=== PATIENT | female | born 1945 | race Caucasian/White ===

== ENCOUNTER 2017-05-28 12:03 | Inpatient (IN) | payer MEDICARE, BC ==
[2017-05-28] MEDS ORDERED: DILTIAZEM 5 MG/ML 5 ML VIAL IVP STA ×2 (12:31→13:32)
[2017-05-28] MEDS ORDERED: IPRATROPIUM-ALBUTEROL 3 ML NEB INHALATION STA (12:33)
--- NOTE | 2017-05-28 12:34 | ED ---
General Adult HPI - General Chief complaint: Shortness of Breath Stated complaint: ANGELICA, swollen feet Time Seen by Provider: 05/28/17 12:26 Source: patient, family, RN notes reviewed Mode of arrival: wheelchair Limitations: no limitations - History of Present Illness Initial comments: Patient is a pleasant 71-year-old female presenting to the emergency department with difficulty in breathing. Symptoms have progressed over weeks. Patient states she was in the hospital weeks ago and believe she may have had fluid on her lungs. Patient does complain of some swelling of her legs which is somewhat new. No chest pain. No palpitations. Patient has no known history of any arrhythmia or atrial fibrillation. Symptoms have progressively worsened since onset. - Related Data Home Medications Medication Instructions Recorded Confirmed Metoprolol Tartrate [Lopressor] 50 mg PO DAILY 12/06/14 05/28/17 amLODIPine [Norvasc] 10 mg PO DAILY 12/06/14 05/28/17 Albuterol Inhaler [Ventolin Hfa 1 - 2 puff INHALATION RT-Q6H PRN 04/30/17 Inhaler] Atorvastatin Calcium [Lipitor] 20 mg PO HS 04/30/17 05/28/17 Calcitriol 0.25 mcg PO SA 04/30/17 05/28/17 Sertraline HCl [Zoloft] 50 mg PO DAILY 04/30/17 05/28/17 Ergocalciferol [Vitamin D2] 50,000 unit PO Q14D 05/28/17 05/28/17 Previous Rx's Medication Instructions Recorded hydrALAZINE HCL [Apresoline] 75 mg PO TID #90 tab 05/02/17 Allergies Allergy/AdvReac Type Severity Reaction Status Date / Time No Known Allergies Allergy Verified 05/28/17 13:16 Review of Systems ROS Statement: Those systems with pertinent positive or pertinent negative responses have been documented in the HPI. ROS Other: All systems not noted in ROS Statement are negative. Constitutional: Denies: fever Eyes: Denies: eye pain ENT: Denies: ear pain Respiratory: Reports: dyspnea Cardiovascular: Denies: chest pain Endocrine: Reports: fatigue Gastrointestinal: Denies: abdominal pain Genitourinary: Denies: dysuria Musculoskeletal: Denies: back pain Skin: Denies: rash Neurological: Denies: weakness Past Medical History Past Medical History: Asthma, COPD, CVA/TIA, Hyperlipidemia, Hypertension, Osteoarthritis (OA), Rheumatoid Arthritis (RA) History of Any Multi-Drug Resistant Organisms: None Reported Past Surgical History: Tonsillectomy Additional Past Surgical History / Comment(s): broken ankle 40 years ago, IUD removal, lumbar steroid injections Past Anesthesia/Blood Transfusion Reactions: No Reported Reaction Past Psychological History: No Psychological Hx Reported Smoking Status: Former smoker Past Alcohol Use History: None Reported Past Drug Use History: None Reported - Past Family History Mother Additional Family Medical History / Comment(s): Mother in her 80s from abdominal aortic aneurysm. Father Family Medical History: Myocardial Infarction ([place]) Additional Family Medical History / Comment(s): Father at age 52 from acute ID. Patient has 1 brother that is healthy. Patient does not have any children. General Exam Limitations: no limitations General appearance: alert Head exam: Present: atraumatic Eye exam: Present: normal appearance, PERRL ENT exam: Present: normal oropharynx Neck exam: Present: normal inspection Respiratory exam: Present: wheezes Cardiovascular Exam: Present: tachycardia, irregular rhythm Expanded Peripheral pulses: 2+: Radial (R), Radial (L), Dorsalis Pedis (R), Dorsalis Pedis (L) GI/Abdominal exam: Present: soft. Absent: tenderness Extremities exam: Present: pedal edema (+3 bilateral). Absent: calf tenderness Neurological exam: Present: alert Psychiatric exam: Present: normal affect, normal mood Skin exam: Present: normal color Course Vital Signs 05/28/17 05/28/17 05/28/17 12:07 12:40 12:45 Temperature 97.5 F L Pulse Rate 148 H 123 H Respiratory 22 24 Rate Blood Pressure 119/78 O2 Sat by Pulse 92 L Oximetry 05/28/17 05/28/17 05/28/17 12:47 12:48 13:39 Temperature Pulse Rate 153 H 133 H 151 H Respiratory 22 20 Rate Blood Pressure 158/100 141/78 O2 Sat by Pulse 100 98 Oximetry 05/28/17 14:24 Temperature Pulse Rate 145 H Respiratory 18 Rate Blood Pressure 159/99 O2 Sat by Pulse 98 Oximetry EKG Findings - EKG Comments: EKG Findings:: A. fib with RVR, rate 178. QRS 92. QT 260. QTC 447. Normal axis. Septal Q waves. Inferior and lateral ST depression. Medical Decision Making - Medical Decision Making Patient reevaluated and resting in bed. Mild improvement. Heart rate between 120 and 150. Cardizem drip increased. Patient updated on results and plan. Case was discussed in detail with Dr. urrutia, who will admit for Dr. Desai. Consults will be placed with pulmonary and cardiology. - Lab Data Result diagrams: 05/28/17 12:30 05/28/17 12:30 Lab Results 05/28/17 05/28/17 05/28/17 Range/Units 12:30 12:30 12:30 WBC 11.2 H (3.8-10.6) k/uL RBC 3.77 L (3.80-5.40) m/uL Hgb 11.1 L (11.4-16.0) gm/dL Hct 36.3 (34.0-46.0) % MCV 96.3 (80.0-100.0) fL MCH 29.5 (25.0-35.0) pg MCHC 30.7 L (31.0-37.0) g/dL RDW 15.1 (11.5-15.5) % Plt Count 430 (150-450) k/uL Neutrophils % 78 % Lymphocytes % 12 % Monocytes % 7 % Eosinophils % 1 % Basophils % 0 % Neutrophils # 8.7 H (1.3-7.7) k/uL Lymphocytes # 1.4 (1.0-4.8) k/uL Monocytes # 0.8 (0-1.0) k/uL Eosinophils # 0.1 (0-0.7) k/uL Basophils # 0.0 (0-0.2) k/uL Hypochromasia Moderate PT (9.0-12.0) sec INR (<1.2) APTT (22.0-30.0) sec Sodium 138 (137-145) mmol/L Potassium 3.4 L (3.5-5.1) mmol/L Chloride 99 (98-107) mmol/L Carbon Dioxide 25 (22-30) mmol/L Anion Gap 14 mmol/L BUN 24 H (7-17) mg/dL Creatinine 1.20 H (0.52-1.04) mg/dL Est GFR (MDRD) Af Amer 54 (>60 ml/min/1.73 sqM) Est GFR (MDRD) Non-Af 44 (>60 ml/min/1.73 sqM) Glucose 159 H (74-99) mg/dL Calcium 9.4 (8.4-10.2) mg/dL Magnesium 1.9 (1.6-2.3) mg/dL Total Bilirubin 0.3 (0.2-1.3) mg/dL AST 34 (14-36) U/L ALT 97 H (9-52) U/L Alkaline Phosphatase 87 (38-126) U/L Total Creatine Kinase 57 (30-135) U/L CK-MB (CK-2) 1.5 (0.0-2.4) ng/mL CK-MB (CK-2) Rel Index 2.6 Troponin I 0.017 (0.000-0.034) ng/mL NT-Pro-B Natriuret Pep pg/mL Total Protein 6.3 (6.3-8.2) g/dL Albumin 3.8 (3.5-5.0) g/dL TSH 0.557 (0.465-4.680) mIU/L Free T4 1.56 (0.78-2.19) ng/dL Free T3 pg/mL 3.5 (2.8-5.3) pg/ml 05/28/17 05/28/17 Range/Units 12:30 12:30 WBC (3.8-10.6) k/uL RBC (3.80-5.40) m/uL Hgb (11.4-16.0) gm/dL Hct (34.0-46.0) % MCV (80.0-100.0) fL MCH (25.0-35.0) pg MCHC (31.0-37.0) g/dL RDW (11.5-15.5) % Plt Count (150-450) k/uL Neutrophils % % Lymphocytes % % Monocytes % % Eosinophils % % Basophils % % Neutrophils # (1.3-7.7) k/uL Lymphocytes # (1.0-4.8) k/uL Monocytes # (0-1.0) k/uL Eosinophils # (0-0.7) k/uL Basophils # (0-0.2) k/uL Hypochromasia PT 10.9 (9.0-12.0) sec INR 1.1 (<1.2) APTT 21.9 L (22.0-30.0) sec Sodium (137-145) mmol/L Potassium (3.5-5.1) mmol/L Chloride (98-107) mmol/L Carbon Dioxide (22-30) mmol/L Anion Gap mmol/L BUN (7-17) mg/dL Creatinine (0.52-1.04) mg/dL Est GFR (MDRD) Af Amer (>60 ml/min/1.73 sqM) Est GFR (MDRD) Non-Af (>60 ml/min/1.73 sqM) Glucose (74-99) mg/dL Calcium (8.4-10.2) mg/dL Magnesium (1.6-2.3) mg/dL Total Bilirubin (0.2-1.3) mg/dL AST (14-36) U/L ALT (9-52) U/L Alkaline Phosphatase (38-126) U/L Total Creatine Kinase (30-135) U/L CK-MB (CK-2) (0.0-2.4) ng/mL CK-MB (CK-2) Rel Index Troponin I (0.000-0.034) ng/mL NT-Pro-B Natriuret Pep 9130 pg/mL Total Protein (6.3-8.2) g/dL Albumin (3.5-5.0) g/dL TSH (0.465-4.680) mIU/L Free T4 (0.78-2.19) ng/dL Free T3 pg/mL (2.8-5.3) pg/ml - Radiology Data Radiology results: image reviewed (Chest x-ray shows cardiomegaly. Right effusion and atelectasis or infiltrate. 3.2 cm right mid lung mass.) Critical Care Time Critical Care Time: Yes Total Critical Care Time: 37 Disposition Clinical Impression: Atrial fibrillation with RVR, CHF (congestive heart failure) Disposition: ADMITTED IP TO THIS [facility] Condition: Serious Referrals: Soren Desai MD [Primary Care Provider] - 1-2 days Decision Time: 14:35
[2017-05-28] MEDS: DILTIAZEM 125 MG in SODIUM CHLORIDE 0.9% 100 ML IV ONE ×2 (12:44→23:14)
[2017-05-28 12:55] LABS: Basophils % (A) 0 %; Eosinophils # (A) 0.1 k/uL (0-0.7); Eosinophils % (A) 1 %; HCT 36.3 % (34.0-46.0); HGB 11.1 gm/dL (11.4-16.0); Hypochromasia Moderate; Lymphocytes # (A) 1.4 k/uL (1.0-4.8); Lymphocytes % (A) 12 %; MCH 29.5 pg (25.0-35.0); MCHC 30.7 g/dL (31.0-37.0); MCV 96.3 fL (80.0-100.0); Mean Platelet Volume 7.4; Monocytes # (A) 0.8 k/uL (0-1.0); Monocytes % (A) 7 %; Neutrophils # (A) 8.7 k/uL (1.3-7.7); Neutrophils % (A) 78 %; Platelet Count 430 k/uL (150-450); RBC 3.77 m/uL (3.80-5.40); RDW 15.1 % (11.5-15.5); WBC 11.2 k/uL (3.8-10.6)
[2017-05-28 13:06] LABS: Albumin 3.8 g/dL (3.5-5.0); Calcium 9.4 mg/dL (8.4-10.2); Magnesium 1.9 mg/dL (1.6-2.3); Potassium 3.4 mmol/L (3.5-5.1); Total Bilirubin 0.3 mg/dL (0.2-1.3); Total Protein 6.3 g/dL (6.3-8.2)
--- NOTE | 2017-05-28 13:08 | XR ---
EXAMINATION TYPE: XR chest 1V portable DATE OF EXAM: 05/28/2017 COMPARISON: Chest x-ray April 30, 2017. HISTORY: Shortness of breath TECHNIQUE: Single AP portable frontal upright view of the chest is obtained. FINDINGS: The osseous structures remain demineralized. There is stable mild cardiomegaly with athero sclerotic aorta. There is chronic emphysematous change with small right pleural effusion and associat ed right basilar atelectasis and/or infiltrate. There is more patchy left basilar atelectasis and/or infiltrate . There is stable 3.2 cm mass periphery right midlung. IMPRESSION: Cardiomegaly and chronic changes with small right pleural effusion and right greater harpreet n left bibasilar atelectasis and/or infiltrate. Stable 3.2 cm right lateral mid lung mass. Underlying neoplasm not excluded. Correlate clinically to determine need for follow-up CT. No significant encinas e from prior x-ray.
[2017-05-28 13:21] LABS: T4, Free (Free Thyroxine) 1.56 ng/dL (0.78-2.19)
[2017-05-28 13:23] LABS: INR 1.1 (<1.2); Partial Thromboplastin Time 21.9 sec (22.0-30.0); Prothrombin Time 10.9 sec (9.0-12.0)
[2017-05-28 13:24] LABS: Creatine Kinase MB 1.5 ng/mL (0.0-2.4); Troponin I 0.017 ng/mL (0.000-0.034)
[2017-05-28] MEDS ORDERED: ASPIRIN 325 MG TAB PO STA (14:39)
[2017-05-28] MEDS ORDERED: HEPARIN SODIUM,PORCINE 5,000 UNIT/ML 1 ML VIAL IV ONE (14:42)
[2017-05-28] MEDS ORDERED: HEPARIN SODIUM,PORCINE 5,000 UNIT/ML 1 ML VIAL IV PRN (14:42)
[2017-05-28] MEDS ORDERED: HEPARIN SOD,PORK IN 0.45% NACL 25,000 UNIT in 0.45% NACL 1 500ML.BAG IV SCH (14:45)
[2017-05-28] MEDS: FUROSEMIDE 10 MG/ML 4 ML VIAL IV SCH (15:10)
--- NOTE | 2017-05-28 15:10 | CT ---
EXAMINATION TYPE: CT chest wo con DATE OF EXAM: 05/28/2017 COMPARISON: NONE HISTORY: Patient complains of dyspnea. Lung mass seen on CXR today. CT DLP: 292.[address] of the chest was performed with lung and mediastinal window settings submitted. The la ck of contrast limits evaluation of the vascular, mediastinal and parenchymal structures including th e upper abdomen. LUNGS: Trapped fluid within the right major fissure compatible with pseudomass. Right-sided pleural e ffusion measuring 3.7 cm AP dimension with the small left-sided effusion measuring 1.6 cm in AP dimen hope. Mild associated compressive atelectasis. Upper lobe emphysematous changes [id number] in d egree. Linear atelectasis or parenchymal scar in the region of the left upper lobe. Groundglass right upper lobe nodular density measuring 4 mm. Several additional nonspecific tiny subpleural nodule see n. MEDIASTINUM/NEELIMA: Thoracic aorta is of normal caliber with limited evaluation given lack of contrast . The heart is enlarged. No evidence for mediastinal mass. No lymph nodes greater than 1cm. UPPER ABDOMEN: Atrophic changes left kidney. Renal vascular calcifications right kidney. OTHER: No significant other abnormality. IMPRESSION: 1. Transient fluid within the right major fissure resulting pseudomass. Bilateral pleural effusions. 2. Basilar compressive atelectasis. 3. Scattered nonspecific nodular densities. Consider follow-up study in 3-4 months.
[2017-05-28] MEDS ORDERED: NITROGLYCERIN OINT 1 INCH/GM PACKET TOPICAL SCH (18:00)
[2017-05-28] MEDS ORDERED: Potassium Replacement Protocol 1 EACH MISC MISCELLANE PRN (19:34)
[2017-05-28] MEDS ORDERED: POTASSIUM CHLORIDE ER 20 MEQ TAB.ER PO SCH (20:00)
--- NOTE | 2017-05-28 20:04 | HP ---
HISTORY AND PHYSICAL DATE OF ADMISSION: 05/28/2017 PRESENTING COMPLAINT: Short of breath. HISTORY OF PRESENTING COMPLAINT: This is a 71-year-old patient whose chronic stable medical conditions include rheumatoid arthritis, hyperlipidemia, hypertension, anxiety, depression. The patient was here in the middle of April with both CHF and COPD exacerbation. Two-D echocardiogram showed preserved LV function. Patient stopped smoking 3 years ago. The patient presents with 2 weeks of increasing shortness of breath, some wheezing, minimal cough. Appetite is good. Denies any fever, lower extremity edema. [place] her heart racing and decided to come in. Patient does use 2 pillows at night. The patient was found to be in congestive heart failure and atrial fibrillation with rapid ventricular rate. REVIEW OF SYSTEMS: CONSTITUTIONAL: Weak and tired. HEENT: None. RESPIRATORY: As above. CARDIOVASCULAR: As above. GASTROINTESTINAL: None. GENITOURINARY: None. MUSCULOSKELETAL: Pains in different joints. DERMATOLOGICAL: None. HEMATOLOGICAL: None. LYMPHATICS: None. PSYCHIATRY: None. NEUROLOGICAL: None. PAST MEDICAL HISTORY: 1. CHF, EF 55% to 60%. 2. COPD. 3. Rheumatoid arthritis. 4. Hyperlipidemia. 5. Hypertension. 6. Anxiety. 7. Depression. PAST SURGICAL HISTORY: 1. Tonsillectomy. 2. Ankle fracture with screws. 3. IUD removal. 4. Lumbar steroid injection. SOCIAL HISTORY: The patient smoked a pack and a half of cigarettes per day; started in 1973, stopped in 2014. Used to drink heavily in the past. . Lives with her . Has a walker and uses it occasionally. FAMILY HISTORY: Mother had myocardial infarction and from abdominal aortic aneurysm. HOME MEDICATIONS: 1. Vitamin D2 50,000 units every 14 days. 2. Calcitriol 0.25 mcg p.o. on Saturdays. 3. Lipitor 20 mg at bedtime. 4. Hydralazine 75 mg p.o. t.i.d. 5. Norvasc 10 mg a day. 6. Zoloft 50 mg a day. 7. Lopressor 50 mg p.o. daily. 8. Ventolin HFA 1 to 2 puffs q.6 p.r.n. ALLERGIES: NONE. PHYSICAL EXAMINATION: VITAL SIGNS ON PRESENTATION: Temperature 97.5 pulse 140, respiration 22, blood pressure 109/78, pulse ox 92% on room air. GENERAL APPEARANCE: Average build. Sitting up, short of breath. EYES: Pupils equal. Conjunctivae normal. HEENT: Oral cavity normal. NECK: JVD raised. raised. Mass not palpable. RESPIRATORY: Effort increased. LUNGS: Diminished breath sounds. CARDIOVASCULAR: Heart sounds irregular. Edema present. ABDOMEN: Soft, nontender. Liver and spleen not palpable. LYMPHATIC: No lymph node palpable in neck or axillae. PSYCHIATRY: Alert and oriented x3. Mood and affect slightly anxious-appearing. NEUROLOGICAL: Pupils equal. Cranial nerves grossly intact. Power and sensation grossly intact. INVESTIGATIONS: White count 11.2, hemoglobin 11.1, potassium 3.4, BUN 24, creatinine 1.20. ProBNP is 9130. CT scan of the chest shows bilateral pleural effusion, scattered nodular densities. Chest x-ray shows and venous prominence. It is an A/P portable film. The patient did have a 2D echo a month ago that showed EF of 55% to 60%. ASSESSMENT: 1. Acute on chronic congestive heart failure exacerbation from diastolic dysfunction; ejection fraction 55% to 60%; from hypertensive heart disease. 2. Hypertensive heart disease. 3. Acute chronic obstructive pulmonary disease exacerbation in an ex-smoker. 4. Atrial fibrillation, new onset, with rapid ventricular rate, present on admission. 5. Chronic nodular changes on the CT scan of the chest; could be granulomas. 6. Chronic rheumatoid arthritis. 7. Hyperlipidemia. 8. Essential hypertension. 9. Anxiety and depression not otherwise specified. PLAN: Patient is on IV heparin, IV Cardizem drip. Will start the patient on nebulized bronchodilators. Other home medications will be resumed. Will hold off beta jil. Can probably use oral Cardizem instead. Consultations made to Cardiology and Pulmonary. Care was discussed with the patient. MMODL / IJN: [id number] /
[2017-05-28] MEDS: methylPREDNISolone SOD SUCCI 40 MG/ML 1 ML VIAL IV SCH (20:25)
[2017-05-28] MEDS: ATORVASTATIN 20 MG TAB PO SCH (20:34)
[2017-05-28] MEDS: BUDESONIDE 1 MG/2 ML NEBU INHALATION SCH (20:58)
[2017-05-28] MEDS ORDERED: METOPROLOL TARTRATE 25 MG TAB PO SCH (21:00)
[2017-05-28] MEDS ORDERED: ALPRAZolam 0.25 MG TAB PO STA (22:02)
[2017-05-28] MEDS: MELATONIN 3 MG TABLET PO SCH (22:17)
[2017-05-29] MEDS: methylPREDNISolone SOD SUCCI 40 MG/ML 1 ML VIAL IV SCH ×2 (03:27→08:03)
[2017-05-29 04:04] LABS: Basophils % (A) 0 %; Eosinophils % (A) 0 %; HCT 33.3 % (34.0-46.0); HGB 9.9 gm/dL (11.4-16.0); Hypochromasia Moderate; Lymphocytes # (A) 0.4 k/uL (1.0-4.8); Lymphocytes % (A) 5 %; MCH 28.8 pg (25.0-35.0); MCHC 29.8 g/dL (31.0-37.0); MCV 96.5 fL (80.0-100.0); Monocytes # (A) 0.2 k/uL (0-1.0); Monocytes % (A) 3 %; Neutrophils # (A) 7.6 k/uL (1.3-7.7); Neutrophils % (A) 92 %; Platelet Count 392 k/uL (150-450); RBC 3.45 m/uL (3.80-5.40); RDW 15.3 % (11.5-15.5); WBC 8.3 k/uL (3.8-10.6)
[2017-05-29] MEDS: INSULIN ASPART 100 UNIT/ML 1 ML 10 ML VIAL SQ SCH ×4 (06:14→21:40)
[2017-05-29 06:15] LABS: Glucose,Whole Blood 130 mg/dL (75-99)
[2017-05-29] MEDS: DILTIAZEM 125 MG in SODIUM CHLORIDE 0.9% 100 ML IV SCH ×2 (06:24→15:02)
[2017-05-29] MEDS: FUROSEMIDE 10 MG/ML 4 ML VIAL IV SCH ×3 (08:03→21:41)
[2017-05-29 08:31] LABS: Calcium 8.7 mg/dL (8.4-10.2); Magnesium 1.8 mg/dL (1.6-2.3); Potassium 4.2 mmol/L (3.5-5.1)
[2017-05-29] MEDS: BUDESONIDE 1 MG/2 ML NEBU INHALATION SCH ×2 (08:31→20:26)
[2017-05-29] MEDS ORDERED: ASPIRIN 325 MG TAB PO SCH (09:00)
--- NOTE | 2017-05-29 09:18 | P.CRDCN ---
History of Present Illness Consult date: 05/29/17 Requesting physician: Steve Hudson Reason for Consult (text): AF w/RVR, CHF Chief complaint: shortness of breath, lower extremity edema History of present illness: This is a pleasant 71-year-old female patient who follows with Dr. Solis in the office. Has a history of asthma, hypertension and recent admission for acute on chronic diastolic congestive heart failure. Presented this admission with complaints of worsening shortness of breath over about a week with lower extremity edema. Upon presentation she was found to be in atrial fibrillation with rapid ventricular response and was placed on a Cardizem drip heparin drip. BNP was quite elevated at 9130. Labs show normal thyroid function and negative troponins at 0.016, 0.017 and less than 0.012 and a BUN of 22 and creatinine 1.18. In reviewing her previous chart, echocardiogram showed normal LV systolic function with an ejection fraction of 55-60%. Vital signs show pressure initially high however fairly well controlled over the last several hours. Heart rates are poorly controlled on Cardizem 15 mg an hour. Upon examination, patient remainsshort of breath and complains of lower extremity edema. She has no complaints of dizziness or lightheadedness. Past Medical History Past Medical History: Asthma, CVA/TIA, Hyperlipidemia, Hypertension, Osteoarthritis (OA) Additional Past Medical History / Comment(s): ddd, copd/chf was previously charted but pt stated never told she had either.cva 2008 no residual problems. History of Any Multi-Drug Resistant Organisms: None Reported Past Surgical History: Tonsillectomy Additional Past Surgical History / Comment(s): broken ankle 40 years ago has [address], IUD removal, lumbar steroid injections Past Anesthesia/Blood Transfusion Reactions: No Reported Reaction Additional Past Anesthesia/Blood Transfusion Reaction / Comment(s): past blood transfusions-no reaction Smoking Status: Former smoker - Past Family History Mother Additional Family Medical History / Comment(s): Mother in her 80s from abdominal aortic aneurysm. Father Family Medical History: Myocardial Infarction (NC) Additional Family Medical History / Comment(s): Father at age 52 from acute NC. Patient has 1 brother that is healthy. Patient does not have any children. Medications and Allergies Home Medications Medication Instructions Recorded Confirmed Type Metoprolol Tartrate [Lopressor] 50 mg PO DAILY 12/06/14 05/28/17 History amLODIPine [Norvasc] 10 mg PO DAILY 12/06/14 05/28/17 History Albuterol Inhaler [Ventolin Hfa 1 - 2 puff INHALATION RT-Q6H PRN 04/30/17 History Inhaler] Atorvastatin Calcium [Lipitor] 20 mg PO HS 04/30/17 05/28/17 History Calcitriol 0.25 mcg PO SA 04/30/17 05/28/17 History Sertraline HCl [Zoloft] 50 mg PO DAILY 04/30/17 05/28/17 History hydrALAZINE HCL [Apresoline] 75 mg PO TID #90 tab 05/02/17 05/28/17 Rx Ergocalciferol [Vitamin D2] 50,000 unit PO Q14D 05/28/17 05/28/17 History Allergies Allergy/AdvReac Type Severity Reaction Status Date / Time No Known Allergies Allergy Verified 05/28/17 13:16 Physical Exam Vitals: Vital Signs Temp Pulse Pulse Resp BP BP BP 05/29/17 08:43 100 05/29/17 08:34 100 05/29/17 07:59 97 F L 108 H 20 05/29/17 04:00 18 05/29/17 03:38 97.2 F L 152 H 18 129/78 05/28/17 23:56 97 F L 150 H 18 130/80 05/28/17 21:08 100 05/28/17 20:59 114 H 05/28/17 20:00 97.3 F L 145 H 18 152/87 05/28/17 16:00 94 20 05/28/17 15:45 97.2 F L 94 16 155/91 05/28/17 15:15 97.4 F L 144 H 18 165/88 05/28/17 14:24 145 H 18 159/99 05/28/17 13:39 151 H 20 141/78 05/28/17 12:48 133 H 05/28/17 12:47 153 H 22 158/100 05/28/17 12:45 24 05/28/17 12:40 123 H 05/28/17 12:07 97.5 F L 148 H 22 119/78 BP Pulse Ox 05/29/17 08:43 05/29/17 08:34 97 05/29/17 07:59 139/69 97 05/29/17 04:00 05/29/17 03:38 97 05/28/17 23:56 97 05/28/17 21:08 05/28/17 20:59 99 05/28/17 20:00 99 05/28/17 16:00 05/28/17 15:45 94 L 05/28/17 15:15 97 05/28/17 14:24 98 05/28/17 13:39 98 05/28/17 12:48 05/28/17 12:47 100 05/28/17 12:45 05/28/17 12:40 05/28/17 12:07 92 L Intake and Output 05/28/17 05/29/17 05/29/17 22:59 06:59 14:59 Intake Total 141.000 213 180 Output Total 1999 Balance 141.000 213 -1820 Intake: Intake, IV Titration 141.000 213 Amount Diltiazem 125 mg In 39.667 73 Sodium Chloride 0.9% 100 ml @ 10 MG/HR 10 mls/hr IV .[id number] ONE Rx#: [id number] Heparin Sod,Pork in 0.45% 101.333 140 NaCl 25,000 unit In 0.45 % NaCl 1 500ml.bag @ 12 UNITS/KG/HR 16 mls/hr IV .Q24H [facility] Rx#:[id number] Oral 180 Output: Urine 2000 Other: # Voids 1 Weight 72.7 kg PHYSICAL EXAMINATION: HEENT: Head is atraumatic, normocephalic. Pupils equal, round. Neck is supple. There is elevated jugular venous pressure. HEART EXAMINATION: Heart sounds irregularly irregular, tachycardic, S1 and S2 normal. No murmur or gallop heard. CHEST EXAMINATION: Lungs wheezing throughout. No chest wall tenderness is noted on palpation or with deep breathing. ABDOMEN: Soft, nontender. Bowel sounds are heard. No organomegaly noted. EXTREMITIES: 2+ peripheral pulses with evidence of +2 peripheral edema and no calf tenderness noted. NEUROLOGIC patient is awake, alert and oriented x3. . Results 05/29/17 03:47 05/29/17 03:47 Cardiac Enzymes 05/28/17 05/28/17 05/28/17 Range/Units 12:30 12:30 21:02 AST 34 (14-36) U/L CK-MB (CK-2) 1.5 (0.0-2.4) ng/mL Troponin I 0.017 0.016 (0.000-0.034) ng/mL 05/29/17 Range/Units 03:47 AST (14-36) U/L CK-MB (CK-2) (0.0-2.4) ng/mL Troponin I <0.012 (0.000-0.034) ng/mL Coagulation 05/28/17 05/28/17 05/29/17 Range/Units 12:30 21:02 03:47 PT 10.9 (9.0-12.0) sec APTT 21.9 L 37.4 H 51.5 H (22.0-30.0) sec CBC 05/28/17 05/29/17 Range/Units 12:30 03:47 WBC 11.2 H 8.3 (3.8-10.6) k/uL RBC 3.77 L 3.45 L (3.80-5.40) m/uL Hgb 11.1 L 9.9 L (11.4-16.0) gm/dL Hct 36.3 33.3 L (34.0-46.0) % Plt Count 430 392 (150-450) k/uL Comprehensive Metabolic Panel 05/28/17 05/29/17 Range/Units 12:30 03:47 Sodium 138 136 L (137-145) mmol/L Potassium 3.4 L 4.2 (3.5-5.1) mmol/L Chloride 99 101 (98-107) mmol/L Carbon Dioxide 25 27 (22-30) mmol/L BUN 24 H 22 H (7-17) mg/dL Creatinine 1.20 H 1.18 H (0.52-1.04) mg/dL Glucose 159 H 143 H (74-99) mg/dL Calcium 9.4 8.7 (8.4-10.2) mg/dL AST 34 (14-36) U/L ALT 97 H (9-52) U/L Alkaline Phosphatase 87 (38-126) U/L Total Protein 6.3 (6.3-8.2) g/dL Albumin 3.8 (3.5-5.0) g/dL Current Medications Generic Name Dose Route Start Last Admin Trade Name Kalpana PRN Reason Stop Dose Admin Aspirin 325 mg 05/29/17 09:00 05/29/17 08:05 Aspirin PO 325 mg DAILY SIMON Administration Atorvastatin Calcium 20 mg 05/28/17 21:00 05/28/17 20:34 Lipitor PO 20 mg HS SIMON Administration Budesonide 1 mg 05/28/17 20:00 05/29/17 08:31 Pulmicort INHALATION 1 mg RT-BID SIMON Administration Furosemide 40 mg 05/28/17 15:00 05/29/17 08:03 Lasix IV 40 mg Q8HR SIMON Administration Heparin Sodium (Porcine) 0 unit 05/28/17 14:42 Heparin IV PER PROTOCOL PRN Low PTT Protocol Heparin Sodium/Sodium Chloride 500 mls @ 16 mls/hr 05/28/17 14:45 05/29/17 04 :34 25,000 unit/ Sodium Chloride IV 15 units/kg/hr .Q24H SIMON 20 mls/hr Protocol Titration 12 UNITS/KG/HR Diltiazem HCl 125 mg/ Sodium 125 mls @ 10 mls/hr 05/29/17 05:15 05/29/17 06: 24 Chloride IV 10 mg/hr .[id number] SIMON 10 mls/hr 10 MG/HR Administration Insulin Aspart 0 unit 05/29/17 07:30 05/29/17 06:14 Novolog SQ Not Given ACHS [facility] Protocol Melatonin 3 mg 05/28/17 22:15 05/28/17 22:17 Melatonin PO 3 mg HS SIMON Administration Methylprednisolone Sodium Succinate 40 mg 05/28/17 20:00 05/29/17 08:03 Solu-Medrol IV 40 mg Q8HR SIMON Administration Miscellaneous Information 1 each 05/28/17 19:34 Potassium Per Protocol MISCELLANE DAILY PRN Per Protocol Protocol Sertraline HCl 50 mg 05/29/17 09:00 Zoloft PO DAILY SIMON Sodium Chloride 10 ml 05/28/17 21:00 05/29/17 08:04 Saline Flush IV 10 ml BID SIMON Administration Intake and Output 05/28/17 05/29/17 05/29/17 22:59 06:59 14:59 Intake Total 141.000 213 180 Output Total 1999 Balance 141.000 213 -1820 Intake: Intake, IV Titration 141.000 213 Amount Diltiazem 125 mg In 39.667 73 Sodium Chloride 0.9% 100 ml @ 10 MG/HR 10 mls/hr IV .[id number] [facility] Rx#: [id number] Heparin Sod,Pork in 0.45% 101.333 140 NaCl 25,000 unit In 0.45 % NaCl 1 500ml.bag @ 12 UNITS/KG/HR 16 mls/hr IV .Q24H [facility] Rx#:[id number] Oral 180 Output: Urine 2000 Other: # Voids 1 Weight 72.7 kg 05/29/17 03:47 05/29/17 03:47 EKG Interpretations (text) Atrial Fibrillation with rapid ventricular response Assessment and Plan Assessment: #1 new onset atrial fibrillation with rapid ventricular response, likely paroxysmal #2 acute on chronic diastolic congestive heart failure, recent echocardiogram shows normal LV systolic function #3 asthma #4 hypertension Plan: From cardiology's perspective, continue IV Lasix and IV Cardizem drip. We will add amiodarone drip. We will check coverage for Eliquis and initiate if she has adequate coverage. We will is resume metoprolol 25 mg by mouth twice a day. Further recommendations to follow. KNOT BORER note has been reviewed, I agree with a documented findings and plan of care. Patient was seen and examined.
[2017-05-29] MEDS ORDERED: DEXTROSE 5% IN WATER 100 ML with AMIODARONE 150 MG IV ONE (09:32)
--- NOTE | 2017-05-29 09:47 | P.PN ---
Progress Note - Text This is an addendum to the dictated cardiology consultation. The patient has a history of hypertension, bronchial asthma who presents with symptoms of severe progressive dyspnea for the last week or so with weight gain and peripheral edema. On presentation she was noted to be in atrial fibrillation with a rapid ventricle response. She is unaware of the arrhythmia and when she was in the hospital in April 2017 she was in sinus mechanism. Patient has a normal systolic function by echocardiography in April. She has no symptoms of chest discomfort or documented obstructive coronary artery disease. She has mild cough but no fever. She denies any dizziness or palpitations or syncope. Her physical examination shows decrease air exchange with scattered wheezes, irregularly irregular heart rate and rhythm and 2+ peripheral edema. The patient presents with new onset atrial fibrillation since April of last year with a rapid ventricle response and symptoms of CHF was preserved systolic function. I will initiate treatment with IV amiodarone with the hope to control her ventricle rate and maybe convert her to sinus. We will initiate oral anticoagulation and continue IV diuresis. Depending on her progress further recommendations will be made. Thank you for this consult we will follow with you.
[2017-05-29] MEDS: APIXABAN 5 MG TAB PO SCH ×2 (11:24→21:06)
[2017-05-29] MEDS: SERTRALINE 50 MG TAB PO SCH (11:24)
[2017-05-29] MEDS: AMIODARONE 450 MG in DEXTROSE 5% IN WATER 250 ML IV SCH ×4 (11:55→21:01)
--- NOTE | 2017-05-29 12:12 | P.CNPUL ---
History of Present Illness Consult date: 05/29/17 Requesting physician: Steve Hudson Reason for consult: COPD, pleural effusion Chief complaint: difficulty in breathing History of present illness: this is a 71-year-old female with history of COPD, remote heavy smoking history , however she quit smoking a few years back. Patient used to be at least a 60- pack-year smoker, maintained normally on Ventolin for her underlying presumptive COPD by her primary care physician.patient presented to the ER yesterday with 1 week history of increased shortness of breath, nonproductive cough, increased swelling, some wheezing, but no fever no chills no hemoptysis no chest pain.upon presentation, the patient was noted to be in atrial fibrillation with RVR, and her chest x-ray showed evidence of bilateral pleural effusions, and fluids as noted in the right major fissure, looks like a pseudotumor. There was also evidence of bibasilar compressive atelectasis. And some bilateral nonspecific nodular densities. Her pro BNP level was elevated.CBC was normal. Basic metabolic profile was normal. Creatinine 1.20. Patient was placed on Cardizem drip and on heparin, she was also diuresed, feeling much better by the time I evaluated the patient this morning. Presently no headache no blurred vision no dizziness, no chest pain, denies any palpitations, no nausea no vomiting no abdominal pain no melena no hematemesis is no dysuria and no frequency no urgency. Review of Systems 14 point review of systems were obtained. Refer to pertinent positives and negatives as noted in HPI. Past Medical History Past Medical History: Asthma, CVA/TIA, Hyperlipidemia, Hypertension, Osteoarthritis (OA) Additional Past Medical History / Comment(s): ddd, copd/chf was previously charted but pt stated never told she had either.cva 2007 no residual problems. History of Any Multi-Drug Resistant Organisms: None Reported Past Surgical History: Tonsillectomy Additional Past Surgical History / Comment(s): broken ankle 40 years ago has [address], IUD removal, lumbar steroid injections Past Anesthesia/Blood Transfusion Reactions: No Reported Reaction Additional Past Anesthesia/Blood Transfusion Reaction / Comment(s): past blood transfusions-no reaction Smoking Status: Former smoker - Past Family History Mother Additional Family Medical History / Comment(s): Mother in her 80s from abdominal aortic aneurysm. Father Family Medical History: Myocardial Infarction (IA) Additional Family Medical History / Comment(s): Father at age 52 from acute IA. Patient has 1 brother that is healthy. Patient does not have any children. Medications and Allergies Home Medications Medication Instructions Recorded Confirmed Type Metoprolol Tartrate [Lopressor] 50 mg PO DAILY 12/06/14 05/28/17 History amLODIPine [Norvasc] 10 mg PO DAILY 12/06/14 05/28/17 History Albuterol Inhaler [Ventolin Hfa 1 - 2 puff INHALATION RT-Q6H PRN 04/30/17 History Inhaler] Atorvastatin Calcium [Lipitor] 20 mg PO HS 04/30/17 05/28/17 History Calcitriol 0.25 mcg PO SA 04/30/17 05/28/17 History Sertraline HCl [Zoloft] 50 mg PO DAILY 04/30/17 05/28/17 History hydrALAZINE HCL [Apresoline] 75 mg PO TID #90 tab 05/02/17 05/28/17 Rx Ergocalciferol [Vitamin D2] 50,000 unit PO Q14D 05/28/17 05/28/17 History Allergies Allergy/AdvReac Type Severity Reaction Status Date / Time No Known Allergies Allergy Verified 05/28/17 13:16 Physical Exam Vitals: Vital Signs Temp Pulse Pulse Resp BP BP BP 05/29/17 11:57 113 H 05/29/17 11:53 123 H 05/29/17 11:47 124 H 05/29/17 11:46 129 H 05/29/17 11:38 98.1 F 128 H 20 05/29/17 08:43 100 05/29/17 08:34 100 05/29/17 08:00 108 H 20 05/29/17 07:59 97 F L 108 H 20 05/29/17 04:00 18 05/29/17 03:38 97.2 F L 152 H 18 129/78 05/28/17 23:56 97 F L 150 H 18 130/80 05/28/17 21:08 100 05/28/17 20:59 114 H 05/28/17 20:00 97.3 F L 145 H 18 152/87 05/28/17 16:00 94 20 05/28/17 15:45 97.2 F L 94 16 155/91 05/28/17 15:15 97.4 F L 144 H 18 165/88 05/28/17 14:24 145 H 18 159/99 05/28/17 13:39 151 H 20 141/78 05/28/17 12:48 133 H 05/28/17 12:47 153 H 22 158/100 05/28/17 12:45 24 05/28/17 12:40 123 H 05/28/17 12:07 97.5 F L 148 H 22 119/78 BP Pulse Ox 05/29/17 11:57 148/109 05/29/17 11:53 148/93 05/29/17 11:47 147/76 05/29/17 11:46 146/82 05/29/17 11:38 149/90 98 05/29/17 08:43 05/29/17 08:34 97 05/29/17 08:00 05/29/17 07:59 139/69 97 05/29/17 04:00 05/29/17 03:38 97 05/28/17 23:56 97 05/28/17 21:08 05/28/17 20:59 99 05/28/17 20:00 99 05/28/17 16:00 05/28/17 15:45 94 L 05/28/17 15:15 97 05/28/17 14:24 98 05/28/17 13:39 98 05/28/17 12:48 05/28/17 12:47 100 05/28/17 12:45 05/28/17 12:40 05/28/17 12:07 92 L Intake and Output 05/28/17 05/29/17 05/29/17 22:59 06:59 14:59 Intake Total 141.000 213 180 Output Total 1999 Balance 141.000 213 -1820 Intake: Intake, IV Titration 141.000 213 Amount Diltiazem 125 mg In 39.667 73 Sodium Chloride 0.9% 100 ml @ 10 MG/HR 10 mls/hr IV .[id number] [facility] Rx#: [id number] Heparin Sod,Pork in 0.45% 101.333 140 NaCl 25,000 unit In 0.45 % NaCl 1 500ml.bag @ 12 UNITS/KG/HR 16 mls/hr IV .Q24H [facility] Rx#:[id number] Oral 180 Output: Urine 2000 Other: Voiding Method Bedside Commode # Voids 1 # Bowel Movements 1 Weight 72.7 kg Physical Exam: Revealed a 71-year-old female in no distress. HEENT:[Neck is supple.] [No neck masses.] [No thyromegaly.] [No JVD.] Chest: crackles at the bases, some wheezing noted on forced expiratory maneuver only.] Cardiac Exam: irregular irregular rhythm[Normal S1 and S2, no S3 gallop, no murmur.] Abdomen: [Soft, nontender, no megaly, no rebound, no guarding, normal bowel sounds.] Extremities: [No clubbing, 2+ bipedal edema, no cyanosis.]good distal pulses bilaterally. Neurological Exam: [No focal neurologic deficit.] lymphatics: No lymphadenopathy. Psychiatric: Slightly anxious, normal mood and affect, normal mental status examination. Results - Laboratory Findings CBC and BMP: 05/29/17 03:47 05/29/17 03:47 PT/INR, D-dimer PT 10.9 sec (9.0-12.0) 05/28/17 12:30 INR 1.1 (<1.2) 05/28/17 12:30 Abnormal lab findings: Abnormal Labs 05/28/17 05/28/17 05/28/17 12:30 12:30 12:30 WBC 11.2 H RBC 3.77 L Hgb 11.1 L Hct MCHC 30.7 L Neutrophils # 8.7 H Lymphocytes # APTT 21.9 L Sodium Potassium 3.4 L BUN 24 H Creatinine 1.20 H Glucose 159 H POC Glucose (mg/dL) ALT 97 H 05/28/17 05/29/17 05/29/17 21:02 03:47 03:47 WBC RBC 3.45 L Hgb 9.9 L Hct 33.3 L MCHC 29.8 L Neutrophils # Lymphocytes # 0.4 L APTT 37.4 H 51.5 H Sodium Potassium BUN Creatinine Glucose POC Glucose (mg/dL) ALT 05/29/17 05/29/17 03:47 06:13 WBC RBC Hgb Hct MCHC Neutrophils # Lymphocytes # APTT Sodium 136 L Potassium BUN 22 H Creatinine 1.18 H Glucose 143 H POC Glucose (mg/dL) 130 H ALT - Diagnostic Findings Chest x-ray: image reviewed CT scan - chest: image reviewed (as noted in HPI. Agree with reading as per radiology.) Assessment and Plan Assessment: impression: 1 acute on chronic diastolic congestive heart failure, recent echocardiogram showed good LV function. 2 new onset atrial fibrillation with RVR, patient is now on Cardizem and heparin. Rate seems to be better controlled. 3 history of COPD, severity of which is not clear, patient has been a heavy smoker over the years, must have outpatient follow-up, in the meantime continue updrafts in the form of albuterol and Atrovent. 4 right major fissure pseudotumor, strongly doubt malignancy. 5 nonspecific nodular densities in both lungs, repeat CT of the chest in 4 months on outpatient basis. 6 history of benign essential hypertension. Recommendation: Agree with the present treatment plan,continue updrafts, continue diuretics, continue Cardizem,will cut down the dose of Solu-Medrol, and since the presentation is mostly cardiac in nature.we'll continue to follow , we'll arrange for outpatient follow-up regarding her underlying COPD. Time with Patient: Greater than 30
[2017-05-29 12:23] LABS: Glucose,Whole Blood 152 mg/dL (75-99)
[2017-05-29] MEDS: METOPROLOL TARTRATE 25 MG TAB PO SCH ×2 (12:34→21:08)
[2017-05-29 14:51] VITALS: BMI 26.6
[2017-05-29] MEDS: ALBUTEROL NEBULIZED 2.5 MG/3 ML INHALATION SCH ×2 (16:27→20:28)
[2017-05-29 16:39] LABS: Glucose,Whole Blood 157 mg/dL (75-99)
--- NOTE | 2017-05-29 17:10 | P.PN ---
Progress Note - Text Progress Note Date: 05/29/17 DATE OF SERVICE: 05/29/2017 PRESENTING COMPLAINT: Shortness of breath HISTORY OF PRESENT ILLNESS: 71-year-old female presented with 2 weeks of increasing shortness of breath some wheezing minimal cough, does not have any fever or lower extremity edema, felt her heart racing and decided to come in. Uses 2 pillows at night. Found to be in congestive heart failure with atrial fibrillation with rapid ventricular rate admitted for the same. Placed on a Cardizem drip and heparin drip. INTERVAL HISTORY: 05/29/2017: Lying in bed appears mildly anxious, IV Cardizem continues remains in atrial fibrillation rate in the 1 teens to 120s. Patient has not yet converted. Has a cough with shortness of breath with minimal exertion. Up with assistance, tolerating her diet eating between 50 and 75% of her meals, last BM prior to admission. REVIEW OF SYSTEMS: Done for constitutional ,cardiovascular, GI, pulmonary with relevant findings as above. CURRENT MEDICATIONS Albuterol sulfate nebulized, amiodarone IV, Apixaban, Lipitor, Pulmicort, diltiazem, Lasix, insulin per sliding scale, melatonin, Lopressor, potassium replacement protocol, Zoloft. PHYSICAL EXAM VITAL SIGNS: Temperature 98.1, pulse 128, respiratory rate 20, blood pressure 149/90, oxygen saturation 98% on 2 L GENERAL APPEARANCE: Lying in bed, mildly anxious appearing. HEENT: Normocephalic, Pupils equal. Conjunctiva normal. JVD raised. Mass not palpable.: RESPIRATORY: Respiratory effort crease. Lungs diminished to auscultation. CARDIOVASCULAR: First and second sounds normal. Mild edema. ABDOMEN: Soft. Liver and spleen not palpable. No tenderness. No mass palpable. PSYCHIATRY: Alert and oriented x3. Mood and affect mildly anxious. INVESTIGATIONS: Hemoglobin 9.9, sodium 136, BUN 22, creatinine 1.18, Accu-Cheks noted. ASSESSMENT: -Acute on chronic congestive heart failure exacerbation from diastolic dysfunction, ejection fraction 55-60%, from hypertensive heart disease. -Hypertensive heart disease. -Acute chronic obstructive pulmonary disease exacerbation and an ex-smoker. -Atrial fibrillation, new onset, with rapid ventricular rate, present on admission. -Chronic nodular changes on computed tomography scan of the chest could be granulomas -Chronic rheumatoid arthritis. -Hyperlipidemia. -Essential hypertension. -Anxiety and depression not otherwise specified. PLAN: Continue IV Cardizem, amiodarone, IV Lasix as well as nebulized bronchodilators and steroids which will be reduced due to presentation is mostly cardiac. Oral anticoagulation initiated today. Plan of care discussed at the bedside with patient, she is agreeable. We'll follow closely. 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 Hudson
[2017-05-29 20:59] LABS: Glucose,Whole Blood 164 mg/dL (75-99)
[2017-05-29] MEDS: ATORVASTATIN 20 MG TAB PO SCH (21:06)
[2017-05-29] MEDS: MELATONIN 3 MG TABLET PO SCH (21:09)
[2017-05-29] MEDS ORDERED: METOPROLOL TARTRATE 25 MG TAB PO STA (21:38)
--- NOTE | 2017-05-29 22:35 | PN ---
PROGRESS NOTE DATE OF SERVICE: 05/29/2017 ATTENDING NOTE: Patient seen and examined by me. I discussed with my nurse practitioner, Dondesmond. Like yesterday, patient is still a little bit short of breath. Remains on IV Cardizem. Heart rate is in the 120s this morning. EXAMINATION: Temperature 98.1, heart rate 120, blood pressure 149/90, pulse ox 98% on 2L. CARDIOVASCULAR: Heart sounds irregular. LUNGS: Decreased breath sounds. ASSESSMENT: 1. Atrial fibrillation, uncontrolled. 2. Acute congestive heart failure exacerbation. PLAN: Patient will be started on IV amiodarone. Remains on IV Cardizem and IV Lasix for the CHF and atrial fibrillation are uncontrolled. Care was discussed the patient and family at the bedside. MMODL / IJN: [id number] /
[2017-05-30] MEDS: DILTIAZEM 125 MG in SODIUM CHLORIDE 0.9% 100 ML IV SCH ×4 (01:17→17:27)
[2017-05-30] MEDS: AMIODARONE 450 MG in DEXTROSE 5% IN WATER 250 ML IV SCH ×4 (01:19→21:06)
[2017-05-30 06:07] LABS: Basophils % (A) 0 %; Eosinophils % (A) 0 %; HCT 33.1 % (34.0-46.0); Hypochromasia Marked; Lymphocytes # (A) 0.6 k/uL (1.0-4.8); Lymphocytes % (A) 4 %; MCH 28.9 pg (25.0-35.0); MCHC 30.1 g/dL (31.0-37.0); MCV 95.8 fL (80.0-100.0); Mean Platelet Volume 7.7; Monocytes # (A) 0.9 k/uL (0-1.0); Monocytes % (A) 7 %; Neutrophils % (A) 86 %; Platelet Count 414 k/uL (150-450); RBC 3.45 m/uL (3.80-5.40); RDW 15.2 % (11.5-15.5); WBC 12.8 k/uL (3.8-10.6)
[2017-05-30 06:26] LABS: Calcium 9.1 mg/dL (8.4-10.2); Potassium 4.2 mmol/L (3.5-5.1)
[2017-05-30 06:31] LABS: Glucose,Whole Blood 131 mg/dL (75-99)
[2017-05-30] MEDS: INSULIN ASPART 100 UNIT/ML 1 ML 10 ML VIAL SQ SCH ×4 (06:35→20:55)
[2017-05-30] MEDS: BUDESONIDE 1 MG/2 ML NEBU INHALATION SCH ×2 (08:31→20:54)
[2017-05-30] MEDS: ALBUTEROL NEBULIZED 2.5 MG/3 ML INHALATION SCH ×4 (08:31→20:54)
[2017-05-30] MEDS: APIXABAN 5 MG TAB PO SCH ×2 (09:26→21:05)
[2017-05-30] MEDS: FUROSEMIDE 10 MG/ML 4 ML VIAL IV SCH ×3 (09:26→21:07)
[2017-05-30] MEDS: SERTRALINE 50 MG TAB PO SCH (09:27)
[2017-05-30] MEDS: METOPROLOL TARTRATE 25 MG TAB PO SCH ×3 (09:27→21:04)
--- NOTE | 2017-05-30 10:00 | P.PN ---
Subjective Progress Note Date: 05/30/17 Principal diagnosis: Acute on chronic diastolic congestive heart failure this is a 71-year-old female with history of COPD, remote heavy smoking history , however she quit smoking a few years back. Patient used to be at least a 60- pack-year smoker, maintained normally on Ventolin for her underlying presumptive COPD by her primary care physician.patient presented to the ER yesterday with 1 week history of increased shortness of breath, nonproductive cough, increased swelling, some wheezing, but no fever no chills no hemoptysis no chest pain.upon presentation, the patient was noted to be in atrial fibrillation with RVR, and her chest x-ray showed evidence of bilateral pleural effusions, and fluids as noted in the right major fissure, looks like a pseudotumor. There was also evidence of bibasilar compressive atelectasis. And some bilateral nonspecific nodular densities. Her pro BNP level was elevated.CBC was normal. Basic metabolic profile was normal. Creatinine 1.20. Patient was placed on Cardizem drip and on heparin, she was also diuresed, feeling much better by the time I evaluated the patient this morning. Presently no headache no blurred vision no dizziness, no chest pain, denies any palpitations, no nausea no vomiting no abdominal pain no melena no hematemesis is no dysuria and no frequency no urgency. Reevaluated today on 05/30/2017, patient remains in A. fib, presently on amiodarone and Cardizem. Feeling better, less shortness of breath, no cough no wheezing, continues to have significant swelling in her lower extremities. WBC count is 12.8 hemoglobin is 10 electrolytes are normal BUN is 30 creatinine 1.30 , slightly worse since admission. No chest x-ray was done today. ET of the chest which was done on admission was reviewed again Objective - Vital Signs Vital signs: Vital Signs Temp 96.6 F L 05/30/17 00:00 Pulse 100 05/30/17 08:50 Resp 12 05/30/17 04:00 BP 134/77 05/30/17 00:00 Pulse Ox 97 05/30/17 00:00 Intake & Output 05/29/17 05/30/17 05/30/17 18:59 06:59 18:59 Intake Total 1284.296 320.755 30.5 Output Total 1999 1999 Balance -715.704 -1679.245 30.5 Weight 72.7 kg 71.5 kg Intake: IV 385 Amiodarone 450 mg In 165 Dextrose 5% in Water 250 ml @ 1 MG/MIN 34.53 mls/ hr IV .Q7H31M [facility] Rx#: [id number] Dextrose 5% in Water 100 100 ml @ 618 mls/hr IV .Q10M ONE with Amiodarone 150 mg Rx#:[id number] Diltiazem 125 mg In 120 Sodium Chloride 0.9% 100 ml @ 10 MG/HR 10 mls/hr IV .[id number] [facility] Rx#: [id number] Intake, IV Titration 303.296 320.755 30.5 Amount Amiodarone 450 mg In 216.963 116.255 Dextrose 5% in Water 250 ml @ 1 MG/MIN 34.53 mls/ hr IV .Q7H31M [facility] Rx#: [id number] Diltiazem 125 mg In 86.333 204.5 30.5 Sodium Chloride 0.9% 100 ml @ 10 MG/HR 10 mls/hr IV .[id number] [facility] Rx#: [id number] Oral 596 Output: Urine 1999 1999 Other: Voiding Method Bedside Commode Bedside Commode # Voids 1 3 # Bowel Movements 1 1 - Exam Physical Exam: Revealed a 71-year-old female in no distress. HEENT:[Neck is supple.] [No neck masses.] [No thyromegaly.] [No JVD.] Chest: crackles at the bases, some wheezing noted on forced expiratory maneuver only.] Cardiac Exam: irregular irregular rhythm[Normal S1 and S2, no S3 gallop, no murmur.] Abdomen: [Soft, nontender, no megaly, no rebound, no guarding, normal bowel sounds.] Extremities: [No clubbing, 2+ bipedal edema, no cyanosis.]good distal pulses bilaterally. Neurological Exam: [No focal neurologic deficit.] lymphatics: No lymphadenopathy. Psychiatric: Slightly anxious, normal mood and affect, normal mental status examination. - Labs CBC & Chem 7: 05/30/17 05:33 05/30/17 05:33 Labs: Abnormal Lab Results - Last 24 Hours (Table) 05/29/17 05/29/17 05/29/17 Range/Units 11:38 16:37 20:57 WBC (3.8-10.6) k/uL RBC (3.80-5.40) m/uL Hgb (11.4-16.0) gm/dL Hct (34.0-46.0) % MCHC (31.0-37.0) g/dL Neutrophils # (1.3-7.7) k/uL Lymphocytes # (1.0-4.8) k/uL Chloride (98-107) mmol/L Carbon Dioxide (22-30) mmol/L BUN (7-17) mg/dL Creatinine (0.52-1.04) mg/dL Glucose (74-99) mg/dL POC Glucose (mg/dL) 152 H 157 H 164 H (75-99) mg/dL 05/30/17 05/30/17 05/30/17 Range/Units 05:33 05:33 06:26 WBC 12.8 H (3.8-10.6) k/uL RBC 3.45 L (3.80-5.40) m/uL Hgb 10.0 L (11.4-16.0) gm/dL Hct 33.1 L (34.0-46.0) % MCHC 30.1 L (31.0-37.0) g/dL Neutrophils # 11.0 H (1.3-7.7) k/uL Lymphocytes # 0.6 L (1.0-4.8) k/uL Chloride 95 L (98-107) mmol/L Carbon Dioxide 32 H (22-30) mmol/L BUN 30 H (7-17) mg/dL Creatinine 1.30 H (0.52-1.04) mg/dL Glucose 137 H (74-99) mg/dL POC Glucose (mg/dL) 131 H (75-99) mg/dL Assessment and Plan Assessment: impression: 1 acute on chronic diastolic congestive heart failure, recent echocardiogram showed good LV function. 2 new onset atrial fibrillation with RVR, patient is now on Cardizem and heparin. Rate seems to be better controlled. 3 history of COPD, severity of which is not clear, patient has been a heavy smoker over the years, must have outpatient follow-up, in the meantime continue updrafts in the form of albuterol and Atrovent. 4 right major fissure pseudotumor, strongly doubt malignancy. 5 nonspecific nodular densities in both lungs, repeat CT of the chest in 4 months on outpatient basis. 6 history of benign essential hypertension. Recommendation: Continue updrafts, diuretics, continue Cardizem, follow-up chest x-ray in a.m. Patient is not quite ready for any discharge planning at this point. Time with Patient: Less than 30
[2017-05-30 12:16] LABS: Glucose,Whole Blood 243 mg/dL (75-99)
--- NOTE | 2017-05-30 15:29 | P.PN ---
Subjective Progress Note Date: 05/30/17 Principal diagnosis: atrial fibrillation with RVR This is a pleasant 71-year-old female patient who follows with Dr. Solis in the office. Has a history of asthma, hypertension and recent admission for acute on chronic diastolic congestive heart failure. Presented this admission with complaints of worsening shortness of breath over about a week with lower extremity edema. Upon presentation she was found to be in atrial fibrillation with rapid ventricular response and was placed on a Cardizem drip heparin drip. BNP was quite elevated at 9130. Labs show normal thyroid function and negative troponins at 0.016, 0.017 and less than 0.012 and a BUN of 22 and creatinine 1.18. In reviewing her previous chart, echocardiogram showed normal LV systolic function with an ejection fraction of 55-60%. Vital signs show pressure initially high however fairly well controlled over the last several hours. Heart rates poorly controlled on Cardizem 15 mg an hour. Toprol 25 mg by mouth twice a day and amiodarone drip were initiated yesterday. Heart rates remain poorly controlled. Upon examination, patient remains short of breath and complains of lower extremity edema. She has no complaints of dizziness or lightheadedness. Objective - Vital Signs Vital signs: Vital Signs Temp 97.4 F L 05/30/17 12:00 Pulse 102 H 05/30/17 12:12 Resp 16 05/30/17 12:00 BP 118/70 05/30/17 12:00 Pulse Ox 96 05/30/17 12:00 Intake & Output 05/29/17 05/30/17 05/30/17 18:59 06:59 18:59 Intake Total 1284.296 320.755 30.5 Output Total 1999 1999 Balance -715.704 -1679.245 30.5 Weight 72.7 kg 71.5 kg Intake: IV 385 Amiodarone 450 mg In 165 Dextrose 5% in Water 250 ml @ 1 MG/MIN 34.53 mls/ hr IV .Q7H31M [facility] Rx#: [id number] Dextrose 5% in Water 100 100 ml @ 618 mls/hr IV .Q10M ONE with Amiodarone 150 mg Rx#:[id number] Diltiazem 125 mg In 120 Sodium Chloride 0.9% 100 ml @ 10 MG/HR 10 mls/hr IV .[id number] [facility] Rx#: [id number] Intake, IV Titration 303.296 320.755 30.5 Amount Amiodarone 450 mg In 216.963 116.255 Dextrose 5% in Water 250 ml @ 1 MG/MIN 34.53 mls/ hr IV .Q7H31M [facility] Rx#: [id number] Diltiazem 125 mg In 86.333 204.5 30.5 Sodium Chloride 0.9% 100 ml @ 10 MG/HR 10 mls/hr IV .[id number] [facility] Rx#: [id number] Oral 596 Output: Urine 1999 1999 Other: Voiding Method Bedside Commode Bedside Commode # Voids 1 3 # Bowel Movements 1 1 - Exam PHYSICAL EXAMINATION: HEENT: Head is atraumatic, normocephalic. Pupils equal, round. Neck is supple. There is elevated jugular venous pressure. HEART EXAMINATION: Heart sounds irregularly irregular, tachycardic, S1 and S2 normal. No murmur or gallop heard. CHEST EXAMINATION: Lungs wheezing throughout. No chest wall tenderness is noted on palpation or with deep breathing. ABDOMEN: Soft, nontender. Bowel sounds are heard. No organomegaly noted. EXTREMITIES: 2+ peripheral pulses with evidence of +2 peripheral edema and no calf tenderness noted. NEUROLOGIC patient is awake, alert and oriented x3. - Labs CBC & Chem 7: 05/30/17 05:33 05/30/17 05:33 Labs: Abnormal Lab Results - Last 24 Hours (Table) 05/29/17 05/29/17 05/30/17 Range/Units 16:37 20:57 05:33 WBC 12.8 H (3.8-10.6) k/uL RBC 3.45 L (3.80-5.40) m/uL Hgb 10.0 L (11.4-16.0) gm/dL Hct 33.1 L (34.0-46.0) % MCHC 30.1 L (31.0-37.0) g/dL Neutrophils # 11.0 H (1.3-7.7) k/uL Lymphocytes # 0.6 L (1.0-4.8) k/uL Chloride (98-107) mmol/L Carbon Dioxide (22-30) mmol/L BUN (7-17) mg/dL Creatinine (0.52-1.04) mg/dL Glucose (74-99) mg/dL POC Glucose (mg/dL) 157 H 164 H (75-99) mg/dL 05/30/17 05/30/17 05/30/17 Range/Units 05:33 06:26 12:07 WBC (3.8-10.6) k/uL RBC (3.80-5.40) m/uL Hgb (11.4-16.0) gm/dL Hct (34.0-46.0) % MCHC (31.0-37.0) g/dL Neutrophils # (1.3-7.7) k/uL Lymphocytes # (1.0-4.8) k/uL Chloride 95 L (98-107) mmol/L Carbon Dioxide 32 H (22-30) mmol/L BUN 30 H (7-17) mg/dL Creatinine 1.30 H (0.52-1.04) mg/dL Glucose 137 H (74-99) mg/dL POC Glucose (mg/dL) 131 H 243 H (75-99) mg/dL Assessment and Plan Assessment: #1 new onset atrial fibrillation with rapid ventricular response, likely paroxysmal, duration unknown #2 acute on chronic diastolic congestive heart failure, recent echocardiogram shows normal LV systolic function #3 asthma #4 hypertension Plan: From cardiology's perspective, continue IV Lasix and IV Cardizem drip. We will add by mouth amiodarone. We will increase metoprolol to 25 mg by mouth 3 times a day. Further recommendations to follow. INSURANCE APPRAISER note has been reviewed, I agree with a documented findings and plan of care. Patient was seen and examined.
--- NOTE | 2017-05-30 17:32 | P.PN ---
Progress Note - Text Progress Note Date: 05/30/17 DATE OF SERVICE: 05/30/2017 PRESENTING COMPLAINT: Shortness of breath HISTORY OF PRESENT ILLNESS: 71-year-old female presented with 2 weeks of increasing shortness of breath some wheezing minimal cough, does not have any fever or lower extremity edema, felt her heart racing and decided to come in. Uses 2 pillows at night. Found to be in congestive heart failure with atrial fibrillation with rapid ventricular rate admitted for the same. Placed on a Cardizem drip and heparin drip. INTERVAL HISTORY: 05/30/2017: Patient sitting up in the bed, appears somewhat anxious. Remains in atrial fibrillation, heart rate runs in the 1 teens to 140s, remains on Cardizem and amiodarone, tolerating her diet, ambulatory to and from the bathroom with some assistance, last BM 05/30/2017. 05/29/2017: Lying in bed appears mildly anxious, IV Cardizem continues remains in atrial fibrillation rate in the 1 teens to 120s. Patient has not yet converted. Has a cough with shortness of breath with minimal exertion. Up with assistance, tolerating her diet eating between 50 and 75% of her meals, last BM prior to admission. REVIEW OF SYSTEMS: Done for constitutional ,cardiovascular, GI, pulmonary with relevant findings as above. CURRENT MEDICATIONS Albuterol sulfate nebulized, amiodarone IV, Apixaban, Lipitor, Pulmicort, diltiazem, Lasix, insulin per sliding scale, melatonin, Lopressor, potassium replacement protocol, Zoloft. PHYSICAL EXAM VITAL SIGNS: Temperature 97.4, heart rate 120, respirations 16, blood pressure 118/70, oxygen saturation 96% on 2 L GENERAL APPEARANCE: Lying in bed, mildly anxious appearing. HEENT: Normocephalic, Pupils equal. Conjunctiva normal. JVD raised. Mass not palpable.: RESPIRATORY: Respiratory effort crease. Lungs diminished to auscultation. CARDIOVASCULAR: Irregular rhythm Mild edema. ABDOMEN: Soft. Liver and spleen not palpable. No tenderness. No mass palpable. PSYCHIATRY: Alert and oriented x3. Mood and affect mildly anxious. INVESTIGATIONS: White blood cell count 12.8, hemoglobin 10.0, chloride 95, carbon dioxide 32, BUN 30, creatinine 1.30, Accu-Cheks noted. ASSESSMENT: -Acute on chronic congestive heart failure exacerbation from diastolic dysfunction, ejection fraction 55-60%, from hypertensive heart disease. -Hypertensive heart disease. -Acute chronic obstructive pulmonary disease exacerbation and an ex-smoker. -Persistent Atrial fibrillation, new onset, with rapid ventricular rate, present on admission, slow to respond -Chronic nodular changes on computed tomography scan of the chest could be granulomas -Chronic rheumatoid arthritis. -Hyperlipidemia. -Essential hypertension. -Anxiety and depression not otherwise specified. PLAN: Continue IV Cardizem, amiodarone by mouth, IV Lasix as well as nebulized bronchodilators. Oral anticoagulation continues in the form of Apixaban. Plan of care discussed at the bedside with patient, she is agreeable. We'll follow closely. [employer] CHARGER statement: Patient was seen and examined by nurse practitioner Georgia Perez and all elements of the case discussed with attending Dr. Hudson
[2017-05-30 18:01] LABS: Glucose,Whole Blood 95 mg/dL (75-99)
[2017-05-30 18:01] LABS: Glucose,Whole Blood 63 mg/dL (75-99)
--- NOTE | 2017-05-30 20:09 | PN ---
PROGRESS NOTE DATE OF SERVICE: May 30, 2017. ATTENDING NOTE: Patient seen and examined by me. I discussed with nurse practitioner, Ms. Perez. Patient admitted with atrial fibrillation, still remains uncontrolled. Patient remains on IV amiodarone, IV Cardizem drip. Some shortness of breath. Edema still remains present. PHYSICAL EXAMINATION: Temperature 97.2, pulse 120, respiration 18, blood pressure 136/94, pulse 94% on 2 L. LUNGS: Decreased breath sounds. Some mild wheezing. Edema is present. INVESTIGATIONS: White count 12.8, hemoglobin 10, potassium 4.2, BUN 30, creatinine 1.30. ASSESSMENT: 1. Acute on chronic congestive heart failure exacerbation, uncontrolled. 2. Persistent atrial fibrillation with rapid ventricular heart rate uncontrolled. PLAN: Continue with IV Cardizem, amiodarone, IV Lasix. Care was discussed with the patient and at the bedside. Follow. MMODL / IJN: [id number] /
[2017-05-30 20:44] LABS: Glucose,Whole Blood 133 mg/dL (75-99)
[2017-05-30] MEDS: ATORVASTATIN 20 MG TAB PO SCH (21:05)
[2017-05-30] MEDS: MELATONIN 3 MG TABLET PO SCH (21:05)
[2017-05-30] MEDS: AMIODARONE 200 MG TAB PO SCH (21:06)
[2017-05-30] MEDS ORDERED: METOPROLOL TARTRATE 25 MG TAB PO STA (22:03)
[2017-05-31 06:15] LABS: Glucose,Whole Blood 89 mg/dL (75-99)
[2017-05-31 06:15] LABS: Basophils % (A) 0 %; Eosinophils # (A) 0.1 k/uL (0-0.7); Eosinophils % (A) 0 %; HCT 34.8 % (34.0-46.0); HGB 10.4 gm/dL (11.4-16.0); Hypochromasia Marked; Lymphocytes # (A) 1.2 k/uL (1.0-4.8); Lymphocytes % (A) 9 %; MCH 28.7 pg (25.0-35.0); MCHC 29.7 g/dL (31.0-37.0); MCV 96.6 fL (80.0-100.0); Mean Platelet Volume 7.3; Monocytes % (A) 7 %; Neutrophils % (A) 81 %; Platelet Count 429 k/uL (150-450); RDW 14.9 % (11.5-15.5); WBC 13.6 k/uL (3.8-10.6)
[2017-05-31] MEDS: INSULIN ASPART 100 UNIT/ML 1 ML 10 ML VIAL SQ SCH ×4 (06:25→21:36)
[2017-05-31 06:32] LABS: Calcium 8.8 mg/dL (8.4-10.2); Potassium 3.5 mmol/L (3.5-5.1)
[2017-05-31] MEDS: FUROSEMIDE 10 MG/ML 4 ML VIAL IV SCH (08:04)
[2017-05-31] MEDS: AMIODARONE 200 MG TAB PO SCH ×2 (08:05→21:43)
[2017-05-31] MEDS: APIXABAN 5 MG TAB PO SCH ×2 (08:05→21:43)
[2017-05-31] MEDS: METOPROLOL TARTRATE 25 MG TAB PO SCH ×3 (08:05→21:44)
[2017-05-31] MEDS: SERTRALINE 50 MG TAB PO SCH (08:06)
[2017-05-31] MEDS: ALBUTEROL NEBULIZED 2.5 MG/3 ML INHALATION SCH ×4 (08:23→20:09)
[2017-05-31] MEDS: BUDESONIDE 1 MG/2 ML NEBU INHALATION SCH ×2 (08:23→20:09)
--- NOTE | 2017-05-31 10:19 | XR ---
EXAMINATION TYPE: XR chest 1V portable DATE OF EXAM: 05/31/2017 HISTORY: chf. REFERENCE: Previous study dated 05/28/2017. FINDINGS: There is a stable pulmonary nodule in the right measuring 2.9 cm. The heart is enlarged. There are small, bilateral effusions. IMPRESSION: 1. RIGHT-SIDED PULMONARY MASS, RECENTLY SHOWN TO REPRESENT A PSEUDOMASS. 2. CARDIOMEGALY. 3. SMALL, BILATERAL EFFUSIONS.
--- NOTE | 2017-05-31 10:59 | P.PN ---
Subjective Progress Note Date: 05/31/17 Principal diagnosis: Acute on chronic diastolic congestive heart failure this is a 71-year-old female with history of COPD, remote heavy smoking history , however she quit smoking a few years back. Patient used to be at least a 60- pack-year smoker, maintained normally on Ventolin for her underlying presumptive COPD by her primary care physician.patient presented to the ER yesterday with 1 week history of increased shortness of breath, nonproductive cough, increased swelling, some wheezing, but no fever no chills no hemoptysis no chest pain.upon presentation, the patient was noted to be in atrial fibrillation with RVR, and her chest x-ray showed evidence of bilateral pleural effusions, and fluids as noted in the right major fissure, looks like a pseudotumor. There was also evidence of bibasilar compressive atelectasis. And some bilateral nonspecific nodular densities. Her pro BNP level was elevated.CBC was normal. Basic metabolic profile was normal. Creatinine 1.20. Patient was placed on Cardizem drip and on heparin, she was also diuresed, feeling much better by the time I evaluated the patient this morning. Presently no headache no blurred vision no dizziness, no chest pain, denies any palpitations, no nausea no vomiting no abdominal pain no melena no hematemesis is no dysuria and no frequency no urgency. Reevaluated today on 05/30/2017, patient remains in A. fib, presently on amiodarone and Cardizem. Feeling better, less shortness of breath, no cough no wheezing, continues to have significant swelling in her lower extremities. WBC count is 12.8 hemoglobin is 10 electrolytes are normal BUN is 30 creatinine 1.30 , slightly worse since admission. No chest x-ray was done today. ET of the chest which was done on admission was reviewed again Patient was reevaluated today on 05/31/2017, remains on Cardizem drip, her rate seems to be better controlled, patient is also on oral amiodarone, however she is complaining of shortness of breath today.chest x-ray continues to show some evidence of congestive heart failure, the pseudotumor was again noted on the chest x-ray today, hence I recommended more diuretics for this patient. Objective - Vital Signs Vital signs: Vital Signs Temp 97.5 F L 05/31/17 08:00 Pulse 96 05/31/17 08:40 Resp 16 05/31/17 08:00 BP 123/75 05/31/17 08:00 Pulse Ox 99 05/31/17 08:26 Intake & Output 05/30/17 05/31/17 05/31/17 18:59 06:59 18:59 Intake Total 414.5 125 Output Total 600 Balance -185.5 125 Weight 71.6 kg Intake: Intake, IV Titration 414.5 125 Amount Amiodarone 450 mg In 259 Dextrose 5% in Water 250 ml @ 1 MG/MIN 34.53 mls/ hr IV .[id number] [facility] Rx#: [id number] Diltiazem 125 mg In 155.5 125 Sodium Chloride 0.9% 100 ml @ 10 MG/HR 10 mls/hr IV .[id number] [facility] Rx#: [id number] Output: Urine 600 Other: Voiding Method Bedside Commode # Voids 2 # Bowel Movements 1 - Exam Physical Exam: Revealed a 71-year-old female in no distress. HEENT:[Neck is supple.] [No neck masses.] [No thyromegaly.] [No JVD.] Chest: crackles at the bases, some wheezing noted on forced expiratory maneuver only.] Cardiac Exam: irregular irregular rhythm[Normal S1 and S2, no S3 gallop, no murmur.] Abdomen: [Soft, nontender, no megaly, no rebound, no guarding, normal bowel sounds.] Extremities: [No clubbing, 2+ bipedal edema, no cyanosis.]good distal pulses bilaterally. Neurological Exam: [No focal neurologic deficit.] lymphatics: No lymphadenopathy. Psychiatric: Slightly anxious, normal mood and affect, normal mental status examination. - Labs CBC & Chem 7: 05/31/17 05:21 05/31/17 05:21 Labs: Abnormal Lab Results - Last 24 Hours (Table) 05/30/17 05/30/17 05/30/17 Range/Units 12:07 17:11 20:39 WBC (3.8-10.6) k/uL RBC (3.80-5.40) m/uL Hgb (11.4-16.0) gm/dL MCHC (31.0-37.0) g/dL Neutrophils # (1.3-7.7) k/uL Chloride (98-107) mmol/L Carbon Dioxide (22-30) mmol/L BUN (7-17) mg/dL Creatinine (0.52-1.04) mg/dL POC Glucose (mg/dL) 243 H 63 L 133 H (75-99) mg/dL 05/31/17 05/31/17 Range/Units 05:21 05:21 WBC 13.6 H (3.8-10.6) k/uL RBC 3.60 L (3.80-5.40) m/uL Hgb 10.4 L (11.4-16.0) gm/dL MCHC 29.7 L (31.0-37.0) g/dL Neutrophils # 11.0 H (1.3-7.7) k/uL Chloride 96 L (98-107) mmol/L Carbon Dioxide 34 H (22-30) mmol/L BUN 36 H (7-17) mg/dL Creatinine 1.60 H (0.52-1.04) mg/dL POC Glucose (mg/dL) (75-99) mg/dL Assessment and Plan Assessment: impression: 1 acute on chronic diastolic congestive heart failure, recent echocardiogram showed good LV function. 2 new onset atrial fibrillation with RVR, patient is now on Cardizem and heparin. Rate seems to be better controlled. 3 history of COPD, severity of which is not clear, patient has been a heavy smoker over the years, must have outpatient follow-up, in the meantime continue updrafts in the form of albuterol and Atrovent. 4 right major fissure pseudotumor, strongly doubt malignancy. 5 nonspecific nodular densities in both lungs, repeat CT of the chest in 4 months on outpatient basis. 6 history of benign essential hypertension. Recommendation: Continue updrafts, diuretics, continue Cardizem, amiodarone, will increase diuretics, will continue to monitor electrolytes, follow-up chest x-ray in a.m. Time with Patient: Less than 30
[2017-05-31 12:14] LABS: Glucose,Whole Blood 104 mg/dL (75-99)
[2017-05-31] MEDS: DILTIAZEM 125 MG in SODIUM CHLORIDE 0.9% 100 ML IV SCH (14:58)
--- NOTE | 2017-05-31 15:28 | PN ---
PROGRESS NOTE Mrs Levin is a 71-year-old female with history of chronic obstructive lung disease, who presented with symptoms of progressive dyspnea, was noted to be in atrial fibrillation which is new for her. She denies any symptoms of chest pain, but she continues to be quite dyspneic. She denies any dizziness or palpitation. She has peripheral edema. She denies any nausea. She continues to be coughing. She continues to be at this time on amiodarone 400 mg twice a day, Eliquis 5 mg twice a day, Lipitor 20 mg daily, diltiazem IV, Lasix 40 mg IV q.8 hours, metoprolol tartrate 25 mg twice a day. PHYSICAL EXAMINATION: Blood pressure 120/70 with a heart rate in the 70s. LUNGS: With decreased air exchange and wheezes bilaterally with a few crackles. HEART: Irregularly irregular S1, S2. No S3. No rub. ABDOMEN: Soft, nontender. Extremities +1 edema bilaterally. LAB DATA: BUN and creatinine of 36 and 1.6, potassium 3.5, hemoglobin of 10.4. IMPRESSION: 1. Progressive dyspnea, multifactorial with an element of chronic obstructive pulmonary disease as well as congestive heart failure, probably on the basis of diastolic dysfunction and new onset atrial fibrillation. 2. Atrial fibrillation, anticoagulated. Continues with episode of rapid ventricular response. 3. Worsening renal function. RECOMMENDATION: I will switch her to oral Cardizem. I will decrease the dose of her diuretic. Continue with medical regimen. Follow her renal function and depending on her progress, further recommendations will be made. MMODL / IJN: [id number] /
--- NOTE | 2017-05-31 18:11 | P.PN ---
Progress Note - Text Progress Note Date: 05/31/17 DATE OF SERVICE: 05/31/2017 PRESENTING COMPLAINT: Shortness of breath HISTORY OF PRESENT ILLNESS: 71-year-old female presented with 2 weeks of increasing shortness of breath some wheezing minimal cough, does not have any fever or lower extremity edema, felt her heart racing and decided to come in. Uses 2 pillows at night. Found to be in congestive heart failure with atrial fibrillation with rapid ventricular rate admitted for the same. Placed on a Cardizem drip and heparin drip. INTERVAL HISTORY: 05/31/2017: Sitting up in bed continues to be anxious. Heart rate is in normal sinus rhythm. Cardizem drip converted to oral and by mouth amiodarone. Remains very short of breath, has moderate amount of lower extremity edema continues to receive IV Lasix. Tolerating her diet eating 100% of her meal requires assistance to ambulate to and from the bathroom. Last BM 05/30/2017 area 05/30/2017: Patient sitting up in the bed, appears somewhat anxious. Remains in atrial fibrillation, heart rate runs in the 1 teens to 140s, remains on Cardizem and amiodarone, tolerating her diet, ambulatory to and from the bathroom with some assistance, last BM 05/30/2017. 05/29/2017: Lying in bed appears mildly anxious, IV Cardizem continues remains in atrial fibrillation rate in the 1 teens to 120s. Patient has not yet converted. Has a cough with shortness of breath with minimal exertion. Up with assistance, tolerating her diet eating between 50 and 75% of her meals, last BM prior to admission. REVIEW OF SYSTEMS: Done for constitutional ,cardiovascular, GI, pulmonary with relevant findings as above. CURRENT MEDICATIONS Albuterol sulfate nebulized, amiodarone , Apixaban, Lipitor, Pulmicort, diltiazem, Lasix, insulin per sliding scale, melatonin, Lopressor, potassium replacement protocol, Zoloft. PHYSICAL EXAM VITAL SIGNS: Temperature 97.2, pulse 89, respiratory rate 18, blood pressure 145/78, oxygen saturation 94% on 2 L. GENERAL APPEARANCE: Lying in bed, mildly anxious appearing. HEENT: Normocephalic, Pupils equal. Conjunctiva normal. JVD raised. Mass not palpable.: RESPIRATORY: Respiratory effort crease. Lungs diminished to auscultation. CARDIOVASCULAR: First and second sounds normal moderate edema. ABDOMEN: Soft. Liver and spleen not palpable. No tenderness. No mass palpable. PSYCHIATRY: Alert and oriented x3. Mood and affect mildly anxious. INVESTIGATIONS: White blood cell count 13.6, hemoglobin 10.4, chloride 96, carbon dioxide 34, BUN 36, creatinine 1.60, Accu-Cheks noted. ASSESSMENT: -Acute on chronic congestive heart failure exacerbation from diastolic dysfunction, ejection fraction 55-60%, from hypertensive heart disease and atrial fibrillation slow to respond -Paroxysmal Atrial fibrillation, new onset, with rapid ventricular rate, present on admission, slow to respond -Acute kidney injury likely prerenal secondary to diuretic use, improving -Hypertensive heart disease. -Acute chronic obstructive pulmonary disease exacerbation and an ex-smoker. -Chronic nodular changes on computed tomography scan of the chest could be granulomas -Chronic rheumatoid arthritis. -Hyperlipidemia. -Essential hypertension. -Anxiety and depression not otherwise specified. PLAN: Continue Cardizem and amiodarone oral,, IV Lasix as well as nebulized bronchodilators. Chest x-ray in the morning. Oral anticoagulation continues in the form of Apixaban. Plan of care discussed at the bedside with patient, she is agreeable. We'll follow closely. RN SCHOOL statement: Patient was seen and examined by nurse practitioner Georgia Perez and all elements of the case discussed with attending Dr. Hudson
[2017-05-31] MEDS: DILTIAZEM ORAL 30 MG TAB PO SCH ×2 (18:38→21:45)
[2017-05-31 19:57] LABS: Glucose,Whole Blood 170 mg/dL (75-99)
--- NOTE | 2017-05-31 20:24 | PN ---
PROGRESS NOTE DATE OF SERVICE: 05/31/17 ATTENDING NOTE: Patient seen and examined by me. Discussed with my nurse practitioner Ms. Perez. Patient admitted with CHF exacerbation and atrial fibrillation, rapid ventricular rate. The patient has now come to sinus rhythm, though very short of breath. Significant edema is present. PHYSICAL EXAMINATION: Temperature 97.9, pulse 92, respiration 18, blood pressure 140/98, pulse ox 94% on room air. Neck JVD is raised. Gross edema is present. INVESTIGATIONS: White count 13.6, potassium 3.5, BUN 36, creatinine 1.60. ASSESSMENT: 1. Acute on chronic congestive heart failure exacerbation from diastolic dysfunction. Ejection fraction 55-60% from hypertensive heart disease and contribution from atrial fibrillation uncontrolled. 2. Paroxysmal atrial fibrillation. The patient has now reverted to sinus rhythm. 3. Acute kidney injury, likely prerenal secondary to diuretic use. PLAN: Given the rise in creatinine, probably the smaller dose of Lasix is not being as effective. We will give the patient 2 dose of IV Lasix 80 mg x2 and see how she does clinically. Care was discussed with the patient and at the bedside. MMODL / IJN: [id number] /
[2017-05-31] MEDS ORDERED: FUROSEMIDE 10 MG/ML 4 ML VIAL IV SCH (21:00)
[2017-05-31] MEDS: FUROSEMIDE 10 MG/ML 10 ML VIAL IV SCH (21:36)
[2017-05-31] MEDS: MELATONIN 3 MG TABLET PO SCH (21:44)
[2017-05-31] MEDS: ATORVASTATIN 20 MG TAB PO SCH (21:44)
[2017-06-01] MEDS ORDERED: DILTIAZEM ORAL 30 MG TAB PO STA (03:47)
[2017-06-01 06:00] LABS: Glucose,Whole Blood 91 mg/dL (75-99)
[2017-06-01] MEDS: INSULIN ASPART 100 UNIT/ML 1 ML 10 ML VIAL SQ SCH ×4 (06:10→21:12)
[2017-06-01 06:50] LABS: Basophils % (A) 0 %; Eosinophils # (A) 0.1 k/uL (0-0.7); Eosinophils % (A) 1 %; HCT 34.7 % (34.0-46.0); HGB 10.1 gm/dL (11.4-16.0); Hypochromasia Moderate; Lymphocytes # (A) 1.1 k/uL (1.0-4.8); Lymphocytes % (A) 8 %; MCH 28.4 pg (25.0-35.0); MCHC 29.2 g/dL (31.0-37.0); MCV 97.3 fL (80.0-100.0); Mean Platelet Volume 7.1; Monocytes # (A) 1.2 k/uL (0-1.0); Monocytes % (A) 8 %; Neutrophils # (A) 11.4 k/uL (1.3-7.7); Neutrophils % (A) 81 %; Platelet Count 379 k/uL (150-450); RBC 3.57 m/uL (3.80-5.40); RDW 15.4 % (11.5-15.5); WBC 14.1 k/uL (3.8-10.6)
[2017-06-01 07:16] LABS: Calcium 9.1 mg/dL (8.4-10.2)
[2017-06-01] MEDS: BUDESONIDE 1 MG/2 ML NEBU INHALATION SCH ×2 (07:45→20:01)
[2017-06-01] MEDS: ALBUTEROL NEBULIZED 2.5 MG/3 ML INHALATION SCH ×4 (07:45→20:00)
[2017-06-01] MEDS: AMIODARONE 200 MG TAB PO SCH ×2 (08:25→21:19)
[2017-06-01] MEDS: DILTIAZEM ORAL 60 MG TAB PO SCH ×3 (08:25→21:19)
[2017-06-01] MEDS: METOPROLOL TARTRATE 25 MG TAB PO SCH ×3 (08:25→21:19)
[2017-06-01] MEDS: APIXABAN 5 MG TAB PO SCH ×2 (08:26→21:19)
[2017-06-01] MEDS: FUROSEMIDE 10 MG/ML 10 ML VIAL IV SCH ×4 (08:27→21:19)
[2017-06-01] MEDS: SERTRALINE 50 MG TAB PO SCH (08:27)
[2017-06-01] MEDS: DILTIAZEM ORAL 30 MG TAB PO SCH (08:29)
[2017-06-01] MEDS ORDERED: POTASSIUM CHLORIDE ER 20 MEQ TAB.ER PO SCH (09:00)
[2017-06-01 11:38] LABS: Glucose,Whole Blood 99 mg/dL (75-99)
[2017-06-01] MEDS: POTASSIUM CHLORIDE ER 20 MEQ TAB.ER PO SCH (14:13)
--- NOTE | 2017-06-01 14:34 | P.PN ---
Subjective Progress Note Date: 06/01/17 Principal diagnosis: sob This is a pleasant 71-year-old female patient who follows with Dr. Solis in the office. Has a history of asthma, hypertension and recent admission for acute on chronic diastolic congestive heart failure. Presented this admission with complaints of worsening shortness of breath over about a week with lower extremity edema. Upon presentation she was found to be in atrial fibrillation with rapid ventricular response and was placed on a Cardizem drip heparin drip. BNP was quite elevated at 9130. Labs show normal thyroid function and negative troponins at 0.016, 0.017 and less than 0.012 and a BUN of 22 and creatinine 1.18. In reviewing her previous chart, echocardiogram showed normal LV systolic function with an ejection fraction of 55-60%. Vital signs show pressure initially high however fairly well controlled over the last several hours. Heart rates are poorly controlled on Cardizem 15 mg an hour. Upon examination, patient remainsshort of breath and complains of lower extremity edema. She has no complaints of dizziness or lightheadedness. 06/01/2017 Patient seen and examined this morning, continues to be in atrial fibrillation, heart rate heart rate in the low 1 teens to 120s. Dose of Cardizem was increased to 3 times a day last evening, today we will increase that to 90 mg 3 times a day for more optimal heart rate control. Continue current dose of beta jil along with amiodarone. Objective - Vital Signs Vital signs: Vital Signs Temp 98.5 F 06/01/17 08:00 Pulse 84 06/01/17 12:00 Resp 18 06/01/17 12:00 BP 157/94 06/01/17 12:00 Pulse Ox 95 06/01/17 12:00 Intake & Output 05/31/17 06/01/17 06/01/17 18:59 06:59 18:59 Intake Total 180 Output Total 450 1650 Balance -450 -1650 180 Weight 69 kg Intake: Oral 180 Output: Urine 450 1650 Other: Voiding Method Bedside Commode # Voids 3 1 1 # Bowel Movements 1 - Exam PHYSICAL EXAMINATION: HEENT: Head is atraumatic, normocephalic. Pupils equal, round. Neck is supple. There is no elevated jugular venous pressure. HEART EXAMINATION: Heart S1 and S2 irregularly irregular CHEST EXAMINATION: Which revealed decreased air exchange throughout. Fine crackles to the bases. ABDOMEN: Soft, nontender. Bowel sounds are heard. No organomegaly noted. EXTREMITIES:[ 2+ peripheral pulses with no evidence trace to 1+ peripheral edema . NEUROLOGIC patient is awake, alert and oriented -3. . - Labs CBC & Chem 7: 06/01/17 05:49 06/01/17 10:25 Labs: Abnormal Lab Results - Last 24 Hours (Table) 05/31/17 06/01/17 06/01/17 Range/Units 19:43 05:49 05:49 WBC 14.1 H (3.8-10.6) k/uL RBC 3.57 L (3.80-5.40) m/uL Hgb 10.1 L (11.4-16.0) gm/dL MCHC 29.2 L (31.0-37.0) g/dL Neutrophils # 11.4 H (1.3-7.7) k/uL Monocytes # 1.2 H (0-1.0) k/uL Potassium 3.0 L* (3.5-5.1) mmol/L Chloride 93 L (98-107) mmol/L Carbon Dioxide 35 H (22-30) mmol/L BUN 28 H (7-17) mg/dL Creatinine 1.22 H (0.52-1.04) mg/dL POC Glucose (mg/dL) 170 H (75-99) mg/dL Assessment and Plan Plan: Assessment: #1 new onset atrial fibrillation with rapid ventricular response, paroxysmal #2 acute on chronic diastolic congestive heart failure, recent echocardiogram shows normal LV systolic function #3 asthma #4 hypertension Plan From cardiology's perspective, we'll increase dose of Cardizem to 90 mg one tablet by mouth 3 times a day. We will also continue current dose of IV Lasix, check labs in the morning. Continue amiodarone 400 mg twice a day along with Eliquis. DNP note has been reviewed, I agree with a documented findings and plan of care. Patient was seen and examined.
[2017-06-01] MEDS ORDERED: FUROSEMIDE 10 MG/ML 10 ML VIAL IV SCH (16:15)
[2017-06-01 16:44] LABS: Glucose,Whole Blood 96 mg/dL (75-99)
--- NOTE | 2017-06-01 17:34 | P.PN ---
Subjective Progress Note Date: 06/01/17 Principal diagnosis: Acute on chronic diastolic congestive heart failure This is a 71-year-old female with history of COPD, remote heavy smoking history , however she quit smoking a few years back. Patient used to be at least a 60- pack-year smoker, maintained normally on Ventolin for her underlying presumptive COPD by her primary care physician.patient presented to the ER yesterday with 1 week history of increased shortness of breath, nonproductive cough, increased swelling, some wheezing, but no fever no chills no hemoptysis no chest pain.upon presentation, the patient was noted to be in atrial fibrillation with RVR, and her chest x-ray showed evidence of bilateral pleural effusions, and fluids as noted in the right major fissure, looks like a pseudotumor. There was also evidence of bibasilar compressive atelectasis. And some bilateral nonspecific nodular densities. Her pro BNP level was elevated.CBC was normal. Basic metabolic profile was normal. Creatinine 1.20. Patient was placed on Cardizem drip and on heparin, she was also diuresed, feeling much better by the time I evaluated the patient this morning. Presently no headache no blurred vision no dizziness, no chest pain, denies any palpitations, no nausea no vomiting no abdominal pain no melena no hematemesis is no dysuria and no frequency no urgency. Reevaluated today on 05/30/2017, patient remains in A. fib, presently on amiodarone and Cardizem. Feeling better, less shortness of breath, no cough no wheezing, continues to have significant swelling in her lower extremities. WBC count is 12.8 hemoglobin is 10 electrolytes are normal BUN is 30 creatinine 1.30 , slightly worse since admission. No chest x-ray was done today. ET of the chest which was done on admission was reviewed again Patient was reevaluated today on 05/31/2017, remains on Cardizem drip, her rate seems to be better controlled, patient is also on oral amiodarone, however she is complaining of shortness of breath today.chest x-ray continues to show some evidence of congestive heart failure, the pseudotumor was again noted on the chest x-ray today, hence I recommended more diuretics for this patient. On 06/01/2017 patient seen in follow-up on [facility] care floor. Currently on room air, with O2 sat between 92 and 95%. Remains in atrial fibrillation, with poorly controlled rates, currently at 126 BPM. She remains on amiodarone 400 by mouth twice a day, cardiology has increased her dose of oral Cardizem to 60 mg by mouth 3 times a day. Patient continues on IV Lasix at 60 mg every 12 hours. She is a -2100 mL fluid balance over the last 24 hours. No new chest x- ray today. Her chest x-ray from 05/31/2017 shows a pseudomass in the right lung , cardiomegaly, small bilateral effusions. Her lungs are positive for bibasilar rales, her bilateral lower extremities are positive for 1+ pitting edema. Objective - Vital Signs Vital signs: Vital Signs Temp 98.1 F 06/01/17 16:00 Pulse 122 H 06/01/17 16:20 Resp 18 06/01/17 16:00 BP 149/90 06/01/17 16:00 Pulse Ox 92 L 06/01/17 16:00 Intake & Output 05/31/17 06/01/17 06/01/17 18:59 06:59 18:59 Intake Total 360 Output Total 450 1650 Balance -450 -1650 360 Weight 69 kg Intake: Oral 360 Output: Urine 450 1650 Other: Voiding Method Bedside Commode # Voids 3 1 3 # Bowel Movements 1 - Exam Physical Exam: Revealed a 71-year-old female in no distress. HEENT:[Neck is supple.] [No neck masses.] [No thyromegaly.] [No JVD.] Chest: crackles at the bases, some wheezing noted on forced expiratory maneuver only.] Cardiac Exam: irregular irregular rhythm[Normal S1 and S2, no S3 gallop, no murmur.] Abdomen: [Soft, nontender, no megaly, no rebound, no guarding, normal bowel sounds.] Extremities: [No clubbing, 2+ bipedal edema, no cyanosis.]good distal pulses bilaterally. Neurological Exam: [No focal neurologic deficit.] lymphatics: No lymphadenopathy. Psychiatric: Slightly anxious, normal mood and affect, normal mental status examination. - Labs CBC & Chem 7: 06/01/17 05:49 06/01/17 10:25 Labs: Abnormal Lab Results - Last 24 Hours (Table) 05/31/17 06/01/17 06/01/17 Range/Units 19:43 05:49 05:49 WBC 14.1 H (3.8-10.6) k/uL RBC 3.57 L (3.80-5.40) m/uL Hgb 10.1 L (11.4-16.0) gm/dL MCHC 29.2 L (31.0-37.0) g/dL Neutrophils # 11.4 H (1.3-7.7) k/uL Monocytes # 1.2 H (0-1.0) k/uL Potassium 3.0 L* (3.5-5.1) mmol/L Chloride 93 L (98-107) mmol/L Carbon Dioxide 35 H (22-30) mmol/L BUN 28 H (7-17) mg/dL Creatinine 1.22 H (0.52-1.04) mg/dL POC Glucose (mg/dL) 170 H (75-99) mg/dL Assessment and Plan Plan: Assessment: 1 acute on chronic diastolic congestive heart failure, recent echocardiogram showed good LV function. 2 new onset atrial fibrillation with RVR, patient currently on oral amiodarone, oral Cardizem, and Eliquis. Rate is still poorly controlled. Cardiology has adjusted the dose of oral Cardizem. 3 history of COPD, severity of which is not clear, patient has been a heavy smoker over the years, must have outpatient follow-up, in the meantime continue updrafts in the form of albuterol and Atrovent. 4 right major fissure pseudotumor, strongly doubt malignancy. 5 nonspecific nodular densities in both lungs, repeat CT of the chest in 4 months on outpatient basis. 6 history of benign essential hypertension. Recommendation: Continue updrafts, diuretics, continue Cardizem, amiodarone, will increase diuretics, will continue to monitor electrolytes, follow-up chest x-ray in a.m. I performed a history & physical examination of the patient and discussed their management with my nurse practitioner, Sasha Knutson. I reviewed the nurse practitioner's note and agree with the documented findings and plan of care. Lung sounds are positive bibasilar rales. The findings and the impression was discussed with the patient. I attest to the documentation by the nurse practitioner. Time with Patient: Less than 30
--- NOTE | 2017-06-01 18:11 | PN ---
PROGRESS NOTE DATE OF SERVICE: 06/01/17 ATTENDING NOTE: The patient seen and examined by me. I discussed with nurse practitioner Dondesmond. I did increase patient's dose of IV Lasix yesterday. Patient breathing is actually much better. Edema still present but has gone down. Patient has gone back to atrial fibrillation. PHYSICAL EXAMINATION: Temperature 98.5, pulse 136, respiration 19, blood pressure 133/91, pulse ox 96% on room air. Lungs some basal crackles. Edema still present, though better. JVD improving. INVESTIGATIONS: White count 14.1, potassium 3, BUN 28, creatinine 1.22. ASSESSMENT: 1. Acute on chronic congestive heart failure exacerbation from diastolic dysfunction. Ejection fraction 55-60%, hypertensive heart disease, and contribution from atrial fibrillation, slow to respond. 2. Atrial fibrillation back into increased heart rate. 3. Acute kidney injury, prerenal from diuretic use, improving. PLAN: We will give the patient another 2 doses of IV Lasix 60 mg q.12 1 dose right now, 1 dose in the morning. Cardiology did increase the patient's dose of Cardizem to 60 mg 3 times a day. Care was discussed with the patient and at the bedside. Will see how she does. MMODL / IJN: [id number] /
[2017-06-01 20:51] LABS: Glucose,Whole Blood 126 mg/dL (75-99)
[2017-06-01] MEDS: ATORVASTATIN 20 MG TAB PO SCH (21:19)
[2017-06-01] MEDS: MELATONIN 3 MG TABLET PO SCH (21:20)
[2017-06-02 05:41] LABS: Glucose,Whole Blood 112 mg/dL (75-99)
[2017-06-02 05:58] LABS: Basophils % (A) 0 %; Eosinophils # (A) 0.1 k/uL (0-0.7); Eosinophils % (A) 1 %; HCT 34.8 % (34.0-46.0); HGB 10.3 gm/dL (11.4-16.0); Hypochromasia Moderate; Lymphocytes # (A) 0.7 k/uL (1.0-4.8); Lymphocytes % (A) 7 %; MCH 28.3 pg (25.0-35.0); MCHC 29.7 g/dL (31.0-37.0); MCV 95.6 fL (80.0-100.0); Mean Platelet Volume 7.3; Monocytes # (A) 0.7 k/uL (0-1.0); Monocytes % (A) 7 %; Neutrophils # (A) 8.9 k/uL (1.3-7.7); Neutrophils % (A) 83 %; Platelet Count 348 k/uL (150-450); RBC 3.64 m/uL (3.80-5.40); RDW 15.5 % (11.5-15.5); WBC 10.7 k/uL (3.8-10.6)
[2017-06-02 06:11] LABS: Potassium 3.4 mmol/L (3.5-5.1)
[2017-06-02] MEDS: INSULIN ASPART 100 UNIT/ML 1 ML 10 ML VIAL SQ SCH ×4 (06:25→21:58)
[2017-06-02] MEDS: ALBUTEROL NEBULIZED 2.5 MG/3 ML INHALATION SCH ×4 (07:21→21:00)
[2017-06-02] MEDS: BUDESONIDE 1 MG/2 ML NEBU INHALATION SCH ×2 (07:22→21:00)
[2017-06-02] MEDS: METOPROLOL TARTRATE 25 MG TAB PO SCH ×2 (08:53→12:38)
[2017-06-02] MEDS: AMIODARONE 200 MG TAB PO SCH ×2 (08:53→20:46)
[2017-06-02] MEDS: APIXABAN 5 MG TAB PO SCH ×2 (08:53→20:46)
[2017-06-02] MEDS: DILTIAZEM ORAL 60 MG TAB PO SCH ×3 (08:53→20:46)
[2017-06-02] MEDS: POTASSIUM CHLORIDE ER 20 MEQ TAB.ER PO SCH ×5 (08:54→17:46)
[2017-06-02] MEDS: FUROSEMIDE 10 MG/ML 10 ML VIAL IV SCH (08:54)
[2017-06-02] MEDS: SERTRALINE 50 MG TAB PO SCH (08:54)
[2017-06-02 11:43] LABS: Glucose,Whole Blood 101 mg/dL (75-99)
--- NOTE | 2017-06-02 13:14 | P.PN ---
Progress Note - Text Progress Note Date: 06/02/17 DATE OF SERVICE: 06/01/2017 PRESENTING COMPLAINT: Shortness of breath HISTORY OF PRESENT ILLNESS: 71-year-old female presented with 2 weeks of increasing shortness of breath some wheezing minimal cough, does not have any fever or lower extremity edema, felt her heart racing and decided to come in. Uses 2 pillows at night. Found to be in congestive heart failure with atrial fibrillation with rapid ventricular rate admitted for the same. Placed on a Cardizem drip and heparin drip. INTERVAL HISTORY: 06/01/2017: Sitting at the bedside, very anxious and wants to go home. Very early this morning patient went back to atrial fibrillation, Cardizem increased. Beta jil and amiodarone also continue. Tolerating her diet eating 100% of her meals, requires some assistance to ambulate to and from the bathroom. Last BM 05/31/2017. 05/31/2017: Sitting up in bed continues to be anxious. Heart rate is in normal sinus rhythm. Cardizem drip converted to oral and by mouth amiodarone. Remains very short of breath, has moderate amount of lower extremity edema continues to receive IV Lasix. Tolerating her diet eating 100% of her meal requires assistance to ambulate to and from the bathroom. Last BM 05/30/2017. 05/30/2017: Patient sitting up in the bed, appears somewhat anxious. Remains in atrial fibrillation, heart rate runs in the 1 teens to 140s, remains on Cardizem and amiodarone, tolerating her diet, ambulatory to and from the bathroom with some assistance, last BM 05/30/2017. 05/29/2017: Lying in bed appears mildly anxious, IV Cardizem continues remains in atrial fibrillation rate in the 1 teens to 120s. Patient has not yet converted. Has a cough with shortness of breath with minimal exertion. Up with assistance, tolerating her diet eating between 50 and 75% of her meals, last BM prior to admission. REVIEW OF SYSTEMS: Done for constitutional ,cardiovascular, GI, pulmonary with relevant findings as above. CURRENT MEDICATIONS Albuterol sulfate nebulized, amiodarone , Apixaban, Lipitor, Pulmicort, diltiazem, Lasix, insulin per sliding scale, melatonin, Lopressor, potassium replacement protocol, Zoloft. PHYSICAL EXAM VITAL SIGNS: Temperature 98.1, pulse 61, respiratory rate 18, blood pressure 149/90, oxygen saturation 92% on room air. GENERAL APPEARANCE: Lying in bed, mildly anxious appearing. HEENT: Normocephalic, Pupils equal. Conjunctiva normal. JVD raised. Mass not palpable.: RESPIRATORY: Respiratory effort crease. Lungs diminished to auscultation. CARDIOVASCULAR: Irregular rhythm moderate edema. ABDOMEN: Soft. Liver and spleen not palpable. No tenderness. No mass palpable. PSYCHIATRY: Alert and oriented x3. Mood and affect mildly anxious. INVESTIGATIONS: White blood cell count 13.6, hemoglobin 10.4, chloride 96, carbon dioxide 34, BUN 36, creatinine 1.60, Accu-Cheks noted. ASSESSMENT: -Acute on chronic congestive heart failure exacerbation from diastolic dysfunction, ejection fraction 55-60%, from hypertensive heart disease and atrial fibrillation slow to respond -Paroxysmal Atrial fibrillation, new onset, with rapid ventricular rate, present on admission, slow to respond -Acute kidney injury likely prerenal secondary to diuretic use, improving -Hypertensive heart disease. -Acute chronic obstructive pulmonary disease exacerbation and an ex-smoker. -Chronic nodular changes on computed tomography scan of the chest could be granulomas -Chronic rheumatoid arthritis. -Hyperlipidemia. -Essential hypertension. -Anxiety and depression not otherwise specified. PLAN: Continue Cardizem and amiodarone oral and beta blockers, IV Lasix as well as nebulized bronchodilators. Chest x-ray in the morning. Oral anticoagulation continues in the form of Apixaban. Plan of care discussed at the bedside with patient, she is agreeable. We'll follow closely. [employer] statement: Patient was seen and examined by nurse practitioner Georgia Perez and all elements of the case discussed with attending Dr. Hudson
--- NOTE | 2017-06-02 14:24 | P.PN ---
Subjective Progress Note Date: 06/02/17 Principal diagnosis: Acute on chronic diastolic congestive heart failure This is a 71-year-old female with history of COPD, remote heavy smoking history , however she quit smoking a few years back. Patient used to be at least a 60- pack-year smoker, maintained normally on Ventolin for her underlying presumptive COPD by her primary care physician.patient presented to the ER yesterday with 1 week history of increased shortness of breath, nonproductive cough, increased swelling, some wheezing, but no fever no chills no hemoptysis no chest pain.upon presentation, the patient was noted to be in atrial fibrillation with RVR, and her chest x-ray showed evidence of bilateral pleural effusions, and fluids as noted in the right major fissure, looks like a pseudotumor. There was also evidence of bibasilar compressive atelectasis. And some bilateral nonspecific nodular densities. Her pro BNP level was elevated.CBC was normal. Basic metabolic profile was normal. Creatinine 1.20. Patient was placed on Cardizem drip and on heparin, she was also diuresed, feeling much better by the time I evaluated the patient this morning. Presently no headache no blurred vision no dizziness, no chest pain, denies any palpitations, no nausea no vomiting no abdominal pain no melena no hematemesis is no dysuria and no frequency no urgency. Reevaluated today on 05/30/2017, patient remains in A. fib, presently on amiodarone and Cardizem. Feeling better, less shortness of breath, no cough no wheezing, continues to have significant swelling in her lower extremities. WBC count is 12.8 hemoglobin is 10 electrolytes are normal BUN is 30 creatinine 1.30 , slightly worse since admission. No chest x-ray was done today. ET of the chest which was done on admission was reviewed again Patient was reevaluated today on 05/31/2017, remains on Cardizem drip, her rate seems to be better controlled, patient is also on oral amiodarone, however she is complaining of shortness of breath today.chest x-ray continues to show some evidence of congestive heart failure, the pseudotumor was again noted on the chest x-ray today, hence I recommended more diuretics for this patient. On 06/01/2017 patient seen in follow-up on [facility] care floor. Currently on room air, with O2 sat between 92 and 95%. Remains in atrial fibrillation, with poorly controlled rates, currently at 126 BPM. She remains on amiodarone 400 by mouth twice a day, cardiology has increased her dose of oral Cardizem to 60 mg by mouth 3 times a day. Patient continues on IV Lasix at 60 mg every 12 hours. She is a -2100 mL fluid balance over the last 24 hours. No new chest x- ray today. Her chest x-ray from 05/31/2017 shows a pseudomass in the right lung , cardiomegaly, small bilateral effusions. Her lungs are positive for bibasilar rales, her bilateral lower extremities are positive for 1+ pitting edema. On 06/02/2017 patient seen again. Currently on room air, with O2 sat at 96%. Vital signs are stable, afebrile, heart rate remains in the 112-126 range. Cardiology is adjusting her cardiac meds. Patient is on Eliquis. Lung sounds are much improved, no wheezes, no rales noted. She denies any worsening shortness of breath. Bilateral lower extremity edema is improving. She is in - 760 mL fluid balance over the last 24 hours. Her weight is down 3 kg in the last 24 hours as well. From pulmonary standpoint the patient is stable for discharge today, but her heart rate is still poorly controlled, for that reason her discharge is being held today. Objective - Vital Signs Vital signs: Vital Signs Temp 97.1 F L 06/02/17 08:00 Pulse 126 H 06/02/17 12:00 Resp 18 06/02/17 04:00 BP 137/95 06/02/17 12:00 Pulse Ox 96 06/02/17 12:00 Intake & Output 06/01/17 06/02/17 06/02/17 18:59 06:59 18:59 Intake Total 540 480 Output Total 700 600 Balance -160 -600 480 Weight 66 kg Intake: Oral 540 480 Output: Urine 700 600 Other: # Voids 3 - Exam Physical Exam: Revealed a 71-year-old female in no distress. HEENT:[Neck is supple.] [No neck masses.] [No thyromegaly.] [No JVD.] Chest: crackles at the bases, some wheezing noted on forced expiratory maneuver only.] Cardiac Exam: irregular irregular rhythm[Normal S1 and S2, no S3 gallop, no murmur.] Abdomen: [Soft, nontender, no megaly, no rebound, no guarding, normal bowel sounds.] Extremities: [No clubbing, 2+ bipedal edema, no cyanosis.]good distal pulses bilaterally. Neurological Exam: [No focal neurologic deficit.] lymphatics: No lymphadenopathy. Psychiatric: Slightly anxious, normal mood and affect, normal mental status examination. - Labs CBC & Chem 7: 06/02/17 05:34 06/02/17 05:34 Labs: Abnormal Lab Results - Last 24 Hours (Table) 06/01/17 06/02/17 06/02/17 Range/Units 20:46 05:34 05:34 WBC 10.7 H (3.8-10.6) k/uL RBC 3.64 L (3.80-5.40) m/uL Hgb 10.3 L (11.4-16.0) gm/dL MCHC 29.7 L (31.0-37.0) g/dL Neutrophils # 8.9 H (1.3-7.7) k/uL Lymphocytes # 0.7 L (1.0-4.8) k/uL Potassium 3.4 L (3.5-5.1) mmol/L Chloride 91 L (98-107) mmol/L Carbon Dioxide 38 H (22-30) mmol/L BUN 32 H (7-17) mg/dL Creatinine 1.40 H (0.52-1.04) mg/dL Glucose 106 H (74-99) mg/dL POC Glucose (mg/dL) 126 H (75-99) mg/dL 06/02/17 06/02/17 Range/Units 05:38 11:40 WBC (3.8-10.6) k/uL RBC (3.80-5.40) m/uL Hgb (11.4-16.0) gm/dL MCHC (31.0-37.0) g/dL Neutrophils # (1.3-7.7) k/uL Lymphocytes # (1.0-4.8) k/uL Potassium (3.5-5.1) mmol/L Chloride (98-107) mmol/L Carbon Dioxide (22-30) mmol/L BUN (7-17) mg/dL Creatinine (0.52-1.04) mg/dL Glucose (74-99) mg/dL POC Glucose (mg/dL) 112 H 101 H (75-99) mg/dL Assessment and Plan Plan: Assessment: 1 acute on chronic diastolic congestive heart failure, recent echocardiogram showed good LV function. 2 new onset atrial fibrillation with RVR, patient currently on oral amiodarone, oral Cardizem, and Eliquis. Rate is still poorly controlled. Cardiology has adjusted the dose of oral Cardizem. 3 history of COPD, severity of which is not clear, patient has been a heavy smoker over the years, must have outpatient follow-up, in the meantime continue updrafts in the form of albuterol and Atrovent. 4 right major fissure pseudotumor, strongly doubt malignancy. 5 nonspecific nodular densities in both lungs, repeat CT of the chest in 4 months on outpatient basis. 6 history of benign essential hypertension. Recommendation: Continues to improve, weight is down 3 kg in the last 24 hours, she is in negative fluid balance. Cardiology is making further adjustments to her cardiac meds, heart rate is still poorly controlled, remains in A. fib. Follow- up chest x-ray in the a.m. I performed a history & physical examination of the patient and discussed their management with my nurse practitioner, Sasha Knutson. I reviewed the nurse practitioner's note and agree with the documented findings and plan of care. Lung sounds are negative for any rales, wheezes or rhonchi. The findings and the impression was discussed with the patient. I attest to the documentation by the nurse practitioner. Time with Patient: Less than 30
--- NOTE | 2017-06-02 15:41 | P.PN ---
Subjective Progress Note Date: 06/02/17 Principal diagnosis: sob This is a pleasant 71-year-old female patient who follows with Dr. Solis in the office. Has a history of asthma, hypertension and recent admission for acute on chronic diastolic congestive heart failure. Presented this admission with complaints of worsening shortness of breath over about a week with lower extremity edema. Upon presentation she was found to be in atrial fibrillation with rapid ventricular response and was placed on a Cardizem drip heparin drip. BNP was quite elevated at 9130. Labs show normal thyroid function and negative troponins at 0.016, 0.017 and less than 0.012 and a BUN of 22 and creatinine 1.18. In reviewing her previous chart, echocardiogram showed normal LV systolic function with an ejection fraction of 55-60%. Vital signs show pressure initially high however fairly well controlled over the last several hours. Heart rates are poorly controlled on Cardizem 15 mg an hour. Upon examination, patient remainsshort of breath and complains of lower extremity edema. She has no complaints of dizziness or lightheadedness. 06/01/2017 Patient seen and examined this morning, continues to be in atrial fibrillation, heart rate heart rate in the low 1 teens to 120s. Dose of Cardizem was increased to 3 times a day last evening, today we will increase that to 90 mg 3 times a day for more optimal heart rate control. Continue current dose of beta jil along with amiodarone. 06/02 2017 Patient seen and examined this morning, feeling very well today, she's been up ambulating without any difficulty. Denies any shortness of breath, no palpitations, continues to have peripheral edema however improved from admission. Heart rate today in the 130s to 140s. We will increase the dose of beta jil to a Metoprolol 50 mg one tablet by mouth 3 times a day for more optimal heart rate control. Plan for possible discharge home in the morning if stable. Objective - Vital Signs Vital signs: Vital Signs Temp 97.1 F L 06/02/17 08:00 Pulse 111 H 06/02/17 15:35 Resp 18 06/02/17 04:00 BP 137/95 06/02/17 12:00 Pulse Ox 96 06/02/17 12:00 Intake & Output 06/01/17 06/02/17 06/02/17 18:59 06:59 18:59 Intake Total 540 716 Output Total 700 600 Balance -160 -600 716 Weight 66 kg Intake: Oral 540 716 Output: Urine 700 600 Other: # Voids 3 - Exam PHYSICAL EXAMINATION: HEENT: Head is atraumatic, normocephalic. Pupils equal, round. Neck is supple. There is no elevated jugular venous pressure. HEART EXAMINATION: Heart S1 and S2 irregularly irregular CHEST EXAMINATION: Which revealed decreased air exchange throughout. Fine crackles to the bases. ABDOMEN: Soft, nontender. Bowel sounds are heard. No organomegaly noted. EXTREMITIES:[ 2+ peripheral pulses with no evidence trace to 1+ peripheral edema . NEUROLOGIC patient is awake, alert and oriented -3. . - Labs CBC & Chem 7: 06/02/17 05:34 06/02/17 05:34 Labs: Abnormal Lab Results - Last 24 Hours (Table) 06/01/17 06/02/17 06/02/17 Range/Units 20:46 05:34 05:34 WBC 10.7 H (3.8-10.6) k/uL RBC 3.64 L (3.80-5.40) m/uL Hgb 10.3 L (11.4-16.0) gm/dL MCHC 29.7 L (31.0-37.0) g/dL Neutrophils # 8.9 H (1.3-7.7) k/uL Lymphocytes # 0.7 L (1.0-4.8) k/uL Potassium 3.4 L (3.5-5.1) mmol/L Chloride 91 L (98-107) mmol/L Carbon Dioxide 38 H (22-30) mmol/L BUN 32 H (7-17) mg/dL Creatinine 1.40 H (0.52-1.04) mg/dL Glucose 106 H (74-99) mg/dL POC Glucose (mg/dL) 126 H (75-99) mg/dL 06/02/17 06/02/17 Range/Units 05:38 11:40 WBC (3.8-10.6) k/uL RBC (3.80-5.40) m/uL Hgb (11.4-16.0) gm/dL MCHC (31.0-37.0) g/dL Neutrophils # (1.3-7.7) k/uL Lymphocytes # (1.0-4.8) k/uL Potassium (3.5-5.1) mmol/L Chloride (98-107) mmol/L Carbon Dioxide (22-30) mmol/L BUN (7-17) mg/dL Creatinine (0.52-1.04) mg/dL Glucose (74-99) mg/dL POC Glucose (mg/dL) 112 H 101 H (75-99) mg/dL Assessment and Plan Plan: Assessment: #1 new onset atrial fibrillation with rapid ventricular response, paroxysmal #2 acute on chronic diastolic congestive heart failure, recent echocardiogram shows normal LV systolic function #3 asthma #4 hypertension Plan From cardiology's perspective, we'll increase the beta jil dose to 50 mg one tablet by mouth 3 times a day today. Continue to monitor for 24 hours, plan for possible discharge home in the morning if stable. DNP note has been reviewed, I agree with a documented findings and plan of care. Patient was seen and examined.
[2017-06-02 16:47] LABS: Glucose,Whole Blood 99 mg/dL (75-99)
[2017-06-02] MEDS: METOPROLOL TARTRATE 50 MG TAB PO SCH ×2 (17:47→20:46)
--- NOTE | 2017-06-02 17:47 | P.PN ---
Progress Note - Text Progress Note Date: 06/02/17 DATE OF SERVICE: 06/02/2017 PRESENTING COMPLAINT: Shortness of breath HISTORY OF PRESENT ILLNESS: 71-year-old female presented with 2 weeks of increasing shortness of breath some wheezing minimal cough, does not have any fever or lower extremity edema, felt her heart racing and decided to come in. Uses 2 pillows at night. Found to be in congestive heart failure with atrial fibrillation with rapid ventricular rate admitted for the same. Placed on a Cardizem drip and heparin drip. INTERVAL HISTORY: 06/02/2017: Sitting up on the edge of the bed, very anxious and upset because she's know she is not going to go home as her atrial fibrillation continues to be uncontrolled. Rate is in the 130s to 140s. No shortness of breath patient received 2 doses of IV Lasix 60 mg one yesterday and one today. Negative fluid balance of -1890 mL. Patient is quite upset when I was talking to her regarding discharge planning very insistent on wanting to go home. Explained the necessity of seeing cardiology prior to going home and waiting for them to make necessary adjustments to control the heart rate. Patient states her appetite is gotten lower only eating about 50% of her meals. Ambulatory in the room and hallway, moved her bowels 06/01/2017. 06/01/2017: Sitting at the bedside, very anxious and wants to go home. Very early this morning patient went back to atrial fibrillation, Cardizem increased. Beta jil and amiodarone also continue. Tolerating her diet eating 100% of her meals, requires some assistance to ambulate to and from the bathroom. Last BM 05/31/2017. 05/31/2017: Sitting up in bed continues to be anxious. Heart rate is in normal sinus rhythm. Cardizem drip converted to oral and by mouth amiodarone. Remains very short of breath, has moderate amount of lower extremity edema continues to receive IV Lasix. Tolerating her diet eating 100% of her meal requires assistance to ambulate to and from the bathroom. Last BM 05/30/2017. 05/30/2017: Patient sitting up in the bed, appears somewhat anxious. Remains in atrial fibrillation, heart rate runs in the 1 teens to 140s, remains on Cardizem and amiodarone, tolerating her diet, ambulatory to and from the bathroom with some assistance, last BM 05/30/2017. 05/29/2017: Lying in bed appears mildly anxious, IV Cardizem continues remains in atrial fibrillation rate in the 1 teens to 120s. Patient has not yet converted. Has a cough with shortness of breath with minimal exertion. Up with assistance, tolerating her diet eating between 50 and 75% of her meals, last BM prior to admission. REVIEW OF SYSTEMS: Done for constitutional ,cardiovascular, GI, pulmonary with relevant findings as above. CURRENT MEDICATIONS Albuterol sulfate nebulized, amiodarone , Apixaban, Lipitor, Pulmicort, diltiazem, Lasix, insulin per sliding scale, melatonin, Lopressor, potassium replacement protocol, Zoloft. PHYSICAL EXAM VITAL SIGNS: Temperature 98.1, pulse 61, respiratory rate 18, blood pressure 149/90, oxygen saturation 92% on room air. GENERAL APPEARANCE: Lying in bed, mildly anxious appearing. HENT: Normocephalic. JVD raised. Mass not palpable. EYES:Pupils equal. Conjunctiva normal RESPIRATORY: Respiratory effort crease. Lungs diminished to auscultation. CARDIOVASCULAR: Irregular rhythm moderate edema. ABDOMEN: Soft. Liver and spleen not palpable. No tenderness. No mass palpable. PSYCHIATRY: Alert and oriented x3. Mood and affect mildly anxious. INVESTIGATIONS: White blood cell count 10.7, hemoglobin 10.3, potassium 3.4, chloride 91, carbon dioxide 38, BUN 32, creatinine 1.40 Accu-Cheks noted. ASSESSMENT: -Acute on chronic congestive heart failure exacerbation from diastolic dysfunction, ejection fraction 55-60%, from hypertensive heart disease and atrial fibrillation slow to respond -Paroxysmal Atrial fibrillation, new onset, with rapid ventricular rate, present on admission, slow to respond -Acute kidney injury likely prerenal secondary to diuretic use, worsening -Hypertensive heart disease. -Acute chronic obstructive pulmonary disease exacerbation and an ex-smoker. -Chronic nodular changes on computed tomography scan of the chest could be granulomas -Chronic rheumatoid arthritis. -Hyperlipidemia. -Essential hypertension. -Anxiety and depression not otherwise specified. PLAN: Metoprolol increased to 1 tablet 3 times a day. Oral anticoagulation continues in the form of Apixaban. Continue on Lasix 40 mg by mouth daily We' ll reevaluate kidney function in the morning. Plan of care discussed at the bedside with patient, she is agreeable. We'll follow closely. WINDOW DRAPER statement: Patient was seen and examined by nurse practitioner Georgia Perez and all elements of the case discussed with attending Dr. Hudson
[2017-06-02] MEDS ORDERED: FUROSEMIDE 10 MG/ML 10 ML VIAL IV STA (20:32)
[2017-06-02] MEDS: ATORVASTATIN 20 MG TAB PO SCH (20:46)
[2017-06-02 21:21] LABS: Glucose,Whole Blood 115 mg/dL (75-99)
--- NOTE | 2017-06-02 21:56 | PN ---
PROGRESS NOTE DATE OF SERVICE: 06/02/17. ATTENDING NOTE: The patient seen and examined by me. Discussed with my nurse practitioner, Ms. Perez. The patient presents with CHF exacerbation and atrial fibrillation uncontrolled. Atrial fibrillation generally remains uncontrolled. PHYSICAL EXAMINATION: On examination, afebrile, pulse 124, blood pressure 120/103, pulse ox 94% on room air. LUNGS: Decreased breath sounds. Neck veins prominent. HEART: Sounds irregular. Edema present. BUN 32, creatinine 1.40. ASSESSMENT: 1. New onset atrial fibrillation, rate uncontrolled. 2. Acute congestive heart failure exacerbation. PLAN: Metoprolol increased to 50 mg 3 times a day. The patient is on Eliquis. The patient is still a bit short of breath. Will give 1 extra dose of Lasix now. MMODL / IJN: [id number] /
[2017-06-02] MEDS: MELATONIN 3 MG TABLET PO SCH (23:12)
[2017-06-03 06:06] LABS: Glucose,Whole Blood 104 mg/dL (75-99)
[2017-06-03 06:14] LABS: Basophils % (A) 0 %; Eosinophils # (A) 0.1 k/uL (0-0.7); Eosinophils % (A) 1 %; HCT 31.6 % (34.0-46.0); HGB 9.5 gm/dL (11.4-16.0); Hypochromasia Moderate; Lymphocytes # (A) 0.5 k/uL (1.0-4.8); Lymphocytes % (A) 5 %; MCH 28.9 pg (25.0-35.0); MCHC 30.1 g/dL (31.0-37.0); Mean Platelet Volume 7.4; Monocytes # (A) 0.6 k/uL (0-1.0); Monocytes % (A) 6 %; Neutrophils # (A) 9.1 k/uL (1.3-7.7); Neutrophils % (A) 86 %; Platelet Count 302 k/uL (150-450); RBC 3.29 m/uL (3.80-5.40); RDW 15.7 % (11.5-15.5); WBC 10.6 k/uL (3.8-10.6)
[2017-06-03] MEDS: INSULIN ASPART 100 UNIT/ML 1 ML 10 ML VIAL SQ SCH ×2 (06:17→12:07)
[2017-06-03 06:21] VITALS: RESP 18
[2017-06-03 06:31] LABS: Calcium 8.4 mg/dL (8.4-10.2); Potassium 3.4 mmol/L (3.5-5.1)
[2017-06-03] MEDS: ALBUTEROL NEBULIZED 2.5 MG/3 ML INHALATION SCH ×2 (08:35→11:38)
[2017-06-03] MEDS: BUDESONIDE 1 MG/2 ML NEBU INHALATION SCH (08:35)
--- NOTE | 2017-06-03 08:35 | XR ---
EXAMINATION TYPE: XR chest 2V DATE OF EXAM: 06/03/2017 COMPARISON: 05/31/2017 HISTORY: Congestive heart failure TECHNIQUE: Frontal and lateral views of the chest are obtained. FINDINGS: There is no focal air space opacity or pneumothorax seen. Trace left pleural effusion brian nts the costophrenic angle. Cardiomediastinal silhouette is enlarged. The osseous structures are inta ct. The previously seen 2.8 cm pseudomass is not well visualized on today's examination, readily seen on the prior 05/31/2017. Overall there is improved aeration of the lungs. Minimal cephalization remai ns. IMPRESSION: Improved aeration of the lungs with only minimal pulmonary vascular congestion and trace left pleural effusion remaining.
[2017-06-03] MEDS: METOPROLOL TARTRATE 50 MG TAB PO SCH (08:43)
[2017-06-03] MEDS: AMIODARONE 200 MG TAB PO SCH (08:44)
[2017-06-03] MEDS: APIXABAN 5 MG TAB PO SCH (08:44)
[2017-06-03] MEDS: DILTIAZEM ORAL 60 MG TAB PO SCH (08:44)
[2017-06-03] MEDS: SERTRALINE 50 MG TAB PO SCH (08:44)
[2017-06-03] MEDS: POTASSIUM CHLORIDE ER 20 MEQ TAB.ER PO SCH ×3 (08:45→12:06)
[2017-06-03 08:47] VITALS: TEMP 97.5
[2017-06-03] MEDS ORDERED: FUROSEMIDE 40 MG TAB PO SCH (09:00)
[2017-06-03] MEDS ORDERED: Magnesium Replacement Protocol 1 EACH MISC MISCELLANE PRN (10:28)
[2017-06-03 11:30] LABS: Glucose,Whole Blood 98 mg/dL (75-99)
--- NOTE | 2017-06-03 11:55 | P.PN ---
Subjective Progress Note Date: 06/03/17 Principal diagnosis: Acute on chronic diastolic congestive heart failure This is a 71-year-old female with history of COPD, remote heavy smoking history , however she quit smoking a few years back. Patient used to be at least a 60- pack-year smoker, maintained normally on Ventolin for her underlying presumptive COPD by her primary care physician.patient presented to the ER yesterday with 1 week history of increased shortness of breath, nonproductive cough, increased swelling, some wheezing, but no fever no chills no hemoptysis no chest pain.upon presentation, the patient was noted to be in atrial fibrillation with RVR, and her chest x-ray showed evidence of bilateral pleural effusions, and fluids as noted in the right major fissure, looks like a pseudotumor. There was also evidence of bibasilar compressive atelectasis. And some bilateral nonspecific nodular densities. Her pro BNP level was elevated.CBC was normal. Basic metabolic profile was normal. Creatinine 1.20. Patient was placed on Cardizem drip and on heparin, she was also diuresed, feeling much better by the time I evaluated the patient this morning. Presently no headache no blurred vision no dizziness, no chest pain, denies any palpitations, no nausea no vomiting no abdominal pain no melena no hematemesis is no dysuria and no frequency no urgency. Reevaluated today on 05/30/2017, patient remains in A. fib, presently on amiodarone and Cardizem. Feeling better, less shortness of breath, no cough no wheezing, continues to have significant swelling in her lower extremities. WBC count is 12.8 hemoglobin is 10 electrolytes are normal BUN is 30 creatinine 1.30 , slightly worse since admission. No chest x-ray was done today. ET of the chest which was done on admission was reviewed again Patient was reevaluated today on 05/31/2017, remains on Cardizem drip, her rate seems to be better controlled, patient is also on oral amiodarone, however she is complaining of shortness of breath today.chest x-ray continues to show some evidence of congestive heart failure, the pseudotumor was again noted on the chest x-ray today, hence I recommended more diuretics for this patient. On 06/01/2017 patient seen in follow-up on [facility] care floor. Currently on room air, with O2 sat between 92 and 95%. Remains in atrial fibrillation, with poorly controlled rates, currently at 126 BPM. She remains on amiodarone 400 by mouth twice a day, cardiology has increased her dose of oral Cardizem to 60 mg by mouth 3 times a day. Patient continues on IV Lasix at 60 mg every 12 hours. She is a -2100 mL fluid balance over the last 24 hours. No new chest x- ray today. Her chest x-ray from 05/31/2017 shows a pseudomass in the right lung , cardiomegaly, small bilateral effusions. Her lungs are positive for bibasilar rales, her bilateral lower extremities are positive for 1+ pitting edema. On 06/02/2017 patient seen again. Currently on room air, with O2 sat at 96%. Vital signs are stable, afebrile, heart rate remains in the 112-126 range. Cardiology is adjusting her cardiac meds. Patient is on Eliquis. Lung sounds are much improved, no wheezes, no rales noted. She denies any worsening shortness of breath. Bilateral lower extremity edema is improving. She is in - 760 mL fluid balance over the last 24 hours. Her weight is down 3 kg in the last 24 hours as well. From pulmonary standpoint the patient is stable for discharge today, but her heart rate is still poorly controlled, for that reason her discharge is being held today. The patient is seen again today 06/03/2017 in follow-up on the selective care unit. She is awake and alert in no acute distress. She denies any worsening shortness of breath, cough or congestion. She is maintaining good O2 saturations in the mid 90s on room air. Today's x-ray reveals improved aeration of the lungs with only minimal pulmonary vascular congestion and trace left pleural effusion remaining. She is afebrile. No fever, chills or night sweats. No leukocytosis. Creatinine 1.22. Objective - Vital Signs Vital signs: Vital Signs Temp 97.5 F L 06/03/17 08:00 Pulse 122 H 06/03/17 08:00 Resp 18 06/03/17 04:00 BP 143/92 06/03/17 08:00 Pulse Ox 94 L 06/03/17 08:00 Intake & Output 01/16/18 01/17/18 01/17/18 18:59 06:59 18:59 Intake Total 956 240 Output Total 1100 Balance 956 -1100 240 Weight 64.4 kg Intake: Oral 956 240 Output: Urine 1100 Other: # Voids 1 - Exam GENERAL EXAM: Alert, active, comfortable in no apparent distress. HEAD: Normocephalic. EYES: Normal reaction of pupils, equal size. NOSE: Clear with pink turbinates. THROAT: No erythema or exudates. NECK: No masses, no JVD. CHEST: No chest wall deformity. LUNGS: Equal air entry with echoes in the left lung base. CVS: S1 and S2 normal with no audible murmur, regular rhythm. ABDOMEN: No hepatosplenomegaly, normal bowel sounds, no guarding or rigidity. SPINE: No scoliosis or deformity SKIN: No rashes CENTRAL NERVOUS SYSTEM: No focal deficits, tone is normal in all 4 extremities. EXTREMITIES: There is trace peripheral edema. No clubbing, no cyanosis. Peripheral pulses are intact. - Labs CBC & Chem 7: 06/03/17 05:47 06/03/17 05:47 Labs: Abnormal Lab Results - Last 24 Hours (Table) 06/02/17 06/03/17 06/03/17 Range/Units 21:20 05:47 05:47 RBC 3.29 L (3.80-5.40) m/uL Hgb 9.5 L (11.4-16.0) gm/dL Hct 31.6 L (34.0-46.0) % MCHC 30.1 L (31.0-37.0) g/dL RDW 15.7 H (11.5-15.5) % Neutrophils # 9.1 H (1.3-7.7) k/uL Lymphocytes # 0.5 L (1.0-4.8) k/uL Sodium 135 L (137-145) mmol/L Potassium 3.4 L (3.5-5.1) mmol/L Chloride 92 L (98-107) mmol/L Carbon Dioxide 33 H (22-30) mmol/L BUN 31 H (7-17) mg/dL Creatinine 1.22 H (0.52-1.04) mg/dL POC Glucose (mg/dL) 115 H (75-99) mg/dL 06/03/17 Range/Units 06:04 RBC (3.80-5.40) m/uL Hgb (11.4-16.0) gm/dL Hct (34.0-46.0) % MCHC (31.0-37.0) g/dL RDW (11.5-15.5) % Neutrophils # (1.3-7.7) k/uL Lymphocytes # (1.0-4.8) k/uL Sodium (137-145) mmol/L Potassium (3.5-5.1) mmol/L Chloride (98-107) mmol/L Carbon Dioxide (22-30) mmol/L BUN (7-17) mg/dL Creatinine (0.52-1.04) mg/dL POC Glucose (mg/dL) 104 H (75-99) mg/dL Assessment and Plan Assessment: Assessment: 1 acute on chronic diastolic congestive heart failure, recent echocardiogram showed good LV function. 2 new onset atrial fibrillation with RVR, patient currently on oral amiodarone, oral Cardizem, and Eliquis. Cardiology has adjusted the dose of oral Cardizem. 3 history of COPD, severity of which is not clear, patient has been a heavy smoker over the years, must have outpatient follow-up, in the meantime continue updrafts in the form of albuterol and Atrovent. 4 right major fissure pseudotumor, strongly doubt malignancy. 5 nonspecific nodular densities in both lungs, repeat CT of the chest in 4 months on outpatient basis. 6 history of benign essential hypertension. Recommendation: The patient was seen and evaluated by Dr. Pineda. She is stable from the pulmonary standpoint he could be discharged home once cleared by cardiology. She could follow-up in our office in 1 week's time. She'll need full pulmonary function testing to evaluate the severity of her suspected COPD and make recommendations for maintenance medications. She is however encouraged to call sooner if any recurrence of symptoms or other questions or concerns. I, the cosigning physician, performed a history & physical examination of the patient. Lungs sounds have faint crackles in the left posterior base.. Maintaining good O2 saturations in the 90s on room air. I discussed the assessment and plan of care with my nurse practitioner, Shakila Munson. I attest to the above note as dictated by her.
[2017-06-03] MEDS: MAGNESIUM SULFATE-D5W PMX 1 GM in DEXTROSE/WATER 1 100ML.BAG IVPB SCH ×2 (12:06→13:10)
[2017-06-03] MEDS ORDERED: MAGNESIUM OXIDE 400 MG TAB PO STA (12:58)
--- NOTE | 2017-06-03 13:16 | DS ---
DISCHARGE SUMMARY DATE OF ADMISSION: 05/28/2017 DATE OF DISCHARGE: 06/03/2017 FINAL DIAGNOSES: 1. Acute on chronic congestive heart failure exacerbation from diastolic dysfunction. EF 55% to 60% from hypertensive heart disease and atrial fibrillation contributing to the same. 2. Persistent atrial fibrillation with rapid ventricular rate, present on admission. 3. Acute renal failure likely prerenal from diuresis. 4. Hypertensive heart disease. 5. Acute chronic obstructive pulmonary disease exacerbation in an ex-smoker. 6. Chronic nodular changes on the CT scan, likely granulomatous disease to be followed up with Pulmonary as an outpatient. 7. Chronic rheumatoid arthritis. 8. Hyperlipidemia. 9. Essential hypertension. 10.Anxiety, depression, not otherwise specified. HOSPITAL COURSE: This patient presented with with short of breath, wheezing, found to be in COPD exacerbation and CHF. Did respond well to IV Lasix. Also had atrial fibrillation . Medications were adjusted. Seen by Dr. Sampson who okayed the patient to be discharged today. Heart rate is running in one teens. Patient is up and about in the hallway. Overall doing much better. The patient's BUN and creatinine is 31 and 1.22. Care was discussed with the patient at length. ON EXAMINATION: LUNGS: Decreased breath sounds. Heart is irregular. Edema is greatly improved. DISCHARGE MEDICATIONS: 1. Ventolin HFA 1 to 2 puffs q.6 p.r.n. 2. Lipitor 20 mg q.h.s. 3. Calcitriol 0.25 mcg p.o. on Thursday. 4. Zoloft 50 mg p.o. daily. 5. Vitamin D2, 50,000 units p.o. every 14 days. 6. Cordarone 400 mg p.o. b.i.d. 7. Eliquis 5 mg p.o. b.i.d. 8. Cardizem 60 mg p.o. t.i.d. 9. Lasix 40 mg p.o. daily. 10.DuoNeb 3 times a day. 11.Melatonin 3 mg q.h.s. 12.Lopressor 50 mg p.o. t.i.d. 13.Potassium 20 mEq use p.o. daily. Follow up with Dr. Talbot in 1 week; Dr. Alicia Curry in 1 week; Dr. Desai in 3 days. CBC, BMP in 3 days. CONSULTATION: Dr. Sampson from Cardiology, Dr. Talbot from Pulmonary. Discussion and discharge planning more than 35 minutes. MMODL / IJN: [id number] /
--- NOTE | 2017-06-03 15:33 | P.PN ---
Subjective Progress Note Date: 06/03/17 Principal diagnosis: sob This is a pleasant 71-year-old female patient who follows with Dr. Solis in the office. Has a history of asthma, hypertension and recent admission for acute on chronic diastolic congestive heart failure. Presented this admission with complaints of worsening shortness of breath over about a week with lower extremity edema. Upon presentation she was found to be in atrial fibrillation with rapid ventricular response and was placed on a Cardizem drip heparin drip. BNP was quite elevated at 9130. Labs show normal thyroid function and negative troponins at 0.016, 0.017 and less than 0.012 and a BUN of 22 and creatinine 1.18. In reviewing her previous chart, echocardiogram showed normal LV systolic function with an ejection fraction of 55-60%. Vital signs show pressure initially high however fairly well controlled over the last several hours. Heart rates are poorly controlled on Cardizem 15 mg an hour. Upon examination, patient remainsshort of breath and complains of lower extremity edema. She has no complaints of dizziness or lightheadedness. 06/01/2017 Patient seen and examined this morning, continues to be in atrial fibrillation, heart rate heart rate in the low 1 teens to 120s. Dose of Cardizem was increased to 3 times a day last evening, today we will increase that to 90 mg 3 times a day for more optimal heart rate control. Continue current dose of beta jil along with amiodarone. 06/02 2017 Patient seen and examined this morning, feeling very well today, she's been up ambulating without any difficulty. Denies any shortness of breath, no palpitations, continues to have peripheral edema however improved from admission. Heart rate today in the 130s to 140s. We will increase the dose of beta jil to a Metoprolol 50 mg one tablet by mouth 3 times a day for more optimal heart rate control. Plan for possible discharge home in the morning if stable. 2017 A shunt seen and examined this morning, feeling well, up ambulating in the yee most of the morning. With ambulation a heart rate does at times go up into the 1 teens to 120 range, after sitting the patient's heart rate goes down to the 80s. She may be able to be discharged home today from cardiology's perspective , we will make her a follow-up appointment in the office to see Dr. Curry post discharge. Objective - Vital Signs Vital signs: Vital Signs Temp 97.5 F L 06/03/17 08:00 Pulse 122 H 06/03/17 08:00 Resp 18 06/03/17 04:00 BP 143/92 06/03/17 08:00 Pulse Ox 94 L 06/03/17 08:00 Intake & Output 06/02/17 06/03/17 06/03/17 18:59 06:59 18:59 Intake Total 956 480 Output Total 1100 Balance 956 -1100 480 Weight 64.4 kg Intake: Oral 956 480 Output: Urine 1100 Other: # Voids 1 - Exam PHYSICAL EXAMINATION: HEENT: Head is atraumatic, normocephalic. Pupils equal, round. Neck is supple. There is no elevated jugular venous pressure. HEART EXAMINATION: Heart S1 and S2 irregularly irregular CHEST EXAMINATION: Which revealed decreased air exchange throughout. Fine crackles to the bases. ABDOMEN: Soft, nontender. Bowel sounds are heard. No organomegaly noted. EXTREMITIES:[ 2+ peripheral pulses with no evidence trace to 1+ peripheral edema . NEUROLOGIC patient is awake, alert and oriented -3. . - Labs CBC & Chem 7: 06/03/17 05:47 06/03/17 05:47 Labs: Abnormal Lab Results - Last 24 Hours (Table) 06/02/17 06/03/17 06/03/17 Range/Units 21:20 05:47 05:47 RBC 3.29 L (3.80-5.40) m/uL Hgb 9.5 L (11.4-16.0) gm/dL Hct 31.6 L (34.0-46.0) % MCHC 30.1 L (31.0-37.0) g/dL RDW 15.7 H (11.5-15.5) % Neutrophils # 9.1 H (1.3-7.7) k/uL Lymphocytes # 0.5 L (1.0-4.8) k/uL Sodium 135 L (137-145) mmol/L Potassium 3.4 L (3.5-5.1) mmol/L Chloride 92 L (98-107) mmol/L Carbon Dioxide 33 H (22-30) mmol/L BUN 31 H (7-17) mg/dL Creatinine 1.22 H (0.52-1.04) mg/dL POC Glucose (mg/dL) 115 H (75-99) mg/dL 06/03/17 Range/Units 06:04 RBC (3.80-5.40) m/uL Hgb (11.4-16.0) gm/dL Hct (34.0-46.0) % MCHC (31.0-37.0) g/dL RDW (11.5-15.5) % Neutrophils # (1.3-7.7) k/uL Lymphocytes # (1.0-4.8) k/uL Sodium (137-145) mmol/L Potassium (3.5-5.1) mmol/L Chloride (98-107) mmol/L Carbon Dioxide (22-30) mmol/L BUN (7-17) mg/dL Creatinine (0.52-1.04) mg/dL POC Glucose (mg/dL) 104 H (75-99) mg/dL Assessment and Plan Plan: Assessment: #1 new onset atrial fibrillation with rapid ventricular response, paroxysmal #2 acute on chronic diastolic congestive heart failure, recent echocardiogram shows normal LV systolic function #3 asthma #4 hypertension Plan From cardiology's perspective, continue current medication. May be able to be discharged home from cardiology's perspective to follow-up with Dr. Solis in the office post discharge. DNP note has been reviewed, I agree with a documented findings and plan of care. Patient was seen and examined.
[2017-06-03 16:22] VITALS: BP 142/98; PULSE 111
== END 2017-06-03 15:32 | disposition home or self-care (01) | DRG 308 ==
LOC: EC 12:03 → 6SEL 14:39
PROVIDERS: ADMIT Hospitalist; ATTEND Hospitalist
DX: I48.0 Paroxysmal atrial fibrillation (principal); I50.33 Acute on chronic diastolic (congestive) heart failure; N17.9 Acute kidney failure, unspecified; J44.1 Chronic obstructive pulmonary disease with (acute) exacerbation; J98.11 Atelectasis; I11.0 Hypertensive heart disease with heart failure; E78.5 Hyperlipidemia, unspecified; I48.1 Persistent atrial fibrillation; M06.9 Rheumatoid arthritis, unspecified; F32.9 Major depressive disorder, single episode, unspecified; F41.9 Anxiety disorder, unspecified; T50.2X5A Adverse effect of carbonic-anhydrase inhibitors, benzothiadiazides and other diuretics, initial encounter; M19.90 Unspecified osteoarthritis, unspecified site; R93.8 Abnormal findings on diagnostic imaging of other specified body structures; R91.8 Other nonspecific abnormal finding of lung field; Z79.899 Other long term (current) drug therapy; Z87.891 Personal history of nicotine dependence; Z86.73 Personal history of transient ischemic attack (TIA), and cerebral infarction without residual deficits; Z82.49 Family history of ischemic heart disease and other diseases of the circulatory system
CPT/HCPCS: 36415; 71045; 71046; 71250; 80048; 80053; 82550; 82553; 83735; 83880; 84132; 84439; 84443; 84481; 84484; 85025; 85610; 85730; 93005; 94640; 94760; 96365; 96366; 96374; 96375; 96376; 99291

== ENCOUNTER 2017-07-16 06:03 | Day surgery (SDC) | payer MEDICARE, BC ==
[2017-07-14 15:54] VITALS: BMI 22.4
[2017-07-16] MEDS ORDERED: LACTATED RINGERS 1,000 ML IV SCH (06:15)
[2017-07-16] MEDS ORDERED: SODIUM CHLORIDE 0.9% 1,000 ML IV SCH ×2 (06:15→08:00)
[2017-07-16] MEDS ORDERED: ENALAPRILAT 1.25 MG/ML 1 ML VIAL IVP STA (07:18)
[2017-07-16] MEDS ORDERED: ENALAPRILAT 1.25 MG/ML 1 ML VIAL ONE (07:18)
[2017-07-16] MEDS: BENZOCAINE SPRAY 1 SPRAY CAN MUCOUS MEM ONE ×2 (07:25→07:32)
[2017-07-16 07:27] LABS: Calcium 9.8 mg/dL (8.4-10.2); Potassium 4.5 mmol/L (3.5-5.1)
[2017-07-16] MEDS ORDERED: PROPOFOL 10 MG/ML 20 ML VIAL IV ONE (07:30)
[2017-07-16] MEDS ORDERED: LIDOCAINE 1% INJ 10MG/ML (20 ML MDV) ONE (07:30)
[2017-07-16 07:58] VITALS: RESP 14
--- NOTE | 2017-07-16 08:10 | ECHOT ---
TRANSESOPHAGEAL ECHOCARDIOGRAM INDICATION: Chronic atrial fibrillation. PROCEDURE: Transesophageal echocardiogram. After obtaining informed consent, transesophageal echocardiogram was performed in left lateral position using an Omni plane probe. Local and IV sedation were obtained by the police communications dispatcher. The patient tolerated the procedure well without any obvious immediate complications. FINDINGS: 1. There is no intracardiac thrombus within the left atrial appendage, left atrium, right atrium, right ventricle or left ventricle. 2. There is spontaneous echo contrast noted. 3. The left atrium and right atrium are enlarged. 4. Left ventricle shows concentric left ventricular hypertrophy with normal LV function. 5. Mitral valve shows mild mitral regurgitation. 6. Tricuspid valve appears normal. 7. Interatrial septum: There is no evidence of [id number] shunt by color-flow Doppler or yijic-wa-[id number] shunt by agitated saline contrast study. 8. Aortic valve is a 3-leaflet valve shows aortic sclerosis without any stenosis. CONCLUSIONS: 1. No intracardiac thrombus. 2. Normal left ventricular function. PLAN: Patient will undergo cardioversion. MMODL / IJN: [id number] /
--- NOTE | 2017-07-16 08:16 | CE ---
CARDIAC ELECTROPHYSIOLOGY REPORT CARDIOVERSION NOTE After obtaining informed consent, the patient was anesthetized by the shoe clerk and patient underwent cardioversion with 250 joules of direct current. She converted to sinus rhythm following a single shock. The patient is adequately anticoagulated with Eliquis and was on amiodarone. YRN / GEE: [id number] /
[2017-07-16] MEDS ORDERED: SODIUM CHLORIDE 0.9% 500 ML IV ONE (08:21)
[2017-07-16 08:55] VITALS: TEMP 98.2
[2017-07-16] MEDS ORDERED: METOPROLOL TARTRATE 25 MG TAB PO SCH (09:00)
[2017-07-16] MEDS ORDERED: LISINOPRIL 10 MG TAB PO SCH (09:00)
[2017-07-16] MEDS ORDERED: amLODIPine 10 MG TAB PO SCH (09:00)
[2017-07-16 10:17] VITALS: BP 188/85; PULSE 64
== END 2017-07-16 09:50 | disposition home or self-care (01) ==
LOC: CATHCVL 06:03
PROVIDERS: ATTEND Internal Medicine Cardiovascular Disease
DX: I48.2 Chronic atrial fibrillation (principal); I08.0 Rheumatic disorders of both mitral and aortic valves; I09.81 Rheumatic heart failure; I11.0 Hypertensive heart disease with heart failure; I50.32 Chronic diastolic (congestive) heart failure; Z79.01 Long term (current) use of anticoagulants; Z79.899 Other long term (current) drug therapy
CPT/HCPCS: 93312; 93320; 93325; 92960; 80048; J2001; J2704; 93005

== ENCOUNTER 2017-07-26 10:27 | Inpatient (IN) | payer MEDICARE, BC ==
[2017-07-26] MEDS ORDERED: ALBUTEROL NEBULIZED 2.5 MG/3 ML INHALATION STA (10:56)
[2017-07-26] MEDS ORDERED: IPRATROPIUM 0.5 MG/2.5 ML NEBU INHALATION STA (10:56)
--- NOTE | 2017-07-26 11:01 | ED ---
General Adult HPI - General Chief complaint: Shortness of Breath Stated complaint: Difficulty Breathing Time Seen by Provider: 07/26/17 10:30 Source: patient, EMS, RN notes reviewed, old records reviewed Mode of arrival: EMS Limitations: no limitations - History of Present Illness Initial comments: 71-year-old female presenting with worsening dyspnea. Patient states she has had trouble with her breathing for the past several months. She has been admitted several times with pneumonia. She does have history of congestive heart failure, she was a long time smoker, although she has no diagnosis of COPD. She states that her breathing has been worse over the past several days. No history of fever. She states only minimal cough which is dry. She has had a runny nose over the past several days as well. Patient also notes orthopnea and bilateral lower extremity swelling. She is currently on 40 mg Lasix daily. Denies any central chest pain. - Related Data Home Medications Medication Instructions Recorded Confirmed Albuterol Inhaler [Ventolin Hfa 1 - 2 puff INHALATION RT-Q6H PRN 04/30/17 Inhaler] Sertraline HCl [Zoloft] 50 mg PO DAILY 04/30/17 07/26/17 Amiodarone [Cordarone] 200 mg PO BID 07/16/17 07/26/17 Previous Rx's Medication Instructions Recorded Apixaban [Eliquis] 5 mg PO BID #60 tab 06/03/17 Furosemide [Lasix] 40 mg PO DAILY #30 tab 06/03/17 Ipratropium-Albuterol Nebulize 3 ml INHALATION TID #90 neb 06/03/17 [Duoneb 0.5 mg-3 mg/3 ml Soln] Melatonin 3 mg PO HS tablet 06/03/17 Potassium Chloride ER [K-Dur 20] 20 meq PO DAILY #30 tab.er.prt 06/03/17 Lisinopril [Zestril] 10 mg PO DAILY tab 07/16/17 Metoprolol Tartrate [Lopressor] 25 mg PO BID tab 07/16/17 amLODIPine [Norvasc] 10 mg PO DAILY tab 07/16/17 Allergies Allergy/AdvReac Type Severity Reaction Status Date / Time No Known Allergies Allergy Verified 07/26/17 11:18 Review of Systems ROS Statement: Those systems with pertinent positive or pertinent negative responses have been documented in the HPI. ROS Other: All systems not noted in ROS Statement are negative. Past Medical History Past Medical History: Asthma, CVA/TIA, Hypertension, Osteoarthritis (OA), Pneumonia Additional Past Medical History / Comment(s): cva 2008 no residual problems, irreg heart rate,SOB History of Any Multi-Drug Resistant Organisms: None Reported Past Surgical History: Tonsillectomy Additional Past Surgical History / Comment(s): ORIF rt ankle-[address], IUD removal, lumbar steroid injections Past Anesthesia/Blood Transfusion Reactions: No Reported Reaction Additional Past Anesthesia/Blood Transfusion Reaction / Comment(s): past blood transfusions-no reaction Past Psychological History: No Psychological Hx Reported Smoking Status: Former smoker Past Alcohol Use History: None Reported Past Drug Use History: None Reported - Past Family History Mother Additional Family Medical History / Comment(s): Mother in her 80s from abdominal aortic aneurysm. Father Family Medical History: Myocardial Infarction ([place]) Additional Family Medical History / Comment(s): Father at age 52 from acute [place]. Patient has 1 brother that is healthy. Patient does not have any children. General Exam Limitations: no limitations General appearance: alert, in no apparent distress Head exam: Present: atraumatic, normocephalic Eye exam: Present: normal appearance, PERRL ENT exam: Present: normal exam Neck exam: Present: normal inspection. Absent: tenderness, meningismus Respiratory exam: Present: respiratory distress (Mild, tachypneic 30 breaths per minute), wheezes, decreased breath sounds Cardiovascular Exam: Present: regular rate, normal rhythm GI/Abdominal exam: Present: soft. Absent: distended, tenderness Extremities exam: Present: pedal edema (1-2+ pitting edema) Neurological exam: Present: alert, oriented X3, CN II-XII intact. Absent: motor sensory deficit Psychiatric exam: Present: normal affect, normal mood Skin exam: Present: warm, dry, intact. Absent: cyanosis, diaphoretic Course Vital Signs 07/26/17 07/26/17 07/26/17 10:28 10:36 10:41 Temperature 97.8 F Pulse Rate 78 70 Respiratory 30 H 30 H 30 H Rate Blood Pressure 213/99 193/91 O2 Sat by Pulse 94 L 99 Oximetry 07/26/17 07/26/17 11:05 11:18 Temperature Pulse Rate 72 74 Respiratory 18 18 Rate Blood Pressure O2 Sat by Pulse Oximetry EKG Findings - EKG Comments: EKG Findings:: EKG normal sinus rhythm incomplete left bundle branch block, rate of 72, MN interval 186, QRS duration 106, QTC 473, there is T-wave inversion and ST segment abnormality in the lateral precordial leads as well as aVL, this appears unchanged from previous EKG 07/16/2017 Medical Decision Making - Medical Decision Making 71-year-old female presenting with worsening dyspnea. She has had symptoms for several months, however they have worsened over the past several days. She is currently on Lasix, amiodarone, Eliquis, and albuterol. Chest x-ray is obtained , there is pulmonary vascular congestion, moderate right-sided pleural effusion , there is 2.6 and a rounded density which may represent loculated fluid. Echo reviewed from previous admission, this was a TINA, showed normal ventricular function. Laboratory studies: Blood cell count 7.6, hemoglobin 9.8 which is stable, sodium mildly low at 134, creatinine 1.5, this appears to be patient's baseline. Troponin negative. BNP elevated at 5000, this is consistent with patient's symptoms and chest x-ray. She is given Lasix in the emergency department. She is already anticoagulated. She will be admitted for treatment of congestive heart failure. - Lab Data Result diagrams: 07/26/17 10:45 07/26/17 10:45 Lab Results 07/26/17 07/26/17 07/26/17 Range/Units 10:45 10:45 10:45 WBC 7.6 (3.8-10.6) k/uL RBC 3.72 L (3.80-5.40) m/uL Hgb 9.8 L (11.4-16.0) gm/dL Hct 32.9 L (34.0-46.0) % MCV 88.4 D (80.0-100.0) fL MCH 26.3 (25.0-35.0) pg MCHC 29.8 L (31.0-37.0) g/dL RDW 16.7 H (11.5-15.5) % Plt Count 355 (150-450) k/uL Neutrophils % 86 % Lymphocytes % 5 % Monocytes % 6 % Eosinophils % 1 % Basophils % 1 % Neutrophils # 6.5 (1.3-7.7) k/uL Lymphocytes # 0.4 L (1.0-4.8) k/uL Monocytes # 0.4 (0-1.0) k/uL Eosinophils # 0.1 (0-0.7) k/uL Basophils # 0.0 (0-0.2) k/uL Hypochromasia Marked Anisocytosis Slight PT (9.0-12.0) sec INR (<1.2) APTT (22.0-30.0) sec Sodium 134 L (137-145) mmol/L Potassium 5.1 (3.5-5.1) mmol/L Chloride 97 L (98-107) mmol/L Carbon Dioxide 23 (22-30) mmol/L Anion Gap 14 mmol/L BUN 25 H (7-17) mg/dL Creatinine 1.50 H (0.52-1.04) mg/dL Est GFR (CKD-EPI)AfAm 40 (>60 ml/min/1.73 sqM) Est GFR (CKD-EPI)NonAf 35 (>60 ml/min/1.73 sqM) Glucose 105 H (74-99) mg/dL Plasma Lactic Acid Erich (0.7-2.0) mmol/L Calcium 10.0 (8.4-10.2) mg/dL Magnesium 2.0 (1.6-2.3) mg/dL Total Bilirubin 0.6 (0.2-1.3) mg/dL AST 20 (14-36) U/L ALT 21 (9-52) U/L Alkaline Phosphatase 93 (38-126) U/L Total Creatine Kinase 53 (30-135) U/L CK-MB (CK-2) 2.1 (0.0-2.4) ng/mL CK-MB (CK-2) Rel Index 4.0 Troponin I <0.012 (0.000-0.034) ng/mL NT-Pro-B Natriuret Pep pg/mL Total Protein 7.0 (6.3-8.2) g/dL Albumin 4.1 (3.5-5.0) g/dL Influenza Type A RNA (Not Detectd) Influenza Type B (PCR) (Not Detectd) 07/26/17 07/26/17 07/26/17 Range/Units 10:45 10:45 10:45 WBC (3.8-10.6) k/uL RBC (3.80-5.40) m/uL Hgb (11.4-16.0) gm/dL Hct (34.0-46.0) % MCV (80.0-100.0) fL MCH (25.0-35.0) pg MCHC (31.0-37.0) g/dL RDW (11.5-15.5) % Plt Count (150-450) k/uL Neutrophils % % Lymphocytes % % Monocytes % % Eosinophils % % Basophils % % Neutrophils # (1.3-7.7) k/uL Lymphocytes # (1.0-4.8) k/uL Monocytes # (0-1.0) k/uL Eosinophils # (0-0.7) k/uL Basophils # (0-0.2) k/uL Hypochromasia Anisocytosis PT 10.9 (9.0-12.0) sec INR 1.1 (<1.2) APTT 29.7 (22.0-30.0) sec Sodium (137-145) mmol/L Potassium (3.5-5.1) mmol/L Chloride (98-107) mmol/L Carbon Dioxide (22-30) mmol/L Anion Gap mmol/L BUN (7-17) mg/dL Creatinine (0.52-1.04) mg/dL Est GFR (CKD-EPI)AfAm (>60 ml/min/1.73 sqM) Est GFR (CKD-EPI)NonAf (>60 ml/min/1.73 sqM) Glucose (74-99) mg/dL Plasma Lactic Acid Erich 0.9 (0.7-2.0) mmol/L Calcium (8.4-10.2) mg/dL Magnesium (1.6-2.3) mg/dL Total Bilirubin (0.2-1.3) mg/dL AST (14-36) U/L ALT (9-52) U/L Alkaline Phosphatase (38-126) U/L Total Creatine Kinase (30-135) U/L CK-MB (CK-2) (0.0-2.4) ng/mL CK-MB (CK-2) Rel Index Troponin I (0.000-0.034) ng/mL NT-Pro-B Natriuret Pep 5080 pg/mL Total Protein (6.3-8.2) g/dL Albumin (3.5-5.0) g/dL Influenza Type A RNA (Not Detectd) Influenza Type B (PCR) (Not Detectd) 07/26/17 Range/Units 10:45 WBC (3.8-10.6) k/uL RBC (3.80-5.40) m/uL Hgb (11.4-16.0) gm/dL Hct (34.0-46.0) % MCV (80.0-100.0) fL MCH (25.0-35.0) pg MCHC (31.0-37.0) g/dL RDW (11.5-15.5) % Plt Count (150-450) k/uL Neutrophils % % Lymphocytes % % Monocytes % % Eosinophils % % Basophils % % Neutrophils # (1.3-7.7) k/uL Lymphocytes # (1.0-4.8) k/uL Monocytes # (0-1.0) k/uL Eosinophils # (0-0.7) k/uL Basophils # (0-0.2) k/uL Hypochromasia Anisocytosis PT (9.0-12.0) sec INR (<1.2) APTT (22.0-30.0) sec Sodium (137-145) mmol/L Potassium (3.5-5.1) mmol/L Chloride (98-107) mmol/L Carbon Dioxide (22-30) mmol/L Anion Gap mmol/L BUN (7-17) mg/dL Creatinine (0.52-1.04) mg/dL Est GFR (CKD-EPI)AfAm (>60 ml/min/1.73 sqM) Est GFR (CKD-EPI)NonAf (>60 ml/min/1.73 sqM) Glucose (74-99) mg/dL Plasma Lactic Acid Erich (0.7-2.0) mmol/L Calcium (8.4-10.2) mg/dL Magnesium (1.6-2.3) mg/dL Total Bilirubin (0.2-1.3) mg/dL AST (14-36) U/L ALT (9-52) U/L Alkaline Phosphatase (38-126) U/L Total Creatine Kinase (30-135) U/L CK-MB (CK-2) (0.0-2.4) ng/mL CK-MB (CK-2) Rel Index Troponin I (0.000-0.034) ng/mL NT-Pro-B Natriuret Pep pg/mL Total Protein (6.3-8.2) g/dL Albumin (3.5-5.0) g/dL Influenza Type A RNA Not Detected (Not Detectd) Influenza Type B (PCR) Not Detected (Not Detectd) Critical Care Time Critical Care Time: Yes Total Critical Care Time: 35 Disposition Clinical Impression: CHF (congestive heart failure), Acute pulmonary edema Disposition: ADMITTED IP TO THIS [facility] Condition: Stable Referrals: Soren Desai MD [Primary Care Provider] - 1-2 days Decision to Admit Reason: Admit from EC Decision Date: 07/26/17 Decision Time: 12:23
[2017-07-26 11:13] LABS: Anisocytosis Slight; Basophils % (A) 1 %; Eosinophils # (A) 0.1 k/uL (0-0.7); Eosinophils % (A) 1 %; HCT 32.9 % (34.0-46.0); HGB 9.8 gm/dL (11.4-16.0); Hypochromasia Marked; Lymphocytes # (A) 0.4 k/uL (1.0-4.8); Lymphocytes % (A) 5 %; MCH 26.3 pg (25.0-35.0); MCHC 29.8 g/dL (31.0-37.0); Mean Platelet Volume 6.6; Monocytes # (A) 0.4 k/uL (0-1.0); Monocytes % (A) 6 %; Neutrophils # (A) 6.5 k/uL (1.3-7.7); Neutrophils % (A) 86 %; Platelet Count 355 k/uL (150-450); RBC 3.72 m/uL (3.80-5.40); RDW 16.7 % (11.5-15.5); WBC 7.6 k/uL (3.8-10.6)
[2017-07-26 11:14] LABS: MCV 88.4 fL (80.0-100.0)
[2017-07-26 11:22] LABS: Albumin 4.1 g/dL (3.5-5.0); Potassium 5.1 mmol/L (3.5-5.1); Total Bilirubin 0.6 mg/dL (0.2-1.3)
[2017-07-26 11:32] LABS: Creatine Kinase 53 U/L (30-135)
[2017-07-26 11:37] LABS: INR 1.1 (<1.2); Partial Thromboplastin Time 29.7 sec (22.0-30.0); Prothrombin Time 10.9 sec (9.0-12.0)
[2017-07-26 11:46] LABS: Creatine Kinase MB 2.1 ng/mL (0.0-2.4); Troponin I <0.012 ng/mL (0.000-0.034)
--- NOTE | 2017-07-26 11:46 | XR ---
EXAMINATION TYPE: XR chest 2V DATE OF EXAM: 07/26/2017 COMPARISON: 06/03/2017 HISTORY: Shortness of breath TECHNIQUE: Frontal and lateral views of the chest are obtained. FINDINGS: New right-sided 2.6 cm pulmonary density within the midlung peripherally may represent a loculated pl eural effusion versus was not present on the recent exam of 06/03/2017. New small right and trace left pleural effusions are noted as well as pulmonary vascular congestion and mild interstitial edema in combination with cardiomegaly. Osseous structures are grossly intact. IMPRESSION: New mild interstitial edema, pulmonary vascular congestion, small right pleural effusion and trace left pleural effusion likely on the basis of decompensated congestive heart failure. New 2 .6 cm rounded density within the right midlung laterally may represent loculated pleural effusion as it was not present on the recent exam of 06/03/2017. Surveillance is recommended.
[2017-07-26] MEDS ORDERED: FUROSEMIDE 10 MG/ML 4 ML VIAL IV STA (12:14)
[2017-07-26] MEDS ORDERED: NITROGLYCERIN SL TABS 0.4 MG TAB SUBLINGUAL STA (12:14)
[2017-07-26] MEDS ORDERED: NALOXONE 0.4 MG/ML 1 ML VIAL IV PRN ×2 (12:23→17:00)
[2017-07-26] MEDS ORDERED: HYDROcodone/APAP 5-325MG 1 EACH TAB PO PRN (12:23)
[2017-07-26] MEDS: IPRATROPIUM-ALBUTEROL 3 ML NEB INHALATION SCH ×2 (15:44→19:58)
[2017-07-26] MEDS ORDERED: amLODIPine 10 MG TAB PO STA (16:25)
[2017-07-26] MEDS ORDERED: LACTULOSE 20 GM/30 ML CUP PO PRN (17:00)
[2017-07-26] MEDS ORDERED: CALCIUM CARBONATE 500 MG CHEWABLE PO PRN (17:00)
[2017-07-26] MEDS ORDERED: LORazepam 0.5 MG TAB PO PRN (17:00)
[2017-07-26] MEDS ORDERED: ACETAMINOPHEN TAB 325 MG TAB PO PRN (17:00)
[2017-07-26] MEDS ORDERED: MAGNESIUM HYDROXIDE 2,400 MG/10 ML CUP PO PRN (17:00)
[2017-07-26] MEDS ORDERED: ONDANSETRON 4 MG/2 ML VIAL IVP PRN (17:00)
[2017-07-26] MEDS ORDERED: MELATONIN 3 MG TABLET PO PRN (17:00)
--- NOTE | 2017-07-26 19:11 | HP ---
HISTORY AND PHYSICAL DATE OF ADMISSION: July 24, 2017. PRESENTING COMPLAINT: Short of breath. HISTORY OF PRESENTING COMPLAINT: This is a 71-year-old patient whose chronic stable medical conditions include rheumatoid arthritis, hyperlipidemia, hypertension, anxiety and depression. The patient also got known CHF and COPD. The patient is an ex-smoker. The patient has also had atrial fibrillation now in sinus rhythm. The patient for 2 days started getting increasingly short of breath, very slight cough, congestion in the chest, some orthopnea. No fever. Appetite is maintained. Some lower extremity edema starting to build up again. No fever. Found to be in congestive heart failure in the ER. REVIEW OF SYSTEMS: Constitutional: Weak tired. HEENT none. Respiratory as above. Cardiovascular as above. Gastrointestinal none. Genitourinary: None. Musculoskeletal pain in many joints. Dermatological and hematologic, lymphatic none. Psychiatry none. Neurological none. PAST MEDICAL HISTORY: Past medical history of CHF, EF 55-60%, atrial fibrillation, hypertensive heart disease, COPD, chronic nodular changes on CT chest, rheumatoid arthritis, hyperlipidemia, hypertension, anxiety, depression. PAST SURGICAL HISTORY: Tonsillectomy, ankle fracture with screws, lumbar steroid injections. SOCIAL HISTORY: The patient smoked a pack and a half started 1973, stopped in 2014. Did drink heavy alcohol in the past. Lives with her . Has a walker. FAMILY HISTORY: Mother had myocardial infarction, from abdominal aortic aneurysm. HOME MEDICATIONS: 1. Norvasc 10 mg a day. 2. Zoloft 50 mg a day. 3. Potassium 20 mEq p.o. daily. 4. Lopressor 25 p.o. b.i.d. 5. Melatonin 3 mg q.h.s. 6. Zestril 10 mg p.o. daily. 7. DuoNeb t.i.d. 8. Lasix 40 mg p.o. daily. 9. Eliquis 5 mg b.i.d. 10.Cordarone 200 mg b.i.d. 11.Ventolin HFA 1 or 2 puffs q.6h p.r.n. ALLERGIES: None. PHYSICAL EXAMINATION: Vital signs on presentation: Temperature 97.8, pulse 78, respirations 30, blood pressure 213/99, pulse ox 94% on 4 L: General appearance: Average built, sitting up, short of breath, leaning forward. Eyes pupils are equal. Conjunctivae normal. HEENT external appearance of nose and ears normal. Oral cavity normal. Neck JVD raised. Mass not palpable. Respiratory effort increased. Lungs decreased breath sounds. Basal crackles, expiratory wheezing. Cardiovascular: 1st and 2nd sounds normal. Mild edema present. ABDOMEN: Soft and nontender. Liver and spleen not palpable. Psychiatry alert orient x3. Mood and affect are normal. Slight anxiety. Neurological: Pupils equal. Cranial nerves grossly intact. Power and sensation grossly intact. Musculoskeletal evidence of osteoarthritis especially in the hands and knees. INVESTIGATIONS: White count 7.6, hemoglobin 9.8, platelets 355, potassium 5.1, BUN 25, creatinine 1.50. The patient's BUN creatinine was 1.22 back on June 03, 2017. ProBNP is 508 0. Chest x-ray reviewed by me shows pulmonary edema and fluid in the fissure. ASSESSMENT: 1. Acute on chronic congestive heart failure exacerbation from diastolic dysfunction. Ejection fraction 55-60% from hypertensive heart disease. 2. Paroxysmal atrial fibrillation currently in sinus rhythm. The patient is on Eliquis. 3. Probably chronic kidney disease from hypertensive nephrosclerosis stage III. 4. Hypertensive heart disease. 5. Acute chronic obstructive pulmonary disease exacerbation in an ex-smoker. 6. Chronic nodular changes on CT scan being followed by Pulmonary as an outpatient. 7. Chronic rheumatoid arthritis. 8. Hyperlipidemia. 9. Essential hypertension with urgency. 10.Anxiety, depression not otherwise specified. PLAN: Home medications are resumed. The patient will be put on Lasix drip. Strict and I's and O's will be done. Electrolytes will be followed closely. Patient is put back on Eliquis. Care was discussed with the patient. Overall prognosis is guarded. Consultation to Cardiology was made. Copy to Dr. Talbot and copy to Dr. Desai. MMODL / IJN: [id number] /
[2017-07-26] MEDS: MELATONIN 3 MG TABLET PO SCH (20:52)
[2017-07-26] MEDS: SERTRALINE 50 MG TAB PO SCH (20:52)
[2017-07-26] MEDS: APIXABAN 5 MG TAB PO SCH (20:53)
[2017-07-26] MEDS: METOPROLOL TARTRATE 25 MG TAB PO SCH (20:53)
[2017-07-26] MEDS ORDERED: AMIODARONE 200 MG TAB PO SCH (21:00)
[2017-07-26] MEDS ORDERED: FUROSEMIDE 10 MG/ML 4 ML VIAL IV SCH (21:00)
[2017-07-26] MEDS: FUROSEMIDE 250 MG in SODIUM CHLORIDE 0.9% 225 ML IVP SCH (21:16)
[2017-07-27 06:48] LABS: Calcium 9.7 mg/dL (8.4-10.2); Potassium 4.9 mmol/L (3.5-5.1)
[2017-07-27] MEDS: AMIODARONE 200 MG TAB PO SCH (08:14)
[2017-07-27] MEDS: SERTRALINE 50 MG TAB PO SCH (08:14)
[2017-07-27] MEDS: amLODIPine 10 MG TAB PO SCH (08:14)
[2017-07-27] MEDS: LISINOPRIL 10 MG TAB PO SCH (08:14)
[2017-07-27] MEDS: APIXABAN 5 MG TAB PO SCH ×2 (08:14→21:34)
[2017-07-27] MEDS: METOPROLOL TARTRATE 25 MG TAB PO SCH ×2 (08:14→21:34)
[2017-07-27] MEDS: IPRATROPIUM-ALBUTEROL 3 ML NEB INHALATION SCH ×3 (09:03→19:07)
--- NOTE | 2017-07-27 15:09 | P.CNPUL ---
History of Present Illness Consult date: 07/27/17 Requesting physician: Steve Hudson Reason for consult: pleural effusion Chief complaint: Shortness of breath History of present illness: This is a 71-year-old female with history of hypertension, several previous episodes of pneumonia, congestive heart failure, COPD, presented to the ER with a few days' history of increased shortness of breath, cough which is nonproductive, mostly dry cough, increased swelling in lower extremities, and 2 pillows orthopnea. Chest x-ray showed interstitial edema, small right pleural effusion, a trace of left pleural effusion, and a 2.6 rounded density in the right midlung. [place] to be either loculated pleural effusion or possibly a true mass in the right midlung. Considering the presentation and abnormal chest x- ray, this consult was initiated. Patient was diuresed upon admission, and over the last 12 hours since admission, her symptoms have dramatically improved. Less cough, less shortness of breath, and all the swelling in the lower extremities has completely resolved. Influenza screen was negative on admission , proBNP level was over 5000, renal profile showed a BUN of 25 creatinine of 1.5 on admission. No leukocytosis was noted on the CBC. Review of Systems 14 point review of systems were obtained, please refer to pertinent positives and negatives as per HPI, otherwise remaining systems are negative Past Medical History Past Medical History: Asthma, CVA/TIA, Hypertension, Osteoarthritis (OA), Pneumonia Additional Past Medical History / Comment(s): cva 2007 no residual problems, irreg heart rate,SOB History of Any Multi-Drug Resistant Organisms: None Reported Past Surgical History: Tonsillectomy Additional Past Surgical History / Comment(s): ORIF rt ankle-[address], IUD removal, lumbar steroid injections Past Anesthesia/Blood Transfusion Reactions: No Reported Reaction Additional Past Anesthesia/Blood Transfusion Reaction / Comment(s): past blood transfusions-no reaction Past Psychological History: No Psychological Hx Reported Smoking Status: Former smoker Past Alcohol Use History: None Reported Additional Past Alcohol Use History / Comment(s): Patient smoked one and half packs of cigarettes per day started in 1973 and quit 2014. Patient used to drink heavily-none now Past Drug Use History: None Reported - Past Family History Mother Additional Family Medical History / Comment(s): Mother in her 80s from abdominal aortic aneurysm. Father Family Medical History: Myocardial Infarction ([place]) Additional Family Medical History / Comment(s): Father at age 52 from acute [place]. Patient has 1 brother that is healthy. Patient does not have any children. Medications and Allergies Home Medications Medication Instructions Recorded Confirmed Type Albuterol Inhaler [Ventolin Hfa 1 - 2 puff INHALATION RT-Q6H PRN 04/30/17 History Inhaler] Sertraline HCl [Zoloft] 50 mg PO DAILY 04/30/17 07/26/17 History Apixaban [Eliquis] 5 mg PO BID #60 tab 06/03/17 07/26/17 Rx Furosemide [Lasix] 40 mg PO DAILY #30 tab 06/03/17 07/26/17 Rx Ipratropium-Albuterol Nebulize 3 ml INHALATION TID #90 neb 06/03/17 07/26/17 Rx [Duoneb 0.5 mg-3 mg/3 ml Soln] Melatonin 3 mg PO HS tablet 06/03/17 07/26/17 Rx Potassium Chloride ER [K-Dur 20] 20 meq PO DAILY #30 tab.er.prt 06/03/17 Rx Amiodarone [Cordarone] 200 mg PO BID 07/16/17 07/26/17 History Lisinopril [Zestril] 10 mg PO DAILY tab 07/16/17 07/26/17 Rx Metoprolol Tartrate [Lopressor] 25 mg PO BID tab 07/16/17 07/26/17 Rx amLODIPine [Norvasc] 10 mg PO DAILY tab 07/16/17 07/26/17 Rx Allergies Allergy/AdvReac Type Severity Reaction Status Date / Time No Known Allergies Allergy Verified 07/26/17 11:18 Physical Exam Vitals: Vital Signs Temp Pulse Pulse Resp BP BP Pulse Ox 07/27/17 09:18 76 07/27/17 09:03 74 07/27/17 08:00 97.4 F L 72 18 150/71 94 L 07/27/17 04:00 97.3 F L 75 18 125/66 97 07/27/17 00:00 87 22 137/68 95 07/26/17 20:14 76 07/26/17 20:00 97.4 F L 94 20 164/79 97 07/26/17 19:58 72 07/26/17 16:45 97 F L 73 18 192/84 97 07/26/17 16:24 78 18 181/67 07/26/17 15:56 70 07/26/17 15:44 70 Intake and Output 07/27/17 07/27/17 07/27/17 06:59 14:59 22:59 Intake Total 360 Output Total 800 Balance -800 360 Intake: Oral 360 Output: Urine 800 Other: # Voids 3 1 Weight 63.6 kg Limitations: no limitations General appearance: Physical exam revealed a 71-year-old female, very pleasant, in no distress. Head exam: Atraumatic, normocephalic. Eye exam: PERRLA, EOMI. No icterus. ENT exam: Moist mucous membranes, throat is clear, no JVD, no stridor. Neck exam: Neck supple, no neck masses, no neck rigidity. Respiratory exam: Diminished breath sounds at the bases with mostly crackles at the right base. Symmetrical chest expansion, no dullness, no tenderness. Cardiovascular Exam: Normal S1 and S2, no S3 gallop. No murmur. GI/Abdominal exam: Soft nontender no megaly no rebound no guarding positive bowel sounds. Extremities exam: Trace of bipedal edema good pulses bilaterally.) Neurological exam: Alert and oriented 3, no gross focal neurologic deficit Psychiatric exam: Normal mood affect and mental status examination. Skin exam: Warm, no cyanosis, and no rashes. Results - Laboratory Findings CBC and BMP: 07/26/17 10:45 07/27/17 05:25 PT/INR, D-dimer PT 10.9 sec (9.0-12.0) 07/26/17 10:45 INR 1.1 (<1.2) 07/26/17 10:45 Abnormal lab findings: Abnormal Labs 07/26/17 07/26/17 07/27/17 10:45 10:45 05:25 RBC 3.72 L Hgb 9.8 L Hct 32.9 L MCHC 29.8 L RDW 16.7 H Lymphocytes # 0.4 L Sodium 134 L 136 L Chloride 97 L 96 L BUN 25 H 29 H Creatinine 1.50 H 1.66 H Glucose 105 H - Diagnostic Findings Chest x-ray: image reviewed (Suggestive of congestive heart failure) Assessment and Plan Assessment: Impression: 1 acute on chronic congestive heart failure, most likely secondary to diastolic dysfunction since her ejection fraction was normal. 2 paroxysmal atrial fibrillation, patient is on anticoagulation therapy. 3 right midlung nodule, could be loculated fluid in the fissure could also be a true nodule, hence a follow-up chest x-ray will be done in a.m., and if remains present consider a CT of the chest without contrast. 4 history of COPD, however her presentation seems to be mostly a presentation of congestive heart failure with minimal exacerbation of COPD. 5 multiple comorbidities including benign essential hypertension, hyperlipidemia , history of rheumatoid arthritis, Recommendation: I fully agree with the present treatment plan, repeat chest x- ray in a.m., may consider a CT of the chest depending on the x-ray findings in a.m. Time with Patient: Greater than 30
--- NOTE | 2017-07-27 16:42 | CONS ---
CONSULTATION DATE OF SERVICE: Ms. Levin is a 71-year-old female who presented with increasing shortness of breath. She had no chest discomfort. She also complained of a little bit of a cough and congestion. REVIEW OF SYSTEMS: She felt tired and weak. She was coughing and she was very short of breath. She denied any chest discomfort. No palpitations. No fevers, chills or rigors. She had a mild cough with expectoration. No nausea, vomiting, diarrhea. No Hematuria or dysuria. No strokes or seizures. PAST MEDICAL HISTORY: Congestive heart failure with preserved LV systolic function, paroxysmal atrial fibrillation, hypertensive heart disease, rheumatoid arthritis and dyslipidemia. She was recently cardioverted by Dr. Curry. PAST SURGICAL HISTORY: Tonsillectomy. MEDICATION: Reviewed, includes: 1. Norvasc. 2. Zoloft. 3. Potassium. 4. Ventolin. 5. Cordarone. 6. Eliquis. 7. Lasix. 8. Zestril. 9. Lopressor. SOCIAL HISTORY: She is a smoker for many years and she stopped in 2014. Heavy alcohol use in the past. FAMILY HISTORY: Noncontributory. ALLERGIES: None. EXAMINATION: She is afebrile. Her respirations are between 26 and 28. Initially her blood pressure was quite elevated, today it is 150/71 mmHg. She is afebrile 97.4 degrees Fahrenheit, pulse rate in the 70s. Breath sounds are reduced bilaterally with bilateral rhonchi with crackles at the bases. Heart sounds S1, S2 are soft and regular. Abdomen is soft, nontender. Extremities are warm. No edema. IMPRESSION: 1. Shortness of breath secondary to chronic obstructive pulmonary disease exacerbation. 2. Essential hypertension. 3. Atrial fibrillation, persistent, status post electrical cardioversion recently. The patient is currently on amiodarone and she is anticoagulated. PLAN: Suggest COPD management and continue IV Lasix. Watch BUN and creatinine and switch to p.o. Lasix tomorrow. Continue antihypertensive therapy and maximize as needed. MMODL / IJN: [id number] /
[2017-07-27] MEDS: FUROSEMIDE 250 MG in SODIUM CHLORIDE 0.9% 225 ML IVP SCH (16:58)
--- NOTE | 2017-07-27 20:33 | PN ---
PROGRESS NOTE DATE OF SERVICE: 07/27/2017 PRESENTING COMPLAINT: Short of breath. INTERVAL HISTORY: Patient admitted with CHF exacerbation and COPD exacerbation. She has been on a Lasix drip. I spoke to the nurse. The I&O are not correct. The patient has been diuresing a lot and the numbers are not correctly charted. She confirmed. Breathing is a bit better. Slight cough. at the bedside. Did tolerate some diet. REVIEW OF SYSTEMS: Done for constitutional, cardiovascular, GI, pulmonary; relevant findings as above. CURRENT MEDICATIONS: Current medications are reviewed that include Lasix drip, DuoNeb, Lopressor. PHYSICAL EXAMINATION: Temperature 97.2, pulse 78, respiration 16, blood pressure 150/79, pulse ox 99% on 3 L. GENERAL APPEARANCE: Sitting up on bed. Less Short of breath. EYES: Pupils equal. Conjunctivae normal. HEENT: External appearance of nose and ears normal. Oral cavity normal. NECK: JVD not raised. Mass not palpable. RESPIRATORY: Effort increased. LUNGS: Decreased breath sounds. Decreased crackles. CARDIOVASCULAR: First and second sounds normal. Decreased edema. ABDOMEN: Soft, nontender. Liver and spleen not palpable. PSYCHIATRY: Alert and oriented x3. Mood and affect normal. INVESTIGATIONS: Potassium 4.9, BUN 29, creatinine 1.66. ASSESSMENT: 1. Acute on chronic congestive heart failure exacerbation from diastolic dysfunction, ejection fraction 55% to 60%, from hypertensive heart disease. 2. Paroxysmal atrial fibrillation, currently in sinus rhythm. Patient is on Eliquis. 3. Chronic kidney disease from hypertensive nephrosclerosis, stage III. 4. Hypertensive heart disease. 5. Acute chronic obstructive pulmonary disease exacerbation in an ex-smoker. 6. Chronic nodular changes on CT scan, being followed by Pulmonary as an outpatient. 7. Chronic rheumatoid arthritis. 8. Hyperlipidemia. 9. Essential hypertension with urgency on presentation. 10.Anxiety, depression not otherwise specified. PLAN: Continue the patient on Lasix drip. Hopefully she should be able to be switched over to p.o. Lasix in the morning. Electrolytes to be followed closely. Care was discussed with the patient and her at the bedside. Will follow. MMODL / IJN: [id number] /
[2017-07-27] MEDS: MELATONIN 3 MG TABLET PO SCH (21:34)
[2017-07-28 07:45] LABS: Calcium 9.7 mg/dL (8.4-10.2); Potassium 3.9 mmol/L (3.5-5.1)
[2017-07-28] MEDS: IPRATROPIUM-ALBUTEROL 3 ML NEB INHALATION SCH ×3 (07:45→20:08)
[2017-07-28] MEDS: METOPROLOL TARTRATE 25 MG TAB PO SCH (09:11)
[2017-07-28] MEDS: SERTRALINE 50 MG TAB PO SCH (09:12)
[2017-07-28] MEDS: APIXABAN 5 MG TAB PO SCH ×2 (09:12→21:26)
[2017-07-28] MEDS: amLODIPine 10 MG TAB PO SCH (09:12)
[2017-07-28] MEDS: LISINOPRIL 10 MG TAB PO SCH (09:12)
[2017-07-28] MEDS: AMIODARONE 200 MG TAB PO SCH (09:12)
--- NOTE | 2017-07-28 10:23 | XR ---
EXAMINATION TYPE: XR chest 2V DATE OF EXAM: 07/28/2017 COMPARISON: 07/26/2017 INDICATION: CHF, difficulty breathing TECHNIQUE: Frontal and lateral views of the chest are obtained. FINDINGS: The heart size is normal. The pulmonary vasculature is normal. Posterior pleural effusions are present on the right. There is a rounded opacity over the right perip heral midlung present previously. Left lower lobe infiltrate has resolved.. IMPRESSION: 1. Small right pleural effusion. 2. Nodular density peripheral right lung. Continued follow-up is recommended.
[2017-07-28 11:47] VITALS: BMI 22.5
--- NOTE | 2017-07-28 14:25 | P.PN ---
Subjective Progress Note Date: 07/28/17 Principal diagnosis: Acute congestive heart failure and pleural effusion This is a 71-year-old female with history of hypertension, several previous episodes of pneumonia, congestive heart failure, COPD, presented to the ER with a few days' history of increased shortness of breath, cough which is nonproductive, mostly dry cough, increased swelling in lower extremities, and 2 pillows orthopnea. Chest x-ray showed interstitial edema, small right pleural effusion, a trace of left pleural effusion, and a 2.6 rounded density in the right midlung. [place] to be either loculated pleural effusion or possibly a true mass in the right midlung. Considering the presentation and abnormal chest x- ray, this consult was initiated. Patient was diuresed upon admission, and over the last 12 hours since admission, her symptoms have dramatically improved. Less cough, less shortness of breath, and all the swelling in the lower extremities has completely resolved. Influenza screen was negative on admission , proBNP level was over 5000, renal profile showed a BUN of 25 creatinine of 1.5 on admission. No leukocytosis was noted on the CBC. Patient was reevaluated today on 07/28/2017, feeling much better, breathing a lot easier, relatively asymptomatic. No cough no wheezing no shortness of breath. Labs were reviewed, BUN is up to 36 and creatinine is up to 2.20. Patient has been demonstrating significant clinical improvement. Hardly any cough no wheezing no shortness of breath, and she is being considered for possible discharge planning today. Chest x-ray showed small right pleural effusion and a nodular density in the periphery of the right lung which has been present before on a previous CT of the chest, but needs to have a close observation, it is not clear to me whether this is truly a mass or an area of fluid collection/pseudotumor. Patient was made aware of the finding, and I suggested that she keeps close follow-up with us in the office. Objective - Vital Signs Vital signs: Vital Signs Temp 97.6 F 07/28/17 11:32 Pulse 76 07/28/17 14:00 Resp 18 07/28/17 11:33 BP 161/79 07/28/17 11:32 Pulse Ox 91 L 07/28/17 11:32 Intake & Output 07/27/17 07/28/17 07/28/17 18:59 06:59 18:59 Intake Total 1437 680 Output Total 1350 1325 600 Balance 87 -1325 80 Weight 61.5 kg 61.5 kg Intake: Intake, IV Titration 197 Amount Furosemide 250 mg In 197 Sodium Chloride 0.9% 225 ml @ 10 MG/HR 10 mls/hr IVP .Q24H SIMON Rx#: [id number] Oral 1240 680 Output: Urine 1350 1325 600 Other: # Voids 1 3 2 - Exam General appearance: Physical exam revealed a 71-year-old female, very pleasant, in no distress. Head exam: Atraumatic, normocephalic. Eye exam: PERRLA, EOMI. No icterus. ENT exam: Moist mucous membranes, throat is clear, no JVD, no stridor. Neck exam: Neck supple, no neck masses, no neck rigidity. Respiratory exam: Diminished breath sounds at the bases no crackles, no rhonchi , no wheezes, symmetrical chest expansion noted. No dullness. No tenderness. Cardiovascular Exam: Normal S1 and S2, no S3 gallop. No murmur. GI/Abdominal exam: Soft nontender no megaly no rebound no guarding positive bowel sounds. Extremities exam: Trace of bipedal edema good pulses bilaterally.) Neurological exam: Alert and oriented 3, no gross focal neurologic deficit Psychiatric exam: Normal mood affect and mental status examination. Skin exam: Warm, no cyanosis, and no rashes. - Labs CBC & Chem 7: 07/26/17 10:45 07/28/17 07:16 Labs: Abnormal Lab Results - Last 24 Hours (Table) 07/28/17 Range/Units 07:16 Sodium 136 L (137-145) mmol/L Chloride 92 L (98-107) mmol/L Carbon Dioxide 33 H (22-30) mmol/L BUN 36 H (7-17) mg/dL Creatinine 2.20 H (0.52-1.04) mg/dL Microbiology - Last 24 Hours (Table) 07/26/17 10:45 Blood Culture - Preliminary Blood No Growth after 48 hours Assessment and Plan Assessment: Impression: 1 acute on chronic congestive heart failure, most likely secondary to diastolic dysfunction since her ejection fraction was normal. 2 paroxysmal atrial fibrillation, patient is on anticoagulation therapy. 3 right midlung nodule, could be loculated fluid in the fissure could also be a true nodule, will need a close follow-up on outpatient basis. 4 history of COPD, however her presentation seems to be mostly a presentation of congestive heart failure with minimal exacerbation of COPD. 5 multiple comorbidities including benign essential hypertension, hyperlipidemia , history of rheumatoid arthritis, Recommendation: I fully agree with the present treatment plan, consider discharge planning today, follow up on outpatient basis. Time with Patient: Less than 30
[2017-07-28] MEDS: FUROSEMIDE 250 MG in SODIUM CHLORIDE 0.9% 225 ML IVP SCH (15:00)
[2017-07-28] MEDS ORDERED: METOPROLOL TARTRATE 25 MG TAB PO STA (15:54)
--- NOTE | 2017-07-28 16:43 | PN ---
PROGRESS NOTE DATE OF SERVICE: 07/28/17. PRESENTING COMPLAINT: Short of breath. INTERVAL HISTORY: The patient presented with CHF and COPD exacerbation. Has been on Lasix drip. The patient has diarrhea significant amount. Clinically feels better. Breathing is better. Minimal cough. Oral intake is improving. REVIEW OF SYSTEMS: Done for constitutional, cardiovascular, GI, pulmonary; relevant findings as above. CURRENT MEDICATIONS: Include Lasix drip. PHYSICAL EXAMINATION: Temperature 97.6, pulse 65, respiratory 18, blood pressure 161/79, pulse ox 91% on room air. GENERAL APPEARANCE: Sitting up comfortable. EYES: Pupils equal. Conjunctivae normal. NECK: JVD raised. Mass not palpable. RESPIRATORY: Effort increased. Lungs decreased breath sounds, decreased crackles. CARDIOVASCULAR: First and second sounds normal. Decreased edema. ABDOMEN: Soft, nontender. Liver and spleen not palpable. PSYCHIATRY: Alert and oriented x3. Mood and affect normal. INVESTIGATIONS: Potassium 3.9, BUN 36, creatinine 2.20. Chest x-ray, improved aeration, infiltrate better. ASSESSMENT: 1. Acute on chronic congestive heart failure from diastolic dysfunction. Ejection fraction 55-60% from hypertensive heart disease, clinically improved. 2. Acute renal failure from diuresis, prerenal. 3. Paroxysmal atrial fibrillation. Patient is in sinus rhythm on Eliquis. 4. Chronic kidney disease from hypertensive nephrosclerosis stage III. 5. Hypertensive heart disease. 6. Acute chronic obstructive pulmonary disease in an ex-smoker. 7. Chronic nodular changes in CT scan being followed by Pulmonary as an outpatient. 8. Chronic rheumatoid arthritis. 9. Hyperlipidemia. 10.Essential hypertension with urgency on presentation. 11.Anxiety and depression, not otherwise specified. PLAN: Will DC the Lasix now. Put the patient on p.o. Lasix in the morning. Keep a close eye on the electrolytes. Care was discussed with the patient. MMODL / IJN: [id number] /
[2017-07-28] MEDS: METOPROLOL TARTRATE 50 MG TAB PO SCH (21:26)
[2017-07-28] MEDS: MELATONIN 3 MG TABLET PO SCH (21:27)
[2017-07-29] MEDS: LISINOPRIL 10 MG TAB PO SCH (07:02)
[2017-07-29 07:18] LABS: Calcium 9.2 mg/dL (8.4-10.2); Potassium 4.1 mmol/L (3.5-5.1)
[2017-07-29] MEDS: APIXABAN 5 MG TAB PO SCH ×2 (07:51→19:50)
[2017-07-29] MEDS: METOPROLOL TARTRATE 50 MG TAB PO SCH ×2 (07:51→19:50)
[2017-07-29] MEDS: AMIODARONE 200 MG TAB PO SCH (07:51)
[2017-07-29] MEDS: amLODIPine 10 MG TAB PO SCH (07:51)
[2017-07-29] MEDS: SERTRALINE 50 MG TAB PO SCH (07:51)
[2017-07-29] MEDS ORDERED: FUROSEMIDE 80 MG TAB PO SCH (09:00)
[2017-07-29] MEDS: IPRATROPIUM-ALBUTEROL 3 ML NEB INHALATION SCH ×3 (09:42→21:17)
[2017-07-29] MEDS ORDERED: SODIUM CHLORIDE 0.9% 1,000 ML IV SCH (11:00)
--- NOTE | 2017-07-29 14:24 | P.PN ---
Subjective Progress Note Date: 07/29/17 Principal diagnosis: Acute congestive heart failure and pleural effusion This is a 71-year-old female with history of hypertension, several previous episodes of pneumonia, congestive heart failure, COPD, presented to the ER with a few days' history of increased shortness of breath, cough which is nonproductive, mostly dry cough, increased swelling in lower extremities, and 2 pillows orthopnea. Chest x-ray showed interstitial edema, small right pleural effusion, a trace of left pleural effusion, and a 2.6 rounded density in the right midlung. [place] to be either loculated pleural effusion or possibly a true mass in the right midlung. Considering the presentation and abnormal chest x- ray, this consult was initiated. Patient was diuresed upon admission, and over the last 12 hours since admission, her symptoms have dramatically improved. Less cough, less shortness of breath, and all the swelling in the lower extremities has completely resolved. Influenza screen was negative on admission , proBNP level was over 5000, renal profile showed a BUN of 25 creatinine of 1.5 on admission. No leukocytosis was noted on the CBC. Patient was reevaluated today on 07/28/2017, feeling much better, breathing a lot easier, relatively asymptomatic. No cough no wheezing no shortness of breath. Labs were reviewed, BUN is up to 36 and creatinine is up to 2.20. Patient has been demonstrating significant clinical improvement. Hardly any cough no wheezing no shortness of breath, and she is being considered for possible discharge planning today. Chest x-ray showed small right pleural effusion and a nodular density in the periphery of the right lung which has been present before on a previous CT of the chest, but needs to have a close observation, it is not clear to me whether this is truly a mass or an area of fluid collection/pseudotumor. Patient was made aware of the finding, and I suggested that she keeps close follow-up with us in the office. Reevaluated today on 07/29/2017, clinically the patient is feeling much better, breathing easier, no cough no wheezing no shortness of breath no chest pain, swelling in her lower extremities has resolved. However her renal functioning seems to be a bit worse, and the patient's discharge is being delayed. BUN today is up to 47 creatinine is up to 2.91. Objective - Vital Signs Vital signs: Vital Signs Temp 97.5 F L 07/29/17 11:55 Pulse 60 07/29/17 13:51 Resp 20 07/29/17 11:55 BP 173/84 07/29/17 11:55 Pulse Ox 91 L 07/29/17 11:55 Intake & Output 07/28/17 07/29/17 07/29/17 18:59 06:59 18:59 Intake Total 1260.333 240 Output Total 600 800 Balance 660.333 -800 240 Weight 61.5 kg 60.4 kg Intake: Intake, IV Titration 220.333 Amount Furosemide 250 mg In 220.333 Sodium Chloride 0.9% 225 ml @ 10 MG/HR 10 mls/hr IVP .Q24H SIMON Rx#: [id number] Oral 1040 240 Output: Urine 600 800 Other: # Voids 2 - Exam General appearance: Physical exam revealed a 71-year-old female in no distress Head exam: Atraumatic, normocephalic. Eye exam: PERRLA, EOMI. No icterus. ENT exam: Moist mucous membranes, throat is clear, no JVD, no stridor. Neck exam: Neck supple, no neck masses, no neck rigidity. Respiratory exam: Diminished breath sounds at the bases no crackles, no rhonchi , no wheezes, symmetrical chest expansion noted. No dullness. No tenderness. Cardiovascular Exam: Normal S1 and S2, no S3 gallop. No murmur. GI/Abdominal exam: Soft nontender no megaly no rebound no guarding positive bowel sounds. Extremities exam: Trace of bipedal edema good pulses bilaterally.) Neurological exam: Alert and oriented 3, no gross focal neurologic deficit Psychiatric exam: Normal mood affect and mental status examination. Skin exam: Warm, no cyanosis, and no rashes. - Labs CBC & Chem 7: 07/26/17 10:45 07/29/17 06:13 Labs: Abnormal Lab Results - Last 24 Hours (Table) 07/29/17 Range/Units 06:13 Chloride 94 L (98-107) mmol/L Carbon Dioxide 31 H (22-30) mmol/L BUN 47 H (7-17) mg/dL Creatinine 2.91 H (0.52-1.04) mg/dL Microbiology - Last 24 Hours (Table) 07/26/17 10:45 Blood Culture - Preliminary Blood No Growth after 72 hours Assessment and Plan Assessment: Impression: 1 acute on chronic congestive heart failure, most likely secondary to diastolic dysfunction since her ejection fraction was normal. 2 paroxysmal atrial fibrillation, patient is on anticoagulation therapy. 3 right midlung nodule, could be loculated fluid in the fissure could also be a true nodule, will need a close follow-up on outpatient basis. 4 history of COPD, however her presentation seems to be mostly a presentation of congestive heart failure with minimal exacerbation of COPD. 5 multiple comorbidities including benign essential hypertension, hyperlipidemia , history of rheumatoid arthritis, Recommendation: I fully agree with the present treatment plan, consider discharge planning in the next 24 hours. Time with Patient: Less than 30
--- NOTE | 2017-07-29 22:08 | PN ---
PROGRESS NOTE DATE OF SERVICE: 07/29/2017. PRESENTING COMPLAINT: Short of breath. INTERVAL HISTORY: This patient presented with CHF and COPD exacerbation, was taken off Lasix drip. Creatinine found to have gone up. Breathing is much better. Oral intake is fair. REVIEW OF SYSTEMS: Done for constitutional, cardiovascular, GI, pulmonary; relevant findings as above. CURRENT MEDICATIONS: Include p.o. Lasix. EXAMINATION: Temperature 97, pulse 56, respiratory rate 18, blood pressure 160/79, pulse ox 93% on room air. GENERAL: Sitting up, awake. EYES: Pupils equal. Conjunctivae normal. HEENT: External appearance of nose and ears normal. Oral cavity normal. NECK: JVD not raised. Mass not palpable. Respiratory effort increased. LUNGS: Decreased breath sounds and improved air entry. CARDIOVASCULAR: 1st and 2nd sounds normal. No edema. ABDOMEN: Soft, nontender. Liver and spleen not palpable. PSYCHIATRY: Alert and oriented x3. Mood and affect normal. INVESTIGATIONS: BUN 47, creatinine 2.91 up from 1.5. ASSESSMENT: 1. Acute on chronic congestive heart failure from diastolic dysfunction. Ejection fraction 50% to 55% from hypertensive heart disease, now stabilized. 2. Acute renal failure from diuresis/prerenal, worsening. 3. Paroxysmal atrial fibrillation, patient is in sinus rhythm, on Eliquis. 4. Chronic kidney disease from hypertensive nephrosclerosis, stage III. Baseline around 1.5. 5. Hypertensive heart disease. 6. Acute chronic obstructive pulmonary disease exacerbation in an ex-smoker. 7. Chronic nodular changes on CT scan, being followed by Pulmonary as an outpatient. 8. Chronic rheumatoid arthritis. 9. Hyperlipidemia. 10.Essential hypertension with urgency on presentation. 11.Anxiety, depression, not otherwise specified. PLAN: We will hold off patient's Lasix for tomorrow morning. I spoke to the patient's . In view of worsening renal function, will gently hydrate the patient. Recheck renal function tomorrow. Nephrology will be consulted. Repeat labs in the morning. MMODL / IJN: [id number] /
[2017-07-29] MEDS: MELATONIN 3 MG TABLET PO SCH (22:53)
[2017-07-29 23:43] VITALS: TEMP 97
[2017-07-30 06:28] LABS: Calcium 8.8 mg/dL (8.4-10.2)
[2017-07-30 06:43] LABS: Anisocytosis Slight; Basophils % (A) 1 %; Eosinophils # (A) 0.2 k/uL (0-0.7); Eosinophils % (A) 4 %; HCT 31.1 % (34.0-46.0); HGB 9.5 gm/dL (11.4-16.0); Hypochromasia Moderate; Lymphocytes # (A) 0.6 k/uL (1.0-4.8); Lymphocytes % (A) 10 %; MCH 26.5 pg (25.0-35.0); MCHC 30.6 g/dL (31.0-37.0); MCV 86.7 fL (80.0-100.0); Mean Platelet Volume 6.9; Monocytes # (A) 0.6 k/uL (0-1.0); Monocytes % (A) 9 %; Neutrophils # (A) 4.3 k/uL (1.3-7.7); Neutrophils % (A) 72 %; Platelet Count 343 k/uL (150-450); RBC 3.59 m/uL (3.80-5.40); RDW 16.9 % (11.5-15.5)
[2017-07-30] MEDS: IPRATROPIUM-ALBUTEROL 3 ML NEB INHALATION SCH ×2 (08:17→13:39)
[2017-07-30] MEDS: APIXABAN 5 MG TAB PO SCH (08:36)
[2017-07-30] MEDS: LISINOPRIL 10 MG TAB PO SCH (08:36)
[2017-07-30] MEDS: amLODIPine 10 MG TAB PO SCH (08:36)
[2017-07-30] MEDS: AMIODARONE 200 MG TAB PO SCH (08:36)
[2017-07-30] MEDS: METOPROLOL TARTRATE 50 MG TAB PO SCH (08:36)
[2017-07-30] MEDS: SERTRALINE 50 MG TAB PO SCH (08:37)
[2017-07-30 11:16] VITALS: RESP 16
--- NOTE | 2017-07-30 12:12 | P.PN ---
Subjective Progress Note Date: 07/30/17 Principal diagnosis: Acute congestive heart failure and pleural effusion This is a 71-year-old female with history of hypertension, several previous episodes of pneumonia, congestive heart failure, COPD, presented to the ER with a few days' history of increased shortness of breath, cough which is nonproductive, mostly dry cough, increased swelling in lower extremities, and 2 pillows orthopnea. Chest x-ray showed interstitial edema, small right pleural effusion, a trace of left pleural effusion, and a 2.6 rounded density in the right midlung. [place] to be either loculated pleural effusion or possibly a true mass in the right midlung. Considering the presentation and abnormal chest x- ray, this consult was initiated. Patient was diuresed upon admission, and over the last 12 hours since admission, her symptoms have dramatically improved. Less cough, less shortness of breath, and all the swelling in the lower extremities has completely resolved. Influenza screen was negative on admission , proBNP level was over 5000, renal profile showed a BUN of 25 creatinine of 1.5 on admission. No leukocytosis was noted on the CBC. Patient was reevaluated today on 07/28/2017, feeling much better, breathing a lot easier, relatively asymptomatic. No cough no wheezing no shortness of breath. Labs were reviewed, BUN is up to 36 and creatinine is up to 2.20. Patient has been demonstrating significant clinical improvement. Hardly any cough no wheezing no shortness of breath, and she is being considered for possible discharge planning today. Chest x-ray showed small right pleural effusion and a nodular density in the periphery of the right lung which has been present before on a previous CT of the chest, but needs to have a close observation, it is not clear to me whether this is truly a mass or an area of fluid collection/pseudotumor. Patient was made aware of the finding, and I suggested that she keeps close follow-up with us in the office. Reevaluated today on 07/29/2017, clinically the patient is feeling much better, breathing easier, no cough no wheezing no shortness of breath no chest pain, swelling in her lower extremities has resolved. However her renal functioning seems to be a bit worse, and the patient's discharge is being delayed. BUN today is up to 47 creatinine is up to 2.91. Patient was reevaluated today on 07/30/2017, continues to do well, she has no active pulmonary symptoms, no cough no wheezing no shortness of breath. Renal functioning seems to be improving. Hence the patient is likely to be discharged home today. Objective - Vital Signs Vital signs: Vital Signs Temp 97 F L 07/30/17 08:34 Pulse 86 07/30/17 11:10 Resp 16 07/30/17 11:10 BP 184/66 07/30/17 11:10 Pulse Ox 92 L 07/30/17 11:10 Intake & Output 07/29/17 07/30/17 07/30/17 18:59 06:59 18:59 Intake Total 840 950 Output Total 800 500 Balance 840 -800 450 Weight 61.8 kg Intake: Intake, IV Titration 750 Amount Sodium Chloride 0.9% 1, 750 000 ml @ 50 mls/hr IV . Q20H SIMON Rx#:[id number] Oral 840 200 Output: Urine 800 500 Other: Voiding Method Bedside Commode Bedside Commode # Voids 1 - Exam General appearance: Physical exam revealed a 71-year-old female in no distress Head exam: Atraumatic, normocephalic. Eye exam: PERRLA, EOMI. No icterus. ENT exam: Moist mucous membranes, throat is clear, no JVD, no stridor. Neck exam: Neck supple, no neck masses, no neck rigidity. Respiratory exam: Diminished breath sounds at the bases no crackles, no rhonchi , no wheezes, symmetrical chest expansion noted. No dullness. No tenderness. Cardiovascular Exam: Normal S1 and S2, no S3 gallop. No murmur. GI/Abdominal exam: Soft nontender no megaly no rebound no guarding positive bowel sounds. Extremities exam: No clubbing edema or cyanosis. Neurological exam: Alert and oriented 3, no gross focal neurologic deficit Psychiatric exam: Normal mood affect and mental status examination. Skin exam: Warm, no cyanosis, and no rashes. - Labs CBC & Chem 7: 07/30/17 05:29 07/30/17 05:29 Labs: Abnormal Lab Results - Last 24 Hours (Table) 07/30/17 07/30/17 Range/Units 05:29 05:29 RBC 3.59 L (3.80-5.40) m/uL Hgb 9.5 L (11.4-16.0) gm/dL Hct 31.1 L (34.0-46.0) % MCHC 30.6 L (31.0-37.0) g/dL RDW 16.9 H (11.5-15.5) % Lymphocytes # 0.6 L (1.0-4.8) k/uL Sodium 133 L (137-145) mmol/L Chloride 94 L (98-107) mmol/L BUN 44 H (7-17) mg/dL Creatinine 2.07 H (0.52-1.04) mg/dL Microbiology - Last 24 Hours (Table) 07/26/17 10:45 Blood Culture - Preliminary Blood No Growth after 72 hours Assessment and Plan Assessment: Impression: 1 acute on chronic congestive heart failure, most likely secondary to diastolic dysfunction since her ejection fraction was normal. 2 paroxysmal atrial fibrillation, patient is on anticoagulation therapy. 3 right midlung nodule, could be loculated fluid in the fissure could also be a true nodule, will need a close follow-up on outpatient basis. Patient was advised to make sure that she has an appointment in our office for follow-up on this abnormality. the patient is not the greatest candidate for surgery. 4 history of COPD, however her presentation seems to be mostly a presentation of congestive heart failure with minimal exacerbation of COPD. 5 multiple comorbidities including benign essential hypertension, hyperlipidemia , history of rheumatoid arthritis, Recommendation: I fully agree with the present treatment plan, discharge home today on follow-up on outpatient basis. Time with Patient: Less than 30
[2017-07-30 15:01] LABS: Appearance,Urine Clear (Clear); Bilirubin,Urine Negative (Negative); Blood,Urine Negative (Negative); Color,Urine Yellow; Glucose,Urine (UA) Negative (Negative); Ketones,Urine Negative (Negative); Leukocyte Esterase,Urine Trace (Negative); Nitrite,Urine Negative (Negative); PH, Urine 6.5 (5.0-8.0); Protein,Urine Negative (Negative); Specific Gravity,Urine 1.013 (1.001-1.035); Squamous Epithelial Cell,Urine 3 /hpf (0-4); Urobilinogen,Urine <2.0 mg/dL (<2.0); WBC,Urine 1 /hpf (0-5)
[2017-07-30 15:17] VITALS: BP 169/80; PULSE 54
--- NOTE | 2017-07-30 16:36 | CONS ---
CONSULTATION DATE OF CONSULTATION: 07/30/2017. REASON FOR CONSULT: Renal failure. HISTORY OF PRESENT ILLNESS: Patient is a 71-year-old female who was admitted to the hospital with increased lower extremity edema and shortness of breath. Chest x-ray showed evidence of CHF. The patient has been diuresed. She states she is feeling much better. Serum creatinine was 1.5 mg/dL on initial admission. It had gone up to 2.9 and today it is down to 2.0. Review of previous labs shows previous creatinine 1.2-1.4 mg/dL in May of 2017. Ejection fraction on a previous echocardiogram in April of 2017 was 55-60%. PAST MEDICAL HISTORY: Hypertension, chronic kidney disease, history of CVA/TIA, osteoarthritis, pneumonia, asthma. PAST SURGICAL HISTORY: Tonsillectomy, ORIF right ankle, IUD removal, spinal injections. SOCIAL HISTORY: Patient is a former smoker. No history of drug abuse or alcohol abuse. MEDICATIONS: Prior to admission included Zoloft, Cordarone, albuterol. REVIEW OF SYSTEMS: As per HPI. Other systems negative. PHYSICAL EXAMINATION: Patient is comfortable, awake, alert, oriented x3. She is not in any acute distress. Blood pressure is elevated 173/82 earlier this morning. Heart rate of 54 per minute. She is afebrile. Examination of the heart: S1, S2. Examination lungs: Bilateral breath sounds are heard. Abdomen is soft, nontender. Examination of lower extremities shows no significant edema. MICA PASTER exam is grossly intact. Patient is moving all 4 extremities. LAB: Show sodium 133, potassium 4.0, chloride 94, BUN 44, serum creatinine 2.07, hemoglobin 9.5 g/dL. UA is fairly benign with no evidence of blood or protein. ASSESSMENT: 1. Acute kidney injury, cardiorenal and secondary to diuretics, currently improving. The patient is maintained on ZO inhibitors, which we can continue since the blood pressure remains elevated and renal function is improving. She is not on any diuretics currently. Patient appears fairly euvolemic. We can continue to maintain off of Lasix and discharge her on low-dose loop diuretics with close followup as outpatient. 2. Hypertension, currently uncontrolled. Add calcium channel blockers if blood pressure remains elevated. 3. Chronic kidney disease secondary to nephrosclerosis with completely benign UA with previous baseline creatinine about 1.2 to 1.4 mg/dL. The patient is already on calcium channel blockers. We can increase Zestril further to 20 mg if her blood pressure remains elevated. She needs to follow up as outpatient for CKD management and followup for hypertension. Thank you for this consultation. We will continue to follow the patient with you during her hospitalization. YRN / GEE: [id number] /
--- NOTE | 2017-07-30 23:39 | DS ---
DISCHARGE SUMMARY DATE OF ADMISSION: 07/26/2017. DATE OF DISCHARGE: 07/30/2017. FINAL DIAGNOSES: 1. Acute on chronic congestive heart failure exacerbation from diastolic dysfunction. Ejection fraction 50% to 55% from hypertensive heart disease. 2. Acute renal failure, prerenal from diuresis. 3. Paroxysmal atrial fibrillation. Patient is in sinus rhythm on Eliquis. 4. Chronic kidney disease from hypertensive nephrosclerosis stage III, baseline around 1.5. 5. Hypertensive heart disease. 6. Acute chronic obstructive pulmonary disease exacerbation an ex-smoker. 7. Chronic nodular changes on CT scan from prior to admission, being followed by Pulmonary as an outpatient. 8. Chronic rheumatoid arthritis. 9. Hyperlipidemia. 10.Essential hypertension with urgency on presentation. 11.Anxiety, depression, not otherwise specified. CONSULTATION: Dr. Vargas from Nephrology, Dr. Talbot from Pulmonary, Dr. Foster from Cardiology. HOSPITAL COURSE: This patient presented with CHF and COPD exacerbation. This responded well to IV Lasix drip. The patient's creatinine did bump up from 1.5 up to 2.91 and then after stopping the Lasix and gentle hydration, the creatinine did come down to 2.07 by the time of discharge. Blood pressure medications were adjusted. EXAM: Lungs decreased breath sounds. Psych AO x3. The patient remains in sinus rhythm. Care was today discussed with the patient. Questions were answered. DISCHARGE MEDICATIONS: 1. Ventolin HFA 1 to 2 puffs every 6 p.r.n. 2. Zoloft 50 mg p.o. daily. 3. Eliquis 5 mg p.o. b.i.d. 4. Lasix 40 mg p.o. daily. 5. DuoNeb t.i.d. 6. Melatonin 3 mg at bedtime. 7. Potassium 20 mEq p.o. daily. 8. Zestril 10 mg p.o. daily. 9. Norvasc 10 mg p.o. daily. 10.Cordarone 200 mg p.o. daily. 11.Lopressor 50 mg p.o. b.i.d. FOLLOWUP: 1. Dr. Talbot on 08/05/2017. 2. Dr. Vargas on 08/18/2017. 3. Dr. Desai in [address] Alicia Curry on 08/05/2017. LABS: BMP in 3 days. MMODL / IJN: [id number] /
== END 2017-07-30 16:33 | disposition home or self-care (01) | DRG 291 ==
LOC: EC 10:27 → 6SEL 12:25
PROVIDERS: ADMIT Hospitalist; ATTEND Hospitalist
DX: I13.0 Hypertensive heart and chronic kidney disease with heart failure and stage 1 through stage 4 chronic kidney disease, or unspecified chronic kidney disease (principal); I50.33 Acute on chronic diastolic (congestive) heart failure; N17.9 Acute kidney failure, unspecified; I48.0 Paroxysmal atrial fibrillation; M06.9 Rheumatoid arthritis, unspecified; J44.1 Chronic obstructive pulmonary disease with (acute) exacerbation; N18.3 Chronic kidney disease, stage 3 (moderate); E78.5 Hyperlipidemia, unspecified; F41.9 Anxiety disorder, unspecified; F32.9 Major depressive disorder, single episode, unspecified; M19.91 Primary osteoarthritis, unspecified site; T50.2X5A Adverse effect of carbonic-anhydrase inhibitors, benzothiadiazides and other diuretics, initial encounter; R19.7 Diarrhea, unspecified; R91.8 Other nonspecific abnormal finding of lung field; Z79.01 Long term (current) use of anticoagulants; Z79.899 Other long term (current) drug therapy; Z87.891 Personal history of nicotine dependence; Z87.01 Personal history of pneumonia (recurrent); Z86.73 Personal history of transient ischemic attack (TIA), and cerebral infarction without residual deficits; Z82.49 Family history of ischemic heart disease and other diseases of the circulatory system
CPT/HCPCS: 36415; 71046; 80048; 80053; 81001; 82550; 82553; 83605; 83735; 83880; 84484; 85025; 85610; 85730; 87040; 87502; 93005; 94640; 94760; 96374; 99291

== ENCOUNTER → 2017-08-05 | Outpatient (CLI) | payer MEDICARE, BC ==
[2017-08-05 10:54] LABS: Potassium 4.9 mmol/L (3.5-5.1)
== END | disposition home or self-care (01) ==
LOC: LABWHC1 09:56
PROVIDERS: ATTEND Internal Medicine Critical Care Medicine
DX: N19 Unspecified kidney failure (principal)
CPT/HCPCS: 36415; 80048

== ENCOUNTER 2017-09-09 12:26 | Inpatient (IN) | payer MEDICARE, BC ==
[2017-09-09] MEDS ORDERED: methylPREDNISolone SOD SUCCI 125 MG/2 ML VIAL IV STA (12:54)
[2017-09-09] MEDS ORDERED: ALBUTEROL NEBULIZED 2.5 MG/3 ML INHALATION STA (12:54)
--- NOTE | 2017-09-09 12:57 | ED ---
General Adult HPI - General Chief complaint: Shortness of Breath Stated complaint: SOB Time Seen by Provider: 09/09/17 12:30 Source: patient, RN notes reviewed Mode of arrival: EMS Limitations: no limitations - History of Present Illness Initial comments: This is a 71-year-old female presents emergency Department stating that she has COPD and congestive heart fit. Patient states her breathing is been getting worse over the last couple of days. Patient denies any cough she denies any fevers denies any sputum production. Patient states she might have a touch more swelling to the legs but not a lot. Patient denies any calf pain. Patient denies abdominal pain patient denies any nausea vomiting diarrhea. Patient denies any back pain. Patient denies headache patient denies numbness weakness. Patient denies lightheadedness dizziness or near syncopal episode. - Related Data Home Medications Medication Instructions Recorded Confirmed Sertraline HCl [Zoloft] 50 mg PO DAILY 04/30/17 09/09/17 Allopurinol [Zyloprim] 100 mg PO DAILY 09/09/17 09/09/17 Atorvastatin Calcium [Lipitor] 20 mg PO DAILY 09/09/17 09/09/17 Calcitriol [Rocaltrol] 0.5 mcg PO DAILY 09/09/17 09/09/17 Ipratropium-Albuterol Nebulize 3 ml INHALATION RT-QID 09/09/17 09/09/17 [Duoneb 0.5 mg-3 mg/3 ml Soln] Metolazone [Zaroxolyn] 2.5 mg PO MOWEFR 09/09/17 09/09/17 hydrALAZINE HCL [Apresoline] 25 mg PO TID 09/09/17 09/09/17 Previous Rx's Medication Instructions Recorded Apixaban [Eliquis] 5 mg PO BID #60 tab 06/03/17 Potassium Chloride ER [K-Dur 20] 20 meq PO DAILY #30 tab.er.prt 06/03/17 Lisinopril [Zestril] 10 mg PO DAILY tab 07/16/17 amLODIPine [Norvasc] 10 mg PO DAILY tab 07/16/17 Amiodarone [Cordarone] 200 mg PO DAILY #0 07/30/17 Metoprolol Tartrate [Lopressor] 50 mg PO BID #60 tab 07/30/17 Allergies Allergy/AdvReac Type Severity Reaction Status Date / Time No Known Allergies Allergy Verified 09/09/17 12:39 Review of Systems ROS Statement: Those systems with pertinent positive or pertinent negative responses have been documented in the HPI. ROS Other: All systems not noted in ROS Statement are negative. Past Medical History Past Medical History: Asthma, CVA/TIA, Hypertension, Osteoarthritis (OA), Pneumonia Additional Past Medical History / Comment(s): cva 2007 no residual problems, irreg heart rate,SOB History of Any Multi-Drug Resistant Organisms: None Reported Past Surgical History: Tonsillectomy Additional Past Surgical History / Comment(s): ORIF rt ankle-[address], IUD removal, lumbar steroid injections Past Anesthesia/Blood Transfusion Reactions: No Reported Reaction Additional Past Anesthesia/Blood Transfusion Reaction / Comment(s): past blood transfusions-no reaction Past Psychological History: No Psychological Hx Reported Smoking Status: Former smoker Past Alcohol Use History: None Reported Past Drug Use History: None Reported - Past Family History Mother Additional Family Medical History / Comment(s): Mother in her 80s from abdominal aortic aneurysm. Father Family Medical History: Myocardial Infarction ([place]) Additional Family Medical History / Comment(s): Father at age 52 from acute [place]. Patient has 1 brother that is healthy. Patient does not have any children. General Exam - General Exam Comments Initial Comments: GENERAL: Patient is well-developed and well-nourished. Patient is nontoxic and well- hydrated and is in mild distress. ENT: Neck is soft and supple. No significant lymphadenopathy is noted. Oropharynx is clear. Moist mucous membranes. Neck has full range of motion without eliciting any pain. EYES: The sclera were anicteric and conjunctiva were pink and moist. Extraocular movements were intact and pupils were equal round and reactive to light. Eyelids were unremarkable. PULMONARY: Patient has expiratory wheezing diffusely. CARDIOVASCULAR: There is a regular rate and rhythm without any murmurs gallops or rubs. ABDOMEN: Soft and nontender with normal bowel sounds. No palpable organomegaly was noted. There is no palpable pulsatile mass. SKIN: Skin is clear with no lesions or rashes and otherwise unremarkable. NEUROLOGIC: Patient is alert and oriented x3. Cranial nerves II through XII are grossly intact. Motor and sensory are also intact. Normal speech, volume and content. Symmetrical smile. MUSCULOSKELETAL: Normal extremities with adequate strength and full range of motion. Scant edema bilaterally LYMPHATICS: No significant lymphadenopathy is noted PSYCHIATRIC: Normal psychiatric evaluation. Normal interpersonal interactions appears functionally intact in deals appropriately with others. No signs of depression. No signs of anxiety. Limitations: no limitations Course Vital Signs 09/09/17 09/09/17 09/09/17 12:30 12:35 13:51 Temperature 98.2 F Pulse Rate 63 62 Respiratory 20 Rate Blood Pressure 181/79 O2 Sat by Pulse 93 L 98 Oximetry 09/09/17 14:06 Temperature Pulse Rate 67 Respiratory Rate Blood Pressure O2 Sat by Pulse Oximetry Medical Decision Making - Medical Decision Making EKG shows sinus bradycardia 50 bpm ME interval 192 QRS is 104 Q-T intervals 458 QTC is 449. There is no ST segment elevation. EKG shows no acute abnormality when compared to an old Chest x-ray shows fluid in the fissure on the right as well as bilateral pleural effusions components of congestive heart failure and background COPD. I spoke with Dr. Hudson he agreed to admit the patient admitted the patient wrote admitting orders and consult to cardiology and pulmonology. I wrote admitting orders I continued breathing treatments steroids and Lasix on the floor. - Lab Data Result diagrams: 09/09/17 12:30 09/09/17 12:30 Lab Results 09/09/17 09/09/17 09/09/17 Range/Units 12:30 12:30 12:30 WBC 8.5 (3.8-10.6) k/uL RBC 3.61 L (3.80-5.40) m/uL Hgb 9.3 L (11.4-16.0) gm/dL Hct 31.0 L (34.0-46.0) % MCV 85.9 (80.0-100.0) fL MCH 25.8 (25.0-35.0) pg MCHC 30.0 L (31.0-37.0) g/dL RDW 17.6 H (11.5-15.5) % Plt Count 285 (150-450) k/uL Neutrophils % 79 % Lymphocytes % 7 % Monocytes % 10 % Eosinophils % 1 % Basophils % 0 % Neutrophils # 6.7 (1.3-7.7) k/uL Lymphocytes # 0.6 L (1.0-4.8) k/uL Monocytes # 0.8 (0-1.0) k/uL Eosinophils # 0.1 (0-0.7) k/uL Basophils # 0.0 (0-0.2) k/uL Hypochromasia Marked Anisocytosis Slight PT (9.0-12.0) sec INR (<1.2) APTT (22.0-30.0) sec Sodium 136 L (137-145) mmol/L Potassium 5.1 (3.5-5.1) mmol/L Chloride 98 (98-107) mmol/L Carbon Dioxide 24 (22-30) mmol/L Anion Gap 14 mmol/L BUN 41 H (7-17) mg/dL Creatinine 1.89 H (0.52-1.04) mg/dL Est GFR (CKD-EPI)AfAm 31 (>60 ml/min/1.73 sqM) Est GFR (CKD-EPI)NonAf 27 (>60 ml/min/1.73 sqM) Glucose 80 (74-99) mg/dL Calcium 9.3 (8.4-10.2) mg/dL Magnesium 2.0 (1.6-2.3) mg/dL Total Bilirubin 0.5 (0.2-1.3) mg/dL AST 19 (14-36) U/L ALT 21 (9-52) U/L Alkaline Phosphatase 75 (38-126) U/L Total Creatine Kinase 40 (30-135) U/L CK-MB (CK-2) 1.5 (0.0-2.4) ng/mL CK-MB (CK-2) Rel Index 3.8 Troponin I 0.013 (0.000-0.034) ng/mL NT-Pro-B Natriuret Pep pg/mL Total Protein 6.5 (6.3-8.2) g/dL Albumin 4.0 (3.5-5.0) g/dL 09/09/17 09/09/17 Range/Units 12:30 12:30 WBC (3.8-10.6) k/uL RBC (3.80-5.40) m/uL Hgb (11.4-16.0) gm/dL Hct (34.0-46.0) % MCV (80.0-100.0) fL MCH (25.0-35.0) pg MCHC (31.0-37.0) g/dL RDW (11.5-15.5) % Plt Count (150-450) k/uL Neutrophils % % Lymphocytes % % Monocytes % % Eosinophils % % Basophils % % Neutrophils # (1.3-7.7) k/uL Lymphocytes # (1.0-4.8) k/uL Monocytes # (0-1.0) k/uL Eosinophils # (0-0.7) k/uL Basophils # (0-0.2) k/uL Hypochromasia Anisocytosis PT 10.8 (9.0-12.0) sec INR 1.1 (<1.2) APTT 32.1 H (22.0-30.0) sec Sodium (137-145) mmol/L Potassium (3.5-5.1) mmol/L Chloride (98-107) mmol/L Carbon Dioxide (22-30) mmol/L Anion Gap mmol/L BUN (7-17) mg/dL Creatinine (0.52-1.04) mg/dL Est GFR (CKD-EPI)AfAm (>60 ml/min/1.73 sqM) Est GFR (CKD-EPI)NonAf (>60 ml/min/1.73 sqM) Glucose (74-99) mg/dL Calcium (8.4-10.2) mg/dL Magnesium (1.6-2.3) mg/dL Total Bilirubin (0.2-1.3) mg/dL AST (14-36) U/L ALT (9-52) U/L Alkaline Phosphatase (38-126) U/L Total Creatine Kinase (30-135) U/L CK-MB (CK-2) (0.0-2.4) ng/mL CK-MB (CK-2) Rel Index Troponin I (0.000-0.034) ng/mL NT-Pro-B Natriuret Pep 7530 pg/mL Total Protein (6.3-8.2) g/dL Albumin (3.5-5.0) g/dL Critical Care Time Critical Care Time: Yes Total Critical Care Time: 35 Disposition Clinical Impression: Acute pulmonary edema, Acute exacerbation of chronic obstructive airways disease Disposition: ADMITTED IP TO THIS HOSP Is patient prescribed a controlled substance at d/c from ED?: No Referrals: Giselle,Soren, MD [Primary Care Provider] - 1-2 days Time of Disposition: 14:30
[2017-09-09 13:14] LABS: Anisocytosis Slight; Basophils % (A) 0 %; Eosinophils # (A) 0.1 k/uL (0-0.7); Eosinophils % (A) 1 %; HGB 9.3 gm/dL (11.4-16.0); Hypochromasia Marked; Lymphocytes # (A) 0.6 k/uL (1.0-4.8); Lymphocytes % (A) 7 %; MCH 25.8 pg (25.0-35.0); MCV 85.9 fL (80.0-100.0); Mean Platelet Volume 7.2; Monocytes # (A) 0.8 k/uL (0-1.0); Monocytes % (A) 10 %; Neutrophils # (A) 6.7 k/uL (1.3-7.7); Neutrophils % (A) 79 %; Platelet Count 285 k/uL (150-450); RBC 3.61 m/uL (3.80-5.40); RDW 17.6 % (11.5-15.5); WBC 8.5 k/uL (3.8-10.6)
[2017-09-09 13:24] LABS: Calcium 9.3 mg/dL (8.4-10.2); Potassium 5.1 mmol/L (3.5-5.1); Total Bilirubin 0.5 mg/dL (0.2-1.3); Total Protein 6.5 g/dL (6.3-8.2)
[2017-09-09 13:41] LABS: INR 1.1 (<1.2); Partial Thromboplastin Time 32.1 sec (22.0-30.0); Prothrombin Time 10.8 sec (9.0-12.0)
[2017-09-09 13:50] LABS: Creatine Kinase MB 1.5 ng/mL (0.0-2.4); Troponin I 0.013 ng/mL (0.000-0.034)
--- NOTE | 2017-09-09 13:52 | XR ---
EXAMINATION TYPE: XR chest 2V DATE OF EXAM: 09/09/2017 COMPARISON: 08/05/2018 TECHNIQUE: PA and lateral views submitted. HISTORY: Difficulty breathing FINDINGS: Coarsened interstitium with bilateral consolidation small effusion. Cardiomegaly noted. Apical pleura l thickening. Large mass right upper lobe again noted. Atherosclerotic change aorta. Diffuse osteopen ia and vascular calcifications noted. IMPRESSION: 1. Bilateral infiltrate and pleural effusion on a background of COPD and chronic interstitial lung di sease. Superimposed venous congestion or pneumonitis in the differential diagnosis. 2. Large right upper lobe pulmonary mass correlate for history of neoplasm.
[2017-09-09] MEDS ORDERED: NITROGLYCERIN OINT 1 INCH/GM PACKET TOPICAL STA (14:28)
[2017-09-09] MEDS ORDERED: FUROSEMIDE 10 MG/ML 4 ML VIAL IV STA (14:28)
[2017-09-09] MEDS: FUROSEMIDE 10 MG/ML 4 ML VIAL IV SCH (16:11)
[2017-09-09 16:43] LABS: Glucose,Whole Blood 132 mg/dL (75-99)
[2017-09-09] MEDS ORDERED: methylPREDNISolone SOD SUCCI 125 MG/2 ML VIAL IV SCH (18:00)
[2017-09-09] MEDS: IPRATROPIUM-ALBUTEROL 3 ML NEB INHALATION PRN (20:14)
[2017-09-09 20:58] LABS: Glucose,Whole Blood 196 mg/dL (75-99)
[2017-09-09] MEDS: INSULIN ASPART 100 UNIT/ML 1 ML 10 ML VIAL SQ SCH (22:04)
[2017-09-09] MEDS: METOPROLOL TARTRATE 50 MG TAB PO SCH (22:04)
[2017-09-09] MEDS: APIXABAN 5 MG TAB PO SCH (22:04)
[2017-09-09] MEDS: hydrALAZINE HCL 25 MG TAB PO SCH (22:05)
[2017-09-09] MEDS: MELATONIN 3 MG TABLET PO SCH (22:05)
[2017-09-10] MEDS: methylPREDNISolone SOD SUCCI 40 MG/ML 1 ML VIAL IV SCH ×4 (00:29→23:21)
[2017-09-10] MEDS: FUROSEMIDE 10 MG/ML 4 ML VIAL IV SCH ×3 (00:29→21:11)
--- NOTE | 2017-09-10 05:09 | HP ---
HISTORY AND PHYSICAL DATE OF SERVICE: 09/09/2017 PRESENTING COMPLAINT: Short of breath. HISTORY OF PRESENTING COMPLAINT: This is a very pleasant 71-year-old patient. Chronic stable medical conditions include rheumatoid arthritis, hyperlipidemia, hypertension, anxiety, depression. Patient presents with worsening short of breath, wheezing. Denies any cough. No fever. Appetite is fair. Has noticed also has been having lower extremity edema. In the ER she was felt to have both COPD and CHF exacerbation. Started on bronchodilators and Lasix. When she got up to the telemetry floor, she was actually feeling a bit better. There is no sputum and no fevers. REVIEW OF SYSTEMS: CONSTITUTIONAL: Tired. HEENT: None. RESPIRATORY: As above. CARDIOVASCULAR: As above. No chest pain. GASTROINTESTINAL: None. GENITOURINARY: None. MUSCULOSKELETAL: Pain in the joints. DERMATOLOGICAL: None. HEMATOLOGIC: None. LYMPHATIC: None. PSYCHIATRY: None. NEUROLOGICAL: None. PAST MEDICAL HISTORY: Congestive heart failure, EF 55% to 60%, atrial fibrillation, hypertensive heart disease, COPD, chronic nodular changes on CT chest, rheumatoid arthritis, hyperlipidemia, hypertension, anxiety, depression. PAST SURGICAL HISTORY: Tonsillectomy, ankle fracture with screws, lumbar steroid injections. SOCIAL HISTORY: The patient smoked a pack and a half started in 1973 and stopped in 2014. Did drink heavy alcohol in the past. . Uses a walker to get about. FAMILY HISTORY: Mother had myocardial infarction, from abdominal aortic aneurysm. HOME MEDICATIONS: 1. Zoloft 50 mg a day. 2. Potassium 20 mEq a day. 3. Lopressor 50 mg b.i.d. 4. Zaroxolyn 2.5 mg Thursday, Thursday and Thursday. 5. Zestril 10 mg p.o. daily. 6. DuoNeb q.i.d. 7. Hydralazine 25 mg p.o. t.i.d. 8. Calcitriol 0.5 mcg p.o. daily. 9. Eliquis 5 mg b.i.d. 10.Norvasc 10 mg p.o. daily. 11.Lipitor 20 mg p.o. daily. 12.Cordarone 200 mg p.o. daily. 13.Allopurinol 100 mg p.o. daily. ALLERGIES: None. PHYSICAL EXAMINATION: On examination, vital signs on presentation: Temperature 98.2 pulse 63, respirations 20, blood pressure 181/79, pulse ox 93% on room air. GENERAL APPEARANCE: Average built, sitting up, short of breath. EYES: Pupils equal. Conjunctivae normal. HENT: External appearance of the nose and ears normal. Oral cavity normal. NECK: JVD not raised. Mass not palpable. RESPIRATORY: Effort increased. LUNGS: Poor air entry, prolonged expiration. CARDIOVASCULAR: First and second sounds normal. Minimal edema. ABDOMEN: Soft, nontender. Liver and spleen not palpable. LYMPHATIC: No lymph node palpable in the neck and axillae. PSYCHIATRY: Alert and oriented x3. Mood and affect is normal. NEUROLOGICAL: Pupils equal. Cranial nerves grossly intact. Power and sensation grossly intact. MUSCULOSKELETAL: Evidence of osteoarthritis especially in the hands and knees. INVESTIGATIONS: White count 8.5, hemoglobin 9.3, potassium 5.1, BUN 41, creatinine 8.9. ProBNP 7530. Chest x-ray shows possible infiltrate and prominent interstitium, large upper right pulmonary mass possible. EKG normal sinus rhythm. ASSESSMENT: 1. Acute chronic obstructive pulmonary disease exacerbation in an ex-smoker. 2. Possible acute on chronic congestive heart failure exacerbation from diastolic dysfunction. Ejection fraction 55% to 60% from hypertensive heart disease. 3. Paroxysmal atrial fibrillation currently in sinus rhythm. Patient is chronically on Eliquis. 4. Chronic kidney disease from hypertensive nephrosclerosis stage 3. 5. Hypertensive heart disease. 6. Chronic rheumatoid arthritis. 7. Chronic nodular changes on CT scan being followed by Pulmonary. 8. Hyperlipidemia. 9. Essential hypertension. 10.Anxiety, depression, not otherwise specified. PLAN: Patient is put on IV Lasix in the ER. Will continue patient on nebulized bronchodilators and IV steroids. Home medications are resumed. Care was discussed with the patient. Will have input from Cardiology and Pulmonary. MMODL / IJN: [id number] /
[2017-09-10 06:06] LABS: Glucose,Whole Blood 156 mg/dL (75-99)
[2017-09-10] MEDS: INSULIN ASPART 100 UNIT/ML 1 ML 10 ML VIAL SQ SCH ×4 (06:44→21:11)
[2017-09-10 06:55] LABS: Calcium 9.9 mg/dL (8.4-10.2)
[2017-09-10] MEDS: IPRATROPIUM-ALBUTEROL 3 ML NEB INHALATION PRN ×3 (08:11→19:45)
[2017-09-10] MEDS: CALCITRIOL 0.25 MCG CAP PO SCH (08:30)
[2017-09-10] MEDS: ALLOPURINOL 100 MG TAB PO SCH (08:31)
[2017-09-10] MEDS: ATORVASTATIN 20 MG TAB PO SCH (08:31)
[2017-09-10] MEDS: SERTRALINE 50 MG TAB PO SCH (08:31)
[2017-09-10] MEDS: hydrALAZINE HCL 25 MG TAB PO SCH ×3 (08:31→21:11)
[2017-09-10] MEDS: METOPROLOL TARTRATE 50 MG TAB PO SCH ×2 (08:31→21:11)
[2017-09-10] MEDS: amLODIPine 10 MG TAB PO SCH (08:31)
[2017-09-10] MEDS: POTASSIUM CHLORIDE ER 20 MEQ TAB.ER PO SCH (08:31)
[2017-09-10] MEDS: APIXABAN 5 MG TAB PO SCH (08:31)
[2017-09-10] MEDS: AMIODARONE 200 MG TAB PO SCH (08:32)
[2017-09-10] MEDS: LISINOPRIL 10 MG TAB PO SCH (08:32)
[2017-09-10] MEDS ORDERED: ENOXAPARIN 40 MG/0.4 ML SYRINGE SQ SCH (09:00)
--- NOTE | 2017-09-10 11:14 | P.CRDCN ---
History of Present Illness Consult date: 09/10/17 Requesting physician: Steve Hudson Consult reason: congestive heart failure Chief complaint: Shortness of breath History of present illness: This is a 71-year-old female with history of hypertension, paroxysmal atrial fibrillation, patient has undergone prior TINA and cardioversion in July of this year. She also has a history of asthma, diastolic congestive heart failure, prior TIA, and follows with Dr. Curry in the office.She presents to the hospital on this occasion with symptoms of a 2-3 day duration of worsening shortness of breath. Positive PND and orthopnea as well as mild peripheral edema. Chest x-ray reveals bilateral infiltrate and pleural effusion on the background of COPD and chronic interstitial lung disease. Superimposed venous congestion or pneumonitis in the differential. Large right upper lobe pulmonary mass correlate 4 history of neoplasm. EKG on admission here showed a sinus bradycardia with nonspecific ST-T wave changes. I pressure 158/70 with a heart rate in the 60s, 98% on 2 L of oxygen. White blood cell count 8.5, hemoglobin 9.3, platelet count 285. Sodium 134, potassium 4.0, BUN 47, creatinine 1.8. Magnesium level 2.0. Troponin .013. BNP level 7530. Time of my examination this morning, patient states her breathing is significantly improved, as the edema in her extremities. Diuresed well through the night on IV Lasix. Past Medical History Past Medical History: Asthma, CVA/TIA, Hypertension, Osteoarthritis (OA), Pneumonia Additional Past Medical History / Comment(s): cva 2005 no residual problems, irreg heart rate,SOB History of Any Multi-Drug Resistant Organisms: None Reported Past Surgical History: Tonsillectomy Additional Past Surgical History / Comment(s): ORIF rt ankle-[address], IUD removal, lumbar steroid injections, DENTAL IMPLANTS, TINA, CARDIOVERSION Past Anesthesia/Blood Transfusion Reactions: No Reported Reaction Additional Past Anesthesia/Blood Transfusion Reaction / Comment(s): past blood transfusions-no reaction Smoking Status: Former smoker - Past Family History Mother Additional Family Medical History / Comment(s): Mother in her 80s from abdominal aortic aneurysm. Father Family Medical History: Myocardial Infarction ([place]) Additional Family Medical History / Comment(s): Father at age 52 from acute [place]. Patient has 1 brother that is healthy. Patient does not have any children. Medications and Allergies Home Medications Medication Instructions Recorded Confirmed Type Sertraline HCl [Zoloft] 50 mg PO DAILY 04/30/17 09/09/17 History Apixaban [Eliquis] 5 mg PO BID #60 tab 06/03/17 09/09/17 Rx Potassium Chloride ER [K-Dur 20] 20 meq PO DAILY #30 tab.er.prt 06/03/17 Rx Lisinopril [Zestril] 10 mg PO DAILY tab 07/16/17 09/09/17 Rx amLODIPine [Norvasc] 10 mg PO DAILY tab 07/16/17 09/09/17 Rx Amiodarone [Cordarone] 200 mg PO DAILY #0 07/30/17 09/09/17 Rx Metoprolol Tartrate [Lopressor] 50 mg PO BID #60 tab 07/30/17 09/09/17 Rx Allopurinol [Zyloprim] 100 mg PO DAILY 09/09/17 09/09/17 History Atorvastatin Calcium [Lipitor] 20 mg PO DAILY 09/09/17 09/09/17 History Calcitriol [Rocaltrol] 0.5 mcg PO DAILY 09/09/17 09/09/17 History Ipratropium-Albuterol Nebulize 3 ml INHALATION RT-QID 09/09/17 09/09/17 History [Duoneb 0.5 mg-3 mg/3 ml Soln] Metolazone [Zaroxolyn] 2.5 mg PO MOWEFR 09/09/17 09/09/17 History hydrALAZINE HCL [Apresoline] 25 mg PO TID 09/09/17 09/09/17 History Allergies Allergy/AdvReac Type Severity Reaction Status Date / Time No Known Allergies Allergy Verified 09/09/17 12:39 Physical Exam Vitals: Vital Signs Temp Pulse Pulse Resp BP BP Pulse Ox 09/10/17 08:37 69 20 09/10/17 08:36 97.9 F 69 20 158/76 98 09/10/17 08:23 72 09/10/17 08:14 70 98 09/10/17 03:00 97.0 F L 74 18 171/72 97 09/10/17 00:10 96.9 F L 63 18 147/70 99 04/25/18 20:28 70 09/09/17 20:14 70 09/09/17 20:12 98 09/09/17 20:00 97.5 F L 72 20 160/75 97 09/09/17 16:40 18 09/09/17 16:30 98.1 F 80 18 182/82 94 L 09/09/17 15:28 72 22 182/79 95 09/09/17 14:06 67 09/09/17 13:51 62 09/09/17 12:35 98 09/09/17 12:30 98.2 F 63 20 181/79 93 L Intake and Output 09/09/17 09/10/17 09/10/17 22:59 06:59 14:59 Intake Total 240 298 Output Total 300 1450 Balance -60 -1450 298 Intake: Oral 240 298 Output: Urine 300 1450 Other: Voiding Method Toilet Toilet Toilet # Voids 0 # Bowel Movements 0 Weight 64.2 kg 64 kg PHYSICAL EXAMINATION: HEENT: Head is atraumatic, normocephalic. Pupils equal, round. Neck is supple. There is no elevated jugular venous pressure. HEART EXAMINATION: Heart S1, S2 normal. No murmur or gallop heard. CHEST EXAMINATION: Lungs are clear to auscultation and precussion. No chest wall tenderness is noted on palpation or with deep breathing. ABDOMEN: Soft, nontender. Bowel sounds are heard. No organomegaly noted. EXTREMITIES: 2+ peripheral pulses with no evidence of peripheral edema and no calf tenderness noted. NEUROLOGIC patient is awake, alert and oriented -3. . Results 09/09/17 12:30 09/10/17 06:23 Cardiac Enzymes 09/09/17 09/09/17 Range/Units 12:30 12:30 AST 19 (14-36) U/L CK-MB (CK-2) 1.5 (0.0-2.4) ng/mL Troponin I 0.013 (0.000-0.034) ng/mL Coagulation 09/09/17 Range/Units 12:30 PT 10.8 (9.0-12.0) sec APTT 32.1 H (22.0-30.0) sec CBC 09/09/17 Range/Units 12:30 WBC 8.5 (3.8-10.6) k/uL RBC 3.61 L (3.80-5.40) m/uL Hgb 9.3 L (11.4-16.0) gm/dL Hct 31.0 L (34.0-46.0) % Plt Count 285 (150-450) k/uL Comprehensive Metabolic Panel 09/09/17 09/10/17 Range/Units 12:30 06:23 Sodium 136 L 134 L (137-145) mmol/L Potassium 5.1 4.0 (3.5-5.1) mmol/L Chloride 98 93 L (98-107) mmol/L Carbon Dioxide 24 26 (22-30) mmol/L BUN 41 H 47 H (7-17) mg/dL Creatinine 1.89 H 1.85 H (0.52-1.04) mg/dL Glucose 80 142 H (74-99) mg/dL Calcium 9.3 9.9 (8.4-10.2) mg/dL AST 19 (14-36) U/L ALT 21 (9-52) U/L Alkaline Phosphatase 75 (38-126) U/L Total Protein 6.5 (6.3-8.2) g/dL Albumin 4.0 (3.5-5.0) g/dL Current Medications Generic Name Dose Route Start Last Admin Trade Name Freq PRN Reason Stop Dose Admin Albuterol/Ipratropium 3 ml 09/09/17 14:30 09/10/17 08:11 Duoneb 0.5 Mg-3 Mg/3 Ml Soln INHALATION 3 ml RT-Q4H PRN Administration Shortness Of Breath Or Wheezing Allopurinol 100 mg 09/10/17 09:00 09/10/17 08:31 Zyloprim PO 100 mg DAILY SIMON Administration Amiodarone HCl 200 mg 09/10/17 09:00 09/10/17 08:32 Cordarone PO 200 mg DAILY SIMON Administration Amlodipine Besylate 10 mg 09/10/17 09:00 09/10/17 08:31 Norvasc PO 10 mg DAILY SIMON Administration Apixaban 5 mg 09/09/17 21:30 09/10/17 08:31 Eliquis PO 5 mg BID SIMON Administration Atorvastatin Calcium 20 mg 09/10/17 09:00 09/10/17 08:31 Lipitor PO 20 mg DAILY SIMON Administration Calcitriol 0.5 mcg 09/10/17 09:00 09/10/17 08:30 Rocaltrol PO 0.5 mcg DAILY SIMON Administration Furosemide 40 mg 09/09/17 16:00 09/10/17 08:30 Lasix IV 40 mg Q8HR SIMON Administration Hydralazine HCl 25 mg 09/09/17 22:00 09/10/17 08:31 Apresoline PO 25 mg TID SIMON Administration Insulin Aspart 0 unit 09/09/17 21:00 09/10/17 06:44 Novolog SQ 3 unit ACHS SIMON Administration Protocol Lisinopril 10 mg 09/10/17 09:00 09/10/17 08:32 Zestril PO 10 mg DAILY SIMON Administration Melatonin 3 mg 09/09/17 21:30 09/09/17 22:05 Melatonin PO 3 mg HS SIMON Administration Methylprednisolone Sodium Succinate 40 mg 09/10/17 00:00 09/10/17 08:29 Solu-Medrol IV 40 mg Q8HR SIMON Administration Metolazone 2.5 mg 09/11/17 09:00 Zaroxolyn PO [id number] SIMON Metoprolol Tartrate 50 mg 09/09/17 21:30 09/10/17 08:31 Lopressor PO 50 mg BID SIMON Administration Potassium Chloride 20 meq 09/10/17 09:00 09/10/17 08:31 K-Dur 20 PO 20 meq DAILY SIMON Administration Sertraline HCl 50 mg 09/10/17 09:00 09/10/17 08:31 Zoloft PO 50 mg DAILY SIMON Administration Intake and Output 09/09/17 09/10/17 09/10/17 22:59 06:59 14:59 Intake Total 240 298 Output Total 300 1450 Balance -60 -1450 298 Intake: Oral 240 298 Output: Urine 300 1450 Other: Voiding Method Toilet Toilet Toilet # Voids 0 # Bowel Movements 0 Weight 64.2 kg 64 kg 09/09/17 12:30 09/10/17 06:23 EKG Interpretations (text) EKG shows a sinus bradycardia with nonspecific ST-T wave changes Assessment and Plan Plan: Assessment and plan #1 diastolic congestive heart failure acute on chronic #2 COPD exacerbation with possible pneumonia. #3 hypertension #4 chronic kidney disease #5 rheumatoid arthritis #6 paroxysmal atrial fibrillation on Eliquis patient did recently undergo a TINA and cardioversion in July of this year, remains in normal sinus rhythm #7 hyperlipidemia #8 anxiety and depression Plan Cardiology's perspective, we'll recommend to continue the patient on IV Lasix for 24 hours. Continue amiodarone 200 mg daily, Norvasc 10 mg daily, Lipitor 20 mg daily, hydralazine 25 3 times a day, lisinopril 10 mg daily, metoprolol 50 mg twice a day, Zaroxolyn 2-1/2 mg 3 times a week. We will repeat an echocardiogram with Doppler study. Further recommendations to follow. DNP note has been reviewed, I agree with a documented findings and plan of care. Patient was seen and examined.
[2017-09-10 11:31] LABS: Glucose,Whole Blood 127 mg/dL (75-99)
--- NOTE | 2017-09-10 12:04 | P.CNPUL ---
History of Present Illness Consult date: 09/10/17 Requesting physician: Steve Hudson Reason for consult: dyspnea, abnormal CXR/CT Chief complaint: Shortness of breath, swelling of the lower extremities History of present illness: This is a very pleasant 71-year-old female patient who follows with Dr. Desai as her primary care physician. She has a history of hypertension, CVA/TIA, diastolic congestive heart failure, rheumatoid arthritis, hyperlipidemia. She also has a history of paroxysmal atrial fibrillation and had undergone cardioversion last month. She has been anticoagulated with Eliquis. She does have a history of chronic obstructive pulmonary disease and follows with Dr. Talbot in our office for the same. 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 Computed tomography scan of the chest in May 2017 revealed transient fluid within the right major fissure resulting pseudomass. There was been bilateral pleural effusions and atelectasis with scattered nonspecific nodular densities. He has felt that she was not a good candidate for any further investigations in this regard. He has been observing it in the outpatient setting. She had presented here to the emergency room yesterday with a 2 to three-day complaint of increasing shortness of breath and lower extremity edema. Her chest x-ray did reveal evidence of bilateral infiltrate and pleural effusions with superimposed COPD. Again noted the large left right upper lobe pseudomass. She is seen today in consultation on the selective care unit. She is awake and alert in no acute distress. She denies any fever, chills or night sweats. No hemoptysis. No weight loss. She's had lower extremity edema. She's been afebrile. Hemodynamically stable. Maintaining good O2 saturations in the high 90s on 2 L/m per nasal cannula. She is maintaining sinus rhythm. She's been initiated on bronchodilators and IV Solu- Medrol. She is on Lasix 40 mg IV push every 8 hours. Zaroxolyn 2.5 Fridays. No leukocytosis. Hemoglobin 9.3. Creatinine 1.89. ProBNP 7530. Review of Systems Eyes: bilateral blurred vision, bilateral decreased vision Ears: deny: decreased hearing Ears, nose, mouth and throat: Denies headache, Denies sore throat Cardiovascular: Reports orthopnea, Reports paroxysmal nocturnal dyspnea, Reports shortness of breath Respiratory: Reports dyspnea Gastrointestinal: Denies abdominal pain, Denies diarrhea, Denies nausea, Denies vomiting Genitourinary: Denies dysuria, Denies hematuria Musculoskeletal: Denies myalgias Musculoskeletal: bilateral: ankle swelling, foot swelling Integumentary: Denies pruritus, Denies rash Neurological: Denies numbness, Denies weakness Psychiatric: Denies anxiety, Denies depression Endocrine: Denies fatigue, Denies weight change Hematologic/Lymphatic: Reports as per HPI Allergic/Immunologic: Reports as per HPI Past Medical History Past Medical History: Asthma, CVA/TIA, Hypertension, Osteoarthritis (OA), Pneumonia Additional Past Medical History / Comment(s): cva 2005 no residual problems, irreg heart rate,SOB History of Any Multi-Drug Resistant Organisms: None Reported Past Surgical History: Tonsillectomy Additional Past Surgical History / Comment(s): ORIF rt ankle-[address], IUD removal, lumbar steroid injections, DENTAL IMPLANTS, TINA, CARDIOVERSION Past Anesthesia/Blood Transfusion Reactions: No Reported Reaction Additional Past Anesthesia/Blood Transfusion Reaction / Comment(s): past blood transfusions-no reaction Smoking Status: Former smoker - Past Family History Mother Additional Family Medical History / Comment(s): Mother in her 80s from abdominal aortic aneurysm. Father Family Medical History: Myocardial Infarction ([place]) Additional Family Medical History / Comment(s): Father at age 52 from acute [place]. Patient has 1 brother that is healthy. Patient does not have any children. Medications and Allergies Home Medications Medication Instructions Recorded Confirmed Type Sertraline HCl [Zoloft] 50 mg PO DAILY 04/30/17 09/09/17 History Apixaban [Eliquis] 5 mg PO BID #60 tab 06/03/17 09/09/17 Rx Potassium Chloride ER [K-Dur 20] 20 meq PO DAILY #30 tab.er.prt 06/03/17 Rx Lisinopril [Zestril] 10 mg PO DAILY tab 07/16/17 09/09/17 Rx amLODIPine [Norvasc] 10 mg PO DAILY tab 07/16/17 09/09/17 Rx Amiodarone [Cordarone] 200 mg PO DAILY #0 07/30/17 09/09/17 Rx Metoprolol Tartrate [Lopressor] 50 mg PO BID #60 tab 07/30/17 09/09/17 Rx Allopurinol [Zyloprim] 100 mg PO DAILY 09/09/17 09/09/17 History Atorvastatin Calcium [Lipitor] 20 mg PO DAILY 09/09/17 09/09/17 History Calcitriol [Rocaltrol] 0.5 mcg PO DAILY 09/09/17 09/09/17 History Ipratropium-Albuterol Nebulize 3 ml INHALATION RT-QID 09/09/17 09/09/17 History [Duoneb 0.5 mg-3 mg/3 ml Soln] Metolazone [Zaroxolyn] 2.5 mg PO MOWEFR 09/09/17 09/09/17 History hydrALAZINE HCL [Apresoline] 25 mg PO TID 09/09/17 09/09/17 History Allergies Allergy/AdvReac Type Severity Reaction Status Date / Time No Known Allergies Allergy Verified 09/09/17 12:39 Physical Exam Vitals: Vital Signs Temp Pulse Pulse Resp BP BP Pulse Ox 09/10/17 08:37 69 20 09/10/17 08:36 97.9 F 69 20 158/76 98 09/10/17 08:23 72 09/10/17 08:14 70 98 09/10/17 03:00 97.0 F L 74 18 171/72 97 09/10/17 00:10 96.9 F L 63 18 147/70 99 09/09/17 20:28 70 09/09/17 20:14 70 09/09/17 20:12 98 09/09/17 20:00 97.5 F L 72 20 160/75 97 09/09/17 16:40 18 09/09/17 16:30 98.1 F 80 18 182/82 94 L 09/09/17 15:28 72 22 182/79 95 09/09/17 14:06 67 09/09/17 13:51 62 09/09/17 12:35 98 09/09/17 12:30 98.2 F 63 20 181/79 93 L Intake and Output 09/09/17 09/10/17 09/10/17 22:59 06:59 14:59 Intake Total 240 298 Output Total 300 1450 Balance -60 -1450 298 Intake: Oral 240 298 Output: Urine 300 1450 Other: Voiding Method Toilet Toilet Toilet # Voids 0 # Bowel Movements 0 Weight 64.2 kg 64 kg - Constitutional General appearance: average body habitus, no acute distress - EENT Eyes: PERRLA ENT: hearing grossly normal Ears: bilateral: normal - Neck Neck: normal ROM - Respiratory Respiratory: bilateral: diminished, rales - Cardiovascular Rhythm: regular Heart sounds: normal: S1, S2 - Gastrointestinal General gastrointestinal: normal bowel sounds - Integumentary Integumentary: normal turgor - Neurologic No noted focal deficits. - Musculoskeletal Musculoskeletal: generalized weakness - Psychiatric Psychiatric: A&O x's 3 Results - Laboratory Findings CBC and BMP: 09/09/17 12:30 09/10/17 06:23 PT/INR, D-dimer PT 10.8 sec (9.0-12.0) 09/09/17 12:30 INR 1.1 (<1.2) 09/09/17 12:30 Abnormal lab findings: Abnormal Labs 09/09/17 09/09/17 09/09/17 12:30 12:30 12:30 RBC 3.61 L Hgb 9.3 L Hct 31.0 L MCHC 30.0 L RDW 17.6 H Lymphocytes # 0.6 L APTT 32.1 H Sodium 136 L Chloride BUN 41 H Creatinine 1.89 H Glucose POC Glucose (mg/dL) 09/09/17 09/09/17 09/10/17 16:41 20:56 06:04 RBC Hgb Hct MCHC RDW Lymphocytes # APTT Sodium Chloride BUN Creatinine Glucose POC Glucose (mg/dL) 132 H 196 H 156 H 09/10/17 09/10/17 06:23 11:29 RBC Hgb Hct MCHC RDW Lymphocytes # APTT Sodium 134 L Chloride 93 L BUN 47 H Creatinine 1.85 H Glucose 142 H POC Glucose (mg/dL) 127 H - Diagnostic Findings Chest x-ray: image reviewed Assessment and Plan Assessment: Impression: #1 Acute hypoxic respiratory failure secondary to an acute exacerbation of diastolic congestive heart failure. #2 Acute hypoxic respiratory failure secondary to an acute exacerbation of chronic obstructive pulmonary disease. #3 Stable right upper lobe pulmonary mass secondary to pseudomonal tumor with fluid in the major fissure. #4 Hypertension. #5 Hyperlipidemia. #6 Paroxysmal atrial fibrillation with recent cardioversion, currently in sinus rhythm. Maintained on amiodarone, anticoagulated #7 History of CVA/TIA. #8 Rheumatoid arthritis. Plan: The patient was seen and evaluated by Dr. Talbot. The patient's chest x-ray previous chest x-rays and CT scans were all reviewed. The right upper lobe pseudotumor remains unchanged. We'll continue with diuretics. Continue bronchodilators and IV Solu-Medrol. Anticoagulated with Eliquis. We will increase her activity as tolerated. We will continue to follow and make further recommendations based on her clinical status. I, the cosigning physician, performed a history & physical examination of the patient. Lungs sounds with basilar crackles, end expiratory wheeze, diminished. Maintaining good O2 saturations in the 90s on 2 L/m per nasal cannula. I discussed the assessment and plan of care with my nurse practitioner, Shakila Munson. I attest to the above consultation as dictated by her. Time with Patient: Greater than 30
--- NOTE | 2017-09-10 12:30 | P.PN ---
Progress Note - Text This is an addendum to the dictated cardiology consultation. The patient has a known history of diastolic dysfunction heart failure as well as a history of COPD. She is status post cardioversion for atrial fibrillation with maintaining sinus mechanism. She presents with symptoms progressive dyspnea, mild edema and evidence of PND and orthopnea. She's feeling better after intravenous diuretics. She has no evidence of recurrent atrial fibrillation since her admission. Her lung exam showed decreased air exchange with no wheezes. She is in sinus mechanism is a systolic murmur and there is no peripheral edema. The patient presents with progressive dyspnea with a combination of exacerbation of heart failure with preserved systolic function and exacerbation of COPD. She has an abnormal chest x-ray that was noted in the past with pseudotumor. From the cardiac standpoint we will continue intravenous diuresis for 24 hours, continue anticoagulation, increase her physical activity and if stable I would expect she should be able to be discharged home soon. Thank you for this consult we will follow with you.
[2017-09-10 14:49] LABS: T4, Free (Free Thyroxine) 2.27 ng/dL (0.78-2.19)
[2017-09-10 17:10] LABS: Glucose,Whole Blood 145 mg/dL (75-99)
[2017-09-10] MEDS: APIXABAN 2.5 MG TABLET PO SCH (21:11)
--- NOTE | 2017-09-10 21:55 | PN ---
PROGRESS NOTE DATE OF SERVICE: 09/10/2017 PRESENTING COMPLAINT: Short of breath. INTERVAL HISTORY: This is a patient who presented with a combination of COPD and CHF exacerbation on bronchodilators, IV Lasix and doing better this afternoon when I saw her, actually sitting up in a chair. Edema has gone down. Did tolerate her meal. at the bedside. REVIEW OF SYSTEMS: Done for constitutional, cardiovascular, GI, pulmonary; relevant findings as above. CURRENT MEDICATIONS: Reviewed that include that include: 1. Bronchodilators. 2. IV steroids. 3. IV Lasix. EXAMINATION: Temperature 97.9, pulse 75, respirations 20, blood pressure 130/69, pulse ox 95% on room air. GENERAL APPEARANCE: Sitting up in a chair, looking more comfortable. EYES: Pupils equal. Conjunctivae normal. HEENT: External nose and ears normal. Oral cavity normal. NECK: JVD not raised. Mass not palpable. RESPIRATORY: Effort increased. LUNGS: Improved air entry. CARDIOVASCULAR: First and second sounds normal. Minimal edema. ABDOMEN: Soft, nontender. Liver and spleen not palpable. PSYCHIATRY: Alert and oriented x3. Mood and affect are normal. INVESTIGATIONS: Potassium 4, BUN 47, creatinine 1.85. TSH 0.153 and free T4 was 2.27. ASSESSMENT: 1. Acute chronic obstructive pulmonary disease exacerbation in an ex-smoker, improving. 2. Acute on chronic congestive heart failure exacerbation from diastolic dysfunction, ejection fraction 55%-60%, hypertensive heart disease. 3. Paroxysmal atrial fibrillation, currently in sinus rhythm, chronically on Eliquis. 4. Chronic kidney disease from hypertensive nephrosclerosis stage 3. 5. Hypertensive heart disease. 6. Chronic rheumatoid arthritis. 7. Chronic nodular changes on CT scan being followed by Pulmonary. 8. Hyperlipidemia. 9. Essential hypertension. 10.Anxiety, depression, not otherwise specified. PLAN: Pseudotumor per Pulmonary in the right upper lobe. Continue current medication and treatment plan. Care was discussed with length with the patient and her . Encouraged to ambulate. MMODL / IJN: [id number] /
[2017-09-10] MEDS: MELATONIN 3 MG TABLET PO SCH (22:39)
[2017-09-11] MEDS: IPRATROPIUM-ALBUTEROL 3 ML NEB INHALATION SCH ×4 (00:12→15:47)
[2017-09-11] MEDS: INSULIN ASPART 100 UNIT/ML 1 ML 10 ML VIAL SQ SCH ×3 (06:39→16:11)
[2017-09-11 07:06] LABS: Calcium 9.6 mg/dL (8.4-10.2)
[2017-09-11] MEDS: CALCITRIOL 0.25 MCG CAP PO SCH (08:23)
[2017-09-11] MEDS: SERTRALINE 50 MG TAB PO SCH (08:24)
[2017-09-11] MEDS: hydrALAZINE HCL 25 MG TAB PO SCH ×2 (08:24→14:53)
[2017-09-11] MEDS: APIXABAN 2.5 MG TABLET PO SCH (08:24)
[2017-09-11] MEDS: methylPREDNISolone SOD SUCCI 40 MG/ML 1 ML VIAL IV SCH (08:24)
[2017-09-11] MEDS: ATORVASTATIN 20 MG TAB PO SCH (08:25)
[2017-09-11] MEDS: LISINOPRIL 10 MG TAB PO SCH (08:25)
[2017-09-11] MEDS: AMIODARONE 200 MG TAB PO SCH (08:25)
[2017-09-11] MEDS: METOPROLOL TARTRATE 50 MG TAB PO SCH (08:25)
[2017-09-11] MEDS: ALLOPURINOL 100 MG TAB PO SCH (08:25)
[2017-09-11] MEDS: POTASSIUM CHLORIDE ER 20 MEQ TAB.ER PO SCH (08:25)
[2017-09-11] MEDS: amLODIPine 10 MG TAB PO SCH (08:26)
[2017-09-11] MEDS ORDERED: METOLAZONE 2.5 MG TAB PO SCH (09:00)
[2017-09-11] MEDS: FUROSEMIDE 10 MG/ML 4 ML VIAL IV SCH (10:07)
[2017-09-11 11:32] LABS: Glucose,Whole Blood 109 mg/dL (75-99)
[2017-09-11 11:47] VITALS: PULSE 65
--- NOTE | 2017-09-11 12:45 | P.PN ---
Subjective Progress Note Date: 09/11/17 Principal diagnosis: Acute hypoxic respiratory failure secondary to both acute exacerbation of diastolic congestive heart failure and acute exacerbation chronic obstructive pulmonary disease. This is a very pleasant 71-year-old female patient who follows with Dr. Desai as her primary care physician. She has a history of hypertension, CVA/TIA, diastolic congestive heart failure, rheumatoid arthritis, hyperlipidemia. She also has a history of paroxysmal atrial fibrillation and had undergone cardioversion last month. She has been anticoagulated with Eliquis. She does have a history of chronic obstructive pulmonary disease and follows with Dr. Talbot in our office for the same. 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 Computed tomography scan of the chest in May 2017 revealed transient fluid within the right major fissure resulting pseudomass. There was been bilateral pleural effusions and atelectasis with scattered nonspecific nodular densities. He has felt that she was not a good candidate for any further investigations in this regard. He has been observing it in the outpatient setting. She had presented here to the emergency room yesterday with a 2 to three-day complaint of increasing shortness of breath and lower extremity edema. Her chest x-ray did reveal evidence of bilateral infiltrate and pleural effusions with superimposed COPD. Again noted the large left right upper lobe pseudomass. She is seen today in consultation on the selective care unit. She is awake and alert in no acute distress. She denies any fever, chills or night sweats. No hemoptysis. No weight loss. She's had lower extremity edema. She's been afebrile. Hemodynamically stable. Maintaining good O2 saturations in the high 90s on 2 L/m per nasal cannula. She is maintaining sinus rhythm. She's been initiated on bronchodilators and IV Solu- Medrol. She is on Lasix 40 mg IV push every 8 hours. Zaroxolyn 2.5 Fridays. No leukocytosis. Hemoglobin 9.3. Creatinine 1.89. ProBNP 7530. The patient is seen again today September 11 2017 in follow-up in the selective care unit here at she is currently sitting up in bed. She is awake and alert in no acute distress. She states she is nearly back to her baseline. No worsening shortness of breath, cough or congestion. She is maintaining good O2 saturations in the mid 90s on room air. She's been afebrile. Hemodynamically stable. Her creatinine did go up to 2.97. Diuretics and Eliquis were adjusted. Objective - Vital Signs Vital signs: Vital Signs Temp 96.9 F L 09/11/17 11:47 Pulse 65 09/11/17 11:48 Resp 20 09/11/17 11:48 BP 126/67 09/11/17 11:47 Pulse Ox 95 09/11/17 11:47 Intake & Output 09/10/17 09/11/17 09/11/17 18:59 06:59 18:59 Intake Total 718 240 Output Total 200 800 Balance 518 -800 240 Weight 63.6 kg Intake: Oral 718 240 Output: Urine 200 800 Other: Voiding Method Toilet Toilet Toilet # Voids 1 2 - Exam GENERAL EXAM: Alert, active, comfortable in no apparent distress. HEAD: Normocephalic. EYES: Normal reaction of pupils, equal size. NOSE: Clear with pink turbinates. THROAT: No erythema or exudates. NECK: No masses, no JVD. CHEST: No chest wall deformity. LUNGS: Equal air entry with no crackles, wheeze, rhonchi or dullness. CVS: S1 and S2 normal with no audible murmur, regular rhythm. ABDOMEN: No hepatosplenomegaly, normal bowel sounds, no guarding or rigidity. SPINE: No scoliosis or deformity SKIN: No rashes CENTRAL NERVOUS SYSTEM: No focal deficits, tone is normal in all 4 extremities. EXTREMITIES: There is no peripheral edema. No clubbing, no cyanosis. Peripheral pulses are intact. - Labs CBC & Chem 7: 09/09/17 12:30 09/11/17 06:30 Labs: Abnormal Lab Results - Last 24 Hours (Table) 09/10/17 09/10/17 09/11/17 Range/Units 06:23 17:05 06:30 Sodium 134 L (137-145) mmol/L Chloride 92 L (98-107) mmol/L BUN 69 H (7-17) mg/dL Creatinine 2.97 H (0.52-1.04) mg/dL Glucose 132 H (74-99) mg/dL POC Glucose (mg/dL) 145 H (75-99) mg/dL TSH 0.153 L (0.465-4.680) mIU/L Free T4 2.27 H (0.78-2.19) ng/dL 09/11/17 Range/Units 11:30 Sodium (137-145) mmol/L Chloride (98-107) mmol/L BUN (7-17) mg/dL Creatinine (0.52-1.04) mg/dL Glucose (74-99) mg/dL POC Glucose (mg/dL) 109 H (75-99) mg/dL TSH (0.465-4.680) mIU/L Free T4 (0.78-2.19) ng/dL Assessment and Plan Assessment: Impression: #1 Acute hypoxic respiratory failure secondary to an acute exacerbation of diastolic congestive heart failure. #2 Acute hypoxic respiratory failure secondary to an acute exacerbation of chronic obstructive pulmonary disease. #3 Stable right upper lobe pulmonary mass secondary to pseudotumor with fluid in the major fissure. Similar to previous studies. #4 Hypertension. #5 Hyperlipidemia. #6 Paroxysmal atrial fibrillation with recent cardioversion, currently in sinus rhythm. Maintained on amiodarone, anticoagulated #7 History of CVA/TIA. #8 Rheumatoid arthritis. #9 Acute on chronic renal failure. Current creatinine 2.97. Plan: The patient was seen and evaluated by Dr. Talbot. The patient is stable from the pulmonary standpoint. We'll convert her IV site and Medrol to oral prednisone. Continue her usual pulmonary medications. She could be discharged home from our standpoint. Follow up in the office in 1-2 weeks' time. Anticoagulated with Eliquis, dose adjusted per creatinine. Diuretics per cardiology. I, the cosigning physician, performed a history & physical examination of the patient. Lungs sounds with faint, end expiratory wheeze, diminished. Maintaining good O2 saturations in the 90s on room air. I discussed the assessment and plan of care with my nurse practitioner, Shakila Munson. I attest to the above consultation as dictated by her.
--- NOTE | 2017-09-11 14:39 | P.PN ---
Subjective Progress Note Date: 09/11/17 Principal diagnosis: CHF This is a 71-year-old female with history of hypertension, paroxysmal atrial fibrillation, patient has undergone prior TINA and cardioversion in July of this year. She also has a history of asthma, diastolic congestive heart failure, prior TIA, and follows with Dr. Curry in the office.She presents to the hospital on this occasion with symptoms of a 2-3 day duration of worsening shortness of breath. Positive PND and orthopnea as well as mild peripheral edema. Chest x-ray reveals bilateral infiltrate and pleural effusion on the background of COPD and chronic interstitial lung disease. Superimposed venous congestion or pneumonitis in the differential. Large right upper lobe pulmonary mass correlate 4 history of neoplasm. EKG on admission here showed a sinus bradycardia with nonspecific ST-T wave changes. I pressure 158/70 with a heart rate in the 60s, 98% on 2 L of oxygen. White blood cell count 8.5, hemoglobin 9.3, platelet count 285. Sodium 134, potassium 4.0, BUN 47, creatinine 1.8. Magnesium level 2.0. Troponin .013. BNP level 7530. Time of my examination this morning, patient states her breathing is significantly improved, as the edema in her extremities. Diuresed well through the night on IV Lasix. 09/11/2017 Patient diuresed well through the night on IV Lasix, feels 100% better today. She's been up ambulating without any difficulty. BUN and creatinine elevated today at 69 and 2.9, from 47 and 1.8. TSH 0.15 and free T4 2.. IV Lasix has been discontinued, we will check lytes BUN and creatinine in the morning and if stable patient may be able to be discharged home. Objective - Vital Signs Vital signs: Vital Signs Temp 96.9 F L 09/11/17 11:47 Pulse 65 09/11/17 11:48 Resp 20 09/11/17 11:48 BP 126/67 09/11/17 11:47 Pulse Ox 95 09/11/17 11:47 Intake & Output 09/10/17 09/11/17 09/11/17 18:59 06:59 18:59 Intake Total 718 600 Output Total 200 800 300 Balance 518 -800 300 Weight 63.6 kg Intake: Oral 718 600 Output: Urine 200 800 300 Other: Voiding Method Toilet Toilet Toilet # Voids 1 2 1 - Exam PHYSICAL EXAMINATION: HEENT: Head is atraumatic, normocephalic. Pupils equal, round. Neck is supple. There is no elevated jugular venous pressure. HEART EXAMINATION: Heart S1, S2 normal. No murmur or gallop heard. CHEST EXAMINATION: Lungs are clear to auscultation and precussion. No chest wall tenderness is noted on palpation or with deep breathing. ABDOMEN: Soft, nontender. Bowel sounds are heard. No organomegaly noted. EXTREMITIES: 2+ peripheral pulses with no evidence of peripheral edema and no calf tenderness noted. NEUROLOGIC patient is awake, alert and oriented -3. - Labs CBC & Chem 7: 09/09/17 12:30 09/11/17 06:30 Labs: Abnormal Lab Results - Last 24 Hours (Table) 09/10/17 09/10/17 09/11/17 Range/Units 06:23 17:05 06:30 Sodium 134 L (137-145) mmol/L Chloride 92 L (98-107) mmol/L BUN 69 H (7-17) mg/dL Creatinine 2.97 H (0.52-1.04) mg/dL Glucose 132 H (74-99) mg/dL POC Glucose (mg/dL) 145 H (75-99) mg/dL Free T4 2.27 H (0.78-2.19) ng/dL 09/11/17 Range/Units 11:30 Sodium (137-145) mmol/L Chloride (98-107) mmol/L BUN (7-17) mg/dL Creatinine (0.52-1.04) mg/dL Glucose (74-99) mg/dL POC Glucose (mg/dL) 109 H (75-99) mg/dL Free T4 (0.78-2.19) ng/dL Assessment and Plan Plan: Assessment and plan #1 diastolic congestive heart failure acute on chronic #2 COPD exacerbation with possible pneumonia. #3 hypertension #4 chronic kidney disease #5 rheumatoid arthritis #6 paroxysmal atrial fibrillation on Eliquis patient did recently undergo a TINA and cardioversion in July of this year, remains in normal sinus rhythm #7 hyperlipidemia #8 anxiety and depression Plan From cardiology's perspective, we will discontinue the IV Lasix, check lytes BUN and creatinine in the morning tomorrow, if stable patient may be able to be discharged tomorrow to follow-up in the office. DNP note has been reviewed, I agree with a documented findings and plan of care. Patient was seen and examined.
[2017-09-11 15:04] VITALS: BP 127/78; RESP 18; TEMP 97
--- NOTE | 2017-09-12 07:57 | DS ---
DISCHARGE SUMMARY DATE OF ADMISSION: September 09, 2017. DATE OF DISCHARGE: September 11, 2017. FINAL DIAGNOSES: 1. Acute chronic obstructive pulmonary disease exacerbation in an ex-smoker. 2. Acute on chronic congestive heart failure exacerbation from diastolic dysfunction. Ejection fraction 55-60% from hypertensive heart disease. 3. Paroxysmal atrial fibrillation. The patient is chronically on Eliquis. 4. Chronic kidney disease from hypertensive nephrosclerosis stage III. 5. Hypertensive heart disease. 6. Chronic rheumatoid arthritis. 7. Chronic nodular changes on CT scan being followed by Pulmonary. 8. Hyperlipidemia. 9. Essential hypertension. 10.Anxiety, depression, not otherwise specified. HOSPITAL COURSE: This patient presented with COPD and CHF exacerbation. Did well with diuretics, nebulized bronchodilators. The patient's creatinine did bump up from 1.89 to 2.97. The patient has been asked to hold off ZO inhibitor for next 3 days and also skip next dose of Zaroxolyn, which is due on Thursday and have labs checked on Thursday. Care was discussed with the patient and . CONSULTATION: Dr. Talbot from Pulmonary, Dr. Sampson from Cardiology. DISCHARGE MEDICATIONS: 1. Zoloft 50 mg a day. 2. Eliquis 5 mg b.i.d. 3. Potassium 20 mEq a day. 4. Zestril 10 mg p.o. daily. To start next Thursday. 5. Norvasc 10 mg p.o. daily. 6. Cordarone 200 mg p.o. daily. 7. Lopressor 50 mg b.i.d. 8. Allopurinol 100 mg p.o. daily. 9. Lipitor 20 mg p.o. daily. 10.Calcitriol 0.5 mcg p.o. daily. 11.DuoNeb q.i.d. 12.Zaroxolyn 2.5 mg Thursday, Thursday and Thursday. The patient is to skip next dose on Thursday. 13.Hydralazine 25 mg p.o. t.i.d. 14.Ventolin 1-2 puffs q.6h p.r.n. 15.Prednisone 20 mg from 3 days and then stop. FOLLOWUP: Follow up with Dr. Talbot on September 24, 2017, Dr. Desai on September 26, 2017. Dr. Alicia Curry on 09/22/17. BMP on 09/15/17. Copy to Dr. Desai. YRN / IJN: [id number] /
[2017-09-12] MEDS ORDERED: predniSONE 20 MG TAB PO SCH (09:00)
== END 2017-09-11 16:12 | disposition home or self-care (01) | DRG 291 ==
LOC: EC 12:26 → 6SEL 14:30
PROVIDERS: ADMIT Hospitalist; ATTEND Hospitalist
DX: I13.0 Hypertensive heart and chronic kidney disease with heart failure and stage 1 through stage 4 chronic kidney disease, or unspecified chronic kidney disease (principal); I50.33 Acute on chronic diastolic (congestive) heart failure; J18.9 Pneumonia, unspecified organism; J96.01 Acute respiratory failure with hypoxia; J44.1 Chronic obstructive pulmonary disease with (acute) exacerbation; J44.0 Chronic obstructive pulmonary disease with (acute) lower respiratory infection; N17.9 Acute kidney failure, unspecified; J45.909 Unspecified asthma, uncomplicated; M06.9 Rheumatoid arthritis, unspecified; E78.5 Hyperlipidemia, unspecified; M19.042 Primary osteoarthritis, left hand; M19.041 Primary osteoarthritis, right hand; M17.0 Bilateral primary osteoarthritis of knee; F32.9 Major depressive disorder, single episode, unspecified; F41.9 Anxiety disorder, unspecified; N18.3 Chronic kidney disease, stage 3 (moderate); I48.0 Paroxysmal atrial fibrillation; Z87.01 Personal history of pneumonia (recurrent); Z86.73 Personal history of transient ischemic attack (TIA), and cerebral infarction without residual deficits; Z79.899 Other long term (current) drug therapy; Z98.890 Other specified postprocedural states; Z87.891 Personal history of nicotine dependence; Z82.49 Family history of ischemic heart disease and other diseases of the circulatory system; Z79.01 Long term (current) use of anticoagulants
CPT/HCPCS: 36415; 71046; 80048; 80053; 82550; 82553; 83735; 83880; 84439; 84443; 84484; 85025; 85610; 85730; 93005; 94640; 94760; 96374; 96375; 99291

== ENCOUNTER 2017-09-29 12:05 | Emergency (ER) | payer MEDICARE, BC ==
[2017-09-29 12:12] VITALS: RESP 18
--- NOTE | 2017-09-29 12:26 | ED ---
General Adult HPI - General Chief complaint: Recheck/Abnormal Lab/Rx Stated complaint: KIDNEY EVAL Time Seen by Provider: 09/29/17 12:16 Source: patient Mode of arrival: ambulatory Limitations: no limitations - History of Present Illness Initial comments: Patient is a 71-year-old female who presents with a chief complaint of abnormal renal functions test. The patient states she was called by her primary care doctor and told to come to the emergency department for evaluation. Patient states that she wasn't told to come to the ED, she would've as she states that she feels well. Patient states that she has a history of pneumonia for which she was hospitalized 4 times, the last of which being 2 weeks ago. At that time the patient states that she had pneumonia and congestive heart failure. She does not have a previous history of congestive heart failure. Patient has been on a diuretic since discharge. Patient has no complaints otherwise. - Related Data Home Medications Medication Instructions Recorded Confirmed Sertraline HCl [Zoloft] 50 mg PO DAILY 04/30/17 09/29/17 Allopurinol [Zyloprim] 100 mg PO DAILY 09/09/17 09/29/17 Atorvastatin Calcium [Lipitor] 20 mg PO DAILY 09/09/17 09/29/17 Calcitriol [Rocaltrol] 0.5 mcg PO DAILY 09/09/17 09/29/17 Ipratropium-Albuterol Nebulize 3 ml INHALATION RT-QID 09/09/17 09/29/17 [Duoneb 0.5 mg-3 mg/3 ml Soln] Metolazone [Zaroxolyn] 2.5 mg PO MOWEFR 09/09/17 09/29/17 hydrALAZINE HCL [Apresoline] 25 mg PO TID 09/09/17 09/29/17 Albuterol Inhaler [Ventolin Hfa 1 - 2 puff INHALATION RT-Q6H PRN 09/29/17 Inhaler] Amiodarone [Cordarone] 100 mg PO DAILY 09/29/17 09/29/17 Apixaban [Eliquis] 2.5 mg PO BID 09/29/17 09/29/17 Previous Rx's Medication Instructions Recorded Potassium Chloride ER [K-Dur 20] 20 meq PO DAILY #30 tab.er.prt 06/03/17 Lisinopril [Zestril] 10 mg PO DAILY tab 07/16/17 amLODIPine [Norvasc] 10 mg PO DAILY tab 07/16/17 Metoprolol Tartrate [Lopressor] 50 mg PO BID #60 tab 07/30/17 Allergies Allergy/AdvReac Type Severity Reaction Status Date / Time No Known Allergies Allergy Verified 09/29/17 12:28 Review of Systems ROS Statement: Those systems with pertinent positive or pertinent negative responses have been documented in the HPI. ROS Other: All systems not noted in ROS Statement are negative. Past Medical History Past Medical History: Asthma, CVA/TIA, Hypertension, Osteoarthritis (OA), Pneumonia Additional Past Medical History / Comment(s): cva 2006 no residual problems, irreg heart rate,SOB History of Any Multi-Drug Resistant Organisms: None Reported Past Surgical History: Tonsillectomy Additional Past Surgical History / Comment(s): ORIF rt ankle-[address], IUD removal, lumbar steroid injections, DENTAL IMPLANTS, TINA, CARDIOVERSION Past Anesthesia/Blood Transfusion Reactions: No Reported Reaction Additional Past Anesthesia/Blood Transfusion Reaction / Comment(s): past blood transfusions-no reaction Past Psychological History: No Psychological Hx Reported Smoking Status: Former smoker Past Alcohol Use History: None Reported Past Drug Use History: None Reported - Past Family History Mother Additional Family Medical History / Comment(s): Mother in her 80s from abdominal aortic aneurysm. Father Family Medical History: Myocardial Infarction ([place]) Additional Family Medical History / Comment(s): Father at age 52 from acute [place]. Patient has 1 brother that is healthy. Patient does not have any children. General Exam Limitations: no limitations General appearance: alert, in no apparent distress Head exam: Present: atraumatic, normocephalic Eye exam: Present: normal appearance ENT exam: Present: normal exam, mucous membranes moist Neck exam: Present: normal inspection Respiratory exam: Present: normal lung sounds bilaterally. Absent: respiratory distress, wheezes Cardiovascular Exam: Present: regular rate, normal rhythm GI/Abdominal exam: Present: soft. Absent: distended, tenderness Rectal exam: Present: deferred Extremities exam: Present: normal inspection Back exam: Present: normal inspection Neurological exam: Present: alert, oriented X3 Psychiatric exam: Present: normal affect, normal mood Skin exam: Present: warm, dry, intact Course Vital Signs 09/29/17 12:10 Temperature 97.9 F Pulse Rate 88 Respiratory 18 Rate Blood Pressure 134/64 O2 Sat by Pulse 98 Oximetry Medical Decision Making - Medical Decision Making Patient presents with a chief complaint of abnormal labs. On initial evaluation , vital signs are stable, patient is no acute distress. Patient states that she otherwise feels well and would not occur to the emergency department if not directed to. Patient will be evaluated with basic labs and urinalysis. Review of patient's medications shows that she is on several antihypertensives, and metolazone since last discharge. EKG performed at 1250 shows sinus bradycardia with a rate of 51 bpm. EKG is otherwise unremarkable. Compared to previous study performed on 09/09/2017, EKG waveforms are similar. 3:11 PM Lab evaluation of this patient is unremarkable. Creatinine today is 2.65 which when compared to several previous values is baseline for the patient. electrolytes are within normal limits. At this time, patient is stable for discharge home and follow up with primary care in 1-2 days. patient instructed to return to the ED if her she develops new or concerning symptoms. - Lab Data Result diagrams: 09/29/17 12:45 09/29/17 12:45 Lab Results 09/29/17 09/29/17 Range/Units 12:45 12:45 WBC 7.9 (3.8-10.6) k/uL RBC 3.61 L (3.80-5.40) m/uL Hgb 9.6 L (11.4-16.0) gm/dL Hct 30.3 L (34.0-46.0) % MCV 84.0 (80.0-100.0) fL MCH 26.6 (25.0-35.0) pg MCHC 31.7 (31.0-37.0) g/dL RDW 18.6 H (11.5-15.5) % Plt Count 301 (150-450) k/uL Neutrophils % 74 % Lymphocytes % 13 % Monocytes % 8 % Eosinophils % 3 % Basophils % 0 % Neutrophils # 5.9 (1.3-7.7) k/uL Lymphocytes # 1.0 (1.0-4.8) k/uL Monocytes # 0.6 (0-1.0) k/uL Eosinophils # 0.2 (0-0.7) k/uL Basophils # 0.0 (0-0.2) k/uL Hypochromasia Moderate Anisocytosis Slight Sodium 136 L (137-145) mmol/L Potassium 3.8 (3.5-5.1) mmol/L Chloride 93 L (98-107) mmol/L Carbon Dioxide 29 (22-30) mmol/L Anion Gap 14 mmol/L BUN 64 H (7-17) mg/dL Creatinine 2.65 H (0.52-1.04) mg/dL Est GFR (CKD-EPI)AfAm 20 (>60 ml/min/1.73 sqM) Est GFR (CKD-EPI)NonAf 18 (>60 ml/min/1.73 sqM) Glucose 151 H (74-99) mg/dL Calcium 9.3 (8.4-10.2) mg/dL Disposition Clinical Impression: Observation and evaluation for suspected conditions not found Disposition: HOME SELF-CARE Condition: Good Is patient prescribed a controlled substance at d/c from ED?: No Referrals: Soren Desai MD [Primary Care Provider] - 1-2 days
[2017-09-29 13:09] LABS: Anisocytosis Slight; Basophils % (A) 0 %; Eosinophils # (A) 0.2 k/uL (0-0.7); Eosinophils % (A) 3 %; HCT 30.3 % (34.0-46.0); HGB 9.6 gm/dL (11.4-16.0); Hypochromasia Moderate; Lymphocytes % (A) 13 %; MCH 26.6 pg (25.0-35.0); MCHC 31.7 g/dL (31.0-37.0); Mean Platelet Volume 7.1; Monocytes # (A) 0.6 k/uL (0-1.0); Monocytes % (A) 8 %; Neutrophils # (A) 5.9 k/uL (1.3-7.7); Neutrophils % (A) 74 %; Platelet Count 301 k/uL (150-450); RBC 3.61 m/uL (3.80-5.40); RDW 18.6 % (11.5-15.5); WBC 7.9 k/uL (3.8-10.6)
[2017-09-29 13:22] LABS: Calcium 9.3 mg/dL (8.4-10.2); Potassium 3.8 mmol/L (3.5-5.1)
[2017-09-29 15:23] VITALS: BP 141/71; PULSE 52; TEMP 97.6
== END 2017-09-29 15:23 | disposition home or self-care (01) ==
LOC: EC 12:05
DX: R94.4 Abnormal results of kidney function studies (principal); R00.1 Bradycardia, unspecified; J45.909 Unspecified asthma, uncomplicated; I10 Essential (primary) hypertension; M19.90 Unspecified osteoarthritis, unspecified site; Z86.73 Personal history of transient ischemic attack (TIA), and cerebral infarction without residual deficits; Z79.01 Long term (current) use of anticoagulants; Z79.899 Other long term (current) drug therapy; Z87.891 Personal history of nicotine dependence
CPT/HCPCS: 36415; 80048; 85025; 93005; 99283

== ENCOUNTER → 2017-11-21 | Outpatient (CLI) | payer MEDICARE, BC ==
--- NOTE | 2017-11-22 17:34 | CT ---
EXAMINATION TYPE: CT lumbar spine wo con DATE OF EXAM: 11/21/2017 10:56 AM COMPARISON: None HISTORY: Spondylosis with myelopathy CT DLP: 167 mGycm Automated exposure control for dose reduction was used. TECHNIQUE: Unenhanced CT of the lumbar spine was performed. Bone and soft tissue window settings are submitted as well as coronal and sagittal reconstructions. FINDINGS: The lumbar spine vertebral bodies maintain normal vertebral body heights and alignment. How ever there are severe multilevel degenerative changes displayed as intervertebral disc space narrowin g, endplate sclerosis, anterior osteophytes and facet arthropathy most pronounced from L3 through S1. There is extensive atherosclerosis of the abdominal aorta and its branches with multifocal ectasia wi th infrarenal abdominal aorta measuring up to 2.7 cm in anterior posterior dimension. There is partia l visualization of left renal atrophy and extensive right renal arterial calcifications. There is is an S-shaped scoliotic curvature of the lumbar spine. Additionally within the left psoas m uscle there is an elliptical approximately 3.5 x 3.0 x 5.3 cm soft tissue mass that is slightly hyper dense in comparison to the right psoas. This is measured on series 3 image 48 and series 6 image 18 a nd requires further evaluation as this could represent an intramuscular mass/neoplasm or intramuscula r hematoma. Left basilar opacity and trace left pleural effusion are partially seen within the left lung base. L1-L2: There is a broad-based disc bulge with facet arthropathy resulting in mild bilateral neural fo raminal narrowing and mild spinal canal stenosis. L2-L3: There is a left eccentric broad-based disc bulge resulting in moderate bilateral neural forami nal narrowing and moderate spinal canal stenosis in combination with ligamentum flavum buckling and f acet arthropathy. L3-L4: There is near complete loss of the intervertebral disc space with lateral and anterior bulging of the disc. Small posterior disc osteophyte complexes are also seen creating mild to moderate bilat eral neural foraminal narrowing. Facet arthropathy contributes to mild spinal canal stenosis. L4-L5: There is a broad-based disc bulge and central disc herniation with facet arthropathy, posterio r osteophytes, and ligamentum flavum buckling creating moderate bilateral neural foraminal narrowing and moderate spinal canal stenosis. There is caudal extension of the disc fragment at least 4 mm. L5-S1: There is near complete loss of the intervertebral disc space with a residual broad-based disc bulge and facet arthropathy in addition to posterior osteophytes contributing to mild spinal canal st enosis and moderate bilateral neural foraminal narrowing. Degree of neural foraminal narrowing and spinal canal stenosis would be better assessed with MRI. IMPRESSION: 1. Left psoas intramuscular hematoma versus intramuscular neoplasm. Further characterization with CT abdomen pelvis w con is recommended to evaluate for enhancement. 2. Severe degenerative disc disease of the lower lumbar spine resulting in mild spinal canal stenosis at L3-L4 and L5-S1 and moderate spinal canal stenosis at L2-L3 and L4-L5 along with variable degrees of neural foraminal narrowing as described above. 3. Left basilar airspace disease and trace pleural effusion that could represent atelectasis or pneum onia in the appropriate clinical setting. 4. Small central disc herniation/extrusion at L4-L5 contributing to the above mentioned spinal canal stenosis. 5. Extensive atherosclerosis of the abdominal aorta and its branches likely contributing to the left renal atrophy. Multifocal ectasia is seen without aneurysmal dilatation in the visualized portions.
== END | disposition home or self-care (01) ==
LOC: RADCTMAIN 10:29
PROVIDERS: ATTEND Physical Medicine & Rehabilitation
DX: M48.061 Spinal stenosis, lumbar region without neurogenic claudication (principal); M48.07 Spinal stenosis, lumbosacral region; M51.36 Other intervertebral disc degeneration, lumbar region; M99.73 Connective tissue and disc stenosis of intervertebral foramina of lumbar region; M51.26 Other intervertebral disc displacement, lumbar region
CPT/HCPCS: 72131

== ENCOUNTER → 2017-11-30 | Outpatient (CLI) | payer MEDICARE, BC ==
--- NOTE | 2017-11-30 12:48 | CT ---
EXAMINATION TYPE: CT abdomen pelvis wo con DATE OF EXAM: 11/30/2017 COMPARISON: Lumbar spine dated 11/21/2017 HISTORY: Patient had prior abnormal Lumbar spine CT. CT DLP: 242.5 mGycm Automated exposure control for dose reduction was used. TECHNIQUE: Helical acquisition of images was performed from the lung bases through the pelvis. FINDINGS: LEFT PSOAS: As seen on the prior CT lumbar spine dated 11/21/2017 there is redemonstration of a hyperde nse left psoas intramuscular elliptical at least 3.4 x 3.2 x 5.0 cm. There is no significant change i n comparison to the prior of 11/21/2017 and slight changes in measurement are likely due to differences in technique. Lesion measuring LUNG BASES: There is redemonstration of a basilar airspace disease with groundglass component and ret icular nodular component as partially visualized on the prior CT lumbar spine dated 11/21/2017. Again t his could represent pneumonia, atelectasis with the possibility of underlying pulmonary nodule not ye t excluded given the somewhat nodular posterior component. There is a small hiatal hernia present. LIVER/GB: Unremarkable unenhanced morphology. No cholelithiasis. PANCREAS: Unremarkable unenhanced morphology. The pancreatic duct is not clearly identified although does not appear distinctly enlarged. SPLEEN: Spleen is small and contains a solitary calcified benign granuloma. ADRENALS: No significant abnormality is seen. KIDNEYS: Left kidney is severely atrophic and extensive renal arterial calcifications are seen. FREE AIR: No free air is visualized REPRODUCTIVE ORGANS: No significant abnormality is seen URINARY BLADDER: Incompletely distended ADENOPATHY: Limited without the utilization of intravenous contrast, however no greater than 1 cm sh ort axis lymph nodes are identified within the abdomen or pelvis OSSEOUS STRUCTURES: Again there is a scoliosis of the lumbar spine, dextroconvex of the right. Multi level degenerative changes are better described in the CT lumbar spine dated 11/21/2017. BOWEL: Multiple colonic diverticula are seen without paracolonic fat stranding. No evidence of dilat ed large or small bowel. No evidence of bowel obstruction. Mild amount retained colonic stool is pres ent. OTHER: There is extensive atherosclerosis of the abdominal aorta and its branches. At the level the r enal arteries the abdominal aorta is upper limits normal in size in transverse dimension measuring 3. 0 cm. Left iliac focal aneurysm measures 1.9 cm within the left common iliac artery proximally. IMPRESSION: 1. NO SIGNIFICANT INTERVAL CHANGE OF THE PREVIOUSLY SEEN ELLIPTICAL LEFT PSOAS LESION ON THE PRIOR CT LUMBAR SPINE DATED 11/21/2017. FOR FURTHER CHARACTERIZATION CONTRAST WOULD NEED TO BE UTILIZED. ALTERN ATIVELY MRI MAY AID IN DIAGNOSTIC CHARACTERIZATION IF THERE IS CLINICAL CONCERN FOR ABSCESS (UNLIKELY GIVEN LACK OF INFLAMMATORY FAT STRANDING). THIS COULD ALTERNATIVELY REPRESENT NEOPLASM OR INTRAMUSCU LAR HEMATOMA. THIS WOULD LIKELY BE AMENABLE TO PERCUTANEOUS BIOPSY. 2. REDEMONSTRATION OF LEFT BASILAR AIRSPACE DISEASE THAT MAY REPRESENT PNEUMONIA OR INFLAMMATORY PROC ESS. FOLLOW-UP TO RESOLUTION IS RECOMMENDED GIVEN THE UNDERLYING NODULARITY TO EXCLUDE SMALL PULMONAR Y NODULE.
== END | disposition home or self-care (01) ==
LOC: RADCTMAIN 09:58
PROVIDERS: ATTEND Physical Medicine & Rehabilitation
DX: M62.89 Other specified disorders of muscle (principal)
CPT/HCPCS: 36415; 74176; 82565; 84520

== ENCOUNTER 2018-01-21 03:54 | Inpatient (IN) | payer MEDICARE, BC ==
[2018-01-21] MEDS ORDERED: predniSONE 20 MG TAB PO STA (04:25)
[2018-01-21] MEDS ORDERED: IPRATROPIUM-ALBUTEROL 3 ML NEB INHALATION STA (04:25)
--- NOTE | 2018-01-21 04:29 | ED ---
SOB HPI - General Chief Complaint: Shortness of Breath Stated Complaint: Difficulty Breathing Time Seen by Provider: 01/21/18 04:12 Source: patient Mode of arrival: EMS Limitations: no limitations - History of Present Illness Initial Comments: This patient is 72-year-old woman with history of COPD. She presents to be evaluate for shortness of breath that she feels is similar to previous exacerbation. She states the symptoms have been getting worse over the past couple of days or so. She describes having an increase in wheezing, shortness of breath and nonproductive cough. Patient denies fever or chills. No change in urination or bowel movements. No swelling or pain in the legs. MD Complaint: shortness of breath, cough Onset/Timin -: days(s) Severity: moderate Consistency: constant Improves With: oxygen Worsens With: nothing Known History Of: COPD Treatments Prior to Arrival: bronchodilator - Related Data Home Medications Medication Instructions Recorded Confirmed Sertraline HCl [Zoloft] 50 mg PO DAILY 04/30/17 09/29/17 Allopurinol [Zyloprim] 100 mg PO DAILY 09/09/17 09/29/17 Atorvastatin Calcium [Lipitor] 20 mg PO DAILY 09/09/17 09/29/17 Calcitriol [Rocaltrol] 0.5 mcg PO DAILY 09/09/17 09/29/17 Ipratropium-Albuterol Nebulize 3 ml INHALATION RT-QID 09/09/17 09/29/17 [Duoneb 0.5 mg-3 mg/3 ml Soln] Metolazone [Zaroxolyn] 2.5 mg PO MOWEFR 09/09/17 09/29/17 hydrALAZINE HCL [Apresoline] 25 mg PO TID 09/09/17 09/29/17 Albuterol Inhaler [Ventolin Hfa 1 - 2 puff INHALATION RT-Q6H PRN 09/29/17 Inhaler] Amiodarone [Cordarone] 100 mg PO DAILY 09/29/17 09/29/17 Apixaban [Eliquis] 2.5 mg PO BID 09/29/17 09/29/17 Previous Rx's Medication Instructions Recorded Potassium Chloride ER [K-Dur 20] 20 meq PO DAILY #30 tab.er.prt 01/17/18 Lisinopril [Zestril] 10 mg PO DAILY tab 07/16/17 amLODIPine [Norvasc] 10 mg PO DAILY tab 07/16/17 Metoprolol Tartrate [Lopressor] 50 mg PO BID #60 tab 07/30/17 Allergies Allergy/AdvReac Type Severity Reaction Status Date / Time No Known Allergies Allergy Verified 09/29/17 12:28 Review of Systems ROS Statement: Those systems with pertinent positive or pertinent negative responses have been documented in the HPI. ROS Other: All systems not noted in ROS Statement are negative. Constitutional: Denies: fever, chills Respiratory: Reports: cough, dyspnea, wheezes. Denies: hemoptysis Cardiovascular: Denies: chest pain, palpitations, edema, syncope Gastrointestinal: Denies: abdominal pain, nausea, vomiting Genitourinary: Denies: dysuria, hematuria Musculoskeletal: Denies: back pain Skin: Denies: rash Neurological: Denies: headache, weakness Past Medical History Past Medical History: Asthma, CVA/TIA, Hypertension, Osteoarthritis (OA), Pneumonia Additional Past Medical History / Comment(s): cva 2006 no residual problems, irreg heart rate,SOB History of Any Multi-Drug Resistant Organisms: None Reported Past Surgical History: Tonsillectomy Additional Past Surgical History / Comment(s): ORIF rt ankle-[address], IUD removal, lumbar steroid injections, DENTAL IMPLANTS, TINA, CARDIOVERSION Past Anesthesia/Blood Transfusion Reactions: No Reported Reaction Additional Past Anesthesia/Blood Transfusion Reaction / Comment(s): past blood transfusions-no reaction Past Psychological History: No Psychological Hx Reported Smoking Status: Former smoker Past Alcohol Use History: None Reported Past Drug Use History: None Reported - Past Family History Mother Additional Family Medical History / Comment(s): Mother in her 80s from abdominal aortic aneurysm. Father Family Medical History: Myocardial Infarction ([place]) Additional Family Medical History / Comment(s): Father at age 52 from acute [place]. Patient has 1 brother that is healthy. Patient does not have any children. General Exam Limitations: no limitations General appearance: alert, in distress (Mild respiratory distress) Head exam: Present: atraumatic, normocephalic Eye exam: Present: normal appearance. Absent: scleral icterus, conjunctival injection Respiratory exam: Present: respiratory distress (Mild respiratory distress), wheezes, prolonged expiratory. Absent: rales, rhonchi, stridor, chest wall tenderness, accessory muscle use, decreased breath sounds Cardiovascular Exam: Present: regular rate, normal rhythm, normal heart sounds. Absent: systolic murmur, diastolic murmur, rubs, gallop GI/Abdominal exam: Present: soft. Absent: distended, tenderness, guarding, rebound, mass Extremities exam: Present: normal inspection, normal capillary refill. Absent: pedal edema, calf tenderness Back exam: Present: normal inspection. Absent: CVA tenderness (R), CVA tenderness (L) Neurological exam: Present: alert Skin exam: Present: warm, dry, intact, normal color. Absent: rash Course Vital Signs 01/21/18 01/21/18 01/21/18 03:58 04:44 04:50 Temperature 98.5 F Pulse Rate 85 77 78 Respiratory 21 18 18 Rate Blood Pressure 175/78 O2 Sat by Pulse 94 L Oximetry 01/21/18 06:42 Temperature Pulse Rate 77 Respiratory 17 Rate Blood Pressure 183/82 O2 Sat by Pulse 95 Oximetry Medical Decision Making - Lab Data Result diagrams: 01/21/18 04:01 01/21/18 04:01 Lab Results 01/21/18 01/21/18 01/21/18 Range/Units 04:01 04:01 04:01 WBC 8.3 (3.8-10.6) k/uL RBC 2.82 L (3.80-5.40) m/uL Hgb 8.5 L (11.4-16.0) gm/dL Hct 27.7 L (34.0-46.0) % MCV 98.1 (80.0-100.0) fL MCH 30.1 (25.0-35.0) pg MCHC 30.7 L (31.0-37.0) g/dL RDW 15.5 (11.5-15.5) % Plt Count 406 (150-450) k/uL Neutrophils % 85 % Lymphocytes % 4 % Monocytes % 6 % Eosinophils % 1 % Basophils % 0 % Neutrophils # 7.0 (1.3-7.7) k/uL Lymphocytes # 0.3 L (1.0-4.8) k/uL Monocytes # 0.5 (0-1.0) k/uL Eosinophils # 0.1 (0-0.7) k/uL Basophils # 0.0 (0-0.2) k/uL Hypochromasia Slight PT (9.0-12.0) sec INR (<1.2) APTT (22.0-30.0) sec D-Dimer (<0.60) mg/L FEU Sodium 130 L (137-145) mmol/L Potassium 3.8 (3.5-5.1) mmol/L Chloride 94 L (98-107) mmol/L Carbon Dioxide 24 (22-30) mmol/L Anion Gap 12 mmol/L BUN 34 H (7-17) mg/dL Creatinine 1.50 H (0.52-1.04) mg/dL Est GFR (CKD-EPI)AfAm 40 (>60 ml/min/1.73 sqM) Est GFR (CKD-EPI)NonAf 35 (>60 ml/min/1.73 sqM) Glucose 102 H (74-99) mg/dL Calcium 9.1 (8.4-10.2) mg/dL Total Bilirubin 0.6 (0.2-1.3) mg/dL AST 24 (14-36) U/L ALT 33 (9-52) U/L Alkaline Phosphatase 60 (38-126) U/L Total Creatine Kinase 26 L (30-135) U/L CK-MB (CK-2) 0.7 (0.0-2.4) ng/mL CK-MB (CK-2) Rel Index 2.7 Troponin I 0.014 (0.000-0.034) ng/mL NT-Pro-B Natriuret Pep pg/mL Total Protein 6.6 (6.3-8.2) g/dL Albumin 3.7 (3.5-5.0) g/dL 01/21/18 01/21/18 Range/Units 04:01 04:01 WBC (3.8-10.6) k/uL RBC (3.80-5.40) m/uL Hgb (11.4-16.0) gm/dL Hct (34.0-46.0) % MCV (80.0-100.0) fL MCH (25.0-35.0) pg MCHC (31.0-37.0) g/dL RDW (11.5-15.5) % Plt Count (150-450) k/uL Neutrophils % % Lymphocytes % % Monocytes % % Eosinophils % % Basophils % % Neutrophils # (1.3-7.7) k/uL Lymphocytes # (1.0-4.8) k/uL Monocytes # (0-1.0) k/uL Eosinophils # (0-0.7) k/uL Basophils # (0-0.2) k/uL Hypochromasia PT 12.1 H (9.0-12.0) sec INR 1.3 H (<1.2) APTT 38.5 H (22.0-30.0) sec D-Dimer 0.49 (<0.60) mg/L FEU Sodium (137-145) mmol/L Potassium (3.5-5.1) mmol/L Chloride (98-107) mmol/L Carbon Dioxide (22-30) mmol/L Anion Gap mmol/L BUN (7-17) mg/dL Creatinine (0.52-1.04) mg/dL Est GFR (CKD-EPI)AfAm (>60 ml/min/1.73 sqM) Est GFR (CKD-EPI)NonAf (>60 ml/min/1.73 sqM) Glucose (74-99) mg/dL Calcium (8.4-10.2) mg/dL Total Bilirubin (0.2-1.3) mg/dL AST (14-36) U/L ALT (9-52) U/L Alkaline Phosphatase (38-126) U/L Total Creatine Kinase (30-135) U/L CK-MB (CK-2) (0.0-2.4) ng/mL CK-MB (CK-2) Rel Index Troponin I (0.000-0.034) ng/mL NT-Pro-B Natriuret Pep 02935 pg/mL Total Protein (6.3-8.2) g/dL Albumin (3.5-5.0) g/dL - EKG Data -: EKG Interpreted by Me EKG shows normal: sinus rhythm, intervals (Normal), QRS complexes (LVH), ST-T waves (Lateral T-wave inversions.) Rate: normal (Rate 76 bpm) Interpretation: LVH Disposition Clinical Impression: CHF (congestive heart failure), Pneumonia Disposition: ADMITTED IP TO THIS HOSP Condition: Fair Referrals: Giselle,Soren, MD [Primary Care Provider] - 1-2 days
[2018-01-21 04:50] LABS: Basophils % (A) 0 %; Eosinophils # (A) 0.1 k/uL (0-0.7); Eosinophils % (A) 1 %; HCT 27.7 % (34.0-46.0); HGB 8.5 gm/dL (11.4-16.0); Hypochromasia Slight; Lymphocytes # (A) 0.3 k/uL (1.0-4.8); Lymphocytes % (A) 4 %; MCH 30.1 pg (25.0-35.0); MCHC 30.7 g/dL (31.0-37.0); MCV 98.1 fL (80.0-100.0); Mean Platelet Volume 6.5; Monocytes # (A) 0.5 k/uL (0-1.0); Monocytes % (A) 6 %; Neutrophils % (A) 85 %; Platelet Count 406 k/uL (150-450); RBC 2.82 m/uL (3.80-5.40); RDW 15.5 % (11.5-15.5); WBC 8.3 k/uL (3.8-10.6)
[2018-01-21 05:01] LABS: Albumin 3.7 g/dL (3.5-5.0); Calcium 9.1 mg/dL (8.4-10.2); Potassium 3.8 mmol/L (3.5-5.1); Total Bilirubin 0.6 mg/dL (0.2-1.3); Total Protein 6.6 g/dL (6.3-8.2)
[2018-01-21 05:06] LABS: D-Dimer 0.49 mg/L FEU (<0.60); INR 1.3 (<1.2); Prothrombin Time 12.1 sec (9.0-12.0)
[2018-01-21 05:07] LABS: Partial Thromboplastin Time 38.5 sec (22.0-30.0)
[2018-01-21] MEDS ORDERED: cefTRIAXone IN SWFI 1,000 MG/10 ML SYRINGE IVP STA ×2 (05:23→06:31)
[2018-01-21 05:46] LABS: Creatine Kinase MB 0.7 ng/mL (0.0-2.4); Troponin I 0.014 ng/mL (0.000-0.034)
--- NOTE | 2018-01-21 06:07 | XR ---
EXAM: XR Chest, 2 Views. CLINICAL HISTORY: Reason: difficulty breathing TECHNIQUE: Frontal and lateral views of the chest. COMPARISON: 09/24/17 FINDINGS: Lungs: There is airspace consolidation within the right lower lobe, suggestive of pneumonia. Increased interstitial markings likely due to pulmonary vascular congestion and mild interstitial edema. Rounded well- circumscribed opacity within the right mid lung likely represents fluid tracking within the right major fissure. Pleural spaces: Small bilateral pleural effusions. No pneumothorax. Heart: Heart size top normal.. Mediastinum: No mediastinal widening or shift. Bones: No acute fracture. IMPRESSION: Right lower lobe pneumonia. Pulmonary vascular congestion and mild interstitial edema. Small bilateral pleural effusions. Please correlate for symptoms of volume overload or congestive heart failure. Well-circumscribed, ovoid right midlung opacity likely fluid within the right major fissure. Consider further evaluation with CT chest for better characterization.
[2018-01-21] MEDS ORDERED: PNEUMONIA PROTOCOL UTILIZED 1 EACH MISC PO PRN (06:31)
[2018-01-21] MEDS: IPRATROPIUM-ALBUTEROL 3 ML NEB INHALATION SCH ×4 (07:34→19:11)
[2018-01-21] MEDS ORDERED: ALBUTEROL NEBULIZED 2.5 MG/3 ML INHALATION SCH (08:00)
[2018-01-21] MEDS: LISINOPRIL 10 MG TAB PO SCH (08:05)
[2018-01-21] MEDS: POTASSIUM CHLORIDE ER 20 MEQ TAB.ER PO SCH (08:05)
[2018-01-21] MEDS: AMIODARONE 100 MG TAB PO SCH (08:05)
[2018-01-21] MEDS: METOPROLOL TARTRATE 50 MG TAB PO SCH ×2 (08:05→21:15)
[2018-01-21] MEDS: hydrALAZINE HCL 25 MG TAB PO SCH ×3 (08:05→21:41)
[2018-01-21] MEDS: APIXABAN 2.5 MG TABLET PO SCH ×2 (08:06→21:15)
[2018-01-21] MEDS: ATORVASTATIN 20 MG TAB PO SCH (08:06)
[2018-01-21] MEDS: SERTRALINE 50 MG TAB PO SCH (08:06)
[2018-01-21] MEDS: amLODIPine 10 MG TAB PO SCH (08:06)
[2018-01-21] MEDS ORDERED: FUROSEMIDE 10 MG/ML 4 ML VIAL IV STA (09:58)
[2018-01-21] MEDS: ALLOPURINOL 100 MG TAB PO SCH (13:23)
[2018-01-21] MEDS: CALCITRIOL 0.25 MCG CAP PO SCH (13:23)
--- NOTE | 2018-01-21 16:54 | P.CNPUL ---
History of Present Illness Consult date: 01/21/18 Requesting physician: Steve Hudson Reason for consult: dyspnea Chief complaint: Dyspnea, chest congestion History of present illness: This is a 72-year-old white female patient with past medical history of COPD, with FEV1 of 42%, chronic congestive heart failure with diastolic dysfunction, pseudotumor of the right lung, essential hypertension, rheumatoid arthritis, osteoarthritis, previous CVA/TIA, who presented to the emergency department today on 01/21/2018 at 4:00 in the morning with complaints of increasing shortness of breath. She states her shortness of breath has gradually become worse, over the past couple of days or so. She denies having any chest pain, no increase in wheezing, no phlegm production. Patient does have a congested cough. She denies any fever or chills, denies any swelling in bilateral extremities. Patient is on nebulizer treatments at home, in addition to her rescue inhaler. Patient has a history of atrial fibrillation, status post successful cardioversion in July 2017. She is on chronic anticoagulation with Eliquis. She remains in sinus rhythm on the monitor. EKG showed normal sinus rhythm with left ventricular hypertrophy with repolarization abnormality, and could not rule out septal infarct of undetermined age. Chest x-ray was completed, and showed airspace consolidation within the right lower lobe, small bilateral pleural effusions, increased interstitial markings and mild interstitial edema. There is a rounded well-circumscribed opacity within the right midlung likely representing fluid tracking within the right major fissure. After reviewing previous chest x-rays from 09/24/2017, and 09/09/2017 , the pseudotumor in the right midlung area seems to be more prominent during exacerbations of CHF. Labs did not show any leukocytosis, WBC is 8.3, hemoglobin is 8.5, INR is 1.3, d-dimer was negative for 0.49, sodium is 1:30, potassium is 3.8, chloride is 94, B1 is 34, creatinine is 1.5. Cardiac enzymes and troponins were negative 1, proBNP is significantly elevated at 12,200. Patient has positive distention of jugular veins bilaterally, no significant peripheral edema, congestive cough. In addition patient has been orthopneic. Patient was started on empiric antibiotics in the form of Zithromax and Rocephin , metolazone 2.5 mg on Thursday and Thursday. She received 1 dose of IV Lasix. We are asked to see the patient in consultation for shortness of breath. Review of Systems All systems: negative Constitutional: Denies chills, Denies fever Eyes: denies blurred vision, denies pain Ears, nose, mouth and throat: Denies headache, Denies sore throat Cardiovascular: Denies chest pain, Denies shortness of breath Respiratory: Reports congestion, Reports dyspnea, Denies cough Gastrointestinal: Denies abdominal pain, Denies diarrhea, Denies nausea, Denies vomiting Genitourinary: Denies dysuria, Denies hematuria Musculoskeletal: Denies myalgias Integumentary: Denies pruritus, Denies rash Neurological: Denies numbness, Denies weakness Psychiatric: Denies anxiety, Denies depression Endocrine: Denies fatigue, Denies weight change Past Medical History Past Medical History: Asthma, CVA/TIA, Hypertension, Osteoarthritis (OA), Pneumonia Additional Past Medical History / Comment(s): cva 2005 no residual problems, irreg heart rate,SOB, chf History of Any Multi-Drug Resistant Organisms: None Reported Past Surgical History: Tonsillectomy Additional Past Surgical History / Comment(s): ORIF rt ankle-[address], IUD removal, lumbar steroid injections, DENTAL IMPLANTS, CARDIOVERSION Past Anesthesia/Blood Transfusion Reactions: No Reported Reaction Additional Past Anesthesia/Blood Transfusion Reaction / Comment(s): past blood transfusions-no reaction Past Psychological History: No Psychological Hx Reported Smoking Status: Former smoker Past Alcohol Use History: None Reported Additional Past Alcohol Use History / Comment(s): Patient smoked one and half packs of cigarettes per day started in 1973 and quit 2014. Patient used to drink heavily-none now Past Drug Use History: None Reported - Past Family History Mother Additional Family Medical History / Comment(s): Mother in her 80s from abdominal aortic aneurysm. Father Family Medical History: Myocardial Infarction ([place]) Additional Family Medical History / Comment(s): Father at age 52 from acute [place]. Patient has 1 brother that is healthy. Medications and Allergies Home Medications Medication Instructions Recorded Confirmed Type Sertraline HCl [Zoloft] 50 mg PO DAILY 04/30/17 01/21/18 History Potassium Chloride ER [K-Dur 20] 20 meq PO DAILY #30 tab.er.prt 06/03/17 Rx amLODIPine [Norvasc] 10 mg PO DAILY tab 07/16/17 01/21/18 Rx Allopurinol [Zyloprim] 100 mg PO DAILY 09/09/17 01/21/18 History Atorvastatin Calcium [Lipitor] 20 mg PO DAILY 09/09/17 01/21/18 History Calcitriol [Rocaltrol] 0.5 mcg PO DAILY 09/09/17 01/21/18 History Ipratropium-Albuterol Nebulize 3 ml INHALATION RT-QID 09/09/17 01/21/18 History [Duoneb 0.5 mg-3 mg/3 ml Soln] Albuterol Inhaler [Ventolin Hfa 1 - 2 puff INHALATION RT-Q6H PRN 09/29/17 History Inhaler] Amiodarone [Cordarone] 100 mg PO DAILY 09/29/17 01/21/18 History Apixaban [Eliquis] 5 mg PO BID 09/29/17 01/21/18 History Metoprolol Tartrate 25 mg PO BID 01/21/18 01/21/18 History Zolpidem [Ambien] 5 mg PO HS PRN 01/21/18 01/21/18 History hydrALAZINE HCL 50 mg PO TID 01/21/18 01/21/18 History Allergies Allergy/AdvReac Type Severity Reaction Status Date / Time No Known Allergies Allergy Verified 01/21/18 08:20 Physical Exam Vitals: Vital Signs Temp Pulse Pulse Resp BP BP Pulse Ox 01/21/18 15:42 67 01/21/18 15:31 66 01/21/18 11:11 76 01/21/18 11:01 72 01/21/18 07:52 98.1 F 74 16 158/74 97 01/21/18 07:46 76 01/21/18 07:34 77 95 01/21/18 06:42 77 17 183/82 95 01/21/18 04:50 78 18 01/21/18 04:44 77 18 01/21/18 03:58 98.5 F 85 21 175/78 94 L Intake and Output 01/21/18 01/21/18 01/21/18 06:59 14:59 22:59 Intake Total 240 Balance 240 Intake: Oral 240 Other: Weight 61.235 kg 62.09 kg GENERAL EXAM: Alert, pleasant 72-year-old white female comfortable in no apparent distress. HEAD: Normocephalic/atraumatic. EYES: Normal reaction of pupils, equal size. Conjunctiva pink, sclera white. NOSE: Clear with pink turbinates. THROAT: No erythema or exudates. NECK: No masses, no thyroid enlargement, no adenopathy. Positive JVD bilaterally CHEST: No chest wall deformity. Symmetrical expansion. LUNGS: Diminished breath sounds, with bibasilar crackles CVS: Regular rate and rhythm, normal S1 and S2, no gallops, no murmurs, no rubs ABDOMEN: Soft, nontender. No hepatosplenomegaly, normal bowel sounds, no guarding or rigidity. EXTREMITIES: No clubbing, no edema, no cyanosis, 2+ pulses and upper and lower extremities. MUSCULOSKELETAL: Muscle strength and tone normal. SPINE: No scoliosis or deformity SKIN: No rashes CENTRAL NERVOUS SYSTEM: Alert and oriented -3. No focal deficits, tone is normal in all 4 extremities. PSYCHIATRIC: Alert and oriented -3. Appropriate affect. Intact judgment and insight. Results - Laboratory Findings CBC and BMP: 01/21/18 04:01 01/21/18 04:01 PT/INR, D-dimer PT 12.1 sec (9.0-12.0) H 01/21/18 04:01 INR 1.3 (<1.2) H 01/21/18 04:01 D-Dimer 0.49 mg/L FEU (<0.60) 01/21/18 04:01 Abnormal lab findings: Abnormal Labs 01/21/18 01/21/18 01/21/18 04:01 04:01 04:01 RBC 2.82 L Hgb 8.5 L Hct 27.7 L MCHC 30.7 L Lymphocytes # 0.3 L PT INR APTT Sodium 130 L Chloride 94 L BUN 34 H Creatinine 1.50 H Glucose 102 H Total Creatine Kinase 26 L 01/21/18 04:01 RBC Hgb Hct MCHC Lymphocytes # PT 12.1 H INR 1.3 H APTT 38.5 H Sodium Chloride BUN Creatinine Glucose Total Creatine Kinase - Diagnostic Findings Chest x-ray: report reviewed, image reviewed Additional studies: EKG reviewed Assessment and Plan Plan: Assessment: #1. Progressive dyspnea, orthopnea related to acute exacerbation of congestive heart failure, with diastolic dysfunction #2. Acute exacerbation of chronic obstructive pulmonary disease. #3. History of severe COPD, with underlying FEV1 of 43% of predicted. #4. Right midlung pseudotumor with fluid in the major fissure seen on the chest x-ray, compared to previous studies, and appears to be more prominent during times of CHF exacerbation #5. History of A. fib, status post successful cardioversion in July 2017 currently in sinus rhythm, on chronic anticoagulation with Eliquis #6. History of chronic kidney disease secondary to nephrosclerosis #7. Hypertension #8. Hyperlipidemia #9. Rheumatoid arthritis #10. History of nicotine dependence, currently in remission #11. Chronic anemia #12. Hyponatremia, serum sodium is 130 Plan: We'll start the patient on IV Lasix of 40 mg every 8 hours, continue metolazone. We'll repeat a chest x-ray in the morning, patient's presentation is related to acute exacerbation of congestive heart failure, and exacerbation of COPD. We'll continue empiric antibiotics, continue bronchodilators, will with the patient on IV methylprednisolone. We will repeat blood work in the morning, monitor daily weights, and acute I and O's. Monitor renal profile and electrolytes. We'll continue to follow I performed a history & physical examination of the patient and discussed their management with my nurse practitioner, Sasha Knutson. I reviewed the nurse practitioner's note and agree with the documented findings and plan of care. Lung sounds are positive diminished breath sounds, with bibasilar crackles, patient has a congested cough. The findings and the impression was discussed with the patient. I attest to the documentation by the nurse practitioner. Time with Patient: Greater than 30
[2018-01-21] MEDS: FUROSEMIDE 10 MG/ML 4 ML VIAL IV SCH ×2 (17:07→23:47)
[2018-01-21 17:27] LABS: Glucose,Whole Blood 167 mg/dL (75-99)
[2018-01-21] MEDS: INSULIN ASPART 100 UNIT/ML 1 ML 10 ML VIAL SQ SCH ×2 (17:47→21:41)
[2018-01-21] MEDS: methylPREDNISolone SOD SUCCI 125 MG/2 ML VIAL IV SCH ×2 (17:53→23:50)
[2018-01-21 21:21] LABS: Glucose,Whole Blood 210 mg/dL (75-99)
--- NOTE | 2018-01-21 23:00 | HP ---
HISTORY AND PHYSICAL DATE OF ADMISSION: 01/21/2018 PRESENTING COMPLAINT: Short of breath. HISTORY OF PRESENTING COMPLAINT: This is a 72-year-old patient of Dr. Desai whose chronic stable medical conditions include atrial fibrillation, chronic kidney disease, hypertensive heart disease, rheumatoid arthritis, hyperlipidemia, hypertension. The patient presents with a 1-day history of progressive shortness of breath, minimal cough. No fever. No chills. Some orthopnea. The patient presented to the ER. Some wheezing was also present. The patient empirically was put on antibiotics, nebulized bronchodilators and steroids. The patient feels a bit better. There was no edema. REVIEW OF SYSTEMS: CONSTITUTIONAL: Tired. HEENT: None. RESPIRATORY: As above. CARDIOVASCULAR: As above. GASTROINTESTINAL: None. GENITOURINARY: None. MUSCULOSKELETAL: Pain in the joints. DERMATOLOGICAL: None. HEMATOLOGIC: None. LYMPHATIC: None. PSYCHIATRY: None. NEUROLOGICAL: None. PAST MEDICAL HISTORY: Hypertension, osteoarthritis, stroke in 2005 with no residual, CHF, EF 55%-60%, rheumatoid arthritis, hypertension, hyperlipidemia, anxiety, depression. PAST SURGICAL HISTORY: Tonsillectomy, ORIF of the right ankle, [address], lumbar steroid injection, dental implants, cardioversion. SOCIAL HISTORY: The patient is , did in the past drink heavily, not anymore. The patient smoked for about 40 years, a pack and a half a day, stopped in 2013. FAMILY HISTORY: Mother of abdominal aortic aneurysm in her 80s and a history of myocardial infarction. HOME MEDICATIONS: 1. Hydralazine 50 mg t.i.d. 2. Norvasc 10 mg a day. 3. Ambien 5 mg q.h.s. p.r.n. 4. Zoloft 50 mg p.o. daily. 5. Potassium 20 mEq p.o. daily. 6. Metoprolol 25 mg b.i.d. 7. DuoNeb q.i.d. 8. Calcitriol 0.5 mcg p.o. daily. 9. Lipitor 20 mg p.o. daily. 10.Eliquis 5 mg p.o. b.i.d. 11.Cordarone 100 mg p.o. daily. 12.Allopurinol 100 mg p.o. daily. 13.Ventolin HFA 1 or 2 puffs every 6 hours p.r.n. ALLERGIES: None. EXAMINATION: VITAL SIGNS: On presentation, temperature 98.5 pulse 85, respirations of 21, blood pressure 135/78, pulse ox 94% on room air. GENERAL APPEARANCE: Average build, lying in bed, tired-appearing. EYES: Pupils equal. Conjunctivae normal. HEENT: External nose and ears normal. Oral cavity normal. NECK: JVD possibly raised. Mass not palpable. RESPIRATORY: Effort increased. LUNGS: Decreased breath sounds. Some wheezing, crackles. CARDIOVASCULAR: First and second sounds normal. Minimal edema. ABDOMEN: Soft, nontender. Liver and spleen not palpable. LYMPHATIC: No lymph node palpable in neck or axillae. PSYCHIATRY: Alert and oriented x3. Mood and affect were normal. NEUROLOGICAL: Pupils equal. Cranial nerves grossly intact. Power and sensation grossly intact. INVESTIGATIONS: White count 8.3, hemoglobin 8.5, platelets 406, INR 1.3. Potassium 3.8, BUN 34, creatinine 1.50. ProBNP 12,200. Chest x-ray film shows pulmonary vascular congestion and ovoid right midlung opacity likely felt to be pseudotumor from fluid in the fissure. EKG shows normal sinus rhythm, nonspecific. ASSESSMENT: 1. Acute chronic obstructive pulmonary disease exacerbation in an ex-smoker. 2. Does not appear to have any pneumonia. There is no infiltrate on the chest x-ray. Patient is afebrile, normal white count. No sputum production. Hence, will discontinue the antibiotics for now. 3. Acute on chronic congestive heart failure exacerbation from diastolic dysfunction, ejection fraction 50%-55% from hypertensive heart disease, present on admission. 4. Paroxysmal atrial fibrillation, currently in sinus rhythm, chronically on Eliquis. 5. Chronic kidney disease from hypertensive nephrosclerosis, stage 3. 6. Hypertensive heart disease. 7. Chronic rheumatoid arthritis. 8. Hyperlipidemia. 9. Essential hypertension. 10.Anxiety and depression, not otherwise specified. PLAN: The patient is on DuoNeb, IV steroids, IV Lasix. Electrolytes will be followed closely. Care was discussed with the patient. Pulmonary was consulted. Other home medications to continue. Antibiotics were discontinued. MMODL / IJN: [id number] /
[2018-01-21] MEDS: ZOLPIDEM 5 MG TAB PO PRN (23:49)
[2018-01-22 02:16] LABS: Hemoglobin A1C 5.5 % (4.0-6.0)
[2018-01-22] MEDS: methylPREDNISolone SOD SUCCI 125 MG/2 ML VIAL IV SCH ×3 (06:25→18:55)
[2018-01-22] MEDS ORDERED: AZITHROMYCIN 500 MG TAB PO SCH (07:00)
[2018-01-22 07:19] LABS: Glucose,Whole Blood 140 mg/dL (75-99)
[2018-01-22 08:22] LABS: Basophils % (A) 0 %; Eosinophils % (A) 0 %; HCT 26.8 % (34.0-46.0); HGB 8.4 gm/dL (11.4-16.0); Hypochromasia Slight; Lymphocytes # (A) 0.3 k/uL (1.0-4.8); Lymphocytes % (A) 3 %; MCH 30.8 pg (25.0-35.0); MCHC 31.5 g/dL (31.0-37.0); MCV 97.7 fL (80.0-100.0); Mean Platelet Volume 6.6; Monocytes # (A) 0.2 k/uL (0-1.0); Monocytes % (A) 3 %; Neutrophils # (A) 7.8 k/uL (1.3-7.7); Neutrophils % (A) 93 %; Platelet Count 451 k/uL (150-450); RBC 2.74 m/uL (3.80-5.40); RDW 15.6 % (11.5-15.5); WBC 8.4 k/uL (3.8-10.6)
[2018-01-22] MEDS: IPRATROPIUM-ALBUTEROL 3 ML NEB INHALATION SCH ×4 (08:28→19:24)
[2018-01-22] MEDS: SERTRALINE 50 MG TAB PO SCH (08:37)
[2018-01-22] MEDS: LISINOPRIL 10 MG TAB PO SCH (08:37)
[2018-01-22] MEDS: FUROSEMIDE 10 MG/ML 4 ML VIAL IV SCH (08:37)
[2018-01-22] MEDS: amLODIPine 10 MG TAB PO SCH (08:37)
[2018-01-22] MEDS: ATORVASTATIN 20 MG TAB PO SCH (08:37)
[2018-01-22] MEDS: AMIODARONE 100 MG TAB PO SCH (08:37)
[2018-01-22] MEDS: METOPROLOL TARTRATE 50 MG TAB PO SCH ×2 (08:37→21:29)
[2018-01-22] MEDS: APIXABAN 2.5 MG TABLET PO SCH ×2 (08:38→21:30)
[2018-01-22] MEDS: hydrALAZINE HCL 50 MG TAB PO SCH ×3 (08:38→21:30)
[2018-01-22] MEDS: ALLOPURINOL 100 MG TAB PO SCH (08:38)
[2018-01-22] MEDS: CALCITRIOL 0.25 MCG CAP PO SCH (08:38)
[2018-01-22] MEDS: POTASSIUM CHLORIDE ER 20 MEQ TAB.ER PO SCH (08:39)
[2018-01-22 08:40] LABS: Albumin 3.3 g/dL (3.5-5.0); Calcium 9.2 mg/dL (8.4-10.2); Potassium 4.6 mmol/L (3.5-5.1); Total Bilirubin 0.4 mg/dL (0.2-1.3); Total Protein 6.3 g/dL (6.3-8.2)
[2018-01-22] MEDS: INSULIN ASPART 100 UNIT/ML 1 ML 10 ML VIAL SQ SCH ×4 (08:52→21:40)
[2018-01-22] MEDS ORDERED: cefTRIAXone IN SWFI 1,000 MG/10 ML SYRINGE IVP SCH (09:00)
[2018-01-22] MEDS ORDERED: METOLAZONE 2.5 MG TAB PO SCH (09:00)
[2018-01-22 11:32] LABS: Glucose,Whole Blood 132 mg/dL (75-99)
--- NOTE | 2018-01-22 12:26 | XR ---
EXAMINATION TYPE: XR chest 2V DATE OF EXAM: 01/22/2018 COMPARISON: Chest x-ray from yesterday and older studies. HISTORY: Difficulty in breathing. TECHNIQUE: Frontal and lateral views of the chest are obtained. FINDINGS: There is chronic parenchymal change with persistent small left pleural effusion and associ ated left basilar atelectasis and/or infiltrate. There is interval resolution of round lateral right lung density felt to reflect loculated pleural fluid. Improved aeration right lung base is present. T here is background chronic parenchymal change. The cardiac silhouette size is stable and enlarged wit h apical fibrotic aorta. The osseous structures remain demineralized. Vascular calcification left a xillary region is redemonstrated IMPRESSION: Interval resolution of right lung ovoid lesion. Improved right basilar infiltrate and/or atelectasis. Improved but persistent small left pleural effusion and associated left basilar atelect asis and/or infiltrate.
--- NOTE | 2018-01-22 12:58 | P.PN ---
Subjective Progress Note Date: 01/22/18 Principal diagnosis: Acute exacerbation of congestive heart failure with diastolic dysfunction, COPD This is a 72-year-old white female patient with past medical history of COPD, with FEV1 of 42%, chronic congestive heart failure with diastolic dysfunction, pseudotumor of the right lung, essential hypertension, rheumatoid arthritis, osteoarthritis, previous CVA/TIA, who presented to the emergency department today on 01/21/2018 at 4:00 in the morning with complaints of increasing shortness of breath. She states her shortness of breath has gradually become worse, over the past couple of days or so. She denies having any chest pain, no increase in wheezing, no phlegm production. Patient does have a congested cough. She denies any fever or chills, denies any swelling in bilateral extremities. Patient is on nebulizer treatments at home, in addition to her rescue inhaler. Patient has a history of atrial fibrillation, status post successful cardioversion in July 2017. She is on chronic anticoagulation with Eliquis. She remains in sinus rhythm on the monitor. EKG showed normal sinus rhythm with left ventricular hypertrophy with repolarization abnormality, and could not rule out septal infarct of undetermined age. Chest x-ray was completed, and showed airspace consolidation within the right lower lobe, small bilateral pleural effusions, increased interstitial markings and mild interstitial edema. There is a rounded well-circumscribed opacity within the right midlung likely representing fluid tracking within the right major fissure. After reviewing previous chest x-rays from 09/24/2017, and 09/09/2017 , the pseudotumor in the right midlung area seems to be more prominent during exacerbations of CHF. Labs did not show any leukocytosis, WBC is 8.3, hemoglobin is 8.5, INR is 1.3, d-dimer was negative for 0.49, sodium is 1:30, potassium is 3.8, chloride is 94, B1 is 34, creatinine is 1.5. Cardiac enzymes and troponins were negative 1, proBNP is significantly elevated at 12,200. Patient has positive distention of jugular veins bilaterally, no significant peripheral edema, congestive cough. In addition patient has been orthopneic. Patient was started on empiric antibiotics in the form of Zithromax and Rocephin , metolazone 2.5 mg on Thursday and Thursday. She received 1 dose of IV Lasix. We are asked to see the patient in consultation for shortness of breath. On 01/22/2018 patient seen in follow-up on medical surgical floor. States her breathing is improving, although patient does become short of breath with ambulation. No acute distress, pulse ox on 3 L per nasal Was 97%, patient is afebrile, patient has no occasional congestive cough, not able to bring up any sputum, lung sounds are positive for coarse crackles over right posterior lower lobe, diminished breath sounds over left base. Blood cultures remain negative, patient has been diuresed with IV Lasix, and Zaroxolyn, and today's chest x-ray shows interval resolution of the right lung ovoid lesion, the pseudotumor. There is improved right basilar infiltrate and/or atelectasis, improved but persistent small left pleural effusion. Patient still has digital JVD. Overall feeling and breathing better, antibiotics were discontinued per attending physician. On today's lab work the PVC is within normal limits at 8.4 , hemoglobin is 8.4, sodium is 131, chloride is 95, B1 is 43, creatinine is 1.85 , there has been the worsening of the renal profile, we will cut down the IV Lasix to 40 mg once daily. Objective - Vital Signs Vital signs: Vital Signs Temp 97.7 F 01/22/18 05:30 Pulse 70 01/22/18 12:03 Resp 20 01/22/18 05:30 BP 147/67 01/22/18 05:30 Pulse Ox 97 01/22/18 05:30 Intake & Output 01/21/18 01/22/18 01/22/18 18:59 06:59 18:59 Intake Total 440 200 Balance 440 200 Weight 62.09 kg 62.5 kg 62.46 kg Intake: Oral 440 200 Other: # Voids 2 1 # Bowel Movements 0 - Exam GENERAL EXAM: Alert, pleasant 72-year-old white female comfortable in no apparent distress. HEAD: Normocephalic/atraumatic. EYES: Normal reaction of pupils, equal size. Conjunctiva pink, sclera white. NOSE: Clear with pink turbinates. THROAT: No erythema or exudates. NECK: No masses, no thyroid enlargement, no adenopathy. Positive JVD bilaterally CHEST: No chest wall deformity. Symmetrical expansion. LUNGS: Diminished breath sounds, coarse crackles over right posterior lower lobe , diminished breath sounds on the left side at the base CVS: Regular rate and rhythm, normal S1 and S2, no gallops, no murmurs, no rubs ABDOMEN: Soft, nontender. No hepatosplenomegaly, normal bowel sounds, no guarding or rigidity. EXTREMITIES: No clubbing, no edema, no cyanosis, 2+ pulses and upper and lower extremities. MUSCULOSKELETAL: Muscle strength and tone normal. SPINE: No scoliosis or deformity SKIN: No rashes CENTRAL NERVOUS SYSTEM: Alert and oriented -3. No focal deficits, tone is normal in all 4 extremities. PSYCHIATRIC: Alert and oriented -3. Appropriate affect. Intact judgment and insight. - Labs CBC & Chem 7: 01/22/18 07:38 01/22/18 07:38 Labs: Abnormal Lab Results - Last 24 Hours (Table) 01/21/18 01/21/18 01/22/18 Range/Units 17:15 21:15 07:16 RBC (3.80-5.40) m/uL Hgb (11.4-16.0) gm/dL Hct (34.0-46.0) % RDW (11.5-15.5) % Plt Count (150-450) k/uL Neutrophils # (1.3-7.7) k/uL Lymphocytes # (1.0-4.8) k/uL Sodium (137-145) mmol/L Chloride (98-107) mmol/L BUN (7-17) mg/dL Creatinine (0.52-1.04) mg/dL Glucose (74-99) mg/dL POC Glucose (mg/dL) 167 H 210 H 140 H (75-99) mg/dL Albumin (3.5-5.0) g/dL 01/22/18 01/22/18 01/22/18 Range/Units 07:38 07:38 11:26 RBC 2.74 L (3.80-5.40) m/uL Hgb 8.4 L (11.4-16.0) gm/dL Hct 26.8 L (34.0-46.0) % RDW 15.6 H (11.5-15.5) % Plt Count 451 H (150-450) k/uL Neutrophils # 7.8 H (1.3-7.7) k/uL Lymphocytes # 0.3 L (1.0-4.8) k/uL Sodium 131 L (137-145) mmol/L Chloride 95 L (98-107) mmol/L BUN 43 H (7-17) mg/dL Creatinine 1.85 H (0.52-1.04) mg/dL Glucose 126 H (74-99) mg/dL POC Glucose (mg/dL) 132 H (75-99) mg/dL Albumin 3.3 L (3.5-5.0) g/dL Microbiology - Last 24 Hours (Table) 01/21/18 07:59 Blood Culture - Preliminary Blood No Growth after 24 hours 01/21/18 07:53 Blood Culture - Preliminary Blood No Growth after 24 hours Assessment and Plan Plan: Assessment: #1. Progressive dyspnea, orthopnea related to acute exacerbation of congestive heart failure, with diastolic dysfunction #2. Acute exacerbation of chronic obstructive pulmonary disease. #3. History of severe COPD, with underlying FEV1 of 43% of predicted. #4. Right midlung pseudotumor with fluid in the major fissure seen on the chest x-ray, compared to previous studies, and appears to be more prominent during times of CHF exacerbation. Right basilar infiltrate, possibly related to atelectasis, cannot entirely rule out pneumonia #5. History of A. fib, status post successful cardioversion in July 2017 currently in sinus rhythm, on chronic anticoagulation with Eliquis #6. History of chronic kidney disease secondary to nephrosclerosis #7. Hypertension #8. Hyperlipidemia #9. Rheumatoid arthritis #10. History of nicotine dependence, currently in remission #11. Chronic anemia #12. Hyponatremia, serum sodium is 130 Plan: Today's chest x-ray has been reviewed, there has been a resolution of the right pseudotumor in the right midlung, improvement in the appearance of the right basilar infiltrate, cannot entirely rule out pneumonia, patient has occasional congested nonproductive cough, afebrile, still sound a bit congested. Renal profile has worsened, we will decrease the IV Lasix to once daily. Continue with Zaroxolyn, continue other medical treatments. We'll continue to follow. I performed a history & physical examination of the patient and discussed their management with my nurse practitioner, Sasha Knutson. I reviewed the nurse practitioner's note and agree with the documented findings and plan of care. Lung sounds are positive diminished breath sounds, with bibasilar crackles, patient has a congested cough. The findings and the impression was discussed with the patient. I attest to the documentation by the nurse practitioner. Time with Patient: Less than 30
[2018-01-22 17:05] LABS: Glucose,Whole Blood 130 mg/dL (75-99)
[2018-01-22 21:32] LABS: Glucose,Whole Blood 177 mg/dL (75-99)
[2018-01-22] MEDS: ZOLPIDEM 5 MG TAB PO PRN (21:48)
--- NOTE | 2018-01-22 22:13 | PN ---
PROGRESS NOTE DATE OF SERVICE: 01/22/2018. PRESENTING COMPLAINT: Short of breath. INTERVAL HISTORY: This pleasant lady presented with COPD exacerbation and CHF exacerbation. Breathing is slightly better. She has a cough. Did tolerate some diet. Patient is not felt to have pneumonia. REVIEW OF SYSTEMS: Done for constitutional, cardiovascular, GI, pulmonary; relevant findings as above. CURRENT MEDICATIONS: Reviewed. They include IV Solu-Medrol, Lasix. PHYSICAL EXAMINATION: Temperature 97.9, pulse 63, respiration 20, blood pressure 140/77, pulse ox 95% on room air. GENERAL APPEARANCE: Sitting up, tired. EYES: Pupils equal. Conjunctivae normal. HEENT: External appearance of nose and ears normal. Oral cavity normal. NECK: JVD unable to assess. Mass not palpable. RESPIRATORY: Effort increased. LUNGS: Decreased breath sounds. Basal crackles and wheezing. CARDIOVASCULAR: First and second sounds normal. No edema. ABDOMEN: Soft, nontender. Liver and spleen not palpable. PSYCHIATRY: Alert and oriented x3. Mood and affect normal. INVESTIGATIONS: White count 8.4, potassium 4.6, BUN 43, creatinine 1.85. ASSESSMENT: 1. Acute chronic obstructive pulmonary disease exacerbation in an ex-smoker. 2. Patient does not appear to have pneumonia. 3. Acute on chronic congestive heart failure exacerbation from diastolic dysfunction, ejection fraction 50% to 55%, from hypertensive heart disease, present on admission. 4. Paroxysmal atrial fibrillation, currently in sinus rhythm, chronically on Eliquis. 5. Chronic kidney disease from hypertensive nephrosclerosis, stage III. 6. Hypertensive heart disease. 7. Chronic rheumatoid arthritis. 8. Hyperlipidemia. 9. Essential hypertension. 10.Anxiety and depression not otherwise specified. PLAN: Will give the patient 2 doses of IV Lasix 80 mg q.12 starting in the morning. Will repeat a chest x-ray in the morning. Patient remains on IV Solu-Medrol. MMODL / IJN: [id number] /
[2018-01-23] MEDS: methylPREDNISolone SOD SUCCI 40 MG/ML 1 ML VIAL IV SCH ×3 (01:05→16:09)
[2018-01-23 07:30] LABS: Glucose,Whole Blood 139 mg/dL (75-99)
[2018-01-23] MEDS: IPRATROPIUM-ALBUTEROL 3 ML NEB INHALATION SCH ×4 (07:56→19:43)
[2018-01-23] MEDS ORDERED: FUROSEMIDE 10 MG/ML 4 ML VIAL IV SCH (09:00)
[2018-01-23] MEDS: POTASSIUM CHLORIDE ER 20 MEQ TAB.ER PO SCH (09:10)
[2018-01-23] MEDS: ALLOPURINOL 100 MG TAB PO SCH (09:10)
[2018-01-23] MEDS: METOPROLOL TARTRATE 50 MG TAB PO SCH ×2 (09:10→21:32)
[2018-01-23] MEDS: hydrALAZINE HCL 50 MG TAB PO SCH ×3 (09:10→21:32)
[2018-01-23] MEDS: ATORVASTATIN 20 MG TAB PO SCH (09:10)
[2018-01-23] MEDS: AMIODARONE 100 MG TAB PO SCH (09:10)
[2018-01-23] MEDS: SERTRALINE 50 MG TAB PO SCH (09:10)
[2018-01-23] MEDS: APIXABAN 2.5 MG TABLET PO SCH ×2 (09:10→21:32)
[2018-01-23] MEDS: amLODIPine 10 MG TAB PO SCH (09:10)
[2018-01-23] MEDS: CALCITRIOL 0.25 MCG CAP PO SCH (09:10)
[2018-01-23] MEDS: FUROSEMIDE 10 MG/ML 10 ML VIAL IV SCH ×2 (09:11→21:31)
[2018-01-23] MEDS: INSULIN ASPART 100 UNIT/ML 1 ML 10 ML VIAL SQ SCH ×4 (09:11→22:05)
--- NOTE | 2018-01-23 12:17 | XR ---
EXAMINATION TYPE: XR chest 2V DATE OF EXAM: 01/23/2018 HISTORY: poss chf. REFERENCE: Previous study dated 01/22/2018. FINDINGS: There continue to be right basilar consolidation, unchanged from previous. There is airspac e disease behind the left heart which is similar to previous but may have worsened slightly. There is a left pleural effusion. Heart size upper limits of normal. IMPRESSION: 1. CONTINUING BIBASILAR AIRSPACE DISEASE MAY HAVE WORSENED ON THE LEFT. 2. CONTINUING LEFT-SIDED EFFUSION. 3. BORDERLINE CARDIOMEGALY.
[2018-01-23 12:29] LABS: Glucose,Whole Blood 145 mg/dL (75-99)
--- NOTE | 2018-01-23 13:34 | P.PN ---
Subjective Progress Note Date: 01/23/18 Principal diagnosis: Acute exacerbation of chronic diastolic congestive heart failure as well as an acute exacerbation of chronic obstructive pulmonary disease This is a 72-year-old white female patient with past medical history of COPD, with FEV1 of 42%, chronic congestive heart failure with diastolic dysfunction, pseudotumor of the right lung, essential hypertension, rheumatoid arthritis, osteoarthritis, previous CVA/TIA, who presented to the emergency department today on 01/21/2018 at 4:00 in the morning with complaints of increasing shortness of breath. She states her shortness of breath has gradually become worse, over the past couple of days or so. She denies having any chest pain, no increase in wheezing, no phlegm production. Patient does have a congested cough. She denies any fever or chills, denies any swelling in bilateral extremities. Patient is on nebulizer treatments at home, in addition to her rescue inhaler. Patient has a history of atrial fibrillation, status post successful cardioversion in July 2017. She is on chronic anticoagulation with Eliquis. She remains in sinus rhythm on the monitor. EKG showed normal sinus rhythm with left ventricular hypertrophy with repolarization abnormality, and could not rule out septal infarct of undetermined age. Chest x-ray was completed, and showed airspace consolidation within the right lower lobe, small bilateral pleural effusions, increased interstitial markings and mild interstitial edema. There is a rounded well-circumscribed opacity within the right midlung likely representing fluid tracking within the right major fissure. After reviewing previous chest x-rays from 09/24/2017, and 09/09/2017 , the pseudotumor in the right midlung area seems to be more prominent during exacerbations of CHF. Labs did not show any leukocytosis, WBC is 8.3, hemoglobin is 8.5, INR is 1.3, d-dimer was negative for 0.49, sodium is 1:30, potassium is 3.8, chloride is 94, B1 is 34, creatinine is 1.5. Cardiac enzymes and troponins were negative 1, proBNP is significantly elevated at 12,200. Patient has positive distention of jugular veins bilaterally, no significant peripheral edema, congestive cough. In addition patient has been orthopneic. Patient was started on empiric antibiotics in the form of Zithromax and Rocephin , metolazone 2.5 mg on Thursday and Thursday. She received 1 dose of IV Lasix. We are asked to see the patient in consultation for shortness of breath. On 01/22/2018 patient seen in follow-up on medical surgical floor. States her breathing is improving, although patient does become short of breath with ambulation. No acute distress, pulse ox on 3 L per nasal Was 97%, patient is afebrile, patient has no occasional congestive cough, not able to bring up any sputum, lung sounds are positive for coarse crackles over right posterior lower lobe, diminished breath sounds over left base. Blood cultures remain negative, patient has been diuresed with IV Lasix, and Zaroxolyn, and today's chest x-ray shows interval resolution of the right lung ovoid lesion, the pseudotumor. There is improved right basilar infiltrate and/or atelectasis, improved but persistent small left pleural effusion. Patient still has digital JVD. Overall feeling and breathing better, antibiotics were discontinued per attending physician. On today's lab work the PVC is within normal limits at 8.4 , hemoglobin is 8.4, sodium is 131, chloride is 95, B1 is 43, creatinine is 1.85 , there has been the worsening of the renal profile, we will cut down the IV Lasix to 40 mg once daily. The patient was seen again today 01/23/2018 in follow-up on the regular medical floor. She is currently resting quite comfortably in bed. She is still short of breath. Still somewhat bronchospastic and wheezy. Still dyspneic on exertion. Slightly improved today as compared to yesterday. She is maintaining good O2 saturations in the upper 90s on room air. She's been afebrile. No tachypnea. Blood cultures reveal no growth. Today's chest x-ray shows continued basilar airspace disease slightly worse on the left with a left- sided effusion and borderline cardiomegaly. She remains on bronchodilators and IV Solu-Medrol. She remains on IV diuretics. Objective - Vital Signs Vital signs: Vital Signs Temp 97.1 F L 01/23/18 06:15 Pulse 76 01/23/18 11:31 Resp 20 01/23/18 06:15 BP 157/96 01/23/18 06:15 Pulse Ox 98 01/23/18 06:15 Intake & Output 01/22/18 01/23/1801/23/18 18:59 06:59 18:59 Intake Total 400 600 Balance 400 600 Weight 62.46 kg 63.049 kg Intake: Oral 400 600 Other: # Voids 3 1 # Bowel Movements 0 - Exam GENERAL EXAM: Alert, pleasant 72-year-old white female comfortable in no apparent distress. HEAD: Normocephalic/atraumatic. EYES: Normal reaction of pupils, equal size. Conjunctiva pink, sclera white. NOSE: Clear with pink turbinates. THROAT: No erythema or exudates. NECK: No masses, no thyroid enlargement, no adenopathy. Positive JVD bilaterally CHEST: No chest wall deformity. Symmetrical expansion. LUNGS: Diminished breath sounds, coarse crackles over right posterior lower lobe , diminished breath sounds on the left side at the base CVS: Regular rate and rhythm, normal S1 and S2, no gallops, no murmurs, no rubs ABDOMEN: Soft, nontender. No hepatosplenomegaly, normal bowel sounds, no guarding or rigidity. EXTREMITIES: No clubbing, no edema, no cyanosis, 2+ pulses and upper and lower extremities. MUSCULOSKELETAL: Muscle strength and tone normal. SPINE: No scoliosis or deformity SKIN: No rashes CENTRAL NERVOUS SYSTEM: Alert and oriented -3. No focal deficits, tone is normal in all 4 extremities. PSYCHIATRIC: Alert and oriented -3. Appropriate affect. Intact judgment and insight. - Labs CBC & Chem 7: 01/22/18 07:38 01/22/18 07:38 Labs: Abnormal Lab Results - Last 24 Hours (Table) 01/22/18 01/22/18 01/23/18 Range/Units 17:00 21:10 07:23 POC Glucose (mg/dL) 130 H 177 H 139 H (75-99) mg/dL 01/23/18 Range/Units 12:26 POC Glucose (mg/dL) 145 H (75-99) mg/dL Microbiology - Last 24 Hours (Table) 01/21/18 07:59 Blood Culture - Preliminary Blood No Growth after 48 hours 01/21/18 07:53 Blood Culture - Preliminary Blood No Growth after 48 hours Assessment and Plan Assessment: Assessment: #1. Progressive dyspnea, orthopnea related to acute exacerbation of congestive heart failure, with diastolic dysfunction #2. Acute exacerbation of chronic obstructive pulmonary disease. #3. History of severe COPD, with underlying FEV1 of 43% of predicted. #4. Right midlung pseudotumor with fluid in the major fissure seen on the chest x-ray, compared to previous studies, and appears to be more prominent during times of CHF exacerbation. Right basilar infiltrate, possibly related to atelectasis, cannot entirely rule out pneumonia #5. History of A. fib, status post successful cardioversion in July 2017 currently in sinus rhythm, on chronic anticoagulation with Eliquis #6. History of chronic kidney disease secondary to nephrosclerosis #7. Hypertension #8. Hyperlipidemia #9. Rheumatoid arthritis #10. History of nicotine dependence, currently in remission #11. Chronic anemia #12. Hyponatremia, serum sodium is 130 Plan: The patient was seen and evaluated by Dr. Parmar. Chest x-ray was reviewed. Continue IV diuretics. Continue bronchodilators and IV Solu-Medrol. We'll increase her activity as tolerated. We'll continue to follow and make further recommendations based on her clinical status. I, the cosigning physician, performed a history & physical examination of the patient. Lungs sounds with crackles in the bilateral bases more so on the left. Maintaining good O2 saturations in the 90s on room air. I discussed the assessment and plan of care with my nurse practitioner, Shakila Munson. I attest to the above note as dictated by her.
[2018-01-23 17:17] LABS: Glucose,Whole Blood 137 mg/dL (75-99)
[2018-01-23 20:35] LABS: Glucose,Whole Blood 179 mg/dL (75-99)
[2018-01-23] MEDS: ZOLPIDEM 5 MG TAB PO PRN (21:52)
[2018-01-24] MEDS: methylPREDNISolone SOD SUCCI 40 MG/ML 1 ML VIAL IV SCH ×4 (00:23→23:11)
--- NOTE | 2018-01-24 04:02 | PN ---
PROGRESS NOTE DATE OF SERVICE: 01/23/2018 PRESENTING COMPLAINT: Short of breath. INTERVAL HISTORY: Patient presented with COPD exacerbation and CHF exacerbation. Still has some wheezing. Feels a bit better. Appetite is getting better. Patient did sit at the edge of the bed. REVIEW OF SYSTEMS: Done for constitutional, cardiovascular, GI, pulmonary and relevant findings as above. CURRENT MEDICATIONS: Reviewed that include DuoNeb, IV Solu-Medrol. PHYSICAL EXAMINATION: Temperature 97.8 pulse 66, respirations 16, blood pressure 137/69, pulse ox 93 percent on room air. GENERAL APPEARANCE: Sitting up, less tired. EYES: Pupils equal. Conjunctivae normal. HEENT: External nose and ears normal. Oral cavity normal. NECK: JVD unable to assess. Mass not palpable. Respiratory effort increased. LUNGS: Decreased breath sounds. Wheezing present. Minimal crackles. CARDIOVASCULAR: First and second sounds, no edema. ABDOMEN: Soft, nontender. Liver and spleen not palpable. PSYCHIATRY: Alert and oriented x3. Mood and affect normal. INVESTIGATIONS: Accu-Cheks are noted. ASSESSMENT: 1. Acute COPD exacerbation in an ex-smoker. 2. Patient does not appear to have pneumonia. 3. Acute on chronic congestive heart failure exacerbation from diastolic dysfunction, ejection fraction 50-55 percent from hypertensive heart disease, present on admission. 4. Paroxysmal atrial fibrillation currently in sinus rhythm on Eliquis. 5. Chronic kidney disease from hypertensive nephrosclerosis stage III. 6. Hypertensive heart disease. 7. Chronic rheumatoid arthritis. 8. Hyperlipidemia. 9. Essential hypertension. 10.Anxiety and depression, unspecified. PLAN: Care was discussed with the patient and the at the bedside. I think patient will need 1 or 2 more days of treatment in the hospital. Will see how she does tomorrow. The patient did receive IV Lasix this morning. Chest x-ray from this morning unclear if small infiltrate versus effusion. MMODL / IJN: [id number] /
--- NOTE | 2018-01-24 06:57 | XR ---
EXAMINATION TYPE: XR chest 2V DATE OF EXAM: 01/24/2018 HISTORY: chf. REFERENCE: Previous study dated 01/23/2018. FINDINGS: The lungs are overinflated. The heart is minimally prominent. There is vascular congestion and subtle interstitial change. I cannot exclude a small left effusion. There continues to be mild, b ibasilar basilar airspace disease. IMPRESSION: 1. COPD. 2. MILD CARDIOMEGALY. 3. VASCULAR CONGESTION AND SUBTLE INTERSTITIAL CHANGE. PLEASE CORRELATE FOR CONGESTIVE HEART FAILURE. 4. CONTINUING BIBASILAR AIRSPACE DISEASE. 5. SMALL, LEFT EFFUSION.
[2018-01-24 07:21] LABS: Calcium 9.6 mg/dL (8.4-10.2); Potassium 4.7 mmol/L (3.5-5.1)
[2018-01-24] MEDS: INSULIN ASPART 100 UNIT/ML 1 ML 10 ML VIAL SQ SCH ×4 (07:43→20:44)
[2018-01-24 07:49] LABS: Glucose,Whole Blood 131 mg/dL (75-99)
[2018-01-24] MEDS: AMIODARONE 100 MG TAB PO SCH (08:18)
[2018-01-24] MEDS: METOPROLOL TARTRATE 50 MG TAB PO SCH ×2 (08:18→20:44)
[2018-01-24] MEDS: CALCITRIOL 0.25 MCG CAP PO SCH (08:18)
[2018-01-24] MEDS: ALLOPURINOL 100 MG TAB PO SCH (08:19)
[2018-01-24] MEDS: amLODIPine 10 MG TAB PO SCH (08:19)
[2018-01-24] MEDS: APIXABAN 2.5 MG TABLET PO SCH ×2 (08:19→20:44)
[2018-01-24] MEDS: hydrALAZINE HCL 50 MG TAB PO SCH ×3 (08:19→20:44)
[2018-01-24] MEDS: SERTRALINE 50 MG TAB PO SCH (08:19)
[2018-01-24] MEDS: POTASSIUM CHLORIDE ER 20 MEQ TAB.ER PO SCH (08:19)
[2018-01-24] MEDS: ATORVASTATIN 20 MG TAB PO SCH (08:19)
[2018-01-24] MEDS: IPRATROPIUM-ALBUTEROL 3 ML NEB INHALATION SCH ×4 (08:44→19:26)
--- NOTE | 2018-01-24 11:20 | P.PN ---
Subjective Progress Note Date: 01/24/18 Principal diagnosis: Acute exacerbation of congestive heart failure with diastolic dysfunction, COPD This is a 72-year-old white female patient with past medical history of COPD, with FEV1 of 42%, chronic congestive heart failure with diastolic dysfunction, pseudotumor of the right lung, essential hypertension, rheumatoid arthritis, osteoarthritis, previous CVA/TIA, who presented to the emergency department today on 01/21/2018 at 4:00 in the morning with complaints of increasing shortness of breath. She states her shortness of breath has gradually become worse, over the past couple of days or so. She denies having any chest pain, no increase in wheezing, no phlegm production. Patient does have a congested cough. She denies any fever or chills, denies any swelling in bilateral extremities. Patient is on nebulizer treatments at home, in addition to her rescue inhaler. Patient has a history of atrial fibrillation, status post successful cardioversion in July 2017. She is on chronic anticoagulation with Eliquis. She remains in sinus rhythm on the monitor. EKG showed normal sinus rhythm with left ventricular hypertrophy with repolarization abnormality, and could not rule out septal infarct of undetermined age. Chest x-ray was completed, and showed airspace consolidation within the right lower lobe, small bilateral pleural effusions, increased interstitial markings and mild interstitial edema. There is a rounded well-circumscribed opacity within the right midlung likely representing fluid tracking within the right major fissure. After reviewing previous chest x-rays from 09/24/2017, and 09/09/2017 , the pseudotumor in the right midlung area seems to be more prominent during exacerbations of CHF. Labs did not show any leukocytosis, WBC is 8.3, hemoglobin is 8.5, INR is 1.3, d-dimer was negative for 0.49, sodium is 1:30, potassium is 3.8, chloride is 94, B1 is 34, creatinine is 1.5. Cardiac enzymes and troponins were negative 1, proBNP is significantly elevated at 12,200. Patient has positive distention of jugular veins bilaterally, no significant peripheral edema, congestive cough. In addition patient has been orthopneic. Patient was started on empiric antibiotics in the form of Zithromax and Rocephin , metolazone 2.5 mg on Thursday and Thursday. She received 1 dose of IV Lasix. We are asked to see the patient in consultation for shortness of breath. On 01/22/2018 patient seen in follow-up on medical surgical floor. States her breathing is improving, although patient does become short of breath with ambulation. No acute distress, pulse ox on 3 L per nasal Was 97%, patient is afebrile, patient has no occasional congestive cough, not able to bring up any sputum, lung sounds are positive for coarse crackles over right posterior lower lobe, diminished breath sounds over left base. Blood cultures remain negative, patient has been diuresed with IV Lasix, and Zaroxolyn, and today's chest x-ray shows interval resolution of the right lung ovoid lesion, the pseudotumor. There is improved right basilar infiltrate and/or atelectasis, improved but persistent small left pleural effusion. Patient still has digital JVD. Overall feeling and breathing better, antibiotics were discontinued per attending physician. On today's lab work the PVC is within normal limits at 8.4 , hemoglobin is 8.4, sodium is 131, chloride is 95, B1 is 43, creatinine is 1.85 , there has been the worsening of the renal profile, we will cut down the IV Lasix to 40 mg once daily. On 01/24/2018 patient seen in follow-up on medical surgical floor. Patient still sounds bronchospastic today, clinically patient states her breathing has improved. Today's chest x-ray has been reviewed, shows COPD, mild cardiomegaly , vascular congestion and subtle interstitial change, community program assistant with congestive heart failure, continuing bibasilar airspace disease, small left pleural effusion. Today's labs show sodium of 129, potassium is 4.7, chloride is 90, BUN is 72, and creatinine is 3.63, there has been worsening of the patient's renal profile, yesterday patient was given additional dose of IV Lasix, patient has been voiding, her net fluid balance is hard to estimate, however her weight continues to trend up, today is 63.8 kg, and her admission weight was 61.2 kg. No bilateral lower extremity edema, patient still has positive JVD bilaterally. She continues on IV Solu-Medrol, currently at 40 mg every 8 hours. We will add Pulmicort and Perforomist in addition to patient's DuoNeb. Objective - Vital Signs Vital signs: Vital Signs Temp 97.2 F L 01/24/18 07:10 Pulse 72 01/24/18 08:58 Resp 22 01/24/18 07:10 BP 143/71 01/24/18 07:10 Pulse Ox 94 L 01/24/18 07:10 Intake & Output 01/23/18 01/24/18 01/24/18 18:59 06:59 18:59 Intake Total 700 Balance 700 Weight 63.866 kg Intake: Oral 700 Other: # Voids 2 1 # Bowel Movements 0 - Exam GENERAL EXAM: Alert, pleasant 72-year-old white female comfortable in no apparent distress. HEAD: Normocephalic/atraumatic. EYES: Normal reaction of pupils, equal size. Conjunctiva pink, sclera white. NOSE: Clear with pink turbinates. THROAT: No erythema or exudates. NECK: No masses, no thyroid enlargement, no adenopathy. Positive JVD bilaterally CHEST: No chest wall deformity. Symmetrical expansion. LUNGS: Diffuse wheezes bilaterally CVS: Regular rate and rhythm, normal S1 and S2, no gallops, no murmurs, no rubs ABDOMEN: Soft, nontender. No hepatosplenomegaly, normal bowel sounds, no guarding or rigidity. EXTREMITIES: No clubbing, no edema, no cyanosis, 2+ pulses and upper and lower extremities. MUSCULOSKELETAL: Muscle strength and tone normal. SPINE: No scoliosis or deformity SKIN: No rashes CENTRAL NERVOUS SYSTEM: Alert and oriented -3. No focal deficits, tone is normal in all 4 extremities. PSYCHIATRIC: Alert and oriented -3. Appropriate affect. Intact judgment and insight. - Labs CBC & Chem 7: 01/22/18 07:38 01/24/18 06:54 Labs: Abnormal Lab Results - Last 24 Hours (Table) 01/23/18 01/23/18 01/23/18 Range/Units 12:26 17:12 20:22 Sodium (137-145) mmol/L Chloride (98-107) mmol/L BUN (7-17) mg/dL Creatinine (0.52-1.04) mg/dL Glucose (74-99) mg/dL POC Glucose (mg/dL) 145 H 137 H 179 H (75-99) mg/dL 01/24/18 01/24/18 Range/Units 06:54 07:12 Sodium 129 L (137-145) mmol/L Chloride 90 L (98-107) mmol/L BUN 72 H (7-17) mg/dL Creatinine 3.63 H (0.52-1.04) mg/dL Glucose 126 H (74-99) mg/dL POC Glucose (mg/dL) 131 H (75-99) mg/dL Microbiology - Last 24 Hours (Table) 01/21/18 07:59 Blood Culture - Preliminary Blood No Growth after 72 hours 01/21/18 07:53 Blood Culture - Preliminary Blood No Growth after 72 hours Assessment and Plan Plan: Assessment: #1. Progressive dyspnea, orthopnea related to acute exacerbation of congestive heart failure, with diastolic dysfunction #2. Acute exacerbation of chronic obstructive pulmonary disease. #3. History of severe COPD, with underlying FEV1 of 43% of predicted. #4. Right midlung pseudotumor with fluid in the major fissure seen on the chest x-ray, compared to previous studies, and appears to be more prominent during times of CHF exacerbation. Right basilar infiltrate, possibly related to atelectasis, cannot entirely rule out pneumonia #5. History of A. fib, status post successful cardioversion in July 2017 currently in sinus rhythm, on chronic anticoagulation with Eliquis #6. History of chronic kidney disease secondary to nephrosclerosis #7. Hypertension #8. Hyperlipidemia #9. Rheumatoid arthritis #10. History of nicotine dependence, currently in remission #11. Chronic anemia #12. Hyponatremia, serum sodium is 130 Plan: There has been significant worsening of patient's renal profile, diuretics are on hold, will consult nephrology in regards to worsening renal profile. Continue with Solu-Medrol 40 mg every 8 hours, continue with DuoNeb, we will add Pulmicort and Perforomist. Today's chest x-ray shows vascular congestion and interstitial change, related to congestive heart failure, bibasilar airspace disease, cannot entirely rule out pneumonia. Repeat CBC. I performed a history & physical examination of the patient and discussed their management with my nurse practitioner, Sasha Knutson. I reviewed the nurse practitioner's note and agree with the documented findings and plan of care. Lung sounds are positive for diffuse wheezes bilaterally. The findings and the impression was discussed with the patient. I attest to the documentation by the nurse practitioner. Time with Patient: Less than 30
[2018-01-24 11:51] LABS: Basophils % (A) 0 %; Eosinophils % (A) 0 %; HCT 30.4 % (34.0-46.0); HGB 9.2 gm/dL (11.4-16.0); Hypochromasia Slight; Lymphocytes # (A) 0.3 k/uL (1.0-4.8); Lymphocytes % (A) 3 %; MCH 30.1 pg (25.0-35.0); MCHC 30.1 g/dL (31.0-37.0); MCV 99.8 fL (80.0-100.0); Macrocytosis Slight; Mean Platelet Volume 7.1; Monocytes # (A) 0.6 k/uL (0-1.0); Monocytes % (A) 6 %; Neutrophils # (A) 8.5 k/uL (1.3-7.7); Neutrophils % (A) 90 %; Platelet Count 555 k/uL (150-450); RBC 3.05 m/uL (3.80-5.40); RDW 15.8 % (11.5-15.5); WBC 9.5 k/uL (3.8-10.6)
[2018-01-24 11:57] LABS: Glucose,Whole Blood 135 mg/dL (75-99)
--- NOTE | 2018-01-24 17:01 | PN ---
PROGRESS NOTE DATE OF SERVICE: 01/24/18 PRESENT COMPLAINT: Short of breath. INTERVAL HISTORY: Patient presented with COPD exacerbation and CHF exacerbation. Wheezing is better though still present. The patient was given IV Lasix which resulted in renal function worsening. The patient has been out of bed. is present at the bedside. REVIEW OF SYSTEMS: Done for constitutional, cardiovascular, GI, pulmonary; relevant findings as above. CURRENT MEDICATIONS: Reviewed. IV Lasix, got a dose yesterday. IV Solu-Medrol 40 mg q.8. DuoNeb. PHYSICAL EXAMINATION: Temperature 98, pulse 60, respiratory 20, blood pressure 140/69, pulse ox 95 percent on room air. GENERAL APPEARANCE: Sitting up, awake. EYES: Pupils equal. Conjunctivae normal. HEENT: External appearance of nose and ears normal. NECK: JVD unable to assess. Mass not palpable. RESPIRATORY: Effort increased. Lungs, decreased breath sounds and some wheezing. CARDIOVASCULAR: First and second sounds, no edema. ABDOMEN: Soft, nontender. Liver and spleen not palpable. PSYCHIATRY: Alert and oriented x3. Mood and affect normal. INVESTIGATIONS: White count 9.5, hemoglobin 9.2, potassium 4.7, BUN 32, creatinine 3.63. ASSESSMENT: 1. Acute chronic obstructive pulmonary disease exacerbation in an ex-smoker. 2. Doubtful pneumonia. 3. Acute on chronic congestive heart failure exacerbation from diastolic dysfunction. Ejection fraction 50-55 percent from hypertensive heart disease, present on admission. 4. Acute renal failure, progressive, probably prerenal from IV diuresis. 5. Paroxysmal atrial fibrillation currently in sinus rhythm on Eliquis. 6. Chronic kidney disease, hypertensive nephrosclerosis stage III. 7. Hypertensive heart disease. 8. Chronic rheumatoid arthritis. 9. Hyperlipidemia. 10.Essential hypertension. 11.Anxiety, depression, not otherwise specified. PLAN: Care was discussed with the patient and at bedside. IV Lasix discontinued. Keep a close eye on renal function. Expect the renal function to go up a bit more by tomorrow and then hopefully plateau off. Diuretics have been held. Follow closely. Nephrology is consulted. MMODL / IJN: [id number] /
[2018-01-24 17:21] LABS: Glucose,Whole Blood 148 mg/dL (75-99)
[2018-01-24] MEDS: FORMOTEROL FUMARATE 20 MCG/2 ML NEBU INHALATION SCH (19:26)
[2018-01-24] MEDS: BUDESONIDE 1 MG/2 ML NEBU INHALATION SCH (19:26)
[2018-01-24 20:36] LABS: Glucose,Whole Blood 194 mg/dL (75-99)
[2018-01-24] MEDS: ZOLPIDEM 5 MG TAB PO PRN (23:28)
[2018-01-25] MEDS: FORMOTEROL FUMARATE 20 MCG/2 ML NEBU INHALATION SCH ×2 (07:20→21:21)
[2018-01-25] MEDS: BUDESONIDE 1 MG/2 ML NEBU INHALATION SCH ×2 (07:20→21:21)
[2018-01-25] MEDS: IPRATROPIUM-ALBUTEROL 3 ML NEB INHALATION SCH ×4 (07:20→21:21)
[2018-01-25 07:31] LABS: Glucose,Whole Blood 141 mg/dL (75-99)
[2018-01-25] MEDS: SERTRALINE 50 MG TAB PO SCH (08:17)
[2018-01-25] MEDS: methylPREDNISolone SOD SUCCI 40 MG/ML 1 ML VIAL IV SCH (08:17)
[2018-01-25] MEDS: APIXABAN 2.5 MG TABLET PO SCH ×2 (08:17→19:41)
[2018-01-25] MEDS: METOPROLOL TARTRATE 50 MG TAB PO SCH ×2 (08:17→19:41)
[2018-01-25] MEDS: ALLOPURINOL 100 MG TAB PO SCH (08:17)
[2018-01-25] MEDS: CALCITRIOL 0.25 MCG CAP PO SCH (08:17)
[2018-01-25] MEDS: POTASSIUM CHLORIDE ER 20 MEQ TAB.ER PO SCH (08:17)
[2018-01-25] MEDS: amLODIPine 10 MG TAB PO SCH (08:17)
[2018-01-25] MEDS: AMIODARONE 100 MG TAB PO SCH (08:17)
[2018-01-25] MEDS: INSULIN ASPART 100 UNIT/ML 1 ML 10 ML VIAL SQ SCH ×4 (08:17→21:29)
[2018-01-25] MEDS: ATORVASTATIN 20 MG TAB PO SCH (08:17)
[2018-01-25] MEDS: hydrALAZINE HCL 50 MG TAB PO SCH ×3 (08:17→19:41)
[2018-01-25 09:13] LABS: Calcium 9.1 mg/dL (8.4-10.2); Potassium 5.1 mmol/L (3.5-5.1)
[2018-01-25] MEDS: SODIUM CHLORIDE 0.9% 1,000 ML IV SCH (12:09)
[2018-01-25 12:55] LABS: Glucose,Whole Blood 120 mg/dL (75-99)
--- NOTE | 2018-01-25 13:19 | P.PN ---
Subjective Progress Note Date: 01/25/18 Principal diagnosis: Acute exacerbation of congestive heart failure with diastolic dysfunction, COPD This is a 72-year-old white female patient with past medical history of COPD, with FEV1 of 42%, chronic congestive heart failure with diastolic dysfunction, pseudotumor of the right lung, essential hypertension, rheumatoid arthritis, osteoarthritis, previous CVA/TIA, who presented to the emergency department today on 01/21/2018 at 4:00 in the morning with complaints of increasing shortness of breath. She states her shortness of breath has gradually become worse, over the past couple of days or so. She denies having any chest pain, no increase in wheezing, no phlegm production. Patient does have a congested cough. She denies any fever or chills, denies any swelling in bilateral extremities. Patient is on nebulizer treatments at home, in addition to her rescue inhaler. Patient has a history of atrial fibrillation, status post successful cardioversion in July 2017. She is on chronic anticoagulation with Eliquis. She remains in sinus rhythm on the monitor. EKG showed normal sinus rhythm with left ventricular hypertrophy with repolarization abnormality, and could not rule out septal infarct of undetermined age. Chest x-ray was completed, and showed airspace consolidation within the right lower lobe, small bilateral pleural effusions, increased interstitial markings and mild interstitial edema. There is a rounded well-circumscribed opacity within the right midlung likely representing fluid tracking within the right major fissure. After reviewing previous chest x-rays from 09/24/2017, and 09/09/2017 , the pseudotumor in the right midlung area seems to be more prominent during exacerbations of CHF. Labs did not show any leukocytosis, WBC is 8.3, hemoglobin is 8.5, INR is 1.3, d-dimer was negative for 0.49, sodium is 1:30, potassium is 3.8, chloride is 94, B1 is 34, creatinine is 1.5. Cardiac enzymes and troponins were negative 1, proBNP is significantly elevated at 12,200. Patient has positive distention of jugular veins bilaterally, no significant peripheral edema, congestive cough. In addition patient has been orthopneic. Patient was started on empiric antibiotics in the form of Zithromax and Rocephin , metolazone 2.5 mg on Thursday and Thursday. She received 1 dose of IV Lasix. We are asked to see the patient in consultation for shortness of breath. On 01/22/2018 patient seen in follow-up on medical surgical floor. States her breathing is improving, although patient does become short of breath with ambulation. No acute distress, pulse ox on 3 L per nasal Was 97%, patient is afebrile, patient has no occasional congestive cough, not able to bring up any sputum, lung sounds are positive for coarse crackles over right posterior lower lobe, diminished breath sounds over left base. Blood cultures remain negative, patient has been diuresed with IV Lasix, and Zaroxolyn, and today's chest x-ray shows interval resolution of the right lung ovoid lesion, the pseudotumor. There is improved right basilar infiltrate and/or atelectasis, improved but persistent small left pleural effusion. Patient still has digital JVD. Overall feeling and breathing better, antibiotics were discontinued per attending physician. On today's lab work the PVC is within normal limits at 8.4 , hemoglobin is 8.4, sodium is 131, chloride is 95, B1 is 43, creatinine is 1.85 , there has been the worsening of the renal profile, we will cut down the IV Lasix to 40 mg once daily. On 01/24/2018 patient seen in follow-up on medical surgical floor. Patient still sounds bronchospastic today, clinically patient states her breathing has improved. Today's chest x-ray has been reviewed, shows COPD, mild cardiomegaly , vascular congestion and subtle interstitial change, reading assistant with congestive heart failure, continuing bibasilar airspace disease, small left pleural effusion. Today's labs show sodium of 129, potassium is 4.7, chloride is 90, BUN is 72, and creatinine is 3.63, there has been worsening of the patient's renal profile, yesterday patient was given additional dose of IV Lasix, patient has been voiding, her net fluid balance is hard to estimate, however her weight continues to trend up, today is 63.8 kg, and her admission weight was 61.2 kg. No bilateral lower extremity edema, patient still has positive JVD bilaterally. She continues on IV Solu-Medrol, currently at 40 mg every 8 hours. We will add Pulmicort and Perforomist in addition to patient's DuoNeb. On the 2017 patient seen in follow-up on medical surgical floor. She denies any distress, denies any worsening shortness of breath, room air pulse ox is 96%, patient is afebrile, hemodynamically stable, respirations are even and nonlabored, lung sounds are clear, no rhonchi, no rales or wheezing noted. Lasix remains on hold, today's labs shows worsening of renal profile, BUN is 88 , creatinine is 4.28, nephrology has been consulted. No chest pain, no shortness of breath. She is tolerating oral intake. He is requesting to go home today. Objective - Vital Signs Vital signs: Vital Signs Temp 97.8 F 01/25/18 07:10 Pulse 69 01/25/18 11:29 Resp 18 01/25/18 07:10 BP 155/64 01/25/18 07:10 Pulse Ox 96 01/25/18 07:10 Intake & Output 01/24/18 01/25/18 01/25/18 18:59 06:59 18:59 Weight 65.3 kg Other: # Voids 1 1 0 - Exam GENERAL EXAM: Alert, pleasant 72-year-old white female comfortable in no apparent distress. HEAD: Normocephalic/atraumatic. EYES: Normal reaction of pupils, equal size. Conjunctiva pink, sclera white. NOSE: Clear with pink turbinates. THROAT: No erythema or exudates. NECK: No masses, no thyroid enlargement, no adenopathy. Positive JVD bilaterally CHEST: No chest wall deformity. Symmetrical expansion. LUNGS: lung sounds are clear CVS: Regular rate and rhythm, normal S1 and S2, no gallops, no murmurs, no rubs ABDOMEN: Soft, nontender. No hepatosplenomegaly, normal bowel sounds, no guarding or rigidity. EXTREMITIES: No clubbing, no edema, no cyanosis, 2+ pulses and upper and lower extremities. MUSCULOSKELETAL: Muscle strength and tone normal. SPINE: No scoliosis or deformity SKIN: No rashes CENTRAL NERVOUS SYSTEM: Alert and oriented -3. No focal deficits, tone is normal in all 4 extremities. PSYCHIATRIC: Alert and oriented -3. Appropriate affect. Intact judgment and insight. - Labs CBC & Chem 7: 01/24/18 06:54 01/25/18 08:16 Labs: Abnormal Lab Results - Last 24 Hours (Table) 01/24/18 01/24/1818 Range/Units 17:01 20:25 07:15 Sodium (137-145) mmol/L Chloride (98-107) mmol/L Carbon Dioxide (22-30) mmol/L BUN (7-17) mg/dL Creatinine (0.52-1.04) mg/dL Glucose (74-99) mg/dL POC Glucose (mg/dL) 148 H 194 H 141 H (75-99) mg/dL 01/25/18 01/25/18 Range/Units 08:16 12:23 Sodium 125 L (137-145) mmol/L Chloride 90 L (98-107) mmol/L Carbon Dioxide 18 L (22-30) mmol/L BUN 88 H (7-17) mg/dL Creatinine 4.28 H (0.52-1.04) mg/dL Glucose 179 H (74-99) mg/dL POC Glucose (mg/dL) 120 H (75-99) mg/dL Microbiology - Last 24 Hours (Table) 01/21/18 07:59 Blood Culture - Preliminary Blood No Growth after 96 hours 01/21/18 07:53 Blood Culture - Preliminary Blood No Growth after 96 hours Assessment and Plan Plan: Assessment: #1. Progressive dyspnea, orthopnea related to acute exacerbation of congestive heart failure, with diastolic dysfunction #2. Acute exacerbation of chronic obstructive pulmonary disease. #3. History of severe COPD, with underlying FEV1 of 43% of predicted. #4. Right midlung pseudotumor with fluid in the major fissure seen on the chest x-ray, compared to previous studies, and appears to be more prominent during times of CHF exacerbation. Right basilar infiltrate, possibly related to atelectasis, cannot entirely rule out pneumonia #5. History of A. fib, status post successful cardioversion in July 2017 currently in sinus rhythm, on chronic anticoagulation with Eliquis #6. History of chronic kidney disease secondary to nephrosclerosis #7. Hypertension #8. Hyperlipidemia #9. Rheumatoid arthritis #10. History of nicotine dependence, currently in remission #11. Chronic anemia #12. Hyponatremia, serum sodium is 130 Plan: Today's exam shows clear lung sounds, no wheezing, no rales. Renal profile has worsened, nephrology consult has been requested, otherwise patient remains stable, no shortness of breath or chest pain. IV Solu-Medrol has been switched to oral prednisone, continue with nebulized bronchodilators. I performed a history & physical examination of the patient and discussed their management with my nurse practitioner, Sasha Knutson. I reviewed the nurse practitioner's note and agree with the documented findings and plan of care. Lung sounds are clear. The findings and the impression was discussed with the patient. I attest to the documentation by the nurse practitioner. Time with Patient: Less than 30
[2018-01-25 14:05] LABS: Appearance,Urine Cloudy (Clear); Bilirubin,Urine Negative (Negative); Blood,Urine Negative (Negative); Color,Urine Yellow; Glucose,Urine (UA) Negative (Negative); Ketones,Urine Negative (Negative); Leukocyte Esterase,Urine Negative (Negative); Mucus,Urine Rare /hpf; Nitrite,Urine Negative (Negative); PH, Urine 5.5 (5.0-8.0); Protein,Urine Trace (Negative); Specific Gravity,Urine 1.011 (1.001-1.035); Squamous Epithelial Cell,Urine 7 /hpf (0-4); Urobilinogen,Urine <2.0 mg/dL (<2.0); WBC,Urine 1 /hpf (0-5)
[2018-01-25 17:43] LABS: Glucose,Whole Blood 132 mg/dL (75-99)
--- NOTE | 2018-01-25 20:08 | US ---
EXAMINATION TYPE: US kidneys/renal and bladder DATE OF EXAM: 01/25/2018 COMPARISON: NONE CLINICAL HISTORY: RF. Renal failure EXAM MEASUREMENTS: Right Kidney: 9.0 x 4.0 x 4.9 cm Left Kidney: 8.1 x 3.6 x 3.1 cm Right Kidney: No hydronephrosis or masses seen Left Kidney: Atrophic with cortical thinning. No hydronephrosis or masses seen. Bladder: wnl Bilateral Jets seen: Yes There is no evidence for hydronephrosis at this point in time. No nephrolithiasis is seen. No reji s are identified. The urinary bladder is anechoic. Bilateral ureteral jets are seen. IMPRESSION: There is left renal cortical atrophy. No hydronephrosis. No renal mass.
--- NOTE | 2018-01-25 20:20 | CONS ---
CONSULTATION REASON FOR CONSULT: Renal failure. HISTORY OF PRESENT ILLNESS: Patient is a 72-year-old female who was admitted to the hospital with complaints of shortness of breath. She was found to be in fluid overload and had CHF. The patient was diuresed. Her serum creatinine was 1.5 on initial admission. It went up to 3.63 yesterday and today it is at 4.28. Serum sodium also dropped to 125. Blood pressure has not been significantly low. The patient has not received any IV contrast. She has been voiding. We will need to check a postvoid residual. PAST MEDICAL HISTORY: Significant for hypertension, CVA, asthma, osteoarthritis, previous history of pneumonia, cardiac dysrhythmia. PAST SURGICAL HISTORY: Tonsillectomy, ORIF right ankle, IUD removal, dental implants, cardioversion. SOCIAL HISTORY: Patient is a former smoker. No history of drug abuse. The patient used to have heavy consumption of alcohol. MEDICATIONS: Prior to admission included: Zoloft, K-Dur, Norvasc, Zyloprim, Lipitor, Rocaltrol, Cordarone, Eliquis, metoprolol, Ambien, hydralazine. ALLERGIES: None. EXAMINATION: Patient is currently comfortable, awake. She is not in any acute distress. She is alert and oriented x3. Blood pressure is 145/68, heart rate 59 per minute. She is afebrile. Examination of the heart: S1, S2. Examination of the lungs: Bilateral breath sounds are heard. Abdomen is soft, nontender. Examination of lower extremities shows no significant edema. SOIL SAMPLER exam is grossly intact. LABS: Show sodium 125, potassium 5.1, CO2 is 18, BUN 88, serum creatinine 4.28. Chest x-ray from yesterday showed continuing bibasilar airspace disease, small left effusion and air changes suggestive of COPD. ASSESSMENT: 1. Acute kidney injury, most likely secondary to recent diuresis. Will check urinalysis. We also need to rule out urine retention. A postvoid residual will be checked and we will get an ultrasound of the kidneys. 2. Chronic kidney disease stage IV to IIIB with previous creatinine at about 1.8-2 mg/dL. Etiology is likely nephrosclerosis. UA has been quite benign. 3. Hyponatremia, most likely hypovolemic. Will start saline and repeat electrolytes this evening. 4. Congestive heart failure/volume overload on initial admission, currently improved. PLAN: Hold all diuretics. Start normal saline. Repeat electrolytes this evening. Obtain ultrasound of the kidneys. Of note is that patient had a CT scan done in November which showed severely atrophic left kidney. We will check a postvoid residual as well. Continue to avoid nephrotoxic agents. Repeat labs tonight and in a.m. MMVINCENT / TRINAN: [id number] /
[2018-01-25 20:49] LABS: Glucose,Whole Blood 194 mg/dL (75-99)
[2018-01-25 21:36] LABS: Potassium 5.5 mmol/L (3.5-5.1)
[2018-01-26] MEDS: ZOLPIDEM 5 MG TAB PO PRN (00:37)
[2018-01-26] MEDS: SODIUM CHLORIDE 0.9% 1,000 ML IV SCH ×2 (00:55→12:37)
--- NOTE | 2018-01-26 05:53 | PN ---
PROGRESS NOTE DATE OF SERVICE: 01/25/18. PRESENTING COMPLAINT: Short of breath. INTERVAL HISTORY: This patient with COPD exacerbation, CHF exacerbation. Dialysis was done. Breathing has been better, but the patient has got renal failure for which nephrology has been consulted. Otherwise, patient tolerating a diet. REVIEW OF SYSTEMS: Done for constitutional, cardiovascular, GI, pulmonary; relevant findings as above. CURRENT MEDICATIONS: Reviewed. Lasix has been discontinued. Started on fluids earlier today. PHYSICAL EXAMINATION: Temperature 97.9, pulse 59, respiratory 18, blood pressure 140/68, pulse 97 percent on room air. GENERAL APPEARANCE: Sitting up, comfortable. EYES: Pupils equal. Conjunctivae normal. HEENT: External appearance of nose and ears normal. Oral cavity normal. NECK: JVD not raised. Mass not palpable. RESPIRATORY: Effort normal. Lungs, decreased breath sounds. Minimal wheezing. CARDIOVASCULAR: First and second sounds, no edema. ABDOMEN: Soft, nontender. Liver and spleen not palpable. PSYCHIATRY: Alert and oriented x3. Mood and affect normal. INVESTIGATIONS: Sodium 123, potassium 5.5, BUN 99, creatinine 4.8. Renal ultrasound shows left renal cortical atrophy. ASSESSMENT: 1. Acute chronic obstructive pulmonary disease exacerbation in an ex-smoker, improved. 2. Doubtful pneumonia. 3. Acute on chronic congestive heart failure exacerbation from diastolic dysfunction. Ejection fraction 50-55 percent from hypertensive heart disease, present on admission, now euvolemic. 4. Acute renal failure, progressive from IV diuresis likely prerenal. 5. Paroxysmal atrial fibrillation currently in sinus rhythm on Eliquis. 6. Chronic kidney disease with hypertensive nephrosclerosis stage III. 7. Chronic left atrophic kidney. 8. Hypertensive heart disease. 9. Chronic rheumatoid arthritis. 10.Hyperlipidemia. 11.Essential hypertension. 12.Anxiety and depression, not otherwise specified. 13.Hyperkalemia from acute renal failure. 14.Hyponatremia likely hypovolemic. PLAN: Patient is started on normal saline. Diuretics course held. Keep a close eye on urine output. Nephrology, Dr. Vargas, saw the patient earlier today. Care was discussed the patient. Follow closely. MMODL / IJN: [id number] /
[2018-01-26 07:22] LABS: Glucose,Whole Blood 95 mg/dL (75-99)
[2018-01-26] MEDS: POTASSIUM CHLORIDE ER 20 MEQ TAB.ER PO SCH (07:28)
[2018-01-26] MEDS: INSULIN ASPART 100 UNIT/ML 1 ML 10 ML VIAL SQ SCH ×4 (07:33→21:16)
[2018-01-26] MEDS: ALLOPURINOL 100 MG TAB PO SCH (08:00)
[2018-01-26] MEDS: CALCITRIOL 0.25 MCG CAP PO SCH (08:00)
[2018-01-26] MEDS: SERTRALINE 50 MG TAB PO SCH (08:00)
[2018-01-26] MEDS: ATORVASTATIN 20 MG TAB PO SCH (08:00)
[2018-01-26] MEDS: APIXABAN 2.5 MG TABLET PO SCH ×2 (08:00→21:52)
[2018-01-26] MEDS: predniSONE 20 MG TAB PO SCH (08:00)
[2018-01-26] MEDS: METOPROLOL TARTRATE 50 MG TAB PO SCH ×2 (08:00→21:51)
[2018-01-26] MEDS: hydrALAZINE HCL 50 MG TAB PO SCH ×3 (08:00→21:51)
[2018-01-26] MEDS: AMIODARONE 100 MG TAB PO SCH (08:01)
[2018-01-26] MEDS: amLODIPine 10 MG TAB PO SCH (08:01)
[2018-01-26] MEDS: IPRATROPIUM-ALBUTEROL 3 ML NEB INHALATION SCH ×4 (08:13→19:23)
[2018-01-26] MEDS: BUDESONIDE 1 MG/2 ML NEBU INHALATION SCH ×2 (08:13→19:23)
[2018-01-26] MEDS: FORMOTEROL FUMARATE 20 MCG/2 ML NEBU INHALATION SCH ×2 (08:13→19:23)
[2018-01-26 09:56] LABS: Calcium 8.8 mg/dL (8.4-10.2); Potassium 5.4 mmol/L (3.5-5.1)
[2018-01-26 12:03] LABS: Glucose,Whole Blood 107 mg/dL (75-99)
--- NOTE | 2018-01-26 13:19 | P.PN ---
Subjective Progress Note Date: 01/26/18 Principal diagnosis: Acute exacerbation of chronic diastolic congestive heart failure as well as an acute exacerbation of chronic obstructive pulmonary disease This is a 72-year-old white female patient with past medical history of COPD, with FEV1 of 42%, chronic congestive heart failure with diastolic dysfunction, pseudotumor of the right lung, essential hypertension, rheumatoid arthritis, osteoarthritis, previous CVA/TIA, who presented to the emergency department today on 01/21/2018 at 4:00 in the morning with complaints of increasing shortness of breath. She states her shortness of breath has gradually become worse, over the past couple of days or so. She denies having any chest pain, no increase in wheezing, no phlegm production. Patient does have a congested cough. She denies any fever or chills, denies any swelling in bilateral extremities. Patient is on nebulizer treatments at home, in addition to her rescue inhaler. Patient has a history of atrial fibrillation, status post successful cardioversion in July 2017. She is on chronic anticoagulation with Eliquis. She remains in sinus rhythm on the monitor. EKG showed normal sinus rhythm with left ventricular hypertrophy with repolarization abnormality, and could not rule out septal infarct of undetermined age. Chest x-ray was completed, and showed airspace consolidation within the right lower lobe, small bilateral pleural effusions, increased interstitial markings and mild interstitial edema. There is a rounded well-circumscribed opacity within the right midlung likely representing fluid tracking within the right major fissure. After reviewing previous chest x-rays from 09/24/2017, and 09/09/2017 , the pseudotumor in the right midlung area seems to be more prominent during exacerbations of CHF. Labs did not show any leukocytosis, WBC is 8.3, hemoglobin is 8.5, INR is 1.3, d-dimer was negative for 0.49, sodium is 1:30, potassium is 3.8, chloride is 94, B1 is 34, creatinine is 1.5. Cardiac enzymes and troponins were negative 1, proBNP is significantly elevated at 12,200. Patient has positive distention of jugular veins bilaterally, no significant peripheral edema, congestive cough. In addition patient has been orthopneic. Patient was started on empiric antibiotics in the form of Zithromax and Rocephin , metolazone 2.5 mg on Thursday and Thursday. She received 1 dose of IV Lasix. We are asked to see the patient in consultation for shortness of breath. On 01/22/2018 patient seen in follow-up on medical surgical floor. States her breathing is improving, although patient does become short of breath with ambulation. No acute distress, pulse ox on 3 L per nasal Was 97%, patient is afebrile, patient has no occasional congestive cough, not able to bring up any sputum, lung sounds are positive for coarse crackles over right posterior lower lobe, diminished breath sounds over left base. Blood cultures remain negative, patient has been diuresed with IV Lasix, and Zaroxolyn, and today's chest x-ray shows interval resolution of the right lung ovoid lesion, the pseudotumor. There is improved right basilar infiltrate and/or atelectasis, improved but persistent small left pleural effusion. Patient still has digital JVD. Overall feeling and breathing better, antibiotics were discontinued per attending physician. On today's lab work the PVC is within normal limits at 8.4 , hemoglobin is 8.4, sodium is 131, chloride is 95, B1 is 43, creatinine is 1.85 , there has been the worsening of the renal profile, we will cut down the IV Lasix to 40 mg once daily. The patient was seen again today 01/23/2018 in follow-up on the regular medical floor. She is currently resting quite comfortably in bed. She is still short of breath. Still somewhat bronchospastic and wheezy. Still dyspneic on exertion. Slightly improved today as compared to yesterday. She is maintaining good O2 saturations in the upper 90s on room air. She's been afebrile. No tachypnea. Blood cultures reveal no growth. Today's chest x-ray shows continued basilar airspace disease slightly worse on the left with a left- sided effusion and borderline cardiomegaly. She remains on bronchodilators and IV Solu-Medrol. She remains on IV diuretics. On 01/24/2018 patient seen in follow-up on medical surgical floor. Patient still sounds bronchospastic today, clinically patient states her breathing has improved. 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 Today's labs show sodium of 129, potassium is 4.7, chloride is 90, BUN is 72, and creatinine is 3.63, there has been worsening of the patient's renal profile, yesterday patient was given additional dose of IV Lasix, patient has been voiding, her net fluid balance is hard to estimate, however her weight continues to trend up, today is 63.8 kg, and her admission weight was 61.2 kg. No bilateral lower extremity edema, patient still has positive JVD bilaterally. She continues on IV Solu-Medrol, currently at 40 mg every 8 hours. We will add Pulmicort and Perforomist in addition to patient's DuoNeb. On January 25 2018 patient seen in follow-up on medical surgical floor. She denies any distress, denies any worsening shortness of breath, room air pulse ox is 96%, patient is afebrile, hemodynamically stable, respirations are even and nonlabored, lung sounds are clear, no rhonchi, no rales or wheezing noted. Lasix remains on hold, today's labs shows worsening of renal profile, BUN is 88 , creatinine is 4.28, nephrology has been consulted. No chest pain, no shortness of breath. She is tolerating oral intake. He is requesting to go home today. The patient is seen again today 01/26/2018 on the regular medical floor. She is awake and alert in no acute distress. She is currently sitting up in chair at the bedside. She denies any cough or congestion. He continues to maintain good O2 saturations in the upper 90s on room air. She's been afebrile. Hemodynamically stable. Chest x-ray is pending and she is currently on DuoNeb inhalations, Pulmicort and Perforomist inhalations. Sodium 123, potassium 5.4, creatinine increased to 5.08. Currently off diuretics. Nephrology on the case. Objective - Vital Signs Vital signs: Vital Signs Temp 98.2 F 01/26/18 06:36 Pulse 88 01/26/18 11:59 Resp 16 01/26/18 11:59 BP 170/77 01/26/18 06:36 Pulse Ox 97 01/26/18 08:14 Intake & Output 01/25/18 01/26/18 01/26/18 18:59 06:59 18:59 Intake Total 200 Balance 200 Weight 65.2 kg Intake: Oral 200 Other: # Voids 2 2 - Exam GENERAL EXAM: Alert, pleasant 72-year-old white female comfortable in no apparent distress. HEAD: Normocephalic/atraumatic. EYES: Normal reaction of pupils, equal size. Conjunctiva pink, sclera white. NOSE: Clear with pink turbinates. THROAT: No erythema or exudates. NECK: No masses, no thyroid enlargement, no adenopathy. Positive JVD bilaterally CHEST: No chest wall deformity. Symmetrical expansion. LUNGS: Diminished breath sounds, coarse crackles over right posterior lower lobe , diminished breath sounds on the left side at the base CVS: Regular rate and rhythm, normal S1 and S2, no gallops, no murmurs, no rubs ABDOMEN: Soft, nontender. No hepatosplenomegaly, normal bowel sounds, no guarding or rigidity. EXTREMITIES: No clubbing, no edema, no cyanosis, 2+ pulses and upper and lower extremities. MUSCULOSKELETAL: Muscle strength and tone normal. SPINE: No scoliosis or deformity SKIN: No rashes CENTRAL NERVOUS SYSTEM: Alert and oriented -3. No focal deficits, tone is normal in all 4 extremities. PSYCHIATRIC: Alert and oriented -3. Appropriate affect. Intact judgment and insight. - Labs CBC & Chem 7: 01/24/18 06:54 01/26/18 09:22 Labs: Abnormal Lab Results - Last 24 Hours (Table) 01/25/18 01/25/18 01/25/18 Range/Units 13:40 17:07 20:48 Sodium (137-145) mmol/L Potassium (3.5-5.1) mmol/L Chloride (98-107) mmol/L Carbon Dioxide (22-30) mmol/L BUN (7-17) mg/dL Creatinine (0.52-1.04) mg/dL Glucose (74-99) mg/dL POC Glucose (mg/dL) 132 H 194 H (75-99) mg/dL Urine Appearance Cloudy H (Clear) Urine Protein Trace H (Negative) Ur Squamous Epith Cells 7 H (0-4) /hpf Urine Mucus Rare H (None) /hpf 01/25/18 01/26/18 01/26/18 Range/Units 21:03 09:22 12:01 Sodium 123 L 123 L (137-145) mmol/L Potassium 5.5 H 5.4 H (3.5-5.1) mmol/L Chloride 89 L 90 L (98-107) mmol/L Carbon Dioxide 20 L 18 L (22-30) mmol/L BUN 99 H 104 H* (7-17) mg/dL Creatinine 4.80 H 5.08 H (0.52-1.04) mg/dL Glucose 158 H (74-99) mg/dL POC Glucose (mg/dL) 107 H (75-99) mg/dL Urine Appearance (Clear) Urine Protein (Negative) Ur Squamous Epith Cells (0-4) /hpf Urine Mucus (None) /hpf Microbiology - Last 24 Hours (Table) 01/21/18 07:59 Blood Culture - Preliminary Blood No Growth after 120 hours 01/21/18 07:53 Blood Culture - Preliminary Blood No Growth after 120 hours Assessment and Plan Assessment: Assessment: #1. Progressive dyspnea, orthopnea related to acute exacerbation of congestive heart failure, with diastolic dysfunction #2. Acute exacerbation of chronic obstructive pulmonary disease. #3. History of severe COPD, with underlying FEV1 of 43% of predicted. #4. Right midlung pseudotumor with fluid in the major fissure seen on the chest x-ray, compared to previous studies, and appears to be more prominent during times of CHF exacerbation. Right basilar infiltrate, possibly related to atelectasis, cannot entirely rule out pneumonia #5. History of A. fib, status post successful cardioversion in July 2017 currently in sinus rhythm, on chronic anticoagulation with Eliquis #6. History of chronic kidney disease secondary to nephrosclerosis #7. Hypertension #8. Hyperlipidemia #9. Rheumatoid arthritis #10. History of nicotine dependence, currently in remission #11. Chronic anemia #12. Hyponatremia, serum sodium is 130 Plan: The patient was seen and evaluated by Dr. Parmar. Chest x-ray is pending. Labs reviewed.. Continue bronchodilators. We'll continue to follow and make further recommendations based on her clinical status. I, the cosigning physician, performed a history & physical examination of the patient. Lungs sounds with crackles in the bilateral bases more so on the left. Maintaining good O2 saturations in the 90s on 2 L/m per nasal. I discussed the assessment and plan of care with my nurse practitioner, Shakila Munson. I attest to the above note as dictated by her.
--- NOTE | 2018-01-26 13:25 | XR ---
EXAMINATION TYPE: XR chest 1V portable DATE OF EXAM: 01/26/2018 COMPARISON: 01/24/2018 HISTORY: Cough and shortness of breath TECHNIQUE: Single frontal view of the chest is obtained. FINDINGS: There is right upper lobe infiltrate. Nodular density overlying the right midlung likely r elated to nipple shadow. Left lower lobe subsegmental infiltrate and small effusion noted and there i s hyperinflation suggestive COPD. Atherosclerotic change aorta. No pneumothorax. Heart mildly enlarge d. Diffuse osteopenia. IMPRESSION: 1. New right upper lobe area of infiltrate correlate for pneumonia. Follow to resolution to exclude u nderlying neoplasm. 2. Left lower lobe infiltrate and small effusion. 3. COPD
[2018-01-26 17:36] LABS: Glucose,Whole Blood 129 mg/dL (75-99)
[2018-01-26 18:24] LABS: Calcium 9.1 mg/dL (8.4-10.2); Potassium 5.6 mmol/L (3.5-5.1)
[2018-01-26] MEDS ORDERED: SODIUM POLYSTYRENE SULFONATE 15 GM/60 ML BOTTLE PO STA ×2 (20:22→21:11)
[2018-01-26 21:00] LABS: Glucose,Whole Blood 123 mg/dL (75-99)
--- NOTE | 2018-01-26 21:53 | PN ---
PROGRESS NOTE Patient is seen for followup for acute kidney injury. Her renal function significantly deteriorated over the past 2-3 days with serum creatinine going up to 5.0 mg/dL this morning. Patient was maintained on IV fluids at 50 mL/hour for 12 hours. Her urine output has been on the lower side. Post-void residual did not reveal significant urine retention. The patient denies significant shortness of breath. She just does not feel well. Her blood pressure is not low. On examination this morning, the blood pressure was 170/77, heart rate of 58 per minute. She is afebrile. EXAMINATION OF THE HEART: S1, S2. EXAMINATION OF LUNGS: Bilateral breath sounds are heard. ABDOMEN: Soft, non-tender. Examination of lower extremities shows no significant edema. FORMWORK CARPENTER exam is grossly intact. Labs reveal sodium 123, potassium 5.4, chloride 90, CO2 18, BUN 104, serum creatinine 5.04. ASSESSMENT: 1. Acute kidney injury, most likely associated with recent diuresis. I will increase the IV fluids. I also ordered a chest x-ray, which did come back and does not show any significant CHF. I will repeat labs this evening. 2. Hyperkalemia associated with acute kidney injury. 3. Hyponatremia, most likely hypovolemic. Continue with normal saline and repeat labs this evening. Check urine sodium and urine osmolality. 4. Hypertension. Blood pressure is currently elevated. Patient has no evidence of hypotension. 5. Chronic kidney disease mineral bone disorder, maintained on calcitriol once a day and Norvasc. PLAN: Discontinue potassium. Maintain patient on normal saline. Increase fluids to 70 mL/hour. Repeat labs this a.m. Check random urine sodium. Will also give her a dose of Kayexalate if her potassium remains elevated. Currently patient does not appear to be volume-overloaded. MMODL / IJN: [id number] /
--- NOTE | 2018-01-26 22:20 | PN ---
PROGRESS NOTE DATE OF SERVICE: 01/26/2018 PRESENTING COMPLAINT: Tired. INTERVAL HISTORY: Patient presented with severe COPD exacerbation, CHF exacerbation. Diuresis was done. The patient has gone into renal failure, which has been progressively getting worse. The patient does feel weak, tired, run down. Renal function is worsening. REVIEW OF SYSTEMS: Done for constitutional, cardiovascular, GI, pulmonary; relevant findings as above. CURRENT MEDICATIONS: Reviewed that include normal saline at 70 mL an hour. EXAMINATION: Afebrile, pulse 58, respirations 16, blood pressure 182/70, pulse ox 96% on 2L. GENERAL APPEARANCE: Lying in bed, awake, tired. EYES: Pupils equal. Conjunctivae normal. HEENT: External nose and ears normal. Oral cavity normal. NECK: JVD not raised. Mass not palpable. RESPIRATORY: Effort normal. LUNGS: Decreased breath sounds. Minimal wheezing. CARDIOVASCULAR: First and second sounds normal. No edema. ABDOMEN: Soft, nontender. Liver and spleen not palpable. PSYCHIATRY: Alert and oriented x3. Mood and affect were normal. INVESTIGATIONS: Potassium 5.6, bicarb 17, BUN 107, creatinine 5.40. ASSESSMENT: 1. Acute chronic obstructive pulmonary disease exacerbation in an ex-smoker, improved. 2. Doubt pneumonia. 3. Acute on chronic congestive heart failure exacerbation from diastolic dysfunction, ejection fraction 50%-55% from hypertensive heart disease, now stable. 4. Acute renal failure, progressive. IV diuresis, likely prerenal. 5. Paroxysmal atrial fibrillation. Patient in sinus rhythm on Eliquis. 6. Chronic kidney disease from hypertensive nephrosclerosis stage 3 at baseline. 7. Chronic left atrophic kidney. 8. Hypertensive heart disease. 9. Chronic rheumatoid arthritis. 10.Hyperlipidemia. 11.Essential hypertension. 12.Anxiety, depression, not otherwise specified. 13.Hyperkalemia from acute renal failure, worsening. 14.Hyponatremia, likely hypovolemic. PLAN: Continue the patient on saline. Care was discussed with the patient. Will give a dose of Kayexalate, keep a close eye. MMODL / IJN: [id number] /
[2018-01-27] MEDS: SODIUM CHLORIDE 0.9% 1,000 ML IV SCH (03:10)
[2018-01-27] MEDS: IPRATROPIUM-ALBUTEROL 3 ML NEB INHALATION SCH ×5 (05:37→18:59)
--- NOTE | 2018-01-27 06:16 | XR ---
EXAMINATION TYPE: XR chest 1V portable DATE OF EXAM: 01/27/2018 COMPARISON: Yesterday HISTORY: Respiratory distress TECHNIQUE: Single frontal view of the chest is obtained. FINDINGS: There are patchy bilateral pulmonary interstitial and alveolar infiltrates. There is some coalescent density in the right lung periphery. The heart appears enlarged. There are Rozina B lines. There is pulmonary vascular congestion. The bony thorax is intact. There is slight blunting of costo phrenic angles. IMPRESSION: There is increasing pulmonary edema compared to yesterday and consistent with congestive heart failure or RDS.
[2018-01-27] MEDS ORDERED: FUROSEMIDE 10 MG/ML 10 ML VIAL IV STA ×2 (06:19→07:41)
[2018-01-27 06:41] LABS: Anisocytosis Slight; Basophils % (A) 0 %; Eosinophils % (A) 0 %; HCT 26.8 % (34.0-46.0); HGB 8.5 gm/dL (11.4-16.0); Lymphocytes # (A) 0.2 k/uL (1.0-4.8); Lymphocytes % (A) 1 %; MCH 30.5 pg (25.0-35.0); MCHC 31.8 g/dL (31.0-37.0); MCV 95.8 fL (80.0-100.0); Mean Platelet Volume 7.5; Monocytes # (A) 2.4 k/uL (0-1.0); Monocytes % (A) 8 %; Neutrophils # (A) 25.5 k/uL (1.3-7.7); Neutrophils % (A) 89 %; Platelet Count 368 k/uL (150-450); RDW 16.2 % (11.5-15.5); WBC 28.6 k/uL (3.8-10.6)
[2018-01-27 06:48] LABS: Glucose,Whole Blood 110 mg/dL (75-99)
[2018-01-27 06:50] LABS: Calcium 8.7 mg/dL (8.4-10.2); Magnesium 1.6 mg/dL (1.6-2.3); Phosphorus 6.2 mg/dL (2.5-4.5); Potassium 5.3 mmol/L (3.5-5.1)
[2018-01-27] MEDS: FORMOTEROL FUMARATE 20 MCG/2 ML NEBU INHALATION SCH ×2 (08:09→18:59)
[2018-01-27] MEDS: BUDESONIDE 1 MG/2 ML NEBU INHALATION SCH ×2 (08:09→18:59)
[2018-01-27 08:12] LABS: Appearance,Urine Clear (Clear); Bilirubin,Urine Negative (Negative); Blood,Urine Negative (Negative); Color,Urine Yellow; Glucose,Urine (UA) Negative (Negative); Ketones,Urine Negative (Negative); Leukocyte Esterase,Urine Negative (Negative); Nitrite,Urine Negative (Negative); Protein,Urine Trace (Negative); Specific Gravity,Urine 1.012 (1.001-1.035); Urobilinogen,Urine <2.0 mg/dL (<2.0)
[2018-01-27] MEDS ORDERED: MORPHINE SULFATE 2 MG/ML SYRINGE IVP STA (08:12)
[2018-01-27] MEDS: INSULIN ASPART 100 UNIT/ML 1 ML 10 ML VIAL SQ SCH ×4 (08:13→20:48)
[2018-01-27] MEDS: APIXABAN 2.5 MG TABLET PO SCH (08:29)
[2018-01-27] MEDS: METOPROLOL TARTRATE 50 MG TAB PO SCH ×2 (08:29→21:04)
[2018-01-27] MEDS: amLODIPine 10 MG TAB PO SCH (08:29)
[2018-01-27] MEDS: predniSONE 20 MG TAB PO SCH (08:29)
[2018-01-27] MEDS: ATORVASTATIN 20 MG TAB PO SCH (08:29)
[2018-01-27] MEDS: SERTRALINE 50 MG TAB PO SCH (08:29)
[2018-01-27] MEDS: hydrALAZINE HCL 50 MG TAB PO SCH ×3 (08:29→21:04)
[2018-01-27] MEDS: ALLOPURINOL 100 MG TAB PO SCH (08:29)
[2018-01-27] MEDS: AMIODARONE 100 MG TAB PO SCH (08:30)
[2018-01-27] MEDS: CALCITRIOL 0.25 MCG CAP PO SCH (08:30)
--- NOTE | 2018-01-27 08:33 | P.PN ---
<Sasha Knutson M - Last Filed: 01/27/18 08:21> Subjective Progress Note Date: 01/27/18 Principal diagnosis: Acute exacerbation of congestive heart failure with diastolic dysfunction, COPD This is a 72-year-old white female patient with past medical history of COPD, with FEV1 of 42%, chronic congestive heart failure with diastolic dysfunction, pseudotumor of the right lung, essential hypertension, rheumatoid arthritis, osteoarthritis, previous CVA/TIA, who presented to the emergency department today on 01/21/2018 at 4:00 in the morning with complaints of increasing shortness of breath. She states her shortness of breath has gradually become worse, over the past couple of days or so. She denies having any chest pain, no increase in wheezing, no phlegm production. Patient does have a congested cough. She denies any fever or chills, denies any swelling in bilateral extremities. Patient is on nebulizer treatments at home, in addition to her rescue inhaler. Patient has a history of atrial fibrillation, status post successful cardioversion in July 2017. She is on chronic anticoagulation with Eliquis. She remains in sinus rhythm on the monitor. EKG showed normal sinus rhythm with left ventricular hypertrophy with repolarization abnormality, and could not rule out septal infarct of undetermined age. Chest x-ray was completed, and showed airspace consolidation within the right lower lobe, small bilateral pleural effusions, increased interstitial markings and mild interstitial edema. There is a rounded well-circumscribed opacity within the right midlung likely representing fluid tracking within the right major fissure. After reviewing previous chest x-rays from 09/24/2017, and 09/09/2017 , the pseudotumor in the right midlung area seems to be more prominent during exacerbations of CHF. Labs did not show any leukocytosis, WBC is 8.3, hemoglobin is 8.5, INR is 1.3, d-dimer was negative for 0.49, sodium is 1:30, potassium is 3.8, chloride is 94, B1 is 34, creatinine is 1.5. Cardiac enzymes and troponins were negative 1, proBNP is significantly elevated at 12,200. Patient has positive distention of jugular veins bilaterally, no significant peripheral edema, congestive cough. In addition patient has been orthopneic. Patient was started on empiric antibiotics in the form of Zithromax and Rocephin , metolazone 2.5 mg on Thursday and Thursday. She received 1 dose of IV Lasix. We are asked to see the patient in consultation for shortness of breath. On 01/22/2018 patient seen in follow-up on medical surgical floor. States her breathing is improving, although patient does become short of breath with ambulation. No acute distress, pulse ox on 3 L per nasal Was 97%, patient is afebrile, patient has no occasional congestive cough, not able to bring up any sputum, lung sounds are positive for coarse crackles over right posterior lower lobe, diminished breath sounds over left base. Blood cultures remain negative, patient has been diuresed with IV Lasix, and Zaroxolyn, and today's chest x-ray shows interval resolution of the right lung ovoid lesion, the pseudotumor. There is improved right basilar infiltrate and/or atelectasis, improved but persistent small left pleural effusion. Patient still has digital JVD. Overall feeling and breathing better, antibiotics were discontinued per attending physician. On today's lab work the PVC is within normal limits at 8.4 , hemoglobin is 8.4, sodium is 131, chloride is 95, B1 is 43, creatinine is 1.85 , there has been the worsening of the renal profile, we will cut down the IV Lasix to 40 mg once daily. On 01/24/2018 patient seen in follow-up on medical surgical floor. Patient still sounds bronchospastic today, clinically patient states her breathing has improved. 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 Today's labs show sodium of 129, potassium is 4.7, chloride is 90, BUN is 72, and creatinine is 3.63, there has been worsening of the patient's renal profile, yesterday patient was given additional dose of IV Lasix, patient has been voiding, her net fluid balance is hard to estimate, however her weight continues to trend up, today is 63.8 kg, and her admission weight was 61.2 kg. No bilateral lower extremity edema, patient still has positive JVD bilaterally. She continues on IV Solu-Medrol, currently at 40 mg every 8 hours. We will add Pulmicort and Perforomist in addition to patient's DuoNeb. On the 2017 patient seen in follow-up on medical surgical floor. She denies any distress, denies any worsening shortness of breath, room air pulse ox is 96%, patient is afebrile, hemodynamically stable, respirations are even and nonlabored, lung sounds are clear, no rhonchi, no rales or wheezing noted. Lasix remains on hold, today's labs shows worsening of renal profile, BUN is 88 , creatinine is 4.28, nephrology has been consulted. No chest pain, no shortness of breath. She is tolerating oral intake. He is requesting to go home today. The patient is seen again today 01/26/2018 on the regular medical floor. She is awake and alert in no acute distress. She is currently sitting up in chair at the bedside. She denies any cough or congestion. He continues to maintain good O2 saturations in the upper 90s on room air. She's been afebrile. Hemodynamically stable. Chest x-ray is pending and she is currently on DuoNeb inhalations, Pulmicort and Perforomist inhalations. Sodium 123, potassium 5.4, creatinine increased to 5.08. Currently off diuretics. Nephrology on the case. On 01/27/2018 patient is been transferred to the intensive care early this morning, after rapid response team was called for concern of worsening shortness of breath. Stat chest x-ray was taken, and showed increasing pulmonary edema compared to yesterday's exam, consistent with congestive heart failure or ARDS. Patient is in moderately severe respiratory distress, tachypneic, anxious, and complaining of dyspnea, denies chest pain, lung sounds are positive for diffuse rhonchi throughout the lung caceres, patient was found to be hypoxic, with a pulse ox of 88%. Patient was placed on BiPAP support, currently at pressures of 12 6, and 50%. She was given a dose of IV Lasix 80 mg per nephrology, and has made very little urine, in order of 60 mL. Repeat dose of Lasix will be given, today's lab work reveals acute leukocytosis, WBC of 28.6, hemoglobin is 8.5, sodium is 125, potassium is 5.3, chloride is 91, CO2 is 19, B1 is 108, and creatinine is 6.49, there has been a steady decline of her renal function, and nephrology is planning on initiating hemodialysis. Plasma lactic acid was 0.5. He is currently in sinus rhythm, blood pressure is 184/77 with a mean of 112. Low-grade fevers this morning of 99.5F. Patient was transferred to the intensive care, where she is currently on BiPAP support. Vascular surgery has been consulted for emergent placement of temporary hemodialysis catheter. Objective - Vital Signs Vital signs: Vital Signs Temp 99.1 F 01/27/18 08:00 Pulse 73 01/27/18 08:10 Resp 26 H 01/27/18 08:00 BP 185/86 01/27/18 08:00 Pulse Ox 97 01/27/18 08:00 Intake & Output 01/26/18 01/27/18 01/27/18 18:59 06:59 18:59 Intake Total 400 Output Total 125 75 Balance 400 -125 -75 Intake: Oral 400 Output: Urine 125 75 Other: # Voids 2 1 # Bowel Movements 0 - Exam GENERAL EXAM: Alert, pleasant 72-year-old white female comfortable in moderate to severe amount of respiratory distress, currently on BiPAP support, with pressures of 12 6 and 50%, with a pulse ox of 94%. Seen in the intensive care, in the treatment room. HEAD: Normocephalic/atraumatic. EYES: Normal reaction of pupils, equal size. Conjunctiva pink, sclera white. NOSE: Clear with pink turbinates. THROAT: No erythema or exudates. NECK: No masses, no thyroid enlargement, no adenopathy. Positive JVD bilaterally CHEST: No chest wall deformity. Symmetrical expansion. LUNGS: Lung sounds are positive for diffuse rhonchi throughout the lung caceres CVS: Regular rate and rhythm, normal S1 and S2, no gallops, no murmurs, no rubs ABDOMEN: Soft, nontender. No hepatosplenomegaly, normal bowel sounds, no guarding or rigidity. EXTREMITIES: No clubbing, no edema, no cyanosis, 2+ pulses and upper and lower extremities. MUSCULOSKELETAL: Muscle strength and tone normal. SPINE: No scoliosis or deformity SKIN: No rashes CENTRAL NERVOUS SYSTEM: Alert and oriented -3. No focal deficits, tone is normal in all 4 extremities. PSYCHIATRIC: Alert and oriented -3. Appropriate affect. Intact judgment and insight. - Labs CBC & Chem 7: 01/27/18 06:25 09/12/18 06:25 Labs: Abnormal Lab Results - Last 24 Hours (Table) 01/26/18 01/26/18 01/26/18 Range/Units 09:22 12:01 17:18 WBC (3.8-10.6) k/uL RBC (3.80-5.40) m/uL Hgb (11.4-16.0) gm/dL Hct (34.0-46.0) % RDW (11.5-15.5) % Neutrophils # (1.3-7.7) k/uL Lymphocytes # (1.0-4.8) k/uL Monocytes # (0-1.0) k/uL Sodium 123 L (137-145) mmol/L Potassium 5.4 H (3.5-5.1) mmol/L Chloride 90 L (98-107) mmol/L Carbon Dioxide 18 L (22-30) mmol/L BUN 104 H* (7-17) mg/dL Creatinine 5.08 H (0.52-1.04) mg/dL Glucose (74-99) mg/dL POC Glucose (mg/dL) 107 H 129 H (75-99) mg/dL Plasma Lactic Acid Erich (0.7-2.0) mmol/L Phosphorus (2.5-4.5) mg/dL Urine Protein (Negative) 01/26/18 01/26/18 01/27/18 Range/Units 17:56 20:59 06:25 WBC 28.6 H (3.8-10.6) k/uL RBC 2.80 L (3.80-5.40) m/uL Hgb 8.5 L (11.4-16.0) gm/dL Hct 26.8 L (34.0-46.0) % RDW 16.2 H (11.5-15.5) % Neutrophils # 25.5 H (1.3-7.7) k/uL Lymphocytes # 0.2 L (1.0-4.8) k/uL Monocytes # 2.4 H (0-1.0) k/uL Sodium 123 L (137-145) mmol/L Potassium 5.6 H (3.5-5.1) mmol/L Chloride 89 L (98-107) mmol/L Carbon Dioxide 17 L (22-30) mmol/L BUN 107 H* (7-17) mg/dL Creatinine 5.40 H (0.52-1.04) mg/dL Glucose 111 H (74-99) mg/dL POC Glucose (mg/dL) 123 H (75-99) mg/dL Plasma Lactic Acid Erich (0.7-2.0) mmol/L Phosphorus (2.5-4.5) mg/dL Urine Protein (Negative) 01/27/18 01/27/18 01/27/18 Range/Units 06:25 06:32 06:46 WBC (3.8-10.6) k/uL RBC (3.80-5.40) m/uL Hgb (11.4-16.0) gm/dL Hct (34.0-46.0) % RDW (11.5-15.5) % Neutrophils # (1.3-7.7) k/uL Lymphocytes # (1.0-4.8) k/uL Monocytes # (0-1.0) k/uL Sodium 125 L (137-145) mmol/L Potassium 5.3 H (3.5-5.1) mmol/L Chloride 91 L (98-107) mmol/L Carbon Dioxide 19 L (22-30) mmol/L BUN 108 H* (7-17) mg/dL Creatinine 6.49 H (0.52-1.04) mg/dL Glucose 101 H (74-99) mg/dL POC Glucose (mg/dL) 110 H (75-99) mg/dL Plasma Lactic Acid Erich 0.5 L (0.7-2.0) mmol/L Phosphorus 6.2 H (2.5-4.5) mg/dL Urine Protein (Negative) 01/27/18 Range/Units 07:45 WBC (3.8-10.6) k/uL RBC (3.80-5.40) m/uL Hgb (11.4-16.0) gm/dL Hct (34.0-46.0) % RDW (11.5-15.5) % Neutrophils # (1.3-7.7) k/uL Lymphocytes # (1.0-4.8) k/uL Monocytes # (0-1.0) k/uL Sodium (137-145) mmol/L Potassium (3.5-5.1) mmol/L Chloride (98-107) mmol/L Carbon Dioxide (22-30) mmol/L BUN (7-17) mg/dL Creatinine (0.52-1.04) mg/dL Glucose (74-99) mg/dL POC Glucose (mg/dL) (75-99) mg/dL Plasma Lactic Acid Erich (0.7-2.0) mmol/L Phosphorus (2.5-4.5) mg/dL Urine Protein Trace H (Negative) Microbiology - Last 24 Hours (Table) 01/21/18 07:59 Blood Culture - Preliminary Blood No Growth after 120 hours 01/21/18 07:53 Blood Culture - Preliminary Blood No Growth after 120 hours Assessment and Plan Plan: Assessment: #1. Acute hypoxemic respiratory failure secondary to acute pulmonary edema, consistent with acute exacerbation of congestive heart failure with systolic dysfunction, fluid overload #2. Leukocytosis, possibly stress induced. Patient has a low-grade fever, and lactic acid is 0.5 #3. Acute kidney injury likely related to diuresis #4. Acute exacerbation of chronic obstructive pulmonary disease. #5. History of severe COPD, with underlying FEV1 of 43% of predicted. #6. Right midlung pseudotumor with fluid in the major fissure seen on the chest x-ray, compared to previous studies, and appears to be more prominent during times of CHF exacerbation. Right basilar infiltrate, possibly related to atelectasis, cannot entirely rule out pneumonia #7. History of A. fib, status post successful cardioversion in July 2017 currently in sinus rhythm, on chronic anticoagulation with Eliquis #8. History of chronic kidney disease secondary to nephrosclerosis #9. Hypertension #10. Hyperlipidemia #11. Rheumatoid arthritis #12. History of nicotine dependence, currently in remission #13. Chronic anemia #14. Hyponatremia, serum sodium is 125 Plan: Patient remains oliguric, despite 2 doses of Lasix 80 mg, vascular surgery has been consulted for emergent placement of temporary hemodialysis catheter, and hemodialysis treatments will be initiated. Continue BiPAP support. Patient's chest x-ray has been reviewed, and appears to be assisted with pulmonary edema due to acute exacerbation of congestive heart failure and fluid overload. We will obtain blood cultures, sputum cultures. Patient has acute leukocytosis on today's labs, we will empirically place the patient on Zosyn. GI and DVT prophylaxis, continue nebulized bronchodilators. Continue monitoring renal profile and electrolytes, heart rate and rhythm, hemodynamics. I performed a history & physical examination of the patient and discussed their management with my nurse practitioner, Sasha Knutson. I reviewed the nurse practitioner's note and agree with the documented findings and plan of care. Lung sounds positive for diffuse rhonchi. The findings and the impression was discussed with the patient. I attest to the documentation by the nurse practitioner. Time with Patient: Greater than 30 <Tessy Parmar - Last Filed: 01/27/18 08:46> Objective - Vital Signs Vital signs: Vital Signs Temp 99.1 F 01/27/18 08:00 Pulse 76 01/27/18 08:31 Resp 26 H 01/27/18 08:00 BP 185/86 01/27/18 08:00 Pulse Ox 97 01/27/18 08:00 Intake & Output 01/26/18 01/27/18 01/27/18 18:59 06:59 18:59 Intake Total 400 Output Total 125 75 Balance 400 -125 -75 Intake: Oral 400 Output: Urine 125 75 Other: # Voids 2 1 # Bowel Movements 0 - Labs CBC & Chem 7: 01/27/18 06:25 01/27/18 06:25 Labs: Abnormal Lab Results - Last 24 Hours (Table) 01/26/18 01/26/18 01/26/18 Range/Units 09:22 12:01 17:18 WBC (3.8-10.6) k/uL RBC (3.80-5.40) m/uL Hgb (11.4-16.0) gm/dL Hct (34.0-46.0) % RDW (11.5-15.5) % Neutrophils # (1.3-7.7) k/uL Lymphocytes # (1.0-4.8) k/uL Monocytes # (0-1.0) k/uL Sodium 123 L (137-145) mmol/L Potassium 5.4 H (3.5-5.1) mmol/L Chloride 90 L (98-107) mmol/L Carbon Dioxide 18 L (22-30) mmol/L BUN 104 H* (7-17) mg/dL Creatinine 5.08 H (0.52-1.04) mg/dL Glucose (74-99) mg/dL POC Glucose (mg/dL) 107 H 129 H (75-99) mg/dL Plasma Lactic Acid Erich (0.7-2.0) mmol/L Phosphorus (2.5-4.5) mg/dL Urine Protein (Negative) 01/26/18 01/26/18 01/27/18 Range/Units 17:56 20:59 06:25 WBC 28.6 H (3.8-10.6) k/uL RBC 2.80 L (3.80-5.40) m/uL Hgb 8.5 L (11.4-16.0) gm/dL Hct 26.8 L (34.0-46.0) % RDW 16.2 H (11.5-15.5) % Neutrophils # 25.5 H (1.3-7.7) k/uL Lymphocytes # 0.2 L (1.0-4.8) k/uL Monocytes # 2.4 H (0-1.0) k/uL Sodium 123 L (137-145) mmol/L Potassium 5.6 H (3.5-5.1) mmol/L Chloride 89 L (98-107) mmol/L Carbon Dioxide 17 L (22-30) mmol/L BUN 107 H* (7-17) mg/dL Creatinine 5.40 H (0.52-1.04) mg/dL Glucose 111 H (74-99) mg/dL POC Glucose (mg/dL) 123 H (75-99) mg/dL Plasma Lactic Acid Erich (0.7-2.0) mmol/L Phosphorus (2.5-4.5) mg/dL Urine Protein (Negative) 01/27/18 01/27/18 01/27/18 Range/Units 06:25 06:32 06:46 WBC (3.8-10.6) k/uL RBC (3.80-5.40) m/uL Hgb (11.4-16.0) gm/dL Hct (34.0-46.0) % RDW (11.5-15.5) % Neutrophils # (1.3-7.7) k/uL Lymphocytes # (1.0-4.8) k/uL Monocytes # (0-1.0) k/uL Sodium 125 L (137-145) mmol/L Potassium 5.3 H (3.5-5.1) mmol/L Chloride 91 L (98-107) mmol/L Carbon Dioxide 19 L (22-30) mmol/L BUN 108 H* (7-17) mg/dL Creatinine 6.49 H (0.52-1.04) mg/dL Glucose 101 H (74-99) mg/dL POC Glucose (mg/dL) 110 H (75-99) mg/dL Plasma Lactic Acid Erich 0.5 L (0.7-2.0) mmol/L Phosphorus 6.2 H (2.5-4.5) mg/dL Urine Protein (Negative) 01/27/18 Range/Units 07:45 WBC (3.8-10.6) k/uL RBC (3.80-5.40) m/uL Hgb (11.4-16.0) gm/dL Hct (34.0-46.0) % RDW (11.5-15.5) % Neutrophils # (1.3-7.7) k/uL Lymphocytes # (1.0-4.8) k/uL Monocytes # (0-1.0) k/uL Sodium (137-145) mmol/L Potassium (3.5-5.1) mmol/L Chloride (98-107) mmol/L Carbon Dioxide (22-30) mmol/L BUN (7-17) mg/dL Creatinine (0.52-1.04) mg/dL Glucose (74-99) mg/dL POC Glucose (mg/dL) (75-99) mg/dL Plasma Lactic Acid Erich (0.7-2.0) mmol/L Phosphorus (2.5-4.5) mg/dL Urine Protein Trace H (Negative) Microbiology - Last 24 Hours (Table) 01/21/18 07:59 Blood Culture - Preliminary Blood No Growth after 120 hours 01/21/18 07:53 Blood Culture - Preliminary Blood No Growth after 120 hours Assessment and Plan Plan: The patient was transferred to the intensive care unit this morning because of an acute hypoxic respiratory failure. The patient went into acute pulmonary edema as the patient was receiving IV fluids and the patient was not producing much urine output and the renal function was progressively getting worse with a creatinine being up to 6.4 on today's evaluation. The patient came in with acute respiratory distress. Currently she is on a BiPAP at a pressure of 12/6 cm of water and FiO2 of 50%. She has developed also leukocytosis with a white cell count 28. The patient will have emergency dialysis today. Vascular surgery was consulted. We'll proceed with dialysis once access is established. Meanwhile she may need intubation if her breathing gets worse pH is not producing much urine. She was given Lasix, 80 mg 2 without much improvement. Hold Eliquis for now.
[2018-01-27] MEDS: PIPERACILLIN-TAZOBACTAM 3.375 GM in DEXTROSE/WATER 1 50ML.BAG IVPB SCH ×2 (09:29→20:55)
[2018-01-27] MEDS: PANTOPRAZOLE 40 MG/10 ML VIAL IVP SCH (09:29)
[2018-01-27] MEDS: MORPHINE SULFATE 2 MG/ML SYRINGE IVP PRN ×3 (11:19→21:59)
--- NOTE | 2018-01-27 11:25 | CONS ---
CONSULTATION This is a 72-year-old female. The patient was seen in the intensive care unit. Patient very short of breath with acute chronic renal failure. I was called in by Nephrology for placement of urgent dialysis catheter. The patient has history of atrial fibrillation on Eliquis, history of kidney disease, history of hypertensive heart disease, history of hypertension. The patient was seen in the intensive care unit. She is very short of breath. SURGICAL HISTORY: Patient had a right ankle surgery done and also patient had a cardioversion in the past. No history of smoking. PHYSICAL EXAMINATION: On examination, patient was seen. Neck is supple. Patient has shortness of breath with bilateral rhonchi. Abdomen is soft. Femoral pulses are present. PLAN: Placement of urgent dialysis catheter. Risks and complications of bleeding, infection, thrombosis has been discussed. MMODL / IJN: [id number] /
--- NOTE | 2018-01-27 11:25 | PCN ---
PROCEDURE NOTE PREOPERATIVE DIAGNOSIS: Acute chronic renal failure. PROCEDURE: Triple-lumen dialysis catheter placed right femoral approach. PROCEDURE: Patient was seen in the intensive care unit. Right groin was prepped and draped in the usual sterile manner and 1% lidocaine was infiltrated. Micropuncture into the right femoral vein. Micropuncture guide was passed and 4-Frisian sheath was advanced on top of the guidewire then we passed a regular guidewire without any resistance. Then we placed the dilator and then we placed triple-lumen dialysis catheter on the top of the guidewire. A decent flow was noted. Flushed with heparin saline and hep-locked and secured with 3-0 nylon. Dressing applied. Patient tolerated the procedure well. MMODL / IJN: [id number] /
[2018-01-27 12:21] LABS: Glucose,Whole Blood 101 mg/dL (75-99)
[2018-01-27 17:05] LABS: Glucose,Whole Blood 83 mg/dL (75-99)
--- NOTE | 2018-01-27 17:34 | PN ---
PROGRESS NOTE Patient was seen this morning. Overnight she had deteriorated and early this morning patient was in respiratory distress. She was started on BiPAP and transferred to the ICU. She is in acute fluid overload. Patient was given Lasix 80 mg IV push. She did not make much urine and therefore we have decided to proceed with dialysis. Serum creatinine is worse this morning. In view of poor urine output, we will dialyze her. Vascular Surgery has been consulted and a femoral catheter will be placed. On examination, currently the patient is on BiPAP. When I saw her this morning blood pressure was 164/69, heart rate about 70 to 75 per minute. Patient is afebrile. EXAMINATION OF THE HEART: S1, S2. EXAMINATION OF LUNGS: Bilateral breath sounds are heard. ABDOMEN: Soft, non-tender. Examination of lower extremities shows trace edema bilaterally. VORTEX OPERATOR exam is grossly intact. Labs show sodium 125, potassium 5.3, chloride 91, BUN 108, serum creatinine 6.49, hemoglobin 8.5 g/dL. UA showed trace protein. ASSESSMENT: 1. Acute kidney injury, acute tubular necrosis, currently oliguric. I do not see any significant activity in the urine suggesting any underlying etiology for the acute kidney injury. She may have been aggressively diuresed. At this point, the fluids did not help and patient is currently in volume overload. We will proceed with dialysis. There was consideration of possible pulmonary renal syndrome; however, given the benign urinalysis, I doubt this process. Baseline serologies will still be ordered as part of the workup. 2. Hyponatremia secondary to renal failure. Expect improvement with dialysis. 3. Hyperkalemia associated with worsening renal failure. Also expect improvement with dialysis today. 4. Volume overload. Continue with Lasix. We will dialyze and remove about 2 L of fluid. Patient will need a second treatment again tomorrow. 5. Hyperphosphatemia associated with renal failure. 6. Pseudotumor in the lung secondary to fluid in the fissure, currently improved. 7. Hypertension, partly volume-sensitive. 8. Chronic kidney disease mineral bone disorder, maintained on calcitriol. 9. Chronic kidney disease, NKF stage IIIB, with baseline creatinine about 1.5 mg/dL. She has been at 1.8 as well in August and July 2018. Etiology is likely nephrosclerosis. No evidence of obstructive uropathy noted on ultrasound. Some left renal atrophy was seen. PLAN: Proceed with hemodialysis. Hep-lock IV fluids. Continue with IV Lasix as well. Continue current antihypertensive regimen. We will need to repeat dialysis again tomorrow. YRN / TRINAN: [id number] /
[2018-01-27 19:09] LABS: Hepatitis B Surface AB- Quant 3.5 mIU/mL
[2018-01-27 20:41] LABS: Glucose,Whole Blood 88 mg/dL (75-99)
--- NOTE | 2018-01-27 23:07 | PN ---
PROGRESS NOTE DATE OF SERVICE: 01/27/2018 PRESENTING COMPLAINT: Short of breath. INTERVAL HISTORY: The patient presents with severe chronic obstructive pulmonary disease exacerbation and CHF exacerbation. Was on IV Lasix and the patient went into renal failure. Early hours this morning patient became more and more short of breath. Renal function was worsening. Dr. Parmar put in a dialysis catheter. The patient was dialyzed, given IV Lasix, moved to the ICU. The patient has been on a BiPAP, being followed by Nephrology and pulmonary. REVIEW OF SYSTEMS: Done for constitutional, cardiovascular, GI, pulmonary; relevant findings as above. CURRENT MEDICATIONS: Reviewed that include DuoNeb, Cordarone, Lipitor, Pulmicort, hydralazine, Lopressor, IV Zosyn. EXAMINATION: Temperature 99.4, pulse 72, respiration 25, blood pressure 172/71, pulse ox 96% on BiPAP. GENERAL APPEARANCE: Lying in bed, short of breath. BiPAP in place. EYES: Pupils equal. Conjunctivae normal. HEENT: External nose and ears normal. Oral cavity normal. NECK: JVD unable to assess. Mass not palpable. RESPIRATORY: Effort increased. LUNGS: Decreased breath sounds, some crackles. CARDIOVASCULAR: First and second sounds normal. No edema. ABDOMEN: Soft, nontender. Liver and spleen not palpable. PSYCHIATRY: Alert and oriented x3. Mood and affect tired-appearing. INVESTIGATIONS: White count 28.6, hemoglobin 8.5, potassium 5.3, BUN 108, creatinine 6.49, sodium 125. Chest x-ray showing pulmonary edema. ASSESSMENT: 1. Acute relapse of [id number] congestive heart failure exacerbation from diastolic dysfunction. Ejection fraction 50-55% from hypertensive heart disease causing acute pulmonary edema. 2. Acute respiratory failure secondary to pulmonary edema. Patient requiring a BiPAP. 3. Acute chronic obstructive pulmonary disease exacerbation in an ex-smoker. 4. Paroxysmal atrial fibrillation. The patient had been in sinus rhythm. 5. Chronic kidney disease from hypertensive nephrosclerosis stage III at baseline. 6. Chronic left atrophic kidney. 7. Hypertensive heart disease. 8. Chronic rheumatoid arthritis. 9. Hyperlipidemia. 10.Essential hypertension. 11.Anxiety and depression, not otherwise specified. 12.Hyperkalemia from acute renal failure. 13.Hyponatremia, likely hypovolemic. 14.Acute renal failure, worsening, possibly a combination of acute tubular necrosis and prerenal, now requiring emergent dialysis. 15.Metabolic acidosis from renal failure. PLAN: Patient is in the ICU getting a BiPAP, status post dialysis. The patient is being followed by Nephrology and Critical Care. Overall prognosis is guarded. MMODL / IJN: [id number] /
[2018-01-27] MEDS: ZOLPIDEM 5 MG TAB PO PRN (23:44)
[2018-01-28 05:24] LABS: Albumin 2.8 g/dL (3.5-5.0); Calcium 8.4 mg/dL (8.4-10.2); Magnesium 1.8 mg/dL (1.6-2.3); Potassium 3.9 mmol/L (3.5-5.1); Total Bilirubin 0.5 mg/dL (0.2-1.3); Total Protein 5.2 g/dL (6.3-8.2)
[2018-01-28 05:25] LABS: Anisocytosis Slight; Basophils % (A) 0 %; Eosinophils % (A) 0 %; HCT 23.8 % (34.0-46.0); HGB 7.6 gm/dL (11.4-16.0); Lymphocytes # (A) 0.2 k/uL (1.0-4.8); Lymphocytes % (A) 1 %; MCH 30.5 pg (25.0-35.0); MCHC 32.1 g/dL (31.0-37.0); MCV 94.9 fL (80.0-100.0); Mean Platelet Volume 7.2; Monocytes # (A) 1.3 k/uL (0-1.0); Monocytes % (A) 5 %; Neutrophils # (A) 24.4 k/uL (1.3-7.7); Neutrophils % (A) 93 %; Platelet Count 294 k/uL (150-450); RBC 2.51 m/uL (3.80-5.40); RDW 16.4 % (11.5-15.5); WBC 26.3 k/uL (3.8-10.6)
[2018-01-28] MEDS: IPRATROPIUM-ALBUTEROL 3 ML NEB INHALATION SCH ×4 (07:34→19:58)
[2018-01-28] MEDS: BUDESONIDE 1 MG/2 ML NEBU INHALATION SCH ×2 (07:34→19:58)
[2018-01-28] MEDS: FORMOTEROL FUMARATE 20 MCG/2 ML NEBU INHALATION SCH ×2 (07:34→19:58)
[2018-01-28 07:36] LABS: Glucose,Whole Blood 96 mg/dL (75-99)
--- NOTE | 2018-01-28 08:06 | XR ---
EXAMINATION TYPE: XR chest 1V portable DATE OF EXAM: 01/28/2018 CLINICAL HISTORY: Difficulty breathing progress study. TECHNIQUE: Single AP portable upright view of the chest is obtained. COMPARISON: Chest x-ray from one day earlier and older studies. FINDINGS: There are patchy bilateral opacities with relative sparing of left upper lung redemonstrat ed. There are Rozina B lines in the right lung periphery redemonstrated. Cardiac silhouette size is s table and enlarged with atherosclerotic thoracic aorta. Osseous structures remain demineralized. Silh ouetting of left hemidiaphragm suggesting small effusion is redemonstrated. IMPRESSION: Cardiomegaly and chronic parenchymal changes with multifocal areas of acute infiltrate in the right lung redemonstrated which is stable from one day earlier but new from older studies severa l days earlier. Persistent small left pleural effusion with left basilar infiltrate and/or atelectasi s.
[2018-01-28] MEDS: ALLOPURINOL 100 MG TAB PO SCH (08:33)
[2018-01-28] MEDS: ATORVASTATIN 20 MG TAB PO SCH (08:33)
[2018-01-28] MEDS: amLODIPine 10 MG TAB PO SCH (08:33)
[2018-01-28] MEDS: PANTOPRAZOLE 40 MG/10 ML VIAL IVP SCH (08:34)
[2018-01-28] MEDS: hydrALAZINE HCL 50 MG TAB PO SCH ×3 (08:34→21:12)
[2018-01-28] MEDS: METOPROLOL TARTRATE 50 MG TAB PO SCH ×2 (08:34→21:13)
[2018-01-28] MEDS: predniSONE 20 MG TAB PO SCH (08:34)
[2018-01-28] MEDS: CALCITRIOL 0.25 MCG CAP PO SCH (08:40)
[2018-01-28] MEDS: SERTRALINE 50 MG TAB PO SCH (08:40)
[2018-01-28] MEDS: AMIODARONE 100 MG TAB PO SCH (08:40)
[2018-01-28] MEDS: INSULIN ASPART 100 UNIT/ML 1 ML 10 ML VIAL SQ SCH ×4 (08:42→21:32)
[2018-01-28] MEDS: PIPERACILLIN-TAZOBACTAM 3.375 GM in DEXTROSE/WATER 1 50ML.BAG IVPB SCH ×2 (08:43→21:12)
--- NOTE | 2018-01-28 10:50 | P.PN ---
Subjective Progress Note Date: 01/28/18 Principal diagnosis: Acute exacerbation of congestive heart failure with diastolic dysfunction, COPD This is a 72-year-old white female patient with past medical history of COPD, with FEV1 of 42%, chronic congestive heart failure with diastolic dysfunction, pseudotumor of the right lung, essential hypertension, rheumatoid arthritis, osteoarthritis, previous CVA/TIA, who presented to the emergency department today on 01/21/2018 at 4:00 in the morning with complaints of increasing shortness of breath. She states her shortness of breath has gradually become worse, over the past couple of days or so. She denies having any chest pain, no increase in wheezing, no phlegm production. Patient does have a congested cough. She denies any fever or chills, denies any swelling in bilateral extremities. Patient is on nebulizer treatments at home, in addition to her rescue inhaler. Patient has a history of atrial fibrillation, status post successful cardioversion in July 2017. She is on chronic anticoagulation with Eliquis. She remains in sinus rhythm on the monitor. EKG showed normal sinus rhythm with left ventricular hypertrophy with repolarization abnormality, and could not rule out septal infarct of undetermined age. Chest x-ray was completed, and showed airspace consolidation within the right lower lobe, small bilateral pleural effusions, increased interstitial markings and mild interstitial edema. There is a rounded well-circumscribed opacity within the right midlung likely representing fluid tracking within the right major fissure. After reviewing previous chest x-rays from 09/24/2017, and 09/09/2017 , the pseudotumor in the right midlung area seems to be more prominent during exacerbations of CHF. Labs did not show any leukocytosis, WBC is 8.3, hemoglobin is 8.5, INR is 1.3, d-dimer was negative for 0.49, sodium is 1:30, potassium is 3.8, chloride is 94, B1 is 34, creatinine is 1.5. Cardiac enzymes and troponins were negative 1, proBNP is significantly elevated at 12,200. Patient has positive distention of jugular veins bilaterally, no significant peripheral edema, congestive cough. In addition patient has been orthopneic. Patient was started on empiric antibiotics in the form of Zithromax and Rocephin , metolazone 2.5 mg on Thursday and Thursday. She received 1 dose of IV Lasix. We are asked to see the patient in consultation for shortness of breath. On 01/22/2018 patient seen in follow-up on medical surgical floor. States her breathing is improving, although patient does become short of breath with ambulation. No acute distress, pulse ox on 3 L per nasal Was 97%, patient is afebrile, patient has no occasional congestive cough, not able to bring up any sputum, lung sounds are positive for coarse crackles over right posterior lower lobe, diminished breath sounds over left base. Blood cultures remain negative, patient has been diuresed with IV Lasix, and Zaroxolyn, and today's chest x-ray shows interval resolution of the right lung ovoid lesion, the pseudotumor. There is improved right basilar infiltrate and/or atelectasis, improved but persistent small left pleural effusion. Patient still has digital JVD. Overall feeling and breathing better, antibiotics were discontinued per attending physician. On today's lab work the PVC is within normal limits at 8.4 , hemoglobin is 8.4, sodium is 131, chloride is 95, B1 is 43, creatinine is 1.85 , there has been the worsening of the renal profile, we will cut down the IV Lasix to 40 mg once daily. On 01/24/2018 patient seen in follow-up on medical surgical floor. Patient still sounds bronchospastic today, clinically patient states her breathing has improved. 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 Today's labs show sodium of 129, potassium is 4.7, chloride is 90, BUN is 72, and creatinine is 3.63, there has been worsening of the patient's renal profile, yesterday patient was given additional dose of IV Lasix, patient has been voiding, her net fluid balance is hard to estimate, however her weight continues to trend up, today is 63.8 kg, and her admission weight was 61.2 kg. No bilateral lower extremity edema, patient still has positive JVD bilaterally. She continues on IV Solu-Medrol, currently at 40 mg every 8 hours. We will add Pulmicort and Perforomist in addition to patient's DuoNeb. On the 2017 patient seen in follow-up on medical surgical floor. She denies any distress, denies any worsening shortness of breath, room air pulse ox is 96%, patient is afebrile, hemodynamically stable, respirations are even and nonlabored, lung sounds are clear, no rhonchi, no rales or wheezing noted. Lasix remains on hold, today's labs shows worsening of renal profile, BUN is 88 , creatinine is 4.28, nephrology has been consulted. No chest pain, no shortness of breath. She is tolerating oral intake. He is requesting to go home today. The patient is seen again today 01/26/2018 on the regular medical floor. She is awake and alert in no acute distress. She is currently sitting up in chair at the bedside. She denies any cough or congestion. He continues to maintain good O2 saturations in the upper 90s on room air. She's been afebrile. Hemodynamically stable. Chest x-ray is pending and she is currently on DuoNeb inhalations, Pulmicort and Perforomist inhalations. Sodium 123, potassium 5.4, creatinine increased to 5.08. Currently off diuretics. Nephrology on the case. On 01/27/2018 patient is been transferred to the intensive care early this morning, after rapid response team was called for concern of worsening shortness of breath. Stat chest x-ray was taken, and showed increasing pulmonary edema compared to yesterday's exam, consistent with congestive heart failure or ARDS. Patient is in moderately severe respiratory distress, tachypneic, anxious, and complaining of dyspnea, denies chest pain, lung sounds are positive for diffuse rhonchi throughout the lung caceres, patient was found to be hypoxic, with a pulse ox of 88%. Patient was placed on BiPAP support, currently at pressures of 12 6, and 50%. She was given a dose of IV Lasix 80 mg per nephrology, and has made very little urine, in order of 60 mL. Repeat dose of Lasix will be given, today's lab work reveals acute leukocytosis, WBC of 28.6, hemoglobin is 8.5, sodium is 125, potassium is 5.3, chloride is 91, CO2 is 19, B1 is 108, and creatinine is 6.49, there has been a steady decline of her renal function, and nephrology is planning on initiating hemodialysis. Plasma lactic acid was 0.5. He is currently in sinus rhythm, blood pressure is 184/77 with a mean of 112. Low-grade fevers this morning of 99.5F. Patient was transferred to the intensive care, where she is currently on BiPAP support. Vascular surgery has been consulted for emergent placement of temporary hemodialysis catheter. On 01/28/2018 patient seen in follow-up. Yesterday she had her initial hemodialysis treatment with removal of 2-1/2 L of fluid, today he is undergoing repeat hemodialysis treatment. She is breathing easier today, and did require BiPAP support last night, with pressures of 12/6, and 50%, currently on 4 L per nasal cannula with a pulse ox of 92%, patient is afebrile, respirations are even and nonlabored, lung sounds are positive for a few scattered wheezes, no significant rhonchi or rales. Today's chest x-ray shows cardiomegaly, multifocal areas of acute infiltrate in the right lung which has been stable over the last several days, and persistent small left pleural effusion with left basilar infiltrate and/or atelectasis. Patient's urine output has improved , and patient is producing 50-55 ML of urine hourly. Denies any shortness of breath or chest pain, denies any palpitations. She remains in sinus rhythm with a controlled rate. Today's lab work has been reviewed, shows WBC of 26.3, hemoglobin is 7.6, sodium is 131, potassium is 3.9, chloride is 94, BUN is 81, and creatinine is 4.74, there has been improvement in patient's renal profile. Blood and urine cultures remain negative thus far, patient was placed on empiric antibiotics in the form of Zosyn. Objective - Vital Signs Vital signs: Vital Signs Temp 98 F 01/28/18 08:00 Pulse 70 01/28/18 09:00 Resp 12 01/28/18 09:00 BP 173/94 01/28/18 09:00 Pulse Ox 92 L 01/28/18 09:00 Intake & Output 01/27/18 01/28/18 01/28/18 18:59 06:59 18:59 Intake Total 50 50 Output Total 575 454 150 Balance -575 -455 -100 Weight 66.7 kg Intake: IV 50 50 Piperacillin-Tazobactam 3 50 50 .375 gm In Dextrose/Water 1 50ml.bag @ 12.5 mls/hr IVPB Q12HR [facility] Rx#: [id number] Oral 0 0 Output: Urine 575 505 150 Other: Voiding Method Indwelling Catheter Indwelling Catheter Indwelling Catheter # Voids 1 # Bowel Movements 0 - Exam GENERAL EXAM: Alert, pleasant 72-year-old white female comfortable in moderate to severe amount of respiratory distress, currently off BiPAP support, currently on 4 L of oxygen with a pulse ox of 96% HEAD: Normocephalic/atraumatic. EYES: Normal reaction of pupils, equal size. Conjunctiva pink, sclera white. NOSE: Clear with pink turbinates. THROAT: No erythema or exudates. NECK: No masses, no thyroid enlargement, no adenopathy. Positive JVD bilaterally CHEST: No chest wall deformity. Symmetrical expansion. LUNGS: Lung sounds are positive for diffuse rhonchi throughout the lung caceres CVS: Regular rate and rhythm, normal S1 and S2, no gallops, no murmurs, no rubs ABDOMEN: Soft, nontender. No hepatosplenomegaly, normal bowel sounds, no guarding or rigidity. EXTREMITIES: No clubbing, no edema, no cyanosis, 2+ pulses and upper and lower extremities. MUSCULOSKELETAL: Muscle strength and tone normal. SPINE: No scoliosis or deformity SKIN: No rashes CENTRAL NERVOUS SYSTEM: Alert and oriented -3. No focal deficits, tone is normal in all 4 extremities. PSYCHIATRIC: Alert and oriented -3. Appropriate affect. Intact judgment and insight. - Labs CBC & Chem 7: 01/28/18 05:01 01/28/18 05:01 Labs: Abnormal Lab Results - Last 24 Hours (Table) 01/27/18 01/28/18 01/28/18 Range/Units 12:15 05:01 05:01 WBC 26.3 H (3.8-10.6) k/uL RBC 2.51 L (3.80-5.40) m/uL Hgb 7.6 L (11.4-16.0) gm/dL Hct 23.8 L (34.0-46.0) % RDW 16.4 H (11.5-15.5) % Neutrophils # 24.4 H (1.3-7.7) k/uL Lymphocytes # 0.2 L (1.0-4.8) k/uL Monocytes # 1.3 H (0-1.0) k/uL Sodium 131 L (137-145) mmol/L Chloride 94 L (98-107) mmol/L BUN 81 H (7-17) mg/dL Creatinine 4.74 H (0.52-1.04) mg/dL POC Glucose (mg/dL) 101 H (75-99) mg/dL Phosphorus 7.0 H (2.5-4.5) mg/dL Total Protein 5.2 L (6.3-8.2) g/dL Albumin 2.8 L (3.5-5.0) g/dL Microbiology - Last 24 Hours (Table) 01/27/18 07:45 Urine Culture - Preliminary Urine,Catheterized 01/21/18 07:59 Blood Culture - Final Blood No Growth after 144 hours 01/21/18 07:53 Blood Culture - Final Blood No Growth after 144 hours Assessment and Plan Plan: Assessment: #1. Acute hypoxemic respiratory failure secondary to acute pulmonary edema, consistent with acute exacerbation of congestive heart failure with systolic dysfunction, fluid overload #2. Leukocytosis, possibly stress induced. Patient has a low-grade fever, and lactic acid is 0.5 #3. Acute kidney injury likely related to diuresis, hemodialysis has been initiated, patient had 2 treatments so far, and renal profile is improving #4. Acute exacerbation of chronic obstructive pulmonary disease. #5. History of severe COPD, with underlying FEV1 of 43% of predicted. #6. Right midlung pseudotumor with fluid in the major fissure seen on the chest x-ray, compared to previous studies, and appears to be more prominent during times of CHF exacerbation. Right basilar infiltrate, possibly related to atelectasis, cannot entirely rule out pneumonia #7. History of A. fib, status post successful cardioversion in July 2017 currently in sinus rhythm, on chronic anticoagulation with Eliquis #8. History of chronic kidney disease secondary to nephrosclerosis #9. Hypertension #10. Hyperlipidemia #11. Rheumatoid arthritis #12. History of nicotine dependence, currently in remission #13. Chronic anemia #14. Hyponatremia, serum sodium is 125 Plan: Patient is undergoing another hemodialysis treatment this morning, case was discussed with nephrology, urine output has stopped, and renal profile has improved. Hemodynamically patient remains stable, denies any shortness of breath or chest pain. Remains in sinus mechanism with a controlled rate. Currently off BiPAP support. Tinea with current medical treatment, continue empiric antibiotics, patient remains afebrile. Cultures remain negative. Today 's chest x-ray has been reviewed shows persistent right lower lobe infiltrate, and small left plural effusion with basilar atelectasis. Continue weaning FiO2. Continue oral prednisone, and nebulized bronchodilators. Patient will remain in the intensive care today. I performed a history & physical examination of the patient and discussed their management with my nurse practitioner, Sasha Knutson. I reviewed the nurse practitioner's note and agree with the documented findings and plan of care. Lung sounds positive scattered wheezes. The findings and the impression was discussed with the patient. I attest to the documentation by the nurse practitioner. Time with Patient: Greater than 30
[2018-01-28 11:56] LABS: Glucose,Whole Blood 99 mg/dL (75-99)
[2018-01-28] MEDS: DARBEPOETIN ALFA 40 MCG/0.4 ML SYRINGE SQ SCH (15:43)
--- NOTE | 2018-01-28 16:17 | PN ---
PROGRESS NOTE Patient is seen for followup for acute kidney injury. Patient's respiratory status had decompensated yesterday and she was maintained on BiPAP. She was in CHF and fluid overload. The patient was dialyzed yesterday. She is breathing much better and is currently off of the BiPAP. Urine output however remains on the lower side with 24 hour urine output documented at about 600 mL. We had about 2.5 L of ultrafiltration yesterday with dialysis. PHYSICAL EXAMINATION: On examination today, blood pressure this morning was 143/68, heart rate 66 per minute. She is afebrile. Examination of the heart: S1, S2. Examination of the lungs: Decreased breath sounds at bases. Abdomen is soft, nontender. Examination lower extremities shows no significant edema. ADHESIVE SPRAYER exam is grossly intact. LABS: Show sodium 131, potassium 3.9, BUN 81, serum creatinine 4.74, hemoglobin of 7.6 g/dL. ASSESSMENT: 1. Acute kidney injury, acute tubular necrosis, currently nonoliguric with some improvement in urine output as compared to yesterday. The patient remains fluid overloaded. We will arrange for another treatment of hemodialysis today. I will also start her on IV Lasix and will continue to avoid any nephrotoxic agents. 2. Acute respiratory failure, hypoxic secondary to congestive heart failure, volume overload, currently improved post dialysis. 3. Acute exacerbation of chronic obstructive pulmonary disease. The patient has severe underlying chronic obstructive pulmonary disease. 4. Right midlung pseudotumor, which was mainly fluid on initial admission, currently improved with improvement in volume status. 5. History of atrial fibrillation, status post cardioversion. 6. History of rheumatoid arthritis. 7. Hyperkalemia with worsening renal failure currently improved post dialysis. 8. Hyperphosphatemia secondary to worsening renal failure. Will start patient on phosphate binders once she is eating. 9. CKD mineral bone disorder, maintained on Rocaltrol. 10.Chronic kidney disease with baseline creatinine about 1.5-2 mg/dL secondary to nephrosclerosis and NKF stage IIIB to IV. PLAN: Repeat hemodialysis today. Start Lasix. Continue to avoid nephrotoxic agents. Avoid hypotension. Repeat iron profile. Iron saturation was only 12% in November. I will also start Aranesp and will give IV iron if needed depending on the iron studies. Start phosphate binders as well. MMODL / IJN: [id number] /
[2018-01-28] MEDS: CALCIUM ACETATE 667 MG CAP PO SCH (17:04)
[2018-01-28 17:05] LABS: Glucose,Whole Blood 100 mg/dL (75-99)
--- NOTE | 2018-01-28 19:14 | PN ---
PROGRESS NOTE DATE OF SERVICE: January 28, 2018. PRESENTING COMPLAINT: Short of breath. INTERVAL HISTORY: This patient initially admitted with severe COPD exacerbation and CHF exacerbation. Was on IV Lasix and went into renal failure. The patient went into respiratory failure. Yesterday had to be diuresed. Started on dialysis, was dialyzed yesterday. The patient was dialyzed about 2 L today. Feeling better, back on nasal cannula about 3 L. sitting up on the bed in the ICU. REVIEW OF SYSTEMS: Done for constitutional, cardiovascular, GI, pulmonary and relevant findings as above. CURRENT MEDICATIONS: Reviewed that include DuoNeb, p.o. Cordarone, Norvasc, Eliquis was held for the dialysis catheter, IV Lasix 60 q.12 hours, IV Zosyn. EXAMINATION: VITAL SIGNS: Temperature 98.2, pulse 68, respirations 13, blood pressure 143/68, pulse ox 96 percent on 4 L. GENERAL APPEARANCE: Lying in bed, short of breath. BiPAP in place. EYES: Pupils equal. Conjunctivae normal. HEENT: External appearance of nose and ears normal. Oral cavity normal. NECK: JVD unable to assess. Mass not palpable. RESPIRATORY: Effort increased. LUNGS decreased breath sounds. CARDIOVASCULAR: 1st and 2nd sounds normal. No edema. ABDOMEN: Soft, nontender. Liver and spleen not palpable. PSYCHIATRY: Alert and oriented x3. Mood and affect tired. INVESTIGATIONS: White count 26.3, hemoglobin 7.6, potassium 3.9, BUN 18, creatinine 4.74. ASSESSMENT: 1. Relapse of acute on chronic congestive heart failure exacerbation from diastolic dysfunction. Ejection fraction 50-55 percent from hypertensive heart disease causing acute pulmonary edema. 2. Acute respiratory failure secondary to pulmonary edema. The patient did require a BiPAP, currently on nasal cannula. 3. Acute chronic obstructive pulmonary disease exacerbation in an ex-smoker. 4. Paroxysmal atrial fibrillation. Patient has been in sinus rhythm. 5. Chronic kidney disease from hypertensive nephrosclerosis stage III at baseline. 6. Chronic left atrophic kidney. 7. Hypertensive heart disease. 8. Chronic rheumatoid arthritis. 9. Hyperlipidemia. 10.Anxiety and depression, not otherwise specified. 11.Hyperkalemia from acute renal failure. 12.Hyponatremia, likely hypovolemic. 13.Acute renal failure worsened probably acute tubular necrosis requiring renal replacement therapy that is dialysis started on January 27, 2018. 14.Metabolic acidosis from renal failure. PLAN: Care was discussed with the patient and at the bedside. Prognosis is guarded. Continue with dialysis from Nephrology. Prognosis is guarded. Care was discussed with the patient. YRN / TRINAN: [id number] /
[2018-01-28 19:40] LABS: Iron Saturation 4.62 (12.00-45.00)
[2018-01-28 20:31] LABS: Glucose,Whole Blood 195 mg/dL (75-99)
[2018-01-28] MEDS: APIXABAN 5 MG TAB PO SCH (21:12)
[2018-01-28] MEDS: FUROSEMIDE 10 MG/ML 10 ML VIAL IV SCH (21:13)
[2018-01-29 04:51] LABS: Anisocytosis Slight; Basophils % (A) 0 %; Eosinophils % (A) 0 %; HCT 23.1 % (34.0-46.0); HGB 7.2 gm/dL (11.4-16.0); Lymphocytes # (A) 0.4 k/uL (1.0-4.8); Lymphocytes % (A) 2 %; MCH 29.9 pg (25.0-35.0); MCHC 31.2 g/dL (31.0-37.0); MCV 95.8 fL (80.0-100.0); Mean Platelet Volume 7.1; Monocytes % (A) 5 %; Neutrophils # (A) 17.6 k/uL (1.3-7.7); Neutrophils % (A) 91 %; Platelet Count 268 k/uL (150-450); RBC 2.41 m/uL (3.80-5.40); RDW 16.4 % (11.5-15.5); WBC 19.4 k/uL (3.8-10.6)
[2018-01-29 05:00] LABS: Albumin 2.7 g/dL (3.5-5.0); Calcium 8.5 mg/dL (8.4-10.2); Magnesium 1.9 mg/dL (1.6-2.3); Potassium 3.7 mmol/L (3.5-5.1); Total Bilirubin 0.5 mg/dL (0.2-1.3); Total Protein 5.3 g/dL (6.3-8.2)
[2018-01-29 07:24] LABS: Glucose,Whole Blood 105 mg/dL (75-99)
[2018-01-29] MEDS: BUDESONIDE 1 MG/2 ML NEBU INHALATION SCH ×2 (07:47→19:52)
[2018-01-29] MEDS: FORMOTEROL FUMARATE 20 MCG/2 ML NEBU INHALATION SCH ×2 (07:47→19:52)
[2018-01-29] MEDS: IPRATROPIUM-ALBUTEROL 3 ML NEB INHALATION SCH ×4 (07:47→19:52)
[2018-01-29] MEDS: INSULIN ASPART 100 UNIT/ML 1 ML 10 ML VIAL SQ SCH ×4 (08:33→20:46)
[2018-01-29] MEDS ORDERED: BISACODYL 10 MG SUPP RECTAL PRN (08:45)
--- NOTE | 2018-01-29 08:52 | XR ---
EXAMINATION TYPE: XR chest 1V portable DATE OF EXAM: 01/29/2018 COMPARISON: 01/28/2018, 01/21/2018 INDICATION: Short of breath TECHNIQUE: Single frontal view of the chest is obtained. FINDINGS: The heart size is upper limits of normal. The pulmonary vasculature is prominent. There is some increased lung markings E right upper lobe. A nodule is in the periphery of the right m idlung measuring 2.6 cm. Continued follow-up is recommended. IMPRESSION: 1. Increasing right upper lobe infiltrate. Correlate for atypical pulmonary edema. 2. Previous right lower lobe and left basilar infiltrates have significantly improved. 3. Continued visualization of a nodule within the periphery of the right midlung.
[2018-01-29] MEDS: ALLOPURINOL 100 MG TAB PO SCH (09:57)
[2018-01-29] MEDS: APIXABAN 5 MG TAB PO SCH ×2 (09:57→20:46)
[2018-01-29] MEDS: FUROSEMIDE 10 MG/ML 10 ML VIAL IV SCH ×2 (09:57→20:46)
[2018-01-29] MEDS: ATORVASTATIN 20 MG TAB PO SCH (09:57)
[2018-01-29] MEDS: CALCIUM ACETATE 667 MG CAP PO SCH ×3 (09:57→16:59)
[2018-01-29] MEDS: amLODIPine 10 MG TAB PO SCH (09:57)
[2018-01-29] MEDS: CALCITRIOL 0.25 MCG CAP PO SCH (10:01)
[2018-01-29] MEDS: PIPERACILLIN-TAZOBACTAM 3.375 GM in DEXTROSE/WATER 1 50ML.BAG IVPB SCH ×2 (10:01→20:47)
[2018-01-29] MEDS: SERTRALINE 50 MG TAB PO SCH (10:01)
[2018-01-29] MEDS: AMIODARONE 100 MG TAB PO SCH (10:01)
[2018-01-29] MEDS: METOPROLOL TARTRATE 50 MG TAB PO SCH ×2 (10:04→20:46)
[2018-01-29] MEDS: PANTOPRAZOLE 40 MG/10 ML VIAL IVP SCH (10:04)
[2018-01-29] MEDS: predniSONE 20 MG TAB PO SCH (10:04)
[2018-01-29] MEDS: hydrALAZINE HCL 50 MG TAB PO SCH ×3 (10:05→23:21)
[2018-01-29] MEDS ORDERED: DILTIAZEM DRIP BOLUS FROM BAG 1 MG SOLN IV ONE (11:31)
[2018-01-29] MEDS ORDERED: DILTIAZEM 50 MG in SODIUM CHLORIDE 0.9% 40 ML IV SCH (11:45)
[2018-01-29 12:29] LABS: Glucose,Whole Blood 125 mg/dL (75-99)
--- NOTE | 2018-01-29 13:23 | P.PN ---
Subjective Progress Note Date: 01/29/18 This is a 72-year-old white female patient with past medical history of COPD, with FEV1 of 42%, chronic congestive heart failure with diastolic dysfunction, pseudotumor of the right lung, essential hypertension, rheumatoid arthritis, osteoarthritis, previous CVA/TIA, who presented to the emergency department today on 01/21/2018 at 4:00 in the morning with complaints of increasing shortness of breath. She states her shortness of breath has gradually become worse, over the past couple of days or so. She denies having any chest pain, no increase in wheezing, no phlegm production. Patient does have a congested cough. She denies any fever or chills, denies any swelling in bilateral extremities. Patient is on nebulizer treatments at home, in addition to her rescue inhaler. Patient has a history of atrial fibrillation, status post successful cardioversion in July 2017. She is on chronic anticoagulation with Eliquis. She remains in sinus rhythm on the monitor. EKG showed normal sinus rhythm with left ventricular hypertrophy with repolarization abnormality, and could not rule out septal infarct of undetermined age. Chest x-ray was completed, and showed airspace consolidation within the right lower lobe, small bilateral pleural effusions, increased interstitial markings and mild interstitial edema. There is a rounded well-circumscribed opacity within the right midlung likely representing fluid tracking within the right major fissure. After reviewing previous chest x-rays from 09/24/2017, and 09/09/2017 , the pseudotumor in the right midlung area seems to be more prominent during exacerbations of CHF. Labs did not show any leukocytosis, WBC is 8.3, hemoglobin is 8.5, INR is 1.3, d-dimer was negative for 0.49, sodium is 1:30, potassium is 3.8, chloride is 94, B1 is 34, creatinine is 1.5. Cardiac enzymes and troponins were negative 1, proBNP is significantly elevated at 12,200. Patient has positive distention of jugular veins bilaterally, no significant peripheral edema, congestive cough. In addition patient has been orthopneic. Patient was started on empiric antibiotics in the form of Zithromax and Rocephin , metolazone 2.5 mg on Thursday and Thursday. She received 1 dose of IV Lasix. We are asked to see the patient in consultation for shortness of breath. On 01/22/2018 patient seen in follow-up on medical surgical floor. States her breathing is improving, although patient does become short of breath with ambulation. No acute distress, pulse ox on 3 L per nasal Was 97%, patient is afebrile, patient has no occasional congestive cough, not able to bring up any sputum, lung sounds are positive for coarse crackles over right posterior lower lobe, diminished breath sounds over left base. Blood cultures remain negative, patient has been diuresed with IV Lasix, and Zaroxolyn, and today's chest x-ray shows interval resolution of the right lung ovoid lesion, the pseudotumor. There is improved right basilar infiltrate and/or atelectasis, improved but persistent small left pleural effusion. Patient still has digital JVD. Overall feeling and breathing better, antibiotics were discontinued per attending physician. On today's lab work the PVC is within normal limits at 8.4 , hemoglobin is 8.4, sodium is 131, chloride is 95, B1 is 43, creatinine is 1.85 , there has been the worsening of the renal profile, we will cut down the IV Lasix to 40 mg once daily. On 01/24/2018 patient seen in follow-up on medical surgical floor. Patient still sounds bronchospastic today, clinically patient states her breathing has improved. 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 Today's labs show sodium of 129, potassium is 4.7, chloride is 90, BUN is 72, and creatinine is 3.63, there has been worsening of the patient's renal profile, yesterday patient was given additional dose of IV Lasix, patient has been voiding, her net fluid balance is hard to estimate, however her weight continues to trend up, today is 63.8 kg, and her admission weight was 61.2 kg. No bilateral lower extremity edema, patient still has positive JVD bilaterally. She continues on IV Solu-Medrol, currently at 40 mg every 8 hours. We will add Pulmicort and Perforomist in addition to patient's DuoNeb. On the 2017 patient seen in follow-up on medical surgical floor. She denies any distress, denies any worsening shortness of breath, room air pulse ox is 96%, patient is afebrile, hemodynamically stable, respirations are even and nonlabored, lung sounds are clear, no rhonchi, no rales or wheezing noted. Lasix remains on hold, today's labs shows worsening of renal profile, BUN is 88 , creatinine is 4.28, nephrology has been consulted. No chest pain, no shortness of breath. She is tolerating oral intake. He is requesting to go home today. The patient is seen again today 01/26/2018 on the regular medical floor. She is awake and alert in no acute distress. She is currently sitting up in chair at the bedside. She denies any cough or congestion. He continues to maintain good O2 saturations in the upper 90s on room air. She's been afebrile. Hemodynamically stable. Chest x-ray is pending and she is currently on DuoNeb inhalations, Pulmicort and Perforomist inhalations. Sodium 123, potassium 5.4, creatinine increased to 5.08. Currently off diuretics. Nephrology on the case. On 01/27/2018 patient is been transferred to the intensive care early this morning, after rapid response team was called for concern of worsening shortness of breath. Stat chest x-ray was taken, and showed increasing pulmonary edema compared to yesterday's exam, consistent with congestive heart failure or ARDS. Patient is in moderately severe respiratory distress, tachypneic, anxious, and complaining of dyspnea, denies chest pain, lung sounds are positive for diffuse rhonchi throughout the lung caceres, patient was found to be hypoxic, with a pulse ox of 88%. Patient was placed on BiPAP support, currently at pressures of 12 6, and 50%. She was given a dose of IV Lasix 80 mg per nephrology, and has made very little urine, in order of 60 mL. Repeat dose of Lasix will be given, today's lab work reveals acute leukocytosis, WBC of 28.6, hemoglobin is 8.5, sodium is 125, potassium is 5.3, chloride is 91, CO2 is 19, B1 is 108, and creatinine is 6.49, there has been a steady decline of her renal function, and nephrology is planning on initiating hemodialysis. Plasma lactic acid was 0.5. He is currently in sinus rhythm, blood pressure is 184/77 with a mean of 112. Low-grade fevers this morning of 99.5F. Patient was transferred to the intensive care, where she is currently on BiPAP support. Vascular surgery has been consulted for emergent placement of temporary hemodialysis catheter. On 01/28/2018 patient seen in follow-up. Yesterday she had her initial hemodialysis treatment with removal of 2-1/2 L of fluid, today he is undergoing repeat hemodialysis treatment. She is breathing easier today, and did require BiPAP support last night, with pressures of 12/6, and 50%, currently on 4 L per nasal cannula with a pulse ox of 92%, patient is afebrile, respirations are even and nonlabored, lung sounds are positive for a few scattered wheezes, no significant rhonchi or rales. Today's chest x-ray shows cardiomegaly, multifocal areas of acute infiltrate in the right lung which has been stable over the last several days, and persistent small left pleural effusion with left basilar infiltrate and/or atelectasis. Patient's urine output has improved , and patient is producing 50-55 ML of urine hourly. Denies any shortness of breath or chest pain, denies any palpitations. She remains in sinus rhythm with a controlled rate. Today's lab work has been reviewed, shows WBC of 26.3, hemoglobin is 7.6, sodium is 131, potassium is 3.9, chloride is 94, BUN is 81, and creatinine is 4.74, there has been improvement in patient's renal profile. Blood and urine cultures remain negative thus far, patient was placed on empiric antibiotics in the form of Zosyn. 01/29/2018, the patient is resting comfortably in bed. She is not having any significant respiratory distress. She had [id number] dialysis with ultrafiltration and currently she is producing urine output and I discussed the case with nephrology and will skip dialysis for today. No fever. No chills. No chest pain. She has a dialysis catheter in her right groin. BiPAP was discontinued. A follow-up chest x-ray from today shows some increasing right upper lobe pulmonary infiltrate and this is consistent with atypical pulmonary edema. The previously described right lower lobe and the left basilar lobe pulmonary infiltrates have improved. The patient has a net fluid balance of -1 L over the past 24 hours. The hemoglobin is stable at 7.2. White cell count is at 19.4 and it is down trending. On today's blood work, the patient doesn't have any significant metabolic acidosis. BNP is a 62 and the creatinine is at 3.8. The patient is currently on a prednisone burst taper. The patient is on DuoNeb nebulized treatments around the clock. She is also receiving 60 mg IV Lasix every 12 hours. Objective - Vital Signs Vital signs: Vital Signs Temp 98.0 F 01/29/18 12:00 Pulse 65 01/29/18 12:00 Resp 20 01/29/18 12:00 BP 151/71 01/29/18 12:00 Pulse Ox 92 L 01/29/18 12:00 Intake & Output 01/28/18 01/29/18 01/29/18 18:59 06:59 18:59 Intake Total 50 300 750 Output Total 265 245 195 Balance -215 55 555 Weight 65 kg 65 kg Intake: IV 50 50 50 Piperacillin-Tazobactam 3 50 50 50 .375 gm In Dextrose/Water 1 50ml.bag @ 12.5 mls/hr IVPB Q12HR FOR[facility]LY [facility] Rx#: [id number] Oral 0 250 700 Output: Urine 265 245 195 Other: Voiding Method Indwelling Catheter Indwelling Catheter Indwelling Catheter - Exam GENERAL EXAM: Alert, pleasant 72-year-old white female comfortable in bed and the patient is not in acute respiratory distress. HEAD: Normocephalic/atraumatic. EYES: Normal reaction of pupils, equal size. Conjunctiva pink, sclera white. NOSE: Clear with pink turbinates. THROAT: No erythema or exudates. NECK: No masses, no thyroid enlargement, no adenopathy. Positive JVD bilaterally CHEST: No chest wall deformity. Symmetrical expansion. LUNGS: Lung sounds are positive for diffuse rhonchi throughout the lung caceres CVS: Regular rate and rhythm, normal S1 and S2, no gallops, no murmurs, no rubs ABDOMEN: Soft, nontender. No hepatosplenomegaly, normal bowel sounds, no guarding or rigidity. EXTREMITIES: No clubbing, no edema, no cyanosis, 2+ pulses and upper and lower extremities. MUSCULOSKELETAL: Muscle strength and tone normal. SPINE: No scoliosis or deformity SKIN: No rashes CENTRAL NERVOUS SYSTEM: Alert and oriented -3. No focal deficits, tone is normal in all 4 extremities. PSYCHIATRIC: Alert and oriented -3. Appropriate affect. Intact judgment and insight. - Labs CBC & Chem 7: 01/29/18 04:27 01/29/18 04:27 Labs: Abnormal Lab Results - Last 24 Hours (Table) 01/28/18 01/28/18 01/28/18 Range/Units 05:01 05:01 17:03 WBC (3.8-10.6) k/uL RBC (3.80-5.40) m/uL Hgb (11.4-16.0) gm/dL Hct (34.0-46.0) % RDW (11.5-15.5) % Neutrophils # (1.3-7.7) k/uL Lymphocytes # (1.0-4.8) k/uL Sodium (137-145) mmol/L Chloride (98-107) mmol/L BUN (7-17) mg/dL Creatinine (0.52-1.04) mg/dL POC Glucose (mg/dL) 100 H (75-99) mg/dL Phosphorus (2.5-4.5) mg/dL Iron 9 L 7 L (50-170) ug/dL TIBC 195 L (228-460) ug/dL Iron Saturation 4.62 L (12.00-45.00) Total Protein (6.3-8.2) g/dL Albumin (3.5-5.0) g/dL 01/28/18 01/29/18 01/29/18 Range/Units 20:29 04:27 04:27 WBC 19.4 H (3.8-10.6) k/uL RBC 2.41 L (3.80-5.40) m/uL Hgb 7.2 L (11.4-16.0) gm/dL Hct 23.1 L (34.0-46.0) % RDW 16.4 H (11.5-15.5) % Neutrophils # 17.6 H (1.3-7.7) k/uL Lymphocytes # 0.4 L (1.0-4.8) k/uL Sodium 130 L (137-145) mmol/L Chloride 92 L (98-107) mmol/L BUN 62 H (7-17) mg/dL Creatinine 3.84 H (0.52-1.04) mg/dL POC Glucose (mg/dL) 195 H (75-99) mg/dL Phosphorus 6.0 H (2.5-4.5) mg/dL Iron (50-170) ug/dL TIBC (228-460) ug/dL Iron Saturation (12.00-45.00) Total Protein 5.3 L (6.3-8.2) g/dL Albumin 2.7 L (3.5-5.0) g/dL 01/29/18 01/29/18 Range/Units 07:22 12:24 WBC (3.8-10.6) k/uL RBC (3.80-5.40) m/uL Hgb (11.4-16.0) gm/dL Hct (34.0-46.0) % RDW (11.5-15.5) % Neutrophils # (1.3-7.7) k/uL Lymphocytes # (1.0-4.8) k/uL Sodium (137-145) mmol/L Chloride (98-107) mmol/L BUN (7-17) mg/dL Creatinine (0.52-1.04) mg/dL POC Glucose (mg/dL) 105 H 125 H (75-99) mg/dL Phosphorus (2.5-4.5) mg/dL Iron (50-170) ug/dL TIBC (228-460) ug/dL Iron Saturation (12.00-45.00) Total Protein (6.3-8.2) g/dL Albumin (3.5-5.0) g/dL Microbiology - Last 24 Hours (Table) 01/27/18 09:11 Blood Culture - Preliminary Blood No Growth after 48 hours 01/27/18 07:45 Urine Culture - Final Urine,Catheterized Assessment and Plan Plan: #1. Acute hypoxemic respiratory failure secondary to acute pulmonary edema, improved with hemodialysis and ultrafiltration and the patient is currently on 3 L about 2 by nasal cannula with pulse ox of 92%. Chest x-ray still showing some atypical pulmonary edema. We will impose pneumonia is doubtful at this stage. #2. Lactic acidosis, recovered #3. Acute kidney injury likely related to diuresis, hemodialysis has been initiated, patient had 2 treatments so far, and patient's renal profile is improving. The volume status improving. The patient is currently on Lasix 60 mg IV push every 12 hours and the patient is producing urine output for now. No other complaints for now. Nephrology is on the case. A temper diocese cath is present in right groin. #4. Acute exacerbation of chronic obstructive pulmonary disease, improving and the patient is currently on DuoNeb and prednisone burst taper. Currently on 20 mg of prednisone. #5. History of severe COPD, with underlying FEV1 of 43% of predicted. #6. Right midlung pseudotumor with fluid in the major fissure seen on the chest x-ray, compared to previous studies, and appears to be more prominent during times of CHF exacerbation. Right basilar infiltrate, possibly related to atelectasis, cannot entirely rule out pneumonia #7. History of A. fib, status post successful cardioversion in July 2017 currently in sinus rhythm, on chronic anticoagulation with Eliquis #8. History of chronic kidney disease secondary to nephrosclerosis #9. Hypertension #10. Hyperlipidemia #11. Rheumatoid arthritis #12. History of nicotine dependence, currently in remission #13. Chronic anemia #14. Hyponatremia, improvement in the sodium level is up to 130 Plan No dialysis for today. Continue Lasix. Continue urine output monitoring. Monitor the neck fluid balance. Repeat chest x-ray in the morning. Wean the FiO2 down to maintain a saturation above 90%. Continue DuoNeb nebulized treatments around the clock. Empiric antibiotic coverage with IV Zosyn. Prednisone burst taper. Nephrology is on the case. We'll continue to follow.
--- NOTE | 2018-01-29 14:03 | PN ---
PROGRESS NOTE The patient is seen for followup for acute kidney injury. The patient was admitted to the hospital with CHF fluid overload. She was aggressively diuresed following which she developed severe acute kidney injury and was started on IV fluids. The patient developed respiratory distress, fluid overload and respiratory failure. She was maintained on BiPAP. She was oliguric and had worsening renal function with creatinine up to 6 mg/dL. The patient was dialyzed. She has had 2 treatments of hemodialysis with her second treatment yesterday. She was able to stay off the vent. Respiratory status improved with improvement in volume status. Urine output has now picked up. I have her on IV Lasix which we will continue and I will hold off on hemodialysis today. There was no evidence of obstructive uropathy and UA was fairly benign with no evidence of hematuria or pyuria. There was trace protein noted. PHYSICAL EXAMINATION: On examination today, patient is comfortable. She feels much better. She is not in any acute distress. She is maintained on nasal cannula 3 L, saturating 92%. Blood pressure this morning 161/72, heart rate of 64 per minute. Patient is afebrile. EXAMINATION OF THE HEART: S1, S2. EXAMINATION OF THE LUNGS: Bilateral breath sounds are heard. Abdomen is soft, nontender. Examination of the lower extremities shows no evidence of edema. PLASTIC FIXTURE BUILDER exam is grossly intact. Patient moving all 4 extremities. LABS: Labs revealed sodium of 130, potassium 3.7, BUN 62, serum creatinine 3.84, hemoglobin 7.2 g/dL. ASSESSMENT: 1. Acute kidney injury, acute tubular necrosis, initially oliguric, currently nonoliguric. The patient was aggressively diuresed initially following which when she was maintained on IV fluids, she went into the acute respiratory distress and volume overload. The patient has had 5 L of ultrafiltration with hemodialysis 2 days in a row. Her urine output has now improved. I will hold off on hemodialysis. Repeat labs in a.m. and we will reassess tomorrow for need for renal replacement therapy. I feel patient should be able to diurese on her own. 2. Anemia with no active bleeding noted. Severe iron deficiency was noted with iron saturation at 4%. We will start the patient on IV iron. 3. Hyperphosphatemia associated with worsening renal failure, maintained on PhosLo. 4. Chronic kidney disease mineral bone disorder, also on Rocaltrol along with the PhosLo. 5. Hypertension. Continue with the Norvasc for now. 6. History of chronic obstructive pulmonary disease. 7. Lactic acidosis on this admission with hypotension, currently improved. 8. Right midlung pseudotumor, which was mainly fluid in the major fissure on initial admission and improved. 9. History of atrial fibrillation, currently in sinus rhythm, status post cardioversion in July of 2017. 10.Chronic kidney disease stage IIIB to IV with baseline creatinine about 1.5 to 2 mg/dL secondary to nephrosclerosis. PLAN: Continue current dose of Lasix. I will start IV iron. Continue with the Aranesp as well. Hold off on hemodialysis today. Will re-evaluate tomorrow for need for renal replacement therapy. MMODL / IJN: [id number] /
--- NOTE | 2018-01-29 14:54 | PN ---
PROGRESS NOTE DATE OF SERVICE: 01/29/2018 PRESENTING COMPLAINT: Short of breath. INTERVAL HISTORY: Patient initially presented with severe COPD exacerbation and CHF exacerbation. Was on IV Lasix and then went into renal failure. Patient had to be started on dialysis, which he has had for 2 days, that is day before yesterday. No dialysis today. Patient also went into respiratory failure, was there for transfer into ICU. Patient is on 3 L nasal cannula. Did tolerate some diet, making some urine, has got a Castillo catheter in place. Sitting up on a chair. REVIEW OF SYSTEMS: Done for constitutional, cardiovascular, GI, pulmonary; relevant findings as above. PHYSICAL EXAMINATION: Temperature 98, pulse 65, respiration 20, blood pressure 150/71, pulse ox 92% on 3 L. GENERAL APPEARANCE: Sitting up on a chair, awake, tired, but more awake. EYES: Pupils equal, conjunctivae are normal. HEENT: External appearance of nose and ear normal, oral cavity normal. NECK: JVD unable to assess. Mass not palpable. RESPIRATORY: Effort increased. LUNGS: Decreased breath sounds, mild wheezing. CARDIOVASCULAR: First and second sounds are normal, no edema. ABDOMEN: Soft, nontender. Liver and spleen not palpable. PSYCHIATRY: Alert and oriented x3. Mood and affect tired. INVESTIGATIONS: White count 19.4, hemoglobin 7.2, platelets 268. Potassium 3.7, BUN 62, creatinine 3.84. Chest x-ray showing some venous prominence. ASSESSMENT: 1. Relapse of acute on chronic congestive heart failure exacerbation from diastolic dysfunction. Ejection fraction 40%-45% from hypertensive heart disease causing acute pulmonary edema, slow improvement. 2. Acute respiratory failure secondary to pulmonary edema. Patient did require BiPAP, currently on nasal cannula about 3 L. 3. Acute chronic obstructive pulmonary disease exacerbation in an ex-smoker. 4. Paroxysmal atrial fibrillation, currently in sinus rhythm. 5. Chronic kidney disease from hypertensive nephrosclerosis, stage III, status patient's baseline. 6. Chronic left atrophic kidney. 7. Hypertensive heart disease. 8. Chronic rheumatoid arthritis. 9. Hyperlipidemia. 10.Anxiety and depression, not otherwise specified. 11.Hyperkalemia from acute renal failure. 12.Hyponatremia, likely hypovolemic. 13.Acute renal failure probably from ATN, requiring renal placement therapy and dialysis, done in 2 days, starting on 01/27/2018. 14.Metabolic acid renal failure. PLAN: Care was discussed with the patient. Continue current medication and treatment plan. Will move the patient out of the ICU. Patient remains on antibiotics, IV Zosyn. He is also with IV Lasix 60 mg q.12, follow electrolytes closely. Prognosis is guarded. YRN / TRINAN: [id number] /
[2018-01-29] MEDS: SODIUM FERRIC GLUCONAT-SUCROSE 125 MG in SODIUM CHLORIDE 0.9% 100 ML IVPB SCH (15:14)
[2018-01-29 17:16] LABS: Glucose,Whole Blood 178 mg/dL (75-99)
[2018-01-29] MEDS ORDERED: POTASSIUM CHLORIDE ER 20 MEQ TAB.ER PO STA (19:47)
[2018-01-29 20:27] LABS: Glucose,Whole Blood 143 mg/dL (75-99)
[2018-01-30] MEDS: ZOLPIDEM 5 MG TAB PO PRN (00:10)
[2018-01-30 06:29] LABS: Glucose,Whole Blood 116 mg/dL (75-99)
[2018-01-30] MEDS: INSULIN ASPART 100 UNIT/ML 1 ML 10 ML VIAL SQ SCH ×4 (06:33→20:35)
[2018-01-30] MEDS: CALCIUM ACETATE 667 MG CAP PO SCH ×3 (06:42→17:26)
[2018-01-30 07:25] LABS: Anisocytosis Slight; Basophils % (A) 0 %; Eosinophils % (A) 0 %; HCT 24.1 % (34.0-46.0); HGB 7.7 gm/dL (11.4-16.0); Lymphocytes # (A) 0.4 k/uL (1.0-4.8); Lymphocytes % (A) 3 %; MCH 30.3 pg (25.0-35.0); MCHC 31.9 g/dL (31.0-37.0); MCV 94.9 fL (80.0-100.0); Monocytes % (A) 6 %; Neutrophils # (A) 14.6 k/uL (1.3-7.7); Neutrophils % (A) 89 %; Platelet Count 272 k/uL (150-450); RBC 2.53 m/uL (3.80-5.40); RDW 16.3 % (11.5-15.5); WBC 16.5 k/uL (3.8-10.6)
[2018-01-30] MEDS: BUDESONIDE 1 MG/2 ML NEBU INHALATION SCH ×2 (07:38→19:59)
[2018-01-30] MEDS: IPRATROPIUM-ALBUTEROL 3 ML NEB INHALATION SCH ×4 (07:40→19:59)
[2018-01-30] MEDS: FORMOTEROL FUMARATE 20 MCG/2 ML NEBU INHALATION SCH ×2 (07:41→19:59)
[2018-01-30 07:47] LABS: Albumin 2.8 g/dL (3.5-5.0); Calcium 8.8 mg/dL (8.4-10.2); Magnesium 1.9 mg/dL (1.6-2.3); Phosphorus 5.1 mg/dL (2.5-4.5); Potassium 4.2 mmol/L (3.5-5.1); Total Bilirubin 0.6 mg/dL (0.2-1.3); Total Protein 5.5 g/dL (6.3-8.2)
--- NOTE | 2018-01-30 09:27 | P.PN ---
Subjective Progress Note Date: 01/30/18 Principal diagnosis: This 72-year-old patient with COPD and his heart failure was admitted with congestive heart failure, went into acute kidney injury was given IV fluids and then went into respiratory distress and was dialyzed. Last dialysis 2 days ago. Yesterday she did not have any dialysis. Overnight she made 950 mL of urine over the last approximately 12 hours. She had a Castillo catheter that was discontinued early this morning. She is feeling better less short of breath she remains on oxygen with a nasal cannula. Appetite is somewhat poor. She has a Macario catheter in her right groin. Denies any chest pain nausea vomiting. No diarrhea abdominal pain. Objective - Vital Signs Vital signs: Vital Signs Temp 98.1 F 01/30/18 03:51 Pulse 76 01/30/18 07:56 Resp 16 01/30/18 03:52 BP 165/78 01/30/18 03:51 Pulse Ox 94 L 01/30/18 03:51 Intake & Output 01/29/18 01/30/18 01/30/18 18:59 06:59 18:59 Intake Total 850 50 Output Total 380 950 Balance 470 -900 Weight 65 kg 65.5 kg Intake: IV 150 50 Piperacillin-Tazobactam 3 50 50 .375 gm In Dextrose/Water 1 50ml.bag @ 12.5 mls/hr IVPB Q12HR [facility] Rx#: [id number] Sodium Ferric Gluconat- 100 Sucrose 125 mg In Sodium Chloride 0.9% 100 ml @ 100 mls/hr IVPB DAILY [facility] Rx#:[id number] Oral 700 Output: Urine 380 950 Other: Voiding Method Indwelling Catheter Indwelling Catheter On examination she is awake alert oriented comfortable HEENT exam no JVP is noted neck is supple no facial asymmetry Lungs are clear to auscultation occasional mild his an occasional coarse crackle. Good air entry bilaterally Heart sounds are unremarkable for any murmur rub gallop Abdomen soft nontender no organomegaly status masses Extremity exam was trace edema Neurologically awake alert oriented. She has a Macario catheter in the right groin. There is Betadine ointment probably around the entry site therefore difficult to see if she has any cellulitis or exit site infection. - Labs CBC & Chem 7: 01/30/18 06:35 01/30/18 06:35 Labs: Abnormal Lab Results - Last 24 Hours (Table) 01/29/18 01/29/18 01/29/18 Range/Units 12:24 17:11 20:26 WBC (3.8-10.6) k/uL RBC (3.80-5.40) m/uL Hgb (11.4-16.0) gm/dL Hct (34.0-46.0) % RDW (11.5-15.5) % Neutrophils # (1.3-7.7) k/uL Lymphocytes # (1.0-4.8) k/uL Sodium (137-145) mmol/L Chloride (98-107) mmol/L BUN (7-17) mg/dL Creatinine (0.52-1.04) mg/dL POC Glucose (mg/dL) 125 H 178 H 143 H (75-99) mg/dL Phosphorus (2.5-4.5) mg/dL Total Protein (6.3-8.2) g/dL Albumin (3.5-5.0) g/dL 01/30/18 01/30/18 01/30/18 Range/Units 06:26 06:35 06:35 WBC 16.5 H (3.8-10.6) k/uL RBC 2.53 L (3.80-5.40) m/uL Hgb 7.7 L (11.4-16.0) gm/dL Hct 24.1 L (34.0-46.0) % RDW 16.3 H (11.5-15.5) % Neutrophils # 14.6 H (1.3-7.7) k/uL Lymphocytes # 0.4 L (1.0-4.8) k/uL Sodium 129 L (137-145) mmol/L Chloride 92 L (98-107) mmol/L BUN 71 H (7-17) mg/dL Creatinine 4.67 H (0.52-1.04) mg/dL POC Glucose (mg/dL) 116 H (75-99) mg/dL Phosphorus 5.1 H (2.5-4.5) mg/dL Total Protein 5.5 L (6.3-8.2) g/dL Albumin 2.8 L (3.5-5.0) g/dL Microbiology - Last 24 Hours (Table) 01/27/18 09:11 Blood Culture - Preliminary Blood No Growth after 48 hours Assessment and Plan Assessment: Impression 1. Acute kidney injury dialysis dependent. Last dialysis 2 days ago. Etiology is CHF. Had 950 mL of urine although her creatinine gone up from 3.8- 4.6 this morning. Subjectively she is feeling better. 2. Chronic kidney disease Baseline creatinine fluctuating or the last 1 year between 0.9 on 05/10/2017 to 2.97 on 09/11/2017. Therefore difficult to state her CKD stage. 3. Congestive heart failure, improved clinically as well as radiologically.. 4. History of COPD. Currently on nasal cannula oxygen. 5. Anemia hemoglobin 7.7 up from 7.2 6. Hyponatremia, sodium is slowly going on from 131-129, this is from loss of dilutional capacity of the kidney from acute and chronic kidney disease Recommendation. 1. Continue Lasix 60 mg IV every 12 2. Continue close intake and output. 3. Monitor labs daily basis. 4. May need transfusion if hemoglobin goes below 7 as she is fairly short of breath 5. Monitor sodium and restrict water intake
[2018-01-30] MEDS: FUROSEMIDE 10 MG/ML 10 ML VIAL IV SCH ×2 (10:29→20:28)
[2018-01-30] MEDS: CALCITRIOL 0.25 MCG CAP PO SCH (10:29)
[2018-01-30] MEDS: amLODIPine 10 MG TAB PO SCH (10:30)
[2018-01-30] MEDS: ALLOPURINOL 100 MG TAB PO SCH (10:30)
[2018-01-30] MEDS: hydrALAZINE HCL 50 MG TAB PO SCH ×3 (10:30→23:36)
[2018-01-30] MEDS: predniSONE 20 MG TAB PO SCH (10:30)
[2018-01-30] MEDS: METOPROLOL TARTRATE 50 MG TAB PO SCH ×2 (10:30→20:28)
[2018-01-30] MEDS: ATORVASTATIN 20 MG TAB PO SCH (10:30)
[2018-01-30] MEDS: APIXABAN 5 MG TAB PO SCH (10:30)
[2018-01-30] MEDS: SERTRALINE 50 MG TAB PO SCH (10:31)
[2018-01-30] MEDS: AMIODARONE 100 MG TAB PO SCH (10:31)
[2018-01-30] MEDS: SODIUM FERRIC GLUCONAT-SUCROSE 125 MG in SODIUM CHLORIDE 0.9% 100 ML IVPB SCH (10:31)
[2018-01-30] MEDS: PANTOPRAZOLE 40 MG/10 ML VIAL IVP SCH (10:32)
--- NOTE | 2018-01-30 11:43 | P.PN ---
Subjective Progress Note Date: 01/30/18 This is a 72-year-old white female patient with past medical history of COPD, with FEV1 of 42%, chronic congestive heart failure with diastolic dysfunction, pseudotumor of the right lung, essential hypertension, rheumatoid arthritis, osteoarthritis, previous CVA/TIA, who presented to the emergency department today on 01/21/2018 at 4:00 in the morning with complaints of increasing shortness of breath. She states her shortness of breath has gradually become worse, over the past couple of days or so. She denies having any chest pain, no increase in wheezing, no phlegm production. Patient does have a congested cough. She denies any fever or chills, denies any swelling in bilateral extremities. Patient is on nebulizer treatments at home, in addition to her rescue inhaler. Patient has a history of atrial fibrillation, status post successful cardioversion in July 2017. She is on chronic anticoagulation with Eliquis. She remains in sinus rhythm on the monitor. EKG showed normal sinus rhythm with left ventricular hypertrophy with repolarization abnormality, and could not rule out septal infarct of undetermined age. Chest x-ray was completed, and showed airspace consolidation within the right lower lobe, small bilateral pleural effusions, increased interstitial markings and mild interstitial edema. There is a rounded well-circumscribed opacity within the right midlung likely representing fluid tracking within the right major fissure. After reviewing previous chest x-rays from 09/24/2017, and 09/09/2017 , the pseudotumor in the right midlung area seems to be more prominent during exacerbations of CHF. Labs did not show any leukocytosis, WBC is 8.3, hemoglobin is 8.5, INR is 1.3, d-dimer was negative for 0.49, sodium is 1:30, potassium is 3.8, chloride is 94, B1 is 34, creatinine is 1.5. Cardiac enzymes and troponins were negative 1, proBNP is significantly elevated at 12,200. Patient has positive distention of jugular veins bilaterally, no significant peripheral edema, congestive cough. In addition patient has been orthopneic. Patient was started on empiric antibiotics in the form of Zithromax and Rocephin , metolazone 2.5 mg on Thursday and Thursday. She received 1 dose of IV Lasix. We are asked to see the patient in consultation for shortness of breath. On 01/22/2018 patient seen in follow-up on medical surgical floor. States her breathing is improving, although patient does become short of breath with ambulation. No acute distress, pulse ox on 3 L per nasal Was 97%, patient is afebrile, patient has no occasional congestive cough, not able to bring up any sputum, lung sounds are positive for coarse crackles over right posterior lower lobe, diminished breath sounds over left base. Blood cultures remain negative, patient has been diuresed with IV Lasix, and Zaroxolyn, and today's chest x-ray shows interval resolution of the right lung ovoid lesion, the pseudotumor. There is improved right basilar infiltrate and/or atelectasis, improved but persistent small left pleural effusion. Patient still has digital JVD. Overall feeling and breathing better, antibiotics were discontinued per attending physician. On today's lab work the PVC is within normal limits at 8.4 , hemoglobin is 8.4, sodium is 131, chloride is 95, B1 is 43, creatinine is 1.85 , there has been the worsening of the renal profile, we will cut down the IV Lasix to 40 mg once daily. On 01/24/2018 patient seen in follow-up on medical surgical floor. Patient still sounds bronchospastic today, clinically patient states her breathing has improved. 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 Today's labs show sodium of 129, potassium is 4.7, chloride is 90, BUN is 72, and creatinine is 3.63, there has been worsening of the patient's renal profile, yesterday patient was given additional dose of IV Lasix, patient has been voiding, her net fluid balance is hard to estimate, however her weight continues to trend up, today is 63.8 kg, and her admission weight was 61.2 kg. No bilateral lower extremity edema, patient still has positive JVD bilaterally. She continues on IV Solu-Medrol, currently at 40 mg every 8 hours. We will add Pulmicort and Perforomist in addition to patient's DuoNeb. On the 2017 patient seen in follow-up on medical surgical floor. She denies any distress, denies any worsening shortness of breath, room air pulse ox is 96%, patient is afebrile, hemodynamically stable, respirations are even and nonlabored, lung sounds are clear, no rhonchi, no rales or wheezing noted. Lasix remains on hold, today's labs shows worsening of renal profile, BUN is 88 , creatinine is 4.28, nephrology has been consulted. No chest pain, no shortness of breath. She is tolerating oral intake. He is requesting to go home today. The patient is seen again today 01/26/2018 on the regular medical floor. She is awake and alert in no acute distress. She is currently sitting up in chair at the bedside. She denies any cough or congestion. He continues to maintain good O2 saturations in the upper 90s on room air. She's been afebrile. Hemodynamically stable. Chest x-ray is pending and she is currently on DuoNeb inhalations, Pulmicort and Perforomist inhalations. Sodium 123, potassium 5.4, creatinine increased to 5.08. Currently off diuretics. Nephrology on the case. On 01/27/2018 patient is been transferred to the intensive care early this morning, after rapid response team was called for concern of worsening shortness of breath. Stat chest x-ray was taken, and showed increasing pulmonary edema compared to yesterday's exam, consistent with congestive heart failure or ARDS. Patient is in moderately severe respiratory distress, tachypneic, anxious, and complaining of dyspnea, denies chest pain, lung sounds are positive for diffuse rhonchi throughout the lung caceres, patient was found to be hypoxic, with a pulse ox of 88%. Patient was placed on BiPAP support, currently at pressures of 12 6, and 50%. She was given a dose of IV Lasix 80 mg per nephrology, and has made very little urine, in order of 60 mL. Repeat dose of Lasix will be given, today's lab work reveals acute leukocytosis, WBC of 28.6, hemoglobin is 8.5, sodium is 125, potassium is 5.3, chloride is 91, CO2 is 19, B1 is 108, and creatinine is 6.49, there has been a steady decline of her renal function, and nephrology is planning on initiating hemodialysis. Plasma lactic acid was 0.5. He is currently in sinus rhythm, blood pressure is 184/77 with a mean of 112. Low-grade fevers this morning of 99.5F. Patient was transferred to the intensive care, where she is currently on BiPAP support. Vascular surgery has been consulted for emergent placement of temporary hemodialysis catheter. On 01/28/2018 patient seen in follow-up. Yesterday she had her initial hemodialysis treatment with removal of 2-1/2 L of fluid, today he is undergoing repeat hemodialysis treatment. She is breathing easier today, and did require BiPAP support last night, with pressures of 12/6, and 50%, currently on 4 L per nasal cannula with a pulse ox of 92%, patient is afebrile, respirations are even and nonlabored, lung sounds are positive for a few scattered wheezes, no significant rhonchi or rales. Today's chest x-ray shows cardiomegaly, multifocal areas of acute infiltrate in the right lung which has been stable over the last several days, and persistent small left pleural effusion with left basilar infiltrate and/or atelectasis. Patient's urine output has improved , and patient is producing 50-55 ML of urine hourly. Denies any shortness of breath or chest pain, denies any palpitations. She remains in sinus rhythm with a controlled rate. Today's lab work has been reviewed, shows WBC of 26.3, hemoglobin is 7.6, sodium is 131, potassium is 3.9, chloride is 94, BUN is 81, and creatinine is 4.74, there has been improvement in patient's renal profile. Blood and urine cultures remain negative thus far, patient was placed on empiric antibiotics in the form of Zosyn. 01/29/2018, the patient is resting comfortably in bed. She is not having any significant respiratory distress. She had [id number] dialysis with ultrafiltration and currently she is producing urine output and I discussed the case with nephrology and will skip dialysis for today. No fever. No chills. No chest pain. She has a dialysis catheter in her right groin. BiPAP was discontinued. A follow-up chest x-ray from today shows some increasing right upper lobe pulmonary infiltrate and this is consistent with atypical pulmonary edema. The previously described right lower lobe and the left basilar lobe pulmonary infiltrates have improved. The patient has a net fluid balance of -1 L over the past 24 hours. The hemoglobin is stable at 7.2. White cell count is at 19.4 and it is down trending. On today's blood work, the patient doesn't have any significant metabolic acidosis. BNP is a 62 and the creatinine is at 3.8. The patient is currently on a prednisone burst taper. The patient is on DuoNeb nebulized treatments around the clock. She is also receiving 60 mg IV Lasix every 12 hours. 01/30/2018, the patient has moved out of the intensive care unit. The patient is stable for now. The patient will not have dialysis today. She is producing urine output. She is on Lasix 60 mg IV push every 12 hours. No nausea. No vomiting. No altered mentation. Pulse ox 96% of the Suboxone by nasal cannula. Hemodynamically stable. In volume is also stable at 7.7. The patient will be receiving IV iron. On today's blood work, the patient's BUN is at 71 with a creatinine of 4.6. Objective - Vital Signs Vital signs: Vital Signs Temp 98.0 F 01/30/18 08:00 Pulse 73 01/30/18 08:00 Resp 18 01/30/18 08:00 BP 161/74 01/30/18 08:00 Pulse Ox 96 01/30/18 08:00 Intake & Output 01/29/18 01/30/18 01/30/18 18:59 06:59 18:59 Intake Total 850 50 Output Total 380 950 Balance 470 -900 Weight 65 kg 65.5 kg Intake: IV 150 50 Piperacillin-Tazobactam 3 50 50 .375 gm In Dextrose/Water 1 50ml.bag @ 12.5 mls/hr IVPB Q12HR [facility] Rx#: [id number] Sodium Ferric Gluconat- 100 Sucrose 125 mg In Sodium Chloride 0.9% 100 ml @ 100 mls/hr IVPB DAILY [facility] Rx#:[id number] Oral 700 Output: Urine 380 950 Other: Voiding Method Indwelling Catheter Indwelling Catheter - Exam GENERAL EXAM: Alert, pleasant 72-year-old white female comfortable in bed and the patient is not in acute respiratory distress. HEAD: Normocephalic/atraumatic. EYES: Normal reaction of pupils, equal size. Conjunctiva pink, sclera white. NOSE: Clear with pink turbinates. THROAT: No erythema or exudates. NECK: No masses, no thyroid enlargement, no adenopathy. Positive JVD bilaterally CHEST: No chest wall deformity. Symmetrical expansion. LUNGS: Lung sounds are positive for diffuse rhonchi throughout the lung caceres CVS: Regular rate and rhythm, normal S1 and S2, no gallops, no murmurs, no rubs ABDOMEN: Soft, nontender. No hepatosplenomegaly, normal bowel sounds, no guarding or rigidity. EXTREMITIES: No clubbing, no edema, no cyanosis, 2+ pulses and upper and lower extremities. MUSCULOSKELETAL: Muscle strength and tone normal. SPINE: No scoliosis or deformity SKIN: No rashes CENTRAL NERVOUS SYSTEM: Alert and oriented -3. No focal deficits, tone is normal in all 4 extremities. PSYCHIATRIC: Alert and oriented -3. Appropriate affect. Intact judgment and insight. - Labs CBC & Chem 7: 01/30/18 06:35 01/30/18 06:35 Labs: Abnormal Lab Results - Last 24 Hours (Table) 01/29/18 01/29/18 01/29/18 Range/Units 12:24 17:11 20:26 WBC (3.8-10.6) k/uL RBC (3.80-5.40) m/uL Hgb (11.4-16.0) gm/dL Hct (34.0-46.0) % RDW (11.5-15.5) % Neutrophils # (1.3-7.7) k/uL Lymphocytes # (1.0-4.8) k/uL Sodium (137-145) mmol/L Chloride (98-107) mmol/L BUN (7-17) mg/dL Creatinine (0.52-1.04) mg/dL POC Glucose (mg/dL) 125 H 178 H 143 H (75-99) mg/dL Phosphorus (2.5-4.5) mg/dL Total Protein (6.3-8.2) g/dL Albumin (3.5-5.0) g/dL 01/30/18 01/30/18 01/30/18 Range/Units 06:26 06:35 06:35 WBC 16.5 H (3.8-10.6) k/uL RBC 2.53 L (3.80-5.40) m/uL Hgb 7.7 L (11.4-16.0) gm/dL Hct 24.1 L (34.0-46.0) % RDW 16.3 H (11.5-15.5) % Neutrophils # 14.6 H (1.3-7.7) k/uL Lymphocytes # 0.4 L (1.0-4.8) k/uL Sodium 129 L (137-145) mmol/L Chloride 92 L (98-107) mmol/L BUN 71 H (7-17) mg/dL Creatinine 4.67 H (0.52-1.04) mg/dL POC Glucose (mg/dL) 116 H (75-99) mg/dL Phosphorus 5.1 H (2.5-4.5) mg/dL Total Protein 5.5 L (6.3-8.2) g/dL Albumin 2.8 L (3.5-5.0) g/dL Microbiology - Last 24 Hours (Table) 01/27/18 09:11 Blood Culture - Preliminary Blood No Growth after 48 hours Assessment and Plan Plan: #1. Acute hypoxemic respiratory failure secondary to acute pulmonary edema, improved with hemodialysis and ultrafiltration , currently feeling better and the patient is not having any acute respiratory distress #2. Lactic acidosis, recovered #3. Acute kidney injury likely related to diuresis, hemodialysis has been initiated, patient had 2 treatments so far, and the patient is being monitored as the patient is producing urine output. Creatinine is on the rise today yet the patient shows no signs of any major fluid overload or electrolyte imbalance. The patient is on IV Lasix. #4. Acute exacerbation of chronic obstructive pulmonary disease, improving and the patient is currently on DuoNeb and prednisone burst taper. Currently on 20 mg of prednisone. #5. History of severe COPD, with underlying FEV1 of 43% of predicted. #6. Right midlung pseudotumor with fluid in the major fissure seen on the chest x-ray, compared to previous studies, and appears to be more prominent during times of CHF exacerbation. Right basilar infiltrate, possibly related to atelectasis, cannot entirely rule out pneumonia #7. History of A. fib, status post successful cardioversion in July 2017 currently in sinus rhythm, on chronic anticoagulation with Eliquis #8. History of chronic kidney disease secondary to nephrosclerosis #9. Hypertension #10. Hyperlipidemia #11. Rheumatoid arthritis #12. History of nicotine dependence, currently in remission #13. Chronic anemia, hemoglobin is at 7.7 and the patient is receiving IV iron #14. Hyponatremia, improvement in the sodium level is up to 129 Plan No dialysis for today. Continue Lasix. Continue urine output monitoring. Monitor the neck fluid balance. We'll continue to follow. The patient is out of the intensive care unit. The patient is stable for now. It will be very important to monitor the renal function and assess the volume status over the next 24-48 hours. Nephrology is on the case. We'll continue to follow.
[2018-01-30 12:16] LABS: Glucose,Whole Blood 112 mg/dL (75-99)
--- NOTE | 2018-01-30 13:33 | P.PN ---
Subjective 72-year-old female admitted for severe COPD exacerbation CHF exacerbation patient is on IV Lasix and the patient is urinating patient the was started on hemodialysis here patient is not undergoing hematemesis today patient is pale euvolemic at this Point of time. Is on anticoagulation with eliquis for atrial fibrillation. Patient is off oxygen at this point of time. Patient is fairly good air entry into bilateral lung caceres. Anti-coagulation dose is being increased because of renal dysfunction. Constitutional: Denied any fatigue denied any fever. Cardio vascular: denied any chest pain, palpitations Gastrointestinal denied any nausea vomiting Pulmonary: Denied any shortness of breath cough Neurologic denied any new focal deficits Objective - Vital Signs Vital signs: Vital Signs Temp 98.0 F 01/30/18 08:00 Pulse 80 01/30/18 12:02 Resp 18 01/30/18 08:00 BP 161/74 01/30/18 08:00 Pulse Ox 96 01/30/18 08:00 Intake & Output 01/29/18 01/30/18 01/30/18 18:59 06:59 18:59 Intake Total 850 50 Output Total 380 950 Balance 470 -900 Weight 65 kg 65.5 kg Intake: IV 150 50 Piperacillin-Tazobactam 3 50 50 .375 gm In Dextrose/Water 1 50ml.bag @ 12.5 mls/hr IVPB Q12HR [facility] Rx#: [id number] Sodium Ferric Gluconat- 100 Sucrose 125 mg In Sodium Chloride 0.9% 100 ml @ 100 mls/hr IVPB DAILY [facility] Rx#:[id number] Oral 700 Output: Urine 380 950 Other: Voiding Method Indwelling Catheter Indwelling Catheter - Exam PHYSICAL EXAMINATION: GENERAL: The patient is alert and oriented x3, not in any acute distress. Well developed, well nourished. HEENT: Pupils are round and equally reacting to light. EOMI. No scleral icterus. No conjunctival pallor. Normocephalic, atraumatic. No pharyngeal erythema. No thyromegaly. CARDIOVASCULAR: S1 and S2 present. No murmurs, rubs, or gallops. PULMONARY: Chest is clear to auscultation, no wheezing or crackles. ABDOMEN: Soft, nontender, nondistended, normoactive bowel sounds. No palpable organomegaly. MUSCULOSKELETAL: No joint swelling or deformity. EXTREMITIES: No cyanosis, clubbing, or pedal edema. NEUROLOGICAL: Gross neurological examination did not reveal any focal deficits. SKIN: No rashes. - Labs CBC & Chem 7: 01/30/18 06:35 01/30/18 06:35 Labs: Abnormal Lab Results - Last 24 Hours (Table) 01/29/18 01/29/18 01/30/18 Range/Units 17:11 20:26 06:26 WBC (3.8-10.6) k/uL RBC (3.80-5.40) m/uL Hgb (11.4-16.0) gm/dL Hct (34.0-46.0) % RDW (11.5-15.5) % Neutrophils # (1.3-7.7) k/uL Lymphocytes # (1.0-4.8) k/uL Sodium (137-145) mmol/L Chloride (98-107) mmol/L BUN (7-17) mg/dL Creatinine (0.52-1.04) mg/dL POC Glucose (mg/dL) 178 H 143 H 116 H (75-99) mg/dL Phosphorus (2.5-4.5) mg/dL Total Protein (6.3-8.2) g/dL Albumin (3.5-5.0) g/dL 01/30/18 01/30/18 01/30/18 Range/Units 06:35 06:35 12:04 WBC 16.5 H (3.8-10.6) k/uL RBC 2.53 L (3.80-5.40) m/uL Hgb 7.7 L (11.4-16.0) gm/dL Hct 24.1 L (34.0-46.0) % RDW 16.3 H (11.5-15.5) % Neutrophils # 14.6 H (1.3-7.7) k/uL Lymphocytes # 0.4 L (1.0-4.8) k/uL Sodium 129 L (137-145) mmol/L Chloride 92 L (98-107) mmol/L BUN 71 H (7-17) mg/dL Creatinine 4.67 H (0.52-1.04) mg/dL POC Glucose (mg/dL) 112 H (75-99) mg/dL Phosphorus 5.1 H (2.5-4.5) mg/dL Total Protein 5.5 L (6.3-8.2) g/dL Albumin 2.8 L (3.5-5.0) g/dL Microbiology - Last 24 Hours (Table) 01/27/18 09:11 Blood Culture - Preliminary Blood No Growth after 72 hours Assessment and Plan Plan: Acute hypoxic respiratory failure secondary to his heart failure exacerbation and the patient is presently on hemodialysis and also receiving Lasix and patient is making urine and which will be continued and repeat basic metabolic profile tomorrow. Patient will not undergo hemodialysis today. -Lactic acidosis resolved now probably secondary to poor organ perfusion -Possible aspiration pneumonia for which patient was on Zosyn which was switched to Augmentin -Acute exacerbation of COPD -Right midlung pseudotumor -Atrial fibrillation rate controlled at this time and anti-correlation dose was decreased -Hypertension next and-hyperlipidemia -End-stage renal disease presently hemodialysis dependent -Hyperlipidemia -Rheumatoid arthritis -Anemia of chronic kidney disease -Hyponatremia expected to improve with hemodialysis appears to have hypervolemic hyponatremia patient also is presently euvolemic
[2018-01-30] MEDS: PIPERACILLIN-TAZOBACTAM 3.375 GM in DEXTROSE/WATER 1 50ML.BAG IVPB SCH (14:54)
[2018-01-30 17:22] LABS: Glucose,Whole Blood 161 mg/dL (75-99)
[2018-01-30] MEDS: AMOXIC-POT CLAV 875-125MG 1 EACH TAB PO SCH (20:29)
[2018-01-30] MEDS: APIXABAN 2.5 MG TABLET PO SCH (20:29)
[2018-01-30 20:33] LABS: Glucose,Whole Blood 160 mg/dL (75-99)
[2018-01-31] MEDS ORDERED: ZOLPIDEM 5 MG TAB PO STA (01:07)
[2018-01-31 05:52] LABS: Glucose,Whole Blood 112 mg/dL (75-99)
[2018-01-31] MEDS: INSULIN ASPART 100 UNIT/ML 1 ML 10 ML VIAL SQ SCH ×4 (06:00→21:51)
[2018-01-31] MEDS: CALCIUM ACETATE 667 MG CAP PO SCH ×3 (06:07→17:44)
[2018-01-31 06:57] LABS: Anisocytosis Slight; Basophils % (A) 0 %; Eosinophils % (A) 0 %; HCT 23.9 % (34.0-46.0); HGB 7.5 gm/dL (11.4-16.0); Lymphocytes # (A) 0.6 k/uL (1.0-4.8); Lymphocytes % (A) 4 %; MCH 29.3 pg (25.0-35.0); MCHC 31.4 g/dL (31.0-37.0); MCV 93.2 fL (80.0-100.0); Mean Platelet Volume 7.5; Monocytes # (A) 0.8 k/uL (0-1.0); Monocytes % (A) 6 %; Neutrophils # (A) 12.5 k/uL (1.3-7.7); Neutrophils % (A) 87 %; Platelet Count 273 k/uL (150-450); RBC 2.57 m/uL (3.80-5.40); RDW 16.3 % (11.5-15.5); WBC 14.4 k/uL (3.8-10.6)
[2018-01-31 07:00] LABS: Albumin 2.8 g/dL (3.5-5.0); Magnesium 1.9 mg/dL (1.6-2.3); Phosphorus 4.8 mg/dL (2.5-4.5); Total Bilirubin 0.6 mg/dL (0.2-1.3); Total Protein 5.3 g/dL (6.3-8.2)
[2018-01-31] MEDS: FORMOTEROL FUMARATE 20 MCG/2 ML NEBU INHALATION SCH ×2 (07:58→20:54)
[2018-01-31] MEDS: IPRATROPIUM-ALBUTEROL 3 ML NEB INHALATION SCH ×4 (07:58→20:54)
[2018-01-31] MEDS: BUDESONIDE 1 MG/2 ML NEBU INHALATION SCH ×2 (07:58→20:54)
--- NOTE | 2018-01-31 10:01 | P.PN ---
Subjective Progress Note Date: 01/31/18 Principal diagnosis: This 72-year-old patient with COPD and his heart failure was admitted with congestive heart failure, went into acute kidney injury was given IV fluids and then went into respiratory distress and was dialyzed. Last dialysis 3 days ago. She continues to feel subjectively better. She is on nasal cannula oxygen and denies any shortness of breath. No nausea vomiting appetite is fair no dizziness when she stands up. Her urine output though is somewhat low at 685 mL. This is a non Castillo catheter urine output documentation and may not be accurate. Her creatinine though is slightly up from 3.84, to 4.67, to 4.92 this morning. She has a Macario catheter in her right groin. Denies any chest pain nausea vomiting. No diarrhea abdominal pain. Objective - Vital Signs Vital signs: Vital Signs Temp 97.4 F L 01/31/18 04:00 Pulse 86 01/31/18 08:17 Resp 20 01/31/18 08:00 BP 154/75 01/31/18 08:00 Pulse Ox 100 01/31/18 08:00 Intake & Output 01/30/18 01/31/18 01/31/18 18:59 06:59 18:59 Intake Total 100 Output Total 685 Balance -585 Weight 65.5 kg Intake: IV 100 Sodium Ferric Gluconat- 100 Sucrose 125 mg In Sodium Chloride 0.9% 100 ml @ 100 mls/hr IVPB DAILY [facility] Rx#:[id number] Output: Urine 685 Straight 280 Other: # Voids 2 On examination she is awake alert oriented comfortable. She is on nasal cannula oxygen. HEENT exam no JVP neck is supple no facial asymmetry Lungs are significant for mild wheezing bilaterally no crackles were heard good air entry bilaterally, her last chest x-ray on 01/29/2018 had shown improvement in pulmonary edema. Heart sounds are unremarkable for any murmur rub gallop Abdomen is soft nontender non-distended Extremity examination reveals no edema Neurologically awake alert oriented. - Labs CBC & Chem 7: 01/31/18 06:01 01/31/18 06:01 Labs: Abnormal Lab Results - Last 24 Hours (Table) 01/30/18 01/30/18 01/30/18 Range/Units 12:04 17:20 20:31 WBC (3.8-10.6) k/uL RBC (3.80-5.40) m/uL Hgb (11.4-16.0) gm/dL Hct (34.0-46.0) % RDW (11.5-15.5) % Neutrophils # (1.3-7.7) k/uL Lymphocytes # (1.0-4.8) k/uL Sodium (137-145) mmol/L Chloride (98-107) mmol/L BUN (7-17) mg/dL Creatinine (0.52-1.04) mg/dL POC Glucose (mg/dL) 112 H 161 H 160 H (75-99) mg/dL Phosphorus (2.5-4.5) mg/dL Total Protein (6.3-8.2) g/dL Albumin (3.5-5.0) g/dL 01/31/18 01/31/18 01/31/18 Range/Units 05:51 06:01 06:01 WBC 14.4 H (3.8-10.6) k/uL RBC 2.57 L (3.80-5.40) m/uL Hgb 7.5 L (11.4-16.0) gm/dL Hct 23.9 L (34.0-46.0) % RDW 16.3 H (11.5-15.5) % Neutrophils # 12.5 H (1.3-7.7) k/uL Lymphocytes # 0.6 L (1.0-4.8) k/uL Sodium 128 L (137-145) mmol/L Chloride 89 L (98-107) mmol/L BUN 78 H (7-17) mg/dL Creatinine 4.92 H (0.52-1.04) mg/dL POC Glucose (mg/dL) 112 H (75-99) mg/dL Phosphorus 4.8 H (2.5-4.5) mg/dL Total Protein 5.3 L (6.3-8.2) g/dL Albumin 2.8 L (3.5-5.0) g/dL Microbiology - Last 24 Hours (Table) 01/27/18 09:11 Blood Culture - Preliminary Blood No Growth after 72 hours Assessment and Plan Assessment: Impression 1. Acute kidney injury dialysis dependent. Last dialysis 3 days ago. Etiology is CHF, cardiorenal syndrome. Off dialysis urine output is somewhat low and creatinine is slowly inching up again from 3.84 to 4.67- to 4.92. . Subjectively she is feeling better. She has a Macario in her right groin 2. Chronic kidney disease Baseline creatinine fluctuating or the last 1 year between 0.9 on 05/10/2017 to 2.97 on 09/11/2017. Therefore difficult to state her CKD stage. 3. Congestive heart failure, improved clinically as well as radiologically.. 4. History of COPD. Currently on nasal cannula oxygen. Currently refusing 5. Anemia hemoglobin 7.7 up from 7.2 > 7.5 6. Hyponatremia, sodium is slowly going on from 131-129 > 128, this is from loss of dilutional capacity of the kidney from acute and chronic kidney disease Recommendation. 1. May need reinstitution of dialysis, no urgent need for dialysis today, we will watch and reassess tomorrow with labs and clinical response. 2. Continue Lasix 60 mg IV every 12 2. Continue close intake and output. 3. Monitor labs daily basis. 4. May need transfusion if hemoglobin goes below 7 as she is fairly short of breath 5. Monitor sodium and restrict water intake
[2018-01-31] MEDS: SODIUM FERRIC GLUCONAT-SUCROSE 125 MG in SODIUM CHLORIDE 0.9% 100 ML IVPB SCH (10:20)
[2018-01-31] MEDS: FUROSEMIDE 10 MG/ML 10 ML VIAL IV SCH ×2 (10:21→21:48)
[2018-01-31] MEDS: PANTOPRAZOLE 40 MG/10 ML VIAL IVP SCH (10:21)
[2018-01-31] MEDS: AMIODARONE 100 MG TAB PO SCH (10:22)
[2018-01-31] MEDS: APIXABAN 2.5 MG TABLET PO SCH ×2 (10:22→21:47)
[2018-01-31] MEDS: CALCITRIOL 0.25 MCG CAP PO SCH (10:22)
[2018-01-31] MEDS: AMOXIC-POT CLAV 875-125MG 1 EACH TAB PO SCH ×2 (10:22→21:48)
[2018-01-31] MEDS: METOPROLOL TARTRATE 50 MG TAB PO SCH ×2 (10:22→21:47)
[2018-01-31] MEDS: ALLOPURINOL 100 MG TAB PO SCH (10:22)
[2018-01-31] MEDS: hydrALAZINE HCL 50 MG TAB PO SCH ×3 (10:22→21:49)
[2018-01-31] MEDS: SERTRALINE 50 MG TAB PO SCH (10:23)
[2018-01-31] MEDS: amLODIPine 10 MG TAB PO SCH (10:23)
[2018-01-31] MEDS: ATORVASTATIN 20 MG TAB PO SCH (10:24)
--- NOTE | 2018-01-31 10:49 | XR ---
EXAMINATION TYPE: XR chest 1V DATE OF EXAM: 01/31/2018 HISTORY: chf. REFERENCE: Previous study dated 01/29/2018. FINDINGS: There is a worsening right upper lobe infiltrate. There is vascular congestion, borderline cardiomegaly and vascular congestion. There is interstitial change. IMPRESSION: WORSENING CHANGES OF CONGESTIVE HEART FAILURE. CONFLUENT OPACITY IN THE RIGHT UPPER LOBE MAY REPRESEN T CONFLUENT EDEMA OR PNEUMONIA.
[2018-01-31] MEDS: predniSONE 20 MG TAB PO SCH (10:51)
[2018-01-31 11:40] LABS: Glucose,Whole Blood 151 mg/dL (75-99)
--- NOTE | 2018-01-31 11:47 | P.PN ---
Subjective Progress Note Date: 01/31/18 Principal diagnosis: Acute exacerbation of congestive heart failure with diastolic dysfunction, COPD This is a 72-year-old white female patient with past medical history of COPD, with FEV1 of 42%, chronic congestive heart failure with diastolic dysfunction, pseudotumor of the right lung, essential hypertension, rheumatoid arthritis, osteoarthritis, previous CVA/TIA, who presented to the emergency department today on 01/21/2018 at 4:00 in the morning with complaints of increasing shortness of breath. She states her shortness of breath has gradually become worse, over the past couple of days or so. She denies having any chest pain, no increase in wheezing, no phlegm production. Patient does have a congested cough. She denies any fever or chills, denies any swelling in bilateral extremities. Patient is on nebulizer treatments at home, in addition to her rescue inhaler. Patient has a history of atrial fibrillation, status post successful cardioversion in July 2017. She is on chronic anticoagulation with Eliquis. She remains in sinus rhythm on the monitor. EKG showed normal sinus rhythm with left ventricular hypertrophy with repolarization abnormality, and could not rule out septal infarct of undetermined age. Chest x-ray was completed, and showed airspace consolidation within the right lower lobe, small bilateral pleural effusions, increased interstitial markings and mild interstitial edema. There is a rounded well-circumscribed opacity within the right midlung likely representing fluid tracking within the right major fissure. After reviewing previous chest x-rays from 09/24/2017, and 09/09/2017 , the pseudotumor in the right midlung area seems to be more prominent during exacerbations of CHF. Labs did not show any leukocytosis, WBC is 8.3, hemoglobin is 8.5, INR is 1.3, d-dimer was negative for 0.49, sodium is 1:30, potassium is 3.8, chloride is 94, B1 is 34, creatinine is 1.5. Cardiac enzymes and troponins were negative 1, proBNP is significantly elevated at 12,200. Patient has positive distention of jugular veins bilaterally, no significant peripheral edema, congestive cough. In addition patient has been orthopneic. Patient was started on empiric antibiotics in the form of Zithromax and Rocephin , metolazone 2.5 mg on Thursday and Thursday. She received 1 dose of IV Lasix. We are asked to see the patient in consultation for shortness of breath. On 01/22/2018 patient seen in follow-up on medical surgical floor. States her breathing is improving, although patient does become short of breath with ambulation. No acute distress, pulse ox on 3 L per nasal Was 97%, patient is afebrile, patient has no occasional congestive cough, not able to bring up any sputum, lung sounds are positive for coarse crackles over right posterior lower lobe, diminished breath sounds over left base. Blood cultures remain negative, patient has been diuresed with IV Lasix, and Zaroxolyn, and today's chest x-ray shows interval resolution of the right lung ovoid lesion, the pseudotumor. There is improved right basilar infiltrate and/or atelectasis, improved but persistent small left pleural effusion. Patient still has digital JVD. Overall feeling and breathing better, antibiotics were discontinued per attending physician. On today's lab work the PVC is within normal limits at 8.4 , hemoglobin is 8.4, sodium is 131, chloride is 95, B1 is 43, creatinine is 1.85 , there has been the worsening of the renal profile, we will cut down the IV Lasix to 40 mg once daily. On 01/24/2018 patient seen in follow-up on medical surgical floor. Patient still sounds bronchospastic today, clinically patient states her breathing has improved. 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 Today's labs show sodium of 129, potassium is 4.7, chloride is 90, BUN is 72, and creatinine is 3.63, there has been worsening of the patient's renal profile, yesterday patient was given additional dose of IV Lasix, patient has been voiding, her net fluid balance is hard to estimate, however her weight continues to trend up, today is 63.8 kg, and her admission weight was 61.2 kg. No bilateral lower extremity edema, patient still has positive JVD bilaterally. She continues on IV Solu-Medrol, currently at 40 mg every 8 hours. We will add Pulmicort and Perforomist in addition to patient's DuoNeb. On the 2017 patient seen in follow-up on medical surgical floor. She denies any distress, denies any worsening shortness of breath, room air pulse ox is 96%, patient is afebrile, hemodynamically stable, respirations are even and nonlabored, lung sounds are clear, no rhonchi, no rales or wheezing noted. Lasix remains on hold, today's labs shows worsening of renal profile, BUN is 88 , creatinine is 4.28, nephrology has been consulted. No chest pain, no shortness of breath. She is tolerating oral intake. He is requesting to go home today. The patient is seen again today 01/26/2018 on the regular medical floor. She is awake and alert in no acute distress. She is currently sitting up in chair at the bedside. She denies any cough or congestion. He continues to maintain good O2 saturations in the upper 90s on room air. She's been afebrile. Hemodynamically stable. Chest x-ray is pending and she is currently on DuoNeb inhalations, Pulmicort and Perforomist inhalations. Sodium 123, potassium 5.4, creatinine increased to 5.08. Currently off diuretics. Nephrology on the case. On 01/27/2018 patient is been transferred to the intensive care early this morning, after rapid response team was called for concern of worsening shortness of breath. Stat chest x-ray was taken, and showed increasing pulmonary edema compared to yesterday's exam, consistent with congestive heart failure or ARDS. Patient is in moderately severe respiratory distress, tachypneic, anxious, and complaining of dyspnea, denies chest pain, lung sounds are positive for diffuse rhonchi throughout the lung caceres, patient was found to be hypoxic, with a pulse ox of 88%. Patient was placed on BiPAP support, currently at pressures of 12 6, and 50%. She was given a dose of IV Lasix 80 mg per nephrology, and has made very little urine, in order of 60 mL. Repeat dose of Lasix will be given, today's lab work reveals acute leukocytosis, WBC of 28.6, hemoglobin is 8.5, sodium is 125, potassium is 5.3, chloride is 91, CO2 is 19, B1 is 108, and creatinine is 6.49, there has been a steady decline of her renal function, and nephrology is planning on initiating hemodialysis. Plasma lactic acid was 0.5. He is currently in sinus rhythm, blood pressure is 184/77 with a mean of 112. Low-grade fevers this morning of 99.5F. Patient was transferred to the intensive care, where she is currently on BiPAP support. Vascular surgery has been consulted for emergent placement of temporary hemodialysis catheter. On 01/28/2018 patient seen in follow-up. Yesterday she had her initial hemodialysis treatment with removal of 2-1/2 L of fluid, today he is undergoing repeat hemodialysis treatment. She is breathing easier today, and did require BiPAP support last night, with pressures of 12/6, and 50%, currently on 4 L per nasal cannula with a pulse ox of 92%, patient is afebrile, respirations are even and nonlabored, lung sounds are positive for a few scattered wheezes, no significant rhonchi or rales. Today's chest x-ray shows cardiomegaly, multifocal areas of acute infiltrate in the right lung which has been stable over the last several days, and persistent small left pleural effusion with left basilar infiltrate and/or atelectasis. Patient's urine output has improved , and patient is producing 50-55 ML of urine hourly. Denies any shortness of breath or chest pain, denies any palpitations. She remains in sinus rhythm with a controlled rate. Today's lab work has been reviewed, shows WBC of 26.3, hemoglobin is 7.6, sodium is 131, potassium is 3.9, chloride is 94, BUN is 81, and creatinine is 4.74, there has been improvement in patient's renal profile. Blood and urine cultures remain negative thus far, patient was placed on empiric antibiotics in the form of Zosyn. On 01/31/2018 patient seen in follow-up on selective care unit. She is resting comfortably in bed, in no acute distress, patient is scheduled for on the hemodialysis treatment today, no worsening shortness of breath, currently on 2 L per nasal cannula, her pulse ox is 94%, lung sounds are positive for some bibasilar crackles, good air entry noted bilaterally, no wheezing, no rhonchi. Patient was able to sit up in the chair yesterday, tolerated activity fairly well, no lower extremity edema. Today's chest x-ray shows worsening changes of congestive heart failure, vascular congestion, borderline cardiomegaly. Patient 's Castillo catheter has been discontinued, and patient has been voiding. Labs have been reviewed, and obesity is 14.4, 7.5, sodium is 128, chloride is 89, creatinine is 78, and creatinine is 4.92. Nephrology is following, and is planning on another hemodialysis treatment. Objective - Vital Signs Vital signs: Vital Signs Temp 97.4 F L 01/31/18 04:00 Pulse 68 01/31/18 11:28 Resp 20 01/31/18 11:28 BP 154/75 01/31/18 08:00 Pulse Ox 100 01/31/18 08:00 Intake & Output 01/30/18 01/31/18 01/31/18 18:59 06:59 18:59 Intake Total 100 Output Total 685 Balance -585 Weight 65.5 kg Intake: IV 100 Sodium Ferric Gluconat- 100 Sucrose 125 mg In Sodium Chloride 0.9% 100 ml @ 100 mls/hr IVPB DAILY [facility] Rx#:[id number] Output: Urine 685 Straight 280 Other: # Voids 2 - Exam GENERAL EXAM: Alert, pleasant 72-year-old white female comfortable in moderate to severe amount of respiratory distress, currently off BiPAP support, currently on 4 L of oxygen with a pulse ox of 96% HEAD: Normocephalic/atraumatic. EYES: Normal reaction of pupils, equal size. Conjunctiva pink, sclera white. NOSE: Clear with pink turbinates. THROAT: No erythema or exudates. NECK: No masses, no thyroid enlargement, no adenopathy. Positive JVD bilaterally CHEST: No chest wall deformity. Symmetrical expansion. LUNGS: Lung sounds are positive for a few bibasilar rales CVS: Regular rate and rhythm, normal S1 and S2, no gallops, no murmurs, no rubs ABDOMEN: Soft, nontender. No hepatosplenomegaly, normal bowel sounds, no guarding or rigidity. EXTREMITIES: No clubbing, no edema, no cyanosis, 2+ pulses and upper and lower extremities. MUSCULOSKELETAL: Muscle strength and tone normal. SPINE: No scoliosis or deformity SKIN: No rashes CENTRAL NERVOUS SYSTEM: Alert and oriented -3. No focal deficits, tone is normal in all 4 extremities. PSYCHIATRIC: Alert and oriented -3. Appropriate affect. Intact judgment and insight. - Labs CBC & Chem 7: 01/31/18 06:01 01/31/18 06:01 Labs: Abnormal Lab Results - Last 24 Hours (Table) 01/30/18 01/30/18 01/30/18 Range/Units 12:04 17:20 20:31 WBC (3.8-10.6) k/uL RBC (3.80-5.40) m/uL Hgb (11.4-16.0) gm/dL Hct (34.0-46.0) % RDW (11.5-15.5) % Neutrophils # (1.3-7.7) k/uL Lymphocytes # (1.0-4.8) k/uL Sodium (137-145) mmol/L Chloride (98-107) mmol/L BUN (7-17) mg/dL Creatinine (0.52-1.04) mg/dL POC Glucose (mg/dL) 112 H 161 H 160 H (75-99) mg/dL Phosphorus (2.5-4.5) mg/dL Total Protein (6.3-8.2) g/dL Albumin (3.5-5.0) g/dL 01/31/18 01/31/18 01/31/18 Range/Units 05:51 06:01 06:01 WBC 14.4 H (3.8-10.6) k/uL RBC 2.57 L (3.80-5.40) m/uL Hgb 7.5 L (11.4-16.0) gm/dL Hct 23.9 L (34.0-46.0) % RDW 16.3 H (11.5-15.5) % Neutrophils # 12.5 H (1.3-7.7) k/uL Lymphocytes # 0.6 L (1.0-4.8) k/uL Sodium 128 L (137-145) mmol/L Chloride 89 L (98-107) mmol/L BUN 78 H (7-17) mg/dL Creatinine 4.92 H (0.52-1.04) mg/dL POC Glucose (mg/dL) 112 H (75-99) mg/dL Phosphorus 4.8 H (2.5-4.5) mg/dL Total Protein 5.3 L (6.3-8.2) g/dL Albumin 2.8 L (3.5-5.0) g/dL Microbiology - Last 24 Hours (Table) 01/27/18 09:11 Blood Culture - Preliminary Blood No Growth after 72 hours Assessment and Plan Plan: Assessment: #1. Acute hypoxemic respiratory failure secondary to acute pulmonary edema, consistent with acute exacerbation of congestive heart failure with systolic dysfunction, fluid overload, improved, although patient was initiated on hemodialysis treatment, received 3 initial exchanges and is scheduled for another one today. #2. Leukocytosis, possibly stress induced. Patient has a low-grade fever, and lactic acid is 0.5 #3. Acute kidney injury likely related to diuresis, hemodialysis has been initiated, patient had 3 treatments so far, and renal profile is improving #4. Acute exacerbation of chronic obstructive pulmonary disease. #5. History of severe COPD, with underlying FEV1 of 43% of predicted. #6. Right midlung pseudotumor with fluid in the major fissure seen on the chest x-ray, compared to previous studies, and appears to be more prominent during times of CHF exacerbation. Right basilar infiltrate, possibly related to atelectasis, cannot entirely rule out pneumonia #7. History of A. fib, status post successful cardioversion in July 2017 currently in sinus rhythm, on chronic anticoagulation with Eliquis #8. History of chronic kidney disease secondary to nephrosclerosis #9. Hypertension #10. Hyperlipidemia #11. Rheumatoid arthritis #12. History of nicotine dependence, currently in remission #13. Chronic anemia #14. Hyponatremia, proving. Plan: Patient denies any worsening shortness of breath, her oxygenation is stable on 2 L per nasal cannula, increase activity as tolerated. She will have hemodialysis treatment today. No bilateral lower extremity edema. We will reduce the dose of prednisone to 10 mg daily, continue with nebulized bronchodilators. I performed a history & physical examination of the patient and discussed their management with my nurse practitioner, Sasha Knutson. I reviewed the nurse practitioner's note and agree with the documented findings and plan of care. Lung sounds positive bibasilar crackles. The findings and the impression was discussed with the patient. I attest to the documentation by the nurse practitioner. Time with Patient: Less than 30
--- NOTE | 2018-01-31 12:29 | P.PN ---
Subjective 72-year-old female admitted for severe COPD exacerbation CHF exacerbation patient is on IV Lasix and the patient is urinating patient the was started on hemodialysis here patient is not undergoing hematemesis today patient is pale euvolemic at this Point of time. Is on anticoagulation with eliquis for atrial fibrillation. Patient is off oxygen at this point of time. Patient is fairly good air entry into bilateral lung caceres. Anti-coagulation dose is being increased because of renal dysfunction. 01/31/2018 Patient overall has good clinical improvement saturating well, chest X. Showed pulmonary edema on the chest x-ray which is bit worse but clinically patient shortness of breath significantly improved Constitutional: Denied any fatigue denied any fever. Cardio vascular: denied any chest pain, palpitations Gastrointestinal denied any nausea vomiting Pulmonary: As mentioned in HPI Neurologic denied any new focal deficits Objective - Vital Signs Vital signs: Vital Signs Temp 97.4 F L 01/31/18 04:00 Pulse 86 01/31/18 12:14 Resp 20 01/31/18 11:28 BP 154/75 01/31/18 08:00 Pulse Ox 100 01/31/18 08:00 Intake & Output 01/30/18 01/31/18 01/31/18 18:59 06:59 18:59 Intake Total 100 Output Total 685 Balance -585 Weight 65.5 kg Intake: IV 100 Sodium Ferric Gluconat- 100 Sucrose 125 mg In Sodium Chloride 0.9% 100 ml @ 100 mls/hr IVPB DAILY [facility] Rx#:[id number] Output: Urine 685 Straight 280 Other: # Voids 2 - Exam PHYSICAL EXAMINATION: GENERAL: The patient is alert and oriented x3, not in any acute distress. Well developed, well nourished. HEENT: Pupils are round and equally reacting to light. EOMI. No scleral icterus. No conjunctival pallor. Normocephalic, atraumatic. No pharyngeal erythema. No thyromegaly. CARDIOVASCULAR: S1 and S2 present. No murmurs, rubs, or gallops. PULMONARY: Crackles in the right posterior and upper lung caceres ABDOMEN: Soft, nontender, nondistended, normoactive bowel sounds. No palpable organomegaly. MUSCULOSKELETAL: No joint swelling or deformity. EXTREMITIES: No cyanosis, clubbing, or pedal edema. NEUROLOGICAL: Gross neurological examination did not reveal any focal deficits. SKIN: No rashes. - Labs CBC & Chem 7: 01/31/18 06:01 01/31/18 06:01 Labs: Abnormal Lab Results - Last 24 Hours (Table) 01/30/18 01/30/18 01/31/18 Range/Units 17:20 20:31 05:51 WBC (3.8-10.6) k/uL RBC (3.80-5.40) m/uL Hgb (11.4-16.0) gm/dL Hct (34.0-46.0) % RDW (11.5-15.5) % Neutrophils # (1.3-7.7) k/uL Lymphocytes # (1.0-4.8) k/uL Sodium (137-145) mmol/L Chloride (98-107) mmol/L BUN (7-17) mg/dL Creatinine (0.52-1.04) mg/dL POC Glucose (mg/dL) 161 H 160 H 112 H (75-99) mg/dL Phosphorus (2.5-4.5) mg/dL Total Protein (6.3-8.2) g/dL Albumin (3.5-5.0) g/dL 01/31/18 01/31/18 01/31/18 Range/Units 06:01 06:01 11:37 WBC 14.4 H (3.8-10.6) k/uL RBC 2.57 L (3.80-5.40) m/uL Hgb 7.5 L (11.4-16.0) gm/dL Hct 23.9 L (34.0-46.0) % RDW 16.3 H (11.5-15.5) % Neutrophils # 12.5 H (1.3-7.7) k/uL Lymphocytes # 0.6 L (1.0-4.8) k/uL Sodium 128 L (137-145) mmol/L Chloride 89 L (98-107) mmol/L BUN 78 H (7-17) mg/dL Creatinine 4.92 H (0.52-1.04) mg/dL POC Glucose (mg/dL) 151 H (75-99) mg/dL Phosphorus 4.8 H (2.5-4.5) mg/dL Total Protein 5.3 L (6.3-8.2) g/dL Albumin 2.8 L (3.5-5.0) g/dL Microbiology - Last 24 Hours (Table) 01/27/18 09:11 Blood Culture - Preliminary Blood No Growth after 96 hours Assessment and Plan Plan: Acute hypoxic respiratory failure secondary to his heart failure exacerbation and the patient is presently on hemodialysis and also receiving Lasix and patient is making urine and which will be continued and repeat basic metabolic profile tomorrow. Patient will not undergo hemodialysis today. -Lactic acidosis resolved now probably secondary to poor organ perfusion -Possible aspiration pneumonia for which patient was on Zosyn which was switched to Augmentin -Acute exacerbation of COPD -Right midlung pseudotumor -Atrial fibrillation rate controlled at this time and anti-correlation dose was decreased -Hypertension next and-hyperlipidemia -End-stage renal disease presently hemodialysis dependent -Hyperlipidemia -Rheumatoid arthritis -Anemia of chronic kidney disease -Hyponatremia expected to improve with hemodialysis appears to have hypervolemic hyponatremia patient also is presently euvolemic
[2018-01-31 16:52] LABS: Glucose,Whole Blood 115 mg/dL (75-99)
[2018-01-31 20:38] LABS: Glucose,Whole Blood 129 mg/dL (75-99)
[2018-01-31] MEDS: ZOLPIDEM 5 MG TAB PO PRN (22:25)
[2018-02-01 05:55] LABS: Glucose,Whole Blood 103 mg/dL (75-99)
[2018-02-01] MEDS: CALCIUM ACETATE 667 MG CAP PO SCH ×3 (06:32→17:06)
[2018-02-01 07:05] LABS: Anisocytosis Slight; HCT 24.2 % (34.0-46.0); HGB 7.6 gm/dL (11.4-16.0); MCH 29.7 pg (25.0-35.0); MCHC 31.4 g/dL (31.0-37.0); MCV 94.8 fL (80.0-100.0); Mean Platelet Volume 7.7; Platelet Count 295 k/uL (150-450); RBC 2.56 m/uL (3.80-5.40); RDW 16.5 % (11.5-15.5); WBC 20.2 k/uL (3.8-10.6)
[2018-02-01] MEDS: IPRATROPIUM-ALBUTEROL 3 ML NEB INHALATION SCH ×4 (08:06→20:53)
[2018-02-01] MEDS: FORMOTEROL FUMARATE 20 MCG/2 ML NEBU INHALATION SCH ×2 (08:06→20:53)
[2018-02-01] MEDS: BUDESONIDE 1 MG/2 ML NEBU INHALATION SCH ×2 (08:06→20:53)
--- NOTE | 2018-02-01 08:55 | P.PN ---
Subjective Patient is seen in follow-up for acute kidney injury. Renal function has been worsening over the last few days with creatinine up to 4.92 yesterday. Last hemodialysis was on January 28. Currently resting in bed. Oral intake is poor. Denies chest pain or shortness of breath. Patient states she has little urine output. It is documented as 685 mL on January 31 and 1 L from today. Vital signs are stable. General: The patient appeared well nourished and normally developed. HEENT: Head exam is unremarkable. Neck is without jugular venous distension. LUNGS: Lungs are clear to auscultation and percussion. Breath sounds decreased. HEART: Rate and Rhythm are regular. First and second heart sounds normal. No murmurs, rubs or gallops. ABDOMEN: Abdominal exam reveals normal bowel sounds. Non-tender and non- distended. No evidence of peritonitis. EXTREMITITES: No clubbing, cyanosis, or edema. Objective - Vital Signs Vital signs: Vital Signs Temp 97.2 F L 02/01/18 04:00 Pulse 72 02/01/18 08:32 Resp 20 02/01/18 04:00 BP 178/78 02/01/18 04:00 Pulse Ox 93 L 02/01/18 04:00 Intake & Output 01/31/18 02/01/18 02/01/18 18:59 06:59 18:59 Output Total 700 300 Balance -700 -300 Weight 66 kg Output: Urine 700 300 Other: Voiding Method Indwelling Catheter # Voids 2 1 - Labs CBC & Chem 7: 02/01/18 06:26 01/31/18 06:01 Labs: Abnormal Lab Results - Last 24 Hours (Table) 01/31/18 01/31/18 01/31/18 Range/Units 11:37 16:38 20:36 WBC (3.8-10.6) k/uL RBC (3.80-5.40) m/uL Hgb (11.4-16.0) gm/dL Hct (34.0-46.0) % RDW (11.5-15.5) % POC Glucose (mg/dL) 151 H 115 H 129 H (75-99) mg/dL 02/01/18 02/01/18 Range/Units 05:53 06:26 WBC 20.2 H (3.8-10.6) k/uL RBC 2.56 L (3.80-5.40) m/uL Hgb 7.6 L (11.4-16.0) gm/dL Hct 24.2 L (34.0-46.0) % RDW 16.5 H (11.5-15.5) % POC Glucose (mg/dL) 103 H (75-99) mg/dL Microbiology - Last 24 Hours (Table) 01/27/18 09:11 Blood Culture - Preliminary Blood No Growth after 96 hours Assessment and Plan Plan: Assessment: 1. Acute kidney injury secondary to ATN secondary to cardiorenal syndrome. Patient has undergone 2 hemodialysis treatments this admission. Last hemodialysis was on January 28. 2. Chronic kidney disease stage III with baseline creatinine in the range of 1.5-2 secondary to nephrosclerosis and cardiorenal syndrome. 3. Diastolic CHF. 4. Anemia of chronic kidney disease. Iron deficiency noted. 5. Chronic kidney disease mineral bone disease maintained on PhosLo and calcitriol. 6. Atrial fibrillation maintained on Dilacor as and Lopressor. 7. Hypertension with chronic kidney disease. 8. Hyponatremia secondary to acute kidney injury. Plan: Continue Lasix 60 mg IV twice daily. Continue with IV iron. Maintain Aranesp. Strict I's and O's. Follow-up morning labs. If no improvement in renal function, will resume hemodialysis.
[2018-02-01] MEDS: INSULIN ASPART 100 UNIT/ML 1 ML 10 ML VIAL SQ SCH ×4 (09:18→22:00)
[2018-02-01] MEDS: PANTOPRAZOLE 40 MG/10 ML VIAL IVP SCH (09:34)
[2018-02-01] MEDS: amLODIPine 10 MG TAB PO SCH ×2 (09:34→22:54)
[2018-02-01] MEDS: APIXABAN 2.5 MG TABLET PO SCH ×2 (09:34→22:54)
[2018-02-01] MEDS: AMOXIC-POT CLAV 875-125MG 1 EACH TAB PO SCH (09:34)
[2018-02-01] MEDS: ALLOPURINOL 100 MG TAB PO SCH (09:34)
[2018-02-01] MEDS: FUROSEMIDE 10 MG/ML 10 ML VIAL IV SCH ×2 (09:34→22:54)
[2018-02-01] MEDS: ATORVASTATIN 20 MG TAB PO SCH (09:34)
[2018-02-01] MEDS: CALCITRIOL 0.25 MCG CAP PO SCH (09:34)
[2018-02-01] MEDS: SERTRALINE 50 MG TAB PO SCH (09:34)
[2018-02-01] MEDS: predniSONE 10 MG TAB PO SCH (09:35)
[2018-02-01 10:13] LABS: Calcium 9.6 mg/dL (8.4-10.2)
--- NOTE | 2018-02-01 11:04 | P.PN ---
Subjective Progress Note Date: 02/01/18 Principal diagnosis: Acute exacerbation of diastolic congestive heart failure and underlying COPD This is a 72-year-old white female patient with past medical history of COPD, with FEV1 of 42%, chronic congestive heart failure with diastolic dysfunction, pseudotumor of the right lung, essential hypertension, rheumatoid arthritis, osteoarthritis, previous CVA/TIA, who presented to the emergency department today on 01/21/2018 at 4:00 in the morning with complaints of increasing shortness of breath. She states her shortness of breath has gradually become worse, over the past couple of days or so. She denies having any chest pain, no increase in wheezing, no phlegm production. Patient does have a congested cough. She denies any fever or chills, denies any swelling in bilateral extremities. Patient is on nebulizer treatments at home, in addition to her rescue inhaler. Patient has a history of atrial fibrillation, status post successful cardioversion in July 2017. She is on chronic anticoagulation with Eliquis. She remains in sinus rhythm on the monitor. EKG showed normal sinus rhythm with left ventricular hypertrophy with repolarization abnormality, and could not rule out septal infarct of undetermined age. Chest x-ray was completed, and showed airspace consolidation within the right lower lobe, small bilateral pleural effusions, increased interstitial markings and mild interstitial edema. There is a rounded well-circumscribed opacity within the right midlung likely representing fluid tracking within the right major fissure. After reviewing previous chest x-rays from 09/24/2017, and 09/09/2017 , the pseudotumor in the right midlung area seems to be more prominent during exacerbations of CHF. Labs did not show any leukocytosis, WBC is 8.3, hemoglobin is 8.5, INR is 1.3, d-dimer was negative for 0.49, sodium is 1:30, potassium is 3.8, chloride is 94, B1 is 34, creatinine is 1.5. Cardiac enzymes and troponins were negative 1, proBNP is significantly elevated at 12,200. Patient has positive distention of jugular veins bilaterally, no significant peripheral edema, congestive cough. In addition patient has been orthopneic. Patient was started on empiric antibiotics in the form of Zithromax and Rocephin , metolazone 2.5 mg on Thursday and Thursday. She received 1 dose of IV Lasix. We are asked to see the patient in consultation for shortness of breath. On 01/22/2018 patient seen in follow-up on medical surgical floor. States her breathing is improving, although patient does become short of breath with ambulation. No acute distress, pulse ox on 3 L per nasal Was 97%, patient is afebrile, patient has no occasional congestive cough, not able to bring up any sputum, lung sounds are positive for coarse crackles over right posterior lower lobe, diminished breath sounds over left base. Blood cultures remain negative, patient has been diuresed with IV Lasix, and Zaroxolyn, and today's chest x-ray shows interval resolution of the right lung ovoid lesion, the pseudotumor. There is improved right basilar infiltrate and/or atelectasis, improved but persistent small left pleural effusion. Patient still has digital JVD. Overall feeling and breathing better, antibiotics were discontinued per attending physician. On today's lab work the PVC is within normal limits at 8.4 , hemoglobin is 8.4, sodium is 131, chloride is 95, B1 is 43, creatinine is 1.85 , there has been the worsening of the renal profile, we will cut down the IV Lasix to 40 mg once daily. On 01/24/2018 patient seen in follow-up on medical surgical floor. Patient still sounds bronchospastic today, clinically patient states her breathing has improved. 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 Today's labs show sodium of 129, potassium is 4.7, chloride is 90, BUN is 72, and creatinine is 3.63, there has been worsening of the patient's renal profile, yesterday patient was given additional dose of IV Lasix, patient has been voiding, her net fluid balance is hard to estimate, however her weight continues to trend up, today is 63.8 kg, and her admission weight was 61.2 kg. No bilateral lower extremity edema, patient still has positive JVD bilaterally. She continues on IV Solu-Medrol, currently at 40 mg every 8 hours. We will add Pulmicort and Perforomist in addition to patient's DuoNeb. On the 2017 patient seen in follow-up on medical surgical floor. She denies any distress, denies any worsening shortness of breath, room air pulse ox is 96%, patient is afebrile, hemodynamically stable, respirations are even and nonlabored, lung sounds are clear, no rhonchi, no rales or wheezing noted. Lasix remains on hold, today's labs shows worsening of renal profile, BUN is 88 , creatinine is 4.28, nephrology has been consulted. No chest pain, no shortness of breath. She is tolerating oral intake. He is requesting to go home today. The patient is seen again today 01/26/2018 on the regular medical floor. She is awake and alert in no acute distress. She is currently sitting up in chair at the bedside. She denies any cough or congestion. He continues to maintain good O2 saturations in the upper 90s on room air. She's been afebrile. Hemodynamically stable. Chest x-ray is pending and she is currently on DuoNeb inhalations, Pulmicort and Perforomist inhalations. Sodium 123, potassium 5.4, creatinine increased to 5.08. Currently off diuretics. Nephrology on the case. On 01/27/2018 patient is been transferred to the intensive care early this morning, after rapid response team was called for concern of worsening shortness of breath. Stat chest x-ray was taken, and showed increasing pulmonary edema compared to yesterday's exam, consistent with congestive heart failure or ARDS. Patient is in moderately severe respiratory distress, tachypneic, anxious, and complaining of dyspnea, denies chest pain, lung sounds are positive for diffuse rhonchi throughout the lung caceres, patient was found to be hypoxic, with a pulse ox of 88%. Patient was placed on BiPAP support, currently at pressures of 12 6, and 50%. She was given a dose of IV Lasix 80 mg per nephrology, and has made very little urine, in order of 60 mL. Repeat dose of Lasix will be given, today's lab work reveals acute leukocytosis, WBC of 28.6, hemoglobin is 8.5, sodium is 125, potassium is 5.3, chloride is 91, CO2 is 19, B1 is 108, and creatinine is 6.49, there has been a steady decline of her renal function, and nephrology is planning on initiating hemodialysis. Plasma lactic acid was 0.5. He is currently in sinus rhythm, blood pressure is 184/77 with a mean of 112. Low-grade fevers this morning of 99.5F. Patient was transferred to the intensive care, where she is currently on BiPAP support. Vascular surgery has been consulted for emergent placement of temporary hemodialysis catheter. On 01/28/2018 patient seen in follow-up. Yesterday she had her initial hemodialysis treatment with removal of 2-1/2 L of fluid, today he is undergoing repeat hemodialysis treatment. She is breathing easier today, and did require BiPAP support last night, with pressures of 12/6, and 50%, currently on 4 L per nasal cannula with a pulse ox of 92%, patient is afebrile, respirations are even and nonlabored, lung sounds are positive for a few scattered wheezes, no significant rhonchi or rales. Today's chest x-ray shows cardiomegaly, multifocal areas of acute infiltrate in the right lung which has been stable over the last several days, and persistent small left pleural effusion with left basilar infiltrate and/or atelectasis. Patient's urine output has improved , and patient is producing 50-55 ML of urine hourly. Denies any shortness of breath or chest pain, denies any palpitations. She remains in sinus rhythm with a controlled rate. Today's lab work has been reviewed, shows WBC of 26.3, hemoglobin is 7.6, sodium is 131, potassium is 3.9, chloride is 94, BUN is 81, and creatinine is 4.74, there has been improvement in patient's renal profile. Blood and urine cultures remain negative thus far, patient was placed on empiric antibiotics in the form of Zosyn. On 01/31/2018 patient seen in follow-up on selective care unit. She is resting comfortably in bed, in no acute distress, patient is scheduled for on the hemodialysis treatment today, no worsening shortness of breath, currently on 2 L per nasal cannula, her pulse ox is 94%, lung sounds are positive for some bibasilar crackles, good air entry noted bilaterally, no wheezing, no rhonchi. Patient was able to sit up in the chair yesterday, tolerated activity fairly well, no lower extremity edema. Today's chest x-ray shows worsening changes of congestive heart failure, vascular congestion, borderline cardiomegaly. Patient 's Castillo catheter has been discontinued, and patient has been voiding. Labs have been reviewed, and obesity is 14.4, 7.5, sodium is 128, chloride is 89, creatinine is 78, and creatinine is 4.92. Nephrology is following, and is planning on another hemodialysis treatment. Reevaluated today on 02/01/2018, patient feels generally weak, but not short of breath, no chest pain, no fever, no chills, no hemoptysis. Chest x-ray was reviewed and discussed with the patient, it showed mostly changes of congestive heart failure, improved compared to previous x-rays, but she continues to have a right upper lobe confluent edema, but pneumonia is not entirely ruled out, felt to be less likely. This is based on the progression of all the x-rays since admission. Labs were reviewed WBC count is 20.2 hemoglobin is 7.6 BUN is 85 creatinine is 5.96. Considering the rapid progression of her worsening renal failure, patient will require more hemodialysis. Patient was seen by nephrology today, felt to have acute kidney injury secondary to cardiorenal syndrome, acute tubular necrosis, last hemodialysis was on January 16, hence I recommended continuing Lasix 60 mg IV push every 12 hours, and Aranesp. Will likely resume hemodialysis. Objective - Vital Signs Vital signs: Vital Signs Temp 96.5 F L 02/01/18 08:00 Pulse 72 02/01/18 08:32 Resp 16 02/01/18 08:00 BP 150/67 02/01/18 08:00 Pulse Ox 82 L 02/01/18 08:00 Intake & Output 01/31/18 02/01/18 02/01/18 18:59 06:59 18:59 Output Total 700 300 Balance -700 -300 Weight 66 kg Output: Urine 700 300 Other: Voiding Method Indwelling Catheter # Voids 2 1 # Bowel Movements 1 - Exam GENERAL EXAM: Alert, pleasant 72-year-old white female comfortable on nasal cannula, in no distress. HEAD: Normocephalic/atraumatic. EYES: Normal reaction of pupils, equal size. Conjunctiva pink, sclera white. NOSE: Clear with pink turbinates. THROAT: No erythema or exudates. NECK: No masses, no thyroid enlargement, no adenopathy. Positive JVD bilaterally CHEST: No chest wall deformity. Symmetrical expansion. LUNGS: Lung sounds are positive for a few bibasilar rales CVS: Regular rate and rhythm, normal S1 and S2, no gallops, no murmurs, no rubs ABDOMEN: Soft, nontender. No hepatosplenomegaly, normal bowel sounds, no guarding or rigidity. EXTREMITIES: No clubbing, no edema, no cyanosis, 2+ pulses and upper and lower extremities. MUSCULOSKELETAL: Muscle strength and tone normal. SPINE: No scoliosis or deformity SKIN: No rashes CENTRAL NERVOUS SYSTEM: Alert and oriented -3. No focal deficits, tone is normal in all 4 extremities. PSYCHIATRIC: Alert and oriented -3. Appropriate affect. Intact judgment and insight. - Labs CBC & Chem 7: 02/01/18 06:26 02/01/18 06:26 Labs: Abnormal Lab Results - Last 24 Hours (Table) 01/31/18 01/31/18 01/31/18 Range/Units 11:37 16:38 20:36 WBC (3.8-10.6) k/uL RBC (3.80-5.40) m/uL Hgb (11.4-16.0) gm/dL Hct (34.0-46.0) % RDW (11.5-15.5) % Sodium (137-145) mmol/L Chloride (98-107) mmol/L BUN (7-17) mg/dL Creatinine (0.52-1.04) mg/dL POC Glucose (mg/dL) 151 H 115 H 129 H (75-99) mg/dL 02/01/18 02/01/18 02/01/18 Range/Units 05:53 06:26 06:26 WBC 20.2 H (3.8-10.6) k/uL RBC 2.56 L (3.80-5.40) m/uL Hgb 7.6 L (11.4-16.0) gm/dL Hct 24.2 L (34.0-46.0) % RDW 16.5 H (11.5-15.5) % Sodium 129 L (137-145) mmol/L Chloride 91 L (98-107) mmol/L BUN 85 H (7-17) mg/dL Creatinine 5.96 H (0.52-1.04) mg/dL POC Glucose (mg/dL) 103 H (75-99) mg/dL Microbiology - Last 24 Hours (Table) 01/27/18 09:11 Blood Culture - Preliminary Blood No Growth after 96 hours Assessment and Plan Assessment: #1. Acute hypoxemic respiratory failure secondary to acute pulmonary edema, consistent with acute exacerbation of congestive heart failure with systolic dysfunction, fluid overload, improved, although patient was initiated on hemodialysis treatment, received 3 initial exchanges may have another one today or tomorrow. #2. Leukocytosis, possibly stress induced. Patient has a low-grade fever, and lactic acid is 0.5 #3. Acute kidney injury likely related to diuresis, hemodialysis has been initiated, patient had 3 treatments so far, and renal profile is improving #4. Acute exacerbation of chronic obstructive pulmonary disease. #5. History of severe COPD, with underlying FEV1 of 43% of predicted. #6. Right midlung pseudotumor with fluid in the major fissure seen on the chest x-ray, compared to previous studies, and appears to be more prominent during times of CHF exacerbation. Right basilar infiltrate, possibly related to atelectasis, cannot entirely rule out pneumonia #7. History of A. fib, status post successful cardioversion in July 2017 currently in sinus rhythm, on chronic anticoagulation with Eliquis #8. History of chronic kidney disease secondary to nephrosclerosis #9. Hypertension #10. Hyperlipidemia #11. Rheumatoid arthritis #12. History of nicotine dependence, currently in remission #13. Chronic anemia #14. Hyponatremia, proving. Recommendation: Continue present supportive care measures, patient may require more hemodialysis, continue diuretics, continue bronchodilators, not quite ready for any discharge planning. Remains quite ill, and not ready for discharge. We'll continue to follow. Time with Patient: Less than 30
--- NOTE | 2018-02-01 11:22 | P.PN ---
Subjective 72-year-old female admitted for severe COPD exacerbation CHF exacerbation patient is on IV Lasix and the patient is urinating patient the was started on hemodialysis here patient is not undergoing hematemesis today patient is pale euvolemic at this Point of time. Is on anticoagulation with eliquis for atrial fibrillation. Patient is off oxygen at this point of time. Patient is fairly good air entry into bilateral lung caceres. Anti-coagulation dose is being increased because of renal dysfunction. 01/31/2018 Patient overall has good clinical improvement saturating well, chest X. Showed pulmonary edema on the chest x-ray which is bit worse but clinically patient shortness of breath significantly improved 02/01/2018 Patient states she is bit tired kidney function is bit worse and will undergo hemodialysis today most probably. Patient the clinically looks okay but chest x -ray imaging yesterday did show worsening pulmonary edema. Constitutional: denied any fever. Cardio vascular: denied any chest pain, palpitations Gastrointestinal denied any nausea vomiting Pulmonary: As mentioned in HPI Neurologic denied any new focal deficits Objective - Vital Signs Vital signs: Vital Signs Temp 96.5 F L 02/01/18 08:00 Pulse 72 02/01/18 08:32 Resp 16 02/01/18 08:00 BP 150/67 02/01/18 08:00 Pulse Ox 82 L 02/01/18 08:00 Intake & Output 01/31/18 02/01/18 02/01/18 18:59 06:59 18:59 Output Total 700 300 Balance -700 -300 Weight 66 kg Output: Urine 700 300 Other: Voiding Method Indwelling Catheter Indwelling Catheter # Voids 2 1 # Bowel Movements 1 - Exam PHYSICAL EXAMINATION: GENERAL: The patient is alert and oriented x3, not in any acute distress. Well developed, well nourished. HEENT: Pupils are round and equally reacting to light. EOMI. No scleral icterus. No conjunctival pallor. Normocephalic, atraumatic. No pharyngeal erythema. No thyromegaly. CARDIOVASCULAR: S1 and S2 present. No murmurs, rubs, or gallops. PULMONARY: Crackles in the right posterior and upper lung caceres ABDOMEN: Soft, nontender, nondistended, normoactive bowel sounds. No palpable organomegaly. MUSCULOSKELETAL: No joint swelling or deformity. EXTREMITIES: No cyanosis, clubbing, or pedal edema. NEUROLOGICAL: Gross neurological examination did not reveal any focal deficits. SKIN: No rashes. - Labs CBC & Chem 7: 02/01/18 06:26 02/01/18 06:26 Labs: Abnormal Lab Results - Last 24 Hours (Table) 01/31/18 01/31/18 01/31/18 Range/Units 11:37 16:38 20:36 WBC (3.8-10.6) k/uL RBC (3.80-5.40) m/uL Hgb (11.4-16.0) gm/dL Hct (34.0-46.0) % RDW (11.5-15.5) % Sodium (137-145) mmol/L Chloride (98-107) mmol/L BUN (7-17) mg/dL Creatinine (0.52-1.04) mg/dL POC Glucose (mg/dL) 151 H 115 H 129 H (75-99) mg/dL 02/01/18 02/01/18 02/01/18 Range/Units 05:53 06:26 06:26 WBC 20.2 H (3.8-10.6) k/uL RBC 2.56 L (3.80-5.40) m/uL Hgb 7.6 L (11.4-16.0) gm/dL Hct 24.2 L (34.0-46.0) % RDW 16.5 H (11.5-15.5) % Sodium 129 L (137-145) mmol/L Chloride 91 L (98-107) mmol/L BUN 85 H (7-17) mg/dL Creatinine 5.96 H (0.52-1.04) mg/dL POC Glucose (mg/dL) 103 H (75-99) mg/dL Microbiology - Last 24 Hours (Table) 01/27/18 09:11 Blood Culture - Preliminary Blood No Growth after 96 hours Assessment and Plan Plan: Acute hypoxic respiratory failure secondary to his heart failure exacerbation and the patient is presently on hemodialysis and also receiving Lasix and patient is making urine and which will be continued and repeat basic metabolic profile tomorrow. Patient will not undergo hemodialysis today. -Lactic acidosis resolved now probably secondary to poor organ perfusion -Possible aspiration pneumonia for which patient was on Zosyn which was switched to Augmentin -Acute exacerbation of COPD -Right midlung pseudotumor -Atrial fibrillation rate controlled at this time and anti-correlation dose was decreased -Hypertension next and-hyperlipidemia -End-stage renal disease presently hemodialysis dependent, hemodialysis today most probably -Hyperlipidemia -Rheumatoid arthritis -Anemia of chronic kidney disease -Hyponatremia expected to improve with hemodialysis appears to have hypervolemic hyponatremia patient also is presently euvolemic
[2018-02-01 11:56] LABS: Glucose,Whole Blood 182 mg/dL (75-99)
[2018-02-01] MEDS: SODIUM FERRIC GLUCONAT-SUCROSE 125 MG in SODIUM CHLORIDE 0.9% 100 ML IVPB SCH (12:11)
[2018-02-01] MEDS: hydrALAZINE HCL 50 MG TAB PO SCH ×3 (16:14→22:55)
[2018-02-01] MEDS: METOPROLOL TARTRATE 50 MG TAB PO SCH ×2 (16:15→22:55)
[2018-02-01 16:33] LABS: Glucose,Whole Blood 206 mg/dL (75-99)
[2018-02-01 21:00] LABS: Glucose,Whole Blood 138 mg/dL (75-99)
[2018-02-01] MEDS: AMIODARONE 100 MG TAB PO SCH (22:53)
[2018-02-01] MEDS: ZOLPIDEM 5 MG TAB PO PRN (22:57)
[2018-02-02 06:16] LABS: Glucose,Whole Blood 102 mg/dL (75-99)
[2018-02-02] MEDS: CALCIUM ACETATE 667 MG CAP PO SCH ×3 (06:41→17:36)
[2018-02-02 06:57] LABS: Calcium 9.1 mg/dL (8.4-10.2); Potassium 3.7 mmol/L (3.5-5.1)
[2018-02-02] MEDS: FORMOTEROL FUMARATE 20 MCG/2 ML NEBU INHALATION SCH ×2 (07:53→19:30)
[2018-02-02] MEDS: BUDESONIDE 1 MG/2 ML NEBU INHALATION SCH ×2 (07:53→19:29)
[2018-02-02] MEDS: IPRATROPIUM-ALBUTEROL 3 ML NEB INHALATION SCH ×4 (07:53→19:31)
[2018-02-02] MEDS ORDERED: SODIUM CHLORIDE 0.9% 250 ML IV ONE (09:12)
[2018-02-02] MEDS ORDERED: fentaNYL (PF) 50 MCG/ML 2 ML AMP IV ONE (09:20)
[2018-02-02] MEDS ORDERED: LIDOCAINE 1% INJ 10MG/ML (20 ML MDV) SQ ONE ×2 (09:25→09:40)
[2018-02-02] MEDS: HEPARIN SODIUM 1,000 UN/ML (10ML VL) MISCELLANE ONE ×2 (10:00→10:01)
--- NOTE | 2018-02-02 10:22 | PCN ---
PROCEDURE NOTE PREOPERATIVE DIAGNOSIS: Acute chronic renal failure. PROCEDURE: 1. Ultrasound-guided 23 cm dialysis catheter right internal jugular approach. 2. Removal of the dialysis catheter right femoral approach and dissection time is 15 minutes. This patient brought to the lab asst. Right arm, right chest and neck was prepped and draped in a sterile manner. Right groin was prepped and draped in the usual manner with local and IV sedation. Ultrasound-guided micropuncture into the right jugular vein, micropuncture guide was passed and then 4-Martiniquais dilator on the top of the guidewire. Then we created a tunnel, through the tunnel we brought 23 cm dialysis catheter neck area. After that, a regular guidewire passed under fluoroscopy control, which was parked in the inferior superior going through the superior vena cava and parked at the inferior vena cava. After the dilator was advanced, the sheath was advanced on the top of the guidewire through the sheath we introduced the dialysis catheter. Tip of the catheter in superior vena cava and atrium. Sheath was removed. The catheter was flushed and secured with 3-0 Vicryl nylon and dressing applied. Patient tolerated the procedure well. Then right femoral catheter stitches were removed and the groin was prepped and catheter was removed. Pressure was held. The patient tolerated the procedure well. MMODL / IJN: [id number] /
--- NOTE | 2018-02-02 10:29 | IR ---
EXAMINATION TYPE: IR cvc insert central tunneled DATE OF EXAM: 02/02/2018 COMPARISON: NONE HISTORY: Line placement. Fluoroscopy was provided to the referring clinician. 0.3 minutes of fluoroscopy.
--- NOTE | 2018-02-02 10:47 | P.PN ---
Subjective 72-year-old female admitted for severe COPD exacerbation CHF exacerbation patient is on IV Lasix and the patient is urinating patient the was started on hemodialysis here patient is not undergoing hematemesis today patient is pale euvolemic at this Point of time. Is on anticoagulation with eliquis for atrial fibrillation. Patient is off oxygen at this point of time. Patient is fairly good air entry into bilateral lung caceres. Anti-coagulation dose is being increased because of renal dysfunction. 01/31/2018 Patient overall has good clinical improvement saturating well, chest X. Showed pulmonary edema on the chest x-ray which is bit worse but clinically patient shortness of breath significantly improved 02/01/2018 Patient states she is bit tired kidney function is bit worse and will undergo hemodialysis today most probably. Patient the clinically looks okay but chest x -ray imaging yesterday did show worsening pulmonary edema. 02/02/2018 Patient underwent hemodialysis yesterday patient will undergo permacath [place] probably can be discharged tomorrow no overnight events. Constitutional : denied any fever. Cardio vascular: denied any chest pain, palpitations Gastrointestinal denied any nausea vomiting Pulmonary: As mentioned in HPI Neurologic denied any new focal deficits Objective - Vital Signs Vital signs: Vital Signs Temp 98.1 F 02/02/18 04:00 Pulse 75 02/02/18 08:13 Resp 18 02/02/18 04:00 BP 166/91 02/02/18 04:00 Pulse Ox 97 02/02/18 07:53 Intake & Output 02/01/18 02/02/18 02/02/18 18:59 06:59 18:59 Intake Total 236 100 Output Total 300 Balance 236 -300 100 Weight 65.2 kg Intake: IV 100 Oral 236 Output: Urine 300 Other: Voiding Method Indwelling Catheter Indwelling Catheter # Voids 2 2 # Bowel Movements 1 - Exam PHYSICAL EXAMINATION: GENERAL: The patient is alert and oriented x3, not in any acute distress. Well developed, well nourished. HEENT: Pupils are round and equally reacting to light. EOMI. No scleral icterus. No conjunctival pallor. Normocephalic, atraumatic. No pharyngeal erythema. No thyromegaly. CARDIOVASCULAR: S1 and S2 present. No murmurs, rubs, or gallops. PULMONARY: Crackles in the right posterior and upper lung caceres ABDOMEN: Soft, nontender, nondistended, normoactive bowel sounds. No palpable organomegaly. MUSCULOSKELETAL: No joint swelling or deformity. EXTREMITIES: No cyanosis, clubbing, or pedal edema. NEUROLOGICAL: Gross neurological examination did not reveal any focal deficits. SKIN: No rashes. - Labs CBC & Chem 7: 02/01/18 06:26 02/02/18 05:52 Labs: Abnormal Lab Results - Last 24 Hours (Table) 02/01/18 02/01/18 02/01/18 Range/Units 11:30 16:31 20:56 Sodium (137-145) mmol/L Chloride (98-107) mmol/L BUN (7-17) mg/dL Creatinine (0.52-1.04) mg/dL POC Glucose (mg/dL) 182 H 206 H 138 H (75-99) mg/dL 02/02/18 02/02/18 Range/Units 05:52 06:09 Sodium 131 L (137-145) mmol/L Chloride 93 L (98-107) mmol/L BUN 45 H (7-17) mg/dL Creatinine 3.70 H (0.52-1.04) mg/dL POC Glucose (mg/dL) 102 H (75-99) mg/dL Microbiology - Last 24 Hours (Table) 01/27/18 09:11 Blood Culture - Preliminary Blood No Growth after 120 hours Assessment and Plan Plan: Acute hypoxic respiratory failure secondary to his heart failure exacerbation and the patient is presently on hemodialysis and also receiving Lasix and patient is making urine and which will be continued and repeat basic metabolic profile tomorrow. Patient had hemodialysis yesterday feeling much better today discharged tomorrow -Lactic acidosis resolved now probably secondary to poor organ perfusion, improved now -Possible aspiration pneumonia for which patient was on Zosyn which was switched to Augmentin -Acute exacerbation of COPD -Right midlung pseudotumor -Atrial fibrillation rate controlled at this time and anti-correlation dose was decreased -Hypertension next and-hyperlipidemia -End-stage renal disease presently hemodialysis dependent. -Hyperlipidemia -Rheumatoid arthritis -Anemia of chronic kidney disease -Hyponatremia expected to improve with hemodialysis appears to have hypervolemic hyponatremia patient also is presently euvolemic
--- NOTE | 2018-02-02 11:29 | XR ---
EXAMINATION TYPE: XR chest 1V DATE OF EXAM: 02/02/2018 COMPARISON: 01/31/2018 HISTORY: 72-year-old female shortness of breath, permacath placement TECHNIQUE: Single frontal view of the chest is obtained. FINDINGS: Right-sided double-lumen hemodialysis catheter has been placed with tips in the upper right atrium. H eart borderline to mildly enlarged. Patchy and confluent interstitial and airspace opacities show sli ght increase particularly in the left midlung. No significant pleural effusion on the frontal view. N o pneumothorax seen. IMPRESSION: 1. Right-sided double-lumen hemodialysis catheter with tips in the upper right atrium. 2. Continued right greater than left interstitial and confluent airspace disease, possible pulmonary edema. Slightly increased in the left upper lobe.
--- NOTE | 2018-02-02 11:33 | P.PN ---
Subjective Patient is seen in follow-up for acute kidney injury. Patient remains hemodialysis dependent. Last hemodialysis was on February 01. Currently resting in bed. Oral intake is fair. Denies chest pain or shortness of breath. Patient does admit to making urine. Documented as 1 L in the last 24 hours. Vital signs are stable. General: The patient appeared well nourished and normally developed. HEENT: Head exam is unremarkable. Neck is without jugular venous distension. LUNGS: Lungs are clear to auscultation and percussion. Breath sounds decreased. HEART: Rate and Rhythm are regular. First and second heart sounds normal. No murmurs, rubs or gallops. ABDOMEN: Abdominal exam reveals normal bowel sounds. Non-tender and non- distended. No evidence of peritonitis. EXTREMITITES: No clubbing, cyanosis, or edema. Objective - Vital Signs Vital signs: Vital Signs Temp 96.6 F L 02/02/18 11:15 Pulse 76 02/02/18 11:14 Resp 18 02/02/18 11:15 BP 164/72 02/02/18 11:15 Pulse Ox 94 L 02/02/18 11:15 Intake & Output 02/01/18 02/02/18 02/02/18 18:59 06:59 18:59 Intake Total 236 100 Output Total 300 Balance 236 -300 100 Weight 65.2 kg Intake: IV 100 Oral 236 Output: Urine 300 Other: Voiding Method Indwelling Catheter Indwelling Catheter Indwelling Catheter # Voids 2 2 1 # Bowel Movements 1 - Labs CBC & Chem 7: 02/01/18 06:26 02/02/18 05:52 Labs: Abnormal Lab Results - Last 24 Hours (Table) 02/01/18 02/01/18 02/01/18 Range/Units 11:30 16:31 20:56 Sodium (137-145) mmol/L Chloride (98-107) mmol/L BUN (7-17) mg/dL Creatinine (0.52-1.04) mg/dL POC Glucose (mg/dL) 182 H 206 H 138 H (75-99) mg/dL 02/02/18 02/02/18 Range/Units 05:52 06:09 Sodium 131 L (137-145) mmol/L Chloride 93 L (98-107) mmol/L BUN 45 H (7-17) mg/dL Creatinine 3.70 H (0.52-1.04) mg/dL POC Glucose (mg/dL) 102 H (75-99) mg/dL Microbiology - Last 24 Hours (Table) 01/27/18 09:11 Blood Culture - Preliminary Blood No Growth after 120 hours Assessment and Plan Plan: Assessment: 1. Acute kidney injury secondary to ATN secondary to cardiorenal syndrome. Currently hemodialysis dependent. Last hemodialysis yesterday. 2. Chronic kidney disease stage III with baseline creatinine in the range of 1.5-2 secondary to nephrosclerosis and cardiorenal syndrome. 3. Diastolic CHF. 4. Anemia of chronic kidney disease. Iron deficiency noted. 5. Chronic kidney disease mineral bone disease maintained on PhosLo and calcitriol. 6. Atrial fibrillation maintained on Eliquis as and Lopressor. 7. Hypertension with chronic kidney disease. Blood pressures on the higher side. 8. Hyponatremia secondary to acute kidney injury. Improved postdialysis. Plan: Hemodialysis tomorrow. I will change Lasix to 80 mg orally twice daily. Continue with IV iron. Maintain Aranesp. Strict I's and O's. Repeat phosphorus level in the morning. technical publications manager on board to help facilitate outpatient hemodialysis set up.
[2018-02-02 11:39] LABS: Glucose,Whole Blood 137 mg/dL (75-99)
--- NOTE | 2018-02-02 11:40 | P.PN ---
Subjective Progress Note Date: 02/02/18 Principal diagnosis: Acute exacerbation of chronic diastolic congestive heart failure as well as an acute exacerbation of chronic obstructive pulmonary disease This is a 72-year-old white female patient with past medical history of COPD, with FEV1 of 42%, chronic congestive heart failure with diastolic dysfunction, pseudotumor of the right lung, essential hypertension, rheumatoid arthritis, osteoarthritis, previous CVA/TIA, who presented to the emergency department today on 01/21/2018 at 4:00 in the morning with complaints of increasing shortness of breath. She states her shortness of breath has gradually become worse, over the past couple of days or so. She denies having any chest pain, no increase in wheezing, no phlegm production. Patient does have a congested cough. She denies any fever or chills, denies any swelling in bilateral extremities. Patient is on nebulizer treatments at home, in addition to her rescue inhaler. Patient has a history of atrial fibrillation, status post successful cardioversion in July 2017. She is on chronic anticoagulation with Eliquis. She remains in sinus rhythm on the monitor. EKG showed normal sinus rhythm with left ventricular hypertrophy with repolarization abnormality, and could not rule out septal infarct of undetermined age. Chest x-ray was completed, and showed airspace consolidation within the right lower lobe, small bilateral pleural effusions, increased interstitial markings and mild interstitial edema. There is a rounded well-circumscribed opacity within the right midlung likely representing fluid tracking within the right major fissure. After reviewing previous chest x-rays from 09/24/2017, and 09/09/2017 , the pseudotumor in the right midlung area seems to be more prominent during exacerbations of CHF. Labs did not show any leukocytosis, WBC is 8.3, hemoglobin is 8.5, INR is 1.3, d-dimer was negative for 0.49, sodium is 1:30, potassium is 3.8, chloride is 94, B1 is 34, creatinine is 1.5. Cardiac enzymes and troponins were negative 1, proBNP is significantly elevated at 12,200. Patient has positive distention of jugular veins bilaterally, no significant peripheral edema, congestive cough. In addition patient has been orthopneic. Patient was started on empiric antibiotics in the form of Zithromax and Rocephin , metolazone 2.5 mg on Thursday and Thursday. She received 1 dose of IV Lasix. We are asked to see the patient in consultation for shortness of breath. The patient is seen again today 02/02/2018 in follow-up on the selective care unit. She is currently awake and alert in no acute distress. He is maintaining O2 saturations in the 90s on 3.5 L/m per nasal cannula. She's currently afebrile. He is currently in a negative balance. She is down another kilogram today. Creatinine 3.70. Today's chest x-ray continues to show evidence of fluid volume overload with a right upper lung confluent opacity. A right internal jugular dialysis catheter was placed and her right femoral catheter was removed today. Blood cultures reveal no growth. She remains on Augmentin, bronchodilators. Anticoagulated with Eliquis. Objective - Vital Signs Vital signs: Vital Signs Temp 96.6 F L 02/02/18 11:15 Pulse 76 02/02/18 11:14 Resp 18 02/02/18 11:15 BP 164/72 02/02/18 11:15 Pulse Ox 94 L 02/02/18 11:15 Intake & Output 02/01/18 02/02/18 02/02/18 18:59 06:59 18:59 Intake Total 236 100 Output Total 300 Balance 236 -300 100 Weight 65.2 kg Intake: IV 100 Oral 236 Output: Urine 300 Other: Voiding Method Indwelling Catheter Indwelling Catheter Indwelling Catheter # Voids 2 2 1 # Bowel Movements 1 - Exam GENERAL EXAM: Alert, pleasant 72-year-old white female comfortable in no apparent distress. HEAD: Normocephalic/atraumatic. EYES: Normal reaction of pupils, equal size. Conjunctiva pink, sclera white. NOSE: Clear with pink turbinates. THROAT: No erythema or exudates. NECK: Right internal jugular catheter placed. No masses, no thyroid enlargement, no adenopathy. Positive JVD bilaterally CHEST: No chest wall deformity. Symmetrical expansion. LUNGS: Diminished breath sounds, coarse crackles over right posterior lower lobe , diminished breath sounds on the left side at the base CVS: Regular rate and rhythm, normal S1 and S2, no gallops, no murmurs, no rubs ABDOMEN: Soft, nontender. No hepatosplenomegaly, normal bowel sounds, no guarding or rigidity. EXTREMITIES: No clubbing, no edema, no cyanosis, 2+ pulses and upper and lower extremities. Right femoral catheter removed. MUSCULOSKELETAL: Muscle strength and tone normal. SPINE: No scoliosis or deformity SKIN: No rashes CENTRAL NERVOUS SYSTEM: Alert and oriented -3. No focal deficits, tone is normal in all 4 extremities. PSYCHIATRIC: Alert and oriented -3. Appropriate affect. Intact judgment and insight. - Labs CBC & Chem 7: 02/01/18 06:26 02/02/18 05:52 Labs: Abnormal Lab Results - Last 24 Hours (Table) 02/01/18 02/01/18 02/01/18 Range/Units 11:30 16:31 20:56 Sodium (137-145) mmol/L Chloride (98-107) mmol/L BUN (7-17) mg/dL Creatinine (0.52-1.04) mg/dL POC Glucose (mg/dL) 182 H 206 H 138 H (75-99) mg/dL 02/02/18 02/02/18 Range/Units 05:52 06:09 Sodium 131 L (137-145) mmol/L Chloride 93 L (98-107) mmol/L BUN 45 H (7-17) mg/dL Creatinine 3.70 H (0.52-1.04) mg/dL POC Glucose (mg/dL) 102 H (75-99) mg/dL Microbiology - Last 24 Hours (Table) 01/27/18 09:11 Blood Culture - Preliminary Blood No Growth after 120 hours Assessment and Plan Assessment: Assessment: #1. Progressive dyspnea, orthopnea related to acute exacerbation of congestive heart failure, with diastolic dysfunction #2. Acute exacerbation of chronic obstructive pulmonary disease. #3. History of severe COPD, with underlying FEV1 of 43% of predicted. #4. Right midlung pseudotumor with fluid in the major fissure seen on the chest x-ray, compared to previous studies, and appears to be more prominent during times of CHF exacerbation. Right basilar infiltrate, possibly related to atelectasis, cannot entirely rule out pneumonia #5. History of A. fib, status post successful cardioversion in July 2017 currently in sinus rhythm, on chronic anticoagulation with Eliquis #6. History of chronic kidney disease secondary to nephrosclerosis #7. Hypertension #8. Hyperlipidemia #9. Rheumatoid arthritis #10. History of nicotine dependence, currently in remission #11. Chronic anemia #12. Hyponatremia, serum sodium is 131 Plan: The patient was seen and evaluated by Dr. Parmar. Chest x-ray is pending. Labs reviewed.. Continue bronchodilators. We'll continue to follow and make further recommendations based on her clinical status. I, the cosigning physician, performed a history & physical examination of the patient. Lungs sounds with crackles in the bilateral bases more so on the left. Maintaining good O2 saturations in the 90s on 2 L/m per nasal. I discussed the assessment and plan of care with my nurse practitioner, Shakila Munson. I attest to the above note as dictated by her.
[2018-02-02] MEDS: amLODIPine 10 MG TAB PO SCH (12:32)
[2018-02-02] MEDS: AMOXIC-POT CLAV 500-125 MG 1 EACH TAB PO SCH (12:33)
[2018-02-02] MEDS: ALLOPURINOL 100 MG TAB PO SCH (12:34)
[2018-02-02] MEDS: hydrALAZINE HCL 50 MG TAB PO SCH ×3 (12:35→21:03)
[2018-02-02] MEDS: AMIODARONE 100 MG TAB PO SCH (12:35)
[2018-02-02] MEDS: APIXABAN 2.5 MG TABLET PO SCH ×2 (12:36→21:02)
[2018-02-02] MEDS: ATORVASTATIN 20 MG TAB PO SCH (12:36)
[2018-02-02] MEDS: INSULIN ASPART 100 UNIT/ML 1 ML 10 ML VIAL SQ SCH ×4 (12:37→21:06)
[2018-02-02] MEDS: CALCITRIOL 0.25 MCG CAP PO SCH (12:37)
[2018-02-02] MEDS: ACETAMINOPHEN TAB 500 MG TAB PO PRN ×2 (13:00→21:41)
[2018-02-02] MEDS: SERTRALINE 50 MG TAB PO SCH (15:54)
[2018-02-02] MEDS: PANTOPRAZOLE 40 MG/10 ML VIAL IVP SCH (15:54)
[2018-02-02] MEDS: predniSONE 10 MG TAB PO SCH (15:55)
[2018-02-02] MEDS: METOPROLOL TARTRATE 50 MG TAB PO SCH ×2 (15:55→21:02)
[2018-02-02] MEDS: SODIUM FERRIC GLUCONAT-SUCROSE 125 MG in SODIUM CHLORIDE 0.9% 100 ML IVPB SCH (15:55)
[2018-02-02 16:39] LABS: Glucose,Whole Blood 121 mg/dL (75-99)
[2018-02-02] MEDS: FUROSEMIDE 80 MG TAB PO SCH (17:37)
[2018-02-02] MEDS: FUROSEMIDE 10 MG/ML 10 ML VIAL IV SCH (19:28)
[2018-02-02 20:30] LABS: Glucose,Whole Blood 134 mg/dL (75-99)
[2018-02-02] MEDS: ZOLPIDEM 5 MG TAB PO PRN (23:01)
[2018-02-03 05:56] LABS: Glucose,Whole Blood 114 mg/dL (75-99)
[2018-02-03] MEDS: INSULIN ASPART 100 UNIT/ML 1 ML 10 ML VIAL SQ SCH ×4 (05:57→21:28)
[2018-02-03] MEDS: CALCIUM ACETATE 667 MG CAP PO SCH ×3 (06:29→17:37)
[2018-02-03] MEDS: BUDESONIDE 1 MG/2 ML NEBU INHALATION SCH ×2 (07:50→19:16)
[2018-02-03] MEDS: FORMOTEROL FUMARATE 20 MCG/2 ML NEBU INHALATION SCH ×2 (07:50→19:16)
[2018-02-03] MEDS: IPRATROPIUM-ALBUTEROL 3 ML NEB INHALATION SCH ×4 (07:50→19:16)
[2018-02-03 08:08] LABS: Calcium 9.4 mg/dL (8.4-10.2); Phosphorus 3.9 mg/dL (2.5-4.5); Potassium 3.7 mmol/L (3.5-5.1)
[2018-02-03] MEDS: APIXABAN 2.5 MG TABLET PO SCH ×2 (08:35→21:52)
[2018-02-03] MEDS: AMOXIC-POT CLAV 500-125 MG 1 EACH TAB PO SCH (08:35)
[2018-02-03] MEDS: ATORVASTATIN 20 MG TAB PO SCH (08:35)
[2018-02-03] MEDS: CALCITRIOL 0.25 MCG CAP PO SCH (08:35)
[2018-02-03] MEDS: AMIODARONE 100 MG TAB PO SCH (08:35)
[2018-02-03] MEDS: FUROSEMIDE 80 MG TAB PO SCH ×2 (08:35→18:32)
[2018-02-03] MEDS: ALLOPURINOL 100 MG TAB PO SCH (08:36)
[2018-02-03] MEDS: hydrALAZINE HCL 50 MG TAB PO SCH ×3 (08:36→21:52)
[2018-02-03] MEDS: predniSONE 10 MG TAB PO SCH (08:36)
[2018-02-03] MEDS: amLODIPine 10 MG TAB PO SCH (08:36)
[2018-02-03] MEDS: PANTOPRAZOLE 40 MG/10 ML VIAL IVP SCH (08:36)
[2018-02-03] MEDS: METOPROLOL TARTRATE 50 MG TAB PO SCH ×2 (08:36→21:51)
[2018-02-03] MEDS: SERTRALINE 50 MG TAB PO SCH (08:36)
--- NOTE | 2018-02-03 09:36 | P.PN ---
Subjective Patient is seen in follow-up for acute kidney injury. Patient remains hemodialysis dependent. Last hemodialysis was on February 01. Currently resting in bed. Oral intake is fair. Denies chest pain or shortness of breath. Patient is nonoliguric. Vital signs are stable. General: The patient appeared well nourished and normally developed. HEENT: Head exam is unremarkable. Neck is without jugular venous distension. LUNGS: Lungs are clear to auscultation and percussion. Breath sounds decreased. HEART: Rate and Rhythm are regular. First and second heart sounds normal. No murmurs, rubs or gallops. ABDOMEN: Abdominal exam reveals normal bowel sounds. Non-tender and non- distended. No evidence of peritonitis. EXTREMITITES: No clubbing, cyanosis, or edema. Objective - Vital Signs Vital signs: Vital Signs Temp 96.2 F L 02/03/18 08:00 Pulse 72 02/03/18 08:11 Resp 16 02/03/18 08:00 BP 171/62 02/03/18 08:00 Pulse Ox 96 02/03/18 08:00 Intake & Output 02/02/18 02/03/18 02/03/18 18:59 06:59 18:59 Intake Total 100 Balance 100 Weight 65.8 kg Intake: IV 100 Other: Voiding Method Indwelling Catheter # Voids 1 2 - Labs CBC & Chem 7: 02/01/18 06:26 02/03/18 07:29 Labs: Abnormal Lab Results - Last 24 Hours (Table) 02/02/18 02/02/18 02/02/18 Range/Units 11:14 16:25 20:29 Sodium (137-145) mmol/L Chloride (98-107) mmol/L BUN (7-17) mg/dL Creatinine (0.52-1.04) mg/dL POC Glucose (mg/dL) 137 H 121 H 134 H (75-99) mg/dL 02/03/18 02/03/18 Range/Units 05:55 07:29 Sodium 132 L (137-145) mmol/L Chloride 94 L (98-107) mmol/L BUN 50 H (7-17) mg/dL Creatinine 4.31 H (0.52-1.04) mg/dL POC Glucose (mg/dL) 114 H (75-99) mg/dL Microbiology - Last 24 Hours (Table) 01/27/18 09:11 Blood Culture - Final Blood No Growth after 144 hours Assessment and Plan Plan: Assessment: 1. Acute kidney injury secondary to ATN secondary to cardiorenal syndrome. Currently hemodialysis dependent, Thursday schedule. 2. Chronic kidney disease stage III with baseline creatinine in the range of 1.5-2 secondary to nephrosclerosis and cardiorenal syndrome. 3. Diastolic CHF. 4. Anemia of chronic kidney disease. Iron deficiency noted. Status post 3 doses of IV iron. 5. Chronic kidney disease mineral bone disease maintained on PhosLo and calcitriol. 6. Atrial fibrillation maintained on Eliquis as and Lopressor. 7. Hypertension with chronic kidney disease. Blood pressures on the higher side. 8. Hyponatremia secondary to acute kidney injury. Improved postdialysis. Plan: Hemodialysis today. Maintain Lasix 80 mg orally twice daily. Maintain Aranesp. Strict I's and O's. Phosphorus level at goal. design project manager on board to help facilitate outpatient hemodialysis set up.
[2018-02-03 10:15] LABS: Anisocytosis Slight; HCT 21.2 % (34.0-46.0); Hypochromasia Slight; MCH 29.9 pg (25.0-35.0); MCHC 31.4 g/dL (31.0-37.0); Mean Platelet Volume 7.5; Platelet Count 315 k/uL (150-450); RBC 2.23 m/uL (3.80-5.40); RDW 16.6 % (11.5-15.5); WBC 20.2 k/uL (3.8-10.6)
[2018-02-03 10:20] LABS: HGB 6.7 gm/dL (11.4-16.0)
--- NOTE | 2018-02-03 10:51 | P.PN ---
Subjective Progress Note Date: 02/03/18 Principal diagnosis: Acute exacerbation of chronic diastolic congestive heart failure as well as an acute exacerbation of chronic obstructive pulmonary disease This is a 72-year-old white female patient with past medical history of COPD, with FEV1 of 42%, chronic congestive heart failure with diastolic dysfunction, pseudotumor of the right lung, essential hypertension, rheumatoid arthritis, osteoarthritis, previous CVA/TIA, who presented to the emergency department today on 01/21/2018 at 4:00 in the morning with complaints of increasing shortness of breath. She states her shortness of breath has gradually become worse, over the past couple of days or so. She denies having any chest pain, no increase in wheezing, no phlegm production. Patient does have a congested cough. She denies any fever or chills, denies any swelling in bilateral extremities. Patient is on nebulizer treatments at home, in addition to her rescue inhaler. Patient has a history of atrial fibrillation, status post successful cardioversion in July 2017. She is on chronic anticoagulation with Eliquis. She remains in sinus rhythm on the monitor. EKG showed normal sinus rhythm with left ventricular hypertrophy with repolarization abnormality, and could not rule out septal infarct of undetermined age. Chest x-ray was completed, and showed airspace consolidation within the right lower lobe, small bilateral pleural effusions, increased interstitial markings and mild interstitial edema. There is a rounded well-circumscribed opacity within the right midlung likely representing fluid tracking within the right major fissure. After reviewing previous chest x-rays from 09/24/2017, and 09/09/2017 , the pseudotumor in the right midlung area seems to be more prominent during exacerbations of CHF. Labs did not show any leukocytosis, WBC is 8.3, hemoglobin is 8.5, INR is 1.3, d-dimer was negative for 0.49, sodium is 1:30, potassium is 3.8, chloride is 94, B1 is 34, creatinine is 1.5. Cardiac enzymes and troponins were negative 1, proBNP is significantly elevated at 12,200. Patient has positive distention of jugular veins bilaterally, no significant peripheral edema, congestive cough. In addition patient has been orthopneic. Patient was started on empiric antibiotics in the form of Zithromax and Rocephin , metolazone 2.5 mg on Thursday and Thursday. She received 1 dose of IV Lasix. We are asked to see the patient in consultation for shortness of breath. The patient is seen again today 02/02/2018 in follow-up on the selective care unit. She is currently awake and alert in no acute distress. He is maintaining O2 saturations in the 90s on 3.5 L/m per nasal cannula. She's currently afebrile. He is currently in a negative balance. She is down another kilogram today. Creatinine 3.70. Today's chest x-ray continues to show evidence of fluid volume overload with a right upper lung confluent opacity. A right internal jugular dialysis catheter was placed and her right femoral catheter was removed today. Blood cultures reveal no growth. She remains on Augmentin, bronchodilators. Anticoagulated with Eliquis. The patient is seen again today 02/03/2018 in follow-up on the selective care unit. She is awake and alert in no acute distress. She is breathing easier today as compared to yesterday. No pulmonary complaints. Maintaining O2 saturations in the 90s on room air. She's been afebrile. White count 20.2. Hemoglobin 6.7. Creatinine 4.31. The plan is to receive 1 unit of blood during dialysis today. She is receiving iron and Aranesp as well. Objective - Vital Signs Vital signs: Vital Signs Temp 96.2 F L 02/03/18 08:00 Pulse 72 02/03/18 08:11 Resp 16 02/03/18 08:00 BP 171/62 02/03/18 08:00 Pulse Ox 96 02/03/18 08:00 Intake & Output 02/02/18 02/03/18 02/03/18 18:59 06:59 18:59 Intake Total 100 Balance 100 Weight 65.8 kg Intake: IV 100 Other: Voiding Method Indwelling Catheter # Voids 1 2 - Exam GENERAL EXAM: Alert, pleasant 72-year-old white female comfortable in no apparent distress. Pale today. HEAD: Normocephalic/atraumatic. EYES: Normal reaction of pupils, equal size. Conjunctiva pink, sclera white. NOSE: Clear with pink turbinates. THROAT: No erythema or exudates. NECK: Right internal jugular catheter placed. No masses, no thyroid enlargement, no adenopathy. Positive JVD bilaterally CHEST: No chest wall deformity. Symmetrical expansion. LUNGS: Diminished breath sounds, coarse crackles over right posterior lower lobe , diminished breath sounds on the left side at the base CVS: Regular rate and rhythm, normal S1 and S2, no gallops, no murmurs, no rubs ABDOMEN: Soft, nontender. No hepatosplenomegaly, normal bowel sounds, no guarding or rigidity. EXTREMITIES: No clubbing, no edema, no cyanosis, 2+ pulses and upper and lower extremities. Right femoral catheter removed. MUSCULOSKELETAL: Muscle strength and tone normal. SPINE: No scoliosis or deformity SKIN: No rashes CENTRAL NERVOUS SYSTEM: Alert and oriented -3. No focal deficits, tone is normal in all 4 extremities. PSYCHIATRIC: Alert and oriented -3. Appropriate affect. Intact judgment and insight. - Labs CBC & Chem 7: 02/03/18 07:29 02/03/18 07:29 Labs: Abnormal Lab Results - Last 24 Hours (Table) 02/02/18 02/02/18 02/02/18 Range/Units 11:14 16:25 20:29 WBC (3.8-10.6) k/uL RBC (3.80-5.40) m/uL Hgb (11.4-16.0) gm/dL Hct (34.0-46.0) % RDW (11.5-15.5) % Sodium (137-145) mmol/L Chloride (98-107) mmol/L BUN (7-17) mg/dL Creatinine (0.52-1.04) mg/dL POC Glucose (mg/dL) 137 H 121 H 134 H (75-99) mg/dL 02/03/18 02/03/18 02/03/18 Range/Units 05:55 07:29 07:29 WBC 20.2 H (3.8-10.6) k/uL RBC 2.23 L (3.80-5.40) m/uL Hgb 6.7 L* (11.4-16.0) gm/dL Hct 21.2 L (34.0-46.0) % RDW 16.6 H (11.5-15.5) % Sodium 132 L (137-145) mmol/L Chloride 94 L (98-107) mmol/L BUN 50 H (7-17) mg/dL Creatinine 4.31 H (0.52-1.04) mg/dL POC Glucose (mg/dL) 114 H (75-99) mg/dL Microbiology - Last 24 Hours (Table) 01/27/18 09:11 Blood Culture - Final Blood No Growth after 144 hours Assessment and Plan Assessment: Assessment: #1. Progressive dyspnea, orthopnea related to acute exacerbation of congestive heart failure, with diastolic dysfunction #2. Acute exacerbation of chronic obstructive pulmonary disease. #3. History of severe COPD, with underlying FEV1 of 43% of predicted. #4. Right midlung pseudotumor with fluid in the major fissure seen on the chest x-ray, compared to previous studies, and appears to be more prominent during times of CHF exacerbation. Right basilar infiltrate, possibly related to atelectasis, cannot entirely rule out pneumonia #5. History of A. fib, status post successful cardioversion in July 2017 currently in sinus rhythm, on chronic anticoagulation with Eliquis #6. History of chronic kidney disease secondary to nephrosclerosis now hemodialysis dependent. Creatinine 4.31. #7. Hypertension #8. Hyperlipidemia #9. Rheumatoid arthritis #10. History of nicotine dependence, currently in remission #11. Chronic anemia with current hemoglobin 6.7. #12. Hyponatremia, serum sodium is 132 Plan: The patient was seen and evaluated by Dr. Talbot. She remains stable from the pulmonary standpoint. Nephrology is on the case and is planning for hemodialysis again today. A unit of blood will be given as well. We will continue to follow. I, the cosigning physician, performed a history & physical examination of the patient. Lungs sounds with crackles in the bilateral bases more so on the left. Maintaining good O2 saturations in the 90s on room air. I discussed the assessment and plan of care with my nurse practitioner, Shakila Munson. I attest to the above note as dictated by her.
[2018-02-03 11:36] LABS: Glucose,Whole Blood 104 mg/dL (75-99)
[2018-02-03 16:24] LABS: Glucose,Whole Blood 181 mg/dL (75-99)
--- NOTE | 2018-02-03 17:26 | P.PN ---
Subjective Progress Note Date: 02/03/18 Progress note being dictated for Dr. Ramirez. Interval history:72-year-old female admitted for severe COPD exacerbation CHF exacerbation patient is on IV Lasix and the patient is urinating patient the was started on hemodialysis here patient is not undergoing hematemesis today patient is pale euvolemic at this Point of time. Is on anticoagulation with eliquis for atrial fibrillation. Patient is off oxygen at this point of time. Patient is fairly good air entry into bilateral lung caceres. Anti-coagulation dose is being increased because of renal dysfunction. 01/31/2018 Patient overall has good clinical improvement saturating well, chest X. Showed pulmonary edema on the chest x-ray which is bit worse but clinically patient shortness of breath significantly improved 02/01/2018 Patient states she is bit tired kidney function is bit worse and will undergo hemodialysis today most probably. Patient the clinically looks okay but chest x -ray imaging yesterday did show worsening pulmonary edema. 02/02/2018 Patient underwent hemodialysis yesterday patient will undergo permacath [place] probably can be discharged tomorrow no overnight events. Constitutional : denied any fever. Cardio vascular: denied any chest pain, palpitations Gastrointestinal denied any nausea vomiting Pulmonary: As mentioned in HPI Neurologic denied any new focal deficits 02/03/2018 received hemodialysis yesterday, creatinine 4.31- HD scheduled again today. Remains oxygen dependent on 3 L nasal cannula in a patient who does not wear oxygen at home. Hemoglobin 6.7, no s/sx of bleeding, scheduled to receive 1 unit of packed RBCs with hemodialysis today. Hypertensive, hydralazine increased. Denies chest pain, palpitations. Objective - Vital Signs Vital signs: Vital Signs Temp 97.9 F 02/03/18 16:00 Pulse 75 02/03/18 16:00 Resp 16 02/03/18 16:00 BP 161/73 02/03/18 16:00 Pulse Ox 91 L 02/03/18 16:00 Intake & Output 02/02/18 02/03/18 02/03/18 18:59 06:59 18:59 Intake Total 100 310 Output Total 800 Balance 100 -490 Weight 65.8 kg Intake: IV 100 Blood Product 310 Rc As-1 Unit 310 [id number] Output: Urine 800 Other: Voiding Method Indwelling Catheter Indwelling Catheter # Voids 1 2 - Exam GENERAL: The patient is alert and oriented x3, no acute distress. HEENT: Pupils are round and equally reacting to light. EOMI. No scleral icterus. No conjunctival pallor. Normocephalic, atraumatic. No pharyngeal erythema. No thyromegaly. CARDIOVASCULAR: S1 and S2 present. No murmurs, rubs, or gallops. PULMONARY: Crackles in the right posterior and upper lung caceres ABDOMEN: Soft, nontender, nondistended, normoactive bowel sounds. No palpable organomegaly. MUSCULOSKELETAL: No joint swelling or deformity. EXTREMITIES: No cyanosis, clubbing, or pedal edema. NEUROLOGICAL: Gross neurological examination did not reveal any focal deficits. SKIN: No rashes. - Labs CBC & Chem 7: 02/03/18 07:29 02/03/18 07:29 Labs: Abnormal Lab Results - Last 24 Hours (Table) 02/02/18 02/03/18 02/03/18 Range/Units 20:29 05:55 07:29 WBC (3.8-10.6) k/uL RBC (3.80-5.40) m/uL Hgb (11.4-16.0) gm/dL Hct (34.0-46.0) % RDW (11.5-15.5) % Sodium 132 L (137-145) mmol/L Chloride 94 L (98-107) mmol/L BUN 50 H (7-17) mg/dL Creatinine 4.31 H (0.52-1.04) mg/dL POC Glucose (mg/dL) 134 H 114 H (75-99) mg/dL Crossmatch 02/03/18 02/03/18 02/03/18 Range/Units 07:29 11:00 11:17 WBC 20.2 H (3.8-10.6) k/uL RBC 2.23 L (3.80-5.40) m/uL Hgb 6.7 L* (11.4-16.0) gm/dL Hct 21.2 L (34.0-46.0) % RDW 16.6 H (11.5-15.5) % Sodium (137-145) mmol/L Chloride (98-107) mmol/L BUN (7-17) mg/dL Creatinine (0.52-1.04) mg/dL POC Glucose (mg/dL) 104 H (75-99) mg/dL Crossmatch See Detail 02/03/18 Range/Units 16:21 WBC (3.8-10.6) k/uL RBC (3.80-5.40) m/uL Hgb (11.4-16.0) gm/dL Hct (34.0-46.0) % RDW (11.5-15.5) % Sodium (137-145) mmol/L Chloride (98-107) mmol/L BUN (7-17) mg/dL Creatinine (0.52-1.04) mg/dL POC Glucose (mg/dL) 181 H (75-99) mg/dL Crossmatch Assessment and Plan Assessment: Acute hypoxic respiratory failure secondary to acute CHF exacerbation, diastolic dysfunction, acute COPD exacerbation -Lactic acidosis resolved now probably secondary to poor organ perfusion, improved now -Possible aspiration pneumonia for which patient was on Zosyn which was switched to Augmentin -Right midlung pseudotumor -History of Atrial fibrillation, currently sinus rhythm -Hypertension next and-hyperlipidemia -Acute on Chronic kidney disease, stage III , acute secondary to to ATN related to Cardiorenal syndrome, now on hemodialysis. -Hyperlipidemia -Rheumatoid arthritis -Anemia of chronic kidney disease -Hyponatremia expected to improve with hemodialysis appears to have hypervolemic hyponatremia Plan: Continue on current medication regime , Lasix, monitoring and symptomatic treatment. Hemodialysis scheduled for today. One unit of packed RBCs with hemodialysis. Close monitoring of renal function, hemoglobin and electrolytes with repeat labs ordered for a.m. Possible repeat hemodialysis tomorrow as per nephrology. Discharge planning in progress. The impression and plan of care has been dictated as directed. : I performed a history and examination of this patient, discussed the same with the dictator. I agree with the dictator's note ,documented as a scribe. Any additional findings or plans will be noted.
[2018-02-03] MEDS: ACETAMINOPHEN TAB 500 MG TAB PO PRN (18:38)
[2018-02-03 21:05] LABS: Glucose,Whole Blood 102 mg/dL (75-99)
[2018-02-03] MEDS: ZOLPIDEM 5 MG TAB PO PRN (23:35)
[2018-02-04] MEDS: INSULIN ASPART 100 UNIT/ML 1 ML 10 ML VIAL SQ SCH ×4 (06:04→21:14)
[2018-02-04 06:05] LABS: Glucose,Whole Blood 93 mg/dL (75-99)
[2018-02-04] MEDS ORDERED: FUROSEMIDE 10 MG/ML 10 ML VIAL IV STA (06:07)
[2018-02-04] MEDS: CALCIUM ACETATE 667 MG CAP PO SCH ×3 (06:43→19:09)
[2018-02-04] MEDS: BUDESONIDE 1 MG/2 ML NEBU INHALATION SCH ×2 (06:52→19:34)
[2018-02-04] MEDS: FORMOTEROL FUMARATE 20 MCG/2 ML NEBU INHALATION SCH ×2 (06:52→19:34)
[2018-02-04] MEDS: IPRATROPIUM-ALBUTEROL 3 ML NEB INHALATION SCH ×4 (06:52→19:34)
--- NOTE | 2018-02-04 06:55 | XR ---
EXAMINATION TYPE: XR chest 1V portable DATE OF EXAM: 02/04/2018 CLINICAL HISTORY: Difficulty breathing progress study. TECHNIQUE: Single AP portable upright view of the chest is obtained. COMPARISON: Chest x-ray from 2 days earlier and older studies FINDINGS: There is stable right internal jugular large bore catheter. Persistent cardiomegaly with n ew small to moderate-sized left pleural effusion. Reticular increased opacities bilaterally with more focal bilateral suprahilar opacities and/or consolidation remains present. Increased opacity right l terry base is noted no pneumothorax is seen bilaterally. Osseous structures remain demineralized. IMPRESSION: There is new small to moderate-sized left pleural effusion from most recent chest x-ray. There is persistent interstitial edema and/or infiltrates bilaterally with focal suprahilar consolida tion and/or edema, right greater than left redemonstrated with mild cardiomegaly all redemonstrated. Developing right basilar alveolar edema and/or infiltrates is felt present from most recent chest x-r ay.
[2018-02-04 07:43] LABS: Anisocytosis Slight; Basophils % (A) 0 %; Eosinophils # (A) 0.2 k/uL (0-0.7); Eosinophils % (A) 1 %; HCT 22.7 % (34.0-46.0); HGB 7.2 gm/dL (11.4-16.0); Hypochromasia Slight; Lymphocytes # (A) 0.7 k/uL (1.0-4.8); Lymphocytes % (A) 4 %; MCH 29.3 pg (25.0-35.0); MCHC 31.9 g/dL (31.0-37.0); MCV 91.9 fL (80.0-100.0); Mean Platelet Volume 8.4; Monocytes # (A) 0.8 k/uL (0-1.0); Monocytes % (A) 5 %; Neutrophils # (A) 15.1 k/uL (1.3-7.7); Neutrophils % (A) 89 %; Platelet Count 285 k/uL (150-450); Poikilocytosis Slight; RBC 2.47 m/uL (3.80-5.40); RDW 17.3 % (11.5-15.5); WBC 17.1 k/uL (3.8-10.6)
[2018-02-04] MEDS: AMOXIC-POT CLAV 500-125 MG 1 EACH TAB PO SCH (08:36)
[2018-02-04] MEDS: ATORVASTATIN 20 MG TAB PO SCH (08:36)
[2018-02-04] MEDS: SERTRALINE 50 MG TAB PO SCH (08:36)
[2018-02-04] MEDS: AMIODARONE 100 MG TAB PO SCH (08:36)
[2018-02-04] MEDS: ALLOPURINOL 100 MG TAB PO SCH (08:36)
[2018-02-04] MEDS: APIXABAN 2.5 MG TABLET PO SCH ×2 (08:36→20:18)
[2018-02-04] MEDS: PANTOPRAZOLE 40 MG/10 ML VIAL IVP SCH (08:36)
[2018-02-04] MEDS: CALCITRIOL 0.25 MCG CAP PO SCH (08:36)
[2018-02-04] MEDS: predniSONE 10 MG TAB PO SCH (08:36)
[2018-02-04] MEDS: hydrALAZINE HCL 50 MG TAB PO SCH ×3 (08:36→20:18)
[2018-02-04] MEDS: amLODIPine 10 MG TAB PO SCH (08:36)
[2018-02-04] MEDS: METOPROLOL TARTRATE 50 MG TAB PO SCH ×2 (08:36→20:18)
[2018-02-04] MEDS: FUROSEMIDE 80 MG TAB PO SCH ×2 (08:37→19:10)
--- NOTE | 2018-02-04 09:42 | P.PN ---
Subjective Patient is seen in follow-up for acute kidney injury. Patient remains hemodialysis dependent. Last hemodialysis was on February 03. Currently resting in bed. Oral intake is fair. This morning patient became quite dyspneic and is requiring more oxygen supplementation. Chest x-ray suggestive of fluid overload. Vital signs are stable. General: The patient appeared well nourished and normally developed. HEENT: Head exam is unremarkable. Neck is without jugular venous distension. LUNGS: Breath sounds decreased. HEART: Rate and Rhythm are regular. First and second heart sounds normal. No murmurs, rubs or gallops. ABDOMEN: Abdominal exam reveals normal bowel sounds. Non-tender and non- distended. No evidence of peritonitis. EXTREMITITES: No clubbing, cyanosis, or edema. Objective - Vital Signs Vital signs: Vital Signs Temp 97.6 F 02/03/18 23:37 Pulse 88 02/04/18 07:13 Resp 18 02/04/18 03:48 BP 170/81 02/04/18 06:40 Pulse Ox 90 L 02/04/18 03:48 Intake & Output 02/03/18 02/04/18 02/04/18 18:59 06:59 18:59 Intake Total 310 0 Output Total 800 Balance -490 0 Weight 64.5 kg Intake: Oral 0 Blood Product 310 Rc As-1 Unit 310 [id number] Output: Urine 800 Other: Voiding Method Indwelling Catheter Indwelling Catheter # Voids 1 1 # Bowel Movements 1 - Labs CBC & Chem 7: 02/04/18 07:28 02/03/18 07:29 Labs: Abnormal Lab Results - Last 24 Hours (Table) 02/03/18 02/03/18 02/03/18 Range/Units 07:29 11:00 11:17 WBC 20.2 H (3.8-10.6) k/uL RBC 2.23 L (3.80-5.40) m/uL Hgb 6.7 L* (11.4-16.0) gm/dL Hct 21.2 L (34.0-46.0) % RDW 16.6 H (11.5-15.5) % Neutrophils # (1.3-7.7) k/uL Lymphocytes # (1.0-4.8) k/uL POC Glucose (mg/dL) 104 H (75-99) mg/dL Crossmatch See Detail 02/03/18 02/03/18 02/04/18 Range/Units 16:21 21:03 07:28 WBC 17.1 H (3.8-10.6) k/uL RBC 2.47 L (3.80-5.40) m/uL Hgb 7.2 L (11.4-16.0) gm/dL Hct 22.7 L (34.0-46.0) % RDW 17.3 H (11.5-15.5) % Neutrophils # 15.1 H (1.3-7.7) k/uL Lymphocytes # 0.7 L (1.0-4.8) k/uL POC Glucose (mg/dL) 181 H 102 H (75-99) mg/dL Crossmatch Assessment and Plan Plan: Assessment: 1. Acute kidney injury secondary to ATN secondary to cardiorenal syndrome. Currently hemodialysis dependent, Thursday schedule. 2. Chronic kidney disease stage III with baseline creatinine in the range of 1.5-2 secondary to nephrosclerosis and cardiorenal syndrome. 3. Diastolic CHF. 4. Anemia of chronic kidney disease. Iron deficiency noted. Status post 3 doses of IV iron. Maintained on Aranesp. Status post blood transfusion on February 03. 5. Chronic kidney disease mineral bone disease maintained on PhosLo and calcitriol. 6. Atrial fibrillation maintained on Eliquis as and Lopressor. 7. Hypertension with chronic kidney disease. Blood pressures on the higher side. 8. Hyponatremia secondary to acute kidney injury. Improved postdialysis. Plan: Hemodialysis treatment today with goal 3 L ultrafiltration. Another treatment tomorrow. Maintain Lasix 80 mg orally twice daily. Phosphorus level at goal. ct manager on board to help facilitate outpatient hemodialysis set up.
[2018-02-04 12:00] LABS: Glucose,Whole Blood 112 mg/dL (75-99)
--- NOTE | 2018-02-04 12:30 | P.PN ---
Subjective Progress Note Date: 02/04/18 Principal diagnosis: Acute exacerbation of chronic diastolic congestive heart failure as well as an acute exacerbation of chronic obstructive pulmonary disease This is a 72-year-old white female patient with past medical history of COPD, with FEV1 of 42%, chronic congestive heart failure with diastolic dysfunction, pseudotumor of the right lung, essential hypertension, rheumatoid arthritis, osteoarthritis, previous CVA/TIA, who presented to the emergency department today on 01/21/2018 at 4:00 in the morning with complaints of increasing shortness of breath. She states her shortness of breath has gradually become worse, over the past couple of days or so. She denies having any chest pain, no increase in wheezing, no phlegm production. Patient does have a congested cough. She denies any fever or chills, denies any swelling in bilateral extremities. Patient is on nebulizer treatments at home, in addition to her rescue inhaler. Patient has a history of atrial fibrillation, status post successful cardioversion in July 2017. She is on chronic anticoagulation with Eliquis. She remains in sinus rhythm on the monitor. EKG showed normal sinus rhythm with left ventricular hypertrophy with repolarization abnormality, and could not rule out septal infarct of undetermined age. Chest x-ray was completed, and showed airspace consolidation within the right lower lobe, small bilateral pleural effusions, increased interstitial markings and mild interstitial edema. There is a rounded well-circumscribed opacity within the right midlung likely representing fluid tracking within the right major fissure. After reviewing previous chest x-rays from 09/24/2017, and 09/09/2017 , the pseudotumor in the right midlung area seems to be more prominent during exacerbations of CHF. Labs did not show any leukocytosis, WBC is 8.3, hemoglobin is 8.5, INR is 1.3, d-dimer was negative for 0.49, sodium is 1:30, potassium is 3.8, chloride is 94, B1 is 34, creatinine is 1.5. Cardiac enzymes and troponins were negative 1, proBNP is significantly elevated at 12,200. Patient has positive distention of jugular veins bilaterally, no significant peripheral edema, congestive cough. In addition patient has been orthopneic. Patient was started on empiric antibiotics in the form of Zithromax and Rocephin , metolazone 2.5 mg on Thursday and Thursday. She received 1 dose of IV Lasix. We are asked to see the patient in consultation for shortness of breath. The patient is seen again today 02/02/2018 in follow-up on the selective care unit. She is currently awake and alert in no acute distress. He is maintaining O2 saturations in the 90s on 3.5 L/m per nasal cannula. She's currently afebrile. He is currently in a negative balance. She is down another kilogram today. Creatinine 3.70. Today's chest x-ray continues to show evidence of fluid volume overload with a right upper lung confluent opacity. A right internal jugular dialysis catheter was placed and her right femoral catheter was removed today. Blood cultures reveal no growth. She remains on Augmentin, bronchodilators. Anticoagulated with Eliquis. The patient is seen again today 02/03/2018 in follow-up on the selective care unit. She is awake and alert in no acute distress. She is breathing easier today as compared to yesterday. No pulmonary complaints. Maintaining O2 saturations in the 90s on room air. She's been afebrile. White count 20.2. Hemoglobin 6.7. Creatinine 4.31. The plan is to receive 1 unit of blood during dialysis today. She is receiving iron and Aranesp as well. Patient is seen again today 02/04/2018 in follow-up on the selective care unit. She is currently awake and alert in no acute distress. She is somewhat more dyspneic today as compared to yesterday. She is now requiring 4 L/m per nasal cannula to maintain O2 saturations in the 90s. Her chest x-ray does show a new small to moderate size left pleural effusion with persistent interstitial edema and or infiltrates bilaterally with focal suprahilar consolidation and/or edema right greater than left demonstrated. There is mild cardiomegaly. The plan is for ultrafiltration again today with a goal of 3 L. Most likely receive hemodialysis again tomorrow. Continued on oral Lasix. White count 17.1. Hemoglobin 7.2. The cultures reveal no growth. Objective - Vital Signs Vital signs: Vital Signs Temp 97.6 F 02/03/18 23:37 Pulse 78 02/04/18 11:08 Resp 18 02/04/18 03:48 BP 170/81 02/04/18 06:40 Pulse Ox 90 L 02/04/18 03:48 Intake & Output 02/03/18 02/04/18 02/04/18 18:59 06:59 18:59 Intake Total 310 0 Output Total 800 Balance -490 0 Weight 64.5 kg Intake: Oral 0 Blood Product 310 Rc As-1 Unit 310 [id number] Output: Urine 800 Other: Voiding Method Indwelling Catheter Indwelling Catheter # Voids 1 1 # Bowel Movements 1 - Exam GENERAL EXAM: Alert, pleasant 72-year-old white female comfortable in no apparent distress. Slightly more short of breath today. HEAD: Normocephalic/atraumatic. EYES: Normal reaction of pupils, equal size. Conjunctiva pink, sclera white. NOSE: Clear with pink turbinates. THROAT: No erythema or exudates. NECK: Right internal jugular catheter placed. No masses, no thyroid enlargement, no adenopathy. Positive JVD bilaterally CHEST: No chest wall deformity. Symmetrical expansion. LUNGS: Diminished breath sounds, coarse crackles over right posterior lower lobe , diminished breath sounds on the left side at the base CVS: Regular rate and rhythm, normal S1 and S2, no gallops, no murmurs, no rubs ABDOMEN: Soft, nontender. No hepatosplenomegaly, normal bowel sounds, no guarding or rigidity. EXTREMITIES: No clubbing, no edema, no cyanosis, 2+ pulses and upper and lower extremities. Right femoral catheter removed. MUSCULOSKELETAL: Muscle strength and tone normal. SPINE: No scoliosis or deformity SKIN: No rashes CENTRAL NERVOUS SYSTEM: Alert and oriented -3. No focal deficits, tone is normal in all 4 extremities. PSYCHIATRIC: Alert and oriented -3. Appropriate affect. Intact judgment and insight. - Labs CBC & Chem 7: 02/04/18 07:28 02/03/18 07:29 Labs: Abnormal Lab Results - Last 24 Hours (Table) 02/03/18 02/03/18 02/03/18 Range/Units 11:00 16:21 21:03 WBC (3.8-10.6) k/uL RBC (3.80-5.40) m/uL Hgb (11.4-16.0) gm/dL Hct (34.0-46.0) % RDW (11.5-15.5) % Neutrophils # (1.3-7.7) k/uL Lymphocytes # (1.0-4.8) k/uL POC Glucose (mg/dL) 181 H 102 H (75-99) mg/dL Crossmatch See Detail 02/04/18 02/04/18 Range/Units 07:28 11:58 WBC 17.1 H (3.8-10.6) k/uL RBC 2.47 L (3.80-5.40) m/uL Hgb 7.2 L (11.4-16.0) gm/dL Hct 22.7 L (34.0-46.0) % RDW 17.3 H (11.5-15.5) % Neutrophils # 15.1 H (1.3-7.7) k/uL Lymphocytes # 0.7 L (1.0-4.8) k/uL POC Glucose (mg/dL) 112 H (75-99) mg/dL Crossmatch Assessment and Plan Assessment: Assessment: #1. Progressive dyspnea, orthopnea related to acute exacerbation of congestive heart failure, with diastolic dysfunction and bilateral pleural effusions #2. Acute exacerbation of chronic obstructive pulmonary disease. #3. History of severe COPD, with underlying FEV1 of 43% of predicted. #4. Right midlung pseudotumor with fluid in the major fissure seen on the chest x-ray, compared to previous studies, and appears to be more prominent during times of CHF exacerbation. #5. History of A. fib, status post successful cardioversion in July 2017 currently in sinus rhythm, on chronic anticoagulation with Eliquis #6. History of chronic kidney disease secondary to nephrosclerosis now hemodialysis dependent. Creatinine 4.31. #7. Hypertension #8. Hyperlipidemia #9. Rheumatoid arthritis #10. History of nicotine dependence, currently in remission #11. Chronic anemia with current hemoglobin 7.2 status post 1 unit of transfused packed red blood cells. #12. Hyponatremia, serum sodium is 132 Plan: The patient was seen and evaluated by Dr. Talbot. She is slightly more dyspneic today as compared to yesterday. Chest x-ray does show increased pleural effusion on the left. The plan is for repeat hemodialysis today and again tomorrow with a goal of 3 L of ultrafiltration. We'll repeat a chest x- ray done. We will continue to follow. I, the cosigning physician, performed a history & physical examination of the patient. Lungs sounds with crackles in the bilateral bases more so on the left. Maintaining good O2 saturations in the 90s on 4 L/m per nasal cannula. I discussed the assessment and plan of care with my nurse practitioner, Shakila Munson. I attest to the above note as dictated by her.
[2018-02-04 14:39] VITALS: BMI 23.6
[2018-02-04 16:38] LABS: Glucose,Whole Blood 132 mg/dL (75-99)
--- NOTE | 2018-02-04 17:33 | P.PN ---
Subjective Progress Note Date: 02/04/18 Progress note being dictated for Dr. Ramirez. Interval history:72-year-old female admitted for severe COPD exacerbation CHF exacerbation patient is on IV Lasix and the patient is urinating patient the was started on hemodialysis here patient is not undergoing hematemesis today patient is pale euvolemic at this Point of time. Is on anticoagulation with eliquis for atrial fibrillation. Patient is off oxygen at this point of time. Patient is fairly good air entry into bilateral lung caceres. Anti-coagulation dose is being increased because of renal dysfunction. 01/31/2018 Patient overall has good clinical improvement saturating well, chest X. Showed pulmonary edema on the chest x-ray which is bit worse but clinically patient shortness of breath significantly improved 02/01/2018 Patient states she is bit tired kidney function is bit worse and will undergo hemodialysis today most probably. Patient the clinically looks okay but chest x -ray imaging yesterday did show worsening pulmonary edema. 02/02/2018 Patient underwent hemodialysis yesterday patient will undergo permacath [facility] probably can be discharged tomorrow no overnight events. Constitutional : denied any fever. Cardio vascular: denied any chest pain, palpitations Gastrointestinal denied any nausea vomiting Pulmonary: As mentioned in HPI Neurologic denied any new focal deficits 02/03/2018 received hemodialysis yesterday, creatinine 4.31- HD scheduled again today. Remains oxygen dependent on 3 L nasal cannula in a patient who does not wear oxygen at home. Hemoglobin 6.7, no s/sx of bleeding, scheduled to receive 1 unit of packed RBCs with hemodialysis today. Hypertensive, hydralazine increased. Denies chest pain, palpitations. 02/04/2018 respiratory status worsened, increased shortness of breath, increased oxygen requirements- now requiring 4 L nasal cannula O2. Scheduled for hemodialysis again today. Hemoglobin currently 7.2. Chest x-ray reporting moderate left pleural effusion, persistent interstitial edema, developing right basilar alveolar edema/infiltrates. Afebrile. WBC 17.1. Cultures reporting no growth. Objective - Vital Signs Vital signs: Vital Signs Temp 97.6 F 02/03/18 23:37 Pulse 84 02/04/18 15:46 Resp 20 02/04/18 08:00 BP 164/80 02/04/18 08:00 Pulse Ox 93 L 02/04/18 08:00 Intake & Output 02/03/18 02/04/1802/04/18 18:59 06:59 18:59 Intake Total 310 240 Output Total 800 Balance -490 240 Weight 64.5 kg 64.5 kg Intake: Oral 240 Blood Product 310 Rc As-1 Unit 310 [id number] Output: Urine 800 Other: Voiding Method Indwelling Catheter Indwelling Catheter # Voids 1 1 # Bowel Movements 1 - Exam GENERAL: The patient is alert and oriented x3, respiratory effort increased HEENT: Pupils are round and equally reacting to light. EOMI. No scleral icterus. No conjunctival pallor. Normocephalic, atraumatic. CARDIOVASCULAR: S1 and S2 present. No murmurs, rubs, or gallops. PULMONARY: Bilateral bases diminished-greater on the left, Crackles in the right posterior and upper lung caceres ABDOMEN: Soft, nontender, nondistended, normoactive bowel sounds. No palpable organomegaly. MUSCULOSKELETAL: No joint swelling or deformity. EXTREMITIES: No cyanosis, clubbing, or pedal edema. NEUROLOGICAL: Gross neurological examination did not reveal any focal deficits. SKIN: No rashes. - Labs CBC & Chem 7: 02/04/18 07:28 02/03/18 07:29 Labs: Abnormal Lab Results - Last 24 Hours (Table) 02/03/18 02/04/18 02/04/18 Range/Units 21:03 07:28 11:58 WBC 17.1 H (3.8-10.6) k/uL RBC 2.47 L (3.80-5.40) m/uL Hgb 7.2 L (11.4-16.0) gm/dL Hct 22.7 L (34.0-46.0) % RDW 17.3 H (11.5-15.5) % Neutrophils # 15.1 H (1.3-7.7) k/uL Lymphocytes # 0.7 L (1.0-4.8) k/uL POC Glucose (mg/dL) 102 H 112 H (75-99) mg/dL 02/04/18 Range/Units 16:36 WBC (3.8-10.6) k/uL RBC (3.80-5.40) m/uL Hgb (11.4-16.0) gm/dL Hct (34.0-46.0) % RDW (11.5-15.5) % Neutrophils # (1.3-7.7) k/uL Lymphocytes # (1.0-4.8) k/uL POC Glucose (mg/dL) 132 H (75-99) mg/dL Assessment and Plan Assessment: Acute hypoxic respiratory failure secondary to acute CHF exacerbation, diastolic dysfunction, acute COPD exacerbation -Lactic acidosis resolved now probably secondary to poor organ perfusion, improved now -Possible aspiration pneumonia for which patient was on Zosyn which was switched to Augmentin -Right midlung pseudotumor -History of Atrial fibrillation, currently sinus rhythm -Hypertension next and-hyperlipidemia -Acute on Chronic kidney disease, stage III , acute secondary to to ATN related to Cardiorenal syndrome, now on hemodialysis. -Hyperlipidemia -Rheumatoid arthritis -Anemia of chronic kidney disease -Hyponatremia expected to improve with hemodialysis appears to have hypervolemic hyponatremia -Moderate left pleural effusion Plan: Continue on current medication regime , Lasix, monitoring and symptomatic treatment. Hemodialysis scheduled for today and tomorrow. Repeat chest x-ray in a.m. regarding left pleural effusion. Close monitoring of renal function, hemoglobin and electrolytes with repeat labs ordered for a.m. The impression and plan of care has been dictated as directed. : I performed a history and examination of this patient, discussed the same with the dictator. I agree with the dictator's note ,documented as a scribe. Any additional findings or plans will be noted.
[2018-02-04] MEDS: DARBEPOETIN ALFA 40 MCG/0.4 ML SYRINGE SQ SCH (20:18)
[2018-02-04 20:59] LABS: Glucose,Whole Blood 130 mg/dL (75-99)
[2018-02-04] MEDS: ZOLPIDEM 5 MG TAB PO PRN (22:31)
[2018-02-05] MEDS: ACETAMINOPHEN TAB 500 MG TAB PO PRN ×2 (01:24→17:07)
[2018-02-05 06:04] LABS: Glucose,Whole Blood 118 mg/dL (75-99)
[2018-02-05] MEDS: INSULIN ASPART 100 UNIT/ML 1 ML 10 ML VIAL SQ SCH ×4 (06:08→21:09)
[2018-02-05] MEDS: CALCIUM ACETATE 667 MG CAP PO SCH ×3 (06:09→17:10)
[2018-02-05] MEDS: IPRATROPIUM-ALBUTEROL 3 ML NEB INHALATION SCH ×4 (09:00→19:31)
[2018-02-05] MEDS: BUDESONIDE 1 MG/2 ML NEBU INHALATION SCH ×2 (09:00→19:31)
[2018-02-05] MEDS: FORMOTEROL FUMARATE 20 MCG/2 ML NEBU INHALATION SCH ×2 (09:00→19:31)
--- NOTE | 2018-02-05 11:05 | P.PN ---
Subjective Progress Note Date: 02/05/18 Progress note being dictated for Dr. Ramirez. Interval history:72-year-old female admitted for severe COPD exacerbation CHF exacerbation patient is on IV Lasix and the patient is urinating patient the was started on hemodialysis here patient is not undergoing hematemesis today patient is pale euvolemic at this Point of time. Is on anticoagulation with eliquis for atrial fibrillation. Patient is off oxygen at this point of time. Patient is fairly good air entry into bilateral lung caceres. Anti-coagulation dose is being increased because of renal dysfunction. 01/31/2018 Patient overall has good clinical improvement saturating well, chest X. Showed pulmonary edema on the chest x-ray which is bit worse but clinically patient shortness of breath significantly improved 02/01/2018 Patient states she is bit tired kidney function is bit worse and will undergo hemodialysis today most probably. Patient the clinically looks okay but chest x -ray imaging yesterday did show worsening pulmonary edema. 02/02/2018 Patient underwent hemodialysis yesterday patient will undergo permacath [place] probably can be discharged tomorrow no overnight events. Constitutional : denied any fever. Cardio vascular: denied any chest pain, palpitations Gastrointestinal denied any nausea vomiting Pulmonary: As mentioned in HPI Neurologic denied any new focal deficits 02/03/2018 received hemodialysis yesterday, creatinine 4.31- HD scheduled again today. Remains oxygen dependent on 3 L nasal cannula in a patient who does not wear oxygen at home. Hemoglobin 6.7, no s/sx of bleeding, scheduled to receive 1 unit of packed RBCs with hemodialysis today. Hypertensive, hydralazine increased. Denies chest pain, palpitations. 02/04/2018 respiratory status worsened, increased shortness of breath, increased oxygen requirements- now requiring 4 L nasal cannula O2. Scheduled for hemodialysis again today. Hemoglobin currently 7.2. Chest x-ray reporting moderate left pleural effusion, persistent interstitial edema, developing right basilar alveolar edema/infiltrates. Afebrile. WBC 17.1. Cultures reporting no growth. 02/04/2018 scheduled for hemodialysis again today. Breathing improving, Oxygen is weaned down to 2 L nasal cannula, maintaining O2 sats in the mid 90s. Labs pending. Afebrile. Denies chest pain, palpitations. Objective - Vital Signs Vital signs: Vital Signs Temp 98.2 F 02/05/18 08:00 Pulse 69 02/05/18 09:19 Resp 16 02/05/18 08:00 BP 137/62 02/05/18 08:00 Pulse Ox 95 02/05/18 09:00 Intake & Output 02/04/18 02/05/18 02/05/18 18:59 06:59 18:59 Intake Total 480 240 Balance 480 240 Weight 64.5 kg 61.7 kg Intake: Oral 480 240 Other: Voiding Method Indwelling Catheter Toilet # Voids 1 3 1 # Bowel Movements 0 1 - Exam GENERAL: The patient is alert and oriented x3, no acute distress HEENT: Pupils are round and equally reacting to light. EOMI. No scleral icterus. No conjunctival pallor. Normocephalic, atraumatic. CARDIOVASCULAR: S1 and S2 present. No murmurs, rubs, or gallops. PULMONARY: Bilateral bases diminished-greater on the left, Crackles in the right posterior and upper lung caceres ABDOMEN: Soft, nontender, nondistended, normoactive bowel sounds. No palpable organomegaly. MUSCULOSKELETAL: No joint swelling or deformity. EXTREMITIES: No cyanosis, clubbing, or pedal edema. NEUROLOGICAL: Gross neurological examination did not reveal any focal deficits. SKIN: No rashes. - Labs CBC & Chem 7: 02/04/18 07:28 02/03/18 07:29 Labs: Abnormal Lab Results - Last 24 Hours (Table) 02/04/18 02/04/18 02/04/18 Range/Units 11:58 16:36 20:58 POC Glucose (mg/dL) 112 H 132 H 130 H (75-99) mg/dL 02/05/18 Range/Units 06:03 POC Glucose (mg/dL) 118 H (75-99) mg/dL Assessment and Plan Assessment: Acute hypoxic respiratory failure secondary to acute CHF exacerbation, diastolic dysfunction, acute COPD exacerbation -Lactic acidosis resolved now probably secondary to poor organ perfusion, improved now -Possible aspiration pneumonia for which patient was on Zosyn which was switched to Augmentin -Right midlung pseudotumor -History of Atrial fibrillation, currently sinus rhythm -Hypertension next and-hyperlipidemia -Acute on Chronic kidney disease, stage III , acute secondary to to ATN related to Cardiorenal syndrome, now on hemodialysis. -Hyperlipidemia -Rheumatoid arthritis -Anemia of chronic kidney disease -Hyponatremia expected to improve with hemodialysis appears to have hypervolemic hyponatremia -Moderate left pleural effusion, further pulmonary recommendations pending. Plan: Continue on current medication regime , Lasix, monitoring and symptomatic treatment. Hemodialysis scheduled for today. Close monitoring of renal function , hemoglobin and electrolytes with repeat labs ordered for a.m. discharge planning in progress. The impression and plan of care has been dictated as directed. : I performed a history and examination of this patient, discussed the same with the dictator. I agree with the dictator's note ,documented as a scribe. Any additional findings or plans will be noted.
--- NOTE | 2018-02-05 11:22 | P.PN ---
Subjective Progress Note Date: 02/05/18 Principal diagnosis: Acute exacerbation of chronic diastolic congestive heart failure as well as an acute exacerbation of chronic obstructive pulmonary disease This is a 72-year-old white female patient with past medical history of COPD, with FEV1 of 42%, chronic congestive heart failure with diastolic dysfunction, pseudotumor of the right lung, essential hypertension, rheumatoid arthritis, osteoarthritis, previous CVA/TIA, who presented to the emergency department today on 01/21/2018 at 4:00 in the morning with complaints of increasing shortness of breath. She states her shortness of breath has gradually become worse, over the past couple of days or so. She denies having any chest pain, no increase in wheezing, no phlegm production. Patient does have a congested cough. She denies any fever or chills, denies any swelling in bilateral extremities. Patient is on nebulizer treatments at home, in addition to her rescue inhaler. Patient has a history of atrial fibrillation, status post successful cardioversion in July 2017. She is on chronic anticoagulation with Eliquis. She remains in sinus rhythm on the monitor. EKG showed normal sinus rhythm with left ventricular hypertrophy with repolarization abnormality, and could not rule out septal infarct of undetermined age. Chest x-ray was completed, and showed airspace consolidation within the right lower lobe, small bilateral pleural effusions, increased interstitial markings and mild interstitial edema. There is a rounded well-circumscribed opacity within the right midlung likely representing fluid tracking within the right major fissure. After reviewing previous chest x-rays from 09/24/2017, and 09/09/2017 , the pseudotumor in the right midlung area seems to be more prominent during exacerbations of CHF. Labs did not show any leukocytosis, WBC is 8.3, hemoglobin is 8.5, INR is 1.3, d-dimer was negative for 0.49, sodium is 1:30, potassium is 3.8, chloride is 94, B1 is 34, creatinine is 1.5. Cardiac enzymes and troponins were negative 1, proBNP is significantly elevated at 12,200. Patient has positive distention of jugular veins bilaterally, no significant peripheral edema, congestive cough. In addition patient has been orthopneic. Patient was started on empiric antibiotics in the form of Zithromax and Rocephin , metolazone 2.5 mg on Thursday and Thursday. She received 1 dose of IV Lasix. We are asked to see the patient in consultation for shortness of breath. The patient is seen again today 02/02/2018 in follow-up on the selective care unit. She is currently awake and alert in no acute distress. He is maintaining O2 saturations in the 90s on 3.5 L/m per nasal cannula. She's currently afebrile. He is currently in a negative balance. She is down another kilogram today. Creatinine 3.70. Today's chest x-ray continues to show evidence of fluid volume overload with a right upper lung confluent opacity. A right internal jugular dialysis catheter was placed and her right femoral catheter was removed today. Blood cultures reveal no growth. She remains on Augmentin, bronchodilators. Anticoagulated with Eliquis. The patient is seen again today 02/03/2018 in follow-up on the selective care unit. She is awake and alert in no acute distress. She is breathing easier today as compared to yesterday. No pulmonary complaints. Maintaining O2 saturations in the 90s on room air. She's been afebrile. White count 20.2. Hemoglobin 6.7. Creatinine 4.31. The plan is to receive 1 unit of blood during dialysis today. She is receiving iron and Aranesp as well. Patient is seen again today 02/04/2018 in follow-up on the selective care unit. She is currently awake and alert in no acute distress. She is somewhat more dyspneic today as compared to yesterday. She is now requiring 4 L/m per nasal cannula to maintain O2 saturations in the 90s. Her chest x-ray does show a new small to moderate size left pleural effusion with persistent interstitial edema and or infiltrates bilaterally with focal suprahilar consolidation and/or edema right greater than left demonstrated. There is mild cardiomegaly. The plan is for ultrafiltration again today with a goal of 3 L. Most likely receive hemodialysis again tomorrow. Continued on oral Lasix. White count 17.1. Hemoglobin 7.2. The cultures reveal no growth. The patient is seen again today 2017 in follow-up on the selective care unit. She is currently resting quite comfortably in bed. She denies any worsening shortness of breath cough or congestion. We are able to decrease her O2 back down to 2 L/m per nasal cannula maintaining good O2 saturations in the 90s. She is due for another hemodialysis treatment today. We'll repeat a chest x-ray after that. If no real improvement may consider CAT scan of the chest. She remains on Lasix 80 mg orally twice a day. Objective - Vital Signs Vital signs: Vital Signs Temp 98.2 F 02/05/18 08:00 Pulse 69 02/05/18 09:19 Resp 16 02/05/18 08:00 BP 137/62 02/05/18 08:00 Pulse Ox 95 02/05/18 09:00 Intake & Output 02/04/18 02/05/18 02/05/18 18:59 06:59 18:59 Intake Total 480 240 Balance 480 240 Weight 64.5 kg 61.7 kg Intake: Oral 480 240 Other: Voiding Method Indwelling Catheter Toilet # Voids 1 3 1 # Bowel Movements 0 1 - Exam GENERAL EXAM: Alert, pleasant 72-year-old white female comfortable in no apparent distress. HEAD: Normocephalic/atraumatic. EYES: Normal reaction of pupils, equal size. Conjunctiva pink, sclera white. NOSE: Clear with pink turbinates. THROAT: No erythema or exudates. NECK: Right internal jugular catheter placed. No masses, no thyroid enlargement, no adenopathy. CHEST: No chest wall deformity. Symmetrical expansion. LUNGS: Diminished breath sounds, coarse crackles bilaterally more so on the bases CVS: Regular rate and rhythm, normal S1 and S2, no gallops, no murmurs, no rubs ABDOMEN: Soft, nontender. No hepatosplenomegaly, normal bowel sounds, no guarding or rigidity. EXTREMITIES: No clubbing, no edema, no cyanosis, 2+ pulses and upper and lower extremities. Right femoral catheter removed. MUSCULOSKELETAL: Muscle strength and tone normal. SPINE: No scoliosis or deformity SKIN: No rashes CENTRAL NERVOUS SYSTEM: Alert and oriented -3. No focal deficits, tone is normal in all 4 extremities. PSYCHIATRIC: Alert and oriented -3. Appropriate affect. Intact judgment and insight. - Labs CBC & Chem 7: 02/04/18 07:28 02/03/18 07:29 Labs: Abnormal Lab Results - Last 24 Hours (Table) 02/04/18 02/04/18 02/04/18 Range/Units 11:58 16:36 20:58 POC Glucose (mg/dL) 112 H 132 H 130 H (75-99) mg/dL 02/05/18 Range/Units 06:03 POC Glucose (mg/dL) 118 H (75-99) mg/dL Assessment and Plan Assessment: Assessment: #1. Progressive dyspnea, orthopnea related to acute exacerbation of congestive heart failure, with diastolic dysfunction and bilateral pleural effusions. To receive another day of hemodialysis. We'll repeat a chest x-ray following the treatment. #2. Acute exacerbation of chronic obstructive pulmonary disease. #3. History of severe COPD, with underlying FEV1 of 43% of predicted. #4. Right midlung pseudotumor with fluid in the major fissure seen on the chest x-ray, compared to previous studies, and appears to be more prominent during times of CHF exacerbation. #5. History of A. fib, status post successful cardioversion in July 2017 currently in sinus rhythm, on chronic anticoagulation with Eliquis #6. History of chronic kidney disease secondary to nephrosclerosis now hemodialysis dependent. #7. Hypertension #8. Hyperlipidemia #9. Rheumatoid arthritis #10. History of nicotine dependence, currently in remission #11. Chronic anemia with current hemoglobin 7.2 status post 1 unit of transfused packed red blood cells. #12. Hyponatremia, serum sodium is 132 Plan: The patient was seen and evaluated by Dr. Talbot. The patient's oxygen requirements have improved today compared to yesterday down to 2 L/m per nasal cannula. The plan is for repeat hemodialysis today with a goal of 3 L of ultrafiltration. We'll repeat a chest x-ray following that. If no real improvement may consider computed tomography scan of the chest or even possibly bronchoscopy. We will continue to follow. I, the cosigning physician, performed a history & physical examination of the patient. Lungs sounds with crackles in the bilateral bases more so on the left. Maintaining good O2 saturations in the 90s on 2 L/m per nasal cannula. I discussed the assessment and plan of care with my nurse practitioner, Shakila Munson. I attest to the above note as dictated by her.
[2018-02-05 11:35] LABS: Glucose,Whole Blood 99 mg/dL (75-99)
[2018-02-05 11:42] LABS: Calcium 8.9 mg/dL (8.4-10.2); Potassium 3.1 mmol/L (3.5-5.1)
[2018-02-05 11:49] LABS: Anisocytosis Slight; Basophils % (A) 0 %; Eosinophils # (A) 0.1 k/uL (0-0.7); Eosinophils % (A) 1 %; HCT 23.2 % (34.0-46.0); HGB 7.3 gm/dL (11.4-16.0); Hypochromasia Slight; Lymphocytes # (A) 0.5 k/uL (1.0-4.8); Lymphocytes % (A) 4 %; MCH 29.7 pg (25.0-35.0); MCHC 31.6 g/dL (31.0-37.0); MCV 94.2 fL (80.0-100.0); Mean Platelet Volume 7.3; Monocytes # (A) 0.6 k/uL (0-1.0); Monocytes % (A) 5 %; Neutrophils # (A) 10.1 k/uL (1.3-7.7); Neutrophils % (A) 87 %; Platelet Count 293 k/uL (150-450); Poikilocytosis Slight; RBC 2.46 m/uL (3.80-5.40); RDW 17.4 % (11.5-15.5); WBC 11.6 k/uL (3.8-10.6)
[2018-02-05] MEDS ORDERED: POTASSIUM CHLORIDE ER 20 MEQ TAB.ER PO STA (12:38)
--- NOTE | 2018-02-05 12:40 | P.PN ---
Subjective Patient is seen in follow-up for acute kidney injury. Patient remains hemodialysis dependent. Currently resting in bed. Oral intake is fair. Dyspnea is improved. Denies active chest pain or shortness of breath. Vital signs are stable. General: The patient appeared well nourished and normally developed. HEENT: Head exam is unremarkable. Neck is without jugular venous distension. LUNGS: Breath sounds decreased. HEART: Rate and Rhythm are regular. First and second heart sounds normal. No murmurs, rubs or gallops. ABDOMEN: Abdominal exam reveals normal bowel sounds. Non-tender and non- distended. No evidence of peritonitis. EXTREMITITES: No clubbing, cyanosis, or edema. Objective - Vital Signs Vital signs: Vital Signs Temp 97 F L 02/05/18 12:00 Pulse 87 02/05/18 12:00 Resp 16 02/05/18 12:00 BP 108/76 02/05/18 12:00 Pulse Ox 94 L 02/05/18 12:00 Intake & Output 02/04/18 02/05/18 02/05/18 18:59 06:59 18:59 Intake Total 480 240 Balance 480 240 Weight 64.5 kg 61.7 kg Intake: Oral 480 240 Other: Voiding Method Indwelling Catheter Toilet # Voids 1 3 1 # Bowel Movements 0 1 - Labs CBC & Chem 7: 02/05/18 11:17 02/05/18 11:17 Labs: Abnormal Lab Results - Last 24 Hours (Table) 02/04/18 02/04/18 02/05/18 Range/Units 16:36 20:58 06:03 WBC (3.8-10.6) k/uL RBC (3.80-5.40) m/uL Hgb (11.4-16.0) gm/dL Hct (34.0-46.0) % RDW (11.5-15.5) % Neutrophils # (1.3-7.7) k/uL Lymphocytes # (1.0-4.8) k/uL Sodium (137-145) mmol/L Potassium (3.5-5.1) mmol/L Chloride (98-107) mmol/L BUN (7-17) mg/dL Creatinine (0.52-1.04) mg/dL POC Glucose (mg/dL) 132 H 130 H 118 H (75-99) mg/dL 02/05/18 02/05/18 Range/Units 11:17 11:17 WBC 11.6 H (3.8-10.6) k/uL RBC 2.46 L (3.80-5.40) m/uL Hgb 7.3 L (11.4-16.0) gm/dL Hct 23.2 L (34.0-46.0) % RDW 17.4 H (11.5-15.5) % Neutrophils # 10.1 H (1.3-7.7) k/uL Lymphocytes # 0.5 L (1.0-4.8) k/uL Sodium 132 L (137-145) mmol/L Potassium 3.1 L (3.5-5.1) mmol/L Chloride 93 L (98-107) mmol/L BUN 21 H (7-17) mg/dL Creatinine 2.29 H (0.52-1.04) mg/dL POC Glucose (mg/dL) (75-99) mg/dL Assessment and Plan Plan: Assessment: 1. Acute kidney injury secondary to ATN secondary to cardiorenal syndrome. Currently hemodialysis dependent, Thursday schedule. 2. Chronic kidney disease stage III with baseline creatinine in the range of 1.5-2 secondary to nephrosclerosis and cardiorenal syndrome. 3. Diastolic CHF. 4. Anemia of chronic kidney disease. Iron deficiency noted. Status post 3 doses of IV iron. Maintained on Aranesp. Status post blood transfusion on February 03. 5. Chronic kidney disease mineral bone disease maintained on PhosLo and calcitriol. 6. Atrial fibrillation maintained on Eliquis as and Lopressor. 7. Hypertension with chronic kidney disease. Blood pressures on the higher side. 8. Hyponatremia secondary to acute kidney injury. Improved postdialysis. Plan: Hemodialysis treatment today with goal 3 L ultrafiltration. Maintain Lasix 80 mg orally twice daily. Phosphorus level at goal. information technology program manager on board to help facilitate outpatient hemodialysis set up. Replace potassium. 80 mEq today. Check magnesium level as well.
[2018-02-05] MEDS: hydrALAZINE HCL 50 MG TAB PO SCH ×3 (15:06→20:40)
[2018-02-05] MEDS: FUROSEMIDE 80 MG TAB PO SCH ×2 (15:06→17:11)
[2018-02-05 16:24] LABS: Glucose,Whole Blood 88 mg/dL (75-99)
[2018-02-05] MEDS: AMIODARONE 100 MG TAB PO SCH (17:09)
[2018-02-05] MEDS: predniSONE 10 MG TAB PO SCH (17:09)
[2018-02-05] MEDS: APIXABAN 2.5 MG TABLET PO SCH ×2 (17:10)
[2018-02-05] MEDS: CALCITRIOL 0.25 MCG CAP PO SCH (17:10)
[2018-02-05] MEDS: ATORVASTATIN 20 MG TAB PO SCH (17:10)
[2018-02-05] MEDS: PANTOPRAZOLE 40 MG/10 ML VIAL IVP SCH (17:11)
[2018-02-05] MEDS: METOPROLOL TARTRATE 50 MG TAB PO SCH ×2 (17:12→20:39)
[2018-02-05] MEDS: amLODIPine 10 MG TAB PO SCH (17:12)
[2018-02-05] MEDS: ALLOPURINOL 100 MG TAB PO SCH (17:12)
[2018-02-05] MEDS: SERTRALINE 50 MG TAB PO SCH (17:12)
[2018-02-05] MEDS: AMOXIC-POT CLAV 500-125 MG 1 EACH TAB PO SCH (17:12)
[2018-02-05 20:58] LABS: Glucose,Whole Blood 142 mg/dL (75-99)
[2018-02-05] MEDS: ZOLPIDEM 5 MG TAB PO PRN (23:24)
[2018-02-06 01:20] VITALS: TEMP 98.2
[2018-02-06 06:45] LABS: Glucose,Whole Blood 108 mg/dL (75-99)
[2018-02-06] MEDS: INSULIN ASPART 100 UNIT/ML 1 ML 10 ML VIAL SQ SCH (07:49)
[2018-02-06 07:52] VITALS: BP 163/73; RESP 18
[2018-02-06] MEDS: ALLOPURINOL 100 MG TAB PO SCH (07:56)
[2018-02-06] MEDS: SERTRALINE 50 MG TAB PO SCH (07:56)
[2018-02-06] MEDS: PANTOPRAZOLE 40 MG/10 ML VIAL IVP SCH (07:56)
[2018-02-06] MEDS: METOPROLOL TARTRATE 50 MG TAB PO SCH (07:57)
[2018-02-06] MEDS: APIXABAN 2.5 MG TABLET PO SCH (07:57)
[2018-02-06] MEDS: ATORVASTATIN 20 MG TAB PO SCH (07:57)
[2018-02-06] MEDS: hydrALAZINE HCL 50 MG TAB PO SCH (07:57)
[2018-02-06] MEDS: amLODIPine 10 MG TAB PO SCH (07:57)
[2018-02-06] MEDS: AMIODARONE 100 MG TAB PO SCH (07:58)
[2018-02-06] MEDS: CALCITRIOL 0.25 MCG CAP PO SCH (07:58)
[2018-02-06] MEDS: predniSONE 10 MG TAB PO SCH (07:58)
[2018-02-06] MEDS: AMOXIC-POT CLAV 500-125 MG 1 EACH TAB PO SCH (07:58)
[2018-02-06] MEDS: FUROSEMIDE 80 MG TAB PO SCH (07:58)
[2018-02-06] MEDS: CALCIUM ACETATE 667 MG CAP PO SCH (08:00)
[2018-02-06 08:05] LABS: Calcium 8.7 mg/dL (8.4-10.2); Magnesium 1.8 mg/dL (1.6-2.3); Potassium 4.6 mmol/L (3.5-5.1)
--- NOTE | 2018-02-06 08:08 | XR ---
EXAMINATION TYPE: XR chest 1V portable DATE OF EXAM: 02/06/2018 HISTORY: chf/pneumonia. REFERENCE: Previous study dated 02/04/2018. FINDINGS: There is a large-bore, double-lumen catheter in place via a right internal jugular approach . Its tip is in the right atrium. There is continuing bilateral airspace disease. This has partially improved on the right. Heart size upper limits of normal. There is a small left pleural effusion. This has improved. IMPRESSION: SLIGHT IMPROVEMENT IN AERATION OF THE RIGHT LUNG AND IMPROVING LEFT EFFUSION. PLEASE CORRELATE FOR CO NGESTIVE HEART FAILURE.
[2018-02-06] MEDS: IPRATROPIUM-ALBUTEROL 3 ML NEB INHALATION SCH ×2 (08:33→12:35)
[2018-02-06] MEDS: FORMOTEROL FUMARATE 20 MCG/2 ML NEBU INHALATION SCH (08:33)
[2018-02-06] MEDS: BUDESONIDE 1 MG/2 ML NEBU INHALATION SCH (08:33)
[2018-02-06 08:37] VITALS: PULSE 60
--- NOTE | 2018-02-06 08:58 | P.PN ---
Subjective Patient is seen in follow-up for acute kidney injury. Patient remains hemodialysis dependent. Currently resting in bed. Oral intake is fair. Dyspnea is improved. Denies active chest pain or shortness of breath. Tolerated hemodialysis well yesterday. Vital signs are stable. General: The patient appeared well nourished and normally developed. HEENT: Head exam is unremarkable. Neck is without jugular venous distension. LUNGS: Breath sounds decreased. HEART: Rate and Rhythm are regular. First and second heart sounds normal. No murmurs, rubs or gallops. ABDOMEN: Abdominal exam reveals normal bowel sounds. Non-tender and non- distended. No evidence of peritonitis. EXTREMITITES: No clubbing, cyanosis, or edema. Objective - Vital Signs Vital signs: Vital Signs Temp 98.2 F 02/06/18 07:52 Pulse 60 02/06/18 08:44 Resp 18 02/06/18 08:37 BP 163/73 02/06/18 07:52 Pulse Ox 94 L 02/06/18 07:52 Intake & Output 02/05/18 02/06/18 02/06/18 18:59 06:59 18:59 Intake Total 598 300 Balance 598 300 Intake: Oral 598 300 Other: Voiding Method Toilet Toilet Toilet # Voids 1 # Bowel Movements 1 - Labs CBC & Chem 7: 02/05/18 11:17 02/06/18 06:30 Labs: Abnormal Lab Results - Last 24 Hours (Table) 02/05/18 02/05/18 02/05/18 Range/Units 11:17 11:17 20:56 WBC 11.6 H (3.8-10.6) k/uL RBC 2.46 L (3.80-5.40) m/uL Hgb 7.3 L (11.4-16.0) gm/dL Hct 23.2 L (34.0-46.0) % RDW 17.4 H (11.5-15.5) % Neutrophils # 10.1 H (1.3-7.7) k/uL Lymphocytes # 0.5 L (1.0-4.8) k/uL Sodium 132 L (137-145) mmol/L Potassium 3.1 L (3.5-5.1) mmol/L Chloride 93 L (98-107) mmol/L BUN 21 H (7-17) mg/dL Creatinine 2.29 H (0.52-1.04) mg/dL POC Glucose (mg/dL) 142 H (75-99) mg/dL 02/06/18 02/06/18 Range/Units 06:30 06:44 WBC (3.8-10.6) k/uL RBC (3.80-5.40) m/uL Hgb (11.4-16.0) gm/dL Hct (34.0-46.0) % RDW (11.5-15.5) % Neutrophils # (1.3-7.7) k/uL Lymphocytes # (1.0-4.8) k/uL Sodium 135 L (137-145) mmol/L Potassium (3.5-5.1) mmol/L Chloride 97 L (98-107) mmol/L BUN (7-17) mg/dL Creatinine 1.78 H (0.52-1.04) mg/dL POC Glucose (mg/dL) 108 H (75-99) mg/dL Assessment and Plan Plan: Assessment: 1. Acute kidney injury secondary to ATN secondary to cardiorenal syndrome. Currently hemodialysis dependent, Thursday schedule. 2. Chronic kidney disease stage III with baseline creatinine in the range of 1.5-2 secondary to nephrosclerosis and cardiorenal syndrome. 3. Diastolic CHF. 4. Anemia of chronic kidney disease. Iron deficiency noted. Status post 3 doses of IV iron. Maintained on Aranesp. Status post blood transfusion on February 03. 5. Chronic kidney disease mineral bone disease maintained on PhosLo and calcitriol. 6. Atrial fibrillation maintained on Eliquis as and Lopressor. 7. Hypertension with chronic kidney disease. Blood pressures on the higher side. 8. Hyponatremia secondary to acute kidney injury. Improved postdialysis. Plan: She will now be maintained on hemodialysis on a Thursday schedule. Outpatient hemodialysis has been set up. Maintain Lasix 80 mg orally twice daily. Phosphorus level at goal. Scheduled for discharge today.
[2018-02-06 11:33] LABS: Glucose,Whole Blood 103 mg/dL (75-99)
--- NOTE | 2018-02-06 12:14 | P.DS ---
Providers Date of admission: 01/21/18 06:37 Attending physician: Steve Hudson Consults: 01/21/18 09:56 Consult Physician Routine Consulting Provider: Caroline Talbot Consult Reason/Comments: PNEUMONIA Do you want consulting provider notified?: Yes 01/24/18 09:25 Consult Physician Routine Consulting Provider: Kaela Vargas Consult Reason/Comments: Acute on chronic renal failure Do you want consulting provider notified?: Yes 01/27/18 07:41 Consult Physician Urgent Consulting Provider: Shahab Dickens Consult Reason/Comments: hemocath placement Do you want consulting provider notified?: Yes 02/01/18 11:26 Consult Physician Stat Consulting Provider: Shahab Dickens Consult Reason/Comments: removal of fem dialysis cath and insertion of permacath. Do you want consulting provider notified?: Yes Primary care physician: Soren Desai Hospital Course: 72-year-old female admitted for severe COPD exacerbation CHF exacerbation patient is on IV Lasix and the patient is urinating patient the was started on hemodialysis here patient is not undergoing hematemesis today patient is pale euvolemic at this Point of time. Is on anticoagulation with eliquis for atrial fibrillation. Patient is off oxygen at this point of time. Patient is fairly good air entry into bilateral lung caceres. Anti-coagulation dose is being increased because of renal dysfunction. 01/31/2018 Patient overall has good clinical improvement saturating well, chest X. Showed pulmonary edema on the chest x-ray which is bit worse but clinically patient shortness of breath significantly improved 02/01/2018 Patient states she is bit tired kidney function is bit worse and will undergo hemodialysis today most probably. Patient the clinically looks okay but chest x -ray imaging yesterday did show worsening pulmonary edema. 02/02/2018 Patient underwent hemodialysis yesterday patient will undergo permacath [place] probably can be discharged tomorrow no overnight events. Constitutional : denied any fever. Cardio vascular: denied any chest pain, palpitations Gastrointestinal denied any nausea vomiting Pulmonary: As mentioned in HPI Neurologic denied any new focal deficits 02/03/2018 received hemodialysis yesterday, creatinine 4.31- HD scheduled again today. Remains oxygen dependent on 3 L nasal cannula in a patient who does not wear oxygen at home. Hemoglobin 6.7, no s/sx of bleeding, scheduled to receive 1 unit of packed RBCs with hemodialysis today. Hypertensive, hydralazine increased. Denies chest pain, palpitations. 02/04/2018 respiratory status worsened, increased shortness of breath, increased oxygen requirements- now requiring 4 L nasal cannula O2. Scheduled for hemodialysis again today. Hemoglobin currently 7.2. Chest x-ray reporting moderate left pleural effusion, persistent interstitial edema, developing right basilar alveolar edema/infiltrates. Afebrile. WBC 17.1. Cultures reporting no growth. 02/04/2018 scheduled for hemodialysis again today. Breathing improving, Oxygen is weaned down to 2 L nasal cannula, maintaining O2 sats in the mid 90s. Labs pending. Afebrile. Denies chest pain, palpitations. 02/06/2018 patient is clinically doing well no overnight events is not requiring artisan will ablate the patient if his she is saturating well patient will be discharged today and the outpatient hemodialysis was already set up patient was cleared by nephrology. Still has some pulmonary edema but significantly improved. GENERAL: The patient is alert and oriented x3, no acute distress HEENT: Pupils are round and equally reacting to light. EOMI. No scleral icterus. No conjunctival pallor. Normocephalic, atraumatic. CARDIOVASCULAR: S1 and S2 present. No murmurs, rubs, or gallops. PULMONARY: Bilateral bases diminished-greater on the left, Crackles in the right posterior and upper lung caceres ABDOMEN: Soft, nontender, nondistended, normoactive bowel sounds. No palpable organomegaly. MUSCULOSKELETAL: No joint swelling or deformity. EXTREMITIES: No cyanosis, clubbing, or pedal edema. NEUROLOGICAL: Gross neurological examination did not reveal any focal deficits. SKIN: No rashes. Assessment and Plan Assessment: Acute hypoxic respiratory failure secondary to acute CHF exacerbation, diastolic dysfunction, acute COPD exacerbation -Lactic acidosis resolved now probably secondary to poor organ perfusion, improved now -Possible aspiration pneumonia complete course with Augmentin -Right midlung pseudotumor -History of Atrial fibrillation, currently sinus rhythm -Hypertension next and-hyperlipidemia -Acute on Chronic kidney disease, stage III , acute secondary to to ATN related to Cardiorenal syndrome, now on hemodialysis. -Hyperlipidemia -Rheumatoid arthritis -Anemia of chronic kidney disease -Hyponatremia improved improved Patient Condition at Discharge: Fair Plan - Discharge Summary Discharge Rx Participant: No New Discharge Prescriptions: New Amiodarone [Cordarone] 100 mg PO DAILY tab Amoxic-Pot Clav 500-125 mg [Augmentin 500-125 mg] 1 each PO DAILY #6 tab Apixaban [Eliquis] 2.5 mg PO BID #60 tablet Budesonide-Formot 160-4.5 Mcg [Symbicort 160-4.5 Mcg Inhaler] 2 puff INHALATION BID #1 inhaler Calcium Acetate [PhosLo] 667 mg PO TID-W/MEALS #90 cap Furosemide [Lasix] 80 mg PO BID@0900,1600 #60 tab Metoprolol Tartrate [Lopressor] 50 mg PO BID #60 tab predniSONE 10 mg PO DAILY #30 tab Continue Sertraline HCl [Zoloft] 50 mg PO DAILY amLODIPine [Norvasc] 10 mg PO DAILY tab Ipratropium-Albuterol Nebulize [Duoneb 0.5 mg-3 mg/3 ml Soln] 3 ml INHALATION RT-QID Calcitriol [Rocaltrol] 0.5 mcg PO DAILY Atorvastatin Calcium [Lipitor] 20 mg PO DAILY Allopurinol [Zyloprim] 100 mg PO DAILY Albuterol Inhaler [Ventolin Hfa Inhaler] 1 - 2 puff INHALATION RT-Q6H PRN PRN Reason: Wheezing Zolpidem [Ambien] 5 mg PO HS PRN PRN Reason: Insomnia hydrALAZINE HCL 50 mg PO TID Discontinued Potassium Chloride ER [K-Dur 20] 20 meq PO DAILY #30 tab.er.prt Apixaban [Eliquis] 5 mg PO BID Amiodarone [Cordarone] 100 mg PO DAILY Metoprolol Tartrate 25 mg PO BID Discharge Medication List Sertraline HCl [Zoloft] 50 mg PO DAILY 04/30/17 [History] amLODIPine [Norvasc] 10 mg PO DAILY tab 07/16/17 [Rx] Allopurinol [Zyloprim] 100 mg PO DAILY 09/09/17 [History] Atorvastatin Calcium [Lipitor] 20 mg PO DAILY 09/09/17 [History] Calcitriol [Rocaltrol] 0.5 mcg PO DAILY 09/09/17 [History] Ipratropium-Albuterol Nebulize [Duoneb 0.5 mg-3 mg/3 ml Soln] 3 ml INHALATION RT -QID 09/09/17 [History] Albuterol Inhaler [Ventolin Hfa Inhaler] 1 - 2 puff INHALATION RT-Q6H PRN [History] Zolpidem [Ambien] 5 mg PO HS PRN 01/21/18 [History] hydrALAZINE HCL 50 mg PO TID 01/21/18 [History] Amiodarone [Cordarone] 100 mg PO DAILY tab 02/06/18 [Rx] Amoxic-Pot Clav 500-125 mg [Augmentin 500-125 mg] 1 each PO DAILY #6 tab [Rx] Apixaban [Eliquis] 2.5 mg PO BID #60 tablet 02/06/18 [Rx] Budesonide-Formot 160-4.5 Mcg [Symbicort 160-4.5 Mcg Inhaler] 2 puff INHALATION BID #1 inhaler 02/06/18 [Rx] Calcium Acetate [PhosLo] 667 mg PO TID-W/MEALS #90 cap 02/06/18 [Rx] Furosemide [Lasix] 80 mg PO BID@0900,1600 #60 tab 02/06/18 [Rx] Metoprolol Tartrate [Lopressor] 50 mg PO BID #60 tab 02/06/18 [Rx] predniSONE 10 mg PO DAILY #30 tab 02/06/18 [Rx] Follow up Appointment(s)/Referral(s): Caroline Talbot MD [STAFF PHYSICIAN] - 02/16/18 11:00 am (Pulmonary-) Kaela Vargas MD [STAFF PHYSICIAN] - 1 Week (Kidneys- Dr. Vargas will follow up with you at dialysis.) Soren Desai MD [Primary Care Provider] - 02/18/18 8:20 am [facility], [NON-STAFF] - Shahab Dickens MD [STAFF PHYSICIAN] - As Needed (Vascular Surgeon- Hemodialysis port insertion.) Patient Instructions/Handouts: Heart Failure (DC), Dialysis Diet (DC), Heart Healthy Diet (DC), Pneumonia (DC), Hemodialysis (DC) Activity/Diet/Wound Care/Special Instructions: Hemodialysis plan for M,W,F - first treatment scheduled for Feb 08 @ 10:[address] [place] [address], [address], [place], [place] [phone]
--- NOTE | 2018-02-06 14:14 | P.PN ---
Subjective Progress Note Date: 02/06/18 Principal diagnosis: Acute exacerbation of chronic diastolic congestive heart failure as well as an acute exacerbation of chronic obstructive pulmonary disease This is a 72-year-old white female patient with past medical history of COPD, with FEV1 of 42%, chronic congestive heart failure with diastolic dysfunction, pseudotumor of the right lung, essential hypertension, rheumatoid arthritis, osteoarthritis, previous CVA/TIA, who presented to the emergency department today on 01/21/2018 at 4:00 in the morning with complaints of increasing shortness of breath. She states her shortness of breath has gradually become worse, over the past couple of days or so. She denies having any chest pain, no increase in wheezing, no phlegm production. Patient does have a congested cough. She denies any fever or chills, denies any swelling in bilateral extremities. Patient is on nebulizer treatments at home, in addition to her rescue inhaler. Patient has a history of atrial fibrillation, status post successful cardioversion in July 2017. She is on chronic anticoagulation with Eliquis. She remains in sinus rhythm on the monitor. EKG showed normal sinus rhythm with left ventricular hypertrophy with repolarization abnormality, and could not rule out septal infarct of undetermined age. Chest x-ray was completed, and showed airspace consolidation within the right lower lobe, small bilateral pleural effusions, increased interstitial markings and mild interstitial edema. There is a rounded well-circumscribed opacity within the right midlung likely representing fluid tracking within the right major fissure. After reviewing previous chest x-rays from 09/24/2017, and 09/09/2017 , the pseudotumor in the right midlung area seems to be more prominent during exacerbations of CHF. Labs did not show any leukocytosis, WBC is 8.3, hemoglobin is 8.5, INR is 1.3, d-dimer was negative for 0.49, sodium is 1:30, potassium is 3.8, chloride is 94, B1 is 34, creatinine is 1.5. Cardiac enzymes and troponins were negative 1, proBNP is significantly elevated at 12,200. Patient has positive distention of jugular veins bilaterally, no significant peripheral edema, congestive cough. In addition patient has been orthopneic. Patient was started on empiric antibiotics in the form of Zithromax and Rocephin , metolazone 2.5 mg on Thursday and Thursday. She received 1 dose of IV Lasix. We are asked to see the patient in consultation for shortness of breath. The patient is seen again today 02/02/2018 in follow-up on the selective care unit. She is currently awake and alert in no acute distress. He is maintaining O2 saturations in the 90s on 3.5 L/m per nasal cannula. She's currently afebrile. He is currently in a negative balance. She is down another kilogram today. Creatinine 3.70. Today's chest x-ray continues to show evidence of fluid volume overload with a right upper lung confluent opacity. A right internal jugular dialysis catheter was placed and her right femoral catheter was removed today. Blood cultures reveal no growth. She remains on Augmentin, bronchodilators. Anticoagulated with Eliquis. The patient is seen again today 02/03/2018 in follow-up on the selective care unit. She is awake and alert in no acute distress. She is breathing easier today as compared to yesterday. No pulmonary complaints. Maintaining O2 saturations in the 90s on room air. She's been afebrile. White count 20.2. Hemoglobin 6.7. Creatinine 4.31. The plan is to receive 1 unit of blood during dialysis today. She is receiving iron and Aranesp as well. Patient is seen again today 02/04/2018 in follow-up on the selective care unit. She is currently awake and alert in no acute distress. She is somewhat more dyspneic today as compared to yesterday. She is now requiring 4 L/m per nasal cannula to maintain O2 saturations in the 90s. Her chest x-ray does show a new small to moderate size left pleural effusion with persistent interstitial edema and or infiltrates bilaterally with focal suprahilar consolidation and/or edema right greater than left demonstrated. There is mild cardiomegaly. The plan is for ultrafiltration again today with a goal of 3 L. Most likely receive hemodialysis again tomorrow. Continued on oral Lasix. White count 17.1. Hemoglobin 7.2. The cultures reveal no growth. The patient is seen again today 2017 in follow-up on the selective care unit. She is currently resting quite comfortably in bed. She denies any worsening shortness of breath cough or congestion. We are able to decrease her O2 back down to 2 L/m per nasal cannula maintaining good O2 saturations in the 90s. She is due for another hemodialysis treatment today. We'll repeat a chest x-ray after that. If no real improvement may consider CAT scan of the chest. She remains on Lasix 80 mg orally twice a day. The patient is seen again today 02/06/2018 in follow-up on the regular surgical floor. She is currently sitting up in bed. She is awake and alert in no acute distress. She denies any worsening shortness of breath, cough or congestion. She is maintaining good O2 saturations in the 90s on room air now. Creatinine 1.78. She is anxious to go home. Objective - Vital Signs Vital signs: Vital Signs Temp 98.2 F 02/06/18 07:52 Pulse 60 02/06/18 08:56 Resp 18 02/06/18 08:37 BP 163/73 02/06/18 07:52 Pulse Ox 93 L 02/06/18 12:03 Intake & Output 02/05/18 02/06/18 02/06/18 18:59 06:59 18:59 Intake Total 598 300 257 Balance 598 300 257 Intake: Oral 598 300 257 Other: Voiding Method Toilet Toilet Toilet # Voids 1 # Bowel Movements 1 - Exam GENERAL EXAM: Alert, pleasant 72-year-old white female comfortable in no apparent distress. HEAD: Normocephalic/atraumatic. EYES: Normal reaction of pupils, equal size. Conjunctiva pink, sclera white. NOSE: Clear with pink turbinates. THROAT: No erythema or exudates. NECK: Right internal jugular catheter placed. No masses, no thyroid enlargement, no adenopathy. CHEST: No chest wall deformity. Symmetrical expansion. LUNGS: Diminished breath sounds, coarse crackles bilaterally more so on the bases CVS: Regular rate and rhythm, normal S1 and S2, no gallops, no murmurs, no rubs ABDOMEN: Soft, nontender. No hepatosplenomegaly, normal bowel sounds, no guarding or rigidity. EXTREMITIES: No clubbing, no edema, no cyanosis, 2+ pulses and upper and lower extremities. Right femoral catheter removed. MUSCULOSKELETAL: Muscle strength and tone normal. SPINE: No scoliosis or deformity SKIN: No rashes CENTRAL NERVOUS SYSTEM: Alert and oriented -3. No focal deficits, tone is normal in all 4 extremities. PSYCHIATRIC: Alert and oriented -3. Appropriate affect. Intact judgment and insight. - Labs CBC & Chem 7: 02/05/18 11:17 02/06/18 06:30 Labs: Abnormal Lab Results - Last 24 Hours (Table) 02/05/18 02/06/18 02/06/18 Range/Units 20:56 06:30 06:44 Sodium 135 L (137-145) mmol/L Chloride 97 L (98-107) mmol/L Creatinine 1.78 H (0.52-1.04) mg/dL POC Glucose (mg/dL) 142 H 108 H (75-99) mg/dL 02/06/18 Range/Units 11:32 Sodium (137-145) mmol/L Chloride (98-107) mmol/L Creatinine (0.52-1.04) mg/dL POC Glucose (mg/dL) 103 H (75-99) mg/dL Assessment and Plan Assessment: Assessment: #1. Progressive dyspnea, orthopnea related to acute exacerbation of congestive heart failure, with diastolic dysfunction and bilateral pleural effusions. Recovered. #2. Acute exacerbation of chronic obstructive pulmonary disease. #3. History of severe COPD, with underlying FEV1 of 43% of predicted. #4. Right midlung pseudotumor with fluid in the major fissure seen on the chest x-ray, compared to previous studies, and appears to be more prominent during times of CHF exacerbation. #5. History of A. fib, status post successful cardioversion in July 2017 currently in sinus rhythm, on chronic anticoagulation with Eliquis #6. History of chronic kidney disease secondary to nephrosclerosis now hemodialysis dependent. #7. Hypertension #8. Hyperlipidemia #9. Rheumatoid arthritis #10. History of nicotine dependence, currently in remission #11. Chronic anemia with current hemoglobin 7.2 status post 1 unit of transfused packed red blood cells. #12. Hyponatremia, serum sodium is 135 Plan: The patient was seen and evaluated by Dr. Talbot. The patient is stable from the pulmonary standpoint. Upon discharge she'll follow up with Dr. Talbot in our office in 1-2 weeks' time. We'll repeat a chest x-ray then. She and her however encouraged to call sooner with any recurrence of symptoms or other questions or concerns. I, the cosigning physician, performed a history & physical examination of the patient. Lungs sounds with crackles in the bilateral bases more so on the left. Maintaining good O2 saturations in the 90s on room air.. I discussed the assessment and plan of care with my nurse practitioner, Shakila Munson. I attest to the above note as dictated by her.
== END 2018-02-06 14:00 | disposition home health service (06) | DRG 291 ==
LOC: EC 03:54 → 4MS4W 06:37 → 6ICU 01-27 06:10 → 6SEL 01-30 00:30 → 3SUR 02-05 21:59
PROVIDERS: ADMIT Hospitalist; ATTEND Hospitalist
PROC: 06HY33Z Insertion of Infusion Device into Lower Vein, Percutaneous Approach (ICD-10-PCS; 2018-01-27)
PROC: 5A1D70Z Performance of Urinary Filtration, Intermittent, Less than 6 Hours Per Day (ICD-10-PCS; 2018-01-27)
PROC: 5A09457 Assistance with Respiratory Ventilation, 24-96 Consecutive Hours, Continuous Positive Airway Pressure (ICD-10-PCS; 2018-01-27)
PROC: 06PYX3Z Removal of Infusion Device from Lower Vein, External Approach (ICD-10-PCS; 2018-02-02)
PROC: 0JH63XZ Insertion of Tunneled Vascular Access Device into Chest Subcutaneous Tissue and Fascia, Percutaneous Approach (ICD-10-PCS; principal; 2018-02-02 09:12)
PROC: 02HV33Z Insertion of Infusion Device into Superior Vena Cava, Percutaneous Approach (ICD-10-PCS; 2018-02-02 09:12)
PROC: 30243N1 Transfusion of Nonautologous Red Blood Cells into Central Vein, Percutaneous Approach (ICD-10-PCS; 2018-02-03)
DX: I13.0 Hypertensive heart and chronic kidney disease with heart failure and stage 1 through stage 4 chronic kidney disease, or unspecified chronic kidney disease (principal); I50.33 Acute on chronic diastolic (congestive) heart failure; J96.01 Acute respiratory failure with hypoxia; N17.0 Acute kidney failure with tubular necrosis; N18.6 End stage renal disease; J69.0 Pneumonitis due to inhalation of food and vomit; E87.1 Hypo-osmolality and hyponatremia; E87.2 Acidosis; J44.1 Chronic obstructive pulmonary disease with (acute) exacerbation; E86.1 Hypovolemia; I95.9 Hypotension, unspecified; E87.5 Hyperkalemia; J98.4 Other disorders of lung; E83.39 Other disorders of phosphorus metabolism; I48.0 Paroxysmal atrial fibrillation; M06.9 Rheumatoid arthritis, unspecified; D63.1 Anemia in chronic kidney disease; E61.1 Iron deficiency; T50.2X5A Adverse effect of carbonic-anhydrase inhibitors, benzothiadiazides and other diuretics, initial encounter; E78.5 Hyperlipidemia, unspecified; F32.9 Major depressive disorder, single episode, unspecified; F41.9 Anxiety disorder, unspecified; E83.89 Other disorders of mineral metabolism; M19.90 Unspecified osteoarthritis, unspecified site; Z79.01 Long term (current) use of anticoagulants; Z79.899 Other long term (current) drug therapy; Z87.01 Personal history of pneumonia (recurrent); Z86.73 Personal history of transient ischemic attack (TIA), and cerebral infarction without residual deficits; Z87.891 Personal history of nicotine dependence; Y92.239 Unspecified place in hospital as the place of occurrence of the external cause
CPT/HCPCS: 36415; 36558; 71045; 71046; 76770; 76937; 77001; 80048; 80053; 81001; 81003; 82550; 82553; 83036; 83540; 83550; 83605; 83735; 83880; 84100; 84300; 84484; 85025; 85027; 85379; 85610; 85730; 86706; 86850; 86900; 86901; 86920; 87040; 87086; 87340; 90935; 93005; 94640; 94660; 94760; 96374; 99285

== ENCOUNTER 2018-02-25 10:03 | Inpatient (IN) | payer MEDICARE, BC ==
[2018-02-25] MEDS ORDERED: methylPREDNISolone SOD SUCCI 125 MG/2 ML VIAL IV STA (10:26)
[2018-02-25] MEDS ORDERED: ALBUTEROL NEBULIZED 2.5 MG/3 ML INHALATION STA (10:26)
--- NOTE | 2018-02-25 10:28 | ED ---
General Adult HPI - General Stated complaint: diff breathing Time Seen by Provider: 02/25/18 10:08 Source: patient, EMS, RN notes reviewed, old records reviewed - History of Present Illness Initial comments: 72-year-old female with history of COPD, and recent diagnosis of end-stage renal disease requiring hemodialysis presents with chief complaint of dyspnea. Patient was discharged from the hospital approximately one week ago. During that admission she was placed on dialysis, she was treated for pneumonia as well as for COPD. She presents with worsening dyspnea over the past several days. Denies significant cough. Denies chest pain. Denies fever or chills. Denies abdominal pain or nausea vomiting. Denies lower extremity pain or swelling. Patient received hemodialysis yesterday and currently the patient she did receive a full session. - Related Data Home Medications Medication Instructions Recorded Confirmed Sertraline HCl [Zoloft] 50 mg PO HS 04/30/17 02/25/18 Allopurinol [Zyloprim] 100 mg PO DAILY 09/09/17 02/25/18 Albuterol Inhaler [Ventolin Hfa 1 - 2 puff INHALATION RT-Q6H PRN 09/29/17 Inhaler] hydrALAZINE HCL 50 mg PO TID 01/21/18 02/25/18 Budesonide-Formot 160-4.5 Mcg 2 puff INHALATION RT-BID 02/25/18 02/25/18 [Symbicort 160-4.5 Mcg Inhaler] Previous Rx's Medication Instructions Recorded amLODIPine [Norvasc] 10 mg PO DAILY tab 07/16/17 Amiodarone [Cordarone] 100 mg PO DAILY tab 02/06/18 Apixaban [Eliquis] 2.5 mg PO BID #60 tablet 02/06/18 Calcium Acetate [PhosLo] 667 mg PO TID-W/MEALS #90 cap 02/06/18 Furosemide [Lasix] 80 mg PO BID@0900,1600 #60 tab 02/06/18 Metoprolol Tartrate [Lopressor] 50 mg PO BID #60 tab 02/06/18 Allergies Allergy/AdvReac Type Severity Reaction Status Date / Time No Known Allergies Allergy Verified 02/25/18 10:45 Review of Systems ROS Statement: Those systems with pertinent positive or pertinent negative responses have been documented in the HPI. ROS Other: All systems not noted in ROS Statement are negative. Past Medical History Past Medical History: Asthma, CVA/TIA, Hypertension, Osteoarthritis (OA), Pneumonia Additional Past Medical History / Comment(s): cva 2006 no residual problems, irreg heart rate,SOB, chf History of Any Multi-Drug Resistant Organisms: None Reported Past Surgical History: Tonsillectomy Additional Past Surgical History / Comment(s): ORIF rt ankle-[address], IUD removal, lumbar steroid injections, DENTAL IMPLANTS, CARDIOVERSION Past Anesthesia/Blood Transfusion Reactions: No Reported Reaction Additional Past Anesthesia/Blood Transfusion Reaction / Comment(s): past blood transfusions-no reaction Past Psychological History: No Psychological Hx Reported Smoking Status: Former smoker Past Alcohol Use History: None Reported Additional Past Alcohol Use History / Comment(s): Patient smoked one and half packs of cigarettes per day started in 1973 and quit 2014. Patient used to drink heavily-none now Past Drug Use History: None Reported - Past Family History Mother Additional Family Medical History / Comment(s): Mother in her 80s from abdominal aortic aneurysm. Father Family Medical History: Myocardial Infarction (MD) Additional Family Medical History / Comment(s): Father at age 52 from acute MD. Patient has 1 brother that is healthy. General Exam General appearance: alert, in no apparent distress Head exam: Present: atraumatic, normocephalic Eye exam: Present: normal appearance ENT exam: Present: normal exam Neck exam: Present: normal inspection. Absent: tenderness, meningismus Respiratory exam: Present: respiratory distress, wheezes. Absent: rhonchi Cardiovascular Exam: Present: regular rate, normal rhythm GI/Abdominal exam: Present: soft. Absent: distended, tenderness Extremities exam: Present: pedal edema Neurological exam: Present: alert, oriented X3, CN II-XII intact. Absent: motor sensory deficit Psychiatric exam: Present: normal affect, normal mood Skin exam: Present: warm, dry, intact. Absent: cyanosis, diaphoretic Course Vital Signs 02/25/18 02/25/18 02/25/18 10:23 11:11 11:30 Temperature 98.7 F Pulse Rate 98 93 95 Respiratory 18 Rate Blood Pressure 181/84 O2 Sat by Pulse 96 Oximetry EKG Findings - EKG Comments: EKG Findings:: EKG: Normal sinus rhythm, left ventricular hypertrophy, ventricular rate of 98, NJ interval 196, QRS duration 104, QTC 459, no ST segment elevation, there is some ST segment depression in the 4,5 and 6. Medical Decision Making - Medical Decision Making 72-year-old female presenting with dyspnea. Patient does not have any associated symptoms, no fever, no chest pain, no cough. Chest x-ray obtained, consistent with fluid overload and congestive heart failure with central venous congestion, there is opacity in the right upper lung field which may represent pneumonia. Laboratory studies reveal white blood cell count 20.7, hemoglobin is 7.3 which is stable for this patient. Creatinine is 1.27 which is significantly improved. BNP is elevated at 22,000. Electrolytes within normal limits. Given the elevated white blood cell count and concern for pneumonia on x-ray she is given a dose antibiotics in the emergency department. I feel her symptoms are more related to fluid overload than pneumonia. I discussed the case with patient's combatant swimmer who recommends reinitiating Lasix at this time. She is given 60 mg IV in the emergency department and will be given 60 mg every 12 hours. If she does not respond to Lasix, Dr. Vargas, who will arrange for hemodialysis. - Lab Data Result diagrams: 02/25/18 10:22 02/25/18 10:22 Lab Results 02/25/18 02/25/18 02/25/18 Range/Units 10:22 10:22 10:22 WBC 20.7 H (3.8-10.6) k/uL RBC 2.39 L (3.80-5.40) m/uL Hgb 7.3 L (11.4-16.0) gm/dL Hct 23.0 L (34.0-46.0) % MCV 96.5 (80.0-100.0) fL MCH 30.4 (25.0-35.0) pg MCHC 31.5 (31.0-37.0) g/dL RDW 17.7 H (11.5-15.5) % Plt Count 262 (150-450) k/uL Neutrophils % 91 % Lymphocytes % 2 % Monocytes % 5 % Eosinophils % 0 % Basophils % 0 % Neutrophils # 18.9 H (1.3-7.7) k/uL Lymphocytes # 0.5 L (1.0-4.8) k/uL Monocytes # 1.0 (0-1.0) k/uL Eosinophils # 0.1 (0-0.7) k/uL Basophils # 0.0 (0-0.2) k/uL Anisocytosis Slight Macrocytosis Slight PT (9.0-12.0) sec INR (<1.2) APTT (22.0-30.0) sec Sodium 132 L (137-145) mmol/L Potassium 3.3 L (3.5-5.1) mmol/L Chloride 92 L (98-107) mmol/L Carbon Dioxide 30 (22-30) mmol/L Anion Gap 10 mmol/L BUN 14 (7-17) mg/dL Creatinine 1.27 H (0.52-1.04) mg/dL Est GFR (CKD-EPI)AfAm 49 (>60 ml/min/1.73 sqM) Est GFR (CKD-EPI)NonAf 43 (>60 ml/min/1.73 sqM) Glucose 77 (74-99) mg/dL Calcium 8.6 (8.4-10.2) mg/dL Magnesium 1.7 (1.6-2.3) mg/dL Total Bilirubin 0.8 (0.2-1.3) mg/dL AST 18 (14-36) U/L ALT 27 (9-52) U/L Alkaline Phosphatase 83 (38-126) U/L Total Creatine Kinase 22 L (30-135) U/L CK-MB (CK-2) 0.5 (0.0-2.4) ng/mL CK-MB (CK-2) Rel Index 2.3 Troponin I 0.034 (0.000-0.034) ng/mL NT-Pro-B Natriuret Pep pg/mL Total Protein 5.6 L (6.3-8.2) g/dL Albumin 3.0 L (3.5-5.0) g/dL 02/25/18 02/25/18 Range/Units 10:22 10:22 WBC (3.8-10.6) k/uL RBC (3.80-5.40) m/uL Hgb (11.4-16.0) gm/dL Hct (34.0-46.0) % MCV (80.0-100.0) fL MCH (25.0-35.0) pg MCHC (31.0-37.0) g/dL RDW (11.5-15.5) % Plt Count (150-450) k/uL Neutrophils % % Lymphocytes % % Monocytes % % Eosinophils % % Basophils % % Neutrophils # (1.3-7.7) k/uL Lymphocytes # (1.0-4.8) k/uL Monocytes # (0-1.0) k/uL Eosinophils # (0-0.7) k/uL Basophils # (0-0.2) k/uL Anisocytosis Macrocytosis PT 10.7 (9.0-12.0) sec INR 1.1 (<1.2) APTT 31.4 H (22.0-30.0) sec Sodium (137-145) mmol/L Potassium (3.5-5.1) mmol/L Chloride (98-107) mmol/L Carbon Dioxide (22-30) mmol/L Anion Gap mmol/L BUN (7-17) mg/dL Creatinine (0.52-1.04) mg/dL Est GFR (CKD-EPI)AfAm (>60 ml/min/1.73 sqM) Est GFR (CKD-EPI)NonAf (>60 ml/min/1.73 sqM) Glucose (74-99) mg/dL Calcium (8.4-10.2) mg/dL Magnesium (1.6-2.3) mg/dL Total Bilirubin (0.2-1.3) mg/dL AST (14-36) U/L ALT (9-52) U/L Alkaline Phosphatase (38-126) U/L Total Creatine Kinase (30-135) U/L CK-MB (CK-2) (0.0-2.4) ng/mL CK-MB (CK-2) Rel Index Troponin I (0.000-0.034) ng/mL NT-Pro-B Natriuret Pep 96834 pg/mL Total Protein (6.3-8.2) g/dL Albumin (3.5-5.0) g/dL Disposition Clinical Impression: CHF (congestive heart failure), Pneumonia, Fluid overload Disposition: ADMITTED IP TO THIS HOSP Condition: Stable Is patient prescribed a controlled substance at d/c from ED?: No Referrals: Soren Desai MD [Primary Care Provider] - 1-2 days Decision to Admit Reason: Admit from EC Decision Date: 02/25/18 Decision Time: 13:31
[2018-02-25 10:59] LABS: Anisocytosis Slight; Basophils % (A) 0 %; Eosinophils # (A) 0.1 k/uL (0-0.7); Eosinophils % (A) 0 %; HGB 7.3 gm/dL (11.4-16.0); Lymphocytes # (A) 0.5 k/uL (1.0-4.8); Lymphocytes % (A) 2 %; MCH 30.4 pg (25.0-35.0); MCHC 31.5 g/dL (31.0-37.0); MCV 96.5 fL (80.0-100.0); Macrocytosis Slight; Mean Platelet Volume 6.6; Monocytes % (A) 5 %; Neutrophils # (A) 18.9 k/uL (1.3-7.7); Neutrophils % (A) 91 %; Platelet Count 262 k/uL (150-450); RBC 2.39 m/uL (3.80-5.40); RDW 17.7 % (11.5-15.5); WBC 20.7 k/uL (3.8-10.6)
[2018-02-25 11:05] LABS: Calcium 8.6 mg/dL (8.4-10.2); INR 1.1 (<1.2); Magnesium 1.7 mg/dL (1.6-2.3); Partial Thromboplastin Time 31.4 sec (22.0-30.0); Potassium 3.3 mmol/L (3.5-5.1); Prothrombin Time 10.7 sec (9.0-12.0); Total Bilirubin 0.8 mg/dL (0.2-1.3); Total Protein 5.6 g/dL (6.3-8.2)
--- NOTE | 2018-02-25 11:17 | XR ---
EXAMINATION TYPE: XR chest 2V DATE OF EXAM: 02/25/2018 COMPARISON: Prior chest x-ray February 16, [address] chest May 28, 2017 HISTORY: Difficulty in breathing. TECHNIQUE: Frontal and lateral views of the chest are obtained. FINDINGS: There is stable appearing right internal jugular dialysis catheter. Cardiac silhouette size is stable and enlarged. There is background chronic emphysematous change with new central vascular c ongestion. There is more prominent right upper lobe masslike consolidation. There is recurrent small right greater than left pleural effusions. The osseous structures remain demineralized. IMPRESSION: Correlate for CHF exacerbation as there is cardiomegaly with small right greater than le ft pleural effusions and new central vascular congestion. In addition there is more prominent masslik e consolidation or acute infiltrate right upper lobe.
[2018-02-25 11:32] LABS: Creatine Kinase MB 0.5 ng/mL (0.0-2.4); Troponin I 0.034 ng/mL (0.000-0.034)
[2018-02-25] MEDS ORDERED: LEVOFLOXACIN 500MG-D5W PMX 500 MG in DEXTROSE/WATER 1 100ML.BAG IVPB STA (12:33)
[2018-02-25] MEDS ORDERED: POTASSIUM CHLORIDE ER 20 MEQ TAB.ER PO STA (13:02)
[2018-02-25] MEDS ORDERED: NALOXONE 0.4 MG/ML 1 ML VIAL IV PRN (13:27)
[2018-02-25] MEDS: FUROSEMIDE 10 MG/ML 10 ML VIAL IV STA (13:56)
--- NOTE | 2018-02-25 15:06 | P.HPIM ---
History of Present Illness 80-year-old female doesn't make much urine in with comments of shortness of breath found to have pulmonary edema on the chest x-ray. Patient was recently treated for COPD right upper lobe pneumonia is the end was initiated on hemodialysis. Patient the hemodialysis sessions or Thursday and Thursday. Patient doesn't make much urine. Patient was given Lasix nephrology was consulted patient may need additional hemodialysis sessions patient denied any orthopnea paroxysmal nocturnal dyspnea patient denied any fever chills, does have cough unable to bring up much. Patient chest x-ray did show pulmonary edema along with the an infiltrate in the right upper lobe which is a modestly consolidation which was present during her previous hospital physician actually better now. Patient denied any abdominal pain nausea vomiting. Review of Systems REVIEW OF SYSTEMS: CONSTITUTIONAL: No fever, no malaise, no fatigue. HEENT: No recent visual problems or hearing problems. Denied any sore throat. CARDIOVASCULAR: No chest pain, orthopnea, PND, no palpitations, no syncope. PULMONARY:no hemoptysis. GASTROINTESTINAL: No diarrhea, no nausea, no vomiting, no abdominal pain. Normoactive bowel sounds. NEUROLOGICAL: No headaches, no weakness, no numbness. HEMATOLOGICAL: Denies any bleeding or petechiae. GENITOURINARY: Denies any burning micturition, frequency, or urgency. MUSCULOSKELETAL/RHEUMATOLOGICAL: Denies any joint pain, swelling, or any muscle pain. ENDOCRINE: Denies any polyuria or polydipsia. The rest of the 14-point review of systems is negative. Past Medical History Past Medical History: Asthma, CVA/TIA, Hypertension, Osteoarthritis (OA), Pneumonia Additional Past Medical History / Comment(s): cva 2006 no residual problems, irreg heart rate,SOB, chf History of Any Multi-Drug Resistant Organisms: None Reported Past Surgical History: Tonsillectomy Additional Past Surgical History / Comment(s): ORIF rt ankle-[address], IUD removal, lumbar steroid injections, DENTAL IMPLANTS, CARDIOVERSION Past Anesthesia/Blood Transfusion Reactions: No Reported Reaction Additional Past Anesthesia/Blood Transfusion Reaction / Comment(s): past blood transfusions-no reaction Past Psychological History: No Psychological Hx Reported Smoking Status: Former smoker Past Alcohol Use History: None Reported Additional Past Alcohol Use History / Comment(s): Patient smoked one and half packs of cigarettes per day started in 1973 and quit 2014. Patient used to drink heavily-none now Past Drug Use History: None Reported - Past Family History Mother Additional Family Medical History / Comment(s): Mother in her 80s from abdominal aortic aneurysm. Father Family Medical History: Myocardial Infarction (PA) Additional Family Medical History / Comment(s): Father at age 52 from acute PA. Patient has 1 brother that is healthy. Medications and Allergies Home Medications Medication Instructions Recorded Confirmed Type Sertraline HCl [Zoloft] 50 mg PO HS 04/30/17 02/25/18 History amLODIPine [Norvasc] 10 mg PO DAILY tab 07/16/17 02/25/18 Rx Allopurinol [Zyloprim] 100 mg PO DAILY 09/09/17 02/25/18 History Albuterol Inhaler [Ventolin Hfa 1 - 2 puff INHALATION RT-Q6H PRN 09/29/17 History Inhaler] hydrALAZINE HCL 50 mg PO TID 01/21/18 02/25/18 History Amiodarone [Cordarone] 100 mg PO DAILY tab 02/06/18 02/25/18 Rx Apixaban [Eliquis] 2.5 mg PO BID #60 tablet 02/06/18 02/25/18 Rx Calcium Acetate [PhosLo] 667 mg PO TID-W/MEALS #90 cap 02/06/18 02/25/18 Rx Furosemide [Lasix] 80 mg PO BID@0900,1600 #60 tab 02/06/18 02/25/18 Rx Metoprolol Tartrate [Lopressor] 50 mg PO BID #60 tab 02/06/18 02/25/18 Rx Budesonide-Formot 160-4.5 Mcg 2 puff INHALATION RT-BID 02/25/18 02/25/18 History [Symbicort 160-4.5 Mcg Inhaler] Allergies Allergy/AdvReac Type Severity Reaction Status Date / Time No Known Allergies Allergy Verified 02/25/18 10:45 Physical Exam Vitals: Vital Signs Temp Pulse Resp BP Pulse Ox 02/25/18 14:00 98.0 F 97 18 152/80 97 02/25/18 11:30 95 02/25/18 11:11 93 02/25/18 10:23 98.7 F 98 18 181/84 96 Intake and Output 02/25/18 02/25/18 02/25/18 06:59 14:59 22:59 Other: Weight 57.606 kg PHYSICAL EXAMINATION: GENERAL: The patient is alert and oriented x3, not in any acute distress. Well developed, well nourished. HEENT: Pupils are round and equally reacting to light. EOMI. No scleral icterus. No conjunctival pallor. Normocephalic, atraumatic. No pharyngeal erythema. No thyromegaly. CARDIOVASCULAR: S1 and S2 present. No murmurs, rubs, or gallops. PULMONARY: Chest is clear to auscultation, no wheezing or crackles. ABDOMEN: Soft, nontender, nondistended, normoactive bowel sounds. No palpable organomegaly. MUSCULOSKELETAL: No joint swelling or deformity. EXTREMITIES: No cyanosis, clubbing, or pedal edema. NEUROLOGICAL: Gross neurological examination did not reveal any focal deficits. SKIN: No rashes. Results CBC & Chem 7: 02/25/18 10:22 02/25/18 10:22 Labs: Abnormal Lab Results - Last 24 Hours (Table) 02/25/18 02/25/18 02/25/18 Range/Units 10:22 10:22 10:22 WBC 20.7 H (3.8-10.6) k/uL RBC 2.39 L (3.80-5.40) m/uL Hgb 7.3 L (11.4-16.0) gm/dL Hct 23.0 L (34.0-46.0) % RDW 17.7 H (11.5-15.5) % Neutrophils # 18.9 H (1.3-7.7) k/uL Lymphocytes # 0.5 L (1.0-4.8) k/uL APTT (22.0-30.0) sec Sodium 132 L (137-145) mmol/L Potassium 3.3 L (3.5-5.1) mmol/L Chloride 92 L (98-107) mmol/L Creatinine 1.27 H (0.52-1.04) mg/dL Total Creatine Kinase 22 L (30-135) U/L Total Protein 5.6 L (6.3-8.2) g/dL Albumin 3.0 L (3.5-5.0) g/dL 02/25/18 Range/Units 10:22 WBC (3.8-10.6) k/uL RBC (3.80-5.40) m/uL Hgb (11.4-16.0) gm/dL Hct (34.0-46.0) % RDW (11.5-15.5) % Neutrophils # (1.3-7.7) k/uL Lymphocytes # (1.0-4.8) k/uL APTT 31.4 H (22.0-30.0) sec Sodium (137-145) mmol/L Potassium (3.5-5.1) mmol/L Chloride (98-107) mmol/L Creatinine (0.52-1.04) mg/dL Total Creatine Kinase (30-135) U/L Total Protein (6.3-8.2) g/dL Albumin (3.5-5.0) g/dL Assessment and Plan Plan: Acute hypoxic respiratory failure secondary to acute CHF exacerbation, diastolic dysfunction, patient does have pulmonary edema, will need hemodialysis to remove additional fluid. Leukocytosis reactive etiology is not clear we'll repeat the white blood cell count tomorrow. Patient right midlung and right upper lung tumor-like consolidation was present during her last hospitalization as well which is actually better now -Right midlung pseudotumor -History of Atrial fibrillation, currently sinus rhythm -Hypertension -hyperlipidemia -Acute on Chronic kidney disease, stage III , acute secondary to to ATN related to Cardiorenal syndrome, now on hemodialysis. -Hyperlipidemia -Rheumatoid arthritis -Anemia of chronic kidney disease -Hyponatremia improved improved
[2018-02-25] MEDS: CALCIUM ACETATE 667 MG CAP PO SCH (17:52)
[2018-02-25] MEDS: hydrALAZINE HCL 50 MG TAB PO SCH ×2 (17:52→20:15)
[2018-02-25] MEDS: ALBUTEROL NEBULIZED 2.5 MG/3 ML INHALATION PRN (19:58)
[2018-02-25] MEDS: SYMBICORT 160-4.5 MCG INHALER INHALATION SCH (19:58)
[2018-02-25] MEDS: FUROSEMIDE 10 MG/ML 10 ML VIAL IV SCH (20:14)
[2018-02-25] MEDS: APIXABAN 2.5 MG TABLET PO SCH (20:14)
[2018-02-25] MEDS: METOPROLOL TARTRATE 50 MG TAB PO SCH (20:15)
[2018-02-25] MEDS: MELATONIN 5 MG TABLET PO SCH (20:15)
[2018-02-25] MEDS: SERTRALINE 50 MG TAB PO SCH (20:15)
[2018-02-26 07:09] LABS: Anisocytosis Slight; Basophils % (A) 0 %; Eosinophils % (A) 0 %; HGB 7.2 gm/dL (11.4-16.0); Hypochromasia Slight; Lymphocytes # (A) 0.3 k/uL (1.0-4.8); Lymphocytes % (A) 2 %; MCH 30.5 pg (25.0-35.0); MCHC 31.2 g/dL (31.0-37.0); MCV 97.6 fL (80.0-100.0); Macrocytosis Slight; Mean Platelet Volume 6.7; Monocytes # (A) 0.5 k/uL (0-1.0); Monocytes % (A) 3 %; Neutrophils % (A) 94 %; Platelet Count 250 k/uL (150-450); RBC 2.35 m/uL (3.80-5.40); RDW 17.6 % (11.5-15.5)
[2018-02-26 07:25] LABS: Albumin 2.9 g/dL (3.5-5.0); Calcium 8.3 mg/dL (8.4-10.2); Magnesium 1.7 mg/dL (1.6-2.3); Phosphorus 2.6 mg/dL (2.5-4.5); Potassium 4.2 mmol/L (3.5-5.1); Total Bilirubin 0.6 mg/dL (0.2-1.3); Total Protein 5.5 g/dL (6.3-8.2)
[2018-02-26] MEDS: FUROSEMIDE 10 MG/ML 10 ML VIAL IV SCH (09:10)
[2018-02-26] MEDS: AMIODARONE 100 MG TAB PO SCH (09:10)
[2018-02-26] MEDS: CALCIUM ACETATE 667 MG CAP PO SCH (09:10)
[2018-02-26] MEDS: amLODIPine 10 MG TAB PO SCH (09:10)
[2018-02-26] MEDS: APIXABAN 2.5 MG TABLET PO SCH ×2 (09:10→19:36)
[2018-02-26] MEDS: ALLOPURINOL 100 MG TAB PO SCH (09:10)
[2018-02-26] MEDS: METOPROLOL TARTRATE 50 MG TAB PO SCH ×2 (09:11→19:36)
[2018-02-26] MEDS: hydrALAZINE HCL 50 MG TAB PO SCH ×3 (09:11→21:28)
[2018-02-26] MEDS: SYMBICORT 160-4.5 MCG INHALER INHALATION SCH ×2 (09:47→18:48)
--- NOTE | 2018-02-26 14:50 | P.PN ---
Subjective 80-year-old female came in with pulmonary edema which improved significantly with Lasix patient is a 8 urinating now with the Lasix. Patient is dialysis dependent nephrology valid the patient patient undergoing dialysis today patient is feeling much better today much less short of breath off oxygen. Constitutional: Denied any fatigue denied any fever. Cardio vascular: denied any chest pain, palpitations Gastrointestinal denied any nausea vomiting Pulmonary: Denied any shortness of breath cough Neurologic denied any new focal deficits Objective - Vital Signs Vital signs: Vital Signs Temp 97.8 F 02/26/18 08:00 Pulse 72 02/26/18 12:00 Resp 20 02/26/18 04:00 BP 158/75 02/26/18 12:00 Pulse Ox 92 L 02/26/18 12:00 Intake & Output 02/25/18 02/26/18 02/26/18 18:59 06:59 18:59 Intake Total 240 180 Output Total 1 100 Balance 240 -1 80 Weight 57.606 kg 57.3 kg Intake: Oral 240 180 Output: Urine 100 Urine/Stool Mix 1 Other: Voiding Method Toilet Toilet # Voids 1 2 - Exam PHYSICAL EXAMINATION: GENERAL: The patient is alert and oriented x3, not in any acute distress. Well developed, well nourished. HEENT: Pupils are round and equally reacting to light. EOMI. No scleral icterus. No conjunctival pallor. Normocephalic, atraumatic. No pharyngeal erythema. No thyromegaly. CARDIOVASCULAR: S1 and S2 present. No murmurs, rubs, or gallops. PULMONARY: Chest is clear to auscultation, no wheezing or crackles. ABDOMEN: Soft, nontender, nondistended, normoactive bowel sounds. No palpable organomegaly. MUSCULOSKELETAL: No joint swelling or deformity. EXTREMITIES: No cyanosis, clubbing, or pedal edema. NEUROLOGICAL: Gross neurological examination did not reveal any focal deficits. SKIN: No rashes. - Labs CBC & Chem 7: 02/26/18 06:46 02/26/18 06:46 Labs: Abnormal Lab Results - Last 24 Hours (Table) 02/26/18 02/26/18 Range/Units 06:46 06:46 WBC 17.0 H (3.8-10.6) k/uL RBC 2.35 L (3.80-5.40) m/uL Hgb 7.2 L (11.4-16.0) gm/dL Hct 23.0 L (34.0-46.0) % RDW 17.6 H (11.5-15.5) % Neutrophils # 16.0 H (1.3-7.7) k/uL Lymphocytes # 0.3 L (1.0-4.8) k/uL Sodium 132 L (137-145) mmol/L Chloride 93 L (98-107) mmol/L BUN 32 H (7-17) mg/dL Creatinine 2.00 H (0.52-1.04) mg/dL Glucose 106 H (74-99) mg/dL Calcium 8.3 L (8.4-10.2) mg/dL Total Protein 5.5 L (6.3-8.2) g/dL Albumin 2.9 L (3.5-5.0) g/dL Microbiology - Last 24 Hours (Table) 02/25/18 10:22 Blood Culture - Preliminary Blood No Growth after 24 hours Assessment and Plan Plan: Acute hypoxic respiratory failure secondary to acute CHF exacerbation, diastolic dysfunction, patient does have pulmonary edema, will will undergo dialysis today can you with Lasix Leukocytosis reactive etiology is not clear repeat white blood cell count showed decrease in the white blood cell count although still 17,000 no signs or symptoms of infection at this time. Patient has neutropenic leukocytosis -Right midlung pseudotumor -History of Atrial fibrillation, currently sinus rhythm -Hypertension -hyperlipidemia -Acute on Chronic kidney disease, stage III , acute secondary to to ATN related to Cardiorenal syndrome, now on hemodialysis. -Hyperlipidemia -Rheumatoid arthritis -Anemia of chronic kidney disease -Hyponatremia improved improved
--- NOTE | 2018-02-26 15:02 | XR ---
EXAMINATION TYPE: XR chest 1V DATE OF EXAM: 02/26/2018 COMPARISON: 02/25/2018 INDICATION: CHF TECHNIQUE: Single frontal view of the chest is obtained. FINDINGS: The heart size is normal. The pulmonary vasculature is normal. There is an infiltrate in the right upper lung field. This is improving from comparison. There is a right-sided port with the tips in the superior vena cava region. IMPRESSION: 1. Improving right upper lobe infiltrate.
--- NOTE | 2018-02-26 16:03 | CONS ---
CONSULTATION REASON FOR CONSULT: Renal failure. HISTORY OF PRESENT ILLNESS: Patient is a 72-year-old female who was recently started on dialysis on her last admission for acute kidney injury and diastolic heart failure. As outpatient, patient has been tolerating her dialysis treatments well. Her serum creatinine has come down around 2.5, and we tried to take her off of dialysis; however, she had a weight gain and her serum creatinine went up to above 3. Therefore this week patient was dialyzed again on Thursday. She was admitted last night with complaints of shortness of breath. Patient denied any chest pain. Her chest x-ray showed evidence of pulmonary vascular congestion. The patient states she is making a lot of urine; however, her urine output is not charted. She was started on IV Lasix last night. Patient states she feels about the same, maybe slightly better. She does have a right IJ PermCath. PAST MEDICAL HISTORY: 1. Acute kidney injury, recent admission, started on hemodialysis about 3 weeks ago. 2. The patient also has diastolic heart failure. 3. History of CVA/TIA. 4. Osteoarthritis. 5. History of pneumonia. PAST SURGICAL HISTORY: 1. ORIF right ankle. 2. IUD removal. 3. Dental implants. 4. Cardioversion. 5. Tonsillectomy. SOCIAL HISTORY: Patient is a former smoker. No history of drug abuse or alcohol abuse. MEDICATIONS: Medications at home included: 1. Zoloft. 2. Norvasc. 3. Zyloprim. 4. Cordarone. 5. Eliquis. 6. PhosLo. 7. Lopressor. 8. Lasix. 9. Symbicort. ALLERGIES: NONE. REVIEW OF SYSTEMS: As per HPI. Other systems negative. PHYSICAL EXAMINATION: Patient is comfortable, awake, alert, oriented x3. She is not in any acute distress. Blood pressure this morning 140/77, heart rate 80 per minute. She is afebrile. EXAMINATION OF THE HEART: S1, S2. EXAMINATION OF LUNGS: Bilateral breath sounds are heard. Crackles are heard at the bases. ABDOMEN: Soft, non-tender. Examination of lower extremities shows no significant edema. LABS: Sodium 132, potassium 4.2, chloride 93, BUN 32, serum creatinine 2.0 today, hemoglobin 7.4 g/dL. ASSESSMENT: 1. Acute kidney injury, currently hemodialysis-dependent, from last admission about 4 weeks ago. Patient has been on dialysis as outpatient. Her serum creatinine has improved. However, she remains dialysis-dependent. As outpatient she had dropped down to around 2.5, but serum creatinine increased when the dialysis was held, and therefore she was restarted on renal replacement therapy this week. At this time I will hold off on dialysis and continue with IV push Lasix. We will reassess this afternoon. If volume status is not improved, we will dialyze the patient. She states she is making more urine and she is eager to come off of dialysis. 2. Diastolic heart failure. Ejection fraction on echocardiogram done in July showed preserved LV function. 3. History of pseudotumor which was mainly fluid. This was noted on chest x-ray on her last admission. 4. Chronic kidney disease with baseline creatinine about 1.2 mg/dL most of 2018. We do have a creatinine of 0.9 in April of 2017. The etiology is nephrosclerosis. 5. Hypokalemia, status post replacement. 6. Anemia. Rule out GI bleed. Check iron studies. Check stool for occult blood. PLAN: Continue IV push Lasix. Will reassess volume status later on today and decide regarding dialysis. I will try to hold off on dialysis and allow patient to diurese on her own, given her improved serum creatinine. We will check stool for occult blood. Check iron studies. I will start her on Aranesp as well. She may be able to come off of the PhosLo. I will hold it for now, as serum phosphorus was 2.6. Thank you for this consultation. We will continue to follow the patient with you during her hospitalization. MMODL / IJN: [id number] /
[2018-02-26] MEDS ORDERED: FUROSEMIDE 10 MG/ML 10 ML VIAL IV STA (17:32)
[2018-02-26] MEDS: FUROSEMIDE 10 MG/ML 10 ML VIAL IV STA (17:34)
[2018-02-26] MEDS: ALBUTEROL NEBULIZED 2.5 MG/3 ML INHALATION PRN (18:48)
[2018-02-26] MEDS: SERTRALINE 50 MG TAB PO SCH (19:37)
[2018-02-26] MEDS: MELATONIN 5 MG TABLET PO SCH (21:28)
[2018-02-26] MEDS: ALPRAZolam 0.25 MG TAB PO PRN (21:28)
[2018-02-26] MEDS: FUROSEMIDE 10 MG/ML 4 ML VIAL IV SCH (22:56)
[2018-02-27 06:14] LABS: Anisocytosis Slight; HCT 22.5 % (34.0-46.0); HGB 7.1 gm/dL (11.4-16.0); MCH 30.4 pg (25.0-35.0); MCHC 31.6 g/dL (31.0-37.0); MCV 96.3 fL (80.0-100.0); Macrocytosis Slight; Mean Platelet Volume 7.4; Platelet Count 249 k/uL (150-450); RBC 2.34 m/uL (3.80-5.40); RDW 17.9 % (11.5-15.5); WBC 23.4 k/uL (3.8-10.6)
[2018-02-27 06:30] LABS: Calcium 8.5 mg/dL (8.4-10.2); Potassium 3.6 mmol/L (3.5-5.1)
[2018-02-27] MEDS: SYMBICORT 160-4.5 MCG INHALER INHALATION SCH ×2 (08:44→19:29)
[2018-02-27] MEDS: ALBUTEROL NEBULIZED 2.5 MG/3 ML INHALATION PRN ×2 (08:45→19:29)
[2018-02-27] MEDS: METOPROLOL TARTRATE 50 MG TAB PO SCH ×2 (09:44→20:37)
[2018-02-27] MEDS: APIXABAN 2.5 MG TABLET PO SCH ×2 (09:44→20:37)
[2018-02-27] MEDS: amLODIPine 10 MG TAB PO SCH (09:44)
[2018-02-27] MEDS: AMIODARONE 100 MG TAB PO SCH (09:44)
[2018-02-27] MEDS: ALLOPURINOL 100 MG TAB PO SCH (09:44)
[2018-02-27] MEDS: hydrALAZINE HCL 50 MG TAB PO SCH ×3 (09:44→22:05)
[2018-02-27] MEDS: FUROSEMIDE 10 MG/ML 4 ML VIAL IV SCH ×3 (09:44→23:51)
--- NOTE | 2018-02-27 11:57 | XR ---
EXAMINATION TYPE: XR chest 1V portable DATE OF EXAM: 02/27/2018 HISTORY: CHF/elevated WBC. REFERENCE: Previous study dated 02/26/2018. FINDINGS: There is a large-bore, double-lumen catheter in place. Its tip is at the cavoatrial junctio n. The lungs are overinflated. The heart is mildly enlarged. There is airspace opacity in the right uppe r lobe which has worsened from previous. There are increased interstitial markings and mild vascular congestion. IMPRESSION: 1. COPD. 2. WORSENING CHANGES OF CONGESTIVE HEART FAILURE.
--- NOTE | 2018-02-27 12:42 | P.PN ---
Subjective Progress Note Date: 02/27/18 Principal diagnosis: This is a 72-year-old female seen in consultation because of hemodialysis dependent acute kidney injury. She was started on dialysis about a week ago when she had acute kidney injury there was an attempt to taper off but she failed attempt and came in because of shortness of breath. She might have had at most 3 dialysis as an outpatient. This morning she complains of shortness of breath she is on O2 by cannula. She is also complaining of difficulty walking because of generalized weakness. She has a good appetite no nausea vomiting abdominal pain no diarrhea. Her urine output is minimal she says. She is known with previous CVA in 2005 without any rest or problem. Otherwise no significant risk factor for ESRD Objective - Vital Signs Vital signs: Vital Signs Temp 96.6 F L 02/27/18 09:40 Pulse 64 02/27/18 12:10 Resp 16 02/27/18 12:10 BP 146/71 02/27/18 12:10 Pulse Ox 95 02/27/18 12:10 Intake & Output 02/26/18 02/27/18 02/27/18 18:59 06:59 18:59 Intake Total 660 Output Total 100 175 Balance 560 -175 Weight 58 kg Intake: Oral 660 Output: Urine 100 175 Other: Voiding Method Toilet Toilet # Voids 1 On examination she is somewhat anxious otherwise comfortable. She is on nasal cannula oxygen. HEENT exam no JVP neck is supple no facial asymmetry Lungs are significant for an occasional coarse crackle good air entry bilaterally Heart sounds are unremarkable for any murmur rub gallop Abdomen soft nontender no masses felt Extremity exam was trace edema Neurologically awake alert oriented. - Labs CBC & Chem 7: 02/27/18 05:55 02/27/18 05:55 Labs: Abnormal Lab Results - Last 24 Hours (Table) 02/27/18 02/27/18 Range/Units 05:55 05:55 WBC 23.4 H (3.8-10.6) k/uL RBC 2.34 L (3.80-5.40) m/uL Hgb 7.1 L (11.4-16.0) gm/dL Hct 22.5 L (34.0-46.0) % RDW 17.9 H (11.5-15.5) % Sodium 130 L (137-145) mmol/L Chloride 91 L (98-107) mmol/L BUN 51 H (7-17) mg/dL Creatinine 3.00 H (0.52-1.04) mg/dL Microbiology - Last 24 Hours (Table) 02/25/18 10:22 Blood Culture - Preliminary Blood No Growth after 24 hours Assessment and Plan Assessment: Impression 1. ATN with oliguria requiring resumption of dialysis. She was started on dialysis supposedly a week ago approximately, when she was admitted with pneumonia and an attempted discontinuation resulted in shortness of breath. She is oliguric. She was in CHF. 2. Chronic kidney disease with creatinine over the last 1 year 1.2 on 2017 to the highest of being 5.4 on 01/26/2018. 3. Anemia with hemoglobin 7.1. 4. Leukocytosis white count went up to 23,400 from 17,000. 5. Mild hyponatremia secondary to chronic kidney disease acute kidney injury. Recommendation 1. Proceed with dialysis today. We will do a 3.5 hour treatment, ultrafiltrate 2.5 L, as she has likely is congestive heart failure 2. Check iron saturation. 3. Maintain her on E Perry 4000 units. 4. Hyponatremia is expected to improve with dialysis.
[2018-02-27 13:00] VITALS: BMI 21.2
--- NOTE | 2018-02-27 15:07 | P.PN ---
Subjective 80-year-old female came in with pulmonary edema which improved significantly with Lasix patient is a 8 urinating now with the Lasix. Patient is dialysis dependent nephrology valid the patient patient undergoing dialysis today patient is feeling much better today much less short of breath off oxygen. 02/27/2018 As patient is urinating well the plan from nephrology is to hold off on dialysis leave her on Lasix but the her creatinine started worsening her urine output has dropped down because of which patient will be knee she did on hemodialysis again. Patient does have significant leukocytosis which is neutropenic leukocytosis a can't really explain her leukocytosis because of which will get opinion of infectious disease. Blood cultures were obtained from ER which was so far negative Constitutional: Denied any fatigue denied any fever. Cardio vascular: denied any chest pain, palpitations Gastrointestinal denied any nausea vomiting Pulmonary: Denied any shortness of breath cough Neurologic denied any new focal deficits Objective - Vital Signs Vital signs: Vital Signs Temp 96.6 F L 02/27/18 09:40 Pulse 70 02/27/18 12:50 Resp 16 02/27/18 12:50 BP 132/61 02/27/18 12:50 Pulse Ox 94 L 02/27/18 12:50 Intake & Output 02/26/18 02/27/18 02/27/18 18:59 06:59 18:59 Intake Total 660 Output Total 100 175 Balance 560 -175 Weight 58 kg 58 kg Intake: Oral 660 Output: Urine 100 175 Other: Voiding Method Toilet Toilet Toilet # Voids 1 - Exam PHYSICAL EXAMINATION: GENERAL: The patient is alert and oriented x3, not in any acute distress. Well developed, well nourished. HEENT: Pupils are round and equally reacting to light. EOMI. No scleral icterus. No conjunctival pallor. Normocephalic, atraumatic. No pharyngeal erythema. No thyromegaly. CARDIOVASCULAR: S1 and S2 present. No murmurs, rubs, or gallops. PULMONARY: Chest is clear to auscultation, no wheezing or crackles. ABDOMEN: Soft, nontender, nondistended, normoactive bowel sounds. No palpable organomegaly. MUSCULOSKELETAL: No joint swelling or deformity. EXTREMITIES: No cyanosis, clubbing, or pedal edema. NEUROLOGICAL: Gross neurological examination did not reveal any focal deficits. SKIN: No rashes. - Labs CBC & Chem 7: 10/13/18 05:55 02/27/18 05:55 Labs: Abnormal Lab Results - Last 24 Hours (Table) 02/27/18 02/27/18 Range/Units 05:55 05:55 WBC 23.4 H (3.8-10.6) k/uL RBC 2.34 L (3.80-5.40) m/uL Hgb 7.1 L (11.4-16.0) gm/dL Hct 22.5 L (34.0-46.0) % RDW 17.9 H (11.5-15.5) % Sodium 130 L (137-145) mmol/L Chloride 91 L (98-107) mmol/L BUN 51 H (7-17) mg/dL Creatinine 3.00 H (0.52-1.04) mg/dL Microbiology - Last 24 Hours (Table) 02/25/18 10:22 Blood Culture - Preliminary Blood No Growth after 48 hours Assessment and Plan Plan: Acute hypoxic respiratory failure secondary to acute CHF exacerbation, diastolic dysfunction, patient does have pulmonary edema, will undergo dialysis today can you with Lasix Leukocytosis reactive etiology is not clear , counseling infectious disease -Right midlung pseudotumor -History of Atrial fibrillation, currently sinus rhythm -Hypertension -hyperlipidemia -Acute on Chronic kidney disease, stage III , acute secondary to to ATN related to Cardiorenal syndrome, now on hemodialysis. -Hyperlipidemia -Rheumatoid arthritis -Anemia of chronic kidney disease -Hyponatremia improved improved
[2018-02-27 17:19] LABS: Iron Saturation 23.91 (12.00-45.00)
[2018-02-27] MEDS: ACETAMINOPHEN TAB 325 MG TAB PO PRN (18:06)
[2018-02-27] MEDS: ALPRAZolam 0.25 MG TAB PO PRN (18:06)
--- NOTE | 2018-02-27 19:30 | XR ---
EXAMINATION TYPE: XR Hip Complete LT DATE OF EXAM: 02/27/2018 CLINICAL HISTORY: Fall injury with pain. TECHNIQUE: AP and frogleg views of the left hip are obtained. COMPARISON: None. FINDINGS: Demineralization is present. There is no acute fracture/dislocation evident in the left hi p. The joint space in the left hip appears within normal limits. Overlying vascular calcification is seen. IMPRESSION: There is no acute fracture or dislocation in the left hip.
--- NOTE | 2018-02-27 19:32 | XR ---
EXAMINATION TYPE: XR knee complete LT DATE OF EXAM: 02/27/2018 CLINICAL HISTORY: Fall injury with pain. TECHNIQUE: Three views of the left knee are obtained. COMPARISON: None. FINDINGS: Demineralization is present. There is no acute fracture/dislocation evident in left knee. The tri-compartment joint spaces appear within normal limits. Posterior vascular calcification is se en. Increased density suprapatellar bursa is suspicious for moderate-sized joint effusion, nonspecifi c finding. IMPRESSION: There is no acute fracture or dislocation in the left knee.
[2018-02-27] MEDS: SERTRALINE 50 MG TAB PO SCH (20:37)
[2018-02-27] MEDS: MELATONIN 5 MG TABLET PO SCH (22:05)
[2018-02-27 23:32] LABS: Hepatitis B Surface AB- Quant 3.5 mIU/mL
[2018-02-28 01:38] LABS: Appearance,Urine Cloudy (Clear); Bilirubin,Urine Negative (Negative); Blood,Urine Negative (Negative); Color,Urine Yellow; Glucose,Urine (UA) Negative (Negative); Hyaline Casts,Urine 1 /lpf (0-2); Ketones,Urine Negative (Negative); Leukocyte Esterase,Urine Large (Negative); Nitrite,Urine Negative (Negative); Protein,Urine Negative (Negative); RBC,Urine 3 /hpf (0-5); Specific Gravity,Urine 1.008 (1.001-1.035); Squamous Epithelial Cell,Urine 9 /hpf (0-4); Urobilinogen,Urine <2.0 mg/dL (<2.0)
[2018-02-28 05:52] LABS: Calcium 7.9 mg/dL (8.4-10.2); Potassium 3.1 mmol/L (3.5-5.1)
[2018-02-28] MEDS: SYMBICORT 160-4.5 MCG INHALER INHALATION SCH ×2 (07:21→20:04)
[2018-02-28] MEDS: ALBUTEROL NEBULIZED 2.5 MG/3 ML INHALATION PRN ×4 (07:21→20:04)
--- NOTE | 2018-02-28 08:56 | CONS ---
CONSULTATION DATE OF SERVICE: 02/27/2018. REASON FOR CONSULTATION: Leukocytosis. HISTORY OF PRESENT ILLNESS: The patient is a 72-year-old female who recently has been diagnosed with renal failure requiring hemodialysis for which the patient did have a right IJ Perma catheter placement on her last admission. The patient has been brought to the ER at [facility] on 02/25/2018 for the chief complaint of increasing shortness of breath, that seems to have been getting worse for the last few days. The patient has very minimal cough, but not bringing up any sputum. The patient denies having any URI symptoms. The patient denies any difficulty swallowing. No chest pain. No abdominal pain. No nausea, no vomiting and no diarrhea. With these symptoms, the patient has been evaluated by the ER physician. On arrival to the ER, the patient has been afebrile. The highest temperature has been 98.7. No significant tachycardia. She did have slight tachycardia on admission though. No hypertension was noticed and [place] [address]. Repeat yesterday was 17 today up to 23,000 that prompted this infectious disease consultation. Patient did have a further workup including a chest x-ray which shows correlate for CHF exacerbation and cardiomegaly, small right greater than left pleural effusion. X-rays of the hip and knee did show mostly osteoarthritic changes. The patient did mention still making urine. Denies significant burning or frequency of urine. The patient denies having any joint swelling or any redness and no abdominal pain and no diarrhea. REVIEW OF SYSTEMS: CONSTITUTIONAL: Positive for weakness. No high-grade fever. Eyes: No complaint. ENT no complaint. Respiratory as per HPI. Cardiovascular as per HPI. Genitourinary as per HPI. Gastrointestinal: No complaint. Musculoskeletal: No complaint. Integumentary: No complaint. Psychological no complaint. Endocrine no complaint. Neurologic no complaint. PAST MEDICAL HISTORY: Asthma, CVA, TIA, hypertension, osteoarthritis, pneumonia, renal failure. PAST MEDICAL HISTORY: Tonsillectomy, ORIF of right ankle fracture. removal, cardioversion, dental implants, lumbar steroid injection. SOCIAL HISTORY: Remote history of smoking. No drinking or any drug use. FAMILY HISTORY: Mother in her 80s from pulmonary aortic aneurysm. Father history of NM. ALLERGIES: No known drug allergies. MEDICATION: Currently include the patient is on Tylenol, Ventolin, Zyloprim, amiodarone, Norvasc, Eliquis, Symbicort, Lasix, hydralazine, Melatonin, Lopressor, Narcan and Zoloft. EXAMINATION: Blood pressure 153/59 with a pulse of 73, temperature 97.4, she is 98% on 2 L nasal cannula. General description is an elderly female lying in bed in no distress. No tachypnea or accessory muscles of respiration use. HEENT: Shows slight pallor. No scleral icterus. Oral mucosal membranes are dry. No pharyngeal erythema or thrush. Neck trachea central. No thyromegaly. LUNGS: Unlabored breathing. Decreased breath sounds at the bases. No wheeze. Heart S1, S2. Regular rate and rhythm. ABDOMEN: Soft, no tenderness. No guarding or rigidity. Extremities: No edema of the feet. Skin examination: No rash or mass palpable. Neurological: Patient is awake, alert, oriented times three. Mood and affect normal. LABS: Hemoglobin 7.1 with white count 23.4, BUN of 51, creatinine 3.0. Electrolytes have been normal. Hepatitis B serology has been negative. Chest x-ray report as mentioned above. DIAGNOSTIC IMPRESSION AND PLAN: The patient admitted to the hospital with increasing shortness of breath in a patient who was noticed to have some evidence of fluid overload on the chest x-ray, specifically has pneumonia and the patient clinically not significant cough or sputum production in a patient who did have recent diagnosis of renal failure and is currently getting dialyzed. The patient still makes some urine so for. The workup does not quite point toward any specific infection etiology as the patient x-ray report negative for any pneumonia. Abdomen was soft, clinical examination no evidence of any cellulitis or joint swelling. PLAN: 1. We will obtain UA and culture. 2. Empirically start the patient on Rocephin 1 g daily. 3. Depending on the clinical response as well as cultures will adjust her medications further if needed. Thank you for this consultation. We will follow this patient along with you. MMODL / IJN: [id number] /
[2018-02-28] MEDS: AMIODARONE 100 MG TAB PO SCH (09:19)
[2018-02-28] MEDS: ACETAMINOPHEN TAB 325 MG TAB PO PRN ×3 (09:19→23:49)
[2018-02-28] MEDS: FUROSEMIDE 10 MG/ML 4 ML VIAL IV SCH ×3 (09:19→23:35)
[2018-02-28] MEDS: ALLOPURINOL 100 MG TAB PO SCH (09:20)
[2018-02-28] MEDS: amLODIPine 10 MG TAB PO SCH (09:20)
[2018-02-28] MEDS: hydrALAZINE HCL 50 MG TAB PO SCH ×3 (09:20→21:21)
[2018-02-28] MEDS: APIXABAN 2.5 MG TABLET PO SCH ×2 (09:20→21:21)
[2018-02-28] MEDS: METOPROLOL TARTRATE 50 MG TAB PO SCH ×2 (09:20→21:21)
--- NOTE | 2018-02-28 09:20 | P.PN ---
Subjective Progress Note Date: 02/28/18 Principal diagnosis: This is a 72-year-old female seen in consultation because of hemodialysis dependent acute kidney injury. She was started on dialysis about a week ago when she had acute kidney injury there was an attempt to discontinue her dialysis but she failed attempt and came in because of shortness of breath. She might have had at most 3 dialysis as an outpatient. Yesterday morning she complains of shortness of breath she is on O2 by cannula. She was dialyzed yesterday and feels much better today. Supposedly she fell yesterday not sure as to the details. Post fall she has pain in her left hip. X-rays of the hip and knees are unremarkable. She has pain only when she moves. Even before the fall She was complaining of difficulty walking because of generalized weakness. She has a good appetite no nausea vomiting abdominal pain no diarrhea. Her urine output is minimal she says. She is known with previous CVA in 2005 without any residual . Otherwise no significant risk factor for ESRD Objective - Vital Signs Vital signs: Vital Signs Temp 98.0 F 02/28/18 03:36 Pulse 60 02/28/18 08:15 Resp 16 02/28/18 08:15 BP 127/61 02/28/18 08:15 Pulse Ox 92 L 02/28/18 08:15 Intake & Output 02/27/18 02/28/18 02/28/18 18:59 06:59 18:59 Output Total 500 400 Balance -500 -400 Weight 58 kg 56.6 kg Output: Urine 500 400 Other: Voiding Method Toilet Toilet # Voids 4 On examination she is awake alert oriented seems to be comfortable. She is on nasal cannula oxygen HEENT exam no JVP neck is supple no facial asymmetry Lungs are clear to auscultation percussion good air entry bilaterally Heart sounds are unremarkable for any murmur rub gallop Abdomen soft nontender nondistended Extremity examination reveals no edema Neurologically awake alert oriented. Generalized weakness. Moves all her extremities. - Labs CBC & Chem 7: 02/27/18 05:55 02/28/18 05:14 Labs: Abnormal Lab Results - Last 24 Hours (Table) 02/27/18 02/28/18 02/28/18 Range/Units 05:55 01:20 05:14 Sodium 134 L (137-145) mmol/L Potassium 3.1 L (3.5-5.1) mmol/L BUN 23 H (7-17) mg/dL Creatinine 2.04 H (0.52-1.04) mg/dL Calcium 7.9 L (8.4-10.2) mg/dL Iron 44 L (50-170) ug/dL TIBC 184 L (228-460) ug/dL Urine Appearance Cloudy H (Clear) Ur Leukocyte Esterase Large H (Negative) Urine WBC 66 H (0-5) /hpf Ur Squamous Epith Cells 9 H (0-4) /hpf Microbiology - Last 24 Hours (Table) 02/25/18 10:22 Blood Culture - Preliminary Blood No Growth after 48 hours Assessment and Plan Assessment: Impression 1. ATN with oliguria requiring resumption of dialysis. She was started on dialysis supposedly a week ago approximately, when she was admitted with pneumonia and an attempted discontinuation resulted in shortness of breath. She is oliguric. She was in CHF. 2. Chronic kidney disease with creatinine over the last 1 year 1.2 on 2017 to the highest of being 5.4 on 01/26/2018. 3. Anemia with hemoglobin 7.1. Iron saturation is 23% dated 02/27/2018 4. Leukocytosis white count went up to 23,400 from 17,000. 5. Mild hyponatremia secondary to chronic kidney disease acute kidney injury. 6. Mild hypokalemia secondary to dialysis, potassium is down from 3.6 predialysis yesterday -3.1 postdialysis today morning Recommendation 1. Continue on dialysis schedule Thursday. Next dialysis will be tomorrow. We will ultrafiltrate 1.5 L O2 and a half hours. 2. Maintain her on Epogen 4000 units.. 3. Replace potassium 20 mEq today 4. Hyponatremia better postdialysis. 5. Consider physiotherapy and discharge planning 6. Watch hemoglobin.
[2018-02-28] MEDS ORDERED: POTASSIUM CHLORIDE ER 20 MEQ TAB.ER PO STA (09:24)
[2018-02-28] MEDS: SERTRALINE 50 MG TAB PO SCH (21:21)
[2018-02-28] MEDS: MELATONIN 5 MG TABLET PO SCH (21:21)
--- NOTE | 2018-03-01 01:14 | PN ---
PROGRESS NOTE DATE OF SERVICE: 02/28/2018. REASON FOR FOLLOWUP: Leukocytosis, possible UTI. INTERVAL HISTORY: The patient is currently afebrile. Her breathing has slightly improved. Denies significant chest pain. Occasional cough. No abdominal pain or any diarrhea. Complaining of feeling weak. EXAMINATION: Blood pressure 135/61 with a pulse of 73, temperature 96.8. She is 97% on 2 L nasal cannula. General description is an elderly female up in the chair in no distress. Respiratory system unlabored breathing with decreased breath sounds at the bases. No wheeze. Heart S1, S2. Regular rate and rhythm. Abdomen soft. No tenderness. LABS: BUN of 23, creatinine 2.04. Urine was slightly positive. Blood culture so far negative. DIAGNOSTIC IMPRESSION AND PLAN: Patient with leukocytosis in this patient admitted to the hospital with increasing shortness of breath. Possible sushil with a question of possible 1 UTI. The patient is currently covered with Rocephin that will be continued. Repeat CBC tomorrow. Waiting for the culture to finalize. Continue supportive care. MMODL / IJN: [id number] /
[2018-03-01 08:47] LABS: Potassium 3.3 mmol/L (3.5-5.1)
[2018-03-01 09:06] LABS: Anisocytosis Slight; HCT 24.7 % (34.0-46.0); MCH 31.3 pg (25.0-35.0); MCHC 32.6 g/dL (31.0-37.0); MCV 96.3 fL (80.0-100.0); Macrocytosis Slight; Mean Platelet Volume 7.3; Platelet Count 262 k/uL (150-450); RBC 2.57 m/uL (3.80-5.40); RDW 17.8 % (11.5-15.5); WBC 16.2 k/uL (3.8-10.6)
[2018-03-01] MEDS: FUROSEMIDE 10 MG/ML 4 ML VIAL IV SCH ×2 (10:24→16:05)
[2018-03-01] MEDS: hydrALAZINE HCL 50 MG TAB PO SCH ×3 (10:26→22:45)
[2018-03-01] MEDS: APIXABAN 2.5 MG TABLET PO SCH ×2 (10:26→20:54)
[2018-03-01] MEDS: METOPROLOL TARTRATE 50 MG TAB PO SCH ×2 (10:26→20:54)
[2018-03-01] MEDS: amLODIPine 10 MG TAB PO SCH (10:26)
[2018-03-01] MEDS: ALLOPURINOL 100 MG TAB PO SCH (10:26)
[2018-03-01] MEDS ORDERED: Potassium Replacement Protocol 1 EACH MISC MISCELLANE PRN (10:29)
[2018-03-01] MEDS: AMIODARONE 100 MG TAB PO SCH (11:01)
[2018-03-01] MEDS: POTASSIUM CHLORIDE ER 20 MEQ TAB.ER PO SCH ×2 (11:01→12:05)
[2018-03-01] MEDS: SYMBICORT 160-4.5 MCG INHALER INHALATION SCH ×2 (11:28→21:15)
[2018-03-01] MEDS: ALBUTEROL NEBULIZED 2.5 MG/3 ML INHALATION PRN ×2 (11:28→21:15)
--- NOTE | 2018-03-01 15:14 | P.PN ---
Subjective Progress Note Date: 02/28/18 80-year-old female came in with pulmonary edema which improved significantly with Lasix patient is a 8 urinating now with the Lasix. Patient is dialysis dependent nephrology valid the patient patient undergoing dialysis today patient is feeling much better today much less short of breath off oxygen. 02/27/2018 As patient is urinating well the plan from nephrology is to hold off on dialysis leave her on Lasix but the her creatinine started worsening her urine output has dropped down because of which patient will be knee she did on hemodialysis again. Patient does have significant leukocytosis which is neutropenic leukocytosis a can't really explain her leukocytosis because of which will get opinion of infectious disease. Blood cultures were obtained from ER which was so far negative 02/28/2018 Patient did undergo hemodialysis today feeling much better. Constitutional: Denied any fatigue denied any fever. Cardio vascular: denied any chest pain, palpitations Gastrointestinal denied any nausea vomiting Pulmonary: Denied any shortness of breath cough Neurologic denied any new focal deficits Objective - Vital Signs Vital signs: Vital Signs Temp 97.8 F 03/01/18 12:00 Pulse 68 03/01/18 12:00 Resp 16 03/01/18 12:00 BP 176/90 03/01/18 12:00 Pulse Ox 99 03/01/18 12:00 Intake & Output 02/28/18 03/01/18 03/01/18 18:59 06:59 18:59 Intake Total 118 360 600 Output Total 100 100 Balance 18 260 600 Weight 57.9 kg Intake: Oral 118 360 600 Output: Urine 100 100 Other: Voiding Method Toilet Toilet Toilet # Voids 0 # Bowel Movements 1 - Exam PHYSICAL EXAMINATION: GENERAL: The patient is alert and oriented x3, not in any acute distress. Well developed, well nourished. HEENT: Pupils are round and equally reacting to light. EOMI. No scleral icterus. No conjunctival pallor. Normocephalic, atraumatic. No pharyngeal erythema. No thyromegaly. CARDIOVASCULAR: S1 and S2 present. No murmurs, rubs, or gallops. PULMONARY: Chest is clear to auscultation, no wheezing or crackles. ABDOMEN: Soft, nontender, nondistended, normoactive bowel sounds. No palpable organomegaly. MUSCULOSKELETAL: No joint swelling or deformity. EXTREMITIES: No cyanosis, clubbing, or pedal edema. NEUROLOGICAL: Gross neurological examination did not reveal any focal deficits. SKIN: No rashes. - Labs CBC & Chem 7: 03/01/18 07:42 03/01/18 07:42 Labs: Abnormal Lab Results - Last 24 Hours (Table) 03/01/18 03/01/18 Range/Units 07:42 07:42 WBC 16.2 H (3.8-10.6) k/uL RBC 2.57 L (3.80-5.40) m/uL Hgb 8.0 L (11.4-16.0) gm/dL Hct 24.7 L (34.0-46.0) % RDW 17.8 H (11.5-15.5) % Sodium 133 L (137-145) mmol/L Potassium 3.3 L (3.5-5.1) mmol/L Chloride 97 L (98-107) mmol/L BUN 32 H (7-17) mg/dL Creatinine 2.69 H (0.52-1.04) mg/dL Calcium 8.0 L (8.4-10.2) mg/dL Microbiology - Last 24 Hours (Table) 02/25/18 10:22 Blood Culture - Preliminary Blood No Growth after 96 hours 02/28/18 01:20 Urine Culture - Final Urine,Voided Assessment and Plan Plan: Acute hypoxic respiratory failure secondary to acute CHF exacerbation, diastolic dysfunction, patient does have pulmonary edema, underwent dialysis with the significant improvement in her respiratory status Leukocytosis reactive etiology is not clear , consulted infectious disease -Right midlung pseudotumor -History of Atrial fibrillation, currently sinus rhythm -Hypertension -hyperlipidemia -Acute on Chronic kidney disease, stage III , acute secondary to to ATN related to Cardiorenal syndrome, now on hemodialysis. -Hyperlipidemia -Rheumatoid arthritis -Anemia of chronic kidney disease -Hyponatremia improved improved
--- NOTE | 2018-03-01 16:03 | PN ---
PROGRESS NOTE DATE OF SERVICE: 03/01/2018 REASON FOR FOLLOWUP: Possible urinary tract infection. INTERVAL HISTORY: The patient is currently afebrile. She is breathing comfortably. Denies having any chest pain. Some shortness of breath. No cough. No abdominal pain or any diarrhea. PHYSICAL EXAMINATION: Blood pressure is 165/79 with a pulse of 86, temperature 97.7. She is 100% on 2 L nasal cannula. General description is an elderly female up in the chair in no distress. RESPIRATORY SYSTEM: Unlabored breathing with decreased breath sounds at the bases. No wheeze. HEART: S1, S2. Regular rate and rhythm. ABDOMEN: Soft. No tenderness. LABS: Hemoglobin 8, white count down to 16.2 with a BUN of 32, creatinine 0.69. Blood culture so far negative. DIAGNOSTIC IMPRESSION AND PLAN: Patient with elevated white count, multifactorial, with concern for possible urinary tract infection; did have a positive UA. White count seems to have responded to the IV Rocephin. Plan to finish therapy on a short course of oral Ceftin. Plan of care was discussed with the nurse practitioner for the admitting team. Continue with supportive care. MMODL / IJN: [id number] /
--- NOTE | 2018-03-01 16:24 | CDI ---
Last Revision, April 2017 Documentation Clarification Form Date: 03/01/18 From: Kathya Davis RN Admit Date: 02/25/2018 1:27:00 PM Patient Name: Brittany Levin Visit Number: [id number] ATTENTION: The Clinical Documentation Specialists (CDI) and [facility] Coding Staff appreciate your assistance in clarifying documentation. Please respond to the clarification below the line at the bottom and electronically sign. The CDI & [facility] Coding staff will review the response and follow-up if needed. Please note: Queries are made part of the Legal Health Record. If you have any questions, please contact the author of this message via ITS. Betsy Gill MD, Can you please render your opinion on the following documentation? admitted with CHF, pneumonia, fluid overload History/Risk Factors: asthma, CVA/TIA, HTN, OA, pneumonia, x smoker, CKD 3, hyperlipidemia, RA, anemia of chronic kidney disease Clinical Indicators: No lactic acid done WBC on admission 20.7, 03/01: 16.2 Blood cultures: no growth after 96 hours Vitals signs on admission: T 98.7, P 98, R 18, 181/84, 96% 2L- temp running between 96.6 - 97.7 Possible UTI and possible pneumonia noted Pt diagnosis with acute hypoxic respiratory failure 02/28: urine output minimal. 03/01: urine output has dropped Treatment: ID Consult: Dr. Mello Antibiotics: Ceftriaxone IVPB, Levofloxacin IVPB In your professional opinion, please clarify if these findings signify one of the following conditions, whether the condition is POA, and cause, if known: Condition Sepsis ruled out Sepsis ruled in Other, please specify Unable to determine Present on Admission: Yes No [facility]
--- NOTE | 2018-03-01 17:18 | PN ---
PROGRESS NOTE Patient is seen for followup for acute kidney injury, currently hemodialysis-dependent. Patient was dialyzed over the weekend. She was dialyzed today as well. We had tried to take her off of dialysis, but patient developed worsening CHF and volume overload. Her urine output did not draft roller picker significantly with IV Lasix, and therefore she was restarted on hemodialysis. Currently patient still has chair time at the [facility] on a Thursday, Thursday, Thursday schedule. She can be discharged and follow up as outpatient. On examination today, blood pressure was 176/90, heart rate of 68 per minute. Patient is afebrile. EXAMINATION OF THE HEART: S1, S2. EXAMINATION OF LUNGS: Bilateral breath sounds are heard. ABDOMEN: Soft, non-tender. Examination of lower extremities shows no significant edema. Labs reveal sodium of 133, potassium 3.3, BUN 32, serum creatinine 2.69, hemoglobin 8.0. ASSESSMENT: 1. Acute kidney injury, currently hemodialysis-dependent, restarted on dialysis. Patient will continue with a Thursday, Thursday, Thursday schedule as outpatient. 2. Hypokalemia. Will replace before discharge. 3. Congestive heart failure, volume overload, diastolic heart failure, acute on top of chronic. 4. Hypertension. Blood pressure is currently elevated; however, it was much better yesterday. I will continue with the same medications. 5. Chronic kidney disease with baseline creatinine 0.9 to 1.2 mg/dL most of 2017 secondary to nephrosclerosis. PLAN: Patient can be discharged from nephrology standpoint with followup as outpatient on a Thursday, Thursday, Thursday schedule for dialysis. MMODL / IJN: [id number] /
[2018-03-01] MEDS: ACETAMINOPHEN TAB 325 MG TAB PO PRN (20:53)
[2018-03-01] MEDS: SERTRALINE 50 MG TAB PO SCH (20:54)
[2018-03-01] MEDS: MELATONIN 5 MG TABLET PO SCH (22:45)
[2018-03-02] MEDS: FUROSEMIDE 10 MG/ML 4 ML VIAL IV SCH ×2 (00:44→09:03)
[2018-03-02] MEDS: SYMBICORT 160-4.5 MCG INHALER INHALATION SCH ×2 (08:18→20:19)
[2018-03-02] MEDS: ALBUTEROL NEBULIZED 2.5 MG/3 ML INHALATION PRN (08:18)
[2018-03-02 08:40] LABS: Albumin 2.5 g/dL (3.5-5.0); Calcium 7.9 mg/dL (8.4-10.2); Potassium 3.4 mmol/L (3.5-5.1); Total Bilirubin 0.4 mg/dL (0.2-1.3)
[2018-03-02] MEDS: ALLOPURINOL 100 MG TAB PO SCH (09:04)
[2018-03-02] MEDS: APIXABAN 2.5 MG TABLET PO SCH ×2 (09:04→20:14)
[2018-03-02] MEDS: hydrALAZINE HCL 50 MG TAB PO SCH (09:04)
[2018-03-02] MEDS: METOPROLOL TARTRATE 50 MG TAB PO SCH ×2 (09:04→20:14)
[2018-03-02] MEDS: amLODIPine 10 MG TAB PO SCH (09:04)
--- NOTE | 2018-03-02 09:11 | P.PN ---
Subjective Progress Note Date: 03/01/18 Progress note being dictated for Dr. Ramirez. Interval history:80-year-old female came in with pulmonary edema which improved significantly with Lasix patient is a 8 urinating now with the Lasix. Patient is dialysis dependent nephrology valid the patient patient undergoing dialysis today patient is feeling much better today much less short of breath off oxygen. 02/27/2018 As patient is urinating well the plan from nephrology is to hold off on dialysis leave her on Lasix but the her creatinine started worsening her urine output has dropped down because of which patient will be knee she did on hemodialysis again. Patient does have significant leukocytosis which is neutropenic leukocytosis a can't really explain her leukocytosis because of which will get opinion of infectious disease. Blood cultures were obtained from ER which was so far negative 02/28/2018 Patient did undergo hemodialysis today feeling much better. Constitutional: Denied any fatigue denied any fever. Cardio vascular: denied any chest pain, palpitations Gastrointestinal denied any nausea vomiting Pulmonary: Denied any shortness of breath cough Neurologic denied any new focal deficits 03/01/18 mild shortness of breath, receiving hemodialysis today. Afebrile, elevated , improving WBC, 16.2. UA with large leukocytes, urine culture negative. Maintained on IV antibiotics as per infectious disease. Potassium 3.3 , Receiving potassium supplements. Denies chest pain, palpitations. Objective - Vital Signs Vital signs: Vital Signs Temp 97.4 F L 03/01/18 15:57 Pulse 67 03/01/18 15:57 Resp 18 03/01/18 15:57 BP 160/62 03/01/18 15:57 Pulse Ox 97 03/01/18 15:57 Intake & Output 02/28/18 03/01/18 03/01/18 18:59 06:59 18:59 Intake Total 118 360 600 Output Total 100 100 150 Balance 18 260 450 Weight 57.9 kg Intake: Oral 118 360 600 Output: Urine 100 100 150 Other: Voiding Method Toilet Toilet Toilet # Voids 0 3 # Bowel Movements 1 2 - Exam GENERAL: The patient is sitting up in chair, alert and oriented x3, not in any acute distress. Well developed, well nourished. HEENT: Pupils are round and equally reacting to light. EOMI. No scleral icterus. No conjunctival pallor. Normocephalic, atraumatic. No pharyngeal erythema. No thyromegaly. CARDIOVASCULAR: S1 and S2 present. No murmurs, rubs, or gallops. PULMONARY: Chest is clear to auscultation, no wheezing or crackles. ABDOMEN: Soft, nontender, nondistended, normoactive bowel sounds. No palpable organomegaly. MUSCULOSKELETAL: No joint swelling or deformity. EXTREMITIES: No cyanosis, clubbing, or pedal edema. NEUROLOGICAL: Gross neurological examination did not reveal any focal deficits. SKIN: No rashes. - Labs CBC & Chem 7: 03/01/18 07:42 03/02/18 07:33 Labs: Abnormal Lab Results - Last 24 Hours (Table) 03/01/18 03/01/18 Range/Units 07:42 07:42 WBC 16.2 H (3.8-10.6) k/uL RBC 2.57 L (3.80-5.40) m/uL Hgb 8.0 L (11.4-16.0) gm/dL Hct 24.7 L (34.0-46.0) % RDW 17.8 H (11.5-15.5) % Sodium 133 L (137-145) mmol/L Potassium 3.3 L (3.5-5.1) mmol/L Chloride 97 L (98-107) mmol/L BUN 32 H (7-17) mg/dL Creatinine 2.69 H (0.52-1.04) mg/dL Calcium 8.0 L (8.4-10.2) mg/dL Microbiology - Last 24 Hours (Table) 02/25/18 10:22 Blood Culture - Preliminary Blood No Growth after 96 hours 02/28/18 01:20 Urine Culture - Final Urine,Voided Assessment and Plan Assessment: Acute hypoxic respiratory failure secondary to acute CHF exacerbation, diastolic dysfunction,pulmonary edema, underwent dialysis with the significant improvement in her respiratory status Leukocytosis reactive etiology is not clear , possible acute UTI with the positive UA, negative culture, responding to IV antibiotics. -Right midlung pseudotumor -History of Atrial fibrillation, currently sinus rhythm -Hypertension -hyperlipidemia -Acute on Chronic kidney disease, stage III , acute secondary to to ATN related to Cardiorenal syndrome, now on hemodialysis. -Hyperlipidemia -Rheumatoid arthritis -Anemia of chronic kidney disease -Hyponatremia improved Plan: Continue current medication regime ,monitoring and symptomatic treatment. Hemodialysis today as per nephrology. Close monitoring of renal function, electrolytes with repeat labs ordered for am. PT/OT. Potential subacute rehab at discharge. Discharge planning in progress for tomorrow. The impression and plan of care has been dictated as directed. : I performed a history and examination of this patient, discussed the same with the dictator. I agree with the dictator's note ,documented as a scribe. Any additional findings or plans will be noted.
[2018-03-02] MEDS ORDERED: POTASSIUM CHLORIDE ER 20 MEQ TAB.ER PO STA (10:32)
--- NOTE | 2018-03-02 11:25 | P.PN ---
Subjective Patient is seen in follow-up for acute kidney injury currently hemodialysis dependent. She is maintained on hemodialysis on a Thursday schedule. She tolerated hemodialysis well yesterday. Denies chest pain or shortness of breath at this time. Hemodynamically stable. Attempt was made to discontinue dialysis but patient went into fluid overload and dialysis had to be resumed. She has history of diastolic CHF. Vital signs are stable. General: The patient appeared well nourished and normally developed. HEENT: Head exam is unremarkable. Neck is without jugular venous distension. LUNGS: Lungs are clear to auscultation and percussion. Breath sounds decreased. HEART: Rate and Rhythm are regular. First and second heart sounds normal. No murmurs, rubs or gallops. ABDOMEN: Abdominal exam reveals normal bowel sounds. Non-tender and non- distended. No evidence of peritonitis. EXTREMITITES: No clubbing, cyanosis, or edema. Objective - Vital Signs Vital signs: Vital Signs Temp 97.9 F 03/02/18 08:00 Pulse 72 03/02/18 08:30 Resp 18 03/02/18 08:21 BP 170/76 03/02/18 08:00 Pulse Ox 97 03/02/18 08:21 Intake & Output 03/01/18 03/02/18 03/02/18 18:59 06:59 18:59 Intake Total 780 50 Output Total 150 Balance 630 50 Weight 58.3 kg Intake: Intake, IV Titration 50 Amount cefTRIAXone 1,000 mg In 50 Sodium Chloride 0.9% 50 ml @ 100 mls/hr IVPB Q24HR [facility] Rx#:[id number] Oral 780 Output: Urine 150 Other: Voiding Method Toilet Toilet # Voids 3 2 # Bowel Movements 2 3 1 - Labs CBC & Chem 7: 03/01/18 07:42 03/02/18 07:33 Labs: Abnormal Lab Results - Last 24 Hours (Table) 03/02/18 Range/Units 07:33 Sodium 133 L (137-145) mmol/L Potassium 3.4 L (3.5-5.1) mmol/L Chloride 97 L (98-107) mmol/L BUN 20 H (7-17) mg/dL Creatinine 2.32 H (0.52-1.04) mg/dL Calcium 7.9 L (8.4-10.2) mg/dL Total Protein 5.0 L (6.3-8.2) g/dL Albumin 2.5 L (3.5-5.0) g/dL Microbiology - Last 24 Hours (Table) 02/25/18 10:22 Blood Culture - Preliminary Blood No Growth after 96 hours 02/28/18 01:20 Urine Culture - Final Urine,Voided Assessment and Plan Plan: Assessment: 1. Acute kidney injury currently hemodialysis dependent secondary to cardiorenal syndrome. She is maintained on hemodialysis on a Thursday schedule. 2. Volume overload. Improved with ultrafiltration. 3. Diastolic CHF. 4. Hypokalemia secondary to diuresis. 5. Chronic kidney disease stage III with creatinine in the range of 0.9-1.2 earlier this year. 6. Hypertension with chronic kidney disease. 7. Anemia of chronic kidney disease. Mild iron deficiency noted. Plan: I will change Lasix to 80 mg orally twice daily. Increase hydralazine to 75 mg 3 times daily. Hemodialysis tomorrow. Replace potassium. 40 mEq today. Ferrlecit 125 mg IV once today. Add Aranesp.
[2018-03-02] MEDS ORDERED: DARBEPOETIN ALFA 40 MCG/0.4 ML SYRINGE SQ SCH (12:00)
[2018-03-02] MEDS ORDERED: SODIUM FERRIC GLUCONAT-SUCROSE 125 MG in SODIUM CHLORIDE 0.9% 100 ML IVPB ONE (12:00)
[2018-03-02] MEDS: AMIODARONE 100 MG TAB PO SCH (12:29)
[2018-03-02] MEDS: hydrALAZINE HCL 25 MG TAB PO SCH ×2 (17:00→23:26)
[2018-03-02] MEDS: FUROSEMIDE 80 MG TAB PO SCH (17:02)
--- NOTE | 2018-03-02 17:52 | PN ---
PROGRESS NOTE DATE OF SERVICE: 03/02/2018 REASON FOR FOLLOWUP: Possible UTI in a patient with elevated white count. INTERVAL HISTORY: The patient is currently afebrile. She is not feeling very well, complaining of pain, mostly in the leg area. Denies having any chest pain. Occasional cough. No abdominal pain and no diarrhea. PHYSICAL EXAMINATION: Blood pressure 160/72 with a pulse of 67, temperature 98. She is 95% on 2 L nasal cannula. General description is an elderly female up in the chair in no distress. RESPIRATORY SYSTEM: Unlabored breathing with decreased breath sounds in the bases. No wheeze. HEART: S1, S2. Regular rate and rhythm. ABDOMEN: Soft. No tenderness. LABS: BUN of 20, creatinine 2.32. No CBC was done today. Her white count was down to 16.2 yesterday. Blood cultures have been negative so far. DIAGNOSTIC IMPRESSION AND PLAN: Patient with an elevated white count, concern for possible urinary tract infection. Her white count has responded to the ceftriaxone. That can be transitioned to a short course of oral Ceftin to finish a course of therapy. Questions and concerns were answered. MMODL / IJN: [id number] /
[2018-03-02] MEDS: SERTRALINE 50 MG TAB PO SCH (20:14)
[2018-03-02] MEDS: MELATONIN 5 MG TABLET PO SCH (23:26)
[2018-03-03] MEDS: SYMBICORT 160-4.5 MCG INHALER INHALATION SCH ×2 (07:30→21:16)
[2018-03-03] MEDS: hydrALAZINE HCL 25 MG TAB PO SCH ×3 (10:48→23:06)
[2018-03-03] MEDS: METOPROLOL TARTRATE 50 MG TAB PO SCH ×2 (10:49→21:22)
[2018-03-03] MEDS: APIXABAN 2.5 MG TABLET PO SCH ×2 (10:49→21:22)
[2018-03-03] MEDS: FUROSEMIDE 80 MG TAB PO SCH ×2 (10:49→17:38)
[2018-03-03] MEDS: ALLOPURINOL 100 MG TAB PO SCH (10:49)
[2018-03-03] MEDS: amLODIPine 10 MG TAB PO SCH (10:49)
[2018-03-03] MEDS ORDERED: POTASSIUM CHLORIDE ER 20 MEQ TAB.ER PO STA (11:41)
--- NOTE | 2018-03-03 11:57 | P.PN ---
Subjective Patient is seen in follow-up for acute kidney injury currently hemodialysis dependent. She is maintained on hemodialysis on a Thursday schedule. Denies chest pain or shortness of breath at this time. Hemodynamically stable. Attempt was made to discontinue dialysis but patient went into fluid overload and dialysis had to be resumed. She has history of diastolic CHF. Patient sustained a fall earlier this admission. Plan is for go to rehab. No active complaints at this time. Vital signs are stable. General: The patient appeared well nourished and normally developed. HEENT: Head exam is unremarkable. Neck is without jugular venous distension. LUNGS: Lungs are clear to auscultation and percussion. Breath sounds decreased. HEART: Rate and Rhythm are regular. First and second heart sounds normal. No murmurs, rubs or gallops. ABDOMEN: Abdominal exam reveals normal bowel sounds. Non-tender and non- distended. No evidence of peritonitis. EXTREMITITES: No clubbing, cyanosis, or edema. Objective - Vital Signs Vital signs: Vital Signs Temp 97.8 F 03/03/18 08:00 Pulse 71 03/03/18 08:00 Resp 22 03/03/18 04:00 BP 139/64 03/03/18 08:00 Pulse Ox 98 03/03/18 08:00 Intake & Output 03/02/18 03/03/18 03/03/18 18:59 06:59 18:59 Intake Total 410 290 Output Total 200 Balance 210 290 Weight 58 kg 58 kg Intake: Intake, IV Titration 50 50 Amount cefTRIAXone 1,000 mg In 50 50 Sodium Chloride 0.9% 50 ml @ 100 mls/hr IVPB Q24HR [facility] Rx#:[id number] Oral 360 240 Output: Urine 200 Other: Voiding Method Bedside Commode # Voids 3 # Bowel Movements 1 3 - Labs CBC & Chem 7: 03/01/18 07:42 03/02/18 07:33 Labs: Microbiology - Last 24 Hours (Table) 02/25/18 10:22 Blood Culture - Preliminary Blood No Growth after 120 hours Assessment and Plan Plan: Assessment: 1. Acute kidney injury currently hemodialysis dependent secondary to cardiorenal syndrome. She is maintained on hemodialysis on a Thursday schedule. 2. Volume overload. Improved with ultrafiltration. 3. Diastolic CHF. 4. Hypokalemia secondary to diuresis. 5. Chronic kidney disease stage III with creatinine in the range of 0.9-1.2 earlier this year. 6. Hypertension with chronic kidney disease. Controlled. 7. Anemia of chronic kidney disease. Mild iron deficiency noted. Status post IV iron on March 02. Also maintained on Aranesp. 8. Hyponatremia secondary to chronic kidney disease. Expect improvement with dialysis. Plan: Hemodialysis today. Replace potassium. 40 mEq today. Maintain current antihypertensives.
[2018-03-03] MEDS: AMIODARONE 100 MG TAB PO SCH (12:43)
--- NOTE | 2018-03-03 14:23 | PN ---
PROGRESS NOTE DATE OF SERVICE: 03/03/2018 REASON FOR FOLLOWUP: Leukocytosis, possible UTI. INTERVAL HISTORY: The patient is currently afebrile. She complains of generalized body aches and pains and weakness. No chest pain. No abdominal pain or any diarrhea. PHYSICAL EXAMINATION: Her blood pressure is 139/64 with a pulse of 71, temperature 97.8, she is 98% on 2 L nasal cannula. General description is an elderly female, up in the chair in no distress. RESPIRATORY SYSTEM: Unlabored breathing with decreased breath sounds at the bases, no wheeze. HEART: S1, S2. Regular rate and rhythm. ABDOMEN: Soft, no tenderness. LABS: No new lab has been done today. Her culture has been negative so far. DIAGNOSTIC IMPRESSION AND PLAN: Patient with leukocytosis and concern for possible urinary tract infection. Patient's white count showing downward trend with the Rocephin has to finish therapy with oral Ceftin for another 5-7 days with close outpatient followup. MMODL / IJN: [id number] /
[2018-03-03] MEDS: SERTRALINE 50 MG TAB PO SCH (21:22)
[2018-03-03] MEDS: MELATONIN 5 MG TABLET PO SCH (23:06)
[2018-03-04] MEDS: SYMBICORT 160-4.5 MCG INHALER INHALATION SCH (08:00)
[2018-03-04] MEDS: APIXABAN 2.5 MG TABLET PO SCH (08:48)
[2018-03-04] MEDS: AMIODARONE 100 MG TAB PO SCH (08:48)
[2018-03-04] MEDS: METOPROLOL TARTRATE 50 MG TAB PO SCH (08:48)
[2018-03-04] MEDS: amLODIPine 10 MG TAB PO SCH (08:48)
[2018-03-04] MEDS: hydrALAZINE HCL 25 MG TAB PO SCH ×2 (08:48→15:31)
[2018-03-04 08:53] VITALS: RESP 12
[2018-03-04] MEDS: ALLOPURINOL 100 MG TAB PO SCH (08:57)
[2018-03-04] MEDS ORDERED: POTASSIUM CHLORIDE ER 20 MEQ TAB.ER PO STA (09:30)
[2018-03-04] MEDS: FUROSEMIDE 80 MG TAB PO SCH ×2 (09:54→15:29)
--- NOTE | 2018-03-04 10:29 | P.PN ---
Subjective Patient is seen in follow-up for acute kidney injury currently hemodialysis dependent. She is maintained on hemodialysis on a Thursday schedule. Denies chest pain or shortness of breath at this time. Hemodynamically stable. Attempt was made to discontinue dialysis but patient went into fluid overload and dialysis had to be resumed. She has history of diastolic CHF. Patient sustained a fall earlier this admission. Plan is for go to rehab. No active complaints at this time. Vital signs are stable. General: The patient appeared well nourished and normally developed. HEENT: Head exam is unremarkable. Neck is without jugular venous distension. LUNGS: Lungs are clear to auscultation and percussion. Breath sounds decreased. HEART: Rate and Rhythm are regular. First and second heart sounds normal. No murmurs, rubs or gallops. ABDOMEN: Abdominal exam reveals normal bowel sounds. Non-tender and non- distended. No evidence of peritonitis. EXTREMITITES: No clubbing, cyanosis, or edema. Objective - Vital Signs Vital signs: Vital Signs Temp 97.9 F 03/04/18 08:00 Pulse 62 03/04/18 08:00 Resp 12 03/04/18 08:00 BP 137/67 03/04/18 08:00 Pulse Ox 94 L 03/04/18 08:00 Intake & Output 03/03/18 03/04/18 03/04/18 18:59 06:59 18:59 Intake Total 512 Output Total 300 Balance 212 Weight 58 kg 45.813 kg Intake: Intake, IV Titration 50 Amount cefTRIAXone 1,000 mg In 50 Sodium Chloride 0.9% 50 ml @ 100 mls/hr IVPB Q24HR [facility] Rx#:[id number] Oral 462 Output: Urine 300 Other: Voiding Method Bedside Commode # Voids 3 # Bowel Movements 1 - Labs CBC & Chem 7: 03/01/18 07:42 03/04/18 08:04 Labs: Microbiology - Last 24 Hours (Table) 02/25/18 10:22 Blood Culture - Final Blood No Growth after 144 hours Assessment and Plan Plan: Assessment: 1. Acute kidney injury currently hemodialysis dependent secondary to cardiorenal syndrome. She is maintained on hemodialysis on a Thursday schedule. 2. Volume overload. Improved with ultrafiltration. 3. Diastolic CHF. 4. Hypokalemia secondary to diuresis. Improved post replacement. 5. Chronic kidney disease stage III with creatinine in the range of 0.9-1.2 earlier this year. 6. Hypertension with chronic kidney disease. Controlled. 7. Anemia of chronic kidney disease. Mild iron deficiency noted. Status post IV iron on March 02. Also maintained on Aranesp. 8. Hyponatremia secondary to chronic kidney disease. Expect improvement with dialysis. Plan: Hemodialysis tomorrow. Maintain current antihypertensives. Stable to be discharged from nephrology standpoint.
--- NOTE | 2018-03-04 14:51 | P.DS ---
Providers Date of admission: 02/25/18 13:27 Expected date of discharge: 03/04/18 Attending physician: Betsy Ramirez Final Diagnoses Acute hypoxic respiratory failure secondary to acute CHF exacerbation, diastolic dysfunction,pulmonary edema, cardiorenal syndrome. Leukocytosis reactive etiology is not clear , possible acute UTI with the positive UA, negative culture, responding to IV antibiotics. -Right midlung pseudotumor -History of Atrial fibrillation, currently sinus rhythm -Hypertension -hyperlipidemia -Acute on Chronic kidney disease, stage III , acute secondary to to ATN related to Cardiorenal syndrome, now on hemodialysis. -Hyperlipidemia -Rheumatoid arthritis -Anemia of chronic kidney disease -Hyponatremia secondary to chronic kidney disease Hospital course:80-year-old female came in with pulmonary edema, chronic Kidney failure -hemodialysis dependent, neutropenic leukocytosis, possible acute UTI and multiple other medical issues. Evaluated by nephrology and infectious disease. Maintained on IV antibiotics , hemodialysis . Significant clinical improvement. Patient has been cleared for discharge by both infectious disease and nephrology. Patient is being discharged to [facility] in a stable condition with guarded prognosis. Microbiology 02/25/18 10:22 Blood Blood Culture - Final No Growth after 144 hours 02/28/18 01:20 Urine,Voided Urine Culture - Final Exam GENERAL: alert and oriented x3, not in any acute distress. CARDIOVASCULAR: S1 and S2 present. No murmurs, rubs, or gallops. PULMONARY: Chest is clear to auscultation, no wheezing or crackles. ABDOMEN: Soft, nontender, nondistended, normoactive bowel sounds. No palpable organomegaly. NEUROLOGICAL: Gross neurological examination did not reveal any focal deficits. The impression and plan of care has been dictated as directed. : I performed a history and examination of this patient, discussed the same with the dictator. I agree with the dictator's note ,documented as a scribe. Any additional findings or plans will be noted. Time taken: 35 minutes Consults: 02/25/18 13:27 Consult Physician Urgent Consulting Provider: Kaela Vargas Consult Reason/Comments: End-stage renal disease, fluid overload Do you want consulting provider notified?: Already Contacted 02/27/18 10:57 Consult Physician Routine Consulting Provider: Adis Mello Consult Reason/Comments: Elevated WBC Do you want consulting provider notified?: Yes Primary care physician: Soren Desai Patient Condition at Discharge: Stable Plan - Discharge Summary Discharge Rx Participant: Yes New Discharge Prescriptions: New Cefuroxime [Ceftin] 250 mg PO DAILY #5 tab Albuterol Nebulized [Ventolin Nebulized] 2.5 mg INHALATION RT-Q6H PRN nebu PRN Reason: Wheezing hydrALAZINE HCL [Apresoline] 75 mg PO TID tab Continue Sertraline HCl [Zoloft] 50 mg PO HS amLODIPine [Norvasc] 10 mg PO DAILY tab Allopurinol [Zyloprim] 100 mg PO DAILY Amiodarone [Cordarone] 100 mg PO DAILY tab Apixaban [Eliquis] 2.5 mg PO BID #60 tablet Calcium Acetate [PhosLo] 667 mg PO TID-W/MEALS #90 cap Furosemide [Lasix] 80 mg PO BID@0900,1600 #60 tab Metoprolol Tartrate [Lopressor] 50 mg PO BID #60 tab Budesonide-Formot 160-4.5 Mcg [Symbicort 160-4.5 Mcg Inhaler] 2 puff INHALATION RT-BID Discontinued Albuterol Inhaler [Ventolin Hfa Inhaler] 1 - 2 puff INHALATION RT-Q6H PRN PRN Reason: Wheezing hydrALAZINE HCL 50 mg PO TID Discharge Medication List Sertraline HCl [Zoloft] 50 mg PO HS 04/30/17 [History] amLODIPine [Norvasc] 10 mg PO DAILY tab 07/16/17 [Rx] Allopurinol [Zyloprim] 100 mg PO DAILY 09/09/17 [History] Amiodarone [Cordarone] 100 mg PO DAILY tab 02/06/18 [Rx] Apixaban [Eliquis] 2.5 mg PO BID #60 tablet 02/06/18 [Rx] Calcium Acetate [PhosLo] 667 mg PO TID-W/MEALS #90 cap 02/06/18 [Rx] Furosemide [Lasix] 80 mg PO BID@0900,1600 #60 tab 02/06/18 [Rx] Metoprolol Tartrate [Lopressor] 50 mg PO BID #60 tab 02/06/18 [Rx] Budesonide-Formot 160-4.5 Mcg [Symbicort 160-4.5 Mcg Inhaler] 2 puff INHALATION RT-BID 02/25/18 [History] Cefuroxime [Ceftin] 250 mg PO DAILY #5 tab 03/02/18 [Rx] Albuterol Nebulized [Ventolin Nebulized] 2.5 mg INHALATION RT-Q6H PRN nebu [Rx] hydrALAZINE HCL [Apresoline] 75 mg PO TID tab 03/04/18 [Rx] Follow up Appointment(s)/Referral(s): [facility], [NON-STAFF] - Bean Frank MD [REFERRING] - 1 Week Activity/Diet/Wound Care/Special Instructions: [facility] DIET: REGULAR CHANGE DRESSING DAILY AND NEEDED ACTIVITY NON WEIGHT BEARING LEFT ANKLE Hemodialysis as per nephrology
[2018-03-04] MEDS: ACETAMINOPHEN TAB 325 MG TAB PO PRN (15:29)
[2018-03-04 16:04] VITALS: BP 155/62; PULSE 60; TEMP 97.7
--- NOTE | 2018-03-04 21:54 | PN ---
PROGRESS NOTE DATE OF SERVICE: 03/04/2018. REASON FOR FOLLOWUP: Leukocytosis, possible UTI. INTERVAL HISTORY: The patient was seen on rounds earlier this afternoon. The patient has been afebrile. She is breathing comfortably. Denies significant chest pain. Occasional cough. No abdominal pain. No diarrhea. EXAMINATION: Blood pressure 155/62 with a pulse of 60. Temperature 97.7, she is 98% on room air. General description is an elderly female up in the bed in no distress. Respiratory system: Unlabored breathing. Decreased breath sounds in the base. No wheeze. Heart S1, S2. Regular rate and rhythm. Abdomen soft. No tenderness. LABS: Potassium 3.7, hemoglobin culture has been negative. DIAGNOSTIC IMPRESSION AND PLAN: Patient with leukocytosis which is likely multifactorial, possible a component of urinary tract infection. The patient to finish up with a short course of oral Ceftin with close outpatient followup. Continue supportive care. MMODL / TRINAN: [id number] /
== END 2018-03-04 18:18 | DRG 871 ==
LOC: EC 10:03 → 6SEL 13:27 → 3SCARD 02-28 10:56 → 6SEL 02-28 10:56 → 3SCARD 03-01 15:40 → 4SSUR 03-03 21:08
PROVIDERS: ADMIT Internal Medicine; ATTEND Internal Medicine
DX: A41.9 Sepsis, unspecified organism (principal); I50.33 Acute on chronic diastolic (congestive) heart failure; J96.01 Acute respiratory failure with hypoxia; N17.0 Acute kidney failure with tubular necrosis; E87.1 Hypo-osmolality and hyponatremia; I13.2 Hypertensive heart and chronic kidney disease with heart failure and with stage 5 chronic kidney disease, or end stage renal disease; N39.0 Urinary tract infection, site not specified; D49.1 Neoplasm of unspecified behavior of respiratory system; D63.1 Anemia in chronic kidney disease; E78.5 Hyperlipidemia, unspecified; E87.6 Hypokalemia; I48.91 Unspecified atrial fibrillation; M06.9 Rheumatoid arthritis, unspecified; T50.2X5A Adverse effect of carbonic-anhydrase inhibitors, benzothiadiazides and other diuretics, initial encounter; M25.552 Pain in left hip; N18.3 Chronic kidney disease, stage 3 (moderate); J44.9 Chronic obstructive pulmonary disease, unspecified; M16.0 Bilateral primary osteoarthritis of hip; M17.0 Bilateral primary osteoarthritis of knee; Z79.01 Long term (current) use of anticoagulants; Z79.51 Long term (current) use of inhaled steroids; Z79.899 Other long term (current) drug therapy; Z86.73 Personal history of transient ischemic attack (TIA), and cerebral infarction without residual deficits; Z87.01 Personal history of pneumonia (recurrent); Z99.2 Dependence on renal dialysis; Z87.891 Personal history of nicotine dependence; Z82.49 Family history of ischemic heart disease and other diseases of the circulatory system; W19.XXXA Unspecified fall, initial encounter; Y92.239 Unspecified place in hospital as the place of occurrence of the external cause
CPT/HCPCS: 36415; 71045; 71046; 73502; 80048; 80053; 81001; 82550; 82553; 83540; 83550; 83735; 83880; 84100; 84132; 84484; 85025; 85027; 85610; 85730; 86704; 86706; 87040; 87086; 87340; 90935; 93005; 94640; 94760; 96365; 96374; 96375; 99285

== ENCOUNTER 2018-03-05 16:31 | Inpatient (IN) | payer MEDICARE, BC ==
--- NOTE | 2018-03-05 16:57 | ED ---
SOB HPI - General Stated Complaint: Diff Breathing Time Seen by Provider: 03/05/18 16:46 Source: RN notes reviewed, old records reviewed - History of Present Illness Initial Comments: This is a 72-year-old female the ER for evaluation. Patient does say for evaluation of shortness of breath weakness. Patient was at dialysis today went home and became significantly weak lethargic and inability to amylase secondary weakness. Patient has renal failure COPD CHF heart disease. Patient denies recent fever, denies recent episodes of chest pain abdominal pain. She is having diarrhea and is currently on antibiotics for possible underlying pneumonia MD Complaint: shortness of breath, cough -: days(s) Severity scale (1-10): 3 Quality: dull Consistency: other Worsens With: exertion Known History Of: COPD, congestive heart failure Associated Symptoms: nausea/vomiting, other (diarrhea) Treatments Prior to Arrival: none - Related Data Home Medications Medication Instructions Recorded Confirmed Sertraline HCl [Zoloft] 50 mg PO HS 04/30/17 03/05/18 Allopurinol [Zyloprim] 100 mg PO DAILY 09/09/17 03/05/18 Budesonide-Formot 160-4.5 Mcg 2 puff INHALATION RT-BID 02/25/18 03/05/18 [Symbicort 160-4.5 Mcg Inhaler] Albuterol Nebulized [Ventolin 2.5 mg INHALATION RT-QID PRN 03/05/18 03/05/18 Nebulized] Previous Rx's Medication Instructions Recorded amLODIPine [Norvasc] 10 mg PO DAILY tab 07/16/17 Amiodarone [Cordarone] 100 mg PO DAILY tab 02/06/18 Apixaban [Eliquis] 2.5 mg PO BID #60 tablet 02/06/18 Calcium Acetate [PhosLo] 667 mg PO TID-W/MEALS #90 cap 02/06/18 Furosemide [Lasix] 80 mg PO BID@0900,1600 #60 tab 02/06/18 Metoprolol Tartrate [Lopressor] 50 mg PO BID #60 tab 02/06/18 Cefuroxime [Ceftin] 250 mg PO DAILY #5 tab 03/02/18 hydrALAZINE HCL [Apresoline] 75 mg PO TID tab 03/04/18 Allergies Allergy/AdvReac Type Severity Reaction Status Date / Time No Known Allergies Allergy Verified 03/05/18 17:05 Review of Systems ROS Statement: Those systems with pertinent positive or pertinent negative responses have been documented in the HPI. ROS Other: All systems not noted in ROS Statement are negative. Past Medical History Past Medical History: Asthma, Heart Failure, CVA/TIA, Hypertension, Osteoarthritis (OA), Pneumonia Additional Past Medical History / Comment(s): 02-25-18 pt would like a pne vaccine if ok with dr before going home. cva 2005 no residual problems,irreg heart rate,SOB, chf, recent arf had dialysis cath inserted 02-02-18 gets dialysis [id number]. History of Any Multi-Drug Resistant Organisms: None Reported Past Surgical History: Tonsillectomy Additional Past Surgical History / Comment(s): ORIF rt ankle-[address], IUD removal, lumbar steroid injections, DENTAL IMPLANTS, CARDIOVERSION, dialyiss cath inserted Past Anesthesia/Blood Transfusion Reactions: No Reported Reaction Additional Past Anesthesia/Blood Transfusion Reaction / Comment(s): past blood transfusions-no reaction Smoking Status: Former smoker - Past Family History Mother Additional Family Medical History / Comment(s): Mother in her 80s from abdominal aortic aneurysm. Father Family Medical History: Myocardial Infarction ([place]) Additional Family Medical History / Comment(s): Father at age 52 from acute [place]. Patient has 1 brother that is healthy. General Exam General appearance: alert, in no apparent distress Head exam: Present: atraumatic, normocephalic, normal inspection Eye exam: Present: normal appearance, PERRL, EOMI. Absent: scleral icterus, conjunctival injection, periorbital swelling ENT exam: Present: normal exam, mucous membranes moist Neck exam: Present: normal inspection. Absent: tenderness, meningismus, lymphadenopathy Respiratory exam: Present: wheezes, accessory muscle use, decreased breath sounds, prolonged expiratory. Absent: respiratory distress, rales, rhonchi, stridor Cardiovascular Exam: Present: regular rate, normal rhythm, normal heart sounds. Absent: systolic murmur, diastolic murmur, rubs, gallop, clicks GI/Abdominal exam: Present: soft, normal bowel sounds. Absent: distended, tenderness, guarding, rebound, rigid Extremities exam: Present: normal inspection, full ROM, normal capillary refill. Absent: tenderness, pedal edema, joint swelling, calf tenderness Back exam: Present: normal inspection Neurological exam: Present: alert, oriented X3, CN II-XII intact Psychiatric exam: Present: normal affect, normal mood Skin exam: Present: warm, dry, intact, normal color. Absent: rash Course Vital Signs 03/05/18 03/05/18 03/05/18 16:55 17:58 18:26 Temperature 98.8 F Pulse Rate 73 Respiratory 22 22 20 Rate Blood Pressure 143/72 O2 Sat by Pulse 98 100 Oximetry - Reevaluation(s) Reevaluation #1: 03/05/18 18:35 Medical records thoroughly reviewed multiple hospital admissions for same Reevaluation #2: 03/05/18 18:35 Patient states she is severely weak unable to ambulate Medical Decision Making - Medical Decision Making 72 female the ER for evaluation of weakness, anemia, acute on chronic renal failure dehydration overload. CHF on x-ray with hypoxia and shortness of breath - Lab Data Result diagrams: 03/05/18 17:15 03/05/18 17:15 Lab Results 03/05/18 03/05/18 03/05/18 Range/Units 17:15 17:15 17:15 WBC 23.9 H (3.8-10.6) k/uL RBC 2.38 L (3.80-5.40) m/uL Hgb 7.2 L (11.4-16.0) gm/dL Hct 23.2 L (34.0-46.0) % MCV 97.7 (80.0-100.0) fL MCH 30.1 (25.0-35.0) pg MCHC 30.9 L (31.0-37.0) g/dL RDW 17.9 H (11.5-15.5) % Plt Count 306 (150-450) k/uL Neutrophils % 94 % Lymphocytes % 1 % Monocytes % 3 % Eosinophils % 0 % Basophils % 0 % Neutrophils # 22.4 H (1.3-7.7) k/uL Lymphocytes # 0.2 L (1.0-4.8) k/uL Monocytes # 0.8 (0-1.0) k/uL Eosinophils # 0.1 (0-0.7) k/uL Basophils # 0.1 (0-0.2) k/uL Hypochromasia Slight Anisocytosis Slight Macrocytosis Slight PT (9.0-12.0) sec INR (<1.2) APTT (22.0-30.0) sec Sodium 134 L (137-145) mmol/L Potassium 3.4 L (3.5-5.1) mmol/L Chloride 96 L (98-107) mmol/L Carbon Dioxide 31 H (22-30) mmol/L Anion Gap 7 mmol/L BUN 12 (7-17) mg/dL Creatinine 1.59 H (0.52-1.04) mg/dL Est GFR (CKD-EPI)AfAm 37 (>60 ml/min/1.73 sqM) Est GFR (CKD-EPI)NonAf 32 (>60 ml/min/1.73 sqM) Glucose 89 (74-99) mg/dL Calcium 8.3 L (8.4-10.2) mg/dL Magnesium 1.8 (1.6-2.3) mg/dL Total Bilirubin 0.7 (0.2-1.3) mg/dL AST 29 (14-36) U/L ALT 25 (9-52) U/L Alkaline Phosphatase 71 (38-126) U/L Total Creatine Kinase <20 L (30-135) U/L CK-MB (CK-2) 0.5 (0.0-2.4) ng/mL CK-MB (CK-2) Rel Index Troponin I 0.012 (0.000-0.034) ng/mL NT-Pro-B Natriuret Pep pg/mL Total Protein 5.5 L (6.3-8.2) g/dL Albumin 2.7 L (3.5-5.0) g/dL 03/05/18 03/05/18 Range/Units 17:15 17:15 WBC (3.8-10.6) k/uL RBC (3.80-5.40) m/uL Hgb (11.4-16.0) gm/dL Hct (34.0-46.0) % MCV (80.0-100.0) fL MCH (25.0-35.0) pg MCHC (31.0-37.0) g/dL RDW (11.5-15.5) % Plt Count (150-450) k/uL Neutrophils % % Lymphocytes % % Monocytes % % Eosinophils % % Basophils % % Neutrophils # (1.3-7.7) k/uL Lymphocytes # (1.0-4.8) k/uL Monocytes # (0-1.0) k/uL Eosinophils # (0-0.7) k/uL Basophils # (0-0.2) k/uL Hypochromasia Anisocytosis Macrocytosis PT 10.5 (9.0-12.0) sec INR 1.1 (<1.2) APTT 32.0 H (22.0-30.0) sec Sodium (137-145) mmol/L Potassium (3.5-5.1) mmol/L Chloride (98-107) mmol/L Carbon Dioxide (22-30) mmol/L Anion Gap mmol/L BUN (7-17) mg/dL Creatinine (0.52-1.04) mg/dL Est GFR (CKD-EPI)AfAm (>60 ml/min/1.73 sqM) Est GFR (CKD-EPI)NonAf (>60 ml/min/1.73 sqM) Glucose (74-99) mg/dL Calcium (8.4-10.2) mg/dL Magnesium (1.6-2.3) mg/dL Total Bilirubin (0.2-1.3) mg/dL AST (14-36) U/L ALT (9-52) U/L Alkaline Phosphatase (38-126) U/L Total Creatine Kinase (30-135) U/L CK-MB (CK-2) (0.0-2.4) ng/mL CK-MB (CK-2) Rel Index Troponin I (0.000-0.034) ng/mL NT-Pro-B Natriuret Pep 31619 pg/mL Total Protein (6.3-8.2) g/dL Albumin (3.5-5.0) g/dL - EKG Data -: EKG Interpreted by Me (EKG shows sinus rhythm rate of 90, IA 174, QRS 80, QTC 423) - Radiology Data Radiology results: report reviewed (Chest x-ray positive for CHF), image reviewed Disposition Clinical Impression: CHF (congestive heart failure), Status asthmaticus, Fluid overload, Pneumonia, Acute exacerbation of chronic obstructive airways disease Disposition: ADMITTED IP TO THIS HOSP Condition: Fair Is patient prescribed a controlled substance at d/c from ED?: No Referrals: Soren Desai MD [Primary Care Provider] - 1-2 days
[2018-03-05] MEDS ORDERED: SODIUM CHLORIDE 0.9% 1,000 ML IV STA (17:43)
[2018-03-05] MEDS ORDERED: IPRATROPIUM-ALBUTEROL 3 ML NEB INHALATION STA (17:43)
[2018-03-05] MEDS ORDERED: methylPREDNISolone SOD SUCCI 125 MG/2 ML VIAL IV STA (17:43)
[2018-03-05 17:59] LABS: Anisocytosis Slight; Basophils # (A) 0.1 k/uL (0-0.2); Basophils % (A) 0 %; Eosinophils # (A) 0.1 k/uL (0-0.7); Eosinophils % (A) 0 %; HCT 23.2 % (34.0-46.0); HGB 7.2 gm/dL (11.4-16.0); Hypochromasia Slight; Lymphocytes # (A) 0.2 k/uL (1.0-4.8); Lymphocytes % (A) 1 %; MCH 30.1 pg (25.0-35.0); MCHC 30.9 g/dL (31.0-37.0); MCV 97.7 fL (80.0-100.0); Macrocytosis Slight; Mean Platelet Volume 7.1; Monocytes # (A) 0.8 k/uL (0-1.0); Monocytes % (A) 3 %; Neutrophils # (A) 22.4 k/uL (1.3-7.7); Neutrophils % (A) 94 %; Platelet Count 306 k/uL (150-450); RBC 2.38 m/uL (3.80-5.40); RDW 17.9 % (11.5-15.5); WBC 23.9 k/uL (3.8-10.6)
[2018-03-05 18:07] LABS: INR 1.1 (<1.2); Prothrombin Time 10.5 sec (9.0-12.0)
[2018-03-05 18:10] LABS: Albumin 2.7 g/dL (3.5-5.0); Calcium 8.3 mg/dL (8.4-10.2); Magnesium 1.8 mg/dL (1.6-2.3); Potassium 3.4 mmol/L (3.5-5.1); Total Bilirubin 0.7 mg/dL (0.2-1.3); Total Protein 5.5 g/dL (6.3-8.2)
[2018-03-05 18:18] LABS: Creatine Kinase <20 U/L (30-135)
[2018-03-05 18:31] LABS: Creatine Kinase MB 0.5 ng/mL (0.0-2.4); Troponin I 0.012 ng/mL (0.000-0.034)
--- NOTE | 2018-03-05 18:59 | XR ---
EXAMINATION TYPE: XR chest 2V DATE OF EXAM: 03/05/2018 COMPARISON: 02/27/2018 HISTORY: Short of breath TECHNIQUE: Frontal and lateral views of the chest are obtained. FINDINGS: There is some patchy right upper lobe infiltrate. There is no heart failure. Heart is slig htly enlarged. There is right central venous catheter with tip in the right atrium. There is no pneum othorax. There are chest leads. There is coarsening of pulmonary interstitial markings. IMPRESSION: Pulmonary fibrosis. Right upper lobe pneumonia unchanged. No heart failure.
[2018-03-05] MEDS: IPRATROPIUM-ALBUTEROL 3 ML NEB INHALATION SCH (21:24)
[2018-03-05] MEDS: APIXABAN 2.5 MG TABLET PO SCH (21:31)
[2018-03-05] MEDS: METOPROLOL TARTRATE 50 MG TAB PO SCH (21:31)
[2018-03-05] MEDS: hydrALAZINE HCL 25 MG TAB PO SCH (21:31)
[2018-03-05] MEDS: SERTRALINE 50 MG TAB PO SCH (21:32)
[2018-03-05] MEDS: INSULIN ASPART 100 UNIT/ML 1 ML 10 ML VIAL SQ SCH (21:44)
[2018-03-06] MEDS: methylPREDNISolone SOD SUCCI 125 MG/2 ML VIAL IV SCH ×5 (00:36→23:25)
--- NOTE | 2018-03-06 00:37 | HP ---
HISTORY AND PHYSICAL DATE OF SERVICE: 03/05/2018 CHIEF COMPLAINT: Shortness of breath. HISTORY OF PRESENT ILLNESS: This 72-year-old woman with a past medical history of asthma, CHF, history of DJD, history of pneumonia, being for Dr. Desai in the outpatient setting, not feeling well over the past several days. Patient had increased shortness of breath and weak, unable to walk. The patient was getting some help from her , but because of increasing difficulty, the patient came to [facility] and was admitted for evaluation and treatment. There is no history of fever, rigors. No history of headache, loss of conscious, or seizures. PAST HEALTH: Asthma, CHF, CVA, TIA, hypertension, DJD. MEDICATIONS: 1. Hydralazine 75 mg t.i.d. 2. Norvasc 10 mg daily. 3. Zoloft 250 mg at bedtime. 4. Lopressor 850 mg b.i.d. 5. Lasix 80 mg b.i.d. 6. Ceftin 250 mg. 7. PhosLo 667 t.i.d. 8. Symbicort 4.5 two puffs b.i.d. 9. Eliquis 2.5 mg b.i.d. 10.Cordarone 100 mg p.o. daily. 11. 100 mg. 12.Ventolin 2.5 q.i.d. p.r.n. ALLERGIES: None. FAMILY HISTORY: History of myocardial infarction in the family and aneurysm in the family. SOCIAL HISTORY: Remote history of smoking. No history of current smoking or alcohol intake. REVIEW OF SYSTEMS: ENT: Diminished hearing or vision. CARDIOVASCULAR: None. RESPIRATORY: As mentioned earlier. GI: No nausea or vomiting. : No dysuria. NERVOUS SYSTEM: No numbness or weakness. ALLERGY: None. MUSCULOSKELETAL: As mentioned. HEMATOLOGY: No history of anemia. ENDOCRINE: No history of diabetes or hypothyroidism. CONSTITUTIONAL: As mentioned. DERMATOLOGY: Negative. RHEUMATOID: Negative. PSYCHIATRY: As mentioned. PHYSICAL EXAMINATION: Alert, oriented x3. Pulse 71, blood pressure 151/70, respirations 16, temperature 97.7, pulse ox 94% on 2 L. HEENT: Conjunctivae normal. Oral mucosa moist. NECK: No jugular venous distention. No lymph node enlargement. CARDIOVASCULAR: S1 and S2 muffled. LUNGS: Breath sounds diminished at the bases. Few scattered rhonchi. Expiratory wheezing also present. ABDOMEN: Soft, nontender. No mass palpable. LEGS: No edema, no swelling. NERVOUS SYSTEM: Higher functions as mentioned. Moves all extremities equally. No lymphadenopathy. SKIN: No rash. LAB STUDIES: WBC 23, hemoglobin 7.2, sodium 132, potassium 3.4. ASSESSMENT: 1. Shortness of breath, multifactorial. 2. Chronic obstructive pulmonary disease, acute exacerbation, as well as acute bronchial asthma acute exacerbation. 3. Right mid lung tumor. 4. Atrial fibrillation. 5. Hypertension. 6. Hyperlipidemia. 7. Increased WBC. 8. Acute on chronic kidney disease. 9. Hyperlipidemia. 10.Rheumatoid arthritis. 11.Hyponatremia. 12.History of congestive heart failure. 13.Anemia. 14.Hypokalemia. PLAN AND DISCUSSION: This 72-year-old woman presented with multiple complex medical issues, we will monitor the patient closely. Continue the current medications and symptomatic treatment. Will initiate home medications. Otherwise, we will also get a PT and OT evaluation and evaluate for ECF rehab also. The prognosis is guarded because of multiple complex medical issues. Further recommendations to follow. Please note, the patient has been recently admitted to the hospital. Further recommendations to follow. See orders for further details. We will consult Cardiology and Pulmonology also. MMODL / IJN: [id number] / [place]
[2018-03-06] MEDS: ZOLPIDEM 5 MG TAB PO SCH ×2 (00:47→23:26)
[2018-03-06] MEDS: IPRATROPIUM-ALBUTEROL 3 ML NEB INHALATION SCH ×4 (07:21→19:17)
[2018-03-06] MEDS: SYMBICORT 160-4.5 MCG INHALER INHALATION SCH ×2 (07:21→19:17)
[2018-03-06] MEDS ORDERED: PNEUMOCOCCAL VACC-PNEUMOVAX 23 25 MCG/0.5 ML VIAL IM ONE (07:30)
[2018-03-06 07:36] LABS: Glucose,Whole Blood 135 mg/dL (75-99)
[2018-03-06] MEDS: INSULIN ASPART 100 UNIT/ML 1 ML 10 ML VIAL SQ SCH ×4 (08:27→20:40)
[2018-03-06] MEDS: amLODIPine 10 MG TAB PO SCH (08:28)
[2018-03-06] MEDS: hydrALAZINE HCL 25 MG TAB PO SCH ×3 (08:28→20:39)
[2018-03-06] MEDS: APIXABAN 2.5 MG TABLET PO SCH ×2 (08:28→20:40)
[2018-03-06] MEDS: CALCIUM ACETATE 667 MG CAP PO SCH ×3 (08:28→16:29)
[2018-03-06] MEDS: METOPROLOL TARTRATE 50 MG TAB PO SCH ×2 (08:28→20:40)
[2018-03-06] MEDS: AMIODARONE 100 MG TAB PO SCH (08:28)
[2018-03-06] MEDS: ALLOPURINOL 100 MG TAB PO SCH (08:28)
[2018-03-06] MEDS ORDERED: ENOXAPARIN 40 MG/0.4 ML SYRINGE SQ SCH (09:00)
[2018-03-06 09:07] LABS: Anisocytosis Slight; Basophils % (A) 0 %; Eosinophils % (A) 0 %; HCT 25.8 % (34.0-46.0); HGB 8.2 gm/dL (11.4-16.0); Hypochromasia Moderate; Lymphocytes # (A) 0.5 k/uL (1.0-4.8); Lymphocytes % (A) 2 %; MCHC 31.9 g/dL (31.0-37.0); MCV 100.5 fL (80.0-100.0); Macrocytosis Slight; Mean Platelet Volume 7.1; Monocytes # (A) 0.5 k/uL (0-1.0); Monocytes % (A) 2 %; Neutrophils # (A) 20.4 k/uL (1.3-7.7); Neutrophils % (A) 95 %; Platelet Count 344 k/uL (150-450); RBC 2.57 m/uL (3.80-5.40); RDW 18.1 % (11.5-15.5); WBC 21.4 k/uL (3.8-10.6)
[2018-03-06 09:09] LABS: Calcium 8.5 mg/dL (8.4-10.2); Potassium 3.6 mmol/L (3.5-5.1)
--- NOTE | 2018-03-06 10:15 | P.NPCON ---
History of Present Illness - Reason for Consult end stage renal disease - History of Present Illness Reason for consultation: End-stage renal disease History of present illness: Patient is a 72-year-old female seen in renal consultation for end-stage renal disease. Etiology is cardiorenal syndrome. Patient was attempted to be taken off dialysis but went into volume overload and dialysis had to be resumed. She is now maintained on hemodialysis on a Thursday schedule. She did complete hemodialysis yesterday. Patient was just discharged to rehab facility 2 days ago but didn't like the facility and decided to leave. Patient states she's been feeling weak and also admits to some dyspnea. She was recently treated with antibiotics for pneumonia. No fever or chills. Hemodynamically stable. Does admit to a cough. Vital signs are stable. General: The patient appeared well nourished and normally developed. HEENT: Head exam is unremarkable. Neck is without jugular venous distension. LUNGS: Breath sounds decreased. HEART: Rate and Rhythm are regular. First and second heart sounds normal. No murmurs, rubs or gallops. ABDOMEN: Abdominal exam reveals normal bowel sounds. Non-tender and non- distended. No evidence of peritonitis. EXTREMITITES: No clubbing, cyanosis, or edema. Past Medical History Past Medical History: Asthma, Heart Failure, CVA/TIA, Hypertension, Osteoarthritis (OA), Pneumonia Additional Past Medical History / Comment(s): 03-05-18 pt would like a pne vaccine if ok with dr before going home. cva 2005 no residual problems,irreg heart rate,SOB, chf, recent arf had dialysis cath inserted 02-02-18 gets dialysis thu-thu-thu. History of Any Multi-Drug Resistant Organisms: None Reported Past Surgical History: Tonsillectomy Additional Past Surgical History / Comment(s): ORIF rt ankle-[address], IUD removal, lumbar steroid injections, DENTAL IMPLANTS, CARDIOVERSION, dialysis cath inserted Past Anesthesia/Blood Transfusion Reactions: No Reported Reaction Additional Past Anesthesia/Blood Transfusion Reaction / Comment(s): past blood transfusions-no reaction Past Psychological History: No Psychological Hx Reported Smoking Status: Former smoker Past Alcohol Use History: None Reported Additional Past Alcohol Use History / Comment(s): Patient smoked one and half packs of cigarettes per day started in 1973 and quit 2007. Patient used to drink heavily-none now Past Drug Use History: None Reported - Past Family History Mother Additional Family Medical History / Comment(s): Mother in her 80s from abdominal aortic aneurysm. Father Family Medical History: Myocardial Infarction (SD) Additional Family Medical History / Comment(s): Father at age 52 from acute SD. Patient has 1 brother that is healthy. Medications and Allergies Home Medications Medication Instructions Recorded Confirmed Type Sertraline HCl [Zoloft] 50 mg PO HS 04/30/17 03/05/18 History amLODIPine [Norvasc] 10 mg PO DAILY tab 07/16/17 03/05/18 Rx Allopurinol [Zyloprim] 100 mg PO DAILY 09/09/17 03/05/18 History Amiodarone [Cordarone] 100 mg PO DAILY tab 02/06/18 03/05/18 Rx Apixaban [Eliquis] 2.5 mg PO BID #60 tablet 02/06/18 03/05/18 Rx Calcium Acetate [PhosLo] 667 mg PO TID-W/MEALS #90 cap 02/06/18 03/05/18 Rx Furosemide [Lasix] 80 mg PO BID@0900,1600 #60 tab 02/06/18 03/05/18 Rx Metoprolol Tartrate [Lopressor] 50 mg PO BID #60 tab 02/06/18 03/05/18 Rx Budesonide-Formot 160-4.5 Mcg 2 puff INHALATION RT-BID 02/25/18 03/05/18 History [Symbicort 160-4.5 Mcg Inhaler] Cefuroxime [Ceftin] 250 mg PO DAILY #5 tab 03/02/18 03/05/18 Rx hydrALAZINE HCL [Apresoline] 75 mg PO TID tab 03/04/18 03/05/18 Rx Albuterol Nebulized [Ventolin 2.5 mg INHALATION RT-QID PRN 03/05/18 03/05/18 History Nebulized] Allergies Allergy/AdvReac Type Severity Reaction Status Date / Time No Known Allergies Allergy Verified 03/05/18 17:05 Physical Exam Vitals: Vital Signs Temp Pulse Pulse Resp BP BP Pulse Ox 03/06/18 07:36 72 03/06/18 07:24 68 98 03/06/18 07:11 98.4 F 72 16 140/72 98 03/05/18 21:41 97.7 F 16 151/70 95 03/05/18 18:58 71 03/05/18 18:42 71 03/05/18 18:26 20 100 03/05/18 17:58 22 03/05/18 16:55 98.8 F 73 22 143/72 98 Intake and Output 03/05/18 03/06/18 03/06/18 22:59 06:59 14:59 Intake Total 500 100 Balance 500 100 Intake: Oral 500 100 Other: Voiding Method Bedside Commode Bedpan # Voids 1 0 # Bowel Movements 1 0 Weight 59 kg Results - Lab Results Most recent lab results Calcium 8.5 mg/dL (8.4-10.2) 03/06/18 08:06 Magnesium 1.8 mg/dL (1.6-2.3) 03/05/18 17:15 03/06/18 08:06 03/06/18 08:06 Assessment and Plan Plan: Assessment: 1. End-stage renal disease maintained on hemodialysis on a Thursday schedule. 2. Diastolic CHF. 3. Chronic kidney disease mineral bone disease maintained on PhosLo. 4. Hypertension with chronic kidney disease. Controlled. 5. Pneumonia maintained on antibiotics. 6. Anemia of chronic kidney disease. Plan: 2 hour hemodialysis treatment today. Will try for 2 L UF. Add Aranesp. Check phosphorus level. Thank you for the consultation. I will continue to follow the patient with you during her hospital stay.
[2018-03-06] MEDS ORDERED: DARBEPOETIN ALFA 40 MCG/0.4 ML SYRINGE SQ SCH (11:00)
[2018-03-06 12:32] LABS: Glucose,Whole Blood 264 mg/dL (75-99)
--- NOTE | 2018-03-06 13:07 | P.CRDCN ---
History of Present Illness Consult date: 03/06/18 Chief complaint: Shortness of breath History of present illness: This is a pleasant 72-year-old female patient who sees Dr. Curry in the office as an outpatient with a past medical history significant for paroxysmal atrial fibrillation currently on oral anticoagulation, chronic diastolic congestive heart failure, end-stage renal disease on hemodialysis, hypertension, dyslipidemia, and history of TIA, presented to the hospital complaining of shortness of breath. The patient does have chronic exertional dyspnea related to COPD and chronic diastolic congestive heart failure, but for the last several days, she has been more short of breath with exertion. No orthopnea. No PND. No bilateral lower extremities edema. No symptoms of chest pain or discomfort. No dizziness or lightheadedness. No fever or chills and no cough. The patient underwent a workup including EKG showing sinus rhythm was nonspecific changes. The chest x-ray did not show any acute abnormalities. The BNP came in to be severe lead elevated around 2600. The patient is end-stage renal disease currently on hemodialysis 3 times a week. One extra hemodialysis was scheduled for the patient to go today. She does not make urine. Past Medical History Past Medical History: Asthma, Heart Failure, CVA/TIA, Hypertension, Osteoarthritis (OA), Pneumonia Additional Past Medical History / Comment(s): 03-05-18 pt would like a pne vaccine if ok with dr before going home. cva 2005 no residual problems,irreg heart rate,SOB, chf, recent arf had dialysis cath inserted 02-02-18 gets dialysis thu-thu-thu. History of Any Multi-Drug Resistant Organisms: None Reported Past Surgical History: Tonsillectomy Additional Past Surgical History / Comment(s): ORIF rt ankle-[address], IUD removal, lumbar steroid injections, DENTAL IMPLANTS, CARDIOVERSION, dialysis cath inserted Past Anesthesia/Blood Transfusion Reactions: No Reported Reaction Additional Past Anesthesia/Blood Transfusion Reaction / Comment(s): past blood transfusions-no reaction Past Psychological History: No Psychological Hx Reported Smoking Status: Former smoker Past Alcohol Use History: None Reported Additional Past Alcohol Use History / Comment(s): Patient smoked one and half packs of cigarettes per day started in 1973 and quit 2007. Patient used to drink heavily-none now Past Drug Use History: None Reported - Past Family History Mother Additional Family Medical History / Comment(s): Mother in her 80s from abdominal aortic aneurysm. Father Family Medical History: Myocardial Infarction (MS) Additional Family Medical History / Comment(s): Father at age 52 from acute MS. Patient has 1 brother that is healthy. Medications and Allergies Home Medications Medication Instructions Recorded Confirmed Type Sertraline HCl [Zoloft] 50 mg PO HS 04/30/17 03/05/18 History amLODIPine [Norvasc] 10 mg PO DAILY tab 07/16/17 03/05/18 Rx Allopurinol [Zyloprim] 100 mg PO DAILY 09/09/17 03/05/18 History Amiodarone [Cordarone] 100 mg PO DAILY tab 02/06/18 03/05/18 Rx Apixaban [Eliquis] 2.5 mg PO BID #60 tablet 02/06/18 03/05/18 Rx Calcium Acetate [PhosLo] 667 mg PO TID-W/MEALS #90 cap 02/06/18 03/05/18 Rx Furosemide [Lasix] 80 mg PO BID@0900,1600 #60 tab 02/06/18 03/05/18 Rx Metoprolol Tartrate [Lopressor] 50 mg PO BID #60 tab 02/06/18 03/05/18 Rx Budesonide-Formot 160-4.5 Mcg 2 puff INHALATION RT-BID 02/25/18 03/05/18 History [Symbicort 160-4.5 Mcg Inhaler] Cefuroxime [Ceftin] 250 mg PO DAILY #5 tab 03/02/18 03/05/18 Rx hydrALAZINE HCL [Apresoline] 75 mg PO TID tab 03/04/18 03/05/18 Rx Albuterol Nebulized [Ventolin 2.5 mg INHALATION RT-QID PRN 03/05/18 03/05/18 History Nebulized] Allergies Allergy/AdvReac Type Severity Reaction Status Date / Time No Known Allergies Allergy Verified 03/05/18 17:05 Physical Exam Vitals: Vital Signs Temp Pulse Pulse Resp BP BP Pulse Ox 03/06/18 11:26 74 03/06/18 11:16 70 03/06/18 07:36 72 03/06/18 07:24 68 98 03/06/18 07:11 98.4 F 72 16 140/72 98 03/05/18 21:41 97.7 F 16 151/70 95 03/05/18 18:58 71 03/05/18 18:42 71 03/05/18 18:26 20 100 03/05/18 17:58 22 03/05/18 16:55 98.8 F 73 22 143/72 98 Intake and Output 03/05/18 03/06/18 03/06/18 22:59 06:59 14:59 Intake Total 500 100 Balance 500 100 Intake: Oral 500 100 Other: Voiding Method Bedside Commode Bedpan # Voids 1 0 1 # Bowel Movements 1 0 2 Weight 59 kg - Constitutional General appearance: no acute distress - Respiratory Respiratory: bilateral: CTA - Cardiovascular Rhythm: regular Heart sounds: normal: S1, S2 Abnormal Heart Sounds: systolic murmur Results 03/06/18 08:06 03/06/18 08:06 Cardiac Enzymes 03/05/18 03/05/18 Range/Units 17:15 17:15 AST 29 (14-36) U/L CK-MB (CK-2) 0.5 (0.0-2.4) ng/mL Troponin I 0.012 (0.000-0.034) ng/mL Coagulation 03/05/18 Range/Units 17:15 PT 10.5 (9.0-12.0) sec APTT 32.0 H (22.0-30.0) sec CBC 03/05/18 03/06/18 Range/Units 17:15 08:06 WBC 23.9 H 21.4 H (3.8-10.6) k/uL RBC 2.38 L 2.57 L (3.80-5.40) m/uL Hgb 7.2 L 8.2 L (11.4-16.0) gm/dL Hct 23.2 L 25.8 L (34.0-46.0) % Plt Count 306 344 (150-450) k/uL Comprehensive Metabolic Panel 03/05/18 03/06/18 Range/Units 17:15 08:06 Sodium 134 L 134 L (137-145) mmol/L Potassium 3.4 L 3.6 (3.5-5.1) mmol/L Chloride 96 L 94 L (98-107) mmol/L Carbon Dioxide 31 H 31 H (22-30) mmol/L BUN 12 17 (7-17) mg/dL Creatinine 1.59 H 2.34 H (0.52-1.04) mg/dL Glucose 89 130 H (74-99) mg/dL Calcium 8.3 L 8.5 (8.4-10.2) mg/dL AST 29 (14-36) U/L ALT 25 (9-52) U/L Alkaline Phosphatase 71 (38-126) U/L Total Protein 5.5 L (6.3-8.2) g/dL Albumin 2.7 L (3.5-5.0) g/dL Current Medications Generic Name Dose Route Start Last Admin Trade Name Freq PRN Reason Stop Dose Admin Albuterol/Ipratropium 3 ml 03/05/18 20:00 03/06/18 11:14 Duoneb 0.5 Mg-3 Mg/3 Ml Soln INHALATION 3 ml RT-QID SIMON Administration Allopurinol 100 mg 03/06/18 09:00 03/06/18 08:28 Zyloprim PO 100 mg DAILY SIMON Administration Amiodarone HCl 100 mg 03/06/18 09:00 03/06/18 08:28 Cordarone PO 100 mg DAILY SIMON Administration Amlodipine Besylate 10 mg 03/06/18 09:00 03/06/18 08:28 Norvasc PO 10 mg DAILY SIMON Administration Apixaban 2.5 mg 03/05/18 21:00 03/06/18 08:28 Eliquis PO 2.5 mg BID SIMON Administration Budesonide/Formoterol Fumarate 2 puff 03/06/18 08:00 03/06/18 07:21 Symbicort 160-4.5 Mcg Inhaler INHALATION 2 puff RT-BID [facility] Administration Calcium Acetate 667 mg 03/06/18 07:30 03/06/18 08:28 Phoslo PO 667 mg TID-W/MEALS [facility] Administration Darbepoetin Zhou 40 mcg 03/06/18 11:00 Aranesp SQ Q7D [facility] Hydralazine HCl 75 mg 03/05/18 22:00 03/06/18 08:28 Apresoline PO 75 mg TID SIMON Administration Ceftriaxone Sodium 1,000 mg/ 50 mls @ 100 mls/hr 03/05/18 20:15 03/06/18 08: 27 Sodium Chloride IVPB 100 mls/hr Q24HR SIMON Administration Insulin Aspart 0 unit 03/05/18 21:00 03/06/18 08:27 Novolog SQ 1 unit ACHS SIMON Administration Protocol Methylprednisolone Sodium Succinate 60 mg 03/06/18 00:00 03/06/18 05:51 Solu-Medrol IV 60 mg Q6HR SIMON Administration Metoprolol Tartrate 50 mg 03/05/18 21:00 03/06/18 08:28 Lopressor PO 50 mg BID SIMON Administration Sertraline HCl 50 mg 03/05/18 21:00 03/05/18 21:32 Zoloft PO 50 mg HS SIMON Administration Zolpidem Tartrate 5 mg 03/05/18 21:30 03/06/18 00:47 Ambien PO 5 mg HS SIMON Administration Intake and Output 03/05/18 03/06/18 03/06/18 22:59 06:59 14:59 Intake Total 500 100 Balance 500 100 Intake: Oral 500 100 Other: Voiding Method Bedside Commode Bedpan # Voids 1 0 1 # Bowel Movements 1 0 2 Weight 59 kg 03/06/18 08:06 03/06/18 08:06 Assessment and Plan Assessment: Assessment #1 shortness of breath, likely to be multifactorial and related to congestive heart failure exacerbation as well as COPD exacerbation #2 congestive heart failure exacerbation secondary to diastole dysfunction #3 COPD exacerbation #4 end-stage renal disease on dialysis #5 paroxysmal atrial fibrillation #6 hypertension #7 multiple comorbid conditions Plan #1 the patient is going to have an extra hemodialysis later on today #2 hemodynamically she continues to be stable #3 I would continue the current medical regimen #4 follow-up with the patient. Thank you for allowing us participate in her care and we'll continue following up with the patient
[2018-03-06 17:09] LABS: Iron Saturation 19.61 (12.00-45.00)
[2018-03-06 17:26] LABS: Glucose,Whole Blood 144 mg/dL (75-99)
[2018-03-06 19:43] LABS: Hemoglobin A1C 4.2 % (4.0-6.0)
[2018-03-06] MEDS: SERTRALINE 50 MG TAB PO SCH (20:40)
[2018-03-06 20:52] LABS: Glucose,Whole Blood 230 mg/dL (75-99)
--- NOTE | 2018-03-06 21:08 | PN ---
PROGRESS NOTE DATE OF SERVICE: 03/06/2018 This 72-year-old woman who presented with multiple complex medical issues returned from [facility]. At this time apparently patient did not like the ECF and the patient is extremely weak at this time. The patient also had shortness with multifactorial with COPD and bronchial asthma as well. Patient is being closely monitored. PAST MEDICAL HISTORY: Reviewed. REVIEW OF SYSTEM: CARDIOVASCULAR: No angina. RESPIRATORY: As mentioned earlier. GI: As mentioned earlier. : No dysuria. NERVOUS SYSTEM: No numbness or weakness. The creatinine is worsening at 2.3. CURRENT MEDICATIONS: 1. DuoNeb q.i.d. and p.r.n. 2. Zyloprim 100 mg p.o. daily. 3. Cordarone 100 mg b.i.d. 4. Norvasc 10 mg b.i.d. 5. Eliquis 2.5 mg b.i.d. 6. Symbicort 160/4.5 two puffs b.i.d. 7. PhosLo 667 t.i.d. 8. Rocephin 1 g daily. 9. 40 mg subcu daily. 10.Apresoline 75 mg p.o. t.i.d. 11.NovoLog scale. 12.Solu-Medrol 60 IV q.6h. 13.Lopressor. 14.Zoloft. 15.Ambien. PHYSICAL EXAM: Patient is alert, oriented x3. The pulse is 72, blood pressure 140/72, respiration 16, temperature 98.4, pulse ox 98% on 2 L. HEENT: Oral mucosa moist. Neck is no jugular venous distention. No carotid bruit. No lymph node enlargement. CARDIOVASCULAR: S1, S2. RESPIRATORY: Breath sounds diminished in the bases. Bilateral scattered rhonchi. Breathing efforts are markedly increased. ABDOMEN: Soft, nontender. LEGS: No edema. NERVOUS SYSTEM: Diffusely weak. LABS: WBC 21.4, hemoglobin is 8.2. Sodium 134, potassium 3.6, glucose 264. ASSESSMENT: 1. Shortness of breath multifactorial, possible chronic obstructive pulmonary disease acute exacerbation as well as acute bronchial asthma acute exacerbation with acute purulent tracheobronchitis with congestive heart failure acute exacerbation as well. 2. Right mid lung tumor. 3. Atrial fibrillation. 4. Hypertension. 5. Hyperlipidemia. 6. Increased WBC. 7. Severe gait dysfunction with acute on chronic kidney disease. 8. Hyperlipidemia. 9. History of rheumatoid arthritis. 10.Hyponatremia. 11.History of congestive heart failure. 12.Anemia. 13.Hypokalemia. RECOMMENDATION: In this 72-year-old woman who presented with multiple complex medical issues, we will monitor the patient closely. Continue the current management and symptomatic treatment. Nephrology and Cardiology evaluation. PT, OT evaluation, possible ECF rehab. Continue the hemodialysis. We will continue to monitor and repeat labs will be ordered. Monitor blood sugars closely. PT, OT and ECF also considered. Business Solutions Director is also consulted at this time. Guarded prognosis. Further recommendations to follow. MMODL / IJN: [id number] / [place]
[2018-03-07] MEDS: methylPREDNISolone SOD SUCCI 125 MG/2 ML VIAL IV SCH ×4 (05:39→23:43)
[2018-03-07] MEDS: IPRATROPIUM-ALBUTEROL 3 ML NEB INHALATION SCH ×4 (07:34→19:23)
[2018-03-07] MEDS: SYMBICORT 160-4.5 MCG INHALER INHALATION SCH ×2 (07:34→19:23)
[2018-03-07 08:02] LABS: Glucose,Whole Blood 149 mg/dL (75-99)
[2018-03-07] MEDS: INSULIN ASPART 100 UNIT/ML 1 ML 10 ML VIAL SQ SCH ×4 (08:07→22:18)
[2018-03-07] MEDS: CALCIUM ACETATE 667 MG CAP PO SCH ×3 (08:07→18:03)
[2018-03-07] MEDS: ALLOPURINOL 100 MG TAB PO SCH (08:08)
[2018-03-07] MEDS: hydrALAZINE HCL 25 MG TAB PO SCH ×3 (08:09→22:18)
[2018-03-07] MEDS: APIXABAN 2.5 MG TABLET PO SCH ×2 (08:09→22:18)
[2018-03-07] MEDS: AMIODARONE 100 MG TAB PO SCH (08:09)
[2018-03-07] MEDS: amLODIPine 10 MG TAB PO SCH (08:09)
[2018-03-07] MEDS: METOPROLOL TARTRATE 50 MG TAB PO SCH ×2 (08:10→22:17)
--- NOTE | 2018-03-07 09:45 | P.PN ---
Subjective Patient is seen in follow-up for end-stage renal disease. She is maintained on hemodialysis on a Thursday schedule. Currently resting in bed. Has loose bowel movements intermittently. No chest pain or shortness of breath. Hemodynamically stable. Vital signs are stable. General: The patient appeared well nourished and normally developed. HEENT: Head exam is unremarkable. Neck is without jugular venous distension. LUNGS: Lungs are clear to auscultation and percussion. Breath sounds decreased. HEART: Rate and Rhythm are regular. First and second heart sounds normal. No murmurs, rubs or gallops. ABDOMEN: Abdominal exam reveals normal bowel sounds. Non-tender and non- distended. No evidence of peritonitis. EXTREMITITES: No clubbing, cyanosis, or edema. Objective - Vital Signs Vital signs: Vital Signs Temp 97.5 F L 03/07/18 06:25 Pulse 75 03/07/18 07:48 Resp 20 03/07/18 06:25 BP 153/71 03/07/18 06:25 Pulse Ox 94 L 03/07/18 06:25 Intake & Output 03/06/18 03/07/18 03/07/18 18:59 06:59 18:59 Intake Total 100 Balance 100 Weight 55.5 kg Intake: Oral 100 Other: Voiding Method Toilet Toilet # Voids 1 0 # Bowel Movements 2 0 1 - Labs CBC & Chem 7: 03/06/18 08:06 03/06/18 08:06 Labs: Abnormal Lab Results - Last 24 Hours (Table) 03/06/18 03/06/18 03/06/18 Range/Units 08:06 12:29 17:07 POC Glucose (mg/dL) 264 H 144 H (75-99) mg/dL Iron 40 L (50-170) ug/dL TIBC 204 L (228-460) ug/dL Ferritin 1012.6 H (10.0-291.0) ng/mL 03/06/18 03/07/18 Range/Units 20:35 08:00 POC Glucose (mg/dL) 230 H 149 H (75-99) mg/dL Iron (50-170) ug/dL TIBC (228-460) ug/dL Ferritin (10.0-291.0) ng/mL Microbiology - Last 24 Hours (Table) 03/05/18 17:15 Blood Culture - Preliminary Blood No Growth after 24 hours Assessment and Plan Plan: Assessment: 1. End-stage renal disease maintained on hemodialysis on a Thursday schedule. 2. Diastolic CHF. 3. Chronic kidney disease mineral bone disease maintained on PhosLo. 4. Hypertension with chronic kidney disease. Controlled. 5. Pneumonia maintained on antibiotics. 6. Anemia of chronic kidney disease maintained on Aranesp. 7. Dyspnea secondary to CHF and COPD exacerbation. She is also recovering from pneumonia. Plan: Hemodialysis tomorrow.
[2018-03-07] MEDS: SODIUM FERRIC GLUCONAT-SUCROSE 125 MG in SODIUM CHLORIDE 0.9% 100 ML IVPB SCH (11:21)
[2018-03-07 11:56] LABS: Anisocytosis Slight; Basophils % (A) 0 %; Eosinophils % (A) 0 %; HCT 23.7 % (34.0-46.0); HGB 7.4 gm/dL (11.4-16.0); Hypochromasia Slight; Lymphocytes # (A) 0.7 k/uL (1.0-4.8); Lymphocytes % (A) 2 %; MCH 30.9 pg (25.0-35.0); MCHC 31.2 g/dL (31.0-37.0); MCV 99.3 fL (80.0-100.0); Macrocytosis Slight; Mean Platelet Volume 7.2; Monocytes % (A) 3 %; Neutrophils % (A) 94 %; Platelet Count 367 k/uL (150-450); RBC 2.39 m/uL (3.80-5.40); RDW 18.5 % (11.5-15.5); WBC 32.1 k/uL (3.8-10.6)
[2018-03-07 11:58] LABS: Glucose,Whole Blood 193 mg/dL (75-99)
[2018-03-07 12:00] LABS: Calcium 8.7 mg/dL (8.4-10.2); Potassium 3.5 mmol/L (3.5-5.1)
[2018-03-07 12:49] LABS: Poikilocytosis (M) Present; Toxic Granulation Present
--- NOTE | 2018-03-07 14:18 | P.PN ---
Subjective Progress Note Date: 03/07/18 Principal diagnosis: Shortness of breath This is a pleasant 72-year-old female patient who sees Dr. Curry in the office as an outpatient with a past medical history significant for paroxysmal atrial fibrillation currently on oral anticoagulation, chronic diastolic congestive heart failure, end-stage renal disease on hemodialysis, hypertension, dyslipidemia, and history of TIA, presented to the hospital complaining of shortness of breath. The patient does have chronic exertional dyspnea related to COPD and chronic diastolic congestive heart failure, but for the last several days, she has been more short of breath with exertion. No orthopnea. No PND. No bilateral lower extremities edema. No symptoms of chest pain or discomfort. No dizziness or lightheadedness. No fever or chills and no cough. The patient underwent a workup including EKG showing sinus rhythm was nonspecific changes. The chest x-ray did not show any acute abnormalities. The BNP came in to be severe lead elevated around 2600. The patient is end- stage renal disease currently on hemodialysis 3 times a week. I'll follow-up with the patient today, she is feeling overall slightly better in term of shortness of breath. No chest pain or chest discomfort. She underwent hemodialysis yesterday which was an excellent for her. And she is going to have one tomorrow. She remains hemodynamically stable except for the blood pressure being slightly on the higher side. I recommended continue the current medical regimen Objective - Vital Signs Vital signs: Vital Signs Temp 97.5 F L 03/07/18 06:25 Pulse 75 03/07/18 07:48 Resp 20 03/07/18 06:25 BP 153/71 03/07/18 06:25 Pulse Ox 94 L 03/07/18 06:25 Intake & Output 03/06/18 03/07/18 03/07/18 18:59 06:59 18:59 Intake Total 100 Balance 100 Weight 55.5 kg Intake: Oral 100 Other: Voiding Method Toilet Toilet # Voids 1 0 # Bowel Movements 2 0 1 - Constitutional General appearance: Present: no acute distress - Respiratory Respiratory: bilateral: CTA - Cardiovascular Rhythm: regular Heart sounds: normal: S1 Abnormal Heart Sounds: Present: systolic murmur - Labs CBC & Chem 7: 03/07/18 10:50 03/07/18 10:50 Labs: Abnormal Lab Results - Last 24 Hours (Table) 03/06/18 03/06/18 03/06/18 Range/Units 08:06 17:07 20:35 WBC (3.8-10.6) k/uL RBC (3.80-5.40) m/uL Hgb (11.4-16.0) gm/dL Hct (34.0-46.0) % RDW (11.5-15.5) % Neutrophils # (1.3-7.7) k/uL Lymphocytes # (1.0-4.8) k/uL Sodium (137-145) mmol/L Chloride (98-107) mmol/L BUN (7-17) mg/dL Creatinine (0.52-1.04) mg/dL Glucose (74-99) mg/dL POC Glucose (mg/dL) 144 H 230 H (75-99) mg/dL Iron 40 L (50-170) ug/dL TIBC 204 L (228-460) ug/dL Ferritin 1012.6 H (10.0-291.0) ng/mL 03/07/18 03/07/18 03/07/18 Range/Units 08:00 10:50 10:50 WBC 32.1 H (3.8-10.6) k/uL RBC 2.39 L (3.80-5.40) m/uL Hgb 7.4 L (11.4-16.0) gm/dL Hct 23.7 L (34.0-46.0) % RDW 18.5 H (11.5-15.5) % Neutrophils # 30.0 H (1.3-7.7) k/uL Lymphocytes # 0.7 L (1.0-4.8) k/uL Sodium 131 L (137-145) mmol/L Chloride 93 L (98-107) mmol/L BUN 22 H (7-17) mg/dL Creatinine 2.62 H (0.52-1.04) mg/dL Glucose 169 H (74-99) mg/dL POC Glucose (mg/dL) 149 H (75-99) mg/dL Iron (50-170) ug/dL TIBC (228-460) ug/dL Ferritin (10.0-291.0) ng/mL 03/07/18 Range/Units 11:56 WBC (3.8-10.6) k/uL RBC (3.80-5.40) m/uL Hgb (11.4-16.0) gm/dL Hct (34.0-46.0) % RDW (11.5-15.5) % Neutrophils # (1.3-7.7) k/uL Lymphocytes # (1.0-4.8) k/uL Sodium (137-145) mmol/L Chloride (98-107) mmol/L BUN (7-17) mg/dL Creatinine (0.52-1.04) mg/dL Glucose (74-99) mg/dL POC Glucose (mg/dL) 193 H (75-99) mg/dL Iron (50-170) ug/dL TIBC (228-460) ug/dL Ferritin (10.0-291.0) ng/mL Microbiology - Last 24 Hours (Table) 03/05/18 17:15 Blood Culture - Preliminary Blood No Growth after 24 hours Assessment and Plan Assessment: Assessment #1 shortness of breath, likely to be multifactorial and related to congestive heart failure exacerbation as well as COPD exacerbation #2 congestive heart failure exacerbation secondary to diastole dysfunction #3 COPD exacerbation #4 end-stage renal disease on dialysis #5 paroxysmal atrial fibrillation #6 hypertension #7 multiple comorbid conditions Plan #1 continue the current medical regimen #2 hemodynamically she continues to be stable #4 follow-up with the patient on when necessary case.
[2018-03-07 17:20] LABS: Glucose,Whole Blood 120 mg/dL (75-99)
[2018-03-07 20:42] LABS: Glucose,Whole Blood 275 mg/dL (75-99)
--- NOTE | 2018-03-07 20:48 | PN ---
PROGRESS NOTE DATE OF SERVICE: 03/07/2018 This 72-year-old woman was admitted with multiple complex medical issues, including shortness of breath, which is a combination of COPD, CHF acute exacerbation. The patient complaining of tiredness and weakness. Patient also receiving hemodialysis also. No chest pain. No palpitations. No fever. EXAM: Alert and oriented x3. Pulse 75, blood pressure 153/70, respiratory 20, temperature is 97.4, pulse ox 94% on room air. HEENT: Conjunctivae normal. Cardiovascular: S1. S2. RESPIRATORY: Breath sounds diminished in the bases. Bilateral scattered rhonchi and crackles. Abdomen is soft, nontender. Legs are no edema, no swelling. Central nervous system: No focal deficits. LABS: WBC 13.3, hemoglobin 7.4, and creatinine is 2.62. ASSESSMENT: 1. Shortness of breath, multifactorial possible chronic obstructive pulmonary disease acute exacerbation as well as bronchial asthma, acute exacerbation, acute purulent tracheobronchitis with congestive heart failure, acute exacerbation. 2. Right mid lung tumor. 3. Atrial fibrillation. 4. Hypertension. 5. Hyperlipidemia. 6. Increased WBC. 7. Severe gait dysfunction with acute on chronic kidney disease. 8. Hyperlipidemia. 9. History of rheumatoid arthritis. 10.Hyponatremia. 11.History of congestive heart failure. 12.Anemia. 13.Hypokalemia. RECOMMENDATIONS AND DISCUSSION: Recommend to continue current medications, management and symptomatic treatment. Monitor creatinine closely. The creatinine is worsening at this time. Nephrology has been consulted. Otherwise, continue to monitor. Arrange outpatient hemodialysis with the patient's not qualifying for rehab. Otherwise prognosis. Further recommendations to follow. MMODL / IJN: [id number] /
[2018-03-07] MEDS: SERTRALINE 50 MG TAB PO SCH (22:18)
[2018-03-07] MEDS: ZOLPIDEM 5 MG TAB PO SCH (23:40)
[2018-03-08] MEDS: methylPREDNISolone SOD SUCCI 125 MG/2 ML VIAL IV SCH ×3 (05:51→17:08)
[2018-03-08 06:56] LABS: Glucose,Whole Blood 147 mg/dL (75-99)
[2018-03-08] MEDS: IPRATROPIUM-ALBUTEROL 3 ML NEB INHALATION SCH ×4 (07:07→19:22)
[2018-03-08] MEDS: SYMBICORT 160-4.5 MCG INHALER INHALATION SCH ×2 (07:07→19:22)
[2018-03-08] MEDS: ALLOPURINOL 100 MG TAB PO SCH (08:04)
[2018-03-08] MEDS: INSULIN ASPART 100 UNIT/ML 1 ML 10 ML VIAL SQ SCH ×4 (08:04→21:27)
[2018-03-08] MEDS: CALCIUM ACETATE 667 MG CAP PO SCH ×3 (08:04→17:08)
[2018-03-08] MEDS: APIXABAN 2.5 MG TABLET PO SCH ×2 (08:04→21:27)
--- NOTE | 2018-03-08 09:12 | P.PN ---
Subjective Patient is seen in follow-up for CKD, now end-stage renal disease. She is maintained on hemodialysis on a Thursday schedule. Currently resting in bed. Has loose bowel movements intermittently, better today. No chest pain or shortness of breath. Hemodynamically stable. Vital signs are stable. General: The patient appeared well nourished and normally developed. HEENT: Head exam is unremarkable. Neck is without jugular venous distension. LUNGS: Lungs are clear to auscultation and percussion. Breath sounds decreased. HEART: Rate and Rhythm are regular. First and second heart sounds normal. No murmurs, rubs or gallops. ABDOMEN: Abdominal exam reveals normal bowel sounds. Non-tender and non- distended. No evidence of peritonitis. EXTREMITITES: No clubbing, cyanosis, or edema. Objective - Vital Signs Vital signs: Vital Signs Temp 97.6 F 03/08/18 06:03 Pulse 76 03/08/18 07:20 Resp 20 03/08/18 06:03 BP 162/75 03/08/18 06:03 Pulse Ox 99 03/08/18 07:07 Intake & Output 03/07/18 03/08/18 03/08/18 18:59 06:59 18:59 Intake Total 750 Balance 750 Weight 58.2 kg Intake: Oral 750 Other: Voiding Method Toilet # Voids 1 1 # Bowel Movements 4 1 - Labs CBC & Chem 7: 03/07/18 10:50 03/07/18 10:50 Labs: Abnormal Lab Results - Last 24 Hours (Table) 03/07/18 03/07/18 03/07/18 Range/Units 10:50 10:50 11:56 WBC 32.1 H (3.8-10.6) k/uL RBC 2.39 L (3.80-5.40) m/uL Hgb 7.4 L (11.4-16.0) gm/dL Hct 23.7 L (34.0-46.0) % RDW 18.5 H (11.5-15.5) % Neutrophils # 30.0 H (1.3-7.7) k/uL Lymphocytes # 0.7 L (1.0-4.8) k/uL Sodium 131 L (137-145) mmol/L Chloride 93 L (98-107) mmol/L BUN 22 H (7-17) mg/dL Creatinine 2.62 H (0.52-1.04) mg/dL Glucose 169 H (74-99) mg/dL POC Glucose (mg/dL) 193 H (75-99) mg/dL 03/07/18 03/07/18 03/08/18 Range/Units 17:15 20:41 06:53 WBC (3.8-10.6) k/uL RBC (3.80-5.40) m/uL Hgb (11.4-16.0) gm/dL Hct (34.0-46.0) % RDW (11.5-15.5) % Neutrophils # (1.3-7.7) k/uL Lymphocytes # (1.0-4.8) k/uL Sodium (137-145) mmol/L Chloride (98-107) mmol/L BUN (7-17) mg/dL Creatinine (0.52-1.04) mg/dL Glucose (74-99) mg/dL POC Glucose (mg/dL) 120 H 275 H 147 H (75-99) mg/dL Microbiology - Last 24 Hours (Table) 03/05/18 17:15 Blood Culture - Preliminary Blood No Growth after 48 hours Assessment and Plan Plan: Assessment: 1. End-stage renal disease maintained on hemodialysis on a Thursday schedule. 2. Diastolic CHF. 3. Chronic kidney disease mineral bone disease maintained on PhosLo. 4. Hypertension with chronic kidney disease. Controlled. 5. Pneumonia maintained on antibiotics. 6. Anemia of chronic kidney disease maintained on Aranesp. Mild iron deficiency noted. 7. Dyspnea secondary to CHF and COPD exacerbation. She is also recovering from pneumonia. Plan: Hemodialysis today. Continue IV iron.
[2018-03-08 09:55] LABS: Anisocytosis Slight; HCT 24.5 % (34.0-46.0); HGB 7.6 gm/dL (11.4-16.0); Hypochromasia Moderate; MCH 31.6 pg (25.0-35.0); MCV 101.7 fL (80.0-100.0); Macrocytosis Moderate; Mean Platelet Volume 7.1; Platelet Count 405 k/uL (150-450); RBC 2.41 m/uL (3.80-5.40); RDW 19.1 % (11.5-15.5); WBC 35.5 k/uL (3.8-10.6)
[2018-03-08 10:17] LABS: Calcium 8.7 mg/dL (8.4-10.2); Potassium 3.7 mmol/L (3.5-5.1)
[2018-03-08 11:03] LABS: Lymphocytes # (M) 0.71 k/uL (1.0-4.8); Metamyelocytes # (M) 0.36 k/uL (0); Metamyelocytes % 1 %; Myelocytes # (M) 0.36 k/uL (0); Myelocytes % 1 %; Nucleated Red Blood Cells 0 /100 WBC (0-0)
[2018-03-08 11:04] LABS: Band Neutrophils % 2 %; Monocytes # (M) 1.07 k/uL (0-1.0); Neutrophils % (M) 93 %; Polychromasia Present; Total Cells Counted 200; Toxic Granulation Present
[2018-03-08 12:04] LABS: Glucose,Whole Blood 148 mg/dL (75-99)
[2018-03-08] MEDS: hydrALAZINE HCL 25 MG TAB PO SCH ×3 (13:32→21:27)
[2018-03-08] MEDS: METOPROLOL TARTRATE 50 MG TAB PO SCH ×2 (13:32→21:27)
[2018-03-08] MEDS: AMIODARONE 100 MG TAB PO SCH (13:33)
[2018-03-08] MEDS: SODIUM FERRIC GLUCONAT-SUCROSE 125 MG in SODIUM CHLORIDE 0.9% 100 ML IVPB SCH (13:33)
[2018-03-08] MEDS: amLODIPine 10 MG TAB PO SCH (13:33)
[2018-03-08 16:56] LABS: Glucose,Whole Blood 220 mg/dL (75-99)
[2018-03-08 20:57] LABS: Glucose,Whole Blood 165 mg/dL (75-99)
[2018-03-08] MEDS: SERTRALINE 50 MG TAB PO SCH (21:27)
[2018-03-08] MEDS: ZOLPIDEM 5 MG TAB PO SCH (21:27)
--- NOTE | 2018-03-09 06:01 | PN ---
PROGRESS NOTE DATE OF SERVICE: 03/08/2018 PRESENTING COMPLAINT: Tired. INTERVAL HISTORY: This patient admitted with shortness of breath, felt to be a combination of COPD and CHF exacerbation. The patient is eating a bit better, a bit tired. The patient is up with a walker. REVIEW OF SYSTEMS: Done for constitutional, cardiovascular, GI, pulmonary; relevant findings as above. CURRENT MEDICATIONS: Current medications are reviewed. PHYSICAL EXAMINATION: On examination, temperature 98.4, pulse 80, respirations 18, blood pressure 127/64, pulse ox 95% on room air. GENERAL APPEARANCE: Sitting on bed, awake. EYES: Pupils equal. Conjunctivae normal. HENT: External appearance of nose and ears normal. Oral cavity normal. NECK: JVD unable to assess. Mass not palpable. RESPIRATORY: Effort increased. LUNGS: Decreased breath sounds. CARDIOVASCULAR: First and second sounds normal. No edema. ABDOMEN: Soft, nontender. Liver and spleen not palpable. PSYCHIATRY: Alert and oriented x3. Mood and affect normal, but tired. INVESTIGATIONS: White count 35.5, hemoglobin 7.6. Potassium 3.7. BUN 34, creatinine 3.34. Accu-Cheks are noted. ASSESSMENT: 1. Acute on chronic congestive heart failure exacerbation from diastolic and systolic dysfunction, ejection fraction 40% to 45% from hypertensive heart disease. 2. Acute chronic obstructive pulmonary disease exacerbation in an ex-smoker. 3. Paroxysmal atrial fibrillation in sinus rhythm. 4. End-stage kidney disease on hemodialysis. 5. Chronic left atrophic kidney. 6. Hypertensive heart disease. 7. Chronic rheumatoid arthritis. 8. Hyperlipidemia. 9. Anxiety and depression, not otherwise specified. 10.Hyponatremia possibly hypoosmolar. 11.Hypertension. 12.Chronic kidney disease. 13.Chronic kidney disease mineral bone disease on PhosLo and . 14.Anemia of chronic kidney disease, iron deficiency. 15.Acute kidney injury secondary to acute tubular necrosis secondary to cardiorenal syndrome. PLAN: Care was discussed with the patient and at the bedside. Switch the patient to oral prednisone. Looking at patient hopefully to be discharged tomorrow, outpatient dialysis. MMODL / IJN: [id number] /
[2018-03-09] MEDS: IPRATROPIUM-ALBUTEROL 3 ML NEB INHALATION SCH ×2 (07:06→12:07)
[2018-03-09] MEDS: SYMBICORT 160-4.5 MCG INHALER INHALATION SCH (07:06)
[2018-03-09 07:31] LABS: Glucose,Whole Blood 115 mg/dL (75-99)
[2018-03-09 07:34] VITALS: BP 161/74; RESP 18; TEMP 96.5
[2018-03-09] MEDS: METOPROLOL TARTRATE 50 MG TAB PO SCH (08:07)
[2018-03-09] MEDS: AMIODARONE 100 MG TAB PO SCH (08:08)
[2018-03-09] MEDS: CALCIUM ACETATE 667 MG CAP PO SCH ×2 (08:08→12:16)
[2018-03-09] MEDS: APIXABAN 2.5 MG TABLET PO SCH (08:08)
[2018-03-09] MEDS: ALLOPURINOL 100 MG TAB PO SCH (08:08)
[2018-03-09] MEDS: hydrALAZINE HCL 25 MG TAB PO SCH (08:08)
[2018-03-09] MEDS: amLODIPine 10 MG TAB PO SCH (08:08)
[2018-03-09] MEDS ORDERED: PNEUMOCOCCAL VACC-PNEUMOVAX 23 25 MCG/0.5 ML VIAL IM ONE (08:13)
[2018-03-09] MEDS: INSULIN ASPART 100 UNIT/ML 1 ML 10 ML VIAL SQ SCH ×2 (08:14→12:18)
[2018-03-09] MEDS: SODIUM FERRIC GLUCONAT-SUCROSE 125 MG in SODIUM CHLORIDE 0.9% 100 ML IVPB SCH (08:41)
[2018-03-09] MEDS ORDERED: predniSONE 20 MG TAB PO SCH (09:00)
[2018-03-09 09:11] LABS: Anisocytosis Slight; HCT 27.4 % (34.0-46.0); HGB 8.3 gm/dL (11.4-16.0); Hypochromasia Marked; MCH 31.1 pg (25.0-35.0); MCHC 30.2 g/dL (31.0-37.0); MCV 103.1 fL (80.0-100.0); Macrocytosis Moderate; Mean Platelet Volume 6.9; Platelet Count 419 k/uL (150-450); RBC 2.66 m/uL (3.80-5.40); RDW 19.6 % (11.5-15.5)
[2018-03-09 09:16] LABS: Calcium 8.8 mg/dL (8.4-10.2); Potassium 3.9 mmol/L (3.5-5.1)
--- NOTE | 2018-03-09 09:59 | P.PN ---
Subjective Patient is seen in follow-up for CKD, now end-stage renal disease. She is maintained on hemodialysis on a Thursday schedule. Currently resting in bed. No chest pain or shortness of breath. Hemodynamically stable. Vital signs are stable. General: The patient appeared well nourished and normally developed. HEENT: Head exam is unremarkable. Neck is without jugular venous distension. LUNGS: Lungs are clear to auscultation and percussion. Breath sounds decreased. HEART: Rate and Rhythm are regular. First and second heart sounds normal. No murmurs, rubs or gallops. ABDOMEN: Abdominal exam reveals normal bowel sounds. Non-tender and non- distended. No evidence of peritonitis. EXTREMITITES: No clubbing, cyanosis, or edema. Objective - Vital Signs Vital signs: Vital Signs Temp 96.5 F L 03/09/18 07:30 Pulse 95 03/09/18 07:30 Resp 18 03/09/18 08:40 BP 161/74 03/09/18 07:30 Pulse Ox 97 03/09/18 07:06 Intake & Output 03/08/18 03/09/18 03/09/18 18:59 06:59 18:59 Intake Total 750 Balance 750 Weight 54.5 kg Intake: Intake, IV Titration 150 Amount Sodium Ferric Gluconat- 100 Sucrose 125 mg In Sodium Chloride 0.9% 100 ml @ 100 mls/hr IVPB DAILY SIMON Rx#:[id number] cefTRIAXone 1,000 mg In 50 Sodium Chloride 0.9% 50 ml @ 100 mls/hr IVPB Q24HR SIMON Rx#:[id number] Oral 600 Other: Voiding Method Toilet # Voids 2 1 1 # Bowel Movements 2 1 1 - Labs CBC & Chem 7: 03/09/18 08:38 03/09/18 08:38 Labs: Abnormal Lab Results - Last 24 Hours (Table) 03/08/18 03/08/18 03/08/18 Range/Units 08:31 08:31 12:00 WBC 35.5 H (3.8-10.6) k/uL RBC 2.41 L (3.80-5.40) m/uL Hgb 7.6 L (11.4-16.0) gm/dL Hct 24.5 L (34.0-46.0) % MCV 101.7 H (80.0-100.0) fL MCHC (31.0-37.0) g/dL RDW 19.1 H (11.5-15.5) % Neutrophils # (Manual) 33.70 H (1.3-7.7) k/uL Lymphocytes # (Manual) 0.71 L (1.0-4.8) k/uL Monocytes # (Manual) 1.07 H (0-1.0) k/uL Metamyelocytes # (Man) 0.36 H (0) k/uL Myelocytes # (Manual) 0.36 H (0) k/uL Sodium 130 L (137-145) mmol/L Chloride 92 L (98-107) mmol/L BUN 34 H (7-17) mg/dL Creatinine 3.34 H (0.52-1.04) mg/dL Glucose 163 H (74-99) mg/dL POC Glucose (mg/dL) 148 H (75-99) mg/dL 03/08/18 03/08/18 03/09/18 Range/Units 16:48 20:56 07:27 WBC (3.8-10.6) k/uL RBC (3.80-5.40) m/uL Hgb (11.4-16.0) gm/dL Hct (34.0-46.0) % MCV (80.0-100.0) fL MCHC (31.0-37.0) g/dL RDW (11.5-15.5) % Neutrophils # (Manual) (1.3-7.7) k/uL Lymphocytes # (Manual) (1.0-4.8) k/uL Monocytes # (Manual) (0-1.0) k/uL Metamyelocytes # (Man) (0) k/uL Myelocytes # (Manual) (0) k/uL Sodium (137-145) mmol/L Chloride (98-107) mmol/L BUN (7-17) mg/dL Creatinine (0.52-1.04) mg/dL Glucose (74-99) mg/dL POC Glucose (mg/dL) 220 H 165 H 115 H (75-99) mg/dL 03/09/18 03/09/18 Range/Units 08:38 08:38 WBC 37.7 H (3.8-10.6) k/uL RBC 2.66 L (3.80-5.40) m/uL Hgb 8.3 L (11.4-16.0) gm/dL Hct 27.4 L (34.0-46.0) % MCV 103.1 H (80.0-100.0) fL MCHC 30.2 L (31.0-37.0) g/dL RDW 19.6 H (11.5-15.5) % Neutrophils # (Manual) (1.3-7.7) k/uL Lymphocytes # (Manual) (1.0-4.8) k/uL Monocytes # (Manual) (0-1.0) k/uL Metamyelocytes # (Man) (0) k/uL Myelocytes # (Manual) (0) k/uL Sodium 130 L (137-145) mmol/L Chloride 96 L (98-107) mmol/L BUN 29 H (7-17) mg/dL Creatinine 2.75 H (0.52-1.04) mg/dL Glucose 179 H (74-99) mg/dL POC Glucose (mg/dL) (75-99) mg/dL Microbiology - Last 24 Hours (Table) 03/05/18 17:15 Blood Culture - Preliminary Blood No Growth after 72 hours Assessment and Plan Plan: Assessment: 1. End-stage renal disease maintained on hemodialysis on a Thursday schedule. 2. Diastolic CHF. 3. Chronic kidney disease mineral bone disease maintained on PhosLo. 4. Hypertension with chronic kidney disease. Partially related to steroids. 5. Pneumonia maintained on antibiotics. 6. Anemia of chronic kidney disease maintained on Aranesp. Mild iron deficiency noted. 7. Dyspnea secondary to CHF and COPD exacerbation. She is also recovering from pneumonia. 8. Hyponatremia secondary to C daily. Plan: Hemodialysis tomorrow. Continue IV iron. Stable to be discharged from nephrology standpoint.
[2018-03-09 10:50] LABS: Band Neutrophils % 4 %; Metamyelocytes # (M) 0.75 k/uL (0); Metamyelocytes % 2 %; Myelocytes % 1 %; Neutrophils % (M) 87 %; Nucleated Red Blood Cells 1 /100 WBC (0-0); Total Cells Counted 200
[2018-03-09 10:51] LABS: Lymphocytes # (M) 1.49 k/uL (1.0-4.8); Monocytes # (M) 1.12 k/uL (0-1.0); Myelocytes # (M) 0.37 k/uL (0); Polychromasia Present; WBC 37.3 k/uL (3.8-10.6)
[2018-03-09 10:55] LABS: Toxic Granulation Present
[2018-03-09 11:34] LABS: Glucose,Whole Blood 148 mg/dL (75-99)
[2018-03-09 12:16] VITALS: PULSE 76
--- NOTE | 2018-03-09 13:55 | CDI ---
Last Revision, April 2017 Documentation Clarification Form Date: 03/09/18 From: Kathya Davis RN Admit Date: 03/05/2018 6:32:00 PM Patient Name: Brittany Levin Visit Number: [id number] ATTENTION: The Clinical Documentation Specialists (CDI) and [facility] Coding Staff appreciate your assistance in clarifying documentation. Please respond to the clarification below the line at the bottom and electronically sign. The CDI & [facility] Coding staff will review the response and follow-up if needed. Please note: Queries are made part of the Legal Health Record. If you have any questions, please contact the author of this message via ITS. Steve Patino MD, Conflicting documentation has been found in the medical record. ED note states "patient is currently on antibiotics for possible underlying pneumonia". H &P states "history of pneumonia". Consults 03/06 she was recently treated with antibiotics for pneumonia". PN 03/07 - 03/09 pneumonia maintained on antibiotics , she is recovering from pneumonia". History/Risk Factors: asthma, CHF, CVA, TIA, HTN, DJD, a-fib, acute on chronic kidney disease, RA, anemia Clinical Indicators: WBC on admission 23.9, 03/09 37.3 CXR: right upper lobe pneumonia unchanged Home medication include Cefuroxime 250 mg tab ED notes states patient is weak, lethargic. Lungs have wheezes use of accessory muscle use, cough Treatment: Antibiotics: Ceftriaxone IVPB, Pneumococcal vaccine. In your opinion what is the most clinically appropriate diagnosis for this patient? Pneumonia ruled out Pneumonia ruled in Type of pneumonia Other explanation of clinical findings Unable to determine (no explanation for clinical findings) MTDD
--- NOTE | 2018-03-10 00:52 | DS ---
DISCHARGE SUMMARY DATE OF ADMISSION: 03/05/2018. DATE OF DISCHARGE: 03/09/2018. FINAL DIAGNOSES: 1. Acute on chronic congestive heart failure exacerbation from diastolic and systolic dysfunction, ejection fraction 40% to 45% from hypertensive heart disease. 2. Acute chronic obstructive pulmonary disease exacerbation in an ex-smoker. 3. Paroxysmal atrial fibrillation, in sinus rhythm. 4. End-stage kidney disease, on hemodialysis. 5. Chronic left atrophic kidney. 6. Hypertensive heart disease. 7. Chronic rheumatoid arthritis. 8. Hyperlipidemia. 9. Anxiety and depression, not otherwise specified. 10.Hyponatremia, possibly hypoosmolar. 11.Essential hypertension. 12.Chronic kidney disease, mineral bone disease on PhosLo. 13.Anemia of chronic kidney disease and iron deficiency. 14.Acute kidney injury secondary to acute tubular necrosis secondary to cardiorenal syndrome. HOSPITAL COURSE: This patient presented with both CHF and COPD exacerbation. Treated with bronchodilators. Aggressive hemodialysis. She was doing much better at the time of discharge. EXAMINATION: Temperature 96.5, pulse 57, respiratory rate 18, blood pressure 160/74, pulse ox 95% on room air. Lungs, decreased breath sounds. Cardiovascular, 1st and 2nd sounds normal. INVESTIGATIONS: White count 37.3 from steroids, hemoglobin 8.3, potassium 3.9. CONSULTATIONS: Dr. Wilde from Nephrology, Dr. Urbina from Cardiology. DISCHARGE MEDICATIONS: 1. Zoloft 50 mg at bedtime. 2. Norvasc 10 mg p.o. daily. 3. Allopurinol 100 mg p.o. daily. 4. Cordarone 100 mg p.o. daily. 5. Eliquis 2.5 mg p.o. b.i.d. 6. PhosLo 667 mg p.o. t.i.d. with meals. 7. Lopressor 50 mg b.i.d. 8. Symbicort 160/4.5, 2 puffs b.i.d. 9. Hydralazine 75 mg p.o. t.i.d. 10.DuoNeb t.i.d. 11.Prednisone taper. LABS: CBC, BMP in 3 to 5 days. FOLLOWUP: 1. Follow up with Sam in [address] Desai on 03/17/2018. 3. Hemodialysis schedule to be maintained. MMODL / IJN: [id number] /
== END 2018-03-09 14:13 | disposition home health service (06) | DRG 291 ==
LOC: EC 16:31 → 4MS4W 18:32
PROVIDERS: ADMIT Hospitalist; ATTEND Hospitalist
DX: I13.2 Hypertensive heart and chronic kidney disease with heart failure and with stage 5 chronic kidney disease, or end stage renal disease (principal); I50.43 Acute on chronic combined systolic (congestive) and diastolic (congestive) heart failure; N17.0 Acute kidney failure with tubular necrosis; N18.6 End stage renal disease; J18.9 Pneumonia, unspecified organism; J44.1 Chronic obstructive pulmonary disease with (acute) exacerbation; E87.1 Hypo-osmolality and hyponatremia; J45.902 Unspecified asthma with status asthmaticus; J44.0 Chronic obstructive pulmonary disease with (acute) lower respiratory infection; D63.1 Anemia in chronic kidney disease; F32.9 Major depressive disorder, single episode, unspecified; F41.9 Anxiety disorder, unspecified; E78.5 Hyperlipidemia, unspecified; M06.9 Rheumatoid arthritis, unspecified; Z99.2 Dependence on renal dialysis; M19.90 Unspecified osteoarthritis, unspecified site; Z86.73 Personal history of transient ischemic attack (TIA), and cerebral infarction without residual deficits; Z79.01 Long term (current) use of anticoagulants; Z79.51 Long term (current) use of inhaled steroids; Z79.899 Other long term (current) drug therapy; Z82.49 Family history of ischemic heart disease and other diseases of the circulatory system; Z87.891 Personal history of nicotine dependence; E87.6 Hypokalemia; I48.0 Paroxysmal atrial fibrillation; E86.0 Dehydration; D49.1 Neoplasm of unspecified behavior of respiratory system; T38.0X5A Adverse effect of glucocorticoids and synthetic analogues, initial encounter; M89.8X9 Other specified disorders of bone, unspecified site; R09.02 Hypoxemia
CPT/HCPCS: 36415; 71046; 80048; 80053; 82550; 82553; 82728; 83036; 83540; 83550; 83735; 83880; 84100; 84484; 85025; 85610; 85730; 87040; 90732; 90935; 93005; 94640; 94760; 96374; 99285

== ENCOUNTER 2018-03-14 08:41 | Inpatient (IN) | payer MEDICARE, BC ==
[2018-03-14] MEDS ORDERED: SODIUM CHLORIDE 0.9% 500 ML 500 ML IV STA (09:00)
[2018-03-14] MEDS ORDERED: SODIUM CHLORIDE 0.9% 1,000 ML IV STA (09:00)
--- NOTE | 2018-03-14 09:03 | ED ---
Weakness HPI - General Chief complaint: Weakness Stated complaint: Diarrhea/wekness Time Seen by Provider: 03/14/18 08:46 Source: EMS, RN notes reviewed, old records reviewed Mode of arrival: EMS Limitations: no limitations - History of Present Illness Initial comments: Patient is a 72-year-old female with a history of CHF, COPD and dialysis Patient , presents emergency Department after recent admission. Patient was treated for pneumonia at that time and was placed on antibiotics. She reports that over the past 5 days she's had severe diarrhea. She reports she's had increasing weakness. She receives dialysis Thursday. Patient states that she has had uncontrollable bowel habits. Patient states that she's had no chest pain complains of no shortness of breath. She states that she has no abdominal pain. He denies any headache. - Related Data Home Medications Medication Instructions Recorded Confirmed Sertraline HCl [Zoloft] 50 mg PO HS 04/30/17 03/14/18 Allopurinol [Zyloprim] 100 mg PO DAILY 09/09/17 03/14/18 Budesonide-Formot 160-4.5 Mcg 2 puff INHALATION RT-BID 02/25/18 03/14/18 [Symbicort 160-4.5 Mcg Inhaler] Ipratropium-Albuterol Nebulize 3 ml INHALATION RT-TID 03/14/18 03/14/18 [Duoneb 0.5 mg-3 mg/3 ml Soln] predniSONE See Taper PO DAILY 03/14/18 03/14/18 Previous Rx's Medication Instructions Recorded amLODIPine [Norvasc] 10 mg PO DAILY tab 07/16/17 Amiodarone [Cordarone] 100 mg PO DAILY tab 02/06/18 Apixaban [Eliquis] 2.5 mg PO BID #60 tablet 02/06/18 Calcium Acetate [PhosLo] 667 mg PO TID-W/MEALS #90 cap 02/06/18 Metoprolol Tartrate [Lopressor] 50 mg PO BID #60 tab 02/06/18 hydrALAZINE HCL [Apresoline] 75 mg PO TID tab 03/04/18 Allergies Allergy/AdvReac Type Severity Reaction Status Date / Time No Known Allergies Allergy Verified 03/14/18 12:18 Review of Systems ROS Statement: Those systems with pertinent positive or pertinent negative responses have been documented in the HPI. ROS Other: All systems not noted in ROS Statement are negative. Past Medical History Past Medical History: Atrial Fibrillation, Asthma, Heart Failure, CVA/TIA, Hypertension, Osteoarthritis (OA), Pneumonia Additional Past Medical History / Comment(s): Wants pna vax on d/c, CVA 2005 - no deficits, SOB, recent ARF had dialysis cath inserted 02-02-18 gets dialysis Thu-Thu-Thu. History of Any Multi-Drug Resistant Organisms: None Reported Past Surgical History: Tonsillectomy Additional Past Surgical History / Comment(s): ORIF rt ankle-[address], IUD removal, lumbar steroid injections, dental implants, cardioversion, dialysis cath. Past Anesthesia/Blood Transfusion Reactions: No Reported Reaction Additional Past Anesthesia/Blood Transfusion Reaction / Comment(s): Past blood transfusions - no reaction Past Psychological History: No Psychological Hx Reported Smoking Status: Former smoker Past Alcohol Use History: None Reported Past Drug Use History: None Reported - Past Family History Mother Additional Family Medical History / Comment(s): Mother in her 80s from abdominal aortic aneurysm. Father Family Medical History: Myocardial Infarction ([place]) Additional Family Medical History / Comment(s): Father at age 52 from acute [place]. Patient has 1 brother that is healthy. General Exam - General Exam Comments Initial Comments: 72-year-old female. Alert and oriented 3. Patient appears weak. Patient is frail. Patient arrived via EMS. She is sitting in her stool. Limitations: no limitations General appearance: alert, in no apparent distress Head exam: Present: atraumatic, normocephalic, normal inspection Eye exam: Present: normal appearance, PERRL, EOMI. Absent: scleral icterus, conjunctival injection, periorbital swelling ENT exam: Present: normal exam, mucous membranes moist Neck exam: Present: normal inspection. Absent: tenderness, meningismus, lymphadenopathy Respiratory exam: Present: normal lung sounds bilaterally. Absent: respiratory distress, wheezes, rales, rhonchi, stridor Cardiovascular Exam: Present: regular rate, normal rhythm, normal heart sounds. Absent: systolic murmur, diastolic murmur, rubs, gallop, clicks GI/Abdominal exam: Present: soft, normal bowel sounds. Absent: distended, tenderness, guarding, rebound, rigid Extremities exam: Present: normal inspection, full ROM, normal capillary refill , pedal edema (2+ pedal edema). Absent: tenderness, joint swelling, calf tenderness Back exam: Present: normal inspection Neurological exam: Present: alert, oriented X3, CN II-XII intact Psychiatric exam: Present: normal affect, normal mood Skin exam: Present: warm, dry, intact, normal color. Absent: rash Course Vital Signs 03/14/18 03/14/18 03/14/18 08:45 08:48 09:00 Temperature 97.5 F L Pulse Rate 79 79 75 Respiratory 18 15 14 Rate Blood Pressure 158/84 158/84 158/84 O2 Sat by Pulse 97 94 L 97 Oximetry 03/14/18 03/14/18 10:00 12:30 Temperature Pulse Rate 74 80 Respiratory 15 20 Rate Blood Pressure 173/82 O2 Sat by Pulse 97 95 Oximetry EKG Findings - EKG Comments: EKG Findings:: EKG performed at 852 shows normal sinus rhythm incomplete left bundle-branch block. Left ventricular hypertrophy with repolarization abnormality. Prolonged QT. Abnormal EKG noted. Ventricular rate of 77 bpm. NH interval is 176. QRS ration 112 QTQTC's 46/504 ms. Medical Decision Making - Medical Decision Making 72-year-old female presents respiratory today with increasing weakness fatigue diarrhea. Patient is discharged personally 5 days ago for HF exacerbation, pneumonia. She was started on antibiotics. She was unable to produce a stool sample and as of this time. Patient did arrive with evidence of diarrhea on her skin. Sitting in her stool. Patient was started on 500 ml bolus, and slight maintenance fluids. She was found to have low potassium level II.9. Patient is a dialysis Patient. Give the Patient to much potassium and I'll just give her the oral dose of this time. Patient is found to have significant elevation of BNP at 22,900. She does not hear to be in any acute or failure. No significant swelling in the legs or decreased lung sounds. She denies chest pain or shortness breath at this time. At this time and would like to admit the Patient for hypokalemia dehydration and diarrhea. Patient will be admitted to Dr. Salcido. Dr. Noonan discussed the case with him. - Lab Data Result diagrams: 03/14/18 09:53 03/14/18 09:52 Lab Results 03/14/18 03/14/18 03/14/18 Range/Units 09:52 09:52 09:53 WBC 19.1 H (3.8-10.6) k/uL RBC 2.75 L (3.80-5.40) m/uL Hgb 8.8 L (11.4-16.0) gm/dL Hct 27.5 L (34.0-46.0) % MCV 99.8 (80.0-100.0) fL MCH 31.8 (25.0-35.0) pg MCHC 31.9 (31.0-37.0) g/dL RDW 19.0 H (11.5-15.5) % Plt Count 236 (150-450) k/uL Neutrophils % 90 % Lymphocytes % 3 % Monocytes % 5 % Eosinophils % 0 % Basophils % 0 % Neutrophils # 17.2 H (1.3-7.7) k/uL Lymphocytes # 0.5 L (1.0-4.8) k/uL Monocytes # 1.0 (0-1.0) k/uL Eosinophils # 0.0 (0-0.7) k/uL Basophils # 0.0 (0-0.2) k/uL Hypochromasia Slight Anisocytosis Slight Macrocytosis Moderate PT (9.0-12.0) sec INR (<1.2) APTT (22.0-30.0) sec Sodium 130 L (137-145) mmol/L Potassium 2.9 L (3.5-5.1) mmol/L Chloride 92 L (98-107) mmol/L Carbon Dioxide 30 (22-30) mmol/L Anion Gap 8 mmol/L BUN 28 H (7-17) mg/dL Creatinine 2.40 H (0.52-1.04) mg/dL Est GFR (CKD-EPI)AfAm 23 (>60 ml/min/1.73 sqM) Est GFR (CKD-EPI)NonAf 20 (>60 ml/min/1.73 sqM) Glucose 77 (74-99) mg/dL Plasma Lactic Acid Erich 0.5 L (0.7-2.0) mmol/L Calcium 8.0 L (8.4-10.2) mg/dL Phosphorus 2.5 (2.5-4.5) mg/dL Magnesium 1.8 (1.6-2.3) mg/dL Total Bilirubin 0.6 (0.2-1.3) mg/dL AST 21 (14-36) U/L ALT 34 (9-52) U/L Alkaline Phosphatase 123 (38-126) U/L Total Creatine Kinase (30-135) U/L CK-MB (CK-2) (0.0-2.4) ng/mL CK-MB (CK-2) Rel Index Troponin I (0.000-0.034) ng/mL NT-Pro-B Natriuret Pep pg/mL Total Protein 5.1 L (6.3-8.2) g/dL Albumin 2.6 L (3.5-5.0) g/dL 03/14/18 03/14/18 03/14/18 Range/Units 09:53 09:53 09:53 WBC (3.8-10.6) k/uL RBC (3.80-5.40) m/uL Hgb (11.4-16.0) gm/dL Hct (34.0-46.0) % MCV (80.0-100.0) fL MCH (25.0-35.0) pg MCHC (31.0-37.0) g/dL RDW (11.5-15.5) % Plt Count (150-450) k/uL Neutrophils % % Lymphocytes % % Monocytes % % Eosinophils % % Basophils % % Neutrophils # (1.3-7.7) k/uL Lymphocytes # (1.0-4.8) k/uL Monocytes # (0-1.0) k/uL Eosinophils # (0-0.7) k/uL Basophils # (0-0.2) k/uL Hypochromasia Anisocytosis Macrocytosis PT 10.2 (9.0-12.0) sec INR 1.0 (<1.2) APTT 27.2 (22.0-30.0) sec Sodium (137-145) mmol/L Potassium (3.5-5.1) mmol/L Chloride (98-107) mmol/L Carbon Dioxide (22-30) mmol/L Anion Gap mmol/L BUN (7-17) mg/dL Creatinine (0.52-1.04) mg/dL Est GFR (CKD-EPI)AfAm (>60 ml/min/1.73 sqM) Est GFR (CKD-EPI)NonAf (>60 ml/min/1.73 sqM) Glucose (74-99) mg/dL Plasma Lactic Acid Erich (0.7-2.0) mmol/L Calcium (8.4-10.2) mg/dL Phosphorus (2.5-4.5) mg/dL Magnesium (1.6-2.3) mg/dL Total Bilirubin (0.2-1.3) mg/dL AST (14-36) U/L ALT (9-52) U/L Alkaline Phosphatase (38-126) U/L Total Creatine Kinase <20 L (30-135) U/L CK-MB (CK-2) 0.5 (0.0-2.4) ng/mL CK-MB (CK-2) Rel Index Troponin I 0.021 (0.000-0.034) ng/mL NT-Pro-B Natriuret Pep 72184 pg/mL Total Protein (6.3-8.2) g/dL Albumin (3.5-5.0) g/dL - Radiology Data Radiology results: report reviewed Cardiomegaly, improved aeration of the right upper lobe noted on chest x-ray. Disposition Clinical Impression: Diarrhea, Weakness, Hypokalemia, CHF (congestive heart failure) Disposition: ADMITTED IP TO THIS HOSP Condition: Stable Is patient prescribed a controlled substance at d/c from ED?: No Referrals: Soren Desai MD [Primary Care Provider] - 1-2 days Time of Disposition: 13:33
--- NOTE | 2018-03-14 10:23 | XR ---
EXAMINATION TYPE: XR chest 2V DATE OF EXAM: 03/14/2018 HISTORY: Weakness. REFERENCE: Previous study dated 03/05/2018. FINDINGS: There is a large-bore, double-lumen catheter in place via a right internal jugular approach . Its tip is at the cavoatrial junction. The heart is upper limits of normal in size. There is improved aeration in the right upper lobe. The left lung is clear. There is a layering effusion likely on the right. IMPRESSION: 1. CARDIOMEGALY. 2. IMPROVED AERATION, RIGHT UPPER LOBE.
[2018-03-14 10:26] LABS: Anisocytosis Slight; Basophils % (A) 0 %; Eosinophils % (A) 0 %; HCT 27.5 % (34.0-46.0); HGB 8.8 gm/dL (11.4-16.0); Hypochromasia Slight; Lymphocytes # (A) 0.5 k/uL (1.0-4.8); Lymphocytes % (A) 3 %; MCH 31.8 pg (25.0-35.0); MCHC 31.9 g/dL (31.0-37.0); MCV 99.8 fL (80.0-100.0); Macrocytosis Moderate; Mean Platelet Volume 6.8; Monocytes % (A) 5 %; Neutrophils # (A) 17.2 k/uL (1.3-7.7); Neutrophils % (A) 90 %; Platelet Count 236 k/uL (150-450); RBC 2.75 m/uL (3.80-5.40); WBC 19.1 k/uL (3.8-10.6)
[2018-03-14 10:37] LABS: Albumin 2.6 g/dL (3.5-5.0); Magnesium 1.8 mg/dL (1.6-2.3); Phosphorus 2.5 mg/dL (2.5-4.5); Potassium 2.9 mmol/L (3.5-5.1); Total Bilirubin 0.6 mg/dL (0.2-1.3); Total Protein 5.1 g/dL (6.3-8.2)
[2018-03-14 10:38] LABS: Partial Thromboplastin Time 27.2 sec (22.0-30.0); Prothrombin Time 10.2 sec (9.0-12.0)
[2018-03-14 10:46] LABS: Creatine Kinase <20 U/L (30-135)
[2018-03-14 11:00] LABS: Creatine Kinase MB 0.5 ng/mL (0.0-2.4); Troponin I 0.021 ng/mL (0.000-0.034)
[2018-03-14] MEDS ORDERED: POTASSIUM CHLORIDE ER 20 MEQ TAB.ER PO STA (11:08)
[2018-03-14] MEDS ORDERED: NALOXONE 0.4 MG/ML 1 ML VIAL IV PRN (13:34)
[2018-03-14] MEDS ORDERED: ONDANSETRON 4 MG/2 ML VIAL IVP PRN (13:34)
[2018-03-14 14:38] LABS: Appearance,Urine Cloudy (Clear); Bilirubin,Urine Negative (Negative); Blood,Urine Negative (Negative); Color,Urine Dark Yellow; Glucose,Urine (UA) Negative (Negative); Ketones,Urine Negative (Negative); Leukocyte Esterase,Urine Small (Negative); Nitrite,Urine Negative (Negative); Protein,Urine 1+ (Negative); RBC,Urine 5 /hpf (0-5); Specific Gravity,Urine 1.014 (1.001-1.035); Squamous Epithelial Cell,Urine 15 /hpf (0-4); Urobilinogen,Urine <2.0 mg/dL (<2.0); WBC,Urine 3 /hpf (0-5)
[2018-03-14] MEDS: hydrALAZINE HCL 25 MG TAB PO SCH ×2 (17:40→20:49)
[2018-03-14] MEDS: SODIUM CHLORIDE 0.9% 1,000 ML IV SCH (17:41)
[2018-03-14] MEDS: CALCIUM ACETATE 667 MG CAP PO SCH (19:50)
[2018-03-14] MEDS: IPRATROPIUM-ALBUTEROL 3 ML NEB INHALATION SCH (20:27)
[2018-03-14] MEDS: SYMBICORT 160-4.5 MCG INHALER INHALATION SCH (20:28)
[2018-03-14] MEDS: MELATONIN 3 MG TABLET PO SCH (20:48)
[2018-03-14] MEDS: METOPROLOL TARTRATE 50 MG TAB PO SCH (20:48)
[2018-03-14] MEDS: APIXABAN 2.5 MG TABLET PO SCH (20:48)
[2018-03-14] MEDS: SERTRALINE 50 MG TAB PO SCH (20:49)
--- NOTE | 2018-03-14 23:11 | HP ---
HISTORY AND PHYSICAL DATE OF ADMISSION: 03/14/2018 PRESENTING COMPLAINT: Weak, tired. HISTORY OF PRESENTING COMPLAINT: This is a pleasant 72-year-old patient who was discharged from the hospital 5 days ago. The patient's chronic stable medical conditions include COPD, end-stage kidney disease on hemodialysis, hypertensive heart disease, rheumatoid arthritis, hyperlipidemia, anxiety, depression, chronic anemia. The patient has been on hemodialysis. The patient was discharged home on March 09, 2018. Since the patient got home, patient has been feeling very weak and tired, not able to even get up to use a walker, though she can walk when she can get to the walker. Getting more and more tired. Appetite is fair. No fever. No chills. Baseline short of breath. No cough. The patient is having about 3 mushy bowel movements a day. No abdominal pain. Just weak, tired and run down. Cannot manage at home anymore. REVIEW OF SYSTEMS: CONSTITUTIONAL: Weak and tired. HEENT: Decreased hearing. RESPIRATORY: Some shortness of breath. CARDIOVASCULAR as above. GASTROINTESTINAL as above. No abdominal pain. GENITOURINARY none. MUSCULOSKELETAL none. DERMATOLOGICAL, HEMATOLOGIC, LYMPHATIC: None. PSYCHIATRY: A bit anxious. NEUROLOGICAL: None. PAST MEDICAL HISTORY: Anemia of chronic kidney disease, chronic mineral bone disease from chronic kidney disease, hypertension, anxiety, depression, hyperlipidemia, rheumatoid arthritis, hypertensive heart disease, end-stage kidney disease on hemodialysis, paroxysmal atrial fibrillation, congestive heart failure, EF 40-45 percent. Patient's dialysis was started on February 02, 2018. PAST SURGICAL HISTORY: Tonsillectomy, ORIF of the right ankle, IUD removal, lumbar steroid injections, dental implants. SOCIAL HISTORY: The patient the patient smoked a pack and half a day. Smoked for 34 years. Stopped in 2007. The patient used to drink heavily in the past. Not anymore. Lives with her . FAMILY HISTORY: Mother of abdominal aortic aneurysm in her 80s. HOME MEDICATIONS: 1. Prednisone taper. 2. Hydralazine 75 mg t.i.d. 3. Norvasc 10 mg a day. 4. Zoloft 50 mg q.h.s. 5. Lopressor 50 mg p.o. b.i.d. 6. DuoNeb t.i.d. 7. PhosLo 1 capsule p.o. t.i.d. 8. Symbicort 160/4.5, 2 puffs b.i.d. 9. Eliquis 2.5 p.o. b.i.d. 10.Cordarone 100 mg p.o. daily. 11.Allopurinol 100 mg p.o. daily. ALLERGIES: None. PHYSICAL EXAMINATION: VITAL SIGNS: Vital signs on presentation, temperature 97.5, pulse 79, respiratory 18, blood pressure 150/84, pulse ox 97% on room air. GENERAL APPEARANCE: Average build, lying in bed, tired-appearing. EYES: Pupils equal. Conjunctivae pale. HEENT: External appearance of nose and ears. Oral cavity normal. NECK: JVD unable to assess. Mass not palpable. RESPIRATORY: Effort increased. LUNGS: Decreased breath sounds. CARDIOVASCULAR: 1st and 2nd sounds normal. No edema. ABDOMEN: Soft, nontender. Liver and spleen not palpable. LYMPHATICS: No lymph nodes palpable in the neck and axilla. PSYCHIATRY: Alert and oriented x3. Mood and affect slightly low appearing. NEUROLOGICAL: Pupils equal. Cranial nerves grossly intact. Power and sensation, generalized weakness. INVESTIGATIONS: White count 19.1, hemoglobin 8.8, potassium 2.9, BUN 28, creatinine 2.40. ASSESSMENT: 1. Severe medical debility. Patient is not even able to do minimal. The patient has a pretty foul smelling stool. Given that she was recently hospitalized, patient may have developed C diff. 2. Rule out acute C. dif colitis. 3. Hyponatremia. 4. Chronic congestive heart failure from diastolic and systolic dysfunction EF 40-45 percent from hypertensive heart disease. 5. Chronic obstructive pulmonary disease. 6. Paroxysmal atrial fibrillation currently in sinus rhythm. 7. End-stage kidney disease on hemodialysis. 8. Hypertensive heart disease. 9. Chronic rheumatoid arthritis. 10.Hyperlipidemia. 11.Anxiety and depression, not otherwise specified. 12.Hyponatremia, possibly hypoosmolar. 13.Essential hypertension. 14.Mineral bone disease from chronic kidney disease. 15.Anemia of chronic kidney disease. PLAN: We will consult Nephrology to continue with hemodialysis. We will send off stool for C diff. PT/OT will be consulted. Home medications will be resumed. Care was discussed with the patient. Questions were answered. Copy to Dr. Desai. MMRODGERL / TRINAN: [id number] /
[2018-03-15] MEDS: hydrALAZINE HCL 25 MG TAB PO SCH ×3 (08:09→21:42)
[2018-03-15] MEDS: PANTOPRAZOLE 40 MG/10 ML VIAL IV SCH (08:09)
[2018-03-15] MEDS: CALCIUM ACETATE 667 MG CAP PO SCH ×3 (08:09→17:45)
[2018-03-15] MEDS: ALLOPURINOL 100 MG TAB PO SCH (08:09)
[2018-03-15] MEDS: AMIODARONE 100 MG TAB PO SCH (08:09)
[2018-03-15] MEDS: amLODIPine 10 MG TAB PO SCH (08:10)
[2018-03-15] MEDS: APIXABAN 2.5 MG TABLET PO SCH ×2 (08:10→20:48)
[2018-03-15] MEDS: METOPROLOL TARTRATE 50 MG TAB PO SCH ×2 (08:10→20:48)
--- NOTE | 2018-03-15 08:45 | P.NPCON ---
History of Present Illness - Reason for Consult end stage renal disease - History of Present Illness Reason for consultation: End-stage renal disease History of present illness: Patient is a 72-year-old female seen in renal consultation for end-stage renal disease. Patient was initially acute kidney injury and will try to take her off dialysis. However patient went into flash pulmonary edema and dialysis was resumed. She is maintained on a Thursday schedule via right chest permacath. Patient was recently treated for pneumonia. This time she presents with diarrhea. Patient states she had uncontrollable diarrhea 2 days ago. Last night she had one episode. Denies any melena or hematochezia. No vomiting. Oral intake is fair. Denies chest pain or shortness of breath. Last hemodialysis was on Thursday and she is scheduled for treatment today. C. diff is pending. Hemodynamically stable. Potassium level was low and was replaced. Vital signs are stable. General: The patient appeared well nourished and normally developed. HEENT: Head exam is unremarkable. Neck is without jugular venous distension. LUNGS: Lungs are clear to auscultation and percussion. Breath sounds decreased. HEART: Rate and Rhythm are regular. First and second heart sounds normal. No murmurs, rubs or gallops. ABDOMEN: Abdominal exam reveals normal bowel sounds. Non-tender and non- distended. No evidence of peritonitis. EXTREMITITES: No clubbing, cyanosis, or edema. Past Medical History Past Medical History: Atrial Fibrillation, Asthma, Heart Failure, CVA/TIA, Hypertension, Osteoarthritis (OA), Pneumonia Additional Past Medical History / Comment(s): CVA 2006 recent ARF had dialysis cath inserted 02-02-18 gets dialysis Thu-Thu-Thu. History of Any Multi-Drug Resistant Organisms: None Reported Past Surgical History: Tonsillectomy Additional Past Surgical History / Comment(s): ORIF rt ankle-[address], IUD removal, lumbar steroid injections, dental implants, cardioversion, dialysis cath. Past Anesthesia/Blood Transfusion Reactions: No Reported Reaction Additional Past Anesthesia/Blood Transfusion Reaction / Comment(s): Past blood transfusions - no reaction Past Psychological History: No Psychological Hx Reported Smoking Status: Never smoker Past Alcohol Use History: None Reported Past Drug Use History: None Reported - Past Family History Mother Additional Family Medical History / Comment(s): Mother in her 80s from abdominal aortic aneurysm. Father Family Medical History: Myocardial Infarction ([place]) Additional Family Medical History / Comment(s): Father at age 52 from acute [place]. Medications and Allergies Home Medications Medication Instructions Recorded Confirmed Type Sertraline HCl [Zoloft] 50 mg PO HS 04/30/17 03/14/18 History amLODIPine [Norvasc] 10 mg PO DAILY tab 07/16/17 03/14/18 Rx Allopurinol [Zyloprim] 100 mg PO DAILY 09/09/17 03/14/18 History Amiodarone [Cordarone] 100 mg PO DAILY tab 02/06/18 03/14/18 Rx Apixaban [Eliquis] 2.5 mg PO BID #60 tablet 02/06/18 03/14/18 Rx Calcium Acetate [PhosLo] 667 mg PO TID-W/MEALS #90 cap 02/06/18 03/14/18 Rx Metoprolol Tartrate [Lopressor] 50 mg PO BID #60 tab 02/06/18 03/14/18 Rx Budesonide-Formot 160-4.5 Mcg 2 puff INHALATION RT-BID 02/25/18 03/14/18 History [Symbicort 160-4.5 Mcg Inhaler] hydrALAZINE HCL [Apresoline] 75 mg PO TID tab 03/04/18 03/14/18 Rx Ipratropium-Albuterol Nebulize 3 ml INHALATION RT-TID 03/14/18 03/14/18 History [Duoneb 0.5 mg-3 mg/3 ml Soln] predniSONE See Taper PO DAILY 03/14/18 03/14/18 History Allergies Allergy/AdvReac Type Severity Reaction Status Date / Time No Known Allergies Allergy Verified 03/14/18 12:18 Physical Exam Vitals: Vital Signs Temp Pulse Pulse Pulse Pulse Resp BP 03/15/18 07:30 98.3 F 68 03/15/18 00:04 18 03/14/18 23:50 98.4 F 63 18 03/14/18 20:59 98.3 F 85 19 03/14/18 20:43 86 03/14/18 20:33 03/14/18 20:28 90 03/14/18 15:36 97.9 F 81 16 03/14/18 13:46 83 93 79 03/14/18 12:30 80 20 03/14/18 10:00 74 15 173/82 03/14/18 09:00 75 14 158/84 03/14/18 08:48 79 15 158/84 03/14/18 08:45 97.5 F L 79 18 158/84 BP BP BP BP Pulse Ox 03/15/18 07:30 166/79 93 L 03/15/18 00:04 03/14/18 23:50 151/76 92 L 03/14/18 20:59 173/75 96 03/14/18 20:43 03/14/18 20:33 95 03/14/18 20:28 03/14/18 15:36 181/84 95 03/14/18 13:46 163/88 121/74 177/82 03/14/18 12:30 95 03/14/18 10:00 97 03/14/18 09:00 97 03/14/18 08:48 94 L 03/14/18 08:45 97 Intake and Output 03/14/18 03/15/18 03/15/18 22:59 06:59 14:59 Intake Total 700 Balance 700 Intake: Intake, IV Titration 40 Amount Sodium Chloride 0.9% 1, 40 000 ml @ 20 mls/hr IV . Q24H [facility] Rx#:[id number] Oral 660 Other: Voiding Method Bedpan Bedpan # Voids 1 2 # Bowel Movements 1 1 Weight 59.421 kg Results - Lab Results Most recent lab results Calcium 8.0 mg/dL (8.4-10.2) L 03/14/18 09:52 Phosphorus 2.5 mg/dL (2.5-4.5) 03/14/18 09:52 Magnesium 1.8 mg/dL (1.6-2.3) 03/14/18 09:52 03/14/18 09:53 03/14/18 09:52 Assessment and Plan Plan: Assessment: 1. End-stage renal disease maintained on hemodialysis on a Thursday schedule via right chest permacath. 2. Diastolic CHF. Currently compensated. 3. Hyponatremia secondary to chronic kidney disease. 4. Hypertension with chronic kidney disease. 5. Hypokalemia from renal losses as well as GI losses. 6. Diarrhea. Rule out C. diff. 7. Chronic kidney disease mineral bone disease maintained on PhosLo. 8. Anemia of chronic kidney disease. Rule out iron deficiency. Plan: Hemodialysis today. Check stool for C. diff. Check potassium level today. Check iron studies. Add Aranesp. I will use high potassium bath with dialysis. Thank you for the consultation. I will continue to follow the patient with you during her hospital stay.
[2018-03-15] MEDS ORDERED: DARBEPOETIN ALFA 40 MCG/0.4 ML SYRINGE SQ SCH (09:00)
[2018-03-15] MEDS: SYMBICORT 160-4.5 MCG INHALER INHALATION SCH ×2 (09:04→21:47)
[2018-03-15] MEDS: IPRATROPIUM-ALBUTEROL 3 ML NEB INHALATION SCH ×3 (09:05→21:49)
[2018-03-15 10:16] LABS: Albumin 2.2 g/dL (3.5-5.0); Calcium 7.7 mg/dL (8.4-10.2); Potassium 3.4 mmol/L (3.5-5.1); Total Bilirubin 0.7 mg/dL (0.2-1.3); Total Protein 4.5 g/dL (6.3-8.2)
[2018-03-15 10:35] LABS: Anisocytosis Slight; Basophils % (A) 0 %; Eosinophils % (A) 0 %; HCT 25.3 % (34.0-46.0); HGB 8.1 gm/dL (11.4-16.0); Hypochromasia Slight; Lymphocytes # (A) 0.3 k/uL (1.0-4.8); Lymphocytes % (A) 2 %; MCH 31.9 pg (25.0-35.0); MCHC 31.9 g/dL (31.0-37.0); MCV 99.8 fL (80.0-100.0); Macrocytosis Moderate; Mean Platelet Volume 7.2; Monocytes % (A) 5 %; Neutrophils # (A) 19.3 k/uL (1.3-7.7); Neutrophils % (A) 92 %; Platelet Count 222 k/uL (150-450); RBC 2.54 m/uL (3.80-5.40); RDW 18.9 % (11.5-15.5); WBC 20.9 k/uL (3.8-10.6)
[2018-03-15] MEDS ORDERED: POTASSIUM CHLORIDE ER 20 MEQ TAB.ER PO STA (10:53)
[2018-03-15] MEDS: SODIUM CHLORIDE 0.9% 1,000 ML IV SCH (11:20)
[2018-03-15] MEDS: CHERRY FLAVOR 60 ML BOTTLE PO SCH ×3 (12:14→23:18)
[2018-03-15] MEDS: VANCOMYCIN ORAL SOLUTION 250 MG/5 ML BOTTLE PO SCH ×3 (12:14→23:19)
[2018-03-15 17:46] LABS: Iron Saturation 12.28 (12.00-45.00)
--- NOTE | 2018-03-15 19:48 | PN ---
PROGRESS NOTE DATE OF SERVICE: 03/15/2018 PRESENTING COMPLAINT: Diarrhea. INTERVAL HISTORY: This patient presented weak, tired; now confirmed to have acute C difficile colitis, started on vancomycin this morning. Feeling weak and tired. at the bedside. Does feel rundown. REVIEW OF SYSTEMS: Done for constitutional, cardiovascular, GI, pulmonary; relevant findings as above. CURRENT MEDICATIONS: Reviewed. They include p.o. vancomycin. PHYSICAL EXAMINATION: Temperature 98.4, pulse 69, respiration 16, blood pressure 147/59, pulse ox 95% on room air. GENERAL APPEARANCE: Lying in bed. Tired-appearing. EYES: Pupils equal. Conjunctivae normal. HEENT: External appearance of nose and ears normal. Oral cavity dry. NECK: JVD unable to assess. Mass not palpable. RESPIRATORY: Effort normal. LUNGS: Decreased breath sounds. CARDIOVASCULAR: First and second sounds normal. No edema. ABDOMEN: Soft, nontender. Liver and spleen not palpable. PSYCHIATRY: Alert and oriented x3. Mood and affect a bit tired-appearing. INVESTIGATIONS: White count 20.9, hemoglobin 8.1, potassium 3.4, BUN 33, creatinine 2.74, sodium 127. ASSESSMENT: 1. Acute Clostridium difficile colitis. 2. Hyponatremia, likely hypo-osmolar. 3. Chronic congestive heart failure from diastolic and systolic dysfunction, ejection fraction 40% to 45%, from hypertensive heart disease. 4. Chronic obstructive pulmonary disease. 5. Paroxysmal atrial fibrillation, currently in sinus rhythm. 6. End-stage kidney disease, on hemodialysis. 7. Hypertensive heart disease. 8. Chronic rheumatoid arthritis. 9. Hyperlipidemia. 10.Anxiety and depression not otherwise specified. 11.Essential hypertension. 12.Mineral bone disease from chronic kidney disease. 13.Anemia of chronic kidney disease. PLAN: Continue with vancomycin. Patient is advanced to full liquid. I had a lengthy talk with the patient and her . They were concerned about recurrent infection. I did explain to them that the patient's overall prognosis is guarded, given her weak immune system and given that the patient was hospitalized. 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 We also talked about the patient's disposition. The patient will probably go to rehab from here. The patient and expressed understanding. Total time spent today was about 40 minutes with over 25 minutes of discussion. MMODL / IJN: [id number] /
[2018-03-15] MEDS: MELATONIN 3 MG TABLET PO SCH (20:48)
[2018-03-15] MEDS: SERTRALINE 50 MG TAB PO SCH (20:48)
[2018-03-16] MEDS: CHERRY FLAVOR 60 ML BOTTLE PO SCH ×4 (05:54→23:07)
[2018-03-16] MEDS: VANCOMYCIN ORAL SOLUTION 250 MG/5 ML BOTTLE PO SCH ×4 (05:54→23:07)
[2018-03-16] MEDS: PANTOPRAZOLE 40 MG/10 ML VIAL IV SCH (08:28)
[2018-03-16] MEDS: amLODIPine 10 MG TAB PO SCH (08:29)
[2018-03-16] MEDS: hydrALAZINE HCL 25 MG TAB PO SCH ×3 (08:29→23:05)
[2018-03-16] MEDS: ALLOPURINOL 100 MG TAB PO SCH (08:29)
[2018-03-16] MEDS: APIXABAN 2.5 MG TABLET PO SCH ×2 (08:29→23:04)
[2018-03-16] MEDS: AMIODARONE 100 MG TAB PO SCH (08:29)
[2018-03-16] MEDS: CALCIUM ACETATE 667 MG CAP PO SCH ×3 (08:29→17:29)
[2018-03-16] MEDS: METOPROLOL TARTRATE 50 MG TAB PO SCH ×2 (08:29→23:04)
[2018-03-16] MEDS: SYMBICORT 160-4.5 MCG INHALER INHALATION SCH ×2 (08:40→20:27)
[2018-03-16] MEDS: IPRATROPIUM-ALBUTEROL 3 ML NEB INHALATION SCH ×4 (09:10→20:31)
--- NOTE | 2018-03-16 09:50 | P.PN ---
Subjective Patient is seen in follow-up for end-stage renal disease. She is maintained on hemodialysis on a Thursday schedule. Patient presented with diarrhea. She is noted to be C. diff positive. Continues to have loose bowel movements. Oral intake is fair. Hemodynamically stable. Tolerated dialysis well yesterday. Vital signs are stable. General: The patient appeared well nourished and normally developed. HEENT: Head exam is unremarkable. Neck is without jugular venous distension. LUNGS: Lungs are clear to auscultation and percussion. Breath sounds decreased. HEART: Rate and Rhythm are regular. First and second heart sounds normal. No murmurs, rubs or gallops. ABDOMEN: Abdominal exam reveals normal bowel sounds. Non-tender and non- distended. No evidence of peritonitis. EXTREMITITES: No clubbing, cyanosis, or edema. Objective - Vital Signs Vital signs: Vital Signs Temp 97.9 F 03/16/18 07:00 Pulse 63 03/16/18 07:00 Resp 16 03/16/18 07:00 BP 165/73 03/16/18 07:00 Pulse Ox 98 03/16/18 07:00 Intake & Output 03/15/18 03/16/18 03/16/18 18:59 06:59 18:59 Intake Total 1800 60 Balance 1800 60 Weight 59.421 kg Intake: Intake, IV Titration 60 Amount Sodium Chloride 0.9% 1, 60 000 ml @ 20 mls/hr IV . Q24H [facility] Rx#:[id number] Oral 1800 Other: Voiding Method Bedpan Bedpan # Voids 2 # Bowel Movements 2 - Labs CBC & Chem 7: 03/15/18 08:50 03/15/18 08:50 Labs: Abnormal Lab Results - Last 24 Hours (Table) 03/15/18 03/15/18 03/15/18 Range/Units 08:40 08:50 08:50 WBC 20.9 H (3.8-10.6) k/uL RBC 2.54 L (3.80-5.40) m/uL Hgb 8.1 L (11.4-16.0) gm/dL Hct 25.3 L (34.0-46.0) % RDW 18.9 H (11.5-15.5) % Neutrophils # 19.3 H (1.3-7.7) k/uL Lymphocytes # 0.3 L (1.0-4.8) k/uL Sodium 127 L (137-145) mmol/L Potassium 3.4 L (3.5-5.1) mmol/L Chloride 93 L (98-107) mmol/L BUN 33 H (7-17) mg/dL Creatinine 2.74 H (0.52-1.04) mg/dL Glucose 124 H (74-99) mg/dL Calcium 7.7 L (8.4-10.2) mg/dL Iron (50-170) ug/dL TIBC (228-460) ug/dL Ferritin (10.0-291.0) ng/mL Total Protein 4.5 L (6.3-8.2) g/dL Albumin 2.2 L (3.5-5.0) g/dL C. difficile (EIA) Intrp Positive A (Negative) 03/15/18 Range/Units 08:50 WBC (3.8-10.6) k/uL RBC (3.80-5.40) m/uL Hgb (11.4-16.0) gm/dL Hct (34.0-46.0) % RDW (11.5-15.5) % Neutrophils # (1.3-7.7) k/uL Lymphocytes # (1.0-4.8) k/uL Sodium (137-145) mmol/L Potassium (3.5-5.1) mmol/L Chloride (98-107) mmol/L BUN (7-17) mg/dL Creatinine (0.52-1.04) mg/dL Glucose (74-99) mg/dL Calcium (8.4-10.2) mg/dL Iron 21 L (50-170) ug/dL TIBC 171 L (228-460) ug/dL Ferritin 1026.2 H (10.0-291.0) ng/mL Total Protein (6.3-8.2) g/dL Albumin (3.5-5.0) g/dL C. difficile (EIA) Intrp (Negative) Microbiology - Last 24 Hours (Table) 03/14/18 14:22 Urine Culture - Final Urine,Ureter 03/14/18 09:52 Blood Culture - Preliminary Blood No Growth after 24 hours Assessment and Plan Plan: Assessment: 1. End-stage renal disease maintained on hemodialysis on a Thursday schedule via right chest permacath. 2. Diastolic CHF. Currently compensated. 3. Hyponatremia secondary to chronic kidney disease. 4. Hypertension with chronic kidney disease. 5. Hypokalemia from renal losses as well as GI losses. 6. Diarrhea secondary to C. diff colitis. Maintained on oral vancomycin. 7. Chronic kidney disease mineral bone disease maintained on PhosLo. 8. Anemia of chronic kidney disease. Iron deficiency noted. Plan: Hemodialysis tomorrow. Maintain Aranesp. Follow-up morning labs. Hold off on IV iron at this time due to colitis.
[2018-03-16] MEDS: SODIUM CHLORIDE 0.9% 1,000 ML IV SCH (11:27)
[2018-03-16 12:40] LABS: Calcium 8.1 mg/dL (8.4-10.2); Potassium 4.2 mmol/L (3.5-5.1)
[2018-03-16] MEDS: metroNIDAZOLE 500 MG TAB PO SCH ×2 (16:25→23:05)
--- NOTE | 2018-03-16 20:16 | PN ---
PROGRESS NOTE DATE OF SERVICE: 02/27/18. PRESENTING COMPLAINT: Diarrhea. INTERVAL HISTORY: The patient presented with acute C difficile colitis, started on vancomycin. It is still having quite a bit of diarrhea. The patient's appetite is getting better. No nausea, vomiting. Patient was hemodialyzed yesterday. REVIEW OF SYSTEMS: Done for constitutional, cardiovascular, GI, pulmonary; relevant findings as above. CURRENT MEDICATIONS: Reviewed that include p.o. vancomycin. PHYSICAL EXAMINATION: Temperature 98.9, pulse 77, respirations 16, blood pressure 159/88, pulse ox 91 percent on room air. GENERAL APPEARANCE: Lying in bed, tired appearing. EYES: Pupils equal. Conjunctivae normal. HEENT: External appearance of nose and ears normal. Oral cavity normal. NECK: JVD unable to assess. Mass not palpable. RESPIRATORY: Effort normal. Lungs, decreased breath sounds. CARDIOVASCULAR: 1st and 2nd sounds, no edema. ABDOMEN: Soft, nontender. Liver and spleen not palpable. PSYCHIATRY: Alert and oriented x3. Mood and affect normal. INVESTIGATIONS: Potassium 4.2, BUN 16, creatinine 2.10. ASSESSMENT: 1. Acute C diff colitis, slow to respond. 2. Hyponatremia, likely hypo osmolar. 3. Chronic congestive heart failure from diastolic and systolic dysfunction, EF 40-45 percent from hypertensive heart disease. 4. Chronic obstructive pulmonary disease. 5. Paroxysmal atrial fibrillation currently in sinus rhythm. 6. End-stage kidney disease on hemodialysis. 7. Hypertensive heart disease. 8. Chronic rheumatoid arthritis. 9. Hyperlipidemia. 10.Anxiety, depression, not otherwise specified. 11.Essential hypertension. 12.Mineral bone disease from chronic kidney disease. 13.Anemia of chronic kidney disease. PLAN: At this point we will increase patient's vancomycin dose to 250 mg q.6. We will also add Flagyl 500 mg q.8. The patient will be kept on full liquid. She will be allowed crackers, etc. Care was discussed with the patient. Questions were answered. MMODL / IJN: [id number] /
[2018-03-16] MEDS: MELATONIN 3 MG TABLET PO SCH (23:04)
[2018-03-16] MEDS: SERTRALINE 50 MG TAB PO SCH ×2 (23:05→23:46)
[2018-03-17] MEDS: VANCOMYCIN ORAL SOLUTION 250 MG/5 ML BOTTLE PO SCH ×4 (05:12→23:18)
[2018-03-17] MEDS: CHERRY FLAVOR 60 ML BOTTLE PO SCH ×4 (05:12→23:18)
[2018-03-17] MEDS: IPRATROPIUM-ALBUTEROL 3 ML NEB INHALATION SCH ×3 (06:40→20:32)
[2018-03-17] MEDS: SYMBICORT 160-4.5 MCG INHALER INHALATION SCH ×2 (06:42→20:32)
[2018-03-17] MEDS: hydrALAZINE HCL 25 MG TAB PO SCH ×3 (07:31→21:05)
[2018-03-17] MEDS: metroNIDAZOLE 500 MG TAB PO SCH ×3 (07:31→21:05)
[2018-03-17] MEDS: amLODIPine 10 MG TAB PO SCH (07:31)
[2018-03-17] MEDS: METOPROLOL TARTRATE 50 MG TAB PO SCH ×2 (07:31→21:04)
[2018-03-17] MEDS: ALLOPURINOL 100 MG TAB PO SCH (07:31)
[2018-03-17] MEDS: CALCIUM ACETATE 667 MG CAP PO SCH ×3 (07:32→16:56)
[2018-03-17] MEDS: PANTOPRAZOLE 40 MG/10 ML VIAL IV SCH (07:32)
[2018-03-17] MEDS: AMIODARONE 100 MG TAB PO SCH (07:32)
[2018-03-17] MEDS: APIXABAN 2.5 MG TABLET PO SCH ×2 (07:32→21:05)
[2018-03-17 09:38] LABS: Anisocytosis Slight; Basophils % (A) 0 %; Eosinophils # (A) 0.1 k/uL (0-0.7); Eosinophils % (A) 1 %; HCT 25.6 % (34.0-46.0); HGB 7.8 gm/dL (11.4-16.0); Hypochromasia Marked; Lymphocytes # (A) 0.4 k/uL (1.0-4.8); Lymphocytes % (A) 3 %; MCH 31.6 pg (25.0-35.0); MCHC 30.5 g/dL (31.0-37.0); MCV 103.6 fL (80.0-100.0); Macrocytosis Moderate; Mean Platelet Volume 7.3; Monocytes # (A) 0.7 k/uL (0-1.0); Monocytes % (A) 6 %; Neutrophils # (A) 11.7 k/uL (1.3-7.7); Neutrophils % (A) 89 %; Platelet Count 231 k/uL (150-450); RBC 2.47 m/uL (3.80-5.40); RDW 18.8 % (11.5-15.5); WBC 13.1 k/uL (3.8-10.6)
--- NOTE | 2018-03-17 09:55 | P.PN ---
Subjective Patient is seen in follow-up for end-stage renal disease. She is maintained on hemodialysis on a Thursday schedule. Patient presented with diarrhea. She is noted to be C. diff positive. Continues to have loose bowel movements. Oral intake is fair. Hemodynamically stable. Vital signs are stable. General: The patient appeared well nourished and normally developed. HEENT: Head exam is unremarkable. Neck is without jugular venous distension. LUNGS: Lungs are clear to auscultation and percussion. Breath sounds decreased. HEART: Rate and Rhythm are regular. First and second heart sounds normal. No murmurs, rubs or gallops. ABDOMEN: Abdominal exam reveals normal bowel sounds. Non-tender and non- distended. No evidence of peritonitis. EXTREMITITES: No clubbing, cyanosis, or edema. Objective - Vital Signs Vital signs: Vital Signs Temp 97.8 F 03/17/18 07:00 Pulse 85 03/17/18 07:01 Resp 17 03/17/18 07:30 BP 156/67 03/17/18 07:00 Pulse Ox 94 L 03/17/18 07:00 Intake & Output 03/16/18 03/17/18 03/17/18 18:59 06:59 18:59 Intake Total 220 Balance 220 Intake: Intake, IV Titration 220 Amount Sodium Chloride 0.9% 1, 220 000 ml @ 20 mls/hr IV . Q24H [facility] Rx#:[id number] Other: Voiding Method Bedpan Bedpan # Bowel Movements 1 - Labs CBC & Chem 7: 03/17/18 08:40 03/16/18 12:04 Labs: Abnormal Lab Results - Last 24 Hours (Table) 03/16/18 03/17/18 Range/Units 12:04 08:40 WBC 13.1 H (3.8-10.6) k/uL RBC 2.47 L (3.80-5.40) m/uL Hgb 7.8 L (11.4-16.0) gm/dL Hct 25.6 L (34.0-46.0) % MCV 103.6 H (80.0-100.0) fL MCHC 30.5 L (31.0-37.0) g/dL RDW 18.8 H (11.5-15.5) % Neutrophils # 11.7 H (1.3-7.7) k/uL Lymphocytes # 0.4 L (1.0-4.8) k/uL Sodium 131 L (137-145) mmol/L Creatinine 2.10 H (0.52-1.04) mg/dL Glucose 115 H (74-99) mg/dL Calcium 8.1 L (8.4-10.2) mg/dL Microbiology - Last 24 Hours (Table) 03/14/18 17:30 Stool Culture - Preliminary Stool 03/14/18 09:52 Blood Culture - Preliminary Blood No Growth after 48 hours Assessment and Plan Plan: Assessment: 1. End-stage renal disease maintained on hemodialysis on a Thursday schedule via right chest permacath. 2. Diastolic CHF. Currently compensated. 3. Hyponatremia secondary to chronic kidney disease. 4. Hypertension with chronic kidney disease. 5. Hypokalemia from renal losses as well as GI losses. 6. Diarrhea secondary to C. diff colitis. Maintained on oral vancomycin and flagyl. 7. Chronic kidney disease mineral bone disease maintained on PhosLo. 8. Anemia of chronic kidney disease. Iron deficiency noted. Plan: Hemodialysis today. Maintain Aranesp. Hold off on IV iron at this time due to colitis.
[2018-03-17 10:17] LABS: Magnesium 1.8 mg/dL (1.6-2.3); Potassium 4.1 mmol/L (3.5-5.1)
[2018-03-17] MEDS: SODIUM CHLORIDE 0.9% 1,000 ML IV SCH (16:59)
[2018-03-17] MEDS: SERTRALINE 50 MG TAB PO SCH (21:04)
[2018-03-17] MEDS: MELATONIN 3 MG TABLET PO SCH (21:04)
--- NOTE | 2018-03-17 23:41 | PN ---
PROGRESS NOTE ADDENDUM TO PROGRESS NOTE: DATE OF SERVICE: 03/16/2018 Date of service should read 03/16/2018 (not 02/27/2018). MMODL / IJN: [id number] /
--- NOTE | 2018-03-17 23:44 | PN ---
PROGRESS NOTE DATE OF SERVICE: 03/17/2018 PRESENTING COMPLAINT: Diarrhea. INTERVAL HISTORY: Patient presented with acute C difficile colitis, was on vancomycin. Yesterday the dose of vancomycin was increased and Flagyl was added. Diarrhea started to slow down. Patient is on a full liquid diet. Getting hemodialyzed today. Still tired, though looking a bit better. REVIEW OF SYSTEMS: Done for constitutional, cardiovascular, GI, pulmonary; relevant findings as above. CURRENT MEDICATIONS: Reviewed. They include vancomycin 250 mg 4 times a day and p.o. Flagyl. PHYSICAL EXAMINATION: Temperature 97.9, pulse 75, respiration 16, blood pressure 155/81, pulse ox 92% on room air. GENERAL APPEARANCE: Lying in bed, tired, awake. EYES: Pupils equal. Conjunctivae pale. HEENT: External appearance of nose and ears normal. Oral cavity normal. NECK: JVD unable to assess. Mass not palpable. RESPIRATORY: Effort normal. LUNGS: Decreased breath sounds. CARDIOVASCULAR: First and second sounds normal. No edema. ABDOMEN: Soft, non-tender. Liver and spleen not palpable. PSYCHIATRY: Alert and oriented x3. Mood and affect normal. INVESTIGATIONS: White count 13.1, hemoglobin 7.8, potassium 4.1. ASSESSMENT: 1. Acute Clostridium difficile colitis, slow to respond, though a shade better. 2. Hyponatremia, likely hypo-osmolar. 3. Chronic congestive heart failure from diastolic and systolic dysfunction, ejection fraction 40% to 45%, from hypertensive heart disease. 4. Chronic obstructive pulmonary disease. 5. Paroxysmal atrial fibrillation, currently in sinus rhythm. 6. End-stage kidney disease, on hemodialysis. 7. Hypertensive heart disease. 8. Chronic rheumatoid arthritis. 9. Hyperlipidemia. 10.Anxiety, depression not otherwise specified. 11.Essential hypertension. 12.Mineral bone disease from chronic kidney disease. 13.Anemia of chronic kidney disease. PLAN: Care was discussed with the patient. We will keep the patient on current treatment plan, advance patient to soft bland diet in the morning. Will follow. MMODL / IJN: [id number] /
[2018-03-18 07:55] LABS: Anisocytosis Slight; Basophils % (A) 0 %; Eosinophils # (A) 0.1 k/uL (0-0.7); Eosinophils % (A) 1 %; HCT 28.6 % (34.0-46.0); HGB 8.7 gm/dL (11.4-16.0); Hypochromasia Marked; Lymphocytes # (A) 0.5 k/uL (1.0-4.8); Lymphocytes % (A) 5 %; MCH 31.6 pg (25.0-35.0); MCHC 30.4 g/dL (31.0-37.0); MCV 103.9 fL (80.0-100.0); Macrocytosis Moderate; Monocytes # (A) 0.6 k/uL (0-1.0); Monocytes % (A) 6 %; Neutrophils # (A) 8.2 k/uL (1.3-7.7); Neutrophils % (A) 86 %; Platelet Count 269 k/uL (150-450); RBC 2.75 m/uL (3.80-5.40); RDW 18.3 % (11.5-15.5); WBC 9.6 k/uL (3.8-10.6)
[2018-03-18 08:13] LABS: Calcium 8.3 mg/dL (8.4-10.2); Magnesium 1.8 mg/dL (1.6-2.3); Potassium 4.3 mmol/L (3.5-5.1)
[2018-03-18] MEDS: metroNIDAZOLE 500 MG TAB PO SCH ×3 (08:13→22:39)
[2018-03-18] MEDS: AMIODARONE 100 MG TAB PO SCH (08:14)
[2018-03-18] MEDS: ALLOPURINOL 100 MG TAB PO SCH (08:14)
[2018-03-18] MEDS: METOPROLOL TARTRATE 50 MG TAB PO SCH ×2 (08:14→22:38)
[2018-03-18] MEDS: hydrALAZINE HCL 25 MG TAB PO SCH ×3 (08:14→22:39)
[2018-03-18] MEDS: APIXABAN 2.5 MG TABLET PO SCH ×2 (08:14→22:37)
[2018-03-18] MEDS: amLODIPine 10 MG TAB PO SCH (08:14)
[2018-03-18] MEDS: CALCIUM ACETATE 667 MG CAP PO SCH ×3 (08:15→17:26)
[2018-03-18] MEDS: PANTOPRAZOLE 40 MG/10 ML VIAL IV SCH (08:15)
[2018-03-18] MEDS: CHERRY FLAVOR 60 ML BOTTLE PO SCH ×3 (08:18→17:26)
[2018-03-18] MEDS: VANCOMYCIN ORAL SOLUTION 250 MG/5 ML BOTTLE PO SCH ×3 (08:19→17:26)
[2018-03-18] MEDS: SYMBICORT 160-4.5 MCG INHALER INHALATION SCH ×2 (08:48→21:51)
[2018-03-18] MEDS: IPRATROPIUM-ALBUTEROL 3 ML NEB INHALATION SCH ×3 (08:48→21:51)
--- NOTE | 2018-03-18 10:13 | CDI ---
Last Revision, April 2017 Documentation Clarification Form Date: 03/18/18 From: Kathya Davis RN Admit Date: 03/14/2018 1:21:00 PM Patient Name: Brittany Levin Visit Number: [id number] ATTENTION: The Clinical Documentation Specialists (CDI) and [facility] Coding Staff appreciate your assistance in clarifying documentation. Please respond to the clarification below the line at the bottom and electronically sign. The CDI & [facility] Coding staff will review the response and follow-up if needed. Please note: Queries are made part of the Legal Health Record. If you have any questions, please contact the author of this message via ITS. Steve Patino MD, Can you please render your opinion on the following documentation? Pt. admitted with weakness/diarrhea, hypokalemia, found to have C-diff. History/Risk Factors: COPD, end stage CKD, HTN, RA, hyperlipidemia, chronic anemia of chronic kidney disease, paroxysmal A FIB, CHF Clinical Indicators: Labs on admission: Albumin 2.6, Total Protein 5.1: 03/15: Albumin 2.2, Total Protein 4.5 Current BMI: 21.8 Insufficient energy intake: Per RD no Per RD notes pt. is underweight, has stage 2 pressure ulcer on buttocks, Pt. needs to increase nutrient needs including protein Decreased hand client support representative strength: weakness noted throughout documentation Per ED note: slight orbital swelling Treatment: Dietary Consult: Yes Supplements/TPN: Nepro. Ordered TID, commercial beverage, Phoslo. Vancomycin and Flagyl Lab monitoring: Total Protein and Albumin In your professional opinion, can you please clarify if these findings signify one of the following conditions? Mild Protein-Calorie Malnutrition Moderate Protein-Calorie Malnutrition Malnutrition, Unspecified Other condition, please specify Unable to determine ___ mild protein calorie malnutrition from decrease calorie intake EMELYD
--- NOTE | 2018-03-18 12:07 | P.PN ---
Subjective Patient is seen in follow-up for end-stage renal disease. She is maintained on hemodialysis on a Thursday schedule. Patient presented with diarrhea. She is noted to be C. diff positive. Continues to have loose bowel movements. Oral intake is fair. Hemodynamically stable. Patient states she developed significant lower extremity edema overnight. Vital signs are stable. General: The patient appeared well nourished and normally developed. HEENT: Head exam is unremarkable. Neck is without jugular venous distension. LUNGS: Lungs are clear to auscultation and percussion. Breath sounds decreased. HEART: Rate and Rhythm are regular. First and second heart sounds normal. No murmurs, rubs or gallops. ABDOMEN: Abdominal exam reveals normal bowel sounds. Non-tender and non- distended. No evidence of peritonitis. EXTREMITITES: 2+ edema. Objective - Vital Signs Vital signs: Vital Signs Temp 98.0 F 03/18/18 07:00 Pulse 87 03/18/18 09:00 Resp 17 03/18/18 08:15 BP 156/71 03/18/18 07:00 Pulse Ox 96 03/18/18 07:00 Intake & Output 03/17/18 03/18/18 03/18/18 18:59 06:59 18:59 Intake Total 300 Balance 300 Weight 59.421 kg Intake: Oral 300 Other: Voiding Method Bedpan Bedside Commode # Voids 2 - Labs CBC & Chem 7: 03/18/18 07:02 03/18/18 07:02 Labs: Abnormal Lab Results - Last 24 Hours (Table) 03/18/18 03/18/18 Range/Units 07:02 07:02 RBC 2.75 L (3.80-5.40) m/uL Hgb 8.7 L (11.4-16.0) gm/dL Hct 28.6 L (34.0-46.0) % MCV 103.9 H (80.0-100.0) fL MCHC 30.4 L (31.0-37.0) g/dL RDW 18.3 H (11.5-15.5) % Neutrophils # 8.2 H (1.3-7.7) k/uL Lymphocytes # 0.5 L (1.0-4.8) k/uL Sodium 132 L (137-145) mmol/L Creatinine 2.09 H (0.52-1.04) mg/dL Calcium 8.3 L (8.4-10.2) mg/dL Microbiology - Last 24 Hours (Table) 03/14/18 17:30 Stool Culture - Final Stool 03/14/18 09:52 Blood Culture - Preliminary Blood No Growth after 72 hours Assessment and Plan Plan: Assessment: 1. End-stage renal disease maintained on hemodialysis on a Thursday schedule via right chest permacath. 2. Diastolic CHF. 3. Hyponatremia secondary to chronic kidney disease. Currently hypervolemic. 4. Hypertension with chronic kidney disease. 5. Hypokalemia from renal losses as well as GI losses. 6. Diarrhea secondary to C. diff colitis. Maintained on oral vancomycin and flagyl. 7. Chronic kidney disease mineral bone disease maintained on PhosLo. 8. Anemia of chronic kidney disease. Iron deficiency noted. 9. Lower extremity edema. Rule out DVT. Plan: Hemodialysis tomorrow. Maintain Aranesp. Hold off on IV iron at this time due to colitis. Add Lasix 80 mg IV twice daily. Check lower extremity ultrasound.
[2018-03-18] MEDS: FUROSEMIDE 10 MG/ML 10 ML VIAL IV SCH ×2 (12:52→22:37)
[2018-03-18] MEDS: SODIUM CHLORIDE 0.9% 1,000 ML IV SCH (15:52)
--- NOTE | 2018-03-18 15:54 | US ---
EXAMINATION TYPE: US venous doppler duplex LE DATE OF EXAM: 03/18/2018 3:00 PM COMPARISON: NONE CLINICAL HISTORY: edema. Bilateral leg pain and swelling x 1 day, patient on blood thinners, exam don e portable. SIDE PERFORMED: Bilateral TECHNIQUE: The lower extremity deep venous system is examined utilizing real time linear array sonog norah with graded compression, doppler sonography and color-flow sonography. VESSELS IMAGED: External Iliac Vein (EIV) Common Femoral Vein Deep Femoral Vein Greater Saphenous Vein * Femoral Vein Popliteal Vein Small Saphenous Vein * Proximal Calf Veins (* superficial vessels) There is normal flow, compressibility, vascular waveforms. Right Leg: Appears negative for DVT Left Leg: Appears negative for DVT Edema channels are noted in the legs. IMPRESSION: No evident deep venous thrombosis at or above the knees. Subcutaneous edema noted inciden tally.
--- NOTE | 2018-03-18 18:45 | PN ---
PROGRESS NOTE DATE OF SERVICE: 03/18/2018 PRESENTING COMPLAINT: Tired. INTERVAL HISTORY: This patient presented with acute C difficile colitis, currently on vancomycin and Flagyl. Diarrhea has started to back off. Patient did sit up yesterday, has developed some edema. Did get hemodialyzed today and about 1.5 L was removed. Patient is on a full liquid diet. REVIEW OF SYSTEMS: Done for constitutional, cardiovascular, GI, pulmonary; relevant findings as above. CURRENT MEDICATIONS: Reviewed. They include p.o. vancomycin and Flagyl. PHYSICAL EXAMINATION: Temperature 98.2, pulse 60, respiration 16, blood pressure 157/70, pulse ox 96% on room air. GENERAL APPEARANCE: Patient is looking peppier, sitting up. EYES: Pupils equal. Conjunctivae pale. HEENT: External appearance of nose and ears normal. Oral cavity normal. NECK: JVD unable to assess. Mass not palpable. RESPIRATORY: Respiratory effort normal. LUNGS: Decreased breath sounds. CARDIOVASCULAR: First and second sounds normal. Edema present. ABDOMEN: Soft, nontender. Liver and spleen not palpable. PSYCHIATRY: Alert and oriented x3. Mood and affect normal. INVESTIGATIONS: White count 9.6, hemoglobin 8.7, potassium 4.3, BUN 9, creatinine 2.09. ASSESSMENT: 1. Acute Clostridium difficile colitis. Patient has started to respond better. 2. Hyponatremia, likely hypo-osmolar. 3. Chronic congestive heart failure from diastolic systolic dysfunction ejection fraction 40% to 45%, from hypertensive heart disease. 4. Chronic obstructive pulmonary disease. 5. Paroxysmal atrial fibrillation, currently in sinus rhythm. 6. End-stage kidney disease, on hemodialysis. 7. Hypertensive heart disease. 8. Chronic rheumatoid arthritis. 9. Hyperlipidemia. 10.Anxiety and depression not otherwise specified. 11.Essential hypertension. 12.Mineral bone disease from chronic kidney disease. 13.Anemia of chronic kidney disease. PLAN: Will order Kb wraps. I spoke to Dr. Wilde. The patient may get more fluid removed tomorrow. If patient continues to improve, she may even be transferred to ECF tomorrow, depending on how she is doing. Diet will be advanced tonight to soft bland. MMODL / IJN: [id number] /
[2018-03-18] MEDS: SERTRALINE 50 MG TAB PO SCH (22:39)
[2018-03-19] MEDS: VANCOMYCIN ORAL SOLUTION 250 MG/5 ML BOTTLE PO SCH ×4 (00:51→17:12)
[2018-03-19] MEDS: CHERRY FLAVOR 60 ML BOTTLE PO SCH ×4 (00:52→17:12)
[2018-03-19] MEDS: MELATONIN 3 MG TABLET PO SCH (02:54)
[2018-03-19] MEDS ORDERED: PANTOPRAZOLE 40 MG TABLET PO SCH (07:30)
[2018-03-19] MEDS: CALCIUM ACETATE 667 MG CAP PO SCH ×3 (07:39→17:12)
[2018-03-19] MEDS: SYMBICORT 160-4.5 MCG INHALER INHALATION SCH (08:24)
[2018-03-19] MEDS: IPRATROPIUM-ALBUTEROL 3 ML NEB INHALATION SCH ×2 (08:24→13:23)
[2018-03-19] MEDS: ALLOPURINOL 100 MG TAB PO SCH (09:12)
[2018-03-19] MEDS: metroNIDAZOLE 500 MG TAB PO SCH ×2 (09:12→16:07)
[2018-03-19] MEDS: APIXABAN 2.5 MG TABLET PO SCH (09:12)
[2018-03-19] MEDS: METOPROLOL TARTRATE 50 MG TAB PO SCH (09:12)
[2018-03-19] MEDS: hydrALAZINE HCL 25 MG TAB PO SCH ×2 (09:12→16:07)
[2018-03-19 10:29] VITALS: BMI 21.1
[2018-03-19] MEDS: amLODIPine 10 MG TAB PO SCH (12:13)
[2018-03-19] MEDS: FUROSEMIDE 10 MG/ML 10 ML VIAL IV SCH (12:14)
[2018-03-19] MEDS: AMIODARONE 100 MG TAB PO SCH (12:18)
--- NOTE | 2018-03-19 14:25 | DS ---
DISCHARGE SUMMARY DATE OF ADMISSION: 03/04/2018 DATE OF DISCHARGE: 03/19/2018 FINAL DIAGNOSES: 1. Acute Clostridium difficile colitis. 2. Hyponatremia, likely hypoosmolar, POA. 3. Chronic congestive heart failure from diastolic and systolic dysfunction, ejection fraction 40%-45% from hypertensive heart disease. 4. Chronic obstructive pulmonary disease. 5. Paroxysmal atrial fibrillation currently in sinus rhythm. 6. End-stage kidney disease, on hemodialysis. 7. Hypertensive heart disease. 8. Chronic rheumatoid arthritis. 9. Hyperlipidemia. 10.Anxiety, depression, not otherwise specified. 11.Essential hypertension. 12.Mineral bone disease from chronic kidney disease. 13.Anemia of chronic kidney disease. 14.Mild protein-calorie malnutrition from decreased oral intake. 15.Stage II sacral decubitus ulcer, present on admission. CONSULTATION: Dr. Wilde from Nephrology. HOSPITAL COURSE: This patient was recently in the hospital with multiple medical problems, presented with acute C diff colitis with multiple stools. Patient really exhausted, treated with vancomycin and Flagyl. Doing better, stools are down to 3-4times a day, tolerating a soft, bland diet. PHYSICAL EXAMINATION: Temperature 98, pulse 64, respirations 18, blood pressure 115/80, pulse ox 94% on room air. ABDOMEN: Soft, nontender. PSYCH: AO x3. LABS: Hemoglobin 8.7, potassium 4.3, BUN 9, creatinine 2.09. DISCHARGE MEDICATIONS: 1. Zoloft 50 mg q.h.s. 2. Norvasc 10 mg p.o. daily. 3. Allopurinol 100 mg p.o. daily. 4. Cordarone 100 mg p.o. daily. 5. Eliquis 2.5 mg p.o. b.i.d. 6. PhosLo 667 mg p.o. t.i.d. with meals. 7. Lopressor 50 mg p.o. b.i.d. 8. Symbicort 160/4.5 two puffs b.i.d. 9. Hydralazine 75 mg p.o. t.i.d. 10.DuoNeb 3 mL t.i.d. 11.Aranesp 40 mcg subcu q.7 days. 12.Melatonin 3 mg p.o. q.h.s. 13.Vancomycin 250 mg solution q.6 for 10 days. 14.Flagyl 500 mg p.o. t.i.d. for 10 days. DISPOSITION: [facility] ECF. CODE STATUS: FULL Hemodialysis schedule to be maintained. Fall precautions. MMODL / IJN: [id number] /
[2018-03-19 15:11] VITALS: BP 152/75; PULSE 62; RESP 14; TEMP 97.6
[2018-03-19] MEDS: SODIUM CHLORIDE 0.9% 1,000 ML IV SCH (15:57)
--- NOTE | 2018-03-19 16:46 | PN ---
PROGRESS NOTE Patient is seen on hemodialysis. She is tolerating her treatment well. She states she still has some diarrhea, although it is improved. PHYSICAL EXAMINATION: This morning blood pressure was 165/67, heart rate of 62 per minute. Patient is afebrile. EXAMINATION OF THE HEART: S1, S2. EXAMINATION OF LUNGS: Bilateral breath sounds are heard. ABDOMEN: Soft, non-tender. Examination of lower extremities shows bilateral extremities to be wrapped. LABS: Sodium 132, potassium 4.3, serum creatinine 2.09, hemoglobin 8.7 g/dL. ASSESSMENT: 1. End-stage renal disease, currently hemodialysis-dependent. Patient did have acute kidney injury. However, she is not able to come off of dialysis, mainly secondary to fluid overload. We will continue to maintain her on a Thursday, Thursday, Thursday schedule for dialysis. 2. Clostridium difficile colitis, symptomatically improved. 3. Diastolic heart failure. 4. Hyponatremia, which was hypervolemic, improved post dialysis. 5. Hypertension with chronic kidney disease. 6. Anemia of chronic disease, maintained on Aranesp. 7. Paroxysmal atrial fibrillation, maintained on anticoagulation. PLAN: 1. Maintain hemodialysis on a Thursday, Thursday, Thursday schedule. 2. Dialysis will be on Thursday. 3. Consider kidney biopsy which can be done as outpatient. MMODL / IJN: [id number] /
--- NOTE | 2018-03-19 23:29 | DS ---
DISCHARGE SUMMARY ADDENDUM: Discussion and discharge planning more than 35 minutes. MMODL / IJN: [id number] /
== END 2018-03-19 17:22 | DRG 371 ==
LOC: EC 08:41 → 4SSUR 13:21
PROVIDERS: ADMIT Hospitalist; ATTEND Hospitalist
PROC: 5A1D70Z Performance of Urinary Filtration, Intermittent, Less than 6 Hours Per Day (ICD-10-PCS; principal; 2018-03-15)
DX: A04.72 Enterocolitis due to Clostridium difficile, not specified as recurrent (principal); N18.6 End stage renal disease; E44.1 Mild protein-calorie malnutrition; E87.1 Hypo-osmolality and hyponatremia; I13.2 Hypertensive heart and chronic kidney disease with heart failure and with stage 5 chronic kidney disease, or end stage renal disease; I50.42 Chronic combined systolic (congestive) and diastolic (congestive) heart failure; N17.9 Acute kidney failure, unspecified; D63.1 Anemia in chronic kidney disease; E78.5 Hyperlipidemia, unspecified; E86.0 Dehydration; E87.6 Hypokalemia; F32.9 Major depressive disorder, single episode, unspecified; F41.9 Anxiety disorder, unspecified; I48.0 Paroxysmal atrial fibrillation; J44.9 Chronic obstructive pulmonary disease, unspecified; L89.152 Pressure ulcer of sacral region, stage 2; M06.9 Rheumatoid arthritis, unspecified; M89.9 Disorder of bone, unspecified; Z79.01 Long term (current) use of anticoagulants; Z79.51 Long term (current) use of inhaled steroids; Z79.899 Other long term (current) drug therapy; Z82.49 Family history of ischemic heart disease and other diseases of the circulatory system; Z86.73 Personal history of transient ischemic attack (TIA), and cerebral infarction without residual deficits; Z87.891 Personal history of nicotine dependence; Z99.2 Dependence on renal dialysis
CPT/HCPCS: 36415; 71046; 80048; 80053; 81001; 82272; 82550; 82553; 82728; 83540; 83550; 83605; 83735; 83880; 84100; 84484; 85025; 85610; 85730; 87040; 87045; 87046; 87086; 87324; 90935; 93005; 93970; 94640; 96360; 96361; 99285

== ENCOUNTER 2018-04-03 23:20 | Inpatient (IN) | payer MEDICARE, BC ==
[2018-04-04 00:15] LABS: Anisocytosis Slight; Basophils % (A) 0 %; Eosinophils % (A) 0 %; HCT 25.4 % (34.0-46.0); HGB 7.9 gm/dL (11.4-16.0); Hypochromasia Slight; Lymphocytes # (A) 0.2 k/uL (1.0-4.8); Lymphocytes % (A) 1 %; MCH 31.6 pg (25.0-35.0); MCHC 30.9 g/dL (31.0-37.0); MCV 102.2 fL (80.0-100.0); Macrocytosis Moderate; Mean Platelet Volume 6.6; Monocytes # (A) 0.3 k/uL (0-1.0); Monocytes % (A) 2 %; Neutrophils # (A) 14.7 k/uL (1.3-7.7); Neutrophils % (A) 96 %; Platelet Count 288 k/uL (150-450); RBC 2.49 m/uL (3.80-5.40); RDW 17.2 % (11.5-15.5); WBC 15.3 k/uL (3.8-10.6)
[2018-04-04 00:25] LABS: Calcium 8.8 mg/dL (8.4-10.2); Potassium 3.8 mmol/L (3.5-5.1); Total Bilirubin 0.5 mg/dL (0.2-1.3); Total Protein 5.6 g/dL (6.3-8.2)
[2018-04-04 00:29] LABS: Partial Thromboplastin Time 24.8 sec (22.0-30.0); Prothrombin Time 9.9 sec (9.0-12.0)
[2018-04-04 00:35] LABS: Creatine Kinase <20 U/L (30-135)
--- NOTE | 2018-04-04 00:42 | XR ---
EXAMINATION TYPE: XR chest 2V DATE OF EXAM: 04/04/2018 COMPARISON: 03/14/2018 HISTORY: Weakness. Difficulty breathing TECHNIQUE: Frontal and lateral views of the chest are obtained. FINDINGS: There is pulmonary vascular congestion. There is a dual-lumen right central venous cathete r with the tip in the top of the right atrium. There is bilateral blunting of the costophrenic angles . There are chest leads. IMPRESSION: There is increasing pulmonary vascular congestion and pleural fluid compared to last exa m and consistent with worsening congestive heart failure.
[2018-04-04 00:48] LABS: Creatine Kinase MB 1.1 ng/mL (0.0-2.4); Troponin I 0.022 ng/mL (0.000-0.034)
[2018-04-04] MEDS ORDERED: FUROSEMIDE 10 MG/ML 4 ML VIAL IV STA (01:28)
[2018-04-04] MEDS ORDERED: NALOXONE 0.4 MG/ML 1 ML VIAL IV PRN (01:29)
--- NOTE | 2018-04-04 01:44 | ED ---
SOB HPI - General Chief Complaint: Shortness of Breath Stated Complaint: Kidney Failure, SOB Time Seen by Provider: 04/03/18 23:36 Source: EMS Mode of arrival: EMS Limitations: no limitations - History of Present Illness Initial Comments: Patient is a 72-year-old female presenting for shortness of breath. The patient states that she gets dialysis Thursday and has been compliant with that. However, she admits to drinking a significant amount of fluids yesterday and thinks that this may have caused her to be, more short of breath. She was seen at outside facility and transferred here. She admits to shortness breath is well cough but no fevers or chills. She denies any nausea/ vomiting/diarrhea. - Related Data Home Medications Medication Instructions Recorded Confirmed Sertraline HCl [Zoloft] 50 mg PO HS 04/30/17 03/14/18 Allopurinol [Zyloprim] 100 mg PO DAILY 09/09/17 03/14/18 Budesonide-Formot 160-4.5 Mcg 2 puff INHALATION RT-BID 02/25/18 03/14/18 [Symbicort 160-4.5 Mcg Inhaler] Ipratropium-Albuterol Nebulize 3 ml INHALATION RT-TID 03/14/18 03/14/18 [Duoneb 0.5 mg-3 mg/3 ml Soln] Previous Rx's Medication Instructions Recorded amLODIPine [Norvasc] 10 mg PO DAILY tab 07/16/17 Amiodarone [Cordarone] 100 mg PO DAILY tab 02/06/18 Apixaban [Eliquis] 2.5 mg PO BID #60 tablet 02/06/18 Calcium Acetate [PhosLo] 667 mg PO TID-W/MEALS #90 cap 02/06/18 Metoprolol Tartrate [Lopressor] 50 mg PO BID #60 tab 02/06/18 hydrALAZINE HCL [Apresoline] 75 mg PO TID tab 03/04/18 Darbepoetin Zhou [Aranesp] 40 mcg SQ Q7D syringe 03/19/18 Melatonin 3 mg PO HS tablet 03/19/18 Vancomycin Oral Solution 250 mg PO Q6HR 10 Days #200 ml 03/19/18 metroNIDAZOLE [Flagyl] 500 mg PO TID #30 tab 11/02/18 Allergies Allergy/AdvReac Type Severity Reaction Status Date / Time No Known Allergies Allergy Verified 03/14/18 12:18 Review of Systems ROS Statement: Those systems with pertinent positive or pertinent negative responses have been documented in the HPI. Constitutional: Negative for chills, fatigue and fever. HENT: Negative for congestion. Respiratory: Negative for chest tightness, wheezing. Negative for cough. Positive for shortness of breath Cardiovascular: Negative for chest pain and palpitations. Positive for bilateral lower leg swelling Gastrointestinal: Negative for abdominal pain. Negative for abdominal distention , diarrhea, nausea and vomiting. Genitourinary: Negative for dysuria. Musculoskeletal: Negative for back pain, neck pain and neck stiffness. Skin: Negative for color change. Neurological: Negative for dizziness, speech difficulty, weakness and light- headedness. Psychiatric/Behavioral: Negative for agitation and confusion. Negative for anxiety ROS Other: All systems not noted in ROS Statement are negative. Past Medical History Past Medical History: Atrial Fibrillation, Asthma, Heart Failure, CVA/TIA, Hypertension, Osteoarthritis (OA), Pneumonia Additional Past Medical History / Comment(s): CVA 2006 recent ARF had dialysis cath inserted 02-02-18 gets dialysis Thu-Thu-Thu. History of Any Multi-Drug Resistant Organisms: None Reported Past Surgical History: Tonsillectomy Additional Past Surgical History / Comment(s): ORIF rt ankle-[address], IUD removal, lumbar steroid injections, dental implants, cardioversion, dialysis cath. Past Anesthesia/Blood Transfusion Reactions: No Reported Reaction Additional Past Anesthesia/Blood Transfusion Reaction / Comment(s): Past blood transfusions - no reaction Past Psychological History: No Psychological Hx Reported Smoking Status: Never smoker Past Alcohol Use History: None Reported Past Drug Use History: None Reported - Past Family History Mother Additional Family Medical History / Comment(s): Mother in her 80s from abdominal aortic aneurysm. Father Family Medical History: Myocardial Infarction ([place]) Additional Family Medical History / Comment(s): Father at age 52 from acute [place]. General Exam - General Exam Comments Initial Comments: Constitutional: Pt is oriented to person, place, and time. Pt appears well- developed and well-nourished. No distress. HENT: Head: Normocephalic and atraumatic. Eyes: EOM are normal. Neck: Normal range of motion. Neck supple. Cardiovascular: Normal rate, regular rhythm, S1 normal, S2 normal and normal heart sounds. Exam reveals no gallop and no friction rub. No murmur heard. 3+ pitting edema bilateral lower extremities Pulmonary/Chest: Effort normal and breath sounds normal. No tachypnea and no bradypnea. No respiratory distress. No wheezes or rales noted. Abdominal: Soft. Bowel sounds are normal. Pt exhibits no shifting dullness, no distension, no pulsatile liver, no fluid wave, no abdominal bruit and no ascites. There is no tenderness. There is no rigidity, no rebound, no guarding, no tenderness at McBurney's point and negative Sky's sign. Musculoskeletal: Normal range of motion. Neurological: Pt is alert and oriented to person, place, and time. No cranial nerve deficit. Skin: Skin is warm and dry. No rash noted. Pt is not diaphoretic. No erythema. No pallor. Psychiatric: Pt has a normal mood and affect. Pt behavior is normal. Thought content normal. Limitations: no limitations Course Vital Signs 04/03/18 23:32 Temperature 98.3 F Pulse Rate 75 Respiratory 18 Rate Blood Pressure 146/73 O2 Sat by Pulse 97 Oximetry Medical Decision Making - Medical Decision Making Lavatory studies showed that there was mild leukocytosis of 15.3 but was actually improved from prior studies. There is no evidence of overt infection has a chest x-ray showed pulmonary congestion but no focal pneumonias. BNP was also elevated at 42,000 and troponin was noted to be within normal limits. Because of these findings, patient was given another 40 mg Lasix. Patient remained hemodynamically stable here in the emergency department and therefore nephrology was not emergently contacted for dialysis at night. It is soft and patient can wait till the morning for dialysis because of his hemodynamic stability.Explained all labs and diagnostic test results and that we will admit patient to hospital. Pt is agreeable to plan and will be admitted to Dr. Hudson. - Lab Data Result diagrams: 04/04/18 00:01 04/04/18 00:01 Lab Results 04/04/18 04/04/18 04/04/18 Range/Units 00:01 00:01 00:01 WBC 15.3 H (3.8-10.6) k/uL RBC 2.49 L (3.80-5.40) m/uL Hgb 7.9 L (11.4-16.0) gm/dL Hct 25.4 L (34.0-46.0) % MCV 102.2 H (80.0-100.0) fL MCH 31.6 (25.0-35.0) pg MCHC 30.9 L (31.0-37.0) g/dL RDW 17.2 H (11.5-15.5) % Plt Count 288 (150-450) k/uL Neutrophils % 96 % Lymphocytes % 1 % Monocytes % 2 % Eosinophils % 0 % Basophils % 0 % Neutrophils # 14.7 H (1.3-7.7) k/uL Lymphocytes # 0.2 L (1.0-4.8) k/uL Monocytes # 0.3 (0-1.0) k/uL Eosinophils # 0.0 (0-0.7) k/uL Basophils # 0.0 (0-0.2) k/uL Hypochromasia Slight Anisocytosis Slight Macrocytosis Moderate PT (9.0-12.0) sec INR (<1.2) APTT (22.0-30.0) sec Sodium 134 L (137-145) mmol/L Potassium 3.8 (3.5-5.1) mmol/L Chloride 98 (98-107) mmol/L Carbon Dioxide 29 (22-30) mmol/L Anion Gap 7 mmol/L BUN 27 H (7-17) mg/dL Creatinine 3.17 H (0.52-1.04) mg/dL Est GFR (CKD-EPI)AfAm 16 (>60 ml/min/1.73 sqM) Est GFR (CKD-EPI)NonAf 14 (>60 ml/min/1.73 sqM) Glucose 161 H (74-99) mg/dL Calcium 8.8 (8.4-10.2) mg/dL Total Bilirubin 0.5 (0.2-1.3) mg/dL AST 20 (14-36) U/L ALT 25 (9-52) U/L Alkaline Phosphatase 108 (38-126) U/L Total Creatine Kinase <20 L (30-135) U/L CK-MB (CK-2) 1.1 (0.0-2.4) ng/mL CK-MB (CK-2) Rel Index Troponin I 0.022 (0.000-0.034) ng/mL NT-Pro-B Natriuret Pep pg/mL Total Protein 5.6 L (6.3-8.2) g/dL Albumin 3.0 L (3.5-5.0) g/dL 04/04/18 04/04/18 Range/Units 00:01 00:01 WBC (3.8-10.6) k/uL RBC (3.80-5.40) m/uL Hgb (11.4-16.0) gm/dL Hct (34.0-46.0) % MCV (80.0-100.0) fL MCH (25.0-35.0) pg MCHC (31.0-37.0) g/dL RDW (11.5-15.5) % Plt Count (150-450) k/uL Neutrophils % % Lymphocytes % % Monocytes % % Eosinophils % % Basophils % % Neutrophils # (1.3-7.7) k/uL Lymphocytes # (1.0-4.8) k/uL Monocytes # (0-1.0) k/uL Eosinophils # (0-0.7) k/uL Basophils # (0-0.2) k/uL Hypochromasia Anisocytosis Macrocytosis PT 9.9 (9.0-12.0) sec INR 1.0 (<1.2) APTT 24.8 (22.0-30.0) sec Sodium (137-145) mmol/L Potassium (3.5-5.1) mmol/L Chloride (98-107) mmol/L Carbon Dioxide (22-30) mmol/L Anion Gap mmol/L BUN (7-17) mg/dL Creatinine (0.52-1.04) mg/dL Est GFR (CKD-EPI)AfAm (>60 ml/min/1.73 sqM) Est GFR (CKD-EPI)NonAf (>60 ml/min/1.73 sqM) Glucose (74-99) mg/dL Calcium (8.4-10.2) mg/dL Total Bilirubin (0.2-1.3) mg/dL AST (14-36) U/L ALT (9-52) U/L Alkaline Phosphatase (38-126) U/L Total Creatine Kinase (30-135) U/L CK-MB (CK-2) (0.0-2.4) ng/mL CK-MB (CK-2) Rel Index Troponin I (0.000-0.034) ng/mL NT-Pro-B Natriuret Pep 40341 pg/mL Total Protein (6.3-8.2) g/dL Albumin (3.5-5.0) g/dL - EKG Data EKG Comments: EKG shows normal sinus rhythm with a rate of 75 bpm, IA interval 170, QRS duration 102, QTC 475. There are mild ST elevations less than 1 mm in V1 and no significant ST depressions throughout. Disposition Clinical Impression: Systolic congestive heart failure, ESRD (end stage renal disease) Disposition: ADMITTED IP TO THIS HOSP Condition: Fair Referrals: Soren Desai MD [Primary Care Provider] - 1-2 days Decision to Admit Reason: Admit from EC Decision Date: 04/04/18 Decision Time: 01:44
--- NOTE | 2018-04-04 09:54 | P.NPCON ---
History of Present Illness - Reason for Consult end stage renal disease - History of Present Illness Reason for consultation: End-stage renal disease History of present illness: Patient is a 72-year-old female seen in renal consultation for end-stage renal disease. She is maintained on hemodialysis on a Thursday schedule. Right chest permacath. Patient resides at an extended care facility in [facility]. Patient states she completed dialysis on Thursday and was feeling well. She believes she drank too much fluids over the weekend and became acutely short of breath. Chest x-ray suggestive of vascular congestion. Patient's breathing is still quite labored. She denies chest pain. She was admitted about 2 weeks ago and at that time was noted to have C. diff colitis. Patient is unsure if she is on any antibiotics at this time or not. Patient states her stool is more formed now. Hemodynamically stable. She's afebrile. Electrolytes are in normal range. Vital signs are stable. General: The patient appeared well nourished and normally developed. HEENT: Head exam is unremarkable. Neck is without jugular venous distension. LUNGS: Breath sounds decreased. Scattered rhonchi. HEART: Rate and Rhythm are regular. First and second heart sounds normal. No murmurs, rubs or gallops. ABDOMEN: Abdominal exam reveals normal bowel sounds. Non-tender and non- distended. No evidence of peritonitis. EXTREMITITES: No clubbing, cyanosis, or edema. Past Medical History Past Medical History: Atrial Fibrillation, Asthma, Heart Failure, CVA/TIA, Hypertension, Osteoarthritis (OA), Pneumonia Additional Past Medical History / Comment(s): CVA 2006 recent ARF had dialysis cath inserted 02-02-18 gets dialysis Thu-Thu-Thu. History of Any Multi-Drug Resistant Organisms: None Reported Past Surgical History: Tonsillectomy Additional Past Surgical History / Comment(s): ORIF rt ankle-[address], IUD removal, lumbar steroid injections, dental implants, cardioversion, dialysis cath. Past Anesthesia/Blood Transfusion Reactions: No Reported Reaction Additional Past Anesthesia/Blood Transfusion Reaction / Comment(s): Past blood transfusions - no reaction Past Psychological History: No Psychological Hx Reported Smoking Status: Never smoker Past Alcohol Use History: None Reported Additional Past Alcohol Use History / Comment(s): Patient smoked one and half packs of cigarettes per day started in 1973 and quit 2007. Patient used to drink heavily-none now Past Drug Use History: None Reported - Past Family History Mother Additional Family Medical History / Comment(s): Mother in her 80s from abdominal aortic aneurysm. Father Family Medical History: Myocardial Infarction ([place]) Additional Family Medical History / Comment(s): Father at age 52 from acute [place]. Medications and Allergies Home Medications Medication Instructions Recorded Confirmed Type Sertraline HCl [Zoloft] 50 mg PO HS 04/30/17 04/04/18 History amLODIPine [Norvasc] 10 mg PO DAILY tab 07/16/17 04/04/18 Rx Allopurinol [Zyloprim] 100 mg PO DAILY 09/09/17 04/04/18 History Amiodarone [Cordarone] 100 mg PO DAILY tab 02/06/18 04/04/18 Rx Apixaban [Eliquis] 2.5 mg PO BID #60 tablet 02/06/18 04/04/18 Rx Metoprolol Tartrate [Lopressor] 50 mg PO BID #60 tab 02/06/18 04/04/18 Rx hydrALAZINE HCL [Apresoline] 75 mg PO TID tab 03/04/18 04/04/18 Rx Ipratropium-Albuterol Nebulize 3 ml INHALATION RT-TID 03/14/18 04/04/18 History [Duoneb 0.5 mg-3 mg/3 ml Soln] Acetaminophen Tab [Tylenol Tab] 650 mg PO Q4H PRN 04/04/18 04/04/18 History Fluticasone/Vilanterol [Breo 1 puff INHALATION RT-DAILY 04/04/18 04/04/18 History Ellipta 100-25 Mcg Inhaler] Furosemide [Lasix] 20 mg PO BID@1000,1600 04/04/18 04/04/18 History Melatonin 10 mg PO HS 04/04/18 04/04/18 History Spironolactone [Aldactone] 25 mg PO DAILY 04/04/18 04/04/18 History Allergies Allergy/AdvReac Type Severity Reaction Status Date / Time No Known Allergies Allergy Verified 04/04/18 08:55 Physical Exam Vitals: Vital Signs Temp Pulse Pulse Resp BP BP Pulse Ox 04/04/18 03:12 70 24 04/04/18 02:30 70 10 L 155/82 98 04/04/18 02:27 97.8 F 73 24 145/87 96 04/04/18 02:20 68 8 L 155/82 99 04/04/18 02:10 70 12 155/82 100 04/04/18 02:00 71 14 156/82 99 04/04/18 01:50 71 6 L 156/82 99 04/04/18 01:40 72 3 L 156/82 97 04/04/18 01:30 77 32 H 156/82 97 04/04/18 01:20 73 13 156/82 99 04/04/18 01:10 71 13 156/82 99 04/04/18 01:00 70 12 151/80 100 04/04/18 00:50 70 14 151/80 99 04/04/18 00:40 73 10 L 151/80 97 04/04/18 00:30 75 11 L 151/80 95 04/04/18 00:20 75 13 151/80 96 04/04/18 00:10 75 12 151/80 97 04/04/18 00:00 74 21 146/73 97 04/03/18 23:50 75 20 146/73 97 04/03/18 23:40 75 20 146/73 97 04/03/18 23:32 98.3 F 75 18 146/73 97 04/03/18 23:30 76 26 H 95 04/03/18 23:27 97 Intake and Output 04/03/18 04/04/18 04/04/18 22:59 06:59 14:59 Intake Total 480 120 Balance 480 120 Intake: Oral 480 120 Other: Voiding Method Indwelling Catheter Weight 62.2 kg Results - Lab Results Most recent lab results Calcium 8.8 mg/dL (8.4-10.2) 04/04/18 00:01 04/04/18 00:01 04/04/18 00:01 Assessment and Plan Plan: Assessment: 1. End-stage renal disease maintained on hemodialysis on a Thursday schedule. Right chest permacath. 2. Hypertension with chronic kidney disease. Partially volume sensitive. 3. Dyspnea secondary to volume overload. 4. Hyponatremia secondary to chronic kidney disease. Patient is currently hypervolemic. 5. Diastolic CHF. 6. Recent C. diff colitis. 7. Anemia of chronic kidney disease. Rule out iron deficiency. 8. Chronic kidney disease mineral bone disease. Plan: Short hemodialysis treatment today with goal 2-3 L ultrafiltration. Another treatment tomorrow per her outpatient schedule. Start Lasix 80 mg orally twice daily. Check iron studies. Add Aranesp. Check phosphorus level. Thank you for the consultation. I will continue to follow the patient with you during her hospital stay.
[2018-04-04] MEDS ORDERED: DARBEPOETIN ALFA 40 MCG/0.4 ML SYRINGE SQ SCH (12:00)
[2018-04-04] MEDS: IPRATROPIUM-ALBUTEROL 3 ML NEB INHALATION SCH ×2 (12:35→20:10)
[2018-04-04] MEDS: LORazepam 0.5 MG TAB PO PRN (14:00)
[2018-04-04] MEDS: SPIRONOLACTONE 25 MG TAB PO SCH (16:46)
[2018-04-04] MEDS: FUROSEMIDE 80 MG TAB PO SCH (16:46)
[2018-04-04] MEDS: hydrALAZINE HCL 25 MG TAB PO SCH ×2 (16:46→22:03)
[2018-04-04] MEDS: ALLOPURINOL 100 MG TAB PO SCH (16:46)
[2018-04-04] MEDS: amLODIPine 10 MG TAB PO SCH (16:46)
[2018-04-04] MEDS: METOPROLOL TARTRATE 50 MG TAB PO SCH ×2 (16:46→22:02)
[2018-04-04] MEDS: AMIODARONE 100 MG TAB PO SCH (16:47)
--- NOTE | 2018-04-04 20:59 | HP ---
HISTORY AND PHYSICAL DATE OF ADMISSION: 04/04/2018 DATE OF SERVICE: 04/04/2018 PRESENTING COMPLAINT: Short of breath, edema. HISTORY OF PRESENTING COMPLAINT: This is a pleasant 72-year-old patient with extensive medical history. Chronic stable medical conditions include COPD, end-stage kidney disease on hemodialysis, hypertensive heart disease, rheumatoid arthritis, hyperlipidemia, anxiety, depression, chronic anemia. The patient has been getting a scheduled hemodialysis but progressively patient is becoming more and more short of breath, increasing swelling of the lower extremity and brought in with fluid overload. No fever. No chills. Appetite is fair. Bowel movements on recent admission that was 2 weeks ago. The patient has C diff colitis. The patient is getting hemodialyzed today and plan is to remove 3 L of fluid. REVIEW OF SYSTEMS: CONSTITUTIONAL: Weak and tired. HEENT decreased hearing. RESPIRATORY: As above. CARDIOVASCULAR: As above. GASTROINTESTINAL: None. GENITOURINARY: None. MUSCULOSKELETAL: Some pain in joints. DERMATOLOGICAL, HEMATOLOGIC, LYMPHATICS: None. PSYCHIATRY: Anxiety. NEUROLOGICAL: None. PAST MEDICAL HISTORY: Anemia, chronic kidney disease, chronic mineral bone disease from chronic kidney disease, hypertension, anxiety, depression, hyperlipidemia, rheumatoid arthritis, end- stage kidney disease on hemodialysis, paroxysmal atrial fibrillation, congestive heart failure, EF 40-45 percent. The patient dialysis started recently that is about 2 months ago. PAST SURGICAL HISTORY: Tonsillectomy, ORIF of the right ankle, [address] Lumbar steroid injection, dental implants, cardioversion, dialysis catheter. SOCIAL HISTORY: The patient smoked a pack and a half of cigarettes, stopped 10 years ago. Smoked for 34 years. Did drink heavily in the past. Lives with her . FAMILY HISTORY: Mother had abdominal aortic aneurysm. HOME MEDICATIONS: 1. Hydralazine 75 mg p.o. t.i.d. 2. Norvasc 10 mg a day. 3. Aldactone 25 mg a day. 4. Zoloft 50 mg at bedtime. 5. Lopressor 50 mg b.i.d. 6. Melatonin 10 mg q.h.s. 7. DuoNeb t.i.d. 8. Lasix 20 mg b.i.d. 9. Breo Ellipta 100/25 1 puff daily. 10.Eliquis 2.5 p.o. b.i.d. 11.Cordarone 100 mg p.o. daily. 12.Allopurinol 100 mg p.o. daily. 13.Tylenol 650 mg q.4 p.r.n. ALLERGIES: None. PHYSICAL EXAMINATION: VITAL SIGNS ON PRESENTATION: Temperature 98.3, pulse 75, respiratory 18, blood pressure 146/73, pulse ox 97% on 5 L. GENERAL APPEARANCE: Average build, lying in bed, short of breath, awake. EYES: Pupils equal. Conjunctivae pale. HEENT: External appearance of nose and ears normal. Oral cavity normal. NECK: JVD possibly raised. Mass not palpable. RESPIRATORY: Effort increased. LUNGS basal crackles. CARDIOVASCULAR: 1st and 2nd sounds normal. Edema present. ABDOMEN: Soft, nontender. Liver and spleen not palpable. LYMPHATICS: No lymph nodes palpable in the neck and axilla. PSYCHIATRY: Alert and oriented x3. Mood and affect normal. NEUROLOGICAL: Pupils equal. Cranial nerves grossly intact. Power and sensation grossly intact. INVESTIGATIONS: White count 15.3, hemoglobin 7.9, potassium 3.8, BUN 27, creatinine 3.17. Chest x-ray showing pulmonary edema, right-sided pleural effusion. Chest film was personally reviewed by me. There is also fluid in the horizontal fissure. ASSESSMENT: 1. Acute fluid overload probably from incomplete hemodialysis causing acute pulmonary edema and acute right-sided pleural effusion. Patient will need more aggressive fluid removal during hemodialysis. 2. Acute on chronic congestive heart failure exacerbation from diastolic systolic dysfunction EF 40-45 percent from hypertensive heart disease. 3. Chronic obstructive pulmonary disease. 4. Paroxysmal atrial fibrillation currently in sinus rhythm. 5. End-stage kidney disease on hemodialysis. 6. Hypertensive heart disease. 7. Chronic rheumatoid arthritis. 8. Hyperlipidemia. 9. Anxiety, depression not otherwise specified. 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 11.Anemia of chronic kidney disease. PLAN: Home medications are resumed. Nephrology was consulted. The patient getting hemodialyzed today. Will take out 3 L of fluid, probably will get hemodialyzed also tomorrow. The patient will be put on fluid restriction of 1500 mL a day. Care was discussed with the patient and at the bedside. Prognosis is guarded. Copy to Dr. Desai. MMRODGERL / TRINAN: [id number] /
[2018-04-04] MEDS: MELATONIN 5 MG TABLET PO SCH (22:02)
[2018-04-04] MEDS: APIXABAN 2.5 MG TABLET PO SCH (22:02)
[2018-04-04] MEDS: SERTRALINE 50 MG TAB PO SCH (22:02)
[2018-04-05] MEDS: IPRATROPIUM-ALBUTEROL 3 ML NEB INHALATION SCH ×3 (08:23→21:06)
[2018-04-05] MEDS: SYMBICORT 80-4.5 MCG INHALER INHALATION SCH ×2 (08:23→21:06)
[2018-04-05] MEDS: APIXABAN 2.5 MG TABLET PO SCH ×2 (09:01→19:56)
[2018-04-05] MEDS: LORazepam 0.5 MG TAB PO PRN (09:01)
[2018-04-05 09:34] LABS: Anisocytosis Slight; Basophils % (A) 0 %; Eosinophils % (A) 0 %; HCT 28.8 % (34.0-46.0); HGB 8.8 gm/dL (11.4-16.0); Hypochromasia Moderate; Lymphocytes # (A) 0.4 k/uL (1.0-4.8); Lymphocytes % (A) 4 %; MCHC 30.7 g/dL (31.0-37.0); MCV 104.1 fL (80.0-100.0); Macrocytosis Moderate; Mean Platelet Volume 6.9; Monocytes # (A) 0.6 k/uL (0-1.0); Monocytes % (A) 5 %; Neutrophils # (A) 9.3 k/uL (1.3-7.7); Neutrophils % (A) 89 %; Platelet Count 378 k/uL (150-450); RBC 2.77 m/uL (3.80-5.40); RDW 17.3 % (11.5-15.5); WBC 10.5 k/uL (3.8-10.6)
[2018-04-05 09:39] LABS: Calcium 9.2 mg/dL (8.4-10.2); Potassium 4.3 mmol/L (3.5-5.1)
--- NOTE | 2018-04-05 09:57 | P.PN ---
Subjective Patient is seen in follow-up for end-stage renal disease. She is maintained on hemodialysis on a Thursday schedule via permacath. Patient presented with dyspnea and volume overload. She underwent hemodialysis yesterday with nearly 3 L ultrafiltration and is feeling much better today. Oral intake is fair. No vomiting or diarrhea. Vital signs are stable. General: The patient appeared well nourished and normally developed. HEENT: Head exam is unremarkable. Neck is without jugular venous distension. LUNGS: Breath sounds decreased. HEART: Rate and Rhythm are regular. First and second heart sounds normal. No murmurs, rubs or gallops. ABDOMEN: Abdominal exam reveals normal bowel sounds. Non-tender and non- distended. No evidence of peritonitis. EXTREMITITES: No clubbing, cyanosis, or edema. Objective - Vital Signs Vital signs: Vital Signs Temp 97.8 F 04/05/18 03:58 Pulse 76 04/05/18 08:24 Resp 18 04/05/18 03:58 BP 132/75 04/05/18 03:58 Pulse Ox 98 04/05/18 08:24 Intake & Output 04/04/18 04/05/18 04/05/18 18:59 06:59 18:59 Intake Total 1182 240 240 Output Total 3100 325 Balance -8 -85 240 Weight 63.5 kg Intake: Oral 1182 240 240 Output: Urine 100 325 Other 3000 Other: Voiding Method Indwelling Catheter Indwelling Catheter - Labs CBC & Chem 7: 04/05/18 07:59 04/05/18 07:59 Labs: Abnormal Lab Results - Last 24 Hours (Table) 04/05/18 04/05/18 Range/Units 07:59 07:59 RBC 2.77 L (3.80-5.40) m/uL Hgb 8.8 L (11.4-16.0) gm/dL Hct 28.8 L (34.0-46.0) % MCV 104.1 H (80.0-100.0) fL MCHC 30.7 L (31.0-37.0) g/dL RDW 17.3 H (11.5-15.5) % Neutrophils # 9.3 H (1.3-7.7) k/uL Lymphocytes # 0.4 L (1.0-4.8) k/uL BUN 25 H (7-17) mg/dL Creatinine 2.74 H (0.52-1.04) mg/dL Glucose 118 H (74-99) mg/dL Assessment and Plan Plan: Assessment: 1. End-stage renal disease maintained on hemodialysis on a Thursday schedule via right chest permacath. 2. Hypertension with chronic kidney disease. Partially volume sensitive. Better. 3. Dyspnea secondary to volume overload. Improved. 4. Hyponatremia secondary to chronic kidney disease. Patient is currently hypervolemic. Better postdialysis. 5. Diastolic CHF. 6. Recent C. diff colitis. Status post antibiotics. 7. Anemia of chronic kidney disease. Rule out iron deficiency. 8. Chronic kidney disease mineral bone disease. Plan: Hemodialysis today. Maintain Lasix 80 mg orally twice daily. Follow-upon iron studies. Maintain Aranesp. Phosphorus level at goal.
[2018-04-05 10:22] LABS: Iron Saturation 9.29 (12.00-45.00)
[2018-04-05] MEDS: amLODIPine 10 MG TAB PO SCH (13:46)
[2018-04-05] MEDS: SPIRONOLACTONE 25 MG TAB PO SCH (13:46)
[2018-04-05] MEDS: AMIODARONE 100 MG TAB PO SCH (13:46)
[2018-04-05] MEDS: hydrALAZINE HCL 25 MG TAB PO SCH ×3 (13:46→19:56)
[2018-04-05] MEDS: FUROSEMIDE 80 MG TAB PO SCH ×2 (13:47→19:55)
[2018-04-05] MEDS: METOPROLOL TARTRATE 50 MG TAB PO SCH ×2 (13:47→19:55)
[2018-04-05] MEDS: ALLOPURINOL 100 MG TAB PO SCH (13:47)
[2018-04-05] MEDS: SERTRALINE 50 MG TAB PO SCH (19:56)
--- NOTE | 2018-04-05 20:33 | PN ---
PROGRESS NOTE DATE OF SERVICE: 04/05/2018 PRESENTING COMPLAINT: Short of breath, edema. INTERVAL HISTORY: This is a patient with multiple problems, including end-stage kidney disease. She presented with severe fluid overload. She had 3 L removed yesterday and 3 L removed today. Still some shortness of breath and edema are present. Did tolerate some diet. Lying in bed. REVIEW OF SYSTEMS: Done for constitutional, cardiovascular, GI, pulmonary; relevant findings as above. CURRENT MEDICATIONS: Reviewed. They include Eliquis. PHYSICAL EXAMINATION: Temperature 98.4, pulse 76, respiration 22, blood pressure 144/66, pulse ox 95% on 2 L. GENERAL APPEARANCE: Propped up in bed, slightly short of breath. EYES: Pupils equal. Conjunctivae normal. HEENT: External appearance of nose and ears normal. Oral cavity normal. NECK: JVD raised. Mass not palpable. RESPIRATORY: Effort increased. LUNGS: Some basal crackles. CARDIOVASCULAR: First and second sounds normal. Edema present. ABDOMEN: Soft, nontender. Liver and spleen not palpable. PSYCHIATRY: Alert and oriented x3. Mood and affect normal. INVESTIGATIONS: White count 10.5, hemoglobin 8.8, potassium 4.3. ASSESSMENT: 1. Acute fluid overload, probably from incomplete hemodialysis, causing acute pulmonary edema and acute right-sided pleural effusion, slow to respond. 2. Acute on chronic congestive heart failure exacerbation from diastolic and systolic dysfunction, ejection fraction 40% to 45%, from hypertensive heart disease, slow to respond. 3. Chronic obstructive pulmonary disease. 4. Paroxysmal atrial fibrillation, currently in sinus rhythm. 5. End-stage kidney disease, on hemodialysis. 6. Hypertensive heart disease. 7. Chronic rheumatoid arthritis. 8. Hyperlipidemia. 9. Anxiety and depression not otherwise specified. 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 11.Anemia of chronic kidney disease. PLAN: Patient is doing somewhat better since presentation. The patient probably will benefit from another hemodialysis tomorrow. I did speak to Dr. Wilde, who will arrange for the same. The patient and her are looking into some help for when they go home. breakdown worker is involved. MMODL / IJN: [id number] /
[2018-04-05] MEDS: MELATONIN 5 MG TABLET PO SCH (21:28)
[2018-04-06] MEDS: LORazepam 0.5 MG TAB PO PRN (01:15)
[2018-04-06] MEDS: IPRATROPIUM-ALBUTEROL 3 ML NEB INHALATION SCH ×3 (08:05→20:20)
[2018-04-06] MEDS: SYMBICORT 80-4.5 MCG INHALER INHALATION SCH ×2 (08:05→20:20)
[2018-04-06] MEDS: ALLOPURINOL 100 MG TAB PO SCH (09:01)
[2018-04-06] MEDS: AMIODARONE 100 MG TAB PO SCH (09:01)
[2018-04-06] MEDS: SPIRONOLACTONE 25 MG TAB PO SCH (09:02)
[2018-04-06] MEDS: hydrALAZINE HCL 25 MG TAB PO SCH ×3 (09:02→20:24)
[2018-04-06] MEDS: amLODIPine 10 MG TAB PO SCH (09:02)
[2018-04-06] MEDS: FUROSEMIDE 80 MG TAB PO SCH ×2 (09:02→16:25)
[2018-04-06] MEDS: APIXABAN 2.5 MG TABLET PO SCH ×2 (09:02→20:24)
[2018-04-06] MEDS: METOPROLOL TARTRATE 50 MG TAB PO SCH ×2 (09:02→20:24)
[2018-04-06 15:44] LABS: Hepatitis B Surface AB- Quant 3.5 mIU/mL
[2018-04-06] MEDS: MELATONIN 5 MG TABLET PO SCH (20:24)
[2018-04-06] MEDS: SERTRALINE 50 MG TAB PO SCH (20:24)
--- NOTE | 2018-04-06 22:04 | PN ---
PROGRESS NOTE Patient is seen for followup for end-stage renal disease. Currently, she does not have significant urine output and remains on hemodialysis. Patient is currently volume overloaded. She is scheduled for hemodialysis today. She was seen this morning. Blood pressure was 144/72, heart rate of 60 per minute. Patient is afebrile. Examination of the heart: S1, S2. Examination of the lungs: Bilateral breath sounds are heard. Decreased breath sounds at bases. Abdomen is soft, nontender. Examination of the lower extremities shows no significant edema. [employer] exam is grossly intact. LAB: Show sodium 137, potassium 4.3, BUN 25, serum creatinine 2.74, hemoglobin 8.8 g/dL. ASSESSMENT: 1. End-stage renal disease, currently maintained on hemodialysis. The patient is normally on a Thursday, Thursday, Thursday schedule, which was changed for the holidays. The patient will be dialyzed today and depending on her volume status, she may need another treatment tomorrow. 2. Congestive heart failure, acute on chronic, mainly diastolic dysfunction. 3. Recent C difficile colitis. 4. CKD mineral bone disorder. 5. Anemia of chronic disease. PLAN: Hemodialysis today. Possible dialysis again tomorrow depending on volume status. Encourage increased oral intake. Continue with oral Lasix. MMODL / IJN: [id number] /
--- NOTE | 2018-04-06 23:43 | PN ---
PROGRESS NOTE DATE OF SERVICE: April 06, 2018. PRESENTING COMPLAINT: Short of breath, edema. INTERVAL HISTORY: This patient presented with fluid overload, CHF exacerbation. The patient had 2 consecutive days of 3 L removed. Again getting hemodialysis today. Breathing, short of breath is getting better. Did tolerate some diet. Edema is coming down. In bed. is present. REVIEW OF SYSTEMS: Done for constitutional, cardiovascular, GI, pulmonary; relevant findings as above. CURRENT MEDICATIONS: Reviewed. PHYSICAL EXAMINATION: VITAL SIGNS: Temperature 98.6, pulse 61, respiratory 18, blood pressure 116/72, pulse ox 99% on 3 L. GENERAL APPEARANCE: Lying in bed, more perked up. EYES: Pupils are equal. Conjunctivae normal. HEENT: External appearance of nose and ears normal. Oral cavity normal. NECK: JVD raised. Mass not palpable. RESPIRATORY: Effort increased. LUNGS: Diminished crackles. CARDIOVASCULAR: First and second sounds normal. Decreased edema. ABDOMEN: Soft, nontender. Liver and spleen not palpable. PSYCHIATRY: Alert and oriented x3. Mood and affect normal. INVESTIGATIONS: White count 10.5, hemoglobin 8.8, potassium 4.3. ASSESSMENT: 1. Acute on chronic congestive heart failure exacerbation from diastolic and systolic dysfunction, ejection fraction 40-45 percent from hypertensive heart disease. 2. Acute fluid overload from probably also incomplete hemodialysis with causing acute right-sided pleural effusion, pulmonary edema, improving. 3. Chronic obstructive pulmonary disease. 4. Paroxysmal atrial fibrillation currently in sinus rhythm. 5. End-stage kidney disease on hemodialysis. 6. Hypertensive heart disease. 7. Chronic rheumatoid arthritis. 8. Hyperlipidemia. 9. Anxiety and depression, not otherwise specified. 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 11.Anemia of chronic kidney disease. PLAN: Patient getting dialyzed today. Continues to get better. The patient is due for another dialysis tomorrow. Hopefully can discharge to the ECF. Care was discussed at length with the patient's . bin worker is also involved in discharge planning. MMODL / IJN: [id number] /
[2018-04-07] MEDS: amLODIPine 10 MG TAB PO SCH (07:50)
[2018-04-07] MEDS: AMIODARONE 100 MG TAB PO SCH (07:50)
[2018-04-07] MEDS: hydrALAZINE HCL 25 MG TAB PO SCH ×3 (07:50→20:19)
[2018-04-07] MEDS: SPIRONOLACTONE 25 MG TAB PO SCH (07:50)
[2018-04-07] MEDS: FUROSEMIDE 80 MG TAB PO SCH ×2 (07:50→16:24)
[2018-04-07] MEDS: ALLOPURINOL 100 MG TAB PO SCH (07:51)
[2018-04-07] MEDS: APIXABAN 2.5 MG TABLET PO SCH ×2 (07:51→20:19)
[2018-04-07] MEDS: METOPROLOL TARTRATE 50 MG TAB PO SCH ×2 (07:51→20:19)
[2018-04-07] MEDS: IPRATROPIUM-ALBUTEROL 3 ML NEB INHALATION SCH ×3 (08:18→21:04)
[2018-04-07] MEDS: SYMBICORT 80-4.5 MCG INHALER INHALATION SCH ×2 (08:18→21:04)
[2018-04-07] MEDS: ACETAMINOPHEN TAB 325 MG TAB PO PRN ×2 (16:27→21:53)
--- NOTE | 2018-04-07 17:14 | PN ---
PROGRESS NOTE Patient is seen for followup for end-stage renal disease. She was dialyzed yesterday and had 3 L off. Patient states she is feeling better, although she still remains mildly short of breath. We will dialyze her again today for about 2-1/2 hours. On examination this morning, when patient was seen she was comfortable, not in any acute distress. Blood pressure 129/68, heart rate of 60 per minute. Patient is afebrile. EXAMINATION OF THE HEART: S1, S2. EXAMINATION OF LUNGS: Decreased breath sounds at the bases. Minimal basal crackles are heard. ABDOMEN: Soft, non-tender. Examination of lower extremities shows no significant edema. Labs show sodium 137, potassium 4.3 from 04/05. ASSESSMENT: 1. End-stage renal disease, on hemodialysis normally on a Thursday, Thursday, Thursday schedule. Patient will be dialyzed again today as an extra treatment. She will be dialyzed again on Thursday. 2. Fluid overload, slowly improving. 3. Anemia of chronic disease, maintained on Aranesp. 4. Hypertension, partly volume-sensitive, currently controlled. PLAN: Repeat hemodialysis today with goal UF of about 2 to 3 L. Next dialysis will be on Thursday. Continue current antihypertensive medications. Patient is stable for discharge to ECF/rehab from nephrology standpoint. MMODL / IJN: [id number] /
--- NOTE | 2018-04-07 19:32 | PN ---
PROGRESS NOTE DATE OF SERVICE: 04/07/2018. PRESENTING COMPLAINT: Short of breath. INTERVAL HISTORY: Patient presents with fluid overload, CHF exacerbation. The patient has had over 10 L of fluid removed in the last 3 days with hemodialysis. Breathing is much improved. Tolerating some diet. present. Edema is coming down nicely. The patient had 4 consecutive days of hemodialysis. REVIEW OF SYSTEMS: Done for constitutional, cardiovascular, GI, pulmonary; relevant findings as above. CURRENT MEDICATIONS: Reviewed. PHYSICAL EXAMINATION: VITAL SIGNS: Temperature 98.1, pulse 66, respiratory 18, blood pressure 140/52, pulse ox 97% on 3 L. GENERAL APPEARANCE: Lying in bed, more comfortable today. EYES: Pupils are equal. Conjunctivae normal. HEENT: External appearance of nose and ears normal. Oral cavity normal. NECK: JVD unable to assess. Mass not palpable. RESPIRATORY: Effort improved. LUNGS: Much improved air entry. CARDIOVASCULAR: 1st and 2nd sounds normal. Some edema in the left leg. ABDOMEN: Soft, nontender. Liver and spleen not palpable. PSYCHIATRY: Alert and oriented x3. Mood and affect normal. INVESTIGATIONS: No blood work from today. ASSESSMENT: 1. Acute on chronic congestive heart failure exacerbation from diastolic and systolic dysfunction, EF 40-45 percent from hypertensive heart disease, much improved. 2. Acute fluid overload from incomplete hemodialysis causing acute right-sided pleural effusion, much improved with hemodialysis. 3. Chronic obstructive pulmonary disease. 4. Paroxysmal atrial fibrillation currently in sinus rhythm. 5. End-stage kidney disease on hemodialysis. 6. Hypertensive heart disease. 7. Chronic rheumatoid arthritis. 8. Hyperlipidemia. 9. Anxiety and depression, not otherwise specified. 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 11.Anemia of chronic kidney disease. PLAN: Patient has had 4 consecutive days of dialysis, doing much better. I would like to send the patient to the ECF. This patient feels she needs to stay more. We will increase the bronchodilators. We will get a pulmonary opinion. Other medications and treatment plan to continue. MMODL / IJN: [id number] /
[2018-04-07] MEDS: SERTRALINE 50 MG TAB PO SCH (20:19)
[2018-04-07] MEDS: MELATONIN 5 MG TABLET PO SCH (20:19)
[2018-04-08] MEDS: IPRATROPIUM-ALBUTEROL 3 ML NEB INHALATION SCH ×4 (08:47→21:45)
[2018-04-08] MEDS: SYMBICORT 80-4.5 MCG INHALER INHALATION SCH ×2 (08:47→21:45)
--- NOTE | 2018-04-08 10:06 | PN ---
PROGRESS NOTE Patient is seen for followup for end-stage renal disease. She was admitted with fluid overload. The patient has been dialyzed on a daily basis with UF of about 3 L. She will be dialyzed again today. The patient is scheduled for routine outpatient hemodialysis tomorrow at the [facility]. PHYSICAL EXAMINATION: This morning, patient is comfortable. She is awake. She is not in any acute distress. Blood pressure was 158/74 from last night. Heart rate 76 per minute. She is afebrile. Examination of the heart: S1, S2. Examination of the lungs: Decreased breath sounds at bases. Abdomen is soft, nontender. Examination lower extremities shows no significant edema. LABS: Not available from today. ASSESSMENT: 1. End-stage renal disease, on hemodialysis on a Thursday, Thursday, Thursday schedule as outpatient. 2. Fluid overload with diastolic dysfunction and cardiomyopathy, currently maintained on daily dialysis. 3. Anemia of chronic disease. Maintained on Aranesp. No active bleeding noted. 4. Hypertension, partly volume sensitive. 5. CKD mineral bone disorder. 6. Atrial fibrillation maintained on anticoagulation. Rate is controlled. PLAN: Repeat hemodialysis today with goal UF of about 3 L. Possible discharge today or later on tomorrow. MMODL / IJN: [id number] /
[2018-04-08] MEDS: AMIODARONE 100 MG TAB PO SCH (11:37)
[2018-04-08] MEDS: SPIRONOLACTONE 25 MG TAB PO SCH (11:37)
[2018-04-08] MEDS: ALLOPURINOL 100 MG TAB PO SCH (11:37)
[2018-04-08] MEDS: APIXABAN 2.5 MG TABLET PO SCH ×2 (11:37→21:14)
[2018-04-08] MEDS: hydrALAZINE HCL 25 MG TAB PO SCH ×3 (11:37→21:14)
[2018-04-08] MEDS: amLODIPine 10 MG TAB PO SCH (11:37)
[2018-04-08] MEDS: METOPROLOL TARTRATE 50 MG TAB PO SCH ×2 (11:38→21:14)
--- NOTE | 2018-04-08 11:44 | P.CNPUL ---
History of Present Illness Consult date: 04/08/18 Requesting physician: Steve Hudson Reason for consult: dyspnea, abnormal CXR/CT (Pulmonary vascular congestion) Chief complaint: Shortness of breath, weakness History of present illness: This is a very pleasant 72-year-old female patient who follows with Dr. Desai as her primary care physician. She is currently residing in an extended care facility in [place]. She has a history of chronic diastolic congestive heart failure, atrial fibrillation anticoagulated with Eliquis, pseudotumor the right lung, hypertension, rheumatoid arthritis, osteoarthritis, previous CVA/TIA or chest has a history of COPD with FEV1 value of 42% of predicted and follows in our office for the same. She is maintained on Breo and DuoNeb's. She does have end stage renal disease secondary to nephrosclerosis and has been initiated on hemodialysis via right chest permacath. She is on a Thursday schedule. She has been compliant. She presented here back on 04/03/2018 with complaints of increasing shortness of breath which she felt was secondary to her drinking increased amounts of fluids the day before. White count 15.3. Hemoglobin 7.9. Creatinine 3.17. ProBNP 41,600. Her chest x-ray did show evidence of fluid volume overload. She has since received extra hemodialysis and fluid removal. She is seen today in consultation on the regular medical floor. She is awake and alert in no acute distress. She is just completing another round of hemodialysis. She states her breathing is much improved. She is maintaining good O2 saturations in the upper 90s on 2 L/ m per nasal cannula. She's been afebrile. Hemodynamically stable. She has been on her COPD medications including DuoNeb inhalations and Symbicort. No pulmonary complaints today. Review of Systems 14 point review of system was conducted. All negative other than as mentioned in the HPI. Past Medical History Past Medical History: Atrial Fibrillation, Asthma, Heart Failure, CVA/TIA, Hypertension, Osteoarthritis (OA), Pneumonia Additional Past Medical History / Comment(s): CVA 2005 recent ARF had dialysis cath inserted 02-02-18 gets dialysis Thu-Thu-Thu. History of Any Multi-Drug Resistant Organisms: None Reported Past Surgical History: Tonsillectomy Additional Past Surgical History / Comment(s): ORIF rt ankle-[address], IUD removal, lumbar steroid injections, dental implants, cardioversion, dialysis cath. Past Anesthesia/Blood Transfusion Reactions: No Reported Reaction Additional Past Anesthesia/Blood Transfusion Reaction / Comment(s): Past blood transfusions - no reaction Past Psychological History: No Psychological Hx Reported Smoking Status: Never smoker Past Alcohol Use History: None Reported Additional Past Alcohol Use History / Comment(s): Patient smoked one and half packs of cigarettes per day started in 1973 and quit 2007. Patient used to drink heavily-none now Past Drug Use History: None Reported - Past Family History Mother Additional Family Medical History / Comment(s): Mother in her 80s from abdominal aortic aneurysm. Father Family Medical History: Myocardial Infarction ([place]) Additional Family Medical History / Comment(s): Father at age 52 from acute [place]. Medications and Allergies Home Medications Medication Instructions Recorded Confirmed Type Sertraline HCl [Zoloft] 50 mg PO HS 04/30/17 04/04/18 History amLODIPine [Norvasc] 10 mg PO DAILY tab 07/16/17 04/04/18 Rx Allopurinol [Zyloprim] 100 mg PO DAILY 09/09/17 04/04/18 History Amiodarone [Cordarone] 100 mg PO DAILY tab 02/06/18 04/04/18 Rx Apixaban [Eliquis] 2.5 mg PO BID #60 tablet 02/06/18 04/04/18 Rx Metoprolol Tartrate [Lopressor] 50 mg PO BID #60 tab 02/06/18 04/04/18 Rx hydrALAZINE HCL [Apresoline] 75 mg PO TID tab 03/04/18 04/04/18 Rx Ipratropium-Albuterol Nebulize 3 ml INHALATION RT-TID 03/14/18 04/04/18 History [Duoneb 0.5 mg-3 mg/3 ml Soln] Acetaminophen Tab [Tylenol Tab] 650 mg PO Q4H PRN 04/04/18 04/04/18 History Fluticasone/Vilanterol [Breo 1 puff INHALATION RT-DAILY 04/04/18 04/04/18 History Ellipta 100-25 Mcg Inhaler] Furosemide [Lasix] 20 mg PO BID@1000,1600 04/04/18 04/04/18 History Melatonin 10 mg PO HS 04/04/18 04/04/18 History Spironolactone [Aldactone] 25 mg PO DAILY 04/04/18 04/04/18 History Allergies Allergy/AdvReac Type Severity Reaction Status Date / Time No Known Allergies Allergy Verified 04/04/18 08:55 Physical Exam Vitals: Vital Signs Temp Pulse Pulse Resp BP Pulse Ox 04/08/18 09:04 76 04/08/18 08:47 76 04/07/18 21:45 97.0 F L 61 16 158/74 97 04/07/18 20:00 97.5 F L 63 18 170/76 97 04/07/18 16:00 60 18 04/07/18 15:00 98.1 F 66 18 141/52 97 04/07/18 13:51 80 04/07/18 13:40 76 04/07/18 12:00 97.9 F 60 18 144/70 96 Intake and Output 04/07/18 04/08/18 04/08/18 22:59 06:59 14:59 Intake Total 240 Output Total 300 175 Balance -60 -175 Intake: Oral 240 Output: Urine 300 175 Other: Voiding Method Indwelling Catheter GENERAL EXAM: Alert, active, comfortable in no apparent distress. HEAD: Normocephalic. EYES: Normal reaction of pupils, equal size. NOSE: Clear with pink turbinates. THROAT: No erythema or exudates. NECK: No masses, no JVD. CHEST: Right chest permacath in place. No chest wall deformity. LUNGS: Equal air entry with faint crackles in the posterior bases. CVS: S1 and S2 normal with no audible murmur, regular rhythm. ABDOMEN: No hepatosplenomegaly, normal bowel sounds, no guarding or rigidity. SPINE: No scoliosis or deformity SKIN: No rashes CENTRAL NERVOUS SYSTEM: No focal deficits, tone is normal in all 4 extremities. EXTREMITIES: There is no peripheral edema. No clubbing, no cyanosis. Peripheral pulses are intact. Results - Laboratory Findings CBC and BMP: 04/05/18 07:59 04/05/18 07:59 PT/INR, D-dimer PT 9.9 sec (9.0-12.0) 04/04/18 00:01 INR 1.0 (<1.2) 04/04/18 00:01 Abnormal lab findings: Abnormal Labs 04/04/18 04/04/18 04/04/18 00:01 00:01 00:01 WBC 15.3 H RBC 2.49 L Hgb 7.9 L Hct 25.4 L MCV 102.2 H MCHC 30.9 L RDW 17.2 H Neutrophils # 14.7 H Lymphocytes # 0.2 L Sodium 134 L BUN 27 H Creatinine 3.17 H Glucose 161 H Iron TIBC Iron Saturation Ferritin Total Creatine Kinase <20 L Total Protein 5.6 L Albumin 3.0 L 04/04/18 04/05/18 04/05/18 00:01 07:59 07:59 WBC RBC 2.77 L Hgb 8.8 L Hct 28.8 L MCV 104.1 H MCHC 30.7 L RDW 17.3 H Neutrophils # 9.3 H Lymphocytes # 0.4 L Sodium BUN 25 H Creatinine 2.74 H Glucose 118 H Iron 17 L TIBC 183 L Iron Saturation 9.29 L Ferritin 539.2 H Total Creatine Kinase Total Protein Albumin - Diagnostic Findings Chest x-ray: image reviewed Assessment and Plan Assessment: Impression: #1 Acute on chronic hypoxic respiratory failure secondary to an acute exacerbation of diastolic congestive heart failure. #2 End-stage renal disease secondary to nephrosclerosis currently receiving hemodialysis. #3 History of pseudotumor in the right lung. #4 Hypertension. #5 Rheumatoid arthritis. #6 Previous CVA/TIA. #7 Paroxysmal atrial fibrillation, previous cardioversion, anticoagulated with Eliquis. #8 Chronic obstructive pulmonary disease with FEV1 value 42% of predicted. Maintained on Breo and DuoNeb's in the outpatient setting. #9 Hyperlipidemia. #10 Chronic anemia. Plan: The patient was seen and evaluated by Dr. Talbot. She is back to her baseline as far as her pulmonary status is concerned and could be discharged home once cleared medically and per nephrology. She'll follow-up in our office in 1-2 weeks' time. She is to call sooner with any recurrence of symptoms or other questions or concerns. I, the cosigning physician, performed a history & physical examination of the patient. Lungs sounds with faint crackles in the posterior bases. Maintaining good O2 saturations in the 90s on 2 L/m per nasal cannula. I discussed the assessment and plan of care with my nurse practitioner, Shakila Munson. I attest to the above note as dictated by her. Time with Patient: Greater than 30
[2018-04-08 13:07] LABS: Calcium 8.8 mg/dL (8.4-10.2); Potassium 3.3 mmol/L (3.5-5.1)
[2018-04-08] MEDS: FUROSEMIDE 80 MG TAB PO SCH ×2 (14:58→21:16)
--- NOTE | 2018-04-08 16:01 | P.PN ---
Subjective on-call hospitalist covering for Dr. Hudson over the weekend and holidays this is a pleasant 72 years old female with past medical history of atrial fibrillation, asthma, heart failure, hypertension, CVA,hyperlipidemia. found to have acute on chronic respiratory failure secondary to acute on chronic diastolic CHF. Patient also end-stage renal disease on hemodialysis. Today patient feels better. she still limited dyspneic. However there is no chest pain or abdominal pain. No nausea vomiting or dyspnea. She still have Castillo catheter.Vitas looks stable. Sodium 135 and potassium 3.3 Objective - Vital Signs Vital signs: Vital Signs Temp 98.0 F 04/08/18 08:50 Pulse 80 04/08/18 12:05 Resp 16 04/08/18 08:50 BP 175/84 04/08/18 08:50 Pulse Ox 96 04/08/18 08:50 Intake & Output 04/07/18 04/08/18 04/08/18 18:59 06:59 18:59 Intake Total 480 Output Total 475 Balance 480 -475 Intake: Oral 480 Output: Urine 475 Other: Voiding Method Indwelling Catheter Indwelling Catheter Indwelling Catheter - Exam GENERAL: The patient is alert and oriented x3, not in any acute distress. Well developed, well nourished. HEENT: Pupils are round and equally reacting to light. EOMI. No scleral icterus. No conjunctival pallor. Normocephalic, atraumatic. No pharyngeal erythema. No thyromegaly. CARDIOVASCULAR: S1 and S2 present. No murmurs, rubs, or gallops. PULMONARY: Chest is clear to auscultation, no crackles. bilateral scattered wheezing-- ABDOMEN: Soft, nontender, nondistended, normoactive bowel sounds. No palpable organomegaly. MUSCULOSKELETAL: No joint swelling or deformity. EXTREMITIES: No cyanosis, clubbing, or pedal edema. NEUROLOGICAL: Gross neurological examination did not reveal any focal deficits. SKIN: No rashes. - Labs CBC & Chem 7: 04/05/18 07:59 04/08/18 12:18 Labs: Abnormal Lab Results - Last 24 Hours (Table) 04/08/18 Range/Units 12:18 Sodium 135 L (137-145) mmol/L Potassium 3.3 L (3.5-5.1) mmol/L Creatinine 1.43 H (0.52-1.04) mg/dL Assessment and Plan Assessment: acute hypoxic respiratory failure Acute on chronic diastolic CHF Atrial fibrillation on Eliquis, heart rate is controlled end-stage renal disease on hemodialysis Hyperlipidemia Plan: this is a pleasant 72 years old female who presents because of acute CHF with acute respiratory failure. She's been following up by pulmonary and nephrology team. continue with Lasix.Continue with dialysis.Labs and medication were reviewed.. Continue same treatment. Continue with symptomatic treatment. Resume home medication. Monitor lytes and vitals. DVT and GI prophylaxis. Further recommendations of the clinical course of the patient DVT prophylaxis: Eliquis Prognosis is guarded
[2018-04-08] MEDS: MELATONIN 5 MG TABLET PO SCH (21:14)
[2018-04-08] MEDS: SERTRALINE 50 MG TAB PO SCH (21:14)
[2018-04-08] MEDS ORDERED: Potassium Replacement Protocol 1 EACH MISC MISCELLANE PRN (21:49)
[2018-04-08] MEDS: POTASSIUM CHLORIDE ER 20 MEQ TAB.ER PO SCH ×2 (22:48→22:50)
[2018-04-09 08:36] LABS: Potassium 4.1 mmol/L (3.5-5.1)
[2018-04-09] MEDS: SYMBICORT 80-4.5 MCG INHALER INHALATION SCH ×2 (09:22→20:15)
[2018-04-09] MEDS: IPRATROPIUM-ALBUTEROL 3 ML NEB INHALATION SCH ×4 (09:22→20:15)
[2018-04-09 10:18] VITALS: BMI 20.3
[2018-04-09] MEDS: hydrALAZINE HCL 25 MG TAB PO SCH ×3 (10:57→22:13)
[2018-04-09] MEDS: amLODIPine 10 MG TAB PO SCH (10:57)
[2018-04-09] MEDS: FUROSEMIDE 80 MG TAB PO SCH ×2 (10:57→18:52)
[2018-04-09] MEDS: ALLOPURINOL 100 MG TAB PO SCH (10:57)
[2018-04-09] MEDS: METOPROLOL TARTRATE 50 MG TAB PO SCH ×2 (10:57→20:35)
[2018-04-09] MEDS: APIXABAN 2.5 MG TABLET PO SCH ×2 (10:57→20:35)
[2018-04-09] MEDS: SPIRONOLACTONE 25 MG TAB PO SCH (10:57)
[2018-04-09] MEDS: AMIODARONE 100 MG TAB PO SCH (10:58)
[2018-04-09 12:18] VITALS: RESP 16
--- NOTE | 2018-04-09 14:25 | P.PN ---
Subjective Progress Note Date: 04/09/18 Principal diagnosis: Dyspnea, pulmonary vessel congestion, fluid overload This is a very pleasant 72-year-old female patient who follows with Dr. Desai as her primary care physician. She is currently residing in an extended care facility in [place]. She has a history of chronic diastolic congestive heart failure, atrial fibrillation anticoagulated with Eliquis, pseudotumor the right lung, hypertension, rheumatoid arthritis, osteoarthritis, previous CVA/TIA or chest has a history of COPD with FEV1 value of 42% of predicted and follows in our office for the same. She is maintained on Breo and DuoNeb's. She does have end stage renal disease secondary to nephrosclerosis and has been initiated on hemodialysis via right chest permacath. She is on a Thursday schedule. She has been compliant. She presented here back on 04/03/2018 with complaints of increasing shortness of breath which she felt was secondary to her drinking increased amounts of fluids the day before. White count 15.3. Hemoglobin 7.9. Creatinine 3.17. ProBNP 41,600. Her chest x-ray did show evidence of fluid volume overload. She has since received extra hemodialysis and fluid removal. She is seen today in consultation on the regular medical floor. She is awake and alert in no acute distress. She is just completing another round of hemodialysis. She states her breathing is much improved. She is maintaining good O2 saturations in the upper 90s on 2 L/ m per nasal cannula. She's been afebrile. Hemodynamically stable. She has been on her COPD medications including DuoNeb inhalations and Symbicort. No pulmonary complaints today. On 04/09/2018 patient seen in follow-up on medical surgical floor. She is awake and alert, denies any distress, currently on room air, with axis 92%, she is afebrile, hemodynamically stable, today she had her hemodialysis treatment and 3 L of fluid was removed, patient is scheduled for another hemodialysis treatment today, clinically she stable, no shortness of breath or chest pain. He has been cleared from us for discharge back to the rehab facility in [place] after hemodialysis treatment today or possibly in the morning. Objective - Vital Signs Vital signs: Vital Signs Temp 97.9 F 04/09/18 07:00 Pulse 71 04/09/18 12:25 Resp 16 04/09/18 12:25 BP 166/75 04/09/18 07:00 Pulse Ox 92 L 04/09/18 07:00 Intake & Output 04/08/18 04/09/18 04/09/18 18:59 06:59 18:59 Intake Total 550 300 Output Total 200 Balance 350 300 Weight 55.5 kg Intake: Oral 550 300 Output: Urine 200 Uretheral (Castillo) 200 Other: Voiding Method Indwelling Catheter Toilet # Voids 1 # Bowel Movements 1 - Exam GENERAL EXAM: Alert, active, comfortable in no apparent distress. HEAD: Normocephalic. EYES: Normal reaction of pupils, equal size. NOSE: Clear with pink turbinates. THROAT: No erythema or exudates. NECK: No masses, no JVD. CHEST: Right chest permacath in place. No chest wall deformity. LUNGS: Equal air entry with faint crackles in the posterior bases. CVS: S1 and S2 normal with no audible murmur, regular rhythm. ABDOMEN: No hepatosplenomegaly, normal bowel sounds, no guarding or rigidity. SPINE: No scoliosis or deformity SKIN: No rashes CENTRAL NERVOUS SYSTEM: No focal deficits, tone is normal in all 4 extremities. EXTREMITIES: There is no peripheral edema. No clubbing, no cyanosis. Peripheral pulses are intact. - Labs CBC & Chem 7: 04/05/18 07:59 04/09/18 07:28 Labs: Abnormal Lab Results - Last 24 Hours (Table) 04/09/18 Range/Units 07:28 Sodium 134 L (137-145) mmol/L BUN 21 H (7-17) mg/dL Creatinine 2.92 H (0.52-1.04) mg/dL Assessment and Plan Plan: #1 Acute on chronic hypoxic respiratory failure secondary to an acute exacerbation of diastolic congestive heart failure. #2 End-stage renal disease secondary to nephrosclerosis currently receiving hemodialysis. #3 History of pseudotumor in the right lung. #4 Hypertension. #5 Rheumatoid arthritis. #6 Previous CVA/TIA. #7 Paroxysmal atrial fibrillation, previous cardioversion, anticoagulated with Eliquis. #8 Chronic obstructive pulmonary disease with FEV1 value 42% of predicted. Maintained on Breo and DuoNeb's in the outpatient setting. #9 Hyperlipidemia. #10 Chronic anemia. Plan: Patient is awaiting to have her hemodialysis treatment this afternoon, and stable from pulmonary perspective, no dyspnea, no chest pain, she is on room air. Vital signs have remained stable, no acute issues overnight, patient is eager to return to the rehab in [place] today, and she is hoping that the discharge after the hemodialysis treatments will be at a reasonable time. Stable for discharge from pulmonary perspective. I performed a history & physical examination of the patient and discussed their management with my nurse practitioner, Sasha Knutson. I reviewed the nurse practitioner's note and agree with the documented findings and plan of care. Lung sounds are positive for diminished breath sounds, with some limited crackles at the left base. The findings and the impression was discussed with the patient. I attest to the documentation by the nurse practitioner. Time with Patient: Less than 30
[2018-04-09] MEDS: SERTRALINE 50 MG TAB PO SCH (20:35)
--- NOTE | 2018-04-09 21:59 | P.PN ---
Subjective on-call hospitalist covering for Dr. Hudson over the weekend and holidays this is a pleasant 72 years old female with past medical history of atrial fibrillation, asthma, heart failure, hypertension, CVA,hyperlipidemia. found to have acute on chronic respiratory failure secondary to acute on chronic diastolic CHF. Patient also end-stage renal disease on hemodialysis. Today patient feels better. she still limited dyspneic. However there is no chest pain or abdominal pain. No nausea vomiting or dyspnea. She still have Castillo catheter.Vitas looks stable. Sodium 135 and potassium 3.3 04/09/2018 pt is doing better , pt with no chest pain , no dyspnea no abd pain ,no n/v, she is getting HD today . pt is cleared medically for discharged today but because it is holiday pt could not be transferred to her rahab today / Objective - Vital Signs Vital signs: Vital Signs Temp 98.3 F 04/09/18 19:30 Pulse 68 04/09/18 20:31 Resp 16 04/09/18 20:31 BP 150/73 04/09/18 19:30 Pulse Ox 96 04/09/18 19:30 Intake & Output 04/09/18 04/09/18 04/10/18 06:59 18:59 06:59 Intake Total 300 Balance 300 Weight 55.5 kg Intake: Oral 300 Other: Voiding Method Toilet Toilet # Voids 1 0 # Bowel Movements 1 - Exam GENERAL: The patient is alert and oriented x3, not in any acute distress. Well developed, well nourished. HEENT: Pupils are round and equally reacting to light. EOMI. No scleral icterus. No conjunctival pallor. Normocephalic, atraumatic. No pharyngeal erythema. No thyromegaly. CARDIOVASCULAR: S1 and S2 present. No murmurs, rubs, or gallops. PULMONARY: Chest is clear to auscultation, no crackles. bilateral scattered wheezing-- ABDOMEN: Soft, nontender, nondistended, normoactive bowel sounds. No palpable organomegaly. MUSCULOSKELETAL: No joint swelling or deformity. EXTREMITIES: No cyanosis, clubbing, or pedal edema. NEUROLOGICAL: Gross neurological examination did not reveal any focal deficits. SKIN: No rashes. - Labs CBC & Chem 7: 04/05/18 07:59 04/09/18 07:28 Labs: Abnormal Lab Results - Last 24 Hours (Table) 04/09/18 Range/Units 07:28 Sodium 134 L (137-145) mmol/L BUN 21 H (7-17) mg/dL Creatinine 2.92 H (0.52-1.04) mg/dL Assessment and Plan Assessment: acute hypoxic respiratory failure Acute on chronic diastolic CHF Atrial fibrillation on Eliquis, heart rate is controlled end-stage renal disease on hemodialysis Hyperlipidemia Plan: this is a pleasant 72 years old female who presents because of acute CHF with acute respiratory failure. She's been following up by pulmonary and nephrology team. continue with Lasix.Continue with dialysis.Labs and medication were reviewed.. Continue same treatment. Continue with symptomatic treatment. Resume home medication. Monitor lytes and vitals. DVT and GI prophylaxis. Further recommendations of the clinical course of the patient DVT prophylaxis: Eliquis Prognosis is guarded
--- NOTE | 2018-04-09 22:25 | PN ---
PROGRESS NOTE Patient was seen this morning. She has been dialyzed daily for the last 5 to 6 days with UF of 3 L with every treatment. Plan is for hemodialysis today, following which patient will be discharged home. On examination this morning, blood pressure was 166/75, heart rate about 80 per minute. Patient is afebrile. EXAMINATION OF THE HEART: S1, S2. EXAMINATION OF LUNGS: Bilateral breath sounds are heard. ABDOMEN: Soft, non-tender. Examination of lower extremities shows no evidence of edema. TESTER WAFER SUBSTRATE exam is grossly intact. Labs show sodium 134, potassium 4.1, hemoglobin of 8.8 g/dL. ASSESSMENT: 1. End-stage renal disease, on hemodialysis on a Thursday, Thursday, Thursday schedule as outpatient. 2. Severe fluid overload. Patient has been dialyzed on a daily basis with UF of about 3 L for the past 6 days. 3. Diastolic heart failure. 4. Chronic kidney disease mineral bone disorder. 5. Anemia, maintained on Aranesp. 6. Atrial fibrillation, currently with controlled ventricular response, maintained on Eliquis and amiodarone. PLAN: Hemodialysis today, following which patient can be discharged home. If she does not go tonight, I will give her a dose of IV iron tomorrow. MMODL / IJN: [id number] /
[2018-04-09] MEDS: MELATONIN 5 MG TABLET PO SCH (23:30)
[2018-04-10] VITALS: TEMP 98.4
[2018-04-10] MEDS: IPRATROPIUM-ALBUTEROL 3 ML NEB INHALATION SCH ×2 (09:00→12:23)
[2018-04-10] MEDS ORDERED: SODIUM FERRIC GLUCONAT-SUCROSE 125 MG in SODIUM CHLORIDE 0.9% 100 ML IVPB ONE (09:00)
[2018-04-10] MEDS: SYMBICORT 80-4.5 MCG INHALER INHALATION SCH (09:00)
[2018-04-10 13:53] VITALS: BP 151/75; PULSE 79
[2018-04-10] MEDS: SPIRONOLACTONE 25 MG TAB PO SCH (13:59)
[2018-04-10] MEDS: amLODIPine 10 MG TAB PO SCH (13:59)
[2018-04-10] MEDS: ALLOPURINOL 100 MG TAB PO SCH (13:59)
[2018-04-10] MEDS: METOPROLOL TARTRATE 50 MG TAB PO SCH (14:03)
[2018-04-10] MEDS: APIXABAN 2.5 MG TABLET PO SCH (14:03)
[2018-04-10] MEDS: hydrALAZINE HCL 25 MG TAB PO SCH (14:03)
[2018-04-10] MEDS: FUROSEMIDE 80 MG TAB PO SCH (14:03)
[2018-04-10] MEDS: AMIODARONE 100 MG TAB PO SCH (14:04)
== END 2018-04-10 15:50 | DRG 291 ==
LOC: EC 23:20 → 3SCARD 04-04 01:29 → 4SSUR 04-07 21:15
PROVIDERS: ADMIT Hospitalist; ATTEND Hospitalist
PROC: 5A1D70Z Performance of Urinary Filtration, Intermittent, Less than 6 Hours Per Day (ICD-10-PCS; principal; 2018-04-04)
DX: I13.2 Hypertensive heart and chronic kidney disease with heart failure and with stage 5 chronic kidney disease, or end stage renal disease (principal); I50.43 Acute on chronic combined systolic (congestive) and diastolic (congestive) heart failure; J96.21 Acute and chronic respiratory failure with hypoxia; N18.6 End stage renal disease; E87.1 Hypo-osmolality and hyponatremia; J44.9 Chronic obstructive pulmonary disease, unspecified; D63.1 Anemia in chronic kidney disease; I42.9 Cardiomyopathy, unspecified; I48.0 Paroxysmal atrial fibrillation; E78.5 Hyperlipidemia, unspecified; F32.9 Major depressive disorder, single episode, unspecified; F41.9 Anxiety disorder, unspecified; M06.9 Rheumatoid arthritis, unspecified; E83.89 Other disorders of mineral metabolism; M19.90 Unspecified osteoarthritis, unspecified site; Z79.01 Long term (current) use of anticoagulants; Z79.51 Long term (current) use of inhaled steroids; Z79.899 Other long term (current) drug therapy; Z99.2 Dependence on renal dialysis; Z87.891 Personal history of nicotine dependence; Z86.73 Personal history of transient ischemic attack (TIA), and cerebral infarction without residual deficits; Z87.01 Personal history of pneumonia (recurrent); Z82.49 Family history of ischemic heart disease and other diseases of the circulatory system
CPT/HCPCS: 36415; 71046; 80048; 80053; 82550; 82553; 82728; 83540; 83550; 83880; 84100; 84484; 85025; 85610; 85730; 86706; 87340; 90935; 93005; 94640; 94664; 94760; 96374; 99285

== ENCOUNTER 2018-05-31 13:28 | Inpatient (IN) | payer MEDICARE, BC ==
[2018-05-31] MEDS ORDERED: NALOXONE 0.4 MG/ML 1 ML VIAL IV PRN (14:31)
--- NOTE | 2018-05-31 14:31 | ED ---
General Adult HPI - General Chief complaint: Syncope Stated complaint: syncope Time Seen by Provider: 05/31/18 13:31 Source: patient, RN notes reviewed, old records reviewed (Chart review from [facility]) Mode of arrival: ambulatory Limitations: no limitations - History of Present Illness Initial comments: Patient is a pleasant 72-year-old female presenting to the emergency Department as a transfer from [facility]. Patient was at dialysis today when she had a syncopal episode. Patient states she felt fine during dialysis. Patient states she felt fine there and still does at this point. Patient denies ever having any chest discomfort or dyspnea. No history of previous syncope. Physician at [facility] was concern for mild EKG changes and mild elevation of troponin. Patient states her dialysis was completed. Patient also states she has a small fracture in her left wrist from a fall 1 week ago. Patient is on Eliquis. Computed tomography scan of the head shows no acute intercranial hemorrhage. Chest x-ray reported as no acute abnormality. EKG was reviewed that does show some inferior and lateral ST depression - Related Data Home Medications Medication Instructions Recorded Confirmed Sertraline HCl [Zoloft] 50 mg PO HS 04/30/17 04/04/18 Allopurinol [Zyloprim] 100 mg PO DAILY 09/09/17 04/04/18 Ipratropium-Albuterol Nebulize 3 ml INHALATION RT-TID 03/14/18 04/04/18 [Duoneb 0.5 mg-3 mg/3 ml Soln] Acetaminophen Tab [Tylenol] 650 mg PO Q4H PRN 04/04/18 04/04/18 Fluticasone/Vilanterol [Breo 1 puff INHALATION RT-DAILY 04/04/18 04/04/18 Ellipta 100-25 Mcg Inhaler] Melatonin 10 mg PO HS 04/04/18 04/04/18 Spironolactone [Aldactone] 25 mg PO DAILY 04/04/18 04/04/18 Previous Rx's Medication Instructions Recorded amLODIPine [Norvasc] 10 mg PO DAILY tab 07/16/17 Amiodarone [Cordarone] 100 mg PO DAILY tab 02/06/18 Apixaban [Eliquis] 2.5 mg PO BID #60 tablet 02/06/18 Metoprolol Tartrate [Lopressor] 50 mg PO BID #60 tab 02/06/18 hydrALAZINE HCL [Apresoline] 75 mg PO TID tab 03/04/18 Darbepoetin Zhou [Aranesp] 40 mcg SQ Q7D syringe 04/10/18 Furosemide [Lasix] 80 mg PO BID@0900,1600 tab 04/10/18 Allergies Allergy/AdvReac Type Severity Reaction Status Date / Time No Known Allergies Allergy Verified 04/04/18 08:55 Review of Systems ROS Statement: Those systems with pertinent positive or pertinent negative responses have been documented in the HPI. ROS Other: All systems not noted in ROS Statement are negative. Constitutional: Denies: fever Eyes: Denies: eye pain ENT: Denies: ear pain Respiratory: Denies: cough, dyspnea Cardiovascular: Denies: chest pain Endocrine: Denies: fatigue Gastrointestinal: Denies: abdominal pain Genitourinary: Denies: dysuria Musculoskeletal: Denies: back pain Skin: Denies: rash Neurological: Denies: weakness Past Medical History Past Medical History: Atrial Fibrillation, Asthma, Heart Failure, CVA/TIA, Hypertension, Osteoarthritis (OA), Pneumonia, Renal Disease Additional Past Medical History / Comment(s): CVA 2006 recent ARF had dialysis cath inserted 02-02-18 gets dialysis Thu-Thu-Thu. History of Any Multi-Drug Resistant Organisms: None Reported Past Surgical History: Tonsillectomy Additional Past Surgical History / Comment(s): ORIF rt ankle-[address], IUD removal, lumbar steroid injections, dental implants, cardioversion, dialysis cath. has ocl on l wrist, states fell 1 month ago and has a hairline fracture of wrist Past Anesthesia/Blood Transfusion Reactions: No Reported Reaction Additional Past Anesthesia/Blood Transfusion Reaction / Comment(s): Past blood transfusions - no reaction Past Psychological History: No Psychological Hx Reported Smoking Status: Never smoker Past Alcohol Use History: None Reported Past Drug Use History: None Reported - Past Family History Mother Additional Family Medical History / Comment(s): Mother in her 80s from abdominal aortic aneurysm. Father Family Medical History: Myocardial Infarction (RI) Additional Family Medical History / Comment(s): Father at age 52 from acute RI. General Exam Limitations: no limitations General appearance: alert, in no apparent distress Head exam: Present: atraumatic Eye exam: Present: normal appearance, PERRL, EOMI. Absent: nystagmus ENT exam: Present: normal oropharynx Neck exam: Present: normal inspection Respiratory exam: Present: normal lung sounds bilaterally Cardiovascular Exam: Present: regular rate, normal rhythm GI/Abdominal exam: Present: soft. Absent: tenderness Extremities exam: Present: normal inspection, other (Splint is present on left) Neurological exam: Present: alert, oriented X3, CN II-XII intact. Absent: motor sensory deficit Expanded Motor strength exam: RUE: 5, LUE: 5, RLE: 5, LLE: 5 Eye Response: (4) open spontaneously Motor Response: (6) obeys commands Verbal Response: (5) oriented Psychiatric exam: Present: normal affect, normal mood Skin exam: Present: normal color Course Vital Signs 05/31/18 13:40 Temperature 98.2 F Pulse Rate 58 L Respiratory 18 Rate Blood Pressure 162/81 O2 Sat by Pulse 97 Oximetry Medical Decision Making - Medical Decision Making Patient was updated on plan. Case was discussed in detail with Dr. Hudson, who will admit covering for Dr. Desai. Cardiology will be placed on consult. Disposition Clinical Impression: Syncope Disposition: ADMITTED IP TO THIS HOSP Is patient prescribed a controlled substance at d/c from ED?: No Referrals: Soren Desai MD [Primary Care Provider] - 1-2 days Decision Time: 14:30
[2018-05-31] MEDS ORDERED: amLODIPine 10 MG TAB PO STA (17:09)
--- NOTE | 2018-05-31 17:10 | US ---
EXAMINATION TYPE: US venous doppler duplex LE DATE OF EXAM: 05/31/2018 4:45 PM COMPARISON: NONE CLINICAL HISTORY: eval for thrombus. no pain, no swelling, no h/o dvt SIDE PERFORMED: Bilateral TECHNIQUE: The lower extremity deep venous system is examined utilizing real time linear array sonog norah with graded compression, doppler sonography and color-flow sonography. VESSELS IMAGED: External Iliac Vein (EIV) Common Femoral Vein Deep Femoral Vein Greater Saphenous Vein * Femoral Vein Popliteal Vein Small Saphenous Vein * Proximal Calf Veins (* superficial vessels) Right Leg: Appears negative for DVT Left Leg: Appears negative for DVT IMPRESSION: Normal exam. No evidence of deep venous thrombosis in both legs.
--- NOTE | 2018-05-31 18:29 | CONS ---
CONSULTATION CHIEF COMPLAINT: Syncope. HISTORY OF PRESENT ILLNESS: Brittany is a 72-year-old lady with history of hypertension, dyslipidemia, atrial fibrillation, end-stage renal disease on hemodialysis, who presented to the hospital having had an episode of syncope just after the dialysis. At the time of my evaluation in the emergency room, she appears comfortable at rest, free of symptoms. Did not have any further syncopal events. She denies leg edema and difficulty in breathing. The chest pain. The patient states that she was on a telemetry at the time of this event and did not have any tachy or bradyarrhythmias. There is no history of seizure disorder. The exact etiology for syncope is not clear. I will obtain a 2D echo, carotid duplex study, troponins and watch her on telemetry for tachy or bradyarrhythmia. PAST MEDICAL HISTORY: Significant for paroxysmal atrial fibrillation, diastolic heart failure, hypertension, CVA. MEDICATIONS: At home include Ambien, Zoloft, Lopressor, K-Deedee con, HydroDIURIL, Apresoline, Lasix, Eliquis, Norvasc, PhosLo, Lipitor, Pacerone, and Zyloprim. ALLERGIES: No known drug allergies. FAMILY HISTORY: Negative for premature coronary artery disease. SOCIAL HISTORY: Negative for current smoking, EtOH abuse, or drug abuse. REVIEW OF SYSTEMS: HEENT is unremarkable. CARDIAC as described above. RESPIRATORY negative. GI negative. GENITOURINARY significant for end stage renal disease on hemodialysis. PSYCHOSOCIAL: Negative. ENDOCRINE: Negative. HEMATOLOGICAL: Negative. DERM: Negative. CONSTITUTIONAL: Negative. ONCOLOGICAL negative. EXAM: Patient appears comfortable at rest. Blood pressure is elevated at 193/91, respiratory rate is 18. Chest exam reveals good air entry bilaterally. Heart exam reveals first and second heart sounds. No gallop. An S4 is heard. Abdomen is soft. Exam of extremities did not reveal any edema. Peripheral pulses are felt. EKG shows sinus bradycardia, left ventricular hypertrophy with ST-T wave changes. The ST-T wave changes are more pronounced now than they were before. The patient had a venous duplex study on this admission that is negative for DVT. She had a CT brain in [place] that did not reveal any intracranial bleed. Monitor so far shows sinus rhythm. ASSESSMENT: 1. Syncope, rule out cardiac causes. 2. Paroxysmal atrial fibrillation. 3. End-stage renal disease on hemodialysis. 4. Chronic diastolic heart failure. 5. History of chronic diastolic heart failure. PLAN: I will watch her on telemetry. Obtain an echocardiogram. Check carotid duplex study and decide on further course of action. YRN / IJN: [id number] /
[2018-05-31 18:41] LABS: Creatine Kinase MB 0.6 ng/mL (0.0-2.4)
[2018-05-31 19:22] LABS: Troponin I 0.091 ng/mL (0.000-0.034)
--- NOTE | 2018-05-31 19:58 | ECHOF ---
Referral Reason:syncope MEASUREMENTS -------- HEIGHT: 165.1 cm WEIGHT: 53.1 kg BP: 162/81 RVIDd: 2.9 cm (< 3.3) IVSd: 1.6 cm (0.6 - 1.1) LVIDd: 3.6 cm (3.9 - 5.3) LVPWd: 1.6 cm (0.6 - 1.1) IVSs: 1.9 cm LVIDs: 2.6 cm LVPWs: 2.0 cm LAESV Index (A-L): 26.32 ml/m Ao Diam: 2.7 cm (2.0 - 3.7) AV Cusp: 1.1 cm (1.5 - 2.6) LA Diam: 3.1 cm (2.7 - 3.8) EPSS: 0.7 cm MV E Yaw: 0.85 m/s MV DecT: 247 ms MV A Yaw: 0.87 m/s MV E/A Ratio: 0.97 RAP: 5.00 mmHg RVSP: 8.17 mmHg MV EF SLOPE: 36.79 mm/s (70 - 150) MV EXCURSION: 1.30 cm (> 18.000) FINDINGS -------- Sinus rhythm. This was a technically good study. The left ventricular size is normal. There is moderate concentric left ventricular hypertrophy. O verall left ventricular systolic function is normal with, an EF between 55 - 60 %. The right ventricle is normal in size and function. Normal LA size by volume 22+/-6 ml/m2. The right atrium is normal in size. Aortic valve is trileaflet and is mildly thickened. There is no evidence of aortic regurgitation. There is no evidence of aortic stenosis. The mitral valve leaflets are mildly thickened. Mild mitral annular calcification present. There is trace to mild mitral regurgitation. Trace tricuspid regurgitation present. Right ventricular systolic pressure is normal at < 35 mmHg. There is no evidence of pulmonary hypertension. Trace/mild (physiologic) pulmonic regurgitation. The aortic root size is normal. Normal inferior vena cava with normal inspiratory collapse consistent with estimated right atrial pre ssure of 5 mmHg. There is no pericardial effusion. CONCLUSIONS -------- 1. Sinus rhythm. 2. This was a technically good study. 3. The left ventricular size is normal. 4. There is moderate concentric left ventricular hypertrophy. 5. Overall left ventricular systolic function is normal with, an EF between 55 - 60 %. 6. Normal LA size by volume 22+/-6 ml/m2. 7. The right atrium is normal in size. 8. Aortic valve is trileaflet and is mildly thickened. 9. The mitral valve leaflets are mildly thickened. 10. Mild mitral annular calcification present. 11. There is trace to mild mitral regurgitation. 12. Trace tricuspid regurgitation present. 13. Right ventricular systolic pressure is normal at < 35 mmHg. 14. There is no evidence of pulmonary hypertension. 15. Trace/mild (physiologic) pulmonic regurgitation. 16. The aortic root size is normal. 17. There is no pericardial effusion. SUPERVISORY AIDE: Rick Mendoza RDCS
[2018-05-31] MEDS ORDERED: ALBUTEROL NEBULIZED 2.5 MG/3 ML INHALATION PRN (20:07)
[2018-05-31] MEDS: SODIUM CHLORIDE 0.9% 1,000 ML IV SCH (20:35)
[2018-05-31] MEDS: APIXABAN 2.5 MG TABLET PO SCH (20:37)
[2018-05-31] MEDS: METOPROLOL TARTRATE 50 MG TAB PO SCH (20:37)
[2018-05-31] MEDS ORDERED: ALPRAZolam 0.25 MG TAB PO PRN (21:18)
[2018-05-31] MEDS ORDERED: MAGNESIUM HYDROXIDE 2,400 MG/10 ML CUP PO PRN (21:18)
[2018-05-31] MEDS ORDERED: LACTULOSE 20 GM/30 ML CUP PO PRN (21:18)
[2018-05-31] MEDS ORDERED: CALCIUM CARBONATE 500 MG CHEWABLE PO PRN (21:18)
[2018-05-31] MEDS ORDERED: MELATONIN 3 MG TABLET PO PRN (21:18)
[2018-05-31] MEDS ORDERED: ONDANSETRON 4 MG/2 ML VIAL IVP PRN (21:18)
[2018-05-31] MEDS ORDERED: hydrALAZINE HCL 50 MG TAB PO SCH (22:00)
--- NOTE | 2018-05-31 22:04 | HP ---
HISTORY AND PHYSICAL DATE OF ADMISSION: May 31, 2018. PRESENTING COMPLAINT: Passed out. HISTORY OF PRESENTING COMPLAINT: This is a pleasant 72-year-old patient with extensive medical history. Chronic stable medical conditions include COPD, end-stage kidney disease on hemodialysis, hypertensive heart disease, rheumatoid arthritis, hyperlipidemia, anxiety, depression, chronic anemia. The patient this morning went for a scheduled hemodialysis that normally starts at 6 in the morning and gets done by 10:30. Following that patient was sitting on a chair and then patient passed out, not sure for how long. Denies any dizziness or lightheadedness that she really occasionally gets. No chest pain or palpitation. CT scan of the brain was reported negative and patient was transferred from [place] here. The patient otherwise has been eating well. Feels back to her baseline. There was no chest pain or palpitation. REVIEW OF SYSTEMS: CONSTITUTIONAL: Very tired. HEENT: Decreased hearing. RESPIRATORY: None. CARDIOVASCULAR: None. GASTROINTESTINAL: None. GENITOURINARY: None. MUSCULOSKELETAL: Some pain in the joints. Patient recently had a fracture of the left wrist with a cast in place. DERMATOLOGICAL: None. HEMATOLOGICAL: None. LYMPHATICS: None. PSYCHIATRIC: Anxiety. NEUROLOGICAL: None. 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 PAST SURGICAL HISTORY: Tonsillectomy, ORIF of the right ankle, [address], lumbar steroid injections, dental implants, cardioversion, dialysis catheter. SOCIAL HISTORY: Patient smoked a pack and half cigarettes, stopped 10 years ago. Smoked for about 34 years, was a heavy drinker in the past. . FAMILY HISTORY: Mother had abdominal aortic aneurysm. HOME MEDICATIONS: Include: 1. Incruse Ellipta 1 puff daily. 2. Ambien 5 mg q.h.s. 3. Symbicort 160/4.5, 2 puffs b.i.d. 4. Ventolin HFA 2 puffs q.4 p.r.n. 5. Zoloft 50 mg q.h.s. 6. Klor-Con 20 mEq a day. 7. Lopressor 50 mg b.i.d. 8. DuoNeb q.i.d. 9. Hydralazine 50 mg t.i.d. 10.Hydrochlorothiazide 25 mg a day. 11.Lasix 80 mg b.i.d. 12.Eliquis 2.5 p.o. b.i.d. 13.Norvasc 10 mg a day. 14.PhosLo 1 capsule a.c. t.i.d. 15.Lipitor 20 mg p.o. daily. 16.Amiodarone 1200 mg p.o. daily. 17.Allopurinol 100 mg daily. ALLERGIES: None. PHYSICAL EXAMINATION: VITAL SIGNS ON PRESENTATION: Temperature 98.2, pulse 50, respiratory 18, blood pressure 162/81, pulse ox 97% on room air. GENERAL APPEARANCE: Thin built, BMI 19.5, lying in bed, awake, comfortable. EYES: Pupils equal. Conjunctivae normal. HEENT: External appearance of nose and ears normal. Oral cavity normal. NECK: JVD not raised. Mass not palpable. RESPIRATORY: Effort normal. LUNGS: Decreased breath sounds. CARDIOVASCULAR: Heart sounds irregular. No edema. ABDOMEN: Soft, nontender. Liver and spleen not palpable. LYMPHATICS: No lymph nodes palpable in the neck and axilla. PSYCHIATRIC: Alert and oriented times three. Mood and affect normal. NEUROLOGICAL: Pupils equal. Cranial nerves grossly intact. Power and sensation grossly intact. INVESTIGATIONS: Troponin 0.091. EKG tracing personally reviewed by me shows flipped T-waves in V2 to V6 and 1 in aVL. 2D echocardiogram shows EF of 55-60 percent and concentric LVH. ASSESSMENT: 1. Acute episode of syncope could be vasovagal, just post hemodialysis, patient had not had her breakfast. Also given that the patient had a history of atrial fibrillation, patient could have had a short lived arrhythmia. 2. Positive troponin in setting of renal failure is questionable, especially the fact the patient had no chest pain, though patient does have EKG changes. 3. Hypertensive heart disease. 4. Chronic obstructive pulmonary disease. 5. Paroxysmal atrial fibrillation currently in sinus rhythm. 6. End-stage kidney disease on hemodialysis. 7. Chronic rheumatoid arthritis. 8. Hyperlipidemia. 9. Anxiety and depression, not otherwise specified. 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 11.Anemia of chronic kidney disease. PLAN: At this point, continue with home medications. Cardiology is consulted for any further input. Nephrology is consulted for scheduled hemodialysis. Care was discussed with the patient. Copy to Dr. Desai. YRN / GEE: [id number] /
[2018-05-31] MEDS: SERTRALINE 50 MG TAB PO SCH (22:31)
[2018-05-31] MEDS: ZOLPIDEM 5 MG TAB PO SCH (22:31)
[2018-06-01 00:29] LABS: Creatine Kinase MB 0.7 ng/mL (0.0-2.4)
[2018-06-01 00:57] LABS: Troponin I 0.083 ng/mL (0.000-0.034)
[2018-06-01] MEDS: CALCIUM ACETATE 667 MG CAP PO SCH ×3 (06:51→17:29)
[2018-06-01 06:55] LABS: Creatine Kinase MB 0.7 ng/mL (0.0-2.4)
[2018-06-01 07:00] LABS: Troponin I 0.074 ng/mL (0.000-0.034)
[2018-06-01] MEDS: SYMBICORT 160-4.5 MCG INHALER INHALATION SCH ×2 (07:53→19:44)
[2018-06-01] MEDS: IPRATROPIUM-ALBUTEROL 3 ML NEB INHALATION SCH ×4 (07:53→19:43)
[2018-06-01 07:58] LABS: Calcium 9.7 mg/dL (8.4-10.2); Potassium 3.4 mmol/L (3.5-5.1)
[2018-06-01] MEDS ORDERED: NON-FORMULARY DRUG (Umeclidinium Bromide [Incruse Ellipta] 1 PUFF) INHALATION SCH (08:00)
[2018-06-01 08:05] LABS: Anisocytosis Slight; Basophils # (A) 0.1 k/uL (0-0.2); Basophils % (A) 1 %; Eosinophils # (A) 0.2 k/uL (0-0.7); Eosinophils % (A) 3 %; HCT 34.5 % (34.0-46.0); HGB 10.7 gm/dL (11.4-16.0); Hypochromasia Slight; Lymphocytes # (A) 0.7 k/uL (1.0-4.8); Lymphocytes % (A) 11 %; MCH 28.9 pg (25.0-35.0); Macrocytosis Slight; Mean Platelet Volume 6.5; Monocytes # (A) 0.6 k/uL (0-1.0); Monocytes % (A) 9 %; Neutrophils # (A) 4.8 k/uL (1.3-7.7); Neutrophils % (A) 74 %; Platelet Count 386 k/uL (150-450); RDW 19.5 % (11.5-15.5); WBC 6.6 k/uL (3.8-10.6)
[2018-06-01 08:10] LABS: MCV 93.2 fL (80.0-100.0)
[2018-06-01] MEDS ORDERED: HYDROCHLOROTHIAZIDE 25 MG TAB PO SCH (09:00)
[2018-06-01] MEDS: MIDODRINE 5 MG TAB PO SCH (09:20)
--- NOTE | 2018-06-01 09:42 | PN ---
PROGRESS NOTE Brittany is a 72-year-old lady with end-stage renal disease on hemodialysis, hypertension, dyslipidemia, atrial fibrillation, who was admitted to the hospital having had an episode of syncope. The patient passed out after dialysis and has not had any further syncopal events since. Her troponins are mildly elevated at 0.09, 0.08 and 0.07. She denies any chest pain or difficulty in breathing. PHYSICAL EXAMINATION: On exam, she is comfortable at rest. Vital signs are stable. She has significant orthostatic changes. Chest exam reveals diminished air entry at the bases. Heart exam reveals first and second heart sounds. No gallop. No rub. We hear a continuous murmur from the shunt. Abdomen is soft. Examination of the extremities did not reveal any edema. Peripheral pulses are palpable. LABS: BUN and creatinine are elevated. Troponins are mildly elevated. EKG shows sinus rhythm with extensive ST-T wave changes. Echocardiogram shows that she has normal LV systolic function. ASSESSMENT: 1. Syncope probably secondary to orthostatic hypotension. 2. Elevated troponins could be related to renal failure. PLAN: I am going to start her on midodrine, decrease the dose of hydralazine, ambulate her. Check and see if she had a recent stress test. If not, I will get a stress test done in the outpatient setting. YRN / GEE: [id number] /
--- NOTE | 2018-06-01 10:59 | US ---
EXAMINATION TYPE: US carotid duplex BILAT DATE OF EXAM: 06/01/2018 COMPARISON: NONE CLINICAL HISTORY: Syncope. h/o stroke 10 years ago EXAM MEASUREMENTS: RIGHT: Peak Systolic Velocity (PSV) cm/sec ----- Right CCA: 57.2 ----- Right ICA: 166.7 ----- Right ECA: 154.9 ICA/CCA ratio: 2.9 RIGHT: End Diastole cm/sec ----- Right CCA: 11.0 ----- Right ICA: 40.6 ----- Right ECA: 15.0 LEFT: Peak Systolic Velocity (PSV) cm/sec ----- Left CCA: 87.2 ----- Left ICA: 80.6 ----- Left ECA: 100.4 ICA/CCA ratio: 0.9 LEFT: End Diastole cm/sec ----- Left CCA: 14.6 ----- Left ICA: 12.4 ----- Left ECA: 0.0 VERTEBRALS (direction of flow): Right Vertebral: Antegrade Left Vertebral: Antegrade Rhythm: Normal Grayscale images show extensive plaque throughout the common carotid arteries including at level of c arotid bulb. Increased peak systolic and end-diastolic velocity is noted in right internal carotid ar sidney with abnormal ratio. Velocity measurements remain normal on the left though there is more promin ent plaque identified. IMPRESSION: Severe atherosclerotic change bilaterally, suspect bilateral hemodynamically clinically significant stenosis . Advise CTA or MRA of the neck to further evaluate and characterize. Criteria for Assigning % of Stenosis / Diameter reduction (Estimation based on the indirect measurements of the internal carotid artery velocities (ICA PSV). 1. Normal (no stenosis)=ICA PSV < 125 cm/s: ratio < 2.0: ICA EDV<40 cm/s. 2. Less than 50% stenosis=ICA PSV < 125 cm/s: ratio < 2.0: ICA EDV<40 cm/s. 3. 50 to 69% stenosis=ICA PSV of 125 to 230 cm/s: ration 2.0 ? 4.0: ICA EDV 40-100 cm/s. 4. Greater than 70% stenosis to near occlusion= ICA PSV > 230 cm/s: ratio > 4.0: ICA EDV > 100 cm/s. 5. Near occlusion= ICA PSV velocities may be low or undetectable: variable ratio and ICA EDV. 6. Total occlusion=unable to detect flow.
[2018-06-01 11:00] VITALS: BMI 18.1
[2018-06-01] MEDS: ACETAMINOPHEN TAB 325 MG TAB PO PRN ×2 (11:00→17:29)
[2018-06-01] MEDS: hydrALAZINE HCL 25 MG TAB PO SCH ×3 (11:01→20:34)
[2018-06-01] MEDS: ALLOPURINOL 100 MG TAB PO SCH (11:01)
[2018-06-01] MEDS: amLODIPine 10 MG TAB PO SCH (11:01)
[2018-06-01] MEDS: FUROSEMIDE 80 MG TAB PO SCH ×2 (11:01→17:29)
[2018-06-01] MEDS: METOPROLOL TARTRATE 50 MG TAB PO SCH ×2 (11:01→20:34)
[2018-06-01] MEDS: APIXABAN 2.5 MG TABLET PO SCH ×2 (11:01→20:34)
[2018-06-01] MEDS: POTASSIUM CHLORIDE ER 20 MEQ TAB.ER PO SCH (11:02)
[2018-06-01] MEDS: AMIODARONE 200 MG TAB PO SCH (11:02)
[2018-06-01] MEDS: ATORVASTATIN 20 MG TAB PO SCH (11:02)
--- NOTE | 2018-06-01 12:31 | P.NPCON ---
History of Present Illness - Reason for Consult end stage renal disease - History of Present Illness Reason for consultation: End-stage renal disease History of present illness: Patient is a 72-year-old female seen in renal consultation for end-stage renal disease. She is maintained on hemodialysis on a Thursday schedule via permacath. Patient presented to the hospital after she had a syncopal episode after completing hemodialysis yesterday. She denies any chest pain or shortness of breath. Patient states she did lose consciousness for a short duration of time. Her orthostatics were noted to be positive this morning. Carotid ultrasound revealed significant stenosis bilaterally. She also has history of diastolic CHF. Currently having lunch. No vomiting or diarrhea. No fever or chills. Potassium is slightly low which is being replaced. She was started on midodrine by cardiology today. Vital signs are stable. General: The patient appeared well nourished and normally developed. HEENT: Head exam is unremarkable. Neck is without jugular venous distension. LUNGS: Lungs are clear to auscultation and percussion. Breath sounds decreased. HEART: Rate and Rhythm are regular. First and second heart sounds normal. No murmurs, rubs or gallops. ABDOMEN: Abdominal exam reveals normal bowel sounds. Non-tender and non- distended. No evidence of peritonitis. EXTREMITITES: No clubbing, cyanosis, or edema. Past Medical History Past Medical History: Atrial Fibrillation, Asthma, Heart Failure, COPD, CVA/TIA , Hypertension, Osteoarthritis (OA), Pneumonia, Renal Disease, Syncope Additional Past Medical History / Comment(s): CVA 2006 recent ARF had dialysis cath inserted 02-02-18 gets dialysis Thu-Thu-Thu. History of Any Multi-Drug Resistant Organisms: None Reported Past Surgical History: Tonsillectomy Additional Past Surgical History / Comment(s): ORIF rt ankle-[address], IUD removal, lumbar steroid injections, dental implants, cardioversion, dialysis cath. has ocl on l wrist, states fell 1 month ago and has a hairline fracture of wrist Past Anesthesia/Blood Transfusion Reactions: No Reported Reaction Additional Past Anesthesia/Blood Transfusion Reaction / Comment(s): Past blood transfusions - no reaction Smoking Status: Former smoker - Past Family History Mother Additional Family Medical History / Comment(s): Mother in her 80s from abdominal aortic aneurysm. Father Family Medical History: Myocardial Infarction (MA) Additional Family Medical History / Comment(s): Father at age 52 from acute MA. Medications and Allergies Home Medications Medication Instructions Recorded Confirmed Type Sertraline HCl [Zoloft] 50 mg PO HS 04/30/17 05/31/18 History amLODIPine [Norvasc] 10 mg PO DAILY tab 07/16/17 05/31/18 Rx Allopurinol [Zyloprim] 100 mg PO DAILY 09/09/17 05/31/18 History Apixaban [Eliquis] 2.5 mg PO BID #60 tablet 02/06/18 05/31/18 Rx Metoprolol Tartrate [Lopressor] 50 mg PO BID #60 tab 02/06/18 05/31/18 Rx Ipratropium-Albuterol Nebulize 3 ml INHALATION RT-QID 03/14/18 05/31/18 History [Duoneb 0.5 mg-3 mg/3 ml Soln] Furosemide [Lasix] 80 mg PO BID@0900,1600 tab 04/10/18 05/31/18 Rx Albuterol Inhaler [Ventolin Hfa 2 puff INHALATION RT-Q4H PRN 05/31/18 05/31/18 History Inhaler] Amiodarone HCl [Pacerone] 200 mg PO DAILY 05/31/18 05/31/18 History Atorvastatin [Lipitor] 20 mg PO DAILY 05/31/18 05/31/18 History Budesonide-Formot 160-4.5 Mcg 2 puff INHALATION RT-BID 05/31/18 05/31/18 History [Symbicort 160-4.5 Mcg Inhaler] Calcium Acetate [PhosLo] 667 mg PO AC-TID 05/31/18 05/31/18 History Hydrochlorothiazide [Hydrodiuril] 25 mg PO DAILY 05/31/18 05/31/18 History Potassium Chloride [Klor-Con 20] 20 meq PO DAILY 05/31/18 05/31/18 History Umeclidinium [place] [Incruse 1 puff INHALATION RT-DAILY 05/31/18 05/31/18 History Ellipta] Zolpidem [Ambien] 5 mg PO HS 05/31/18 05/31/18 History hydrALAZINE HCL [Apresoline] 50 mg PO TID 05/31/18 05/31/18 History Allergies Allergy/AdvReac Type Severity Reaction Status Date / Time No Known Allergies Allergy Verified 05/31/18 14:34 Physical Exam Vitals: Vital Signs Temp Pulse Pulse Pulse Pulse Pulse Resp 06/01/18 11:36 54 L 06/01/18 11:27 60 20 06/01/18 11:05 58 L 16 06/01/18 08:25 97.7 F 60 63 57 L 16 06/01/18 08:01 52 L 12 06/01/18 07:56 52 L 12 06/01/18 04:00 56 L 18 06/01/18 03:59 97.4 F L 56 L 18 06/01/18 00:00 97.6 F 62 18 05/31/18 20:00 97.8 F 69 18 05/31/18 18:00 98 F 64 16 05/31/18 17:44 61 05/31/18 16:37 65 18 05/31/18 13:40 98.2 F 58 L 18 BP BP BP BP BP Pulse Ox 06/01/18 11:36 06/01/18 11:27 06/01/18 11:05 198/97 96 06/01/18 08:25 153/74 111/67 169/72 96 06/01/18 08:01 06/01/18 07:56 06/01/18 04:00 06/01/18 03:59 129/70 94 L 06/01/18 00:00 139/72 96 05/31/18 20:00 164/70 95 05/31/18 18:00 183/92 97 05/31/18 17:44 166/92 05/31/18 16:37 193/91 98 05/31/18 13:40 162/81 97 Intake and Output 05/31/18 06/01/18 06/01/18 22:59 06:59 14:59 Intake Total 240 240 Balance 240 240 Intake: Oral 240 240 Other: Voiding Method Toilet Toilet Toilet # Voids 1 1 Weight 49.3 kg 49.3 kg Results - Lab Results Most recent lab results Calcium 9.7 mg/dL (8.4-10.2) 06/01/18 05:45 06/01/18 05:45 06/01/18 05:45 Assessment and Plan Plan: Assessment: 1. End-stage renal disease maintained on hemodialysis on a Thursday schedule via permacath. 2. Hypokalemia from low potassium dialysate and diuretics. 3. Syncopal episode. Can be from orthostatic hypotension. Additionally she is noted to have bilateral carotid stenosis which can be contributing factor. 4. Diastolic CHF. Compensated. 5. Orthostatic hypotension. Started on midodrine. 6. Chronic kidney disease mineral bone disease maintained on PhosLo. Plan: Maintain potassium supplementation. Hemodialysis tomorrow. Thank you for the consultation. I will continue to follow the patient with you during her hospital stay.
--- NOTE | 2018-06-01 16:09 | PN ---
PROGRESS NOTE ADDENDUM NOTE: This 72-year-old lady was admitted to hospital with syncope, has orthostatic changes, but a carotid duplex study shows severe bilateral carotid stenosis. I am going to have a vascular surgeon evaluate her. YRN / TRINAN: [id number] /
--- NOTE | 2018-06-01 16:24 | CONS ---
DATE OF CONSULTATION: 06/01/2018 Brittany is known to me from the past. Patient had a right IJ catheter placed by me about 2 months ago. She is having dialysis. According to the patient, after the dialysis she had a syncopal episode and she was transferred to the emergency room and had a complete cardiac and stroke workup. The patient had ultrasound of the carotids. The patient was found to have high-grade stenosis bilaterally. No history of TIA no history of any motor deficit. Patient also has fibrillation and chronic diastolic heart failure. PERSONAL HISTORY: NO KNOWN ALLERGIES. SURGICAL HISTORY: Patient had a dialysis catheter placed 2 months ago in the right IJ. PHYSICAL EXAMINATION: Patient was seen in her room. She has left arm. Her vital signs are stable. Well oriented to time and place. Her neck is supple. No bruit appreciated. CHEST: Clear on auscultation. ABDOMEN: Soft. Femoral pulses are present. CENTRAL NERVOUS SYSTEM: Oriented to time and place. Normal motor function, upper and lower extremities. IMPRESSION: Patient has bilateral high-grade stenosis. At this point, her syncopal attack is not due to carotid stenosis. Patient has some orthostatic hypotension also. I have discussed with the patient. We will follow her in my office very closely. Down the road she will need some kind of CTA or arch study to evaluate further. Patient is scheduled to have dialysis tomorrow at 7 in the morning, and then we will follow up with you. If she goes home, I will follow up with her in my office. We will do an outpatient workup for her carotid stenosis. MMODL / IJN: [id number] / [place]
[2018-06-01] MEDS: SODIUM CHLORIDE 0.9% 1,000 ML IV SCH (17:30)
[2018-06-01] MEDS: SERTRALINE 50 MG TAB PO SCH (22:22)
[2018-06-01] MEDS: ZOLPIDEM 5 MG TAB PO SCH (22:22)
--- NOTE | 2018-06-01 23:42 | PN ---
PROGRESS NOTE DATE OF SERVICE: 06/01/2018 PRESENTING COMPLAINT: Syncope. INTERVAL HISTORY: This patient presented with syncope, possibly vasovagal. No hemodialysis today. Carotid Dopplers did show bilateral significant stenosis, for which Vascular Surgery was consulted. Some medications were adjusted by Cardiology. Otherwise, patient is feeling well, tolerating a diet, up to the bathroom. REVIEW OF SYSTEMS: Done for constitutional, cardiovascular, GI, pulmonary; relevant findings as above. CURRENT MEDICATIONS: Reviewed. PHYSICAL EXAMINATION: Temperature 97.7, pulse 55, respiration 16, blood pressure 147/72, pulse ox 97% on room air. GENERAL APPEARANCE: Lying in bed, comfortable. EYES: Pupils equal. Conjunctivae normal. NECK: JVD not raised. Mass not palpable. RESPIRATORY: Effort normal. LUNGS: Decreased breath sounds. CARDIOVASCULAR: Heart sounds irregular. No edema. ABDOMEN: Soft, nontender. Liver and spleen not palpable. PSYCHIATRY: Alert and oriented x3. Mood and affect normal. INVESTIGATIONS: Carotid Doppler shows bilateral stenosis. BUN 23, creatinine 2.64, potassium 3.4. ASSESSMENT: 1. Syncope, likely vasovagal, following hemodialysis. 2. Troponin leak in the setting of renal failure with no cardiac symptoms. 3. Hypertensive heart disease. 4. Chronic obstructive pulmonary disease. 5. Paroxysmal atrial fibrillation, currently in sinus rhythm. 6. End-stage kidney disease, on hemodialysis, with hyp tension. 7. Chronic rheumatoid arthritis. 8. Hyperlipidemia. 9. Anxiety and depression not otherwise specified. 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 11.Anemia of chronic kidney disease. 12.Bilateral carotid artery stenosis. PLAN: Dr. Dickens from Vascular was consulted, who did see the patient later this afternoon. To follow up in the office. Medications were adjusted by Dr. Curry earlier today. Will keep an eye on the blood pressure, encourage the patient to ambulate. Hopefully home tomorrow after hemodialysis. MMODL / IJN: [id number] /
[2018-06-02] MEDS: CALCIUM ACETATE 667 MG CAP PO SCH ×2 (06:50→11:22)
[2018-06-02] MEDS: IPRATROPIUM-ALBUTEROL 3 ML NEB INHALATION SCH ×2 (07:32→11:40)
[2018-06-02] MEDS: SYMBICORT 160-4.5 MCG INHALER INHALATION SCH (07:32)
--- NOTE | 2018-06-02 11:05 | P.PN ---
Subjective Progress Note Date: 06/02/18 This is a 72-year-old female patient with history of hypertension, hyperlipidemia, atrial fibrillation, end-stage renal disease on hemodialysis who presented to the hospital following a syncopal episode which occurred just after dialysis. She came back to be positive for orthostatics, and was initiated on midodrine yesterday. Patient also had a carotid Doppler study done yesterday which revealed severe atherosclerotic changes bilaterally, bilateral hemodynamically clinical significant stenosis. Dr. Dickens was consulted to see the patient. He did come in to see her last evening, and recommended that he would follow her up as an outpatient. The patient had an echocardiogram with Doppler study performed here which revealed an ejection fraction of 55-60%. She was seen and examined this morning, currently was undergoing dialysis, she denied any dizziness or lightheadedness. Her blood pressure this morning 152/80 with a heart rate in the 50s to 60s, 98% on room air. White blood cell count 6.6, hemoglobin 10.7, platelet count 386. Sodium 135, potassium 3.4, BUN 23 and creatinine 2.6. Objective - Vital Signs Vital signs: Vital Signs Temp 98.1 F 06/02/18 08:00 Pulse 53 L 06/02/18 08:00 Resp 17 06/02/18 08:00 BP 153/81 06/02/18 08:00 Pulse Ox 98 06/02/18 08:00 Intake & Output 06/01/18 06/02/18 06/02/18 18:59 06:59 18:59 Intake Total 462 760 Output Total 900 Balance -438 760 Weight 49.3 kg 50.2 kg Intake: Oral 462 760 Output: Urine 900 Other: Voiding Method Toilet Toilet Toilet # Voids 1 1 - Exam PHYSICAL EXAMINATION: GENERAL: 72-year-old female in no acute distress at the time of my examination HEENT: Head is atraumatic, normocephalic. Pupils equal, round. Sclera anicteric. Conjunctiva are clear. Mucous membranes of the mouth are moist. Neck is supple. There is no elevated jugular venous pressure. No carotid bruit is heard. HEART EXAMINATION: Heart S1, S2 normal. No murmur or gallop heard. CHEST EXAMINATION: Lungs are clear to auscultation and precussion. No chest wall tenderness is noted on palpation or with deep breathing. ABDOMEN: Soft, nontender. Bowel sounds are heard. No organomegaly noted. EXTREMITIES: 2+ peripheral pulses with no evidence of peripheral edema and no calf tenderness noted. NEUROLOGIC patient is awake, alert and oriented 3. . - Labs CBC & Chem 7: 06/01/18 05:45 06/01/18 05:45 Assessment and Plan Plan: Assessment and plan #1 syncope, likely secondary to orthostatic hypotension, patient is also found to have bilateral severe critical carotid stenosis. #2 paroxysmal atrial fibrillation #3 end-stage renal disease on hemodialysis #4 chronic congestive heart failure diastolic Plan Patient has been seen in consultation by Dr. Dickens who recommended a follow- up as an outpatient. From our standpoint she may be able to be discharged home today to follow-up with Dr. Curry in the office post discharge. We will continue current medications along with the midodrine which was initiated. DNP note has been reviewed, I agree with a documented findings and plan of care. Patient was seen and examined.
[2018-06-02 11:16] VITALS: RESP 16; TEMP 97.5
[2018-06-02] MEDS: METOPROLOL TARTRATE 50 MG TAB PO SCH (11:21)
[2018-06-02] MEDS: ATORVASTATIN 20 MG TAB PO SCH (11:21)
[2018-06-02] MEDS: FUROSEMIDE 80 MG TAB PO SCH (11:21)
[2018-06-02] MEDS: POTASSIUM CHLORIDE ER 20 MEQ TAB.ER PO SCH (11:21)
[2018-06-02] MEDS: hydrALAZINE HCL 25 MG TAB PO SCH (11:21)
[2018-06-02] MEDS: amLODIPine 10 MG TAB PO SCH (11:22)
[2018-06-02] MEDS: ALLOPURINOL 100 MG TAB PO SCH (11:22)
[2018-06-02] MEDS: AMIODARONE 200 MG TAB PO SCH (11:22)
[2018-06-02] MEDS: MIDODRINE 5 MG TAB PO SCH (11:22)
[2018-06-02] MEDS: APIXABAN 2.5 MG TABLET PO SCH (11:22)
--- NOTE | 2018-06-02 11:50 | P.PN ---
Subjective Patient is seen in follow-up for end-stage renal disease. She is maintained on hemodialysis on a Thursday schedule via permacath. She underwent hemodialysis this morning. Hemodynamically stable. No vomiting or diarrhea. No active complaints at this time. Vital signs are stable. General: The patient appeared well nourished and normally developed. HEENT: Head exam is unremarkable. Neck is without jugular venous distension. LUNGS: Lungs are clear to auscultation and percussion. Breath sounds decreased. HEART: Rate and Rhythm are regular. First and second heart sounds normal. No murmurs, rubs or gallops. ABDOMEN: Abdominal exam reveals normal bowel sounds. Non-tender and non- distended. No evidence of peritonitis. EXTREMITITES: No clubbing, cyanosis, or edema. Objective - Vital Signs Vital signs: Vital Signs Temp 97.5 F L 06/02/18 11:15 Pulse 52 L 06/02/18 11:25 Resp 16 06/02/18 11:25 BP 185/85 06/02/18 11:15 Pulse Ox 98 06/02/18 11:15 Intake & Output 06/01/18 06/02/18 06/02/18 18:59 06:59 18:59 Intake Total 462 760 Output Total 900 2150 Balance -438 -1390 Weight 49.3 kg 50.2 kg Intake: Oral 462 760 Output: Urine 900 150 Other 2000 Other: Voiding Method Toilet Toilet Toilet # Voids 1 1 - Labs CBC & Chem 7: 06/01/18 05:45 06/01/18 05:45 Assessment and Plan Plan: Assessment: 1. End-stage renal disease maintained on hemodialysis on a Thursday schedule via permacat. 2. Hypokalemia from low potassium dialysate and diuretics. 3. Syncopal episode. Can be from orthostatic hypotension. Additionally she is noted to have bilateral carotid stenosis which can be contributing factor. She has been evaluated by vascular surgery. 4. Diastolic CHF. Compensated. 5. Orthostatic hypotension. Started on midodrine. 6. Chronic kidney disease mineral bone disease maintained on PhosLo. Plan: Maintain potassium supplementation. Next hemodialysis on Thursday. Stable to be discharged home from nephrology standpoint.
[2018-06-02 14:29] VITALS: BP 144/78; PULSE 51
--- NOTE | 2018-06-03 08:08 | DS ---
DISCHARGE SUMMARY DATE OF ADMISSION: 05/31/2018 DATE OF DISCHARGE: 06/02/2018 FINAL DIAGNOSES: 1. Syncope, likely vasovagal following hemodialysis. 2. Troponin leak in the setting of renal failure, no evidence of cardiac symptoms. 3. Hypertensive heart disease. 4. Chronic obstructive pulmonary disease. 5. Paroxysmal atrial fibrillation, currently in sinus rhythm. 6. End-stage kidney disease on hemodialysis. 7. Chronic rheumatoid arthritis. 8. Hyperlipidemia. 9. Anxiety, depression not otherwise specified. 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 11.Anemia of chronic kidney disease. 12.Bilateral carotid artery stenosis. CONSULTATIONS: 1. Dr. Alicia Curry from Cardiology. 2. Dr. Wilde from Nephrology. 3. Dr. Dickens from Vascular Surgery. HOSPITAL COURSE: This patient who gets 4 hours of dialysis passed out, felt to be vasovagal. There is a troponin leak that is not felt to be really acute cardiac event. Patient did have a 2-D echocardiogram. There is an EF of 55% to 60%. Patient did have a carotid Doppler that did show significant stenosis of both sides. Seen by Dr. Dickens who felt this was not contributing to her presentation. Will see the patient as an outpatient. Some medications were adjusted by Dr. Curry. PHYSICAL EXAMINATION: Temperature 97.5, pulse 52, respiration 16, blood pressure 144/78, pulse ox 98% on room air. LUNGS: Decreased breath sounds. CARDIOVASCULAR: First and second sounds are normal. ABDOMEN: Soft. PSYCH: Alert and oriented x3. INVESTIGATIONS: A 2D echo as above. Carotid Doppler showing bilateral hemodynamically clinically significant stenosis. Care was discussed with the patient and . Questions were answered. Also discussed with Dr. Wilde. Discussion and discharge planning more than 35 minutes. DISCHARGE MEDICATIONS: 1. Zoloft 50 mg q.h.s. 2. Norvasc 10 mg p.o. daily. 3. Allopurinol 100 mg p.o. daily. 4. Eliquis 2.5 mg p.o. b.i.d. 5. Lopressor 50 mg b.i.d. 6. DuoNeb q.i.d. 7. Lasix 80 mg p.o. b.i.d. 8. Ventolin HFA 2 puffs q.4 p.r.n. 9. Amiodarone 200 mg daily. 10.Lipitor 20 mg p.o. daily. 11.Symbicort 160/4.5 two puffs b.i.d. 12.PhosLo 667 mg p.o. a.c. t.i.d. 13.Potassium 20 mEq p.o. daily. 14.Increase Ellipta 1 puff daily. 15.Ambien 5 mg q.h.s. 16.Hydralazine 50 mg p.o. t.i.d. 17.Midodrine 2.5 mg p.o. daily. FOLLOWUP: Follow up with Dr. Desai in 2 days. Follow up with Dr. Perez in 1 week. Follow up with Dr. Dickens on 06/10/2018; Dr. Tamar Curry on 05/30/2018. Discussion and discharge planning more than 35 minutes. MMRODGERL / IJN: [id number] /
== END 2018-06-02 16:02 | disposition home or self-care (01) | DRG 312 ==
LOC: EC 13:28 → 3SCARD 14:31
PROVIDERS: ADMIT Hospitalist; ATTEND Hospitalist
DX: I95.1 Orthostatic hypotension (principal); N18.6 End stage renal disease; I13.2 Hypertensive heart and chronic kidney disease with heart failure and with stage 5 chronic kidney disease, or end stage renal disease; I50.32 Chronic diastolic (congestive) heart failure; J44.9 Chronic obstructive pulmonary disease, unspecified; I65.23 Occlusion and stenosis of bilateral carotid arteries; D63.1 Anemia in chronic kidney disease; I48.0 Paroxysmal atrial fibrillation; M06.9 Rheumatoid arthritis, unspecified; E78.5 Hyperlipidemia, unspecified; E87.6 Hypokalemia; F32.9 Major depressive disorder, single episode, unspecified; F41.9 Anxiety disorder, unspecified; M19.90 Unspecified osteoarthritis, unspecified site; R77.9 Abnormality of plasma protein, unspecified; E83.89 Other disorders of mineral metabolism; T50.2X5A Adverse effect of carbonic-anhydrase inhibitors, benzothiadiazides and other diuretics, initial encounter; T50.3X5A Adverse effect of electrolytic, caloric and water-balance agents, initial encounter; Z79.01 Long term (current) use of anticoagulants; Z79.51 Long term (current) use of inhaled steroids; Z79.899 Other long term (current) drug therapy; Z99.2 Dependence on renal dialysis; Z87.891 Personal history of nicotine dependence; Z86.73 Personal history of transient ischemic attack (TIA), and cerebral infarction without residual deficits; Z87.01 Personal history of pneumonia (recurrent); Z82.49 Family history of ischemic heart disease and other diseases of the circulatory system
CPT/HCPCS: 80048; 82550; 82553; 84484; 85025; 93005; 93306; 93880; 93970; 94640; 99285

== ENCOUNTER 2018-06-24 14:35 | Emergency (ER) | payer MEDICARE, BC ==
[2018-06-24] MEDS ORDERED: SODIUM CHLORIDE 0.9% 1,000 ML IV STA (15:00)
[2018-06-24] MEDS ORDERED: SODIUM CHLORIDE 0.9% 500 ML 500 ML IV STA ×2 (15:00→16:32)
--- NOTE | 2018-06-24 15:03 | ED ---
Recheck HPI - General Chief Complaint: Recheck/Abnormal Lab/Rx Stated Complaint: hypertension Time Seen by Provider: 06/24/18 14:35 Source: patient, RN notes reviewed Mode of arrival: EMS Limitations: no limitations - History of Present Illness Initial Comments: This is a 72-year-old female history of hypertension who was brought in by EMS because of the pressure was discovered on routine visit to her doctor's office she has a headache dizziness blurry vision nausea vomiting sweats chest pain shortness of breath palpitations or other symptoms she is on blood pressure medication. MD Complaint: other - Related Data Home Medications Medication Instructions Recorded Confirmed Sertraline HCl [Zoloft] 50 mg PO HS 04/30/17 06/24/18 Allopurinol [Zyloprim] 100 mg PO DAILY 09/09/17 06/24/18 Ipratropium-Albuterol Nebulize 3 ml INHALATION RT-QID 03/14/18 06/24/18 [Duoneb 0.5 mg-3 mg/3 ml Soln] Albuterol Inhaler [Ventolin Hfa 2 puff INHALATION RT-Q4H PRN 05/31/18 06/24/18 Inhaler] Amiodarone HCl [Pacerone] 200 mg PO DAILY 05/31/18 06/24/18 Atorvastatin [Lipitor] 20 mg PO DAILY 05/31/18 06/24/18 Budesonide-Formot 160-4.5 Mcg 2 puff INHALATION RT-BID 05/31/18 06/24/18 [Symbicort 160-4.5 Mcg Inhaler] Calcium Acetate [PhosLo] 667 mg PO AC-TID 05/31/18 06/24/18 Potassium Chloride [Klor-Con 20] 20 meq PO DAILY 05/31/18 06/24/18 Umeclidinium [place] [Incruse 1 puff INHALATION RT-DAILY 05/31/18 06/24/18 Ellipta] Zolpidem [Ambien] 5 mg PO HS 05/31/18 06/24/18 hydrALAZINE HCL [Apresoline] 50 mg PO TID 05/31/18 06/24/18 Furosemide [Lasix] 80 mg PO BID 06/24/18 06/24/18 Hydrochlorothiazide 12.5 mg PO DAILY 06/24/18 06/24/18 Previous Rx's Medication Instructions Recorded amLODIPine [Norvasc] 10 mg PO DAILY tab 07/16/17 Apixaban [Eliquis] 2.5 mg PO BID #60 tablet 02/06/18 Metoprolol Tartrate [Lopressor] 50 mg PO BID #60 tab 02/06/18 Midodrine [ProAmatine] 2.5 mg PO DAILY #30 tab 06/02/18 Allergies Allergy/AdvReac Type Severity Reaction Status Date / Time No Known Allergies Allergy Verified 06/24/18 17:08 Review of Systems ROS Statement: Those systems with pertinent positive or pertinent negative responses have been documented in the HPI. ROS Other: All systems not noted in ROS Statement are negative. Past Medical History Past Medical History: Atrial Fibrillation, Asthma, Heart Failure, COPD, CVA/TIA , Hypertension, Osteoarthritis (OA), Pneumonia, Renal Disease, Syncope Additional Past Medical History / Comment(s): CVA 2005 recent ARF had dialysis cath inserted 02-02-18 gets dialysis Thu-Thu-Thu. History of Any Multi-Drug Resistant Organisms: None Reported Past Surgical History: Tonsillectomy Additional Past Surgical History / Comment(s): ORIF rt ankle-[address], IUD removal, lumbar steroid injections, dental implants, cardioversion, dialysis cath. has ocl on l wrist, states fell 1 month ago and has a hairline fracture of wrist Past Anesthesia/Blood Transfusion Reactions: No Reported Reaction Additional Past Anesthesia/Blood Transfusion Reaction / Comment(s): Past blood transfusions - no reaction Past Psychological History: No Psychological Hx Reported Smoking Status: Former smoker - Past Family History Mother Additional Family Medical History / Comment(s): Mother in her 80s from abdominal aortic aneurysm. Father Family Medical History: Myocardial Infarction ([place]) Additional Family Medical History / Comment(s): Father at age 52 from acute [place]. General Exam - General Exam Comments Initial Comments: This is a well-developed sec appearing female who is awake alert oriented 3 Limitations: no limitations General appearance: alert, in no apparent distress Head exam: Present: atraumatic, normocephalic, normal inspection Eye exam: Present: normal appearance, PERRL, EOMI. Absent: scleral icterus, conjunctival injection, periorbital swelling ENT exam: Present: mucous membranes dry Neck exam: Present: normal inspection. Absent: tenderness, meningismus, lymphadenopathy Respiratory exam: Present: normal lung sounds bilaterally. Absent: respiratory distress, wheezes, rales, rhonchi, stridor Cardiovascular Exam: Present: regular rate, normal rhythm, normal heart sounds. Absent: systolic murmur, diastolic murmur, rubs, gallop, clicks GI/Abdominal exam: Present: soft, normal bowel sounds. Absent: distended, tenderness, guarding, rebound, rigid Extremities exam: Present: normal inspection, full ROM, normal capillary refill. Absent: tenderness, pedal edema, joint swelling, calf tenderness Back exam: Present: normal inspection Neurological exam: Present: alert, oriented X3, CN II-XII intact Psychiatric exam: Present: normal affect, normal mood Skin exam: Present: warm, dry, intact, normal color. Absent: rash Course Vital Signs 06/24/18 06/24/18 06/24/18 14:38 15:51 16:29 Temperature 98.2 F Pulse Rate 72 72 75 Respiratory 18 16 18 Rate Blood Pressure 231/124 220/99 225/116 O2 Sat by Pulse 95 95 96 Oximetry 06/24/18 06/24/18 17:03 17:44 Temperature Pulse Rate 81 Respiratory 18 Rate Blood Pressure 211/108 209/112 O2 Sat by Pulse 94 L Oximetry Medical Decision Making - Medical Decision Making Patient did finally some improvement in her blood pressure after medications I did a long discussion with Dr. Vargas regarding the medications. Patient's hydralazine she will be increased 100 mg 3 times a day additionally the 10th, thiazide will be increased to 25 mg remainder the occasional status and patient will get dialysis tomorrow as planned and be reevaluated then. - Lab Data Result diagrams: 06/24/18 15:19 06/24/18 15:19 Lab Results 06/24/18 06/24/18 06/24/18 Range/Units 15:19 15:19 15:19 WBC 5.4 (3.8-10.6) k/uL RBC 4.02 (3.80-5.40) m/uL Hgb 12.2 (11.4-16.0) gm/dL Hct 38.2 (34.0-46.0) % MCV 95.0 (80.0-100.0) fL MCH 30.3 (25.0-35.0) pg MCHC 31.9 (31.0-37.0) g/dL RDW 18.8 H (11.5-15.5) % Plt Count 211 (150-450) k/uL Neutrophils % (Manual) 64 % Band Neutrophils % 3 % Lymphocytes % (Manual) 17 % Monocytes % (Manual) 7 % Eosinophils % (Manual) 8 % Basophils % (Manual) 1 % Neutrophils # (Manual) 3.60 (1.3-7.7) k/uL Lymphocytes # (Manual) 0.92 L (1.0-4.8) k/uL Monocytes # (Manual) 0.38 (0-1.0) k/uL Eosinophils # (Manual) 0.43 (0-0.7) k/uL Basophils # (Manual) 0.05 (0-0.2) k/uL Nucleated RBCs 0 (0-0) /100 WBC Manual Slide Review Performed Polychromasia Present Hypochromasia Slight Poikilocytosis (manual Present Anisocytosis Slight Macrocytosis Slight D-Dimer (<0.60) mg/L FEU Sodium 133 L (137-145) mmol/L Potassium 3.8 (3.5-5.1) mmol/L Chloride 93 L (98-107) mmol/L Carbon Dioxide 30 (22-30) mmol/L Anion Gap 10 mmol/L BUN 29 H (7-17) mg/dL Creatinine 2.10 H (0.52-1.04) mg/dL Est GFR (CKD-EPI)AfAm 27 (>60 ml/min/1.73 sqM) Est GFR (CKD-EPI)NonAf 23 (>60 ml/min/1.73 sqM) Glucose 80 (74-99) mg/dL Calcium 9.8 (8.4-10.2) mg/dL Magnesium 2.1 (1.6-2.3) mg/dL Total Bilirubin 0.6 (0.2-1.3) mg/dL AST 25 (14-36) U/L ALT 19 (9-52) U/L Alkaline Phosphatase 108 (38-126) U/L Total Creatine Kinase 29 L (30-135) U/L CK-MB (CK-2) 0.9 (0.0-2.4) ng/mL CK-MB (CK-2) Rel Index 3.1 C-Reactive Protein 6.0 (<10.0) mg/L Total Protein 7.2 (6.3-8.2) g/dL Albumin 4.1 (3.5-5.0) g/dL 06/24/18 Range/Units 15:19 WBC (3.8-10.6) k/uL RBC (3.80-5.40) m/uL Hgb (11.4-16.0) gm/dL Hct (34.0-46.0) % MCV (80.0-100.0) fL MCH (25.0-35.0) pg MCHC (31.0-37.0) g/dL RDW (11.5-15.5) % Plt Count (150-450) k/uL Neutrophils % (Manual) % Band Neutrophils % % Lymphocytes % (Manual) % Monocytes % (Manual) % Eosinophils % (Manual) % Basophils % (Manual) % Neutrophils # (Manual) (1.3-7.7) k/uL Lymphocytes # (Manual) (1.0-4.8) k/uL Monocytes # (Manual) (0-1.0) k/uL Eosinophils # (Manual) (0-0.7) k/uL Basophils # (Manual) (0-0.2) k/uL Nucleated RBCs (0-0) /100 WBC Manual Slide Review Polychromasia Hypochromasia Poikilocytosis (manual Anisocytosis Macrocytosis D-Dimer 0.80 H (<0.60) mg/L FEU Sodium (137-145) mmol/L Potassium (3.5-5.1) mmol/L Chloride (98-107) mmol/L Carbon Dioxide (22-30) mmol/L Anion Gap mmol/L BUN (7-17) mg/dL Creatinine (0.52-1.04) mg/dL Est GFR (CKD-EPI)AfAm (>60 ml/min/1.73 sqM) Est GFR (CKD-EPI)NonAf (>60 ml/min/1.73 sqM) Glucose (74-99) mg/dL Calcium (8.4-10.2) mg/dL Magnesium (1.6-2.3) mg/dL Total Bilirubin (0.2-1.3) mg/dL AST (14-36) U/L ALT (9-52) U/L Alkaline Phosphatase (38-126) U/L Total Creatine Kinase (30-135) U/L CK-MB (CK-2) (0.0-2.4) ng/mL CK-MB (CK-2) Rel Index C-Reactive Protein (<10.0) mg/L Total Protein (6.3-8.2) g/dL Albumin (3.5-5.0) g/dL - EKG Data -: EKG Interpreted by Me (Sinus rhythm a 65 appear interval 174 QRS duration 14 QT since QTC 404/461 ) - Radiology Data Radiology results: report reviewed (Imaging was reviewed no acute findings.), image reviewed Disposition Clinical Impression: Asymptomatic hypertensive urgency, Chronic renal failure Disposition: HOME SELF-CARE Condition: Stable Additional Instructions: Keep her follow-up with dialysis tomorrow increase your hydralazine to 100 mg 3 times a day additionally increased a hydrochlorothiazide from 12.5 mg per day to 25 mg per day return if any problems. Is patient prescribed a controlled substance at d/c from ED?: No Referrals: Soren Desai MD [Primary Care Provider] - 1-2 days
[2018-06-24 15:34] LABS: Anisocytosis Slight; HCT 38.2 % (34.0-46.0); HGB 12.2 gm/dL (11.4-16.0); Hypochromasia Slight; MCH 30.3 pg (25.0-35.0); MCHC 31.9 g/dL (31.0-37.0); Macrocytosis Slight; Mean Platelet Volume 6.7; Platelet Count 211 k/uL (150-450); RBC 4.02 m/uL (3.80-5.40); RDW 18.8 % (11.5-15.5); WBC 5.4 k/uL (3.8-10.6)
--- NOTE | 2018-06-24 15:43 | XR ---
EXAMINATION TYPE: XR chest 2V DATE OF EXAM: 06/24/2018 COMPARISON: 04/04/2018 HISTORY: Shortness of breath TECHNIQUE: Frontal and lateral views of the chest are obtained. FINDINGS: Scattered senescent parenchymal changes noted. Hyperinflation compatible with COPD. No evidence for infiltrate. No evidence for atelectasis. Heart size is stable. Mediastinal structures are stable and grossly unremarkable. No evidence for hilar prominence. Degenerative changes dorsal spine. IMPRESSION: 1. No evidence for acute pulmonary disease.
[2018-06-24 15:44] LABS: Albumin 4.1 g/dL (3.5-5.0); Calcium 9.8 mg/dL (8.4-10.2); Magnesium 2.1 mg/dL (1.6-2.3); Potassium 3.8 mmol/L (3.5-5.1); Total Bilirubin 0.6 mg/dL (0.2-1.3); Total Protein 7.2 g/dL (6.3-8.2)
[2018-06-24] MEDS ORDERED: hydrALAZINE HCL 20 MG/ML 1 ML VIAL IVP STA ×3 (15:53→17:48)
[2018-06-24 15:56] LABS: Creatine Kinase MB 0.9 ng/mL (0.0-2.4)
[2018-06-24 16:05] LABS: Band Neutrophils % 3 %; Basophils # (M) 0.05 k/uL (0-0.2); Eosinophils # (M) 0.43 k/uL (0-0.7); Lymphocytes # (M) 0.92 k/uL (1.0-4.8); Monocytes # (M) 0.38 k/uL (0-1.0); Neutrophils % (M) 64 %; Nucleated Red Blood Cells 0 /100 WBC (0-0); Total Cells Counted 100
[2018-06-24 16:07] LABS: Poikilocytosis (M) Present; Polychromasia Present
[2018-06-24 16:30] VITALS: RESP 18
[2018-06-24] MEDS ORDERED: LORazepam 2 MG/ML INJ IV STA (17:48)
[2018-06-24 18:57] VITALS: BP 204/110; PULSE 102; TEMP 98.5
== END 2018-06-24 18:55 | disposition home or self-care (01) ==
LOC: EC 14:35
DX: I16.0 Hypertensive urgency (principal); I13.2 Hypertensive heart and chronic kidney disease with heart failure and with stage 5 chronic kidney disease, or end stage renal disease; N18.6 End stage renal disease; I50.9 Heart failure, unspecified; I48.91 Unspecified atrial fibrillation; J44.9 Chronic obstructive pulmonary disease, unspecified; Z86.73 Personal history of transient ischemic attack (TIA), and cerebral infarction without residual deficits; Z98.890 Other specified postprocedural states; Z99.2 Dependence on renal dialysis; Z87.891 Personal history of nicotine dependence; Z82.49 Family history of ischemic heart disease and other diseases of the circulatory system; Z79.51 Long term (current) use of inhaled steroids; Z79.899 Other long term (current) drug therapy
CPT/HCPCS: 99284; 96374; 96375; 96376 ×2; 96361 ×4; 36415; 93005; 85379; 80053; 82550; 82553; 83735; 85025; 86140; 71046; J2060; J0360

== ENCOUNTER 2018-07-05 03:48 | Emergency (ER) | payer MEDICARE, BC ==
[2018-07-05 04:09] VITALS: TEMP 97.9
[2018-07-05] MEDS ORDERED: IPRATROPIUM-ALBUTEROL 3 ML NEB INHALATION STA (04:19)
--- NOTE | 2018-07-05 04:19 | ED ---
SOB HPI - General Chief Complaint: Shortness of Breath Stated Complaint: SOB Time Seen by Provider: 07/05/18 04:08 Source: patient, EMS Mode of arrival: EMS - History of Present Illness Initial Comments: Darshan is a pleasant 72-year-old female with a history of COPD as well as end- stage renal disease for which she is on dialysis Thursday. Patient presents the emergency department today with a complaint of shortness of breath. Patient reports that she woke early this morning to get ready for her dialysis and felt that she couldn't catch her breath she felt that she was wheezing. She contacted EMS and was given a breathing treatment in route to the hospital. Patient reports that her shortness of breath is improved significantly with this breathing treatment she is feeling much better at the time of evaluation. Patient denies any chest pain, palpitations, diaphoresis or lightheadedness. She expresses significant anxiety that she may be late or missed her dialysis today. - Related Data Home Medications Medication Instructions Recorded Confirmed Sertraline HCl [Zoloft] 50 mg PO HS 04/30/17 06/24/18 Allopurinol [Zyloprim] 100 mg PO DAILY 09/09/17 06/24/18 Ipratropium-Albuterol Nebulize 3 ml INHALATION RT-QID 03/14/18 06/24/18 [Duoneb 0.5 mg-3 mg/3 ml Soln] Albuterol Inhaler [Ventolin Hfa 2 puff INHALATION RT-Q4H PRN 05/31/18 06/24/18 Inhaler] Amiodarone HCl [Pacerone] 200 mg PO DAILY 05/31/18 06/24/18 Atorvastatin [Lipitor] 20 mg PO DAILY 05/31/18 06/24/18 Budesonide-Formot 160-4.5 Mcg 2 puff INHALATION RT-BID 05/31/18 06/24/18 [Symbicort 160-4.5 Mcg Inhaler] Calcium Acetate [PhosLo] 667 mg PO AC-TID 05/31/18 06/24/18 Potassium Chloride [Klor-Con 20] 20 meq PO DAILY 05/31/18 06/24/18 Umeclidinium [place] [Incruse 1 puff INHALATION RT-DAILY 05/31/18 06/24/18 Ellipta] Zolpidem [Ambien] 5 mg PO HS 05/31/18 06/24/18 hydrALAZINE HCL [Apresoline] 50 mg PO TID 05/31/18 06/24/18 Furosemide [Lasix] 80 mg PO BID 06/24/18 06/24/18 Hydrochlorothiazide 12.5 mg PO DAILY 06/24/18 06/24/18 Previous Rx's Medication Instructions Recorded amLODIPine [Norvasc] 10 mg PO DAILY tab 07/16/17 Apixaban [Eliquis] 2.5 mg PO BID #60 tablet 02/06/18 Metoprolol Tartrate [Lopressor] 50 mg PO BID #60 tab 02/06/18 Midodrine [ProAmatine] 2.5 mg PO DAILY #30 tab 06/02/18 Allergies Allergy/AdvReac Type Severity Reaction Status Date / Time No Known Allergies Allergy Verified 06/24/18 17:08 Review of Systems ROS Statement: Those systems with pertinent positive or pertinent negative responses have been documented in the HPI. ROS Other: All systems not noted in ROS Statement are negative. Past Medical History Past Medical History: Atrial Fibrillation, Asthma, Heart Failure, COPD, CVA/TIA , Hypertension, Osteoarthritis (OA), Pneumonia, Renal Disease, Syncope Additional Past Medical History / Comment(s): CVA 2006 recent ARF had dialysis cath inserted 02-02-18 gets dialysis Thu-Thu-Thu. History of Any Multi-Drug Resistant Organisms: None Reported Past Surgical History: Tonsillectomy Additional Past Surgical History / Comment(s): ORIF rt ankle-[address], IUD removal, lumbar steroid injections, dental implants, cardioversion, dialysis cath. has ocl on l wrist, states fell 1 month ago and has a hairline fracture of wrist Past Anesthesia/Blood Transfusion Reactions: No Reported Reaction Additional Past Anesthesia/Blood Transfusion Reaction / Comment(s): Past blood transfusions - no reaction Past Psychological History: No Psychological Hx Reported Smoking Status: Former smoker - Past Family History Mother Additional Family Medical History / Comment(s): Mother in her 80s from abdominal aortic aneurysm. Father Family Medical History: Myocardial Infarction ([place]) Additional Family Medical History / Comment(s): Father at age 52 from acute [place]. General Exam - General Exam Comments Initial Comments: Physical Exam GENERAL: Chronically ill-appearing HENT: Normocephalic, Atraumatic. EYES: PERRL, EOMI PULMONARY: Expiratory wheeze more pronounced on the left than the right CARDIOVASCULAR: There is a regular rate and rhythm without any murmurs gallops or rubs. ABDOMEN: Soft and nontender with normal bowel sounds. SKIN: Skin is clear with no lesions or rashes and otherwise unremarkable. Dialysis catheter in place and right chest : Deferred NEUROLOGIC: Patient is alert and oriented x3. Moving all extremities spontaneously MUSCULOSKELETAL: Normal extremities with adequate strength and full range of motion. No lower extremity swelling or edema. No calf tenderness. PSYCHIATRIC: Normal psychiatric evaluation. Limitations: no limitations Course Vital Signs 07/05/18 07/05/18 07/05/18 03:52 04:05 04:49 Temperature 97.9 F Pulse Rate 68 68 Respiratory 16 Rate Blood Pressure 162/88 O2 Sat by Pulse 97 Oximetry 07/05/18 07/05/18 04:58 05:26 Temperature Pulse Rate 68 76 Respiratory 18 Rate Blood Pressure 173/87 O2 Sat by Pulse 98 Oximetry Medical Decision Making - Medical Decision Making Patient was seen and evaluated history is obtained from patient Patient reports she was wheezing and short of breath however improved after breathing treatment from EMS still has mild extremity wheezing Repeat breathing treatment and chest x-ray were ordered CXR with evidence of pleural effusion Patient feeling better after duoneb would like to attend dialysis patient contacted for ride to regularly scheduled dialysis Patient discharged home in stable condition. Will leave ER and go to dialysis. Disposition Clinical Impression: COPD (chronic obstructive pulmonary disease), Pleural effusion Disposition: HOME SELF-CARE Condition: Stable Instructions (If sedation given, give patient instructions): COPD (Chronic Obstructive Pulmonary Disease) (ED) Is patient prescribed a controlled substance at d/c from ED?: No Referrals: Soren Desai MD [Primary Care Provider] - 1-2 days
[2018-07-05] MEDS ORDERED: predniSONE 20 MG TAB PO STA (04:20)
--- NOTE | 2018-07-05 04:43 | XR ---
EXAM: XR Chest, 2 Views CLINICAL HISTORY: ITS.REASON XR Reason: SOB TECHNIQUE: Frontal and lateral views of the chest. COMPARISON: No relevant prior studies available. FINDINGS: Lungs: Unremarkable. No consolidation. Pleural space: Right pleural effusion. No pneumothorax. Heart: Unremarkable. No cardiomegaly. Mediastinum: Unremarkable. Bones/joints: No acute fracture. Tubes, lines and devices: Double-lumen catheter in the right atrium. IMPRESSION: Right pleural effusion.
[2018-07-05 05:39] VITALS: BP 173/87; PULSE 76; RESP 18
== END 2018-07-05 05:26 | disposition home or self-care (01) ==
LOC: EC 03:48
DX: J44.9 Chronic obstructive pulmonary disease, unspecified (principal); J90 Pleural effusion, not elsewhere classified; F41.9 Anxiety disorder, unspecified; I48.91 Unspecified atrial fibrillation; I13.2 Hypertensive heart and chronic kidney disease with heart failure and with stage 5 chronic kidney disease, or end stage renal disease; N18.6 End stage renal disease; I50.9 Heart failure, unspecified; Z99.2 Dependence on renal dialysis; M19.90 Unspecified osteoarthritis, unspecified site; Z86.73 Personal history of transient ischemic attack (TIA), and cerebral infarction without residual deficits; Z87.891 Personal history of nicotine dependence; Z79.51 Long term (current) use of inhaled steroids; Z79.899 Other long term (current) drug therapy
CPT/HCPCS: 94640; 71046; 99285; J7512

== ENCOUNTER 2018-07-08 01:14 | Inpatient (IN) | payer MEDICARE, BC ==
[2018-07-08] MEDS ORDERED: NITROGLYCERIN OINT 1 INCH/GM PACKET TOPICAL STA (01:43)
[2018-07-08] MEDS ORDERED: ALBUTEROL NEBULIZED 2.5 MG/3 ML INHALATION STA (01:44)
--- NOTE | 2018-07-08 01:46 | ED ---
SOB HPI - General Chief Complaint: Shortness of Breath Stated Complaint: Shortness of Breath Time Seen by Provider: 07/08/18 01:29 Source: patient, EMS Mode of arrival: EMS Limitations: no limitations - History of Present Illness Initial Comments: This patient is a 72-year-old woman who presents to be evaluated with complaint of shortness of breath. She states that it has been getting worse tonight since approximately 8 PM. She feels that her chest is tight. She denies fever or chills. She does have occasional cough but it is only productive of some clear white sputum. Patient relates that she has recently had diagnosed kidney failure and has been receiving dialysis. She did have a dialysis treatment yesterday. No fever or chills. No purulent sputum. No change in urination or bowel movements. No leg pain or swelling. MD Complaint: shortness of breath, cough Onset/Timin -: hour(s) Consistency: constant Improves With: nothing Worsens With: lying flat Known History Of: COPD, other (Kidney failure) Associated Symptoms: denies other symptoms - Related Data Home Medications Medication Instructions Recorded Confirmed Sertraline HCl [Zoloft] 50 mg PO HS 04/30/17 07/08/18 Ipratropium-Albuterol Nebulize 3 ml INHALATION DAILY 03/14/18 07/08/18 [Duoneb 0.5 mg-3 mg/3 ml Soln] Albuterol Inhaler [Ventolin Hfa 2 puff INHALATION Q6H PRN 05/31/18 07/08/18 Inhaler] Amiodarone HCl [Pacerone] 100 mg PO DAILY 05/31/18 07/08/18 Atorvastatin [Lipitor] 20 mg PO DAILY 05/31/18 07/08/18 Budesonide-Formot 160-4.5 Mcg 2 puff INHALATION RT-BID PRN 05/31/18 07/08/18 [Symbicort 160-4.5 Mcg Inhaler] Calcium Acetate [PhosLo] 667 mg PO AC-TID 05/31/18 07/08/18 Potassium Chloride [Klor-Con 20] 20 meq PO DAILY 05/31/18 07/08/18 Zolpidem [Ambien] 5 mg PO HS 05/31/18 07/08/18 hydrALAZINE HCL [Apresoline] 50 mg PO TID 05/31/18 07/08/18 Furosemide [Lasix] 80 mg PO DAILY 06/24/18 07/08/18 Metoprolol Tartrate [Lopressor] 50 mg PO BID 07/08/18 07/08/18 Previous Rx's Medication Instructions Recorded amLODIPine [Norvasc] 10 mg PO DAILY tab 07/16/17 Apixaban [Eliquis] 2.5 mg PO BID #60 tablet 02/06/18 Metoprolol Tartrate [Lopressor] 50 mg PO BID #60 tab 02/06/18 Allergies Allergy/AdvReac Type Severity Reaction Status Date / Time No Known Allergies Allergy Verified 07/08/18 01:22 Review of Systems ROS Statement: Those systems with pertinent positive or pertinent negative responses have been documented in the HPI. ROS Other: All systems not noted in ROS Statement are negative. Constitutional: Denies: fever, chills, weakness Respiratory: Reports: cough, dyspnea. Denies: wheezes, hemoptysis, stridor Cardiovascular: Reports: orthopnea. Denies: chest pain, palpitations, dyspnea on exertion, edema, syncope Gastrointestinal: Denies: abdominal pain, vomiting, diarrhea Genitourinary: Denies: dysuria, hematuria Musculoskeletal: Denies: back pain Skin: Denies: rash Neurological: Denies: headache, weakness, numbness Past Medical History Past Medical History: Atrial Fibrillation, Asthma, Heart Failure, COPD, CVA/TIA , Hypertension, Osteoarthritis (OA), Pneumonia, Renal Disease, Syncope Additional Past Medical History / Comment(s): CVA 2005 recent ARF had dialysis cath inserted 02-02-18 gets dialysis Thu-Thu-Thu. History of Any Multi-Drug Resistant Organisms: None Reported Past Surgical History: Tonsillectomy Additional Past Surgical History / Comment(s): ORIF rt ankle-[address], IUD removal, lumbar steroid injections, dental implants, cardioversion, dialysis cath. has ocl on l wrist, states fell 1 month ago and has a hairline fracture of wrist Past Anesthesia/Blood Transfusion Reactions: No Reported Reaction Additional Past Anesthesia/Blood Transfusion Reaction / Comment(s): Past blood transfusions - no reaction Past Psychological History: No Psychological Hx Reported Smoking Status: Former smoker Past Alcohol Use History: Heavy Past Drug Use History: None Reported - Past Family History Mother Family Medical History: No Reported History Additional Family Medical History / Comment(s): Mother in her 80s from abdominal aortic aneurysm. Father Family Medical History: Myocardial Infarction ([place]) Additional Family Medical History / Comment(s): Father at age 52 from acute [place]. General Exam Limitations: no limitations General appearance: alert, in distress (Mild respiratory distress) Head exam: Present: atraumatic, normocephalic Eye exam: Present: normal appearance. Absent: scleral icterus, conjunctival injection ENT exam: Present: normal oropharynx Neck exam: Present: normal inspection Respiratory exam: Present: respiratory distress, rales. Absent: wheezes, rhonchi, stridor, chest wall tenderness, accessory muscle use Cardiovascular Exam: Present: regular rate, normal rhythm, normal heart sounds. Absent: systolic murmur, diastolic murmur, rubs, gallop GI/Abdominal exam: Present: soft. Absent: distended, tenderness, guarding, rebound, mass Extremities exam: Present: normal inspection, normal capillary refill. Absent: pedal edema, calf tenderness Back exam: Present: normal inspection Neurological exam: Present: alert Skin exam: Present: warm, dry, intact, normal color. Absent: rash Course Vital Signs 07/08/18 07/08/18 07/08/18 01:16 01:19 01:40 Temperature 97.9 F Pulse Rate 78 79 Respiratory 22 25 H Rate Blood Pressure 170/77 170/76 O2 Sat by Pulse 92 L 93 L 95 Oximetry 07/08/18 07/08/18 07/08/18 02:04 02:12 03:20 Temperature Pulse Rate 76 76 79 Respiratory 18 20 13 Rate Blood Pressure 187/94 O2 Sat by Pulse 97 Oximetry 07/08/18 07/08/18 07/08/18 03:30 03:50 04:38 Temperature 98.0 F Pulse Rate 78 76 Respiratory 24 31 H Rate Blood Pressure 174/85 171/83 O2 Sat by Pulse Oximetry Medical Decision Making - Medical Decision Making This patient is 72-year-old woman with chronic renal failure. Patient has dyspnea due to fluid overload/CHF. Treatment is started with nitrates and diuretics. Patient be admitted with nephrology consultation. Patient also found to have minimally elevated troponin suspected due to renal disease. - Lab Data Result diagrams: 07/08/18 01:32 07/08/18 01:32 Lab Results 02/07/08/18 07/08/18 Range/Units 01:32 01:32 01:32 WBC 10.6 (3.8-10.6) k/uL RBC 3.47 L (3.80-5.40) m/uL Hgb 11.0 L (11.4-16.0) gm/dL Hct 35.0 (34.0-46.0) % MCV 100.8 H D (80.0-100.0) fL MCH 31.8 (25.0-35.0) pg MCHC 31.5 (31.0-37.0) g/dL RDW 18.6 H (11.5-15.5) % Plt Count 230 (150-450) k/uL Neutrophils % 89 % Lymphocytes % 3 % Monocytes % 5 % Eosinophils % 1 % Basophils % 0 % Neutrophils # 9.4 H (1.3-7.7) k/uL Lymphocytes # 0.3 L (1.0-4.8) k/uL Monocytes # 0.5 (0-1.0) k/uL Eosinophils # 0.1 (0-0.7) k/uL Basophils # 0.1 (0-0.2) k/uL Hypochromasia Slight Anisocytosis Slight Macrocytosis Moderate PT (9.0-12.0) sec INR (<1.2) APTT (22.0-30.0) sec Sodium 133 L (137-145) mmol/L Potassium 3.8 (3.5-5.1) mmol/L Chloride 93 L (98-107) mmol/L Carbon Dioxide 27 (22-30) mmol/L Anion Gap 13 mmol/L BUN 26 H (7-17) mg/dL Creatinine 2.25 H (0.52-1.04) mg/dL Est GFR (CKD-EPI)AfAm 25 (>60 ml/min/1.73 sqM) Est GFR (CKD-EPI)NonAf 21 (>60 ml/min/1.73 sqM) Glucose 115 H (74-99) mg/dL Calcium 9.3 (8.4-10.2) mg/dL Total Bilirubin 0.8 (0.2-1.3) mg/dL AST 26 (14-36) U/L ALT 27 (9-52) U/L Alkaline Phosphatase 121 (38-126) U/L Total Creatine Kinase 33 (30-135) U/L CK-MB (CK-2) 1.1 (0.0-2.4) ng/mL CK-MB (CK-2) Rel Index 3.3 Troponin I 0.043 H* (0.000-0.034) ng/mL NT-Pro-B Natriuret Pep pg/mL Total Protein 7.1 (6.3-8.2) g/dL Albumin 4.1 (3.5-5.0) g/dL 07/08/18 07/08/18 Range/Units 01:32 01:32 WBC (3.8-10.6) k/uL RBC (3.80-5.40) m/uL Hgb (11.4-16.0) gm/dL Hct (34.0-46.0) % MCV (80.0-100.0) fL MCH (25.0-35.0) pg MCHC (31.0-37.0) g/dL RDW (11.5-15.5) % Plt Count (150-450) k/uL Neutrophils % % Lymphocytes % % Monocytes % % Eosinophils % % Basophils % % Neutrophils # (1.3-7.7) k/uL Lymphocytes # (1.0-4.8) k/uL Monocytes # (0-1.0) k/uL Eosinophils # (0-0.7) k/uL Basophils # (0-0.2) k/uL Hypochromasia Anisocytosis Macrocytosis PT 10.1 (9.0-12.0) sec INR 0.9 (<1.2) APTT 23.5 (22.0-30.0) sec Sodium (137-145) mmol/L Potassium (3.5-5.1) mmol/L Chloride (98-107) mmol/L Carbon Dioxide (22-30) mmol/L Anion Gap mmol/L BUN (7-17) mg/dL Creatinine (0.52-1.04) mg/dL Est GFR (CKD-EPI)AfAm (>60 ml/min/1.73 sqM) Est GFR (CKD-EPI)NonAf (>60 ml/min/1.73 sqM) Glucose (74-99) mg/dL Calcium (8.4-10.2) mg/dL Total Bilirubin (0.2-1.3) mg/dL AST (14-36) U/L ALT (9-52) U/L Alkaline Phosphatase (38-126) U/L Total Creatine Kinase (30-135) U/L CK-MB (CK-2) (0.0-2.4) ng/mL CK-MB (CK-2) Rel Index Troponin I (0.000-0.034) ng/mL NT-Pro-B Natriuret Pep 20128 pg/mL Total Protein (6.3-8.2) g/dL Albumin (3.5-5.0) g/dL - EKG Data -: EKG Interpreted by Me EKG shows normal: sinus rhythm, axis (Normal), intervals (Normal) Rate: normal (Rate 77 bpm) Interpretation: [facility] Critical Care Time Critical Care Time: Yes (35 minutes) Disposition Clinical Impression: Chronic renal failure, CHF (congestive heart failure) Disposition: ADMITTED IP TO THIS HOSP Condition: Fair
[2018-07-08 01:53] LABS: Anisocytosis Slight; Basophils # (A) 0.1 k/uL (0-0.2); Basophils % (A) 0 %; Eosinophils # (A) 0.1 k/uL (0-0.7); Eosinophils % (A) 1 %; Hypochromasia Slight; Lymphocytes # (A) 0.3 k/uL (1.0-4.8); Lymphocytes % (A) 3 %; MCH 31.8 pg (25.0-35.0); MCHC 31.5 g/dL (31.0-37.0); Macrocytosis Moderate; Monocytes # (A) 0.5 k/uL (0-1.0); Monocytes % (A) 5 %; Neutrophils # (A) 9.4 k/uL (1.3-7.7); Neutrophils % (A) 89 %; Platelet Count 230 k/uL (150-450); RBC 3.47 m/uL (3.80-5.40); RDW 18.6 % (11.5-15.5); WBC 10.6 k/uL (3.8-10.6)
[2018-07-08 01:56] LABS: MCV 100.8 fL (80.0-100.0)
[2018-07-08 02:02] LABS: Albumin 4.1 g/dL (3.5-5.0); Calcium 9.3 mg/dL (8.4-10.2); Potassium 3.8 mmol/L (3.5-5.1); Total Bilirubin 0.8 mg/dL (0.2-1.3); Total Protein 7.1 g/dL (6.3-8.2)
[2018-07-08 02:04] LABS: INR 0.9 (<1.2); Partial Thromboplastin Time 23.5 sec (22.0-30.0); Prothrombin Time 10.1 sec (9.0-12.0)
[2018-07-08 02:18] LABS: Creatine Kinase MB 1.1 ng/mL (0.0-2.4)
--- NOTE | 2018-07-08 02:20 | XR ---
EXAM: XR Chest, 2 Views CLINICAL HISTORY: ITS.REASON XR Reason: difficulty breathing TECHNIQUE: Frontal and lateral views of the chest. COMPARISON: 07/05/18 chest x-ray IMPRESSION: Persistent right lower lobe opacity and vascular congestion. Unchanged heart size. Trace bilateral pleural effusions.
[2018-07-08 02:24] LABS: Troponin I 0.043 ng/mL (0.000-0.034)
[2018-07-08] MEDS ORDERED: FUROSEMIDE 10 MG/ML 4 ML VIAL IV STA ×2 (03:09)
[2018-07-08] MEDS: SYMBICORT 160-4.5 MCG INHALER INHALATION PRN ×2 (07:15→19:25)
[2018-07-08] MEDS: FUROSEMIDE 40 MG TAB PO SCH (09:07)
[2018-07-08] MEDS: POTASSIUM CHLORIDE ER 20 MEQ TAB.ER PO SCH (09:07)
[2018-07-08] MEDS: AMIODARONE 100 MG TAB PO SCH (09:07)
[2018-07-08] MEDS: ATORVASTATIN 20 MG TAB PO SCH (09:07)
[2018-07-08] MEDS: APIXABAN 2.5 MG TABLET PO SCH ×2 (09:08→21:06)
[2018-07-08] MEDS: METOPROLOL TARTRATE 50 MG TAB PO SCH ×2 (09:08→21:05)
[2018-07-08] MEDS: CALCIUM ACETATE 667 MG CAP PO SCH ×3 (09:08→16:54)
[2018-07-08] MEDS: hydrALAZINE HCL 50 MG TAB PO SCH ×3 (09:08→22:44)
[2018-07-08] MEDS: amLODIPine 10 MG TAB PO SCH (09:08)
[2018-07-08] MEDS: IPRATROPIUM-ALBUTEROL 3 ML NEB INHALATION SCH (10:51)
[2018-07-08] MEDS: ALBUTEROL NEBULIZED 2.5 MG/3 ML INHALATION PRN ×2 (14:46→19:25)
[2018-07-08] MEDS: ZOLPIDEM 5 MG TAB PO SCH (21:05)
[2018-07-08] MEDS: SERTRALINE 50 MG TAB PO SCH (21:05)
--- NOTE | 2018-07-08 22:12 | P.HPIM ---
History of Present Illness H&P Date: 07/08/18 Chief Complaint: Shortness of breath Patient is a 72-year-old female with a known history of ESRD on hemodialysis for the past 2 months Atrial fibrillation, asthma/COPD, congestive heart failure History of CVA/TIA, hypertension and osteoarthritis and other multiple medical problems came to the hospital with complaints of shortness of breath. Patient did have last hemodialysis yesterday and patient became short of breath last night approximately around 8 PM. She pressure-like chest tightness. Patient also has cough whitish sputum production. No fever no chills. No nausea vomiting or abdominal pain. Patient did have complete hemodialysis yesterday. Blood pressure was 170/103 on admission. Chest x-ray showed persistent right lower lobe opacity and vascular congestion. On change heart size. Trace bilateral pleural effusions. EKG showed normal sinus rhythm BNP 56 700 Troponin 0.043 and 0.046 and 0.046 Review of Systems Constitutional: Patient denies any fever or chills . No generalized weakness or weight loss. Abdomen: Patient denied nausea vomiting and diarrhea and abdominal pain. Cardiovascular: Patient does have shortness of breath and chest tightness. No leg swelling. No palpitations.. Respiratory: patient denied any cough is from production. No shortness of breath Neurologic: Patient denied any numbness or tingling headache. Musculoskeletal: Patient denies any complaints of joint swelling or deformity. Skin: Negative Psychiatric: Negative Endocrine: No heat or cold intolerance. No recent weight gain. Genitourinary: No dysuria or hematuria. All other 14 point ROS negative except the above Past Medical History Past Medical History: Atrial Fibrillation, Asthma, Heart Failure, COPD, CVA/TIA , Hypertension, Osteoarthritis (OA), Pneumonia, Renal Disease, Syncope Additional Past Medical History / Comment(s): CVA 2006 recent ARF had dialysis cath inserted 02-02-18 gets dialysis Thu-Thu-Thu. History of Any Multi-Drug Resistant Organisms: None Reported Past Surgical History: Tonsillectomy Additional Past Surgical History / Comment(s): ORIF rt ankle-[address], IUD removal, lumbar steroid injections, dental implants, cardioversion, dialysis cath. has ocl on l wrist, states fell 1 month ago and has a hairline fracture of wrist Past Anesthesia/Blood Transfusion Reactions: No Reported Reaction Additional Past Anesthesia/Blood Transfusion Reaction / Comment(s): Past blood transfusions - no reaction Past Psychological History: No Psychological Hx Reported Smoking Status: Former smoker Past Alcohol Use History: Heavy Past Drug Use History: None Reported - Past Family History Mother Family Medical History: No Reported History Additional Family Medical History / Comment(s): Mother in her 80s from abdominal aortic aneurysm. Father Family Medical History: Myocardial Infarction ([place]) Additional Family Medical History / Comment(s): Father at age 52 from acute [place]. Medications and Allergies Home Medications Medication Instructions Recorded Confirmed Type Sertraline HCl [Zoloft] 50 mg PO HS 04/30/17 07/08/18 History amLODIPine [Norvasc] 10 mg PO DAILY tab 07/16/17 07/08/18 Rx Apixaban [Eliquis] 2.5 mg PO BID #60 tablet 02/06/18 07/08/18 Rx Ipratropium-Albuterol Nebulize 3 ml INHALATION RT-DAILY 03/14/18 07/08/18 History [Duoneb 0.5 mg-3 mg/3 ml Soln] Albuterol Inhaler [Ventolin Hfa 2 puff INHALATION RT-Q4H PRN 05/31/18 07/08/18 History Inhaler] Amiodarone HCl [Pacerone] 200 mg PO DAILY 05/31/18 07/08/18 History Budesonide-Formot 160-4.5 Mcg 2 puff INHALATION RT-BID PRN 05/31/18 07/08/18 History [Symbicort 160-4.5 Mcg Inhaler] Calcium Acetate [PhosLo] 667 mg PO AC-TID 05/31/18 07/08/18 History Zolpidem [Ambien] 5 mg PO HS 05/31/18 07/08/18 History hydrALAZINE HCL [Apresoline] 50 mg PO BID 05/31/18 07/08/18 History Furosemide [Lasix] 80 mg PO BID 06/24/18 07/08/18 History Metoprolol Tartrate [Lopressor] 25 mg PO BID 07/08/18 07/08/18 History Allergies Allergy/AdvReac Type Severity Reaction Status Date / Time No Known Allergies Allergy Verified 07/08/18 01:22 Physical Exam Vitals: Vital Signs Temp Pulse Pulse Resp BP BP Pulse Ox 07/08/18 14:48 76 07/08/18 11:08 80 07/08/18 10:53 80 07/08/18 07:44 98.2 F 78 16 177/94 97 07/08/18 05:44 98.3 F 77 20 176/86 94 L 07/08/18 05:32 22 07/08/18 04:38 98.0 F 07/08/18 03:50 76 31 H 171/83 07/08/18 03:30 78 24 174/85 07/08/18 03:20 79 13 187/94 97 07/08/18 02:12 76 20 07/08/18 02:04 76 18 07/08/18 01:40 79 25 H 170/76 95 07/08/18 01:19 97.9 F 78 22 170/77 93 L 07/08/18 01:16 92 L Intake and Output 07/08/18 07/08/18 07/08/18 06:59 14:59 22:59 Other: Voiding Method Toilet Toilet # Voids 1 3 Weight 54.431 kg 54.431 kg PHYSICAL EXAMINATION: Patient is lying in the bed comfortably, no acute distress, awake alert and oriented.. HEENT: Normocephalic. Neck is supple. Pupils reactive. Nostrils clear. Oral cavity is moist. Ears reveal no drainage. Neck reveals no JVD, carotid bruits, or thyromegaly. CHEST EXAMINATION: Trachea is central. Symmetrical expansion. Bibasilar crackles positive Lung caceres clear to auscultation and percussion. CARDIAC: Normal S1, S2 with no gallops. No murmurs ABDOMEN: Soft. Bowel sounds normal. No organomegaly. No abdominal bruits. Extremities: Trace edema. No clubbing or cyanosis Neurologically awake, alert, oriented x3 with well-coordinated movements. No focal deficits noted Skin: No rash or skin lesions. Psychiatric: Coperative. Nonsuicidal Musculoskeletal: No joint swelling or deformity. Normal range of motion. Results CBC & Chem 7: 07/08/18 01:32 07/08/18 01:32 Labs: Abnormal Lab Results - Last 24 Hours (Table) 07/08/18 07/08/18 07/08/18 Range/Units 01:32 01:32 01:32 RBC 3.47 L (3.80-5.40) m/uL Hgb 11.0 L (11.4-16.0) gm/dL MCV 100.8 H D (80.0-100.0) fL RDW 18.6 H (11.5-15.5) % Neutrophils # 9.4 H (1.3-7.7) k/uL Lymphocytes # 0.3 L (1.0-4.8) k/uL Sodium 133 L (137-145) mmol/L Chloride 93 L (98-107) mmol/L BUN 26 H (7-17) mg/dL Creatinine 2.25 H (0.52-1.04) mg/dL Glucose 115 H (74-99) mg/dL Troponin I 0.043 H* (0.000-0.034) ng/mL 07/08/18 Range/Units 09:52 RBC (3.80-5.40) m/uL Hgb (11.4-16.0) gm/dL MCV (80.0-100.0) fL RDW (11.5-15.5) % Neutrophils # (1.3-7.7) k/uL Lymphocytes # (1.0-4.8) k/uL Sodium (137-145) mmol/L Chloride (98-107) mmol/L BUN (7-17) mg/dL Creatinine (0.52-1.04) mg/dL Glucose (74-99) mg/dL Troponin I 0.046 H* (0.000-0.034) ng/mL Thrombosis Risk Factor Assmnt - DVT/VTE Prophylaxis DVT/VTE Prophylaxis: Pharmacologic Prophylaxis ordered - Choose All That Apply Any of the Below Risk Factors Present?: Yes Each Factor Represents 1 point: Abnormal pulmonary function (COPD) Other Risk Factors: Yes Each Risk Factor Represents 2 Points: Age 61-74 years Each Risk Factor Represents 5 Points: Stroke (< 1 month) Thrombosis Risk Factor Assessment Total Risk Factor Score: 8 Thrombosis Risk Factor Assessment Level: High Risk Assessment and Plan Assessment: Acute on chronic CHF likely diastolic dysfunction. Likely due to fluid overload Uncontrolled hypertension Shortness of breath secondary to above ESRD on hemodialysis via permacath Thursday Paroxysmal Atrial fibrillation. With history of cardioversion. On anticoagulation with Eliquis Asthma/COPD History of CVA/TIA Osteoarthritis Previous history of smoking History of heavy alcohol use Plan: Patient will be continued on Lasix, hydralazine and metoprolol. Continue with amiodarone and also anticoagulation. Patient is getting hemodialysis today. Nephrology be consulted. Continue the home medications and follow closely. Further recommendations based on the clinical course. prognosis is guarded. Time with Patient: Greater than 30
--- NOTE | 2018-07-08 22:33 | P.GSCN ---
History of Present Illness Consult date: 07/08/18 Reason for Consult: Renal failure History of present illness: Patient was scheduled for elective peritoneal dialysis catheter insertion today. Unfortunately yesterday the patient began experiencing increased shortness of breath. No pain. Came to the hospital for those reasons. Surgery was canceled for now. Review of Systems The patient denies any acute changes in his vision or hearing, no dysphagia or odynophagia, no chest pain, no dysuria or hematuria, no headache, no runny nose , no rectal bleeding or melena, no unexplained weight loss Past Medical History Past Medical History: Atrial Fibrillation, Asthma, Heart Failure, COPD, CVA/TIA , Hypertension, Osteoarthritis (OA), Pneumonia, Renal Disease, Syncope Additional Past Medical History / Comment(s): CVA 2005 recent ARF had dialysis cath inserted 02-02-18 gets dialysis Thu-Thu-Thu. History of Any Multi-Drug Resistant Organisms: None Reported Past Surgical History: Tonsillectomy Additional Past Surgical History / Comment(s): ORIF rt ankle-[address], IUD removal, lumbar steroid injections, dental implants, cardioversion, dialysis cath. has ocl on l wrist, states fell 1 month ago and has a hairline fracture of wrist Past Anesthesia/Blood Transfusion Reactions: No Reported Reaction Additional Past Anesthesia/Blood Transfusion Reaction / Comm: Past blood transfusions - no reaction Past Psychological History: No Psychological Hx Reported Smoking Status: Former smoker Past Alcohol Use History: Heavy Past Drug Use History: None Reported - Past Family History Mother Family Medical History: No Reported History Additional Family Medical History / Comment(s): Mother in her 80s from abdominal aortic aneurysm. Father Family Medical History: Myocardial Infarction ([place]) Additional Family Medical History / Comment(s): Father at age 52 from acute [place]. Medications and Allergies Home Medications Medication Instructions Recorded Confirmed Type Sertraline HCl [Zoloft] 50 mg PO HS 04/30/17 07/08/18 History amLODIPine [Norvasc] 10 mg PO DAILY tab 07/16/17 07/08/18 Rx Apixaban [Eliquis] 2.5 mg PO BID #60 tablet 02/06/18 07/08/18 Rx Ipratropium-Albuterol Nebulize 3 ml INHALATION RT-DAILY 03/14/18 07/08/18 History [Duoneb 0.5 mg-3 mg/3 ml Soln] Albuterol Inhaler [Ventolin Hfa 2 puff INHALATION RT-Q4H PRN 05/31/18 07/08/18 History Inhaler] Amiodarone HCl [Pacerone] 200 mg PO DAILY 05/31/18 07/08/18 History Budesonide-Formot 160-4.5 Mcg 2 puff INHALATION RT-BID PRN 05/31/18 07/08/18 History [Symbicort 160-4.5 Mcg Inhaler] Calcium Acetate [PhosLo] 667 mg PO AC-TID 05/31/18 07/08/18 History Zolpidem [Ambien] 5 mg PO HS 05/31/18 07/08/18 History hydrALAZINE HCL [Apresoline] 50 mg PO BID 05/31/18 07/08/18 History Furosemide [Lasix] 80 mg PO BID 06/24/18 07/08/18 History Metoprolol Tartrate [Lopressor] 25 mg PO BID 07/08/18 07/08/18 History Allergies Allergy/AdvReac Type Severity Reaction Status Date / Time No Known Allergies Allergy Verified 07/08/18 01:22 Surgical - Exam Vital Signs Pulse Ox 92 L 07/08/18 01:16 Physical exam: General: Well-developed, well-nourished HEENT: Normocephalic, sclerae nonicteric Abdomen: Nontender, nondistended Extremities: No edema Neuro: Alert and oriented Results - Labs 07/08/18 01:32 07/08/18 01:32 Abnormal Lab Results - Last 24 Hours (Table) 07/08/18 07/08/18 07/08/18 Range/Units 01:32 01:32 01:32 RBC 3.47 L (3.80-5.40) m/uL Hgb 11.0 L (11.4-16.0) gm/dL MCV 100.8 H D (80.0-100.0) fL RDW 18.6 H (11.5-15.5) % Neutrophils # 9.4 H (1.3-7.7) k/uL Lymphocytes # 0.3 L (1.0-4.8) k/uL Sodium 133 L (137-145) mmol/L Chloride 93 L (98-107) mmol/L BUN 26 H (7-17) mg/dL Creatinine 2.25 H (0.52-1.04) mg/dL Glucose 115 H (74-99) mg/dL Troponin I 0.043 H* (0.000-0.034) ng/mL 07/08/18 07/08/18 Range/Units 09:52 13:55 RBC (3.80-5.40) m/uL Hgb (11.4-16.0) gm/dL MCV (80.0-100.0) fL RDW (11.5-15.5) % Neutrophils # (1.3-7.7) k/uL Lymphocytes # (1.0-4.8) k/uL Sodium (137-145) mmol/L Chloride (98-107) mmol/L BUN (7-17) mg/dL Creatinine (0.52-1.04) mg/dL Glucose (74-99) mg/dL Troponin I 0.046 H* 0.046 H* (0.000-0.034) ng/mL Diabetes panel 07/08/18 Range/Units 01:32 Sodium 133 L (137-145) mmol/L Potassium 3.8 (3.5-5.1) mmol/L Chloride 93 L (98-107) mmol/L Carbon Dioxide 27 (22-30) mmol/L BUN 26 H (7-17) mg/dL Creatinine 2.25 H (0.52-1.04) mg/dL Glucose 115 H (74-99) mg/dL Calcium 9.3 (8.4-10.2) mg/dL AST 26 (14-36) U/L ALT 27 (9-52) U/L Alkaline Phosphatase 121 (38-126) U/L Total Protein 7.1 (6.3-8.2) g/dL Albumin 4.1 (3.5-5.0) g/dL Calcium panel 07/08/18 Range/Units 01:32 Calcium 9.3 (8.4-10.2) mg/dL Albumin 4.1 (3.5-5.0) g/dL Pituitary panel 07/08/18 Range/Units 01:32 Sodium 133 L (137-145) mmol/L Potassium 3.8 (3.5-5.1) mmol/L Chloride 93 L (98-107) mmol/L Carbon Dioxide 27 (22-30) mmol/L BUN 26 H (7-17) mg/dL Creatinine 2.25 H (0.52-1.04) mg/dL Glucose 115 H (74-99) mg/dL Calcium 9.3 (8.4-10.2) mg/dL Adrenal panel 07/08/18 Range/Units 01:32 Sodium 133 L (137-145) mmol/L Potassium 3.8 (3.5-5.1) mmol/L Chloride 93 L (98-107) mmol/L Carbon Dioxide 27 (22-30) mmol/L BUN 26 H (7-17) mg/dL Creatinine 2.25 H (0.52-1.04) mg/dL Glucose 115 H (74-99) mg/dL Calcium 9.3 (8.4-10.2) mg/dL Total Bilirubin 0.8 (0.2-1.3) mg/dL AST 26 (14-36) U/L ALT 27 (9-52) U/L Alkaline Phosphatase 121 (38-126) U/L Total Protein 7.1 (6.3-8.2) g/dL Albumin 4.1 (3.5-5.0) g/dL Assessment and Plan (1) CHF (congestive heart failure) Narrative/Plan: Continue diuresis and dialysis. We'll reschedule PD catheter insertion. Patient will contact my office post discharge. Current Visit: Yes Status: Acute Code(s): I50.9 - HEART FAILURE, UNSPECIFIED SNOMED Code(s): 85499155
--- NOTE | 2018-07-08 23:21 | CONS ---
CONSULTATION REASON FOR CONSULT: End-stage renal disease. HISTORY OF PRESENT ILLNESS: Patient is a 72-year-old female who was admitted to the hospital with complaints of shortness of breath which started mainly yesterday. The patient denies any fevers or chills. She did not miss her dialysis. She is normally maintained on a Thursday, Thursday, Thursday schedule out of [facility]. PAST MEDICAL HISTORY: Significant for atrial fibrillation, asthma, history of COPD, CVA, TIA, hypertension, osteoarthritis, syncope. PAST SURGICAL HISTORY: Tonsillectomy, ORIF in the ankle, PermCath placement. SOCIAL HISTORY: The patient is a former smoker. No history of drug abuse or alcohol abuse. MEDICATIONS: Medications at home prior to admission included hydralazine, Norvasc, Ambien, Zoloft, Lopressor, Lasix, PhosLo, Eliquis, Pacerone. PHYSICAL EXAMINATION: Patient is currently comfortable, mildly short of breath, not in any acute distress. Blood pressure was 177/94, heart rate 78 per minute. She is afebrile. Examination of the heart S1, S2. Examination lungs bilateral breath sounds are heard. Abdomen is soft, nontender. Examination of lower extremities shows no significant edema. [employer] exam is grossly intact. LAB: Show sodium 133, potassium 3.8, hemoglobin 11.0 g/dL. ASSESSMENT: 1. End-stage renal disease on hemodialysis on a Thursday, Thursday, Thursday schedule. 2. Fluid overload. Expect improvement with dialysis today. Patient will be dialyzed today as well as in a.m. 3. Hypertension, partly volume sensitive. 4. Chronic kidney disease mineral bone disorder, maintained on PhosLo. PLAN: Continue with the Lasix. I will dialyze the patient today as well as in a.m. Continue with the potassium supplementation as well. MMODL / IJN: [id number] /
[2018-07-09] MEDS: IPRATROPIUM-ALBUTEROL 3 ML NEB INHALATION SCH (08:01)
[2018-07-09] MEDS: SYMBICORT 160-4.5 MCG INHALER INHALATION PRN ×2 (08:01→20:08)
[2018-07-09] MEDS: METOPROLOL TARTRATE 50 MG TAB PO SCH ×2 (08:34→22:49)
[2018-07-09] MEDS: hydrALAZINE HCL 50 MG TAB PO SCH ×3 (08:34→22:49)
[2018-07-09] MEDS: POTASSIUM CHLORIDE ER 20 MEQ TAB.ER PO SCH (08:34)
[2018-07-09] MEDS: FUROSEMIDE 40 MG TAB PO SCH (08:34)
[2018-07-09] MEDS: CALCIUM ACETATE 667 MG CAP PO SCH ×3 (08:35→16:58)
[2018-07-09] MEDS: AMIODARONE 100 MG TAB PO SCH (08:35)
[2018-07-09] MEDS: ATORVASTATIN 20 MG TAB PO SCH (08:35)
[2018-07-09] MEDS: APIXABAN 2.5 MG TABLET PO SCH ×2 (08:35→22:49)
[2018-07-09] MEDS: amLODIPine 10 MG TAB PO SCH (08:35)
[2018-07-09 09:18] LABS: Anisocytosis Slight; Basophils % (A) 1 %; Eosinophils # (A) 0.1 k/uL (0-0.7); Eosinophils % (A) 1 %; HCT 34.8 % (34.0-46.0); HGB 10.8 gm/dL (11.4-16.0); Hypochromasia Moderate; Lymphocytes # (A) 0.3 k/uL (1.0-4.8); Lymphocytes % (A) 3 %; MCH 31.2 pg (25.0-35.0); MCV 100.7 fL (80.0-100.0); Macrocytosis Slight; Mean Platelet Volume 6.5; Monocytes # (A) 0.5 k/uL (0-1.0); Monocytes % (A) 6 %; Neutrophils # (A) 6.9 k/uL (1.3-7.7); Neutrophils % (A) 87 %; Platelet Count 229 k/uL (150-450); RBC 3.45 m/uL (3.80-5.40); RDW 17.8 % (11.5-15.5); WBC 7.9 k/uL (3.8-10.6)
[2018-07-09 09:32] LABS: Calcium 9.6 mg/dL (8.4-10.2)
[2018-07-09] MEDS: ALBUTEROL NEBULIZED 2.5 MG/3 ML INHALATION PRN ×2 (13:06→20:08)
--- NOTE | 2018-07-09 19:04 | PN ---
PROGRESS NOTE Patient is seen for followup for end-stage renal disease. She was admitted with volume overload. Patient is normally maintained on a Thursday, Thursday, Thursday schedule at [facility]. She will be dialyzed today and she will have another extra treatment tomorrow. Volume status has improved. The patient's breathing is also better. The patient's respiratory status is also better. PHYSICAL EXAMINATION: Blood pressure this morning was 165/85, heart rate 79 per minute. She is afebrile. Examination of the heart S1, S2. Examination of the lungs, decreased breath sounds at bases. There are basal crackles heard. Examination of the abdomen reveals it to be soft, nontender. Examination of lower extremities shows no evidence of edema. LAB: Show sodium of 133, potassium 4.0, hemoglobin 10.8. ASSESSMENT: 1. End-stage renal disease, on hemodialysis on a Thursday, Thursday, Thursday schedule. The patient will have an extra treatment tomorrow. She was also dialyzed yesterday. Hopefully she can be discharged tomorrow after dialysis. 2. Volume overload, currently improved. 3. Acute hypoxic respiratory failure secondary to congestive heart failure and volume overload, now improving. 4. Chronic kidney disease mineral bone disorder. 5. History of atrial fibrillation with controlled ventricular response. PLAN: Repeat dialysis tomorrow, mainly ultrafiltration. Possible discharge tomorrow after dialysis. MMODL / IJN: [id number] /
[2018-07-09] MEDS ORDERED: ALBUTEROL NEBULIZED 2.5 MG/3 ML INHALATION PRN ×2 (21:29→21:50)
[2018-07-09] MEDS: BUDESONIDE 0.5 MG/2 ML NEBU INHALATION SCH (22:10)
[2018-07-09] MEDS ORDERED: ALBUTEROL INHALER 60 PUFF/8 GM INHALER INHALATION PRN (22:21)
[2018-07-09] MEDS: SERTRALINE 50 MG TAB PO SCH (22:49)
[2018-07-09] MEDS: ZOLPIDEM 5 MG TAB PO SCH (22:49)
--- NOTE | 2018-07-09 23:19 | P.PN ---
Subjective Progress Note Date: 07/09/18 Principal diagnosis: Volume overload Acute CHF ESRD on hemodialysis Patient is a 72-year-old female with a known history of ESRD on hemodialysis for the past 2 months Atrial fibrillation, asthma/COPD, congestive heart failure History of CVA/TIA, hypertension and osteoarthritis and other multiple medical problems came to the hospital with complaints of shortness of breath. Patient did have last hemodialysis yesterday and patient became short of breath last night approximately around 8 PM. She pressure-like chest tightness. Patient also has cough whitish sputum production. No fever no chills. No nausea vomiting or abdominal pain. Patient did have complete hemodialysis yesterday. Blood pressure was 170/103 on admission. Chest x-ray showed persistent right lower lobe opacity and vascular congestion. On change heart size. Trace bilateral pleural effusions. EKG showed normal sinus rhythm BNP 56 700 Troponin 0.043 and 0.046 and 0.046 07/09/2018: Patient says that her breathing is much better today. Patient did have hemodialysis yesterday and today. Nephrology is planning for hemodialysis tomorrow. Patient is improving symptomatically otherwise. No fever no chills. No nausea vomiting or abdominal pain. No other acute overnight issues. Current medications reviewed. Objective - Vital Signs Vital signs: Vital Signs Temp 98.3 F 07/09/18 19:24 Pulse 112 H 07/09/18 20:44 Resp 18 07/09/18 19:24 BP 130/84 07/09/18 19:24 Pulse Ox 98 07/09/18 19:24 Intake & Output 07/09/18 07/09/18 07/10/18 06:59 18:59 06:59 Intake Total 880 Balance 880 Weight 51.2 kg Intake: Oral 880 Other: Voiding Method Toilet # Voids 4 2 - Exam PHYSICAL EXAMINATION: Patient is lying in the bed comfortably, no acute distress, awake alert and oriented.. HEENT: Normocephalic. Neck is supple. Pupils reactive. Nostrils clear. Oral cavity is moist. Ears reveal no drainage. Neck reveals no JVD, carotid bruits, or thyromegaly. CHEST EXAMINATION: Trachea is central. Symmetrical expansion. Bibasilar crackles otherwise Lung caceres clear to auscultation and percussion. CARDIAC: Normal S1, S2 with no gallops. No murmurs ABDOMEN: Soft. Bowel sounds normal. No organomegaly. No abdominal bruits. Extremities: reveal no edema. No clubbing or cyanosis Neurologically awake, alert, oriented x3 with well-coordinated movements. No focal deficits noted Skin: No rash or skin lesions. Psychiatric: Coperative. Nonsuicidal Musculoskeletal: No joint swelling or deformity. Normal range of motion. - Labs CBC & Chem 7: 07/09/18 08:32 07/09/18 08:32 Labs: Abnormal Lab Results - Last 24 Hours (Table) 07/09/18 07/09/18 Range/Units 08:32 08:32 RBC 3.45 L (3.80-5.40) m/uL Hgb 10.8 L (11.4-16.0) gm/dL MCV 100.7 H (80.0-100.0) fL RDW 17.8 H (11.5-15.5) % Lymphocytes # 0.3 L (1.0-4.8) k/uL Sodium 133 L (137-145) mmol/L Chloride 96 L (98-107) mmol/L BUN 28 H (7-17) mg/dL Creatinine 2.78 H (0.52-1.04) mg/dL Glucose 168 H (74-99) mg/dL Assessment and Plan Assessment: Acute on chronic CHF likely diastolic dysfunction. Likely due to fluid overload Uncontrolled hypertension Shortness of breath secondary to above ESRD on hemodialysis via permacath Thursday Paroxysmal Atrial fibrillation. Rate controlled. With history of cardioversion. On anticoagulation with Eliquis Asthma/COPD History of CVA/TIA Osteoarthritis Previous history of smoking History of heavy alcohol use Plan: Patient will be continued on Lasix, hydralazine and metoprolol. Continue with amiodarone and also anticoagulation. Patient is getting hemodialysis .. Nephrology is following. Continue the home medications and follow closely. Further recommendations based on the clinical course. prognosis is guarded. Time with Patient: Greater than 30
[2018-07-10] MEDS: METOPROLOL TARTRATE 50 MG TAB PO SCH ×2 (07:59→21:48)
[2018-07-10] MEDS: FUROSEMIDE 40 MG TAB PO SCH (07:59)
[2018-07-10] MEDS: CALCIUM ACETATE 667 MG CAP PO SCH ×3 (07:59→17:21)
[2018-07-10] MEDS: AMIODARONE 100 MG TAB PO SCH (08:00)
[2018-07-10] MEDS: amLODIPine 10 MG TAB PO SCH (08:00)
[2018-07-10] MEDS: APIXABAN 2.5 MG TABLET PO SCH ×2 (08:00→21:48)
[2018-07-10] MEDS: hydrALAZINE HCL 50 MG TAB PO SCH ×3 (08:00→21:48)
[2018-07-10] MEDS: ATORVASTATIN 20 MG TAB PO SCH (08:00)
[2018-07-10] MEDS: POTASSIUM CHLORIDE ER 20 MEQ TAB.ER PO SCH (08:00)
[2018-07-10 08:01] LABS: Anisocytosis Slight; Basophils % (A) 1 %; Eosinophils # (A) 0.2 k/uL (0-0.7); Eosinophils % (A) 3 %; HCT 33.7 % (34.0-46.0); HGB 10.3 gm/dL (11.4-16.0); Hypochromasia Moderate; Lymphocytes # (A) 0.4 k/uL (1.0-4.8); Lymphocytes % (A) 8 %; MCH 30.8 pg (25.0-35.0); MCHC 30.7 g/dL (31.0-37.0); MCV 100.3 fL (80.0-100.0); Macrocytosis Slight; Mean Platelet Volume 6.9; Monocytes # (A) 0.4 k/uL (0-1.0); Monocytes % (A) 8 %; Neutrophils # (A) 3.7 k/uL (1.3-7.7); Neutrophils % (A) 78 %; Platelet Count 235 k/uL (150-450); RBC 3.36 m/uL (3.80-5.40); RDW 17.4 % (11.5-15.5); WBC 4.8 k/uL (3.8-10.6)
[2018-07-10 08:15] LABS: Calcium 9.2 mg/dL (8.4-10.2); Phosphorus 3.8 mg/dL (2.5-4.5); Potassium 3.9 mmol/L (3.5-5.1)
[2018-07-10] MEDS: BUDESONIDE 0.5 MG/2 ML NEBU INHALATION SCH ×2 (08:24→21:12)
[2018-07-10] MEDS: IPRATROPIUM-ALBUTEROL 3 ML NEB INHALATION SCH (08:24)
--- NOTE | 2018-07-10 12:45 | P.PN ---
Subjective Progress Note Date: 07/10/18 Principal diagnosis: This is a 72-year-old female with ESRD on dialysis Thursday who is being dialyzed aggressively was the last 3 days because of congestive heart failure and has responded well with reduction in her shortness of breath and feeling better. She still is very concerned about going home as cc she is not clear as to why she was in congestive heart failure. She states she is not drinking excessive amounts of fluid. She is known with atrial fibrillation. Today's a third dialysis and so far she has tolerated very well. A year ago her echocardiogram and the heart was unremarkable with normal ventricular function although the ejection fraction was not documented. A more recent echocardiogram dated 05/31/2018 shows ejection fraction 55-60% with no significant valvular dysfunction. Objective - Vital Signs Vital signs: Vital Signs Temp 98.1 F 07/10/18 06:52 Pulse 66 07/10/18 08:38 Resp 18 07/10/18 06:53 BP 163/70 07/10/18 06:52 Pulse Ox 100 07/10/18 06:52 Intake & Output 07/09/18 07/10/18 07/10/18 18:59 06:59 18:59 Intake Total 880 296 Balance 880 296 Weight 50.1 kg Intake: Oral 880 296 Other: Voiding Method Toilet Toilet # Voids 2 3 1 On exam concurrently on dialysis is stable A chin exam no JVP neck is supple no facial asymmetry Lungs are clear to auscultation good air entry bilaterally Heart sounds are unremarkable for any murmur rub gallop Abdomen is soft nontender no masses felt Extremity exam was no edema Neurologically awake alert oriented comfortable - Labs CBC & Chem 7: 07/10/18 07:43 07/10/18 07:43 Labs: Abnormal Lab Results - Last 24 Hours (Table) 07/10/18 07/10/18 Range/Units 07:43 07:43 RBC 3.36 L (3.80-5.40) m/uL Hgb 10.3 L (11.4-16.0) gm/dL Hct 33.7 L (34.0-46.0) % MCV 100.3 H (80.0-100.0) fL MCHC 30.7 L (31.0-37.0) g/dL RDW 17.4 H (11.5-15.5) % Lymphocytes # 0.4 L (1.0-4.8) k/uL Sodium 132 L (137-145) mmol/L Chloride 95 L (98-107) mmol/L BUN 29 H (7-17) mg/dL Creatinine 2.54 H (0.52-1.04) mg/dL Glucose 186 H (74-99) mg/dL Assessment and Plan Assessment: Impression 1. ESRD on dialysis Thursday, with volume overload responding to aggressive ultrafiltration of the last 3 days of successive dialysis. Patient can be discharged home
[2018-07-10] MEDS: SERTRALINE 50 MG TAB PO SCH (21:48)
[2018-07-10] MEDS: ZOLPIDEM 5 MG TAB PO SCH (21:48)
--- NOTE | 2018-07-10 23:53 | P.PN ---
Subjective Progress Note Date: 07/10/18 Principal diagnosis: Volume overload Acute CHF ESRD on hemodialysis Patient is a 72-year-old female with a known history of ESRD on hemodialysis for the past 2 months Atrial fibrillation, asthma/COPD, congestive heart failure History of CVA/TIA, hypertension and osteoarthritis and other multiple medical problems came to the hospital with complaints of shortness of breath. Patient did have last hemodialysis yesterday and patient became short of breath last night approximately around 8 PM. She pressure-like chest tightness. Patient also has cough whitish sputum production. No fever no chills. No nausea vomiting or abdominal pain. Patient did have complete hemodialysis yesterday. Blood pressure was 170/103 on admission. Chest x-ray showed persistent right lower lobe opacity and vascular congestion. On change heart size. Trace bilateral pleural effusions. EKG showed normal sinus rhythm BNP 56 700 Troponin 0.043 and 0.046 and 0.046 07/09/2018: Patient says that her breathing is much better today. Patient did have hemodialysis yesterday and today. Nephrology is planning for hemodialysis tomorrow. Patient is improving symptomatically otherwise. No fever no chills. No nausea vomiting or abdominal pain. No other acute overnight issues. 07/10/2018 Patient did have hemodialysis today, third consecutive day. Shortness of breath is much improved. Otherwise patient still complaining of shortness of breath. No chest pain. No nausea vomiting or abdominal pain or diarrhea. No other acute overnight issues. Anticipate discharge tomorrow with marked improvement. Current medications reviewed. Objective - Vital Signs Vital signs: Vital Signs Temp 98.0 F 07/10/18 19:06 Pulse 69 07/10/18 21:25 Resp 16 07/10/18 19:06 BP 122/63 07/10/18 19:06 Pulse Ox 97 07/10/18 19:06 Intake & Output 07/10/18 07/10/18 07/11/18 06:59 18:59 06:59 Intake Total 296 Balance 296 Weight 50.1 kg Intake: Oral 296 Other: Voiding Method Toilet Toilet # Voids 3 1 - Exam PHYSICAL EXAMINATION: Patient is lying in the bed comfortably, no acute distress, awake alert and oriented.. HEENT: Normocephalic. Neck is supple. Pupils reactive. Nostrils clear. Oral cavity is moist. Ears reveal no drainage. Neck reveals no JVD, carotid bruits, or thyromegaly. CHEST EXAMINATION: Trachea is central. Symmetrical expansion. Bibasilar crackles otherwise Lung caceres clear to auscultation and percussion. CARDIAC: Normal S1, S2 with no gallops. No murmurs ABDOMEN: Soft. Bowel sounds normal. No organomegaly. No abdominal bruits. Extremities: reveal no edema. No clubbing or cyanosis Neurologically awake, alert, oriented x3 with well-coordinated movements. No focal deficits noted Skin: No rash or skin lesions. Psychiatric: Coperative. Nonsuicidal Musculoskeletal: No joint swelling or deformity. Normal range of motion. - Labs CBC & Chem 7: 07/10/18 07:43 07/10/18 07:43 Labs: Abnormal Lab Results - Last 24 Hours (Table) 07/10/18 07/10/18 Range/Units 07:43 07:43 RBC 3.36 L (3.80-5.40) m/uL Hgb 10.3 L (11.4-16.0) gm/dL Hct 33.7 L (34.0-46.0) % MCV 100.3 H (80.0-100.0) fL MCHC 30.7 L (31.0-37.0) g/dL RDW 17.4 H (11.5-15.5) % Lymphocytes # 0.4 L (1.0-4.8) k/uL Sodium 132 L (137-145) mmol/L Chloride 95 L (98-107) mmol/L BUN 29 H (7-17) mg/dL Creatinine 2.54 H (0.52-1.04) mg/dL Glucose 186 H (74-99) mg/dL Assessment and Plan Assessment: Acute on chronic CHF likely diastolic dysfunction. Likely due to fluid overload Uncontrolled hypertension Shortness of breath secondary to above ESRD on hemodialysis via permacath Thursday Paroxysmal Atrial fibrillation. Rate controlled. With history of cardioversion. On anticoagulation with Eliquis Asthma/COPD History of CVA/TIA Osteoarthritis Previous history of smoking History of heavy alcohol use Plan: Patient will be continued on Lasix, hydralazine and metoprolol. Continue with amiodarone and also anticoagulation. Patient is getting hemodialysis day 3 .. Nephrology is following. Continue the home medications and follow closely. Further recommendations based on the clinical course. prognosis is guarded. Time with Patient: Greater than 30
--- NOTE | 2018-07-11 08:04 | P.PN ---
Subjective Progress Note Date: 07/11/18 Principal diagnosis: This is a 72-year-old female with ESRD on dialysis Thursday, admitted with congestive heart failure with atrial fibrillation and had 3 days of successive dialysis, last day being yesterday. She tolerated very well and now she is well compensated without any symptoms suggestive of congestive heart failure. Denies any shortness of breath chest pain dizziness nausea vomiting. Good appetite. The explanation for her congestive heart failure is probably atrial fibrillation , although the EKG on admission showed normal sinus rhythm at she does have history of atrial fibrillation. Her troponins were 0.043 Currently she is seemingly normal sinus rhythm by clinical exam She is willing to go for peritoneal dialysis catheter and had actually been scheduled to have one but because of his congestive heart failure had been postponed. She is cleared to undergo the procedure from nephrological perspective. A year ago her echocardiogram and the heart was unremarkable with normal ventricular function although the ejection fraction was not documented. A more recent echocardiogram dated 05/31/2018 shows ejection fraction 55-60% with no significant valvular dysfunction. Objective - Vital Signs Vital signs: Vital Signs Temp 97.9 F 07/10/18 23:45 Pulse 54 L 07/10/18 23:45 Resp 18 07/10/18 23:45 BP 164/75 07/10/18 23:45 Pulse Ox 98 07/10/18 23:45 Intake & Output 07/10/18 07/11/18 07/11/18 18:59 06:59 18:59 Intake Total 296 480 Balance 296 480 Weight 49.1 kg Intake: Oral 296 480 Other: Voiding Method Toilet # Voids 1 2 On examination she is awake alert oriented comfortable. HEENT exam no JVP neck is supple no facial asymmetry Lungs are clear to auscultation good air entry bilaterally. Crackles are heard no wheezing. Heart sounds are unremarkable seen to be normal sinus rhythm this morning usually she is in atrial fibrillation Abdomen is soft nontender Extremity exam was no edema Neurologically awake alert oriented - Labs CBC & Chem 7: 07/10/18 07:43 07/10/18 07:43 Labs: Abnormal Lab Results - Last 24 Hours (Table) 07/10/18 07/10/18 Range/Units 07:43 07:43 RBC 3.36 L (3.80-5.40) m/uL Hgb 10.3 L (11.4-16.0) gm/dL Hct 33.7 L (34.0-46.0) % MCV 100.3 H (80.0-100.0) fL MCHC 30.7 L (31.0-37.0) g/dL RDW 17.4 H (11.5-15.5) % Lymphocytes # 0.4 L (1.0-4.8) k/uL Sodium 132 L (137-145) mmol/L Chloride 95 L (98-107) mmol/L BUN 29 H (7-17) mg/dL Creatinine 2.54 H (0.52-1.04) mg/dL Glucose 186 H (74-99) mg/dL Assessment and Plan Assessment: Impression 1. ESRD on dialysis Thursday, with volume overload responding to aggressive ultrafiltration of the last 3 days of successive dialysis. 2. history of atrial fibrillation but currently in normal sinus rhythm during this hospitalization by admission EKG as well as clinical exam. 3. No evidence of acute MD. Echocardiogram shows good ejection fraction. 4. Anemia off ESRD, hemoglobin is 10.3 slightly lower since admission when it was 11 5. Calcium and phosphorus at target Recommendation 1. Patient is a CAPD candidate and had scheduled surgery which has been postponed. 2. Will recommend that the PD catheter be inserted before she is discharged if possible. I'll defer to the surgical services manager regarding this 3. Maintain other medication. 4. Will be dialyzed tomorrow. 3-1/2 Hours and will ultrafiltrate 2-1/2 L
[2018-07-11] MEDS: IPRATROPIUM-ALBUTEROL 3 ML NEB INHALATION SCH (08:22)
[2018-07-11] MEDS: BUDESONIDE 0.5 MG/2 ML NEBU INHALATION SCH ×2 (08:23→21:57)
[2018-07-11] MEDS: FUROSEMIDE 40 MG TAB PO SCH ×2 (09:29→16:13)
[2018-07-11] MEDS: CALCIUM ACETATE 667 MG CAP PO SCH ×3 (09:29→16:59)
[2018-07-11] MEDS: METOPROLOL TARTRATE 25 MG TAB PO SCH ×2 (09:29→21:28)
[2018-07-11] MEDS: amLODIPine 10 MG TAB PO SCH (09:29)
[2018-07-11] MEDS: AMIODARONE 100 MG TAB PO SCH (09:29)
[2018-07-11] MEDS: hydrALAZINE HCL 50 MG TAB PO SCH ×3 (09:30→21:28)
[2018-07-11] MEDS: POTASSIUM CHLORIDE ER 20 MEQ TAB.ER PO SCH (09:30)
[2018-07-11] MEDS: ATORVASTATIN 20 MG TAB PO SCH (09:30)
[2018-07-11] MEDS: APIXABAN 2.5 MG TABLET PO SCH ×2 (09:30→21:28)
[2018-07-11] MEDS: ZOLPIDEM 5 MG TAB PO SCH (21:28)
[2018-07-11] MEDS: SERTRALINE 50 MG TAB PO SCH (21:28)
[2018-07-11] MEDS: SYMBICORT 160-4.5 MCG INHALER INHALATION PRN (21:54)
--- NOTE | 2018-07-12 00:14 | P.PN ---
Subjective Progress Note Date: 07/11/18 Principal diagnosis: Volume overload Acute CHF ESRD on hemodialysis Patient is a 72-year-old female with a known history of ESRD on hemodialysis for the past 2 months Atrial fibrillation, asthma/COPD, congestive heart failure History of CVA/TIA, hypertension and osteoarthritis and other multiple medical problems came to the hospital with complaints of shortness of breath. Patient did have last hemodialysis yesterday and patient became short of breath last night approximately around 8 PM. She pressure-like chest tightness. Patient also has cough whitish sputum production. No fever no chills. No nausea vomiting or abdominal pain. Patient did have complete hemodialysis yesterday. Blood pressure was 170/103 on admission. Chest x-ray showed persistent right lower lobe opacity and vascular congestion. On change heart size. Trace bilateral pleural effusions. EKG showed normal sinus rhythm BNP 56 700 Troponin 0.043 and 0.046 and 0.046 07/09/2018: Patient says that her breathing is much better today. Patient did have hemodialysis yesterday and today. Nephrology is planning for hemodialysis tomorrow. Patient is improving symptomatically otherwise. No fever no chills. No nausea vomiting or abdominal pain. No other acute overnight issues. 07/10/2018 Patient did have hemodialysis today, third consecutive day. Shortness of breath is much improved. Otherwise patient still complaining of shortness of breath. No chest pain. No nausea vomiting or abdominal pain or diarrhea. No other acute overnight issues. Anticipate discharge tomorrow with marked improvement. 07/11/2018 Patient is still complaining of shortness of breath. Patient had hemodialysis for 3 consecutive days. Patient is being continued on IV Lasix 80 mg twice a day. Patient is scheduled for hemodialysis tomorrow. will check with Dr. Wadsworth if peritoneal dialysis catheter Placed while in the hospital. Otherwise patient denied any chest pain. No fever no chills. No nausea vomiting or abdominal pain or diarrhea. Current medications reviewed. Objective - Vital Signs Vital signs: Vital Signs Temp 98.0 F 07/11/18 19:12 Pulse 67 07/11/18 19:12 Resp 18 07/11/18 19:12 BP 157/69 07/11/18 19:12 Pulse Ox 99 07/11/18 19:12 Intake & Output 07/11/18 07/11/18 07/12/18 06:59 18:59 06:59 Intake Total 480 980 222 Balance 480 980 222 Weight 49.1 kg Intake: Oral 480 980 222 Other: Voiding Method Toilet # Voids 2 - Exam PHYSICAL EXAMINATION: Patient is lying in the bed comfortably, no acute distress, awake alert and oriented.. HEENT: Normocephalic. Neck is supple. Pupils reactive. Nostrils clear. Oral cavity is moist. Ears reveal no drainage. Neck reveals no JVD, carotid bruits, or thyromegaly. CHEST EXAMINATION: Trachea is central. Symmetrical expansion. Bibasilar crackles otherwise Lung caceres clear to auscultation and percussion. CARDIAC: Normal S1, S2 with no gallops. No murmurs ABDOMEN: Soft. Bowel sounds normal. No organomegaly. No abdominal bruits. Extremities: reveal no edema. No clubbing or cyanosis Neurologically awake, alert, oriented x3 with well-coordinated movements. No focal deficits noted Skin: No rash or skin lesions. Psychiatric: Coperative. Nonsuicidal Musculoskeletal: No joint swelling or deformity. Normal range of motion. - Labs CBC & Chem 7: 07/10/18 07:43 07/10/18 07:43 Assessment and Plan Assessment: Acute on chronic CHF likely diastolic dysfunction. Likely due to fluid overload. Status post dialysis 3 consecutive days. Improving. Uncontrolled hypertension Shortness of breath secondary to above ESRD on hemodialysis via permacath Thursday Paroxysmal Atrial fibrillation. Rate controlled. With history of cardioversion. On anticoagulation with Eliquis Asthma/COPD History of CVA/TIA Osteoarthritis Previous history of smoking History of heavy alcohol use Plan: Patient will be continued on Lasix, hydralazine and metoprolol. Continue with amiodarone and also anticoagulation. Patient had 3 consecutive days dialysis .. Nephrology is following. Continue the home medications and follow closely. Further recommendations based on the clinical course. prognosis is guarded. Time with Patient: Greater than 30
[2018-07-12] MEDS: BUDESONIDE 0.5 MG/2 ML NEBU INHALATION SCH ×2 (08:47→18:48)
[2018-07-12] MEDS: IPRATROPIUM-ALBUTEROL 3 ML NEB INHALATION SCH (08:47)
--- NOTE | 2018-07-12 09:07 | P.PN ---
Subjective Patient is seen in follow-up for end-stage renal disease. She is maintained on hemodialysis on a Thursday schedule. Dyspnea has improved since admission. No vomiting or diarrhea. Hemodynamically stable. Vital signs are stable. General: The patient appeared well nourished and normally developed. HEENT: Head exam is unremarkable. Neck is without jugular venous distension. LUNGS: Breath sounds decreased. HEART: Rate and Rhythm are regular. First and second heart sounds normal. No murmurs, rubs or gallops. ABDOMEN: Abdominal exam reveals normal bowel sounds. Non-tender and non- distended. No evidence of peritonitis. EXTREMITITES: No clubbing, cyanosis, or edema. Objective - Vital Signs Vital signs: Vital Signs Temp 98.0 F 07/12/18 07:00 Pulse 66 07/12/18 08:48 Resp 20 07/12/18 07:00 BP 178/84 07/12/18 07:00 Pulse Ox 98 07/12/18 07:00 Intake & Output 07/11/18 07/12/18 07/12/18 18:59 06:59 18:59 Intake Total 980 222 Balance 980 222 Weight 49 kg Intake: Oral 980 222 Other: Voiding Method Toilet - Labs CBC & Chem 7: 07/10/18 07:43 07/10/18 07:43 Assessment and Plan Plan: Assessment: 1. End-stage renal disease maintained on hemodialysis on a Thursday schedule. 2. Dyspnea secondary to volume overload improved with ultrafiltration. 3. Hyponatremia secondary to chronic kidney disease. 4. Anemia of chronic kidney disease. Hemoglobin at goal. 5. Chronic kidney disease mineral bone disease maintained on PhosLo. 6. Hypertension with chronic kidney disease. Partially volume sensitive. Expect improvement postdialysis. Plan: Hemodialysis today.
[2018-07-12] MEDS: CALCIUM ACETATE 667 MG CAP PO SCH ×3 (11:11→17:49)
[2018-07-12] MEDS: POTASSIUM CHLORIDE ER 20 MEQ TAB.ER PO SCH (11:16)
[2018-07-12] MEDS: APIXABAN 2.5 MG TABLET PO SCH ×2 (11:16→22:24)
[2018-07-12] MEDS: ATORVASTATIN 20 MG TAB PO SCH (11:19)
[2018-07-12] MEDS: amLODIPine 10 MG TAB PO SCH (13:53)
[2018-07-12] MEDS: FUROSEMIDE 40 MG TAB PO SCH ×2 (13:53→17:49)
[2018-07-12] MEDS: METOPROLOL TARTRATE 25 MG TAB PO SCH ×2 (13:54→22:23)
[2018-07-12] MEDS: hydrALAZINE HCL 50 MG TAB PO SCH ×3 (13:54→22:23)
[2018-07-12] MEDS: AMIODARONE 100 MG TAB PO SCH (13:59)
--- NOTE | 2018-07-12 17:04 | PN ---
PROGRESS NOTE DATE OF SERVICE: July 12, 2018. PRESENTING COMPLAINT: Tired. Short of breath. INTERVAL HISTORY: This is a 72-year-old patient with multiple medical problems presented with shortness of breath felt to be from fluid overload. The patient did get three consecutive ultrafiltration including 3 L removed today. Today, patient had hemodialysis 3 L removed. Still feels a bit tired. Tolerating a diet. Has been up to the bathroom. Decreased edema. Does still feels a bit tired. REVIEW OF SYSTEMS: Done for constitutional, cardiovascular, GI, pulmonary and relevant findings as above. CURRENT MEDICATIONS: Reviewed. PHYSICAL EXAMINATION: VITAL SIGNS: Temperature 98, pulse 60, respiration 20, blood pressure 178/84, pulse ox 98% on 5 L. GENERAL APPEARANCE: Sitting, out of bed, awake, comfortable. EYES: Pupils equal. Conjunctivae pale. NECK: JVD unable to assess. Mass not palpable. RESPIRATORY: Effort increased. LUNGS: Diminished breath sounds. CARDIOVASCULAR: 1st and 2nd sounds normal. Minimal edema. ABDOMEN: Soft, nontender. Liver and spleen not palpable. PSYCHIATRY: Alert and oriented x3. Mood and affect normal. INVESTIGATIONS: White count 4.8, hemoglobin 10.3, potassium 3.9. BUN 29, creatinine 2.54. ASSESSMENT: 1. Acute fluid overload due to incomplete hemodialysis requiring sequential ultrafiltration, now doing better. 2. Hypertensive heart disease. 3. Chronic obstructive pulmonary disease. 4. Paroxysmal atrial fibrillation currently in sinus rhythm. 5. End-stage kidney disease on hemodialysis. 6. Chronic rheumatoid arthritis. 7. Hyperlipidemia. 8. Anxiety and depression, not otherwise specified. 9. 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 10.Anemia of chronic kidney disease. 11.Bilateral carotid stenosis. PLAN: The patient has got hemodialyzed today 3 L were removed. The patient does feel a bit tired. Did discuss with Dr. Wilde from Nephrology. The patient may need to get dialyzed again tomorrow, though she has done better since presentation. We will repeat a chest x-ray for tomorrow morning. Total time spent today was about 40 minutes with over 25 minutes of discussion. MMODL / IJN: [id number] /
[2018-07-12] MEDS: ZOLPIDEM 5 MG TAB PO SCH (22:24)
[2018-07-12] MEDS: SERTRALINE 50 MG TAB PO SCH (22:24)
[2018-07-13] MEDS: BUDESONIDE 0.5 MG/2 ML NEBU INHALATION SCH ×2 (07:46→21:00)
[2018-07-13] MEDS: IPRATROPIUM-ALBUTEROL 3 ML NEB INHALATION SCH (07:46)
[2018-07-13] MEDS: ATORVASTATIN 20 MG TAB PO SCH (08:35)
[2018-07-13] MEDS: APIXABAN 2.5 MG TABLET PO SCH (08:35)
[2018-07-13] MEDS: METOPROLOL TARTRATE 25 MG TAB PO SCH (08:35)
[2018-07-13] MEDS: amLODIPine 10 MG TAB PO SCH (08:35)
[2018-07-13] MEDS: FUROSEMIDE 40 MG TAB PO SCH ×2 (08:35→17:56)
[2018-07-13] MEDS: AMIODARONE 100 MG TAB PO SCH (08:35)
[2018-07-13] MEDS: hydrALAZINE HCL 50 MG TAB PO SCH (08:35)
[2018-07-13] MEDS: POTASSIUM CHLORIDE ER 20 MEQ TAB.ER PO SCH (08:35)
[2018-07-13] MEDS: CALCIUM ACETATE 667 MG CAP PO SCH ×3 (08:35→18:09)
--- NOTE | 2018-07-13 11:29 | P.PN ---
Subjective Patient is seen in follow-up for end-stage renal disease. She is maintained on hemodialysis on a Thursday schedule. Dyspnea has improved since admission. No vomiting or diarrhea. Hemodynamically stable although blood pressures are on the higher side. Vital signs are stable. General: The patient appeared well nourished and normally developed. HEENT: Head exam is unremarkable. Neck is without jugular venous distension. LUNGS: Breath sounds decreased. HEART: Rate and Rhythm are regular. First and second heart sounds normal. No murmurs, rubs or gallops. ABDOMEN: Abdominal exam reveals normal bowel sounds. Non-tender and non- distended. No evidence of peritonitis. EXTREMITITES: No clubbing, cyanosis, or edema. Objective - Vital Signs Vital signs: Vital Signs Temp 98.1 F 07/13/18 07:00 Pulse 68 07/13/18 07:59 Resp 16 07/13/18 07:00 BP 174/75 07/13/18 07:00 Pulse Ox 95 07/13/18 08:34 Intake & Output 07/12/18 07/13/18 07/13/18 18:59 06:59 18:59 Intake Total 480 256 Balance 480 256 Weight 49.5 kg Intake: Oral 480 256 Other: Voiding Method Toilet # Voids 2 - Labs CBC & Chem 7: 07/10/18 07:43 07/10/18 07:43 Assessment and Plan Plan: Assessment: 1. End-stage renal disease maintained on hemodialysis on a Thursday schedule. 2. Dyspnea secondary to volume overload improved with ultrafiltration. 3. Hyponatremia secondary to chronic kidney disease. 4. Anemia of chronic kidney disease. Hemoglobin at goal. 5. Chronic kidney disease mineral bone disease maintained on PhosLo. 6. Hypertension with chronic kidney disease. Plan: Hemodialysis tomorrow. Increase dose of hydralazine. Stable for discharge from nephrology standpoint.
[2018-07-13] MEDS ORDERED: hydrALAZINE HCL 25 MG TAB PO SCH (16:00)
[2018-07-13 16:08] VITALS: BP 133/78; PULSE 63; RESP 15; TEMP 98.8
--- NOTE | 2018-07-14 08:35 | DS ---
DISCHARGE SUMMARY DATE OF ADMISSION: 07/08/2018 DATE OF DISCHARGE: . FINAL DIAGNOSES: 1. Acute fluid overload due to incomplete hemodialysis. 2. Hypertensive heart disease. 3. Chronic obstructive pulmonary disease. 4. Paroxysmal atrial fibrillation, currently in sinus rhythm. 5. End-stage kidney disease on hemodialysis. 6. Chronic rheumatoid arthritis. 7. Hyperlipidemia. 8. Anxiety, depression, not otherwise specified. 9. 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 10.Anemia of chronic kidney disease. 11.Bilateral carotid stenosis. HOSPITAL COURSE: This patient presents fluid overload, required ultrafiltration sequentially. Doing much better by the time of discharge, tolerating a diet, up to the bathroom. Care was discussed with the patient and the . Questions were answered. CONSULTATION: Dr. Wilde from Nephrology. PHYSICAL EXAMINATION: Temperature 98.4, pulse 63, blood pressure 133/78, pulse ox 94% on room air. LUNGS: Decreased breath sounds. CARDIOVASCULAR: First and second sounds are normal, INVESTIGATIONS: Hemoglobin 10.3, potassium 3.9, BUN 29, creatinine 2.54. DISCHARGE MEDICATIONS: 1. Zoloft 50 mg q.h.s. 2. Norvasc 10 mg daily. 3. Eliquis 2.5 mg b.i.d. 4. DuoNeb daily. 5. Symbicort 160/4.5 two puffs b.i.d. 6. PhosLo 667 mg p.o. t.i.d.'. 7. Ambien 5 mg q.h.s. 8. Lasix 80 mg b.i.d. 9. Lopressor 25 mg b.i.d. 10.Cordarone 100 mg p.o. daily. 11.Hydralazine 75 mg p.o. t.i.d. FOLLOWUP: Follow up with Dr. Desai in 1 week. Hemodialysis schedule to be maintained. MMODL / IJN: [id number] /
== END 2018-07-13 20:30 | disposition home or self-care (01) | DRG 291 ==
LOC: EC 01:14 → 4SSUR 03:49
PROVIDERS: ADMIT Hospitalist; ATTEND Hospitalist
PROC: 5A1D70Z Performance of Urinary Filtration, Intermittent, Less than 6 Hours Per Day (ICD-10-PCS; principal; 2018-07-08)
DX: I13.2 Hypertensive heart and chronic kidney disease with heart failure and with stage 5 chronic kidney disease, or end stage renal disease (principal); I50.33 Acute on chronic diastolic (congestive) heart failure; J96.01 Acute respiratory failure with hypoxia; N18.6 End stage renal disease; E87.1 Hypo-osmolality and hyponatremia; J44.9 Chronic obstructive pulmonary disease, unspecified; I65.23 Occlusion and stenosis of bilateral carotid arteries; D63.1 Anemia in chronic kidney disease; M06.9 Rheumatoid arthritis, unspecified; I48.0 Paroxysmal atrial fibrillation; M19.90 Unspecified osteoarthritis, unspecified site; R74.8 Abnormal levels of other serum enzymes; E78.5 Hyperlipidemia, unspecified; F32.9 Major depressive disorder, single episode, unspecified; F41.9 Anxiety disorder, unspecified; M89.9 Disorder of bone, unspecified; Z91.15 Patient's noncompliance with renal dialysis; Z71.3 Dietary counseling and surveillance; Z79.899 Other long term (current) drug therapy; Z99.2 Dependence on renal dialysis; Z79.51 Long term (current) use of inhaled steroids; Z79.01 Long term (current) use of anticoagulants; Z86.73 Personal history of transient ischemic attack (TIA), and cerebral infarction without residual deficits; Z87.891 Personal history of nicotine dependence; Z87.01 Personal history of pneumonia (recurrent); Z53.9 Procedure and treatment not carried out, unspecified reason; Z82.49 Family history of ischemic heart disease and other diseases of the circulatory system
CPT/HCPCS: 36415; 71046; 80048; 80053; 82550; 82553; 83880; 84100; 84484; 85025; 85610; 85730; 90935; 93005; 94640; 94760; 96374; 99285; 99291

== ENCOUNTER 2018-07-18 07:50 | Observation (INO) | payer MEDICARE, BC ==
[2018-07-18] MEDS ORDERED: FUROSEMIDE 10 MG/ML 4 ML VIAL IV STA (08:19)
[2018-07-18] MEDS ORDERED: SODIUM CHLORIDE 0.9% 1,000 ML IV STA (08:19)
--- NOTE | 2018-07-18 08:22 | ED ---
SOB HPI - General Chief Complaint: Shortness of Breath Stated Complaint: SOB Time Seen by Provider: 07/18/18 07:53 Source: patient, RN notes reviewed, old records reviewed Mode of arrival: EMS Limitations: no limitations - History of Present Illness Initial Comments: Patient is a 72-year-old female with end-stage renal disease on hemodialysis with history of atrial fibrillation, COPD, and CHF. Patient presents to ED today with complaints of shortness of breath. She denies any associated chest pain. She also reports that she's had a increase of cough. She denies fevers or chills nausea or vomiting.Patient last received dialysis 2 days ago on Thursday. She scheduled for Thursday,Thursday and Thursday.patient's button maker and installer is Dr. Vasquez. She sees Dr. Solis for cardiology. - Related Data Home Medications Medication Instructions Recorded Confirmed Sertraline HCl [Zoloft] 50 mg PO HS 04/30/17 07/18/18 Ipratropium-Albuterol Nebulize 3 ml INHALATION RT-DAILY 03/14/18 07/18/18 [Duoneb 0.5 mg-3 mg/3 ml Soln] Albuterol Inhaler [Ventolin Hfa 2 puff INHALATION RT-Q4H PRN 05/31/18 07/18/18 Inhaler] Calcium Acetate [PhosLo] 667 mg PO AC-TID 05/31/18 07/18/18 Zolpidem [Ambien] 5 mg PO HS 05/31/18 07/18/18 Furosemide [Lasix] 80 mg PO BID 06/24/18 07/18/18 Metoprolol Tartrate [Lopressor] 25 mg PO BID 07/08/18 07/18/18 hydrALAZINE HCL [Apresoline] 100 mg PO TID 07/18/18 07/18/18 Previous Rx's Medication Instructions Recorded amLODIPine [Norvasc] 10 mg PO DAILY tab 07/16/17 Apixaban [Eliquis] 2.5 mg PO BID #60 tablet 02/06/18 Amiodarone [Cordarone] 100 mg PO DAILY #30 tab 07/13/18 Allergies Allergy/AdvReac Type Severity Reaction Status Date / Time No Known Allergies Allergy Verified 07/18/18 10:04 Review of Systems ROS Statement: Those systems with pertinent positive or pertinent negative responses have been documented in the HPI. ROS Other: All systems not noted in ROS Statement are negative. Past Medical History Past Medical History: Atrial Fibrillation, Asthma, Heart Failure, COPD, CVA/TIA , Hypertension, Osteoarthritis (OA), Pneumonia, Renal Disease, Syncope Additional Past Medical History / Comment(s): CVA 2006 recent ARF had dialysis cath inserted 02-02-18 gets dialysis Thu-Thu-Thu. History of Any Multi-Drug Resistant Organisms: None Reported Past Surgical History: Tonsillectomy Additional Past Surgical History / Comment(s): ORIF rt ankle-[address], IUD removal, lumbar steroid injections, dental implants, cardioversion, dialysis cath. has ocl on l wrist, states fell 1 month ago and has a hairline fracture of wrist Past Anesthesia/Blood Transfusion Reactions: No Reported Reaction Additional Past Anesthesia/Blood Transfusion Reaction / Comment(s): Past blood transfusions - no reaction Past Psychological History: No Psychological Hx Reported Smoking Status: Former smoker Past Alcohol Use History: Heavy Past Drug Use History: None Reported - Past Family History Mother Family Medical History: No Reported History Additional Family Medical History / Comment(s): Mother in her 80s from abdominal aortic aneurysm. Father Family Medical History: Myocardial Infarction ([place]) Additional Family Medical History / Comment(s): Father at age 52 from acute [place]. General Exam - General Exam Comments Initial Comments: this patient's a 72-year-old female. Weak and frail.alert and oriented 3. Limitations: no limitations General appearance: alert, in no apparent distress Head exam: Present: atraumatic, normocephalic, normal inspection Eye exam: Present: normal appearance, PERRL, EOMI. Absent: scleral icterus, conjunctival injection, periorbital swelling ENT exam: Present: normal exam, mucous membranes moist Neck exam: Present: normal inspection. Absent: tenderness, meningismus, lymphadenopathy Respiratory exam: Present: wheezes, rales. Absent: normal lung sounds bilaterally, respiratory distress, rhonchi, stridor Cardiovascular Exam: Present: regular rate, normal rhythm, normal heart sounds. Absent: systolic murmur, diastolic murmur, rubs, gallop, clicks GI/Abdominal exam: Present: soft, normal bowel sounds. Absent: distended, tenderness, guarding, rebound, rigid Extremities exam: Present: normal inspection, full ROM, normal capillary refill. Absent: tenderness, pedal edema, joint swelling, calf tenderness Back exam: Present: normal inspection Neurological exam: Present: alert, oriented X3, CN II-XII intact Course Vital Signs 07/18/18 07/18/18 07/18/18 07:56 08:30 09:00 Temperature 97.8 F Pulse Rate 72 67 68 Respiratory 16 14 15 Rate Blood Pressure 175/88 170/80 155/88 O2 Sat by Pulse 93 L 94 L 98 Oximetry 07/18/18 07/18/18 09:01 09:09 Temperature Pulse Rate 70 66 Respiratory Rate Blood Pressure O2 Sat by Pulse Oximetry Medical Decision Making - Medical Decision Making Patient 32-year-old female today with history of end-stage renal disease and CHF. She presents return to the acute difficulty breathing. Concerned for fluid overload. Chest x-ray shows evidence of acute pulmonary edema. Evidence of trace pleural effusions. Is given a dose of IV Lasix. Lung sounds are bronchitis and reveals appreciated. Patient has been placed on oxygen. Patient was informed of possibility of BiPAP and she is refusing BiPAP. She is otherwise stable SUPPLEMENT OXYGEN. Patient has elevated troponin most likely reflective of end-stage renal disease. Patient denies any chest pain at this time. EKG shows no significant changes. PATIENT AT THIS TIME WILL BE ADMITTED FOR ACUTE CHF EXACERBATION WITH CONSULT TO NEPHROLOGY. SHE IS SCHEDULED FOR DIALYSIS ON Wednesdays AND FRIDAYS. - Lab Data Result diagrams: 07/18/18 08:06 07/18/18 08:06 Lab Results 07/18/18 07/18/18 07/18/18 Range/Units 08:06 08:06 08:06 WBC 6.8 (3.8-10.6) k/uL RBC 3.48 L (3.80-5.40) m/uL Hgb 11.0 L (11.4-16.0) gm/dL Hct 33.4 L (34.0-46.0) % MCV 96.2 (80.0-100.0) fL MCH 31.6 (25.0-35.0) pg MCHC 32.8 (31.0-37.0) g/dL RDW 16.8 H (11.5-15.5) % Plt Count 279 (150-450) k/uL Neutrophils % 81 % Lymphocytes % 8 % Monocytes % 6 % Eosinophils % 2 % Basophils % 0 % Neutrophils # 5.5 (1.3-7.7) k/uL Lymphocytes # 0.5 L (1.0-4.8) k/uL Monocytes # 0.4 (0-1.0) k/uL Eosinophils # 0.2 (0-0.7) k/uL Basophils # 0.0 (0-0.2) k/uL Hypochromasia Slight Anisocytosis Slight PT 9.9 (9.0-12.0) sec INR 0.9 (<1.2) APTT 25.7 (22.0-30.0) sec Sodium 132 L (137-145) mmol/L Potassium 5.1 (3.5-5.1) mmol/L Chloride 94 L (98-107) mmol/L Carbon Dioxide 26 (22-30) mmol/L Anion Gap 12 mmol/L BUN 54 H (7-17) mg/dL Creatinine 3.36 H (0.52-1.04) mg/dL Est GFR (CKD-EPI)AfAm 15 (>60 ml/min/1.73 sqM) Est GFR (CKD-EPI)NonAf 13 (>60 ml/min/1.73 sqM) Glucose 97 (74-99) mg/dL Calcium 9.8 (8.4-10.2) mg/dL Magnesium 2.0 (1.6-2.3) mg/dL Total Bilirubin 0.7 (0.2-1.3) mg/dL AST 30 (14-36) U/L ALT 24 (9-52) U/L Alkaline Phosphatase 111 (38-126) U/L Troponin I (0.000-0.034) ng/mL NT-Pro-B Natriuret Pep pg/mL Total Protein 7.3 (6.3-8.2) g/dL Albumin 4.1 (3.5-5.0) g/dL 07/18/18 07/18/18 Range/Units 08:06 08:06 WBC (3.8-10.6) k/uL RBC (3.80-5.40) m/uL Hgb (11.4-16.0) gm/dL Hct (34.0-46.0) % MCV (80.0-100.0) fL MCH (25.0-35.0) pg MCHC (31.0-37.0) g/dL RDW (11.5-15.5) % Plt Count (150-450) k/uL Neutrophils % % Lymphocytes % % Monocytes % % Eosinophils % % Basophils % % Neutrophils # (1.3-7.7) k/uL Lymphocytes # (1.0-4.8) k/uL Monocytes # (0-1.0) k/uL Eosinophils # (0-0.7) k/uL Basophils # (0-0.2) k/uL Hypochromasia Anisocytosis PT (9.0-12.0) sec INR (<1.2) APTT (22.0-30.0) sec Sodium (137-145) mmol/L Potassium (3.5-5.1) mmol/L Chloride (98-107) mmol/L Carbon Dioxide (22-30) mmol/L Anion Gap mmol/L BUN (7-17) mg/dL Creatinine (0.52-1.04) mg/dL Est GFR (CKD-EPI)AfAm (>60 ml/min/1.73 sqM) Est GFR (CKD-EPI)NonAf (>60 ml/min/1.73 sqM) Glucose (74-99) mg/dL Calcium (8.4-10.2) mg/dL Magnesium (1.6-2.3) mg/dL Total Bilirubin (0.2-1.3) mg/dL AST (14-36) U/L ALT (9-52) U/L Alkaline Phosphatase (38-126) U/L Troponin I 0.038 H* (0.000-0.034) ng/mL NT-Pro-B Natriuret Pep 72491 pg/mL Total Protein (6.3-8.2) g/dL Albumin (3.5-5.0) g/dL 07/18/18 08:29 EKG performed at 816 shows normal sinus rhythm possible left atrial enlargement. Incomplete left bundle-branch block. Left ventricular hypertrophy with repolarization abnormality. Abnormal EKG noted. Ventricular 60 extremities pertinent. Was 172 ms. QS duration 106. QT QTC 440/471. - Radiology Data Radiology results: report reviewed Chest x-ray shows correlating her fluid overload state with mild interstitial pulmonary edema. More patchy atelectasis or consolidation of the right basal small right and trace left pleural effusions. Disposition Clinical Impression: Acute pulmonary edema, Systolic congestive heart failure, Chronic renal failure , COPD (chronic obstructive pulmonary disease) Disposition: ADMITTED IP TO THIS HOSP Condition: Stable Is patient prescribed a controlled substance at d/c from ED?: No Referrals: Soren Desai MD [Primary Care Provider] - 1-2 days Time of Disposition: 10:22
[2018-07-18] MEDS ORDERED: IPRATROPIUM-ALBUTEROL 3 ML NEB INHALATION STA (08:25)
[2018-07-18 08:38] LABS: Anisocytosis Slight; Basophils % (A) 0 %; Eosinophils # (A) 0.2 k/uL (0-0.7); Eosinophils % (A) 2 %; HCT 33.4 % (34.0-46.0); Hypochromasia Slight; Lymphocytes # (A) 0.5 k/uL (1.0-4.8); Lymphocytes % (A) 8 %; MCH 31.6 pg (25.0-35.0); MCHC 32.8 g/dL (31.0-37.0); MCV 96.2 fL (80.0-100.0); Monocytes # (A) 0.4 k/uL (0-1.0); Monocytes % (A) 6 %; Neutrophils # (A) 5.5 k/uL (1.3-7.7); Neutrophils % (A) 81 %; Platelet Count 279 k/uL (150-450); RBC 3.48 m/uL (3.80-5.40); RDW 16.8 % (11.5-15.5); WBC 6.8 k/uL (3.8-10.6)
[2018-07-18 09:02] LABS: Albumin 4.1 g/dL (3.5-5.0); Calcium 9.8 mg/dL (8.4-10.2); Potassium 5.1 mmol/L (3.5-5.1); Total Bilirubin 0.7 mg/dL (0.2-1.3); Total Protein 7.3 g/dL (6.3-8.2)
[2018-07-18 09:10] LABS: INR 0.9 (<1.2); Partial Thromboplastin Time 25.7 sec (22.0-30.0); Prothrombin Time 9.9 sec (9.0-12.0)
--- NOTE | 2018-07-18 09:10 | XR ---
EXAMINATION TYPE: XR chest 2V DATE OF EXAM: 07/18/2018 COMPARISON: 07/08/2018 HISTORY: 72-year-old female shortness of breath, difficulty breathing TECHNIQUE: AP and lateral views FINDINGS: Right-sided double-lumen hemodialysis catheter with tips in the right atrium. Heart mildly enlarged. Diffuse interstitial and vascular prominence with patchy right basilar opacity with small right and t race left pleural effusions. IMPRESSION: Correlate for fluid overload state with mild interstitial pulmonary edema. More patchy atelectasis or consolidation at the right base with small right and trace left pleural effusions.
[2018-07-18] MEDS ORDERED: NALOXONE 0.4 MG/ML 1 ML VIAL IV PRN (10:23)
[2018-07-18] MEDS ORDERED: MORPHINE SULFATE 4 MG/ML SYRINGE IV PRN (10:23)
[2018-07-18] MEDS ORDERED: ACETAMINOPHEN TAB 325 MG TAB PO PRN (10:23)
[2018-07-18] MEDS ORDERED: LORazepam 2 MG/ML INJ IV PRN (10:23)
[2018-07-18] MEDS ORDERED: KETOROLAC 30 MG/ML 1 ML VIAL IVP PRN (10:23)
[2018-07-18] MEDS ORDERED: IBUPROFEN 400 MG TAB PO PRN (10:23)
[2018-07-18] MEDS ORDERED: ONDANSETRON 4 MG/2 ML VIAL IVP PRN (10:23)
--- NOTE | 2018-07-18 14:12 | P.NPCON ---
History of Present Illness - Reason for Consult end stage renal disease - Chief Complaint Shortness of breath - History of Present Illness Admitted to the hospital with shortness of breath. She follows with Dr. Wilde as outpatient. She has a right jugular permacath. Denies missing any dialysis treatment she is MWF schedule. She comes in with worsening shortness of breath given Lasix. She admits making urine. Still not back to baseline. No nausea vomiting diarrhea. Review of Systems Constitutional: Reports as per HPI Past Medical History Past Medical History: Atrial Fibrillation, Asthma, Heart Failure, COPD, CVA/TIA , Hypertension, Osteoarthritis (OA), Pneumonia, Renal Disease, Syncope Additional Past Medical History / Comment(s): CVA 2005 recent ARF had dialysis cath inserted 02-02-18 gets dialysis Thu-Thu-Thu. History of Any Multi-Drug Resistant Organisms: None Reported Past Surgical History: Tonsillectomy Additional Past Surgical History / Comment(s): ORIF rt ankle-[address], IUD removal, lumbar steroid injections, dental implants, cardioversion, dialysis cath. has ocl on l wrist, states fell 1 1/2 month ago and has a hairline fracture of wrist Past Anesthesia/Blood Transfusion Reactions: No Reported Reaction Additional Past Anesthesia/Blood Transfusion Reaction / Comment(s): Past blood transfusions - no reaction Past Psychological History: No Psychological Hx Reported Smoking Status: Former smoker Past Alcohol Use History: Heavy Additional Past Alcohol Use History / Comment(s): Patient smoked one and half packs of cigarettes per day started in 1973 and quit 2007. Patient used to drink heavily-none now Past Drug Use History: None Reported - Past Family History Mother Family Medical History: No Reported History Additional Family Medical History / Comment(s): Mother in her 80s from abdominal aortic aneurysm. Father Family Medical History: Myocardial Infarction ([place]) Additional Family Medical History / Comment(s): Father at age 52 from acute [place]. Medications and Allergies Home Medications Medication Instructions Recorded Confirmed Type Sertraline HCl [Zoloft] 50 mg PO HS 04/30/17 07/18/18 History amLODIPine [Norvasc] 10 mg PO DAILY tab 07/16/17 07/18/18 Rx Apixaban [Eliquis] 2.5 mg PO BID #60 tablet 02/06/18 07/18/18 Rx Ipratropium-Albuterol Nebulize 3 ml INHALATION RT-DAILY 03/14/18 07/18/18 History [Duoneb 0.5 mg-3 mg/3 ml Soln] Albuterol Inhaler [Ventolin Hfa 2 puff INHALATION RT-Q4H PRN 05/31/18 07/18/18 History Inhaler] Calcium Acetate [PhosLo] 667 mg PO AC-TID 05/31/18 07/18/18 History Zolpidem [Ambien] 5 mg PO HS 05/31/18 07/18/18 History Furosemide [Lasix] 80 mg PO BID 06/24/18 07/18/18 History Metoprolol Tartrate [Lopressor] 25 mg PO BID 07/08/18 07/18/18 History Amiodarone [Cordarone] 100 mg PO DAILY #30 tab 07/13/18 07/18/18 Rx hydrALAZINE HCL [Apresoline] 100 mg PO TID 07/18/18 07/18/18 History Allergies Allergy/AdvReac Type Severity Reaction Status Date / Time No Known Allergies Allergy Verified 07/18/18 10:04 Physical Exam Vitals: Vital Signs Temp Pulse Resp BP Pulse Ox 07/18/18 10:55 97.9 F 77 16 158/70 98 07/18/18 10:49 97.9 F 07/18/18 10:00 68 14 160/77 97 07/18/18 09:09 66 07/18/18 09:01 70 07/18/18 09:00 68 15 155/88 98 07/18/18 08:30 67 14 170/80 94 L 07/18/18 07:56 97.8 F 72 16 175/88 93 L Intake and Output 07/17/18 07/18/18 07/18/18 22:59 06:59 14:59 Other: Weight 53.07 kg No acute distress S1-S2 heard Basal crackles Right jugular permacath Edema Results - Lab Results Most recent lab results Calcium 9.8 mg/dL (8.4-10.2) 07/18/18 08:06 Magnesium 2.0 mg/dL (1.6-2.3) 07/18/18 08:06 07/18/18 08:06 07/18/18 08:06 Assessment and Plan Assessment: #1 shortness of breath secondary to pulmonary edema #2 ESRD on hemodialysis MWF via right jugular permacath #3 anemia with ESRD #4 metabolic bone disease with ESRD #5 hypertension with ESRD Plan: #1 plan hemodialysis today for 2 and half hours. #2 continue with Lasix #3 ESRD medications #4 plan dialysis tomorrow as per outpatient schedule.
[2018-07-18] MEDS: FUROSEMIDE 10 MG/ML 4 ML VIAL IV SCH (15:55)
[2018-07-18] MEDS ORDERED: ALBUTEROL NEBULIZED 2.5 MG/3 ML INHALATION PRN (18:08)
--- NOTE | 2018-07-18 19:04 | HP ---
HISTORY AND PHYSICAL DATE OF ADMISSION: July 18, 2018. PRESENTING COMPLAINT: Short of breath. HISTORY OF PRESENTING COMPLAINT: This is a pleasant 72-year-old patient of Dr. Desai with a rather extensive medical history. The patient was discharged from the hospital about 5 to 6 days ago days ago. Chronic stable medical conditions include hypertensive heart disease, COPD, paroxysmal atrial fibrillation, end-stage kidney disease on hemodialysis, chronic rheumatoid arthritis, hyperlipidemia, anxiety, depression, mineral bone disease, bilateral carotid disease. Last admission patient had fluid overload, required ultrafiltration. The patient again presents with increasing shortness of breath. No cough. No fever. No chills. Showing to have pulmonary edema, being admitted for the same. REVIEW OF SYSTEMS: CONSTITUTIONAL: Tired. HEENT decreased hearing. RESPIRATORY as above. CARDIOVASCULAR as above. GASTROINTESTINAL: None. GENITOURINARY none. MUSCULOSKELETAL: Some pain in the joints. DERMATOLOGICAL: None. HEMATOLOGICAL: None. PSYCHIATRY: Anxious. NEUROLOGICAL none. PAST MEDICAL HISTORY: Paroxysmal atrial fibrillation, congestive heart failure, COPD, stroke, hypertension, osteoarthritis, end-stage kidney disease. PAST SURGICAL HISTORY: Tonsillectomy, ORIF of right ankle with full screws, lumbar steroid injections, dental implants, cardioversion. SOCIAL HISTORY: Patient smoked a pack and a half of cigarettes from 1973 to 2007. Did drink heavy alcohol in the past. . FAMILY HISTORY: Mother from abdominal aortic aneurysm. HOME MEDICATIONS: 1. Hydralazine 100 mg t.i.d. 2. Norvasc 10 mg a day. 3. Ambien 5 mg at bedtime. 4. Zoloft 50 mg q.h.s. 5. Lopressor 25 mg b.i.d. 6. DuoNeb daily. 7. Lasix 80 mg b.i.d. 8. PhosLo 667 mg p.o. t.i.d. 9. Eliquis 2.5 b.i.d. 10.Amiodarone 100 mg p.o. daily. 11.Ventolin HFA 2 puffs q.4 p.r.n. ALLERGIES: None. PHYSICAL EXAMINATION: VITAL SIGNS: Vital signs on presentation, temperature 97.8, pulse 72, respirations 16, blood pressure 135/88, pulse ox 93 percent on room air. GENERAL APPEARANCE: Lying in bed, tired appearing. EYES: Pupils equal. Conjunctivae normal. HEENT: External appearance of nose and ears normal. Oral cavity normal. NECK: JVD unable to assess. Mass not palpable. RESPIRATORY: Effort increased. LUNGS: Diminished breath sounds. CARDIOVASCULAR: First and second sounds normal. No edema. ABDOMEN: Soft, nontender. Liver and spleen not palpable. LYMPHATICS: No lymph nodes palpable in the neck and axilla. PSYCHIATRY: Alert and oriented x3. Mood and affect slightly anxious-appearing. NEUROLOGICAL: Pupils equal. Cranial nerves grossly intact. Power and sensation grossly intact. INVESTIGATIONS: White count 6.8, hemoglobin 11, potassium 5.1, BUN 54, creatinine 3.36. EKG tracing personally reviewed by me shows LVH changes, some repolarization changes with some ST- segment changes. Chest x-ray film personally reviewed by me shows pulmonary edema with fluid in the horizontal entrance with fissure, some pulmonary edema, right sided pleural effusion. ASSESSMENT: 1. Acute fluid overload from pulmonary edema, probably from incomplete hemodialysis. 2. Hypertensive heart disease. 3. Chronic obstructive pulmonary disease in an ex-smoker. 4. Paroxysmal atrial fibrillation currently sinus rhythm. 5. End-stage kidney disease on hemodialysis. 6. Chronic rheumatoid arthritis. 7. Hyperlipidemia. 8. Anxiety and depression, not otherwise specified. 9. 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 10.Anemia of chronic kidney disease. 11.Bilateral carotid stenosis. PLAN: Home medications are resumed. I spoke to Dr. Poppy Chowdhury, from Nephrology. The patient to get dialyzed today. The patient has scheduled dialysis also tomorrow. Hopefully patient can be discharged. Care was discussed with the patient and the . Home medications are reviewed. Copy to Dr. Interiano. MMRODGERL / GEE: [id number] /
[2018-07-18] MEDS ORDERED: SERTRALINE 50 MG TAB PO SCH (21:00)
[2018-07-18] MEDS ORDERED: ZOLPIDEM 5 MG TAB PO SCH (21:00)
[2018-07-18] MEDS: APIXABAN 2.5 MG TABLET PO SCH (21:18)
[2018-07-18] MEDS: hydrALAZINE HCL 50 MG TAB PO SCH ×2 (21:18→21:20)
[2018-07-18] MEDS: AMIODARONE 100 MG TAB PO SCH (21:18)
[2018-07-18] MEDS: METOPROLOL TARTRATE 25 MG TAB PO SCH (21:18)
[2018-07-19] MEDS: FUROSEMIDE 10 MG/ML 4 ML VIAL IV SCH ×3 (00:24→15:34)
[2018-07-19 00:25] VITALS: RESP 16
[2018-07-19] MEDS ORDERED: IPRATROPIUM-ALBUTEROL 3 ML NEB INHALATION SCH (08:00)
[2018-07-19] MEDS ORDERED: amLODIPine 10 MG TAB PO SCH (09:00)
[2018-07-19] MEDS ORDERED: PANTOPRAZOLE 40 MG/10 ML VIAL IV SCH (09:00)
[2018-07-19] MEDS: CALCIUM ACETATE 667 MG CAP PO SCH ×2 (09:50→15:27)
[2018-07-19] MEDS: AMIODARONE 100 MG TAB PO SCH (09:50)
[2018-07-19] MEDS: APIXABAN 2.5 MG TABLET PO SCH (09:51)
[2018-07-19] MEDS: METOPROLOL TARTRATE 25 MG TAB PO SCH (09:51)
[2018-07-19] MEDS: hydrALAZINE HCL 50 MG TAB PO SCH ×2 (09:51→15:26)
[2018-07-19 11:39] VITALS: BMI 19.4
[2018-07-19] MEDS ORDERED: FOLIC ACID-VIT B COMPLEX-VIT C 1 CAP PO SCH (12:00)
[2018-07-19 12:53] VITALS: BP 185/62; PULSE 65; TEMP 97.9
--- NOTE | 2018-07-19 18:05 | PN ---
PROGRESS NOTE Patient is seen for followup for end-stage renal disease. She is currently seen on hemodialysis. She is tolerating her treatment well. We had about 3.5 liters of ultrafiltration yesterday. We are going for about the same again today. On examination, blood pressure was elevated at 185/62, heart rate 65 per minute. Patient is afebrile. EXAMINATION OF THE HEART: S1 and S2. EXAMINATION OF LUNGS: Bilateral breath sounds are heard. ABDOMEN: Soft, non-tender. Examination of lower extremities shows no evidence of edema. TELEVISION ANALYZER exam is grossly intact. Labs show hemoglobin 11.0 from yesterday. Potassium was 5.1. ASSESSMENT: 1. End-stage renal disease, on hemodialysis on a Thursday, Thursday, Thursday schedule. 2. Fluid overload, currently improved. 3. Hypertension, partly volume-sensitive. 4. Chronic kidney disease mineral bone disorder. PLAN: Patient can be discharged today post dialysis. We will try to increase her UF as outpatient to prevent further hospitalizations. Patient is scheduled for PD catheter placement next week by Dr. Wadsworth. MMRODGERL / TRINAN: [id number] /
[2018-07-19 18:44] LABS: Hepatitis B Surface AB- Quant 4.1 mIU/mL
--- NOTE | 2018-07-20 06:04 | DS ---
DISCHARGE SUMMARY DATE OF ADMISSION: 07/18/2018 DATE OF DISCHARGE: 07/19/2018 FINAL DIAGNOSES: 1. Acute fluid overload with pulmonary edema from incomplete hemodialysis. 2. Hypertensive heart disease. 3. Chronic obstructive pulmonary disease in an ex-smoker. 4. Paroxysmal atrial fibrillation currently in sinus rhythm. 5. End-stage kidney disease on hemodialysis. 6. Chronic rheumatoid arthritis. 7. Hyperlipidemia. 8. Anxiety and depression, not otherwise specified. 9. 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 10.Anemia of chronic kidney disease. 11.Bilateral carotid stenosis. HOSPITAL COURSE: This patient was just discharged from the hospital presented yet again with shortness of breath, found to be in pulmonary edema. Yesterday 3.5 L were removed with hemodialysis. Yet again the same amount was removed. The patient is doing much better. Care was discussed with the patient. at the bedside. CONSULTATION: Dr. Vargas from Nephrology. On examination, temperature 97.9, pulse 65, respirations 16, blood pressure 185/62, pulse ox 96% on room air. Repeat blood pressure was done. LUNGS: Diminished breath sounds. PSYCH: AO x3. INVESTIGATIONS: Hemoglobin 11. DISCHARGE MEDICATIONS: 1. Zoloft 50 mg q.h.s. 2. Norvasc 10 mg p.o. daily. 3. Eliquis 2.5 p.o. b.i.d. 4. DuoNeb daily. 5. Ventolin HFA 2 puffs q.4 p.r.n. 6. PhosLo 667 mg p.o. t.i.d. 7. Ambien 5 mg q.h.s. 8. Lasix 80 mg p.o. b.i.d. 9. Lopressor 25 mg b.i.d. 10.Cordarone 100 mg p.o. daily. 11.Hydralazine 100 mg p.o. t.i.d. Follow up with Dr. Desai's on 07/22/2018. The patient to maintain hemodialysis schedule. MMODL / IJN: [id number] /
[2018-07-20] MEDS ORDERED: PANTOPRAZOLE 40 MG TABLET PO SCH (07:30)
== END 2018-07-19 16:10 | disposition home or self-care (01) ==
LOC: EC 07:50 → 3NMEDONC 10:29
PROVIDERS: ADMIT Hospitalist; ATTEND Hospitalist
DX: I13.2 Hypertensive heart and chronic kidney disease with heart failure and with stage 5 chronic kidney disease, or end stage renal disease (principal); I50.22 Chronic systolic (congestive) heart failure; N18.6 End stage renal disease; I48.0 Paroxysmal atrial fibrillation; D63.1 Anemia in chronic kidney disease; E88.89 Other specified metabolic disorders; F41.9 Anxiety disorder, unspecified; F32.9 Major depressive disorder, single episode, unspecified; I65.23 Occlusion and stenosis of bilateral carotid arteries; E78.5 Hyperlipidemia, unspecified; J44.9 Chronic obstructive pulmonary disease, unspecified; M06.9 Rheumatoid arthritis, unspecified; M19.90 Unspecified osteoarthritis, unspecified site; Z86.73 Personal history of transient ischemic attack (TIA), and cerebral infarction without residual deficits; Z96.5 Presence of tooth-root and mandibular implants; Z79.01 Long term (current) use of anticoagulants; Z87.891 Personal history of nicotine dependence; Z79.899 Other long term (current) drug therapy; Z99.2 Dependence on renal dialysis; Z82.49 Family history of ischemic heart disease and other diseases of the circulatory system
CPT/HCPCS: 96376; 96361; 96374; 96375; 99285; 36415; 94640 ×3; 94760; 93005; 83880; 80053; 83735; 84484; 85025; 85610; 85730; 86706; 87340; 86704; 71046; G0378 ×2; J1940 ×2; C9113; G0257; 90935

== ENCOUNTER 2018-07-22 11:28 | Day surgery (SDC) | payer MEDICARE, BC ==
[2018-07-20 11:22] VITALS: BMI 19.4
[~2018-07-22 11:28] MED LIST: DEXAMETHASONE SOD PHOSPHATE 10 MG/ML 1 ML VIAL IV ONE; HEPARIN SODIUM,PORCINE 5,000 UNIT/ML 1 ML VIAL SQ ONE; LACTATED RINGERS 1,000 ML IV SCH; LIDOCAINE 1% 20 ML VIAL (10MG/ML) FOR IV START INTRADERMA PRN; MIDAZOLAM (PF) 2 MG/2 ML VIAL IV PRN; ceFAZolin IN SWFI 2 GM/20 ML SYRINGE IVP ONE; fentaNYL (PF) 50 MCG/ML 2 ML AMP IV PRN
[2018-07-22 12:44] VITALS: RESP 16
[2018-07-22 13:07] LABS: Anisocytosis Slight; Basophils # (A) 0.1 k/uL (0-0.2); Basophils % (A) 1 %; Eosinophils # (A) 0.1 k/uL (0-0.7); Eosinophils % (A) 2 %; HCT 32.5 % (34.0-46.0); HGB 10.3 gm/dL (11.4-16.0); Lymphocytes # (A) 0.8 k/uL (1.0-4.8); Lymphocytes % (A) 13 %; MCH 30.3 pg (25.0-35.0); MCHC 31.7 g/dL (31.0-37.0); MCV 95.6 fL (80.0-100.0); Mean Platelet Volume 6.9; Monocytes # (A) 0.6 k/uL (0-1.0); Monocytes % (A) 9 %; Neutrophils # (A) 4.5 k/uL (1.3-7.7); Neutrophils % (A) 71 %; Platelet Count 292 k/uL (150-450); RDW 16.6 % (11.5-15.5); WBC 6.3 k/uL (3.8-10.6)
[2018-07-22 13:16] LABS: Albumin 4.1 g/dL (3.5-5.0); Calcium 9.9 mg/dL (8.4-10.2); Potassium 3.8 mmol/L (3.5-5.1); Total Bilirubin 0.4 mg/dL (0.2-1.3); Total Protein 7.1 g/dL (6.3-8.2)
[2018-07-22] MEDS ORDERED: MINERAL OIL 1 APPLIC/ML OIL TOPICAL ONE (14:52)
[2018-07-22] MEDS ORDERED: BUPIVACAIN-EPI 0.5%-1:200,000 30 ML VIAL SQ ONE ×2 (14:53)
[2018-07-22] MEDS ORDERED: PROPOFOL 10 MG/ML 20 ML VIAL IV ONE (14:58)
[2018-07-22] MEDS ORDERED: MIDAZOLAM 2 MG/2 ML VIAL ONE (14:58)
[2018-07-22] MEDS ORDERED: diphenhydrAMINE 50 MG/ML 1 ML VIAL ONE (14:58)
[2018-07-22 15:59] VITALS: TEMP 96.9
[2018-07-22] MEDS ORDERED: NALOXONE 0.4 MG/ML 1 ML VIAL IV PRN (16:03)
[2018-07-22] MEDS ORDERED: HYDROcodone/APAP 5-325MG 1 EACH TAB PO PRN (16:03)
--- NOTE | 2018-07-22 16:05 | P.OP ---
Date of Procedure: 07/22/18 Procedure(s) Performed: PREOPERATIVE DIAGNOSIS: Renal failure POSTOPERATIVE DIAGNOSIS: Same PROCEDURE: Peritoneal dialysis catheter insertion SURGEON: Ermelinda EBL: Minimal ANESTHESIA: Sedation plus local COMPLICATIONS: None OPERATIVE PROCEDURE: The patient was placed in the operative table in the supine position. Her abdomen was prepped and draped in usual sterile fashion. A small vertical incision was made in the right periumbilical location. Dissection down through the subcutaneous tissues took place using electrocautery. The anterior rectus was divided vertically using the scalpel. The rectus was bluntly. The posterior rectus was visualized. An 0 Vicryl pursestring was placed. A small opening in the posterior rectus fascia and peritoneum took place using a Metzenbaum scissors. There were no adhesions to the suture that was placed. The pigtail catheter was advanced into the pelvis over a stylette. No resistance was met. The inner cuff was secured to the fascia using the 0 Vicryl pursestring that was placed. The catheter was tunneled to an exit site in the right lateral lower quadrant. The catheter was connected to the 1 L bag of saline and approximated 800 mL of saline was easily introduced into the peritoneal cavity. The fluid was then allowed to evacuate. The majority of the fluid was returned. The anterior rectus fascia was then reapproximated using a running 0 Vicryl stitch. The subcutaneous tissues reprepped using 3-0 Vicryl sutures and the skin using 4-0 Monocryl sutures. The outpatient dialysis adapter was applied to the end of the catheter. A sterile dressings then applied after Steri-Strips were placed over the incision. DISPOSITION: Stable to recovery room
[2018-07-22] MEDS ORDERED: HYDROcodone/APAP 5-325MG 1 EACH TAB PO ONE (16:44)
[2018-07-22 17:29] VITALS: BP 147/80; PULSE 107
== END 2018-07-22 17:48 | disposition home or self-care (01) ==
LOC: OR 11:28
PROVIDERS: ATTEND Surgery
DX: I13.2 Hypertensive heart and chronic kidney disease with heart failure and with stage 5 chronic kidney disease, or end stage renal disease (principal); N18.6 End stage renal disease; I50.9 Heart failure, unspecified; Z99.2 Dependence on renal dialysis; I48.91 Unspecified atrial fibrillation; J45.909 Unspecified asthma, uncomplicated; Z86.73 Personal history of transient ischemic attack (TIA), and cerebral infarction without residual deficits; M19.90 Unspecified osteoarthritis, unspecified site; Z79.899 Other long term (current) drug therapy; Z82.49 Family history of ischemic heart disease and other diseases of the circulatory system; F32.9 Major depressive disorder, single episode, unspecified
CPT/HCPCS: 80053; 85025; 49421; C1752; J2250; J1200; J1644; J1100; J2704; J0690

== ENCOUNTER 2018-07-22 21:56 | Inpatient (IN) | payer MEDICARE, BC ==
--- NOTE | 2018-07-22 22:13 | ED ---
General Adult HPI - General Chief complaint: Recheck/Abnormal Lab/Rx Stated complaint: Dialysis Catheter Issue Time Seen by Provider: 07/22/18 22:07 Source: patient Mode of arrival: EMS Limitations: no limitations - History of Present Illness Initial comments: Dictation was produced using [employer] dictation software. please excuse any gr ammatical, word or spelling errors. Chief Complaint: Patient is 72-year-old female she has a past medical history of atrial fibrillation on anticoagulation presents with bleeding from surgical site. History of Present Illness: Patient 72-year-old female. She is on eliquis. Patient on anticoagulation for atrial fibrillation. Patient had PD catheter performed for peritoneal dialysis. Patient does have a percutaneous cath in the left neck. Patient states that her surgery was uneventful. She was discharged home when she noted that her dressing became very saturated. She called EMS and patient was transferred to the emergency department. Patient otherwise is asymptomatic. Denies any lightheadedness. She denies any changes in her skin tone. The ROS documented in this emergency department record has been reviewed and confirmed by me. Those systems with pertinent positive or negative responses have been documented in the HPI. All other systems are other negative and/or noncontributory. PHYSICAL EXAM: General Impression: Alert and oriented x3, not in acute distress, mentating appropriately HEENT: Normocephalic atraumatic, extra-ocular movements intact, pupils equal and reactive to light bilaterally, mucous membranes moist. Cardiovascular: Irregularly irregular Chest: Lungs clear to auscultation bilaterally, no rhonchi, no wheeze, no rales Abdomen: PD catheter intact. Midline surgical site is clean dry and intact. There is some oozing of blood coming from the external abdominal site. Musculoskeletal: Pulses present and equal in all extremities, no peripheral edema Motor: Power 5/5 bilaterally, no focal deficits noted Neurological: CN II-XII grossly intact, no focal motor or sensory deficits noted Skin: Intact with no visualized rashes Psych: Normal affect and mood ED course: 72-year-old female presents with bleeding from surgical site. Vital signs upon arrival shows heart rate 129, worse vital signs within acceptable limits. Patient appears to be in A. fib with rapid ventricular rate. This may be a sign of hemorrhage however patient is asymptomatic mentating properly. There is concern that patient is in mild shock. Wound site was evaluated. Pressure dressing was applied with abdominal binder. At this point there does not seem to be any evidence of life-threatening bleeding at this time indicating mass transfusion protocol or rapid anticoagulation reversal.Patient observed in emergency department found to be hemodynamically stable. Patient's dressing was reevaluated and no significant bleeding occurring after application of pressure dressing. Laboratory evaluation obtained. CBC, coag panel, metabolic panel is all within acceptable limits. Patient case discussed with Dr. Choe who is amenable for patient to be observed to Gen. surgery for medical monitoring. This point there is no need for any significant intervention. Patient's antihypertensives and beta blockers to be held at this time. eliquis was also to be held at this time. EKG interpretation: Ventricular rate 117, A. fib with RVR, QS 104, QTC 426. No MS prolongation, no QTC prolongation, no ST or T-wave changes noted. Overall, this EKG is unremarkable - Related Data Home Medications Medication Instructions Recorded Confirmed Sertraline HCl [Zoloft] 50 mg PO HS 04/30/17 07/22/18 Albuterol Inhaler [Ventolin Hfa 2 puff INHALATION RT-Q4H PRN 05/31/18 07/22/18 Inhaler] Calcium Acetate [PhosLo] 667 mg PO AC-TID 05/31/18 07/22/18 Zolpidem [Ambien] 5 mg PO HS 05/31/18 07/22/18 Furosemide [Lasix] 80 mg PO BID 06/24/18 07/22/18 Metoprolol Tartrate [Lopressor] 25 mg PO BID 07/08/18 07/22/18 hydrALAZINE HCL [Apresoline] 100 mg PO TID 07/18/18 07/22/18 Amiodarone [Cordarone] 100 mg PO 1200 07/20/18 07/22/18 amLODIPine [Norvasc] 10 mg PO 1200 07/20/18 07/22/18 Previous Rx's Medication Instructions Recorded Apixaban [Eliquis] 2.5 mg PO BID #60 tablet 02/06/18 Hydrocodone/Acetaminophen [Ong 1 tab PO Q6HR PRN 3 Days #5 tab 07/22/18 5-325] Allergies Allergy/AdvReac Type Severity Reaction Status Date / Time No Known Allergies Allergy Verified 07/22/18 22:28 Review of Systems ROS Statement: Those systems with pertinent positive or pertinent negative responses have been documented in the HPI. ROS Other: All systems not noted in ROS Statement are negative. Past Medical History Past Medical History: Atrial Fibrillation, Asthma, Heart Failure, COPD, CVA/TIA, Hypertension, Osteoarthritis (OA), Pneumonia, Renal Disease, Syncope Additional Past Medical History / Comment(s): CVA 2006 recent ARF had dialysis cath inserted 02-02-18 gets dialysis Thu-. History of Any Multi-Drug Resistant Organisms: None Reported Past Surgical History: Tonsillectomy Additional Past Surgical History / Comment(s): ORIF rt ankle-[address], IUD removal, lumbar steroid injections, dental implants, cardioversion, dialysis cath. has ocl on l wrist, states fell 1 1/2 month ago and has a hairline fracture of wrist Past Anesthesia/Blood Transfusion Reactions: No Reported Reaction Additional Past Anesthesia/Blood Transfusion Reaction / Comment(s): Past blood transfusions - no reaction Past Psychological History: No Psychological Hx Reported Smoking Status: Former smoker Past Alcohol Use History: Heavy Past Drug Use History: None Reported - Past Family History Mother Family Medical History: No Reported History Additional Family Medical History / Comment(s): Mother in her 80s from abdominal aortic aneurysm. Father Family Medical History: Myocardial Infarction ([place]) Additional Family Medical History / Comment(s): Father at age 52 from acute [place]. General Exam Limitations: no limitations Course Vital Signs 07/22/18 07/22/18 21:58 22:03 Temperature 98.1 F Pulse Rate 129 H Respiratory 14 Rate Blood Pressure 179/121 O2 Sat by Pulse 100 Oximetry Medical Decision Making - Lab Data Result diagrams: 07/22/18 22:22 07/22/18 22:22 Lab Results 07/22/18 07/22/18 07/22/18 Range/Units 22:22 22:22 22:22 WBC 6.0 (3.8-10.6) k/uL RBC 3.77 L (3.80-5.40) m/uL Hgb 11.6 (11.4-16.0) gm/dL Hct 36.7 (34.0-46.0) % MCV 97.2 (80.0-100.0) fL MCH 30.8 (25.0-35.0) pg MCHC 31.7 (31.0-37.0) g/dL RDW 16.5 H (11.5-15.5) % Plt Count 300 (150-450) k/uL Neutrophils % 92 % Lymphocytes % 4 % Monocytes % 2 % Eosinophils % 1 % Basophils % 0 % Neutrophils # 5.5 (1.3-7.7) k/uL Lymphocytes # 0.3 L (1.0-4.8) k/uL Monocytes # 0.1 (0-1.0) k/uL Eosinophils # 0.0 (0-0.7) k/uL Basophils # 0.0 (0-0.2) k/uL Hypochromasia Slight Anisocytosis Slight PT 9.7 (9.0-12.0) sec INR 0.9 (<1.2) Sodium 134 L (137-145) mmol/L Potassium 4.5 (3.5-5.1) mmol/L Chloride 95 L (98-107) mmol/L Carbon Dioxide 26 (22-30) mmol/L Anion Gap 13 mmol/L BUN 33 H (7-17) mg/dL Creatinine 2.60 H (0.52-1.04) mg/dL Est GFR (CKD-EPI)AfAm 21 (>60 ml/min/1.73 sqM) Est GFR (CKD-EPI)NonAf 18 (>60 ml/min/1.73 sqM) Glucose 180 H (74-99) mg/dL Calcium 9.2 (8.4-10.2) mg/dL Magnesium 2.0 (1.6-2.3) mg/dL Total Bilirubin 0.5 (0.2-1.3) mg/dL AST 25 (14-36) U/L ALT 23 (9-52) U/L Alkaline Phosphatase 95 (38-126) U/L Total Protein 7.3 (6.3-8.2) g/dL Albumin 4.1 (3.5-5.0) g/dL Disposition Clinical Impression: Post-operative hemorrhage Disposition: ADMITTED IP TO THIS HOSP Condition: Good Referrals: Soren Desai MD [Primary Care Provider] - 1-2 days Decision Time: 23:18
[2018-07-22 22:36] LABS: Anisocytosis Slight; Basophils % (A) 0 %; Eosinophils % (A) 1 %; HCT 36.7 % (34.0-46.0); HGB 11.6 gm/dL (11.4-16.0); Hypochromasia Slight; Lymphocytes # (A) 0.3 k/uL (1.0-4.8); Lymphocytes % (A) 4 %; MCH 30.8 pg (25.0-35.0); MCHC 31.7 g/dL (31.0-37.0); MCV 97.2 fL (80.0-100.0); Mean Platelet Volume 7.2; Monocytes # (A) 0.1 k/uL (0-1.0); Monocytes % (A) 2 %; Neutrophils # (A) 5.5 k/uL (1.3-7.7); Neutrophils % (A) 92 %; Platelet Count 300 k/uL (150-450); RBC 3.77 m/uL (3.80-5.40); RDW 16.5 % (11.5-15.5)
[2018-07-22 22:47] LABS: Albumin 4.1 g/dL (3.5-5.0); Calcium 9.2 mg/dL (8.4-10.2); Total Bilirubin 0.5 mg/dL (0.2-1.3); Total Protein 7.3 g/dL (6.3-8.2)
[2018-07-22 22:54] LABS: INR 0.9 (<1.2); Prothrombin Time 9.7 sec (9.0-12.0)
[2018-07-22 23:02] LABS: Potassium 4.5 mmol/L (3.5-5.1)
[2018-07-22] MEDS ORDERED: NALOXONE 0.4 MG/ML 1 ML VIAL IV PRN (23:14)
[2018-07-23] MEDS ORDERED: hydrALAZINE HCL 50 MG TAB PO STA ×2 (00:21→00:34)
[2018-07-23] MEDS: ALBUTEROL NEBULIZED 2.5 MG/3 ML INHALATION PRN ×3 (03:16→22:01)
[2018-07-23] MEDS ORDERED: DILTIAZEM DRIP BOLUS FROM BAG 1 MG SOLN IV ONE (04:50)
[2018-07-23] MEDS ORDERED: DILTIAZEM 125 MG in SODIUM CHLORIDE 0.9% 100 ML IV SCH (05:00)
[2018-07-23 06:30] LABS: Anisocytosis Slight; Basophils % (A) 0 %; Eosinophils % (A) 0 %; HCT 29.6 % (34.0-46.0); Hypochromasia Slight; Lymphocytes # (A) 0.5 k/uL (1.0-4.8); Lymphocytes % (A) 7 %; MCH 30.7 pg (25.0-35.0); MCHC 31.5 g/dL (31.0-37.0); MCV 97.4 fL (80.0-100.0); Mean Platelet Volume 6.5; Monocytes # (A) 0.4 k/uL (0-1.0); Monocytes % (A) 5 %; Neutrophils # (A) 5.7 k/uL (1.3-7.7); Neutrophils % (A) 85 %; Platelet Count 305 k/uL (150-450); RBC 3.04 m/uL (3.80-5.40); RDW 16.4 % (11.5-15.5); WBC 6.8 k/uL (3.8-10.6)
[2018-07-23 06:35] LABS: HGB 9.3 gm/dL (11.4-16.0)
[2018-07-23] MEDS ORDERED: DESMOPRESSIN ACETATE 1 MCG in SODIUM CHLORIDE 0.9% 50 ML IVPB ONE (07:34)
[2018-07-23] MEDS ORDERED: DESMOPRESSIN ACETATE 14 MCG in SODIUM CHLORIDE 0.9% 50 ML IVPB ONE (07:34)
[2018-07-23] MEDS: hydrALAZINE HCL 50 MG TAB PO SCH ×3 (09:31→22:46)
--- NOTE | 2018-07-23 11:28 | P.GSHP ---
History of Present Illness H&P Date: 07/23/18 Chief Complaint: Postoperative bleeding Patient came to the hospital last night after elective peritoneal dialysis catheter insertion yesterday afternoon. Apparently 2-3 hours after she got home she had evidence of bleeding at the dressing site. She came to the hospital and was found to have oozing around the catheter exit site. The patient was admitted to the hospital at that time. Pressure was held at various times with no complete resolution of the bleeding apparently. This morning when I examined that area pressure was again held specifically at the exit site with only slight improvement. Otherwise feels well. She did develop tachycardia with atrial fibrillation. Today's hemoglobin 9.3. Coags normal. - Review of Systems Comment: The patient denies any acute changes in vision or hearing, no dysphagia or odynophagia, no chest pain or shortness of breath, no dysuria or hematuria, no headache, no runny nose, no rectal bleeding or melena, no unexplained weight loss Past Medical History Past Medical History: Atrial Fibrillation, Asthma, Heart Failure, COPD, CVA/TIA, Hypertension, Osteoarthritis (OA), Pneumonia, Renal Disease, Syncope Additional Past Medical History / Comment(s): CVA 2005 recent ARF had dialysis cath inserted 02-02-18 gets dialysis Thu-Thu-Thu. History of Any Multi-Drug Resistant Organisms: None Reported Past Surgical History: Tonsillectomy Additional Past Surgical History / Comment(s): ORIF rt ankle-[address], IUD removal, lumbar steroid injections, dental implants, cardioversion, dialysis cath. has ocl on l wrist, states fell 1 1/2 month ago and has a hairline fracture of wrist Past Anesthesia/Blood Transfusion Reactions: No Reported Reaction Additional Past Anesthesia/Blood Transfusion Reaction / Comment(s): Past blood transfusions - no reaction Past Psychological History: No Psychological Hx Reported Smoking Status: Former smoker Past Alcohol Use History: Heavy Additional Past Alcohol Use History / Comment(s): Patient smoked one and half packs of cigarettes per day started in 1973 and quit 2007. Patient used to drink heavily-none now Past Drug Use History: None Reported - Past Family History Mother Family Medical History: No Reported History Additional Family Medical History / Comment(s): Mother in her 80s from abdominal aortic aneurysm. Father Family Medical History: Myocardial Infarction ([place]) Additional Family Medical History / Comment(s): Father at age 52 from acute [place]. Medications and Allergies Home Medications Medication Instructions Recorded Confirmed Type Sertraline HCl [Zoloft] 50 mg PO HS 04/30/17 07/22/18 History Apixaban [Eliquis] 2.5 mg PO BID #60 tablet 02/06/18 07/22/18 Rx Albuterol Inhaler [Ventolin Hfa 2 puff INHALATION RT-Q4H PRN 05/31/18 07/22/18 History Inhaler] Calcium Acetate [PhosLo] 667 mg PO AC-TID 05/31/18 07/22/18 History Zolpidem [Ambien] 5 mg PO HS 05/31/18 07/22/18 History Furosemide [Lasix] 80 mg PO BID 06/24/18 07/22/18 History Metoprolol Tartrate [Lopressor] 25 mg PO BID 07/08/18 07/22/18 History hydrALAZINE HCL [Apresoline] 100 mg PO TID 07/18/18 07/22/18 History Amiodarone [Cordarone] 100 mg PO 1200 07/20/18 07/22/18 History amLODIPine [Norvasc] 10 mg PO 1200 07/20/18 07/22/18 History Hydrocodone/Acetaminophen [Flom 1 tab PO Q6HR PRN 3 Days #5 tab 07/22/18 07/22/18 Rx 5-325] Allergies Allergy/AdvReac Type Severity Reaction Status Date / Time No Known Allergies Allergy Verified 07/22/18 22:28 Surgical - Exam Vital Signs Temp Pulse Resp Pulse Ox 98.1 F 129 H 14 100 07/22/18 21:58 07/22/18 21:58 07/22/18 21:58 07/22/18 21:58 Physical exam: General: Well-developed, well-nourished HEENT: Normocephalic, sclerae nonicteric Abdomen: Nontender, nondistended, incision right midabdomen clean and dry, exit site with slow but persistent oozing Extremities: No edema Neuro: Alert and oriented Results - Labs 07/23/18 06:02 07/22/18 22:22 Abnormal Lab Results - Last 24 Hours (Table) 07/22/18 07/22/18 07/23/18 Range/Units 22:22 22:22 06:02 RBC 3.77 L 3.04 L (3.80-5.40) m/uL Hgb 9.3 L D (11.4-16.0) gm/dL Hct 29.6 L (34.0-46.0) % RDW 16.5 H 16.4 H (11.5-15.5) % Lymphocytes # 0.3 L 0.5 L (1.0-4.8) k/uL Sodium 134 L (137-145) mmol/L Chloride 95 L (98-107) mmol/L BUN 33 H (7-17) mg/dL Creatinine 2.60 H (0.52-1.04) mg/dL Glucose 180 H (74-99) mg/dL Diabetes panel 07/22/18 Range/Units 22:22 Sodium 134 L (137-145) mmol/L Potassium 4.5 (3.5-5.1) mmol/L Chloride 95 L (98-107) mmol/L Carbon Dioxide 26 (22-30) mmol/L BUN 33 H (7-17) mg/dL Creatinine 2.60 H (0.52-1.04) mg/dL Glucose 180 H (74-99) mg/dL Calcium 9.2 (8.4-10.2) mg/dL AST 25 (14-36) U/L ALT 23 (9-52) U/L Alkaline Phosphatase 95 (38-126) U/L Total Protein 7.3 (6.3-8.2) g/dL Albumin 4.1 (3.5-5.0) g/dL Calcium panel 07/22/18 Range/Units 22:22 Calcium 9.2 (8.4-10.2) mg/dL Albumin 4.1 (3.5-5.0) g/dL Pituitary panel 07/22/18 Range/Units 22:22 Sodium 134 L (137-145) mmol/L Potassium 4.5 (3.5-5.1) mmol/L Chloride 95 L (98-107) mmol/L Carbon Dioxide 26 (22-30) mmol/L BUN 33 H (7-17) mg/dL Creatinine 2.60 H (0.52-1.04) mg/dL Glucose 180 H (74-99) mg/dL Calcium 9.2 (8.4-10.2) mg/dL Adrenal panel 07/22/18 Range/Units 22:22 Sodium 134 L (137-145) mmol/L Potassium 4.5 (3.5-5.1) mmol/L Chloride 95 L (98-107) mmol/L Carbon Dioxide 26 (22-30) mmol/L BUN 33 H (7-17) mg/dL Creatinine 2.60 H (0.52-1.04) mg/dL Glucose 180 H (74-99) mg/dL Calcium 9.2 (8.4-10.2) mg/dL Total Bilirubin 0.5 (0.2-1.3) mg/dL AST 25 (14-36) U/L ALT 23 (9-52) U/L Alkaline Phosphatase 95 (38-126) U/L Total Protein 7.3 (6.3-8.2) g/dL Albumin 4.1 (3.5-5.0) g/dL Assessment and Plan (1) Post-operative hemorrhage Narrative/Plan: Patient with bleeding around the catheter exit site. We will control this bleeding with suture ligature at this time. The area was prepped sterilely. Using 3-0 Vicryl sutures a [id number] stitch was placed at the skin exit site. After the placement of 2 sutures no further bleeding was seen. This was checked several hours later and still no bleeding or hematoma formation. Sterile dressings were applied. Will resume diet. Patient will likely be discharged if cleared by nephrology and cardiology. Current Visit: Yes Status: Acute Code(s): [id number] - SNOMED Code(s): 499355321
[2018-07-23 11:51] VITALS: BMI 17.4
[2018-07-23] MEDS ORDERED: AMIODARONE 100 MG TAB PO SCH (12:00)
[2018-07-23] MEDS ORDERED: DEXTROSE 5% IN WATER 100 ML with AMIODARONE 150 MG IV ONE (12:15)
[2018-07-23] MEDS ORDERED: AMIODARONE 360 MG in DEXTROSE 5% IN WATER 200 ML IV ONE ×2 (12:40)
[2018-07-23] MEDS: HYDROcodone/APAP 5-325MG 1 EACH TAB PO PRN ×2 (13:03→19:55)
[2018-07-23] MEDS: amLODIPine 10 MG TAB PO SCH (13:06)
[2018-07-23] MEDS: FUROSEMIDE 40 MG TAB PO SCH ×2 (13:06→20:31)
[2018-07-23] MEDS: METOPROLOL TARTRATE 25 MG TAB PO SCH ×2 (13:07→20:31)
--- NOTE | 2018-07-23 15:34 | P.CRDCN ---
History of Present Illness Consult date: 07/23/18 History of present illness: This is a 72-year-old female being followed by Dr. Curry for paroxysmal atrial fibrillation on oral anticoagulation therapy. Patient also has chronic diastolic CHF, end-stage renal disease, hypertension, dyslipidemia, history of TIA. Patient underwent placement of peritoneal dialysis catheter. Patient was readmitted with oozing from the site of procedure. Patient was seen by Dr. Cobb surgical intervention to stop the bleeding. At this point patient doesn't have any bleeding. Does complain of abdominal pain and some shortness of breath. Patient went into atrial fibrillation with rapid ventricular response. Patient was treated with IV Cardizem. Rate is in the range of 120s. Patient was on by mouth amiodarone at home. I'm going to start her on IV amiodarone and beta jil. I'm going to stop with the Cardizem. We'll get an echo report. Further recommendation will depend upon clinical course. Patient denies any chest pain Review of Systems As per the chart Past Medical History Past Medical History: Atrial Fibrillation, Asthma, Heart Failure, COPD, CVA/TIA, Hypertension, Osteoarthritis (OA), Pneumonia, Renal Disease, Syncope Additional Past Medical History / Comment(s): CVA 2006 recent ARF had dialysis cath inserted 02-02-18 gets dialysis Thu-Thu-Thu. History of Any Multi-Drug Resistant Organisms: None Reported Past Surgical History: Tonsillectomy Additional Past Surgical History / Comment(s): ORIF rt ankle-[address], IUD removal, lumbar steroid injections, dental implants, cardioversion, dialysis cath. has ocl on l wrist, states fell 1 1/2 month ago and has a hairline fracture of wrist Past Anesthesia/Blood Transfusion Reactions: No Reported Reaction Additional Past Anesthesia/Blood Transfusion Reaction / Comment(s): Past blood transfusions - no reaction Past Psychological History: No Psychological Hx Reported Smoking Status: Former smoker Past Alcohol Use History: Heavy Additional Past Alcohol Use History / Comment(s): Patient smoked one and half packs of cigarettes per day started in 1973 and quit 2007. Patient used to drink heavily-none now Past Drug Use History: None Reported - Past Family History Mother Family Medical History: No Reported History Additional Family Medical History / Comment(s): Mother in her 80s from abdominal aortic aneurysm. Father Family Medical History: Myocardial Infarction (PA) Additional Family Medical History / Comment(s): Father at age 52 from acute PA. Medications and Allergies Home Medications Medication Instructions Recorded Confirmed Type Sertraline HCl [Zoloft] 50 mg PO HS 04/30/17 07/22/18 History Apixaban [Eliquis] 2.5 mg PO BID #60 tablet 02/06/18 07/22/18 Rx Albuterol Inhaler [Ventolin Hfa 2 puff INHALATION RT-Q4H PRN 05/31/18 07/22/18 History Inhaler] Calcium Acetate [PhosLo] 667 mg PO AC-TID 05/31/18 07/22/18 History Zolpidem [Ambien] 5 mg PO HS 05/31/18 07/22/18 History Furosemide [Lasix] 80 mg PO BID 06/24/18 07/22/18 History Metoprolol Tartrate [Lopressor] 25 mg PO BID 07/08/18 07/22/18 History hydrALAZINE HCL [Apresoline] 100 mg PO TID 07/18/18 07/22/18 History Amiodarone [Cordarone] 100 mg PO 1200 07/20/18 07/22/18 History amLODIPine [Norvasc] 10 mg PO 1200 07/20/18 07/22/18 History Hydrocodone/Acetaminophen [[place] 1 tab PO Q6HR PRN 3 Days #5 tab 07/22/18 07/22/18 Rx 5-325] Allergies Allergy/AdvReac Type Severity Reaction Status Date / Time No Known Allergies Allergy Verified 07/22/18 22:28 Physical Exam Vitals: Vital Signs Temp Pulse Pulse Resp BP BP Pulse Ox 07/23/18 13:27 127 H 100 07/23/18 13:17 114 H 07/23/18 12:00 18 07/23/18 11:30 97.5 F L 120 H 18 152/77 97 07/23/18 08:00 97.2 F L 115 H 18 147/92 100 07/23/18 04:45 98.2 F 128 H 18 172/92 98 07/23/18 03:24 110 H 07/23/18 03:17 110 H 07/23/18 02:27 97.8 F 116 H 18 165/93 100 07/23/18 01:24 111 H 16 172/99 100 07/23/18 00:40 124 H 162/124 98 07/22/18 23:40 123 H 187/106 100 07/22/18 23:20 111 H 177/121 100 07/22/18 23:03 97.9 F 07/22/18 23:00 110 H 172/121 100 07/22/18 22:50 105 H 94 L 07/22/18 22:48 120 H 98 07/22/18 22:03 179/121 07/22/18 21:58 98.1 F 129 H 14 100 Intake and Output 07/23/18 07/23/18 07/23/18 06:59 14:59 22:59 Intake Total 50 360 Balance 50 360 Intake: Intake, IV Titration 50 Amount Diltiazem 125 mg In 50 Sodium Chloride 0.9% 100 ml @ 10 MG/HR 10 mls/hr IV .[id number] [facility] Rx#: [id number] Oral 360 Other: Voiding Method Indwelling Catheter Indwelling Catheter Weight 47.5 kg 47.5 kg GENERAL EXAM: Patient is alert and oriented and doesn't appear to be in any [place] distress, complains of pain HEENT: Normocephalic. Normal reaction of pupils, equal size, normal range of extraocular motion. No erythema or exudates in the throat. NECK: No masses, no nuchal rigidity. CHEST: No chest wall deformity. LUNGS: Equal air entry with no crackles or wheeze. HEART: Tachycardic ABDOMEN: Status post placement of the dialysis catheter with a dressing. No active bleeding noted SKIN: No rashes CENTRAL NERVOUS SYSTEM: No focal deficits. EXTREMITIES: No cyanosis, clubbing or edema. Results 07/23/18 06:02 07/22/18 22:22 Cardiac Enzymes 07/22/18 Range/Units 22:22 AST 25 (14-36) U/L Coagulation 07/22/18 Range/Units 22:22 PT 9.7 (9.0-12.0) sec CBC 07/22/18 07/23/18 Range/Units 22:22 06:02 WBC 6.0 6.8 (3.8-10.6) k/uL RBC 3.77 L 3.04 L (3.80-5.40) m/uL Hgb 11.6 9.3 L D (11.4-16.0) gm/dL Hct 36.7 29.6 L (34.0-46.0) % Plt Count 300 305 (150-450) k/uL Comprehensive Metabolic Panel 07/22/18 Range/Units 22:22 Sodium 134 L (137-145) mmol/L Potassium 4.5 (3.5-5.1) mmol/L Chloride 95 L (98-107) mmol/L Carbon Dioxide 26 (22-30) mmol/L BUN 33 H (7-17) mg/dL Creatinine 2.60 H (0.52-1.04) mg/dL Glucose 180 H (74-99) mg/dL Calcium 9.2 (8.4-10.2) mg/dL AST 25 (14-36) U/L ALT 23 (9-52) U/L Alkaline Phosphatase 95 (38-126) U/L Total Protein 7.3 (6.3-8.2) g/dL Albumin 4.1 (3.5-5.0) g/dL Current Medications Generic Name Dose Route Start Last Admin Trade Name Freq PRN Reason Stop Dose Admin Hydrocodone Bitart/Acetaminophen 1 each 07/23/18 11:28 07/23/18 13:03 [place] 5-325 PO 1 each Q4HR PRN Administration Pain Albuterol Sulfate 2.5 mg 07/22/18 23:15 07/23/18 13:17 Ventolin Nebulized INHALATION 2.5 mg RT-Q4H PRN Administration Shortness Of Breath Amiodarone HCl 100 mg 07/25/18 09:00 Cordarone PO DAILY [facility] Amlodipine Besylate 10 mg 07/23/18 12:00 07/23/18 13:06 Norvasc PO 10 mg 1200 SIMON Administration Apixaban 2.5 mg 07/24/18 09:00 Eliquis PO BID SIMON Furosemide 80 mg 07/23/18 09:00 07/23/18 13:06 Lasix PO 80 mg BID SIMON Administration Hydralazine HCl 100 mg 07/23/18 09:00 07/23/18 09:31 Apresoline PO 100 mg TID SIMON Administration Amiodarone HCl 360 mg/ 200 mls @ 33.333 mls/hr 07/23/18 12:40 Dextrose/Water IV 07/23/18 18:39 .Q6H ONE Protocol 1 MG/MIN Amiodarone HCl 300 mg/ 250 mls @ 25 mls/hr 07/23/18 18:30 Dextrose/Water IV 07/24/18 12:29 .Q10H [facility]ON Protocol 0.5 MG/MIN Metoprolol Tartrate 25 mg 07/23/18 12:15 07/23/18 13:07 Lopressor PO 25 mg BID SIMON Administration Naloxone HCl 0.2 mg 07/22/18 23:14 Narcan IV Q2M PRN Opioid Reversal Intake and Output 07/23/18 07/23/18 07/23/18 06:59 14:59 22:59 Intake Total 50 360 Balance 50 360 Intake: Intake, IV Titration 50 Amount Diltiazem 125 mg In 50 Sodium Chloride 0.9% 100 ml @ 10 MG/HR 10 mls/hr IV .[id number] [facility] Rx#: [id number] Oral 360 Other: Voiding Method Indwelling Catheter Indwelling Catheter Weight 47.5 kg 47.5 kg Patient Weight 07/24/18 06:59 Weight 47.5 kg 07/23/18 06:02 07/22/18 22:22 EKG Interpretations (text) Atrial fibrillation with rapid ventricular response Assessment and Plan (1) Paroxysmal atrial fibrillation with RVR Current Visit: Yes Status: Acute Code(s): I48.0 - PAROXYSMAL ATRIAL FIBRILLATION SNOMED Code(s): 821069372 (2) CHF (congestive heart failure) Current Visit: No Status: Acute Code(s): I50.9 - HEART FAILURE, UNSPECIFIED SNOMED Code(s): 01264304 (3) COPD (chronic obstructive pulmonary disease) Current Visit: No Status: Acute Code(s): J44.9 - CHRONIC OBSTRUCTIVE PULMONARY DISEASE, UNSPECIFIED SNOMED Code(s): 96282647 Plan: Start on IV amiodarone. Discontinue IV Cardizem. Start by mouth beta jil. Resume anti-coagulation therapy when cleared by the surgeon.
[2018-07-23] MEDS ORDERED: MELATONIN 3 MG TABLET PO PRN (19:17)
[2018-07-23] MEDS ORDERED: LACTULOSE 20 GM/30 ML CUP PO PRN (19:17)
[2018-07-23] MEDS ORDERED: MAGNESIUM HYDROXIDE 2,400 MG/10 ML CUP PO PRN (19:17)
[2018-07-23] MEDS ORDERED: ACETAMINOPHEN TAB 325 MG TAB PO PRN (19:17)
[2018-07-23] MEDS ORDERED: ONDANSETRON 4 MG/2 ML VIAL IVP PRN (19:17)
[2018-07-23] MEDS ORDERED: CALCIUM CARBONATE 500 MG CHEWABLE PO PRN (19:17)
[2018-07-23] MEDS: AMIODARONE 300 MG in DEXTROSE 5% IN WATER 250 ML IV SCH ×2 (19:56)
[2018-07-23] MEDS: SERTRALINE 50 MG TAB PO SCH (20:31)
--- NOTE | 2018-07-23 23:28 | CONS ---
CONSULTATION REASON FOR CONSULT: End-stage renal disease. HISTORY OF PRESENT ILLNESS: Patient is a 72-year-old female with end-stage renal disease, on hemodialysis on a Thursday, Thursday, Thursday schedule at [facility]. She was admitted with bleeding noted after the PD catheter placement yesterday. The patient was sent to the hospital from the [facility] as her dressing was saturated with blood. The patient denies any other symptoms of chest pains or shortness of breath. There is no nausea or vomiting. PAST MEDICAL HISTORY: End-stage renal disease, coronary artery disease, history of CHF, history of fluid overload at the time. A previous history of atrial fibrillation, CVA/TIA. PAST SURGICAL HISTORY: Tonsillectomy, ORIF right ankle, IUD placement and removal, dental implants, cardioversion, dialysis catheter placement, and recent PD catheter placement 2 days ago. SOCIAL HISTORY: Patient is a former smoker. No history of drug abuse. She did have a history of heavy alcohol consumption as well. MEDICATIONS: Prior to admission include Zoloft, Eliquis, PhosLo, Ambien, Lasix, Lopressor, hydralazine, Cordarone Norvasc, [place]. ALLERGIES: None. PHYSICAL EXAMINATION: Patient is comfortable, awake, alert, oriented x3. She is not in any acute distress. Blood pressure was 147/92, heart rate of 110 per minute. Patient is afebrile. Examination of the heart S1, S2. Examination lungs bilateral breath sounds are heard. Abdomen is soft, nontender. Examination lower extremities shows no evidence of edema. There is bleeding noted and the site of the PD catheter bleeding. LAB: Show hemoglobin 9.3, sodium 134, potassium 4.5, BUN 33, serum creatinine 2.6. ASSESSMENT: 1. End-stage renal disease, on hemodialysis on a Thursday, Thursday, Thursday schedule. 2. Bleeding from site of the PD catheter. This will likely require suture. I will give a dose of DDAVP as well. 3. History of congestive heart failure and fluid overload. 4. Hypertension, partly volume sensitive. 5. Chronic kidney disease mineral bone disorder. PLAN: Continue PhosLo. Continue current medication. The patient will be evaluated by Dr. Wadsworth for possible placement of a suture around the catheter. We will also arrange for hemodialysis today and UF only tomorrow. Thank you for this consultation. We will continue to follow the patient with you during her hospitalization. MMVINCENT / IJN: [id number] /
--- NOTE | 2018-07-23 23:58 | CONS ---
CONSULTATION DATE OF CONSULTATION: 07/23/2018. REASON FOR CONSULTATION: Medical management, requested by Dr. Wadsworth. HISTORY OF PRESENTING COMPLAINT: This is a pleasant 72-year-old patient with rather extensive medical history whose chronic stable medical conditions include hypertensive heart disease, COPD, end-stage kidney disease on hemodialysis, chronic rheumatoid arthritis, hyperlipidemia, anxiety, depression, mineral bone disease, bilateral carotid disease. The patient was just discharged from the hospital of fluid overload did get ultrafiltration. The patient yesterday had a peritoneal catheter placed by Dr. Khang Wadsworth and went home well. At home patient's dressing started getting soaked with blood and patient decided to come back to the ER. Pressure dressing did not help and patient got admitted. Also patient's atrial fibrillation became uncontrolled and patient had to be started on IV Cardizem drip. The patient did feel weak, tired, run down. No chest pain, no palpitation. Admitted for the same. Earlier today patient was dialyzed. It is noted that the patient has been on Eliquis. REVIEW OF SYSTEMS: CONSTITUTIONAL: Tired. HEENT: Decreased hearing. RESPIRATORY: None. CARDIOVASCULAR: As above. GASTROINTESTINAL: None. GENITOURINARY: None. MUSCULOSKELETAL: Pain in the joints, DERMATOLOGIC: As above. HEMATOLOGIC: As above. PSYCHIATRY: Anxious. NEUROLOGICAL: None. PAST MEDICAL HISTORY: Atrial fibrillation, congestive heart failure, COPD, stroke, hypertension, osteoarthritis, end-stage kidney disease. PAST SURGICAL HISTORY: Tonsillectomy, ORIF of the right ankle with screws, lumbar steroid injections, dental implants, cardioversion. SOCIAL HISTORY: Patient smoked a pack and a half from 1974 until 2007. Did drink heavily alcohol in the past. . FAMILY HISTORY: Mother from abdominal aortic aneurysm. HOME MEDICATIONS: 1. Hydralazine 100 mg t.i.d. 2. Norvasc 10 mg at noon. 3. Ambien 5 mg at bedtime. 4. Zoloft 50 mg at bedtime. 5. Lopressor 25 mg b.i.d. 6. [place] 5 one tablet every 6 hours p.r.n. 7. Lasix 80 mg b.i.d. 8. PhosLo 1 tablet with meals t.i.d. 9. Eliquis 2.5 p.o. b.i.d. 10.Amiodarone 100 mg at noon. 11.Ventolin HFA 2 puffs every 4 hours p.r.n. ALLERGIES: None. PHYSICAL EXAMINATION: VITAL SIGNS: Vital signs on presentation, temperature 98.1, pulse 129, respiratory rate 14, blood pressure up to 179/121, pulse 100 percent. GENERAL APPEARANCE: Thin built, lying in bed, awake. EYES: Pupils equal. Conjunctivae pale. HEENT: External appearance of nose and ears normal. Oral cavity normal. NECK: JVD not raised. Mass not palpable. Respiratory effort normal. LUNGS: Diminished breath sounds. CARDIOVASCULAR: 1st and 2nd sounds normal. No edema. ABDOMEN: Soft, nontender. Liver and spleen not palpable. LYMPHATIC: No lymph nodes palpable in the neck or axillae. PSYCHIATRY: Alert and oriented x3. Mood and affect normal. NEUROLOGICAL: Pupils equal. Cranial nerves grossly intact. Power and sensation grossly intact. ABDOMEN: The patient has got a binder in place. INVESTIGATIONS: White count 6.8, hemoglobin 9.3, hemoglobin was 11.6 two days ago. The patient by chemistry from 07/22/2018 showed potassium 4.5, BUN 33, creatinine 2.60. ASSESSMENT: 1. Acute bleeding from the peritoneal dialysis catheter placement at the abdominal site. The patient who has been on Eliquis. 2. Acute blood loss anemia from the hemodialysis catheter site. Hemoglobin has gone from 11.6 to 9.3. 3. Persistent atrial fibrillation with rapid ventricular rate uncontrolled. 4. Hypertensive heart disease. 5. Chronic obstructive pulmonary disease in an ex-smoker. 6. End-stage kidney disease on hemodialysis Thursday, Thursday, Thursday. 7. Chronic rheumatoid arthritis. 8. Hyperlipidemia. 9. Anxiety and depression, not otherwise specified. 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 11.Anemia of chronic kidney disease. 12.Bilateral carotid stenosis. PLAN: Home medications are resume. Patient's Eliquis could be held if felt okay with Cardiology. The patient is put on a Cardizem drip. The patient has already been on amiodarone at home. Care was discussed with the patient and . We will repeat a CBC in the morning. Thank you Dr. Wadsworth. MMODL / IJN: [id number] /
[2018-07-24] MEDS: HYDROcodone/APAP 5-325MG 1 EACH TAB PO PRN ×6 (00:02→20:56)
[2018-07-24] MEDS: ZOLPIDEM 5 MG TAB PO SCH ×2 (00:09→22:37)
[2018-07-24] MEDS: AMIODARONE 300 MG in DEXTROSE 5% IN WATER 250 ML IV SCH ×2 (04:18)
[2018-07-24] MEDS: CALCIUM ACETATE 667 MG CAP PO SCH ×3 (06:34→17:22)
[2018-07-24 07:08] LABS: Anisocytosis Slight; Basophils % (A) 1 %; Eosinophils # (A) 0.1 k/uL (0-0.7); Eosinophils % (A) 1 %; HCT 25.9 % (34.0-46.0); Hypochromasia Slight; Lymphocytes % (A) 13 %; MCH 30.4 pg (25.0-35.0); MCHC 30.9 g/dL (31.0-37.0); MCV 98.4 fL (80.0-100.0); Macrocytosis Slight; Mean Platelet Volume 7.2; Monocytes # (A) 0.5 k/uL (0-1.0); Monocytes % (A) 7 %; Neutrophils % (A) 76 %; Platelet Count 260 k/uL (150-450); RBC 2.63 m/uL (3.80-5.40); RDW 16.9 % (11.5-15.5); WBC 7.9 k/uL (3.8-10.6)
[2018-07-24] MEDS: ALBUTEROL NEBULIZED 2.5 MG/3 ML INHALATION PRN ×4 (07:11→19:46)
[2018-07-24] MEDS: APIXABAN 2.5 MG TABLET PO SCH ×2 (08:18→20:56)
[2018-07-24] MEDS: FUROSEMIDE 40 MG TAB PO SCH ×2 (08:19→20:56)
[2018-07-24] MEDS: METOPROLOL TARTRATE 25 MG TAB PO SCH ×2 (08:19→20:56)
[2018-07-24] MEDS: hydrALAZINE HCL 50 MG TAB PO SCH ×3 (08:19→22:37)
--- NOTE | 2018-07-24 09:10 | P.PN ---
Progress Note - Text Progress Note Date: 07/24/18 The patient's pain is improved. There is been no evidence of repeat bleeding. On exam her vital signs are stable. CAPD catheter site is clean. Patiently discharged home. She'll follow-up Dr. Wadsworth next week.
--- NOTE | 2018-07-24 09:24 | P.PN ---
Subjective Patient is seen in follow-up for end-stage renal disease. She is maintained on hemodialysis on a Thursday schedule for a permacath. She had a peritoneal dialysis catheter placed recently and was noted to have oozing from the catheter site and came to the hospital. The bleeding seems to have resolved. She did not receive hemodialysis yesterday. Denies any active chest pain or shortness of breath. Vital signs are stable. General: The patient appeared well nourished and normally developed. HEENT: Head exam is unremarkable. Neck is without jugular venous distension. LUNGS: Breath sounds decreased. HEART: Rate and Rhythm are regular. First and second heart sounds normal. No murmurs, rubs or gallops. ABDOMEN: Abdominal exam reveals normal bowel sounds. Non-tender and non- distended. No evidence of peritonitis. EXTREMITITES: No clubbing, cyanosis, or edema. Objective - Vital Signs Vital signs: Vital Signs Temp 98.2 F 07/24/18 04:00 Pulse 102 H 07/24/18 07:24 Resp 17 07/24/18 04:00 BP 108/73 07/24/18 04:00 Pulse Ox 100 07/24/18 04:00 Intake & Output 07/23/18 07/24/18 07/24/18 18:59 06:59 18:59 Intake Total 720 449.166 Output Total 200 Balance 720 249.166 Weight 47.5 kg 58 kg Intake: Intake, IV Titration 209.166 Amount Amiodarone 300 mg In 209.166 Dextrose 5% in Water 250 ml @ 0.5 MG/MIN 25 mls/hr IV .Q10H [facility] Rx#: [id number] Oral 720 240 Output: Urine 200 Other: Voiding Method Indwelling Catheter Indwelling Catheter # Voids 2 - Labs CBC & Chem 7: 07/24/18 06:02 07/22/18 22:22 Labs: Abnormal Lab Results - Last 24 Hours (Table) 07/24/18 Range/Units 06:02 RBC 2.63 L (3.80-5.40) m/uL Hgb 8.0 L (11.4-16.0) gm/dL Hct 25.9 L (34.0-46.0) % MCHC 30.9 L (31.0-37.0) g/dL RDW 16.9 H (11.5-15.5) % Assessment and Plan Plan: Assessment: 1. End-stage renal disease maintained on hemodialysis on a Thursday schedule. 2. Status post peritoneal dialysis catheter placement. Bleeding seems to have resolved. Surgery following. Patient did receive a dose of DDAVP yesterday. 3. Diastolic CHF. 4. Anemia of chronic kidney disease. 5. Chronic kidney disease mineral bone disease maintained on PhosLo. 6. Irritable fibrillation with RVR maintained on amiodarone drip. 7. Hypertension with chronic kidney disease. Controlled. Plan: Hemodialysis today. Add Aranesp.
[2018-07-24] MEDS ORDERED: DARBEPOETIN ALFA 40 MCG/0.4 ML SYRINGE SQ SCH (12:00)
[2018-07-24] MEDS: amLODIPine 10 MG TAB PO SCH (15:32)
[2018-07-24] MEDS: AMIODARONE 200 MG TAB PO SCH ×2 (17:22→20:56)
--- NOTE | 2018-07-24 17:22 | PN ---
PROGRESS NOTE DATE OF SERVICE: 07/24/2018 PRESENTING COMPLAINT: Increased heart rate. INTERVAL HISTORY: This patient presented with bleeding from the peritoneal dialysis catheter site that has now been controlled. Also heart rate has been uncontrolled. Remains in atrial fibrillation at rest and anywhere from one teens to 130, being followed by Cardiology. The patient is tolerating a diet. Does feel tired. REVIEW OF SYSTEMS: Done for constitutional, cardiovascular, GI, pulmonary; relevant findings as above. CURRENT MEDICATIONS: Current medications are reviewed that include p.o. Cordarone, p.o. Lasix, Lopressor 25 mg twice a day. PHYSICAL EXAMINATION: On examination, temperature 97.2, pulse 110 to 130, respiration 16, blood pressure 141/84. GENERAL APPEARANCE: Lying in bed, a bit tired appearing. EYES: Pupils equal. Conjunctivae normal. NECK: JVD not raised. Mass not palpable. RESPIRATORY: Effort normal. LUNGS: Diminished breath sounds. CARDIOVASCULAR: Heart sounds irregular with no edema. ABDOMEN: Soft, nontender. Hemodialysis catheter in place. Liver and spleen not palpable. PSYCHIATRY: Alert and oriented x3. Mood and affect normal. INVESTIGATIONS: White count 7.9, hemoglobin 8. ASSESSMENT: 1. Acute bleeding from peritoneal dialysis catheter site at the abdominal site. The patient has been on Eliquis. 2. Acute blood loss anemia from above. Hemoglobin did drop from 11.6 down to 8. 3. Persistent atrial fibrillation with rapid ventricular rate, still somewhat uncontrolled at rest. 4. Hypertensive heart disease. 5. Chronic obstructive pulmonary disease in an ex-smoker. 6. End-stage kidney disease on hemodialysis Thursday, Thursday and Thursday. 7. Chronic rheumatoid arthritis. 8. Hyperlipidemia. 9. Anxiety and depression, not otherwise specified. 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 11.Anemia of chronic kidney disease. 12.Bilateral carotid stenosis. PLAN: Continue current medication and treatment plan. Follow with Cardiology. If the patient drops her blood pressure or hemoglobin drops significantly more, patient may require some blood transfusion. MMODL / IJN: [id number] /
--- NOTE | 2018-07-24 18:49 | P.PN ---
Subjective Progress Note Date: 07/24/18 This 72-year-old female is admitted with of oozing around the site of the peritoneal dialysis catheter. We will oozing is stopped now. Patient is getting dialysis. An abdominal pain has improved. Patient went into persistent atrial fibrillation with rapid ventricular response. Patient is on IV amioda seamus. We will switch to by mouth amiodarone and also add beta jil. Continue rest of the medication Objective - Vital Signs Vital signs: Vital Signs Temp 97.2 F L 07/24/18 12:00 Pulse 83 07/24/18 15:42 Resp 16 07/24/18 15:42 BP 141/84 07/24/18 12:00 Pulse Ox 99 07/24/18 08:00 Intake & Output 07/23/18 07/24/18 07/24/18 18:59 06:59 18:59 Intake Total 720 449.166 380 Output Total 200 450 Balance 720 249.166 -70 Weight 47.5 kg 58 kg Intake: Intake, IV Titration 209.166 Amount Amiodarone 300 mg In 209.166 Dextrose 5% in Water 250 ml @ 0.5 MG/MIN 25 mls/hr IV .Q10H [facility] Rx#: [id number] Oral 720 240 380 Output: Urine 200 450 Other: Voiding Method Indwelling Catheter Indwelling Catheter Indwelling Catheter # Voids 2 - Exam GENERAL EXAM: Patient is alert and oriented and doesn't appear to be in any acute distress HEENT: Normocephalic. Normal reaction of pupils, equal size, normal range of extraocular motion. No erythema or exudates in the throat. NECK: No masses, no nuchal rigidity. CHEST: No chest wall deformity. LUNGS: Equal air entry with no crackles or wheeze. HEART: S1 and S2 normal with irregular heart rhythm ABDOMEN: No hepatosplenomegaly, normal bowel sounds, no guarding or rigidity. SKIN: No rashes CENTRAL NERVOUS SYSTEM: No focal deficits. EXTREMITIES: No cyanosis, clubbing or edema. - Labs CBC & Chem 7: 07/24/18 06:02 07/22/18 22:22 Labs: Abnormal Lab Results - Last 24 Hours (Table) 07/24/18 Range/Units 06:02 RBC 2.63 L (3.80-5.40) m/uL Hgb 8.0 L (11.4-16.0) gm/dL Hct 25.9 L (34.0-46.0) % MCHC 30.9 L (31.0-37.0) g/dL RDW 16.9 H (11.5-15.5) % Assessment and Plan (1) Paroxysmal atrial fibrillation with RVR Current Visit: Yes Status: Acute Code(s): I48.0 - PAROXYSMAL ATRIAL FIBRILLATION SNOMED Code(s): 195482356 (2) CHF (congestive heart failure) Current Visit: No Status: Acute Code(s): I50.9 - HEART FAILURE, UNSPECIFIED SNOMED Code(s): 68044711 (3) COPD (chronic obstructive pulmonary disease) Current Visit: No Status: Acute Code(s): J44.9 - CHRONIC OBSTRUCTIVE PULMONARY DISEASE, UNSPECIFIED SNOMED Code(s): 16871328 Plan: Continue with by mouth amiodarone. Add beta jil. He'll continue to monitor.
[2018-07-24] MEDS: SERTRALINE 50 MG TAB PO SCH (20:56)
[2018-07-25] MEDS: HYDROcodone/APAP 5-325MG 1 EACH TAB PO PRN ×4 (04:24→20:56)
[2018-07-25] MEDS: CALCIUM ACETATE 667 MG CAP PO SCH ×3 (07:01→16:28)
[2018-07-25 07:24] LABS: Anisocytosis Slight; Basophils # (A) 0.1 k/uL (0-0.2); Basophils % (A) 1 %; Eosinophils # (A) 0.2 k/uL (0-0.7); Eosinophils % (A) 3 %; HCT 27.4 % (34.0-46.0); HGB 8.5 gm/dL (11.4-16.0); Hypochromasia Moderate; Lymphocytes # (A) 0.8 k/uL (1.0-4.8); Lymphocytes % (A) 10 %; MCH 30.4 pg (25.0-35.0); MCHC 31.1 g/dL (31.0-37.0); MCV 97.9 fL (80.0-100.0); Macrocytosis Slight; Mean Platelet Volume 7.1; Monocytes # (A) 0.6 k/uL (0-1.0); Monocytes % (A) 8 %; Neutrophils # (A) 6.1 k/uL (1.3-7.7); Neutrophils % (A) 77 %; Platelet Count 281 k/uL (150-450); RDW 17.1 % (11.5-15.5)
[2018-07-25] MEDS: APIXABAN 2.5 MG TABLET PO SCH ×2 (08:13→19:57)
[2018-07-25] MEDS: FUROSEMIDE 40 MG TAB PO SCH ×2 (08:13→19:56)
[2018-07-25] MEDS: METOPROLOL TARTRATE 25 MG TAB PO SCH (08:13)
[2018-07-25] MEDS: AMIODARONE 200 MG TAB PO SCH ×3 (08:13→20:59)
[2018-07-25] MEDS: hydrALAZINE HCL 50 MG TAB PO SCH ×3 (08:13→20:59)
[2018-07-25] MEDS: ALBUTEROL NEBULIZED 2.5 MG/3 ML INHALATION PRN ×4 (08:30→20:19)
[2018-07-25] MEDS ORDERED: AMIODARONE 100 MG TAB PO SCH (09:00)
--- NOTE | 2018-07-25 10:14 | P.PN ---
Subjective Patient is seen in follow-up for end-stage renal disease. She is maintained on hemodialysis on a Thursday schedule for a permacath. She had a peritoneal dialysis catheter placed recently and was noted to have oozing from the catheter site and came to the hospital. The bleeding seems to have resolved. She received hemodialysis on Thursday and Thursday. No active complaints at this time. Vital signs are stable. General: The patient appeared well nourished and normally developed. HEENT: Head exam is unremarkable. Neck is without jugular venous distension. LUNGS: Breath sounds decreased. HEART: Rate and Rhythm are regular. First and second heart sounds normal. No murmurs, rubs or gallops. ABDOMEN: Abdominal exam reveals normal bowel sounds. Non-tender and non- distended. No evidence of peritonitis. EXTREMITITES: No clubbing, cyanosis, or edema. Objective - Vital Signs Vital signs: Vital Signs Temp 98.4 F 07/25/18 08:00 Pulse 110 H 07/25/18 08:43 Resp 16 07/25/18 08:00 BP 145/77 07/25/18 08:00 Pulse Ox 96 07/25/18 08:31 Intake & Output 07/24/18 07/25/18 07/25/18 17:59 06:59 18:59 Intake Total 180 Output Total Balance 180 Weight Intake: IV 0.9 Oral 180 Output: Urine Other: Voiding Method Indwelling Catheter - Labs CBC & Chem 7: 07/25/18 06:26 07/22/18 22:22 Labs: Abnormal Lab Results - Last 24 Hours (Table) 07/25/18 Range/Units 06:26 RBC 2.80 L (3.80-5.40) m/uL Hgb 8.5 L (11.4-16.0) gm/dL Hct 27.4 L (34.0-46.0) % RDW 17.1 H (11.5-15.5) % Lymphocytes # 0.8 L (1.0-4.8) k/uL Assessment and Plan Plan: Assessment: 1. End-stage renal disease maintained on hemodialysis on a Thursday schedule. 2. Status post peritoneal dialysis catheter placement. Bleeding seems to have resolved. Surgery following. Patient did receive a dose of DDAVP yesterday. 3. Diastolic CHF. 4. Anemia of chronic kidney disease. 5. Chronic kidney disease mineral bone disease maintained on PhosLo. 6. Atrial fibrillation with RVR maintained on amiodarone. 7. Hypertension with chronic kidney disease. Controlled. Plan: Hemodialysis tomorrow.
[2018-07-25] MEDS ORDERED: METOPROLOL TARTRATE 25 MG TAB PO STA (11:00)
[2018-07-25] MEDS: amLODIPine 10 MG TAB PO SCH (11:32)
--- NOTE | 2018-07-25 11:42 | P.PN ---
Progress Note - Text Progress Note Date: 07/25/18 The patient is resting comfortably in her bed. Her abdominal pain is much improved. Fairly she is being dialyzed tomorrow prior to discharge. On exam her vital signs are stable. Her abdomen soft. There is no further bleeding at the CAPD catheter site. Patient will be discharged home tomorrow after dialysis.
--- NOTE | 2018-07-25 14:30 | P.PN ---
Subjective This is a pleasant 72-year-old female presented to the hospital secondary to oozing around the site of her peritoneal dialysis catheter. She also went into atrial fibrillation with rapid ventricular response and was initiated on amiodarone and beta jil therapy. She is seen and examined resting comfortably in bed. She continues to remain in atrial fibrillation with mildly uncontrolled ventricular rate. Blood pressure 117/79 heart rate 110. Laboratory data reviewed, hemoglobin 8.5, platelets 281. She denies symptoms of chest pain, shortness of breath, dizziness or palpitations. Nephrology plan is to keep her in the hospital tomorrow so she can undergo dialysis. GENERAL: Well-appearing, well-nourished and in no acute distress. NECK: Supple without JVD or thyromegaly. LUNGS: Breath sounds clear to auscultation bilaterally. Respiration equal and unlabored. No wheezes, rales or rhonchi. HEART: Irregular rate and rhythm without murmurs, rubs or gallops. S1 and S2 heard. EXTREMITIES: Normal range of motion, no edema. No clubbing or cyanosis. Peripheral pulses intact. ASSESSMENT Paroxysmal atrial fibrillation with rapid ventricular response Acute on chronic diastolic heart failure, improved. EF 55-60%. COPD End-stage renal disease maintained on hemodialysis Hypertension PLAN Increase Lopressor to 50 mg twice a day given additional dose of 25 mg now. The possibility of outpatient cardioversion has been discussed with the patient. We will continue to monitor and make recommendations accordingly. Nurse Practitioner note has been reviewed, I agree with a documented findings and plan of care. Patient was seen and examined. Objective - Vital Signs Vital signs: Vital Signs Temp 98.2 F 07/25/18 12:00 Pulse 98 07/25/18 12:51 Resp 16 07/25/18 12:00 BP 117/79 07/25/18 12:00 Pulse Ox 98 07/25/18 12:00 Intake & Output 07/24/18 07/25/18 07/25/18 17:59 06:59 18:59 Intake Total 420 Output Total 500 Balance -80 Weight Intake: IV 0.9 Oral 420 Output: Urine 500 Other: Voiding Method Indwelling Catheter - Labs CBC & Chem 7: 07/25/18 06:26 07/22/18 22:22 Labs: Abnormal Lab Results - Last 24 Hours (Table) 07/25/18 Range/Units 06:26 RBC 2.80 L (3.80-5.40) m/uL Hgb 8.5 L (11.4-16.0) gm/dL Hct 27.4 L (34.0-46.0) % RDW 17.1 H (11.5-15.5) % Lymphocytes # 0.8 L (1.0-4.8) k/uL
--- NOTE | 2018-07-25 17:50 | PN ---
PROGRESS NOTE DATE OF SERVICE: July 25, 2018. PRESENTING COMPLAINT: Increased heart rate. INTERVAL HISTORY: The patient presented with bleeding from the peritoneal dialysis catheter placement site that is not controlled. Did have some blood loss anemia. Heart rate has been running above the 100's. Cardiology did bump up the Lopressor today. The patient is due for dialysis tomorrow. Feels a bit tired. Lying in bed. Did tolerate a diet. REVIEW OF SYSTEMS: Done for constitutional, cardiovascular, GI, pulmonary; relevant findings as above. CURRENT MEDICATIONS: Reviewed that include Lopressor 50 mg b.i.d. and p.o. Cordarone. PHYSICAL EXAMINATION: VITAL SIGNS: Temperature 98.2, pulse 110, respiration 16, blood pressure 117/79, pulse ox 98% on room air. GENERAL APPEARANCE: Lying in bed, awake. EYES: Pupils equal. Conjunctivae pale. NECK: JVD not raised. Mass not palpable. RESPIRATORY: Effort increased. LUNGS: Diminished breath sounds. CARDIOVASCULAR: Heart sounds irregular. No edema. ABDOMEN: Soft and nontender. Hemodialysis catheter in place. PSYCHIATRY: Alert and oriented x3. Mood and affect normal. INVESTIGATIONS: White count 18, hemoglobin 8.5. ASSESSMENT: 1. Acute bleeding from peritoneal dialysis catheter site now that has corrected. 2. Acute blood loss anemia from above. Hemoglobin did drop from 11.6 down to 8. 3. Persistent atrial flutter fibrillation with rate uncontrolled. Dose of beta jil increased today. 4. Hypertensive heart disease. 5. Chronic obstructive pulmonary disease in an ex-smoker. 6. End-stage kidney disease on hemodialysis Thursday, Thursday and Thursday. 7. Chronic rheumatoid arthritis. 8. Hyperlipidemia. 9. Anxiety and depression, not otherwise specified. 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 11.Anemia of chronic kidney disease. 12.Bilateral carotid stenosis. PLAN: Dose of Lopressor was increased. We will see how the patient's heart rate does. Hemoglobin has been stable. Patient due for dialysis tomorrow. Hopefully can be discharged after that. MMODL / IJN: [id number] /
[2018-07-25] MEDS: SERTRALINE 50 MG TAB PO SCH (19:56)
[2018-07-25] MEDS ORDERED: METOPROLOL TARTRATE 50 MG TAB PO SCH (21:00)
[2018-07-25] MEDS: ZOLPIDEM 5 MG TAB PO SCH (23:22)
[2018-07-26] MEDS: HYDROcodone/APAP 5-325MG 1 EACH TAB PO PRN ×2 (02:48→06:46)
[2018-07-26 05:58] VITALS: TEMP 98.8
[2018-07-26] MEDS: CALCIUM ACETATE 667 MG CAP PO SCH ×2 (06:47→14:46)
[2018-07-26] MEDS: ALBUTEROL NEBULIZED 2.5 MG/3 ML INHALATION PRN (07:48)
[2018-07-26 10:24] VITALS: RESP 16
--- NOTE | 2018-07-26 13:38 | CDI ---
Documentation Clarification Form Date: 07/26/2018 1:02:41 PM From: Sharita Dinh RN CCDS Admit Date: 07/23/2018 9:33:00 AM Patient Name: Brittany Levin Visit Number: [id number] Discharge Date: ATTENTION: The Clinical Documentation Specialists (CDI) and [facility] Coding Staff appreciate your assistance in clarifying documentation. Please respond to the clarification below the line at the bottom and electronically sign. The CDI & [facility] Coding staff will review the response and follow-up if needed. Please note: Queries are made part of the Legal Health Record. If you have any questions, please contact the author of this message via ITS. Dr. Khang Wadsworth Conflicting documentation has been found in the medical record: Cardiology Consult Paroxysmal Atrial Fibrillation with RVR Internal Medicine Consult Persistent Atrial Fibrillation with RVR History/Risk Factors: 72 year old female presents to the ED with bleeding from Peritoneal Catheter site. Medical history Atrial Fibrillation, Diastolic Heart Failure, Clinical Indicators: 07/22/2018 EKG Atrial Fibrillation with rapid ventricular response. Treatment: Amiodarone Drip, Diltiazem Drip, In your opinion, what is the most clinically appropriate diagnosis for this patient? * Paroxysmal Atrial Fibrillation with RVR * Persistent Atrial Fibrillation with RVR * Other explanation of clinical findings * Unable to determine (no explanation for clinical findings) (Last Revision: August 2017) This question should be directed to cardiology. MTDD
[2018-07-26] MEDS: APIXABAN 2.5 MG TABLET PO SCH (14:45)
[2018-07-26] MEDS: FUROSEMIDE 40 MG TAB PO SCH (14:45)
[2018-07-26] MEDS: AMIODARONE 200 MG TAB PO SCH (14:45)
[2018-07-26] MEDS: hydrALAZINE HCL 50 MG TAB PO SCH ×2 (14:46→15:01)
[2018-07-26] MEDS: amLODIPine 10 MG TAB PO SCH (15:02)
--- NOTE | 2018-07-26 15:04 | P.PN ---
Subjective Progress Note Date: 07/26/18 This is a pleasant 72-year-old female presented to the hospital secondary to oozing around the site of her peritoneal dialysis catheter. She also went into atrial fibrillation with rapid ventricular response and was initiated on amiodarone and beta jil therapy. She is seen and examined res ting comfortably in bed. She continues to remain in atrial fibrillation with mildly uncontrolled ventricular rate. Blood pressure 117/79 heart rate 110. Laboratory data reviewed, hemoglobin 8.5, platelets 281. She denies symptoms of chest pain, shortness of breath, dizziness or palpitations. Nephrology plan is to keep her in the hospital tomorrow so she can undergo dialysis. 07/26/2018 Patient was seen and examined this morning, just getting ready today to initiate dialysis. Heart rate in the low 100s, we will increase the dose of beta jil to 3 times a day today. Objective - Vital Signs Vital signs: Vital Signs Temp 98.8 F 07/26/18 04:00 Pulse 101 H 07/26/18 08:00 Resp 16 07/26/18 11:18 BP 118/60 07/26/18 08:00 Pulse Ox 97 07/26/18 08:00 Intake & Output 07/25/18 07/26/18 07/26/18 18:59 06:59 18:59 Intake Total 660 720 480 Output Total 500 200 Balance 160 720 280 Weight 51 kg Intake: Oral 660 720 480 Output: Urine 500 200 Other: Voiding Method Indwelling Catheter Toilet Toilet # Voids 3 - Exam GENERAL: Well-appearing, well-nourished and in no acute distress. NECK: Supple without JVD or thyromegaly. LUNGS: Breath sounds clear to auscultation bilaterally. Respiration equal and unlabored. No wheezes, rales or rhonchi. HEART: Irregular rate and rhythm without murmurs, rubs or gallops. S1 and S2 heard. EXTREMITIES: Normal range of motion, no edema. No clubbing or cyanosis. Peripheral pulses intact. - Labs CBC & Chem 7: 07/25/18 06:26 07/22/18 22:22 Assessment and Plan Plan: ASSESSMENT #1Paroxysmal atrial fibrillation with rapid ventricular response #2Acute on chronic diastolic heart failure, improved. EF 55-60%. #3COPD #4End-stage renal disease maintained on hemodialysis #5Hypertension Plan We will increase the dose of beta jil to a 3 times a day dose today. The patient is stable For discharge once cleared by primary. DNP note has been reviewed, I agree with a documented findings and plan of care. Patient was seen and examined.
--- NOTE | 2018-07-26 15:51 | PN ---
PROGRESS NOTE Patient is seen on hemodialysis. She is tolerating her treatment well. Patient denies any significant complaints. She will be discharged after hemodialysis. On examination today, blood pressure was 118/60, heart rate 100 per minute. She is afebrile. EXAMINATION OF THE HEART: S1 and S2. EXAMINATION OF LUNGS: Bilateral breath sounds are heard. ABDOMEN: Soft, non-tender. Examination of lower extremities shows no evidence of edema. [employer] exam is grossly intact. Labs show sodium of 134 on 07/22/2018. Potassium was 4.5. Hemoglobin 8.5 g/dL yesterday. ASSESSMENT: 1. End-stage renal disease, on hemodialysis on a Thursday, Thursday, Thursday schedule. 2. Fluid overload, currently improved. 3. Bleeding from peritoneal dialysis catheter site, currently resolved. 4. Hypertension, partly volume-sensitive, now significantly improved. PLAN: Patient is stable for discharge from nephrology standpoint post dialysis. She will follow up as outpatient for hemodialysis on Thursday. MMODL / IJN: [id number] /
[2018-07-26] MEDS ORDERED: METOPROLOL TARTRATE 50 MG TAB PO SCH (16:00)
[2018-07-26 16:34] VITALS: BP 135/87; PULSE 74
--- NOTE | 2018-07-26 17:15 | P.DS ---
Providers Date of admission: 07/23/18 09:33 Expected date of discharge: 07/26/18 Attending physician: Khang Wadsworth Consults: 07/22/18 23:43 Consult Physician Stat Consulting Provider: Alfredo Wilde Consult Reason/Comments: HD Do you want consulting provider notified?: Yes 07/23/18 03:22 Consult Physician Stat Consulting Provider: Steve Hudson Consult Reason/Comments: medical management Do you want consulting provider notified?: Yes 07/23/18 03:24 Consult Physician Stat Consulting Provider: Juan José Urbina Consult Reason/Comments: afib/rvr Do you want consulting provider notified?: Yes Primary care physician: Soren Desai - Discharge Diagnosis(es) (1) Post-operative hemorrhage Patient was readmitted to the hospital after noticing bleeding coming from the newly placed dialysis catheter insertion site. Patient was admitted to the hospital. Pressure was held. Despite that the patient's area was still oozing somewhat. At the bedside 2 sutures were used at the skin level to eliminate any further bleeding. Patient was seen during this hospital stay by cardiology because of atrial fibrillation with rapid ventricular response. Both medicine and cardiology also followed this patient. Today she had her hemodialysis as an inpatient. Being discharged today. Outpatient follow-up 1-2 weeks plan. Current Visit: Yes Status: Acute Patient Condition at Discharge: Good Plan - Discharge Summary Discharge Rx Participant: Yes New Discharge Prescriptions: New Metoprolol Tartrate [Lopressor] 50 mg PO TID #90 tab Continue Sertraline HCl [Zoloft] 50 mg PO HS Apixaban [Eliquis] 2.5 mg PO BID #60 tablet Zolpidem [Ambien] 5 mg PO HS Albuterol Inhaler [Ventolin Hfa Inhaler] 2 puff INHALATION RT-Q4H PRN PRN Reason: Shortness Of Breath Calcium Acetate [PhosLo] 667 mg PO AC-TID Furosemide [Lasix] 80 mg PO BID hydrALAZINE HCL [Apresoline] 100 mg PO TID amLODIPine [Norvasc] 10 mg PO 1200 Hydrocodone/Acetaminophen [[place] 5-325] 1 tab PO Q6HR PRN 3 Days #5 tab PRN Reason: Pain Changed Amiodarone [Cordarone] 100 mg PO BID #60 tab Discontinued Metoprolol Tartrate [Lopressor] 25 mg PO BID Discharge Medication List Sertraline HCl [Zoloft] 50 mg PO HS 04/30/17 [History] Apixaban [Eliquis] 2.5 mg PO BID #60 tablet 02/06/18 [Rx] Albuterol Inhaler [Ventolin Hfa Inhaler] 2 puff INHALATION RT-Q4H PRN 05/31/18 [History] Calcium Acetate [PhosLo] 667 mg PO AC-TID 05/31/18 [History] Zolpidem [Ambien] 5 mg PO HS 05/31/18 [History] Furosemide [Lasix] 80 mg PO BID 06/24/18 [History] hydrALAZINE HCL [Apresoline] 100 mg PO TID 07/18/18 [History] amLODIPine [Norvasc] 10 mg PO 1200 07/20/18 [History] Hydrocodone/Acetaminophen [[place] 5-325] 1 tab PO Q6HR PRN 3 Days #5 tab 07/22/18 [Rx] Amiodarone [Cordarone] 100 mg PO BID #60 tab 07/26/18 [Rx] Metoprolol Tartrate [Lopressor] 50 mg PO TID #90 tab 07/26/18 [Rx] Follow up Appointment(s)/Referral(s): Kaela Vargas MD [STAFF PHYSICIAN] - 1 Week (Please follow up with Dr. Vargas/Dr. Wilde at normal dialysis treatments. ) Soren Desai MD [Primary Care Provider] - 1-2 days (Office will call with a follow up appointment. ) Henry Curry MD [STAFF PHYSICIAN] - 08/10/18 1:00 pm (Thursday) Patient Instructions/Handouts: Postoperative Bleeding (DC), Safe Use of Anticoagulants (DC)
== END 2018-07-26 18:10 | disposition home or self-care (01) | DRG 314 ==
LOC: EC 21:56 → 4SSUR 23:14 → 3SCARD 07-23 04:20 → OBSVTOIN 07-23 09:33
PROVIDERS: ADMIT Surgery; ATTEND Surgery
PROC: 5A1D70Z Performance of Urinary Filtration, Intermittent, Less than 6 Hours Per Day (ICD-10-PCS; principal; 2018-07-23)
DX: T82.838A Hemorrhage due to vascular prosthetic devices, implants and grafts, initial encounter (principal); I50.33 Acute on chronic diastolic (congestive) heart failure; N18.6 End stage renal disease; D62 Acute posthemorrhagic anemia; I13.2 Hypertensive heart and chronic kidney disease with heart failure and with stage 5 chronic kidney disease, or end stage renal disease; I48.1 Persistent atrial fibrillation; I48.92 Unspecified atrial flutter; D63.1 Anemia in chronic kidney disease; E78.5 Hyperlipidemia, unspecified; F32.9 Major depressive disorder, single episode, unspecified; F41.9 Anxiety disorder, unspecified; I25.10 Atherosclerotic heart disease of native coronary artery without angina pectoris; I48.0 Paroxysmal atrial fibrillation; I65.23 Occlusion and stenosis of bilateral carotid arteries; J44.9 Chronic obstructive pulmonary disease, unspecified; M06.9 Rheumatoid arthritis, unspecified; M89.8X9 Other specified disorders of bone, unspecified site; Z79.01 Long term (current) use of anticoagulants; Z79.899 Other long term (current) drug therapy; Z82.49 Family history of ischemic heart disease and other diseases of the circulatory system; Z86.73 Personal history of transient ischemic attack (TIA), and cerebral infarction without residual deficits; Z87.891 Personal history of nicotine dependence; Z99.2 Dependence on renal dialysis; Z87.01 Personal history of pneumonia (recurrent); S62.109D Fracture of unspecified carpal bone, unspecified wrist, subsequent encounter for fracture with routine healing; W19.XXXD Unspecified fall, subsequent encounter
CPT/HCPCS: 36415; 80053; 83735; 85025; 85610; 90935; 94640; 94760; 99285

== ENCOUNTER 2018-07-29 22:05 | Inpatient (IN) | payer MEDICARE, BC ==
--- NOTE | 2018-07-29 22:30 | ED ---
SOB HPI - General Chief Complaint: Shortness of Breath Stated Complaint: Difficulty Breathing Time Seen by Provider: 07/29/18 22:15 Source: patient, EMS Mode of arrival: EMS Limitations: no limitations - History of Present Illness Initial Comments: Patient is a 72-year-old female with extensive past medical history of severe COPD, end-stage renal disease on dialysis Thursday. Patient presents the emergency department today for evaluation of progressively worsening shortness of breath for 24 hours duration. Patient reports that for the past 24 hours she's been feeling aggressively more short of breath, she is used to breathing treatments at home with no relief whatsoever. Patient reports that her chest feels like her lungs are very tight and she can't catch her breath. She denies any recent fevers, chills, nausea or vomiting. states that she is compliant with her dialysis her last dialysis was yesterday. - Related Data Home Medications Medication Instructions Recorded Confirmed Sertraline HCl [Zoloft] 50 mg PO HS 04/30/17 07/29/18 Albuterol Inhaler [Ventolin Hfa 2 puff INHALATION RT-Q4H PRN 05/31/18 07/29/18 Inhaler] Calcium Acetate [PhosLo] 667 mg PO AC-TID 05/31/18 07/29/18 Zolpidem [Ambien] 5 mg PO HS 05/31/18 07/29/18 Furosemide [Lasix] 80 mg PO BID 06/24/18 07/29/18 hydrALAZINE HCL [Apresoline] 100 mg PO TID 07/18/18 07/29/18 amLODIPine [Norvasc] 10 mg PO DAILY 07/20/18 07/29/18 Previous Rx's Medication Instructions Recorded Apixaban [Eliquis] 2.5 mg PO BID #60 tablet 02/06/18 Hydrocodone/Acetaminophen [[place] 1 tab PO Q6HR PRN 3 Days #5 tab 07/22/18 5-325] Amiodarone [Cordarone] 100 mg PO BID #60 tab 07/26/18 Metoprolol Tartrate [Lopressor] 50 mg PO TID #90 tab 07/26/18 Allergies Allergy/AdvReac Type Severity Reaction Status Date / Time No Known Allergies Allergy Verified 07/29/18 22:20 Review of Systems ROS Statement: Those systems with pertinent positive or pertinent negative responses have been documented in the HPI. ROS Other: All systems not noted in ROS Statement are negative. Past Medical History Past Medical History: Atrial Fibrillation, Asthma, Heart Failure, COPD, CVA/TIA, Hypertension, Osteoarthritis (OA), Pneumonia, Renal Disease, Syncope Additional Past Medical History / Comment(s): CVA 2006 recent ARF had dialysis cath inserted 02-02-18 gets dialysis Thu-Thu-Thu. History of Any Multi-Drug Resistant Organisms: None Reported Past Surgical History: Tonsillectomy Additional Past Surgical History / Comment(s): ORIF rt ankle-[address], IUD removal, lumbar steroid injections, dental implants, cardioversion, dialysis cath. has ocl on l wrist, states fell 1 1/2 month ago and has a hairline fracture of wrist Past Anesthesia/Blood Transfusion Reactions: No Reported Reaction Additional Past Anesthesia/Blood Transfusion Reaction / Comment(s): Past blood transfusions - no reaction Past Psychological History: No Psychological Hx Reported Smoking Status: Former smoker Past Alcohol Use History: Heavy Past Drug Use History: None Reported - Past Family History Mother Family Medical History: No Reported History Additional Family Medical History / Comment(s): Mother in her 80s from abdominal aortic aneurysm. Father Family Medical History: Myocardial Infarction ([place]) Additional Family Medical History / Comment(s): Father at age 52 from acute [place]. General Exam - General Exam Comments Initial Comments: Physical Exam GENERAL: Chronically ill-appearing elderly female in moderate respiratory distress on supplemental oxygen HENT: Normocephalic, Atraumatic. EYES: PERRL, EOMI PULMONARY: Expiratory wheezing in all lung caceres CARDIOVASCULAR: There is a regular rate and rhythm without any murmurs gallops or rubs. ABDOMEN: Soft and nontender with normal bowel sounds. SKIN: Dialysis port in place and right upper chest : Deferred NEUROLOGIC: Patient is alert and oriented x3. Moving all extremities spontaneously MUSCULOSKELETAL: Normal extremities with adequate strength and full range of motion. No lower extremity swelling or edema. No calf tenderness. PSYCHIATRIC: Normal psychiatric evaluation. Limitations: no limitations Limitations: no limitations Course Vital Signs 07/29/18 07/29/18 07/29/18 22:07 22:39 22:40 Temperature 97.5 F L Pulse Rate 71 71 Respiratory 16 20 19 Rate Blood Pressure 180/90 172/82 O2 Sat by Pulse 98 97 Oximetry Medical Decision Making - Medical Decision Making Patient is seen and evaluated, history is obtained from the patient and review of medical record This is a chronically ill 72-year-old female presenting for difficulty in breathing. Upon evaluation she has had one breathing treatment at home, one in route to the hospital, her oxygen saturation is 98% on room air though she is tachypneic with some wheezing. She does report feeling better with supplemental auction. 2 L of oxygen was provided nasal cannula. Patient declined further breathing treatments she says they don't work in a mechanical heart race Labs and imaging were ordered Labs consistent with patient's chronic kidney disease and sign no leukocytosis, chronic anemia Chest x-ray with mild vascular congestion no obvious pneumonia At this time I feel patient suffering from a COPD exacerbation. I will plan to admit the patient for steroids and breathing treatments. Patient is agreeable to breathing treatments every 4 hours she simply didn't want a third one upon he r immediate arrival. Patient care was discussed with Dr. Loomis who accepts the admission for COPD ex acerbation, requests a consult to nephrology for management the patient's dialysis. - Lab Data Result diagrams: 07/29/18 22:38 07/29/18 22:38 Lab Results 07/29/18 07/29/18 07/29/18 Range/Units 22:38 22:38 22:38 WBC 6.2 (3.8-10.6) k/uL RBC 2.90 L (3.80-5.40) m/uL Hgb 9.1 L (11.4-16.0) gm/dL Hct 28.0 L (34.0-46.0) % MCV 96.6 (80.0-100.0) fL MCH 31.3 (25.0-35.0) pg MCHC 32.4 (31.0-37.0) g/dL RDW 18.3 H (11.5-15.5) % Plt Count 262 (150-450) k/uL Neutrophils % 81 % Lymphocytes % 6 % Monocytes % 8 % Eosinophils % 1 % Basophils % 0 % Neutrophils # 5.0 (1.3-7.7) k/uL Lymphocytes # 0.4 L (1.0-4.8) k/uL Monocytes # 0.5 (0-1.0) k/uL Eosinophils # 0.1 (0-0.7) k/uL Basophils # 0.0 (0-0.2) k/uL Hypochromasia Slight Anisocytosis Slight Macrocytosis Slight PT 10.4 (9.0-12.0) sec INR 1.0 (<1.2) APTT 26.7 (22.0-30.0) sec Sodium 130 L (137-145) mmol/L Potassium 3.4 L (3.5-5.1) mmol/L Chloride 90 L (98-107) mmol/L Carbon Dioxide 27 (22-30) mmol/L Anion Gap 13 mmol/L BUN 28 H (7-17) mg/dL Creatinine 3.37 H (0.52-1.04) mg/dL Est GFR (CKD-EPI)AfAm 15 (>60 ml/min/1.73 sqM) Est GFR (CKD-EPI)NonAf 13 (>60 ml/min/1.73 sqM) Glucose 98 (74-99) mg/dL Calcium 9.3 (8.4-10.2) mg/dL Magnesium 2.3 (1.6-2.3) mg/dL Total Bilirubin 0.5 (0.2-1.3) mg/dL AST 18 (14-36) U/L ALT 8 L (9-52) U/L Alkaline Phosphatase 133 H (38-126) U/L Troponin I (0.000-0.034) ng/mL NT-Pro-B Natriuret Pep pg/mL Total Protein 6.8 (6.3-8.2) g/dL Albumin 3.9 (3.5-5.0) g/dL 07/29/18 07/29/18 Range/Units 22:38 22:38 WBC (3.8-10.6) k/uL RBC (3.80-5.40) m/uL Hgb (11.4-16.0) gm/dL Hct (34.0-46.0) % MCV (80.0-100.0) fL MCH (25.0-35.0) pg MCHC (31.0-37.0) g/dL RDW (11.5-15.5) % Plt Count (150-450) k/uL Neutrophils % % Lymphocytes % % Monocytes % % Eosinophils % % Basophils % % Neutrophils # (1.3-7.7) k/uL Lymphocytes # (1.0-4.8) k/uL Monocytes # (0-1.0) k/uL Eosinophils # (0-0.7) k/uL Basophils # (0-0.2) k/uL Hypochromasia Anisocytosis Macrocytosis PT (9.0-12.0) sec INR (<1.2) APTT (22.0-30.0) sec Sodium (137-145) mmol/L Potassium (3.5-5.1) mmol/L Chloride (98-107) mmol/L Carbon Dioxide (22-30) mmol/L Anion Gap mmol/L BUN (7-17) mg/dL Creatinine (0.52-1.04) mg/dL Est GFR (CKD-EPI)AfAm (>60 ml/min/1.73 sqM) Est GFR (CKD-EPI)NonAf (>60 ml/min/1.73 sqM) Glucose (74-99) mg/dL Calcium (8.4-10.2) mg/dL Magnesium (1.6-2.3) mg/dL Total Bilirubin (0.2-1.3) mg/dL AST (14-36) U/L ALT (9-52) U/L Alkaline Phosphatase (38-126) U/L Troponin I 0.033 (0.000-0.034) ng/mL NT-Pro-B Natriuret Pep 79809 pg/mL Total Protein (6.3-8.2) g/dL Albumin (3.5-5.0) g/dL Critical Care Time Critical Care Time: Yes Total Critical Care Time: 20 Critical Care Time: Critical Care Critical care time was exclusive of separately billable procedures and treating other patients Critical care was necessary to treat or prevent imminent or life-threatening deterioration. Critical care was time spent personally by me on the following activities: development of treatment plan with patient or surrogate, discussions with consultants, discussions with primary provider, evaluation of patient's response to treatment, examination of patient, obtaining history from patient or surrogate, ordering and performing treatments and interventions, ordering and review of laboratory studies, ordering and review of radiographic studies, pulse oximetry, re-evaluation of patient's condition and review of old charts. Disposition Clinical Impression: Fluid overload, ESRD (end stage renal disease), COPD (chronic obstructive pulmonary disease) Disposition: ADMITTED IP TO THIS HOSP Condition: Stable Referrals: Soren Desai MD [Primary Care Provider] - 1-2 days
[2018-07-29] MEDS ORDERED: methylPREDNISolone SOD SUCCI 125 MG/2 ML VIAL IV STA (22:39)
[2018-07-29] MEDS ORDERED: IPRATROPIUM-ALBUTEROL 3 ML NEB INHALATION STA (22:39)
[2018-07-29 23:01] LABS: Anisocytosis Slight; Basophils % (A) 0 %; Eosinophils # (A) 0.1 k/uL (0-0.7); Eosinophils % (A) 1 %; HGB 9.1 gm/dL (11.4-16.0); Hypochromasia Slight; Lymphocytes # (A) 0.4 k/uL (1.0-4.8); Lymphocytes % (A) 6 %; MCH 31.3 pg (25.0-35.0); MCHC 32.4 g/dL (31.0-37.0); MCV 96.6 fL (80.0-100.0); Macrocytosis Slight; Mean Platelet Volume 6.3; Monocytes # (A) 0.5 k/uL (0-1.0); Monocytes % (A) 8 %; Neutrophils % (A) 81 %; Platelet Count 262 k/uL (150-450); RDW 18.3 % (11.5-15.5); WBC 6.2 k/uL (3.8-10.6)
[2018-07-29 23:09] LABS: Partial Thromboplastin Time 26.7 sec (22.0-30.0); Prothrombin Time 10.4 sec (9.0-12.0)
[2018-07-29 23:14] LABS: Albumin 3.9 g/dL (3.5-5.0); Calcium 9.3 mg/dL (8.4-10.2); Magnesium 2.3 mg/dL (1.6-2.3); Potassium 3.4 mmol/L (3.5-5.1); Total Bilirubin 0.5 mg/dL (0.2-1.3); Total Protein 6.8 g/dL (6.3-8.2)
--- NOTE | 2018-07-29 23:21 | XR ---
EXAM: XR Chest, 2 Views CLINICAL HISTORY: ITS.REASON XR Reason: difficulty breathing TECHNIQUE: Frontal and lateral views of the chest. COMPARISON: 07/18/18 FINDINGS: Lungs: Pulmonary venous distention which could represent mild congestion. Interstitial thickening which is lower lobe predominant and concerning for edema. Likely mild airspace disease within the medial right lower lobe. Pleural space: No pneumothorax. No significant pleural effusion. Heart: Cardiomegaly. Upper mediastinal size is stable. Bones/joints: Nonacute. Tubes, lines and devices: Stable hemodialysis catheter overlying the right chest. IMPRESSION: 1. Cardiomegaly with mild pulmonary venous congestion and interstitial thickening possibly related to edema. Equivocal mild airspace infiltrate/edema in the right lower lobe. No significant effusion currently.
[2018-07-30] MEDS: IPRATROPIUM-ALBUTEROL 3 ML NEB INHALATION PRN ×4 (07:31→19:54)
[2018-07-30 08:52] LABS: Glucose,Whole Blood 235 mg/dL (75-99)
[2018-07-30] MEDS: predniSONE 20 MG TAB PO SCH (09:36)
[2018-07-30] MEDS: AMIODARONE 100 MG TAB PO SCH ×2 (12:14→23:16)
[2018-07-30] MEDS: CALCIUM ACETATE 667 MG CAP PO SCH ×2 (12:14→17:52)
[2018-07-30] MEDS: METOPROLOL TARTRATE 50 MG TAB PO SCH ×3 (12:14→22:13)
[2018-07-30] MEDS: amLODIPine 10 MG TAB PO SCH (12:18)
[2018-07-30] MEDS: APIXABAN 2.5 MG TABLET PO SCH ×2 (14:19→22:02)
[2018-07-30 20:58] LABS: Glucose,Whole Blood 145 mg/dL (75-99)
[2018-07-30] MEDS: SERTRALINE 50 MG TAB PO SCH (22:02)
[2018-07-30] MEDS: INSULIN ASPART (NovoLOG) 100 UNIT/ML VIAL SQ SCH (22:02)
[2018-07-30] MEDS: ZOLPIDEM 5 MG TAB PO SCH (22:02)
--- NOTE | 2018-07-30 23:02 | P.HPIM ---
History of Present Illness H&P Date: 07/30/18 Chief Complaint: Shortness of breath Patient is 72-year-old female with a known history of hypertension, paroxysmal atrial fibrillation on anticoagulation and amiodarone, severe COPD, ESRD on hemodialysis Thursday and Thursday for the past 2 months came to ER with complaints of worsening shortness of breath for the past 1 day. Patient did have hemodialysis on Thursday. Patient has been having worsening shortness of breath since going home. Patient tried breathing treatments at home without much relief. [place] chest tightness and shortness of breath. No complaints of chest pain. Patient presented ER for evaluation. No complaints of fever or chills. No cough is from production. No nausea vomiting or abdominal pain or diarrhea. Patient did have a normal dialysis on Thursday. Patient did have peritoneal masses catheter placed but not ready for use yet. EKG showed normal sinus rhythm chest x-ray showed BNP 39 200, hemoglobin 9.1 Sodium 134 and potassium 3.4 Chest x-ray showed cardiomegaly with mild pulmonary venous congestion and interstitial thickening possible related to edema. Equivocal mildly infiltrates/edema in the right lower lobe. Review of Systems Constitutional: Patient denies any fever or chills . No generalized weakness or weight loss. Abdomen: Patient denied nausea vomiting and diarrhea and abdominal pain. Cardiovascular: Patient denies any chest pain or short of breath no palpitat ions. Respiratory: Patient denied any cough or sputum production. Patient does have short of breath. Neurologic: Patient denied any numbness or tingling headache. Musculoskeletal: Patient denies any complaints of joint swelling or deformity. Skin: Negative Psychiatric: Negative Endocrine: No heat or cold intolerance. No recent weight gain. Genitourinary: No dysuria or hematuria. All other 14 point ROS negative except the above Past Medical History Past Medical History: Atrial Fibrillation, Asthma, Heart Failure, COPD, CVA/TIA, Hypertension, Osteoarthritis (OA), Pneumonia, Renal Disease, Syncope Additional Past Medical History / Comment(s): CVA 2006 recent ARF had dialysis cath inserted 02-02-18 gets dialysis Thu-Thu-Thu. History of Any Multi-Drug Resistant Organisms: None Reported Past Surgical History: Tonsillectomy Additional Past Surgical History / Comment(s): ORIF rt ankle-[address], IUD removal, lumbar steroid injections, dental implants, cardioversion, dialysis cath. has ocl on l wrist, states fell 1 1/2 month ago and has a hairline fracture of wrist Past Anesthesia/Blood Transfusion Reactions: No Reported Reaction Additional Past Anesthesia/Blood Transfusion Reaction / Comment(s): Past blood transfusions - no reaction Past Psychological History: Anxiety Smoking Status: Former smoker Past Alcohol Use History: Heavy Additional Past Alcohol Use History / Comment(s): Patient smoked one and half packs of cigarettes per day started in 1973 and quit 2007. Patient used to drink heavily-none now Past Drug Use History: None Reported - Past Family History Mother Family Medical History: No Reported History Additional Family Medical History / Comment(s): Mother in her 80s from abdominal aortic aneurysm. Father Family Medical History: Myocardial Infarction ([place]) Additional Family Medical History / Comment(s): Father at age 52 from acute [place]. Medications and Allergies Home Medications Medication Instructions Recorded Confirmed Type Sertraline HCl [Zoloft] 50 mg PO HS 04/30/17 07/29/18 History Apixaban [Eliquis] 2.5 mg PO BID #60 tablet 02/06/18 07/29/18 Rx Albuterol Inhaler [Ventolin Hfa 2 puff INHALATION RT-Q4H PRN 05/31/18 07/29/18 History Inhaler] Calcium Acetate [PhosLo] 667 mg PO AC-TID 05/31/18 07/29/18 History Zolpidem [Ambien] 5 mg PO HS 05/31/18 07/29/18 History Furosemide [Lasix] 80 mg PO BID 06/24/18 07/29/18 History hydrALAZINE HCL [Apresoline] 100 mg PO TID 07/18/18 07/29/18 History amLODIPine [Norvasc] 10 mg PO DAILY 07/20/18 07/29/18 History Hydrocodone/Acetaminophen [[place] 1 tab PO Q6HR PRN 3 Days #5 tab 07/22/18 07/29/18 Rx 5-325] Amiodarone [Cordarone] 100 mg PO BID #60 tab 07/26/18 07/29/18 Rx Metoprolol Tartrate [Lopressor] 50 mg PO TID #90 tab 07/26/18 07/29/18 Rx Allergies Allergy/AdvReac Type Severity Reaction Status Date / Time No Known Allergies Allergy Verified 07/29/18 22:20 Physical Exam Vitals: Vital Signs Temp Pulse Pulse Resp BP BP Pulse Ox 07/30/18 07:56 99.2 F 68 18 145/65 95 07/30/18 07:40 68 16 07/30/18 07:31 67 16 07/30/18 04:08 98.1 F 63 18 151/72 95 07/30/18 04:00 67 20 07/30/18 01:30 20 07/30/18 01:14 97.8 F 67 20 160/76 91 L 07/30/18 00:20 70 16 173/86 97 07/29/18 22:40 71 19 172/82 97 07/29/18 22:39 20 07/29/18 22:07 97.5 F L 71 16 180/90 98 Intake and Output 07/29/18 07/30/18 07/30/18 22:59 06:59 14:59 Intake Total 140 Output Total 1 Balance 139 Intake: Oral 140 Output: Urine/Stool Mix 1 Other: Voiding Method Bedpan Weight 53.07 kg PHYSICAL EXAMINATION: Patient is lying in the bed comfortably, no acute distress, awake alert and oriented.. HEENT: Normocephalic. Neck is supple. Pupils reactive. Nostrils clear. Oral cavity is moist. Ears reveal no drainage. Neck reveals no JVD, carotid bruits, or thyromegaly. CHEST EXAMINATION: Trachea is central. Symmetrical expansion. Bilateral diminished air entry and mild expiratory wheeze. Nonlabored breathing.. CARDIAC: Normal S1, S2 with no gallops. No murmurs ABDOMEN: Soft. Bowel sounds normal. No organomegaly. No abdominal bruits. Extremities: reveal no edema. No clubbing or cyanosis Neurologically awake, alert, oriented x3 with well-coordinated movements. No focal deficits noted Skin: No rash or skin lesions. Psychiatric: Coperative. Nonsuicidal Musculoskeletal: No joint swelling or deformity. Normal range of motion. Results CBC & Chem 7: 07/29/18 22:38 07/29/18 22:38 Labs: Abnormal Lab Results - Last 24 Hours (Table) 07/29/18 07/29/18 07/30/18 Range/Units 22:38 22:38 08:50 RBC 2.90 L (3.80-5.40) m/uL Hgb 9.1 L (11.4-16.0) gm/dL Hct 28.0 L (34.0-46.0) % RDW 18.3 H (11.5-15.5) % Lymphocytes # 0.4 L (1.0-4.8) k/uL Sodium 130 L (137-145) mmol/L Potassium 3.4 L (3.5-5.1) mmol/L Chloride 90 L (98-107) mmol/L BUN 28 H (7-17) mg/dL Creatinine 3.37 H (0.52-1.04) mg/dL POC Glucose (mg/dL) 235 H (75-99) mg/dL ALT 8 L (9-52) U/L Alkaline Phosphatase 133 H (38-126) U/L Thrombosis Risk Factor Assmnt - DVT/VTE Prophylaxis DVT/VTE Prophylaxis: Pharmacologic Prophylaxis ordered - Choose All That Apply Any of the Below Risk Factors Present?: No Other Risk Factors: Yes Each Risk Factor Represents 2 Points: Age 61-74 years, Central venous access Each Risk Factor Represents 3 Points: History of DVT/PE Thrombosis Risk Factor Assessment Total Risk Factor Score: 7 Thrombosis Risk Factor Assessment Level: High Risk Assessment and Plan Assessment: Worsening shortness of breath secondary to fluid load due to ESRD Possible acute CHF with diastolic dysfunction. Paroxysmal atrial fibrillation on anticoagulation. With history of cardioversion. On amiodarone and metoprolol. Asthma/COPD History of CVA/TIA Hypertension Osteoarthritis Anxiety Past history heavy alcohol use History of nicotine addiction Plan: Patient will be continued on home blood pressure medications including Lasix since patient does make urine. Continue with metoprolol and continue with amiodarone and anticoagulation with Eliquis. Continue the home medications. Patient is getting hemodialysis today. Continued the breathing treatments and oral prednisone at 40 mg daily. Nephrology was consulted. Further recommendations based on the clinical course. Time with Patient: Greater than 30
[2018-07-30] MEDS: FUROSEMIDE 80 MG TAB PO SCH (23:16)
--- NOTE | 2018-07-30 23:46 | CONS ---
CONSULTATION REASON FOR CONSULT: End-stage renal disease. HISTORY OF PRESENT ILLNESS: Patient is a 72-year-old female with end-stage renal disease, on hemodialysis on a Thursday, Thursday, Thursday schedule at the [facility]. She presented to the hospital with complaints of shortness of breath. The patient states she had her regular treatment on Thursday. She does have history of fluid abuse as outpatient. The patient is currently seen on dialysis this morning. She is tolerating her treatment well. PAST MEDICAL HISTORY: 1. End-stage renal disease, on hemodialysis. 2. Coronary artery disease. 3. Diastolic heart failure. 4. CKD mineral bone disorder. 5. Anemia of chronic disease. 6. Asthma. 7. Atrial fibrillation. 8. COPD. 9. History of CVA. PAST SURGICAL HISTORY: PermCath placement, ORIF right ankle, IUD insertion and removal, dental implants. SOCIAL HISTORY: The patient is a former smoker. No history of drug abuse or alcohol abuse. MEDICATIONS: Prior to admission included Eliquis, [place], Cordarone, Lopressor, Norvasc, hydralazine, Zoloft, PhosLo, Ambien, Lasix. PHYSICAL EXAMINATION: Patient is comfortable, awake, alert, oriented x3. She is not in any acute distress. Blood pressure this morning was 145/65, heart rate 60 per minute. She is afebrile. Examination of the heart S1, S2. Examination of lungs, bilateral breath sounds are heard. Abdomen is soft, nontender. Examination of lower extremities shows no significant edema. SHINGLE CATCHER exam is grossly intact. LABS: Hemoglobin 9.1, sodium 130, potassium 3.4, BUN 28, serum creatinine 3.37. ASSESSMENT: 1. End-stage renal disease, on hemodialysis on a Thursday, Thursday, Thursday schedule. 2. Fluid overload. 3. Hypertension, partly volume sensitive. 4. CKD mineral bone disorder. PLAN: Hemodialysis today with ultrafiltration of about 3 to 4 L. We will plan to dialyze her again tomorrow. Continue with the oral Lasix and the phosphate binders. I will maintain the patient on Aranesp as well. Thank you for this consultation. We will continue to follow the patient with you during her hospitalization. MMODL / IJN: [id number] /
[2018-07-31] MEDS: INSULIN ASPART (NovoLOG) 100 UNIT/ML VIAL SQ SCH ×4 (07:14→22:16)
[2018-07-31 07:15] LABS: Glucose,Whole Blood 90 mg/dL (75-99)
[2018-07-31] MEDS: AMIODARONE 100 MG TAB PO SCH ×2 (07:23→22:16)
[2018-07-31] MEDS: HYDROcodone/APAP 5-325MG 1 EACH TAB PO PRN ×2 (07:23→22:19)
[2018-07-31] MEDS: predniSONE 20 MG TAB PO SCH (07:23)
[2018-07-31] MEDS: CALCIUM ACETATE 667 MG CAP PO SCH ×3 (07:23→17:40)
[2018-07-31] MEDS: amLODIPine 10 MG TAB PO SCH (07:23)
[2018-07-31] MEDS: METOPROLOL TARTRATE 50 MG TAB PO SCH ×3 (07:23→22:16)
[2018-07-31] MEDS: APIXABAN 2.5 MG TABLET PO SCH ×2 (07:23→22:16)
[2018-07-31] MEDS: FUROSEMIDE 80 MG TAB PO SCH ×2 (07:23→22:16)
[2018-07-31] MEDS ORDERED: DARBEPOETIN ALFA 40 MCG/0.4 ML SYRINGE SQ SCH (08:30)
[2018-07-31 12:02] LABS: Glucose,Whole Blood 186 mg/dL (75-99)
[2018-07-31] MEDS: IPRATROPIUM-ALBUTEROL 3 ML NEB INHALATION PRN ×2 (13:45→20:03)
--- NOTE | 2018-07-31 15:38 | PN ---
PROGRESS NOTE Patient is seen for followup for end-stage renal disease. She was dialyzed yesterday. This morning patient is feeling much better. Shortness of breath has improved significantly. She will be dialyzed again today and patient could be discharged from nephrology standpoint. PHYSICAL EXAMINATION: The last blood pressure documented 164/74 from last night. Heart rate about 76 per minute. Patient is afebrile. Examination of the heart, S1, S2. Examination of the lungs, bilateral breath sounds are heard. Abdomen is soft, nontender. Examination of the lower extremities shows no evidence of edema. LABS: Show hemoglobin 9.1, sodium 130, potassium 3.4, BUN 28, serum creatinine 3.37. ASSESSMENT: 1. End-stage renal disease, on hemodialysis on a Thursday, Thursday, Thursday schedule. 2. Congestive heart failure, fluid overload, acute on top of chronic, mainly diastolic. 3. History of fluid abuse as outpatient with increased weight gains between treatments as outpatient. PLAN: Repeat dialysis today. Patient can be discharged post dialysis. She will follow up as outpatient for hemodialysis on Thursday. MMODL / IJN: [id number] /
[2018-07-31 16:45] LABS: Anisocytosis Slight; Basophils % (A) 0 %; Eosinophils % (A) 0 %; HCT 34.4 % (34.0-46.0); HGB 10.2 gm/dL (11.4-16.0); Hypochromasia Marked; Lymphocytes # (A) 0.2 k/uL (1.0-4.8); Lymphocytes % (A) 2 %; MCHC 29.7 g/dL (31.0-37.0); Macrocytosis Moderate; Mean Platelet Volume 7.2; Monocytes # (A) 0.4 k/uL (0-1.0); Monocytes % (A) 3 %; Neutrophils # (A) 9.8 k/uL (1.3-7.7); Neutrophils % (A) 94 %; Platelet Count 266 k/uL (150-450); RBC 3.41 m/uL (3.80-5.40); RDW 17.7 % (11.5-15.5); WBC 10.4 k/uL (3.8-10.6)
[2018-07-31 16:56] LABS: Calcium 9.5 mg/dL (8.4-10.2); Potassium 4.6 mmol/L (3.5-5.1)
[2018-07-31 17:24] LABS: Glucose,Whole Blood 148 mg/dL (75-99)
[2018-07-31 21:03] LABS: Glucose,Whole Blood 203 mg/dL (75-99)
[2018-07-31] MEDS: SERTRALINE 50 MG TAB PO SCH (22:16)
[2018-07-31] MEDS: ZOLPIDEM 5 MG TAB PO SCH (22:16)
[2018-08-01 00:38] VITALS: RESP 16
--- NOTE | 2018-08-01 00:55 | P.PN ---
Subjective Progress Note Date: 07/31/18 Principal diagnosis: Acute fluid overload ESRD on hemodialysis Patient is 72-year-old female with a known history of hypertension, paroxysmal atrial fibrillation on anticoagulation and amiodarone, severe COPD, ESRD on hemodialysis Thursday and Thursday for the past 2 months came to ER with complaints of worsening shortness of breath for the past 1 day. Patient did have hemodialysis on Thursday. Patient has been having worsening shortness of breath since going home. Patient tried breathing treatments at home without much relief. [place] chest tightness and shortness of breath. No complaints of chest pain. Patient presented ER for evaluation. No complaints of fever or chills. No cough is from production. No nausea vomiting or abdominal pain or diarrhea. Patient did have a normal dialysis on Thursday. Patient did have peritoneal masses catheter placed but not ready for use yet. EKG showed normal sinus rhythm chest x-ray showed BNP 39 200, hemoglobin 9.1 Sodium 134 and potassium 3.4 Chest x-ray showed cardiomegaly with mild pulmonary venous congestion and interstitial thickening possible related to edema. Equivocal mildly infiltrates/edema in the right lower lobe. 07/31/2018 Patient says that her breathing is better today. Patient did have another s ession hemodialysis today. No fever no chills. No nausea vomiting or abdominal pain. No complaints of chest pain. Nephrology is on board. Current medications reviewed. Objective - Vital Signs Vital signs: Vital Signs Temp 98.3 F 07/31/18 19:32 Pulse 54 L 07/31/18 20:13 Resp 18 07/31/18 20:13 BP 147/70 07/31/18 19:32 Pulse Ox 95 07/31/18 20:05 Intake & Output 07/31/18 07/31/18 08/01/18 06:59 18:59 06:59 Weight 51.1 kg Other: Voiding Method Bedpan # Voids 1 1 1 # Bowel Movements 0 - Exam PHYSICAL EXAMINATION: Patient is lying in the bed comfortably, no acute distress, awake alert and oriented.. HEENT: Normocephalic. Neck is supple. Pupils reactive. Nostrils clear. Oral cavity is moist. Ears reveal no drainage. Neck reveals no JVD, carotid bruits, or thyromegaly. CHEST EXAMINATION: Trachea is central. Symmetrical expansion. Bilateral improved air entry. No wheezing. CARDIAC: Normal S1, S2 with no gallops. No murmurs ABDOMEN: Soft. Bowel sounds normal. No organomegaly. No abdominal bruits. Extremities: reveal no edema. No clubbing or cyanosis Neurologically awake, alert, oriented x3 with well-coordinated movements. No focal deficits noted Skin: No rash or skin lesions. Psychiatric: Coperative. Nonsuicidal Musculoskeletal: No joint swelling or deformity. Normal range of motion. - Labs CBC & Chem 7: 07/31/18 15:30 07/31/18 15:30 Labs: Abnormal Lab Results - Last 24 Hours (Table) 07/31/18 07/31/18 07/31/18 Range/Units 12:00 15:30 15:30 RBC 3.41 L (3.80-5.40) m/uL Hgb 10.2 L (11.4-16.0) gm/dL MCV 101.0 H (80.0-100.0) fL MCHC 29.7 L (31.0-37.0) g/dL RDW 17.7 H (11.5-15.5) % Neutrophils # 9.8 H (1.3-7.7) k/uL Lymphocytes # 0.2 L (1.0-4.8) k/uL Sodium 129 L (137-145) mmol/L Chloride 90 L (98-107) mmol/L BUN 40 H (7-17) mg/dL Creatinine 3.66 H (0.52-1.04) mg/dL Glucose 162 H (74-99) mg/dL POC Glucose (mg/dL) 186 H (75-99) mg/dL 07/31/18 07/31/18 Range/Units 17:09 21:01 RBC (3.80-5.40) m/uL Hgb (11.4-16.0) gm/dL MCV (80.0-100.0) fL MCHC (31.0-37.0) g/dL RDW (11.5-15.5) % Neutrophils # (1.3-7.7) k/uL Lymphocytes # (1.0-4.8) k/uL Sodium (137-145) mmol/L Chloride (98-107) mmol/L BUN (7-17) mg/dL Creatinine (0.52-1.04) mg/dL Glucose (74-99) mg/dL POC Glucose (mg/dL) 148 H 203 H (75-99) mg/dL Assessment and Plan Assessment: Worsening shortness of breath secondary to fluid load due to ESRD Possible acute CHF with diastolic dysfunction. Paroxysmal atrial fibrillation on anticoagulation. With history of cardioversion. On amiodarone and metoprolol. Asthma/COPD with mild exacerbation. History of CVA/TIA Hypertension Osteoarthritis Anxiety Past history heavy alcohol use History of nicotine addiction Plan: Patient will be continued on home blood pressure medications including Lasix since patient does make urine. Continue with metoprolol and continue with amiodarone and anticoagulation with Eliquis. Continue the home medications. Patient is getting hemodialysis today. Continued the breathing treatments and oral prednisone at 40 mg daily. Nephrology was consulted. Further recommendat ions based on the clinical course. Time with Patient: Greater than 30
[2018-08-01 07:32] LABS: Glucose,Whole Blood 98 mg/dL (75-99)
[2018-08-01] MEDS: IPRATROPIUM-ALBUTEROL 3 ML NEB INHALATION PRN ×3 (07:57→19:55)
[2018-08-01] MEDS: INSULIN ASPART (NovoLOG) 100 UNIT/ML VIAL SQ SCH ×4 (07:59→21:32)
[2018-08-01] MEDS: FUROSEMIDE 80 MG TAB PO SCH ×2 (08:05→21:33)
[2018-08-01] MEDS: APIXABAN 2.5 MG TABLET PO SCH ×2 (08:05→21:32)
[2018-08-01] MEDS: METOPROLOL TARTRATE 50 MG TAB PO SCH ×3 (08:05→21:32)
[2018-08-01] MEDS: CALCIUM ACETATE 667 MG CAP PO SCH ×3 (08:05→17:11)
[2018-08-01] MEDS: HYDROcodone/APAP 5-325MG 1 EACH TAB PO PRN ×2 (08:05→21:37)
[2018-08-01] MEDS: AMIODARONE 100 MG TAB PO SCH ×2 (08:05→21:32)
[2018-08-01] MEDS: amLODIPine 10 MG TAB PO SCH (08:05)
[2018-08-01] MEDS: predniSONE 20 MG TAB PO SCH (08:06)
[2018-08-01 11:52] LABS: Glucose,Whole Blood 108 mg/dL (75-99)
[2018-08-01 14:00] VITALS: BMI 18.1
--- NOTE | 2018-08-01 14:51 | PN ---
PROGRESS NOTE The patient is seen for followup for end-stage renal disease. She was scheduled for hemodialysis tomorrow, however patient will would like to get dialyzed tomorrow and then get discharged tomorrow. Her breathing status has improved. We had about 3.5 L of fluid removed yesterday. PHYSICAL EXAMINATION: Blood pressure is 173/74, heart rate 52 per minute. She is afebrile. Examination of the heart: S1, S2. Examination of the lungs: Bilateral breath sounds are heard. Decreased breath sounds at bases. Abdomen is soft, nontender. Examination lower extremities shows no evidence of edema. LABS: Show hemoglobin of 10.2 on July 31. Potassium was 4.6 yesterday. ASSESSMENT: 1. End-stage renal disease, on hemodialysis on a Thursday, Thursday, Thursday schedule. Patient will be dialyzed tomorrow following which she could be discharged. 2. Fluid overload currently improved. 3. Status post PD catheter insertion recently, currently doing well. 4. CKD mineral bone disorder. 5. Hypertension volume sensitive. Expect further improvement with hemodialysis tomorrow. PLAN: Hemodialysis tomorrow. UF of about 3-4 L. Continue with Norvasc and Lopressor. Add ZO inhibitors as blood pressure remains uncontrolled. Patient is supposed to be on hydralazine as well at home. I will resume the hydralazine. MMODL / IJN: [id number] /
[2018-08-01 17:07] LABS: Glucose,Whole Blood 168 mg/dL (75-99)
[2018-08-01 20:40] LABS: Glucose,Whole Blood 221 mg/dL (75-99)
[2018-08-01] MEDS: hydrALAZINE HCL 50 MG TAB PO SCH (21:32)
[2018-08-01] MEDS: ZOLPIDEM 5 MG TAB PO SCH (21:32)
[2018-08-01] MEDS: SERTRALINE 50 MG TAB PO SCH (21:32)
[2018-08-02] MEDS: IPRATROPIUM-ALBUTEROL 3 ML NEB INHALATION PRN ×2 (07:00→10:46)
[2018-08-02 07:06] LABS: Glucose,Whole Blood 90 mg/dL (75-99)
[2018-08-02] MEDS: INSULIN ASPART (NovoLOG) 100 UNIT/ML VIAL SQ SCH ×2 (07:42→12:03)
[2018-08-02 07:58] VITALS: BP 183/83; TEMP 98.2
[2018-08-02 08:11] LABS: Anisocytosis Slight; Basophils % (A) 0 %; Eosinophils % (A) 0 %; HCT 31.4 % (34.0-46.0); HGB 9.8 gm/dL (11.4-16.0); Hypochromasia Moderate; Lymphocytes # (A) 1.1 k/uL (1.0-4.8); Lymphocytes % (A) 13 %; MCH 31.3 pg (25.0-35.0); MCHC 31.4 g/dL (31.0-37.0); MCV 99.7 fL (80.0-100.0); Macrocytosis Slight; Mean Platelet Volume 6.8; Monocytes # (A) 0.7 k/uL (0-1.0); Monocytes % (A) 9 %; Neutrophils # (A) 6.2 k/uL (1.3-7.7); Neutrophils % (A) 75 %; Platelet Count 239 k/uL (150-450); RBC 3.15 m/uL (3.80-5.40); RDW 17.6 % (11.5-15.5); WBC 8.3 k/uL (3.8-10.6)
[2018-08-02 08:51] LABS: Calcium 9.2 mg/dL (8.4-10.2); Potassium 4.4 mmol/L (3.5-5.1)
[2018-08-02] MEDS: METOPROLOL TARTRATE 50 MG TAB PO SCH (09:04)
[2018-08-02] MEDS: amLODIPine 10 MG TAB PO SCH (09:04)
[2018-08-02] MEDS: CALCIUM ACETATE 667 MG CAP PO SCH ×2 (09:04→12:19)
[2018-08-02] MEDS: predniSONE 20 MG TAB PO SCH (09:04)
[2018-08-02] MEDS: APIXABAN 2.5 MG TABLET PO SCH (09:05)
[2018-08-02] MEDS: FUROSEMIDE 80 MG TAB PO SCH (09:05)
[2018-08-02] MEDS: AMIODARONE 100 MG TAB PO SCH (09:05)
--- NOTE | 2018-08-02 09:57 | P.PN ---
Subjective Patient is seen in follow-up for end-stage renal disease. She is maintained on hemodialysis on a Thursday schedule. Dyspnea is improved. She scheduled to undergo dialysis today. No active complaints at this time. She had a PD catheter placed recently and will be transitioning over to PD soon. Vital signs are stable. General: The patient appeared well nourished and normally developed. HEENT: Head exam is unremarkable. Neck is without jugular venous distension. LUNGS: Lungs are clear to auscultation and percussion. Breath sounds decreased. HEART: Rate and Rhythm are regular. First and second heart sounds normal. No murmurs, rubs or gallops. ABDOMEN: Abdominal exam reveals normal bowel sounds. Non-tender and non-disten ded. No evidence of peritonitis. EXTREMITITES: No clubbing, cyanosis, or edema. Objective - Vital Signs Vital signs: Vital Signs Temp 98.2 F 08/02/18 07:00 Pulse 60 08/02/18 07:13 Resp 16 08/02/18 07:00 BP 183/83 08/02/18 07:00 Pulse Ox 100 08/02/18 07:00 Intake & Output 08/01/18 08/02/18 08/02/18 18:59 06:59 18:59 Intake Total 400 940 Balance 400 940 Weight 49.6 kg 65.5 kg Intake: Oral 400 940 Other: Voiding Method Toilet # Voids 2 - Labs CBC & Chem 7: 08/02/18 07:12 08/02/18 07:12 Labs: Abnormal Lab Results - Last 24 Hours (Table) 08/01/18 08/01/18 08/01/18 Range/Units 11:40 16:55 20:29 RBC (3.80-5.40) m/uL Hgb (11.4-16.0) gm/dL Hct (34.0-46.0) % RDW (11.5-15.5) % Sodium (137-145) mmol/L Chloride (98-107) mmol/L BUN (7-17) mg/dL Creatinine (0.52-1.04) mg/dL Glucose (74-99) mg/dL POC Glucose (mg/dL) 108 H 168 H 221 H (75-99) mg/dL 03/18/19 03/18/19 Range/Units 07:12 07:12 RBC 3.15 L (3.80-5.40) m/uL Hgb 9.8 L (11.4-16.0) gm/dL Hct 31.4 L (34.0-46.0) % RDW 17.6 H (11.5-15.5) % Sodium 128 L (137-145) mmol/L Chloride 91 L (98-107) mmol/L BUN 75 H (7-17) mg/dL Creatinine 5.45 H (0.52-1.04) mg/dL Glucose 69 L (74-99) mg/dL POC Glucose (mg/dL) (75-99) mg/dL Assessment and Plan Plan: Assessment: 1. End-stage renal disease maintained on hemodialysis on a Thursday schedule. 2. Hyponatremia secondary to chronic kidney disease. 3. Anemia of chronic kidney disease maintained on Aranesp. 4. Volume overload. Better. 5. Chronic kidney disease mineral bone disease maintained on PhosLo. 6. Hypertension with chronic kidney disease. 7. Diastolic CHF. Plan: Hemodialysis today with goal 4 L ultrafiltration. Potential discharge after dialysis today.
--- NOTE | 2018-08-02 10:45 | P.PN ---
Subjective Progress Note Date: 08/01/18 Principal diagnosis: Acute fluid overload ESRD on hemodialysis Patient is 72-year-old female with a known history of hypertension, paroxysmal atrial fibrillation on anticoagulation and amiodarone, severe COPD, ESRD on hemodialysis Thursday and Thursday for the past 2 months came to ER with complaints of worsening shortness of breath for the past 1 day. Patient did have hemodialysis on Thursday. Patient has been having worsening shortness of breath since going home. Patient tried breathing treatments at home without much relief. [place] chest tightness and shortness of breath. No complaints of chest pain. Patient presented ER for evaluation. No complaints of fever or chills. No cough is from production. No nausea vomiting or abdominal pain or diarrhea. Patient did have a normal dialysis on Thursday. Patient did have peritoneal masses catheter placed but not ready for use yet. EKG showed normal sinus rhythm chest x-ray showed BNP 39 200, hemoglobin 9.1 Sodium 134 and potassium 3.4 Chest x-ray showed cardiomegaly with mild pulmonary venous congestion and interstitial thickening possible related to edema. Equivocal mildly infiltrates/edema in the right lower lobe. 07/31/2018 Patient says that her breathing is better today. Patient did have another s ession hemodialysis today. No fever no chills. No nausea vomiting or abdominal pain. No complaints of chest pain. Nephrology is on board. 08/01/2018 Patient's breathing status is much improved after dialysis. No complains of chest pain or shortness of breath. Still having some short of breath with ambulation. Anticipate discharge after dialysis tomorrow. No fever no chills. No nausea vomiting or abdominal pain. No diarrhea. Current medications reviewed. Objective - Vital Signs Vital signs: Vital Signs Temp 97.9 F 08/01/18 14:27 Pulse 60 08/01/18 15:45 Resp 16 08/01/18 14:27 BP 163/84 08/01/18 14:27 Pulse Ox 97 08/01/18 14:27 Intake & Output 07/31/18 08/01/18 08/01/18 18:59 06:59 18:59 Intake Total 400 Balance 400 Weight 45.6 kg 49.6 kg Intake: Oral 400 Other: Voiding Method Bedpan # Voids 1 1 # Bowel Movements 0 - Exam PHYSICAL EXAMINATION: Patient is lying in the bed comfortably, no acute distress, awake alert and oriented.. HEENT: Normocephalic. Neck is supple. Pupils reactive. Nostrils clear. Oral cavity is moist. Ears reveal no drainage. Neck reveals no JVD, carotid bruits, or thyromegaly. CHEST EXAMINATION: Trachea is central. Symmetrical expansion. Bilateral improved air entry. No wheezing. CARDIAC: Normal S1, S2 with no gallops. No murmurs ABDOMEN: Soft. Bowel sounds normal. No organomegaly. No abdominal bruits. Extremities: reveal no edema. No clubbing or cyanosis Neurologically awake, alert, oriented x3 with well-coordinated movements. No focal deficits noted Skin: No rash or skin lesions. Psychiatric: Coperative. Nonsuicidal Musculoskeletal: No joint swelling or deformity. Normal range of motion. - Labs CBC & Chem 7: 08/02/18 07:12 08/02/18 07:12 Labs: Abnormal Lab Results - Last 24 Hours (Table) 07/31/18 08/01/18 08/01/18 Range/Units 21:01 11:40 16:55 POC Glucose (mg/dL) 203 H 108 H 168 H (75-99) mg/dL Assessment and Plan Assessment: Worsening shortness of breath secondary to fluid load due to ESRD Possible acute CHF with diastolic dysfunction. Improved. Paroxysmal atrial fibrillation on anticoagulation. With history of cardioversion. On amiodarone and metoprolol. Asthma/COPD with mild exacerbation. History of CVA/TIA Hypertension Osteoarthritis Anxiety Past history heavy alcohol use History of nicotine addiction Plan: Patient will be continued on home blood pressure medications including Lasix since patient does make urine. Continue with metoprolol and continue with amiodarone and anticoagulation with Eliquis. Continue the home medications. Patient is getting hemodialysis on Thursday again.. Continued the breathing treatments and oral prednisone at 40 mg daily for 5 days. Nephrology is following.. Further recommendations based on the clinical course. Time with Patient: Greater than 30
[2018-08-02 10:49] VITALS: PULSE 64
[2018-08-02 11:34] LABS: Glucose,Whole Blood 98 mg/dL (75-99)
[2018-08-02] MEDS: hydrALAZINE HCL 50 MG TAB PO SCH (12:03)
[2018-08-02] MEDS ORDERED: hydrALAZINE HCL 50 MG TAB PO SCH (16:00)
--- NOTE | 2018-08-03 11:50 | DS ---
DISCHARGE SUMMARY DATE OF ADMISSION: 07/30/2018 DATE OF DISCHARGE: 08/12/2018 FINAL DIAGNOSES: 1. Acute pulmonary edema from fluid overload. 2. Persistent atrial flutter fibrillation, rate controlled. 3. Hypertensive heart disease. 4. Chronic obstructive pulmonary disease in an ex-smoker. 5. End-stage kidney disease on hemodialysis Thursday, Thursday and Thursday. 6. Chronic rheumatoid arthritis. 7. Hyperlipidemia. 8. Anxiety and depression, not otherwise specified. 9. 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 10.Anemia of chronic kidney disease. 11.Bilateral carotid stenosis. 12.The patient has a new peritoneal dialysis catheter being much showed the patient presented yet again with pulmonary edema did get sequential hemodialysis. Doing much better today tolerating a diet. CONSULTATION: Dr. Wilde and colleagues from Nephrology. PHYSICAL EXAMINATION: Temperature 98.2 pulse 60 minutes 16, blood pressure this afternoon was 130/80. LUNGS: Decreased breath sounds. CARDIOVASCULAR: Heart sounds irregular. PSYCH: AO x3 INVESTIGATIONS: White count 8.3, hemoglobin 9.8, potassium 4.4. DISCHARGE MEDICATIONS: 1. Zoloft 50 mg at bedtime. 2. Eliquis 2.5 mg p.o. b.i.d. 3. Ventolin HFA 2 puffs q.4 p.r.n. 4. PhosLo 660 mg p.o. a.c. t.i.d.. 5. Ambien 5 mg q.h.s. 6. Lasix 80 mg p.o. b.i.d. 7. Hydralazine 100 mg p.o. t.i.d. 8. Norvasc 10 mg p.o. daily. 9. [place] 5 one tablet q.6 p.r.n. 10.Amiodarone 100 mg p.o. b.i.d. 11.Lopressor 50 mg p.o. t.i.d. FOLLOWUP: Follow up with Dr. Desai on 08/05/2018. Keep hemodialysis schedule. . MMODL / IJN: [id number] /
--- NOTE | 2018-08-03 15:02 | CDI ---
Documentation Clarification Form Date: 08/03/18 From: Aracelis Usman Martha Baca, Global Transportation Manager Hours-8:30 am & 5 pm Daniel Admit Date: 07/30/2018 1:45:00 PM Patient Name: Brittany Levin Visit Number: [id number] Discharge Date: 08/02/2018 4:37:00 PM ATTENTION: The Clinical Documentation Specialists (CDI) and [facility] Coding Staff appreciate your assistance in clarifying documentation. Please respond to the clarification below the line at the bottom and electronically sign. The CDI & [facility] Coding staff will review the response and follow-up if needed. Please note: Queries are made part of the Legal Health Record. If you have any questions, please contact the author of this message via ITS. Dr. Steve Hudson Atrial Flutter is documented in the DS. History/Risk factors: HTN, diastolic CHF, ESRD, COPD, anemia of CKD Clinical Indicators: Patient w paroxysmal atrial fibrillation. EKG/telemetry: normal sinus rhythm Treatment: Cordarone 100 mg PO BID, Eliquis 2.5 mg BID, In your professional opinion, in order to capture the severity of condition; can you please clarify the type of Atrial Flutter if known? Typical/Type I Atypical/Type II Other, please specify Unable to determine unable to determine MTDD
== END 2018-08-02 16:37 | disposition home or self-care (01) | DRG 291 ==
LOC: EC 22:05 → 1SOBS 23:40 → OBSVTOIN 07-30 13:45 → 4SSUR 07-30 18:27
PROVIDERS: ADMIT Hospitalist; ATTEND Hospitalist
PROC: 5A1D70Z Performance of Urinary Filtration, Intermittent, Less than 6 Hours Per Day (ICD-10-PCS; principal; 2018-07-30)
PROC: 5A1D70Z Performance of Urinary Filtration, Intermittent, Less than 6 Hours Per Day (ICD-10-PCS; 2018-07-31)
PROC: 5A1D70Z Performance of Urinary Filtration, Intermittent, Less than 6 Hours Per Day (ICD-10-PCS; 2018-08-02)
DX: I13.2 Hypertensive heart and chronic kidney disease with heart failure and with stage 5 chronic kidney disease, or end stage renal disease (principal); I50.33 Acute on chronic diastolic (congestive) heart failure; N18.6 End stage renal disease; J44.1 Chronic obstructive pulmonary disease with (acute) exacerbation; E87.1 Hypo-osmolality and hyponatremia; I48.92 Unspecified atrial flutter; E83.9 Disorder of mineral metabolism, unspecified; I48.0 Paroxysmal atrial fibrillation; I65.23 Occlusion and stenosis of bilateral carotid arteries; M06.9 Rheumatoid arthritis, unspecified; D63.1 Anemia in chronic kidney disease; F32.9 Major depressive disorder, single episode, unspecified; E78.5 Hyperlipidemia, unspecified; I25.10 Atherosclerotic heart disease of native coronary artery without angina pectoris; F41.9 Anxiety disorder, unspecified; M19.90 Unspecified osteoarthritis, unspecified site; Z99.2 Dependence on renal dialysis; Z79.01 Long term (current) use of anticoagulants; Z79.899 Other long term (current) drug therapy; Z87.891 Personal history of nicotine dependence; Z87.01 Personal history of pneumonia (recurrent); Z86.73 Personal history of transient ischemic attack (TIA), and cerebral infarction without residual deficits; Z87.81 Personal history of (healed) traumatic fracture; Z82.49 Family history of ischemic heart disease and other diseases of the circulatory system
CPT/HCPCS: 36415; 71046; 80048; 80053; 82747; 83735; 83880; 84484; 85025; 85610; 85730; 93005; 94640; 99285

== ENCOUNTER 2018-08-08 14:18 | Inpatient (IN) | payer MEDICARE, BC ==
[2018-08-08] MEDS ORDERED: methylPREDNISolone SOD SUCCI 125 MG/2 ML VIAL IV STA (15:13)
[2018-08-08] MEDS ORDERED: IPRATROPIUM 0.5 MG/2.5 ML NEBU INHALATION STA (15:13)
[2018-08-08] MEDS ORDERED: ALBUTEROL NEBULIZED 2.5 MG/3 ML INHALATION STA (15:13)
--- NOTE | 2018-08-08 15:16 | ED ---
General Adult HPI - General Chief complaint: Shortness of Breath Stated complaint: DIFF BREATHING Time Seen by Provider: 08/08/18 14:55 Source: patient, EMS, RN notes reviewed, old records reviewed Mode of arrival: EMS Limitations: no limitations - History of Present Illness Initial comments: 72-year-old female end-stage renal disease on hemodialysis, history of COPD presenting with worsening dyspnea. Patient's was transported by EMS, found to have a noxious saturation of 90%. She is not on home oxygen currently. Last session of hemodialysis was Thursday, today is Thursday. Patient denies significant lower extremity swelling. Denies cough. Denies fever. Denies chest pain. Patient is not currently smoking. - Related Data Home Medications Medication Instructions Recorded Confirmed Sertraline HCl [Zoloft] 50 mg PO HS 04/30/17 07/29/18 Albuterol Inhaler [Ventolin Hfa 2 puff INHALATION RT-Q4H PRN 05/31/18 07/29/18 Inhaler] Calcium Acetate [PhosLo] 667 mg PO AC-TID 05/31/18 07/29/18 Zolpidem [Ambien] 5 mg PO HS 05/31/18 07/29/18 Furosemide [Lasix] 80 mg PO BID 06/24/18 07/29/18 hydrALAZINE HCL [Apresoline] 100 mg PO TID 07/18/18 07/29/18 amLODIPine [Norvasc] 10 mg PO DAILY 07/20/18 07/29/18 Previous Rx's Medication Instructions Recorded Apixaban [Eliquis] 2.5 mg PO BID #60 tablet 02/06/18 Hydrocodone/Acetaminophen [[place] 1 tab PO Q6HR PRN 3 Days #5 tab 07/22/18 5-325] Amiodarone [Cordarone] 100 mg PO BID #60 tab 07/26/18 Metoprolol Tartrate [Lopressor] 50 mg PO TID #90 tab 07/26/18 Allergies Allergy/AdvReac Type Severity Reaction Status Date / Time No Known Allergies Allergy Verified 07/29/18 22:20 Review of Systems ROS Statement: Those systems with pertinent positive or pertinent negative responses have been documented in the HPI. ROS Other: All systems not noted in ROS Statement are negative. Past Medical History Past Medical History: Atrial Fibrillation, Asthma, Heart Failure, COPD, CVA/TIA, Hypertension, Osteoarthritis (OA), Pneumonia, Renal Disease, Syncope Additional Past Medical History / Comment(s): CVA 2006 recent ARF had dialysis cath inserted 02-02-18 gets dialysis Thu-Thu-Thu. History of Any Multi-Drug Resistant Organisms: None Reported Past Surgical History: Tonsillectomy Additional Past Surgical History / Comment(s): ORIF rt ankle-[address], IUD removal, lumbar steroid injections, dental implants, cardioversion, dialysis cath. has ocl on l wrist, states fell 1 1/2 month ago and has a hairline fracture of wrist Past Anesthesia/Blood Transfusion Reactions: No Reported Reaction Additional Past Anesthesia/Blood Transfusion Reaction / Comment(s): Past blood transfusions - no reaction Past Psychological History: Anxiety Smoking Status: Former smoker Past Alcohol Use History: None Reported Past Drug Use History: None Reported - Past Family History Mother Family Medical History: No Reported History Additional Family Medical History / Comment(s): Mother in her 80s from abdominal aortic aneurysm. Father Family Medical History: Myocardial Infarction ([place]) Additional Family Medical History / Comment(s): Father at age 52 from acute [place]. General Exam Limitations: no limitations General appearance: alert, in no apparent distress Head exam: Present: atraumatic, normocephalic Eye exam: Present: normal appearance, PERRL ENT exam: Present: normal exam Neck exam: Present: normal inspection. Absent: tenderness, meningismus Respiratory exam: Present: wheezes, rales. Absent: respiratory distress Cardiovascular Exam: Present: regular rate, normal rhythm GI/Abdominal exam: Present: soft. Absent: distended, tenderness, guarding, rebound Neurological exam: Present: alert, oriented X3, CN II-XII intact. Absent: motor sensory deficit Psychiatric exam: Present: normal affect, normal mood Skin exam: Present: warm, dry, intact. Absent: cyanosis, diaphoretic Course Vital Signs 08/08/18 08/08/18 08/08/18 14:24 16:18 16:33 Temperature 97.6 F Pulse Rate 56 L 58 L 60 Respiratory 18 16 Rate Blood Pressure 173/89 O2 Sat by Pulse 99 Oximetry EKG Findings - EKG Comments: EKG Findings:: EKG: Sinus bradycardia, left atrial enlargement incomplete left bundle no ST segment elevation, ST segment depression in the lateral precordium similar compared to previous EKGs. Ventricular rate of 56, HI interval 182, QRS duration 108, QTC 474. Medical Decision Making - Medical Decision Making 72-year-old history COPD, end-stage renal disease on hemodialysis presenting with dyspnea. On exam patient has bilateral Rales, bilateral wheezing. Chest x-ray obtained, consistent with fluid overload, CHF, with small bilateral effusions. Patient has mild hyponatremia which is at baseline 129. Normal potassium. Mild leukocytosis 12.1, hemoglobin improved at 11 from previous of 9.8. Patient has significantly elevated BNP. She will require hemodialysis, case is discussed with nephrology on-call. Case discussed with admitting physician Dr. Hudson - Lab Data Result diagrams: 08/08/18 15:31 08/08/18 15:31 Lab Results 08/08/18 08/08/18 08/08/18 Range/Units 15:31 15:31 15:31 WBC 12.1 H (3.8-10.6) k/uL RBC 3.53 L (3.80-5.40) m/uL Hgb 11.0 L (11.4-16.0) gm/dL Hct 35.0 (34.0-46.0) % MCV 99.3 (80.0-100.0) fL MCH 31.1 (25.0-35.0) pg MCHC 31.3 (31.0-37.0) g/dL RDW 18.1 H (11.5-15.5) % Plt Count 292 (150-450) k/uL Neutrophils % 87 % Lymphocytes % 4 % Monocytes % 6 % Eosinophils % 1 % Basophils % 0 % Neutrophils # 10.6 H (1.3-7.7) k/uL Lymphocytes # 0.4 L (1.0-4.8) k/uL Monocytes # 0.7 (0-1.0) k/uL Eosinophils # 0.1 (0-0.7) k/uL Basophils # 0.0 (0-0.2) k/uL Hypochromasia Moderate Anisocytosis Slight Macrocytosis Slight PT 10.6 (9.0-12.0) sec INR 1.0 (<1.2) APTT 30.0 (22.0-30.0) sec Sodium 129 L (137-145) mmol/L Potassium 4.8 (3.5-5.1) mmol/L Chloride 91 L (98-107) mmol/L Carbon Dioxide 25 (22-30) mmol/L Anion Gap 13 mmol/L BUN 71 H (7-17) mg/dL Creatinine 4.65 H (0.52-1.04) mg/dL Est GFR (CKD-EPI)AfAm 10 (>60 ml/min/1.73 sqM) Est GFR (CKD-EPI)NonAf 9 (>60 ml/min/1.73 sqM) Glucose 78 (74-99) mg/dL Calcium 9.3 (8.4-10.2) mg/dL Total Bilirubin 0.9 (0.2-1.3) mg/dL AST 46 H (14-36) U/L ALT 34 (9-52) U/L Alkaline Phosphatase 84 (38-126) U/L NT-Pro-B Natriuret Pep pg/mL Total Protein 6.6 (6.3-8.2) g/dL Albumin 3.9 (3.5-5.0) g/dL 08/08/18 Range/Units 15:31 WBC (3.8-10.6) k/uL RBC (3.80-5.40) m/uL Hgb (11.4-16.0) gm/dL Hct (34.0-46.0) % MCV (80.0-100.0) fL MCH (25.0-35.0) pg MCHC (31.0-37.0) g/dL RDW (11.5-15.5) % Plt Count (150-450) k/uL Neutrophils % % Lymphocytes % % Monocytes % % Eosinophils % % Basophils % % Neutrophils # (1.3-7.7) k/uL Lymphocytes # (1.0-4.8) k/uL Monocytes # (0-1.0) k/uL Eosinophils # (0-0.7) k/uL Basophils # (0-0.2) k/uL Hypochromasia Anisocytosis Macrocytosis PT (9.0-12.0) sec INR (<1.2) APTT (22.0-30.0) sec Sodium (137-145) mmol/L Potassium (3.5-5.1) mmol/L Chloride (98-107) mmol/L Carbon Dioxide (22-30) mmol/L Anion Gap mmol/L BUN (7-17) mg/dL Creatinine (0.52-1.04) mg/dL Est GFR (CKD-EPI)AfAm (>60 ml/min/1.73 sqM) Est GFR (CKD-EPI)NonAf (>60 ml/min/1.73 sqM) Glucose (74-99) mg/dL Calcium (8.4-10.2) mg/dL Total Bilirubin (0.2-1.3) mg/dL AST (14-36) U/L ALT (9-52) U/L Alkaline Phosphatase (38-126) U/L NT-Pro-B Natriuret Pep 60864 pg/mL Total Protein (6.3-8.2) g/dL Albumin (3.5-5.0) g/dL Critical Care Time Critical Care Time: Yes Total Critical Care Time: 35 Disposition Clinical Impression: COPD (chronic obstructive pulmonary disease), Acute exacerbation of chronic obstructive airways disease, ESRD (end stage renal disease), CHF (congestive heart failure) Disposition: ADMITTED IP TO THIS [facility] Condition: Stable Is patient prescribed a controlled substance at d/c from ED?: No Referrals: Soren Desai MD [Primary Care Provider] - 1-2 days Decision to Admit Reason: Admit from EC Decision Date: 08/08/18 Decision Time: 19:07
[2018-08-08 16:11] LABS: Anisocytosis Slight; Basophils % (A) 0 %; Eosinophils # (A) 0.1 k/uL (0-0.7); Eosinophils % (A) 1 %; Hypochromasia Moderate; Lymphocytes # (A) 0.4 k/uL (1.0-4.8); Lymphocytes % (A) 4 %; MCH 31.1 pg (25.0-35.0); MCHC 31.3 g/dL (31.0-37.0); MCV 99.3 fL (80.0-100.0); Macrocytosis Slight; Mean Platelet Volume 7.2; Monocytes # (A) 0.7 k/uL (0-1.0); Monocytes % (A) 6 %; Neutrophils # (A) 10.6 k/uL (1.3-7.7); Neutrophils % (A) 87 %; Platelet Count 292 k/uL (150-450); RBC 3.53 m/uL (3.80-5.40); RDW 18.1 % (11.5-15.5); WBC 12.1 k/uL (3.8-10.6)
[2018-08-08 16:20] LABS: Albumin 3.9 g/dL (3.5-5.0); Calcium 9.3 mg/dL (8.4-10.2); Total Bilirubin 0.9 mg/dL (0.2-1.3); Total Protein 6.6 g/dL (6.3-8.2)
[2018-08-08 16:22] LABS: Potassium 4.8 mmol/L (3.5-5.1)
[2018-08-08 16:41] LABS: Prothrombin Time 10.6 sec (9.0-12.0)
--- NOTE | 2018-08-08 17:07 | XR ---
EXAMINATION TYPE: XR chest 2V DATE OF EXAM: 08/08/2018 COMPARISON: 07/29/2018 HISTORY: 72-year-old female shortness of breath, difficulty breathing TECHNIQUE: PA and lateral views FINDINGS: Heart borderline enlarged. Right-sided double-lumen hemodialysis catheter with tips in the upper righ t atrium. Diffuse interstitial prominence. Small right and trace left pleural effusions. Some [place] B lines are demonstrated. Hyperinflation. IMPRESSION: 1. COPD with superimposed mild CHF. Some early interstitial edema is seen at the lung bases. 2. Small right and trace left pleural effusions with adjacent atelectasis and/or consolidation.
[2018-08-08] MEDS ORDERED: IPRATROPIUM-ALBUTEROL 3 ML NEB INHALATION PRN (19:01)
[2018-08-08] MEDS ORDERED: HYDROcodone/APAP 5-325MG 1 EACH TAB PO PRN (19:03)
[2018-08-08] MEDS: IPRATROPIUM-ALBUTEROL 3 ML NEB INHALATION SCH (20:50)
[2018-08-08] MEDS ORDERED: NALOXONE 0.4 MG/ML 1 ML VIAL IV PRN (21:16)
[2018-08-08] MEDS ORDERED: ONDANSETRON 4 MG/2 ML VIAL IVP PRN (21:16)
[2018-08-08] MEDS ORDERED: ACETAMINOPHEN TAB 325 MG TAB PO PRN (21:16)
[2018-08-08] MEDS: hydrALAZINE HCL 50 MG TAB PO SCH (23:02)
[2018-08-08] MEDS: METOPROLOL TARTRATE 50 MG TAB PO SCH (23:03)
[2018-08-08] MEDS: SERTRALINE 50 MG TAB PO SCH (23:03)
[2018-08-08] MEDS: ZOLPIDEM 5 MG TAB PO SCH (23:04)
[2018-08-08] MEDS: methylPREDNISolone SOD SUCCI 125 MG/2 ML VIAL IV SCH (23:04)
[2018-08-08] MEDS: APIXABAN 2.5 MG TABLET PO SCH (23:04)
[2018-08-09] MEDS: AMIODARONE 100 MG TAB PO SCH ×3 (06:53→22:42)
[2018-08-09] MEDS: CALCIUM ACETATE 667 MG CAP PO SCH ×3 (06:56→17:18)
[2018-08-09] MEDS: methylPREDNISolone SOD SUCCI 125 MG/2 ML VIAL IV SCH ×3 (06:56→17:17)
[2018-08-09] MEDS: IPRATROPIUM-ALBUTEROL 3 ML NEB INHALATION SCH ×4 (08:09→21:03)
[2018-08-09] MEDS: INSULIN ASPART (NovoLOG) 100 UNIT/ML VIAL SQ SCH ×4 (08:13→22:43)
[2018-08-09 09:13] LABS: Anisocytosis Slight; HCT 32.8 % (34.0-46.0); HGB 10.2 gm/dL (11.4-16.0); Hypochromasia Moderate; MCH 31.4 pg (25.0-35.0); MCHC 31.2 g/dL (31.0-37.0); MCV 100.7 fL (80.0-100.0); Macrocytosis Moderate; Mean Platelet Volume 7.1; Platelet Count 299 k/uL (150-450); RBC 3.26 m/uL (3.80-5.40); RDW 18.3 % (11.5-15.5); WBC 6.2 k/uL (3.8-10.6)
[2018-08-09 09:29] LABS: Calcium 8.4 mg/dL (8.4-10.2); Magnesium 2.2 mg/dL (1.6-2.3); Potassium 4.1 mmol/L (3.5-5.1)
[2018-08-09] MEDS: hydrALAZINE HCL 50 MG TAB PO SCH ×3 (10:14→22:30)
[2018-08-09] MEDS: FUROSEMIDE 80 MG TAB PO SCH ×2 (10:14→16:02)
[2018-08-09 11:36] VITALS: RESP 18
[2018-08-09] MEDS: amLODIPine 10 MG TAB PO SCH (11:44)
[2018-08-09] MEDS: APIXABAN 2.5 MG TABLET PO SCH ×2 (11:44→22:42)
--- NOTE | 2018-08-09 11:59 | P.NPCON ---
History of Present Illness - Reason for Consult end stage renal disease - History of Present Illness Reason for consultation: End-stage renal disease History of present illness: Patient is a 72-year-old female seen in renal consultation for end-stage renal disease. She is maintained on hemodialysis on a Thursday schedule. She is a permacath. Patient also had a PD catheter placed recently and is scheduled to start training in the near future. Patient has history of diastolic CHF with frequent admissions to the hospital for fluid overload. Patient presented to the hospital with dyspnea. Patient states her last hemodialysis was on Thursday. No vomiting or diarrhea. Appetite is fair. Currently seen while undergoing hemodialysis. No active complaints at this time. Vital signs are stable. General: The patient appeared well nourished and normally developed. HEENT: Head exam is unremarkable. Neck is without jugular venous distension. LUNGS: Breath sounds decreased. HEART: Rate and Rhythm are regular. First and second heart sounds normal. No murmurs, rubs or gallops. ABDOMEN: Abdominal exam reveals normal bowel sounds. Non-tender and non- distended. No evidence of peritonitis. EXTREMITITES: No clubbing, cyanosis, or edema. Past Medical History Past Medical History: Atrial Fibrillation, Asthma, Heart Failure, COPD, CVA/TIA, Hypertension, Osteoarthritis (OA), Pneumonia, Renal Disease, Syncope Additional Past Medical History / Comment(s): CVA 2006 recent ARF had dialysis cath inserted 02-02-18 gets dialysis Thu-Thu-Thu. History of Any Multi-Drug Resistant Organisms: None Reported Past Surgical History: Tonsillectomy Additional Past Surgical History / Comment(s): ORIF rt ankle-[address], IUD removal, lumbar steroid injections, dental implants, cardioversion, dialysis cath. has ocl on l wrist, states fell 1 1/2 month ago and has a hairline fracture of wrist Past Anesthesia/Blood Transfusion Reactions: No Reported Reaction Additional Past Anesthesia/Blood Transfusion Reaction / Comment(s): Past blood transfusions - no reaction Past Psychological History: Anxiety Smoking Status: Former smoker Past Alcohol Use History: None Reported Additional Past Alcohol Use History / Comment(s): Patient smoked one and half packs of cigarettes per day started in 1973 and quit 2007. Patient used to drink heavily-none now Past Drug Use History: None Reported - Past Family History Mother Family Medical History: No Reported History Additional Family Medical History / Comment(s): Mother in her 80s from abdominal aortic aneurysm. Father Family Medical History: Myocardial Infarction ([place]) Additional Family Medical History / Comment(s): Father at age 52 from acute [place]. Medications and Allergies Home Medications Medication Instructions Recorded Confirmed Type Sertraline HCl [Zoloft] 50 mg PO HS 04/30/17 08/08/18 History Apixaban [Eliquis] 2.5 mg PO BID #60 tablet 02/06/18 08/08/18 Rx Albuterol Inhaler [Ventolin Hfa 2 puff INHALATION RT-Q4H PRN 05/31/18 08/08/18 History Inhaler] Calcium Acetate [PhosLo] 667 mg PO AC-TID 05/31/18 08/08/18 History Zolpidem [Ambien] 5 mg PO HS 05/31/18 08/08/18 History Furosemide [Lasix] 80 mg PO BID 06/24/18 08/08/18 History hydrALAZINE HCL [Apresoline] 100 mg PO TID 07/18/18 08/08/18 History amLODIPine [Norvasc] 10 mg PO DAILY 07/20/18 08/08/18 History Amiodarone [Cordarone] 100 mg PO BID #60 tab 07/26/18 08/08/18 Rx Metoprolol Tartrate [Lopressor] 50 mg PO TID #90 tab 07/26/18 08/08/18 Rx Allergies Allergy/AdvReac Type Severity Reaction Status Date / Time No Known Allergies Allergy Verified 08/08/18 19:43 Physical Exam Vitals: Vital Signs Temp Pulse Pulse Resp BP BP Pulse Ox 08/09/18 11:35 97.0 F L 66 18 178/92 99 08/09/18 11:04 66 22 08/09/18 08:21 64 08/09/18 08:11 60 98 08/09/18 08:10 66 22 08/09/18 08:09 98.0 F 66 22 156/66 97 08/09/18 04:00 97.4 F L 60 18 160/78 99 08/09/18 00:00 98.0 F 61 18 161/79 98 08/08/18 21:31 98.4 F 62 16 159/76 97 08/08/18 21:20 98.4 F 62 16 159/76 97 08/08/18 19:54 60 16 179/80 98 08/08/18 16:33 60 08/08/18 16:18 58 L 16 08/08/18 14:24 97.6 F 56 L 18 173/89 99 Intake and Output 08/08/18 08/09/18 08/09/18 22:59 06:59 14:59 Intake Total 120 Output Total 300 Balance -300 120 Intake: Oral 120 Output: Urine 300 Other: Voiding Method Toilet Toilet Toilet # Voids 1 Weight 52.7 kg Results - Lab Results Most recent lab results Calcium 8.4 mg/dL (8.4-10.2) 08/09/18 08:49 Magnesium 2.2 mg/dL (1.6-2.3) 08/09/18 08:49 08/09/18 08:49 08/09/18 08:49 Assessment and Plan Plan: Assessment: 1. End-stage renal disease maintained on hemodialysis on a Thursday scheduled for permacat. Patient has a PD catheter and will be transitioning over to PD in the near future. 2. Dyspnea secondary to volume overload. 3. Hyponatremia secondary to chronic kidney disease. Currently hypervolemic. 4. Chronic kidney disease mineral bone disease maintained on PhosLo. 5. Diastolic CHF. 6. Hypertension with chronic kidney disease. Home meds have been resumed. Expect further improvement postdialysis. 7. Anemia of chronic kidney disease. Hemoglobin at goal. Plan: Currently seen while undergoing hemodialysis. I will do an extra treatment tomorrow if she is still in the hospital tomorrow. Stressed compliance with hemodialysis treatments. She will be transitioning to peritoneal dialysis in the near future and hopefully this will lead to better volume control and prevent the frequent hospitalizations. Thank you for the consultation. I will continue to follow the patient with you during her hospital stay.
[2018-08-09 12:01] LABS: Glucose,Whole Blood 97 mg/dL (75-99)
--- NOTE | 2018-08-09 15:20 | DS ---
DISCHARGE SUMMARY DATE OF ADMISSION: 08/08/2018 DATE OF DISCHARGE: 08/09/2018 PRESENTING COMPLAINT: Short of breath. HISTORY OF PRESENTING COMPLAINT: This is a pleasant 72-year-old patient with extensive medical history. Chronic stable medical conditions include COPD, end-stage kidney disease on hemodialysis, hypertensive heart disease, rheumatoid arthritis, hyperlipidemia, anxiety, depression, chronic anemia. Patient has had multiple admissions for pulmonary edema. Patient's last hemodialysis was on Thursday, yesterday became rather short of breath. No fever, chills. No cough and patient admitted with pulmonary edema. Earlier this morning, patient did undergo hemodialysis and 4.5 L was removed. Post hemodialysis, patient is really feeling well, sitting up beside the bed, breathing comfortably. Patient does drink quite a bit of water and she said she has maintained her hemodialysis schedule. There is no fever, no chills, no edema. REVIEW OF SYSTEMS: CONSTITUTIONAL: Tired. HEENT: Decreased hearing. RESPIRATORY: As above. CARDIOVASCULAR: No chest pain. GENITOURINARY None. GASTROINTESTINAL: None. MUSCULOSKELETAL: Pain in the joints. Recent fracture of the left wrist. DERMATOLOGICAL: None. HEMATOLOGICAL: None. LYMPHATIC: None. PSYCHIATRY: Anxiety. NEUROLOGICAL: None. PAST MEDICAL HISTORY: Anemia of chronic kidney disease, chronic mineral bone disease, hypertension, anxiety, depression, hyperlipidemia, rheumatoid arthritis, end-stage kidney disease on hemodialysis, paroxysmal atrial fibrillation, congestive heart failure, EF 45%-50%. PAST SURGICAL HISTORY: Tonsillectomy, ORIF of the right ankle, [address], lumbar steroid injections, dental implants, cardioversion, hemodialysis catheter. Patient recently had peritoneal dialysis catheter placed. SOCIAL HISTORY: Patient smoked a pack and half cigarettes, stopped 8 years ago. Smoked for close to 35 years, was a heavy drinker in the past. . FAMILY HISTORY: Mother had abdominal aortic aneurysm. HOME MEDICATIONS: 1. Hydralazine 100 mg t.i.d. 2. Norvasc 10 mg a day. 3. Ambien 5 mg q.h.s. 4. Zoloft 50 mg q.h.s. 5. Lopressor 50 mg t.i.d. 6. Lasix 80 mg b.i.d. 7. PhosLo 667 mg p.o. t.i.d. 8. Eliquis 2.5 mg p.o. b.i.d. 9. Cordarone 100 mg p.o. b.i.d. 10.Ventolin HFA 2 puffs q.4 p.r.n. ALLERGIES: None. PHYSICAL EXAMINATION: Vital signs on presentation, temperature 97.6, pulse 66, respiratory 18, blood pressure 130/89, pulse ox 99% on 2 L. GENERAL APPEARANCE: Sitting up, comfortable. EYES: Pupils equal, conjunctivae normal. HEENT: External appearance of nose and ears normal. Oral cavity, normal, decreased hearing. NECK: JVD not raised. Mass not palpable. RESPIRATORY: Effort increased. LUNGS: Diminished breath sounds. CARDIOVASCULAR: First and second sounds normal, no edema. ABDOMEN: Soft, nontender. Liver and spleen not palpable. LYMPHATIC: No lymph node palpable. PSYCHIATRY: Alert and oriented x3. Mood and affect normal. NEUROLOGICAL: Pupils equal. Cranial nerves grossly intact. ABDOMEN: PD catheter in place. INVESTIGATIONS: White count count 12.1, hemoglobin 11.0, platelets 292. Potassium 4.8, BUN 31, creatinine 4.65. EKG tracing personally reviewed by me shows sinus rhythm, some ST- segment depression. Chest x-ray film personally reviewed by me shows some venous prominence. ASSESSMENT: 1. Acute on chronic congestive heart failure exacerbation from fluid overload from systolic and diastolic dysfunction, ejection fraction 45%-50%. 2. End-stage kidney disease on hemodialysis Thursday, Thursday and Thursday. 3. Hypertensive heart disease. 4. Chronic obstructive pulmonary disease in an ex-smoker. 5. Paroxysmal atrial fibrillation currently in sinus rhythm. 6. Chronic rheumatoid arthritis. 7. Hyperlipidemia. 8. Anxiety and depression, not otherwise specified. 9. 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 10.Anemia of chronic kidney disease. PLAN: Patient had 4.5 L of fluid removed. Clinically is euvolemic, doing well. Patient has no other respiratory symptoms. Did speak to Dr. Wilde, did speak to the patient and at length. Told to restrict the fluid intake as patient likes to drink water quite a bit. I did speak to Dr. Wilde again. He will be arranging from home peritoneal dialysis teaching that was actually is continue scheduled for today, that is being arranged. Patient will be discharged home. Otherwise medically stable. Home medications to continue. FOLLOWUP: With hemodialysis schedule at home. Home hemodialysis training. THIS IS BOTH A HISTORY AND PHYSICAL AND DISCHARGE SUMMARY ON [facility]. MMODL / IJN: [id number] /
[2018-08-09] MEDS: METOPROLOL TARTRATE 50 MG TAB PO SCH ×2 (16:02→22:30)
[2018-08-09 16:27] LABS: Glucose,Whole Blood 315 mg/dL (75-99)
[2018-08-09 20:54] LABS: Glucose,Whole Blood 135 mg/dL (75-99)
[2018-08-09] MEDS: ZOLPIDEM 5 MG TAB PO SCH (22:42)
[2018-08-09] MEDS: SERTRALINE 50 MG TAB PO SCH (22:43)
[2018-08-10] MEDS: methylPREDNISolone SOD SUCCI 125 MG/2 ML VIAL IV SCH ×3 (00:30→17:07)
[2018-08-10 05:43] LABS: Glucose,Whole Blood 112 mg/dL (75-99)
[2018-08-10] MEDS: CALCIUM ACETATE 667 MG CAP PO SCH ×3 (06:42→17:17)
[2018-08-10] MEDS: INSULIN ASPART (NovoLOG) 100 UNIT/ML VIAL SQ SCH ×3 (06:44→17:07)
[2018-08-10] MEDS: IPRATROPIUM-ALBUTEROL 3 ML NEB INHALATION SCH ×3 (08:16→16:44)
--- NOTE | 2018-08-10 10:48 | P.PN ---
Subjective Patient is seen in follow-up for end-stage renal disease. She is maintained on hemodialysis on a Thursday schedule. Permacath. She tolerated hemodialysis well yesterday with nearly 4 L ultrafiltration. However the patient wanted to stay and get an extra treatment of hemodialysis today. She denies any chest pain. Dyspnea is improved. No vomiting or diarrhea. Vital signs are stable. General: The patient appeared well nourished and normally developed. HEENT: Head exam is unremarkable. Neck is without jugular venous distension. LUNGS: Breath sounds decreased. HEART: Rate and Rhythm are regular. First and second heart sounds normal. No murmurs, rubs or gallops. ABDOMEN: Abdominal exam reveals normal bowel sounds. Non-tender and non- distended. No evidence of peritonitis. EXTREMITITES: No clubbing, cyanosis, or edema. Objective - Vital Signs Vital signs: Vital Signs Temp 98.1 F 08/10/18 04:00 Pulse 68 08/10/18 08:24 Resp 18 08/10/18 04:00 BP 155/81 08/10/18 04:00 Pulse Ox 95 08/10/18 04:00 Intake & Output 08/09/18 08/10/18 08/10/18 18:59 06:59 18:59 Intake Total 360 240 Output Total 175 150 Balance 185 -150 240 Weight 49.6 kg Intake: Oral 360 240 Output: Urine 175 150 Other: Voiding Method Toilet Toilet # Voids 1 1 - Labs CBC & Chem 7: 08/09/18 08:49 08/09/18 08:49 Labs: Abnormal Lab Results - Last 24 Hours (Table) 08/09/18 08/09/18 08/10/18 Range/Units 16:22 20:52 05:41 POC Glucose (mg/dL) 315 H 135 H 112 H (75-99) mg/dL Assessment and Plan Plan: Assessment: 1. End-stage renal disease maintained on hemodialysis on a Thursday scheduled for permacath. Patient has a PD catheter and will be transitioning over to PD in the near future. 2. Dyspnea secondary to volume overload. Improved with ultrafiltration. 3. Hyponatremia secondary to chronic kidney disease. Currently hypervolemic. 4. Chronic kidney disease mineral bone disease maintained on PhosLo. 5. Diastolic CHF. 6. Hypertension with chronic kidney disease. Home meds have been resumed. Stable. 7. Anemia of chronic kidney disease. Hemoglobin at goal. Plan: Extra hemodialysis treatment today mostly for ultrafiltration. She will be transitioning to peritoneal dialysis in the near future and hopefully this will lead to better volume control and prevent the frequent hospitalizations. Stable to be discharged home after dialysis today. She will go to her outpatient dialysis unit for dialysis tomorrow.
[2018-08-10 11:28] LABS: Glucose,Whole Blood 115 mg/dL (75-99)
[2018-08-10 11:38] VITALS: BMI 18.1
[2018-08-10 13:03] VITALS: TEMP 98
[2018-08-10 16:22] LABS: Glucose,Whole Blood 123 mg/dL (75-99)
[2018-08-10] MEDS: APIXABAN 2.5 MG TABLET PO SCH (17:17)
[2018-08-10] MEDS: FUROSEMIDE 80 MG TAB PO SCH (17:17)
[2018-08-10] MEDS: METOPROLOL TARTRATE 50 MG TAB PO SCH (17:17)
[2018-08-10] MEDS: hydrALAZINE HCL 50 MG TAB PO SCH (17:17)
[2018-08-10] MEDS: AMIODARONE 100 MG TAB PO SCH (17:18)
[2018-08-10] MEDS: amLODIPine 10 MG TAB PO SCH (17:18)
[2018-08-10 17:23] VITALS: BP 170/94; PULSE 80
--- NOTE | 2018-08-10 21:59 | HP ---
HISTORY AND PHYSICAL ADDENDUM: DATE OF ADMISSION: August 08, 2018. DATE OF SERVICE: August 09, 2018 My document dictated on August 09, 2018 at 1436, date transcribed on August 09, 2018 at 3:15 pm, this is a history and physical on this patient. MMODL / IJN: [id number] /
--- NOTE | 2018-08-11 07:18 | DS ---
DISCHARGE SUMMARY DATE OF ADMISSION: 08/08/2018 DATE OF DISCHARGE: 08/10/2018 FINAL DIAGNOSES: 1. Acute on chronic congestive heart failure exacerbation from fluid overload from systolic and diastolic dysfunction, ejection fraction 45%-50%. 2. End-stage kidney disease on hemodialysis Thursday, Thursday and Thursday. 3. Hypertensive heart disease. 4. Chronic obstructive pulmonary disease in an ex-smoker. 5. Paroxysmal atrial fibrillation currently in sinus rhythm. 6. Chronic rheumatoid arthritis. 7. Hyperlipidemia. 8. Anxiety and depression, not otherwise specified. 9. 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 10.Anemia of chronic kidney disease. HOSPITAL COURSE: The patient admitted with pulmonary edema, CHF. Yet again, was on hemodialysis the first day. Patient was supposed to go home yesterday felt a bit tired, short of breath. Nurse called Dr. Wilde who said okay the patient to hold back, patient today underwent dialysis again. Doing much better. Patient will be having peritoneal dialysis teaching this coming Thursday. I did discuss the care with Dr. Wilde and the patient is told to keep her appointment tomorrow for the hemodialysis, which is a scheduled date. PHYSICAL EXAMINATION: Temperature 98, pulse 80, respiration 18, blood pressure 170/94, pulse ox 95% on room air. LUNGS: Decreased breath sounds. PSYCH: AO x3. INVESTIGATION: Accu-Cheks are noted. DISCHARGE MEDICATIONS: 1. Zoloft 50 mg q.h.s. 2. Eliquis 2.5 p.o. b.i.d. 3. Ventolin HFA 2 puffs q.4 p.r.n. 4. PhosLo 667 mg p.o. t.i.d. 5. Ambien 5 mg q.h.s. 6. Lasix 80 mg p.o. b.i.d. 7. Hydralazine 100 mg t.i.d. 8. Norvasc 10 mg p.o. daily. 9. Cordarone 100 mg p.o. b.i.d. 10.Lopressor 50 mg p.o. t.i.d. DISPOSITION: Home. Follow up with Dr. Desai in 3 days. Follow up with Dr. Wilde in 1 week. Hemodialysis schedule to be maintained. Peritoneal dialysis to start next Thursday. MMODL / IJN: [id number] /
== END 2018-08-10 17:35 | disposition home or self-care (01) | DRG 291 ==
LOC: EC 14:18 → 3SCARD 19:03
PROVIDERS: ADMIT Hospitalist; ATTEND Hospitalist
PROC: 5A1D70Z Performance of Urinary Filtration, Intermittent, Less than 6 Hours Per Day (ICD-10-PCS; principal; 2018-08-09)
DX: I13.2 Hypertensive heart and chronic kidney disease with heart failure and with stage 5 chronic kidney disease, or end stage renal disease (principal); I50.43 Acute on chronic combined systolic (congestive) and diastolic (congestive) heart failure; N18.6 End stage renal disease; E87.1 Hypo-osmolality and hyponatremia; D63.1 Anemia in chronic kidney disease; D72.829 Elevated white blood cell count, unspecified; E78.5 Hyperlipidemia, unspecified; F32.9 Major depressive disorder, single episode, unspecified; F41.9 Anxiety disorder, unspecified; I48.0 Paroxysmal atrial fibrillation; J44.9 Chronic obstructive pulmonary disease, unspecified; Z87.891 Personal history of nicotine dependence; M06.9 Rheumatoid arthritis, unspecified; M89.8X9 Other specified disorders of bone, unspecified site; Z79.01 Long term (current) use of anticoagulants; Z79.899 Other long term (current) drug therapy; Z82.49 Family history of ischemic heart disease and other diseases of the circulatory system; Z86.73 Personal history of transient ischemic attack (TIA), and cerebral infarction without residual deficits; Z99.2 Dependence on renal dialysis; Z87.01 Personal history of pneumonia (recurrent); S62.102D Fracture of unspecified carpal bone, left wrist, subsequent encounter for fracture with routine healing
CPT/HCPCS: 36415; 71046; 80048; 80053; 83735; 83880; 85025; 85027; 85610; 85730; 90935; 93005; 94640; 94760; 96374; 99285

== ENCOUNTER 2018-08-15 23:29 | Inpatient (IN) | payer MEDICARE, BC ==
--- NOTE | 2018-08-16 00:31 | ED ---
SOB HPI - General Chief Complaint: Shortness of Breath Stated Complaint: SOB Time Seen by Provider: 08/15/18 23:44 Source: patient, EMS Mode of arrival: EMS Limitations: no limitations - History of Present Illness Initial Comments: This patient is a 72-year-old woman presenting with complaint that she is short of breath. The patient is a poor historian. She does not characterize her symptoms well. When asked about duration she is not able to answer. Her states that this happens on every day that she does not receive dialysis treatment. Patient is denying fevers. She denies chest pain. She does complain of cough occasionally with some white sputum. Patient denies leg pain or edema. MD Complaint: shortness of breath Onset/Timin -: days(s) Consistency: constant Improves With: nothing Worsens With: lying flat Known History Of: other (Kidney failure) Associated Symptoms: denies other symptoms Treatments Prior to Arrival: none - Related Data Home Medications Medication Instructions Recorded Confirmed Sertraline HCl [Zoloft] 50 mg PO HS 04/30/17 08/15/18 Albuterol Inhaler [Ventolin Hfa 2 puff INHALATION RT-Q4H PRN 05/31/18 08/15/18 Inhaler] Calcium Acetate [PhosLo] 667 mg PO AC-TID 05/31/18 08/15/18 Zolpidem [Ambien] 5 mg PO HS 05/31/18 08/15/18 Furosemide [Lasix] 80 mg PO BID 06/24/18 08/15/18 hydrALAZINE HCL [Apresoline] 100 mg PO TID 07/18/18 08/15/18 amLODIPine [Norvasc] 10 mg PO DAILY 07/20/18 08/15/18 Previous Rx's Medication Instructions Recorded Apixaban [Eliquis] 2.5 mg PO BID #60 tablet 02/06/18 Amiodarone [Cordarone] 100 mg PO BID #60 tab 07/26/18 Metoprolol Tartrate [Lopressor] 50 mg PO TID #90 tab 07/26/18 Allergies Allergy/AdvReac Type Severity Reaction Status Date / Time No Known Allergies Allergy Verified 08/15/18 23:40 Review of Systems ROS Statement: Those systems with pertinent positive or pertinent negative responses have been documented in the HPI. ROS Other: All systems not noted in ROS Statement are negative. Constitutional: Denies: fever, chills Respiratory: Reports: dyspnea. Denies: cough, hemoptysis Cardiovascular: Denies: chest pain, palpitations, edema, syncope Gastrointestinal: Denies: abdominal pain, vomiting, diarrhea Musculoskeletal: Denies: back pain Skin: Denies: rash Neurological: Denies: headache Past Medical History Past Medical History: Atrial Fibrillation, Asthma, Heart Failure, COPD, CVA/TIA, Hypertension, Osteoarthritis (OA), Pneumonia, Renal Disease, Syncope Additional Past Medical History / Comment(s): CVA 2006 recent ARF had dialysis cath inserted 02-02-18 gets dialysis Thu-Thu-Thu. History of Any Multi-Drug Resistant Organisms: None Reported Past Surgical History: Tonsillectomy Additional Past Surgical History / Comment(s): ORIF rt ankle-[address], IUD removal, lumbar steroid injections, dental implants, cardioversion, dialysis cath. has ocl on l wrist, states fell 1 1/2 month ago and has a hairline fracture of wrist Past Anesthesia/Blood Transfusion Reactions: No Reported Reaction Additional Past Anesthesia/Blood Transfusion Reaction / Comment(s): Past blood transfusions - no reaction Past Psychological History: Anxiety Smoking Status: Former smoker Past Alcohol Use History: None Reported Past Drug Use History: None Reported - Past Family History Mother Family Medical History: No Reported History Additional Family Medical History / Comment(s): Mother in her 80s from abdominal aortic aneurysm. Father Family Medical History: Myocardial Infarction ([place]) Additional Family Medical History / Comment(s): Father at age 52 from acute [place]. General Exam Limitations: no limitations General appearance: alert, in no apparent distress Head exam: Present: atraumatic, normocephalic Eye exam: Present: normal appearance Respiratory exam: Present: rhonchi. Absent: respiratory distress, wheezes, rales, stridor Cardiovascular Exam: Present: normal rhythm, bradycardia, normal heart sounds. Absent: systolic murmur, diastolic murmur, rubs, gallop GI/Abdominal exam: Present: soft. Absent: distended, tenderness, guarding, rebound, rigid, mass Extremities exam: Present: normal inspection, normal capillary refill. Absent: pedal edema, calf tenderness Neurological exam: Present: alert Skin exam: Present: warm, dry, intact, normal color. Absent: rash Course Vital Signs 08/15/18 08/16/18 08/16/18 23:30 02:32 05:10 Temperature 97.3 F L 97.7 F Pulse Rate 48 L 49 L 49 L Respiratory 18 22 18 Rate Blood Pressure 164/62 159/74 157/70 O2 Sat by Pulse 97 94 L 95 Oximetry 08/16/18 06:19 Temperature Pulse Rate 49 L Respiratory 15 Rate Blood Pressure 159/78 O2 Sat by Pulse 96 Oximetry Medical Decision Making - Medical Decision Making Patient is 72-year-old woman with end-stage renal disease who presents with volume overload. The patient's sats and respiratory status improved with the nasal cannula oxygen. Case discussed with the vocational rehabilitation administrator who will have her dialyzed first thing in t morning. His treatment recommendations are incorporated. - Lab Data Result diagrams: 08/16/18 00:00 08/16/18 00:00 Lab Results 08/16/18 08/16/18 08/16/18 Range/Units 00:00 00:00 00:00 WBC 11.1 H (3.8-10.6) k/uL RBC 4.23 (3.80-5.40) m/uL Hgb 12.6 (11.4-16.0) gm/dL Hct 41.1 (34.0-46.0) % MCV 97.1 (80.0-100.0) fL MCH 29.9 (25.0-35.0) pg MCHC 30.7 L (31.0-37.0) g/dL RDW 16.8 H (11.5-15.5) % Plt Count 247 (150-450) k/uL Neutrophils % 89 % Lymphocytes % 3 % Monocytes % 5 % Eosinophils % 2 % Basophils % 0 % Neutrophils # 9.8 H (1.3-7.7) k/uL Lymphocytes # 0.3 L (1.0-4.8) k/uL Monocytes # 0.6 (0-1.0) k/uL Eosinophils # 0.2 (0-0.7) k/uL Basophils # 0.0 (0-0.2) k/uL Hypochromasia Slight Anisocytosis Slight Macrocytosis Slight PT (9.0-12.0) sec INR (<1.2) APTT (22.0-30.0) sec Sodium 132 L (137-145) mmol/L Potassium 5.1 (3.5-5.1) mmol/L Chloride 92 L (98-107) mmol/L Carbon Dioxide 20 L (22-30) mmol/L Anion Gap 20 mmol/L BUN 82 H (7-17) mg/dL Creatinine 6.71 H (0.52-1.04) mg/dL Est GFR (CKD-EPI)AfAm 7 (>60 ml/min/1.73 sqM) Est GFR (CKD-EPI)NonAf 6 (>60 ml/min/1.73 sqM) Glucose 104 H (74-99) mg/dL Calcium 9.2 (8.4-10.2) mg/dL Total Bilirubin 0.6 (0.2-1.3) mg/dL AST 23 (14-36) U/L ALT 23 (9-52) U/L Alkaline Phosphatase 116 (38-126) U/L Troponin I (0.000-0.034) ng/mL NT-Pro-B Natriuret Pep 23743 pg/mL Total Protein 7.1 (6.3-8.2) g/dL Albumin 4.1 (3.5-5.0) g/dL 08/16/18 08/16/18 Range/Units 00:00 00:00 WBC (3.8-10.6) k/uL RBC (3.80-5.40) m/uL Hgb (11.4-16.0) gm/dL Hct (34.0-46.0) % MCV (80.0-100.0) fL MCH (25.0-35.0) pg MCHC (31.0-37.0) g/dL RDW (11.5-15.5) % Plt Count (150-450) k/uL Neutrophils % % Lymphocytes % % Monocytes % % Eosinophils % % Basophils % % Neutrophils # (1.3-7.7) k/uL Lymphocytes # (1.0-4.8) k/uL Monocytes # (0-1.0) k/uL Eosinophils # (0-0.7) k/uL Basophils # (0-0.2) k/uL Hypochromasia Anisocytosis Macrocytosis PT 10.7 (9.0-12.0) sec INR 1.0 (<1.2) APTT 30.9 H (22.0-30.0) sec Sodium (137-145) mmol/L Potassium (3.5-5.1) mmol/L Chloride (98-107) mmol/L Carbon Dioxide (22-30) mmol/L Anion Gap mmol/L BUN (7-17) mg/dL Creatinine (0.52-1.04) mg/dL Est GFR (CKD-EPI)AfAm (>60 ml/min/1.73 sqM) Est GFR (CKD-EPI)NonAf (>60 ml/min/1.73 sqM) Glucose (74-99) mg/dL Calcium (8.4-10.2) mg/dL Total Bilirubin (0.2-1.3) mg/dL AST (14-36) U/L ALT (9-52) U/L Alkaline Phosphatase (38-126) U/L Troponin I 0.028 (0.000-0.034) ng/mL NT-Pro-B Natriuret Pep pg/mL Total Protein (6.3-8.2) g/dL Albumin (3.5-5.0) g/dL - EKG Data -: EKG Interpreted by Ca EKG shows normal: sinus rhythm, axis (Normal), intervals (Normal) Rate: bradycardia (Rate approximate 48 bpm) Interpretation: LVH (With repolarization), other (ECG is similar to the previous comparison) Disposition Clinical Impression: ESRD (end stage renal disease), Fluid overload Disposition: ADMITTED IP TO [facility] Condition: Poor
[2018-08-16 00:39] LABS: Anisocytosis Slight; Basophils % (A) 0 %; Eosinophils # (A) 0.2 k/uL (0-0.7); Eosinophils % (A) 2 %; HCT 41.1 % (34.0-46.0); HGB 12.6 gm/dL (11.4-16.0); Hypochromasia Slight; Lymphocytes # (A) 0.3 k/uL (1.0-4.8); Lymphocytes % (A) 3 %; MCH 29.9 pg (25.0-35.0); MCHC 30.7 g/dL (31.0-37.0); MCV 97.1 fL (80.0-100.0); Macrocytosis Slight; Mean Platelet Volume 6.9; Monocytes # (A) 0.6 k/uL (0-1.0); Monocytes % (A) 5 %; Neutrophils # (A) 9.8 k/uL (1.3-7.7); Neutrophils % (A) 89 %; Platelet Count 247 k/uL (150-450); RBC 4.23 m/uL (3.80-5.40); RDW 16.8 % (11.5-15.5); WBC 11.1 k/uL (3.8-10.6)
--- NOTE | 2018-08-16 00:43 | XR ---
EXAM: XR Chest, 1 View CLINICAL HISTORY: dyspnea TECHNIQUE: Frontal view of the chest. COMPARISON: 08/08/18 FINDINGS: Lungs: Mild diffuse interstitial and airspace opacities in both lungs, slightly more on the right. Pleural space: Minimal right pleural effusion is decreased. No pneumothorax. Heart: Unremarkable. No cardiomegaly. Mediastinum: Unremarkable. Bones/joints: Osteopenia. Tubes, lines and devices: Right permacath is again noted. IMPRESSION: Minimal right pleural effusion is decreased. Otherwise, no substantial change
[2018-08-16 00:48] LABS: Partial Thromboplastin Time 30.9 sec (22.0-30.0); Prothrombin Time 10.7 sec (9.0-12.0)
[2018-08-16 00:53] LABS: Albumin 4.1 g/dL (3.5-5.0); Calcium 9.2 mg/dL (8.4-10.2); Potassium 5.1 mmol/L (3.5-5.1); Total Bilirubin 0.6 mg/dL (0.2-1.3); Total Protein 7.1 g/dL (6.3-8.2)
[2018-08-16] MEDS ORDERED: LORazepam 2 MG/ML INJ IV STA (04:31)
[2018-08-16] MEDS ORDERED: MORPHINE SULFATE 4 MG/ML SYRINGE IV STA (04:31)
[2018-08-16] MEDS ORDERED: NITROGLYCERIN OINT 1 INCH/GM PACKET TOPICAL STA (04:32)
[2018-08-16] MEDS: NITROGLYCERIN OINT 1 INCH/GM PACKET TOPICAL SCH ×4 (08:13→20:56)
[2018-08-16] MEDS: CALCIUM ACETATE 667 MG CAP PO SCH ×2 (13:37→17:11)
[2018-08-16] MEDS: FUROSEMIDE 80 MG TAB PO SCH (17:11)
[2018-08-16] MEDS: METOPROLOL TARTRATE 50 MG TAB PO SCH ×2 (17:11→21:08)
[2018-08-16] MEDS: hydrALAZINE HCL 50 MG TAB PO SCH ×2 (17:11→21:08)
[2018-08-16 20:43] LABS: Hepatitis B Surface AB- Quant 3.5 mIU/mL
[2018-08-16] MEDS: SERTRALINE 50 MG TAB PO SCH (21:08)
[2018-08-16] MEDS: APIXABAN 2.5 MG TABLET PO SCH (21:08)
[2018-08-16] MEDS: AMIODARONE 100 MG TAB PO SCH (21:08)
--- NOTE | 2018-08-16 21:57 | P.HPIM ---
History of Present Illness H&P Date: 08/16/18 Chief Complaint: Shortness of breath Patient is a 72-year-old female with a known history of paroxysmal atrial fibrillation on anticoagulation, chronic CHF with diastolic dysfunction, ESRD currently on hemodialysis Thursday and Thursday, COPD, hypertension and history of CVA in 2005 came to ER with complaints of shortness of breath. Patient did have hemodialysis on Thursday. Patient has been having worsening shortness of breath for the past 2 days. Patient is currently on hemodialysis. Patient is otherwise a poor historian denied any fever or chills. No complaints of chest pain. Breath cough with whitish sputum production. No leg swelling. Denied any abdominal pain, nausea or vomiting or diarrhea. Chest x-ray showedminimal right pleural effusion is decreased. Otherwise no substantial change. EKG showed sinus bradycardia. Troponin 1 negative BNP 73 600 Review of Systems Constitutional: Patient denies any fever or chills . No generalized weakness or weight loss. Abdomen: Patient denied nausea vomiting and diarrhea and abdominal pain. Cardiovascular: Patient denies any chest pain or short of breath no palpitations. Respiratory: patient denied any cough is from production. No shortness of breath Neurologic: Patient denied any numbness or tingling headache. Complete review of systems could not be obtained from the patient. Past Medical History Past Medical History: Atrial Fibrillation, Asthma, Heart Failure, COPD, CVA/TIA, Hypertension, Osteoarthritis (OA), Pneumonia, Renal Disease, Syncope Additional Past Medical History / Comment(s): CVA 2006 recent ARF had dialysis cath inserted 02-02-18 gets dialysis Thu-Thu-Thu. History of Any Multi-Drug Resistant Organisms: None Reported Past Surgical History: Tonsillectomy Additional Past Surgical History / Comment(s): ORIF rt ankle-[address], IUD removal, lumbar steroid injections, dental implants, cardioversion, dialysis cath. has ocl on l wrist, states fell 1 1/2 month ago and has a hairline fracture of wrist Past Anesthesia/Blood Transfusion Reactions: No Reported Reaction Additional Past Anesthesia/Blood Transfusion Reaction / Comment(s): Past blood transfusions - no reaction Past Psychological History: Anxiety Smoking Status: Former smoker Past Alcohol Use History: None Reported Past Drug Use History: None Reported - Past Family History Mother Family Medical History: No Reported History Additional Family Medical History / Comment(s): Mother in her 80s from abdominal aortic aneurysm. Father Family Medical History: Myocardial Infarction ([place]) Additional Family Medical History / Comment(s): Father at age 52 from acute [place]. Medications and Allergies Home Medications Medication Instructions Recorded Confirmed Type Sertraline HCl [Zoloft] 50 mg PO HS 04/30/17 08/16/18 History Apixaban [Eliquis] 2.5 mg PO BID #60 tablet 02/06/18 08/16/18 Rx Albuterol Inhaler [Ventolin Hfa 2 puff INHALATION RT-Q4H PRN 05/31/18 08/16/18 History Inhaler] Calcium Acetate [PhosLo] 667 mg PO AC-TID 05/31/18 08/16/18 History Zolpidem [Ambien] 5 mg PO HS 05/31/18 08/16/18 History Furosemide [Lasix] 80 mg PO BID 06/24/18 08/16/18 History hydrALAZINE HCL [Apresoline] 100 mg PO TID 07/18/18 08/16/18 History amLODIPine [Norvasc] 10 mg PO DAILY 07/20/18 08/16/18 History Amiodarone [Cordarone] 100 mg PO BID #60 tab 07/26/18 08/16/18 Rx Metoprolol Tartrate [Lopressor] 50 mg PO TID #90 tab 07/26/18 08/16/18 Rx Allergies Allergy/AdvReac Type Severity Reaction Status Date / Time No Known Allergies Allergy Verified 08/16/18 07:14 Physical Exam Vitals: Vital Signs Temp Pulse Pulse Resp BP BP Pulse Ox 08/16/18 11:44 97.8 F 59 L 18 136/81 96 08/16/18 08:00 65 18 171/85 97 08/16/18 06:58 98.2 F 50 L 18 166/95 93 L 08/16/18 06:19 49 L 15 159/78 96 08/16/18 05:10 49 L 18 157/70 95 08/16/18 02:32 97.7 F 49 L 22 159/74 94 L 08/15/18 23:30 97.3 F L 48 L 18 164/62 97 Intake and Output 08/15/18 08/16/18 08/16/18 22:59 06:59 14:59 Other: Voiding Method Toilet Weight 54.431 kg 54.431 kg PHYSICAL EXAMINATION: Patient is lying in the bed comfortably, no acute distress, awake alert and oriented.. HEENT: Normocephalic. Neck is supple. Pupils reactive. Nostrils clear. Oral cavity is moist. Ears reveal no drainage. Neck reveals no JVD, carotid bruits, or thyromegaly. CHEST EXAMINATION: Trachea is central. Symmetrical expansion. Bibasilar diminished air entry. Lung caceres clear to auscultation and percussion. CARDIAC: Normal S1, S2 with no gallops. No murmurs ABDOMEN: Soft. Bowel sounds normal. No organomegaly. No abdominal bruits. Extremities: reveal no edema. No clubbing or cyanosis Neurologically awake, alert, oriented x2-3 with well-coordinated movements. Cognitive impairment. No focal deficits noted Skin: No rash or skin lesions. Psychiatric: Coperative. Nonsuicidal Musculoskeletal: No joint swelling or deformity. Normal range of motion. Results CBC & Chem 7: 08/16/18 00:00 08/16/18 00:00 Labs: Abnormal Lab Results - Last 24 Hours (Table) 08/16/18 08/16/18 08/16/18 Range/Units 00:00 00:00 00:00 WBC 11.1 H (3.8-10.6) k/uL MCHC 30.7 L (31.0-37.0) g/dL RDW 16.8 H (11.5-15.5) % Neutrophils # 9.8 H (1.3-7.7) k/uL Lymphocytes # 0.3 L (1.0-4.8) k/uL APTT 30.9 H (22.0-30.0) sec Sodium 132 L (137-145) mmol/L Chloride 92 L (98-107) mmol/L Carbon Dioxide 20 L (22-30) mmol/L BUN 82 H (7-17) mg/dL Creatinine 6.71 H (0.52-1.04) mg/dL Glucose 104 H (74-99) mg/dL Thrombosis Risk Factor Assmnt - DVT/VTE Prophylaxis DVT/VTE Prophylaxis: Pharmacologic Prophylaxis ordered Assessment and Plan Assessment: Shortness of breath secondary to fluid overload ESRD on hemodialysis. On Thursday and Thursday. Macario catheter. Acute on chronic CHF with diastolic dysfunction Paroxysmal atrial fibrillation on anticoagulation with Eliquis COPD History of CVA/TIA with dysarthria and cognitive impairment Hypertension Osteoarthritis Anxiety Plan: Patient will be continued on home medications including Lasix 80 mg twice a day. Patient did have hemodialysis today. Nephrology is following. Continue the current management and further recommendations based on the clinical course. Prognosis is guarded with multiple medical problems and comorbid conditions. Time with Patient: Greater than 30
--- NOTE | 2018-08-16 22:14 | CONS ---
CONSULTATION REASON FOR CONSULT: End-stage renal disease. HISTORY OF PRESENT ILLNESS: Patient is a 72-year-old female with end-stage renal disease, on hemodialysis on a Thursday, Thursday, Thursday schedule. She was supposed to go for PD training today, but was admitted with complaints of shortness of breath. The patient was scheduled for higher ultrafiltration as outpatient to prevent rehospitalization and at this time, patient states that only about 3 L was taken off at the dialysis unit. I will discuss with the staff at the dialysis unit regarding her goal ultrafiltration. Given her size, her maximum UF allowed is about 3. However, we have been going much above her maximum UF rate at about 4 L while she is inpatient and the plan was to increase the UF as outpatient as well to prevent rehospitalization until she switches to PD. Again, the patient denies any history of fever, chills, nausea, vomiting or abdominal pain. PAST MEDICAL HISTORY: End-stage renal disease, coronary artery disease, CKD mineral bone disorder, hypertension, mainly volume sensitive, COPD, atrial fibrillation, history of CVA/TIA and history of pneumonia, osteoarthritis. PAST SURGICAL HISTORY: Tonsillectomy, ORIF in the ankle, IUD removal, dental implants, cardioversion, dialysis catheter placement, fracture in the wrist. SOCIAL HISTORY: Patient is a former smoker. No history of drug abuse or alcohol abuse. PHYSICAL EXAMINATION: Blood pressure this morning was 171/85, heart rate 65 per minute. She is afebrile. Examination of the heart S1, S2. Examination of lungs bilateral breath sounds are heard. Abdomen is soft, nontender. Exam of lower extremities shows no evidence of edema. BONDERIZER exam is grossly intact. LABS: Show hemoglobin 12.6, potassium 5.1, sodium 132. ProBNP 73,600. ASSESSMENT: 1. End-stage renal disease, on hemodialysis on a Thursday, Thursday, Thursday schedule. 2. Volume overload with repeated admissions for the same with plan for increased ultrafiltration as outpatient much above her allowed goal rate. 3. Chronic kidney disease mineral bone disorder. 4. Status post PD catheter placement with plans to switch to PD and start PD training which was scheduled for today. PLAN: Hemodialysis today and repeat dialysis in a.m. mainly for ultrafiltration. Hopefully, patient can be discharged tomorrow and follow up as outpatient on Thursday for her regular dialysis treatment. I will also discuss with the outpatient dialysis staff. MMODL / IJN: [id number] /
[2018-08-16] MEDS: ZOLPIDEM 5 MG TAB PO SCH (23:56)
[2018-08-17] MEDS: CALCIUM ACETATE 667 MG CAP PO SCH ×3 (06:53→16:39)
[2018-08-17 07:08] LABS: Anisocytosis Slight; Basophils % (A) 1 %; Eosinophils # (A) 0.1 k/uL (0-0.7); Eosinophils % (A) 2 %; HCT 37.8 % (34.0-46.0); HGB 11.9 gm/dL (11.4-16.0); Hypochromasia Slight; Lymphocytes # (A) 0.3 k/uL (1.0-4.8); Lymphocytes % (A) 5 %; MCH 30.4 pg (25.0-35.0); MCHC 31.5 g/dL (31.0-37.0); MCV 96.4 fL (80.0-100.0); Mean Platelet Volume 7.6; Monocytes # (A) 0.6 k/uL (0-1.0); Monocytes % (A) 8 %; Neutrophils # (A) 5.3 k/uL (1.3-7.7); Neutrophils % (A) 81 %; Platelet Count 213 k/uL (150-450); RBC 3.92 m/uL (3.80-5.40); RDW 16.3 % (11.5-15.5); WBC 6.6 k/uL (3.8-10.6)
[2018-08-17 07:17] LABS: Potassium 4.9 mmol/L (3.5-5.1)
[2018-08-17] MEDS: NITROGLYCERIN OINT 1 INCH/GM PACKET TOPICAL SCH ×4 (08:52→23:22)
[2018-08-17] MEDS: hydrALAZINE HCL 50 MG TAB PO SCH ×3 (08:53→23:21)
[2018-08-17] MEDS: METOPROLOL TARTRATE 50 MG TAB PO SCH ×3 (08:53→23:21)
[2018-08-17] MEDS: APIXABAN 2.5 MG TABLET PO SCH ×2 (08:53→20:14)
[2018-08-17] MEDS: amLODIPine 10 MG TAB PO SCH (08:53)
[2018-08-17] MEDS: FUROSEMIDE 80 MG TAB PO SCH ×2 (08:53→16:39)
[2018-08-17] MEDS: AMIODARONE 100 MG TAB PO SCH ×2 (08:55→20:14)
[2018-08-17] MEDS: SERTRALINE 50 MG TAB PO SCH (20:14)
--- NOTE | 2018-08-17 21:40 | PN ---
PROGRESS NOTE Patient is seen for followup for end-stage renal disease. This was another admission for this patient with fluid overload. I did discuss with the dialysis staff and it appears that we did increase the ultrafiltration on Thursday and Thursday. Previously, patient has refused extra treatments. However, at this time I have convinced her that unless we do extra treatments at least 4 times a week. She will continue to be readmitted for fluid overload. The patient has been working at her end as well, trying to decrease the weight gains between treatments. She states she is measuring her fluid intake and it looks like her gains were also much lower last week. The patient was supposed to be trained to start peritoneal dialysis. However, she is currently hospitalized. Therefore, this was not done. I discussed with her regarding admission to rehab where the peritoneal dialysis can be performed for her. However, at this time she is completely against the idea of going to rehab as she had a bad experience previously. The patient is scheduled for hemodialysis today. She did have about 4 L ultrafiltration yesterday. PHYSICAL EXAMINATION: On examination today, blood pressure this morning was 173/80, heart rate of 54 per minute. Patient is afebrile. Examination of the heart S1, S2. Examination of lungs bilateral breath sounds are heard. Abdomen is soft, nontender. Examination of lower extremities shows no evidence of edema. LAB: Show hemoglobin 11.9, sodium 132, potassium 4.9, BUN 52, serum creatinine 4.82, calcium 9.0. ASSESSMENT: 1. End-stage renal disease, on hemodialysis on a Thursday, Thursday, Thursday schedule. However, patient will need to be dialyzed at least 4-5 times a week. I have discussed with her regarding need for extra treatments and she is agreeable at this point. 2. Fluid overload, improved. However, patient will be dialyzed today and then again tomorrow, which is her regular day. 3. Hypertension, volume sensitive. Blood pressure improved post dialysis. 4. CKD mineral bone disorder, maintained on PhosLo. PLAN: Hemodialysis today and repeat dialysis in a.m. The patient is agreeable to extra treatments as outpatient. I will also obtain a renal angiogram to rule out underlying renal artery stenosis as a cause for possible flash pulmonary edema. Hopefully we can get that done this admission. I will consult vascular surgery. MMODL / IJN: [id number] /
[2018-08-17] MEDS: ZOLPIDEM 5 MG TAB PO SCH (23:21)
[2018-08-18] MEDS: hydrALAZINE HCL 50 MG TAB PO SCH ×3 (06:30→21:38)
[2018-08-18] MEDS: CALCIUM ACETATE 667 MG CAP PO SCH ×3 (06:30→17:39)
[2018-08-18] MEDS: FUROSEMIDE 80 MG TAB PO SCH ×2 (07:57→18:09)
[2018-08-18] MEDS: METOPROLOL TARTRATE 50 MG TAB PO SCH ×3 (07:57→21:39)
[2018-08-18] MEDS: AMIODARONE 100 MG TAB PO SCH ×2 (07:57→21:38)
[2018-08-18] MEDS: APIXABAN 2.5 MG TABLET PO SCH ×2 (07:57→21:39)
[2018-08-18] MEDS: amLODIPine 10 MG TAB PO SCH (07:57)
[2018-08-18] MEDS: NITROGLYCERIN OINT 1 INCH/GM PACKET TOPICAL SCH ×4 (07:58→22:53)
[2018-08-18] MEDS ORDERED: HYDROcodone/APAP 5-325MG 1 EACH TAB PO STA (18:38)
--- NOTE | 2018-08-18 19:38 | PN ---
PROGRESS NOTE Patient is seen for followup for end-stage renal disease. Today is her regular day. She will be dialyzed and hopefully she can be discharged post dialysis. On examination this morning, blood pressure was 170/77, heart rate 52 per minute. Patient is afebrile. Examination shows no evidence of edema, bilateral lower extremities. Abdomen is soft, non-tender. Examination of the lungs shows decreased breath sounds at the bases. Labs show potassium of 4.9 yesterday. ASSESSMENT: 1. End-stage renal disease, on hemodialysis on a Thursday, Thursday, Thursday schedule. 2. Fluid overload. 3. Hypertension, uncontrolled. 4. Chronic kidney disease mineral bone disorder. PLAN: Hemodialysis today. I would like to proceed with vascular surgery consult for renal angiogram to rule out underlying severe or significant renal artery stenosis as a cause for the recurrent flash pulmonary edema. Obtain CT angiogram to rule out renal artery stenosis. Hemodialysis today. Add lisinopril. MMODL / IJN: [id number] /
[2018-08-18] MEDS: ZOLPIDEM 5 MG TAB PO SCH (21:39)
[2018-08-18] MEDS: SERTRALINE 50 MG TAB PO SCH (21:39)
--- NOTE | 2018-08-18 23:39 | P.PN ---
Subjective Progress Note Date: 08/17/18 Principal diagnosis: ESRD on hemodialysis Volume overload Patient is a 72-year-old female with a known history of paroxysmal atrial fibrillation on anticoagulation, chronic CHF with diastolic dysfunction, ESRD currently on hemodialysis Thursday and Thursday, COPD, hypertension and history of CVA in 2005 came to ER with complaints of shortness of breath. Patient did have hemodialysis on Thursday. Patient has been having worsening shortness of breath for the past 2 days. Patient is currently on hemodialysis. Patient is otherwise a poor historian denied any fever or chills. No complaints of chest pain. Breath cough with whitish sputum production. No leg swelling. Denied any abdominal pain, nausea or vomiting or diarrhea. Chest x-ray showedminimal right pleural effusion is decreased. Otherwise no substantial change. EKG showed sinus bradycardia. Troponin 1 negative BNP 73 600 08/17/2018 Patient is still complaining of shortness of breath. Patient did have hemodialysis again today. Nephrology is on board. Vascular surgery will be consulted for renal arteriogram to look for any stenosis for the etiology of flash pulmonary edema. Otherwise no complaints of fever or chills. No nausea vomiting. No chest pain. No headache or dizziness or lightheadedness. Patient is still dyspneic otherwise. Current medications reviewed. Objective - Vital Signs Vital signs: Vital Signs Temp 98.7 F 08/17/18 20:18 Pulse 52 L 08/17/18 20:18 Resp 16 08/17/18 20:18 BP 156/72 08/17/18 20:18 Pulse Ox 98 08/17/18 20:18 Intake & Output 08/17/18 08/17/18 08/18/18 06:59 18:59 06:59 Intake Total 516 220 Output Total 700 200 300 Balance -700 316 -80 Weight 48.7 kg 48.7 kg Intake: Oral 516 220 Output: Urine 700 200 300 Other: Voiding Method Toilet Toilet Toilet # Voids 1 1 1 - Exam PHYSICAL EXAMINATION: Patient is lying in the bed comfortably, no acute distress, awake alert and oriented.. HEENT: Normocephalic. Neck is supple. Pupils reactive. Nostrils clear. Oral cavity is moist. Ears reveal no drainage. Neck reveals no JVD, carotid bruits, or thyromegaly. CHEST EXAMINATION: Trachea is central. Symmetrical expansion. Bibasilar diminished air entry. Basilar crackles. Lung caceres clear to auscultation and percussion. CARDIAC: Normal S1, S2 with no gallops. No murmurs ABDOMEN: Soft. Bowel sounds normal. No organomegaly. No abdominal bruits. Extremities: reveal no edema. No clubbing or cyanosis Neurologically awake, alert, oriented x2-3 with well-coordinated movements. Cognitive impairment. No focal deficits noted Skin: No rash or skin lesions. Psychiatric: Coperative. Nonsuicidal Musculoskeletal: No joint swelling or deformity. Normal range of motion. - Labs CBC & Chem 7: 08/17/18 06:34 08/17/18 06:34 Labs: Abnormal Lab Results - Last 24 Hours (Table) 08/17/18 08/17/18 Range/Units 06:34 06:34 RDW 16.3 H (11.5-15.5) % Lymphocytes # 0.3 L (1.0-4.8) k/uL Sodium 132 L (137-145) mmol/L Chloride 95 L (98-107) mmol/L BUN 52 H (7-17) mg/dL Creatinine 4.82 H (0.52-1.04) mg/dL Assessment and Plan Assessment: Shortness of breath secondary to fluid overload ESRD on hemodialysis. On Thursday and Thursday. Macario catheter. Acute on chronic CHF with diastolic dysfunction Paroxysmal atrial fibrillation on anticoagulation with Eliquis COPD History of CVA/TIA with dysarthria and cognitive impairment Hypertension Osteoarthritis Anxiety Plan: Patient will be continued on home medications including Lasix 80 mg twice a day. Hemodialysis day 2.. Nephrology is following. Continue the current management and further recommendations based on the clinical course. Prognosis is guarded with multiple medical problems and comorbid conditions. Time with Patient: Greater than 30
--- NOTE | 2018-08-18 23:40 | P.PN ---
Subjective Progress Note Date: 08/18/18 Principal diagnosis: ESRD on hemodialysis Volume overload Patient is a 72-year-old female with a known history of paroxysmal atrial fibrillation on anticoagulation, chronic CHF with diastolic dysfunction, ESRD currently on hemodialysis Thursday and Thursday, COPD, hypertension and history of CVA in 2005 came to ER with complaints of shortness of breath. Patient did have hemodialysis on Thursday. Patient has been having worsening shortness of breath for the past 2 days. Patient is currently on hemodialysis. Patient is otherwise a poor historian denied any fever or chills. No complaints of chest pain. Breath cough with whitish sputum production. No leg swelling. Denied any abdominal pain, nausea or vomiting or diarrhea. Chest x-ray showedminimal right pleural effusion is decreased. Otherwise no substantial change. EKG showed sinus bradycardia. Troponin 1 negative BNP 73 600 08/17/2018 Patient is still complaining of shortness of breath. Patient did have hemodialysis again today. Nephrology is on board. Vascular surgery will be consulted for renal arteriogram to look for any stenosis for the etiology of flash pulmonary edema. Otherwise no complaints of fever or chills. No nausea vomiting. No chest pain. No headache or dizziness or lightheadedness. Patient is still dyspneic otherwise. 08/18/2018 Patient is still complaining of shortness of breath and dyspneic with ambulation. Improved compared to yesterday. CT angiogram of the renal artery was ordered. Nephrology is on board. Otherwise continue on current management. Nephrology is planning for another hemodialysis session today. Current medications reviewed. Objective - Vital Signs Vital signs: Vital Signs Temp 98.4 F 08/18/18 19:54 Pulse 63 08/18/18 22:54 Resp 18 08/18/18 22:54 BP 161/69 08/18/18 22:54 Pulse Ox 97 08/18/18 22:54 Intake & Output 08/18/18 08/18/18 08/19/18 06:59 18:59 06:59 Intake Total 220 240 Output Total 300 1100 Balance -80 -860 Weight 48 kg Intake: Oral 220 240 Output: Urine 300 1100 Other: Voiding Method Toilet Toilet # Voids 2 - Exam PHYSICAL EXAMINATION: Patient is lying in the bed comfortably, no acute distress, awake alert and oriented.. HEENT: Normocephalic. Neck is supple. Pupils reactive. Nostrils clear. Oral cavity is moist. Ears reveal no drainage. Neck reveals no JVD, carotid bruits, or thyromegaly. CHEST EXAMINATION: Trachea is central. Symmetrical expansion. Bibasilar diminished air entry. Basilar crackles. Lung caceres clear to auscultation and percussion. CARDIAC: Normal S1, S2 with no gallops. No murmurs ABDOMEN: Soft. Bowel sounds normal. No organomegaly. No abdominal bruits. Extremities: reveal no edema. No clubbing or cyanosis Neurologically awake, alert, oriented x2-3 with well-coordinated movements. Cognitive impairment. No focal deficits noted Skin: No rash or skin lesions. Psychiatric: Coperative. Nonsuicidal Musculoskeletal: No joint swelling or deformity. Normal range of motion. - Labs CBC & Chem 7: 08/17/18 06:34 08/17/18 06:34 Assessment and Plan Assessment: Shortness of breath secondary to fluid overload ESRD on hemodialysis. On Thursday and Thursday. Macario catheter. Acute on chronic CHF with diastolic dysfunction Paroxysmal atrial fibrillation on anticoagulation with Eliquis COPD History of CVA/TIA with dysarthria and cognitive impairment Hypertension Osteoarthritis Anxiety Plan: Patient will be continued on home medications including Lasix 80 mg twice a day. Continued on hemodialysis.. Nephrology is following. Continue the current management and further recommendations based on the clinical course. Prognosis is guarded with multiple medical problems and comorbid conditions. Time with Patient: Greater than 30
[2018-08-19 06:24] LABS: Anisocytosis Slight; Basophils % (A) 0 %; Eosinophils # (A) 0.1 k/uL (0-0.7); Eosinophils % (A) 0 %; HCT 39.6 % (34.0-46.0); HGB 12.4 gm/dL (11.4-16.0); Lymphocytes # (A) 0.2 k/uL (1.0-4.8); Lymphocytes % (A) 1 %; MCH 29.4 pg (25.0-35.0); MCHC 31.4 g/dL (31.0-37.0); MCV 93.6 fL (80.0-100.0); Mean Platelet Volume 7.7; Monocytes # (A) 1.1 k/uL (0-1.0); Monocytes % (A) 6 %; Neutrophils # (A) 16.7 k/uL (1.3-7.7); Neutrophils % (A) 91 %; Platelet Count 226 k/uL (150-450); RBC 4.23 m/uL (3.80-5.40); RDW 16.3 % (11.5-15.5); WBC 18.4 k/uL (3.8-10.6)
[2018-08-19 06:26] LABS: Calcium 9.7 mg/dL (8.4-10.2); Potassium 5.3 mmol/L (3.5-5.1)
--- NOTE | 2018-08-19 08:47 | CT ---
EXAMINATION TYPE: CT angio renal artery DATE OF EXAM: 08/19/2018 COMPARISON: 11/30/2017 HISTORY: 72-year-old female End stage renal failure TECHNIQUE: Contiguous axial scanning of the abdomen performed without and with IV Contrast, patient i njected with 100 mL of Isovue 370. Delayed images through the kidneys were obtained. Coronal/sagittal reconstructions performed. 3 reconstructions generated on a dedicated independent workstation. CT DLP: 455.4 mGycm Automated exposure control for dose reduction was used. FINDINGS: Heart upper limits of normal in size. Dense mitral annular calcifications. No pericardial effusion. Some of the previous posterior left basilar opacity has improved and there is new or increased consol idation slightly higher posteriorly in the left lower lobe. This warrants follow-up to ensure clearan ce given some associated nodularity measuring 7 mm. Small hilar hernia. Arterial phase imaging of the liver shows no gross abnormality. Gallbladder is borderline to mildly h ydropic at 4.1 cm without any wall thickening or surrounding inflammation. Mild diffuse thickening of the left adrenal gland is unchanged. Spleen and pancreas show no gross abn ormality by noncontrast CT. Extensive breathing motion artifacts. Suspected peritoneal dialysis catheter right paramedian mid abd omen. Extensive atherosclerotic calcifications throughout the aorta and visceral branches. Mild aneurysm lower descending thoracic aorta at 3.0 cm. Mild atherosclerotic narrowing at the origin of the celiac axis and SMA. Aorta measures 3.2 cm at the level of the SMA. Aorta measures 3.0 cm at the level of the left renal artery. There is fusiform ectasia below the renal arteries measuring up to 2.6 cm. Severe atherosclerotic calcification at the BREN origin but the vessel appears to opacify. Moderate to severe atherosclerotic calcifications partially visualized within the iliac arteries. There is severe, probably 90% narrowing at the origin of the right renal artery secondary to extensiv e ostial and proximal wall calcifications as well as a nodular focus of calcification measuring 1.1 c m along the anterior aortic wall adjacent to the renal artery ostia. There is severe atherosclerotic calcification at the origin of the left renal artery and likely subto yan occlusion. The left kidney is slightly smaller in caliber. Bones: Degenerated levoconvex scoliosis. Advanced degenerative changes at the lower lumbar spine. IMPRESSION: 1. EXTENSIVE ATHEROSCLEROTIC CALCIFICATIONS THROUGHOUT. 2. SUBTOTAL OCCLUSION PROXIMAL LEFT RENAL ARTERY AND SEVERE, PROBABLY 90% STENOSIS AT THE ORIGIN OF T HE RIGHT RENAL ARTERY. THE LEFT KIDNEY IS MILDLY ATROPHIC. 3. ECTATIC AND ANEURYSMAL AORTA MEASURING UP TO 3.2 CM DETAILED ABOVE. 4. NEW/INCREASING AIRSPACE DISEASE LEFT LOWER LOBE. CORRELATE FOR PNEUMONIA. FOLLOW-UP CT CHEST IN 3 MONTHS FOLLOWING TREATMENT TO ENSURE CLEARANCE THERE IS SOME UNDERLYING 7 MM NODULARITY WELL. S OME THE PREVIOUS POSTERIOR LEFT BASILAR INFILTRATE HAS RESOLVED. 5. GALLBLADDER IS MILDLY HYDROPIC, LIKELY DUE TO FASTING STATE. IF RIGHT UPPER QUADRANT PAIN OR ALFRED RN FOR EARLY ACUTE CHOLECYSTITIS, FOLLOW-UP ULTRASOUND OR HIDA SCAN.
[2018-08-19] MEDS: CALCIUM ACETATE 667 MG CAP PO SCH ×3 (09:23→17:12)
[2018-08-19] MEDS: amLODIPine 10 MG TAB PO SCH (09:23)
[2018-08-19] MEDS: APIXABAN 2.5 MG TABLET PO SCH ×2 (09:23→20:21)
[2018-08-19] MEDS: hydrALAZINE HCL 50 MG TAB PO SCH ×2 (09:23→17:11)
[2018-08-19] MEDS: NITROGLYCERIN OINT 1 INCH/GM PACKET TOPICAL SCH ×4 (09:24→22:02)
[2018-08-19] MEDS: METOPROLOL TARTRATE 50 MG TAB PO SCH ×3 (09:28→21:58)
[2018-08-19] MEDS: AMIODARONE 100 MG TAB PO SCH ×2 (09:29→20:22)
[2018-08-19] MEDS: FUROSEMIDE 80 MG TAB PO SCH ×2 (12:41→17:13)
[2018-08-19] MEDS ORDERED: IBUPROFEN 600 MG TAB PO PRN (14:07)
--- NOTE | 2018-08-19 17:53 | PN ---
PROGRESS NOTE Patient is seen for followup for end-stage renal disease. Patient had CT angiogram done this morning which did show bilateral renal artery stenosis, mainly at the origin. Patient does have severe atherosclerotic disease. This will explain her recurrent episodes of volume overload and hypertensive emergency. Given her underlying comorbidities and severe atherosclerosis, patient is likely not a good candidate for any surgical intervention. We will try and control her blood pressure with angiotensin receptor blockers and ZO inhibitors to control the hyper state with renal artery stenosis. Patient will remain on hemodialysis for now. She will continue to need extra treatments as outpatient. On examination this morning, blood pressure was 186/74, heart rate 69 per minute. Patient is afebrile. EXAMINATION OF THE HEART: S1 and S2. EXAMINATION OF LUNGS: Bilateral breath sounds are heard. ABDOMEN: Soft, non-tender. Examination of lower extremities shows no evidence of edema. 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 ASSESSMENT: 1. End-stage renal disease, on hemodialysis on a Thursday, Thursday, Thursday schedule. Currently being dialyzed on a daily basis, mainly secondary to continued pulmonary edema and volume overload. 2. Bilateral renal artery stenosis with uncontrolled hypertension and multiple episodes of flash pulmonary edema. I will change her antihypertensive regimen to adding ZO as well as ARBS to counteract the hyper state. Hold off on the hydralazine for now. Patient will be dialyzed again tomorrow, following which she can be discharged with plans to continue with hemodialysis for now with extra treatments on Tuesdays and possibly Thursday. If the patient does not respond to combination of ZO and ARBS, we may need to reconsider surgical intervention. Patient needs to be trained for peritoneal dialysis as outpatient. She will continue with hemodialysis post discharge at [place]. MMVINCENT / TRINAN: [id number] /
[2018-08-19] MEDS: ZOLPIDEM 5 MG TAB PO SCH (20:22)
[2018-08-19] MEDS: SERTRALINE 50 MG TAB PO SCH (20:22)
--- NOTE | 2018-08-19 21:07 | P.PN ---
Subjective Progress Note Date: 08/19/18 Principal diagnosis: ESRD on hemodialysis Volume overload Patient is a 72-year-old female with a known history of paroxysmal atrial fibrillation on anticoagulation, chronic CHF with diastolic dysfunction, ESRD currently on hemodialysis Thursday and Thursday, COPD, hypertension and history of CVA in 2005 came to ER with complaints of shortness of breath. Patient did have hemodialysis on Thursday. Patient has been having worsening shortness of breath for the past 2 days. Patient is currently on hemodialysis. Patient is otherwise a poor historian denied any fever or chills. No complaints of chest pain. Breath cough with whitish sputum production. No leg swelling. Denied any abdominal pain, nausea or vomiting or diarrhea. Chest x-ray showedminimal right pleural effusion is decreased. Otherwise no substantial change. EKG showed sinus bradycardia. Troponin 1 negative BNP 73 600 08/17/2018 Patient is still complaining of shortness of breath. Patient did have hemodialysis again today. Nephrology is on board. Vascular surgery will be consulted for renal arteriogram to look for any stenosis for the etiology of flash pulmonary edema. Otherwise no complaints of fever or chills. No nausea vomiting. No chest pain. No headache or dizziness or lightheadedness. Patient is still dyspneic otherwise. 08/18/2018 Patient is still complaining of shortness of breath and dyspneic with ambulation. Improved compared to yesterday. CT angiogram of the renal artery was ordered. Nephrology is on board. Otherwise continue on current management. Nephrology is planning for another hemodialysis session today. 08 19 2018 Patient says that her breathing is better today after hemodialysis. No complaints of chest pain. No fever no chills. Renal arteriogram showed extensive atherosclerotic calcifications were seen throughout. Subtotal occlusion proximal left renal artery and severe probably 90% stenosis at the origin of the right renal artery. Gallbladder is mildly hydropic. Nephrology has seen the patient and added combination of ZO inhibitor and ARBs. Hydralazine has been discontinued. Continue to monitor blood pressure and adjust as needed. Otherwise no complaints of abdominal pain. No nausea vomiting or diarrhea. No other acute overnight issues. Vascular surgery was consulted. Patient may not be a candidate for surgery due to underlying comorbid conditions. Current medications reviewed. Objective - Vital Signs Vital signs: Vital Signs Temp 98.4 F 08/19/18 19:13 Pulse 63 08/19/18 19:13 Resp 18 08/19/18 19:13 BP 151/73 08/19/18 19:13 Pulse Ox 93 L 08/19/18 16:15 Intake & Output 08/19/18 08/19/18 08/20/18 06:59 18:59 06:59 Intake Total 240 240 Balance 240 240 Weight 48.5 kg Intake: Oral 240 240 Other: Voiding Method Toilet Toilet # Voids 0 - Exam PHYSICAL EXAMINATION: Patient is lying in the bed comfortably, no acute distress, awake alert and oriented.. HEENT: Normocephalic. Neck is supple. Pupils reactive. Nostrils clear. Oral cavity is moist. Ears reveal no drainage. Neck reveals no JVD, carotid bruits, or thyromegaly. CHEST EXAMINATION: Trachea is central. Symmetrical expansion. Bibasilar diminished air entry. Left Basilar crackles. Lung caceres clear to auscultation and percussion. CARDIAC: Normal S1, S2 with no gallops. No murmurs ABDOMEN: Soft. Bowel sounds normal. No organomegaly. No abdominal bruits. Extremities: reveal no edema. No clubbing or cyanosis Neurologically awake, alert, oriented x2-3 with well-coordinated movements. Cognitive impairment. No focal deficits noted Skin: No rash or skin lesions. Psychiatric: Coperative. Nonsuicidal Musculoskeletal: No joint swelling or deformity. Normal range of motion. - Labs CBC & Chem 7: 08/19/18 05:50 08/19/18 05:50 Labs: Abnormal Lab Results - Last 24 Hours (Table) 08/19/18 08/19/18 Range/Units 05:50 05:50 WBC 18.4 H (3.8-10.6) k/uL RDW 16.3 H (11.5-15.5) % Neutrophils # 16.7 H (1.3-7.7) k/uL Lymphocytes # 0.2 L (1.0-4.8) k/uL Monocytes # 1.1 H (0-1.0) k/uL Sodium 129 L (137-145) mmol/L Potassium 5.3 H (3.5-5.1) mmol/L Chloride 89 L (98-107) mmol/L BUN 49 H (7-17) mg/dL Creatinine 3.99 H (0.52-1.04) mg/dL Assessment and Plan Assessment: Shortness of breath secondary to fluid overload. Improving with hemodialysis. ESRD on hemodialysis. On Thursday and Thursday. Macario catheter. Bilateral renal artery stenosis. Patient may not be a surgical candidate. Acute on chronic CHF with diastolic dysfunction Paroxysmal atrial fibrillation on anticoagulation with Eliquis COPD History of CVA/TIA with dysarthria and cognitive impairment Hypertension Osteoarthritis Anxiety Plan: Patient will be continued on home medications including Lasix 80 mg twice a day. Continued on hemodialysis.. Nephrology is following. Continue the current management and further recommendations based on the clinical course. Prognosis is guarded with multiple medical problems and comorbid conditions. Time with Patient: Greater than 30
[2018-08-19] MEDS: hydrALAZINE HCL 25 MG TAB PO SCH (21:58)
[2018-08-20] MEDS: CALCIUM ACETATE 667 MG CAP PO SCH ×3 (07:36→17:04)
--- NOTE | 2018-08-20 09:27 | CONS ---
DATE OF CONSULTATION: 08/20/2018 Brittany has been admitted with history of acute chronic renal failure, patient on dialysis through the right IJ approach. Patient is having shortness of breath for the past 2 days and has been admitted. Patient also has a history of paroxysmal atrial fibrillation, on anticoagulation. History of congestive heart failure with diastolic dysfunction. Patient had a CT scan of the abdomen and showed extensive atherosclerosis calcification throughout the aorta and subtotal occlusion of the proximal left renal artery and 90% stenosis of the origin of the right renal artery. Patient has some ectasia of the abdominal aorta with 3.2 cm and luminal dilatation. I was consulted for possibility of renal artery evaluation for stenosis. PAST MEDICAL HISTORY: Includes atrial fibrillation, COPD, hypertension, history of pneumonia, history of chronic renal failure. PHYSICAL EXAMINATION: Patient was seen in her room, lying comfortably in bed. The patient has some bilateral crackles noted in the lung bases, first and second sound is present. ABDOMEN: Soft, nontender. Femoral pulses are present. IMPRESSION: Acute chronic renal failure, history of bilateral renal artery stenosis, left renal artery is critical stenosis with kidney smaller than the right kidney and the right kidney is 90% stenosis. I have discussed this case with Dr. Vargas. She is going to evaluate and we will discuss about this procedure. MMODL / IJN: [id number] / MTDJo
[2018-08-20] MEDS: amLODIPine 10 MG TAB PO SCH (09:30)
[2018-08-20] MEDS: hydrALAZINE HCL 25 MG TAB PO SCH ×3 (09:32→22:19)
[2018-08-20] MEDS: NITROGLYCERIN OINT 1 INCH/GM PACKET TOPICAL SCH ×4 (09:33→22:19)
[2018-08-20] MEDS: LISINOPRIL 10 MG TAB PO SCH (09:33)
[2018-08-20] MEDS: LOSARTAN 50 MG TAB PO SCH (09:33)
[2018-08-20] MEDS: METOPROLOL TARTRATE 50 MG TAB PO SCH ×3 (11:39→22:19)
[2018-08-20] MEDS: AMIODARONE 100 MG TAB PO SCH ×2 (11:43→22:18)
[2018-08-20] MEDS: APIXABAN 2.5 MG TABLET PO SCH ×2 (11:43→22:18)
[2018-08-20] MEDS: FUROSEMIDE 80 MG TAB PO SCH ×2 (11:43→17:04)
--- NOTE | 2018-08-20 14:22 | PN ---
PROGRESS NOTE Patient is seen on hemodialysis. She has been started on ZO inhibitors and angiotensin receptor blockers after the CAT scan showed bilateral renal artery stenosis from yesterday. There is plan for discharge today after dialysis. The patient's blood pressure this morning dropped into the 70s during her treatment and she was taken off of dialysis. The patient has been having daily dialysis with UF close to 4 L every day. This morning she was not complaining of any shortness of breath. The patient states that she will be moving to [place]. Therefore there is plan to discharge her to rehab most likely at [facility] and come for dialysis at the [place] where she will be dialyzed on the same schedule of Thursday, Thursday, Thursday with PD training to be done next week. PHYSICAL EXAMINATION: On examination this morning, blood pressure was 145/83, heart rate of 53 per minute. Patient is afebrile. EXAMINATION OF THE HEART: S1, S2. EXAMINATION OF THE LUNGS: Bilateral breath sounds are heard. Abdomen is soft, nontender. Examination of the lower extremities shows no evidence of edema. 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 LABS: Labs show hemoglobin 12.4, sodium 129, potassium 5.3. ASSESSMENT: 1. End-stage renal disease, on hemodialysis on a Thursday, Thursday, Thursday schedule. Patient will continue with the hemodialysis post discharge and will have PD training next week at the [place] unit. 2. Bilateral renal artery stenosis with recurrent flash pulmonary edema and episodes of volume overload. We will try to treat this with ZO inhibitors and angiotensin receptor blockers. No plans for surgical intervention at this time. 3. Mild hyperkalemia. Expect improvement with hemodialysis today. 4. Hypertension secondary to underlying renal artery stenosis. 5. Multiple admissions for fluid overload. Expect improvement with controlled blood pressures and use of ZO and ARBS. PLAN: Continue with lisinopril, Cozaar, metoprolol, and hydralazine along with Norvasc. I will increase the dose of lisinopril and Cozaar depending upon her blood pressure. Patient will follow up for hemodialysis on Thursday and will start PD training on Thursday. MMODL / IJN: [id number] /
[2018-08-20] MEDS: SERTRALINE 50 MG TAB PO SCH (22:18)
[2018-08-20] MEDS: ZOLPIDEM 5 MG TAB PO SCH (22:19)
[2018-08-21] MEDS: METOPROLOL TARTRATE 50 MG TAB PO SCH (08:41)
[2018-08-21] MEDS: LOSARTAN 50 MG TAB PO SCH (08:46)
[2018-08-21] MEDS: APIXABAN 2.5 MG TABLET PO SCH ×2 (08:46→21:12)
[2018-08-21] MEDS: LISINOPRIL 10 MG TAB PO SCH ×2 (08:46→21:12)
[2018-08-21] MEDS: CALCIUM ACETATE 667 MG CAP PO SCH ×3 (08:46→17:10)
[2018-08-21] MEDS: FUROSEMIDE 80 MG TAB PO SCH ×2 (08:46→17:10)
[2018-08-21] MEDS: hydrALAZINE HCL 25 MG TAB PO SCH ×3 (08:46→21:12)
[2018-08-21] MEDS: amLODIPine 10 MG TAB PO SCH (08:46)
[2018-08-21] MEDS: AMIODARONE 100 MG TAB PO SCH (08:46)
--- NOTE | 2018-08-21 10:06 | P.PN ---
Subjective Patient is seen in follow-up for end-stage renal disease. She is maintained on hemodialysis on a Thursday schedule. She is noted to have renal artery stenosis and was started on ZO inhibitor as well as an ARB this admission. Blood pressure is still high this morning. She denies chest pain or shortness of breath. Only completed partial hemodialysis treatment yesterday. Denies chest pain or shortness of breath. Vital signs are stable. General: The patient appeared well nourished and normally developed. HEENT: Head exam is unremarkable. Neck is without jugular venous distension. LUNGS: Lungs are clear to auscultation and percussion. Breath sounds decreased. HEART: Rate and Rhythm are regular. First and second heart sounds normal. No murmurs, rubs or gallops. ABDOMEN: Abdominal exam reveals normal bowel sounds. Non-tender and non- distended. No evidence of peritonitis. EXTREMITITES: No clubbing, cyanosis, or edema. Objective - Vital Signs Vital signs: Vital Signs Temp 98.0 F 08/21/18 01:55 Pulse 49 L 08/21/18 01:55 Resp 16 08/21/18 01:55 BP 173/74 08/21/18 01:55 Pulse Ox 95 08/21/18 01:55 Intake & Output 08/20/18 08/21/18 08/21/18 18:59 06:59 18:59 Intake Total 150 250 Balance 150 250 Weight 48.9 kg 48.5 kg Intake: Oral 150 250 Other: Voiding Method Toilet Toilet # Voids 0 1 # Bowel Movements 1 - Labs CBC & Chem 7: 08/19/18 05:50 08/19/18 05:50 Assessment and Plan Plan: Assessment: 1. End-stage renal disease maintained on hemodialysis on a Thursday schedule. 2. Hypertension with chronic kidney disease. Also noted to have renal artery stenosis. 3. Chronic kidney disease mineral bone disease maintained on PhosLo. 4. Hyponatremia secondary to chronic kidney disease. Patient is hypervolemic. 5. Recurrent episodes of pulmonary edema related to renal artery stenosis. 6. Mild hyperkalemia secondary to chronic kidney disease. Plan: 2 hour hemodialysis treatment today. Increase lisinopril to 10 mg twice daily. Patient to start PD training next week.
[2018-08-21] MEDS: NITROGLYCERIN OINT 1 INCH/GM PACKET TOPICAL SCH ×4 (11:34→21:13)
[2018-08-21 12:25] LABS: Anisocytosis Slight; Basophils % (A) 0 %; Eosinophils # (A) 0.2 k/uL (0-0.7); Eosinophils % (A) 2 %; HCT 36.7 % (34.0-46.0); HGB 11.8 gm/dL (11.4-16.0); Hypochromasia Slight; Lymphocytes # (A) 0.5 k/uL (1.0-4.8); Lymphocytes % (A) 4 %; MCH 29.3 pg (25.0-35.0); MCHC 32.1 g/dL (31.0-37.0); MCV 91.4 fL (80.0-100.0); Mean Platelet Volume 9.4; Monocytes % (A) 9 %; Neutrophils # (A) 8.9 k/uL (1.3-7.7); Neutrophils % (A) 81 %; Platelet Count 277 k/uL (150-450); RBC 4.01 m/uL (3.80-5.40); RDW 17.6 % (11.5-15.5)
[2018-08-21 12:38] LABS: Calcium 9.4 mg/dL (8.4-10.2); Potassium 5.1 mmol/L (3.5-5.1)
--- NOTE | 2018-08-21 13:51 | P.CRDCN ---
History of Present Illness Consult date: 08/21/18 Reason for Consult (text): bradycardia Consult reason: hypotension History of present illness: Patient is a 72-year-old female with past medical history of atrial fibrillation, COPD, end-stage renal disease on dialysis, and hypertension, who was admitted to the hospital for fluid overload. She has been receiving dialysis on a daily basis. Today she became hypotensive and bradycardic, therefore cardiology was consulted. EKG shows sinus bradycardia with rate of 48. Blood pressure today show systolics in the 80s to 90s, however she was 173/88 this morning prior to her medications. On examination, patient is resting comfortably in bed eating her lunch. She denies any chest discomfort, dyspnea, palpitations, dizziness, or lightheadedness. Although the patient is not currently prescribed nitroglycer in, there was a Nitropaste on her left shoulder blade. PAST MEDICAL HISTORY: End-stage renal disease on dialysis, hypertension, COPD, paroxysmal atrial fibrillation REVIEW OF SYSTEMS: No fever or chills. No cough or expectoration. No diaphoresis. Patient denies headache, dizziness, blurred vision, double vision. Patient denies any stomach discomfort. No nausea, vomiting. No hematochezia. No hematemesis. Denies any black stools or blood in his stools. Denies dysuria or hematuria. No muscle weakness or numbness. PHYSICAL EXAMINATION: This is a 72-year-old female in no apparent distress at the time of my examination. HEENT: Head is atraumatic, normocephalic. Pupils are equal, round. Sclerae anicteric. Conjunctivae are clear. Mucous membranes of the mouth are moist. Neck is supple. There is no jugular venous distention. No carotid bruit is heard. CHEST EXAMINATION: Lungs are diminished with left sided expiratory wheezes. No chest wall tenderness is noted on palpation or with deep breathing. HEART EXAMINATION: Heart regular rate and rhythm. S1, S2 heard. No murmurs, gallops or rub. ABDOMEN: Soft, nontender. Bowel sounds are heard. No organomegaly noted. EXTREMITIES: 2+ peripheral pulses with no evidence of peripheral edema and no calf tenderness noted. NEUROLOGIC EXAMINATION: Patient is awake, alert and oriented x3. LABORATORY DATA: WBC 11.0, hemoglobin 11.8, sodium 126, potassium 5.1, BUN 68, creatinine 4.59. FINAL ASSESSMENT AND PLAN: 1. Paroxysmal atrial fibrillation, currently in sinus with rates in the 40s 2. End-stage renal disease, on dialysis. 3. Hypertension, currently hypotensive. 4. COPD. PLAN: We will reduce amiodarone to 100 mg per day and reduce metoprolol to 25 mg twice a day for bradycardia. Continue normal anticoagulation. Hold blood pr essure medications for systolics less than 110 mmHg. We will draw a cortisol level. Due to rapid fluctuations in blood pressure, we will avoid management at this time. Please continue to contact for any further recommendations. Past Medical History Past Medical History: Atrial Fibrillation, Asthma, Heart Failure, COPD, CVA/TIA, Hypertension, Osteoarthritis (OA), Pneumonia, Renal Disease, Syncope Additional Past Medical History / Comment(s): CVA 2005 recent ARF had dialysis cath inserted 02-02-18 gets dialysis Thu-Thu-Thu. History of Any Multi-Drug Resistant Organisms: None Reported Past Surgical History: Tonsillectomy Additional Past Surgical History / Comment(s): ORIF rt ankle-[address], IUD removal, lumbar steroid injections, dental implants, cardioversion, dialysis cath. has ocl on l wrist, states fell 1 1/2 month ago and has a hairline fracture of wrist Past Anesthesia/Blood Transfusion Reactions: No Reported Reaction Additional Past Anesthesia/Blood Transfusion Reaction / Comment(s): Past blood transfusions - no reaction Past Psychological History: Anxiety Smoking Status: Former smoker Past Alcohol Use History: None Reported Past Drug Use History: None Reported - Past Family History Mother Family Medical History: No Reported History Additional Family Medical History / Comment(s): Mother in her 80s from abdominal aortic aneurysm. Father Family Medical History: Myocardial Infarction (NM) Additional Family Medical History / Comment(s): Father at age 52 from acute NM. Medications and Allergies Home Medications Medication Instructions Recorded Confirmed Type Sertraline HCl [Zoloft] 50 mg PO HS 04/30/17 08/16/18 History Apixaban [Eliquis] 2.5 mg PO BID #60 tablet 02/06/18 08/16/18 Rx Albuterol Inhaler [Ventolin Hfa 2 puff INHALATION RT-Q4H PRN 05/31/18 08/16/18 History Inhaler] Calcium Acetate [PhosLo] 667 mg PO AC-TID 05/31/18 08/16/18 History Zolpidem [Ambien] 5 mg PO HS 05/31/18 08/16/18 History Furosemide [Lasix] 80 mg PO BID 06/24/18 08/16/18 History hydrALAZINE HCL [Apresoline] 100 mg PO TID 07/18/18 08/16/18 History amLODIPine [Norvasc] 10 mg PO DAILY 07/20/18 08/16/18 History Amiodarone [Cordarone] 100 mg PO BID #60 tab 07/26/18 08/16/18 Rx Metoprolol Tartrate [Lopressor] 50 mg PO TID #90 tab 07/26/18 08/16/18 Rx Allergies Allergy/AdvReac Type Severity Reaction Status Date / Time No Known Allergies Allergy Verified 08/16/18 07:14 Physical Exam Vitals: Vital Signs Temp Pulse Pulse Resp BP Pulse Ox 08/21/18 13:19 48 L 88/55 08/21/18 13:14 48 L 86/50 08/21/18 12:44 46 L 84/50 08/21/18 12:37 44 L 91/49 08/21/18 12:25 45 L 96/50 08/21/18 12:10 43 L 89/51 08/21/18 08:12 98.6 F 54 L 15 173/88 97 08/21/18 01:55 98.0 F 49 L 16 173/74 95 08/21/18 00:55 17 08/20/18 20:50 98.5 F 57 L 170/79 96 08/20/18 20:45 57 L 17 08/20/18 14:13 98.1 F 60 156/73 97 Intake and Output 08/20/18 08/21/18 08/21/18 22:59 06:59 14:59 Intake Total 150 250 Balance 150 250 Intake: Oral 150 250 Other: Voiding Method Toilet Toilet # Voids 2 # Bowel Movements 1 Weight 48.5 kg Results 08/21/18 11:54 08/21/18 11:54 CBC 08/21/18 Range/Units 11:54 WBC 11.0 H (3.8-10.6) k/uL RBC 4.01 (3.80-5.40) m/uL Hgb 11.8 (11.4-16.0) gm/dL Hct 36.7 (34.0-46.0) % Plt Count 277 (150-450) k/uL Comprehensive Metabolic Panel 08/21/18 Range/Units 11:54 Sodium 126 L (137-145) mmol/L Potassium 5.1 (3.5-5.1) mmol/L Chloride 86 L (98-107) mmol/L Carbon Dioxide 26 (22-30) mmol/L BUN 68 H (7-17) mg/dL Creatinine 4.59 H (0.52-1.04) mg/dL Glucose 86 (74-99) mg/dL Calcium 9.4 (8.4-10.2) mg/dL Current Medications Generic Name Dose Route Start Last Admin Trade Name Freq PRN Reason Stop Dose Admin Amiodarone HCl 100 mg 08/22/18 09:00 Cordarone PO DAILY SIMON Amlodipine Besylate 10 mg 08/17/18 09:00 08/21/18 08:46 Norvasc PO 10 mg DAILY SIMON Administration Apixaban 2.5 mg 08/16/18 21:00 08/21/18 08:46 Eliquis PO 2.5 mg BID SIMON Administration Calcium Acetate 667 mg 08/16/18 12:30 08/21/18 12:56 Phoslo PO 667 mg AC-TID SIMON Administration Furosemide 80 mg 08/16/18 16:00 08/21/18 08:46 Lasix PO 80 mg BID@0900,1600 SIMON Administration Hydralazine HCl 25 mg 08/19/18 22:00 08/21/18 08:46 Apresoline PO 25 mg TID SIMON Administration Ibuprofen 600 mg 08/19/18 14:07 08/19/18 14:11 Motrin PO 600 mg TID PRN Administration Pain Lisinopril 10 mg 08/21/18 21:00 Zestril PO BID [facility] Metoprolol Tartrate 25 mg 08/21/18 21:00 Lopressor PO BID [facility] Nitroglycerin 0.5 inch 08/16/18 09:00 08/21/18 13:00 Nitro-Bid Oint TOPICAL Not Given QID SIMON Sertraline HCl 50 mg 08/16/18 21:00 08/20/18 22:18 Zoloft PO 50 mg HS SIMON Administration Sodium Chloride 10 ml 08/16/18 09:00 08/21/18 13:02 Saline Flush IV Not Given BID SIMON Zolpidem Tartrate 5 mg 08/16/18 21:00 08/20/18 22:19 Ambien PO 5 mg HS SIMON Administration Intake and Output 08/20/18 08/21/18 08/21/18 22:59 06:59 14:59 Intake Total 150 250 Balance 150 250 Intake: Oral 150 250 Other: Voiding Method Toilet Toilet # Voids 2 # Bowel Movements 1 Weight 48.5 kg 08/21/18 11:54 08/21/18 11:54 EKG Interpretations (text) Sinus bradycardia with a heart rate of 48
[2018-08-21] MEDS ORDERED: MIDODRINE 5 MG TAB PO STA (13:52)
[2018-08-21] MEDS: METOPROLOL TARTRATE 25 MG TAB PO SCH (21:06)
[2018-08-21] MEDS: SERTRALINE 50 MG TAB PO SCH (21:12)
[2018-08-21] MEDS: ZOLPIDEM 5 MG TAB PO SCH (21:12)
--- NOTE | 2018-08-21 23:32 | P.PN ---
Subjective Progress Note Date: 08/21/18 Principal diagnosis: ESRD on hemodialysis Volume overload Patient is a 72-year-old female with a known history of paroxysmal atrial fibrillation on anticoagulation, chronic CHF with diastolic dysfunction, ESRD currently on hemodialysis Thursday and Thursday, COPD, hypertension and history of CVA in 2005 came to ER with complaints of shortness of breath. Patient did have hemodialysis on Thursday. Patient has been having worsening shortness of breath for the past 2 days. Patient is currently on hemodialysis. Patient is otherwise a poor historian denied any fever or chills. No complaints of chest pain. Breath cough with whitish sputum production. No leg swelling. Denied any abdominal pain, nausea or vomiting or diarrhea. Chest x-ray showedminimal right pleural effusion is decreased. Otherwise no substantial change. EKG showed sinus bradycardia. Troponin 1 negative BNP 73 600 08/17/2018 Patient is still complaining of shortness of breath. Patient did have hemodialysis again today. Nephrology is on board. Vascular surgery will be consulted for renal arteriogram to look for any stenosis for the etiology of flash pulmonary edema. Otherwise no complaints of fever or chills. No nausea vomiting. No chest pain. No headache or dizziness or lightheadedness. Patient is still dyspneic otherwise. 08/18/2018 Patient is still complaining of shortness of breath and dyspneic with ambulation. Improved compared to yesterday. CT angiogram of the renal artery was ordered. Nephrology is on board. Otherwise continue on current management. Nephrology is planning for another hemodialysis session today. 08 19 2018 Patient says that her breathing is better today after hemodialysis. No complaints of chest pain. No fever no chills. Renal arteriogram showed extensive atherosclerotic calcifications were seen throughout. Subtotal occlusion proximal left renal artery and severe probably 90% stenosis at the origin of the right renal artery. Gallbladder is mildly hydropic. Nephrology has seen the patient and added combination of ZO inhibitor and ARBs. Hydralazine has been discontinued. Continue to monitor blood pressure and adjust as needed. Otherwise no complaints of abdominal pain. No nausea vomiting or diarrhea. No other acute overnight issues. Vascular surgery was consulted. Patient may not be a candidate for surgery due to underlying comorbid conditions. 08/21/2018 Patient was found to have hypotensive and bradycardia today afternoon. Patient was given a dose of midodrine. Blood pressure is currently stable. SBP was 170s prior to her morning medications. Patient did receive hemodialysis. Cardiology was consulted. Blood pressure medication dose will be reduced. Currently patient is more awake and oriented. Denied any chest pain. No nausea vomiting or diarrhea. Denied any abdominal pain. Current medications reviewed. Objective - Vital Signs Vital signs: Vital Signs Temp 98.1 F 08/21/18 20:00 Pulse 48 L 08/21/18 20:00 Resp 16 08/21/18 20:00 BP 132/60 08/21/18 20:00 Pulse Ox 98 08/21/18 20:00 Intake & Output 08/21/18 08/21/18 08/22/18 06:59 18:59 06:59 Intake Total 150 250 Balance 150 250 Weight 48.5 kg Intake: Oral 150 250 Other: Voiding Method Toilet Toilet # Voids 2 1 # Bowel Movements 1 - Exam PHYSICAL EXAMINATION: Patient is lying in the bed comfortably, no acute distress, awake alert and oriented.. HEENT: Normocephalic. Neck is supple. Pupils reactive. Nostrils clear. Oral cavity is moist. Ears reveal no drainage. Neck reveals no JVD, carotid bruits, or thyromegaly. CHEST EXAMINATION: Trachea is central. Symmetrical expansion. Bibasilar diminished air entry. Left Basilar crackles. Lung caceres clear to auscultation and percussion. CARDIAC: Normal S1, S2 with no gallops. No murmurs ABDOMEN: Soft. Bowel sounds normal. No organomegaly. No abdominal bruits. Extremities: reveal no edema. No clubbing or cyanosis Neurologically awake, alert, oriented x2-3 with well-coordinated movements. Cognitive impairment. No focal deficits noted Skin: No rash or skin lesions. Psychiatric: Coperative. Nonsuicidal Musculoskeletal: No joint swelling or deformity. Normal range of motion. - Labs CBC & Chem 7: 08/21/18 11:54 08/21/18 11:54 Labs: Abnormal Lab Results - Last 24 Hours (Table) 08/21/18 08/21/18 Range/Units 11:54 11:54 WBC 11.0 H (3.8-10.6) k/uL RDW 17.6 H (11.5-15.5) % Neutrophils # 8.9 H (1.3-7.7) k/uL Lymphocytes # 0.5 L (1.0-4.8) k/uL Sodium 126 L (137-145) mmol/L Chloride 86 L (98-107) mmol/L BUN 68 H (7-17) mg/dL Creatinine 4.59 H (0.52-1.04) mg/dL Assessment and Plan Assessment: Shortness of breath secondary to fluid overload. Improving with hemodialysis. ESRD on hemodialysis. On Thursday and Thursday. Macario catheter. Bilateral renal artery stenosis. Patient may not be a surgical candidate. Acute on chronic CHF with diastolic dysfunction Paroxysmal atrial fibrillation on anticoagulation with Eliquis sinus bradycardia COPD History of CVA/TIA with dysarthria and cognitive impairment Hypertension Osteoarthritis Anxiety Plan: Patient will be continued on home medications including Lasix 80 mg twice a day. Continued on hemodialysis.. Nephrology is following. Continue the current management and further recommendations based on the clinical course. Prognosis is guarded with multiple medical problems and comorbid conditions. Time with Patient: Greater than 30
[2018-08-22 06:14] LABS: Calcium 9.3 mg/dL (8.4-10.2); Potassium 5.7 mmol/L (3.5-5.1)
[2018-08-22] MEDS: NITROGLYCERIN OINT 1 INCH/GM PACKET TOPICAL SCH ×4 (08:57→21:03)
[2018-08-22] MEDS: hydrALAZINE HCL 25 MG TAB PO SCH ×3 (09:00→21:02)
[2018-08-22] MEDS: AMIODARONE 100 MG TAB PO SCH (09:04)
[2018-08-22] MEDS: CALCIUM ACETATE 667 MG CAP PO SCH ×3 (09:04→17:33)
[2018-08-22] MEDS: APIXABAN 2.5 MG TABLET PO SCH ×2 (09:04→21:02)
[2018-08-22] MEDS ORDERED: INSULIN REGULAR 100 UNIT/ML VIAL IV ONE (10:09)
[2018-08-22] MEDS ORDERED: DEXTROSE 50%-WATER 50 ML SYRINGE IVP STA (10:09)
--- NOTE | 2018-08-22 10:11 | P.PN ---
Subjective Patient is seen in follow-up for end-stage renal disease. She is maintained on hemodialysis on a Thursday schedule. She is noted to have renal artery stenosis and was started on ZO inhibitor as well as an ARB this admission. Blood pressure is well controlled. She denies chest pain or shortness of breath. Patient was started on hemodialysis yesterday for 12 of treatment but could not complete due to hypotension. She was given all her blood pressure meds prior to dialysis. Vital signs are stable. General: The patient appeared well nourished and normally developed. HEENT: Head exam is unremarkable. Neck is without jugular venous distension. LUNGS: Lungs are clear to auscultation and percussion. Breath sounds decreased. HEART: Rate and Rhythm are regular. First and second heart sounds normal. No murmurs, rubs or gallops. ABDOMEN: Abdominal exam reveals normal bowel sounds. Non-tender and non- distended. No evidence of peritonitis. EXTREMITITES: No clubbing, cyanosis, or edema. Objective - Vital Signs Vital signs: Vital Signs Temp 97.5 F L 08/22/18 08:23 Pulse 65 08/22/18 08:23 Resp 12 08/22/18 08:23 BP 111/62 08/22/18 08:23 Pulse Ox 97 08/22/18 08:23 Intake & Output 08/21/18 08/22/18 08/22/18 18:59 06:59 18:59 Intake Total 250 Balance 250 Weight 50 kg Intake: Oral 250 Other: Voiding Method Toilet Toilet Toilet # Voids 2 1 - Labs CBC & Chem 7: 08/21/18 11:54 08/22/18 05:36 Labs: Abnormal Lab Results - Last 24 Hours (Table) 08/21/18 08/21/18 08/22/18 Range/Units 11:54 11:54 05:36 WBC 11.0 H (3.8-10.6) k/uL RDW 17.6 H (11.5-15.5) % Neutrophils # 8.9 H (1.3-7.7) k/uL Lymphocytes # 0.5 L (1.0-4.8) k/uL Sodium 126 L 126 L (137-145) mmol/L Potassium 5.7 H (3.5-5.1) mmol/L Chloride 86 L 88 L (98-107) mmol/L BUN 68 H 84 H (7-17) mg/dL Creatinine 4.59 H 5.50 H (0.52-1.04) mg/dL Assessment and Plan Plan: Assessment: 1. End-stage renal disease maintained on hemodialysis on a Thursday schedule. 2. Hypertension with chronic kidney disease. Also noted to have renal artery stenosis. Controlled. 3. Chronic kidney disease mineral bone disease maintained on PhosLo. 4. Hyponatremia secondary to chronic kidney disease. Patient is hypervolemic. 5. Recurrent episodes of pulmonary edema related to renal artery stenosis. 6. Mild hyperkalemia secondary to chronic kidney disease. Plan: Hemodialysis tomorrow. Hold antihypertensives prior to dialysis. Repeat potassium level this evening. Patient to start PD training next week.
[2018-08-22] MEDS: METOPROLOL TARTRATE 25 MG TAB PO SCH ×2 (11:21→21:02)
[2018-08-22] MEDS: LISINOPRIL 10 MG TAB PO SCH ×2 (11:26→21:02)
[2018-08-22] MEDS: FUROSEMIDE 80 MG TAB PO SCH ×2 (11:26→16:40)
--- NOTE | 2018-08-22 11:47 | P.CRDCN ---
History of Present Illness Consult reason: hypotension History of present illness: Patient is a 72-year-old female with history of end-stage renal disease and atrial fibrillation, who is currently admitted to the hospital for fluid overload. Cardiology was consulted for hypotension and bradycardia. She was asymptomatic with systolic blood pressure 80 and heart rates in the 40s. Her medications yesterday were reduced and parameters were provided. Her blood pressure today is well controlled with maps in the 70s to 80s, and her heart rates in the high 50s to 60s. On examination patient is lying comfortably in bed. She again denies any chest discomfort, dyspnea, palpitations, dizziness, or lightheaded. GENERAL: Well-appearing, well-nourished and in no acute distress. NECK: Supple without JVD or thyromegaly. LUNGS: Breath sounds diminished to auscultation bilaterally. Respiration equal and unlabored. No wheezes, rales or rhonchi. HEART: Regular rate and rhythm without murmurs, rubs or gallops. S1 and S2 heard. EXTREMITIES: Normal range of motion, no edema. No clubbing or cyanosis. Peripheral pulses intact and strong. LABORATORY DATA: Sodium 126, potassium 5.7, BUN 84, creatinine 5.50, cortisol level 28. ASSESSMENT AND PLAN: Hypertension, hypotensive and previous regimen, currently stable End-stage renal disease, on dialysis Paroxysmal atrial fibrillation, currently in sinus rhythm COPD PLAN: We recommend continuing current medication regimen without any changes. Please continue to contact for further recommendations as needed. Past Medical History Past Medical History: Atrial Fibrillation, Asthma, Heart Failure, COPD, CVA/TIA, Hypertension, Osteoarthritis (OA), Pneumonia, Renal Disease, Syncope Additional Past Medical History / Comment(s): CVA 2006 recent ARF had dialysis cath inserted 02-02-18 gets dialysis Thu-Thu-Thu. History of Any Multi-Drug Resistant Organisms: None Reported Past Surgical History: Tonsillectomy Additional Past Surgical History / Comment(s): ORIF rt ankle-[address], IUD removal, lumbar steroid injections, dental implants, cardioversion, dialysis cath. has ocl on l wrist, states fell 1 1/2 month ago and has a hairline fracture of wrist Past Anesthesia/Blood Transfusion Reactions: No Reported Reaction Additional Past Anesthesia/Blood Transfusion Reaction / Comment(s): Past blood transfusions - no reaction Past Psychological History: Anxiety Smoking Status: Former smoker Past Alcohol Use History: None Reported Past Drug Use History: None Reported - Past Family History Mother Family Medical History: No Reported History Additional Family Medical History / Comment(s): Mother in her 80s from abdominal aortic aneurysm. Father Family Medical History: Myocardial Infarction ([place]) Additional Family Medical History / Comment(s): Father at age 52 from acute [place]. Medications and Allergies Home Medications Medication Instructions Recorded Confirmed Type Sertraline HCl [Zoloft] 50 mg PO HS 04/30/17 08/16/18 History Apixaban [Eliquis] 2.5 mg PO BID #60 tablet 02/06/18 08/16/18 Rx Albuterol Inhaler [Ventolin Hfa 2 puff INHALATION RT-Q4H PRN 05/31/18 08/16/18 History Inhaler] Calcium Acetate [PhosLo] 667 mg PO AC-TID 05/31/18 08/16/18 History Zolpidem [Ambien] 5 mg PO HS 05/31/18 08/16/18 History Furosemide [Lasix] 80 mg PO BID 06/24/18 08/16/18 History hydrALAZINE HCL [Apresoline] 100 mg PO TID 07/18/18 08/16/18 History amLODIPine [Norvasc] 10 mg PO DAILY 07/20/18 08/16/18 History Amiodarone [Cordarone] 100 mg PO BID #60 tab 07/26/18 08/16/18 Rx Metoprolol Tartrate [Lopressor] 50 mg PO TID #90 tab 07/26/18 08/16/18 Rx Allergies Allergy/AdvReac Type Severity Reaction Status Date / Time No Known Allergies Allergy Verified 08/16/18 07:14 Physical Exam Vitals: Vital Signs Temp Pulse Pulse Resp BP Pulse Ox 08/22/18 11:22 57 L 129/64 08/22/18 08:23 97.5 F L 65 12 111/62 97 08/22/18 01:16 97.7 F 55 L 16 119/61 97 08/21/18 20:00 98.1 F 48 L 16 132/60 98 08/21/18 15:20 98.0 F 43 L 14 128/43 94 L 08/21/18 13:58 45 L 99/51 08/21/18 13:19 48 L 88/55 08/21/18 13:14 48 L 86/50 08/21/18 12:44 46 L 84/50 08/21/18 12:37 44 L 91/49 08/21/18 12:25 45 L 96/50 08/21/18 12:10 43 L 89/51 Intake and Output 08/21/18 08/22/18 08/22/18 22:59 06:59 14:59 Other: Voiding Method Toilet Toilet # Voids 1 1 Weight 50 kg Results 08/21/18 11:54 08/22/18 05:36 CBC 08/21/18 Range/Units 11:54 WBC 11.0 H (3.8-10.6) k/uL RBC 4.01 (3.80-5.40) m/uL Hgb 11.8 (11.4-16.0) gm/dL Hct 36.7 (34.0-46.0) % Plt Count 277 (150-450) k/uL Comprehensive Metabolic Panel 08/21/18 08/22/18 Range/Units 11:54 05:36 Sodium 126 L 126 L (137-145) mmol/L Potassium 5.1 5.7 H (3.5-5.1) mmol/L Chloride 86 L 88 L (98-107) mmol/L Carbon Dioxide 26 24 (22-30) mmol/L BUN 68 H 84 H (7-17) mg/dL Creatinine 4.59 H 5.50 H (0.52-1.04) mg/dL Glucose 86 79 (74-99) mg/dL Calcium 9.4 9.3 (8.4-10.2) mg/dL Current Medications Generic Name Dose Route Start Last Admin Trade Name Freq PRN Reason Stop Dose Admin Amiodarone HCl 100 mg 08/22/18 09:00 08/22/18 09:04 Cordarone PO 100 mg DAILY SIMON Administration Amlodipine Besylate 10 mg 08/17/18 09:00 08/21/18 08:46 Norvasc PO 10 mg DAILY SIMON Administration Apixaban 2.5 mg 08/16/18 21:00 08/22/18 09:04 Eliquis PO 2.5 mg BID SIMON Administration Calcium Acetate 667 mg 08/16/18 12:30 04/07/19 09:04 Phoslo PO 667 mg AC-TID SIMON Administration Furosemide 80 mg 08/16/18 16:00 08/22/18 11:26 Lasix PO 80 mg BID@0900,1600 SIMON Administration Hydralazine HCl 25 mg 08/19/18 22:00 08/22/18 09:00 Apresoline PO Not Given TID SIMON Ibuprofen 600 mg 08/19/18 14:07 08/19/18 14:11 Motrin PO 600 mg TID PRN Administration Pain Lisinopril 10 mg 08/21/18 21:00 08/22/18 11:26 Zestril PO 10 mg BID SIMON Administration Metoprolol Tartrate 25 mg 08/21/18 21:00 08/22/18 11:21 Lopressor PO Not Given BID SIMON Nitroglycerin 0.5 inch 08/16/18 09:00 08/22/18 08:57 Nitro-Bid Oint TOPICAL Not Given QID SIMON Sertraline HCl 50 mg 08/16/18 21:00 08/21/18 21:12 Zoloft PO 50 mg HS SIMON Administration Sodium Chloride 10 ml 08/16/18 09:00 08/22/18 11:26 Saline Flush IV 10 ml BID SIMON Administration Zolpidem Tartrate 5 mg 08/16/18 21:00 08/21/18 21:12 Ambien PO 5 mg HS SIMON Administration Intake and Output 08/21/18 08/22/18 08/22/18 22:59 06:59 14:59 Other: Voiding Method Toilet Toilet # Voids 1 1 Weight 50 kg 08/21/18 11:54 08/22/18 05:36
[2018-08-22] MEDS: amLODIPine 10 MG TAB PO SCH (17:33)
[2018-08-22] MEDS: ZOLPIDEM 5 MG TAB PO SCH (21:02)
[2018-08-22] MEDS: SERTRALINE 50 MG TAB PO SCH (21:02)
--- NOTE | 2018-08-22 23:18 | P.PN ---
Subjective Progress Note Date: 08/20/18 Principal diagnosis: ESRD on hemodialysis Volume overload Patient is a 72-year-old female with a known history of paroxysmal atrial fibrillation on anticoagulation, chronic CHF with diastolic dysfunction, ESRD currently on hemodialysis Thursday and Thursday, COPD, hypertension and history of CVA in 2005 came to ER with complaints of shortness of breath. Patient did have hemodialysis on Thursday. Patient has been having worsening shortness of breath for the past 2 days. Patient is currently on hemodialysis. Patient is otherwise a poor historian denied any fever or chills. No complaints of chest pain. Breath cough with whitish sputum production. No leg swelling. Denied any abdominal pain, nausea or vomiting or diarrhea. Chest x-ray showedminimal right pleural effusion is decreased. Otherwise no substantial change. EKG showed sinus bradycardia. Troponin 1 negative BNP 73 600 08/17/2018 Patient is still complaining of shortness of breath. Patient did have hemodialysis again today. Nephrology is on board. Vascular surgery will be consulted for renal arteriogram to look for any stenosis for the etiology of flash pulmonary edema. Otherwise no complaints of fever or chills. No nausea vomiting. No chest pain. No headache or dizziness or lightheadedness. Patient is still dyspneic otherwise. 08/18/2018 Patient is still complaining of shortness of breath and dyspneic with ambulation. Improved compared to yesterday. CT angiogram of the renal artery was ordered. Nephrology is on board. Otherwise continue on current management. Nephrology is planning for another hemodialysis session today. 08 19 2018 Patient says that her breathing is better today after hemodialysis. No complaints of chest pain. No fever no chills. Renal arteriogram showed extensive atherosclerotic calcifications were seen throughout. Subtotal occlusion proximal left renal artery and severe probably 90% stenosis at the origin of the right renal artery. Gallbladder is mildly hydropic. Nephrology has seen the patient and added combination of ZO inhibitor and ARBs. Hydralazine has been discontinued. Continue to monitor blood pressure and adjust as needed. Otherwise no complaints of abdominal pain. No nausea vomiting or diarrhea. No other acute overnight issues. Vascular surgery was consulted. Patient may not be a candidate for surgery due to underlying comorbid conditions. 08/20/2018 Patient did have a hypotensive episode and dialysis could not be done completely. Otherwise currently blood pressure is fairly controlled. No complaints of chest pain or shortness of breath. Patient is lying in the bed comfortably. No nausea vomiting. No fever no chills. No cough is from production. No headache or dizziness or lightheadedness. No diarrhea. Nephrology is following. Patient is high risk for vascular surgery. Current medications reviewed. Objective - Vital Signs Vital signs: Vital Signs Temp 98.5 F 08/20/18 20:50 Pulse 57 L 08/20/18 20:50 Resp 17 08/20/18 02:03 BP 170/79 08/20/18 20:50 Pulse Ox 96 08/20/18 20:50 Intake & Output 08/20/18 08/20/18 08/21/18 06:59 18:59 06:59 Intake Total 240 Balance 240 Weight 48.9 kg 48.9 kg Intake: Oral 240 Other: Voiding Method Toilet # Voids 2 0 - Exam PHYSICAL EXAMINATION: Patient is lying in the bed comfortably, no acute distress, awake alert and oriented.. HEENT: Normocephalic. Neck is supple. Pupils reactive. Nostrils clear. Oral cavity is moist. Ears reveal no drainage. Neck reveals no JVD, carotid bruits, or thyromegaly. CHEST EXAMINATION: Trachea is central. Symmetrical expansion. Bibasilar diminished air entry. Left Basilar crackles. Lung caceres clear to auscultation and percussion. CARDIAC: Normal S1, S2 with no gallops. No murmurs ABDOMEN: Soft. Bowel sounds normal. No organomegaly. No abdominal bruits. Extremities: reveal no edema. No clubbing or cyanosis Neurologically awake, alert, oriented x2-3 with well-coordinated movements. Cognitive impairment. No focal deficits noted Skin: No rash or skin lesions. Psychiatric: Coperative. Nonsuicidal Musculoskeletal: No joint swelling or deformity. Normal range of motion. - Labs CBC & Chem 7: 08/21/18 11:54 08/22/18 13:59 Assessment and Plan Assessment: Shortness of breath secondary to fluid overload. Improving with hemodialysis. ESRD on hemodialysis. On Thursday and Thursday. Macario catheter. Bilateral renal artery stenosis. Patient may not be a surgical candidate. Acute on chronic CHF with diastolic dysfunction Paroxysmal atrial fibrillation on anticoagulation with Eliquis sinus bradycardia COPD History of CVA/TIA with dysarthria and cognitive impairment Hypertension Osteoarthritis Anxiety Plan: Patient will be continued on home medications including Lasix 80 mg twice a day. Continued on hemodialysis.. Nephrology is following. Continue the current management and further recommendations based on the clinical course. Prognosis is guarded with multiple medical problems and comorbid conditions. Time with Patient: Greater than 30
--- NOTE | 2018-08-22 23:21 | P.PN ---
Subjective Progress Note Date: 08/22/18 Principal diagnosis: ESRD on hemodialysis Volume overload Patient is a 72-year-old female with a known history of paroxysmal atrial fibrillation on anticoagulation, chronic CHF with diastolic dysfunction, ESRD currently on hemodialysis Thursday and Thursday, COPD, hypertension and history of CVA in 2005 came to ER with complaints of shortness of breath. Patient did have hemodialysis on Thursday. Patient has been having worsening shortness of breath for the past 2 days. Patient is currently on hemodialysis. Patient is otherwise a poor historian denied any fever or chills. No complaints of chest pain. Breath cough with whitish sputum production. No leg swelling. Denied any abdominal pain, nausea or vomiting or diarrhea. Chest x-ray showedminimal right pleural effusion is decreased. Otherwise no substantial change. EKG showed sinus bradycardia. Troponin 1 negative BNP 73 600 08/17/2018 Patient is still complaining of shortness of breath. Patient did have hemodialysis again today. Nephrology is on board. Vascular surgery will be consulted for renal arteriogram to look for any stenosis for the etiology of flash pulmonary edema. Otherwise no complaints of fever or chills. No nausea vomiting. No chest pain. No headache or dizziness or lightheadedness. Patient is still dyspneic otherwise. 08/18/2018 Patient is still complaining of shortness of breath and dyspneic with ambulation. Improved compared to yesterday. CT angiogram of the renal artery was ordered. Nephrology is on board. Otherwise continue on current management. Nephrology is planning for another hemodialysis session today. 08 19 2018 Patient says that her breathing is better today after hemodialysis. No complaints of chest pain. No fever no chills. Renal arteriogram showed extensive atherosclerotic calcifications were seen throughout. Subtotal occlusion proximal left renal artery and severe probably 90% stenosis at the origin of the right renal artery. Gallbladder is mildly hydropic. Nephrology has seen the patient and added combination of ZO inhibitor and ARBs. Hydralazine has been discontinued. Continue to monitor blood pressure and adjust as needed. Otherwise no complaints of abdominal pain. No nausea vomiting or diarrhea. No other acute overnight issues. Vascular surgery was consulted. Patient may not be a candidate for surgery due to underlying comorbid conditions. 08/20/2018 Patient did have a hypotensive episode and dialysis could not be done completely. Otherwise currently blood pressure is fairly controlled. No complaints of chest pain or shortness of breath. Patient is lying in the bed comfortably. No nausea vomiting. No fever no chills. No cough is from production. No headache or dizziness or lightheadedness. No diarrhea. Nephrology is following. Patient is high risk for vascular surgery. 08/21/2018 Patient was found to have hypotensive and bradycardia today afternoon. Patient was given a dose of midodrine. Blood pressure is currently stable. SBP was 170s prior to her morning medications. Patient did receive hemodialysis. Cardiology was consulted. Blood pressure medication dose will be reduced. Currently patient is more awake and oriented. Denied any chest pain. No nausea vomiting or diarrhea. Denied any abdominal pain. 08/22/2018 Patient is lying in the bed comfortably. No complaints of worsening shortness of breath. No nausea vomiting or diarrhea. No chest pain or shortness of breath. Patient will be continued on current blood pressure management. Cardiology is on board. Hemodialysis per nephrology tomorrow. Anticipate discharge in next 24 hours. PTOT will be consulted. Current medications reviewed. Objective - Vital Signs Vital signs: Vital Signs Temp 97.9 F 08/22/18 15:05 Pulse 61 08/22/18 17:32 Resp 14 08/22/18 15:05 BP 144/57 08/22/18 17:32 Pulse Ox 96 08/22/18 15:05 Intake & Output 08/22/18 08/22/18 08/23/18 06:59 18:59 06:59 Intake Total 400 Balance 400 Weight 50 kg Intake: Oral 400 Other: Voiding Method Toilet Toilet # Voids 1 - Exam PHYSICAL EXAMINATION: Patient is lying in the bed comfortably, no acute distress, awake alert and oriented.. HEENT: Normocephalic. Neck is supple. Pupils reactive. Nostrils clear. Oral cavity is moist. Ears reveal no drainage. Neck reveals no JVD, carotid bruits, or thyromegaly. CHEST EXAMINATION: Trachea is central. Symmetrical expansion. Bibasilar dimi nished air entry. Left Basilar crackles. Lung caceres clear to auscultation and percussion. CARDIAC: Normal S1, S2 with no gallops. No murmurs ABDOMEN: Soft. Bowel sounds normal. No organomegaly. No abdominal bruits. Extremities: reveal no edema. No clubbing or cyanosis Neurologically awake, alert, oriented x2-3 with well-coordinated movements. Cognitive impairment. No focal deficits noted Skin: No rash or skin lesions. Psychiatric: Coperative. Nonsuicidal Musculoskeletal: No joint swelling or deformity. Normal range of motion. - Labs CBC & Chem 7: 08/21/18 11:54 08/22/18 13:59 Labs: Abnormal Lab Results - Last 24 Hours (Table) 08/22/18 Range/Units 05:36 Sodium 126 L (137-145) mmol/L Potassium 5.7 H (3.5-5.1) mmol/L Chloride 88 L (98-107) mmol/L BUN 84 H (7-17) mg/dL Creatinine 5.50 H (0.52-1.04) mg/dL Assessment and Plan Assessment: Shortness of breath secondary to fluid overload. Improving with hemodialysis. ESRD on hemodialysis. On Thursday and Thursday. Macario catheter. Bilateral renal artery stenosis. Patient may not be a surgical candidate. Acute on chronic CHF with diastolic dysfunction Paroxysmal atrial fibrillation on anticoagulation with Eliquis sinus bradycardia COPD History of CVA/TIA with dysarthria and cognitive impairment Hypertension Osteoarthritis Anxiety Plan: Patient will be continued on home medications including Lasix 80 mg twice a day. Continued on hemodialysis.. Nephrology is following. Continue the current management and further recommendations based on the clinical course. Prognosis is guarded with multiple medical problems and comorbid conditions. Time with Patient: Greater than 30
[2018-08-23 08:10] LABS: Calcium 9.2 mg/dL (8.4-10.2)
[2018-08-23] MEDS: CALCIUM ACETATE 667 MG CAP PO SCH ×3 (08:29→18:10)
[2018-08-23] MEDS: NITROGLYCERIN OINT 1 INCH/GM PACKET TOPICAL SCH ×4 (08:31→20:50)
[2018-08-23] MEDS: METOPROLOL TARTRATE 25 MG TAB PO SCH ×2 (08:31→20:50)
[2018-08-23 09:12] LABS: Potassium 6.1 mmol/L (3.5-5.1)
[2018-08-23] MEDS: amLODIPine 10 MG TAB PO SCH (12:38)
[2018-08-23] MEDS: AMIODARONE 100 MG TAB PO SCH (12:38)
[2018-08-23] MEDS: FUROSEMIDE 80 MG TAB PO SCH ×2 (12:39→18:10)
[2018-08-23] MEDS: hydrALAZINE HCL 25 MG TAB PO SCH (12:39)
[2018-08-23] MEDS: LISINOPRIL 10 MG TAB PO SCH (12:41)
[2018-08-23] MEDS: APIXABAN 2.5 MG TABLET PO SCH ×2 (12:45→20:50)
--- NOTE | 2018-08-23 14:13 | PN ---
PROGRESS NOTE Patient is seen for followup for end-stage renal disease. She had uncontrolled hypertension and was found to have bilateral renal artery stenosis. For this, patient was started on ZO and ARB's and since then her blood pressure has been controlled, in fact on the lower side. This morning, all blood pressure medications were held. Patient had about 1700 mL of fluid removed with dialysis. However, her blood pressure dropped in the 70s and patient was given about 500 mL back. We will further adjust the dose of the ZO inhibitors and angiotensin receptor blockers. All other antihypertensive medications should be decreased. Patient's shortness of breath seems to have improved as well. PHYSICAL EXAMINATION: Blood pressure is 129/57, heart rate 56 per minute, she is afebrile. Examination of the heart, S1, S2. Examination of the lungs, decreased breath sounds at the bases. Abdomen is soft, nontender. Examination of the lower extremities shows no significant edema. TIME ANALYSIS CLERK exam is grossly intact. LABS: Show sodium 124, potassium 6.1, BUN 96, serum creatinine 7.0, hemoglobin 11.8 g/dL. ASSESSMENT: 1. End-stage renal disease, on hemodialysis on a Thursday, Thursday, Thursday schedule. The patient will be switching over to the [facility]. 2. Bilateral renal artery stenosis. Currently maintained on ZO and ARB's with serum potassium now staying on the higher side. Doses of medications will need to be adjusted. 3. Hyponatremia which is hypervolemic. Expect improvement with dialysis. 4. Hyperkalemia associated with advanced renal failure as well as use of ZO and ARB's and underlying renal artery stenosis. We will adjust medications. PLAN: Patient was taken off after about 2.5 hours of dialysis. I will adjust her blood pressure medications and try to maintain her on just a small dose of ZO and ARB's. MMODL / IJN: [id number] /
--- NOTE | 2018-08-23 15:10 | DS ---
DISCHARGE SUMMARY DATE OF ADMISSION: 08/19/2018. DATE OF DISCHARGE: 08/23/2018 FINAL DIAGNOSES: 1. Acute on chronic congestive heart failure exacerbation from fluid overload from systolic and diastolic dysfunction, ejection fraction 45%-50%. 2. End-stage kidney disease on hemodialysis pm a Thursday, Thursday and Thursday. 3. Patient has a new peritoneal dialysis catheter. 4. Hypertensive heart disease. 5. Chronic obstructive pulmonary disease in an ex-smoker. 6. Paroxysmal atrial fibrillation currently in sinus rhythm. 7. Chronic rheumatoid arthritis. 8. Hyperlipidemia. 9. Anxiety, depression not otherwise specified. 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 11.Anemia of chronic kidney disease. 12.Bilateral renal artery stenosis. HOSPITAL COURSE: This patient with multiple medical problems, presented with shortness of breath, found to be fluid overloaded. Hemodialysis was carried out. Patient's blood pressure medications were adjusted. The patient was dialyzed today, otherwise stable. PHYSICAL EXAMINATION: Temperature 97.3, pulse 58, respirations 16, blood pressure 144/68, pulse ox 96% on room air. LUNGS: Decreased breath sounds. CARDIOVASCULAR: First and second sounds normal. INVESTIGATIONS: This morning before hemodialysis, potassium was 6.1, BUN 96, creatinine 7.03. CONSULTATION: 1. Dr. Wilde and colleagues from [facility]. 2. [facility]. Additionally, patient did undergo a renal arteriogram, showed bilateral renal artery stenosis. DISCHARGE MEDICATIONS: 1. Zoloft 50 mg p.o. q.h.s. 2. Eliquis 2.5 mg p.o. b.i.d. 3. Ventolin HFA 2 puffs q.4 p.r.n. 4. PhosLo 667 mg p.o. a.c. t.i.d. 5. Lasix 80 mg p.o. b.i.d. 6. Cordarone 100 mg p.o. daily. 7. Cozaar 25 mg p.o. daily. 8. Lopressor 25 mg p.o. b.i.d. 9. Ambien 5 mg p.o. q.h.s. 10.hydralazine 50 mg p.o. t.i.d. DISPOSITION: [facility]. FOLLOWUP: Follow up with Dr. Desai at the [facility]. Patient to maintain hemodialysis schedule on Thursday, , and Thursday at . MMRODGERL / IJN: [id number] /
[2018-08-23] MEDS: ZOLPIDEM 5 MG TAB PO SCH (20:50)
[2018-08-23] MEDS: SERTRALINE 50 MG TAB PO SCH (20:50)
[2018-08-24] MEDS ORDERED: LISINOPRIL 10 MG TAB PO SCH (09:00)
[2018-08-24] MEDS ORDERED: LISINOPRIL 5 MG TAB PO SCH (09:00)
[2018-08-24] MEDS ORDERED: LOSARTAN 25 MG TAB PO SCH (09:00)
[2018-08-24] MEDS: CALCIUM ACETATE 667 MG CAP PO SCH ×2 (10:08→12:51)
[2018-08-24] MEDS: FUROSEMIDE 80 MG TAB PO SCH (10:08)
[2018-08-24] MEDS: APIXABAN 2.5 MG TABLET PO SCH (10:08)
[2018-08-24] MEDS: NITROGLYCERIN OINT 1 INCH/GM PACKET TOPICAL SCH ×2 (10:11→12:53)
--- NOTE | 2018-08-24 12:23 | DS ---
DISCHARGE SUMMARY ADDENDUM TO DISCHARGE SUMMARY DATE OF ADMISSION: 08/19/2018 DATE OF DISCHARGE: 08/24/2018 DATE OF SERVICE: 08/23/2018 MMODL / IJN: [id number] /
[2018-08-24] MEDS: AMIODARONE 100 MG TAB PO SCH (12:50)
[2018-08-24] MEDS: METOPROLOL TARTRATE 25 MG TAB PO SCH (12:51)
[2018-08-24 13:55] VITALS: BMI 18.8
[2018-08-24 15:12] VITALS: BP 117/69; PULSE 69; RESP 14; TEMP 97.4
--- NOTE | 2018-08-24 23:53 | PN ---
PROGRESS NOTE Patient is seen for followup for end-stage renal disease. Yesterday, blood pressure dropped in the 70s during treatment and it was discontinued after about 2.5 hours. This morning, patient is sitting up. She is being discharged. However, her outpatient schedule is Thursday, , Thursday, and therefore, patient will be dialyzed today prior to discharge. Blood pressures have not been too bad with systolics staying at about 150 to 130 or 124 mmHg. Heart rate was 61 per minute. Patient is afebrile. Examination of the heart S1, S2. Examination of lungs bilateral breath sounds are heard. Decreased breath sounds at bases. Abdomen is soft, nontender. Examination of lower extremities shows no evidence of edema. LABS: Show sodium 124 from yesterday, potassium was 6.1. ASSESSMENT: 1. End-stage renal disease, on hemodialysis. The patient will be moving to a Thursday, , Thursday schedule at the [facility]. 2. Hyperkalemia associated with use of Kb and ARBS. 3. Hypertension associated with renal artery stenosis, bilateral with better blood pressures now, the Zestril has been decreased to 5 mg daily. 4. CKD mineral bone disorder. 5. Paroxysmal atrial fibrillation. PLAN: Maintain patient on a small dose of Cozaar as well as lisinopril. We can DC other antihypertensive medications. We will monitor the potassium level as outpatient and patient will be dialyzed on a Thursday, , Thursday schedule. MMODL / IJN: [id number] /
== END 2018-08-24 15:52 | DRG 291 ==
LOC: EC 23:29 → 3SCARD 08-16 05:05 → INTOOBSV 08-16 05:05 → 3SCARD 08-16 07:04 → 4SSUR 08-18 22:24 → OBSVTOIN 08-19 13:18
PROVIDERS: ADMIT Hospitalist; ATTEND Hospitalist
PROC: 5A1D70Z Performance of Urinary Filtration, Intermittent, Less than 6 Hours Per Day (ICD-10-PCS; principal; 2018-08-16)
DX: I13.2 Hypertensive heart and chronic kidney disease with heart failure and with stage 5 chronic kidney disease, or end stage renal disease (principal); I50.43 Acute on chronic combined systolic (congestive) and diastolic (congestive) heart failure; N18.6 End stage renal disease; E87.1 Hypo-osmolality and hyponatremia; I16.1 Hypertensive emergency; I95.9 Hypotension, unspecified; E87.5 Hyperkalemia; J44.9 Chronic obstructive pulmonary disease, unspecified; I70.1 Atherosclerosis of renal artery; D63.1 Anemia in chronic kidney disease; I48.0 Paroxysmal atrial fibrillation; I69.922 Dysarthria following unspecified cerebrovascular disease; I69.919 Unspecified symptoms and signs involving cognitive functions following unspecified cerebrovascular disease; M06.9 Rheumatoid arthritis, unspecified; E78.5 Hyperlipidemia, unspecified; F32.9 Major depressive disorder, single episode, unspecified; F41.9 Anxiety disorder, unspecified; I25.10 Atherosclerotic heart disease of native coronary artery without angina pectoris; I77.811 Abdominal aortic ectasia; M19.90 Unspecified osteoarthritis, unspecified site; E83.89 Other disorders of mineral metabolism; Z79.01 Long term (current) use of anticoagulants; Z79.899 Other long term (current) drug therapy; Z87.891 Personal history of nicotine dependence; Z99.2 Dependence on renal dialysis; Z87.01 Personal history of pneumonia (recurrent); Z82.49 Family history of ischemic heart disease and other diseases of the circulatory system
CPT/HCPCS: 36415; 71045; 74175; 80048; 80053; 82533; 83880; 84132; 84484; 85025; 85610; 85730; 86706; 87340; 90935; 93005; 96374; 96375; 99285

== ENCOUNTER 2018-09-08 20:05 | Inpatient (IN) | payer MEDICARE, BC ==
--- NOTE | 2018-09-08 21:02 | ED ---
General Adult HPI - General Chief complaint: Shortness of Breath Stated complaint: Difficulty Breathing Time Seen by Provider: 09/08/18 20:50 Source: patient, EMS, RN notes reviewed Mode of arrival: EMS Limitations: no limitations - History of Present Illness Initial comments: 72-year-old female with multiple complex medical problems including atrial fi brillation, asthma, heart failure, COPD, end-stage renal disease with dialysis Tuesdays presents to the emergency department for a chief complaint of shortness of breath. Patient last had dialysis yesterday. Patient states this has been ongoing for several hours. Patient states this shortness of breath is consistent with having "too much fluid." Patient denies any chest or abdominal pain. Patient states breathing treatments are not helping her.Patient has no other complaints at this time including chest pain, abdominal pain, nausea or vomiting, headache, or visual changes. - Related Data Home Medications Medication Instructions Recorded Confirmed Sertraline HCl [Zoloft] 50 mg PO HS 04/30/17 09/08/18 Albuterol Inhaler [Ventolin Hfa 2 puff INHALATION RT-Q4H PRN 05/31/18 09/08/18 Inhaler] Calcium Acetate [PhosLo] 667 mg PO AC-TID 05/31/18 09/08/18 Furosemide [Lasix] 80 mg PO BID 06/24/18 09/08/18 Ipratropium-Albuterol Nebulize 3 ml INHALATION RT-DAILY 09/08/18 09/08/18 [Duoneb 0.5 mg-3 mg/3 ml Soln] amLODIPine [Norvasc] 10 mg PO DAILY 09/08/18 09/08/18 hydrALAZINE HCL [Apresoline] 100 mg PO TID 09/08/18 09/08/18 Previous Rx's Medication Instructions Recorded Apixaban [Eliquis] 2.5 mg PO BID #60 tablet 02/06/18 Amiodarone [Cordarone] 100 mg PO DAILY #60 tab 08/23/18 Metoprolol Tartrate [Lopressor] 25 mg PO BID tab 08/23/18 Zolpidem [Ambien] 5 mg PO HS #3 tab 08/23/18 Allergies Allergy/AdvReac Type Severity Reaction Status Date / Time No Known Allergies Allergy Verified 09/08/18 20:32 Review of Systems ROS Statement: Those systems with pertinent positive or pertinent negative responses have been documented in the HPI. ROS Other: All systems not noted in ROS Statement are negative. Past Medical History Past Medical History: Atrial Fibrillation, Asthma, Heart Failure, COPD, CVA/TIA, Hypertension, Osteoarthritis (OA), Pneumonia, Renal Disease, Syncope Additional Past Medical History / Comment(s): CVA 2006 recent ARF had dialysis cath inserted 02-02-18 gets dialysis Thu-Thu-Thu. History of Any Multi-Drug Resistant Organisms: None Reported Past Surgical History: Tonsillectomy Additional Past Surgical History / Comment(s): ORIF rt ankle-[address], IUD removal, lumbar steroid injections, dental implants, cardioversion, dialysis cath. has ocl on l wrist, states fell 1 1/2 month ago and has a hairline fracture of wrist Past Anesthesia/Blood Transfusion Reactions: No Reported Reaction Additional Past Anesthesia/Blood Transfusion Reaction / Comment(s): Past blood transfusions - no reaction Past Psychological History: Anxiety Smoking Status: Former smoker Past Alcohol Use History: None Reported Past Drug Use History: None Reported - Past Family History Mother Family Medical History: No Reported History Additional Family Medical History / Comment(s): Mother in her 80s from abdominal aortic aneurysm. Father Family Medical History: Myocardial Infarction ([place]) Additional Family Medical History / Comment(s): Father at age 52 from acute [place]. General Exam Limitations: no limitations General appearance: alert, in no apparent distress Head exam: Present: atraumatic, normocephalic, normal inspection Eye exam: Present: normal appearance, PERRL, EOMI. Absent: scleral icterus, conjunctival injection, periorbital swelling ENT exam: Present: normal exam, mucous membranes moist Neck exam: Present: normal inspection, full ROM. Absent: tenderness, meningismus, lymphadenopathy Respiratory exam: Present: normal lung sounds bilaterally. Absent: respiratory distress, wheezes, rales, rhonchi, stridor Cardiovascular Exam: Present: regular rate, normal rhythm, normal heart sounds. Absent: systolic murmur, diastolic murmur, rubs, gallop, clicks GI/Abdominal exam: Present: soft, normal bowel sounds. Absent: distended, tenderness, guarding, rebound, rigid Neurological exam: Present: alert, oriented X3, CN II-XII intact Psychiatric exam: Present: normal affect, normal mood Course Vital Signs 09/08/18 20:15 Temperature 97.9 F Pulse Rate 55 L Respiratory 22 Rate Blood Pressure 132/69 O2 Sat by Pulse 99 Oximetry EKG Findings - EKG Comments: EKG Findings:: Sinus bradycardia, ventricular rate 53, WI interval 200, QTC 487, Medical Decision Making - Medical Decision Making 72-year-old female presents to the emergency department for a chief complaint of shortness of breath. Patient has a history of COPD and end-stage renal disease. CBC unremarkable. CMP does have a creatinine of 4.46 which is patient's baseline. BNP 60,800 which has actually improved since August 16.. Chest x-ray does show mild cardiomegaly with mild congestive heart failure and interstitial pulmonary edema. Patient reevaluated several times stating she still feels like she can't breathe after DuoNeb. Patient evaluated by Dr. Bautista as well and discussed this is likely cause of chronic COPD and ESRD. However patient does not feel comfortable going home. Patient will be admitted for further management - Lab Data Result diagrams: 09/08/18 21:50 09/08/18 21:50 Lab Results 09/08/18 09/08/18 09/08/18 Range/Units 21:50 21:50 21:50 WBC 7.0 (3.8-10.6) k/uL RBC 3.41 L (3.80-5.40) m/uL Hgb 10.1 L (11.4-16.0) gm/dL Hct 32.3 L (34.0-46.0) % MCV 94.8 (80.0-100.0) fL MCH 29.8 (25.0-35.0) pg MCHC 31.4 (31.0-37.0) g/dL RDW 16.2 H (11.5-15.5) % Plt Count 227 (150-450) k/uL Neutrophils % (Manual) 68 % Lymphocytes % (Manual) 12 % Monocytes % (Manual) 16 % Eosinophils % (Manual) 3 % Myelocytes % 1 % Neutrophils # (Manual) 4.76 (1.3-7.7) k/uL Lymphocytes # (Manual) 0.84 L (1.0-4.8) k/uL Monocytes # (Manual) 1.12 H (0-1.0) k/uL Eosinophils # (Manual) 0.21 (0-0.7) k/uL Myelocytes # (Manual) 0.07 H (0) k/uL Nucleated RBCs 0 (0-0) /100 WBC Manual Slide Review Performed Hypochromasia Slight Anisocytosis Slight PT (9.0-12.0) sec INR (<1.2) APTT (22.0-30.0) sec Sodium 135 L (137-145) mmol/L Potassium 4.0 (3.5-5.1) mmol/L Chloride 97 L (98-107) mmol/L Carbon Dioxide 31 H (22-30) mmol/L Anion Gap 7 mmol/L BUN 32 H (7-17) mg/dL Creatinine 4.46 H (0.52-1.04) mg/dL Est GFR (CKD-EPI)AfAm 11 (>60 ml/min/1.73 sqM) Est GFR (CKD-EPI)NonAf 9 (>60 ml/min/1.73 sqM) Glucose 83 (74-99) mg/dL Calcium 8.7 (8.4-10.2) mg/dL Magnesium 1.9 (1.6-2.3) mg/dL Total Bilirubin 0.3 (0.2-1.3) mg/dL AST 17 (14-36) U/L ALT 14 (9-52) U/L Alkaline Phosphatase 115 (38-126) U/L Troponin I (0.000-0.034) ng/mL NT-Pro-B Natriuret Pep 22421 pg/mL Total Protein 6.0 L (6.3-8.2) g/dL Albumin 3.2 L (3.5-5.0) g/dL 09/08/18 09/08/18 Range/Units 21:50 21:50 WBC (3.8-10.6) k/uL RBC (3.80-5.40) m/uL Hgb (11.4-16.0) gm/dL Hct (34.0-46.0) % MCV (80.0-100.0) fL MCH (25.0-35.0) pg MCHC (31.0-37.0) g/dL RDW (11.5-15.5) % Plt Count (150-450) k/uL Neutrophils % (Manual) % Lymphocytes % (Manual) % Monocytes % (Manual) % Eosinophils % (Manual) % Myelocytes % % Neutrophils # (Manual) (1.3-7.7) k/uL Lymphocytes # (Manual) (1.0-4.8) k/uL Monocytes # (Manual) (0-1.0) k/uL Eosinophils # (Manual) (0-0.7) k/uL Myelocytes # (Manual) (0) k/uL Nucleated RBCs (0-0) /100 WBC Manual Slide Review Hypochromasia Anisocytosis PT 10.1 (9.0-12.0) sec INR 0.9 (<1.2) APTT 26.0 (22.0-30.0) sec Sodium (137-145) mmol/L Potassium (3.5-5.1) mmol/L Chloride (98-107) mmol/L Carbon Dioxide (22-30) mmol/L Anion Gap mmol/L BUN (7-17) mg/dL Creatinine (0.52-1.04) mg/dL Est GFR (CKD-EPI)AfAm (>60 ml/min/1.73 sqM) Est GFR (CKD-EPI)NonAf (>60 ml/min/1.73 sqM) Glucose (74-99) mg/dL Calcium (8.4-10.2) mg/dL Magnesium (1.6-2.3) mg/dL Total Bilirubin (0.2-1.3) mg/dL AST (14-36) U/L ALT (9-52) U/L Alkaline Phosphatase (38-126) U/L Troponin I 0.033 (0.000-0.034) ng/mL NT-Pro-B Natriuret Pep pg/mL Total Protein (6.3-8.2) g/dL Albumin (3.5-5.0) g/dL Disposition Clinical Impression: ESRD (end stage renal disease), COPD (chronic obstructive pulmonary disease), Shortness of breath, CHF (congestive heart failure) Disposition: ADMITTED IP TO THIS [facility] Condition: Fair Is patient prescribed a controlled substance at d/c from ED?: No Referrals: Soren Desai MD [Primary Care Provider] - 1-2 days Time of Disposition: 23:39
[2018-09-08 22:17] LABS: Anisocytosis Slight; HCT 32.3 % (34.0-46.0); HGB 10.1 gm/dL (11.4-16.0); Hypochromasia Slight; MCH 29.8 pg (25.0-35.0); MCHC 31.4 g/dL (31.0-37.0); MCV 94.8 fL (80.0-100.0); Platelet Count 227 k/uL (150-450); RBC 3.41 m/uL (3.80-5.40); RDW 16.2 % (11.5-15.5)
[2018-09-08 22:19] LABS: Albumin 3.2 g/dL (3.5-5.0); Calcium 8.7 mg/dL (8.4-10.2); INR 0.9 (<1.2); Magnesium 1.9 mg/dL (1.6-2.3); Prothrombin Time 10.1 sec (9.0-12.0); Total Bilirubin 0.3 mg/dL (0.2-1.3)
--- NOTE | 2018-09-08 22:22 | XR ---
EXAM: XR Chest, 2 Views CLINICAL HISTORY: Reason: difficulty breathing TECHNIQUE: Frontal and lateral views of the chest. COMPARISON: Portable chest radiograph 08/16/2018. FINDINGS: Lungs: Pulmonary vascular congestion. Mild bilateral interstitial opacities. No focal pulmonary consolidations. Pleural space: No evidence of pneumothorax or pleural effusion. Heart: Mild cardiomegaly. Mediastinum: Unremarkable. Bones/joints: Osseous demineralization. Tubes, lines and devices: Indwelling central venous catheter extends to level of right atrium, unchanged. IMPRESSION: Mild cardiomegaly and findings raising possibility of mild congestive failure and interstitial pulmonary edema.
[2018-09-08 22:43] LABS: Eosinophils # (M) 0.21 k/uL (0-0.7); Lymphocytes # (M) 0.84 k/uL (1.0-4.8); Monocytes # (M) 1.12 k/uL (0-1.0); Myelocytes # (M) 0.07 k/uL (0); Myelocytes % 1 %; Neutrophils # (M) 4.76 k/uL (1.3-7.7); Neutrophils % (M) 68 %; Nucleated Red Blood Cells 0 /100 WBC (0-0); Total Cells Counted 200
[2018-09-09] MEDS: methylPREDNISolone SOD SUCCI 125 MG/2 ML VIAL IV SCH ×4 (00:29→19:32)
[2018-09-09] MEDS: IPRATROPIUM-ALBUTEROL 3 ML NEB INHALATION SCH ×4 (08:58→21:04)
[2018-09-09] MEDS ORDERED: ALBUTEROL NEBULIZED 2.5 MG/3 ML INHALATION PRN (09:16)
--- NOTE | 2018-09-09 09:51 | P.NPCON ---
History of Present Illness - Reason for Consult end stage renal disease - History of Present Illness Reason for consultation: End-stage renal disease History of present illness: Patient is a 72-year-old female seen in renal consultation for end-stage renal disease. She is maintained on hemodialysis on a Thursday schedule via right chest permacath. Patient had hemodialysis on Thursday. She had 3 L ultrafiltration. Patient states last night she became dyspneic and decided to come to the hospital. She is currently requiring oxygen support. She is awake and alert. Denies chest pain. Remains somewhat short of breath. Hemodynamically stable. No vomiting or diarrhea. No fever or chills. Denies cough. Chest x-ray suggestive of fluid overload. Patient has history of renal artery stenosis. Again her blood pressure has been relatively stable. She actually becomes hypotensive if her meds are given prior to dialysis. Vital signs are stable. General: The patient appeared well nourished and normally developed. HEENT: Head exam is unremarkable. Neck is without jugular venous distension. LUNGS: Breath sounds decreased. HEART: Rate and Rhythm are regular. First and second heart sounds normal. No murmurs, rubs or gallops. ABDOMEN: Abdominal exam reveals normal bowel sounds. Non-tender and non- distended. No evidence of peritonitis. EXTREMITITES: No clubbing, cyanosis, or edema. Past Medical History Past Medical History: Atrial Fibrillation, Asthma, Heart Failure, COPD, CVA/TIA, Hypertension, Osteoarthritis (OA), Pneumonia, Renal Disease, Syncope Additional Past Medical History / Comment(s): CVA 2005, ESRD, Dialysis cath inserted 02-02-18 gets dialysis . History of Any Multi-Drug Resistant Organisms: None Reported Past Surgical History: Tonsillectomy Additional Past Surgical History / Comment(s): ORIF rt ankle-[address], IUD removal, lumbar steroid injections, dental implants, cardioversion, dialysis cath. has ocl on l wrist, states fell 1 1/2 month ago and has a hairline fracture of wrist Past Anesthesia/Blood Transfusion Reactions: No Reported Reaction Additional Past Anesthesia/Blood Transfusion Reaction / Comment(s): Past blood transfusions - no reaction Past Psychological History: Anxiety Smoking Status: Former smoker Past Alcohol Use History: None Reported Additional Past Alcohol Use History / Comment(s): Patient smoked one and half packs of cigarettes per day started in 1973 and quit 2007. Patient used to drink heavily-none now Past Drug Use History: None Reported - Past Family History Mother Family Medical History: No Reported History Additional Family Medical History / Comment(s): Mother in her 80s from abdominal aortic aneurysm. Father Family Medical History: Myocardial Infarction ([place]) Additional Family Medical History / Comment(s): Father at age 52 from acute [place]. Medications and Allergies Home Medications Medication Instructions Recorded Confirmed Type Sertraline HCl [Zoloft] 50 mg PO HS 04/30/17 09/08/18 History Apixaban [Eliquis] 2.5 mg PO BID #60 tablet 02/06/18 09/08/18 Rx Albuterol Inhaler [Ventolin Hfa 2 puff INHALATION RT-Q4H PRN 05/31/18 09/08/18 History Inhaler] Calcium Acetate [PhosLo] 667 mg PO AC-TID 05/31/18 09/08/18 History Furosemide [Lasix] 80 mg PO BID 06/24/18 09/08/18 History Amiodarone [Cordarone] 100 mg PO DAILY #60 tab 08/23/18 09/08/18 Rx Metoprolol Tartrate [Lopressor] 25 mg PO BID tab 08/23/18 09/08/18 Rx Zolpidem [Ambien] 5 mg PO HS #3 tab 08/23/18 09/08/18 Rx Ipratropium-Albuterol Nebulize 3 ml INHALATION RT-DAILY 09/08/18 09/08/18 Histo ry [Duoneb 0.5 mg-3 mg/3 ml Soln] amLODIPine [Norvasc] 10 mg PO DAILY 09/08/18 09/08/18 History hydrALAZINE HCL [Apresoline] 100 mg PO TID 09/08/18 09/08/18 History Allergies Allergy/AdvReac Type Severity Reaction Status Date / Time No Known Allergies Allergy Verified 09/08/18 20:32 Physical Exam Vitals: Vital Signs Temp Pulse Pulse Resp BP BP Pulse Ox 09/09/18 09:11 56 L 09/09/18 08:58 52 L 09/09/18 05:00 97.9 F 61 18 168/74 99 09/09/18 02:54 55 L 18 09/09/18 02:49 97.8 F 55 L 20 161/78 95 09/09/18 01:38 98.1 F 54 L 22 155/74 96 09/09/18 00:34 98.3 F 53 L 20 145/68 98 09/08/18 21:52 56 L 20 138/65 98 09/08/18 20:15 97.9 F 55 L 22 132/69 99 Intake and Output 09/08/18 09/09/18 09/09/18 22:59 06:59 14:59 Intake Total 200 Balance 200 Intake: Oral 200 Other: Voiding Method Toilet Weight 51.256 kg 44 kg Results - Lab Results Most recent lab results Calcium 8.7 mg/dL (8.4-10.2) 09/08/18 21:50 Magnesium 1.9 mg/dL (1.6-2.3) 09/08/18 21:50 09/08/18 21:50 09/08/18 21:50 Assessment and Plan Plan: Assessment: 1. End-stage renal disease maintained on hemodialysis on a Thursday schedule via permacath. Patient also has a peritoneal dialysis catheter and is currently being trained to do peritoneal dialysis. 2. Dyspnea secondary to volume overload. 3. Hypertension with chronic kidney disease. Patient also has renal artery stenosis. 4. Chronic kidney disease mineral bone disease maintained on PhosLo. 5. Diastolic CHF. Plan: Hemodialysis today. Patient to get hydralazine now. Rest of the antihypertensives to be given after hemodialysis so adequate ultrafiltration can be done. Thank you for the consultation. I will continue to follow the patient with you during her hospital stay.
[2018-09-09] MEDS: hydrALAZINE HCL 50 MG TAB PO SCH ×3 (10:03→21:51)
[2018-09-09] MEDS: APIXABAN 2.5 MG TABLET PO SCH ×2 (10:03→20:52)
[2018-09-09] MEDS: FUROSEMIDE 80 MG TAB PO SCH ×2 (10:04→20:52)
[2018-09-09 16:36] VITALS: BMI 16.1
[2018-09-09] MEDS: AMIODARONE 100 MG TAB PO SCH (18:35)
[2018-09-09] MEDS: CALCIUM ACETATE 667 MG CAP PO SCH ×2 (18:36→18:38)
[2018-09-09] MEDS: amLODIPine 10 MG TAB PO SCH (18:36)
[2018-09-09] MEDS: METOPROLOL TARTRATE 25 MG TAB PO SCH ×2 (18:36→20:52)
--- NOTE | 2018-09-09 19:00 | HP ---
HISTORY AND PHYSICAL DATE OF ADMISSION: 09/08/2018 DATE OF SERVICE: PRESENTING COMPLAINT: Short of breath. HISTORY OF PRESENTING COMPLAINT: This is a pleasant 72-year-old patient with many multiple medical problems. Chronic stable medical conditions include end-stage kidney disease, on hemodialysis, hypertensive heart disease, rheumatoid arthritis, hyperlipidemia, anxiety, depression and chronic anemia. The patient has had multiple admissions for pulmonary edema. Patient's hemodialysis is on Tuesdays, and Saturdays. Patient presented with increasing shortness of breath and wheezing. Denies any chest pain. No fever. No chills. No cough. No sputum production. Patient is felt to have a combination of fluid overload and COPD exacerbation. Wheezing is also present. REVIEW OF SYSTEMS: CONSTITUTIONAL: Tired. HEENT: Decreased hearing. RESPIRATORY: As above. CARDIOVASCULAR: No chest pain. GASTROINTESTINAL: None. GENITOURINARY: None. MUSCULOSKELETAL: Pain in the joints. DERMATOLOGICAL: None. HEMATOLOGICAL: None. LYMPHATICS: None. PSYCHIATRY: Anxious. Sometimes forgetful. NEUROLOGICAL: None. PAST MEDICAL HISTORY: 1. Anemia. 2. Chronic kidney disease. 3. Chronic mineral bone disease. 4. Hypertension. 5. Anxiety. 6. Depression. 7. Hyperlipidemia. 8. Rheumatoid arthritis. 9. End-stage kidney disease, on hemodialysis. 10.Paroxysmal atrial fibrillation. 11.Congestive heart failure, ejection fraction 45% to 50%. PAST SURGICAL HISTORY: 1. Tonsillectomy. 2. ORIF of the right ankle; [address] 3. Lumbar steroid injections. 4. Dental implants. 5. Cardioversion. 6. Hemodialysis catheter. 7. Patient recently had peritoneal dialysis catheter placed. SOCIAL HISTORY: The patient smoked a pack and half a day for close to 35 years, stopped about 8 years ago. Did drink heavy alcohol in the past. . FAMILY HISTORY: Mother had abdominal aortic aneurysm. HOME MEDICATIONS: 1. Hydralazine 100 mg t.i.d. 2. Norvasc 10 mg p.o. daily. 3. Ambien 5 mg at bedtime. 4. Zoloft 50 mg at bedtime. 5. Lopressor 25 mg b.i.d. 6. DuoNeb daily. 7. Lasix 80 mg b.i.d. 8. PhosLo 667 mg p.o. t.i.d. 9. Eliquis 2.5 p.o. b.i.d. 10.Cordarone 100 mg daily. 11.Ventolin HFA 2 puffs q.4 p.r.n. ALLERGIES: NONE. PHYSICAL EXAMINATION: Temperature 97.4, pulse 70, respiration 20, blood pressure 141/72 pulse ox 93% on room air. GENERAL APPEARANCE: Sitting up, tired. EYES: Pupils equal. Conjunctivae normal. HEENT: External appearance of nose and ears normal. Oral cavity normal. NECK: JVD unable to assess. Mass not palpable. RESPIRATORY: Effort increased. LUNGS: Decreased breath sounds. Some wheezing. CARDIOVASCULAR: First and second sounds normal. No edema. ABDOMEN: Soft, non-tender. Liver and spleen not palpable. Peritoneal dialysis catheter in place. PSYCHIATRY: Alert and oriented x3. Mood and affect normal. NEUROLOGICAL: Pupils equal. Cranial nerves grossly intact. Power and sensation grossly intact. INVESTIGATIONS: White count 7, hemoglobin 10.1. Potassium 4. BUN 32, creatinine 4.46. Chest x-ray film, personally reviewed by me, shows some cardiomegaly, pulmonary edema. ASSESSMENT: 1. Acute on chronic congestive heart failure exacerbation from fluid overload from systolic and diastolic dysfunction, ejection fraction 45% to 50%. 2. End-stage kidney disease, on hemodialysis Tuesdays, and Saturdays. 3. Hypertensive heart disease. 4. Chronic obstructive pulmonary disease, acute exacerbation, in an ex-smoker. 5. Paroxysmal atrial fibrillation, currently in sinus rhythm. 6. Chronic rheumatoid arthritis. 7. Hyperlipidemia. 8. Anxiety and depression not otherwise specified. 9. 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 10.Anemia of chronic kidney disease. PLAN: Patient is due for hemodialysis today. Fluid will be removed. The patient also was put on IV steroids. Increase the frequency of bronchodilators. Other home medications are resumed. Care was discussed with the patient. Questions were answered. Nephrology was consulted. MMODL / IJN: [id number] /
[2018-09-09] MEDS: SERTRALINE 50 MG TAB PO SCH (20:53)
[2018-09-09] MEDS: ZOLPIDEM 5 MG TAB PO SCH (21:51)
[2018-09-09] MEDS: methylPREDNISolone SOD SUCCI 40 MG/ML 1 ML VIAL IV SCH (23:39)
--- NOTE | 2018-09-10 07:54 | P.PN ---
Subjective Patient is seen in follow-up for end-stage renal disease. She is maintained on hemodialysis on a Thursday schedule via permacath. She tolerated hemodialysis well yesterday with 3.5 L ultrafiltration. Dyspnea is improved. Denies chest pain. Vital signs are stable. General: The patient appeared well nourished and normally developed. HEENT: Head exam is unremarkable. Neck is without jugular venous distension. LUNGS: Breath sounds decreased. HEART: Rate and Rhythm are regular. First and second heart sounds normal. No murmurs, rubs or gallops. ABDOMEN: Abdominal exam reveals normal bowel sounds. Non-tender and non-distend ed. No evidence of peritonitis. EXTREMITITES: No clubbing, cyanosis, or edema. Objective - Vital Signs Vital signs: Vital Signs Temp 98.4 F 09/10/18 04:56 Pulse 80 09/10/18 04:56 Resp 17 09/10/18 04:56 BP 171/82 09/10/18 04:56 Pulse Ox 98 09/10/18 04:56 Intake & Output 09/09/18 09/10/18 09/10/18 18:59 06:59 18:59 Intake Total 900 1080 Output Total 3800 500 Balance -2900 580 Weight 44 kg 50.621 kg Intake: Oral 600 780 Hemodialysis 300 300 Output: Hemodialysis 3800 500 Other: Voiding Method Toilet Toilet # Voids 2 1 # Bowel Movements 1 - Labs CBC & Chem 7: 09/08/18 21:50 09/08/18 21:50 Assessment and Plan Plan: Assessment: 1. End-stage renal disease maintained on hemodialysis on a Thursday schedule via permacath. Patient also has a peritoneal dialysis catheter and is currently being trained to do peritoneal dialysis. 2. Dyspnea secondary to volume overload. Better. 3. Hypertension with chronic kidney disease. Patient also has renal artery stenosis. 4. Chronic kidney disease mineral bone disease maintained on PhosLo. 5. Diastolic CHF. Plan: Extra treatment of hemodialysis today with goal 2 liters ultrafiltration. Another treatment tomorrow per her outpatient schedule. Maintain current antihypertensives. The systolic blood pressure less than 120.
[2018-09-10] MEDS: IPRATROPIUM-ALBUTEROL 3 ML NEB INHALATION SCH ×4 (08:28→20:17)
[2018-09-10] MEDS: hydrALAZINE HCL 50 MG TAB PO SCH ×3 (15:41→20:41)
[2018-09-10] MEDS: amLODIPine 10 MG TAB PO SCH (15:41)
[2018-09-10] MEDS: methylPREDNISolone SOD SUCCI 40 MG/ML 1 ML VIAL IV SCH ×3 (15:42→23:25)
[2018-09-10] MEDS: CALCIUM ACETATE 667 MG CAP PO SCH ×3 (15:44→17:44)
[2018-09-10] MEDS: APIXABAN 2.5 MG TABLET PO SCH ×2 (15:44→20:41)
[2018-09-10] MEDS: FUROSEMIDE 80 MG TAB PO SCH ×2 (15:44→20:41)
[2018-09-10] MEDS: METOPROLOL TARTRATE 25 MG TAB PO SCH ×2 (15:45→20:41)
[2018-09-10] MEDS: AMIODARONE 100 MG TAB PO SCH (15:46)
[2018-09-10] MEDS: ZOLPIDEM 5 MG TAB PO SCH (20:41)
[2018-09-10] MEDS: SERTRALINE 50 MG TAB PO SCH (20:41)
--- NOTE | 2018-09-11 07:58 | PN ---
PROGRESS NOTE DATE OF SERVICE: September 10, 2018. PRESENTING COMPLAINT: Short of breath. INTERVAL HISTORY: This is a patient on hemodialysis, presents with COPD exacerbation and fluid overload. Had some ultrafiltration done today. Breathing is getting better. Did tolerate some diet. REVIEW OF SYSTEMS: Done for constitutional, cardiovascular, GI, pulmonary and relevant findings as above. CURRENT MEDICATIONS: Reviewed that include DuoNeb, p.o. Lasix. PHYSICAL EXAMINATION: VITAL SIGNS: Temperature 98, pulse 78, respiratory 18, blood pressure 105/64, pulse ox 98%. GENERAL APPEARANCE: Sitting up, awake. EYES: Pupils equal, conjunctivae normal. NECK: JVD not raised. Mass not palpable. RESPIRATORY: Effort increased. LUNGS: Diminished breath sounds. CARDIOVASCULAR: First and second sounds no edema. ABDOMEN: Soft, nontender. Liver and spleen not palpable. PD catheter in place. PSYCHIATRY: Alert and oriented times three. Mood and affect normal. INVESTIGATIONS: No blood work from today. ASSESSMENT: 1. Acute on chronic congestive heart failure exacerbation from fluid overload from systolic and diastolic dysfunction, EF 45-50 percent, improving with dialysis. 2. End stage kidney disease, dialysis on Thursday, , and Thursday. 3. Hypertensive heart disease. 4. Acute chronic obstructive pulmonary disease exacerbation in an ex-smoker, improving. 5. Paroxysmal atrial fibrillation currently in sinus rhythm. 6. Chronic rheumatoid arthritis. 7. Hyperlipidemia. 8. Anxiety and depression, not otherwise specified. 9. 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 10.Anemia of chronic kidney disease. PLAN: Continue current medication and treatment plan. Patient is doing better. Hoping patient can be discharged after hemodialysis tomorrow. Care was discussed with the patient. MMODL / IJN: [id number] /
--- NOTE | 2018-09-11 07:58 | HP ---
HISTORY AND PHYSICAL ADDENDUM: DATE OF ADMISSION: 09/08/2018 DATE OF SERVICE: 09/09/2018 MMODL / IJN: [id number] /
[2018-09-11] MEDS: IPRATROPIUM-ALBUTEROL 3 ML NEB INHALATION SCH ×2 (09:03→12:24)
[2018-09-11 09:30] VITALS: BP 160/83; RESP 18; TEMP 97.7
[2018-09-11 10:11] VITALS: PULSE 77
[2018-09-11] MEDS: CALCIUM ACETATE 667 MG CAP PO SCH (11:36)
[2018-09-11] MEDS: AMIODARONE 100 MG TAB PO SCH (11:36)
[2018-09-11] MEDS: methylPREDNISolone SOD SUCCI 40 MG/ML 1 ML VIAL IV SCH (11:36)
[2018-09-11] MEDS: APIXABAN 2.5 MG TABLET PO SCH (11:37)
[2018-09-11] MEDS: METOPROLOL TARTRATE 25 MG TAB PO SCH (11:37)
[2018-09-11] MEDS: amLODIPine 10 MG TAB PO SCH (11:37)
[2018-09-11] MEDS: FUROSEMIDE 80 MG TAB PO SCH (11:37)
[2018-09-11] MEDS: hydrALAZINE HCL 50 MG TAB PO SCH (11:38)
--- NOTE | 2018-09-11 23:36 | DS ---
DISCHARGE SUMMARY DATE OF ADMISSION: 09/08/2018 DATE OF DISCHARGE: 09/11/2018. FINAL DIAGNOSES: 1. Acute on chronic congestive heart failure exacerbation from fluid overload from systolic and diastolic dysfunction, EF 45-50 percent. 2. End-stage kidney disease on hemodialysis Thursday, , and Thursday. 3. Patient has a peritoneal dialysis catheter, getting matured. 4. Hypertensive heart disease. 5. Acute chronic obstructive pulmonary disease exacerbation IN an ex-smoker, POA. 6. Paroxysmal atrial fibrillation currently in sinus rhythm. 7. Chronic rheumatoid arthritis. 8. Hyperlipidemia. 9. Anxiety and depression, not otherwise specified. 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 11.Anemia of chronic kidney disease. HOSPITAL COURSE: This patient yet again admitted with shortness of breath, found to be in CHF exacerbation. Had to be dialyzed sequentially and COPD exacerbation. Doing better today. Keen to go home. Care was discussed the patient's . CONSULTATION: Dr. Wilde from Nephrology. PHYSICAL EXAMINATION: Temperature 97.7, pulse 86, respiratory 18, blood pressure 160/83. LUNGS: Decreased breath sounds. PSYCH: AO x3. INVESTIGATIONS: Potassium 4, BUN 32, creatinine 4.46. DISCHARGE MEDICATIONS: 1. Zoloft 50 mg q.h.s. 2. Eliquis 2.5 mg p.o. b.i.d. 3. PhosLo 667 mg p.o. t.i.d. 4. Lasix 80 mg b.i.d. 5. Cordarone 100 mg p.o. daily. 6. Lopressor 25 mg b.i.d. 7. Ambien 5 mg q.h.s. 8. Norvasc 10 mg p.o. daily. 9. Hydralazine 100 mg p.o. t.i.d. 10.Ventolin HFA 2 puffs q.4 p.r.n. 11.DuoNeb t.i.d. FOLLOW UP: Dr. Desai in 2 days. Dialysis schedule to be maintained. Copy to Dr. Desai. YRN / GEE: [id number] /
== END 2018-09-11 12:40 | disposition home health service (06) | DRG 291 ==
LOC: EC 20:05 → 3NMEDONC 22:45 → OBSVTOIN 09-10 09:11
PROVIDERS: ADMIT Hospitalist; ATTEND Hospitalist
PROC: 5A1D70Z Performance of Urinary Filtration, Intermittent, Less than 6 Hours Per Day (ICD-10-PCS; principal; 2018-09-10)
DX: I13.2 Hypertensive heart and chronic kidney disease with heart failure and with stage 5 chronic kidney disease, or end stage renal disease (principal); I50.43 Acute on chronic combined systolic (congestive) and diastolic (congestive) heart failure; N18.6 End stage renal disease; J44.1 Chronic obstructive pulmonary disease with (acute) exacerbation; M06.9 Rheumatoid arthritis, unspecified; D63.1 Anemia in chronic kidney disease; I48.0 Paroxysmal atrial fibrillation; I70.1 Atherosclerosis of renal artery; E83.9 Disorder of mineral metabolism, unspecified; M19.90 Unspecified osteoarthritis, unspecified site; F41.8 Other specified anxiety disorders; E78.5 Hyperlipidemia, unspecified; Z96.5 Presence of tooth-root and mandibular implants; Z79.01 Long term (current) use of anticoagulants; Z79.899 Other long term (current) drug therapy; Z99.2 Dependence on renal dialysis; Z86.73 Personal history of transient ischemic attack (TIA), and cerebral infarction without residual deficits; Z90.89 Acquired absence of other organs; Z87.81 Personal history of (healed) traumatic fracture; Z82.49 Family history of ischemic heart disease and other diseases of the circulatory system; Z87.01 Personal history of pneumonia (recurrent); Z87.891 Personal history of nicotine dependence
CPT/HCPCS: 36415; 71046; 80053; 83735; 83880; 84484; 85025; 85610; 85730; 90935; 93005; 94640; 94760; 96374; 99285

== ENCOUNTER 2018-09-18 03:33 | Inpatient (IN) | payer MEDICARE, BC ==
[2018-09-18] MEDS ORDERED: IPRATROPIUM-ALBUTEROL 3 ML NEB INHALATION STA (04:01)
[2018-09-18] MEDS ORDERED: methylPREDNISolone SOD SUCCI 125 MG/2 ML VIAL IV STA (04:01)
--- NOTE | 2018-09-18 04:14 | ED ---
SOB HPI - General Chief Complaint: Shortness of Breath Stated Complaint: ANGELICA Time Seen by Provider: 09/18/18 03:51 Source: patient, EMS Mode of arrival: EMS - History of Present Illness Initial Comments: Brittany is a 72-year-old female with history of end-stage renal disease curr ently on hemodialysis Thursday currently planning to transition to peritoneal dialysis. Patient also has a history of COPD. She presents the emergency department today via EMS for evaluation of shortness of breath. Patient reports around 9 PM last night she began feeling that she couldn't catch her breath this persisted throughout the night and kept her from sleeping so this morning she finally decided to call EMS for transport to the hospital. Patient reports she feels like she is having COPD, she feels like she can't catch her breath she's had this multiple times in the past. Patient states that she doesn't feel breathing treatments work for her but that she needs steroids. Patient reports that she's been compliant with her dialysis she went on Thursday and of this week she believes that at about 3.5 L off of her on . She doesn't feel that she is fluid overloaded she's not noticed any edema in her lower extremity's. She is not having any chest pain or palpitations. - Related Data Home Medications Medication Instructions Recorded Confirmed Sertraline HCl [Zoloft] 50 mg PO HS 04/30/17 09/18/18 Calcium Acetate [PhosLo] 667 mg PO AC-TID 05/31/18 09/18/18 Furosemide [Lasix] 80 mg PO BID 06/24/18 09/18/18 amLODIPine [Norvasc] 10 mg PO DAILY 09/08/18 09/18/18 hydrALAZINE HCL [Apresoline] 100 mg PO TID 09/08/18 09/18/18 Previous Rx's Medication Instructions Recorded Apixaban [Eliquis] 2.5 mg PO BID #60 tablet 02/06/18 Amiodarone [Cordarone] 100 mg PO DAILY #60 tab 08/23/18 Metoprolol Tartrate [Lopressor] 25 mg PO BID tab 08/23/18 Zolpidem [Ambien] 5 mg PO HS #3 tab 08/23/18 Albuterol Inhaler [Ventolin Hfa 2 puff INHALATION RT-Q4H PRN #1 09/11/18 Inhaler] puff Ipratropium-Albuterol Nebulize 3 ml INHALATION TID #90 ampul.neb 09/11/18 [Duoneb 0.5 mg-3 mg/3 ml Soln] Allergies Allergy/AdvReac Type Severity Reaction Status Date / Time No Known Allergies Allergy Verified 09/08/18 20:32 Review of Systems ROS Statement: Those systems with pertinent positive or pertinent negative responses have been documented in the HPI. ROS Other: All systems not noted in ROS Statement are negative. Past Medical History Past Medical History: Atrial Fibrillation, Asthma, Heart Failure, COPD, CVA/TIA, Hypertension, Osteoarthritis (OA), Pneumonia, Renal Disease, Syncope Additional Past Medical History / Comment(s): CVA 2005, ESRD, Dialysis cath inserted 02-02-18 gets dialysis . History of Any Multi-Drug Resistant Organisms: None Reported Past Surgical History: Tonsillectomy Additional Past Surgical History / Comment(s): ORIF rt ankle-[address], IUD removal, lumbar steroid injections, dental implants, cardioversion, dialysis cath. has ocl on l wrist, states fell 1 1/2 month ago and has a hairline fracture of wrist Past Anesthesia/Blood Transfusion Reactions: No Reported Reaction Additional Past Anesthesia/Blood Transfusion Reaction / Comment(s): Past blood transfusions - no reaction Past Psychological History: Anxiety Smoking Status: Former smoker Past Alcohol Use History: None Reported Past Drug Use History: None Reported - Past Family History Mother Family Medical History: No Reported History Additional Family Medical History / Comment(s): Mother in her 80s from abdominal aortic aneurysm. Father Family Medical History: Myocardial Infarction ([place]) Additional Family Medical History / Comment(s): Father at age 52 from acute [place]. General Exam - General Exam Comments Initial Comments: Physical Exam GENERAL: Chronically ill-appearing HENT: Normocephalic, Atraumatic. EYES: PERRL, EOMI PULMONARY: Expiratory wheezing in all lung caceres No rales or crackles CARDIOVASCULAR: There is a regular rate and rhythm without any murmurs gallops or rubs. ABDOMEN: Band around the abdomen were peritoneal dialysis port has been placed SKIN: Hemodialysis port present in right upper chest Skin is clear with no lesions or rashes and otherwise unremarkable. : Deferred NEUROLOGIC: Patient is alert and oriented x3. Moving all extremities spontaneously MUSCULOSKELETAL: Normal extremities with adequate strength and full range of motion. No lower extremity swelling or edema. No calf tenderness. PSYCHIATRIC: Normal psychiatric evaluation. Limitations: no limitations Course Vital Signs 09/18/18 09/18/18 09/18/18 03:34 04:19 04:35 Temperature 98.0 F Pulse Rate 78 57 L 60 Respiratory 20 16 16 Rate Blood Pressure 157/87 O2 Sat by Pulse 90 L Oximetry 09/18/18 05:30 Temperature Pulse Rate 88 Respiratory 20 Rate Blood Pressure 163/77 O2 Sat by Pulse 99 Oximetry Medical Decision Making - Medical Decision Making The patient was seen and evaluated immediately upon arrival to the emergency department, patient was noted to have some hypoxia, she was on supplement oxygen was satting 90%, patient is not typically on supplemental oxygen. Further treatment for COPD exacerbation was ordered including 2 more DuoNeb's and Solu- Medrol. In addition cardiac workup was initiated Patient experienced worsening wheezing after 2 DuoNeb's, magnesium was ordered to help with COPD exacerbation Chest x-ray with pulmonary edema Labs resulted with findings consistent with chronic kidney disease, there is no hyperkalemia, sodium is mildly low, troponin is more elevated than previous at 0.55 in addition the patient's B[place] [address] which is an increase from her previous evaluation. Patient was reevaluated oxygen saturations are in the high 90s on 4 L of nasal cannula. Findings were discussed with the patient who is agreeable to plan for staying in the hospital for further evaluation of heart failure, patient's machine ironer will be consult to to arrange for inpatient dialysis. - Lab Data Result diagrams: 09/18/18 04:18 09/18/18 04:18 Lab Results 09/18/18 09/18/18 09/18/18 Range/Units 04:18 04:18 04:18 WBC 11.8 H (3.8-10.6) k/uL RBC 3.41 L (3.80-5.40) m/uL Hgb 10.1 L (11.4-16.0) gm/dL Hct 31.4 L (34.0-46.0) % MCV 92.1 (80.0-100.0) fL MCH 29.6 (25.0-35.0) pg MCHC 32.1 (31.0-37.0) g/dL RDW 16.5 H (11.5-15.5) % Plt Count 261 (150-450) k/uL Neutrophils % 82 % Lymphocytes % 4 % Monocytes % 6 % Eosinophils % 3 % Basophils % 0 % Neutrophils # 9.6 H (1.3-7.7) k/uL Lymphocytes # 0.5 L (1.0-4.8) k/uL Monocytes # 0.7 (0-1.0) k/uL Eosinophils # 0.3 (0-0.7) k/uL Basophils # 0.0 (0-0.2) k/uL Anisocytosis Slight PT (9.0-12.0) sec INR (<1.2) APTT (22.0-30.0) sec Sodium 131 L (137-145) mmol/L Potassium 4.4 (3.5-5.1) mmol/L Chloride 93 L (98-107) mmol/L Carbon Dioxide 28 (22-30) mmol/L Anion Gap 10 mmol/L BUN 55 H (7-17) mg/dL Creatinine 4.06 H (0.52-1.04) mg/dL Est GFR (CKD-EPI)AfAm 12 (>60 ml/min/1.73 sqM) Est GFR (CKD-EPI)NonAf 10 (>60 ml/min/1.73 sqM) Glucose 89 (74-99) mg/dL Calcium 9.1 (8.4-10.2) mg/dL Total Bilirubin 0.5 (0.2-1.3) mg/dL AST 23 (14-36) U/L ALT 20 (9-52) U/L Alkaline Phosphatase 105 (38-126) U/L Troponin I (0.000-0.034) ng/mL NT-Pro-B Natriuret Pep 75598 pg/mL Total Protein 6.2 L (6.3-8.2) g/dL Albumin 3.4 L (3.5-5.0) g/dL 09/18/18 09/18/18 Range/Units 04:18 04:18 WBC (3.8-10.6) k/uL RBC (3.80-5.40) m/uL Hgb (11.4-16.0) gm/dL Hct (34.0-46.0) % MCV (80.0-100.0) fL MCH (25.0-35.0) pg MCHC (31.0-37.0) g/dL RDW (11.5-15.5) % Plt Count (150-450) k/uL Neutrophils % % Lymphocytes % % Monocytes % % Eosinophils % % Basophils % % Neutrophils # (1.3-7.7) k/uL Lymphocytes # (1.0-4.8) k/uL Monocytes # (0-1.0) k/uL Eosinophils # (0-0.7) k/uL Basophils # (0-0.2) k/uL Anisocytosis PT 10.1 (9.0-12.0) sec INR 0.9 (<1.2) APTT 28.7 (22.0-30.0) sec Sodium (137-145) mmol/L Potassium (3.5-5.1) mmol/L Chloride (98-107) mmol/L Carbon Dioxide (22-30) mmol/L Anion Gap mmol/L BUN (7-17) mg/dL Creatinine (0.52-1.04) mg/dL Est GFR (CKD-EPI)AfAm (>60 ml/min/1.73 sqM) Est GFR (CKD-EPI)NonAf (>60 ml/min/1.73 sqM) Glucose (74-99) mg/dL Calcium (8.4-10.2) mg/dL Total Bilirubin (0.2-1.3) mg/dL AST (14-36) U/L ALT (9-52) U/L Alkaline Phosphatase (38-126) U/L Troponin I 0.055 H* (0.000-0.034) ng/mL NT-Pro-B Natriuret Pep pg/mL Total Protein (6.3-8.2) g/dL Albumin (3.5-5.0) g/dL - EKG Data -: EKG Interpreted by Me EKG shows normal: sinus rhythm EKG Comments: EKG was obtained at 3:42 AM, rate is 76 rhythm is sinus there is normal axis there are normal intervals, CA 172, care is 104, QTC is 436 there are no acute ST elevations or depressions there is no evidence of acute ischemia or infarction. There is no significant T-wave peaking or abnormalities concerning for hyperkalemia. Critical Care Time Critical Care Time: Yes Total Critical Care Time: 30 Disposition Clinical Impression: Fluid overload, Systolic congestive heart failure, Hyponatremia, Shortness of breath, Atrial fibrillation with RVR, Acute exacerbation of chronic obstructive airways disease, ESRD (end stage renal disease) Disposition: ADMITTED IP TO THIS [facility] Condition: Serious Is patient prescribed a controlled substance at d/c from ED?: No Referrals: Soren Desai MD [Primary Care Provider] - 1-2 days
[2018-09-18 04:34] LABS: Anisocytosis Slight; Basophils % (A) 0 %; Eosinophils # (A) 0.3 k/uL (0-0.7); Eosinophils % (A) 3 %; HCT 31.4 % (34.0-46.0); HGB 10.1 gm/dL (11.4-16.0); Lymphocytes # (A) 0.5 k/uL (1.0-4.8); Lymphocytes % (A) 4 %; MCH 29.6 pg (25.0-35.0); MCHC 32.1 g/dL (31.0-37.0); MCV 92.1 fL (80.0-100.0); Mean Platelet Volume 7.7; Monocytes # (A) 0.7 k/uL (0-1.0); Monocytes % (A) 6 %; Neutrophils # (A) 9.6 k/uL (1.3-7.7); Neutrophils % (A) 82 %; Platelet Count 261 k/uL (150-450); RBC 3.41 m/uL (3.80-5.40); RDW 16.5 % (11.5-15.5); WBC 11.8 k/uL (3.8-10.6)
[2018-09-18 04:44] LABS: INR 0.9 (<1.2); Partial Thromboplastin Time 28.7 sec (22.0-30.0); Prothrombin Time 10.1 sec (9.0-12.0)
[2018-09-18 04:46] LABS: Albumin 3.4 g/dL (3.5-5.0); Calcium 9.1 mg/dL (8.4-10.2); Potassium 4.4 mmol/L (3.5-5.1); Total Bilirubin 0.5 mg/dL (0.2-1.3); Total Protein 6.2 g/dL (6.3-8.2)
[2018-09-18] MEDS ORDERED: MAGNESIUM SULFATE-D5W PMX 1 GM in DEXTROSE/WATER 1 100ML.BAG IVPB ONE (05:05)
--- NOTE | 2018-09-18 05:45 | XR ---
EXAM: XR Chest, 2 Views CLINICAL HISTORY: ITS.REASON XR Reason: difficulty breathing TECHNIQUE: Frontal and lateral views of the chest. COMPARISON: 09/08/18 chest x-ray IMPRESSION: Cardiomegaly. Mild pulmonary edema. Increased opacity in the right hilar region/right lower lobe. May represent infectious process, edema, or atelectasis.
[2018-09-18] MEDS ORDERED: ALBUTEROL NEBULIZED 2.5 MG/3 ML INHALATION PRN (05:59)
[2018-09-18] MEDS ORDERED: FUROSEMIDE 10 MG/ML 10 ML VIAL IV STA (06:00)
[2018-09-18] MEDS: hydrALAZINE HCL 50 MG TAB PO SCH ×3 (08:09→21:33)
[2018-09-18] MEDS: CALCIUM ACETATE 667 MG CAP PO SCH ×3 (08:09→17:37)
[2018-09-18] MEDS: APIXABAN 2.5 MG TABLET PO SCH ×2 (08:50→21:33)
[2018-09-18] MEDS: METOPROLOL TARTRATE 25 MG TAB PO SCH ×2 (08:50→21:32)
[2018-09-18] MEDS: amLODIPine 10 MG TAB PO SCH (08:50)
[2018-09-18] MEDS: AMIODARONE 100 MG TAB PO SCH (09:56)
--- NOTE | 2018-09-18 11:15 | P.NPCON ---
History of Present Illness - Reason for Consult end stage renal disease - Chief Complaint Shortness of breath. - History of Present Illness Brittany Levin is a 72-year-old lady coming to the hospital with shortness of breath. She is end-stage renal disease started on dialysis about 2 months ago. She follows with Dr. Wilde as outpatient at [facility], TTS schedule. As per her she did not miss dialysis on . She has right jugular permacath and also hemodialysis catheter. She is currently switching to peritoneal dialysis and under training. Last night she felt short of breath and presented to the hospital. Chest x-ray showed pulmonary edema. And she was admitted for dialysis management. Her troponins were slightly elevated. But denies any chest pains. Blood pressures slightly high in 150s 160 systolics. No nausea vomiting diarrhea. She has underlying cardiac disease and atrial fibrillation. She takes Lasix at home. But admits R urine output has decreased a lot. She makes minimal amount of urine. Review of Systems Constitutional: Reports as per HPI Past Medical History Past Medical History: Atrial Fibrillation, Asthma, Heart Failure, COPD, CVA/TIA, Hypertension, Osteoarthritis (OA), Pneumonia, Renal Disease, Syncope Additional Past Medical History / Comment(s): CVA 2005, ESRD, Dialysis cath inserted 02-02-18 gets dialysis . History of Any Multi-Drug Resistant Organisms: None Reported Past Surgical History: Tonsillectomy Additional Past Surgical History / Comment(s): ORIF rt ankle-[address], IUD removal, lumbar steroid injections, dental implants, cardioversion, dialysis cath. has ocl on l wrist, states fell 1 1/2 month ago and has a hairline fracture of wrist Past Anesthesia/Blood Transfusion Reactions: No Reported Reaction Additional Past Anesthesia/Blood Transfusion Reaction / Comment(s): Past blood transfusions - no reaction Past Psychological History: Anxiety Smoking Status: Former smoker Past Alcohol Use History: None Reported Additional Past Alcohol Use History / Comment(s): Patient smoked one and half packs of cigarettes per day started in 1973 and quit 2007. Patient used to drink heavily-none now Past Drug Use History: None Reported - Past Family History Mother Family Medical History: No Reported History Additional Family Medical History / Comment(s): Mother in her 80s from abdominal aortic aneurysm. Father Family Medical History: Myocardial Infarction ([place]) Additional Family Medical History / Comment(s): Father at age 52 from acute [place]. Medications and Allergies Home Medications Medication Instructions Recorded Confirmed Type Sertraline HCl [Zoloft] 50 mg PO HS 04/30/17 09/18/18 History Apixaban [Eliquis] 2.5 mg PO BID #60 tablet 02/06/18 09/18/18 Rx Calcium Acetate [PhosLo] 667 mg PO AC-TID 05/31/18 09/18/18 History Furosemide [Lasix] 80 mg PO BID 06/24/18 09/18/18 History Amiodarone [Cordarone] 100 mg PO DAILY #60 tab 08/23/18 09/18/18 Rx Metoprolol Tartrate [Lopressor] 25 mg PO BID tab 08/23/18 09/18/18 Rx Zolpidem [Ambien] 5 mg PO HS #3 tab 08/23/18 09/18/18 Rx amLODIPine [Norvasc] 10 mg PO DAILY 09/08/18 09/18/18 History hydrALAZINE HCL [Apresoline] 100 mg PO TID 09/08/18 09/18/18 History Albuterol Inhaler [Ventolin Hfa 2 puff INHALATION RT-Q4H PRN #1 09/11/18 09/18/18 Rx Inhaler] puff Ipratropium-Albuterol Nebulize 3 ml INHALATION RT-TID 09/18/18 09/18/18 History [Duoneb 0.5 mg-3 mg/3 ml Soln] Allergies Allergy/AdvReac Type Severity Reaction Status Date / Time No Known Allergies Allergy Verified 09/18/18 07:41 Physical Exam Vitals: Vital Signs Temp Pulse Pulse Resp BP BP Pulse Ox 09/18/18 08:00 98.9 F 84 16 154/71 90 L 09/18/18 07:02 98.4 F 80 17 167/75 92 L 09/18/18 06:18 86 20 166/92 97 09/18/18 05:30 88 20 163/77 99 09/18/18 04:35 60 16 09/18/18 04:19 57 L 16 09/18/18 03:34 98.0 F 78 20 157/87 90 L Intake and Output 09/17/18 09/18/18 09/18/18 22:59 06:59 14:59 Intake Total 150 240 Balance 150 240 Intake: Amount of Fluid Infused ( 150 ml) Oral 240 Other: Weight 53.07 kg Lying in bed., Slightly short of breath S1-S2 heard Right jugular permacath Basal crackles Edema. PD catheter Results - Lab Results Most recent lab results Calcium 9.1 mg/dL (8.4-10.2) 09/18/18 04:18 09/18/18 04:18 09/18/18 04:18 Assessment and Plan Assessment: #1 shortness of breath secondary to volume overload with pulmonary edema. #2 ESRD on hemodialysis, TTS schedule via right jugular permacath. Also switching modality to peritoneal dialysis. #3 hypertension with ESRD #4 anemia with ESRD #5 metabolic bone disease with ESRD #6 atrial fibrillation Plan: #1 plan hemodialysis today as per outpatient schedule. Goal ultrafiltration of 3.5 L. #2 ESRD medications #3 rule out underlying cardiac disease for acute volume dysfunction. Given very much for this consultation we'll follow along while she is in the hospital.
[2018-09-18] MEDS: IPRATROPIUM-ALBUTEROL 3 ML NEB INHALATION SCH ×3 (12:20→20:30)
--- NOTE | 2018-09-18 18:44 | HP ---
HISTORY AND PHYSICAL DATE OF ADMISSION: 09/18/2018 DATE OF SERVICE: 09/18/2018 PRESENTING COMPLAINT: Short of breath. HISTORY OF PRESENTING COMPLAINT: This is a 72-year-old patient who has had recurrent admissions. Chronic stable medical conditions include end-stage kidney disease on hemodialysis, hypertensive heart disease, rheumatoid arthritis, hyperlipidemia, anxiety, depression, chronic anemia, has a peritoneal dialysis catheter that is maturing. The patient states she has not missed any dialysis episodes. Presented with becoming increasing shortness of breath. No obvious wheezing. No cough. No fever. No chills. No edema. The patient is found to be in acute fluid overload. The patient is getting dialyzed this afternoon. Plan is for 3.5 L to be taken off. REVIEW OF SYSTEMS: CONSTITUTIONAL: Tired. HEENT: Decreased hearing. RESPIRATORY: As above. CARDIOVASCULAR: As above. GASTROINTESTINAL: None. GENITOURINARY: None. MUSCULOSKELETAL: Pain in the joints. DERMATOLOGICAL: None. HEMATOLOGICAL: None. LYMPHATICS: None. PSYCHIATRY: Some anxious and forgetful. NEUROLOGICAL: None. PAST MEDICAL HISTORY: Anemia of chronic kidney disease, on hemodialysis, end-stage; chronic mineral bone disease, hypertension, anxiety, depression, hyperlipidemia, rheumatoid arthritis, paroxysmal atrial fibrillation, congestive heart failure, EF 45-50 percent. PAST SURGICAL HISTORY: Tonsillectomy, ORIF of the right ankle, [address]; lumbar steroid injections, dental implant, cardioversion, hemodialysis catheter, peritoneal dialysis catheter that is maturing. SOCIAL HISTORY: The patient smoked a pack and a half a day for 35 years, stopped 8 years ago. Was drinking heavy alcohol in the past. . FAMILY HISTORY: Mother had abdominal aortic aneurysm. HOME MEDICATIONS: 1. Hydralazine 100 mg t.i.d. 2. Norvasc 10 mg a day. 3. Ambien 5 mg q.h.s. 4. Zoloft 50 mg q.h.s. 5. Lopressor 25 mg p.o. b.i.d. 6. DuoNeb t.i.d. 7. Lasix 80 mg b.i.d. 8. PhosLo 667 mg p.o. t.i.d. 9. Eliquis 2.5 p.o. b.i.d. 10.Cordarone 100 mg p.o. daily. 11.Ventolin HFA 2 puffs q.4 p.r.n. ALLERGIES: None. PHYSICAL EXAMINATION: Afebrile, pulse 84, respirations 16, blood pressure 155/71, pulse ox was 92% on 6 L earlier. GENERAL APPEARANCE: Propped up, tired. EYES: Pupils equal. Conjunctivae normal. HEENT: External nose and ears normal. Oral cavity normal. NECK: JVD unable to assess. Mass not palpable. Respiratory effort increased. LUNGS: Decreased breath sounds. CARDIOVASCULAR: First and second sounds normal. No edema. ABDOMEN: Soft, nontender. Liver and spleen not palpable. PD catheter in place. PSYCHIATRY: Alert and oriented x3. Mood and affect slightly anxious-appearing. NEUROLOGICAL: Pupils equal. Cranial nerves grossly intact. Power and sensation grossly intact. INVESTIGATIONS: White count 11.8, hemoglobin 10.1 potassium 4.4, BUN 55, creatinine 4.06. Troponin 0.055. EKG tracing personally reviewed by me shows ST-segment changes in the leads 1, aVL and V4 to V6. Chest x-ray film personally reviewed by me shows some venous prominence. ASSESSMENT: 1. Acute pulmonary edema probably from incomplete hemodialysis and/or from congestive heart failure exacerbation, fluid overload, both systolic and diastolic dysfunction, EF 45-50 percent. 2. End-stage kidney disease on hemodialysis Thursday, and Thursday. 3. Hypertensive heart disease. 4. Chronic obstructive pulmonary disease in an ex-smoker. 5. Paroxysmal atrial fibrillation currently in sinus rhythm. 6. Chronic rheumatoid arthritis. 7. Hyperlipidemia. 8. Anxiety and depression, not otherwise specified. 9. 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 10.Anemia of chronic kidney disease. PLAN: Patient getting hemodialyzed today, 3.5 L will be removed. Other home medications to be continued. Further hemodialysis as per Dr. Wilde. Care was discussed with the patient. The patient's peritoneal dialysis is in the process of getting matured. MMODL / IJN: [id number] /
[2018-09-18] MEDS: SERTRALINE 50 MG TAB PO SCH (21:33)
[2018-09-18 23:41] LABS: Hepatitis B Surface AB- Quant 4.3 mIU/mL
[2018-09-19] MEDS: hydrALAZINE HCL 50 MG TAB PO SCH ×2 (06:02→12:31)
[2018-09-19] MEDS: CALCIUM ACETATE 667 MG CAP PO SCH ×3 (06:02→17:26)
[2018-09-19 06:36] LABS: Calcium 9.1 mg/dL (8.4-10.2); Phosphorus 3.5 mg/dL (2.5-4.5)
[2018-09-19 06:39] LABS: Anisocytosis Slight; Basophils % (A) 0 %; Eosinophils % (A) 0 %; HCT 29.9 % (34.0-46.0); HGB 9.5 gm/dL (11.4-16.0); Lymphocytes # (A) 0.5 k/uL (1.0-4.8); Lymphocytes % (A) 4 %; MCH 29.6 pg (25.0-35.0); MCV 92.7 fL (80.0-100.0); Mean Platelet Volume 7.2; Monocytes # (A) 0.6 k/uL (0-1.0); Monocytes % (A) 5 %; Neutrophils # (A) 10.6 k/uL (1.3-7.7); Neutrophils % (A) 89 %; Platelet Count 271 k/uL (150-450); RBC 3.22 m/uL (3.80-5.40); RDW 16.6 % (11.5-15.5); WBC 11.9 k/uL (3.8-10.6)
[2018-09-19 06:47] LABS: Potassium 4.5 mmol/L (3.5-5.1)
[2018-09-19] MEDS: IPRATROPIUM-ALBUTEROL 3 ML NEB INHALATION SCH ×3 (07:06→20:40)
[2018-09-19] MEDS: amLODIPine 10 MG TAB PO SCH (09:06)
[2018-09-19] MEDS: APIXABAN 2.5 MG TABLET PO SCH ×2 (09:06→20:11)
[2018-09-19] MEDS: METOPROLOL TARTRATE 25 MG TAB PO SCH ×2 (09:06→20:11)
[2018-09-19] MEDS: AMIODARONE 100 MG TAB PO SCH (09:07)
[2018-09-19] MEDS: FOLIC ACID-VIT B COMPLEX-VIT C 1 CAP PO SCH (09:07)
--- NOTE | 2018-09-19 10:22 | P.PN ---
Subjective Progress Note Date: 09/19/18 Seen and examined for the follow-up of ESRD. Still complaining of shortness of breath today. She had dialysis yesterday and 3.5 L of ultrafiltration was done. No nausea vomiting or diarrhea. Objective - Vital Signs Vital signs: Vital Signs Temp 97.8 F 09/19/18 08:41 Pulse 95 09/19/18 09:38 Resp 20 09/19/18 09:38 BP 161/77 09/19/18 08:41 Pulse Ox 97 09/19/18 09:38 Intake & Output 09/18/18 09/19/18 09/19/18 18:59 06:59 18:59 Intake Total 860 540 120 Output Total 3500 Balance -2640 540 120 Weight 53.07 kg 54.6 kg Intake: IV 140 0.9 @ 20 140 Oral 720 540 120 Output: Hemodialysis 3500 Other: Voiding Method Toilet Toilet # Voids 2 0 - Exam Feels short of breath., No acute distress. S1-S2 heard Bilateral expiratory wheeze. No crackles No edema Right jugular permacath and a PD catheter. - Labs CBC & Chem 7: 09/19/18 05:52 09/19/18 05:52 Labs: Abnormal Lab Results - Last 24 Hours (Table) 09/19/18 09/19/18 Range/Units 05:52 05:52 WBC 11.9 H (3.8-10.6) k/uL RBC 3.22 L (3.80-5.40) m/uL Hgb 9.5 L (11.4-16.0) gm/dL Hct 29.9 L (34.0-46.0) % RDW 16.6 H (11.5-15.5) % Neutrophils # 10.6 H (1.3-7.7) k/uL Lymphocytes # 0.5 L (1.0-4.8) k/uL Sodium 128 L (137-145) mmol/L Chloride 92 L (98-107) mmol/L BUN 45 H (7-17) mg/dL Creatinine 3.49 H (0.52-1.04) mg/dL Glucose 102 H (74-99) mg/dL Assessment and Plan Assessment: #1 shortness of breath secondary to COPD flare with expiratory wheeze. #2 pulmonary edema resolved with dialysis, no fluid on clinical exam. #3 ESRD on hemodialysis, TTS Y right jugular permacath planning to shift to peritoneal dialysis. #4 hypertension with ESRD #5 anemia with ESRD #6 metabolic bone disease with ESRD #7 atrial fibrillation controlled rate. Plan: #1 hemodialysis yesterday was done with 3.5 L of ultrafiltration. Tolerated well. #2 check chest x-ray, scheduled breathing treatments and add Solu-Medrol 40 mg IV every 6. #3 plan hemodialysis tomorrow if she has fluid on chest x-ray. #4 ESRD medications #5 hold discharge for today until she clinically stabilizes
[2018-09-19] MEDS: methylPREDNISolone SOD SUCCI 40 MG/ML 1 ML VIAL IV SCH ×2 (10:38→17:27)
[2018-09-19 11:34] LABS: Glucose,Whole Blood 91 mg/dL (75-99)
--- NOTE | 2018-09-19 12:07 | XR ---
EXAMINATION TYPE: XR chest 2V DATE OF EXAM: 09/19/2018 HISTORY: wheezing, increased shortness of breath. REFERENCE: Previous study dated 09/18/2018. FINDINGS: The lungs are overinflated. Heart size upper limits of normal. There is vascular congestion and pulmonary edema. There is a left effusion. There is a large-bore, double-lumen catheter in place via a right internal jugular approach. Its tip is in the right atrium. IMPRESSION: 1. COPD. 2. CHANGES OF CONGESTIVE HEART FAILURE. 3. LEFT-SIDED EFFUSION.
[2018-09-19] MEDS: ALBUTEROL NEBULIZED 2.5 MG/3 ML INHALATION SCH ×5 (12:25→23:43)
[2018-09-19 16:56] LABS: Glucose,Whole Blood 193 mg/dL (75-99)
[2018-09-19] MEDS: INSULIN ASPART (NovoLOG) 100 UNIT/ML VIAL SQ SCH ×2 (17:26→22:39)
[2018-09-19] MEDS: SERTRALINE 50 MG TAB PO SCH (20:11)
[2018-09-19 20:17] LABS: Glucose,Whole Blood 145 mg/dL (75-99)
--- NOTE | 2018-09-19 21:11 | PN ---
PROGRESS NOTE DATE OF SERVICE: 09/19/18. PRESENTING COMPLAINT: Short of breath. INTERVAL HISTORY: Patient presents fluid overload, was hemodialyzed yesterday. Today patient started wheezing became more short of breath, was given bronchodilators IV steroids to which he felt a bit better. Did tolerate some diet. The patient is due for her next hemodialysis tomorrow. REVIEW OF SYSTEMS: Done for constitutional, cardiovascular, GI, pulmonary; relevant findings as above. CURRENT MEDICATIONS: Reviewed that include IV Solu-Medrol. PHYSICAL EXAMINATION: Temperature 97.5, pulse 66, respiratory 18, blood pressure 130/74, pulse ox 96% on 4 L. GENERAL APPEARANCE: Propped up, tired. EYES: Pupils equal. Conjunctivae normal. NECK: JVD unable to assess. Mass not palpable. RESPIRATORY: Effort increased. LUNGS: Decreased breath sounds, wheezing. CARDIOVASCULAR: First and second sounds, no edema. ABDOMEN: Soft, nontender. Liver and spleen not palpable. Abdomen PD catheter in place. PSYCHIATRY: Alert and oriented x3. Mood and affect normal. INVESTIGATIONS: White count 11.9, hemoglobin 9.5, potassium 4.5, BUN 45, creatinine 3.49. Chest x-ray unchanged, personally reviewed by me. ASSESSMENT: 1. Acute pulmonary edema from incomplete hemodialysis with no congestive heart failure exacerbation. Responded well to hemodialysis yesterday. 2. Acute chronic obstructive pulmonary disease exacerbation this morning. 3. End-stage kidney disease on hemodialysis Thursday, , and Thursday. 4. Hypertensive heart disease. 5. Paroxysmal atrial fibrillation currently in sinus rhythm. 6. Chronic rheumatoid arthritis. 7. Hyperlipidemia. 8. Anxiety and depression, not otherwise specified. 9. 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 10.Anemia of chronic kidney disease. PLAN: Patient has been put back on IV Solu-Medrol, frequent bronchodilators, scheduled for hemodialysis tomorrow. The patient's last echocardiogram from May showed an EF around 50-60 percent. MMODL / IJN: [id number] /
--- NOTE | 2018-09-19 21:27 | XR ---
EXAMINATION TYPE: XR chest 1V portable DATE OF EXAM: 09/19/2018 COMPARISON: Today HISTORY: Short of breath TECHNIQUE: Single frontal view of the chest is obtained. FINDINGS: There is coarse interstitial pulmonary infiltrate. There is coalescent density in the lowe r lung caceres. There is mild blunting of costophrenic angles. There is right central venous catheter with the tip in the right atrium. There is no pneumothorax. IMPRESSION: Increased pulmonary congestion and infiltrates and pleural fluid compared to last exam a nd consistent with worsening congestive heart failure.
[2018-09-20] MEDS: hydrALAZINE HCL 50 MG TAB PO SCH ×3 (00:26→14:12)
[2018-09-20] MEDS: methylPREDNISolone SOD SUCCI 40 MG/ML 1 ML VIAL IV SCH ×4 (00:26→16:43)
[2018-09-20] MEDS: ALBUTEROL NEBULIZED 2.5 MG/3 ML INHALATION SCH ×5 (03:46→21:10)
[2018-09-20 06:22] LABS: Glucose,Whole Blood 152 mg/dL (75-99)
[2018-09-20] MEDS: CALCIUM ACETATE 667 MG CAP PO SCH ×3 (06:24→16:40)
[2018-09-20] MEDS: INSULIN ASPART (NovoLOG) 100 UNIT/ML VIAL SQ SCH ×4 (06:24→21:29)
[2018-09-20] MEDS: IPRATROPIUM-ALBUTEROL 3 ML NEB INHALATION SCH ×3 (08:31→21:10)
[2018-09-20] MEDS: FOLIC ACID-VIT B COMPLEX-VIT C 1 CAP PO SCH (09:24)
[2018-09-20] MEDS: amLODIPine 10 MG TAB PO SCH (09:24)
[2018-09-20] MEDS: AMIODARONE 100 MG TAB PO SCH (09:24)
[2018-09-20] MEDS: APIXABAN 2.5 MG TABLET PO SCH ×2 (09:24→21:29)
[2018-09-20] MEDS: METOPROLOL TARTRATE 25 MG TAB PO SCH ×2 (09:24→21:29)
--- NOTE | 2018-09-20 09:32 | P.CRDCN ---
History of Present Illness Consult date: 09/20/18 Requesting physician: Steve Hudson Consult reason: congestive heart failure Chief complaint: Shortness of breath History of present illness: This is a 72-year-old female with history of end-stage renal disease, started dialysis approximately 2 months ago, she follows with Dr. Wilde. She also has a known history of paroxysmal atrial fibrillation and follows with Dr. Solis in the office. Chronic diastolic congestive heart failure, hypertension, hyperlipidemia, history of prior TIA, COPD. She presents to the hospital on this occasion with symptoms of shortness of breath. He was just recently discharged from the hospital on September 11 after being admitted with congestive cardiac failure. According to the patient, she has not missed any of her dialysis treatments. He states that she barely makes any urine. Her EKG on presentation here showed a normal sinus rhythm with ST-T wave changes noted in the lateral leads. Chest x-ray showed COPD with congestive cardiac failure and a left-sided pleural effusion. Blood pressure 134/60 heart rate in the 80s to 90s. Afebrile. Blood cell count 11.9, hemoglobin 9.5, platelet count 271. Sodium 128, potassium 4.5, BUN 45 and creatinine 3.4. Troponins 0.05, 0.04, 0.04. BNP level 75,100. Patient did have an echocardiogram with Doppler study performed in May of this year which revealed an ejection fraction of 55-60%. At the time of my examination this morning, patient still feels quite short of breath., Complaints of feeling weak. Past Medical History Past Medical History: Atrial Fibrillation, Asthma, Heart Failure, COPD, CVA/TIA, Hypertension, Osteoarthritis (OA), Pneumonia, Renal Disease, Syncope Additional Past Medical History / Comment(s): CVA 2005, ESRD, Dialysis cath inserted 02-02-18 gets dialysis . History of Any Multi-Drug Resistant Organisms: None Reported Past Surgical History: Tonsillectomy Additional Past Surgical History / Comment(s): ORIF rt ankle-[address], IUD removal, lumbar steroid injections, dental implants, cardioversion, dialysis cath. has ocl on l wrist, states fell 1 1/2 month ago and has a hairline fracture of wrist Past Anesthesia/Blood Transfusion Reactions: No Reported Reaction Additional Past Anesthesia/Blood Transfusion Reaction / Comment(s): Past blood transfusions - no reaction Past Psychological History: Anxiety Smoking Status: Former smoker Past Alcohol Use History: None Reported Additional Past Alcohol Use History / Comment(s): Patient smoked one and half packs of cigarettes per day started in 1973 and quit 2007. Patient used to drink heavily-none now Past Drug Use History: None Reported - Past Family History Mother Family Medical History: No Reported History Additional Family Medical History / Comment(s): Mother in her 80s from abdominal aortic aneurysm. Father Family Medical History: Myocardial Infarction ([place]) Additional Family Medical History / Comment(s): Father at age 52 from acute [place]. Medications and Allergies Home Medications Medication Instructions Recorded Confirmed Type Sertraline HCl [Zoloft] 50 mg PO HS 04/30/17 09/18/18 History Apixaban [Eliquis] 2.5 mg PO BID #60 tablet 02/06/18 09/18/18 Rx Calcium Acetate [PhosLo] 667 mg PO AC-TID 05/31/18 09/18/18 History Furosemide [Lasix] 80 mg PO BID 06/24/18 09/18/18 History Amiodarone [Cordarone] 100 mg PO DAILY #60 tab 08/23/18 09/18/18 Rx Metoprolol Tartrate [Lopressor] 25 mg PO BID tab 08/23/18 09/18/18 Rx Zolpidem [Ambien] 5 mg PO HS #3 tab 08/23/18 09/18/18 Rx amLODIPine [Norvasc] 10 mg PO DAILY 09/08/18 09/18/18 History hydrALAZINE HCL [Apresoline] 100 mg PO TID 09/08/18 09/18/18 History Albuterol Inhaler [Ventolin Hfa 2 puff INHALATION RT-Q4H PRN #1 09/11/18 09/18/18 Rx Inhaler] puff Ipratropium-Albuterol Nebulize 3 ml INHALATION RT-TID 09/18/18 09/18/18 History [Duoneb 0.5 mg-3 mg/3 ml Soln] Allergies Allergy/AdvReac Type Severity Reaction Status Date / Time No Known Allergies Allergy Verified 09/18/18 07:41 Physical Exam Vitals: Vital Signs Temp Pulse Pulse Resp BP Pulse Ox 09/20/18 08:41 88 09/20/18 08:31 92 09/20/18 04:15 93 L 09/20/18 04:00 97.5 F L 92 18 153/73 88 L 09/20/18 00:00 79 18 96 09/19/18 23:58 97.8 F 79 12 149/77 09/19/18 23:56 82 09/19/18 23:45 80 09/19/18 22:17 97.6 F 75 20 164/82 09/19/18 20:51 81 09/19/18 20:41 80 09/19/18 20:00 97.9 F 85 18 148/68 96 09/19/18 16:24 90 09/19/18 16:11 92 09/19/18 16:00 97.5 F L 86 18 138/74 96 09/19/18 12:36 96 09/19/18 12:26 96 09/19/18 12:00 97.9 F 84 20 163/77 98 09/19/18 09:38 95 20 97 Intake and Output 09/19/18 09/20/18 09/20/18 22:59 06:59 14:59 Intake Total 120 300 240 Output Total 3300 300 Balance 120 -3000 -60 Intake: Oral 120 240 Hemodialysis 300 Output: Urine 300 Hemodialysis 3300 Other: Voiding Method Toilet Toilet # Voids 1 0 Weight 50.7 kg PHYSICAL EXAMINATION: GENERAL: 72-year-old female in no acute distress at the time of my examination HEENT: Head is atraumatic, normocephalic. Pupils equal, round. Sclera anicteric. Conjunctiva are clear. Mucous membranes of the mouth are moist. Neck is supple. There is elevated jugular venous pressure. No carotid bruit is heard. HEART EXAMINATION: Heart S1, S2 normal. No murmur or gallop heard. CHEST EXAMINATION: His reveal scattered coarse rhonchi throughout with diminished air entry to the bases. ABDOMEN: Soft, nontender. Bowel sounds are heard. No organomegaly noted. EXTREMITIES: 2+ peripheral pulses with no evidence of peripheral edema and no calf tenderness noted. NEUROLOGIC patient is awake, alert and oriented 3 . . Results 09/19/18 05:52 09/19/18 05:52 Cardiac Enzymes 09/19/18 09/20/18 Range/Units 22:48 05:17 Troponin I 0.042 H* 0.043 H* (0.000-0.034) ng/mL Current Medications Generic Name Dose Route Start Last Admin Trade Name Rubénq PRN Reason Stop Dose Admin Albuterol Sulfate 2.5 mg 09/19/18 10:00 09/20/18 08:31 Ventolin Nebulized INHALATION Not Given RT-Q4H SIMON Albuterol/Ipratropium 3 ml 09/18/18 08:00 09/20/18 08:31 Duoneb 0.5 Mg-3 Mg/3 Ml Soln INHALATION 3 ml RT-TID SIMON Administration Amiodarone HCl 100 mg 09/18/18 09:00 09/19/18 09:07 Cordarone PO 100 mg DAILY SIMON Administration Amlodipine Besylate 10 mg 09/18/18 09:00 09/19/18 09:06 Norvasc PO 10 mg DAILY SIMON Administration Apixaban 2.5 mg 09/18/18 09:00 09/19/18 20:11 Eliquis PO 2.5 mg BID SIMON Administration Calcium Acetate 667 mg 09/18/18 07:30 09/20/18 06:24 Phoslo PO 667 mg AC-TID SIMON Administration Hydralazine HCl 100 mg 09/18/18 06:00 09/20/18 06:24 Apresoline PO 100 mg TID@0600,1400,2200 SIMON Administration Insulin Aspart 0 unit 09/19/18 17:30 09/20/18 06:24 Novolog SQ 100 unit ACHS SIMON Administration Protocol Methylprednisolone Sodium Succinate 40 mg 09/19/18 12:00 09/20/18 06:28 Solu-Medrol IV 40 mg Q6HR SIMON Administration Metoprolol Tartrate 25 mg 09/18/18 09:00 09/19/18 20:11 Lopressor PO 25 mg BID SIMON Administration Multivit/Ca Carb/B Cmplx/FA/Prenat 1 each 09/19/18 09:00 09/19/18 09:07 Nephrocaps PO 1 each DAILY SIMON Administration Sertraline HCl 50 mg 09/18/18 21:00 09/19/18 20:11 Zoloft PO 50 mg HS SIMON Administration Intake and Output 09/19/18 09/20/18 09/20/18 22:59 06:59 14:59 Intake Total 120 300 240 Output Total 3300 300 Balance 120 -3000 -60 Intake: Oral 120 240 Hemodialysis 300 Output: Urine 300 Hemodialysis 3300 Other: Voiding Method Toilet Toilet # Voids 1 0 Weight 50.7 kg 09/19/18 05:52 09/19/18 05:52 EKG Interpretations (text) EKG shows a normal sinus rhythm with ST-T wave changes noted in the lateral leads Assessment and Plan Plan: Assessment and plan #1 diastolic congestive heart failure acute on chronic, likely secondary to volume overload #2 end-stage renal disease on hemodialysis #3 hypertension #4 chronic anemia #5 paroxysmal atrial fibrillation #6 COPD #7 history of prior TIA #8 abnormal troponins, not consistent with acute coronary syndrome with no significant rise and fall pattern, likely secondary to end-stage renal disease. Plan We will repeat an echocardiogram with Doppler study, her most recent echo was performed in May and revealed a normal left ventricular systolic function. Patient will also have hemodialysis as per the outpatient schedule. Further recommendations to follow. DNP note has been reviewed, I agree with a documented findings and plan of care. Patient was seen and examined.
[2018-09-20 11:13] LABS: Iron Saturation 22.02 (12.00-45.00)
[2018-09-20 11:25] LABS: Glucose,Whole Blood 120 mg/dL (75-99)
--- NOTE | 2018-09-20 12:13 | ECHOF ---
Referral Reason:fluid overload MEASUREMENTS -------- HEIGHT: 162.6 cm WEIGHT: 54.4 kg BP: 153/73 IVSd: 1.4 cm (0.6 - 1.1) LVIDd: 4.8 cm (3.9 - 5.3) LVPWd: 1.3 cm (0.6 - 1.1) IVSs: 2.0 cm LVIDs: 3.4 cm LVPWs: 1.6 cm LA Diam: 4.8 cm (2.7 - 3.8) RVIDd: 2.7 cm (< 3.3) LAESV Index (A-L): 43.17 ml/m Ao Diam: 2.8 cm (2.0 - 3.7) LA Diam: 4.9 cm (2.7 - 3.8) AV Cusp: 1.4 cm (1.5 - 2.6) EPSS: 0.5 cm MV E Yaw: 1.30 m/s MV DecT: 152 ms MV A Yaw: 1.01 m/s MV E/A Ratio: 1.29 RAP: 5.00 mmHg RVSP: 51.81 mmHg MV EF SLOPE: 56.42 mm/s (70 - 150) MV EXCURSION: 17.35 mm (> 18.000) FINDINGS -------- Sinus rhythm. This was a technically good study. The left ventricular size is normal. There is moderate concentric left ventricular hypertrophy. O verall left ventricular systolic function is normal with, an EF between 55 - 60 %. The right ventricle is normal in size. The left atrium is markedly dilated. LA is severely dilated >40 ml/m2 The right atrial size is normal. Interatrial and interventricular septum intact. There is mild aortic valve sclerosis. There is no evidence of aortic regurgitation. Mild mitral annular calcification present. Mild mitral regurgitation is present. Gxkk-[id number] tricuspid regurgitation present. There is moderate pulmonary hypertension. The r ight ventricular systolic pressure, as measured by Doppler, is 51.81mmHg. There is no pulmonic regurgitation present. The aortic root size is normal. Normal inferior vena cava with normal inspiratory collapse consistent with estimated right atrial pre ssure of 5 mmHg. There is no pericardial effusion. CONCLUSIONS -------- 1. The left ventricular size is normal. 2. There is moderate concentric left ventricular hypertrophy. 3. Overall left ventricular systolic function is normal with, an EF between 55 - 60 %. 4. The right ventricle is normal in size. 5. The left atrium is markedly dilated. 6. LA is severely dilated >40 ml/m2 7. The right atrial size is normal. 8. Interatrial and interventricular septum intact. 9. There is mild aortic valve sclerosis. 10. Mild mitral annular calcification present. 11. Mild mitral regurgitation is present. 12. Fgwl-mc-dhoghjsw tricuspid regurgitation present. 13. There is moderate pulmonary hypertension. 14. The right ventricular systolic pressure, as measured by Doppler, is 51.81mmHg. 15. There is no pulmonic regurgitation present. 16. The aortic root size is normal. 17. Normal inferior vena cava with normal inspiratory collapse consistent with estimated right atrial pressure of 5 mmHg. 18. There is no pericardial effusion. SATELLITE SPECIALIST: Farhana Mcclelland RDCS
[2018-09-20] MEDS ORDERED: LISINOPRIL 20 MG TAB PO SCH (14:30)
[2018-09-20 16:36] LABS: Glucose,Whole Blood 153 mg/dL (75-99)
[2018-09-20] MEDS: LISINOPRIL 20 MG TAB PO SCH (16:43)
--- NOTE | 2018-09-20 16:59 | PN ---
PROGRESS NOTE Patient is seen for followup for end-stage renal disease. Patient was readmitted to the hospital with shortness of breath and fluid overload. She was dialyzed last night as well and the patient will be dialyzed again today. She does have underlying severe bilateral renal artery stenosis, and medications have been changed. However, it appears that patient's medications keep getting altered. She should be on ZO inhibitors and angiotensin receptor blockers, given significantly hyperactive when in the angiotensin system. When patient was on the ZO inhibitors, her blood pressure was much better controlled. In fact, she was on the lower side. This had also prevented recurrent hospitalization for fluid overload, as she develops pulmonary edema with the underlying severe bilateral renal artery stenosis. Patient's medications will be adjusted again. I will discontinue the hydralazine and the Norvasc. Patient states she is feeling better. However, she is still short of breath. We will arrange for dialysis, mainly ultrafiltration, today as well as in a.m. On examination, blood pressure this morning was 135/68, heart rate 88 per minute. She is afebrile. EXAMINATION OF THE HEART: S1 and S2. EXAMINATION OF LUNGS: Bilateral breath sounds are heard. ABDOMEN: Soft, non-tender. Examination of lower extremities shows no significant edema. [employer] exam is grossly intact. Labs show sodium 128, potassium 4.5, BUN 45, serum creatinine 3.49, hemoglobin 9.5. ASSESSMENT: 1. End-stage renal disease, maintained on hemodialysis on a Thursday, , Thursday schedule, being transitioned to peritoneal dialysis. 2. Severe bilateral renal artery stenosis with recurrent pulmonary edema, not a candidate for surgical intervention, but patient is very well controlled when she is maintained on angiotensin receptor blockers and/or ZO inhibitors. We have been able to decrease her repeated hospitalizations as well. However, I do see that her medications are different currently. I will resume the ZO inhibitors and, depending on her blood pressure, I will add angiotensin receptor blockers as well, as her blood pressure usually dips down quite low when she is maintained on ZO and ARBS alone. 3. Fluid overload, recurrent pulmonary edema secondary to bilateral severe renal artery stenosis. Patient will be dialyzed today and then again tomorrow. She will continue with the training for PD as outpatient. 4. Hypertension secondary to underlying bilateral renal artery stenosis. Changed medications to ZO and/or ARBS. 5. Chronic kidney disease mineral bone disorder. PLAN: Discontinue Norvasc. Decrease hydralazine. Add lisinopril and, depending on the blood pressure, I will add angiotensin receptor blockers as well. We will arrange for hemodialysis, mainly ultrafiltration today and then again in a.m., as it is her regular day tomorrow. Hopefully patient can be discharged tomorrow. MMVINCENT / IJN: [id number] /
[2018-09-20 20:29] LABS: Glucose,Whole Blood 173 mg/dL (75-99)
[2018-09-20] MEDS: SERTRALINE 50 MG TAB PO SCH (21:29)
[2018-09-20] MEDS: predniSONE 20 MG TAB PO SCH (21:35)
[2018-09-21] MEDS: ALBUTEROL NEBULIZED 2.5 MG/3 ML INHALATION SCH ×6 (01:16→18:43)
--- NOTE | 2018-09-21 03:54 | PN ---
PROGRESS NOTE DATE OF SERVICE: September 20, 2018. PRESENTING COMPLAINT: Tired. INTERVAL HISTORY: The patient initially presented with pulmonary edema and then went into COPD exacerbation. Breathing somewhat better today. Also getting ultrafiltration today. Patient due for another hemodialysis tomorrow. Did speak to Dr. Vargas this morning. She thinks patient's bilateral renal artery stenosis may be contributing to the whole presentation of recurrent pulmonary edema. Of course patient is known to have significant diastolic dysfunction. REVIEW OF SYSTEMS: Done for constitutional, cardiovascular, GI, pulmonary; relevant findings as above. The patient is eating well. CURRENT MEDICATIONS: Reviewed that include IV Solu-Medrol. PHYSICAL EXAMINATION: VITAL SIGNS: Temperature 98, pulse 60, respiratory 18, blood pressure 143/54, pulse ox 97% on room air. GENERAL APPEARANCE: Sitting up, comfortable. EYES: Pupils equal. Conjunctivae normal. NECK: JVD unable to assess. Mass not palpable. RESPIRATORY: Effort increased. LUNGS: Decreased breath sounds. Less wheezing. CARDIOVASCULAR: First and second sounds normal. No edema. ABDOMEN: Soft, nontender. Liver and spleen not palpable. Abdominal PD catheter in place. PSYCHIATRY: Alert and oriented times three. Mood and affect normal. INVESTIGATIONS: Accu-Cheks are noted. Troponins are noted. ASSESSMENT: 1. Acute pulmonary edema, responded well to hemodialysis. 2. Acute chronic obstructive pulmonary disease exacerbation, improving. 3. End-stage kidney disease on hemodialysis Thursday, , and Thursday. 4. Hypertensive heart disease. 5. Paroxysmal atrial fibrillation currently in sinus rhythm. 6. Chronic rheumatoid arthritis. 7. Hyperlipidemia. 8. Anxiety, and the patient otherwise specified. 9. 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 10.Anemia of chronic kidney disease. 11.Acute on chronic congestive heart failure exacerbation from diastolic dysfunction. Ejection fraction 55-60 percent. 12.Secondary pulmonary hypertension. 13.Bilateral chronic renal artery stenosis. PLAN: Patient was switched to oral prednisone. The patient is due for hemodialysis again tomorrow. Follow. MMODL / IJN: [id number] /
[2018-09-21 06:14] LABS: Glucose,Whole Blood 128 mg/dL (75-99)
[2018-09-21] MEDS: INSULIN ASPART (NovoLOG) 100 UNIT/ML VIAL SQ SCH ×4 (06:16→20:41)
[2018-09-21] MEDS: CALCIUM ACETATE 667 MG CAP PO SCH ×3 (06:18→19:57)
[2018-09-21] MEDS: IPRATROPIUM-ALBUTEROL 3 ML NEB INHALATION SCH ×3 (07:06→19:57)
[2018-09-21] MEDS: predniSONE 20 MG TAB PO SCH (09:14)
[2018-09-21] MEDS: LISINOPRIL 20 MG TAB PO SCH (09:15)
[2018-09-21] MEDS: APIXABAN 2.5 MG TABLET PO SCH ×2 (09:15→20:41)
[2018-09-21] MEDS: AMIODARONE 100 MG TAB PO SCH (09:15)
[2018-09-21] MEDS: METOPROLOL TARTRATE 25 MG TAB PO SCH ×2 (09:15→20:41)
[2018-09-21] MEDS: FOLIC ACID-VIT B COMPLEX-VIT C 1 CAP PO SCH (09:15)
[2018-09-21 11:30] LABS: Glucose,Whole Blood 101 mg/dL (75-99)
--- NOTE | 2018-09-21 12:44 | P.PN ---
Subjective Progress Note Date: 09/21/18 This is a 72-year-old female with history of end-stage renal disease, started dialysis approximately 2 months ago, she follows with Dr. Wilde. She also has a known history of paroxysmal atrial fibrillation and follows with Dr. Solis in the office. Chronic diastolic congestive heart failure, hypertension, hyperlipidemia, history of prior TIA, COPD. She presents to the hospital on this occasion with symptoms of shortness of breath. He was just recently discharged from the hospital on September 11 after being admitted with congestive cardiac failure. According to the patient, she has not missed any of her dialysis treatments. He states that she barely makes any urine. Her EKG on presentation here showed a normal sinus rhythm with ST-T wave changes noted in the lateral leads. Chest x-ray showed COPD with congestive cardiac failure and a left-sided pleural effusion. Blood pressure 134/60 heart rate in the 80s to 90s. Afebrile. Blood cell count 11.9, hemoglobin 9.5, platelet count 271. Sodium 128, potassium 4.5, BUN 45 and creatinine 3.4. Troponins 0.05, 0.04, 0.04. BNP level 75,100. Patient did have an echocardiogram with Doppler study performed in May of this year which revealed an ejection fraction of 55-60%. At the time of my examination this morning, patient still feels quite short of breath., Complaints of feeling weak. 09/21/2018 Patient was seen and examined this morning continues to feel mildly weak but breathing overall is significantly improved. Labs from today are pending. Blood pressure 138/60 with a heart rate in the 70s, 95% on room air. Objective - Vital Signs Vital signs: Vital Signs Temp 97.4 F L 09/21/18 11:15 Pulse 69 09/21/18 11:15 Resp 18 09/21/18 11:15 BP 157/80 09/21/18 11:15 Pulse Ox 95 09/21/18 08:00 Intake & Output 09/20/18 09/21/18 09/21/18 18:59 06:59 18:59 Intake Total 720 240 Output Total 3300 200 Balance -2580 -200 240 Weight 50.5 kg Intake: IV 0 0.9 @ 20 0 Oral 720 240 Output: Urine 300 200 Hemodialysis 3000 Other: Voiding Method Toilet Toilet Toilet # Voids 1 - Exam PHYSICAL EXAMINATION: GENERAL: 72-year-old female in no acute distress at the time of my examination HEENT: Head is atraumatic, normocephalic. Pupils equal, round. Sclera anicteric. Conjunctiva are clear. Mucous membranes of the mouth are moist. Neck is supple. There is elevated jugular venous pressure. No carotid bruit is heard. HEART EXAMINATION: Heart S1, S2 normal. No murmur or gallop heard. CHEST EXAMINATION: His reveal scattered coarse rhonchi throughout with diminished air entry to the bases. ABDOMEN: Soft, nontender. Bowel sounds are heard. No organomegaly noted. EXTREMITIES: 2+ peripheral pulses with no evidence of peripheral edema and no calf tenderness noted. NEUROLOGIC patient is awake, alert and oriented 3 . - Labs CBC & Chem 7: 09/19/18 05:52 09/19/18 05:52 Labs: Abnormal Lab Results - Last 24 Hours (Table) 09/20/18 09/20/18 09/21/18 Range/Units 16:33 20:27 06:12 POC Glucose (mg/dL) 153 H 173 H 128 H (75-99) mg/dL 09/21/18 Range/Units 11:28 POC Glucose (mg/dL) 101 H (75-99) mg/dL Assessment and Plan Plan: Assessment and plan #1 diastolic congestive heart failure acute on chronic, likely secondary to volume overload #2 end-stage renal disease on hemodialysis #3 hypertension #4 chronic anemia #5 paroxysmal atrial fibrillation #6 COPD #7 history of prior TIA #8 abnormal troponins, not consistent with acute coronary syndrome with no sig nificant rise and fall pattern, likely secondary to end-stage renal disease. Plan Echo cardiac gram with Doppler study was performed which revealed a normal left ventricular systolic function with mild to moderate tricuspid regurg. From cardiology's perspective, patient may be able to be discharged once cleared by primary, we'll make a follow-up appointment in the office post discharge. DNP note has been reviewed, I agree with a documented findings and plan of care. Patient was seen and examined.
--- NOTE | 2018-09-21 14:00 | PN ---
PROGRESS NOTE DATE OF SERVICE: 09/21/2018 PRESENTING COMPLAINT: Tired. INTERVAL HISTORY: Patient presented with pulmonary edema and went into COPD exacerbation. Breathing is stable, getting hemodialyzed today. Patient also has bilateral renal artery stenosis. Medications were adjusted by Dr. Vargas. The patient is tolerating a diet well. REVIEW OF SYSTEMS: Done for constitutional, cardiovascular, GI, pulmonary; relevant findings as above. CURRENT MEDICATIONS: Reviewed that includes Zestril 20 mg a day. PHYSICAL EXAMINATION: Temperature 97.4, pulse 69, respirations 18, blood pressure 157/80, pulse ox 95% on room air. GENERAL APPEARANCE: Sitting up comfortable. EYES: Pupils equal, conjunctivae normal. NECK: JVD not raised. Mass not palpable. RESPIRATORY: Effort normal. LUNGS: Decreased breath sounds. CARDIOVASCULAR: First and second sounds are normal. No edema. ABDOMEN: Soft, nontender. Liver and spleen not palpable. Abdomen with peritoneal catheter in place. PSYCHIATRY: Alert and oriented x3. Mood and affect normal. INVESTIGATIONS: Accu-Cheks are noted. ASSESSMENT: 1. Acute pulmonary edema, responded well to hemodialysis. 2. Acute chronic obstructive pulmonary disease exacerbation, improving. 3. End-stage kidney disease on hemodialysis Thursday, , and Thursday. 4. Hypertensive heart disease. 5. Paroxysmal atrial fibrillation, currently in sinus rhythm. 6. Chronic rheumatoid arthritis. 7. Hyperlipidemia. 8. Anxiety, not otherwise specified. 9. 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 10.Anemia of chronic kidney disease. 11.Acute on chronic congestive heart failure exacerbation from diastolic dysfunction. Ejection fraction 55%-60%. 12.Secondary pulmonary hypertension. 13.Bilateral chronic renal artery stenosis. PLAN: Patient doing much better. Discussed with Dr. aVrgas. The patient is doing much better. If blood pressure goes up, then ARB should be added. Patient should be able to go home tomorrow. MMODL / IJN: [id number] /
[2018-09-21 17:01] LABS: Glucose,Whole Blood 195 mg/dL (75-99)
[2018-09-21 17:44] LABS: Calcium 9.3 mg/dL (8.4-10.2); Potassium 4.4 mmol/L (3.5-5.1)
--- NOTE | 2018-09-21 19:52 | PN ---
PROGRESS NOTE Patient is seen this morning for followup for end-stage renal disease. She was in the shower this morning. The patient states she is feeling better. She denied any significant chest pains. Her shortness of breath was improved as well. Patient is scheduled for hemodialysis today and the plan was for her to be discharged home after dialysis if she tolerates it well. Medications were adjusted yesterday. Hydralazine and Norvasc was discontinued. Patient has been restarted on ZO inhibitors. Her blood pressure seems to be much better now. On examination this morning, patient is comfortable. She is awake and alert, not in any acute distress. Blood pressure 139/65, heart rate about 70 per minute. She is afebrile. Patient appears euvolemic, with no evidence of edema in her lower extremities. [employer] exam is grossly intact. Labs show potassium 4.4 this morning. Sodium was 137, creatinine 2.2. ASSESSMENT: 1. End-stage renal disease, on hemodialysis on a Thursday, , Thursday schedule. The patient will be dialyzed today and she can be discharged post treatment if she tolerates her treatment well. 2. Volume overload, currently improved. 3. Recurrent pulmonary edema secondary to renal artery stenosis, currently stable. Patient needs to be maintained on renin-angiotensin system blockers. She is currently on lisinopril, which she seems to be tolerating well. 4. Hypertension secondary to underlying bilateral renal artery stenosis. 5. Chronic kidney disease mineral bone disorder. PLAN: Continue with ZO inhibitors. Discharge the patient today after dialysis if she is stable. MMODL / IJN: [id number] /
[2018-09-21 20:36] LABS: Glucose,Whole Blood 176 mg/dL (75-99)
[2018-09-21] MEDS: SERTRALINE 50 MG TAB PO SCH (20:41)
[2018-09-21 21:18] LABS: Glucose,Whole Blood 99 mg/dL (75-99)
[2018-09-21 21:41] VITALS: RESP 20
[2018-09-22] MEDS: ALBUTEROL NEBULIZED 2.5 MG/3 ML INHALATION SCH ×4 (00:51→12:07)
[2018-09-22 06:34] VITALS: TEMP 97.7
[2018-09-22 06:49] LABS: Glucose,Whole Blood 78 mg/dL (75-99)
[2018-09-22] MEDS: INSULIN ASPART (NovoLOG) 100 UNIT/ML VIAL SQ SCH ×2 (06:50→11:45)
[2018-09-22] MEDS: CALCIUM ACETATE 667 MG CAP PO SCH (06:53)
[2018-09-22 07:20] LABS: Potassium 4.2 mmol/L (3.5-5.1)
[2018-09-22] MEDS: IPRATROPIUM-ALBUTEROL 3 ML NEB INHALATION SCH ×2 (08:45→11:59)
[2018-09-22] MEDS: METOPROLOL TARTRATE 25 MG TAB PO SCH (09:28)
[2018-09-22] MEDS: APIXABAN 2.5 MG TABLET PO SCH (09:29)
[2018-09-22] MEDS: FOLIC ACID-VIT B COMPLEX-VIT C 1 CAP PO SCH (09:29)
[2018-09-22] MEDS: predniSONE 20 MG TAB PO SCH (09:29)
[2018-09-22] MEDS: LISINOPRIL 20 MG TAB PO SCH (09:29)
[2018-09-22] MEDS: AMIODARONE 100 MG TAB PO SCH (09:29)
[2018-09-22 11:23] LABS: Glucose,Whole Blood 86 mg/dL (75-99)
[2018-09-22 11:44] VITALS: BP 115/67
--- NOTE | 2018-09-22 12:44 | P.PN ---
Subjective Progress Note Date: 09/22/18 This is a 72-year-old female with history of end-stage renal disease, started dialysis approximately 2 months ago, she follows with Dr. Wilde. She also has a known history of paroxysmal atrial fibrillation and follows with Dr. Solis in the office. Chronic diastolic congestive heart failure, hypertension, hyperlipidemia, history of prior TIA, COPD. She presents to the hospital on this occasion with symptoms of shortness of breath. He was just recently discharged from the hospital on September 11 after being admitted with congestive cardiac failure. According to the patient, she has not missed any of her dialysis treatments. He states that she barely makes any urine. Her EKG on presentation here showed a normal sinus rhythm with ST-T wave changes noted in the lateral leads. Chest x-ray showed COPD with congestive cardiac failure and a left-sided pleural effusion. Blood pressure 134/60 heart rate in the 80s to 90s. Afebrile. Blood cell count 11.9, hemoglobin 9.5, platelet count 271. Sodium 128, potassium 4.5, BUN 45 and creatinine 3.4. Troponins 0.05, 0.04, 0.04. BNP level 75,100. Patient did have an echocardiogram with Doppler study performed in May of this year which revealed an ejection fraction of 55-60%. At the time of my examination this morning, patient still feels quite short of breath., Complaints of feeling weak. 09/21/2018 Patient was seen and examined this morning continues to feel mildly weak but breathing overall is significantly improved. Labs from today are pending. Blood pressure 138/60 with a heart rate in the 70s, 95% on room air. 09/22/2018 Patient was seen and examined this morning, anticipating discharge home today. Objective - Vital Signs Vital signs: Vital Signs Temp 97.7 F 09/22/18 08:00 Pulse 72 09/22/18 12:08 Resp 20 09/22/18 11:59 BP 115/67 09/22/18 08:00 Pulse Ox 94 L 09/22/18 08:46 Intake & Output 09/21/18 09/22/18 09/22/18 18:59 06:59 18:59 Intake Total 600 80 180 Output Total 3000 Balance -2400 80 180 Weight 49.7 kg Intake: IV 0 0.9 @ 20 0 Oral 600 80 180 Output: Hemodialysis 3000 Other: Voiding Method Toilet Toilet Toilet - Exam PHYSICAL EXAMINATION: GENERAL: 72-year-old female in no acute distress at the time of my examination HEENT: Head is atraumatic, normocephalic. Pupils equal, round. Sclera ani cteric. Conjunctiva are clear. Mucous membranes of the mouth are moist. Neck is supple. There is elevated jugular venous pressure. No carotid bruit is heard. HEART EXAMINATION: Heart S1, S2 normal. No murmur or gallop heard. CHEST EXAMINATION: His reveal scattered coarse rhonchi throughout with diminished air entry to the bases. ABDOMEN: Soft, nontender. Bowel sounds are heard. No organomegaly noted. EXTREMITIES: 2+ peripheral pulses with no evidence of peripheral edema and no calf tenderness noted. NEUROLOGIC patient is awake, alert and oriented 3 . - Labs CBC & Chem 7: 09/19/18 05:52 09/22/18 06:42 Labs: Abnormal Lab Results - Last 24 Hours (Table) 09/21/18 09/21/18 09/21/18 Range/Units 16:55 16:58 20:29 Sodium (137-145) mmol/L Chloride (98-107) mmol/L BUN 28 H (7-17) mg/dL Creatinine 2.21 H (0.52-1.04) mg/dL Glucose 193 H (74-99) mg/dL POC Glucose (mg/dL) 195 H 176 H (75-99) mg/dL 09/22/18 Range/Units 06:42 Sodium 134 L (137-145) mmol/L Chloride 97 L (98-107) mmol/L BUN 56 H (7-17) mg/dL Creatinine 3.55 H (0.52-1.04) mg/dL Glucose (74-99) mg/dL POC Glucose (mg/dL) (75-99) mg/dL Assessment and Plan Plan: Assessment and plan #1 diastolic congestive heart failure acute on chronic, likely secondary to volume overload #2 end-stage renal disease on hemodialysis #3 hypertension #4 chronic anemia #5 paroxysmal atrial fibrillation #6 COPD #7 history of prior TIA #8 abnormal troponins, not consistent with acute coronary syndrome with no significant rise and fall pattern, likely secondary to end-stage renal disease. Plan Echo cardiac gram with Doppler study was performed which revealed a normal left ventricular systolic function with mild to moderate tricuspid regurg. From cardiology's perspective, patient may be able to be discharged once cleared by primary, we'll make a follow-up appointment in the office post discharge. We will follow this patient along with you now on an as-needed basis only, please don't hesitate to call with any question. DNP note has been reviewed, I agree with a documented findings and plan of care. Patient was seen and examined.
[2018-09-22 12:54] VITALS: PULSE 77
[2018-09-22 13:51] VITALS: BMI 18.8
--- NOTE | 2018-09-22 18:31 | PN ---
PROGRESS NOTE Patient is seen for followup for end-stage renal disease. Currently she is maintained on lisinopril. Her blood pressure is much better controlled. She denies any shortness of breath. The patient will have her regular hemodialysis treatment tomorrow. On examination this morning, blood pressure was 115/67, heart rate 80 per minute. She is afebrile. EXAMINATION OF THE HEART: S1 and S2. EXAMINATION OF LUNGS: Bilateral breath sounds are heard. ABDOMEN: Soft, non-tender. Examination of lower extremities shows no evidence of edema. Labs show sodium 134, potassium 4.2, BUN 56, serum creatinine 3.5. ASSESSMENT: 1. End-stage renal disease, on hemodialysis on a Thursday, , Thursday schedule. Patient will be dialyzed tomorrow as outpatient. 2. Fluid overload, currently improved. 3. Hypertension secondary to severe bilateral renal artery stenosis, improved with use of ZO inhibitors. 4. Recurrent pulmonary edema associated with severe bilateral renal artery stenosis. PLAN: Continue with current dose of lisinopril. Patient can be discharged. She will follow up as outpatient for hemodialysis tomorrow. MMODL / IJN: [id number] /
--- NOTE | 2018-09-23 09:03 | DS ---
DISCHARGE SUMMARY DATE OF ADMISSION: 09/18/2018 DATE OF DISCHARGE: 09/22/2018 FINAL DIAGNOSES: 1. Acute pulmonary edema from acute on chronic congestive heart failure exacerbation from diastolic dysfunction, ejection fraction 55% to 60%. 2. Acute chronic obstructive pulmonary disease exacerbation in an ex-smoker. 3. End-stage kidney disease on hemodialysis Thursday, , and Thursday. 4. Hypertensive heart disease. 5. Paroxysmal atrial fibrillation, currently sinus rhythm. 6. Chronic rheumatoid arthritis. 7. Hyperlipidemia. 8. Anxiety, not otherwise specified. 9. 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 10.Anemia of chronic kidney disease. 11.Secondary pulmonary hypertension. 12.Bilateral chronic renal artery stenosis. HOSPITAL COURSE: This patient yet again presented with shortness of breath, felt to be pulmonary edema from CHF exacerbation. Also had COPD exacerbation. The patient did undergo repeated hemodialysis per Dr. Vargas. Patient to use ZO inhibitor and if her blood pressure goes up to add an ARB. In the meantime, patient's peritoneal dialysis catheter is maturing. The patient doing better this morning. On examination, awake. LUNGS: Decreased breath sounds. CONSULTATIONS: [facility] from Cardiology and Dr. Vargas from Nephrology. DISCHARGE MEDICATIONS: 1. Zoloft 50 mg q.h.s. 2. Eliquis 2.5 mg p.o. b.i.d. 3. PhosLo 667 mg p.o. a.c. t.i.d. 4. Cordarone 100 mg daily. 5. Lopressor 25 mg b.i.d. 6. Ambien 5 mg q.h.s. 7. Ventolin 2 puffs q.4 p.r.n. 8. DuoNeb t.i.d. 9. Nephrocaps 1 capsule p.o. daily. 10.Zestril 20 mg p.o. daily. Discontinued medications include: Lasix, hydralazine, amlodipine. Follow up with Dr. Desai in 3 days. Follow up with Dr. Wilde in a week. Follow up with Dr. Alicia Curry on 10/08/2018. MMODL / IJN: [id number] /
== END 2018-09-22 14:35 | disposition home or self-care (01) | DRG 291 ==
LOC: EC 03:33 → 3SCARD 05:57
PROVIDERS: ADMIT Hospitalist; ATTEND Hospitalist
PROC: 5A1D70Z Performance of Urinary Filtration, Intermittent, Less than 6 Hours Per Day (ICD-10-PCS; principal; 2018-09-19)
DX: I13.2 Hypertensive heart and chronic kidney disease with heart failure and with stage 5 chronic kidney disease, or end stage renal disease (principal); N18.6 End stage renal disease; I50.33 Acute on chronic diastolic (congestive) heart failure; E87.1 Hypo-osmolality and hyponatremia; J44.1 Chronic obstructive pulmonary disease with (acute) exacerbation; I48.0 Paroxysmal atrial fibrillation; D63.1 Anemia in chronic kidney disease; E78.5 Hyperlipidemia, unspecified; F32.9 Major depressive disorder, single episode, unspecified; F41.9 Anxiety disorder, unspecified; I27.29 Other secondary pulmonary hypertension; M06.9 Rheumatoid arthritis, unspecified; Z96.7 Presence of other bone and tendon implants; E83.89 Other disorders of mineral metabolism; M19.90 Unspecified osteoarthritis, unspecified site; R77.8 Other specified abnormalities of plasma proteins; I70.1 Atherosclerosis of renal artery; Z99.2 Dependence on renal dialysis; Z79.899 Other long term (current) drug therapy; Z79.01 Long term (current) use of anticoagulants; Z86.73 Personal history of transient ischemic attack (TIA), and cerebral infarction without residual deficits; Z87.01 Personal history of pneumonia (recurrent); Z90.89 Acquired absence of other organs; Z87.891 Personal history of nicotine dependence; Z82.49 Family history of ischemic heart disease and other diseases of the circulatory system; Z98.818 Other dental procedure status
CPT/HCPCS: 36415; 71045; 71046; 80048; 80053; 82728; 83540; 83550; 83880; 84100; 84484; 85025; 85610; 85730; 86706; 87340; 90935; 93005; 93306; 94640; 94760; 96365; 96366; 96375; 99291

== ENCOUNTER 2018-12-28 03:49 | Inpatient (IN) | payer MEDICARE, BC ==
[2018-12-28] MEDS ORDERED: DILTIAZEM DRIP BOLUS FROM BAG 1 MG SOLN IV ONE ×4 (04:03→05:11)
--- NOTE | 2018-12-28 04:08 | ED ---
SOB HPI - General Chief Complaint: Shortness of Breath Stated Complaint: ANGELICA Time Seen by Provider: 12/28/18 03:51 Source: EMS Mode of arrival: EMS Limitations: physical limitation (Dyspnea) - History of Present Illness Initial Comments: This patient is a 73-year-old woman who presents to be evaluated for severe dyspnea. She states she had been trying sleep and then was awakened by being short of breath. This progressed to the point that she had to activate EMS. The patient is moderately dyspneic on arrival and history is somewhat limited as she can only use short phrases. Patient is denying chest pain. No nausea or vomiting. No fever or chills. No productive cough. When EMS arrived they found her to be in distress and started albuterol treatment. MD Complaint: shortness of breath Onset/Timin -: hour(s) Consistency: constant Improves With: oxygen, upright position Worsens With: lying flat Associated Symptoms: denies other symptoms Treatments Prior to Arrival: oxygen, bronchodilator - Related Data Home Oxygen Therapy: No Home Medications Medication Instructions Recorded Confirmed Sertraline HCl [Zoloft] 50 mg PO HS 04/30/17 09/18/18 Calcium Acetate [PhosLo] 667 mg PO AC-TID 05/31/18 09/18/18 Ipratropium-Albuterol Nebulize 3 ml INHALATION RT-TID 09/18/18 09/18/18 [Duoneb 0.5 mg-3 mg/3 ml Soln] Previous Rx's Medication Instructions Recorded Apixaban [Eliquis] 2.5 mg PO BID #60 tablet 02/06/18 Amiodarone [Cordarone] 100 mg PO DAILY #60 tab 08/23/18 Metoprolol Tartrate [Lopressor] 25 mg PO BID tab 08/23/18 Zolpidem [Ambien] 5 mg PO HS #3 tab 08/23/18 Albuterol Inhaler [Ventolin Hfa 2 puff INHALATION RT-Q4H PRN #1 09/11/18 Inhaler] puff Folic Acid-Vit B Complex-Vit C 1 each PO DAILY #30 cap 09/22/18 [Nephrocaps] Lisinopril [Zestril] 20 mg PO DAILY #30 tab 09/22/18 Allergies Allergy/AdvReac Type Severity Reaction Status Date / Time No Known Allergies Allergy Verified 12/28/18 07:04 Review of Systems ROS Statement: Those systems with pertinent positive or pertinent negative responses have been documented in the HPI. ROS Other: All systems not noted in ROS Statement are negative. Constitutional: Denies: fever, chills Respiratory: Reports: cough, dyspnea. Denies: hemoptysis Cardiovascular: Reports: palpitations, orthopnea. Denies: chest pain, edema, syncope Gastrointestinal: Denies: abdominal pain, vomiting, diarrhea, melena, hematochezia Genitourinary: Denies: dysuria Musculoskeletal: Denies: back pain Skin: Denies: rash Neurological: Denies: headache, weakness Psychiatric: Reports: anxiety Past Medical History Past Medical History: Atrial Fibrillation, Asthma, Heart Failure, COPD, CVA/TIA, Hypertension, Osteoarthritis (OA), Pneumonia, Renal Disease, Syncope Additional Past Medical History / Comment(s): CVA 2005, ESRD, Dialysis cath inserted 02-02-18 gets dialysis . History of Any Multi-Drug Resistant Organisms: None Reported Past Surgical History: Tonsillectomy Additional Past Surgical History / Comment(s): ORIF rt ankle-[address], IUD removal, lumbar steroid injections, dental implants, cardioversion, dialysis cath. has ocl on l wrist, states fell 1 1/2 month ago and has a hairline fracture of wrist Past Anesthesia/Blood Transfusion Reactions: No Reported Reaction Additional Past Anesthesia/Blood Transfusion Reaction / Comment(s): Past blood transfusions - no reaction Past Psychological History: Anxiety Smoking Status: Former smoker Past Alcohol Use History: None Reported Past Drug Use History: None Reported - Past Family History Mother Family Medical History: No Reported History Additional Family Medical History / Comment(s): Mother in her 80s from abdominal aortic aneurysm. Father Family Medical History: Myocardial Infarction ([place]) Additional Family Medical History / Comment(s): Father at age 52 from acute [place]. General Exam Limitations: no limitations General appearance: alert, in distress Head exam: Present: atraumatic, normocephalic Eye exam: Present: normal appearance. Absent: scleral icterus, conjunctival injection ENT exam: Present: mucous membranes dry Respiratory exam: Present: respiratory distress, wheezes, accessory muscle use, decreased breath sounds. Absent: rales, rhonchi, stridor Cardiovascular Exam: Present: tachycardia, irregular rhythm GI/Abdominal exam: Present: soft, other (Peritoneal dialysis catheter). Absent: distended, tenderness, guarding, rebound, rigid, mass Extremities exam: Present: normal inspection, normal capillary refill. Absent: pedal edema, calf tenderness Back exam: Present: normal inspection. Absent: CVA tenderness (R), CVA tenderness (L) Neurological exam: Present: alert Skin exam: Present: warm, dry, intact, normal color. Absent: rash Course Vital Signs 12/28/18 12/28/18 12/28/18 03:52 04:50 06:00 Temperature 98.1 F Pulse Rate 124 H 156 H 176 H Respiratory 28 H 20 20 Rate Blood Pressure 118/96 138/97 140/105 O2 Sat by Pulse 99 100 100 Oximetry 12/28/18 06:42 Temperature Pulse Rate 168 H Respiratory 22 Rate Blood Pressure 112/92 O2 Sat by Pulse 100 Oximetry Medical Decision Making - Medical Decision Making Patient 73-year-old woman with known history of atrial fibrillation, CHF and some underlying COPD. She presents in respiratory distress which appears to be due to atrial fibrillation with rate that times is up to 200. She is given Cardizem bolus and drip. The rate does continue to be above 180 at times. She is given additional Cardizem bolus. Cardiology is paged and discussed case with Dr. Sampson, who requested patient additionally be given Metoprolol. Case is also discussed with Dr. Loomis. - Lab Data Result diagrams: 12/28/18 04:28 12/28/18 04:28 Lab Results 12/28/18 12/28/18 12/28/18 Range/Units 04:28 04:28 04:28 WBC 9.8 (3.8-10.6) k/uL RBC 3.04 L (3.80-5.40) m/uL Hgb 9.5 L (11.4-16.0) gm/dL Hct 30.5 L (34.0-46.0) % MCV 100.4 H (80.0-100.0) fL MCH 31.2 (25.0-35.0) pg MCHC 31.1 (31.0-37.0) g/dL RDW 18.2 H (11.5-15.5) % Plt Count 328 (150-450) k/uL Neutrophils % 81 % Lymphocytes % 8 % Monocytes % 5 % Eosinophils % 3 % Basophils % 0 % Neutrophils # 7.9 H (1.3-7.7) k/uL Lymphocytes # 0.8 L (1.0-4.8) k/uL Monocytes # 0.5 (0-1.0) k/uL Eosinophils # 0.3 (0-0.7) k/uL Basophils # 0.0 (0-0.2) k/uL Anisocytosis Slight Macrocytosis Slight PT (9.0-12.0) sec INR (<1.2) APTT (22.0-30.0) sec Sodium 132 L (137-145) mmol/L Potassium 3.5 (3.5-5.1) mmol/L Chloride 95 L (98-107) mmol/L Carbon Dioxide 19 L (22-30) mmol/L Anion Gap 18 mmol/L BUN 57 H (7-17) mg/dL Creatinine 6.62 H (0.52-1.04) mg/dL Est GFR (CKD-EPI)AfAm 7 (>60 ml/min/1.73 sqM) Est GFR (CKD-EPI)NonAf 6 (>60 ml/min/1.73 sqM) Glucose 127 H (74-99) mg/dL Calcium 7.9 L (8.4-10.2) mg/dL Magnesium (1.6-2.3) mg/dL Total Bilirubin 0.3 (0.2-1.3) mg/dL AST 25 (14-36) U/L ALT 20 (9-52) U/L Alkaline Phosphatase 148 H (38-126) U/L Troponin I (0.000-0.034) ng/mL NT-Pro-B Natriuret Pep >112225 pg/mL Total Protein 6.1 L (6.3-8.2) g/dL Albumin 3.4 L (3.5-5.0) g/dL 12/28/18 12/28/18 12/28/18 Range/Units 04:28 04:28 04:28 WBC (3.8-10.6) k/uL RBC (3.80-5.40) m/uL Hgb (11.4-16.0) gm/dL Hct (34.0-46.0) % MCV (80.0-100.0) fL MCH (25.0-35.0) pg MCHC (31.0-37.0) g/dL RDW (11.5-15.5) % Plt Count (150-450) k/uL Neutrophils % % Lymphocytes % % Monocytes % % Eosinophils % % Basophils % % Neutrophils # (1.3-7.7) k/uL Lymphocytes # (1.0-4.8) k/uL Monocytes # (0-1.0) k/uL Eosinophils # (0-0.7) k/uL Basophils # (0-0.2) k/uL Anisocytosis Macrocytosis PT 10.7 (9.0-12.0) sec INR 1.0 (<1.2) APTT 24.1 (22.0-30.0) sec Sodium (137-145) mmol/L Potassium (3.5-5.1) mmol/L Chloride (98-107) mmol/L Carbon Dioxide (22-30) mmol/L Anion Gap mmol/L BUN (7-17) mg/dL Creatinine (0.52-1.04) mg/dL Est GFR (CKD-EPI)AfAm (>60 ml/min/1.73 sqM) Est GFR (CKD-EPI)NonAf (>60 ml/min/1.73 sqM) Glucose (74-99) mg/dL Calcium (8.4-10.2) mg/dL Magnesium 1.6 (1.6-2.3) mg/dL Total Bilirubin (0.2-1.3) mg/dL AST (14-36) U/L ALT (9-52) U/L Alkaline Phosphatase (38-126) U/L Troponin I 0.152 H* (0.000-0.034) ng/mL NT-Pro-B Natriuret Pep pg/mL Total Protein (6.3-8.2) g/dL Albumin (3.5-5.0) g/dL Critical Care Time Critical Care Time: Yes (40 minutes) Disposition Clinical Impression: Atrial fibrillation with RVR, CHF (congestive heart failure), COPD (chronic obstructive pulmonary disease) Disposition: ADMITTED IP TO THIS [facility] Condition: Serious Is patient prescribed a controlled substance at d/c from ED?: No
[2018-12-28] MEDS ORDERED: DILTIAZEM 125 MG in SODIUM CHLORIDE 0.9% 100 ML IV SCH (04:15)
[2018-12-28] MEDS ORDERED: DILTIAZEM 5 MG/ML 5 ML VIAL IVP STA (04:32)
[2018-12-28 04:39] LABS: Anisocytosis Slight; Basophils % (A) 0 %; Eosinophils # (A) 0.3 k/uL (0-0.7); Eosinophils % (A) 3 %; HCT 30.5 % (34.0-46.0); HGB 9.5 gm/dL (11.4-16.0); Lymphocytes # (A) 0.8 k/uL (1.0-4.8); Lymphocytes % (A) 8 %; MCH 31.2 pg (25.0-35.0); MCHC 31.1 g/dL (31.0-37.0); MCV 100.4 fL (80.0-100.0); Macrocytosis Slight; Mean Platelet Volume 7.4; Monocytes # (A) 0.5 k/uL (0-1.0); Monocytes % (A) 5 %; Neutrophils # (A) 7.9 k/uL (1.3-7.7); Neutrophils % (A) 81 %; Platelet Count 328 k/uL (150-450); RBC 3.04 m/uL (3.80-5.40); RDW 18.2 % (11.5-15.5); WBC 9.8 k/uL (3.8-10.6)
[2018-12-28 04:49] LABS: Partial Thromboplastin Time 24.1 sec (22.0-30.0); Prothrombin Time 10.7 sec (9.0-12.0)
[2018-12-28 04:50] LABS: Albumin 3.4 g/dL (3.5-5.0); Calcium 7.9 mg/dL (8.4-10.2); Potassium 3.5 mmol/L (3.5-5.1); Total Bilirubin 0.3 mg/dL (0.2-1.3); Total Protein 6.1 g/dL (6.3-8.2)
--- NOTE | 2018-12-28 05:03 | XR ---
EXAM: XR Chest, 1 View CLINICAL HISTORY: ITS.REASON XR Reason: dyspnea TECHNIQUE: Frontal view of the chest. COMPARISON: 09/19/18 IMPRESSION: Cardiomegaly. No consolidation or pleural effusion.
[2018-12-28] MEDS ORDERED: NITROGLYCERIN SL TABS 0.4 MG TAB SUBLINGUAL PRN (06:29)
[2018-12-28] MEDS ORDERED: METOPROLOL TARTRATE 50 MG TAB PO STA (06:52)
[2018-12-28] MEDS ORDERED: ALBUTEROL INHALER 60 PUFF/8 GM INHALER INHALATION PRN (07:02)
[2018-12-28] MEDS ORDERED: CALCIUM ACETATE 667 MG TAB PO SCH (07:30)
[2018-12-28] MEDS ORDERED: IPRATROPIUM-ALBUTEROL 3 ML NEB INHALATION SCH (08:00)
[2018-12-28] MEDS ORDERED: FUROSEMIDE 10 MG/ML 4 ML VIAL IV STA (08:15)
--- NOTE | 2018-12-28 08:15 | P.CRDCN ---
History of Present Illness Consult date: 12/28/18 Requesting physician: Jojo Ramirez Consult reason: atrial fibrillation, shortness of breath Chief complaint: Shortness of breath History of present illness: This is a pleasant 73-year-old female who follows regularly with Dr. Solis in her office. She has known history of end-stage renal disease on peritoneal dialysis, history of paroxysmal atrial fibrillation, chronic diastolic heart failure, hypertension, hyperlipidemia, prior TIA, COPD she presents to the hospital on this occasion with symptoms of fairly sudden onset of shortness of breath. She states that the symptoms just started up yesterday, prior to that she states that her breathing had been fine. She also developed a harsh cough, she states she is unable to cough anything up. Denies any fever or chills. Chest x-ray on presentation here showed cardiomegaly with no consolidation or pleural effusion. Her EKG showed atrial fibrillation with a rapid ventricular response. I pressure on arrival here 118/96 with a heart rate of 124, temperature 98.1. Blood pressure 150/70 this morning, heart rate 150, 100% on 2 L of oxygen. White blood cell count is normal, 9.8, hemoglobin 9.5, platelet count 328. Sodium 132, potassium 3.5, chloride 95, CO2 19, BUN 57 and creatinine 6.6, magnesium 1.6. Troponin 0.15, BNP level greater than 350,000. At the time of my examination this morning, the patient is quite short of breath, sitting up in bed. Denies any chest discomfort or palpitations. Past Medical History Past Medical History: Atrial Fibrillation, Asthma, Heart Failure, COPD, CVA/TIA, Hypertension, Osteoarthritis (OA), Pneumonia, Renal Disease, Syncope Additional Past Medical History / Comment(s): CVA 2005, ESRD, Dialysis cath inserted 02-02-18 gets dialysis . History of Any Multi-Drug Resistant Organisms: None Reported Past Surgical History: Tonsillectomy Additional Past Surgical History / Comment(s): ORIF rt ankle-[address], IUD removal, lumbar steroid injections, dental implants, cardioversion, dialysis cath. has ocl on l wrist, states fell 1 1/2 month ago and has a hairline fracture of wrist Past Anesthesia/Blood Transfusion Reactions: No Reported Reaction Additional Past Anesthesia/Blood Transfusion Reaction / Comment(s): Past blood transfusions - no reaction Past Psychological History: Anxiety Smoking Status: Former smoker Past Alcohol Use History: None Reported Past Drug Use History: None Reported - Past Family History Mother Family Medical History: No Reported History Additional Family Medical History / Comment(s): Mother in her 80s from abdominal aortic aneurysm. Father Family Medical History: Myocardial Infarction ([place]) Additional Family Medical History / Comment(s): Father at age 52 from acute [place]. Medications and Allergies Home Medications Medication Instructions Recorded Confirmed Type Apixaban [Eliquis] 2.5 mg PO BID 12/28/18 12/28/18 History Megestrol [Megace] 40 mg PO DAILY 12/28/18 12/28/18 History Omeprazole [PriLOSEC] 20 mg PO DAILY 12/28/18 12/28/18 History Allergies Allergy/AdvReac Type Severity Reaction Status Date / Time No Known Allergies Allergy Verified 12/28/18 07:04 Physical Exam Vitals: Vital Signs Temp Pulse Resp BP Pulse Ox 12/28/18 07:19 152 H 22 150/78 100 12/28/18 06:42 168 H 22 112/92 100 12/28/18 06:00 176 H 20 140/105 100 12/28/18 04:50 156 H 20 138/97 100 12/28/18 03:52 98.1 F 124 H 28 H 118/96 99 Intake and Output 12/27/18 12/28/18 12/28/18 22:59 06:59 14:59 Intake Total 8.667 Balance 8.667 Intake: Intake, IV Titration 8.667 Amount Diltiazem 125 mg In 8.667 Sodium Chloride 0.9% 100 ml @ 5 MG/HR 5 mls/hr IV .Q24H [facility] Rx#:[id number] Other: Weight 53.07 kg PHYSICAL EXAMINATION: GENERAL: 73-year-old female in no acute distress at the time of my examination HEENT: Head is atraumatic, normocephalic. Pupils equal, round. Sclera anicteric. Conjunctiva are clear. Mucous membranes of the mouth are moist. Neck is supple. There is no elevated jugular venous pressure. No carotid bruit is heard. HEART EXAMINATION: Heart S1 and S2 irregularly irregular CHEST EXAMINATION: Lungs reveal scattered coarse rhonchi with diminished air entry throughout. ABDOMEN: Soft, nontender. Bowel sounds are heard. No organomegaly noted. EXTREMITIES: 2+ peripheral pulses with no evidence of peripheral edema and no calf tenderness noted. NEUROLOGIC patient is awake, alert and oriented 3 . . Results 12/28/18 04:28 12/28/18 04:28 Cardiac Enzymes 12/28/18 12/28/18 Range/Units 04:28 04:28 AST 25 (14-36) U/L Troponin I 0.152 H* (0.000-0.034) ng/mL Coagulation 12/28/18 Range/Units 04:28 PT 10.7 (9.0-12.0) sec APTT 24.1 (22.0-30.0) sec CBC 12/28/18 Range/Units 04:28 WBC 9.8 (3.8-10.6) k/uL RBC 3.04 L (3.80-5.40) m/uL Hgb 9.5 L (11.4-16.0) gm/dL Hct 30.5 L (34.0-46.0) % Plt Count 328 (150-450) k/uL Comprehensive Metabolic Panel 12/28/18 Range/Units 04:28 Sodium 132 L (137-145) mmol/L Potassium 3.5 (3.5-5.1) mmol/L Chloride 95 L (98-107) mmol/L Carbon Dioxide 19 L (22-30) mmol/L BUN 57 H (7-17) mg/dL Creatinine 6.62 H (0.52-1.04) mg/dL Glucose 127 H (74-99) mg/dL Calcium 7.9 L (8.4-10.2) mg/dL AST 25 (14-36) U/L ALT 20 (9-52) U/L Alkaline Phosphatase 148 H (38-126) U/L Total Protein 6.1 L (6.3-8.2) g/dL Albumin 3.4 L (3.5-5.0) g/dL Current Medications Generic Name Dose Route Start Last Admin Trade Name Freq PRN Reason Stop Dose Admin Apixaban 2.5 mg 12/28/18 09:00 Eliquis PO BID SIMON Diltiazem HCl 125 mg/ Sodium 125 mls @ 5 mls/hr 12/28/18 04:15 12/28/18 05:59 Chloride IV 10 mg/hr .Q24H SIMON 10 mls/hr Infusion 5 MG/HR Nitroglycerin 0.4 mg 12/28/18 06:29 Nitrostat SUBLINGUAL Q5M PRN Chest Pain Intake and Output 12/27/18 12/28/18 12/28/18 22:59 06:59 14:59 Intake Total 8.667 Balance 8.667 Intake: Intake, IV Titration 8.667 Amount Diltiazem 125 mg In 8.667 Sodium Chloride 0.9% 100 ml @ 5 MG/HR 5 mls/hr IV .Q24H [facility] Rx#:[id number] Other: Weight 53.07 kg 12/28/18 04:28 12/28/18 04:28 EKG Interpretations (text) EKG shows atrial fibrillation with a rapid ventricular response Assessment and Plan Plan: Assessment and plan #1 symptoms of fairly sudden onset of shortness of breath, could be secondary to atrial fibrillation with rapid ventricular response with subsequent element of congestive heart failure, diastolic, acute on chronic #2 end-stage renal disease on dialysis #3 hypertension #4 hyperlipidemia #5 chronic anemia #6 history of paroxysmal atrial fibrillation #7 COPD #8 prior TIA #9 non-[place] troponin elevation, secondary to abnormal renal function #10 hypokalemia #11 hypomagnesemia Plan Patient had an echocardiogram with Doppler study performed in September of this year that revealed a normal left ventricular systolic function with mild to moderate tricuspid regurgitation. We will repeat an echo also at this time. Check a TSH level. Patient's heart rate this morning is up into the 140 range, on the Cardizem drip, we will add some beta jil to the medication regime. The patient on IV Lasix. Further recommendations to follow. DNP note has been reviewed, I agree with a documented findings and plan of care. Patient was seen and examined.
--- NOTE | 2018-12-28 08:43 | XR ---
EXAMINATION TYPE: XR chest 1V portable DATE OF EXAM: 12/28/2018 COMPARISON: 12/28/2018 HISTORY: Shortness of breath TECHNIQUE: Single frontal view of the chest is obtained. FINDINGS: There is diffuse osseous demineralization. Cardiomediastinal silhouette is enlarged. Impro grace pulmonary vascular congestion. Strand-like right infrahilar airspace disease has resolved. Pleura l effusions have also resolved. IMPRESSION: Improving congestive heart failure with only minimal pulmonary vascular congestion shayy robertson.
[2018-12-28] MEDS ORDERED: METOPROLOL TARTRATE 25 MG TAB PO SCH (09:00)
[2018-12-28] MEDS ORDERED: AMIODARONE 100 MG TAB PO SCH (09:00)
[2018-12-28] MEDS ORDERED: LISINOPRIL 20 MG TAB PO SCH (09:00)
[2018-12-28] MEDS ORDERED: METOPROLOL TARTRATE 5 MG/5 ML VIAL IVP STA (09:28)
[2018-12-28] MEDS ORDERED: METOPROLOL TARTRATE 5 MG/5 ML VIAL IVP SCH (09:30)
--- NOTE | 2018-12-28 10:17 | P.HPIM ---
History of Present Illness 71-year-old pleasant female came in with comments of shortness of breath patient does have chronic diastolic dysfunction patient is found to be in can start failure exacerbation patient is a paternal as is dependent my much doesn't u rinate much and that this the hot heart failure exacerbation may have precipitated atrial fibrillation patient is in A. fib patient is on Cardizem drip at this time patient heart rate is not well controlled at and patient is on Eliquis for anticoagulation patient had previous history of TIAs does have history of COPD not in acute exacerbation. Patient is saturating well on 4 L of onset and doesn't use any onset at home. Patient is subjectively feeling short of breath mildly elevated troponin of 0.15 and stated that level and highly elevated BNP. Chest x-ray showed pulmonary edema. She was having orthopnea as well denied any cough. Review of Systems REVIEW OF SYSTEMS: CONSTITUTIONAL: No fever, no malaise, no fatigue. HEENT: No recent visual problems or hearing problems. Denied any sore throat. CARDIOVASCULAR: No chest pain, no syncope. PULMONARY: No shortness of breath, no cough, no hemoptysis. GASTROINTESTINAL: No diarrhea, no nausea, no vomiting, no abdominal pain. NEUROLOGICAL: No headaches, no weakness, no numbness. HEMATOLOGICAL: Denies any bleeding or petechiae. GENITOURINARY: Denies any burning micturition, frequency, or urgency. MUSCULOSKELETAL/RHEUMATOLOGICAL: Denies any joint pain, swelling, or any muscle pain. ENDOCRINE: Denies any polyuria or polydipsia. The rest of the 14-point review of systems is negative. Past Medical History Past Medical History: Atrial Fibrillation, Asthma, Heart Failure, COPD, CVA/TIA, Hypertension, Osteoarthritis (OA), Pneumonia, Renal Disease, Syncope Additional Past Medical History / Comment(s): CVA 2005, ESRD, Dialysis cath inserted 02-02-18 gets dialysis . History of Any Multi-Drug Resistant Organisms: None Reported Past Surgical History: Tonsillectomy Additional Past Surgical History / Comment(s): ORIF rt ankle-[address], IUD removal, lumbar steroid injections, dental implants, cardioversion, dialysis cath. has ocl on l wrist, states fell 1 1/2 month ago and has a hairline fracture of wrist Past Anesthesia/Blood Transfusion Reactions: No Reported Reaction Additional Past Anesthesia/Blood Transfusion Reaction / Comment(s): Past blood transfusions - no reaction Past Psychological History: Anxiety Smoking Status: Former smoker Past Alcohol Use History: None Reported Past Drug Use History: None Reported - Past Family History Mother Family Medical History: No Reported History Additional Family Medical History / Comment(s): Mother in her 80s from abdominal aortic aneurysm. Father Family Medical History: Myocardial Infarction ([place]) Additional Family Medical History / Comment(s): Father at age 52 from acute [place]. Medications and Allergies Home Medications Medication Instructions Recorded Confirmed Type Apixaban [Eliquis] 2.5 mg PO BID 12/28/18 12/28/18 History Megestrol [Megace] 40 mg PO DAILY 12/28/18 12/28/18 History Omeprazole [PriLOSEC] 20 mg PO DAILY 12/28/18 12/28/18 History Allergies Allergy/AdvReac Type Severity Reaction Status Date / Time No Known Allergies Allergy Verified 12/28/18 07:04 Physical Exam Vitals: Vital Signs Temp Pulse Resp BP Pulse Ox 12/28/18 07:19 152 H 22 150/78 100 12/28/18 06:42 168 H 22 112/92 100 12/28/18 06:00 176 H 20 140/105 100 12/28/18 04:50 156 H 20 138/97 100 12/28/18 03:52 98.1 F 124 H 28 H 118/96 99 Intake and Output 12/27/18 12/28/18 12/28/18 22:59 06:59 14:59 Intake Total 8.667 240 Balance 8.667 240 Intake: Intake, IV Titration 8.667 Amount Diltiazem 125 mg In 8.667 Sodium Chloride 0.9% 100 ml @ 5 MG/HR 5 mls/hr IV .Q24H ON LICENSE OF [facility] Rx#:[id number] Oral 240 Other: Weight 53.07 kg PHYSICAL EXAMINATION: GENERAL: The patient is alert and oriented x3, not in any acute distress. Well developed, well nourished. HEENT: Pupils are round and equally reacting to light. EOMI. No scleral icterus. No conjunctival pallor. Normocephalic, atraumatic. No pharyngeal erythema. No thyromegaly. CARDIOVASCULAR: S1 and S2 present. No murmurs, rubs, or gallops. PULMONARY: Chest is clear to auscultation, no wheezing or crackles. ABDOMEN: Soft, nontender, nondistended, normoactive bowel sounds. No palpable organomegaly. MUSCULOSKELETAL: No joint swelling or deformity. EXTREMITIES: No cyanosis, clubbing, or pedal edema. NEUROLOGICAL: Gross neurological examination did not reveal any focal deficits. SKIN: No rashes. Results CBC & Chem 7: 12/28/18 04:28 12/28/18 04:28 Labs: Abnormal Lab Results - Last 24 Hours (Table) 12/28/18 12/28/18 12/28/18 Range/Units 04:28 04:28 04:28 RBC 3.04 L (3.80-5.40) m/uL Hgb 9.5 L (11.4-16.0) gm/dL Hct 30.5 L (34.0-46.0) % MCV 100.4 H (80.0-100.0) fL RDW 18.2 H (11.5-15.5) % Neutrophils # 7.9 H (1.3-7.7) k/uL Lymphocytes # 0.8 L (1.0-4.8) k/uL D-Dimer (<0.60) mg/L FEU Sodium 132 L (137-145) mmol/L Chloride 95 L (98-107) mmol/L Carbon Dioxide 19 L (22-30) mmol/L BUN 57 H (7-17) mg/dL Creatinine 6.62 H (0.52-1.04) mg/dL Glucose 127 H (74-99) mg/dL Calcium 7.9 L (8.4-10.2) mg/dL Alkaline Phosphatase 148 H (38-126) U/L Troponin I 0.152 H* (0.000-0.034) ng/mL Total Protein 6.1 L (6.3-8.2) g/dL Albumin 3.4 L (3.5-5.0) g/dL TSH (0.465-4.680) mIU/L 12/28/18 12/28/18 Range/Units 09:00 09:00 RBC (3.80-5.40) m/uL Hgb (11.4-16.0) gm/dL Hct (34.0-46.0) % MCV (80.0-100.0) fL RDW (11.5-15.5) % Neutrophils # (1.3-7.7) k/uL Lymphocytes # (1.0-4.8) k/uL D-Dimer 0.92 H (<0.60) mg/L FEU Sodium (137-145) mmol/L Chloride (98-107) mmol/L Carbon Dioxide (22-30) mmol/L BUN (7-17) mg/dL Creatinine (0.52-1.04) mg/dL Glucose (74-99) mg/dL Calcium (8.4-10.2) mg/dL Alkaline Phosphatase (38-126) U/L Troponin I (0.000-0.034) ng/mL Total Protein (6.3-8.2) g/dL Albumin (3.5-5.0) g/dL TSH 0.042 L (0.465-4.680) mIU/L Assessment and Plan Plan: -Acute hypoxic respiratory failure can secondary to congestive heart failure chronic diastolic dysfunction with acute exacerbation patient will be continued on Lasix may not be helpful patient will undergo peritoneal dialysis and nephrology is following the patient -Atrial fibrillation with rapid ventricular rate: Patient will be continued on Cardizem continue with Eliquis cardiology is following the patient -Mild elevated troponin secondary to end-stage renal disease hemodialysis -Hyponatremia probably hypervolemic hyponatremia expected to be corrected with her peritoneal dialysis -Elevated MCV: We will obtain B12 levels -Hypertension -And seasonal disease probably hypertensive nephrosclerosis on peritoneal dialy sis -Hyperlipidemia -COPD without any significant exacerbation -Prior history of TIA in the past -Metabolic bone disease from end-stage renal disease continue phosphate binders
--- NOTE | 2018-12-28 10:19 | P.NPCON ---
History of Present Illness - Reason for Consult end stage renal disease - History of Present Illness Reason for consultation: End-stage renal disease History of present illness: Patient is a 73-year-old female seen in renal consultation for end-stage renal disease. She is maintained on peritoneal dialysis. Patient presented to the hospital with dyspnea that started early this morning. The called the EMS. Patient denies any chest pain. She still admits to dyspnea. Patient also noted to be in A. fib with RVR with heart rate in the 160s to 170s. Blood pressure is stable. Denies vomiting or diarrhea. No fever or chills. Does have a nonproductive cough. Patient does 4 manual exchanges at home and states the dialysate has been clear. Denies abdominal pain. Chest x-ray is suggestive of vascular congestion. Patient is currently on Cardizem drip. She makes no urine. Vital signs are stable. General: The patient appeared well nourished and normally developed. HEENT: Head exam is unremarkable. Neck is without jugular venous distension. LUNGS: Lungs are clear to auscultation and percussion. Breath sounds decreased. HEART: Irregular rate and rhythm. ABDOMEN: Abdominal exam reveals normal bowel sounds. Non-tender and non- distended. No evidence of peritonitis. EXTREMITITES: No clubbing, cyanosis, or edema. Past Medical History Past Medical History: Atrial Fibrillation, Asthma, Heart Failure, COPD, CVA/TIA, Hypertension, Osteoarthritis (OA), Pneumonia, Renal Disease, Syncope Additional Past Medical History / Comment(s): CVA 2005, ESRD, Dialysis cath inserted 02-02-18 gets dialysis . History of Any Multi-Drug Resistant Organisms: None Reported Past Surgical History: Tonsillectomy Additional Past Surgical History / Comment(s): ORIF rt ankle-[address], IUD removal, lumbar steroid injections, dental implants, cardioversion, dialysis cath. has ocl on l wrist, states fell 1 1/2 month ago and has a hairline fracture of wrist Past Anesthesia/Blood Transfusion Reactions: No Reported Reaction Additional Past Anesthesia/Blood Transfusion Reaction / Comment(s): Past blood transfusions - no reaction Past Psychological History: Anxiety Smoking Status: Former smoker Past Alcohol Use History: None Reported Past Drug Use History: None Reported - Past Family History Mother Family Medical History: No Reported History Additional Family Medical History / Comment(s): Mother in her 80s from abdominal aortic aneurysm. Father Family Medical History: Myocardial Infarction ([place]) Additional Family Medical History / Comment(s): Father at age 52 from acute [place]. Medications and Allergies Home Medications Medication Instructions Recorded Confirmed Type Apixaban [Eliquis] 2.5 mg PO BID 12/28/18 12/28/18 History Megestrol [Megace] 40 mg PO DAILY 12/28/18 12/28/18 History Omeprazole [PriLOSEC] 20 mg PO DAILY 12/28/18 12/28/18 History Allergies Allergy/AdvReac Type Severity Reaction Status Date / Time No Known Allergies Allergy Verified 12/28/18 07:04 Physical Exam Vitals: Vital Signs Temp Pulse Resp BP Pulse Ox 12/28/18 07:19 152 H 22 150/78 100 12/28/18 06:42 168 H 22 112/92 100 12/28/18 06:00 176 H 20 140/105 100 12/28/18 04:50 156 H 20 138/97 100 12/28/18 03:52 98.1 F 124 H 28 H 118/96 99 Intake and Output 12/27/18 12/28/18 12/28/18 22:59 06:59 14:59 Intake Total 8.667 240 Balance 8.667 240 Intake: Intake, IV Titration 8.667 Amount Diltiazem 125 mg In 8.667 Sodium Chloride 0.9% 100 ml @ 5 MG/HR 5 mls/hr IV .Q24H [facility] Rx#:[id number] Oral 240 Other: Weight 53.07 kg Results - Lab Results Most recent lab results Calcium 7.9 mg/dL (8.4-10.2) L 12/28/18 04:28 Magnesium 1.6 mg/dL (1.6-2.3) 12/28/18 04:28 12/28/18 04:28 12/28/18 04:28 Assessment and Plan Plan: Assessment: 1. End-stage renal disease maintained on peritoneal dialysis. 2. Dyspnea secondary to volume overload. 3. A. fib with RVR. Currently on Cardizem drip. She is also on Eliquis. Cardiology following. 4. Hypertension with chronic kidney disease. Patient also has history of renal artery stenosis. 5. Acute on chronic diastolic CHF. 6. Metabolic acidosis secondary to chronic kidney disease. 7. Hyponatremia secondary to chronic kidney disease. Currently hypervolemic. 8. Anemia of chronic kidney disease. Rule out iron deficiency. Plan: Start PD exchanges with 2 L every 4 hours for 2.5% solution. Potassium and magnesium being replaced. Monitor bicarb. Check iron studies. Thank you for the consultation. I will continue to follow the patient with you during her hospital stay.
[2018-12-28] MEDS: DIALYSIS (PERIT 2.5%) 2,000 ML 50 G/2,000 ML BAG INTRAPERIT SCH ×3 (13:12→22:04)
[2018-12-28] MEDS: METOPROLOL TARTRATE 25 MG TAB PO SCH ×2 (13:22→20:48)
[2018-12-28] MEDS: POTASSIUM CHLORIDE ER 20 MEQ TAB.ER PO SCH ×3 (13:22→16:59)
[2018-12-28] MEDS: APIXABAN 2.5 MG TABLET PO SCH ×2 (13:22→20:48)
[2018-12-28] MEDS: MAGNESIUM SULFATE-D5W PMX 1 GM in DEXTROSE/WATER 1 100ML.BAG IVPB SCH ×2 (13:22→16:59)
[2018-12-28 16:42] LABS: Ferritin 1429.2 ng/mL (10.0-291.0); Iron Saturation 10.76 (12.00-45.00)
[2018-12-28] MEDS: ALPRAZolam 0.25 MG TAB PO PRN ×2 (16:56→22:47)
[2018-12-28] MEDS: IPRATROPIUM-ALBUTEROL 3 ML NEB INHALATION PRN (17:32)
[2018-12-28] MEDS: BUDESONIDE 0.5 MG/2 ML NEBU INHALATION SCH ×2 (17:32→23:43)
[2018-12-28] MEDS: FUROSEMIDE 10 MG/ML 4 ML VIAL IV SCH (18:23)
[2018-12-28] MEDS ORDERED: ZOLPIDEM 5 MG TAB PO SCH (21:00)
[2018-12-28] MEDS ORDERED: SERTRALINE 50 MG TAB PO SCH (21:00)
[2018-12-28] MEDS ORDERED: FUROSEMIDE 10 MG/ML 10 ML VIAL IV STA (21:18)
[2018-12-28] MEDS: DIALYSIS (PERIT 4.25%) 2000 ML 85 G/2,000 ML BAG INTRAPERIT SCH ×2 (22:48→23:10)
[2018-12-29] MEDS: IPRATROPIUM-ALBUTEROL 3 ML NEB INHALATION PRN ×2 (01:26→08:30)
[2018-12-29] MEDS: DIALYSIS (PERIT 4.25%) 2000 ML 85 G/2,000 ML BAG INTRAPERIT SCH ×5 (04:08→20:27)
[2018-12-29 06:02] LABS: Anisocytosis Slight; HCT 28.6 % (34.0-46.0); HGB 9.1 gm/dL (11.4-16.0); MCH 32.1 pg (25.0-35.0); MCHC 31.6 g/dL (31.0-37.0); MCV 101.7 fL (80.0-100.0); Macrocytosis Moderate; Mean Platelet Volume 7.8; Platelet Count 319 k/uL (150-450); RBC 2.82 m/uL (3.80-5.40); RDW 17.7 % (11.5-15.5); WBC 10.7 k/uL (3.8-10.6)
[2018-12-29 06:11] LABS: Calcium 8.5 mg/dL (8.4-10.2); Potassium 4.7 mmol/L (3.5-5.1)
[2018-12-29] MEDS: BUDESONIDE 0.5 MG/2 ML NEBU INHALATION SCH ×2 (08:30→18:53)
[2018-12-29] MEDS: METOPROLOL TARTRATE 25 MG TAB PO SCH (08:41)
[2018-12-29] MEDS: FUROSEMIDE 10 MG/ML 4 ML VIAL IV SCH ×2 (08:41→22:10)
[2018-12-29] MEDS: APIXABAN 2.5 MG TABLET PO SCH ×2 (08:41→19:28)
[2018-12-29] MEDS ORDERED: LISINOPRIL 10 MG TAB PO SCH (09:00)
--- NOTE | 2018-12-29 10:42 | P.PN ---
Subjective 71-year-old female admitted for atrial fibrillation and can start failure chronic diastolic dysfunction with acute exacerbation patient is sinus rhythm at this time patient is still apparent colitis of thousand doesn't use any oxygen at home will taper down the oxygen continue with IV Lasix and patient is undergoing CPPD patient doesn't urinate much so Lasix may not be beneficial. Patient is requesting for home oxygen patient will be evaluated for home oxygen at the time of discharge.shortness of breath did not improve significantly Constitutional: Denied any fatigue denied any fever. Cardio vascular: denied any chest pain, palpitations Gastrointestinal denied any nausea vomiting Pulmonary: as mentioned in the interval history Neurologic denied any new focal deficits All inpatient medications were reviewed and appropriate changes in these medications as dictated in the interval history and assessment and plan. Objective - Vital Signs Vital signs: Vital Signs Temp 98.0 F 12/29/18 04:10 Pulse 92 12/29/18 08:43 Resp 18 12/29/18 04:10 BP 174/102 12/29/18 04:10 Pulse Ox 100 12/29/18 04:10 Intake & Output 12/28/18 12/29/18 12/29/18 18:59 06:59 18:59 Intake Total 720 200 480 Output Total 200 Balance 520 200 480 Weight 57.6 kg Intake: Oral 720 200 480 Output: Urine 200 Other: Voiding Method Bedside Commode Bedside Commode # Voids 1 # Bowel Movements 1 1 - Exam PHYSICAL EXAMINATION: GENERAL: The patient is alert and oriented x3, not in any acute distress. Well developed, well nourished. HEENT: Pupils are round and equally reacting to light. EOMI. No scleral icterus. No conjunctival pallor. Normocephalic, atraumatic. No pharyngeal erythema. No thyromegaly. CARDIOVASCULAR: S1 and S2 present. No murmurs, rubs, or gallops. PULMONARY: Chest is clear to auscultation, no wheezing or crackles. ABDOMEN: Soft, nontender, nondistended, normoactive bowel sounds. No palpable organomegaly. MUSCULOSKELETAL: No joint swelling or deformity. EXTREMITIES: No cyanosis, clubbing, or pedal edema. NEUROLOGICAL: Gross neurological examination did not reveal any focal deficits. SKIN: No rashes. - Labs CBC & Chem 7: 12/29/18 05:22 12/29/18 05:22 Labs: Abnormal Lab Results - Last 24 Hours (Table) 12/28/18 12/28/18 12/29/18 Range/Units 09:00 16:39 05:22 WBC (3.8-10.6) k/uL RBC (3.80-5.40) m/uL Hgb (11.4-16.0) gm/dL Hct (34.0-46.0) % MCV (80.0-100.0) fL RDW (11.5-15.5) % Sodium 133 L (137-145) mmol/L Chloride 95 L (98-107) mmol/L BUN 61 H (7-17) mg/dL Creatinine 6.59 H (0.52-1.04) mg/dL Glucose 163 H (74-99) mg/dL Iron 27 L (50-170) ug/dL Iron Saturation 10.76 L (12.00-45.00) Ferritin 1429.2 H (10.0-291.0) ng/mL Troponin I 0.087 H* (0.000-0.034) ng/mL HDL Cholesterol 62 H (40-60) mg/dL 12/29/18 Range/Units 05:22 WBC 10.7 H (3.8-10.6) k/uL RBC 2.82 L (3.80-5.40) m/uL Hgb 9.1 L (11.4-16.0) gm/dL Hct 28.6 L (34.0-46.0) % MCV 101.7 H (80.0-100.0) fL RDW 17.7 H (11.5-15.5) % Sodium (137-145) mmol/L Chloride (98-107) mmol/L BUN (7-17) mg/dL Creatinine (0.52-1.04) mg/dL Glucose (74-99) mg/dL Iron (50-170) ug/dL Iron Saturation (12.00-45.00) Ferritin (10.0-291.0) ng/mL Troponin I (0.000-0.034) ng/mL HDL Cholesterol (40-60) mg/dL Assessment and Plan Plan: -Acute hypoxic respiratory failure can secondary to congestive heart failure chronic diastolic dysfunction with acute exacerbation patient will be continued on Lasix may not be helpful patient will undergo peritoneal dialysis and nephrology is following the patient -Atrial fibrillation with rapid ventricular rate: patient is off Cardizem drip patient is on metoprolol presently sinus rhythmcontinue with Eliquis cardiology is following the patient -Mild elevated troponin secondary to end-stage renal disease ration is on peritoneal dialysis -Hyponatremia probably hypervolemic hyponatremia expected to be corrected with her peritoneal dialysis -Elevated MCV: B12 levels are within normal limits -Sick euthyroid syndrome TSH need to be repeated in about a month -Hypertension -And seasonal disease probably hypertensive nephrosclerosis on peritoneal dialysis -Hyperlipidemia -COPD without any significant exacerbation -Prior history of TIA in the past -Metabolic bone disease from end-stage renal disease continue phosphate binders
--- NOTE | 2018-12-29 11:36 | PN ---
PROGRESS NOTE Patient is seen for followup for end-stage renal disease. She was admitted to the hospital with shortness of breath and volume overload. Patient is maintained on peritoneal dialysis. Her exchanges have been increased to 4.25% solution q.4 hours. She has had good UF for the last 2 exchanges of about 1.1 L. Blood pressure remains elevated. This morning patient is lying in bed. She is comfortable. Blood pressure was 167/111, heart rate 109 per minute. She is afebrile. Examination of the heart S1, S2. Examination of the lungs, decreased breath sounds at the bases. Bilateral basal crackles are heard. Abdomen is soft, nontender. Examination of the lower extremities shows no significant edema. SEASONER exam is not examined in detail. Patient has been moving all 4 extremities. LABS: Show sodium 133, potassium 4.7, hemoglobin 9.1 g/dL. ASSESSMENT: 1. End-stage renal disease, on peritoneal dialysis. Continue current PD exchanges. 2. Volume overload maintained 4.25% solution q.4 hours. 3. Hypertension, partly volume sensitive and also secondary to bilateral renal artery stenosis with underlying flash pulmonary edema. Will maintain patient on ZO inhibitors and angiotensin receptor blockers which she has responded to very well previously. 4. CKD mineral bone disorder. 5. Anemia of chronic disease. PLAN: Add lisinopril. Continue current PD exchanges. Add Cozaar as well if blood pressure remains elevated. MMODL / IJN: [id number] /
--- NOTE | 2018-12-29 12:59 | ECHOF ---
Referral Reason:afib MEASUREMENTS -------- HEIGHT: 165.1 cm WEIGHT: 53.1 kg BP: 150/78 IVSd: 1.4 cm (0.6 - 1.1) LVIDd: 4.4 cm (3.9 - 5.3) LVPWd: 1.3 cm (0.6 - 1.1) IVSs: 1.6 cm LVIDs: 3.9 cm LVPWs: 1.5 cm LA Diam: 3.8 cm (2.7 - 3.8) RVIDd: 3.6 cm (< 3.3) LAESV Index (A-L): 38.72 ml/m Ao Diam: 3.1 cm (2.0 - 3.7) AV Cusp: 1.3 cm (1.5 - 2.6) EPSS: 1.0 cm RAP: 15.00 mmHg RVSP: 36.63 mmHg MV EF SLOPE: 81.56 mm/s (70 - 150) MV EXCURSION: 13.97 mm (> 18.000) FINDINGS -------- Atrial fibrillation. This was a technically good study. The left ventricular size is normal. There is moderate concentric left ventricular hypertrophy. O verall left ventricular systolic function is severely impaired with, an EF between 20 - 25 %. The right ventricle is mildly enlarged. LA is moderately dilated 34-39 ml/m2 The right atrium is normal in size. Interatrial and interventricular septum intact. There is mild aortic valve sclerosis. The mitral valve leaflets are moderately thickened. Moderate mitral annular calcification present. Mild mitral regurgitation is present. Mild tricuspid regurgitation present. There is mild pulmonary hypertension. The right ventricular systolic pressure, as measured by Doppler, is 36.63mmHg. Trace/mild (physiologic) pulmonic regurgitation. The aortic root size is normal. The inferior vena cava is dilated with poor inspiratory collapse which is consistent with estimated r ight atrial pressure of 15 mmHg. There is no pericardial effusion. Pleural Effusion with Fibrin. CONCLUSIONS -------- 1. Atrial fibrillation. 2. This was a technically good study. 3. The left ventricular size is normal. 4. There is moderate concentric left ventricular hypertrophy. 5. Overall left ventricular systolic function is severely impaired with, an EF between 20 - 25 %. 6. The right ventricle is mildly enlarged. 7. LA is moderately dilated 34-39 ml/m2 8. The right atrium is normal in size. 9. Interatrial and interventricular septum intact. 10. There is mild aortic valve sclerosis. 11. The mitral valve leaflets are moderately thickened. 12. Moderate mitral annular calcification present. 13. Mild mitral regurgitation is present. 14. Mild tricuspid regurgitation present. 15. There is mild pulmonary hypertension. 16. The right ventricular systolic pressure, as measured by Doppler, is 36.63mmHg. 17. Trace/mild (physiologic) pulmonic regurgitation. 18. The aortic root size is normal. 19. The inferior vena cava is dilated with poor inspiratory collapse which is consistent with estimat ed right atrial pressure of 15 mmHg. 20. There is no pericardial effusion. 21. Pleural Effusion with Fibrin. CENTRAL OFFICE OPERATOR SUPERVISOR: Simran Faulkner RDCS
--- NOTE | 2018-12-29 13:53 | P.PN ---
Subjective Progress Note Date: 12/29/18 Principal diagnosis: Paroxysmal atrial fibrillation/congestive heart failure secondary to systolic dysfunction This is a pleasant 73-year-old female patient with a past medical history significant for end stage renal disease on dialysis, paroxysmal atrial fibrillation, hypertension, dyslipidemia, and history of TIA, was admitted to the hospital with atrial fibrillation with RVR along with congestive heart failure exacerbation. She underwent an echocardiogram which revealed severe cardiomyopathy with EF around 20% with mild MR and mild TR. On follow-up with her today, she is feeling slightly better indeterminable shortness of breath. No chest pain or chest discomfort. She was converted to normal sinus mechanism. She still hypertensive. On examination, she still fl uid overloaded. She still on Lasix IV. I am going to increase the dose of metoprolol to keep the patient in normal sinus mechanism as well as controlled blood pressure. Objective - Vital Signs Vital signs: Vital Signs Temp 98.2 F 12/29/18 08:00 Pulse 92 12/29/18 08:43 Resp 20 12/29/18 11:53 BP 167/111 12/29/18 08:00 Pulse Ox 100 12/29/18 08:00 Intake & Output 12/28/18 12/29/18 12/29/18 18:59 06:59 18:59 Intake Total 720 200 720 Output Total 200 Balance 520 200 720 Weight 57.6 kg Intake: Oral 720 200 720 Output: Urine 200 Other: Voiding Method Bedside Commode Bedside Commode Bedside Commode # Voids 1 # Bowel Movements 1 1 - Constitutional General appearance: Present: no acute distress - Respiratory Respiratory: bilateral: diminished - Cardiovascular Rhythm: regular Heart sounds: normal: S1, S2 - Labs CBC & Chem 7: 12/29/18 05:22 12/29/18 05:22 Labs: Abnormal Lab Results - Last 24 Hours (Table) 12/28/18 12/28/18 12/29/18 Range/Units 09:00 16:39 05:22 WBC (3.8-10.6) k/uL RBC (3.80-5.40) m/uL Hgb (11.4-16.0) gm/dL Hct (34.0-46.0) % MCV (80.0-100.0) fL RDW (11.5-15.5) % Sodium 133 L (137-145) mmol/L Chloride 95 L (98-107) mmol/L BUN 61 H (7-17) mg/dL Creatinine 6.59 H (0.52-1.04) mg/dL Glucose 163 H (74-99) mg/dL Iron 27 L (50-170) ug/dL Iron Saturation 10.76 L (12.00-45.00) Ferritin 1429.2 H (10.0-291.0) ng/mL Troponin I 0.087 H* (0.000-0.034) ng/mL HDL Cholesterol 62 H (40-60) mg/dL 12/29/18 Range/Units 05:22 WBC 10.7 H (3.8-10.6) k/uL RBC 2.82 L (3.80-5.40) m/uL Hgb 9.1 L (11.4-16.0) gm/dL Hct 28.6 L (34.0-46.0) % MCV 101.7 H (80.0-100.0) fL RDW 17.7 H (11.5-15.5) % Sodium (137-145) mmol/L Chloride (98-107) mmol/L BUN (7-17) mg/dL Creatinine (0.52-1.04) mg/dL Glucose (74-99) mg/dL Iron (50-170) ug/dL Iron Saturation (12.00-45.00) Ferritin (10.0-291.0) ng/mL Troponin I (0.000-0.034) ng/mL HDL Cholesterol (40-60) mg/dL Assessment and Plan Assessment: Assessment #1 atrial fibrillation with RVR. The patient converted to normal sinus [facility]. #2 congestive heart failure exacerbation secondary to systolic dysfunction #3 severe cardiomyopathy. The ejection fraction is 20% #4 into stage renal disease on hemodialysis #5 multiple comorbid conditions including hypertension and dyslipidemia Plan #1 continue anticoagulation. The patient is on oral anticoagulation with Eliquis #2 continue IV Lasix. #3 increase the dose of metoprolol #4 follow-up with the patient
[2018-12-29] MEDS ORDERED: METOPROLOL TARTRATE 50 MG TAB PO SCH (21:00)
[2018-12-29] MEDS: ALPRAZolam 0.25 MG TAB PO PRN (22:13)
[2018-12-29] MEDS ORDERED: DIALYSIS (PERIT 4.25%) 2000 ML 85 G/2,000 ML BAG INTRAPERIT SCH (23:00)
[2018-12-30] MEDS ORDERED: DILTIAZEM DRIP BOLUS FROM BAG 1 MG SOLN IV ONE
[2018-12-30] MEDS ORDERED: DILTIAZEM 125 MG in SODIUM CHLORIDE 0.9% 100 ML IV SCH ×2
[2018-12-30] MEDS: DIALYSIS (PERIT 4.25%) 2000 ML 85 G/2,000 ML BAG INTRAPERIT SCH ×3 (01:16→09:18)
[2018-12-30] MEDS ORDERED: AMIODARONE 360 MG in DEXTROSE 5% IN WATER 200 ML IV ONE ×2 (05:55)
[2018-12-30] MEDS ORDERED: DEXTROSE 5% IN WATER 100 ML with AMIODARONE 150 MG IV ONE (05:55)
[2018-12-30 07:05] LABS: Calcium 8.3 mg/dL (8.4-10.2); Potassium 3.8 mmol/L (3.5-5.1)
[2018-12-30] MEDS: BUDESONIDE 0.5 MG/2 ML NEBU INHALATION SCH ×2 (08:12→19:57)
--- NOTE | 2018-12-30 08:50 | P.PN ---
Subjective Progress Note Date: 12/30/18 Principal diagnosis: Paroxysmal atrial fibrillation/congestive heart failure secondary to systolic dysfunction This is a pleasant 73-year-old female patient with a past medical history significant for end stage renal disease on dialysis, paroxysmal atrial fibrillation, hypertension, dyslipidemia, and history of TIA, was admitted to the hospital with atrial fibrillation with RVR along with congestive heart failure exacerbation. She underwent an echocardiogram which revealed severe cardiomyopathy with EF around 20% with mild MR and mild TR. On follow-up with the patient today, 12/30/2018, the patient is not feeling well. She is more short of breath. Beside that she is back in atrial fibrillation with RVR. The blood pressure has been low. With a combination of the above, she is not feeling well. She did not have dialysis today because of the low blood pressure. She was started on amiodarone IV earlier today and I am going to continue. Beside that I would decrease the dose of metoprolol as well as DC Lasix in view of the low blood pressure. Continue oral anticoagulation. Objective - Vital Signs Vital signs: Vital Signs Temp 97.5 F L 12/30/18 08:00 Pulse 150 H 12/30/18 08:00 Resp 20 12/30/18 08:00 BP 83/58 12/30/18 08:00 Pulse Ox 99 12/30/18 08:00 Intake & Output 12/29/18 12/30/18 12/30/18 18:59 06:59 18:59 Intake Total 960 332 Output Total 0 0 Balance 960 332 0 Weight 54.4 kg Intake: IV 10 Invasive Line 1 10 Oral 960 322 Output: Urine 0 0 Other: Voiding Method Bedside Commode Bedside Commode # Bowel Movements 1 1 - Constitutional General appearance: Present: no acute distress - Respiratory Respiratory: bilateral: rales - Cardiovascular Rhythm: irregularly irregular Heart sounds: normal: S1, S2 - Labs CBC & Chem 7: 12/29/18 05:22 12/30/18 06:10 Labs: Abnormal Lab Results - Last 24 Hours (Table) 12/30/18 Range/Units 06:10 Sodium 133 L (137-145) mmol/L Chloride 96 L (98-107) mmol/L BUN 55 H (7-17) mg/dL Creatinine 6.15 H (0.52-1.04) mg/dL Glucose 110 H (74-99) mg/dL Calcium 8.3 L (8.4-10.2) mg/dL Assessment and Plan Assessment: Assessment #1 atrial fibrillation with RVR. The patient converted to normal sinus mechanism. #2 congestive heart failure exacerbation secondary to systolic dysfunction #3 severe cardiomyopathy. The ejection fraction is 20% #4 into stage renal disease on hemodialysis #5 multiple comorbid conditions including hypertension and dyslipidemia Plan #1 I agree about continue the amiodarone IV. We'll switch her to amiodarone by mouth down the line #2 decrease the dose of metoprolol #3 DC Lasix IV #4 continue oral anticoagulation
[2018-12-30] MEDS: METOPROLOL TARTRATE 25 MG TAB PO SCH ×2 (09:21→20:00)
[2018-12-30] MEDS: APIXABAN 2.5 MG TABLET PO SCH ×2 (09:21→20:00)
[2018-12-30] MEDS: ALPRAZolam 0.25 MG TAB PO PRN ×2 (10:34→20:00)
--- NOTE | 2018-12-30 11:14 | P.PN ---
Subjective 71-year-old female admitted for atrial fibrillation and can start failure chronic diastolic dysfunction with acute exacerbation patient is sinus rhythm at this time patient is still apparent colitis of thousand doesn't use any oxygen at home will taper down the oxygen continue with IV Lasix and patient is undergoing CPPD patient doesn't urinate much so Lasix may not be beneficial. Patient is requesting for home oxygen patient will be evaluated for home oxygen at the time of discharge.shortness of breath did not improve significantly 12/30/2018 Patient continued to have respiratory issues still short of breath patient heart rate went into 150s and patient is not feeling well. Patient is not much volume overloaded better blood pressure is low because of which Lasix is being held at this time but patient will go into heart failure because of A. fib. She was started on amiodarone. Constitutional: Denied any fatigue denied any fever. Cardio vascular: denied any chest pain, palpitations Gastrointestinal denied any nausea vomiting Pulmonary: as mentioned in the interval history Neurologic denied any new focal deficits All inpatient medications were reviewed and appropriate changes in these medications as dictated in the interval history and assessment and plan. Objective - Vital Signs Vital signs: Vital Signs Temp 97.5 F L 12/30/18 08:00 Pulse 150 H 12/30/18 08:00 Resp 20 12/30/18 08:00 BP 83/58 12/30/18 08:00 Pulse Ox 99 12/30/18 08:00 Intake & Output 12/29/18 12/30/18 12/30/18 18:59 06:59 18:59 Intake Total 960 332 Output Total 0 0 Balance 960 332 0 Weight 54.4 kg Intake: IV 10 Invasive Line 1 10 Oral 960 322 Output: Urine 0 0 Other: Voiding Method Bedside Commode Bedside Commode # Bowel Movements 1 1 - Exam PHYSICAL EXAMINATION: GENERAL: The patient is alert and oriented x3, not in any acute distress. Well developed, well nourished. HEENT: Pupils are round and equally reacting to light. EOMI. No scleral icterus. No conjunctival pallor. Normocephalic, atraumatic. No pharyngeal erythema. No thyromegaly. CARDIOVASCULAR: S1 and S2 present. No murmurs, rubs, or gallops. Tachycardic irregularly irregular rhythm PULMONARY: Chest is clear to auscultation, no wheezing or crackles. ABDOMEN: Soft, nontender, nondistended, normoactive bowel sounds. No palpable organomegaly. MUSCULOSKELETAL: No joint swelling or deformity. EXTREMITIES: No cyanosis, clubbing, or pedal edema. NEUROLOGICAL: Gross neurological examination did not reveal any focal deficits. SKIN: No rashes. - Labs CBC & Chem 7: 12/29/18 05:22 12/30/18 06:10 Labs: Abnormal Lab Results - Last 24 Hours (Table) 12/30/18 Range/Units 06:10 Sodium 133 L (137-145) mmol/L Chloride 96 L (98-107) mmol/L BUN 55 H (7-17) mg/dL Creatinine 6.15 H (0.52-1.04) mg/dL Glucose 110 H (74-99) mg/dL Calcium 8.3 L (8.4-10.2) mg/dL Assessment and Plan Plan: -Acute hypoxic respiratory failure can secondary to congestive heart failure chronic diastolic dysfunction with acute exacerbation patient's Lasix is being t emporally held because of hypotension although doesn't urinate much. may not be helpful patient will undergo peritoneal dialysis and nephrology is following the patient -Atrial fibrillation with rapid ventricular rate: Patient is off Cardizem and patient is on amiodarone now, metoprolol is being held because of hypotension Eliquis cardiology is following the patient -Mild elevated troponin secondary to end-stage renal disease ration is on peritoneal dialysis -Hyponatremia probably hypervolemic hyponatremia expected to be corrected with her peritoneal dialysis -Elevated MCV: B12 levels are within normal limits -Sick euthyroid syndrome TSH need to be repeated in about a month -Hypertension -And seasonal disease probably hypertensive nephrosclerosis on peritoneal dialysis -Hyperlipidemia -COPD without any significant exacerbation -Prior history of TIA in the past -Metabolic bone disease from end-stage renal disease continue phosphate binders
[2018-12-30] MEDS ORDERED: MIDODRINE 5 MG TAB PO STA (11:17)
[2018-12-30] MEDS: DIALYSIS (PERIT 2.5%) 2,000 ML 50 G/2,000 ML BAG INTRAPERIT SCH ×3 (11:57→23:49)
[2018-12-30] MEDS: AMIODARONE 300 MG in DEXTROSE 5% IN WATER 250 ML IV SCH ×4 (11:58→23:06)
--- NOTE | 2018-12-30 16:49 | PN ---
PROGRESS NOTE Patient is seen for followup for end-stage renal disease. She was maintained on 4.25% exchanges q.4 hours with significant ultrafiltration of about 1 L with each exchange. Last night the patient became hypotensive. She also went into atrial fibrillation with RVR. Her dialysis was held this morning, as her blood pressure was significantly low with systolic in the 80s. The Cardizem was switched to IV amiodarone. Patient states this morning she is mildly short of breath. She denies any chest pain. She denies significant palpitations. Heart rate was still elevated about 150. Blood pressure was 83/58. Patient is afebrile. EXAMINATION OF THE HEART: S1 and S2. EXAMINATION OF LUNGS: Bilateral breath sounds are heard. Decreased breath sounds at the bases. Patient is tachycardic. ABDOMEN: Soft, non-tender. Examination of lower extremities shows no evidence of edema. AIRLINE DISPATCHER exam is grossly intact. Labs show sodium 133, potassium 3.8. Hemoglobin was 9.1 yesterday. ASSESSMENT: 1. End-stage renal disease, on peritoneal dialysis. I will switch the next exchange to 2.5% solution to avoid large ultrafiltration. I will also give her a dose of midodrine just before the exchange. Continue to hold off on all antihypertensive medications for now. 2. Hypotension secondary to atrial fibrillation as well as recent correction of volume overload. The patient will be given a dose of midodrine and we will hold off on all antihypertensive medications. 3. Bilateral renal artery stenosis, status post one dose of lisinopril yesterday, which has helped with the blood pressure, and it is currently significantly low. 4. Chronic kidney disease mineral bone disorder. 5. Atrial fibrillation with rapid ventricular response, maintained on amiodarone IV. 6. Severe cardiomyopathy; ejection fraction of about 20%. PLAN: Change next exchange to 2.5% solution. Midodrine x1. Hold off on all antihypertensive medications. Follow with Cardiology regarding treatment of atrial fibrillation with RVR. YRN / TRINAN: [id number] /
[2018-12-30] MEDS: IPRATROPIUM-ALBUTEROL 3 ML NEB INHALATION PRN (19:57)
[2018-12-30] MEDS: ALPRAZolam 0.5 MG TAB PO PRN (23:56)
[2018-12-31] MEDS: DIALYSIS (PERIT 2.5%) 2,000 ML 50 G/2,000 ML BAG INTRAPERIT SCH ×3 (05:27→22:04)
[2018-12-31 07:07] LABS: Calcium 8.5 mg/dL (8.4-10.2); Potassium 4.3 mmol/L (3.5-5.1)
[2018-12-31] MEDS: IPRATROPIUM-ALBUTEROL 3 ML NEB INHALATION PRN (07:41)
[2018-12-31] MEDS: BUDESONIDE 0.5 MG/2 ML NEBU INHALATION SCH ×2 (07:42→20:21)
[2018-12-31] MEDS: METOPROLOL TARTRATE 25 MG TAB PO SCH ×2 (09:35→20:52)
[2018-12-31] MEDS: APIXABAN 2.5 MG TABLET PO SCH ×2 (09:35→20:52)
[2018-12-31] MEDS: ALPRAZolam 0.5 MG TAB PO PRN ×2 (09:36→22:37)
--- NOTE | 2018-12-31 10:01 | P.PN ---
Subjective Progress Note Date: 12/31/18 Principal diagnosis: Paroxysmal atrial fibrillation/congestive heart failure secondary to systolic dysfunction This is a pleasant 73-year-old female patient with a past medical history significant for end stage renal disease on dialysis, paroxysmal atrial fibrillation, hypertension, dyslipidemia, and history of TIA, was admitted to the hospital with atrial fibrillation with RVR along with congestive heart failure exacerbation. She underwent an echocardiogram which revealed severe cardiomyopathy with EF around 20% with mild MR and mild TR. On follow-up with the patient today, 12/31/2018, the patient continues to be not feeling well overall. She still short of breath. On examination, she still have bilateral expiratory wheezing. The pressure has improved a little bit after we decrease the dose of metoprolol yesterday and after we DC the IV Lasix. She did have dialysis earlier today. She is on amiodarone IV which I am going to switch her to amiodarone by mouth pH she continues to be in atrial fibrillation. Objective - Vital Signs Vital signs: Vital Signs Temp 97.5 F L 12/31/18 05:00 Pulse 96 12/31/18 07:53 Resp 20 12/31/18 05:00 BP 103/80 12/31/18 05:00 Pulse Ox 99 12/31/18 05:00 Intake & Output 12/30/18 12/31/18 12/31/18 18:59 06:59 18:59 Intake Total 430 730 360 Output Total 0 0 Balance 430 730 360 Weight 54.7 kg Intake: Intake, IV Titration 250 Amount Amiodarone 300 mg In 250 Dextrose 5% in Water 250 ml @ 0.5 MG/MIN 25 mls/hr IV .Q10H [facility] Rx#: [id number] Oral 430 480 360 Output: Urine 0 0 Other: Voiding Method Bedside Commode Bedside Commode # Voids 1 # Bowel Movements 1 - Constitutional General appearance: Present: no acute distress - Respiratory Respiratory: bilateral: wheezing - Cardiovascular Rhythm: regular Heart sounds: normal: S1, S2 - Labs CBC & Chem 7: 12/29/18 05:22 12/31/18 06:38 Labs: Abnormal Lab Results - Last 24 Hours (Table) 12/31/18 Range/Units 06:38 Sodium 129 L (137-145) mmol/L Chloride 92 L (98-107) mmol/L BUN 65 H (7-17) mg/dL Creatinine 6.43 H (0.52-1.04) mg/dL Glucose 104 H (74-99) mg/dL Assessment and Plan Assessment: Assessment #1 atrial fibrillation with RVR. The patient converted to normal sinus mechanism. #2 congestive heart failure exacerbation secondary to systolic dysfunction #3 severe cardiomyopathy. The ejection fraction is 20% #4 into stage renal disease on hemodialysis #5 multiple comorbid conditions including hypertension and dyslipidemia Plan #1 DC amiodarone IV and start the patient on amiodarone by mouth #2 continue oral anticoagulation #3 continue the current dose of metoprolol #4 follow-up with the patient
[2018-12-31] MEDS: predniSONE 20 MG TAB PO SCH (10:15)
[2018-12-31] MEDS: AMIODARONE 200 MG TAB PO SCH ×2 (10:16→20:52)
[2018-12-31] MEDS ORDERED: MIDODRINE 5 MG TAB PO ONE ×2 (11:45→18:10)
--- NOTE | 2018-12-31 14:24 | P.PN ---
Subjective 71-year-old female admitted for atrial fibrillation and can start failure chronic diastolic dysfunction with acute exacerbation patient is sinus rhythm at this time patient is still apparent colitis of thousand doesn't use any oxygen at home will taper down the oxygen continue with IV Lasix and patient is undergoing CPPD patient doesn't urinate much so Lasix may not be beneficial. Patient is requesting for home oxygen patient will be evaluated for home oxygen at the time of discharge.shortness of breath did not improve significantly 12/30/2018 Patient continued to have respiratory issues still short of breath patient heart rate went into 150s and patient is not feeling well. Patient is not much volume overloaded better blood pressure is low because of which Lasix is being held at this time but patient will go into heart failure because of A. fib. She was started on amiodarone. 12/31/2018 Patient the has some wheezing on exam because of which are started on prednisone patient was on inhaled steroids inhaled steroids without any significant improvement. Patient the heart rate is still high and patient is still complaining of shortness of breath. Constitutional: Denied any fatigue denied any fever. Cardio vascular: denied any chest pain, palpitations Gastrointestinal denied any nausea vomiting Pulmonary: as mentioned in the interval history Neurologic denied any new focal deficits All inpatient medications were reviewed and appropriate changes in these medications as dictated in the interval history and assessment and plan. Objective - Vital Signs Vital signs: Vital Signs Temp 98.2 F 12/31/18 13:10 Pulse 73 12/31/18 13:10 Resp 16 12/31/18 13:10 BP 113/65 12/31/18 13:10 Pulse Ox 100 12/31/18 13:10 Intake & Output 12/30/18 12/31/18 12/31/18 18:59 06:59 18:59 Intake Total 430 730 920 Output Total 0 0 Balance 430 730 920 Weight 54.7 kg Intake: Intake, IV Titration 250 Amount Amiodarone 300 mg In 250 Dextrose 5% in Water 250 ml @ 0.5 MG/MIN 25 mls/hr IV .Q10H [facility] Rx#: [id number] Oral 430 480 920 Output: Urine 0 0 Other: Voiding Method Bedside Commode Bedside Commode # Voids 1 # Bowel Movements 1 - Exam PHYSICAL EXAMINATION: GENERAL: The patient is alert and oriented x3, not in any acute distress. Well developed, well nourished. HEENT: Pupils are round and equally reacting to light. EOMI. No scleral icterus. No conjunctival pallor. Normocephalic, atraumatic. No pharyngeal erythema. No thyromegaly. CARDIOVASCULAR: S1 and S2 present. No murmurs, rubs, or gallops. Tachycardic irregularly irregular rhythm PULMONARY: Chest is clear to auscultation, no wheezing or crackles. ABDOMEN: Soft, nontender, nondistended, normoactive bowel sounds. No palpable organomegaly. MUSCULOSKELETAL: No joint swelling or deformity. EXTREMITIES: No cyanosis, clubbing, or pedal edema. NEUROLOGICAL: Gross neurological examination did not reveal any focal deficits. SKIN: No rashes. - Labs CBC & Chem 7: 12/29/18 05:22 12/31/18 06:38 Labs: Abnormal Lab Results - Last 24 Hours (Table) 12/31/18 Range/Units 06:38 Sodium 129 L (137-145) mmol/L Chloride 92 L (98-107) mmol/L BUN 65 H (7-17) mg/dL Creatinine 6.43 H (0.52-1.04) mg/dL Glucose 104 H (74-99) mg/dL Assessment and Plan Plan: -Acute hypoxic respiratory failure can secondary to congestive heart failure chronic diastolic dysfunction with acute exacerbation patient's Lasix is being temporally held because of hypotension although doesn't urinate much. may not be helpful patient will undergo peritoneal dialysis and nephrology is following the patient -Atrial fibrillation with rapid ventricular rate: Patient is off Cardizem and patient is on amiodarone now, metoprolol is being held because of hypotension Eliquis cardiology is following the patient -Mild elevated troponin secondary to end-stage renal disease ration is on peritoneal dialysis -Hyponatremia probably hypervolemic hyponatremia expected to be corrected with her peritoneal dialysis -Elevated MCV: B12 levels are within normal limits -Sick euthyroid syndrome TSH need to be repeated in about a month -Hypertension -And seasonal disease probably hypertensive nephrosclerosis on peritoneal dialysis -Hyperlipidemia -COPD with acute exacerbation patient was started on systemic steroids inhalational treatments will be continued. -Prior history of TIA in the past -Metabolic bone disease from end-stage renal disease continue phosphate binders
--- NOTE | 2018-12-31 18:02 | PN ---
PROGRESS NOTE Patient is seen for followup for end-stage renal disease. She was admitted with fluid overload and atrial fibrillation with RVR. Amiodarone drip has been discontinued and switched to p.o. amiodarone. Her fluid status is slightly improved. Patient had been getting about a liter of ultrafiltration with 4.25% exchanges. Yesterday her blood pressure had dropped significantly and therefore the fluid concentration was changed to 2.5% exchanges q.6 hours. The patient continues to get about 800 mL of fluid removal with the 2.5% exchanges, which we will continue for now. On examination today, blood pressure was 104/62, heart rate 115 per minute. She is afebrile. EXAMINATION OF THE HEART: S1 and S2. EXAMINATION OF LUNGS: Bilateral breath sounds are heard. ABDOMEN: Soft, non-tender. Examination of lower extremities shows no evidence of edema. AGRICULTURAL ECONOMIST exam is grossly intact. Labs show sodium 129, potassium 4.3. ASSESSMENT: 1. End-stage renal disease, on peritoneal dialysis. Continue with the 2.5% solution. I will add 4.25% solutions in between to alternate with 2.5 and 4.25%, as blood pressure has stabilized and patient continues to be hypervolemic. We can also use midodrine if her blood pressure is significantly low. I will hold off on all other antihypertensive medications except the Lopressor, which is for rate control mainly. 2. Atrial fibrillation with rapid ventricular response, now with controlled ventricular response. 3. Congestive heart failure, fluid overload, slowly improving. 4. Hypertension. Initially blood pressure was significantly uncontrolled. Patient has underlying bilateral renal artery stenosis which results in episodes of flash pulmonary edema. At this time the blood pressure is low. All medications, including ZO inhibitors, are on hold, and patient has been requiring midodrine on and off. 5. Hypervolemic hyponatremia. Expect improvement with improving volume status. PLAN: Change dialysis to 4.25% exchanges alternating with 2.5% solutions. Use midodrine if needed and repeat labs in a.m. MMRODGERL / TRINAN: [id number] /
[2018-12-31] MEDS: DIALYSIS (PERIT 4.25%) 2000 ML 85 G/2,000 ML BAG INTRAPERIT SCH (18:20)
[2019-01-01] MEDS: DIALYSIS (PERIT 4.25%) 2000 ML 85 G/2,000 ML BAG INTRAPERIT SCH ×2 (06:03→18:02)
[2019-01-01 06:44] LABS: Anisocytosis Slight; HCT 32.7 % (34.0-46.0); HGB 10.4 gm/dL (11.4-16.0); MCHC 31.9 g/dL (31.0-37.0); MCV 100.4 fL (80.0-100.0); Macrocytosis Slight; Mean Platelet Volume 7.1; Platelet Count 385 k/uL (150-450); RBC 3.26 m/uL (3.80-5.40); RDW 17.3 % (11.5-15.5); WBC 14.2 k/uL (3.8-10.6)
[2019-01-01 06:55] LABS: Calcium 8.4 mg/dL (8.4-10.2); Potassium 4.8 mmol/L (3.5-5.1)
[2019-01-01] MEDS: IPRATROPIUM-ALBUTEROL 3 ML NEB INHALATION PRN (08:07)
[2019-01-01] MEDS: BUDESONIDE 0.5 MG/2 ML NEBU INHALATION SCH ×2 (08:08→20:25)
[2019-01-01] MEDS ORDERED: MIDODRINE 5 MG TAB PO PRN (09:15)
[2019-01-01] MEDS: AMIODARONE 200 MG TAB PO SCH ×2 (09:16→19:49)
[2019-01-01] MEDS: APIXABAN 2.5 MG TABLET PO SCH ×2 (09:16→19:49)
[2019-01-01] MEDS: METOPROLOL TARTRATE 25 MG TAB PO SCH ×2 (09:16→19:49)
[2019-01-01] MEDS: predniSONE 20 MG TAB PO SCH (09:16)
--- NOTE | 2019-01-01 09:43 | P.PN ---
Subjective Patient is seen in follow for end-stage renal disease. She is maintained on peritoneal dialysis. Dyspnea is improved. Currently sitting up in chair. Oral intake is fair. Vital signs are stable. General: The patient appeared well nourished and normally developed. HEENT: Head exam is unremarkable. Neck is without jugular venous distension. LUNGS: Lungs are clear to auscultation and percussion. Breath sounds decreased. HEART: Rate and Rhythm are regular. First and second heart sounds normal. No murmurs, rubs or gallops. ABDOMEN: Abdominal exam reveals normal bowel sounds. Non-tender and non- distended. No evidence of peritonitis. EXTREMITITES: No clubbing, cyanosis, or edema. Objective - Vital Signs Vital signs: Vital Signs Temp 97.7 F 01/01/19 09:00 Pulse 70 01/01/19 09:00 Resp 18 01/01/19 09:00 BP 118/67 01/01/19 09:00 Pulse Ox 100 01/01/19 09:00 Intake & Output 12/31/18 01/01/19 01/01/19 18:59 06:59 18:59 Intake Total 1630 10 0 Balance 1630 10 0 Weight 55.1 kg Intake: IV 10 0.9 10 Oral 1630 0 Other: Voiding Method Bedside Commode # Bowel Movements 1 - Labs CBC & Chem 7: 01/01/19 05:56 01/01/19 05:56 Labs: Abnormal Lab Results - Last 24 Hours (Table) 01/01/19 01/01/19 Range/Units 05:56 05:56 WBC 14.2 H (3.8-10.6) k/uL RBC 3.26 L (3.80-5.40) m/uL Hgb 10.4 L (11.4-16.0) gm/dL Hct 32.7 L (34.0-46.0) % MCV 100.4 H (80.0-100.0) fL RDW 17.3 H (11.5-15.5) % Sodium 128 L (137-145) mmol/L Chloride 91 L (98-107) mmol/L BUN 79 H (7-17) mg/dL Creatinine 6.79 H (0.52-1.04) mg/dL Assessment and Plan Plan: Assessment: 1. End-stage renal disease maintained on peritoneal dialysis. 2. Dyspnea secondary to volume overload. 3. A. fib with RVR. Currently on Lopressor. She is also on Eliquis. Cardiology following. 4. Hypertension with chronic kidney disease. Patient also has history of renal artery stenosis. Controlled. 5. Acute on chronic diastolic CHF. 6. Metabolic acidosis secondary to chronic kidney disease. Better. 7. Hyponatremia secondary to chronic kidney disease. Currently hypervolemic. 8. Anemia of chronic kidney disease. High ferritin levels noted. Plan: Maintain PD exchanges with 2 L every 4 hours with alternating 4.25% and 2.5% solution. Midodrine 5 mg 3 times daily as needed for systolic blood pressure less than 100.
--- NOTE | 2019-01-01 10:37 | P.PN ---
Subjective 71-year-old female admitted for atrial fibrillation and can start failure chronic diastolic dysfunction with acute exacerbation patient is sinus rhythm at this time patient is still apparent colitis of thousand doesn't use any oxygen at home will taper down the oxygen continue with IV Lasix and patient is undergoing CPPD patient doesn't urinate much so Lasix may not be beneficial. Patient is requesting for home oxygen patient will be evaluated for home oxygen at the time of discharge.shortness of breath did not improve significantly 12/30/2018 Patient continued to have respiratory issues still short of breath patient heart rate went into 150s and patient is not feeling well. Patient is not much volume overloaded better blood pressure is low because of which Lasix is being held at this time but patient will go into heart failure because of A. fib. She was started on amiodarone. 12/31/2018 Patient the has some wheezing on exam because of which are started on prednisone patient was on inhaled steroids inhaled steroids without any significant improvement. Patient the heart rate is still high and patient is still complaining of shortness of breath. 01/01/2019 Patient is doing much better heart rate is well controlled at this time patient respiratory status improved still has some wheezing on exam Constitutional: Denied any fatigue denied any fever. Cardio vascular: denied any chest pain, palpitations Gastrointestinal denied any nausea vomiting Pulmonary: as mentioned in the interval history Neurologic denied any new focal deficits All inpatient medications were reviewed and appropriate changes in these medications as dictated in the interval history and assessment and plan. Objective - Vital Signs Vital signs: Vital Signs Temp 97.7 F 01/01/19 09:00 Pulse 70 01/01/19 09:00 Resp 18 01/01/19 09:00 BP 118/67 01/01/19 09:00 Pulse Ox 100 01/01/19 09:00 Intake & Output 12/31/18 01/01/19 01/01/19 18:59 06:59 18:59 Intake Total 1630 10 0 Balance 1630 10 0 Weight 55.1 kg Intake: IV 10 0.9 10 Oral 1630 0 Other: Voiding Method Bedside Commode Bedside Commode # Bowel Movements 1 - Exam PHYSICAL EXAMINATION: GENERAL: The patient is alert and oriented x3, not in any acute distress. Well developed, well nourished. HEENT: Pupils are round and equally reacting to light. EOMI. No scleral icterus. No conjunctival pallor. Normocephalic, atraumatic. No pharyngeal erythema. No thyromegaly. CARDIOVASCULAR: S1 and S2 present. No murmurs, rubs, or gallops. Tachycardic irregularly irregular rhythm PULMONARY: does have good air entry into bilateral lung caceres does have some wheezing improved compared to yesterday ABDOMEN: Soft, nontender, nondistended, normoactive bowel sounds. No palpable organomegaly. MUSCULOSKELETAL: No joint swelling or deformity. EXTREMITIES: No cyanosis, clubbing, or pedal edema. NEUROLOGICAL: Gross neurological examination did not reveal any focal deficits. SKIN: No rashes. - Labs CBC & Chem 7: 01/01/19 05:56 01/01/19 05:56 Labs: Abnormal Lab Results - Last 24 Hours (Table) 01/01/19 01/01/19 Range/Units 05:56 05:56 WBC 14.2 H (3.8-10.6) k/uL RBC 3.26 L (3.80-5.40) m/uL Hgb 10.4 L (11.4-16.0) gm/dL Hct 32.7 L (34.0-46.0) % MCV 100.4 H (80.0-100.0) fL RDW 17.3 H (11.5-15.5) % Sodium 128 L (137-145) mmol/L Chloride 91 L (98-107) mmol/L BUN 79 H (7-17) mg/dL Creatinine 6.79 H (0.52-1.04) mg/dL Assessment and Plan Plan: -Acute hypoxic respiratory failure can secondary to congestive heart failure chronic diastolic dysfunction with acute exacerbation patient's Lasix is being temporally held because of hypotension although doesn't urinate much. may not be helpful patient will undergo peritoneal dialysis and nephrology is following the patient -Atrial fibrillation with rapid ventricular rate: patient is presently on metoprolol an amiodarone and patient is rate controlled at this time. -Mild elevated troponin secondary to end-stage renal disease ration is on peritoneal dialysis -Hyponatremia probably hypervolemic hyponatremia expected to be corrected with her peritoneal dialysis -Elevated MCV: B12 levels are within normal limits -Sick euthyroid syndrome TSH need to be repeated in about a month -Hypertension -And seasonal disease probably hypertensive nephrosclerosis on peritoneal dialysis -Hyperlipidemia -COPD with acute exacerbation patient was started on systemic steroids inhalational treatments will be continued. -Prior history of TIA in the past -Metabolic bone disease from end-stage renal disease continue phosphate binders
[2019-01-01] MEDS: DIALYSIS (PERIT 2.5%) 2,000 ML 50 G/2,000 ML BAG INTRAPERIT SCH (12:22)
--- NOTE | 2019-01-01 15:15 | P.PN ---
Subjective This is Kimberly Tierney PA-C dictating a progress note on this patient The patient was interviewed and examined by me as well as by Dr. Foster Case discussed with Dr. Foster and he agrees with the plan of care IMPRESSION / ASSESSMENT: Atrial fibrillation with RVR, converted to sinus rhythm on amiodarone, currently in sinus rhythm Acute on chronic systolic heart failure, symptoms improving Severe cardiomyopathy, EF 20% ESRD on dialysis Hypertension, blood pressure stable Dyslipidemia PLAN: Continue current medication regimen Optimize heart failure medications as tolerated HPI/interval history Patient is a 73-year-old female with a past medical history of ESRD on dialysis, paroxysmal atrial fibrillation, hypertension, dyslipidemia who is admitted with atrial fibrillation with RVR and CHF exacerbation. Upon admission, echocardi ogram showed severe cardiomyopathy with EF around 20%. She was started on IV amiodarone and converted to oral amiodarone yesterday. Her IV Lasix was discontinued and her dose of metoprolol was decreased due to hypotension. Her blood pressure has been fairly stable since. Patient seen and examined resting comfortably in bed. States her breathing has improved somewhat but she is still short of breath. She is also very tired. Denies chest pain or palpitations. EXAMINATION Temperature 97.7F, pulse 70, respirations 18, blood pressure 118/67, oxygen saturation 100% on 3 L nasal cannula Patient seen and examined resting in bed, appears comfortable, in no acute distress distress Lungs with scattered rhonchi and wheezing bilaterally Heart is regular, no murmurs appreciated No lower extremity edema No elevated JVD noted REVIEW OF LABS, ECG WBC 14.2, hemoglobin 10.4, platelets 385, potassium 4.8, BUN 79, creatinine 6.79 Telemetry revealed patient has been in sinus rhythm since 4 AM Objective - Vital Signs Vital signs: Vital Signs Temp 97.7 F 01/01/19 09:00 Pulse 68 01/01/19 11:45 Resp 16 01/01/19 11:45 BP 135/79 01/01/19 11:45 Pulse Ox 100 01/01/19 11:45 Intake & Output 12/31/18 01/01/19 01/01/19 18:59 06:59 18:59 Intake Total 1630 10 240 Balance 1630 10 240 Weight 55.1 kg Intake: IV 10 0.9 10 Oral 1630 240 Other: Voiding Method Bedside Commode Bedside Commode # Bowel Movements 1 - Labs CBC & Chem 7: 01/01/19 05:56 01/01/19 05:56 Labs: Abnormal Lab Results - Last 24 Hours (Table) 01/01/19 01/01/19 Range/Units 05:56 05:56 WBC 14.2 H (3.8-10.6) k/uL RBC 3.26 L (3.80-5.40) m/uL Hgb 10.4 L (11.4-16.0) gm/dL Hct 32.7 L (34.0-46.0) % MCV 100.4 H (80.0-100.0) fL RDW 17.3 H (11.5-15.5) % Sodium 128 L (137-145) mmol/L Chloride 91 L (98-107) mmol/L BUN 79 H (7-17) mg/dL Creatinine 6.79 H (0.52-1.04) mg/dL
[2019-01-02] MEDS: DIALYSIS (PERIT 2.5%) 2,000 ML 50 G/2,000 ML BAG INTRAPERIT SCH ×2 (00:29→12:00)
[2019-01-02] MEDS: ALPRAZolam 0.5 MG TAB PO PRN (01:05)
[2019-01-02] MEDS: DIALYSIS (PERIT 4.25%) 2000 ML 85 G/2,000 ML BAG INTRAPERIT SCH ×2 (06:13→18:15)
[2019-01-02 06:41] LABS: Calcium 8.9 mg/dL (8.4-10.2); Potassium 4.9 mmol/L (3.5-5.1)
[2019-01-02] MEDS: AMIODARONE 200 MG TAB PO SCH ×2 (08:33→20:19)
[2019-01-02] MEDS: METOPROLOL TARTRATE 25 MG TAB PO SCH ×2 (08:33→20:19)
[2019-01-02] MEDS: APIXABAN 2.5 MG TABLET PO SCH ×2 (08:33→20:19)
[2019-01-02] MEDS: predniSONE 20 MG TAB PO SCH (08:33)
[2019-01-02] MEDS: BUDESONIDE 0.5 MG/2 ML NEBU INHALATION SCH ×2 (08:38→20:56)
--- NOTE | 2019-01-02 09:31 | P.PN ---
Subjective Patient is seen in follow for end-stage renal disease. She is maintained on peritoneal dialysis. Dyspnea is improved. She is maintaining net negative fluid balance with current exchanges. Oral intake is fair. Went into A. fib with RVR this morning but is now back in sinus rhythm. Vital signs are stable. General: The patient appeared well nourished and normally developed. HEENT: Head exam is unremarkable. Neck is without jugular venous distension. LUNGS: Lungs are clear to auscultation and percussion. Breath sounds decreased. HEART: Rate and Rhythm are regular. First and second heart sounds normal. No murmurs, rubs or gallops. ABDOMEN: Abdominal exam reveals normal bowel sounds. Non-tender and non- distended. No evidence of peritonitis. EXTREMITITES: No clubbing, cyanosis, or edema. Objective - Vital Signs Vital signs: Vital Signs Temp 98.2 F 01/02/19 07:30 Pulse 70 01/02/19 08:47 Resp 18 01/02/19 07:30 BP 132/90 01/02/19 07:30 Pulse Ox 98 01/02/19 07:30 Intake & Output 01/01/19 01/02/19 01/02/19 18:59 06:59 18:59 Intake Total 480 240 Balance 480 240 Weight 54.6 kg Intake: Oral 480 240 Other: Voiding Method Bedside Commode Bedside Commode # Bowel Movements 1 1 - Labs CBC & Chem 7: 01/01/19 05:56 01/02/19 05:48 Labs: Abnormal Lab Results - Last 24 Hours (Table) 01/02/19 Range/Units 05:48 Sodium 129 L (137-145) mmol/L Chloride 90 L (98-107) mmol/L BUN 77 H (7-17) mg/dL Creatinine 7.64 H* (0.52-1.04) mg/dL Assessment and Plan Plan: Assessment: 1. End-stage renal disease maintained on peritoneal dialysis. 2. Dyspnea secondary to volume overload. Improving. 3. A. fib with RVR. Currently on Lopressor. She is also on Eliquis. Card iology following. 4. Hypertension with chronic kidney disease. Patient also has history of renal artery stenosis. Controlled. 5. Acute on chronic diastolic CHF. 6. Metabolic acidosis secondary to chronic kidney disease. 7. Hyponatremia secondary to chronic kidney disease. Currently hypervolemic. Slightly better. 8. Anemia of chronic kidney disease. High ferritin levels noted. Plan: Maintain PD exchanges with 2 L every 4 hours with alternating 4.25% and 2.5% solution. Midodrine 5 mg 3 times daily as needed for systolic blood pressure less than 100.
--- NOTE | 2019-01-02 10:16 | XR ---
EXAMINATION TYPE: XR chest 1V DATE OF EXAM: 01/02/2019 HISTORY: Chf. REFERENCE: Previous study dated 12/28/2018. FINDINGS: Heart is mildly enlarged. Lungs are clear. Pleural spaces are clear. IMPRESSION: MILD CARDIOMEGALY.
--- NOTE | 2019-01-02 12:39 | P.PN ---
Subjective 71-year-old female admitted for atrial fibrillation and can start failure chronic diastolic dysfunction with acute exacerbation patient is sinus rhythm at this time patient is still apparent colitis of thousand doesn't use any oxygen at home will taper down the oxygen continue with IV Lasix and patient is undergoing CPPD patient doesn't urinate much so Lasix may not be beneficial. Patient is requesting for home oxygen patient will be evaluated for home oxygen at the time of discharge.shortness of breath did not improve significantly 12/30/2018 Patient continued to have respiratory issues still short of breath patient heart rate went into 150s and patient is not feeling well. Patient is not much volume overloaded better blood pressure is low because of which Lasix is being held at this time but patient will go into heart failure because of A. fib. She was started on amiodarone. 12/31/2018 Patient the has some wheezing on exam because of which are started on prednisone patient was on inhaled steroids inhaled steroids without any significant improvement. Patient the heart rate is still high and patient is still complaining of shortness of breath. 01/01/2019 Patient is doing much better heart rate is well controlled at this time patient respiratory status improved still has some wheezing on exam 01/02/2019 Patient's wheezing improved heart rate is fairly well controlled except for an episode of tachycardia. Constitutional: Denied any fatigue denied any fever. Cardio vascular: denied any chest pain, palpitations Gastrointestinal denied any nausea vomiting Pulmonary: as mentioned in the interval history Neurologic denied any new focal deficits All inpatient medications were reviewed and appropriate changes in these medications as dictated in the interval history and assessment and plan. Objective - Vital Signs Vital signs: Vital Signs Temp 98.2 F 01/02/19 07:30 Pulse 67 01/02/19 11:10 Resp 16 01/02/19 11:10 BP 126/68 01/02/19 11:10 Pulse Ox 100 01/02/19 11:10 Intake & Output 01/01/19 01/02/19 01/02/19 18:59 06:59 18:59 Intake Total 480 240 Balance 480 240 Weight 54.6 kg Intake: Oral 480 240 Other: Voiding Method Bedside Commode Bedside Commode Bedside Commode # Bowel Movements 1 1 1 - Exam PHYSICAL EXAMINATION: GENERAL: The patient is alert and oriented x3, not in any acute distress. Well developed, well nourished. HEENT: Pupils are round and equally reacting to light. EOMI. No scleral icterus. No conjunctival pallor. Normocephalic, atraumatic. No pharyngeal erythema. No thyromegaly. CARDIOVASCULAR: S1 and S2 present. No murmurs, rubs, or gallops. Tachycardic irregularly irregular rhythm PULMONARY: does have good air entry into bilateral lung caceres does have some wheezing improved compared to yesterday ABDOMEN: Soft, nontender, nondistended, normoactive bowel sounds. No palpable organomegaly. MUSCULOSKELETAL: No joint swelling or deformity. EXTREMITIES: No cyanosis, clubbing, or pedal edema. NEUROLOGICAL: Gross neurological examination did not reveal any focal deficits. SKIN: No rashes. - Labs CBC & Chem 7: 01/01/19 05:56 01/02/19 05:48 Labs: Abnormal Lab Results - Last 24 Hours (Table) 01/02/19 Range/Units 05:48 Sodium 129 L (137-145) mmol/L Chloride 90 L (98-107) mmol/L BUN 77 H (7-17) mg/dL Creatinine 7.64 H* (0.52-1.04) mg/dL Assessment and Plan Plan: -Acute hypoxic respiratory failure can secondary to congestive heart failure chronic diastolic dysfunction with acute exacerbation patient's Lasix is being temporally held because of hypotension although doesn't urinate much. may not be helpful patient will undergo peritoneal dialysis and nephrology is following the patient -Atrial fibrillation with rapid ventricular rate: patient is presently on metopr olol an amiodarone and patient is rate controlled at this time. -Mild elevated troponin secondary to end-stage renal disease ration is on peritoneal dialysis -Hyponatremia probably hypervolemic hyponatremia expected to be corrected with her peritoneal dialysis -Elevated MCV: B12 levels are within normal limits -Sick euthyroid syndrome TSH need to be repeated in about a month -Hypertension -And seasonal disease probably hypertensive nephrosclerosis on peritoneal dialysis -Hyperlipidemia -COPD with acute exacerbation patient was started on systemic steroids inhalational treatments will be continued. -Prior history of TIA in the past -Metabolic bone disease from end-stage renal disease continue phosphate binders
--- NOTE | 2019-01-02 13:56 | P.PN ---
Subjective This is Kimberly Tierney PA-C dictating a progress note on this patient The patient was interviewed and examined by me as well as by Dr. Foster Case discussed with Dr. Foster and he agrees with the plan of care IMPRESSION / ASSESSMENT: Atrial fibrillation with RVR, had a brief episode of atrial fibrillation with RVR overnight, currently in sinus rhythm Acute on chronic systolic heart failure, symptoms stable Severe cardiomyopathy, EF 20% ESRD on peritoneal dialysis Hypertension, blood pressure stable Dyslipidemia PLAN: Continue amiodarone Hold off on increasing beta blockers due to hypotension with increasing beta blockers in the past HPI/interval history Patient is a 73-year-old female with a past medical history of ESRD on dialysis, paroxysmal atrial fibrillation, hypertension, dyslipidemia who is admitted with atrial fibrillation with RVR and CHF exacerbation. Upon admission, echocardiogram showed severe cardiomyopathy with EF around 20%. She was started amiodarone.. Her IV Lasix was discontinued and her dose of metoprolol was decreased due to hypotension. Her blood pressure has remained fairly stable. Telemetry revealed 1 short episode of atrial fibrillation with RVR into the 130s overnight, lasted about 10 minutes and converted. Has been in sinus rhythm since. Patient seen and examined resting comfortably in bed. States her breathing has improved but she is still a little short of breath. Denies chest pain or palpitations, dizziness. EXAMINATION Patient is afebrile, pulse 67, respirations 16, blood pressure 126/68, oxygen saturation 100% on 2 L nasal cannula Patient seen and examined resting in bed, appears comfortable, in no acute distress Lungs diminished at the bases with scattered rhonchi and wheezing bilaterally Heart is regular, normal S1-S2, no murmurs appreciated No lower extremity edema No elevated JVD noted REVIEW OF LABS, ECG WBC 14.2, hemoglobin 10.4, potassium 4.9, BUN 77, creatinine 7.64 Chest x-ray showed lungs clear Objective - Vital Signs Vital signs: Vital Signs Temp 98.2 F 01/02/19 07:30 Pulse 67 01/02/19 11:10 Resp 16 01/02/19 11:10 BP 126/68 01/02/19 11:10 Pulse Ox 100 01/02/19 11:10 Intake & Output 01/01/19 01/02/19 01/02/19 18:59 06:59 18:59 Intake Total 480 240 Balance 480 240 Weight 54.6 kg Intake: Oral 480 240 Other: Voiding Method Bedside Commode Bedside Commode Bedside Commode # Bowel Movements 1 1 1 - Labs CBC & Chem 7: 01/01/19 05:56 01/02/19 05:48 Labs: Abnormal Lab Results - Last 24 Hours (Table) 01/02/19 Range/Units 05:48 Sodium 129 L (137-145) mmol/L Chloride 90 L (98-107) mmol/L BUN 77 H (7-17) mg/dL Creatinine 7.64 H* (0.52-1.04) mg/dL
[2019-01-02] MEDS: IPRATROPIUM-ALBUTEROL 3 ML NEB INHALATION PRN (20:56)
[2019-01-03] MEDS: DIALYSIS (PERIT 2.5%) 2,000 ML 50 G/2,000 ML BAG INTRAPERIT SCH (00:12)
[2019-01-03] MEDS: DIALYSIS (PERIT 4.25%) 2000 ML 85 G/2,000 ML BAG INTRAPERIT SCH (06:21)
[2019-01-03 06:30] LABS: Calcium 9.1 mg/dL (8.4-10.2); Potassium 4.2 mmol/L (3.5-5.1)
[2019-01-03] MEDS: BUDESONIDE 0.5 MG/2 ML NEBU INHALATION SCH (07:30)
[2019-01-03] MEDS: IPRATROPIUM-ALBUTEROL 3 ML NEB INHALATION PRN (07:30)
[2019-01-03] MEDS: AMIODARONE 200 MG TAB PO SCH (08:40)
[2019-01-03] MEDS: METOPROLOL TARTRATE 25 MG TAB PO SCH (08:40)
[2019-01-03] MEDS: APIXABAN 2.5 MG TABLET PO SCH (08:40)
[2019-01-03] MEDS: predniSONE 20 MG TAB PO SCH (08:40)
--- NOTE | 2019-01-03 10:03 | P.PN ---
Subjective Patient is seen in follow for end-stage renal disease. She is maintained on peritoneal dialysis. Dyspnea is improved. She is maintaining net negative fluid balance with current exchanges. Oral intake is fair. Heart rate stable. Overall feels better today. Vital signs are stable. General: The patient appeared well nourished and normally developed. HEENT: Head exam is unremarkable. Neck is without jugular venous distension. LUNGS: Lungs are clear to auscultation and percussion. Breath sounds decreased. HEART: Rate and Rhythm are regular. First and second heart sounds normal. No murmurs, rubs or gallops. ABDOMEN: Abdominal exam reveals normal bowel sounds. Non-tender and non- distended. No evidence of peritonitis. EXTREMITITES: No clubbing, cyanosis, or edema. Objective - Vital Signs Vital signs: Vital Signs Temp 98.3 F 01/03/19 04:00 Pulse 84 01/03/19 07:51 Resp 16 01/03/19 04:00 BP 128/80 01/03/19 04:00 Pulse Ox 100 01/03/19 07:34 Intake & Output 01/02/19 01/03/19 01/03/19 18:59 06:59 18:59 Intake Total 240 240 Balance 240 240 Weight 54.4 kg Intake: Oral 240 240 Other: Voiding Method Bedside Commode Bedside Commode # Bowel Movements 1 2 - Labs CBC & Chem 7: 01/01/19 05:56 01/03/19 05:26 Labs: Abnormal Lab Results - Last 24 Hours (Table) 01/03/19 Range/Units 05:26 Sodium 131 L (137-145) mmol/L Chloride 91 L (98-107) mmol/L BUN 80 H (7-17) mg/dL Creatinine 7.71 H* (0.52-1.04) mg/dL Assessment and Plan Plan: Assessment: 1. End-stage renal disease maintained on peritoneal dialysis. 2. Dyspnea secondary to volume overload. Improving. 3. A. fib with RVR. Currently on Lopressor. She is also on Eliquis. Cardiology following. 4. Hypertension with chronic kidney disease. Patient also has history of renal artery stenosis. Controlled. 5. Acute on chronic diastolic CHF. 6. Metabolic acidosis secondary to chronic kidney disease. Better. 7. Hyponatremia secondary to chronic kidney disease. Currently hypervolemic. Better. 8. Anemia of chronic kidney disease. High ferritin levels noted. Plan: I will change PD exchanges to 2 L with 2.5% dextrose solution every 6 hours. Midodrine 5 mg 3 times daily as needed for systolic blood pressure less than 100.
[2019-01-03 10:05] VITALS: BMI 19.9
--- NOTE | 2019-01-03 11:02 | P.PN ---
Subjective Progress Note Date: 01/03/19 Patient is a 73-year-old female with a past medical history of ESRD on dialysis, paroxysmal atrial fibrillation, hypertension, dyslipidemia who is admitted with atrial fibrillation with RVR and CHF exacerbation. Upon admission, echocardiogram showed severe cardiomyopathy with EF around 20%. She was started amiodarone.. Her IV Lasix was discontinued and her dose of metoprolol was decreased due to hypotension. Her blood pressure has remained fairly stable. blood pressure 128/80 with a heart rate in the 70s ,she is in a normal sinus rhythm this morning overall she states that her breathing is significantly improved. sodium 131, potassium 4.2, BUN 80 and creatinine 7.7. Objective - Vital Signs Vital signs: Vital Signs Temp 98.2 F 01/03/19 08:00 Pulse 72 01/03/19 08:00 Resp 16 01/03/19 08:00 BP 89/64 01/03/19 08:00 Pulse Ox 99 01/03/19 08:00 Intake & Output 01/02/19 01/03/19 01/03/19 18:59 06:59 18:59 Intake Total 240 240 Balance 240 240 Weight 54.4 kg 54.4 kg Intake: Oral 240 240 Other: Voiding Method Bedside Commode Bedside Commode Bedside Commode # Bowel Movements 1 2 1 - Exam PHYSICAL EXAMINATION: GENERAL:73-year-old female in no acute distress at the time of my examination HEENT: Head is atraumatic, normocephalic. Pupils equal, round. Sclera anicteric. Conjunctiva are clear. Mucous membranes of the mouth are moist. Neck is supple. There is no elevated jugular venous pressure.no carotid bruit is heard. HEART EXAMINATION: [Heart S1, S2 normal. No murmur or gallop heard.] CHEST EXAMINATION:[ Lungs are clear to auscultation and precussion. No chest wall tenderness is noted on palpation or with deep breathing.] ABDOMEN: [ Soft, nontender. Bowel sounds are heard. No organomegaly noted]. EXTREMITIES:[ 2+ peripheral pulses with no evidence of peripheral edema and no calf tenderness noted]. NEUROLOGIC [patient is awake, alert and oriented X3.] . - Labs CBC & Chem 7: 01/01/19 05:56 01/03/19 05:26 Labs: Abnormal Lab Results - Last 24 Hours (Table) 01/03/19 Range/Units 05:26 Sodium 131 L (137-145) mmol/L Chloride 91 L (98-107) mmol/L BUN 80 H (7-17) mg/dL Creatinine 7.71 H* (0.52-1.04) mg/dL Assessment and Plan Plan: Assessment and plan #1 symptoms of fairly sudden onset of shortness of breath, could be secondary to atrial fibrillation with rapid ventricular response with subsequent element of congestive heart failure, diastolic, acute on chronic #2 end-stage renal disease on dialysis #3 hypertension #4 hyperlipidemia #5 chronic anemia #6 history of paroxysmal atrial fibrillation #7 COPD #8 prior TIA #9 non-LA troponin elevation, secondary to abnormal renal function #10 hypokalemia #11 hypomagnesemia Plan Patient had an echocardiogram with Doppler study performed in September of this year that revealed a normal left ventricular systolic function with mild to moderate tricuspid regurgitation.echo performed here showed an ejection fraction of 25%. Now that the patient is in a normal sinus rhythm we will have a limited echo per formed this morning to assess the LV function. . DNP note has been reviewed, I agree with a documented findings and plan of care. Patient was seen and examined.
[2019-01-03] MEDS ORDERED: DIALYSIS (PERIT 2.5%) 2,000 ML 50 G/2,000 ML BAG INTRAPERIT SCH (12:00)
[2019-01-03 12:15] LABS: Glucose,Whole Blood 121 mg/dL (75-99)
--- NOTE | 2019-01-03 13:01 | P.DS ---
Providers Date of admission: 12/28/18 06:32 Attending physician: Jojo Ramirez Consults: 12/28/18 06:30 Consult Physician Urgent Consulting Provider: Fabian Foster Consult Reason/Comments: Atrial fibrillation with rapid ventricular rate Do you want consulting provider notified?: Already Contacted 12/28/18 09:42 Consult Physician Urgent Consulting Provider: Alfredo Wilde Consult Reason/Comments: CAPD patient renal failure Do you want consulting provider notified?: Already Contacted Primary care physician: Soren Desai Hospital Course: 71-year-old female admitted for atrial fibrillation and can start failure chronic diastolic dysfunction with acute exacerbation patient is sinus rhythm at this time patient is still apparent colitis of thousand doesn't use any oxygen at home will taper down the oxygen continue with IV Lasix and patient is undergoing CPPD patient doesn't urinate much so Lasix may not be beneficial. Patient is requesting for home oxygen patient will be evaluated for home oxygen at the time of discharge.shortness of breath did not improve significantly 12/30/2018 Patient continued to have respiratory issues still short of breath patient heart rate went into 150s and patient is not feeling well. Patient is not much volume overloaded better blood pressure is low because of which Lasix is being held at this time but patient will go into heart failure because of A. fib. She was started on amiodarone. 12/31/2018 Patient the has some wheezing on exam because of which are started on prednisone patient was on inhaled steroids inhaled steroids without any significant improvement. Patient the heart rate is still high and patient is still complaining of shortness of breath. 01/01/2019 Patient is doing much better heart rate is well controlled at this time patient respiratory status improved still has some wheezing on exam 01/02/2019 Patient's wheezing improved heart rate is fairly well controlled except for an episode of tachycardia. 01/03/2019 Patient's echocardiogram during this hospital physician showed low ejection fraction of 25% which was believed to be secondary to atrial fibrillation because of which a repeat echo is being obtained patient is fairly euvolemic at this time patient is cleared for discharge from nephrology perspective and patient will be discharged today to home with home care. Patient remains hyponatremic although is a dialysis patient peritoneal dialysis. Her wheezing improved PHYSICAL EXAMINATION: GENERAL: The patient is alert and oriented x3, not in any acute distress. Well developed, well nourished. HEENT: Pupils are round and equally reacting to light. EOMI. No scleral icterus. No conjunctival pallor. Normocephalic, atraumatic. No pharyngeal erythema. No thyromegaly. CARDIOVASCULAR: S1 and S2 present. No murmurs, rubs, or gallops. Tachycardic irregularly irregular rhythm PULMONARY: does have good air entry into bilateral lung caceres does have some wheezing improved compared to yesterday ABDOMEN: Soft, nontender, nondistended, normoactive bowel sounds. No palpable organomegaly. MUSCULOSKELETAL: No joint swelling or deformity. EXTREMITIES: No cyanosis, clubbing, or pedal edema. NEUROLOGICAL: Gross neurological examination did not reveal any focal deficits. SKIN: No rashes. Assessment and Plan Plan: -Acute hypoxic respiratory failure can secondary to congestive heart failure chronic diastolic dysfunction with acute exacerbation patient's patient will undergo peritoneal dialysis and nephrology cleared the patient for discharge. Patient has a systolic dysfunction of 25% which appears to be temporary repeat echocardiogram is eating obtain today -Atrial fibrillation with rapid ventricular rate: patient is presently on metoprolol an amiodarone and patient is rate controlled at this time. -Mild elevated troponin secondary to end-stage renal disease ration is on peritoneal dialysis -Hyponatremia probably hypervolemic hyponatremia expected to be corrected with her peritoneal dialysis -Elevated MCV: B12 levels are within normal limits -Sick euthyroid syndrome TSH need to be repeated in about a month -Hypertension End-stage renal disease probably hypertensive nephrosclerosis on peritoneal dialysis -Hyperlipidemia -COPD with acute exacerbation patient was started on systemic steroids inhalational treatments will be continued. -Prior history of TIA in the past -Metabolic bone disease from end-stage renal disease continue phosphate binders Patient Condition at Discharge: Serious Plan - Discharge Summary Discharge Rx Participant: No New Discharge Prescriptions: New Amiodarone [Cordarone] 400 mg PO BID #30 tab Ipratropium-Albuterol Nebulize [Duoneb 0.5 mg-3 mg/3 ml Soln] 3 ml INHALATION RT-Q4H PRN #90 ampul.neb PRN Reason: Shortness Of Breath Or Wheezing Metoprolol Tartrate [Lopressor] 25 mg PO BID #60 tab Budesonide [Pulmicort] 0.5 mg INHALATION RT-BID #30 nebu predniSONE 10 mg PO DAILY #30 tab Continue Omeprazole [PriLOSEC] 20 mg PO DAILY Megestrol [Megace] 40 mg PO DAILY Apixaban [Eliquis] 2.5 mg PO BID #60 tab Discharge Medication List Megestrol [Megace] 40 mg PO DAILY 12/28/18 [History] Omeprazole [PriLOSEC] 20 mg PO DAILY 12/28/18 [History] Amiodarone [Cordarone] 400 mg PO BID #30 tab 01/03/19 [Rx] Apixaban [Eliquis] 2.5 mg PO BID #60 tab 01/03/19 [Rx] Budesonide [Pulmicort] 0.5 mg INHALATION RT-BID #30 nebu 01/03/19 [Rx] Ipratropium-Albuterol Nebulize [Duoneb 0.5 mg-3 mg/3 ml Soln] 3 ml INHALATION RT-Q4H PRN #90 ampul.neb 01/03/19 [Rx] Metoprolol Tartrate [Lopressor] 25 mg PO BID #60 tab 01/03/19 [Rx] predniSONE 10 mg PO DAILY #30 tab 01/03/19 [Rx] Follow up Appointment(s)/Referral(s): Soren Desai MD [Primary Care Provider] - 1-2 days [facility], [NON-STAFF] - Henry Curry MD [STAFF PHYSICIAN] - 1 Week Patient Instructions/Handouts: Heart Failure (DC), A-fib (Atrial Fibrillation) (DC), Heart Healthy Diet (DC) Discharge Disposition: HOME WITH HOME HEALTH SERVICES
[2019-01-03 13:18] VITALS: BP 138/64; PULSE 67; RESP 16; TEMP 98.2
--- NOTE | 2019-01-03 17:04 | ECHOF ---
Referral Reason:limited, assess lvf now that patient is in NSR MEASUREMENTS -------- HEIGHT: 165.1 cm WEIGHT: 54.0 kg BP: FINDINGS -------- Limited Study for LV Function. Overall left ventricular systolic function is low-normal with, an EF between 50 - 55 %. There is no pericardial effusion. CONCLUSIONS -------- 1. Overall left ventricular systolic function is low-normal with, an EF between 50 - 55 %. 2. There is no pericardial effusion. ART TEACHER: Farhana Mcclelland RDCS
== END 2019-01-03 16:08 | disposition home or self-care (01) | DRG 291 ==
LOC: EC 03:49 → 3SCARD 06:32
PROVIDERS: ADMIT Hospitalist; ATTEND Hospitalist
PROC: 5A09357 Assistance with Respiratory Ventilation, Less than 24 Consecutive Hours, Continuous Positive Airway Pressure (ICD-10-PCS; 2018-12-28)
PROC: 3E1M39Z Irrigation of Peritoneal Cavity using Dialysate, Percutaneous Approach (ICD-10-PCS; principal; 2018-12-31)
DX: I13.2 Hypertensive heart and chronic kidney disease with heart failure and with stage 5 chronic kidney disease, or end stage renal disease (principal); I50.33 Acute on chronic diastolic (congestive) heart failure; J96.01 Acute respiratory failure with hypoxia; N18.6 End stage renal disease; E87.2 Acidosis; J44.1 Chronic obstructive pulmonary disease with (acute) exacerbation; E87.1 Hypo-osmolality and hyponatremia; I48.0 Paroxysmal atrial fibrillation; J44.9 Chronic obstructive pulmonary disease, unspecified; D63.1 Anemia in chronic kidney disease; E83.42 Hypomagnesemia; E87.6 Hypokalemia; F41.9 Anxiety disorder, unspecified; I42.9 Cardiomyopathy, unspecified; M19.90 Unspecified osteoarthritis, unspecified site; K52.9 Noninfective gastroenteritis and colitis, unspecified; I70.1 Atherosclerosis of renal artery; M89.9 Disorder of bone, unspecified; E07.81 Sick-euthyroid syndrome; E78.5 Hyperlipidemia, unspecified; Z99.2 Dependence on renal dialysis; Z86.73 Personal history of transient ischemic attack (TIA), and cerebral infarction without residual deficits; Z79.01 Long term (current) use of anticoagulants; Z82.49 Family history of ischemic heart disease and other diseases of the circulatory system; Z87.891 Personal history of nicotine dependence; Z87.01 Personal history of pneumonia (recurrent); Z90.89 Acquired absence of other organs; Z79.899 Other long term (current) drug therapy
CPT/HCPCS: 36415; 71045; 80048; 80053; 80061; 82607; 82728; 83540; 83550; 83735; 83880; 84439; 84443; 84484; 85025; 85027; 85379; 85610; 85730; 93005; 93306; 93308; 94640; 94660; 94760; 96365; 96366; 96376; 99291

== ENCOUNTER 2019-01-08 16:21 | Inpatient (IN) | payer MEDICARE, BC ==
[2019-01-08] MEDS ORDERED: MAGNESIUM SULFATE-D5W PMX 1 GM in DEXTROSE/WATER 1 100ML.BAG IVPB STA (16:25)
--- NOTE | 2019-01-08 16:42 | ED ---
General Adult HPI - General Chief complaint: Shortness of Breath Stated complaint: Weakness Time Seen by Provider: 01/08/19 16:30 Source: patient, EMS Mode of arrival: EMS Limitations: no limitations - History of Present Illness Initial comments: The patient is a 73-year-old female with past medical history of atrial fibrillation, congestive heart failure and COPD who presents emergency department with worsening shortness of breath. Patient reports that she has been short of breath over the past 4-5 days. It has made her feel generally weak. She sustained a fall yesterday because of her weakness. Denies any injuries. No blunt head trauma. She has been using her inhalers as directed however they have not helped her symptoms. She denies any cough, fevers or chills. No hemoptysis. Denies any lower extremity swelling. No history of DVTs or PEs. She is on Eliquis and denies missing any doses. No unilateral calf pain or swelling. She denies any chest pain. Admits to abdominal pain at the site of her peritoneal dialysis catheter. She has dialysis every 4 hours. States that she has not missed any sessions. Denies any abdominal bloating. The patient minimally makes urine. He normally will use the restroom twice a day. Denies any dysuria or hematuria. Denies any changes in her bowel habits. There are no other alleviating, precipitating or modifying factors. - Related Data Home Medications Medication Instructions Recorded Confirmed Omeprazole [PriLOSEC] 20 mg PO DAILY 12/28/18 01/08/19 Previous Rx's Medication Instructions Recorded Apixaban [Eliquis] 2.5 mg PO BID #60 tab 01/03/19 Budesonide [Pulmicort] 0.5 mg INHALATION RT-BID #30 nebu 01/03/19 Amiodarone [Cordarone] 200 mg PO TID tab 01/10/19 Cefdinir [Omnicef] 300 mg PO BID #6 cap 01/10/19 Ipratropium-Albuterol Nebulize 3 ml INHALATION TID #90 ampul.neb 01/10/19 [Duoneb 0.5 mg-3 mg/3 ml Soln] Megestrol [Megace] 40 mg PO DAILY #3 tab 01/10/19 Metoprolol Tartrate [Lopressor] 75 mg PO BID tab 01/10/19 Sodium Bicarbonate Tab 650 mg PO BID tab 01/10/19 predniSONE 0 mg PO DIRECTED #1 tab 01/10/19 Allergies Allergy/AdvReac Type Severity Reaction Status Date / Time No Known Allergies Allergy Verified 01/08/19 17:03 Review of Systems ROS Statement: Those systems with pertinent positive or pertinent negative responses have been documented in the HPI. ROS Other: All systems not noted in ROS Statement are negative. Past Medical History Past Medical History: Atrial Fibrillation, Asthma, Heart Failure, COPD, CVA/TIA, Hypertension, Osteoarthritis (OA), Pneumonia, Renal Disease, Syncope Additional Past Medical History / Comment(s): CVA 2005, ESRD, Dialysis cath inserted 02-02-18 gets dialysis . History of Any Multi-Drug Resistant Organisms: None Reported Past Surgical History: Tonsillectomy Additional Past Surgical History / Comment(s): ORIF rt ankle-[address], IUD removal, lumbar steroid injections, dental implants, cardioversion, dialysis cath. has ocl on l wrist, states fell 1 1/2 month ago and has a hairline fracture of wrist Past Anesthesia/Blood Transfusion Reactions: No Reported Reaction Additional Past Anesthesia/Blood Transfusion Reaction / Comment(s): Past blood transfusions - no reaction Past Psychological History: Anxiety Smoking Status: Former smoker Past Alcohol Use History: None Reported Past Drug Use History: None Reported - Past Family History Mother Family Medical History: No Reported History Additional Family Medical History / Comment(s): Mother in her 80s from abdominal aortic aneurysm. Father Family Medical History: Myocardial Infarction ([place]) Additional Family Medical History / Comment(s): Father at age 52 from acute [place]. General Exam Limitations: no limitations General appearance: alert, anxious Head exam: Present: atraumatic, normocephalic, normal inspection Eye exam: Present: normal appearance, PERRL, EOMI. Absent: scleral icterus, conjunctival injection, periorbital swelling ENT exam: Present: normal exam, mucous membranes moist Neck exam: Present: normal inspection. Absent: tenderness, meningismus, lymphadenopathy Respiratory exam: Present: wheezes, accessory muscle use, decreased breath sounds. Absent: respiratory distress, rales, rhonchi, stridor Cardiovascular Exam: Present: regular rate, normal rhythm, normal heart sounds. Absent: systolic murmur, diastolic murmur, rubs, gallop, clicks GI/Abdominal exam: Present: soft, normal bowel sounds, other (right sided peritoneal dialysis catheter). Absent: distended, tenderness, guarding, rebound, rigid Extremities exam: Present: normal inspection, full ROM, normal capillary refill. Absent: tenderness, pedal edema, joint swelling, calf tenderness Back exam: Present: normal inspection Neurological exam: Present: alert, oriented X3, CN II-XII intact Psychiatric exam: Present: normal affect, normal mood Skin exam: Present: warm, dry, intact, normal color. Absent: rash Course Vital Signs 01/08/19 01/08/19 01/08/19 16:25 17:37 19:07 Temperature 98.1 F 97.9 F Pulse Rate 95 90 Respiratory 25 H 25 H 25 H Rate Blood Pressure 132/68 129/93 O2 Sat by Pulse 100 99 Oximetry EKG Findings - EKG Comments: EKG Findings:: EKG demonstrates a normal sinus rhythm with a ventricular rate of 81. NC interval 162. QRS 96. QTC 478. There is some scooped ST depression in leads V4 through V6. There is significant baseline artifact. There are no acute ST segment elevations. Medical Decision Making - Medical Decision Making Upon arrival the patient is placed into room 2. She is hooked up to continuous pulse ox and cardiac monitoring. A thorough history and physical exam was performed. A 12-lead EKG is performed which demonstrates a normal sinus rhythm. IV had been previously established by EMS. They did provide the patient with 125 mg of Solu-Medrol and 2 DuoNeb breathing treatments. I did provide the patient with another DuoNeb breathing treatment and 1 g of magnesium. I recommended laboratory studies as well as a chest x-ray. Upon return of the results I did discuss them with the patient. She continues to sat 98% on 2 L of oxygen. I discussed the diagnosis, differential and treatment options. The does feel that the patient requires rehab. The patient reports that she does not feel improved in her respirations. Because of this I did recommend hospital admission. The patient will be admitted to Dr Vivar. I did call discuss the case with her and she did accept admission of the patient. We will continue breathing treatments and steroids on the patient. The patient remained in stable condition and was transported to the floor. - Lab Data Result diagrams: 01/14/19 05:43 08/30/19 05:43 Lab Results 01/08/19 01/08/19 01/08/19 Range/Units 16:45 16:45 16:45 WBC 9.7 (3.8-10.6) k/uL RBC 3.97 (3.80-5.40) m/uL Hgb 12.5 (11.4-16.0) gm/dL Hct 38.5 (34.0-46.0) % MCV 97.1 (80.0-100.0) fL MCH 31.5 (25.0-35.0) pg MCHC 32.4 (31.0-37.0) g/dL RDW 15.5 (11.5-15.5) % Plt Count 396 (150-450) k/uL Neutrophils % 82 % Lymphocytes % 7 % Monocytes % 7 % Eosinophils % 1 % Basophils % 0 % Neutrophils # 7.9 H (1.3-7.7) k/uL Lymphocytes # 0.7 L (1.0-4.8) k/uL Monocytes # 0.7 (0-1.0) k/uL Eosinophils # 0.1 (0-0.7) k/uL Basophils # 0.0 (0-0.2) k/uL Anisocytosis Macrocytosis PT (9.0-12.0) sec INR (<1.2) APTT (22.0-30.0) sec Sodium 132 L (137-145) mmol/L Potassium 3.8 (3.5-5.1) mmol/L Chloride 89 L (98-107) mmol/L Carbon Dioxide 21 L (22-30) mmol/L Anion Gap 22 mmol/L BUN 71 H (7-17) mg/dL Creatinine 8.51 H* (0.52-1.04) mg/dL Est GFR (CKD-EPI)AfAm 5 (>60 ml/min/1.73 sqM) Est GFR (CKD-EPI)NonAf 4 (>60 ml/min/1.73 sqM) Glucose 107 H (74-99) mg/dL POC Glucose (mg/dL) (75-99) mg/dL POC Glu Flexographic Press Set Up Operator ID Calcium 9.1 (8.4-10.2) mg/dL Magnesium 1.8 (1.6-2.3) mg/dL Total Bilirubin 0.6 (0.2-1.3) mg/dL AST 22 (14-36) U/L ALT 26 (9-52) U/L Alkaline Phosphatase 88 (38-126) U/L Troponin I (0.000-0.034) ng/mL NT-Pro-B Natriuret Pep 644698 pg/mL Total Protein 6.9 (6.3-8.2) g/dL Albumin 4.0 (3.5-5.0) g/dL 01/08/19 01/08/19 01/08/19 Range/Units 16:45 16:45 21:10 WBC (3.8-10.6) k/uL RBC (3.80-5.40) m/uL Hgb (11.4-16.0) gm/dL Hct (34.0-46.0) % MCV (80.0-100.0) fL MCH (25.0-35.0) pg MCHC (31.0-37.0) g/dL RDW (11.5-15.5) % Plt Count (150-450) k/uL Neutrophils % % Lymphocytes % % Monocytes % % Eosinophils % % Basophils % % Neutrophils # (1.3-7.7) k/uL Lymphocytes # (1.0-4.8) k/uL Monocytes # (0-1.0) k/uL Eosinophils # (0-0.7) k/uL Basophils # (0-0.2) k/uL Anisocytosis Macrocytosis PT 10.1 (9.0-12.0) sec INR 0.9 (<1.2) APTT 25.6 (22.0-30.0) sec Sodium (137-145) mmol/L Potassium (3.5-5.1) mmol/L Chloride (98-107) mmol/L Carbon Dioxide (22-30) mmol/L Anion Gap mmol/L BUN (7-17) mg/dL Creatinine (0.52-1.04) mg/dL Est GFR (CKD-EPI)AfAm (>60 ml/min/1.73 sqM) Est GFR (CKD-EPI)NonAf (>60 ml/min/1.73 sqM) Glucose (74-99) mg/dL POC Glucose (mg/dL) 312 H (75-99) mg/dL POC Glu Flexographic Press Set Up Operator ID Cici Talley Calcium (8.4-10.2) mg/dL Magnesium (1.6-2.3) mg/dL Total Bilirubin (0.2-1.3) mg/dL AST (14-36) U/L ALT (9-52) U/L Alkaline Phosphatase (38-126) U/L Troponin I 0.135 H* (0.000-0.034) ng/mL NT-Pro-B Natriuret Pep pg/mL Total Protein (6.3-8.2) g/dL Albumin (3.5-5.0) g/dL 01/08/19 01/09/19 01/09/19 Range/Units 22:37 05:27 05:27 WBC 8.0 (3.8-10.6) k/uL RBC 3.57 L (3.80-5.40) m/uL Hgb 11.7 (11.4-16.0) gm/dL Hct 34.9 (34.0-46.0) % MCV 97.7 (80.0-100.0) fL MCH 32.6 (25.0-35.0) pg MCHC 33.4 (31.0-37.0) g/dL RDW 16.6 H (11.5-15.5) % Plt Count 377 (150-450) k/uL Neutrophils % 92 % Lymphocytes % 4 % Monocytes % 3 % Eosinophils % 0 % Basophils % 0 % Neutrophils # 7.4 (1.3-7.7) k/uL Lymphocytes # 0.3 L (1.0-4.8) k/uL Monocytes # 0.3 (0-1.0) k/uL Eosinophils # 0.0 (0-0.7) k/uL Basophils # 0.0 (0-0.2) k/uL Anisocytosis Slight Macrocytosis Slight PT (9.0-12.0) sec INR (<1.2) APTT (22.0-30.0) sec Sodium (137-145) mmol/L Potassium (3.5-5.1) mmol/L Chloride (98-107) mmol/L Carbon Dioxide (22-30) mmol/L Anion Gap mmol/L BUN (7-17) mg/dL Creatinine (0.52-1.04) mg/dL Est GFR (CKD-EPI)AfAm (>60 ml/min/1.73 sqM) Est GFR (CKD-EPI)NonAf (>60 ml/min/1.73 sqM) Glucose (74-99) mg/dL POC Glucose (mg/dL) (75-99) mg/dL POC Glu Flexographic Press Set Up Operator ID Calcium (8.4-10.2) mg/dL Magnesium (1.6-2.3) mg/dL Total Bilirubin (0.2-1.3) mg/dL AST (14-36) U/L ALT (9-52) U/L Alkaline Phosphatase (38-126) U/L Troponin I 0.098 H* 0.100 H* (0.000-0.034) ng/mL NT-Pro-B Natriuret Pep pg/mL Total Protein (6.3-8.2) g/dL Albumin (3.5-5.0) g/dL 01/09/19 01/09/19 01/09/19 Range/Units 05:27 06:28 12:05 WBC (3.8-10.6) k/uL RBC (3.80-5.40) m/uL Hgb (11.4-16.0) gm/dL Hct (34.0-46.0) % MCV (80.0-100.0) fL MCH (25.0-35.0) pg MCHC (31.0-37.0) g/dL RDW (11.5-15.5) % Plt Count (150-450) k/uL Neutrophils % % Lymphocytes % % Monocytes % % Eosinophils % % Basophils % % Neutrophils # (1.3-7.7) k/uL Lymphocytes # (1.0-4.8) k/uL Monocytes # (0-1.0) k/uL Eosinophils # (0-0.7) k/uL Basophils # (0-0.2) k/uL Anisocytosis Macrocytosis PT (9.0-12.0) sec INR (<1.2) APTT (22.0-30.0) sec Sodium 124 L (137-145) mmol/L Potassium 4.6 (3.5-5.1) mmol/L Chloride 85 L (98-107) mmol/L Carbon Dioxide 17 L (22-30) mmol/L Anion Gap 22 mmol/L BUN 86 H (7-17) mg/dL Creatinine 8.26 H* (0.52-1.04) mg/dL Est GFR (CKD-EPI)AfAm 5 (>60 ml/min/1.73 sqM) Est GFR (CKD-EPI)NonAf 4 (>60 ml/min/1.73 sqM) Glucose 136 H (74-99) mg/dL POC Glucose (mg/dL) 212 H 136 H (75-99) mg/dL POC Glu Flexographic Press Set Up Operator ALMA Talley CiciFidencio Gee Calcium 9.1 (8.4-10.2) mg/dL Magnesium (1.6-2.3) mg/dL Total Bilirubin (0.2-1.3) mg/dL AST (14-36) U/L ALT (9-52) U/L Alkaline Phosphatase (38-126) U/L Troponin I (0.000-0.034) ng/mL NT-Pro-B Natriuret Pep pg/mL Total Protein (6.3-8.2) g/dL Albumin (3.5-5.0) g/dL Disposition Clinical Impression: Acute exacerbation of chronic obstructive airways disease, Acute respiratory failure with hypoxia Disposition: ADMITTED IP TO THIS HOSP Condition: Stable Is patient prescribed a controlled substance at d/c from ED?: No Decision to Admit Reason: Admit from EC Decision Date: 01/08/19 Decision Time: 18:26
[2019-01-08 17:05] LABS: Basophils % (A) 0 %; Eosinophils # (A) 0.1 k/uL (0-0.7); Eosinophils % (A) 1 %; HCT 38.5 % (34.0-46.0); HGB 12.5 gm/dL (11.4-16.0); Lymphocytes # (A) 0.7 k/uL (1.0-4.8); Lymphocytes % (A) 7 %; MCH 31.5 pg (25.0-35.0); MCHC 32.4 g/dL (31.0-37.0); MCV 97.1 fL (80.0-100.0); Mean Platelet Volume 6.7; Monocytes # (A) 0.7 k/uL (0-1.0); Monocytes % (A) 7 %; Neutrophils # (A) 7.9 k/uL (1.3-7.7); Neutrophils % (A) 82 %; Platelet Count 396 k/uL (150-450); RBC 3.97 m/uL (3.80-5.40); RDW 15.5 % (11.5-15.5); WBC 9.7 k/uL (3.8-10.6)
--- NOTE | 2019-01-08 17:07 | XR ---
EXAMINATION TYPE: XR chest 2V DATE OF EXAM: 01/08/2019 COMPARISON: 01/02/2019 HISTORY: Weakness TECHNIQUE: Frontal and lateral views of the chest are obtained. FINDINGS: Heart is normal. Lungs are clear of infiltrate. Thoracic aorta is atheromatous. There is m ild scarring at the lung apices. There are chest leads. There is no pleural effusion. There is osteop enia. IMPRESSION: No active cardiopulmonary disease. Mild pulmonary fibrotic changes. No significant encinas e compared to old exam.
[2019-01-08 17:14] LABS: INR 0.9 (<1.2); Partial Thromboplastin Time 25.6 sec (22.0-30.0); Prothrombin Time 10.1 sec (9.0-12.0)
[2019-01-08 17:16] LABS: Calcium 9.1 mg/dL (8.4-10.2); Magnesium 1.8 mg/dL (1.6-2.3); Potassium 3.8 mmol/L (3.5-5.1); Total Bilirubin 0.6 mg/dL (0.2-1.3); Total Protein 6.9 g/dL (6.3-8.2)
[2019-01-08] MEDS ORDERED: NALOXONE 0.4 MG/ML 1 ML VIAL IV PRN (18:29)
[2019-01-08] MEDS ORDERED: ACETAMINOPHEN TAB 500 MG TAB PO PRN (20:18)
[2019-01-08] MEDS: IPRATROPIUM-ALBUTEROL 3 ML NEB INHALATION SCH (20:38)
[2019-01-08] MEDS: BUDESONIDE 0.5 MG/2 ML NEBU INHALATION SCH (20:38)
[2019-01-08 21:11] LABS: Glucose,Whole Blood 312 mg/dL (75-99)
[2019-01-08] MEDS: AMIODARONE 200 MG TAB PO SCH (21:39)
[2019-01-08] MEDS: INSULIN ASPART (NovoLOG) 100 UNIT/ML VIAL SQ SCH (21:39)
[2019-01-08] MEDS: APIXABAN 2.5 MG TABLET PO SCH (21:39)
[2019-01-08] MEDS: METOPROLOL TARTRATE 25 MG TAB PO SCH (21:39)
[2019-01-08] MEDS: DIALYSIS (PERIT 2.5%) 2,000 ML 50 G/2,000 ML BAG INTRAPERIT SCH (23:02)
[2019-01-08] MEDS: methylPREDNISolone SOD SUCCI 40 MG/ML 1 ML VIAL IV SCH (23:03)
--- NOTE | 2019-01-08 23:19 | HP ---
HISTORY AND PHYSICAL DATE OF SERVICE: 01/08/2019 CHIEF COMPLAINT: Shortness of breath and weakness. HISTORY OF PRESENT ILLNESS: This 73-year-old woman with a past medical history of multiple medical problems including chronic renal failure on CAPD, history of atrial fibrillation, asthma, CHF, COPD, CVA, TIA, hypertension, DJD, history of renal disease, history of tonsillectomy, being followed by Dr. Desai in the outpatient setting, was recently admitted with atrial fibrillation, multiple other medical issues. The patient apparently had a low ejection fraction about 20 to 25%, but subsequently improved to 50 to 55%, thought to be due to atrial fibrillation related, but however the patient also had complains of weakness. Patient had multiple falls and the last time ECF rehab was recommended, which the patient refused. The patient is living at home with her . Currently, the patient also complaining of weakness and tiredness workup and patient came to [facility] and was admitted for further evaluation and treatment. Chest x-ray showed no obvious pneumonia. The white count is normal and the patient is also receiving CAPD from Nephrology. The patient also apparently had some falls at home. Patient is extremely tremulous and weak at this time. There is no history of fever, rigors or chills. No history of headache, loss of consciousness or seizures. PAST MEDICAL HISTORY: Atrial fibrillation, asthma, CHF, COPD, CVA, TIA, DJD, history of pneumonia. MEDICATIONS: Prior to admission include home medications: 1. Prilosec 20 mg p.o. daily. 2. Lopressor 25 mg p.o. b.i.d. 3. Megace 40 mg p.o. daily. 4. DuoNeb 3 mL q.4 p.r.n. 5. Pulmicort 0.5 b.i.d. 6. Eliquis 2.5 mg b.i.d. 7. Cordarone 400 mg b.i.d. ALLERGIES: None. FAMILY HISTORY: History of abdominal aortic aneurysm in 80s. SOCIAL HISTORY: Previous history of smoking. No history of current smoking. REVIEW OF SYSTEMS: ENT: Diminished hearing. Diminished vision. CARDIOVASCULAR as mentioned earlier. RESPIRATORY: As mentioned earlier. GI no nausea or vomiting. no dysuria. Nervous system: No numbness or weakness. ALLERGY/IMMUNOLOGY: No asthma or hayfever. MUSCULOSKELETAL: As mentioned earlier. HEMATOLOGY/ONCOLOGY: No history of anemia. ENDOCRINE: No history of diabetes or hypothyroidism. CONSTITUTIONAL: As mentioned earlier. DERMATOLOGY: Negative. RHEUMATOLOGY negative. PSYCHIATRY as mentioned earlier. PHYSICAL EXAMINATION: Alert and oriented times three. Pulse is 90. Blood pressure 129/93, respiration 24, temperature 97.9, pulse ox 99% on room air. HEENT: Conjunctivae normal. Oral mucosa moist. NECK is no jugular venous distention. No carotid bruit. No lymph node enlargement. Cardiovascular system: S1, S2 muffled. No S3, no S4. RESPIRATORY: Breath sounds diminished in the bases. A few scattered rhonchi and crackles. Expiratory wheezing also present. ABDOMEN: Soft, nontender. No mass palpable. LEGS: No edema. No swelling. NERVOUS SYSTEM: Higher functions as mentioned earlier, moves all four limbs. Mild diffuse weakness. Lymphatics: No lymph nodes palpable in the neck, axillae or groin. JOINTS: No active deforming arthropathy. LABS: CBC within normal limits. Sodium 132, potassium 3.8. Creatinine is 8.51. Troponin 0.135. ASSESSMENT: 1. Generalized weakness and tiredness, shortness of breath, possible chronic obstructive pulmonary disease exacerbation with acute purulent tracheobronchitis or bronchopneumonia bilateral. 2. Chronic renal failure on CAPD. 3. Hyponatremia. 4. Troponin 0.135 to rule out acute non ST elevation myocardial infarction. 5. Elevated NT proBNP, possibly congestive heart failure with chronic systolic dysfunction. 6. Gait dysfunction. 7. Atrial fibrillation history, paroxysmal. 8. ST-T changes on the EKG. 9. History of asthma. 10.History of congestive heart failure. 11.Chronic obstructive pulmonary disease. 12.Cerebrovascular accident/transient ischemic attack. 13.Hypertension. 14.History of degenerative joint disease. 15.History of pneumonia. 16.History of cerebrovascular accident. 17.History of tonsillectomy. 18.History of anxiety. 19.Remote history of nicotine dependence. 20.FULL CODE. 21.Severe protein calorie malnutrition with BMI of 19.5. RECOMMENDATIONS AND DISCUSSION: In this 73-year-old woman who presented with multiple complex medical issues, at this time I recommend to continue current medications, management and symptomatic treatment. We will initiate broad-spectrum IV antibiotic empirically. Follow the cultures and bronchodilators and IV steroids. Resume the home medications. PT/OT evaluation, possible ECF rehab. Consult Nephrology and Cardiology. NT proBNP is also elevated. The overall prognosis extremely guarded because of multiple complex medical issues. Further recommendations to follow. A copy of dictation being forwarded to Dr. Desai who is the primary physician. RYN / GEE: [id number] /
[2019-01-09] MEDS ORDERED: DIALYSIS (PERIT 4.25%) 2000 ML 85 G/2,000 ML BAG INTRAPERIT SCH
[2019-01-09] MEDS: ALPRAZolam 0.25 MG TAB PO PRN ×2 (00:08→23:41)
[2019-01-09] MEDS: IPRATROPIUM-ALBUTEROL 3 ML NEB INHALATION SCH ×5 (00:31→23:10)
[2019-01-09] MEDS: METOPROLOL TARTRATE 25 MG TAB PO SCH (05:10)
[2019-01-09] MEDS: AMIODARONE 200 MG TAB PO SCH ×2 (05:10→20:57)
[2019-01-09] MEDS: DIALYSIS (PERIT 2.5%) 2,000 ML 50 G/2,000 ML BAG INTRAPERIT SCH ×3 (05:23→18:43)
[2019-01-09 06:29] LABS: Glucose,Whole Blood 212 mg/dL (75-99)
[2019-01-09] MEDS: INSULIN ASPART (NovoLOG) 100 UNIT/ML VIAL SQ SCH ×4 (06:40→20:58)
[2019-01-09 06:49] LABS: Anisocytosis Slight; Basophils % (A) 0 %; Calcium 9.1 mg/dL (8.4-10.2); Eosinophils % (A) 0 %; HCT 34.9 % (34.0-46.0); HGB 11.7 gm/dL (11.4-16.0); Lymphocytes # (A) 0.3 k/uL (1.0-4.8); Lymphocytes % (A) 4 %; MCH 32.6 pg (25.0-35.0); MCHC 33.4 g/dL (31.0-37.0); MCV 97.7 fL (80.0-100.0); Macrocytosis Slight; Mean Platelet Volume 7.1; Monocytes # (A) 0.3 k/uL (0-1.0); Monocytes % (A) 3 %; Neutrophils # (A) 7.4 k/uL (1.3-7.7); Neutrophils % (A) 92 %; Platelet Count 377 k/uL (150-450); Potassium 4.6 mmol/L (3.5-5.1); RBC 3.57 m/uL (3.80-5.40); RDW 16.6 % (11.5-15.5)
[2019-01-09] MEDS: BUDESONIDE 0.5 MG/2 ML NEBU INHALATION SCH ×2 (08:47→19:43)
[2019-01-09] MEDS: MEGESTROL 40 MG TAB PO SCH (09:17)
[2019-01-09] MEDS: methylPREDNISolone SOD SUCCI 40 MG/ML 1 ML VIAL IV SCH ×2 (09:17→18:42)
[2019-01-09] MEDS: PANTOPRAZOLE 40 MG TABLET PO SCH (09:17)
[2019-01-09] MEDS: APIXABAN 2.5 MG TABLET PO SCH ×2 (09:17→20:58)
[2019-01-09] MEDS ORDERED: METOPROLOL TARTRATE 25 MG TAB PO STA (09:27)
--- NOTE | 2019-01-09 09:42 | P.CRDCN ---
History of Present Illness Consult date: 01/09/19 Requesting physician: Severino Vargas Reason for Consult (text): elevated troponin and BNP Chief complaint: shortness of breath History of present illness: This is a pleasant 73-year-old female patient who follows with Dr. Solis in the office. She has a history of end-stage renal disease on peritoneal dialysis, paroxysmal atrial fibrillation, chronic diastolic heart failure, hypertension, hyperlipidemia, prior TIA, and COPD. She was recently admitted to the hospital with acute COPD exacerbation at which time she was found to be in atrial fibrillation with rapid ventricular response and an echocardiogram showed an ejection fraction of 20-25%. She subsequently converted to sinus rhythm and repeat echocardiogram showed an ejection fraction of 50-55%. She presents this admission with similar complaints worsening shortness of breath over one day. She denies any cough denies fever or chills denies palpitations, chest discomfort, dizziness, lightheadedness, edema, abdominal pain or syncope. She's been doing her peritoneal dialysis 4 times a day as ordered and taking all of her medications as prescribed. She is apparently also been having some issues with tripping and falling at home and the is having difficulties helping to care for her. EKG on admission did show sinus rhythm. We were asked to patient in consultation due to elevated troponins and elevated BNP. Labs on admission showed a BUN of 71 and creatinine of 8.51. Troponins have been elevated at 0.135, 0.098 and 0.1 which are very similar to levels drawn previous admission on the 13th of this month. NT proBNP is elevated at 188,000 which is down from previous admission at which time it was greater than 350,000. Chest x-ray on admission showed no active cardiopulmonary disease, mild pulmonary fibrotic changes with no significant change compared to old exam. Upon examination, patient is resting comfortably in bed. She feels her breathing is better this morning. Nursing staff had her up walking to the bathroom and oxygen saturations dropped to 86% with activity which recovered with oxygen. She did go into atrial fibrillation with rapid ventricular response at around 4 this morning and her morning amiodarone 40 mg and metoprolol tartrate 25 mg were given at 5 AM. She remains in atrial fibrillation. Past Medical History Past Medical History: Atrial Fibrillation, Asthma, Heart Failure, COPD, CVA/TIA, Hypertension, Osteoarthritis (OA), Pneumonia, Renal Disease, Syncope Additional Past Medical History / Comment(s): CVA 2005, ESRD, Dialysis cath inserted 02-02-18 gets dialysis . History of Any Multi-Drug Resistant Organisms: None Reported Past Surgical History: Tonsillectomy Additional Past Surgical History / Comment(s): ORIF rt ankle-[address], IUD removal, lumbar steroid injections, dental implants, cardioversion, dialysis cath. has ocl on l wrist, states fell 1 1/2 month ago and has a hairline fracture of wrist Past Anesthesia/Blood Transfusion Reactions: No Reported Reaction Additional Past Anesthesia/Blood Transfusion Reaction / Comment(s): Past blood transfusions - no reaction Past Psychological History: Anxiety Smoking Status: Former smoker Past Alcohol Use History: None Reported Past Drug Use History: None Reported - Past Family History Mother Family Medical History: No Reported History Additional Family Medical History / Comment(s): Mother in her 80s from abdominal aortic aneurysm. Father Family Medical History: Myocardial Infarction ([place]) Additional Family Medical History / Comment(s): Father at age 52 from acute [place]. Medications and Allergies Home Medications Medication Instructions Recorded Confirmed Type Megestrol [Megace] 40 mg PO DAILY 12/28/18 01/08/19 History Omeprazole [PriLOSEC] 20 mg PO DAILY 12/28/18 01/08/19 History Amiodarone [Cordarone] 400 mg PO BID #30 tab 01/03/19 01/08/19 Rx Apixaban [Eliquis] 2.5 mg PO BID #60 tab 01/03/19 01/08/19 Rx Budesonide [Pulmicort] 0.5 mg INHALATION RT-BID #30 nebu 01/03/19 01/08/19 Rx Ipratropium-Albuterol Nebulize 3 ml INHALATION RT-Q4H PRN #90 01/03/19 01/08/19 Rx [Duoneb 0.5 mg-3 mg/3 ml Soln] ampul.neb Metoprolol Tartrate [Lopressor] 25 mg PO BID #60 tab 01/03/19 01/08/19 Rx Allergies Allergy/AdvReac Type Severity Reaction Status Date / Time No Known Allergies Allergy Verified 01/08/19 17:03 Physical Exam Vitals: Vital Signs Temp Pulse Pulse Resp BP BP Pulse Ox 01/09/19 09:03 104 H 01/09/19 08:47 104 H 01/09/19 03:41 98.2 F 67 16 156/82 98 01/09/19 00:00 97.9 F 89 15 142/84 98 01/08/19 23:08 98.1 F 89 16 142/84 98 01/08/19 20:55 90 01/08/19 20:40 90 01/08/19 20:00 97.9 F 86 15 161/82 100 01/08/19 19:07 97.9 F 90 25 H 129/93 99 01/08/19 17:37 98.1 F 95 25 H 132/68 100 01/08/19 16:25 25 H Intake and Output 01/08/19 01/09/19 01/09/19 22:59 06:59 14:59 Intake Total 180 Balance 180 Intake: Oral 180 Other: Voiding Method CAPD CAPD # Voids 0 Weight 53.07 kg 56.5 kg PHYSICAL EXAMINATION: HEENT: Head is atraumatic, normocephalic. Pupils equal, round. Neck is supple. There is no elevated jugular venous pressure. HEART EXAMINATION: Heart sounds irregularly irregular, S1 and S2 with a systolic murmur. Tachycardia noted. CHEST EXAMINATION: Lungs reveal diminished air exchange bilaterally with faint expiratory wheeze. No chest wall tenderness is noted on palpation or with deep breathing. ABDOMEN: Soft, nontender. Bowel sounds are heard. No organomegaly noted. Peritoneal dialysis catheter in place. EXTREMITIES: 2+ peripheral pulses with no evidence of peripheral edema and no ca lf tenderness noted. NEUROLOGIC patient is awake, alert and oriented x3. . Results 01/09/19 05:27 01/09/19 05:27 Cardiac Enzymes 01/08/19 01/08/19 01/08/19 Range/Units 16:45 16:45 22:37 AST 22 (14-36) U/L Troponin I 0.135 H* 0.098 H* (0.000-0.034) ng/mL 01/09/19 Range/Units 05:27 AST (14-36) U/L Troponin I 0.100 H* (0.000-0.034) ng/mL Coagulation 01/08/19 Range/Units 16:45 PT 10.1 (9.0-12.0) sec APTT 25.6 (22.0-30.0) sec CBC 01/08/19 01/09/19 Range/Units 16:45 05:27 WBC 9.7 8.0 (3.8-10.6) k/uL RBC 3.97 3.57 L (3.80-5.40) m/uL Hgb 12.5 11.7 (11.4-16.0) gm/dL Hct 38.5 34.9 (34.0-46.0) % Plt Count 396 377 (150-450) k/uL Comprehensive Metabolic Panel 01/08/19 01/09/19 Range/Units 16:45 05:27 Sodium 132 L 124 L (137-145) mmol/L Potassium 3.8 4.6 (3.5-5.1) mmol/L Chloride 89 L 85 L (98-107) mmol/L Carbon Dioxide 21 L 17 L (22-30) mmol/L BUN 71 H 86 H (7-17) mg/dL Creatinine 8.51 H* 8.26 H* (0.52-1.04) mg/dL Glucose 107 H 136 H (74-99) mg/dL Calcium 9.1 9.1 (8.4-10.2) mg/dL AST 22 (14-36) U/L ALT 26 (9-52) U/L Alkaline Phosphatase 88 (38-126) U/L Total Protein 6.9 (6.3-8.2) g/dL Albumin 4.0 (3.5-5.0) g/dL Current Medications Generic Name Dose Route Start Last Admin Trade Name Freq PRN Reason Stop Dose Admin Acetaminophen 500 mg 01/08/19 20:18 Tylenol Tab PO Q6HR PRN Fever and/ or Pain Hydrocodone Bitart/Acetaminophen 1 each 01/08/19 20:18 Spencer 5-325 PO Q6HR PRN Pain Albuterol/Ipratropium 3 ml 01/08/19 19:00 01/09/19 08:47 Duoneb 0.5 Mg-3 Mg/3 Ml Soln INHALATION 3 ml RT-Q6H SIMON Administration Alprazolam 0.25 mg 01/08/19 20:18 01/09/19 00:08 Xanax PO 0.25 mg TID PRN Administration Anxiety Amiodarone HCl 400 mg 01/08/19 21:00 01/09/19 05:10 Cordarone PO 400 mg BID SIMON Administration Apixaban 2.5 mg 01/08/19 21:00 01/09/19 09:17 Eliquis PO 2.5 mg BID SIMON Administration Budesonide 0.5 mg 01/08/19 20:00 01/09/19 08:47 Pulmicort INHALATION 0.5 mg RT-BID SIMON Administration Ceftriaxone Sodium 1 gm/ 50 mls @ 100 mls/hr 01/08/19 21:00 01/08/19 21:38 Sodium Chloride IVPB 100 mls/hr HS SIMON Administration Peritoneal Dialysis Solution 50 g in 2,000 mls @ 0 mls/hr 01/09/19 00:00 01/09/19 05:23 Delflex With 2.5% Dextrose (2,000 Ml) INTRAPERIT 2,000 mls/hr Q6HR SIMON Administration Protocol As Directed Insulin Aspart 0 unit 01/08/19 21:00 01/09/19 06:40 Novolog SQ 3 unit ACHS SIMON Administration Protocol Megestrol Acetate 40 mg 01/09/19 09:00 01/09/19 09:17 Megace PO 40 mg DAILY SIMON Administration Methylprednisolone Sodium Succinate 40 mg 01/09/19 00:00 01/09/19 09:17 Solu-Medrol IV 40 mg Q8HR SIMON Administration Metoprolol Tartrate 25 mg 01/08/19 21:00 01/09/19 05:10 Lopressor PO 25 mg BID SIMON Administration Metoprolol Tartrate 25 mg 01/09/19 09:27 Lopressor PO 01/09/19 09:28 ONCE STA Naloxone HCl 0.2 mg 01/08/19 18:29 Narcan IV Q2M PRN Opioid Reversal Pantoprazole Sodium 40 mg 01/09/19 09:00 01/09/19 09:17 Protonix PO 40 mg DAILY SIMON Administration Intake and Output 01/08/19 01/09/19 01/09/19 22:59 06:59 14:59 Intake Total 180 Balance 180 Intake: Oral 180 Other: Voiding Method CAPD CAPD # Voids 0 Weight 53.07 kg 56.5 kg 01/09/19 05:27 01/09/19 05:27 Assessment and Plan Assessment: #1 paroxysmal atrial fibrillation with rapid ventricular response, a nticoagulated on Eliquis #2 acute exacerbation COPD #3 end-stage renal disease, on peritoneal dialysis #4 elevated troponins, similar to previous admission, likely secondary to underlying renal failure #5 elevated NT proBNP, improved since last admission, likely secondary to end- stage renal failure #6 hypertension Plan: From cardiology perspective, we will give additional dose of beta jil this morning and increase metorpolol to 50 mg BID. Continue to monitor heart rate and blood pressures. We will continue to follow the patient and provide further recommendations accordingly. TIN ROOFER note has been reviewed, I agree with a documented findings and plan of care. Patient was seen and examined.
--- NOTE | 2019-01-09 10:15 | P.NPCON ---
History of Present Illness - Reason for Consult end stage renal disease - History of Present Illness Reason for consultation: End-stage renal disease History of present illness: Patient is a 73-year-old female seen in renal consultation for end-stage renal disease. She is maintained on peritoneal dialysis. Patient presented to the hospital with dyspnea. She also sustained a fall yesterday after she tripped on a rug. She denies losing consciousness. No vomiting or diarrhea. No problems with peritoneal dialysis. Dyspnea is improved. Denies fever or chills. No chest pain. No edema in her lower extremities. No evidence of significant fluid overload on chest x-ray. She also has history of COPD and is currently maintained on IV steroids as well as bronchodilator therapy. Currently sitting up in chair. No active complaints. Vital signs are stable. General: The patient appeared well nourished and normally developed. HEENT: Head exam is unremarkable. Neck is without jugular venous distension. LUNGS: Lungs are clear to auscultation and percussion. Breath sounds decreased. HEART: Rate and Rhythm are regular. First and second heart sounds normal. No murmurs, rubs or gallops. ABDOMEN: Abdominal exam reveals normal bowel sounds. Non-tender and non- distended. EXTREMITITES: No clubbing, cyanosis, or edema. Past Medical History Past Medical History: Atrial Fibrillation, Asthma, Heart Failure, COPD, CVA/TIA, Hypertension, Osteoarthritis (OA), Pneumonia, Renal Disease, Syncope Additional Past Medical History / Comment(s): CVA 2005, ESRD, Dialysis cath inserted 02-02-18 gets dialysis . History of Any Multi-Drug Resistant Organisms: None Reported Past Surgical History: Tonsillectomy Additional Past Surgical History / Comment(s): ORIF rt ankle-[address], IUD removal, lumbar steroid injections, dental implants, cardioversion, dialysis cath. has ocl on l wrist, states fell 1 1/2 month ago and has a hairline fracture of wrist Past Anesthesia/Blood Transfusion Reactions: No Reported Reaction Additional Past Anesthesia/Blood Transfusion Reaction / Comment(s): Past blood transfusions - no reaction Past Psychological History: Anxiety Smoking Status: Former smoker Past Alcohol Use History: None Reported Past Drug Use History: None Reported - Past Family History Mother Family Medical History: No Reported History Additional Family Medical History / Comment(s): Mother in her 80s from abdominal aortic aneurysm. Father Family Medical History: Myocardial Infarction ([place]) Additional Family Medical History / Comment(s): Father at age 52 from acute [place]. Medications and Allergies Home Medications Medication Instructions Recorded Confirmed Type Megestrol [Megace] 40 mg PO DAILY 12/28/18 01/08/19 History Omeprazole [PriLOSEC] 20 mg PO DAILY 12/28/18 01/08/19 History Amiodarone [Cordarone] 400 mg PO BID #30 tab 01/03/19 01/08/19 Rx Apixaban [Eliquis] 2.5 mg PO BID #60 tab 01/03/19 01/08/19 Rx Budesonide [Pulmicort] 0.5 mg INHALATION RT-BID #30 nebu 01/03/19 01/08/19 Rx Ipratropium-Albuterol Nebulize 3 ml INHALATION RT-Q4H PRN #90 01/03/19 01/08/19 Rx [Duoneb 0.5 mg-3 mg/3 ml Soln] ampul.neb Metoprolol Tartrate [Lopressor] 25 mg PO BID #60 tab 01/03/19 01/08/19 Rx Allergies Allergy/AdvReac Type Severity Reaction Status Date / Time No Known Allergies Allergy Verified 01/08/19 17:03 Physical Exam Vitals: Vital Signs Temp Pulse Pulse Resp BP BP Pulse Ox 01/09/19 09:03 104 H 01/09/19 08:47 104 H 01/09/19 03:41 98.2 F 67 16 156/82 98 01/09/19 00:00 97.9 F 89 15 142/84 98 01/08/19 23:08 98.1 F 89 16 142/84 98 01/08/19 20:55 90 01/08/19 20:40 90 01/08/19 20:00 97.9 F 86 15 161/82 100 01/08/19 19:07 97.9 F 90 25 H 129/93 99 01/08/19 17:37 98.1 F 95 25 H 132/68 100 01/08/19 16:25 25 H Intake and Output 01/08/19 01/09/19 01/09/19 22:59 06:59 14:59 Intake Total 180 Balance 180 Intake: Oral 180 Other: Voiding Method CAPD CAPD # Voids 0 Weight 53.07 kg 56.5 kg Results - Lab Results Most recent lab results Calcium 9.1 mg/dL (8.4-10.2) 01/09/19 05:27 Magnesium 1.8 mg/dL (1.6-2.3) 01/08/19 16:45 01/09/19 05:27 01/09/19 05:27 Assessment and Plan Plan: Assessment: 1. End-stage renal disease maintained on peritoneal dialysis. 2. Dyspnea secondary to COPD exacerbation. No evidence of gross fluid overload at this time. 3. Paroxysmal A. fib maintained on amiodarone, Lopressor and anticoagulation. 4. Hyponatremia secondary to chronic kidney disease and excess fluid intake. 5. Metabolic acidosis secondary to chronic kidney disease. Plan: Maintain PD exchanges with 2 L every 6 hours with 2.5% dextrose solution. 1200 mL fluid restriction. Add oral sodium bicarbonate. Repeat electrolytes in the morning. Thank you for the consultation. I will continue to follow the patient with you during her hospital stay.
[2019-01-09 12:12] LABS: Glucose,Whole Blood 136 mg/dL (75-99)
[2019-01-09] MEDS: SODIUM BICARBONATE TAB 650 MG TAB PO SCH ×2 (13:45→20:57)
[2019-01-09 16:54] LABS: Glucose,Whole Blood 206 mg/dL (75-99)
[2019-01-09 20:30] LABS: Glucose,Whole Blood 200 mg/dL (75-99)
[2019-01-09] MEDS: METOPROLOL TARTRATE 50 MG TAB PO SCH (20:57)
--- NOTE | 2019-01-09 23:12 | PN ---
PROGRESS NOTE DATE OF SERVICE: 01/09/2019 This 73-year-old woman who was admitted with generalized weakness and chronic obstructive pulmonary disease acute exacerbation is being closely monitored. The patient also had chronic renal failure on CAPD also. The patient has significant weakness. In the previous admissions, the patient refused ECF rehab. Currently the patient is open to considering ECF rehab at this time. The troponins also elevated and patient also seen by Cardiology and Nephrology. PAST MEDICAL HISTORY: Reviewed. REVIEW OF SYSTEMS: CARDIOVASCULAR SYSTEM: No angina or palpitations. RESPIRATION: As mentioned earlier. GI no nausea or vomiting. no dysuria. NERVOUS SYSTEM: No numbness. No weakness. CURRENT MEDICATIONS: Reviewed and include: 1. Tylenol 500 mg q.6h p.r.n. 2. [place] 5 mg q.6h p.r.n. 3. DuoNeb q.i.d. and p.r.n. 4. Xanax 0.5 t.i.d. 5. Cordarone 400 mg daily. 6. Eliquis 2.5 mg daily. 7. Pulmicort 0.5 mg b.i.d. 8. Rocephin 1 g daily. 9. NovoLog. 10.Megace 40 mg. 11.Solu-Medrol 40 IV q.i.d. 12.Lopressor 50 mg b.i.d. 13.Narcan 0.2 q.2h. 14.Protonix. 15.Peritoneal dialysis. 16.Sodium bicarb reconstitutes 650 mg p.o. b.i.d. PHYSICAL EXAMINATION: Patient is alert, oriented x3. Pulse 96, blood pressure 140/80, respiration 18, temperature 98.2, pulse ox 99% on 3 L. HEENT: Conjunctivae normal. NECK: No jugular venous distention. CARDIOVASCULAR: S1, S2 muffled. RESPIRATION: Breath sounds diminished in the bases. Bilateral scattered rhonchi and crackles. Expiratory wheezing also present. ABDOMEN: Soft, nontender. No mass palpable. LEGS: No edema. No swelling. NERVOUS SYSTEM: No focal deficits. LABS: WBC 8, hemoglobin 11.7, sodium is 124 and troponin 0.1. ASSESSMENT: 1. Generalized weakness and tiredness, shortness of breath, possible chronic obstructive pulmonary disease acute exacerbation with acute purulent tracheobronchitis with bronchopneumonia, bilateral. 2. Chronic renal failure. 3. Chronic obstructive pulmonary disease. 4. Troponin 0.[address]-segment myocardial infarction. 5. Hyponatremia. 6. Elevated NT proBNP, possibly congestive heart failure with chronic systolic dysfunction. 7. Gait dysfunction. 8. Atrial fibrillation, history of paroxysmal. 9. ST-T changes on the EKG. 10.History of asthma. 11.History of congestive heart failure. 12.History of chronic obstructive pulmonary disease. 13.History of cerebrovascular accident, transient ischemic attack. 14.Hypertension. 15.Gait dysfunction. 16.History of degenerative joint disease. 17.History of pneumonia. 18.History of cerebrovascular accident. 19.History of tonsillectomy. 20.History of anxiety. 21.Remote history of nicotine dependence. 22.Severe protein calorie malnutrition, BMI of 19.5. 23.FULL CODE. RECOMMENDATIONS AND DISCUSSION: This 73-year-old woman who presented with multiple medical issues, at this time, I recommend continue the current medications, continue with symptomatic treatment. Continue with broad-spectrum IV antibiotics, bronchodilators, steroids, PT/ OT evaluation, possible ECF rehab. As mentioned earlier, patient is open to considering ECF rehab at this time. Further recommendations to follow. Dr. Hudson will follow. Repeat labs have been ordered. Nephrology input appreciated. MMODL / IJN: [id number] /
[2019-01-10] MEDS: DIALYSIS (PERIT 2.5%) 2,000 ML 50 G/2,000 ML BAG INTRAPERIT SCH ×4 (00:15→17:38)
[2019-01-10] MEDS: methylPREDNISolone SOD SUCCI 40 MG/ML 1 ML VIAL IV SCH ×2 (00:18→08:26)
[2019-01-10 07:16] LABS: Glucose,Whole Blood 181 mg/dL (75-99)
[2019-01-10] MEDS: BUDESONIDE 0.5 MG/2 ML NEBU INHALATION SCH ×2 (07:51→21:39)
[2019-01-10] MEDS: METOPROLOL TARTRATE 50 MG TAB PO SCH ×2 (08:26→20:52)
[2019-01-10] MEDS: APIXABAN 2.5 MG TABLET PO SCH ×2 (08:26→20:51)
[2019-01-10] MEDS: PANTOPRAZOLE 40 MG TABLET PO SCH (08:26)
[2019-01-10] MEDS: SODIUM BICARBONATE TAB 650 MG TAB PO SCH ×2 (08:26→20:52)
[2019-01-10] MEDS: INSULIN ASPART (NovoLOG) 100 UNIT/ML VIAL SQ SCH ×4 (08:26→22:48)
[2019-01-10] MEDS: AMIODARONE 200 MG TAB PO SCH ×3 (08:26→20:51)
[2019-01-10 09:09] LABS: Anisocytosis Slight; Basophils % (A) 0 %; Eosinophils % (A) 0 %; HCT 35.8 % (34.0-46.0); HGB 11.8 gm/dL (11.4-16.0); Lymphocytes # (A) 0.4 k/uL (1.0-4.8); Lymphocytes % (A) 3 %; MCH 31.7 pg (25.0-35.0); MCHC 32.9 g/dL (31.0-37.0); MCV 96.5 fL (80.0-100.0); Macrocytosis Slight; Mean Platelet Volume 7.2; Monocytes # (A) 0.5 k/uL (0-1.0); Monocytes % (A) 4 %; Neutrophils # (A) 13.1 k/uL (1.3-7.7); Neutrophils % (A) 93 %; Platelet Count 438 k/uL (150-450); RBC 3.71 m/uL (3.80-5.40); RDW 16.5 % (11.5-15.5)
[2019-01-10 09:12] LABS: Potassium 4.8 mmol/L (3.5-5.1)
[2019-01-10] MEDS ORDERED: predniSONE 20 MG TAB PO STA (09:16)
--- NOTE | 2019-01-10 09:26 | P.DS ---
Providers Date of admission: 01/09/19 16:28 Expected date of discharge: 01/10/19 Attending physician: Steve Hudson Consults: 01/08/19 19:46 Consult Physician Routine Consulting Provider: Alfredo Wilde Consult Reason/Comments: Known Patient; CAPD Do you want consulting provider notified?: Yes, Notify in am 01/08/19 20:21 Consult Physician Routine Consulting Provider: Mateusz Lemon Consult Reason/Comments: high trops, BNP Do you want consulting provider notified?: Yes Primary care physician: Soren Desai Hospital Course: Hospital course: Patient admitted multiple medical problems admitted with shortness of breath. Barney to have pneumonia.'s treated with IV ceftriaxone. Also treated for COPD exacerbation. Also is on end-stage hemodialysis on peritoneal dialysis. Treated for the same by nephrology. Put on fluid restriction because of low sodium. Today-feeling much better. No cough. No sputum production. No fever no chills. Feeling really well. Keen to go to the ECF. Eating well. Had peritoneal dialysis done this morning. Care was discussed with the patient. Questions were answered. Discussion and discharge planning more than 35 minutes On examination: 97.8, 118, 20, 132/83, 95% on room air Sitting at the edge of bed, comfortable Lungs decreased breath sounds Extremities no edema Psych AAO 3 mood and affect normal Labs: White count 14 hemoglobin 11.8 platelets 438 Sodium 124 bicarb 17 bun 86 creatinine 8.26 Consultation: Dr. Tamar Wilde from nephrology Disposition: [facility] Patient Condition at Discharge: Stable Plan - Discharge Summary Discharge Rx Participant: Yes New Discharge Prescriptions: New Metoprolol Tartrate [Lopressor] 50 mg PO BID tab Cefdinir [Omnicef] 300 mg PO BID #6 cap predniSONE 0 mg PO DIRECTED #1 tab Sodium Bicarbonate Tab 650 mg PO BID tab Continue Omeprazole [PriLOSEC] 20 mg PO DAILY Budesonide [Pulmicort] 0.5 mg INHALATION RT-BID #30 nebu Apixaban [Eliquis] 2.5 mg PO BID #60 tab Megestrol [Megace] 40 mg PO DAILY #3 tab Changed Amiodarone [Cordarone] 400 mg PO DAILY #30 tab Ipratropium-Albuterol Nebulize [Duoneb 0.5 mg-3 mg/3 ml Soln] 3 ml INHALATION TID #90 ampul.neb Discontinued Metoprolol Tartrate [Lopressor] 25 mg PO BID #60 tab Discharge Medication List Omeprazole [PriLOSEC] 20 mg PO DAILY 12/28/18 [History] Apixaban [Eliquis] 2.5 mg PO BID #60 tab 01/03/19 [Rx] Budesonide [Pulmicort] 0.5 mg INHALATION RT-BID #30 nebu 01/03/19 [Rx] Amiodarone [Cordarone] 400 mg PO DAILY #30 tab 01/10/19 [Rx] Cefdinir [Omnicef] 300 mg PO BID #6 cap 01/10/19 [Rx] Ipratropium-Albuterol Nebulize [Duoneb 0.5 mg-3 mg/3 ml Soln] 3 ml INHALATION TID #90 ampul.neb 01/10/19 [Rx] Megestrol [Megace] 40 mg PO DAILY #3 tab 01/10/19 [Rx] Metoprolol Tartrate [Lopressor] 50 mg PO BID tab 01/10/19 [Rx] Sodium Bicarbonate Tab 650 mg PO BID tab 01/10/19 [Rx] predniSONE 0 mg PO DIRECTED #1 tab 01/10/19 [Rx] Follow up Appointment(s)/Referral(s): Soren Desai MD [Primary Care Provider] - 1-2 days
[2019-01-10] MEDS ORDERED: CEFDINIR 300 MG CAP PO SCH (09:30)
[2019-01-10] MEDS: MEGESTROL 40 MG TAB PO SCH (09:54)
[2019-01-10 12:07] LABS: Glucose,Whole Blood 118 mg/dL (75-99)
--- NOTE | 2019-01-10 12:19 | PN ---
PROGRESS NOTE Patient is seen for followup for end-stage renal disease. She was admitted to the hospital with shortness of breath, which is mostly pulmonary related. No significant volume overload noted. She has been tolerating her PD exchanges very well and has been getting about 500 mL of ultrafiltration with each exchange. PHYSICAL EXAMINATION: On examination this morning, blood pressure is 132/83, heart rate 118 per minute. Patient is afebrile. EXAMINATION OF THE HEART: S1, S2. EXAMINATION OF THE LUNGS: Good air entry bilaterally. Abdomen is soft, nontender. Examination of lower extremities shows no evidence of edema. LABS: Labs show hemoglobin 11.8, sodium 129, potassium 4.8, BUN 92, serum creatinine 8.29. ASSESSMENT: 1. End-stage renal disease, currently maintained on peritoneal dialysis. Continue with current PD exchanges. 2. Dyspnea, mainly related to chronic obstructive pulmonary disease exacerbation, currently improved. 3. Chronic kidney disease mineral bone disorder. PLAN: Patient is stable for discharge from Nephrology standpoint. Continue current medications. Monitor blood pressure as outpatient. MMODL / IJN: [id number] /
[2019-01-10] MEDS ORDERED: METOPROLOL TARTRATE 25 MG TAB PO STA (13:08)
--- NOTE | 2019-01-10 13:18 | P.PN ---
Subjective This is a pleasant 73-year-old female patient who follows with Dr. Solis in the office. She has a history of end-stage renal disease on peritoneal dialysis, paroxysmal atrial fibrillation, chronic diastolic heart failure, hypertension, hyperlipidemia, prior TIA, and COPD. She was recently admitted to the hospital with acute COPD exacerbation at which time she was found to be in atrial fibrillation with rapid ventricular response and an echocardiogram showed an ejection fraction of 20-25%. She subsequently converted to sinus rhythm and repeat echocardiogram showed an ejection fraction of 50-55%. She presents this admission with similar complaints worsening shortness of breath over one day. She denies any cough denies fever or chills denies palpitations, chest discomfort, dizziness, lightheadedness, edema, abdominal pain or syncope. She's been doing her peritoneal dialysis 4 times a day as ordered and taking all of her medications as prescribed. She is apparently also been having some issues with tripping and falling at home and the is having difficulties helping to care for her. EKG on admission did show sinus rhythm. We were asked to patient in consultation due to elevated troponins and elevated BNP. Labs on adm ission showed a BUN of 71 and creatinine of 8.51. Troponins have been elevated at 0.135, 0.098 and 0.1 which are very similar to levels drawn previous admission on the of this month. NT proBNP is elevated at 188,000 which is down from previous admission at which time it was greater than 350,000. Chest x-ray on admission showed no active cardiopulmonary disease, mild pulmonary fibrotic changes with no significant change compared to old exam. Upon examination, patient is resting comfortably in bed. She feels her breathing is better this morning. Nursing staff had her up walking to the bathroom and oxygen saturations dropped to 86% with activity which recovered with oxygen. She did go into atrial fibrillation with rapid ventricular response at around 4 this morning and her morning amiodarone 40 mg and metoprolol tartrate 25 mg were given at 5 AM. She remains in atrial fibrillation. 01/10/2019 Patient is seen and examined sitting up on the edge of the bed. She just finished working with physical therapy. She states overall her breathing has improved since admission. She denies symptoms of chest discomfort, dizziness, palpitations or shortness of breath. ASSESSMENT Paroxysmal atrial fibrillation with rapid ventricular response, resolved. Currently maintaining sinus mechanism Acute exacerbation of COPD End-stage renal disease on peritoneal dialysis Elevated troponin, similar to previous admission. Likely secondary to underlying renal failure. Elevated NT proBNP, improved since last admission. Secondary to end-stage renal failure. Hypertension PLAN Increase Lopressor 75 mg twice a day. Decrease amiodarone to 200 mg TID for 2 weeks, then 200 mg daily thereafter. Stable from a cardiac perspective. Follow-up with Dr. Curry upon discharge. Nurse Practitioner note has been reviewed, I agree with a documented findings and plan of care. Patient was seen and examined. Objective - Vital Signs Vital signs: Vital Signs Temp 98.0 F 01/10/19 12:10 Pulse 83 01/10/19 12:10 Resp 20 01/10/19 06:22 BP 132/85 01/10/19 12:10 Pulse Ox 95 01/10/19 06:22 Intake & Output 01/09/19 01/10/19 01/10/19 18:59 06:59 18:59 Intake Total 1020 326 Balance 1020 326 Intake: Oral 1020 326 Other: Voiding Method CAPD CAPD CAPD # Voids 0 - Labs CBC & Chem 7: 01/10/19 07:53 01/10/19 07:53 Labs: Abnormal Lab Results - Last 24 Hours (Table) 01/09/19 01/09/19 01/10/19 Range/Units 16:52 20:29 07:12 WBC (3.8-10.6) k/uL RBC (3.80-5.40) m/uL RDW (11.5-15.5) % Neutrophils # (1.3-7.7) k/uL Lymphocytes # (1.0-4.8) k/uL Sodium (137-145) mmol/L Chloride (98-107) mmol/L Carbon Dioxide (22-30) mmol/L BUN (7-17) mg/dL Creatinine (0.52-1.04) mg/dL Glucose (74-99) mg/dL POC Glucose (mg/dL) 206 H 200 H 181 H (75-99) mg/dL 01/10/19 01/10/19 01/10/19 Range/Units 07:53 07:53 11:40 WBC 14.0 H (3.8-10.6) k/uL RBC 3.71 L (3.80-5.40) m/uL RDW 16.5 H (11.5-15.5) % Neutrophils # 13.1 H (1.3-7.7) k/uL Lymphocytes # 0.4 L (1.0-4.8) k/uL Sodium 129 L (137-145) mmol/L Chloride 88 L (98-107) mmol/L Carbon Dioxide 21 L (22-30) mmol/L BUN 92 H (7-17) mg/dL Creatinine 8.29 H* (0.52-1.04) mg/dL Glucose 170 H (74-99) mg/dL POC Glucose (mg/dL) 118 H (75-99) mg/dL Microbiology - Last 24 Hours (Table) 01/08/19 23:45 Gram Stain - Preliminary Peritoneal Fluid Body Fluid Culture - Preliminary
[2019-01-10 16:57] LABS: Glucose,Whole Blood 184 mg/dL (75-99)
[2019-01-10 21:53] LABS: Glucose,Whole Blood 165 mg/dL (75-99)
[2019-01-11] MEDS: ALPRAZolam 0.25 MG TAB PO PRN (00:39)
--- NOTE | 2019-01-11 00:44 | P.PN ---
Progress Note - Text Progress Note Date: 01/10/19 Presenting complaint: Short of breath Interval history Patient admitted multiple medical problems admitted with shortness of breath. [place] to have pneumonia.'s treated with IV ceftriaxone. Also treated for COPD exacerbation. Also is on end-stage hemodialysis on peritoneal dialysis. Treated for the same by nephrology. Put on fluid restriction because of low sodium. Today-feeling much better. No cough. No sputum production. No fever no chills. Feeling really well. Keen to go to the F. Eating well. Had peritoneal dialysis done this morning. Care was discussed with the patient. Questions were answered Review of systems: Was done for constitutional, cardiovascular, GI, pulmonary. relevant finding as above Active Medications Acetaminophen (Tylenol Tab) 500 mg PO Q6HR PRN PRN Reason: Fever and/ or Pain Hydrocodone Bitart/Acetaminophen ([place] 5-325) 1 each PO Q6HR PRN PRN Reason: Pain Albuterol/Ipratropium (Duoneb 0.5 Mg-3 Mg/3 Ml Soln) 3 ml INHALATION RT-Q4H PRN PRN Reason: Shortness Of Breath Or Wheezing Alprazolam (Xanax) 0.25 mg PO TID PRN PRN Reason: Anxiety Last Admin: 01/11/19 00:39 Dose: 0.25 mg Documented by: Amiodarone HCl (Cordarone) 200 mg PO TID [facility] Last Admin: 01/10/19 20:51 Dose: 200 mg Documented by: Apixaban (Eliquis) 2.5 mg PO BID [facility] Last Admin: 01/10/19 20:51 Dose: 2.5 mg Documented by: Budesonide (Pulmicort) 0.5 mg INHALATION RT-BID [facility] Last Admin: 01/10/19 21:39 Dose: Not Given Documented by: Cefdinir (Omnicef) 300 mg PO DAILY [facility] Peritoneal Dialysis Solution (Delflex With 2.5% Dextrose (2,000 Ml)) 50 g in 2,000 mls @ 0 mls/hr INTRAPERIT Q6HR [facility]; Protocol Last Admin: 01/10/19 17:38 Dose: 2,000 mls/hr Documented by: Insulin Aspart (Novolog) 0 unit SQ ACHS [facility]; Protocol Last Admin: 01/10/19 22:48 Dose: 1 unit Documented by: Megestrol Acetate (Megace) 40 mg PO DAILY [facility] Last Admin: 01/10/19 09:54 Dose: 40 mg Documented by: Metoprolol Tartrate (Lopressor) 75 mg PO BID [facility] Last Admin: 01/10/19 20:52 Dose: 75 mg Documented by: Naloxone HCl (Narcan) 0.2 mg IV Q2M PRN PRN Reason: Opioid Reversal Pantoprazole Sodium (Protonix) 40 mg PO DAILY [facility] Last Admin: 01/10/19 08:26 Dose: 40 mg Documented by: Sodium Bicarbonate (Sodium Bicarbonate Tab) 650 mg PO BID [facility] Last Admin: 01/10/19 20:52 Dose: 650 mg Documented by: On examination: VITAL SIGNS: [98.3, 66, 16, 141/98, 100% room air] GENERAL APPEARANCE: Sitting at edge edge of bed, comfortable. HEENT: Normal external appearance of nose and ear. Oral cavity normal EYES: Pupils equal. Conjunctiva normal. NECK: JVD not raised. Mass not palpable. RESPIRATORY: Respiratory effort increased, decreased breath sounds. CARDIOVASCULAR: First and second sounds normal. No edema. ABDOMEN: Soft. Liver and spleen not palpable. No tenderness. No mass palpable. PD catheter in place PSYCHIATRY: Alert and oriented x3. Mood and affect normal. 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 Patient is much improved. Patient is stable to be discharged to the ECF. Discharged earlier today was canceled as the place of disposition has been changed. Await further input from social wor ker. Care was discussed with the patient.
[2019-01-11] MEDS: DIALYSIS (PERIT 2.5%) 2,000 ML 50 G/2,000 ML BAG INTRAPERIT SCH ×4 (00:48→17:29)
[2019-01-11 07:29] LABS: Glucose,Whole Blood 179 mg/dL (75-99)
[2019-01-11] MEDS: IPRATROPIUM-ALBUTEROL 3 ML NEB INHALATION PRN ×2 (07:53→11:20)
[2019-01-11] MEDS: BUDESONIDE 0.5 MG/2 ML NEBU INHALATION SCH ×2 (07:53→19:55)
[2019-01-11] MEDS: APIXABAN 2.5 MG TABLET PO SCH ×2 (08:43→20:48)
[2019-01-11] MEDS: METOPROLOL TARTRATE 50 MG TAB PO SCH ×2 (08:43→20:48)
[2019-01-11] MEDS: MEGESTROL 40 MG TAB PO SCH (08:43)
[2019-01-11] MEDS: SODIUM BICARBONATE TAB 650 MG TAB PO SCH ×2 (08:43→20:48)
[2019-01-11] MEDS: INSULIN ASPART (NovoLOG) 100 UNIT/ML VIAL SQ SCH ×4 (08:44→20:50)
[2019-01-11] MEDS: AMIODARONE 200 MG TAB PO SCH ×3 (08:44→20:48)
[2019-01-11] MEDS: CEFDINIR 300 MG CAP PO SCH (08:45)
[2019-01-11] MEDS: PANTOPRAZOLE 40 MG TABLET PO SCH (08:45)
[2019-01-11 11:20] LABS: Basophils % (A) 0 %; Eosinophils % (A) 0 %; HCT 41.8 % (34.0-46.0); HGB 13.5 gm/dL (11.4-16.0); Lymphocytes # (A) 0.8 k/uL (1.0-4.8); Lymphocytes % (A) 5 %; MCH 31.7 pg (25.0-35.0); MCHC 32.3 g/dL (31.0-37.0); MCV 98.1 fL (80.0-100.0); Macrocytosis Slight; Mean Platelet Volume 6.7; Monocytes # (A) 1.1 k/uL (0-1.0); Monocytes % (A) 6 %; Neutrophils # (A) 15.7 k/uL (1.3-7.7); Neutrophils % (A) 87 %; Platelet Count 489 k/uL (150-450); RBC 4.26 m/uL (3.80-5.40); RDW 15.5 % (11.5-15.5); WBC 18.1 k/uL (3.8-10.6)
[2019-01-11 11:29] LABS: Calcium 9.1 mg/dL (8.4-10.2); Potassium 5.1 mmol/L (3.5-5.1)
[2019-01-11 12:12] LABS: Glucose,Whole Blood 126 mg/dL (75-99)
[2019-01-11] MEDS: LISINOPRIL 5 MG TAB PO SCH (17:38)
[2019-01-11 17:44] LABS: Glucose,Whole Blood 148 mg/dL (75-99)
--- NOTE | 2019-01-11 17:57 | PN ---
PROGRESS NOTE She denies any significant complaints. The patient is doing well. Shortness of breath has improved. No issues with peritoneal dialysis. There are plans for discharge to [facility] which is [facility]. PHYSICAL EXAMINATION: This morning blood pressure was 131/80, heart rate 84 per minute, patient is afebrile. Examination of the heart S1, S2. Examination of the lungs, bilateral breath sounds are heard. Abdomen is soft, nontender. Examination lower extremities shows no significant edema. GUI DEVELOPER exam grossly intact. LAB: Show hemoglobin 13.5, sodium 130, potassium 4.1, creatinine 8.1, BUN 104. ASSESSMENT: 1. End-stage renal disease, on peritoneal dialysis. Continue current PD exchanges. 2. Hypertension, currently controlled. 3. Volume overload, now improved. 4. Chronic obstructive pulmonary disease exacerbation, currently improved. PLAN: We will monitor closely as outpatient for resuming ZO inhibitors as blood pressure is currently trending up. I will add low-dose lisinopril today. MMODL / IJN: [id number] /
[2019-01-11 20:24] LABS: Glucose,Whole Blood 103 mg/dL (75-99)
--- NOTE | 2019-01-11 23:52 | P.PN ---
Progress Note - Text Progress Note Date: 01/11/19 Presenting complaint: Short of breath Interval history Patient admitted multiple medical problems admitted with shortness of breath. [place] to have pneumonia.'s treated with IV ceftriaxone. Also treated for COPD exacerbation. Also is on end-stage hemodialysis on peritoneal dialysis. Treated for the same by nephrology. Put on fluid restriction because of low sodium. Today-stable. No new issues. Eating peritoneal dialysis. Awaiting placement. at the bedside. Comfortable. Breathing stable. Review of systems: Was done for constitutional, cardiovascular, GI, pulmonary. relevant finding as above Active Medications Acetaminophen (Tylenol Tab) 500 mg PO Q6HR PRN PRN Reason: Fever and/ or Pain Hydrocodone Bitart/Acetaminophen ([place] 5-325) 1 each PO Q6HR PRN PRN Reason: Pain Albuterol/Ipratropium (Duoneb 0.5 Mg-3 Mg/3 Ml Soln) 3 ml INHALATION RT-Q4H PRN PRN Reason: Shortness Of Breath Or Wheezing Last Admin: 01/11/19 11:20 Dose: 3 ml Documented by: Alprazolam (Xanax) 0.25 mg PO TID PRN PRN Reason: Anxiety Last Admin: 01/11/19 00:39 Dose: 0.25 mg Documented by: Amiodarone HCl (Cordarone) 200 mg PO TID [facility] Last Admin: 01/11/19 20:48 Dose: 200 mg Documented by: Apixaban (Eliquis) 2.5 mg PO BID [facility] Last Admin: 01/11/19 20:48 Dose: 2.5 mg Documented by: Budesonide (Pulmicort) 0.5 mg INHALATION RT-BID [facility] Last Admin: 01/11/19 19:55 Dose: Not Given Documented by: Cefdinir (Omnicef) 300 mg PO DAILY [facility] Last Admin: 01/11/19 08:45 Dose: 300 mg Documented by: Peritoneal Dialysis Solution (Delflex With 2.5% Dextrose (2,000 Ml)) 50 g in 2,000 mls @ 0 mls/hr INTRAPERIT Q6HR [facility]; Protocol Last Admin: 01/11/19 17:29 Dose: 1 mls/hr Documented by: Insulin Aspart (Novolog) 0 unit SQ ACHS [facility]; Protocol Last Admin: 01/11/19 20:50 Dose: Not Given Documented by: Lisinopril (Zestril) 5 mg PO DAILY [facility] Last Admin: 01/11/19 17:38 Dose: 5 mg Documented by: Megestrol Acetate (Megace) 40 mg PO DAILY [facility] Last Admin: 01/11/19 08:43 Dose: 40 mg Documented by: Metoprolol Tartrate (Lopressor) 75 mg PO BID [facility] Last Admin: 01/11/19 20:48 Dose: 75 mg Documented by: Naloxone HCl (Narcan) 0.2 mg IV Q2M PRN PRN Reason: Opioid Reversal Pantoprazole Sodium (Protonix) 40 mg PO DAILY [facility] Last Admin: 01/11/19 08:45 Dose: 40 mg Documented by: Sodium Bicarbonate (Sodium Bicarbonate Tab) 650 mg PO BID [facility] Last Admin: 01/11/19 20:48 Dose: 650 mg Documented by: On examination: VITAL SIGNS: 97.9, 81, 16, 159 bun 94, 99% room air GENERAL APPEARANCE: Sitting at edge edge of bed, comfortable. HEENT: Normal external appearance of nose and ear. Oral cavity normal EYES: Pupils equal. Conjunctiva normal. NECK: JVD not raised. Mass not palpable. RESPIRATORY: Respiratory effort increased, decreased breath sounds. CARDIOVASCULAR: First and second sounds normal. No edema. ABDOMEN: Soft. Liver and spleen not palpable. No tenderness. No mass palpable. PD catheter in place PSYCHIATRY: Alert and oriented x3. Mood and affect normal. 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 Spoke to the social service assistant. They're looking for a place for patient to go for inpatient rehab. Await the same. Discussed with the patient and the .
[2019-01-12] MEDS: DIALYSIS (PERIT 2.5%) 2,000 ML 50 G/2,000 ML BAG INTRAPERIT SCH ×4 (00:32→17:20)
[2019-01-12] MEDS ORDERED: ALPRAZolam 0.25 MG TAB ONE (03:42)
[2019-01-12 07:18] LABS: Glucose,Whole Blood 111 mg/dL (75-99)
[2019-01-12] MEDS: BUDESONIDE 0.5 MG/2 ML NEBU INHALATION SCH (08:18)
[2019-01-12] MEDS: CEFDINIR 300 MG CAP PO SCH (08:58)
[2019-01-12] MEDS: INSULIN ASPART (NovoLOG) 100 UNIT/ML VIAL SQ SCH ×4 (08:58→21:21)
[2019-01-12] MEDS: APIXABAN 2.5 MG TABLET PO SCH ×2 (08:59→21:20)
[2019-01-12] MEDS: LISINOPRIL 5 MG TAB PO SCH (08:59)
[2019-01-12] MEDS: SODIUM BICARBONATE TAB 650 MG TAB PO SCH ×2 (08:59→21:20)
[2019-01-12] MEDS: MEGESTROL 40 MG TAB PO SCH (08:59)
[2019-01-12] MEDS: PANTOPRAZOLE 40 MG TABLET PO SCH (08:59)
[2019-01-12] MEDS: AMIODARONE 200 MG TAB PO SCH ×3 (09:18→21:20)
[2019-01-12] MEDS ORDERED: SODIUM CHLORIDE 0.9% 500 ML 250 ML IV ONE (10:16)
[2019-01-12] MEDS: METOPROLOL TARTRATE 50 MG TAB PO SCH ×2 (10:28→21:20)
[2019-01-12] MEDS ORDERED: MIDODRINE 5 MG TAB PO SCH (10:30)
[2019-01-12 11:23] LABS: Glucose,Whole Blood 132 mg/dL (75-99)
[2019-01-12] MEDS: MIDODRINE 5 MG TAB PO SCH ×2 (12:16→17:23)
[2019-01-12 12:21] LABS: Basophils % (A) 0 %; Eosinophils # (A) 0.1 k/uL (0-0.7); Eosinophils % (A) 0 %; HCT 36.8 % (34.0-46.0); HGB 11.7 gm/dL (11.4-16.0); Lymphocytes # (A) 1.2 k/uL (1.0-4.8); Lymphocytes % (A) 9 %; MCH 31.7 pg (25.0-35.0); MCHC 31.6 g/dL (31.0-37.0); MCV 100.1 fL (80.0-100.0); Macrocytosis Slight; Mean Platelet Volume 6.8; Monocytes % (A) 7 %; Neutrophils # (A) 11.3 k/uL (1.3-7.7); Neutrophils % (A) 81 %; Platelet Count 451 k/uL (150-450); RBC 3.68 m/uL (3.80-5.40); RDW 15.6 % (11.5-15.5); WBC 13.9 k/uL (3.8-10.6)
[2019-01-12 12:33] LABS: Calcium 8.3 mg/dL (8.4-10.2); Total Bilirubin 0.3 mg/dL (0.2-1.3); Total Protein 5.4 g/dL (6.3-8.2)
--- NOTE | 2019-01-12 12:37 | XR ---
EXAMINATION TYPE: XR chest 1V DATE OF EXAM: 01/12/2019 COMPARISON: 01/08/2019 HISTORY: 73 year-old female shortness of breath TECHNIQUE: Single frontal view of the chest is obtained. FINDINGS: Patient is rotated towards the right and oblique towards the left. Heart appears normal size. Mild hy perinflation. Some nodularity at the right lower lung probably represents nipple shadow but can be re assessed at follow-up. Trace effusions difficult to exclude. I'm not described calcification subclavi an arteries. No consolidation. IMPRESSION: 1. Exam limited due to patient positioning. Possible trace effusions. Nodularity in the right lower l terry suspected to represent a nipple shadow. Reassessed at follow-up. 2. Likely underlying COPD. Otherwise, no definite acute process.
[2019-01-12] MEDS: IPRATROPIUM-ALBUTEROL 3 ML NEB INHALATION PRN ×3 (12:49→21:07)
[2019-01-12 17:11] LABS: Glucose,Whole Blood 107 mg/dL (75-99)
--- NOTE | 2019-01-12 17:19 | PN ---
PROGRESS NOTE Patient is seen for followup for end-stage renal disease. The patient's blood pressure had been slightly on the higher side yesterday and she was started on lisinopril. However, it appears that she significantly dropped her systolic blood pressures yesterday and most of this morning as well. The patient received a dose of midodrine and was transferred to the ICU. However, her blood pressure has stabilized. She did not need any further pressors. Heart rate had gone up into the 140 range. Therefore, patient was transferred to the ICU. At this time her heart rate is about 120 beats per minute. The patient is maintained on peritoneal dialysis, which she had been tolerating fairly well. She was scheduled for discharge today to [facility] for rehab. On examination this morning, blood pressure was 80/46, heart rate about 120 per minute. She was afebrile. EXAMINATION OF THE HEART: S1 and S2. EXAMINATION OF LUNGS: Bilateral breath sounds are heard. Decreased breath sounds at bases. ABDOMEN: Soft, non-tender. Examination of lower extremities shows no evidence of edema. MUSIC JOURNALIST exam is grossly intact. Labs from this morning show sodium 131, potassium 4.0, BUN 107, serum creatinine 8.29. ASSESSMENT: 1. End-stage renal disease, maintained on peritoneal dialysis. Will continue current PD exchanges. We can resume the exchanges, as blood pressure has stabilized. 2. Hypotension. It appears that the patient is very sensitive to the ZO inhibitors. We will continue to hold off on the ZO inhibitors for now and maintain patient on Lopressor for rate control for atrial fibrillation. She has received a dose of midodrine. I will maintain her on midodrine until she remains hypotensive. 3. Atrial fibrillation with rapid ventricular response, now with controlled ventricular response, being followed by Cardiology, maintained on amiodarone and Lopressor and Eliquis for anticoagulation. 4. Hypertension. Blood pressure is currently low and patient is now on midodrine. 5. Bilateral renal artery stenosis with episodes of flash pulmonary edema with significant and quick response to ZO inhibitors. I will hold off on the ZO inhibitors for now and we can try very low-dose lisinopril as outpatient. Once the patient's blood pressure increases, she goes into flash pulmonary edema. Therefore she is maintained on ZO inhibitors as outpatient to prevent episodes of flash pulmonary edema and multiple rehospitalizations. MMODL / IJN: [id number] /
--- NOTE | 2019-01-12 20:16 | CONS ---
CONSULTATION PULMONARY/CRITICAL CARE CONSULTATION: DATE OF SERVICE: 01/12/2019 This is a 73-year-old female who apparently presented to the emergency room via EMS because of shortness of breath. The patient had apparently been having increasing and progressive shortness of breath about 4 or 5 days prior to admission. In addition to being short of breath, the patient apparently was very weak and apparently sustained a fall. The patient has been using her breathing medications without benefit. She denies any cough or phlegm production. She denies any fever or chills. She denies any chest pain or chest discomfort. She denies lower extremity edema. She does have a history of atrial fibrillation, for which she is on a factor Xa inhibitor, i.e., Eliquis. She also has chronic renal failure and is on ounsd-8-isoy peritoneal dialysis. Today there was an A team called because the patient was more short of breath, she was hypotensive and was found to be having atrial fibrillation. For that reason, she was transferred up to the ICU. Initially we gave orders for BiPAP, but apparently when she arrived she looked very stable. She did get a breathing treatment, which seemed to help. Currently the patient is resting comfortably. She has oxygen in place. Her is at the bedside. She was a heavy smoker in the past. She smoked for probably 40 years, at least one pack a day, although the patient was not real excited about giving me that history. Her home medications include: 1. Megace. 2. Prilosec. 3. Cordarone. 4. Eliquis. 5. Pulmicort. 6. DuoNeb. 7. Metoprolol. ALLERGIES: DENIED. MEDICAL HISTORY: Medical history includes: 1. Atrial fibrillation. 2. COPD from tobacco use. 3. Heart failure. 4. CVA. 5. Benign essential hypertension. 6. DJD. 7. Pneumonia. 8. Chronic renal failure, currently on peritoneal dialysis. 9. Syncope. 10.She also has a previous history, as I mentioned above, of CVA back in 2005. 11.She had a dialysis catheter inserted in January 2018. SURGICAL HISTORY: Surgical history includes: 1. Previous tonsillectomy. 2. ORIF of the right ankle. 3. IUD removal. 4. Steroid injections to the lumbar spine. 5. Dental implants. 6. Cardioversion. 7. Dialysis catheter. 8. Wrist fracture. SOCIAL HISTORY: Positive for previous heavy tobacco use. She does not smoke currently. She denies any alcohol or illicit drug use. FAMILY HISTORY: Positive for mother who in her 80s from abdominal aortic aneurysm and her father at age 52 from acute myocardial infarction. REVIEW OF SYSTEMS: CONSTITUTIONAL: Weakness. NEUROLOGIC: Negative. HEENT: Negative. CARDIOVASCULAR: Hypotension/atrial fibrillation. PULMONARY: Shortness of breath. GI: Negative. : Negative. RHEUMATOLOGIC: Negative. IMMUNOLOGIC: Negative. ENDOCRINOLOGIC: Negative. DERMATOLOGIC: Negative. PHYSICAL EXAMINATION: VITAL SIGNS: Current vital signs are reviewed. Her temperature is 98.2, heart rate 109 and irregular. She is likely in atrial fibrillation. Respiratory rate 17, blood pressure 127/92, mean 102. Saturations are 98% on 3 L of oxygen. GENERAL: She appears in no acute distress. She is not demonstrating any conversational dyspnea, audible wheezing or use of accessory muscles. HEENT: HEENT examination is grossly unremarkable. Mucous membranes are moist. Nasal oxygen in place. NECK: Supple. Full range of motion. No adenopathy or thyromegaly. Neck veins are flat. CARDIOVASCULAR: Cardiovascular examination reveals irregular rhythm and rate. Heart rate about 115. S1, S2 normal. No S3, S4. A soft systolic murmur is noted. LUNGS: Bibasilar crackles. They are mild. There are some mild expiratory wheezes. No rhonchi. Breath sounds are diminished throughout. ABDOMEN: Soft. Bowel sounds are heard. EXTREMITIES: Intact. No cyanosis, clubbing or significant edema. SKIN: Without rash. NEUROLOGIC: Neurologic examination is brief but nonfocal. LAB DATA/IMAGING: Reviewed. White count 13.9, hemoglobin 11.7, hematocrit 36.8, platelet count 451,000. Sodium 131, potassium 4, chloride 93, CO2 22. Anion gap is 16. BUN and creatinine were 107 and 8.29, respectively. The rest of the labs look okay. She clearly has an anion gap metabolic acidosis secondary to renal failure. She had a chest x-ray on admission which showed no acute cardiopulmonary disease. She had a follow-up chest x-ray on January 12 which showed a nodule in the right lower lobe which may represent a nipple shadow. There are changes of COPD. Otherwise, there is no acute process. Microbiologic studies are thus far negative. ASSESSMENT: 1. Acute hypoxemic respiratory failure with tachycardia and hypotension, likely multifactorial, in part related to underlying chronic obstructive pulmonary disease exacerbation as well as atrial fibrillation with rapid ventricular response. 2. History of chronic renal failure, currently on peritoneal dialysis. 3. Probable chronic obstructive pulmonary disease from heavy tobacco use in the past. 4. History of gastroesophageal reflux disease. 5. History of chronic atrial fibrillation, currently on Eliquis. 6. Previous history of heavy tobacco use. 7. History of hypertension. 8. Previous history of cerebrovascular accident. 9. Previous history of syncope. 10.Degenerative joint disease. 11.Multiple previous surgeries. PLAN: The patient was transferred to the ICU. We will look at her medications and make sure they are appropriate. She appears to be very stable at this time. We will make sure she is on proper medication. We will also get a D-dimer on the patient. Finally, we will get a ventilation-perfusion lung scan, as she cannot have a CT angiogram. Additional recommendations and suggestions are forthcoming. YRN / TRINAN: [id number] /
[2019-01-12] MEDS: BUDESONIDE 1 MG/2 ML NEBU INHALATION SCH (21:07)
[2019-01-12] MEDS: FORMOTEROL FUMARATE 20 MCG/2 ML NEBU INHALATION SCH (21:07)
[2019-01-12 21:22] LABS: Glucose,Whole Blood 105 mg/dL (75-99)
--- NOTE | 2019-01-13 00:02 | P.PN ---
Progress Note - Text Progress Note Date: 01/12/19 Presenting complaint: Short of breath Interval history Patient admitted multiple medical problems admitted with shortness of breath. [place] to have pneumonia.'s treated with IV ceftriaxone. Also treated for COPD exacerbation. Also is on end-stage hemodialysis on peritoneal dialysis. Treated for the same by nephrology. Put on fluid restriction because of low sodium. Today-saw the patient earlier today. Blood pressures running low. Blood pressure medications were adjusted yesterday. Dr. Vargas was called. Fluid bolus was ordered. Late in the afternoon, A team was called out as patient became short of breath. Patient went into A. fib with rapid ventricular rate. Moved to the ICU. Review of systems: Was done for constitutional, cardiovascular, GI, pulmonary. relevant finding as above Active Medications Acetaminophen (Tylenol Tab) 500 mg PO Q6HR PRN PRN Reason: Fever and/ or Pain Hydrocodone Bitart/Acetaminophen ([place] 5-325) 1 each PO Q6HR PRN PRN Reason: Pain Albuterol/Ipratropium (Duoneb 0.5 Mg-3 Mg/3 Ml Soln) 3 ml INHALATION RT-Q4H PRN PRN Reason: Shortness Of Breath Or Wheezing Last Admin: 01/12/19 21:07 Dose: 3 ml Documented by: Alprazolam (Xanax) 0.25 mg PO TID PRN PRN Reason: Anxiety Last Admin: 01/11/19 00:39 Dose: 0.25 mg Documented by: Amiodarone HCl (Cordarone) 200 mg PO TID [facility] Last Admin: 01/12/19 21:20 Dose: 200 mg Documented by: Apixaban (Eliquis) 2.5 mg PO BID [facility] Last Admin: 01/12/19 21:20 Dose: 2.5 mg Documented by: Budesonide (Pulmicort) 1 mg INHALATION RT-BID [facility] Last Admin: 01/12/19 21:07 Dose: 1 mg Documented by: Cefdinir (Omnicef) 300 mg PO DAILY [facility] Last Admin: 01/12/19 08:58 Dose: 300 mg Documented by: Formoterol Fumarate (Perforomist) 20 mcg INHALATION RT-BID [facility] Last Admin: 01/12/19 21:07 Dose: 20 mcg Documented by: Peritoneal Dialysis Solution (Delflex With 2.5% Dextrose (2,000 Ml)) 50 g in 2,000 mls @ 0 mls/hr INTRAPERIT Q6HR [facility]; Protocol Last Admin: 01/12/19 17:20 Dose: 2,000 mls/hr Documented by: Insulin Aspart (Novolog) 0 unit SQ ACHS [facility]; Protocol Last Admin: 01/12/19 21:21 Dose: Not Given Documented by: Megestrol Acetate (Megace) 40 mg PO DAILY [facility] Last Admin: 01/12/19 08:59 Dose: 40 mg Documented by: Metoprolol Tartrate (Lopressor) 75 mg PO BID [facility] Last Admin: 01/12/19 21:20 Dose: 75 mg Documented by: Midodrine (Proamatine) 10 mg PO AC-TID [facility] Last Admin: 01/12/19 17:23 Dose: 10 mg Documented by: Naloxone HCl (Narcan) 0.2 mg IV Q2M PRN PRN Reason: Opioid Reversal Pantoprazole Sodium (Protonix) 40 mg PO DAILY [facility] Last Admin: 01/12/19 08:59 Dose: 40 mg Documented by: Prednisone () 30 mg PO DAILY [facility] Sodium Bicarbonate (Sodium Bicarbonate Tab) 650 mg PO BID [facility] Last Admin: 01/12/19 21:20 Dose: 650 mg Documented by: On examination: VITAL SIGNS: 97.6, 69, 16, 99 x 65, 99% GENERAL APPEARANCE: Laying in bed, tired appearing HEENT: Normal external appearance of nose and ear. Oral cavity normal EYES: Pupils equal. Conjunctiva normal. NECK: JVD not raised. Mass not palpable. RESPIRATORY: Respiratory effort increased, decreased breath sounds. CARDIOVASCULAR: First and second sounds normal. No edema. ABDOMEN: Soft. Liver and spleen not palpable. No tenderness. No mass palpable. PD catheter in place PSYCHIATRY: Alert and oriented x3. Mood and affect normal. 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 fib with a rapid ventricular rate. 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 This morning. Patient is known to be very sensitive to blood pressure medications. Was given IV fluids. Plan: Patient is earlier given IV fluids and midodrine. Had been hypotensive. A. fib into rapid ventricular rate. Patient was moved to the ICU. Dr. Vargas was informed. 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
[2019-01-13] MEDS: DIALYSIS (PERIT 2.5%) 2,000 ML 50 G/2,000 ML BAG INTRAPERIT SCH ×4 (02:32→18:09)
[2019-01-13 05:19] LABS: Anisocytosis Slight; Basophils # (A) 0.1 k/uL (0-0.2); Basophils % (A) 0 %; Eosinophils # (A) 0.2 k/uL (0-0.7); Eosinophils % (A) 1 %; HCT 40.6 % (34.0-46.0); HGB 12.9 gm/dL (11.4-16.0); Lymphocytes # (A) 1.4 k/uL (1.0-4.8); Lymphocytes % (A) 10 %; MCH 31.6 pg (25.0-35.0); MCHC 31.7 g/dL (31.0-37.0); MCV 99.7 fL (80.0-100.0); Macrocytosis Slight; Mean Platelet Volume 7.2; Monocytes % (A) 7 %; Neutrophils # (A) 11.8 k/uL (1.3-7.7); Neutrophils % (A) 80 %; Platelet Count 478 k/uL (150-450); RBC 4.07 m/uL (3.80-5.40); RDW 16.9 % (11.5-15.5); WBC 14.8 k/uL (3.8-10.6)
[2019-01-13 05:48] LABS: Calcium 8.5 mg/dL (8.4-10.2); Magnesium 1.7 mg/dL (1.6-2.3); Phosphorus 5.7 mg/dL (2.5-4.5); Potassium 4.7 mmol/L (3.5-5.1)
[2019-01-13] MEDS ORDERED: Magnesium Replacement Protocol 1 EACH MISC MISCELLANE PRN (06:31)
[2019-01-13] MEDS: INSULIN ASPART (NovoLOG) 100 UNIT/ML VIAL SQ SCH ×4 (07:10→20:23)
[2019-01-13] MEDS: MIDODRINE 5 MG TAB PO SCH ×3 (07:13→17:37)
[2019-01-13 07:20] LABS: Glucose,Whole Blood 101 mg/dL (75-99)
--- NOTE | 2019-01-13 08:04 | XR ---
EXAMINATION TYPE: XR chest 1V DATE OF EXAM: 01/13/2019 COMPARISON: 01/04/2019 HISTORY: Shortness of breath TECHNIQUE: Single frontal view of the chest is obtained. FINDINGS: Nodular density along the right lateral lung and shifted laterally and again is suspected to represent a nipple shadow as asymmetric left nipple shadow is also now seen. Biapical calcified pl eural plaquing and atheromatous changes of the subclavian and axillary arteries are noted. The lungs are clear without evidence of focal consolidation, pleural effusion or pneumothorax. The previously s uggested trace pleural effusions have either resolved or costophrenic angles are now better visualize d without pleural effusion. Cardiomediastinal silhouette is within normal limits. COPD is again seen. IMPRESSION: No acute intracranial process. Underlying COPD. Previously suspected trace pleural effus ions are not visualized.
[2019-01-13] MEDS: BUDESONIDE 1 MG/2 ML NEBU INHALATION SCH ×2 (08:50→20:19)
[2019-01-13] MEDS: FORMOTEROL FUMARATE 20 MCG/2 ML NEBU INHALATION SCH ×2 (08:50→20:19)
[2019-01-13] MEDS: AMIODARONE 200 MG TAB PO SCH ×2 (08:52→20:27)
[2019-01-13] MEDS: CEFDINIR 300 MG CAP PO SCH (08:53)
[2019-01-13] MEDS: MEGESTROL 40 MG TAB PO SCH (08:53)
[2019-01-13] MEDS: APIXABAN 2.5 MG TABLET PO SCH ×2 (08:54→20:27)
[2019-01-13] MEDS: predniSONE 10 MG TAB PO SCH (08:55)
[2019-01-13] MEDS: PANTOPRAZOLE 40 MG TABLET PO SCH (08:55)
[2019-01-13] MEDS: METOPROLOL TARTRATE 50 MG TAB PO SCH ×2 (08:55→20:26)
[2019-01-13] MEDS: SODIUM BICARBONATE TAB 650 MG TAB PO SCH ×2 (08:56→20:27)
--- NOTE | 2019-01-13 09:56 | PN ---
PROGRESS NOTE DATE OF SERVICE: 01/13/2019 This is a 73-year-old female that we saw yesterday in consultation. She came with acute hypoxemic respiratory failure with significant tachycardia and hypotension. We believe it was primarily related to underlying COPD exacerbation as well as atrial fibrillation with RVR. In addition, the patient does have a history of chronic renal failure, currently on every 4 hours. She has dialysis and there may a component of fluid overload as well. Nonetheless, she was on the floor and she was transferred to the ICU. The patient currently is doing better. She HAS currently been weaned down to 3 L nasal cannula. She is getting a saline IV KVO. She technically is an overflow patient. In addition to all of this, she has a history of previous chronic tobacco dependence, GERD, chronic atrial fibrillation, hypertension, CVA, syncope, DJD, and multiple previous surgeries. Yesterday, we did order a V/Q scan. There was apparently no isotope available to do it. It will be done today. Her chest x-ray from yesterday showed changes of COPD primarily. There was some minimal atelectasis. Today's chest x-ray shows it to be relatively normal. There are diffuse changes of COPD. Current vital signs are reviewed. Temperature 97.7, heart rate 117 and irregular, respiratory rate 15, blood pressure 101/80, mean 87 and 3 L saturations of 98%. She appears in no acute distress. HEENT: Examination is grossly unremarkable. Mucous membranes are moist. No oral lesions. NECK: Supple. Full range of motion. No adenopathy or thyromegaly. Neck veins are flat. CARDIOVASCULAR examination reveals a regular rhythm rate. Heart rate about 120 beats per minute. S1, S2 normal. No murmur. LUNGS: Primarily clear breath sounds. No wheezes, rhonchi, or crackles. Breath sounds are diminished bilaterally. ABDOMEN: Soft. Bowel sounds are heard. No masses or tenderness. EXTREMITIES: Intact. No cyanosis, clubbing, or edema. SKIN: Without rash. NEUROLOGIC: Examination is nonfocal. She is awake and alert. LABS: Reviewed. White count 14.8, hemoglobin 12.9, hematocrit 40.6, platelet count 478,000. Sodium 131, potassium 4.7, chloride 91, CO2 is 24, anion gap 16, BUN and creatinine were 106 and 8.69. Chest x-ray has been evaluated. Microbiologic studies are negative. MEDICATIONS: Reviewed. She is on appropriate medications. She is currently on Tylenol, Xanax, Cordarone, Eliquis, Pulmicort, Omnicef, peritoneal dialysate, formoterol, [place], insulin, DuoNeb, magnesium replacement, Megace, metoprolol, midodrine, Narcan, Protonix, prednisone, sodium bicarbonate tablets, and a basic IV. ASSESSMENT: 1. Acute hypoxemic respiratory failure with tachycardia and hypotension, likely multifactorial in part related to underlying chronic obstructive pulmonary disease exacerbation as well as atrial fibrillation with rapid ventricular rate. 2. History of chronic renal failure, currently on q.4 hour peritoneal dialysis. 3. Chronic obstructive pulmonary disease, secondary to chronic tobacco use. 4. History of gastroesophageal reflux disease. 5. History of chronic atrial fibrillation. 6. Previous history of heavy tobacco use. 7. History of hypertension. 8. Previous history of cerebrovascular accident. 9. History of syncope. 10.Degenerative joint disease. 11.Multiple previous surgeries. PLAN: Currently, the patient is on appropriate medications. She is an overflow patient. She is stable for transfer out. Additional recommendations and suggestions are forthcoming. Prognosis is guarded. Medications are reviewed. She will need outpatient evaluation for her COPD. MMODL / IJN: [id number] /
--- NOTE | 2019-01-13 09:58 | NM ---
EXAMINATION TYPE: NM pul vent and perfuse DATE OF EXAM: 01/13/2019 COMPARISON: Chest x-ray of the same date HISTORY: Elevated D dimer. Abnormal renal function. TECHNIQUE: Utilizing inhalation of 64.4 mCi Tc 99m DTPA aerosol and intravenous injection of 5.4 mCi of Tc 99m MAA, ventilation and perfusion images are acquired post injection in multiple projections. FINDINGS: There is abnormal radiotracer distribution throughout the lungs. There is a moderate segmental matche d defect of the left lung base posteriorly and multiple nonsegmental defects throughout the lungs. Th ere is a matched defect of the anterior right lower lobe that is slightly larger on ventilation and p erfusion. COPD is seen on the chest radiograph however no airspace disease is identified. No perfusio n defects that are larger than the ventilation defects are seen. IMPRESSION: Examination is fitting of intermediate probability with multiple small nonsegmental matched defects a nd 2 segmental moderate matched defects. No perfusion defects that is greater than ventilation defect . Nonsegmental defects may represent air trapping from underlying COPD.
--- NOTE | 2019-01-13 10:11 | PN ---
PROGRESS NOTE Mrs. Levin is a 73-year-old female with known history of end-stage renal disease, on peritoneal dialysis, history of paroxysmal atrial fibrillation, chronic diastolic heart failure, who presented with symptoms of dyspnea as well as paroxysmal atrial fibrillation. She went back in sinus mechanism, but subsequently back in atrial fibrillation with rapid ventricular response and hypertension, was transferred to the ICU. She is feeling better today. She is still in atrial fibrillation with episode of rapid ventricular response. She denies any chest pain. She denies any dizziness or palpitation. She denies any nausea. She denies any cough. She continued to be on amiodarone 200 mg 3 times a day, Eliquis 2.5 mg twice a day and metoprolol tartrate 75 mg twice a day. PHYSICAL EXAMINATION: Blood pressure 101/80 with the heart rate in the one teens. LUNGS: No wheezes or rales. HEART: Irregular, irregular. S1, S2. No S3. No rub. ABDOMEN: Soft, nontender. EXTREMITIES: No edema. LAB DATA: Lab data revealed BUN and creatinine of 106 and 8.69, potassium 4.7, hemoglobin 12.9. IMPRESSION: 1. Paroxysmal atrial fibrillation, persistent atrial fibrillation at this time. 2. anticoagulated with episode of rapid ventricular response. 3. End-stage renal disease, on peritoneal dialysis. 4. History of chronic obstructive lung disease. 5. Prior history of congestive heart failure with preserved systolic function. 6. Bilateral pneumonia on presentation. RECOMMENDATION: From the cardiac standpoint, I will increase the dose of her amiodarone, continue the rest of her medical regimen. If she remains stable I would expect she should be able to be transferred to the telemetry floor and depending on her progress, further recommendation will be made. MMODL / IJN: [id number] /
[2019-01-13] MEDS: MAGNESIUM SULFATE-D5W PMX 1 GM in DEXTROSE/WATER 1 100ML.BAG IVPB SCH ×2 (10:58→12:18)
[2019-01-13 12:20] LABS: Glucose,Whole Blood 121 mg/dL (75-99)
[2019-01-13] MEDS: IPRATROPIUM-ALBUTEROL 3 ML NEB INHALATION PRN ×2 (16:32→20:19)
[2019-01-13 16:59] LABS: Glucose,Whole Blood 311 mg/dL (75-99)
[2019-01-13 16:59] LABS: Glucose,Whole Blood 470 mg/dL (75-99)
--- NOTE | 2019-01-13 17:08 | PN ---
PROGRESS NOTE Patient is seen for followup for end-stage renal disease. She was transferred to the ICU yesterday secondary to hypotension. She also had an element of atrial fibrillation with RVR. Currently her rate is controlled. Patient did not need any pressors. She is maintained on oral midodrine. She has been fairly stable overnight. Amiodarone was increased by Cardiology. On examination this morning, the patient was comfortable. Blood pressure was 153/27. I am not sure this is accurate. Another blood pressure was 101/80 earlier this morning. Heart rate of about 100 to 115 per minute. Patient is afebrile. EXAMINATION OF THE HEART: S1 and S2. EXAMINATION OF LUNGS: Bilateral breath sounds are heard. Decreased breath sounds at bases. ABDOMEN: Soft, non-tender. Examination of lower extremities shows no significant edema. Labs show hemoglobin 12.9, sodium 131, potassium 4.7, BUN 106, serum creatinine 8.69. ASSESSMENT: 1. End-stage renal disease, on peritoneal dialysis. Continue current PD exchanges. BUN is significantly elevated. Patient has been getting good clearances as outpatient. I believe the BUN is elevated secondary to prednisone. 2. Hypertension with bilateral renal artery stenosis with increased sensitivity to ZO inhibitors with significant drop in blood pressure with lisinopril day before yesterday. Currently patient is off of ZO inhibitors. She has been on midodrine and we can hold off on the midodrine as long as the systolic blood pressure is above 110 mmHg. 3. Chronic kidney disease mineral bone disorder. Phosphorus is 5.7. 4. Chronic obstructive pulmonary disease exacerbation, maintained on prednisone. 5. Disproportionately elevated BUN secondary to steroids. PLAN: Continue current PD exchanges. Okay to transfer out of ICU. Repeat labs in a.m. MMODL / IJN: [id number] /
[2019-01-13 17:34] LABS: Glucose,Whole Blood 297 mg/dL (75-99)
--- NOTE | 2019-01-13 19:56 | P.PN ---
Progress Note - Text Progress Note Date: 01/13/19 Presenting complaint: Short of breath Interval history Patient admitted multiple medical problems admitted with shortness of breath. [place] to have pneumonia.'s treated with IV ceftriaxone. Also treated for COPD exacerbation. Also is on end-stage hemodialysis on peritoneal dialysis. Treated for the same by nephrology. Put on fluid restriction because of low sodium. Patient went into A. fib with rapid ventricular rate and became fluid overloaded was transferred to the ICU on January 12. Today-in the ICU. Looking a bit better. Blood pressures come up. Remains in A. fib. Heart rate is fluctuating. Breathing better. Did tolerate some diet. at the bedside Review of systems: Was done for constitutional, cardiovascular, GI, pulmonary. relevant finding as above Active Medications Acetaminophen (Tylenol Tab) 500 mg PO Q6HR PRN PRN Reason: Fever and/ or Pain Hydrocodone Bitart/Acetaminophen ([place] 5-325) 1 each PO Q6HR PRN PRN Reason: Pain Albuterol/Ipratropium (Duoneb 0.5 Mg-3 Mg/3 Ml Soln) 3 ml INHALATION RT-Q4H PRN PRN Reason: Shortness Of Breath Or Wheezing Last Admin: 01/13/19 16:32 Dose: 3 ml Documented by: Alprazolam (Xanax) 0.25 mg PO TID PRN PRN Reason: Anxiety Last Admin: 01/11/19 00:39 Dose: 0.25 mg Documented by: Amiodarone HCl (Cordarone) 400 mg PO BID [facility] Last Admin: 01/13/19 08:52 Dose: 400 mg Documented by: Apixaban (Eliquis) 2.5 mg PO BID [facility] Last Admin: 01/13/19 08:54 Dose: 2.5 mg Documented by: Budesonide (Pulmicort) 1 mg INHALATION RT-BID [facility] Last Admin: 01/13/19 08:50 Dose: Not Given Documented by: Cefdinir (Omnicef) 300 mg PO DAILY [facility] Last Admin: 01/13/19 08:53 Dose: 300 mg Documented by: Formoterol Fumarate (Perforomist) 20 mcg INHALATION RT-BID [facility] Last Admin: 01/13/19 08:50 Dose: Not Given Documented by: Peritoneal Dialysis Solution (Delflex With 2.5% Dextrose (2,000 Ml)) 50 g in 2,000 mls @ 0 mls/hr INTRAPERIT Q6HR [facility]; Protocol Last Admin: 01/13/19 18:09 Dose: 2,000 mls/hr Documented by: Insulin Aspart (Novolog) 0 unit SQ ACHS [facility]; Protocol Last Admin: 01/13/19 17:36 Dose: 5 unit Documented by: Megestrol Acetate (Megace) 40 mg PO DAILY [facility] Last Admin: 01/13/19 08:53 Dose: 40 mg Documented by: Metoprolol Tartrate (Lopressor) 75 mg PO BID [facility] Last Admin: 01/13/19 08:55 Dose: 75 mg Documented by: Midodrine (Proamatine) 10 mg PO AC-TID [facility] Last Admin: 01/13/19 17:37 Dose: 10 mg Documented by: Miscellaneous Information (Magnesium Per Protocol) 1 each MISCELLANE DAILY PRN; Protocol PRN Reason: Per Protocol Naloxone HCl (Narcan) 0.2 mg IV Q2M PRN PRN Reason: Opioid Reversal Pantoprazole Sodium (Protonix) 40 mg PO DAILY [facility] Last Admin: 01/13/19 08:55 Dose: 40 mg Documented by: Prednisone () 30 mg PO DAILY [facility] Last Admin: 01/13/19 08:55 Dose: 30 mg Documented by: Sodium Bicarbonate (Sodium Bicarbonate Tab) 650 mg PO BID [facility] Last Admin: 01/13/19 08:56 Dose: 650 mg Documented by: On examination: VITAL SIGNS: 97.7, 114, 15, 114/73, 98% on 4 L GENERAL APPEARANCE: Laying in bed, tired HEENT: Normal external appearance of nose and ear. Oral cavity normal EYES: Pupils equal. Conjunctiva normal. NECK: JVD not raised. Mass not palpable. RESPIRATORY: Respiratory effort increased, decreased breath sounds. CARDIOVASCULAR: First and second sounds normal. No edema. ABDOMEN: Soft. Liver and spleen not palpable. No tenderness. No mass palpable. PD catheter in place PSYCHIATRY: Alert and oriented x3. 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 This morning. Patient is known to be very sensitive to blood pressure medications. Was given IV fluids. Plan: Per cardiology dose of amiodarone was cut back. Because systolic blood pressure climbed above 100 midodrine was held by Dr. Vargas. Care was discussed with the patient and . Questions were answered. Appetite improving.
[2019-01-13 20:49] LABS: Glucose,Whole Blood 89 mg/dL (75-99)
[2019-01-13] MEDS: ALPRAZolam 0.25 MG TAB PO PRN (22:57)
[2019-01-14] MEDS: DIALYSIS (PERIT 2.5%) 2,000 ML 50 G/2,000 ML BAG INTRAPERIT SCH ×6 (00:13→22:14)
[2019-01-14 05:56] LABS: Basophils # (A) 0.1 k/uL (0-0.2); Basophils % (A) 1 %; Eosinophils # (A) 0.1 k/uL (0-0.7); Eosinophils % (A) 1 %; HCT 39.4 % (34.0-46.0); HGB 12.7 gm/dL (11.4-16.0); Lymphocytes # (A) 0.9 k/uL (1.0-4.8); Lymphocytes % (A) 5 %; MCH 31.8 pg (25.0-35.0); MCHC 32.2 g/dL (31.0-37.0); MCV 98.9 fL (80.0-100.0); Macrocytosis Slight; Mean Platelet Volume 6.8; Monocytes # (A) 0.9 k/uL (0-1.0); Monocytes % (A) 5 %; Neutrophils # (A) 16.4 k/uL (1.3-7.7); Neutrophils % (A) 88 %; Platelet Count 432 k/uL (150-450); RBC 3.99 m/uL (3.80-5.40); RDW 15.5 % (11.5-15.5); WBC 18.7 k/uL (3.8-10.6)
[2019-01-14 06:10] LABS: Calcium 8.5 mg/dL (8.4-10.2); Potassium 4.8 mmol/L (3.5-5.1)
[2019-01-14] MEDS: INSULIN ASPART (NovoLOG) 100 UNIT/ML VIAL SQ SCH ×4 (07:02→21:38)
--- NOTE | 2019-01-14 07:38 | XR ---
EXAMINATION TYPE: XR chest 1V DATE OF EXAM: 01/14/2019 COMPARISON: 01/13/2019 HISTORY: 73-year-old female COPD, shortness of breath TECHNIQUE: Single frontal view of the chest is obtained. FINDINGS: Heart upper limits of normal in size. Aorta within normal limits. Biapical pleural parenchymal scarri ng and hyperinflation. Right-sided nipple shadow. Mild strandy atelectasis left base. No consolidatio n or pleural effusion. IMPRESSION: COPD. No definite acute process.
[2019-01-14] MEDS: FORMOTEROL FUMARATE 20 MCG/2 ML NEBU INHALATION SCH (07:42)
[2019-01-14] MEDS: BUDESONIDE 1 MG/2 ML NEBU INHALATION SCH (07:42)
--- NOTE | 2019-01-14 08:29 | PN ---
PROGRESS NOTE Mrs. Levin is a 73-year-old female with a known history of paroxysmal atrial fibrillation, end-stage renal disease, on peritoneal dialysis, history of chronic diastolic heart failure in the past who is feeling better today, her breathing is better. She continued to be in atrial fibrillation with better control of her ventricular response. She denies any dizziness, palpitation. She denies any nausea. She presented with evidence of pneumonia. She is receiving her dialysis on schedule. She continues to be at this time on amiodarone 400 mg twice a day, Eliquis 2.5 mg twice a day, metoprolol tartrate 75 mg twice a day, prednisone, sodium bicarb. PHYSICAL EXAMINATION: Blood pressure running in the 130s to 140s with a heart rate in the high 90s to low 100s. LUNGS: With decreased air exchange, no wheezes. HEART: Irregular, regular, S1, S2. No S3. No rub appreciated. ABDOMEN: Soft, nontender. EXTREMITIES: No edema. LAB DATA: Revealed BUN and creatinine of 114 and 8.54, potassium 4.8, hemoglobin 12.7, white blood cell of 18.7. Sodium 128, which has dropped compared to yesterday. IMPRESSION: 1. Dyspnea, multifactorial. No clear evidence of significant fluid overload at this time. 2. Paroxysmal atrial fibrillation. The patient is in persistent atrial fibrillation at this time. 3. End-stage renal disease on peritoneal dialysis. 4. History of chronic obstructive lung disease. 5. Prior history of cardiomyopathy while in atrial fibrillation, improved when she went back to sinus mechanism. RECOMMENDATION: I will continue on the present treatment with the amiodarone and the beta jil. Will follow her heart rate. I am hopeful that she will go back to sinus mechanism. Will continue anticoagulation in the meantime. She will continue dialysis as present and depending on her progress, further recommendation will be made. MMODL / IJN: [id number] /
[2019-01-14] MEDS: MIDODRINE 5 MG TAB PO SCH (09:49)
[2019-01-14] MEDS: AMIODARONE 200 MG TAB PO SCH ×2 (09:49→21:24)
[2019-01-14] MEDS: APIXABAN 2.5 MG TABLET PO SCH ×2 (09:50→21:43)
[2019-01-14] MEDS: CEFDINIR 300 MG CAP PO SCH (09:50)
[2019-01-14] MEDS: PANTOPRAZOLE 40 MG TABLET PO SCH (09:51)
[2019-01-14] MEDS: MEGESTROL 40 MG TAB PO SCH (09:51)
[2019-01-14] MEDS: SODIUM BICARBONATE TAB 650 MG TAB PO SCH (09:51)
[2019-01-14] MEDS: METOPROLOL TARTRATE 50 MG TAB PO SCH ×2 (09:51→21:23)
--- NOTE | 2019-01-14 10:29 | PN ---
PROGRESS NOTE DATE OF SERVICE: 01/14/2019 This is a 73-year-old female who was seen in 2 days ago in consultation. She came with acute hypoxemic respiratory failure with significant tachycardia and hypotension. We believe her symptoms were secondary to a COPD exacerbation as well as atrial fibrillation with RVR. She is currently doing much better. She is getting no supplemental oxygen currently. She is getting no IVs. She does have peritoneal dialysis every 4 hours. She does have chronic renal failure. She is resting comfortably. She has no complaints today. She had an uneventful night. She does have a history of prior tobacco use, GERD, chronic atrial fibrillation, hypertension, CVA, syncope, DJD, and multiple previous surgeries. Current vital signs are reviewed, that include temperature 98, heart rate 108, respiratory rate 16, blood pressure 148/102, room air saturation 100%. Appears in no acute distress. HEENT: Examination is grossly unremarkable. Mucous membranes are moist. NECK: Supple. Full range of motion. No adenopathy. Neck veins are flat. CARDIOVASCULAR: Examination reveals a regular rhythm and rate. Heart rate about 100 beats per minute. S1, S2 normal. No murmur. LUNGS: Reveal mostly clear breath sounds. No wheezes or rhonchi. No crackles. Breath sounds equal. ABDOMEN: Soft, abdomen without mass or tumor. She is getting peritoneal dialysis. She has a peritoneal dialysis catheter in place. EXTREMITIES: Intact. No cyanosis, clubbing, or edema. SKIN: Without rash. NEUROLOGIC Examination is normal. LABS: Reviewed. White count 18.7, hemoglobin 12.7, hematocrit 39.4, platelet count 432,000. Sodium 128, potassium 4.8, chloride 99, CO2 is 22, anion gap is 17, BUN and creatinine were 114 and 8.54. She clearly has evidence of an anion gap metabolic acidosis. The patient had a chest x-ray done. It shows COPD but no acute process. She had a pulmonary perfusion study. Which is nondiagnostic. It is read as being an intermediate probability for PE. Likely the scan was caused primarily by her COPD. Medications are reviewed. ASSESSMENT: 1. Acute hypoxemic respiratory failure with tachycardia and hypotension, likely multifactorial in part related to underlying chronic obstructive pulmonary disease exacerbation as well as atrial fibrillation with RVR. 2. Doubt pulmonary embolism. 3. History of chronic renal failure, currently on every 4 hour peritoneal hemodialysis. 4. COPD, secondary to chronic tobacco use. 5. History of gastroesophageal reflux disease. 6. History of chronic atrial fibrillation. 7. Previous history of heavy tobacco use. 8. History of hypertension. 9. Prior history of cerebrovascular accident. 10.Syncope. 11.Degenerative joint disease. 12.Multiple previous surgeries. PLAN: All-in-all, Ms. Levin is doing reasonably well. The patient will continue on her peritoneal dialysis every 4 hours. The patient can be transferred out to the floor. No additional recommendations are made. She is not receiving any supplemental oxygen. She is not getting any IVs. Hemodynamically, she is stable. She could go to [address] [place] [address] or she could go to a general medical floor with telemetry. Additional recommendations and suggestions are forthcoming. Medications are reviewed. Everything appears to be appropriate. MMODL / IJN: [id number] /
--- NOTE | 2019-01-14 11:11 | PN ---
PROGRESS NOTE Patient is seen for followup for end-stage renal disease. She is currently lying in bed comfortably. No issues with dialysis. Her BUN has been progressively increasing. Patient has been maintained on steroids, but today it is up to 114. Serum creatinine has been about the same since admission staying at about 8. The steroid doses have been decreased. I will increase her PD exchanges to q.4 hours for a day or so. No episodes with hypotension and heart rate are staying stable at about 115 to 112 per minute. PHYSICAL EXAMINATION: On examination this morning, blood pressure was 148/102, heart rate 108 per minute. She is afebrile. EXAMINATION OF THE HEART: S1, S2. EXAMINATION OF THE LUNGS: Bilateral breath sounds are heard. Abdomen is soft, nontender. Examination of the lower extremities shows no evidence of edema. [employer] exam is grossly intact. LABS: Labs show hemoglobin 12.7, sodium 128, potassium 4.8, BUN 114, serum creatinine 8.54. ASSESSMENT: 1. End-stage renal disease, maintained on peritoneal dialysis. I will increase the PD exchanges to q.4 hours in view of significantly elevated BUN, which is mainly secondary to the steroids as creatinine has been the same since admission. 2. Atrial fibrillation with rapid ventricular response, controlled ventricular response, although slightly tachycardic. 3. Hypotension, now resolved. The patient's blood pressure is creeping up. I will discontinue the midodrine and we will reconsider ZO inhibitors if she remains significantly hypertensive. 4. Anemia of chronic disease, currently stable. 5. Chronic kidney disease mineral bone disorder. The patient was maintained on her PhosLo at home. I do not see any binders. We will check a phosphorus level. PLAN: Increase PD exchanges to q.4 hours. Check phosphorus level. Discontinue midodrine. Repeat labs in a.m. MMODL / IJN: [id number] /
[2019-01-14] MEDS: IPRATROPIUM-ALBUTEROL 3 ML NEB INHALATION PRN ×2 (11:17→15:43)
[2019-01-14 12:12] LABS: Glucose,Whole Blood 147 mg/dL (75-99)
[2019-01-14 17:39] LABS: Glucose,Whole Blood 89 mg/dL (75-99)
[2019-01-14] MEDS: SYMBICORT 160-4.5 MCG INHALER INHALATION SCH (19:23)
[2019-01-14 20:52] LABS: Glucose,Whole Blood 124 mg/dL (75-99)
--- NOTE | 2019-01-14 21:07 | P.PN ---
Progress Note - Text Progress Note Date: 01/14/19 Presenting complaint: Atrial fibrillation Interval history Patient admitted multiple medical problems admitted with shortness of breath. [place] to have pneumonia.'s treated with IV ceftriaxone. Also treated for COPD exacerbation. Also is on end-stage hemodialysis on peritoneal dialysis. Treate d for the same by nephrology. Put on fluid restriction because of low sodium. Patient went into A. fib with rapid ventricular rate and became fluid overloaded was transferred to the ICU on January 12. Today-feeling better. In the ICU. Heart rate better controlled. Starting a diet. PD has been increased every 4 hours by nephrology. Review of systems: Was done for constitutional, cardiovascular, GI, pulmonary. relevant finding as above Active Medications Acetaminophen (Tylenol Tab) 500 mg PO Q6HR PRN PRN Reason: Fever and/ or Pain Hydrocodone Bitart/Acetaminophen ([place] 5-325) 1 each PO Q6HR PRN PRN Reason: Pain Albuterol/Ipratropium (Duoneb 0.5 Mg-3 Mg/3 Ml Soln) 3 ml INHALATION RT-Q4H PRN PRN Reason: Shortness Of Breath Or Wheezing Last Admin: 01/14/19 15:43 Dose: 3 ml Documented by: Alprazolam (Xanax) 0.25 mg PO TID PRN PRN Reason: Anxiety Last Admin: 01/13/19 22:57 Dose: 0.25 mg Documented by: Amiodarone HCl (Cordarone) 400 mg PO BID [facility] Last Admin: 01/14/19 09:49 Dose: 400 mg Documented by: Apixaban (Eliquis) 2.5 mg PO BID [facility] Last Admin: 01/14/19 09:50 Dose: 2.5 mg Documented by: Budesonide/Formoterol Fumarate (Symbicort 160-4.5 Mcg Inhaler) 2 puff INHALATION RT-BID [facility] Last Admin: 01/14/19 19:23 Dose: 2 puff Documented by: Cefdinir (Omnicef) 300 mg PO DAILY [facility] Last Admin: 01/14/19 09:50 Dose: 300 mg Documented by: Peritoneal Dialysis Solution (Delflex With 2.5% Dextrose (2,000 Ml)) 50 g in 2,000 mls @ 0 mls/hr INTRAPERIT Q4H [facility]; Protocol Last Admin: 01/14/19 18:30 Dose: 2,000 mls/hr Documented by: Insulin Aspart (Novolog) 0 unit SQ ACHS [facility]; Protocol Last Admin: 01/14/19 17:58 Dose: Not Given Documented by: Megestrol Acetate (Megace) 40 mg PO DAILY [facility] Last Admin: 01/14/19 09:51 Dose: 40 mg Documented by: Metoprolol Tartrate (Lopressor) 75 mg PO BID [facility] Last Admin: 01/14/19 09:51 Dose: 75 mg Documented by: Miscellaneous Information (Magnesium Per Protocol) 1 each MISCELLANE DAILY PRN; Protocol PRN Reason: Per Protocol Naloxone HCl (Narcan) 0.2 mg IV Q2M PRN PRN Reason: Opioid Reversal Pantoprazole Sodium (Protonix) 40 mg PO DAILY [facility] Last Admin: 01/14/19 09:51 Dose: 40 mg Documented by: Prednisone () 20 mg PO DAILY [facility] On examination: VITAL SIGNS: 97.8, 97, 90, 116.92, 98% room air GENERAL APPEARANCE: Propped up in bed, more comfortable HEENT: Normal external appearance of nose and ear. Oral cavity normal EYES: Pupils equal. Conjunctiva normal. NECK: JVD not raised. Mass not palpable. RESPIRATORY: Respiratory effort increased, decreased breath sounds. CARDIOVASCULAR: Irregular heart sounds. No edema. ABDOMEN: Soft. Liver and spleen not palpable. No tenderness. No mass palpable. PD catheter in place. Chest distention PSYCHIATRY: Alert and oriented x3. 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 Improved Plan: Because of not very effective PD patient's peritoneal dialysis frequence of increased every 4 hours. Blood pressures, midodrine has been stopped. Overall patient doing better. nuclear worker technician informing placement bed not be available to to stay. Care was discussed the patient and at the bedside
[2019-01-14] MEDS: HYDROcodone/APAP 5-325MG 1 EACH TAB PO PRN (22:40)
[2019-01-15] MEDS: ALPRAZolam 0.25 MG TAB PO PRN (00:06)
[2019-01-15] MEDS: DIALYSIS (PERIT 2.5%) 2,000 ML 50 G/2,000 ML BAG INTRAPERIT SCH ×6 (02:12→23:32)
[2019-01-15 05:03] LABS: Anisocytosis Slight; Basophils % (A) 0 %; Eosinophils # (A) 0.2 k/uL (0-0.7); Eosinophils % (A) 1 %; HCT 37.7 % (34.0-46.0); HGB 12.2 gm/dL (11.4-16.0); Lymphocytes # (A) 1.2 k/uL (1.0-4.8); Lymphocytes % (A) 9 %; MCHC 32.5 g/dL (31.0-37.0); MCV 98.5 fL (80.0-100.0); Macrocytosis Slight; Mean Platelet Volume 7.2; Monocytes # (A) 0.9 k/uL (0-1.0); Monocytes % (A) 7 %; Neutrophils # (A) 10.3 k/uL (1.3-7.7); Neutrophils % (A) 81 %; Platelet Count 437 k/uL (150-450); RBC 3.83 m/uL (3.80-5.40); RDW 17.2 % (11.5-15.5); WBC 12.7 k/uL (3.8-10.6)
[2019-01-15 05:18] LABS: Calcium 8.5 mg/dL (8.4-10.2); Potassium 4.9 mmol/L (3.5-5.1)
[2019-01-15 07:08] LABS: Glucose,Whole Blood 104 mg/dL (75-99)
[2019-01-15] MEDS: INSULIN ASPART (NovoLOG) 100 UNIT/ML VIAL SQ SCH ×4 (07:08→20:37)
[2019-01-15] MEDS: METOPROLOL TARTRATE 50 MG TAB PO SCH ×2 (07:52→20:36)
[2019-01-15] MEDS: PANTOPRAZOLE 40 MG TABLET PO SCH (07:52)
[2019-01-15] MEDS: MEGESTROL 40 MG TAB PO SCH (07:52)
[2019-01-15] MEDS: AMIODARONE 200 MG TAB PO SCH ×2 (07:52→20:37)
[2019-01-15] MEDS: predniSONE 20 MG TAB PO SCH (07:53)
[2019-01-15] MEDS: APIXABAN 2.5 MG TABLET PO SCH ×2 (07:53→20:36)
[2019-01-15] MEDS: CEFDINIR 300 MG CAP PO SCH (07:53)
[2019-01-15] MEDS: SYMBICORT 160-4.5 MCG INHALER INHALATION SCH ×2 (09:33→19:41)
--- NOTE | 2019-01-15 11:09 | PN ---
PROGRESS NOTE DATE OF SERVICE: 01/15/2019 This is a 73-year-old female who was seen a number of days back in consultation. She came in with hypoxemic respiratory failure with tachycardia and hypotension. She had symptoms we believe related to underlying COPD exacerbation, but also atrial fibrillation with RVR. Currently doing much better. Currently, she is resting comfortably in bed. She is actually watching TV. She is on room air. Not receiving any IV fluids. Still in atrial fibrillation. She has end-stage renal disease, currently on 3 to 4 hour peritoneal dialysis. The patient has no major complaints today. She could be transferred out to the floor. She does have a history of prior tobacco use, GERD, chronic atrial fibrillation, hypertension, CVA, syncope, DJD, multiple previous surgeries and end-stage renal disease. Current vital signs are reviewed. Temperature is 98.1, heart rate 98 and irregular, respiratory rate 16, blood pressure 123/99 mean 107, saturations are 96%. Appears in no acute distress. HEENT: Examination is grossly unremarkable. Mucous membranes are moist. NECK: Supple. Full range of motion. No adenopathy or thyromegaly. Neck veins are flat. CARDIOVASCULAR: Examination reveals irregular rhythm and rate. Heart rate about 100 beats per minute. She is in atrial fibrillation. S1, S2 normal. No murmur. Heart sounds are distant. LUNGS: Reveal clear breath sounds. No wheezes, rhonchi, or crackles. ABDOMEN: Soft. A peritoneal dialysis catheter noted. SKIN: Without rash. EXTREMITIES: Intact. No cyanosis, clubbing, or edema. NEUROLOGIC: Examination is nonfocal. Microbiologic studies are negative thus far. LABS: Reviewed. White count 12.7, hemoglobin 12.2, hematocrit 37.7, platelet count 137,000. Sodium 130, potassium 4.9, chloride 89, CO2 is 22, anion gap is 19. BUN and creatinine were 1 0 and 7.77. This is consistent with an anion gap metabolic acidosis secondary to her renal failure. No chest x-ray to review. MEDICATIONS: Reviewed. She is currently on Tylenol, Xanax, Cordarone, Eliquis, Symbicort, Omnicef, [place], insulin, updrafts with albuterol and Atrovent, magnesium replacement, Megace, metoprolol, Narcan, Protonix and prednisone. ASSESSMENT: 1. Acute hypoxemic respiratory failure with tachycardia and hypotension, likely multifactorial in part related to underlying chronic obstructive pulmonary disease exacerbation as well as atrial fibrillation with RVR. 2. Doubt pulmonary embolism. 3. History of chronic renal failure, currently on every 4 hour peritoneal dialysis. 4. Chronic obstructive pulmonary disease, secondary to chronic tobacco use. 5. History of gastroesophageal reflux disease. 6. History of chronic atrial fibrillation. 7. Previous history of heavy tobacco use. 8. History of hypertension. 9. Prior history of cerebrovascular accident. 10.Syncope by history. 11.Degenerative joint disease. 12.Multiple previous surgeries. PLAN: The patient is doing much better. She is currently not receiving any supplemental oxygen. No IVs. She remains in atrial fibrillation with a rate of around 90 to 100 beats per minute. She has no major complaints. She could be transferred out of the intensive care unit. Additional recommendations and suggestions are forthcoming. MMODL / IJN: [id number] /
[2019-01-15 11:57] LABS: Glucose,Whole Blood 154 mg/dL (75-99)
--- NOTE | 2019-01-15 12:32 | PN ---
PROGRESS NOTE Patient is seen for followup for end-stage renal disease. She is currently maintained on CAPD, which was increased to q.4 hours. Patient is doing fairly well. She denies any significant complaints. PHYSICAL EXAMINATION: Blood pressure is 123/99, heart rate 99 per minute. She is afebrile. Examination of the heart S1, S2. Examination of the lungs, decreased breath sounds at the bases. Abdomen is soft, nontender. Examination of the lower extremities shows no evidence of edema. [employer] exam grossly intact. LABS: Show sodium 130, potassium 4.9, BUN 108, serum creatinine 7.7. ASSESSMENT: 1. End-stage renal disease, on peritoneal dialysis. Continue current PD exchanges, which is q.4 hour exchanges for now. 2. Disproportionately elevated BUN secondary to steroids, slowly improving. 3. Atrial fibrillation with controlled ventricular response, although heart rate still staying slightly on the higher side. 4. Bilateral renal artery stenosis with patient being very sensitive to ZO inhibitors. Blood pressure is currently controlled. 5. Volume overload, now improved. 6. Hypotension, now resolved. Patient is off the midodrine. PLAN: Continue current PD exchanges for now. MMODL / IJN: [id number] /
[2019-01-15 13:31] VITALS: BMI 19.9
--- NOTE | 2019-01-15 16:50 | P.PN ---
Progress Note - Text Progress Note Date: 01/15/19 Presenting complaint: Atrial fibrillation Interval history Patient admitted multiple medical problems admitted with shortness of breath. [place] to have pneumonia.'s treated with IV ceftriaxone. Also treated for COPD exacerbation. Also is on end-stage hemodialysis on peritoneal dialysis. Treat ed for the same by nephrology. Put on fluid restriction because of low sodium. Patient went into A. fib with rapid ventricular rate and became fluid overloaded was transferred to the ICU on January 12. Today-A. fib remains controlled. Getting PD every 4 hours. Starting a diet. Breathing is stable. No new issues.. Review of systems: Was done for constitutional, cardiovascular, GI, pulmonary. relevant finding as above Active Medications Acetaminophen (Tylenol Tab) 500 mg PO Q6HR PRN PRN Reason: Fever and/ or Pain Hydrocodone Bitart/Acetaminophen ([place] 5-325) 1 each PO Q6HR PRN PRN Reason: Pain Last Admin: 01/14/19 22:40 Dose: 1 each Documented by: Albuterol/Ipratropium (Duoneb 0.5 Mg-3 Mg/3 Ml Soln) 3 ml INHALATION RT-Q4H PRN PRN Reason: Shortness Of Breath Or Wheezing Last Admin: 01/14/19 15:43 Dose: 3 ml Documented by: Alprazolam (Xanax) 0.25 mg PO TID PRN PRN Reason: Anxiety Last Admin: 01/15/19 00:06 Dose: 0.25 mg Documented by: Amiodarone HCl (Cordarone) 400 mg PO BID [facility] Last Admin: 01/15/19 07:52 Dose: 400 mg Documented by: Apixaban (Eliquis) 2.5 mg PO BID [facility] Last Admin: 01/15/19 07:53 Dose: 2.5 mg Documented by: Budesonide/Formoterol Fumarate (Symbicort 160-4.5 Mcg Inhaler) 2 puff INHALATION RT-BID [facility] Last Admin: 01/15/19 09:33 Dose: Not Given Documented by: Cefdinir (Omnicef) 300 mg PO DAILY [facility] Last Admin: 01/15/19 07:53 Dose: 300 mg Documented by: Peritoneal Dialysis Solution (Delflex With 2.5% Dextrose (2,000 Ml)) 50 g in 2,000 mls @ 0 mls/hr INTRAPERIT Q4H [facility]; Protocol Last Admin: 01/15/19 15:02 Dose: 2,000 mls/hr Documented by: Insulin Aspart (Novolog) 0 unit SQ ACHS [facility]; Protocol Last Admin: 01/15/19 12:45 Dose: Not Given Documented by: Megestrol Acetate (Megace) 40 mg PO DAILY [facility] Last Admin: 01/15/19 07:52 Dose: 40 mg Documented by: Metoprolol Tartrate (Lopressor) 75 mg PO BID [facility] Last Admin: 01/15/19 07:52 Dose: 75 mg Documented by: Miscellaneous Information (Magnesium Per Protocol) 1 each MISCELLANE DAILY PRN; Protocol PRN Reason: Per Protocol Naloxone HCl (Narcan) 0.2 mg IV Q2M PRN PRN Reason: Opioid Reversal Pantoprazole Sodium (Protonix) 40 mg PO DAILY [facility] Last Admin: 01/15/19 07:52 Dose: 40 mg Documented by: Prednisone () 20 mg PO DAILY [facility] Last Admin: 01/15/19 07:53 Dose: 20 mg Documented by: On examination: VITAL SIGNS: 97.9, 99, 18, 137 with 97, 97% room air GENERAL APPEARANCE: Sitting up comfortable HEENT: Normal external appearance of nose and ear. Oral cavity normal EYES: Pupils equal. Conjunctiva normal. NECK: JVD not raised. Mass not palpable. RESPIRATORY: Respiratory effort increased, decreased breath sounds. CARDIOVASCULAR: Irregular heart sounds. No edema. ABDOMEN: Soft. Liver and spleen not palpable. No tenderness. No mass palpable. PD catheter in place. Chest distention PSYCHIATRY: Alert and oriented x3. 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 Improved Plan: Continue current medication treatment plan. Patient will be be going to inpatient rehab
[2019-01-15 17:08] LABS: Glucose,Whole Blood 254 mg/dL (75-99)
[2019-01-15 18:05] LABS: Glucose,Whole Blood 217 mg/dL (75-99)
[2019-01-15 20:44] LABS: Glucose,Whole Blood 72 mg/dL (75-99)
--- NOTE | 2019-01-15 20:45 | PN ---
PROGRESS NOTE Brittany is a 73-year-old lady with recurrent hospitalizations related to respiratory failure and atrial fibrillation with rapid ventricular rate. This morning, she appears comfortable at rest. Remains in atrial fibrillation with fairly well controlled ventricular rate with heart rate in the 90s to 100s. She is on amiodarone 400 b.i.d., Eliquis 2.5 b.i.d., Lopressor 75 b.i.d. along with her other medications. On exam, afebrile, heart rate is 99 beats per minute, blood pressure 123/99, respiratory rate 18. Chest exam reveals diminished air entry at the bases, occasional rhonchi. Heart exam reveals first and second heart sounds. No gallop. Exam of extremities did not reveal any edema. Lab show that the hemoglobin is 12.2, platelet count is 437. BUN is 108, creatinine 7.7. ASSESSMENT: 1. End-stage renal disease on peritoneal dialysis. 2. Chronic atrial fibrillation with controlled ventricular rate. 3. Respiratory failure secondary to chronic obstructive pulmonary disease. Continue current medications. MMODL / IJN: [id number] /
[2019-01-16] MEDS: DIALYSIS (PERIT 2.5%) 2,000 ML 50 G/2,000 ML BAG INTRAPERIT SCH ×6 (02:50→21:44)
[2019-01-16] MEDS: ALPRAZolam 0.25 MG TAB PO PRN ×3 (04:02→21:57)
[2019-01-16] MEDS ORDERED: HEPARIN SODIUM PORCINE INTRAPERIT ONE ×2 (04:45→06:00)
[2019-01-16] MEDS ORDERED: DIALYSIS DEX INTRAPERIT ONE ×2 (04:45→06:00)
[2019-01-16 06:53] LABS: Glucose,Whole Blood 115 mg/dL (75-99)
[2019-01-16] MEDS: SYMBICORT 160-4.5 MCG INHALER INHALATION SCH ×2 (07:21→20:50)
[2019-01-16] MEDS: INSULIN ASPART (NovoLOG) 100 UNIT/ML VIAL SQ SCH ×4 (07:49→20:31)
[2019-01-16] MEDS: predniSONE 20 MG TAB PO SCH (08:22)
[2019-01-16] MEDS: HYDROcodone/APAP 5-325MG 1 EACH TAB PO PRN (08:22)
[2019-01-16] MEDS: MEGESTROL 40 MG TAB PO SCH (08:22)
[2019-01-16] MEDS: CEFDINIR 300 MG CAP PO SCH (08:22)
[2019-01-16] MEDS: APIXABAN 2.5 MG TABLET PO SCH ×2 (08:22→19:34)
[2019-01-16] MEDS: PANTOPRAZOLE 40 MG TABLET PO SCH (08:22)
[2019-01-16] MEDS: AMIODARONE 200 MG TAB PO SCH ×2 (08:23→19:33)
[2019-01-16] MEDS: METOPROLOL TARTRATE 50 MG TAB PO SCH ×2 (08:23→19:34)
--- NOTE | 2019-01-16 09:59 | PN ---
PROGRESS NOTE DATE OF SERVICE: 01/16/2019 This is a 73-year-old female who was admitted back on January 09. We saw her in consultation a few days back. She came with hypoxemic respiratory failure with tachycardia and hypotension. We thought she was having both a COPD exacerbation and also atrial fibrillation with RVR. Anyway, she is currently doing much better. She remains in chronic atrial fibrillation. Her heart rate is right around 100 beats per minute. She is currently not receiving any supplemental oxygen. She is an end-stage renal disease patient receiving peritoneal dialysis every 4 hours. She is doing reasonably well. She is eating her breakfast this morning. She has no particular complaints. According to the nurse, it was an uneventful night. In addition to the above, she has a history of prior tobacco use, GERD, chronic atrial fibrillation, hypertension, CVA, syncope, DJD, multiple previous surgeries and end-stage renal disease. PHYSICAL EXAMINATION: VITAL SIGNS: Current vital signs are reviewed. Her temperature is 97.3, heart rate 101, respiratory rate 18, blood pressure 114/101, mean 114, room air saturation 99%. She appears in no acute distress. No signs of respiratory difficulty. No audible wheezing, use of accessory muscles or conversational dyspnea noted. HEENT examination is grossly unremarkable. NECK: Supple. Full range of motion. No adenopathy or thyromegaly. Neck veins are flat. CARDIOVASCULAR examination reveals a regular rhythm rate. Heart rate about 100 beats per minute. She is clearly in atrial fibrillation. S1, S2 normal. No murmur. LUNGS: Expiratory wheezes and rhonchi. Breath sounds are improved. Slight prolongation noted. ABDOMEN: Soft. Bowel sounds are heard. EXTREMITIES are intact. No cyanosis, clubbing, or edema. SKIN: Without rash. NEUROLOGIC examination is brief but nonfocal. LABS: Reviewed. No new labs to report on this patient. No chest x-ray to report. Medications are reviewed. They were reviewed yesterday, everything appears to be appropriate. ASSESSMENT: 1. Acute hypoxemic respiratory failure with tachycardia and hypotension, likely multifactorial in part related to underlying chronic obstructive pulmonary disease exacerbation as well as atrial fibrillation/RVR. Both clinical conditions have significantly improved. 2. Doubt pulmonary embolism. 3. History of chronic renal failure, currently on every 4 hours peritoneal dialysis. 4. Chronic obstructive pulmonary disease, secondary to chronic tobacco use. 5. History of gastroesophageal reflux disease. 6. History of chronic atrial fibrillation. 7. Previous history of heavy tobacco use. 8. History of hypertension. 9. Prior history of cerebrovascular accident. 10.Syncope by history. 11.Degenerative joint disease. 12.Multiple previous surgeries. PLAN: Currently, the patient is not receiving any supplemental oxygen. Not receiving any additional IV fluids. Her clinical condition is stable. From my perspective, she could be transitioned up to the [address] [place] [address] Unit. We will continue to follow. Her breathing medications are appropriate including Symbicort, updrafts, and some prednisone orally. No additional recommendations are made. Prognosis is guarded. MMODL / IJN: [id number] /
[2019-01-16 10:00] LABS: Calcium 8.4 mg/dL (8.4-10.2); Potassium 4.7 mmol/L (3.5-5.1)
[2019-01-16 11:44] LABS: Glucose,Whole Blood 138 mg/dL (75-99)
--- NOTE | 2019-01-16 13:41 | PN ---
PROGRESS NOTE Patient is seen for followup for end-stage renal disease. She is maintained on peritoneal dialysis. Patient had trouble with dialysis last night, however, it has been working well now. The patient denies any significant shortness of breath, nausea, vomiting. No significant abdominal pain. We will be using heparin in the next bag. PHYSICAL EXAMINATION: On examination, blood pressure is 117/88, heart rate 92 per minute. She is afebrile. Examination of the heart S1, S2. Examination of the lungs, bilateral breath sounds are heard. Abdomen is soft, nontender. Examination lower extremities shows no evidence of edema. ORDER SELECTOR exam is grossly intact. LAB: Show sodium 128, chloride 88, BUN 95, serum creatinine 8.42, calcium is 8.4. ASSESSMENT: 1. End-stage renal disease, on peritoneal dialysis. Continue current PD exchanges. We are using heparin in the bag to help with the drain. I am going to make sure the patient is not constipated. 2. Fluid overload, currently improved. 3. Atrial fibrillation with rapid ventricular response with controlled ventricular response. 4. Hypertension, now controlled. 5. Severe bilateral renal artery stenosis. PLAN: Continue current exchanges. Encourage increased oral intake. Repeat labs in a.m. MMODL / IJN: [id number] /
[2019-01-16 16:50] LABS: Glucose,Whole Blood 249 mg/dL (75-99)
--- NOTE | 2019-01-16 19:03 | P.PN ---
Progress Note - Text Progress Note Date: 01/16/19 Presenting complaint: Atrial fibrillation Interval history Patient admitted multiple medical problems admitted with shortness of breath. [place] to have pneumonia.'s treated with IV ceftriaxone. Also treated for COPD exacerbation. Also is on end-stage hemodialysis on peritoneal dialysis. Treat ed for the same by nephrology. Put on fluid restriction because of low sodium. Patient went into A. fib with rapid ventricular rate and became fluid overloaded was transferred to the ICU on January 12. Today-patient remains in the ICU as a 6 E. on floor. A. fib is hoping around 100+ minus. Breathing is stable. Getting peritoneal dialysis. No new issues. Review of systems: Was done for constitutional, cardiovascular, GI, pulmonary. relevant finding as above Active Medications Acetaminophen (Tylenol Tab) 500 mg PO Q6HR PRN PRN Reason: Fever and/ or Pain Hydrocodone Bitart/Acetaminophen ([place] 5-325) 1 each PO Q6HR PRN PRN Reason: Pain Last Admin: 01/16/19 08:22 Dose: 1 each Documented by: Albuterol/Ipratropium (Duoneb 0.5 Mg-3 Mg/3 Ml Soln) 3 ml INHALATION RT-Q4H PRN PRN Reason: Shortness Of Breath Or Wheezing Last Admin: 01/14/19 15:43 Dose: 3 ml Documented by: Alprazolam (Xanax) 0.25 mg PO TID PRN PRN Reason: Anxiety Last Admin: 01/16/19 14:06 Dose: 0.25 mg Documented by: Amiodarone HCl (Cordarone) 400 mg PO BID [facility] Last Admin: 01/16/19 08:23 Dose: 400 mg Documented by: Apixaban (Eliquis) 2.5 mg PO BID [facility] Last Admin: 01/16/19 08:22 Dose: 2.5 mg Documented by: Budesonide/Formoterol Fumarate (Symbicort 160-4.5 Mcg Inhaler) 2 puff INHALATION RT-BID [facility] Last Admin: 01/16/19 07:21 Dose: 2 puff Documented by: Cefdinir (Omnicef) 300 mg PO DAILY [facility] Last Admin: 01/16/19 08:22 Dose: 300 mg Documented by: Peritoneal Dialysis Solution (Delflex With 2.5% Dextrose (2,000 Ml)) 50 g in 2,000 mls @ 0 mls/hr INTRAPERIT Q4H [facility]; Protocol Last Admin: 01/16/19 18:01 Dose: 2,000 mls/hr Documented by: Insulin Aspart (Novolog) 0 unit SQ ACHS [facility]; Protocol Last Admin: 01/16/19 18:02 Dose: 4 unit Documented by: Megestrol Acetate (Megace) 40 mg PO DAILY [facility] Last Admin: 01/16/19 08:22 Dose: 40 mg Documented by: Metoprolol Tartrate (Lopressor) 75 mg PO BID [facility] Last Admin: 01/16/19 08:23 Dose: 75 mg Documented by: Miscellaneous Information (Magnesium Per Protocol) 1 each MISCELLANE DAILY PRN; Protocol PRN Reason: Per Protocol Naloxone HCl (Narcan) 0.2 mg IV Q2M PRN PRN Reason: Opioid Reversal Pantoprazole Sodium (Protonix) 40 mg PO DAILY [facility] Last Admin: 01/16/19 08:22 Dose: 40 mg Documented by: Prednisone () 20 mg PO DAILY [facility] Last Admin: 01/16/19 08:22 Dose: 20 mg Documented by: On examination: VITAL SIGNS: 98.2, 102, 22, 95 x 69, 96% room air GENERAL APPEARANCE: Sitting up comfortable HEENT: Normal external appearance of nose and ear. Oral cavity normal EYES: Pupils equal. Conjunctiva normal. NECK: JVD not raised. Mass not palpable. RESPIRATORY: Respiratory effort increased, decreased breath sounds. CARDIOVASCULAR: Irregular heart sounds. No edema. ABDOMEN: Soft. Liver and spleen not palpable. No tenderness. No mass palpable. PD catheter in place. Chest distention PSYCHIATRY: Alert and oriented x3. Mood and affect slightly anxious INVESTIGATIONS, reviewed in the clinical context: Potassium 4.7 sodium 128 bun 95 creatinine 8.4 to Assessment: -Bilateral pneumonia, suspect gram-negative organism, POA, resolved -Acute COPD exacerbation in an ex-smoker, POA, resolved -Hyponatremia suspect hypoosmolar, from excessive fluid intake, POA -Metabolic acidosis due to end-stage kidney disease -End-stage kidney disease on paternal dialysis -Hypertensive heart disease -Paroxysmal atrial fibrillation on chronic anticoagulation, heart rate holding around 100 -Chronic rheumatoid arthritis -Hyperlipidemia -Anxiety not otherwise specified -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 Improved Plan: Care was discussed with the patient and the family the bedside including . Continue current medication treatment plan. Peritoneal dialysis to continue.
[2019-01-16] MEDS: predniSONE 10 MG TAB PO SCH (19:56)
[2019-01-16 20:27] LABS: Glucose,Whole Blood 166 mg/dL (75-99)
--- NOTE | 2019-01-16 22:41 | PN ---
PROGRESS NOTE HISTORY: Brittany is a 73-year-old lady who was admitted to hospital with COPD exacerbation and atrial fibrillation. This morning heart rate is reasonably well controlled. She remains short of breath. PHYSICAL EXAM: On exam comfortable at rest. Heart rate is around 90 to 100 beats per minute. Blood pressure is 117/80, respirations 18. Chest exam reveals diminished air entry at the bases. Heart exam reveals first and second heart sounds, regular rhythm. Systolic murmur at the left lower sternal border abdomen is soft. Exam of extremities did not reveal any edema. Peripheral pulses are felt. LABS: Potassium of 4.7, BUN is 95, creatinine is 8.4. ASSESSMENT: 1. Chronic renal failure. 2. Atrial fibrillation with fairly well controlled ventricular rate. 3. COPD. PLAN: Patient will continue current medications. MMODL / IJN: [id number] /
[2019-01-17] MEDS: HYDROcodone/APAP 5-325MG 1 EACH TAB PO PRN ×2 (01:28→22:18)
[2019-01-17] MEDS: DIALYSIS (PERIT 2.5%) 2,000 ML 50 G/2,000 ML BAG INTRAPERIT SCH ×6 (02:08→22:00)
[2019-01-17 05:16] LABS: Glucose,Whole Blood 99 mg/dL (75-99)
[2019-01-17 06:28] LABS: Glucose,Whole Blood 118 mg/dL (75-99)
[2019-01-17] MEDS: INSULIN ASPART (NovoLOG) 100 UNIT/ML VIAL SQ SCH ×4 (06:28→20:56)
[2019-01-17] MEDS: SYMBICORT 160-4.5 MCG INHALER INHALATION SCH ×2 (08:12→20:01)
--- NOTE | 2019-01-17 08:57 | P.PN ---
Subjective Progress Note Date: 01/17/19 Principal diagnosis: Acute hypoxic respiratory failure with tachycardia and hypotension multifactorial, related to acute exacerbation of chronic obstructive pulmonary disease as well as atrial fibrillation/RVR On 01/17/2019 patient seen in follow-up on selective care unit, she is awake and alert, currently not on any oxygen, she remains in A. fib flutter with a rate of 107, 122 at times, denies any respiratory difficulty, room air pulse ox is 99%, she is hemodynamically stable, denies any chest pain, lung sounds are essentially clear to auscultation, no rhonchi, no wheezing on today's labs. No new labs today, no new chest x-rays, clinically patient is stable, she is re ceiving peritoneal dialysis. Nephrology is following. Peritoneal fluid culture showed no growth after 48 hours so far. Final culture is pending, patient is on oral anticoagulation in the form of Eliquis, she is on oral antibiotics in the form of Omnicef, and oral prednisone. Objective - Vital Signs Vital signs: Vital Signs Temp 97.9 F 01/17/19 03:29 Pulse 82 01/17/19 03:29 Resp 17 01/17/19 03:29 BP 148/97 01/17/19 03:29 Pulse Ox 99 01/17/19 03:29 Intake & Output 01/16/19 01/17/19 01/17/19 18:59 06:59 18:59 Intake Total 680 450 Output Total 2 Balance 678 450 Intake: Oral 680 450 Output: Stool 2 Other: Voiding Method Incontinent Incontinent CAPD CAPD # Voids 0 1 # Bowel Movements 1 - Exam GENERAL EXAM: Alert, pleasant, 73-year-old white female, on room air, with a pulse ox of 99% comfortable in no apparent distress. HEAD: Normocephalic/atraumatic. EYES: Normal reaction of pupils, equal size. Conjunctiva pink, sclera white. NOSE: Clear with pink turbinates. THROAT: No erythema or exudates. NECK: No masses, no JVD, no thyroid enlargement, no adenopathy. CHEST: No chest wall deformity. Symmetrical expansion. LUNGS: Equal air entry with no crackles, wheeze, rhonchi or dullness. CVS: Regular rate and rhythm, normal S1 and S2, no gallops, no murmurs, no rubs ABDOMEN: Soft, nontender. No hepatosplenomegaly, normal bowel sounds, no guarding or rigidity. Peritoneal dialysis is present covered with dressing EXTREMITIES: No clubbing, no edema, no cyanosis, 2+ pulses and upper and lower extremities. MUSCULOSKELETAL: Muscle strength and tone normal. SPINE: No scoliosis or deformity SKIN: No rashes CENTRAL NERVOUS SYSTEM: Alert and oriented -3. No focal deficits, tone is normal in all 4 extremities. PSYCHIATRIC: Alert and oriented -3. Appropriate affect. Intact judgment and insight. - Labs CBC & Chem 7: 01/15/19 04:20 01/16/19 09:10 Labs: Abnormal Lab Results - Last 24 Hours (Table) 01/16/19 01/16/19 01/16/19 Range/Units 09:10 11:40 16:48 Sodium 128 L (137-145) mmol/L Chloride 88 L (98-107) mmol/L BUN 95 H (7-17) mg/dL Creatinine 8.42 H* (0.52-1.04) mg/dL POC Glucose (mg/dL) 138 H 249 H (75-99) mg/dL 01/16/19 01/17/19 Range/Units 20:20 06:26 Sodium (137-145) mmol/L Chloride (98-107) mmol/L BUN (7-17) mg/dL Creatinine (0.52-1.04) mg/dL POC Glucose (mg/dL) 166 H 118 H (75-99) mg/dL Assessment and Plan Plan: Assessment: #1. Acute hypercapnic respiratory failure with tachycardia and hypotension, multifactorial, in part related to underlying chronic obstructive pulmonary disease exacerbation as well as A. fib with RVR, both conditions have significantly improved, patient is no longer requiring supplemental oxygen. Doubt pulmonary embolism #2. History of end-stage renal disease, on peritoneal dialysis #3. Chronic obstructive pulmonary disease, secondary to chronic tobacco use #4. History of gastroesophageal reflux disease #5. History of chronic atrial fibrillation on anticoagulation with Eliquis #6. Previous history of heavy tobacco use, currently in remission #7. History of hypertension #8. Prior history of cerebrovascular accident #9. History of syncopal episodes #10. Degenerative joint disease #11. Multiple previous surgeries Plan: Continue nebulized bronchodilators, continue oral prednisone, clinically patient is stable, not requiring supplemental oxygen, increase activity as tolerated, remains in A. fib, and the rate is still slightly tachycardic, mostly in the low 100s to 110s. We'll defer to cardiology as far as the rate control, patient denies any dyspnea, denies any chest pain, no fever or chills, peritoneal fluid culture remains negative thus far. She is on empiric antibiotics. From pulmonary perspective she could be cleared for discharge home, once cleared by cardiology I performed a history & physical examination of the patient and discussed their management with my nurse practitioner, Sasha Knutson. I reviewed the nurse practitioner's note and agree with the documented findings and plan of care. Lung sounds are positive for clear. The findings and the impression was discussed with the patient. I attest to the documentation by the nurse practitioner. Time with Patient: Less than 30
[2019-01-17] MEDS: MEGESTROL 40 MG TAB PO SCH (09:00)
[2019-01-17] MEDS: METOPROLOL TARTRATE 50 MG TAB PO SCH ×2 (09:01→20:58)
[2019-01-17] MEDS: CEFDINIR 300 MG CAP PO SCH (09:01)
[2019-01-17] MEDS: AMIODARONE 200 MG TAB PO SCH ×2 (09:01→20:58)
[2019-01-17] MEDS: predniSONE 20 MG TAB PO SCH (09:01)
[2019-01-17] MEDS: PANTOPRAZOLE 40 MG TABLET PO SCH (09:01)
[2019-01-17] MEDS: APIXABAN 2.5 MG TABLET PO SCH ×2 (09:01→20:59)
[2019-01-17 11:34] LABS: Glucose,Whole Blood 137 mg/dL (75-99)
--- NOTE | 2019-01-17 12:35 | CONS ---
CONSULTATION 73-year-old lady who is admitted to hospital with respiratory failure and has atrial fibrillation. She was in the ICU for a long time primarily from respiratory failure. She is in the selective care now. Overall, she is feeling better. Heart rate is well controlled at 80 beats per minute. She is on multiple medications including Cordarone 400 b.i.d., Eliquis 2.5 b.i.d., Lopressor, and Megace. EXAM: Heart rate is 80, blood pressure is 148/90, respiratory rate is 17. Chest exam reveals diminished air entry at the bases with occasional rhonchi. Heart exam reveals first and second heart sounds, irregular rhythm and a systolic murmur at the left lower sternal border. LABS: I do not have any labs from today. ASSESSMENT: Chronic atrial fibrillation with fairly well controlled ventricular rate. The patient is on 400 b.i.d. of amiodarone. Will decrease this to 200 b.i.d. tomorrow. Continue the Lopressor. MMRODGERL / TRINAN: [id number] /
--- NOTE | 2019-01-17 15:06 | P.PN ---
Progress Note - Text Progress Note Date: 01/17/19 Presenting complaint: Atrial fibrillation Interval history Patient admitted multiple medical problems admitted with shortness of breath. [place] to have pneumonia.'s treated with IV ceftriaxone. Also treated for COPD exacerbation. Also is on end-stage hemodialysis on peritoneal dialysis. [place] d for the same by nephrology. Put on fluid restriction because of low sodium. Patient went into A. fib with rapid ventricular rate and became fluid overloaded was transferred to the ICU on January 12. Today-laying in bed. Comfortable. Breathing stable. Getting peritoneal dialysis. No new issues. Review of systems: Was done for constitutional, cardiovascular, GI, pulmonary. relevant finding as above Active Medications Acetaminophen (Tylenol Tab) 500 mg PO Q6HR PRN PRN Reason: Fever and/ or Pain Hydrocodone Bitart/Acetaminophen ([place] 5-325) 1 each PO Q6HR PRN PRN Reason: Pain Last Admin: 01/17/19 01:28 Dose: 1 each Documented by: Albuterol/Ipratropium (Duoneb 0.5 Mg-3 Mg/3 Ml Soln) 3 ml INHALATION RT-Q4H PRN PRN Reason: Shortness Of Breath Or Wheezing Last Admin: 01/14/19 15:43 Dose: 3 ml Documented by: Alprazolam (Xanax) 0.25 mg PO TID PRN PRN Reason: Anxiety Last Admin: 01/16/19 21:57 Dose: 0.25 mg Documented by: Amiodarone HCl (Cordarone) 400 mg PO BID [facility] Last Admin: 01/17/19 09:01 Dose: 400 mg Documented by: Apixaban (Eliquis) 2.5 mg PO BID [facility] Last Admin: 01/17/19 09:01 Dose: 2.5 mg Documented by: Budesonide/Formoterol Fumarate (Symbicort 160-4.5 Mcg Inhaler) 2 puff INHALATION RT-BID [facility] Last Admin: 01/17/19 08:12 Dose: 2 puff Documented by: Cefdinir (Omnicef) 300 mg PO DAILY [facility] Last Admin: 01/17/19 09:01 Dose: 300 mg Documented by: Peritoneal Dialysis Solution (Delflex With 2.5% Dextrose (2,000 Ml)) 50 g in 2,000 mls @ 0 mls/hr INTRAPERIT Q4H [facility]; Protocol Last Admin: 01/17/19 10:08 Dose: 2,000 mls/hr Documented by: Insulin Aspart (Novolog) 0 unit SQ ACHS [facility]; Protocol Last Admin: 01/17/19 14:30 Dose: Not Given Documented by: Megestrol Acetate (Megace) 40 mg PO DAILY [facility] Last Admin: 01/17/19 09:00 Dose: 40 mg Documented by: Metoprolol Tartrate (Lopressor) 75 mg PO BID [facility] Last Admin: 01/17/19 09:01 Dose: 75 mg Documented by: Miscellaneous Information (Magnesium Per Protocol) 1 each MISCELLANE DAILY PRN; Protocol PRN Reason: Per Protocol Naloxone HCl (Narcan) 0.2 mg IV Q2M PRN PRN Reason: Opioid Reversal Pantoprazole Sodium (Protonix) 40 mg PO DAILY [facility] Last Admin: 01/17/19 09:01 Dose: 40 mg Documented by: Prednisone () 20 mg PO DAILY [facility] Last Admin: 01/17/19 09:01 Dose: 20 mg Documented by: On examination: VITAL SIGNS: 97.7, 102, 20, 100 x 75, 93% room air GENERAL APPEARANCE: Laying in bed, comfortable HEENT: Normal external appearance of nose and ear. Oral cavity normal EYES: Pupils equal. Conjunctiva normal. NECK: JVD not raised. Mass not palpable. RESPIRATORY: Respiratory effort increased, decreased breath sounds. CARDIOVASCULAR: Irregular heart sounds. No edema. ABDOMEN: Soft. Liver and spleen not palpable. No tenderness. No mass palpable. PD catheter in place. Chest distention PSYCHIATRY: Alert and oriented x3. Mood and affect slightly anxious INVESTIGATIONS, reviewed in the clinical context: Accu-Cheks noted Assessment: -Bilateral pneumonia, suspect gram-negative organism, POA, resolved -Acute COPD exacerbation in an ex-smoker, POA, resolved -Hyponatremia suspect hypoosmolar, from excessive fluid intake, POA -Metabolic acidosis due to end-stage kidney disease -End-stage kidney disease on paternal dialysis -Hypertensive heart disease -Paroxysmal atrial fibrillation on chronic anticoagulation, heart rate holding around 100 -Chronic rheumatoid arthritis -Hyperlipidemia -Anxiety not otherwise specified -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 Improved Plan: Stable. Continue meds. Discussed with patient and . Awaiting placement at [facility].
[2019-01-17 17:07] LABS: Glucose,Whole Blood 146 mg/dL (75-99)
--- NOTE | 2019-01-17 19:32 | PN ---
PROGRESS NOTE Patient is seen for followup for end-stage renal disease. She is maintained on peritoneal dialysis and tolerating her treatment well. Patient denies any significant complaints today. She is scheduled for discharge to [facility] tomorrow. PHYSICAL EXAMINATION: On examination today, blood pressure was 91/55, heart rate 116 per minute. She is afebrile. Examination of the heart S1, S2. Examination of the lungs, bilateral breath sounds are heard. Abdomen is soft, nontender. Examination lower extremities shows no evidence of edema. SUPERVISOR LITHARGE exam grossly intact. LABS: Not available from today. ASSESSMENT: 1. End-stage renal disease, on peritoneal dialysis. Continue current PD exchanges. Repeat labs in a.m. 2. Disproportionate elevated BUN secondary to steroids, now improved. 3. Hypertension with severe bilateral renal artery stenosis. Currently, blood pressure is controlled. Patient is not on any ZO inhibitors as she had developed significant hypotension which is now resolved. 4. Atrial fibrillation with rapid ventricular response, now with controlled ventricular response, maintained on Eliquis and Lopressor for rate control. 5. Gastroesophageal reflux disease. PLAN: Continue current PD exchanges. Followup as outpatient with Cardiology and at the dialysis unit post discharge. MMODL / IJN: [id number] /
[2019-01-17 20:46] LABS: Glucose,Whole Blood 139 mg/dL (75-99)
[2019-01-17] MEDS: ALPRAZolam 0.25 MG TAB PO PRN (22:19)
[2019-01-18] MEDS: DIALYSIS (PERIT 2.5%) 2,000 ML 50 G/2,000 ML BAG INTRAPERIT SCH ×6 (02:07→23:08)
[2019-01-18 05:57] LABS: Anisocytosis Slight; Basophils % (A) 0 %; Eosinophils # (A) 0.1 k/uL (0-0.7); Eosinophils % (A) 1 %; HCT 40.6 % (34.0-46.0); HGB 13.1 gm/dL (11.4-16.0); Lymphocytes # (A) 1.1 k/uL (1.0-4.8); Lymphocytes % (A) 8 %; MCH 31.9 pg (25.0-35.0); MCHC 32.2 g/dL (31.0-37.0); MCV 98.8 fL (80.0-100.0); Macrocytosis Slight; Mean Platelet Volume 7.4; Monocytes # (A) 0.7 k/uL (0-1.0); Monocytes % (A) 5 %; Neutrophils # (A) 11.4 k/uL (1.3-7.7); Neutrophils % (A) 84 %; Platelet Count 393 k/uL (150-450); RBC 4.11 m/uL (3.80-5.40); WBC 13.6 k/uL (3.8-10.6)
[2019-01-18 06:08] LABS: Calcium 8.8 mg/dL (8.4-10.2); Potassium 4.8 mmol/L (3.5-5.1)
[2019-01-18 06:08] LABS: Glucose,Whole Blood 101 mg/dL (75-99)
[2019-01-18] MEDS: INSULIN ASPART (NovoLOG) 100 UNIT/ML VIAL SQ SCH ×4 (06:34→21:18)
[2019-01-18] MEDS: SYMBICORT 160-4.5 MCG INHALER INHALATION SCH ×2 (08:07→20:04)
[2019-01-18] MEDS: ALPRAZolam 0.25 MG TAB PO PRN ×2 (09:24→17:04)
[2019-01-18] MEDS: APIXABAN 2.5 MG TABLET PO SCH ×2 (09:25→21:14)
[2019-01-18] MEDS: predniSONE 20 MG TAB PO SCH (09:25)
[2019-01-18] MEDS: AMIODARONE 200 MG TAB PO SCH ×2 (09:25→21:14)
[2019-01-18] MEDS: PANTOPRAZOLE 40 MG TABLET PO SCH (09:25)
[2019-01-18] MEDS: MEGESTROL 40 MG TAB PO SCH (09:25)
[2019-01-18] MEDS: CEFDINIR 300 MG CAP PO SCH (09:30)
[2019-01-18] MEDS: METOPROLOL TARTRATE 50 MG TAB PO SCH ×2 (09:32→21:15)
--- NOTE | 2019-01-18 10:15 | P.PN ---
Subjective Patient is seen in follow-up for end-stage renal disease. She is maintained on peritoneal dialysis which is going well. No constipation. No chest pain or shortness of breath. Vital signs are stable. General: The patient appeared well nourished and normally developed. HEENT: Head exam is unremarkable. Neck is without jugular venous distension. LUNGS: Lungs are clear to auscultation and percussion. Breath sounds decreased. HEART: Rate and Rhythm are regular. First and second heart sounds normal. No murmurs, rubs or gallops. ABDOMEN: Abdominal exam reveals normal bowel sounds. Non-tender and non- distended. No evidence of peritonitis. EXTREMITITES: No clubbing, cyanosis, or edema. Objective - Vital Signs Vital signs: Vital Signs Temp 97.7 F 01/18/19 08:18 Pulse 125 H 01/18/19 08:29 Resp 16 01/18/19 08:29 BP 95/67 01/18/19 08:18 Pulse Ox 100 01/18/19 08:18 Intake & Output 01/17/19 01/18/19 01/18/19 18:59 06:59 18:59 Intake Total 610 400 Output Total 2 Balance 608 400 Intake: Oral 610 400 Output: Urine 0 Stool 2 Other: Voiding Method Incontinent CAPD # Voids 1 0 # Bowel Movements 1 - Labs CBC & Chem 7: 01/18/19 05:34 01/18/19 05:34 Labs: Abnormal Lab Results - Last 24 Hours (Table) 01/17/19 01/17/19 01/17/19 Range/Units 11:15 17:03 20:44 WBC (3.8-10.6) k/uL RDW (11.5-15.5) % Neutrophils # (1.3-7.7) k/uL Sodium (137-145) mmol/L Chloride (98-107) mmol/L BUN (7-17) mg/dL Creatinine (0.52-1.04) mg/dL Glucose (74-99) mg/dL POC Glucose (mg/dL) 137 H 146 H 139 H (75-99) mg/dL 01/18/19 01/18/19 01/18/19 Range/Units 05:34 05:34 05:52 WBC 13.6 H (3.8-10.6) k/uL RDW 17.0 H (11.5-15.5) % Neutrophils # 11.4 H (1.3-7.7) k/uL Sodium 130 L (137-145) mmol/L Chloride 89 L (98-107) mmol/L BUN 82 H (7-17) mg/dL Creatinine 8.02 H* (0.52-1.04) mg/dL Glucose 101 H (74-99) mg/dL POC Glucose (mg/dL) 101 H (75-99) mg/dL Assessment and Plan Plan: Assessment: 1. End-stage renal disease maintained on peritoneal dialysis. 2. Dyspnea secondary to COPD exacerbation. No evidence of gross fluid overload at this time. 3. Paroxysmal A. fib maintained on amiodarone, Lopressor and anticoagulation. 4. Hyponatremia secondary to chronic kidney disease and excess fluid intake. Stable. 5. Metabolic acidosis secondary to chronic kidney disease. Improved. 6. Hypertension with chronic kidney disease. Also has history of bilateral renal artery stenosis. Controlled. Plan: Maintain current PD exchanges. Stable to be discharged from nephrology standpoint.
[2019-01-18 12:03] LABS: Glucose,Whole Blood 121 mg/dL (75-99)
--- NOTE | 2019-01-18 13:17 | P.PN ---
Subjective Progress Note Date: 01/18/19 Principal diagnosis: Acute hypoxic respiratory failure with tachycardia and hypotension multifactorial, related to acute exacerbation of chronic obstructive pulmonary disease as well as atrial fibrillation/RVR On 01/17/2019 patient seen in follow-up on selective care unit, she is awake and alert, currently not on any oxygen, she remains in A. fib flutter with a rate of 107, 122 at times, denies any respiratory difficulty, room air pulse ox is 99%, she is hemodynamically stable, denies any chest pain, lung sounds are essentially clear to auscultation, no rhonchi, no wheezing on today's labs. No new labs today, no new chest x-rays, clinically patient is stable, she is re ceiving peritoneal dialysis. Nephrology is following. Peritoneal fluid culture showed no growth after 48 hours so far. Final culture is pending, patient is on oral anticoagulation in the form of Eliquis, she is on oral antibiotics in the form of Omnicef, and oral prednisone. On 01/18/2019 patient seen in follow-up on selective care unit, in no acute distress, she sits up in the recliner, room air pulse ox is 99%, minimal end expiratory wheezes, no fever or chills, no couplets or chest pain, and is in A. fib, and the rate is ranging from 113-125, cardiology is following, and patient is on oral amiodarone and Eliquis. No new chest x-rays, today's labs have been reviewed, showing white blood cell, 13.6, hemoglobin of 13.1, serum sodium is 1:30, potassium is 4.8, chloride is 89, BUN is 82, creatinine 8.02. Patient is having to peritoneal dialysis exchanges daily. Objective - Vital Signs Vital signs: Vital Signs Temp 97.7 F 01/18/19 08:18 Pulse 113 H 01/18/19 12:00 Resp 19 01/18/19 12:00 BP 107/72 01/18/19 12:00 Pulse Ox 99 01/18/19 12:00 Intake & Output 01/17/19 01/18/19 01/18/19 18:59 06:59 18:59 Intake Total 610 400 180 Output Total 2 0 Balance 608 400 180 Intake: Oral 610 400 180 Output: Urine 0 0 Stool 2 Other: Voiding Method Incontinent Incontinent CAPD CAPD # Voids 1 0 # Bowel Movements 1 1 - Exam GENERAL EXAM: Alert, pleasant, 73-year-old white female, on room air, with a pulse ox of 99% comfortable in no apparent distress. HEAD: Normocephalic/atraumatic. EYES: Normal reaction of pupils, equal size. Conjunctiva pink, sclera white. NOSE: Clear with pink turbinates. THROAT: No erythema or exudates. NECK: No masses, no JVD, no thyroid enlargement, no adenopathy. CHEST: No chest wall deformity. Symmetrical expansion. LUNGS: Equal air entry with minimal end expiratory wheezes CVS: Regular rate and rhythm, normal S1 and S2, no gallops, no murmurs, no rubs ABDOMEN: Soft, nontender. No hepatosplenomegaly, normal bowel sounds, no guarding or rigidity. Peritoneal dialysis is present covered with dressing EXTREMITIES: No clubbing, no edema, no cyanosis, 2+ pulses and upper and lower extremities. MUSCULOSKELETAL: Muscle strength and tone normal. SPINE: No scoliosis or deformity SKIN: No rashes CENTRAL NERVOUS SYSTEM: Alert and oriented -3. No focal deficits, tone is n ormal in all 4 extremities. PSYCHIATRIC: Alert and oriented -3. Appropriate affect. Intact judgment and insight. - Labs CBC & Chem 7: 01/18/19 05:34 01/18/19 05:34 Labs: Abnormal Lab Results - Last 24 Hours (Table) 01/17/19 01/17/19 01/18/19 Range/Units 17:03 20:44 05:34 WBC 13.6 H (3.8-10.6) k/uL RDW 17.0 H (11.5-15.5) % Neutrophils # 11.4 H (1.3-7.7) k/uL Sodium (137-145) mmol/L Chloride (98-107) mmol/L BUN (7-17) mg/dL Creatinine (0.52-1.04) mg/dL Glucose (74-99) mg/dL POC Glucose (mg/dL) 146 H 139 H (75-99) mg/dL 01/18/19 01/18/19 01/18/19 Range/Units 05:34 05:52 12:00 WBC (3.8-10.6) k/uL RDW (11.5-15.5) % Neutrophils # (1.3-7.7) k/uL Sodium 130 L (137-145) mmol/L Chloride 89 L (98-107) mmol/L BUN 82 H (7-17) mg/dL Creatinine 8.02 H* (0.52-1.04) mg/dL Glucose 101 H (74-99) mg/dL POC Glucose (mg/dL) 101 H 121 H (75-99) mg/dL Assessment and Plan Plan: Assessment: #1. Acute hypercapnic respiratory failure with tachycardia and hypotension, multifactorial, in part related to underlying chronic obstructive pulmonary dis ease exacerbation as well as A. fib with RVR, both conditions have significantly improved, patient is no longer requiring supplemental oxygen. Doubt pulmonary embolism #2. History of end-stage renal disease, on peritoneal dialysis #3. Chronic obstructive pulmonary disease, secondary to chronic tobacco use #4. History of gastroesophageal reflux disease #5. History of chronic atrial fibrillation on anticoagulation with Eliquis #6. Previous history of heavy tobacco use, currently in remission #7. History of hypertension #8. Prior history of cerebrovascular accident #9. History of syncopal episodes #10. Degenerative joint disease #11. Multiple previous surgeries Plan: Patient is stable for discharge to subacute care facility from pulmonary perspective, she can continue on oral prednisone, Symbicort and nebulized bronchodilators, denies any specific complaints, no chest pain, no worsening dyspnea, increase activity as tolerated. Patient continues on peritoneal dialys is twice daily, nephrology is following. Patient is being discharged to [facility] today I performed a history & physical examination of the patient and discussed their management with my nurse practitioner, Sasha Knutson. I reviewed the nurse practitioner's note and agree with the documented findings and plan of care. Lung sounds are positive for clear. The findings and the impression was di scussed with the patient. I attest to the documentation by the nurse practitioner. Time with Patient: Less than 30
--- NOTE | 2019-01-18 14:58 | P.PN ---
Subjective Progress Note Date: 01/18/19 This is 73-year-old female admitted to the hospital with acute hypoxic respiratory failure with associated tachycardia and hypotension, secondary to COPD exacerbation as well as atrial fibrillation. Patient was seen and examined this morning, continues to be in atrial fibrillation, her heart rate this morning is in the 1 teens to 120 range. She is currently on amiodarone 400 mg by mouth twice a day which we will continue at that dose. Her blood pressures 95/60 which does not give as much room to increase her beta jil at this time. She continues to have significant rhonchi, and coughs consistently. White blood cell count 13.6, hemoglobin 13.1, platelet count 393. Sodium 1:30, potassium 4.8, BUN 82 and creatinine 8.02. Objective - Vital Signs Vital signs: Vital Signs Temp 97.7 F 01/18/19 08:18 Pulse 113 H 01/18/19 12:00 Resp 19 01/18/19 12:00 BP 107/72 01/18/19 12:00 Pulse Ox 99 01/18/19 12:00 Intake & Output 01/17/19 01/18/19 01/18/19 18:59 06:59 18:59 Intake Total 610 400 180 Output Total 2 0 Balance 608 400 180 Intake: Oral 610 400 180 Output: Urine 0 0 Stool 2 Other: Voiding Method Incontinent Incontinent CAPD CAPD # Voids 1 0 # Bowel Movements 1 1 - Exam HEAD: Normocephalic/atraumatic. EYES: Normal reaction of pupils, equal size. Conjunctiva pink, sclera white. NOSE: Clear with pink turbinates. THROAT: No erythema or exudates. NECK: No masses, no JVD, no thyroid enlargement, no adenopathy. CHEST: No chest wall deformity. Symmetrical expansion. LUNGS: Equal air entry with minimal end expiratory wheezes CVS: Regular rate and rhythm, normal S1 and S2, no gallops, no murmurs, no rubs ABDOMEN: Soft, nontender. No hepatosplenomegaly, normal bowel sounds, no guarding or rigidity. Peritoneal dialysis is present covered with dressing EXTREMITIES: No clubbing, no edema, no cyanosis, 2+ pulses and upper and lower extremities. MUSCULOSKELETAL: Muscle strength and tone normal. SPINE: No scoliosis or deformity SKIN: No rashes CENTRAL NERVOUS SYSTEM: Alert and oriented -3. No focal deficits, tone is normal in all 4 extremities. PSYCHIATRIC: Alert and oriented -3. Appropriate affect. Intact judgment and insight. - Labs CBC & Chem 7: 01/18/19 05:34 01/18/19 05:34 Labs: Abnormal Lab Results - Last 24 Hours (Table) 01/17/19 01/17/19 01/18/19 Range/Units 17:03 20:44 05:34 WBC 13.6 H (3.8-10.6) k/uL RDW 17.0 H (11.5-15.5) % Neutrophils # 11.4 H (1.3-7.7) k/uL Sodium (137-145) mmol/L Chloride (98-107) mmol/L BUN (7-17) mg/dL Creatinine (0.52-1.04) mg/dL Glucose (74-99) mg/dL POC Glucose (mg/dL) 146 H 139 H (75-99) mg/dL 01/18/19 01/18/19 01/18/19 Range/Units 05:34 05:52 12:00 WBC (3.8-10.6) k/uL RDW (11.5-15.5) % Neutrophils # (1.3-7.7) k/uL Sodium 130 L (137-145) mmol/L Chloride 89 L (98-107) mmol/L BUN 82 H (7-17) mg/dL Creatinine 8.02 H* (0.52-1.04) mg/dL Glucose 101 H (74-99) mg/dL POC Glucose (mg/dL) 101 H 121 H (75-99) mg/dL Assessment and Plan Plan: Assessment: #1. Acute hypercapnic respiratory failure with tachycardia and hypotension, multifactorial, in part related to underlying chronic obstructive pulmonary disease exacerbation as well as A. fib with RVR, both conditions have s ignificantly improved, patient is no longer requiring supplemental oxygen. Doubt pulmonary embolism #2. History of end-stage renal disease, on peritoneal dialysis #3. Chronic obstructive pulmonary disease, secondary to chronic tobacco use #4. History of gastroesophageal reflux disease #5. History of chronic atrial fibrillation on anticoagulation with Eliquis #6. Previous history of heavy tobacco use, currently in remission #7. History of hypertension #8. Prior history of cerebrovascular accident #9. History of syncopal episodes #10. Degenerative joint disease #11. Multiple previous surgeries Plan We will continue the amiodarone at 400 mg one tablet by mouth twice a day for today, blood pressure remains on the low side, we will not increase the beta jil at this time. Continue to monitor. DNP note has been reviewed, I agree with a documented findings and plan of care. Patient was seen and examined.
[2019-01-18] MEDS ORDERED: AMIODARONE 200 MG TAB PO SCH ×2 (16:00→21:00)
[2019-01-18 17:20] LABS: Glucose,Whole Blood 169 mg/dL (75-99)
[2019-01-18] MEDS: IPRATROPIUM-ALBUTEROL 3 ML NEB INHALATION PRN (20:04)
[2019-01-18 21:04] LABS: Glucose,Whole Blood 351 mg/dL (75-99)
--- NOTE | 2019-01-19 00:23 | P.PN ---
Progress Note - Text Progress Note Date: 01/18/19 Presenting complaint: Atrial fibrillation Interval history Patient admitted multiple medical problems admitted with shortness of breath. [place] to have pneumonia.'s treated with IV ceftriaxone. Also treated for COPD exacerbation. Also is on end-stage hemodialysis on peritoneal dialysis. Treat ed for the same by nephrology. Put on fluid restriction because of low sodium. Patient went into A. fib with rapid ventricular rate and became fluid overloaded was transferred to the ICU on January 12. Today-blood pressure bit on the lower side. Dialysis to continue. No new issues. Heart rate controlled. Review of systems: Was done for constitutional, cardiovascular, GI, pulmonary. relevant finding as above Active Medications Acetaminophen (Tylenol Tab) 500 mg PO Q6HR PRN PRN Reason: Fever and/ or Pain Hydrocodone Bitart/Acetaminophen ([place] 5-325) 1 each PO Q6HR PRN PRN Reason: Pain Last Admin: 01/17/19 22:18 Dose: 1 each Documented by: Albuterol/Ipratropium (Duoneb 0.5 Mg-3 Mg/3 Ml Soln) 3 ml INHALATION RT-Q4H PRN PRN Reason: Shortness Of Breath Or Wheezing Last Admin: 01/18/19 20:04 Dose: 3 ml Documented by: Alprazolam (Xanax) 0.25 mg PO TID PRN PRN Reason: Anxiety Last Admin: 01/18/19 17:04 Dose: 0.25 mg Documented by: Amiodarone HCl (Cordarone) 400 mg PO BID [facility] Last Admin: 01/18/19 21:14 Dose: 400 mg Documented by: Apixaban (Eliquis) 2.5 mg PO BID [facility] Last Admin: 01/18/19 21:14 Dose: 2.5 mg Documented by: Budesonide/Formoterol Fumarate (Symbicort 160-4.5 Mcg Inhaler) 2 puff INHALATION RT-BID [facility] Last Admin: 01/18/19 20:04 Dose: 2 puff Documented by: Peritoneal Dialysis Solution (Delflex With 2.5% Dextrose (2,000 Ml)) 50 g in 2,000 mls @ 0 mls/hr INTRAPERIT Q4H [facility]; Protocol Last Admin: 01/18/19 23:08 Dose: 2,000 mls/hr Documented by: Insulin Aspart (Novolog) 0 unit SQ ACHS [facility]; Protocol Last Admin: 01/18/19 21:18 Dose: 6 unit Documented by: Megestrol Acetate (Megace) 40 mg PO DAILY [facility] Last Admin: 01/18/19 09:25 Dose: 40 mg Documented by: Metoprolol Tartrate (Lopressor) 75 mg PO BID [facility] Last Admin: 01/18/19 21:15 Dose: 75 mg Documented by: Miscellaneous Information (Magnesium Per Protocol) 1 each MISCELLANE DAILY PRN; Protocol PRN Reason: Per Protocol Naloxone HCl (Narcan) 0.2 mg IV Q2M PRN PRN Reason: Opioid Reversal Pantoprazole Sodium (Protonix) 40 mg PO DAILY [facility] Last Admin: 01/18/19 09:25 Dose: 40 mg Documented by: Prednisone () 20 mg PO DAILY [facility] Last Admin: 01/18/19 09:25 Dose: 20 mg Documented by: On examination: VITAL SIGNS: 98.2, 120, 18, 104/73, 99% room air GENERAL APPEARANCE: Sitting up, comfortable HEENT: Normal external appearance of nose and ear. Oral cavity normal EYES: Pupils equal. Conjunctiva normal. NECK: JVD not raised. Mass not palpable. RESPIRATORY: Respiratory effort increased, decreased breath sounds. CARDIOVASCULAR: Irregular heart sounds. No edema. ABDOMEN: Soft. Liver and spleen not palpable. No tenderness. No mass palpable. PD catheter in place. Chest distention PSYCHIATRY: Alert and oriented x3. 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 Improved Plan: Continue current medication treatment plan. Pending placement.
[2019-01-19] MEDS: DIALYSIS (PERIT 2.5%) 2,000 ML 50 G/2,000 ML BAG INTRAPERIT SCH ×4 (04:11→14:16)
[2019-01-19] MEDS: INSULIN ASPART (NovoLOG) 100 UNIT/ML VIAL SQ SCH ×2 (06:23→12:58)
[2019-01-19 06:24] LABS: Glucose,Whole Blood 92 mg/dL (75-99)
[2019-01-19] MEDS: SYMBICORT 160-4.5 MCG INHALER INHALATION SCH (08:32)
[2019-01-19] MEDS: HYDROcodone/APAP 5-325MG 1 EACH TAB PO PRN (08:53)
[2019-01-19 09:04] VITALS: RESP 20
[2019-01-19] MEDS: AMIODARONE 200 MG TAB PO SCH (09:40)
[2019-01-19] MEDS: MEGESTROL 40 MG TAB PO SCH (09:41)
[2019-01-19] MEDS: PANTOPRAZOLE 40 MG TABLET PO SCH (09:42)
[2019-01-19] MEDS: APIXABAN 2.5 MG TABLET PO SCH (09:42)
[2019-01-19] MEDS: METOPROLOL TARTRATE 50 MG TAB PO SCH (09:42)
[2019-01-19] MEDS: predniSONE 20 MG TAB PO SCH (09:43)
--- NOTE | 2019-01-19 10:59 | P.PN ---
Subjective Patient is seen in follow-up for end-stage renal disease. She is maintained on peritoneal dialysis which is going well. No constipation. No chest pain or shortness of breath. Admits to generalized pain. Vital signs are stable. General: The patient appeared well nourished and normally developed. HEENT: Head exam is unremarkable. Neck is without jugular venous distension. LUNGS: Lungs are clear to auscultation and percussion. Breath sounds decreased. HEART: Rate and Rhythm are regular. First and second heart sounds normal. No murmurs, rubs or gallops. ABDOMEN: Abdominal exam reveals normal bowel sounds. Non-tender and non- distended. EXTREMITITES: No clubbing, cyanosis, or edema. Objective - Vital Signs Vital signs: Vital Signs Temp 97.8 F 01/19/19 08:20 Pulse 91 01/19/19 08:40 Resp 20 01/19/19 08:40 BP 90/68 01/19/19 08:20 Pulse Ox 97 01/19/19 08:20 Intake & Output 01/18/19 01/19/19 01/19/19 18:59 06:59 18:59 Intake Total 410 240 Output Total 0 0 Balance 410 0 240 Weight 53 kg Intake: Oral 410 240 Output: Urine 0 0 Other: Voiding Method Incontinent Incontinent Incontinent CAPD CAPD CAPD # Bowel Movements 1 1 1 - Labs CBC & Chem 7: 01/18/19 05:34 01/18/19 05:34 Labs: Abnormal Lab Results - Last 24 Hours (Table) 01/18/19 01/18/19 01/18/19 Range/Units 12:00 17:03 21:02 POC Glucose (mg/dL) 121 H 169 H 351 H (75-99) mg/dL Assessment and Plan Plan: Assessment: 1. End-stage renal disease maintained on peritoneal dialysis. 2. Dyspnea secondary to COPD exacerbation. No evidence of gross fluid overload at this time. 3. Paroxysmal A. fib maintained on amiodarone, Lopressor and anticoagulation. 4. Hyponatremia secondary to chronic kidney disease and excess fluid intake. Stable. 5. Metabolic acidosis secondary to chronic kidney disease. Improved. 6. Hypertension with chronic kidney disease. Also has history of bilateral renal artery stenosis. Controlled. Plan: Maintain current PD exchanges. Check dialysate cell count, Gram stain and culture today. Repeat electrolytes in the morning.
[2019-01-19 11:52] LABS: Glucose,Whole Blood 155 mg/dL (75-99)
[2019-01-19 12:25] VITALS: BP 98/63; PULSE 103; TEMP 97.7
--- NOTE | 2019-01-19 13:13 | P.DS ---
Providers Date of admission: 01/09/19 16:28 Expected date of discharge: 01/19/19 Attending physician: Steve Hudson Consults: 01/08/19 19:46 Consult Physician Routine Consulting Provider: Alfredo Wilde Consult Reason/Comments: Known Patient; CAPD Do you want consulting provider notified?: Yes, Notify in am 01/08/19 20:21 Consult Physician Routine Consulting Provider: Mateusz Lemon Consult Reason/Comments: high trops, BNP Do you want consulting provider notified?: Yes 01/12/19 12:40 Consult Physician Routine Consulting Provider: Hemanth Sampson Consult Reason/Comments: AFib Do you want consulting provider notified?: Yes 01/12/19 12:41 Consult Physician Routine Consulting Provider: Slade Pineda Consult Reason/Comments: hypotension Do you want consulting provider notified?: Already Contacted Primary care physician: [facility] Course: Presenting complaint: Atrial fibrillation Hospital course Patient admitted multiple medical problems admitted with shortness of breath. [place] to have pneumonia.'s treated with IV ceftriaxone. Also treated for COPD exacerbation. Also is on end-stage hemodialysis on peritoneal dialysis. Treated for the same by nephrology. Put on fluid restriction because of low sodium. Patient went into A. fib with rapid ventricular rate and became fluid overloaded was transferred to the ICU on January 12. Heart rate is better controlled. Holding around 100. Admitted to note is that patient's blood pressure is rather labile. Fluctuates anywhere from 100 systolic 160 systolic. This is being followed by nephrology. Consults: Nephrology Dr. Parmar at all from pulmonary Cardiology associates On examination: VITAL SIGNS: 97.7, 103, 20, 98 x 63, 93% on 2 L GENERAL APPEARANCE: Sitting up, comfortable HEENT: Normal external appearance of nose and ear. Oral cavity normal EYES: Pupils equal. Conjunctiva normal. NECK: JVD not raised. Mass not palpable. RESPIRATORY: Respiratory effort increased, decreased breath sounds. CARDIOVASCULAR: Irregular heart sounds. No edema. ABDOMEN: Soft. Liver and spleen not palpable. No tenderness. No mass palpable. PD catheter in place. Chest distention PSYCHIATRY: Alert and oriented x3. 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 Improved Disposition: [facility] Patient Condition at Discharge: Stable Plan - Discharge Summary Discharge Rx Participant: Yes New Discharge Prescriptions: New predniSONE 0 mg PO DIRECTED #1 tab Sodium Bicarbonate Tab 650 mg PO BID tab Amiodarone [Cordarone] 200 mg PO TID tab Metoprolol Tartrate [Lopressor] 75 mg PO BID tab Budesonide-Formot 160-4.5 Mcg [Symbicort 160-4.5 Mcg Inhaler] 2 puff INHALATION RT-BID puff Continue Omeprazole [PriLOSEC] 20 mg PO DAILY Budesonide [Pulmicort] 0.5 mg INHALATION RT-BID #30 nebu Apixaban [Eliquis] 2.5 mg PO BID #60 tab Megestrol [Megace] 40 mg PO DAILY #3 tab Changed Ipratropium-Albuterol Nebulize [Duoneb 0.5 mg-3 mg/3 ml Soln] 3 ml INHALATION QID #90 ampul.neb Discontinued Amiodarone [Cordarone] 400 mg PO BID #30 tab Ipratropium-Albuterol Nebulize [Duoneb 0.5 mg-3 mg/3 ml Soln] 3 ml INHALATION RT-Q4H PRN #90 ampul.neb PRN Reason: Shortness Of Breath Or Wheezing Metoprolol Tartrate [Lopressor] 25 mg PO BID #60 tab Discharge Medication List Omeprazole [PriLOSEC] 20 mg PO DAILY 12/28/18 [History] Apixaban [Eliquis] 2.5 mg PO BID #60 tab 01/03/19 [Rx] Budesonide [Pulmicort] 0.5 mg INHALATION RT-BID #30 nebu 01/03/19 [Rx] Amiodarone [Cordarone] 200 mg PO TID tab 01/10/19 [Rx] Megestrol [Megace] 40 mg PO DAILY #3 tab 01/10/19 [Rx] Metoprolol Tartrate [Lopressor] 75 mg PO BID tab 01/10/19 [Rx] Sodium Bicarbonate Tab 650 mg PO BID tab 01/10/19 [Rx] predniSONE 0 mg PO DIRECTED #1 tab 01/10/19 [Rx] Budesonide-Formot 160-4.5 Mcg [Symbicort 160-4.5 Mcg Inhaler] 2 puff INHALATION RT-BID puff 01/19/19 [Rx] Ipratropium-Albuterol Nebulize [Duoneb 0.5 mg-3 mg/3 ml Soln] 3 ml INHALATION QID #90 ampul.neb 01/19/19 [Rx] Follow up Appointment(s)/Referral(s): Soren Desai MD [Primary Care Provider] - 01/19/19 10:00 am Henry Curry MD [STAFF PHYSICIAN] - 1 Week Activity/Diet/Wound Care/Special Instructions: Peritoneal dialysis order as per nephrology for ECF Fluid restriction 1400 mL a day CBC BMP in 3 days
--- NOTE | 2019-01-19 13:23 | XR ---
EXAMINATION TYPE: XR chest 2V DATE OF EXAM: 01/19/2019 COMPARISON: 01/14/2019 HISTORY: Shortness of breath TECHNIQUE: Frontal and lateral views of the chest are obtained. FINDINGS: Persistent nodular density at the right lung base appears to represent a nipple shadow. Pu lmonary hyperinflation and flattening of the diaphragms represents underlying COPD. Mild osseous brayan neralization. Cardia mucinous fluid is upper limits of normal. Biapical pleural-parenchymal thickenin g that is calcific atherosclerosis of the axillary arteries and their branches. No focal consolidatio n, pleural effusion or pneumothorax. IMPRESSION: Chronic changes with no acute cardiopulmonary process.
--- NOTE | 2019-01-19 14:32 | P.PN ---
Subjective Progress Note Date: 01/19/19 This is 73-year-old female admitted to the hospital with acute hypoxic respiratory failure with associated tachycardia and hypotension, secondary to COPD exacerbation as well as atrial fibrillation. Patient was seen and examined this morning, continues to be in atrial fibrillation, her heart rate this morning is in the 1 teens to 120 range. She is currently on amiodarone 400 mg by mouth twice a day which we will continue at that dose. Her blood pressures 95/60 which does not give as much room to increase her beta jil at this time. She continues to have significant rhonchi, and coughs consistently. White blood cell count 13.6, hemoglobin 13.1, platelet count 393. Sodium 1:30, potassium 4.8, BUN 82 and creatinine 8.02. 01/19/2019 She was seen and examined this morning, she was complaining of feeling very constipated, and appeared to be more short of breath today. On examination she was quite diminished on the left. She states she did not sleep well through the night last night. Her heart rate overall is much better today, we'll continue the 400 mg of amiodarone. Blood pressure 98/60 with a heart rate in the 90s, 93% on 2 L of oxygen. Objective - Vital Signs Vital signs: Vital Signs Temp 97.7 F 01/19/19 12:21 Pulse 103 H 01/19/19 12:21 Resp 20 01/19/19 12:21 BP 98/63 01/19/19 12:21 Pulse Ox 93 L 01/19/19 12:21 Intake & Output 01/18/19 01/19/19 01/19/19 18:59 06:59 18:59 Intake Total 410 240 Output Total 0 0 Balance 410 0 240 Weight 53 kg Intake: Oral 410 240 Output: Urine 0 0 Other: Voiding Method Incontinent Incontinent Incontinent CAPD CAPD CAPD # Voids 0 # Bowel Movements 1 1 1 - Exam HEAD: Normocephalic/atraumatic. EYES: Normal reaction of pupils, equal size. Conjunctiva pink, sclera white. NOSE: Clear with pink turbinates. THROAT: No erythema or exudates. NECK: No masses, no JVD, no thyroid enlargement, no adenopathy. CHEST: No chest wall deformity. Symmetrical expansion. LUNGS: Diminished air entry on the left with minimal end expiratory wheezes CVS: Regular rate and rhythm, normal S1 and S2, no gallops, no murmurs, no rubs ABDOMEN: Soft, nontender. No hepatosplenomegaly, normal bowel sounds, no guarding or rigidity. Peritoneal dialysis is present covered with dressing EXTREMITIES: No clubbing, no edema, no cyanosis, 2+ pulses and upper and lower e xtremities. MUSCULOSKELETAL: Muscle strength and tone normal. SPINE: No scoliosis or deformity SKIN: No rashes CENTRAL NERVOUS SYSTEM: Alert and oriented -3. No focal deficits, tone is normal in all 4 extremities. PSYCHIATRIC: Alert and oriented -3. Appropriate affect. Intact judgment and insight. - Labs CBC & Chem 7: 01/18/19 05:34 01/18/19 05:34 Labs: Abnormal Lab Results - Last 24 Hours (Table) 01/18/19 01/18/19 01/19/19 Range/Units 17:03 21:02 11:51 POC Glucose (mg/dL) 169 H 351 H 155 H (75-99) mg/dL Assessment and Plan Plan: Assessment: #1. Acute hypercapnic respiratory failure with tachycardia and hypotension, multifactorial, in part related to underlying chronic obstructive pulmonary disease exacerbation as well as A. fib with RVR, both conditions have significantly improved, patient is no longer requiring supplemental oxygen. Doubt pulmonary embolism #2. History of end-stage renal disease, on peritoneal dialysis #3. Chronic obstructive pulmonary disease, secondary to chronic tobacco use #4. History of gastroesophageal reflux disease #5. History of chronic atrial fibrillation on anticoagulation with Eliquis #6. Previous history of heavy tobacco use, currently in remission #7. History of hypertension #8. Prior history of cerebrovascular accident #9. History of syncopal episodes #10. Degenerative joint disease #11. Multiple previous surgeries Plan Continue the amiodarone at 400 mg, obtain chest x-ray. DNP note has been reviewed, I agree with a documented findings and plan of care. Patient was seen and examined.
[2019-01-19 18:45] LABS: Appearance,BF Clear; Color,BF Colorless; Nucleated Cells, Body Fluid 1 /uL; RBC, Body Fluid 4 /uL
== END 2019-01-19 15:18 | DRG 177 ==
LOC: EC 16:21 → 3SCARD 18:42 → OBSVTOIN 01-09 16:28 → 4MS4W 01-09 21:55 → 2SICU 01-12 12:21 → 3SCARD 01-16 18:39
PROVIDERS: ADMIT Hospitalist; ATTEND Hospitalist
DX: J15.6 Pneumonia due to other Gram-negative bacteria (principal); E43 Unspecified severe protein-calorie malnutrition; J96.01 Acute respiratory failure with hypoxia; J96.02 Acute respiratory failure with hypercapnia; N18.6 End stage renal disease; J81.0 Acute pulmonary edema; J44.0 Chronic obstructive pulmonary disease with (acute) lower respiratory infection; E87.1 Hypo-osmolality and hyponatremia; E87.2 Acidosis; I13.2 Hypertensive heart and chronic kidney disease with heart failure and with stage 5 chronic kidney disease, or end stage renal disease; J44.1 Chronic obstructive pulmonary disease with (acute) exacerbation; I42.9 Cardiomyopathy, unspecified; I48.1 Persistent atrial fibrillation; I50.32 Chronic diastolic (congestive) heart failure; Z68.1 Body mass index [BMI] 19.9 or less, adult; D63.1 Anemia in chronic kidney disease; E78.5 Hyperlipidemia, unspecified; F41.9 Anxiety disorder, unspecified; I27.29 Other secondary pulmonary hypertension; I48.0 Paroxysmal atrial fibrillation; Z86.73 Personal history of transient ischemic attack (TIA), and cerebral infarction without residual deficits; I70.1 Atherosclerosis of renal artery; K21.9 Gastro-esophageal reflux disease without esophagitis; K59.00 Constipation, unspecified; M06.9 Rheumatoid arthritis, unspecified; M19.90 Unspecified osteoarthritis, unspecified site; M89.8X9 Other specified disorders of bone, unspecified site; T38.0X5A Adverse effect of glucocorticoids and synthetic analogues, initial encounter; Z91.81 History of falling; Z72.0 Tobacco use; Z79.01 Long term (current) use of anticoagulants; Z79.52 Long term (current) use of systemic steroids; Z79.899 Other long term (current) drug therapy; Z82.49 Family history of ischemic heart disease and other diseases of the circulatory system; Z87.01 Personal history of pneumonia (recurrent); Z99.2 Dependence on renal dialysis; I95.9 Hypotension, unspecified
CPT/HCPCS: 36415; 71045; 71046; 78582; 80048; 80053; 83605; 83735; 83880; 84100; 84484; 85025; 85379; 85610; 85730; 87070; 87205; 89050; 93005; 94640; 94760; 96365; 99285

== ENCOUNTER 2019-01-27 13:44 | Inpatient (IN) | payer MEDICARE, BC ==
[2019-01-27] MEDS ORDERED: IPRATROPIUM-ALBUTEROL 3 ML NEB INHALATION STA (14:11)
--- NOTE | 2019-01-27 14:14 | ED ---
General Adult HPI - General Chief complaint: Shortness of Breath Stated complaint: Dyspnea Time Seen by Provider: 01/27/19 14:05 Source: patient, EMS, RN notes reviewed Mode of arrival: EMS Limitations: no limitations - History of Present Illness Initial comments: Patient is a pleasant 73-year-old female presenting to the emergency Department with complaints of difficulty in breathing. Onset of symptoms was a couple of days ago. Patient is a poor historian. Patient does complain of cough and dyspnea. No leg pain or leg swelling. No chest pain. Patient feels somewhat fatigued. No Fevers. - Related Data Home Medications Medication Instructions Recorded Confirmed Omeprazole [PriLOSEC] 20 mg PO DAILY 12/28/18 01/27/19 ALPRAZolam [Xanax] 0.25 mg PO TID PRN 01/27/19 01/27/19 Acetaminophen [Tylenol] 650 mg PO Q6H PRN 01/27/19 01/27/19 Apixaban [Eliquis] 2.5 mg PO BID 01/27/19 01/27/19 Budesonide [Pulmicort] 0.5 mg INHALATION RT-BID 01/27/19 01/27/19 Ipratropium-Albuterol Nebulize 3 ml INHALATION RT-TID 01/27/19 01/27/19 [Duoneb 0.5 mg-3 mg/3 ml Soln] Previous Rx's Medication Instructions Recorded Amiodarone [Cordarone] 200 mg PO TID tab 01/10/19 Metoprolol Tartrate [Lopressor] 75 mg PO BID tab 01/10/19 Sodium Bicarbonate Tab 650 mg PO BID tab 01/10/19 Allergies Allergy/AdvReac Type Severity Reaction Status Date / Time No Known Allergies Allergy Verified 01/27/19 14:34 Review of Systems ROS Statement: Those systems with pertinent positive or pertinent negative responses have been documented in the HPI. ROS Other: All systems not noted in ROS Statement are negative. Constitutional: Denies: fever Eyes: Denies: eye pain ENT: Denies: ear pain Respiratory: Reports: cough, dyspnea Cardiovascular: Denies: chest pain Endocrine: Reports: fatigue Gastrointestinal: Denies: abdominal pain Genitourinary: Denies: dysuria Musculoskeletal: Denies: back pain Skin: Denies: rash Neurological: Denies: weakness Past Medical History Past Medical History: Atrial Fibrillation, Asthma, Heart Failure, COPD, CVA/TIA, Hypertension, Osteoarthritis (OA), Pneumonia, Renal Disease, Syncope Additional Past Medical History / Comment(s): CVA 2005, ESRD, Dialysis cath inserted 02-02-18 gets dialysis . History of Any Multi-Drug Resistant Organisms: None Reported Past Surgical History: Tonsillectomy Additional Past Surgical History / Comment(s): ORIF rt ankle-[address], IUD removal, lumbar steroid injections, dental implants, cardioversion, dialysis cath. has ocl on l wrist, states fell 1 1/2 month ago and has a hairline fracture of wrist Past Anesthesia/Blood Transfusion Reactions: No Reported Reaction Additional Past Anesthesia/Blood Transfusion Reaction / Comment(s): Past blood transfusions - no reaction Past Psychological History: Anxiety Smoking Status: Former smoker Past Alcohol Use History: None Reported Past Drug Use History: None Reported - Past Family History Mother Family Medical History: No Reported History Additional Family Medical History / Comment(s): Mother in her 80s from abdominal aortic aneurysm. Father Family Medical History: Myocardial Infarction (MD) Additional Family Medical History / Comment(s): Father at age 52 from acute MD. General Exam Limitations: no limitations General appearance: alert, in no apparent distress Head exam: Present: atraumatic Eye exam: Present: normal appearance, PERRL ENT exam: Present: normal oropharynx Neck exam: Present: normal inspection Respiratory exam: Present: wheezes, rales Cardiovascular Exam: Present: tachycardia, irregular rhythm GI/Abdominal exam: Present: soft. Absent: tenderness Extremities exam: Present: normal inspection. Absent: pedal edema, calf tenderness Neurological exam: Present: alert Psychiatric exam: Present: normal affect, normal mood Skin exam: Present: normal color Course Vital Signs 01/27/19 01/27/19 01/27/19 13:50 13:54 14:15 Temperature 98.1 F Pulse Rate 101 H 105 H Respiratory 33 H 33 H Rate Blood Pressure 152/117 O2 Sat by Pulse 98 Oximetry 01/27/19 14:26 Temperature Pulse Rate 107 H Respiratory Rate Blood Pressure O2 Sat by Pulse Oximetry EKG Findings - EKG Comments: EKG Findings:: A. fib with rate of 107. QRS 118. QT 376. QTc 501. Normal axis. Nonspecific intraventricular conduction delay. There is some lateral ST depression. Medical Decision Making - Medical Decision Making Patient reevaluated and only somewhat improved. Patient has been on peritoneal dialysis for several months now. Patient only makes limited urine, couple times per week. Patient and family updated. Dr. Mccoy has been paged again for admission. - Lab Data Result diagrams: 01/27/19 14:10 01/27/19 14:10 Lab Results 01/27/19 01/27/19 01/27/19 Range/Units 14:10 14:10 14:10 WBC 14.3 H (3.8-10.6) k/uL RBC 3.52 L (3.80-5.40) m/uL Hgb 11.3 L (11.4-16.0) gm/dL Hct 35.1 (34.0-46.0) % MCV 99.8 (80.0-100.0) fL MCH 32.2 (25.0-35.0) pg MCHC 32.3 (31.0-37.0) g/dL RDW 16.4 H (11.5-15.5) % Plt Count 406 (150-450) k/uL Neutrophils % 93 % Lymphocytes % 2 % Monocytes % 4 % Eosinophils % 1 % Basophils % 0 % Neutrophils # 13.2 H (1.3-7.7) k/uL Lymphocytes # 0.3 L (1.0-4.8) k/uL Monocytes # 0.5 (0-1.0) k/uL Eosinophils # 0.1 (0-0.7) k/uL Basophils # 0.1 (0-0.2) k/uL Anisocytosis Slight Macrocytosis Slight PT (9.0-12.0) sec INR (<1.2) APTT (22.0-30.0) sec Sodium 134 L (137-145) mmol/L Potassium 5.3 H (3.5-5.1) mmol/L Chloride 88 L (98-107) mmol/L Carbon Dioxide 24 (22-30) mmol/L Anion Gap 22 mmol/L BUN 96 H (7-17) mg/dL Creatinine 9.73 H* (0.52-1.04) mg/dL Est GFR (CKD-EPI)AfAm 4 (>60 ml/min/1.73 sqM) Est GFR (CKD-EPI)NonAf 4 (>60 ml/min/1.73 sqM) Glucose 144 H (74-99) mg/dL Calcium 9.4 (8.4-10.2) mg/dL Total Bilirubin 0.6 (0.2-1.3) mg/dL AST 24 (14-36) U/L ALT 21 (9-52) U/L Alkaline Phosphatase 73 (38-126) U/L Troponin I (0.000-0.034) ng/mL NT-Pro-B Natriuret Pep >751239 pg/mL Total Protein 6.6 (6.3-8.2) g/dL Albumin 3.7 (3.5-5.0) g/dL 01/27/19 01/27/19 Range/Units 14:10 14:10 WBC (3.8-10.6) k/uL RBC (3.80-5.40) m/uL Hgb (11.4-16.0) gm/dL Hct (34.0-46.0) % MCV (80.0-100.0) fL MCH (25.0-35.0) pg MCHC (31.0-37.0) g/dL RDW (11.5-15.5) % Plt Count (150-450) k/uL Neutrophils % % Lymphocytes % % Monocytes % % Eosinophils % % Basophils % % Neutrophils # (1.3-7.7) k/uL Lymphocytes # (1.0-4.8) k/uL Monocytes # (0-1.0) k/uL Eosinophils # (0-0.7) k/uL Basophils # (0-0.2) k/uL Anisocytosis Macrocytosis PT 10.8 (9.0-12.0) sec INR 1.0 (<1.2) APTT 26.9 (22.0-30.0) sec Sodium (137-145) mmol/L Potassium (3.5-5.1) mmol/L Chloride (98-107) mmol/L Carbon Dioxide (22-30) mmol/L Anion Gap mmol/L BUN (7-17) mg/dL Creatinine (0.52-1.04) mg/dL Est GFR (CKD-EPI)AfAm (>60 ml/min/1.73 sqM) Est GFR (CKD-EPI)NonAf (>60 ml/min/1.73 sqM) Glucose (74-99) mg/dL Calcium (8.4-10.2) mg/dL Total Bilirubin (0.2-1.3) mg/dL AST (14-36) U/L ALT (9-52) U/L Alkaline Phosphatase (38-126) U/L Troponin I 0.111 H* (0.000-0.034) ng/mL NT-Pro-B Natriuret Pep pg/mL Total Protein (6.3-8.2) g/dL Albumin (3.5-5.0) g/dL - Radiology Data Radiology results: image reviewed (Chest x-ray shows chronic changes and cardiomegaly.) Disposition Clinical Impression: CHF (congestive heart failure), Acute exacerbation of chronic obstructive airways disease, ESRD (end stage renal disease) Disposition: ADMITTED IP TO THIS [facility] Condition: Serious Is patient prescribed a controlled substance at d/c from ED?: No Referrals: Irving Latham MD [Primary Care Provider] - 1-2 days Decision Time: 17:04
[2019-01-27 14:35] LABS: Anisocytosis Slight; Basophils # (A) 0.1 k/uL (0-0.2); Basophils % (A) 0 %; Eosinophils # (A) 0.1 k/uL (0-0.7); Eosinophils % (A) 1 %; HCT 35.1 % (34.0-46.0); HGB 11.3 gm/dL (11.4-16.0); Lymphocytes # (A) 0.3 k/uL (1.0-4.8); Lymphocytes % (A) 2 %; MCH 32.2 pg (25.0-35.0); MCHC 32.3 g/dL (31.0-37.0); MCV 99.8 fL (80.0-100.0); Macrocytosis Slight; Monocytes # (A) 0.5 k/uL (0-1.0); Monocytes % (A) 4 %; Neutrophils # (A) 13.2 k/uL (1.3-7.7); Neutrophils % (A) 93 %; Platelet Count 406 k/uL (150-450); RBC 3.52 m/uL (3.80-5.40); RDW 16.4 % (11.5-15.5); WBC 14.3 k/uL (3.8-10.6)
[2019-01-27 14:43] LABS: Partial Thromboplastin Time 26.9 sec (22.0-30.0); Prothrombin Time 10.8 sec (9.0-12.0)
[2019-01-27 14:44] LABS: Albumin 3.7 g/dL (3.5-5.0); Calcium 9.4 mg/dL (8.4-10.2); Potassium 5.3 mmol/L (3.5-5.1); Total Bilirubin 0.6 mg/dL (0.2-1.3); Total Protein 6.6 g/dL (6.3-8.2)
--- NOTE | 2019-01-27 15:18 | XR ---
EXAMINATION TYPE: XR chest 2V DATE OF EXAM: 01/27/2019 COMPARISON: Chest x-ray 8 days ago. HISTORY: History of atrial fibrillation and COPD with shortness of breath TECHNIQUE: Frontal and lateral views of the chest are obtained. FINDINGS: Elevated right hemidiaphragm is now identified. There is background chronic emphysematous c hange. There is no focal air space opacity, pleural effusion, or pneumothorax seen. The cardiac silh ouette size remains enlarged with atherosclerotic aorta. The osseous structures are demineralized. IMPRESSION: Chronic emphysematous change and cardiomegaly without new suspicious focal infiltrate. D iminished inspiration on current study with elevated right hemidiaphragm now identified.
[2019-01-27] MEDS ORDERED: NITROGLYCERIN-D5W PMX 50 MG in DEXTROSE/WATER 1 250ML.BAG IV ONE (17:02)
[2019-01-27] MEDS ORDERED: ENALAPRILAT 1.25 MG/ML 1 ML VIAL IVP STA (17:03)
[2019-01-27] MEDS ORDERED: ALPRAZolam 0.25 MG TAB PO PRN (17:11)
[2019-01-27] MEDS ORDERED: ACETAMINOPHEN TAB 325 MG TAB PO PRN (17:11)
--- NOTE | 2019-01-27 18:57 | XR ---
EXAMINATION TYPE: XR abdomen 1V DATE OF EXAM: 01/27/2019 COMPARISON: None HISTORY: Check catheter placement TECHNIQUE: 2 views supine FINDINGS: There is some tubing over the right side of the abdomen. There is uncertain location. There is a coil of tubing over the left sacroiliac joint. There is atherosclerotic vascular calcification. Bowel gas pattern is nonacute. Lung bases are clear. IMPRESSION: Tubing in uncertain location. Nonacute abdomen.
[2019-01-27] MEDS ORDERED: DIALYSIS (PERIT 4.25%) 2000 ML 85 G/2,000 ML BAG INTRAPERIT SCH (19:00)
[2019-01-27] MEDS: BUDESONIDE 0.5 MG/2 ML NEBU INHALATION SCH (19:08)
[2019-01-27] MEDS: IPRATROPIUM-ALBUTEROL 3 ML NEB INHALATION SCH (19:08)
[2019-01-27] MEDS: AMIODARONE 200 MG TAB PO SCH (21:31)
[2019-01-27] MEDS: APIXABAN 2.5 MG TABLET PO SCH (21:31)
[2019-01-27] MEDS: METOPROLOL TARTRATE 50 MG TAB PO SCH (21:31)
[2019-01-27] MEDS: SODIUM BICARBONATE TAB 650 MG TAB PO SCH (21:31)
[2019-01-27 23:00] LABS: Glucose,Whole Blood 151 mg/dL (75-99)
[2019-01-28] MEDS ORDERED: guaiFENesin 600 MG TABLET.ER PO PRN (01:06)
[2019-01-28 01:48] LABS: Anisocytosis Slight; Basophils # (A) 0.1 k/uL (0-0.2); Basophils % (A) 0 %; Eosinophils # (A) 0.1 k/uL (0-0.7); Eosinophils % (A) 1 %; HCT 31.2 % (34.0-46.0); HGB 10.1 gm/dL (11.4-16.0); Lymphocytes # (A) 0.5 k/uL (1.0-4.8); Lymphocytes % (A) 4 %; MCH 32.3 pg (25.0-35.0); MCHC 32.5 g/dL (31.0-37.0); MCV 99.6 fL (80.0-100.0); Macrocytosis Slight; Mean Platelet Volume 8.1; Monocytes # (A) 0.6 k/uL (0-1.0); Monocytes % (A) 5 %; Neutrophils # (A) 9.3 k/uL (1.3-7.7); Neutrophils % (A) 87 %; Platelet Count 362 k/uL (150-450); RBC 3.13 m/uL (3.80-5.40); RDW 16.4 % (11.5-15.5); WBC 10.7 k/uL (3.8-10.6)
[2019-01-28 01:59] LABS: Albumin 3.5 g/dL (3.5-5.0); Calcium 8.9 mg/dL (8.4-10.2); Magnesium 1.6 mg/dL (1.6-2.3); Phosphorus 8.5 mg/dL (2.5-4.5); Potassium 4.8 mmol/L (3.5-5.1); Total Bilirubin 0.5 mg/dL (0.2-1.3); Total Protein 6.6 g/dL (6.3-8.2)
[2019-01-28] MEDS: DIALYSIS (PERIT 4.25%) 2000 ML 85 G/2,000 ML BAG INTRAPERIT SCH ×2 (03:44→09:28)
[2019-01-28 07:06] LABS: Glucose,Whole Blood 99 mg/dL (75-99)
[2019-01-28] MEDS: IPRATROPIUM-ALBUTEROL 3 ML NEB INHALATION SCH ×3 (07:17→18:47)
[2019-01-28] MEDS: BUDESONIDE 0.5 MG/2 ML NEBU INHALATION SCH ×2 (07:17→18:47)
[2019-01-28] MEDS ORDERED: PANTOPRAZOLE 40 MG TABLET PO SCH (07:30)
[2019-01-28] MEDS: APIXABAN 2.5 MG TABLET PO SCH (08:55)
[2019-01-28] MEDS: AMIODARONE 200 MG TAB PO SCH ×2 (08:56→17:38)
[2019-01-28] MEDS: SODIUM BICARBONATE TAB 650 MG TAB PO SCH ×2 (08:56→20:06)
[2019-01-28] MEDS: METOPROLOL TARTRATE 50 MG TAB PO SCH ×2 (08:56→20:05)
[2019-01-28] MEDS ORDERED: DIALYSIS (PERITONL) DEX 4.25% 2,000 ML INTRAPERIT SCH ×2 (09:00→15:00)
--- NOTE | 2019-01-28 09:18 | XR ---
EXAMINATION TYPE: XR chest 1V portable DATE OF EXAM: 01/28/2019 COMPARISON: 01/27/2019 HISTORY: Congestive heart failure and shortness of breath TECHNIQUE: Single frontal view of the chest is obtained. FINDINGS: Vague patchy opacity in the right upper lobe appears improved from the prior of 01/27/2019 and overall alignment. Interstitial prominence is minimal and unchanged. Cardiomediastinal silhouette is mildly enlarged. Diffuse osseous demineralization is seen. No sizable pleural effusion or pneumot horax. Slight right hemidiaphragm elevation is chronic. IMPRESSION: Chronic changes with no acute cardiopulmonary process.
[2019-01-28 09:53] LABS: ABG Base Excess 0.8 mmol/L; ABG HCO3 25 mmol/L (21-25); ABG Oxygen Saturation 97.6 % (94-97); ABG PCO2 38 mmHg (35-45); ABG PH 7.43 (7.35-7.45); ABG PO2 181 mmHg (83-108); ABG TCO2 26 mmol/L (19-24); Allen Test Performed? Yes
[2019-01-28] MEDS: methylPREDNISolone SOD SUCCI 40 MG/ML 1 ML VIAL IV SCH ×2 (10:49→17:38)
--- NOTE | 2019-01-28 10:59 | CONS ---
CONSULTATION The patient's medical records as well as old charts reviewed. The patient is known to us from the previous admission. She is a 73-year-old female who came to the emergency room with a complaint of difficulty in breathing. The patient has been having these symptoms for a couple of days. She is a rather poor historian. She has been having some non-productive cough. Denied any fever or chills or denied any chest pain. This patient has a history of persistent atrial fibrillation and history of end-stage renal disease and she is on peritoneal dialysis. During the previous admission, patient's echocardiogram as well revealed normal left ventricular systolic function. PAST MEDICAL HISTORY: Patient's past medical history includes atrial fibrillation, congestive heart failure, COPD, hypertension, osteoarthritis, end-stage renal dialysis, and lumbar steroid injection. PHYSICAL EXAMINATION: Physical examination at present reveals a 73-year-old female who is lying comfortably in the bed. In the emergency room, patient's heart rate was 100 to 105, respiratory rate was 30 to 35, and blood pressure was elevated. At present, the patient's heart rate is 90 to 100 per minute, blood pressure is 116/50 mmHg. Head/ENT examination is negative. Neck is supple. No significant increase in jugular venous pressure noted. First and second heart sounds are noted. Lungs examination revealed bilateral diminished air entry. Abdomen is soft. EXTREMITIES: There is no evidence of any leg edema. The patient's chest x-ray shows no significant left ventricular failure. Blood gases reveal pH of 7.43, pCO2 is 38, pO2 is 181. Hemoglobin is 10.1. The patient's creatinine is 9.6. ProBNP level is more than 350,000. FINAL IMPRESSION: This patient is admitted with symptoms of shortness of breath which is most likely secondary to acute exacerbation of underlying chronic obstructive pulmonary disease. The patient may have underlying some fluid overload. The patient's proBNP is always elevated and which is due to the patient's end-stage renal disease and it is unreliable for estimation of any left ventricular failure. The patient has a normal left ventricular systolic function. At present, the patient remains in atrial fibrillation with a controlled rate. We will continue the current medications. MMODL / IJN: [id number] /
--- NOTE | 2019-01-28 11:41 | P.CNPUL ---
History of Present Illness Consult date: 01/28/19 Requesting physician: Paco Mccoy Reason for consult: other (Critical care management) Chief complaint: Shortness of breath History of present illness: This is a pleasant 73-year-old female patient who follows with Dr. Latham as her primary care physician. She has a history of atrial fibrillation anticoagulated with Eliquis, congestive heart failure preserved systolic function ejection fraction 50-55%, end-stage renal disease on peritoneal dialysis, hypertension, CVA/TIA him a previous smoking history and chronic obstructive pulmonary disease. She was brought into the emergency room yesterday from an extended care facility with complaints of shortness of breath over the past several days. His chest x-ray shows evidence of chronic changes but no acute cardiopulmonary process. Abdominal x-ray revealed nonacute abdomen. White count 10.7. Hemoglobin 10.1. Sodium 132. Creatinine 9.61. ProBNP greater than 350,000. Troponin 0.111. Arterial blood gases on 44% FiO2 revealed a pO2 of 181, pCO2 38, pH 7.43. She is currently maintaining O2 saturations up to 100% on 2 L/m per nasal cannula. She's afebrile. Atrial fibrillation, tachycardic in the 110s. She is seen today in the intensive care unit. She was transferred here from the selective care unit due to nitroglycerin drip requirements which is currently at 10 mcg/m. Awake and alert in no acute distress. She is somewhat weak and fatigued. She receiving peritoneal dialysis. 3.1 L removed yesterday. Review of Systems REVIEW OF SYSTEMS: CONSTITUTIONAL: Denies any recent significant weight loss or weight gain. EYES: Denies change in vision. EARS, NOSE, MOUTH, THROAT: Denies headaches, denies sore throat. CARDIOVASCULAR: Denies chest pain, palpitations or syncopal episodes. RESPIRATORY: Positive for shortness of breath, cough, congestion no hemoptysis. GASTROINTESTINAL: Denies change in appetite, denies abdominal pain GENITOURINARY: Denies hematuria, denies infections. MUSKULOSKELETAL: Denies pain, denies swelling. INTEGUMENTARY: Denies rash, denies eczema. NEUROLOGICAL: Positive for memory loss, no recent seizure activity. PSYCHIATRIC: Denies anxiety, denies depression. HEMATOLOGIC/LYMPHATIC: Positive anemia, denies enlarged lymph nodes. s Past Medical History Past Medical History: Atrial Fibrillation, Asthma, Heart Failure, COPD, CVA/TIA, Hypertension, Osteoarthritis (OA), Pneumonia, Renal Disease, Syncope Additional Past Medical History / Comment(s): CVA 2005, ESRD, Dialysis cath inserted 02-02-18 gets dialysis . History of Any Multi-Drug Resistant Organisms: None Reported Past Surgical History: Tonsillectomy Additional Past Surgical History / Comment(s): ORIF rt ankle-[address], IUD removal, lumbar steroid injections, dental implants, cardioversion, dialysis cath. has ocl on l wrist, states fell 1 1/2 month ago and has a hairline fracture of wrist Past Anesthesia/Blood Transfusion Reactions: No Reported Reaction Additional Past Anesthesia/Blood Transfusion Reaction / Comment(s): Past blood transfusions - no reaction Past Psychological History: Anxiety Smoking Status: Former smoker Past Alcohol Use History: None Reported Additional Past Alcohol Use History / Comment(s): Patient smoked one and half packs of cigarettes per day started in 1973 and quit 2007. Patient used to drink heavily-none now Past Drug Use History: None Reported - Past Family History Mother Family Medical History: No Reported History Additional Family Medical History / Comment(s): Mother in her 80s from abdominal aortic aneurysm. Father Family Medical History: Myocardial Infarction ([place]) Additional Family Medical History / Comment(s): Father at age 52 from acute [place]. Medications and Allergies Home Medications Medication Instructions Recorded Confirmed Type Omeprazole [PriLOSEC] 20 mg PO DAILY 12/28/18 01/27/19 History Amiodarone [Cordarone] 200 mg PO TID tab 01/10/19 01/27/19 Rx Metoprolol Tartrate [Lopressor] 75 mg PO BID tab 01/10/19 01/27/19 Rx Sodium Bicarbonate Tab 650 mg PO BID tab 01/10/19 01/27/19 Rx ALPRAZolam [Xanax] 0.25 mg PO TID PRN 01/27/19 01/27/19 History Acetaminophen [Tylenol] 650 mg PO Q6H PRN 01/27/19 01/27/19 History Apixaban [Eliquis] 2.5 mg PO BID 01/27/19 01/27/19 History Budesonide [Pulmicort] 0.5 mg INHALATION RT-BID 01/27/19 01/27/19 History Ipratropium-Albuterol Nebulize 3 ml INHALATION RT-TID 01/27/19 01/27/19 History [Duoneb 0.5 mg-3 mg/3 ml Soln] Allergies Allergy/AdvReac Type Severity Reaction Status Date / Time No Known Allergies Allergy Verified 01/27/19 14:34 Physical Exam Vitals: Vital Signs Temp Pulse Pulse Resp BP BP Pulse Ox 01/28/19 11:00 112 H 116/100 99 01/28/19 10:00 107 H 15 85/68 100 01/28/19 09:00 97.6 F 105 H 13 116/97 99 01/28/19 08:00 97.6 F 111 H 13 105/83 98 01/28/19 07:37 108 H 01/28/19 07:17 101 H 01/28/19 07:00 109 H 12 117/86 99 01/28/19 06:00 93 16 119/90 99 01/28/19 05:00 96 14 104/86 99 01/28/19 04:00 98.8 F 106 H 17 114/103 98 01/28/19 03:00 98.4 F 103 H 19 124/93 98 01/28/19 02:00 107 H 26 H 129/85 99 01/28/19 01:00 103 H 24 121/87 94 L 01/28/19 00:00 98.7 F 104 H 20 102/86 82 L 01/27/19 23:04 109 H 23 88 L 01/27/19 20:45 98.9 F 109 H 20 124/84 99 01/27/19 20:00 98.4 F 88 21 95/70 132/79 95 01/27/19 19:29 90 18 103/79 97 01/27/19 19:28 112 H 01/27/19 19:09 98 94 L 01/27/19 19:00 120 H 19 142/100 100 01/27/19 18:35 115 H 18 142/100 100 01/27/19 18:05 121 H 28 H 131/86 01/27/19 18:00 137 H 18 140/89 01/27/19 17:30 115 H 18 157/107 01/27/19 17:00 116 H 20 160/105 01/27/19 16:30 105 H 19 146/111 01/27/19 16:00 111 H 17 148/118 01/27/19 15:30 93 16 147/106 01/27/19 15:00 93 17 145/104 84 L 01/27/19 14:30 97 18 134/110 98 01/27/19 14:26 107 H 01/27/19 14:15 105 H 01/27/19 14:00 98 18 156/108 99 01/27/19 13:54 98.1 F 101 H 33 H 152/117 98 01/27/19 13:50 33 H Intake and Output 01/27/19 01/28/19 01/28/19 22:59 06:59 14:59 Intake Total 110 122.3 Output Total 0 0 Balance 110 122.3 Intake: IV 110 30 0.9 110 30 Intake, IV Titration 92.3 Amount Nitroglycerin-D5w Pmx 50 92.3 mg In Dextrose/Water 1 250ml.bag @ 20 MCG/MIN 6 mls/hr IV .Q24H ONE Rx#: [id number] Output: Urine 0 0 Other: Voiding Method CAPD CAPD Weight 57.7 kg GENERAL EXAM: Alert, pleasant weak 73-year-old female, comfortable in no apparent distress. HEAD: Normocephalic. EYES: Normal reaction of pupils, equal size. NOSE: Clear with pink turbinates. THROAT: No erythema or exudates. NECK: No masses, no JVD. CHEST: No chest wall deformity. LUNGS: Equal air entry with an expiratory wheeze, crackles in the bases, diminished CVS: S1 and S2 normal with no audible murmur, irregular rhythm. ABDOMEN: Peritoneal catheter secured in place No hepatosplenomegaly, normal bowel sounds, no guarding or rigidity. SPINE: No scoliosis or deformity SKIN: No rashes CENTRAL NERVOUS SYSTEM: No focal deficits, tone is normal in all 4 extremities. EXTREMITIES: There is no peripheral edema. No clubbing, no cyanosis. Peripheral pulses are intact. Results - Laboratory Findings CBC and BMP: 01/28/19 01:42 01/28/19 01:42 ABG ABG pH 7.43 (7.35-7.45) 01/28/19 09:42 ABG pCO2 38 mmHg (35-45) 01/28/19 09:42 ABG pO2 181 mmHg (83-108) H 01/28/19 09:42 ABG O2 Saturation 97.6 % (94-97) H 01/28/19 09:42 PT/INR, D-dimer PT 10.8 sec (9.0-12.0) 01/27/19 14:10 INR 1.0 (<1.2) 01/27/19 14:10 Abnormal lab findings: Abnormal Labs 01/27/19 01/27/19 01/27/19 14:10 14:10 14:10 WBC 14.3 H RBC 3.52 L Hgb 11.3 L Hct RDW 16.4 H Neutrophils # 13.2 H Lymphocytes # 0.3 L ABG pO2 ABG Total CO2 ABG O2 Saturation Sodium 134 L Potassium 5.3 H Chloride 88 L BUN 96 H Creatinine 9.73 H* Glucose 144 H POC Glucose (mg/dL) Phosphorus Troponin I 0.111 H* 01/27/19 01/28/19 01/28/19 22:57 01:42 01:42 WBC 10.7 H RBC 3.13 L Hgb 10.1 L Hct 31.2 L RDW 16.4 H Neutrophils # 9.3 H Lymphocytes # 0.5 L ABG pO2 ABG Total CO2 ABG O2 Saturation Sodium 132 L Potassium Chloride 87 L BUN 94 H Creatinine 9.61 H* Glucose 107 H POC Glucose (mg/dL) 151 H Phosphorus 8.5 H Troponin I 01/28/19 09:42 WBC RBC Hgb Hct RDW Neutrophils # Lymphocytes # ABG pO2 181 H ABG Total CO2 26 H ABG O2 Saturation 97.6 H Sodium Potassium Chloride BUN Creatinine Glucose POC Glucose (mg/dL) Phosphorus Troponin I - Diagnostic Findings Chest x-ray: image reviewed Assessment and Plan Assessment: Impression: #1 Acute exacerbation of chronic obstructive pulmonary disease. FEV1 value of 42% of predicted. #2 Acute exacerbation of diastolic congestive heart failure. Her grafts #3 Hype rtension requiring nitroglycerin drip. #4 Chronic atrial fibrillation, anticoagulated with Eliquis. #5 History of pseudotumor the right lung. #6 End-stage renal disease secondary to nephrosclerosis currently receiving peritoneal dialysis. #7 Rheumatoid arthritis. #8 Previous CVA/TIA. #9 History of chronic tobacco dependence. #10 Hyperlipidemia. #11 Chronic anemia. Plan: The patient was seen and evaluated by Dr. Talbot. Chest x-ray and labs reviewed. We'll discontinue the nitroglycerin drip. Add IV Solu-Medrol and DuoNeb inhalations. ABGs were obtained and reviewed. We will continue to follow and make further recommendations based on her clinical status. I, the cosigning physician, performed a history & physical examination of the patient. Lungs sounds bilateral end expiratory wheeze, crackles in the posterior bases. Maintaining good O2 saturations in the 90s on 2 L/m per nasal cannula. I discussed the assessment and plan of care with my nurse practitioner, Shakila Munson. I attest to the above consultation as dictated by her. Time with Patient: Greater than 30
--- NOTE | 2019-01-28 12:35 | CT ---
EXAMINATION TYPE: CT brain wo con DATE OF EXAM: 01/28/2019 HISTORY: Altered mental status CT DLP: 1024.4 mGycm. Automated Exposure Control for Dose Reduction was Utilized. TECHNIQUE: CT scan of the head is performed without contrast. COMPARISON: Outside CT head May 31, 2018. FINDINGS: There is new hyperdense focus right cerebellar hemisphere axial image 13. There is diffus e ventricular and sulcal prominence consistent with diffuse age-related cerebral atrophy. There is m arked low-attenuation in the periventricular white matter consistent with chronic small vessel ischem ic change. Area of encephalomalacia high right frontal lobe redemonstrated anteriorly. The globes ar e intact and the visualized sinuses are clear. Vascular calcification distal internal carotid arter ies is redemonstrated bilaterally. IMPRESSION: There is new small 7 mm focus of acute intraparenchymal hemorrhage right mid cerebellar h emisphere axial image 13. No midline shift is seen. There is background [id number] diffuse cere bral atrophy and fairly advanced chronic small vessel ischemic change with old right frontal lobe inf arct are redemonstrated. Critical results communicated to patient's ICU nurse Leonardo via telephone at time of dictation.
[2019-01-28 13:01] VITALS: BMI 21.8
--- NOTE | 2019-01-28 13:47 | P.HPIM ---
History of Present Illness H&P Date: 01/28/19 Chief Complaint: Shortness of breath, change in mental status This is a 73-year-old female patient of Dr. Latham residing at [facility] with past medical history of atrial fibrillation on eliquis, chronic diastolic heart failure, end-stage renal disease on CAPD, hypertension, COPD, history of tobacco use and dependence and quit in 2007, history of alcohol abuse, CVA in 2005. Patient was brought into [facility] emergency [facility] for evaluation of difficulty breathing that had been going on for a couple of days. Patient also had cough. No chest pain, no lower extremity edema. No fever or chills. There is also concern for mental status changes. Patient was unable to provide any history. Her mental status was waxing and waning. Patient was afebrile, blood pressure 152/117, heart rate 105, respiratory rate 33, pulse ox 98%. EKG was A. fib at rate of 107. WBC 14.3, hemoglobin 11.3. Sodium 134, potassium 5.3, chloride 88, CO2 24, BUN 96, creatinine 9.73, blood sugar 144. ProBNP was greater than 350,000. Liver function tests within normal limits. Troponin 0.111. Chest x-ray revealed chronic emphysematous change and cardiomegaly without new suspicious infiltrate. Diminished inspiration. 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 She was seen this morning in the intensive care unit. Patient is minimal responsive to verbal stimuli. CAT scan ordered yesterday is being done this morning. CAT scan of the brain without contrast revealed 7 mm focus of acute intraparenchymal hemorrhage right mid cerebellar hemisphere. No midline shift. Background mild to moderate diffuse cerebral atrophy and advanced chronic small vessel ischemic change with old right frontal lobe infarct. Discussed results with the patient and her at the bedside. Her would like her transferred to [facility]. Case management is making arrangements. Review of Systems ROS unobtainable: due to mental status Past Medical History Past Medical History: Atrial Fibrillation, Asthma, Heart Failure, COPD, CVA/TIA, Hypertension, Osteoarthritis (OA), Pneumonia, Renal Disease, Syncope Additional Past Medical History / Comment(s): CVA 2005, ESRD, Dialysis cath inserted 02-02-18 gets dialysis . History of Any Multi-Drug Resistant Organisms: None Reported Past Surgical History: Tonsillectomy Additional Past Surgical History / Comment(s): ORIF rt ankle-[address], IUD removal, lumbar steroid injections, dental implants, cardioversion, dialysis cath. has ocl on l wrist, states fell 1 1/2 month ago and has a hairline fracture of wrist Past Anesthesia/Blood Transfusion Reactions: No Reported Reaction Additional Past Anesthesia/Blood Transfusion Reaction / Comment(s): Past blood transfusions - no reaction Past Psychological History: Anxiety Smoking Status: Former smoker Past Alcohol Use History: None Reported Additional Past Alcohol Use History / Comment(s): Patient smoked one and half packs of cigarettes per day started in 1973 and quit 2007. Patient used to drink heavily-none now Past Drug Use History: None Reported - Past Family History Mother Family Medical History: No Reported History Additional Family Medical History / Comment(s): Mother in her 80s from abdominal aortic aneurysm. Father Family Medical History: Myocardial Infarction ([place]) Additional Family Medical History / Comment(s): Father at age 52 from acute [place]. Medications and Allergies Home Medications Medication Instructions Recorded Confirmed Type Omeprazole [PriLOSEC] 20 mg PO DAILY 12/28/18 01/27/19 History Amiodarone [Cordarone] 200 mg PO TID tab 01/10/19 01/27/19 Rx Metoprolol Tartrate [Lopressor] 75 mg PO BID tab 01/10/19 01/27/19 Rx Sodium Bicarbonate Tab 650 mg PO BID tab 01/10/19 01/27/19 Rx ALPRAZolam [Xanax] 0.25 mg PO TID PRN 01/27/19 01/27/19 History Acetaminophen [Tylenol] 650 mg PO Q6H PRN 01/27/19 01/27/19 History Apixaban [Eliquis] 2.5 mg PO BID 01/27/19 01/27/19 History Budesonide [Pulmicort] 0.5 mg INHALATION RT-BID 01/27/19 01/27/19 History Ipratropium-Albuterol Nebulize 3 ml INHALATION RT-TID 01/27/19 01/27/19 History [Duoneb 0.5 mg-3 mg/3 ml Soln] Allergies Allergy/AdvReac Type Severity Reaction Status Date / Time No Known Allergies Allergy Verified 01/27/19 14:34 Physical Exam Vitals: Vital Signs Temp Pulse Pulse Resp BP BP Pulse Ox 01/28/19 09:00 101 H 17 102/74 99 01/28/19 08:00 97.6 F 111 H 13 105/83 98 01/28/19 07:37 108 H 01/28/19 07:17 101 H 01/28/19 07:00 109 H 12 117/86 99 01/28/19 06:00 93 16 119/90 99 01/28/19 05:00 96 14 104/86 99 01/28/19 04:00 98.8 F 106 H 17 114/103 98 01/28/19 03:00 98.4 F 103 H 19 124/93 98 01/28/19 02:00 107 H 26 H 129/85 99 01/28/19 01:00 103 H 24 121/87 94 L 01/28/19 00:00 98.7 F 104 H 20 102/86 82 L 01/27/19 23:04 109 H 23 88 L 01/27/19 20:45 98.9 F 109 H 20 124/84 99 01/27/19 20:00 98.4 F 88 21 95/70 132/79 95 01/27/19 19:29 90 18 103/79 97 01/27/19 19:28 112 H 01/27/19 19:09 98 94 L 01/27/19 19:00 120 H 19 142/100 100 01/27/19 18:35 115 H 18 142/100 100 01/27/19 18:05 121 H 28 H 131/86 01/27/19 18:00 137 H 18 140/89 01/27/19 17:30 115 H 18 157/107 01/27/19 17:00 116 H 20 160/105 01/27/19 16:30 105 H 19 146/111 01/27/19 16:00 111 H 17 148/118 01/27/19 15:30 93 16 147/106 01/27/19 15:00 93 17 145/104 84 L 01/27/19 14:30 97 18 134/110 98 01/27/19 14:26 107 H 01/27/19 14:15 105 H 01/27/19 14:00 98 18 156/108 99 01/27/19 13:54 98.1 F 101 H 33 H 152/117 98 01/27/19 13:50 33 H Intake and Output 01/27/19 01/28/19 01/28/19 22:59 06:59 14:59 Intake Total 110 112.3 Output Total 0 0 Balance 110 112.3 Intake: IV 110 20 0.9 110 20 Intake, IV Titration 92.3 Amount Nitroglycerin-D5w Pmx 50 92.3 mg In Dextrose/Water 1 250ml.bag @ 20 MCG/MIN 6 mls/hr IV .Q24H ONE Rx#: [id number] Output: Urine 0 0 Other: Voiding Method CAPD Weight 57.7 kg Gen: This is within 73-year-old female. Patient is in the ICU bed appears in no acute distress. HEENT: Head is atraumatic, normocephalic. Pupils equal, round. Sclerae is a nicteric. NECK: Supple. No JVD. No lymphadenopathy. No thyromegaly. LUNGS: Diminished breath sounds with scattered rhonchi. No intercostal retractions. HEART: Irreggular rate and rhythm. Systolic murmur. ABDOMEN: Soft. Bowel sounds are present. No masses. No tenderness. Peritoneal catheter in place. EXTREMITIES: No pedal edema. No calf tenderness. Dorsalis pedis palpable. NEUROLOGICAL: Patient is lethargic. Patient barely opens eyes to verbal stimuli. Patient unable to follow commands. Results CBC & Chem 7: 01/28/19 01:42 01/28/19 01:42 Labs: Abnormal Lab Results - Last 24 Hours (Table) 01/27/19 01/27/19 01/27/19 Range/Units 14:10 14:10 14:10 WBC 14.3 H (3.8-10.6) k/uL RBC 3.52 L (3.80-5.40) m/uL Hgb 11.3 L (11.4-16.0) gm/dL Hct (34.0-46.0) % RDW 16.4 H (11.5-15.5) % Neutrophils # 13.2 H (1.3-7.7) k/uL Lymphocytes # 0.3 L (1.0-4.8) k/uL Sodium 134 L (137-145) mmol/L Potassium 5.3 H (3.5-5.1) mmol/L Chloride 88 L (98-107) mmol/L BUN 96 H (7-17) mg/dL Creatinine 9.73 H* (0.52-1.04) mg/dL Glucose 144 H (74-99) mg/dL POC Glucose (mg/dL) (75-99) mg/dL Phosphorus (2.5-4.5) mg/dL Troponin I 0.111 H* (0.000-0.034) ng/mL 01/27/19 01/28/19 01/28/19 Range/Units 22:57 01:42 01:42 WBC 10.7 H (3.8-10.6) k/uL RBC 3.13 L (3.80-5.40) m/uL Hgb 10.1 L (11.4-16.0) gm/dL Hct 31.2 L (34.0-46.0) % RDW 16.4 H (11.5-15.5) % Neutrophils # 9.3 H (1.3-7.7) k/uL Lymphocytes # 0.5 L (1.0-4.8) k/uL Sodium 132 L (137-145) mmol/L Potassium (3.5-5.1) mmol/L Chloride 87 L (98-107) mmol/L BUN 94 H (7-17) mg/dL Creatinine 9.61 H* (0.52-1.04) mg/dL Glucose 107 H (74-99) mg/dL POC Glucose (mg/dL) 151 H (75-99) mg/dL Phosphorus 8.5 H (2.5-4.5) mg/dL Troponin I (0.000-0.034) ng/mL Thrombosis Risk Factor Assmnt - DVT/VTE Prophylaxis DVT/VTE Prophylaxis: Pharmacologic Prophylaxis ordered Assessment and Plan Plan: 1. Acute cerebellar bleed. Discussed results of CAT scan of the brain with patient's and patient will be transferred to [facility]. Case management is making arrangements. 2. Acute exacerbation of COPD. Dr. Chao on consult. Continue DuoNeb treatments, Pulmicort, Solu-Medrol, Mucinex. 3. Chronic diastolic heart failure. Continue CAPD. 4. End-stage renal disease on CAPD. Nephrology consult. Continue CAPD per nephrology, sodium bicarb 5. Chronic atrial fibrillation. Continue amiodarone 200 mg 3 times daily, Lopressor 75 mg twice daily. 6. History of CVA in 2005. 7. Gastroesophageal reflux disease. Continue Protonix. 8. Generalized anxiety disorder. 9. DVT prophylaxis. Eliquis will be placed on hold due to bleed. Patient will be admitted to the hospital for a minimum of 2 night stay. Discharge plan: Transfer to [facility] Impression and plan of care have been directed as dictated by the signing physician. Holly Mancia nurse practitioner acting as scribe for signing physician.
[2019-01-28] MEDS ORDERED: DIALYSIS (PERIT 2.5%) 2,000 ML 50 G/2,000 ML BAG INTRAPERIT SCH (15:00)
[2019-01-28 20:10] VITALS: BP 139/96; PULSE 128; RESP 17; TEMP 98
--- NOTE | 2019-01-28 20:54 | CONS ---
CONSULTATION REASON FOR CONSULT: End-stage renal disease. HISTORY OF PRESENT ILLNESS: Patient is a 73-year-old female who was admitted to the hospital with complaints of shortness of breath. She is maintained on peritoneal dialysis, and it looks like the staff at [facility] had trouble with her peritoneal dialysis. However, since admission patient has been doing well with good ultrafiltration for almost about 3 L with the last exchange. Patient was volume-overloaded; therefore she was maintained on 4.25% exchanges q.6 hours. This morning she states she is feeling much better. No complaints of chest pain. Blood pressure was quite high on initial admission. It is currently improved with systolic around 115 mm of Hg. No fevers or chills or abdominal pain. PAST MEDICAL HISTORY: 1. End-stage renal disease, on peritoneal dialysis. 2. Severe bilateral renal artery stenosis. 3. Anemia of chronic disease. 4. CKD mineral bone disorder. 5. History of atrial fibrillation. 6. COPD. 7. History of CVA with no significant residual weakness. PAST SURGICAL HISTORY: 1. Tonsillectomy. 2. ORIF right ankle. 3. IUD removal. 4. Lumbar injections. 5. Dental implants. 6. Cardioversion. 7. Dialysis catheter placement and removal. 8. PD catheter placement. SOCIAL HISTORY: Patient is a former smoker. No history of drug abuse or alcohol abuse. MEDICATIONS: Medications prior to admission included: 1. Megace. 2. Prilosec. 3. Cordarone. 4. Eliquis. 5. Pulmicort. 6. Lopressor. ALLERGIES: NONE. PHYSICAL EXAMINATION: Patient is comfortable, awake, alert, oriented x3. She is not in any acute distress. Blood pressure this morning was 117/80, heart rate 111 per minute. She is afebrile. EXAMINATION OF THE HEART: S1 and S2. EXAMINATION OF LUNGS: Bilateral breath sounds are heard. ABDOMEN: Soft, non-tender, distended. Examination of lower extremities shows no evidence of edema. 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 LABS: Hemoglobin 10.1, white cell count of 10.7, sodium 132, potassium 4.8, BUN 94, serum creatinine 9.6, troponin 0.11. ASSESSMENT: 1. End-stage renal disease, on peritoneal dialysis. Continue PD. I will change the PD fluid to 2.5% solutions q.6 hours. Patient has had significant ultrafiltration with the 4.25% solutions. 2. Possible malfunction of the peritoneal dialysis catheter. Currently working very well. Patient received heparin in her initial bag and since then she has done fairly well. 3. Volume overload, now improved. 4. Hypertension associated with severe bilateral renal artery stenosis and volume overload, currently improved. Blood pressure is slightly on the lower side. Patient is currently off ZO inhibitors, which can be restarted if her blood pressure climbs up. 5. Chronic obstructive pulmonary disease, currently stable. PLAN: Change PD fluid to 2.5% solution q.6 hours. Monitor blood pressure. MMODL / IJN: [id number] /
== END 2019-01-28 20:49 | disposition short-term general hospital (02) | DRG 64 ==
LOC: EC 13:44 → 3SCARD 17:09 → 2SICU 22:52
PROVIDERS: ADMIT Internal Medicine Geriatric Medicine; ATTEND Internal Medicine Geriatric Medicine
PROC: 3E1M39Z Irrigation of Peritoneal Cavity using Dialysate, Percutaneous Approach (ICD-10-PCS; principal; 2019-01-27)
DX: I61.4 Nontraumatic intracerebral hemorrhage in cerebellum (principal); N18.6 End stage renal disease; I13.2 Hypertensive heart and chronic kidney disease with heart failure and with stage 5 chronic kidney disease, or end stage renal disease; J44.1 Chronic obstructive pulmonary disease with (acute) exacerbation; I48.1 Persistent atrial fibrillation; I50.32 Chronic diastolic (congestive) heart failure; D63.8 Anemia in other chronic diseases classified elsewhere; E78.5 Hyperlipidemia, unspecified; F41.1 Generalized anxiety disorder; R40.2363 Coma scale, best motor response, obeys commands, at hospital admission; R40.2143 Coma scale, eyes open, spontaneous, at hospital admission; R40.2243 Coma scale, best verbal response, confused conversation, at hospital admission; I70.1 Atherosclerosis of renal artery; M06.9 Rheumatoid arthritis, unspecified; K21.9 Gastro-esophageal reflux disease without esophagitis; M89.9 Disorder of bone, unspecified; Z79.01 Long term (current) use of anticoagulants; Z79.899 Other long term (current) drug therapy; Z82.49 Family history of ischemic heart disease and other diseases of the circulatory system; Z87.891 Personal history of nicotine dependence; Z86.73 Personal history of transient ischemic attack (TIA), and cerebral infarction without residual deficits; Z99.2 Dependence on renal dialysis
CPT/HCPCS: 36415; 36600; 70450; 71045; 71046; 74018; 80053; 82805; 83735; 83880; 84100; 84484; 85025; 85610; 85730; 93005; 94640; 96365; 99285

== ENCOUNTER 2019-02-21 19:37 | Inpatient (IN) | payer MEDICARE, BC ==
--- NOTE | 2019-02-21 19:47 | ED ---
Altered Mental Status HPI - General Stated Complaint: Altered Mental Status Time Seen by Provider: 02/21/19 19:43 Source: RN notes reviewed, old records reviewed Mode of arrival: EMS Limitations: altered mental status, physical limitation - History of Present Illness Initial Comments: This is a 73-year-old female the ER for evaluation. Patient presents with significant altered mental status. Unknown history surrounding current event tonight. Patient comes from metal lodged her she normally is demented but does have interaction with both patient's other patient's and staff. Patient was my significant unresponsive today for EMS report, patient is unable to give history currently. EMS history is lacking. Unknown patient became unresponsive issues currently. Oxygen was significantly low at facility as well as during transport as well as here in the ER. Patient is arousable to stimuli, painful. MD Complaint: altered mental status, decreased responsiveness, weakness -: unknown Severity: severe Consistency of Symptoms: getting worse, constant Context: history of similar presentation, other (Patient is a dialysis patient to receive a half for dialysis today unknown why she was unable to complete) Treatments Prior to Arrival: oxygen - Related Data Home Medications Medication Instructions Recorded Confirmed Omeprazole [PriLOSEC] 20 mg PO DAILY 12/28/18 02/21/19 ALPRAZolam [Xanax] 0.25 mg PO Q8H PRN 01/27/19 02/21/19 Ipratropium-Albuterol Nebulize 3 ml INHALATION RT-Q4H 01/27/19 02/21/19 [Duoneb 0.5 mg-3 mg/3 ml Soln] Acetaminophen [Tylenol Arthritis] 650 mg PO TID 02/21/19 02/21/19 Budesonide/Formoterol Fumarate 2 puff INHALATION RT-BID 02/21/19 02/21/19 [Symbicort 160-4.5 Mcg Inhaler] Calcium Acetate [Phoslo] 667 mg PO AC-TID 02/21/19 02/21/19 Gentamicin 0.1% Cream 1 applic TOPICAL TID 02/21/19 02/21/19 Melatonin 1 mg PO HS 02/21/19 02/21/19 Metoprolol Tartrate [Lopressor] 100 mg PO BID 02/21/19 02/21/19 Previous Rx's Medication Instructions Recorded Amiodarone [Cordarone] 200 mg PO TID tab 01/10/19 Allergies Allergy/AdvReac Type Severity Reaction Status Date / Time No Known Allergies Allergy Verified 02/21/19 20:50 Review of Systems ROS Statement: Those systems with pertinent positive or pertinent negative responses have been documented in the HPI. ROS Other: All systems not noted in ROS Statement are negative. Past Medical History Past Medical History: Atrial Fibrillation, Asthma, Heart Failure, COPD, CVA/TIA, Hypertension, Osteoarthritis (OA), Pneumonia, Renal Disease, Syncope Additional Past Medical History / Comment(s): CVA 2005, ESRD, Dialysis cath inserted 02-02-18 gets dialysis . History of Any Multi-Drug Resistant Organisms: None Reported Past Surgical History: Tonsillectomy Additional Past Surgical History / Comment(s): ORIF rt ankle-[address], IUD removal, lumbar steroid injections, dental implants, cardioversion, dialysis cath. has ocl on l wrist, states fell 1 1/2 month ago and has a hairline fracture of wrist Past Anesthesia/Blood Transfusion Reactions: No Reported Reaction Additional Past Anesthesia/Blood Transfusion Reaction / Comment(s): Past blood transfusions - no reaction Past Psychological History: Anxiety Smoking Status: Former smoker Past Alcohol Use History: None Reported Additional Past Alcohol Use History / Comment(s): Patient smoked one and half packs of cigarettes per day started in 1973 and quit 2007. Patient used to drink heavily-none now Past Drug Use History: None Reported - Past Family History Mother Family Medical History: No Reported History Additional Family Medical History / Comment(s): Mother in her 80s from abdominal aortic aneurysm. Father Family Medical History: Myocardial Infarction ([place]) Additional Family Medical History / Comment(s): Father at age 52 from acute [place]. General Exam Limitations: altered mental status General appearance: alert, lethargic Head exam: Present: atraumatic, normocephalic, normal inspection Eye exam: Present: normal appearance, EOMI. Absent: scleral icterus, conjunctival injection, periorbital swelling ENT exam: Present: normal exam, mucous membranes moist Neck exam: Present: normal inspection. Absent: tenderness, meningismus, lymphadenopathy Respiratory exam: Present: normal lung sounds bilaterally. Absent: respiratory distress, wheezes, rales, rhonchi, stridor Cardiovascular Exam: Present: regular rate, normal rhythm, normal heart sounds. Absent: systolic murmur, diastolic murmur, rubs, gallop, clicks GI/Abdominal exam: Present: soft, normal bowel sounds. Absent: distended, tenderness, guarding, rebound, rigid Extremities exam: Present: normal inspection, full ROM, normal capillary refill. Absent: tenderness, pedal edema, joint swelling, calf tenderness Back exam: Present: normal inspection Neurological exam: Present: alert, oriented X3, CN II-XII intact Psychiatric exam: Present: normal affect, normal mood Skin exam: Present: warm, dry, intact, normal color. Absent: rash Course Vital Signs 02/21/19 02/21/19 02/21/19 19:45 20:04 20:09 Temperature 98.6 F Pulse Rate 86 86 81 Respiratory 18 18 12 Rate Blood Pressure 102/32 81/48 80/28 O2 Sat by Pulse 100 96 97 Oximetry 02/21/19 02/21/19 02/21/19 20:25 20:29 20:30 Temperature Pulse Rate 81 80 Respiratory 14 12 14 Rate Blood Pressure 132/55 91/71 O2 Sat by Pulse 96 98 Oximetry 02/21/19 02/21/19 02/21/19 20:35 20:50 20:55 Temperature Pulse Rate 80 84 78 Respiratory 15 15 16 Rate Blood Pressure 87/61 113/69 123/69 O2 Sat by Pulse 98 98 98 Oximetry 02/21/19 02/21/19 02/21/19 21:00 21:15 21:30 Temperature Pulse Rate 72 78 82 Respiratory 16 16 16 Rate Blood Pressure 117/69 112/67 110/70 O2 Sat by Pulse 98 98 98 Oximetry 02/21/19 02/21/19 02/21/19 21:41 21:45 22:15 Temperature 98.6 F Pulse Rate 81 81 Respiratory 18 16 Rate Blood Pressure 109/68 107/65 O2 Sat by Pulse 98 98 Oximetry 02/21/19 22:43 Temperature 97.8 F Pulse Rate 86 Respiratory 18 Rate Blood Pressure 87/65 O2 Sat by Pulse 98 Oximetry - Reevaluation(s) Reevaluation #1: 02/21/19 19:47 Medical records reviewed - Consultations Consultation #1: Spoke with Dr. Mccoy who is okay for admission, spoke with Dr. Pineda is okay for ICU admission Procedures - Central Line Placement Right IJ Consent Obtained: verbal consent Patient Placed on Monitor/Pulse Ox: Yes Prep: mask, gown, gloves Central Line Prep: Chlorhexidine scrub, sterile drapes applied Local Anesthesia Used: Lidocaine 1% Ultrasound Used for Placement: Yes Central Line Lumen Inserted: triple Bloods Obtained for Lab: Yes Central Line Position: good blood return, all ports aspirated, flushed, capped Dressing Applied: Tegaderm Post Procedure X-Ray: tip of catheter in good position Patient Tolerated Procedure: well Complications: none Medical Decision Making - Medical Decision Making 73 female here to ER for evaluation patient coming in severe distress hypotension and hypoxia. Symptoms improved with conservative management and supportive care IV hydration and supplemental oxygen. Central line placed for possible blood pressure medications, patient will be admitted to ICU - Lab Data Result diagrams: 02/22/19 04:20 02/22/19 04:20 Lab Results 02/21/19 02/21/19 02/21/19 Range/Units 20:00 20:00 20:00 WBC 15.1 H (3.8-10.6) k/uL RBC 4.04 (3.80-5.40) m/uL Hgb 13.2 D (11.4-16.0) gm/dL Hct 40.0 (34.0-46.0) % MCV 99.1 (80.0-100.0) fL MCH 32.6 (25.0-35.0) pg MCHC 32.9 (31.0-37.0) g/dL RDW 15.1 (11.5-15.5) % Plt Count 336 (150-450) k/uL Neutrophils % 87 % Lymphocytes % 5 % Monocytes % 5 % Eosinophils % 0 % Basophils % 1 % Neutrophils # 13.2 H (1.3-7.7) k/uL Lymphocytes # 0.8 L (1.0-4.8) k/uL Monocytes # 0.8 (0-1.0) k/uL Eosinophils # 0.1 (0-0.7) k/uL Basophils # 0.2 (0-0.2) k/uL Macrocytosis Slight PT (9.0-12.0) sec INR (<1.2) APTT (22.0-30.0) sec Sodium 128 L (137-145) mmol/L Potassium 5.6 H (3.5-5.1) mmol/L Chloride 87 L (98-107) mmol/L Carbon Dioxide 17 L (22-30) mmol/L Anion Gap 24 mmol/L BUN 70 H (7-17) mg/dL Creatinine 7.27 H* (0.52-1.04) mg/dL Est GFR (CKD-EPI)AfAm 6 (>60 ml/min/1.73 sqM) Est GFR (CKD-EPI)NonAf 5 (>60 ml/min/1.73 sqM) Glucose 191 H (74-99) mg/dL Lactic Ac Sepsis Rflx Plasma Lactic Acid Erich 4.5 H* (0.7-2.0) mmol/L Calcium 9.0 (8.4-10.2) mg/dL Phosphorus 7.3 H (2.5-4.5) mg/dL Magnesium 1.9 (1.6-2.3) mg/dL Total Bilirubin 0.8 (0.2-1.3) mg/dL AST 49 H (14-36) U/L ALT 43 (9-52) U/L Alkaline Phosphatase 121 (38-126) U/L Ammonia <9 (<30) umol/L Creatine Kinase 44 (30-135) U/L Troponin I (0.000-0.034) ng/mL NT-Pro-B Natriuret Pep pg/mL Total Protein 7.2 (6.3-8.2) g/dL Albumin 3.9 (3.5-5.0) g/dL 02/21/19 02/21/19 02/21/19 Range/Units 20:00 20:00 20:00 WBC (3.8-10.6) k/uL RBC (3.80-5.40) m/uL Hgb (11.4-16.0) gm/dL Hct (34.0-46.0) % MCV (80.0-100.0) fL MCH (25.0-35.0) pg MCHC (31.0-37.0) g/dL RDW (11.5-15.5) % Plt Count (150-450) k/uL Neutrophils % % Lymphocytes % % Monocytes % % Eosinophils % % Basophils % % Neutrophils # (1.3-7.7) k/uL Lymphocytes # (1.0-4.8) k/uL Monocytes # (0-1.0) k/uL Eosinophils # (0-0.7) k/uL Basophils # (0-0.2) k/uL Macrocytosis PT 10.7 (9.0-12.0) sec INR 1.0 (<1.2) APTT 21.9 L (22.0-30.0) sec Sodium (137-145) mmol/L Potassium (3.5-5.1) mmol/L Chloride (98-107) mmol/L Carbon Dioxide (22-30) mmol/L Anion Gap mmol/L BUN (7-17) mg/dL Creatinine (0.52-1.04) mg/dL Est GFR (CKD-EPI)AfAm (>60 ml/min/1.73 sqM) Est GFR (CKD-EPI)NonAf (>60 ml/min/1.73 sqM) Glucose (74-99) mg/dL Lactic Ac Sepsis Rflx Plasma Lactic Acid Erich (0.7-2.0) mmol/L Calcium (8.4-10.2) mg/dL Phosphorus (2.5-4.5) mg/dL Magnesium (1.6-2.3) mg/dL Total Bilirubin (0.2-1.3) mg/dL AST (14-36) U/L ALT (9-52) U/L Alkaline Phosphatase (38-126) U/L Ammonia (<30) umol/L Creatine Kinase (30-135) U/L Troponin I 0.358 H* (0.000-0.034) ng/mL NT-Pro-B Natriuret Pep 650659 pg/mL Total Protein (6.3-8.2) g/dL Albumin (3.5-5.0) g/dL 02/21/19 Range/Units 20:37 WBC (3.8-10.6) k/uL RBC (3.80-5.40) m/uL Hgb (11.4-16.0) gm/dL Hct (34.0-46.0) % MCV (80.0-100.0) fL MCH (25.0-35.0) pg MCHC (31.0-37.0) g/dL RDW (11.5-15.5) % Plt Count (150-450) k/uL Neutrophils % % Lymphocytes % % Monocytes % % Eosinophils % % Basophils % % Neutrophils # (1.3-7.7) k/uL Lymphocytes # (1.0-4.8) k/uL Monocytes # (0-1.0) k/uL Eosinophils # (0-0.7) k/uL Basophils # (0-0.2) k/uL Macrocytosis PT (9.0-12.0) sec INR (<1.2) APTT (22.0-30.0) sec Sodium (137-145) mmol/L Potassium (3.5-5.1) mmol/L Chloride (98-107) mmol/L Carbon Dioxide (22-30) mmol/L Anion Gap mmol/L BUN (7-17) mg/dL Creatinine (0.52-1.04) mg/dL Est GFR (CKD-EPI)AfAm (>60 ml/min/1.73 sqM) Est GFR (CKD-EPI)NonAf (>60 ml/min/1.73 sqM) Glucose (74-99) mg/dL Lactic Ac Sepsis Rflx Y Plasma Lactic Acid Erich (0.7-2.0) mmol/L Calcium (8.4-10.2) mg/dL Phosphorus (2.5-4.5) mg/dL Magnesium (1.6-2.3) mg/dL Total Bilirubin (0.2-1.3) mg/dL AST (14-36) U/L ALT (9-52) U/L Alkaline Phosphatase (38-126) U/L Ammonia (<30) umol/L Creatine Kinase (30-135) U/L Troponin I (0.000-0.034) ng/mL NT-Pro-B Natriuret Pep pg/mL Total Protein (6.3-8.2) g/dL Albumin (3.5-5.0) g/dL - EKG Data -: EKG Interpreted by Me (EKG shows a flutter rate of 87, LA 126, QRS 126, QTc 507) - Radiology Data Radiology results: report reviewed (CT brain chest x-rays negative for acute disease), image reviewed Critical Care Time Critical Care Time: Yes Total Critical Care Time: 31 Disposition Clinical Impression: Altered mental status, Weakness, Shock, CHF (congestive heart failure), Hyponatremia, Chronic renal failure, COPD (chronic obstructive pulmonary disease), Acute respiratory failure with hypoxia, NSTEMI (non-ST elevated myocardial infarction) Disposition: ADMITTED IP TO THIS HOSP Condition: Fair Is patient prescribed a controlled substance at d/c from ED?: No
[2019-02-21] MEDS ORDERED: NALOXONE 0.4 MG/ML 10 ML VIAL IVP STA (20:05)
[2019-02-21 20:17] LABS: Basophils # (A) 0.2 k/uL (0-0.2); Basophils % (A) 1 %; Eosinophils # (A) 0.1 k/uL (0-0.7); Eosinophils % (A) 0 %; Lymphocytes # (A) 0.8 k/uL (1.0-4.8); Lymphocytes % (A) 5 %; MCH 32.6 pg (25.0-35.0); MCHC 32.9 g/dL (31.0-37.0); MCV 99.1 fL (80.0-100.0); Macrocytosis Slight; Mean Platelet Volume 6.7; Monocytes # (A) 0.8 k/uL (0-1.0); Monocytes % (A) 5 %; Neutrophils # (A) 13.2 k/uL (1.3-7.7); Neutrophils % (A) 87 %; Platelet Count 336 k/uL (150-450); RBC 4.04 m/uL (3.80-5.40); RDW 15.1 % (11.5-15.5); WBC 15.1 k/uL (3.8-10.6)
[2019-02-21 20:22] LABS: HGB 13.2 gm/dL (11.4-16.0)
[2019-02-21 20:24] LABS: Albumin 3.9 g/dL (3.5-5.0); Ammonia <9 umol/L (<30); Magnesium 1.9 mg/dL (1.6-2.3); Phosphorus 7.3 mg/dL (2.5-4.5); Potassium 5.6 mmol/L (3.5-5.1); Total Bilirubin 0.8 mg/dL (0.2-1.3); Total Protein 7.2 g/dL (6.3-8.2)
[2019-02-21 20:30] LABS: Partial Thromboplastin Time 21.9 sec (22.0-30.0); Prothrombin Time 10.7 sec (9.0-12.0)
[2019-02-21] MEDS ORDERED: methylPREDNISolone SOD SUCCI 125 MG/2 ML VIAL IV STA (20:35)
--- NOTE | 2019-02-21 20:35 | XR ---
EXAMINATION TYPE: XR chest 2V DATE OF EXAM: 02/21/2019 COMPARISON: 01/28/2019 HISTORY: Altered mental status TECHNIQUE: Frontal and lateral views of the chest are obtained. FINDINGS: There is no heart failure nor confluent pneumonic infiltrate. Thoracic aorta shows mild at heromatous change. There are no hilar masses. There is no pleural effusion. There is osteopenia. IMPRESSION: No active cardiopulmonary disease. No change.
[2019-02-21 20:37] LABS: Lactic Acid, Venous 4.5 mmol/L (0.7-2.0)
--- NOTE | 2019-02-21 20:41 | CT ---
EXAMINATION TYPE: CT brain wo con DATE OF EXAM: 02/21/2019 COMPARISON: 01/28/2019 HISTORY: Pt came in w/weakness, AMS. Extensive cardiac hx. COPD/Asthma CT DLP: 1142.4 mGycm Automated exposure control for dose reduction was used. FINDINGS: There is cerebral cortical atrophy. There is moderate patchy hypodensity in the periventricular white matter. There is no mass effect nor midline shift. There is no sign of intracranial hemorrhage. Ther e is cortical hypodensity right parietal lobe. The calvarium appears intact. I see no bony destructiv e process. Skull base is intact. IMPRESSION: CEREBRAL ATROPHY AND CHRONIC SMALL VESSEL ISCHEMIA. OLD RIGHT PARIETAL CORTICAL INFARCT. NO ACUTE ABN ORMALITY. NO CHANGE.
[2019-02-21] MEDS ORDERED: NALOXONE 0.4 MG/ML 1 ML VIAL IV PRN (20:46)
[2019-02-21] MEDS: DEXTROSE 5%-0.45% NACL 1,000 ML IV SCH (22:41)
[2019-02-21] MEDS ORDERED: ALPRAZolam 0.25 MG TAB PO PRN (23:10)
[2019-02-21 23:23] LABS: Glucose,Whole Blood 122 mg/dL (75-99)
[2019-02-22] MEDS: IPRATROPIUM-ALBUTEROL 3 ML NEB INHALATION SCH ×10 (00:18→20:20)
[2019-02-22] MEDS: methylPREDNISolone SOD SUCCI 125 MG/2 ML VIAL IV SCH ×2 (00:28→06:44)
[2019-02-22] MEDS: DIALYSIS (PERIT 1.5%) 2,500 ML 37.5 G/2,500 ML BAG INTRAPERIT SCH ×2 (00:59→12:18)
[2019-02-22 04:35] LABS: Basophils # (A) 0.1 k/uL (0-0.2); Basophils % (A) 1 %; Eosinophils % (A) 0 %; HCT 34.1 % (34.0-46.0); HGB 10.6 gm/dL (11.4-16.0); Lymphocytes # (A) 0.3 k/uL (1.0-4.8); Lymphocytes % (A) 1 %; MCH 31.4 pg (25.0-35.0); MCHC 31.1 g/dL (31.0-37.0); MCV 101.1 fL (80.0-100.0); Macrocytosis Slight; Mean Platelet Volume 7.2; Monocytes # (A) 0.7 k/uL (0-1.0); Monocytes % (A) 4 %; Neutrophils # (A) 18.1 k/uL (1.3-7.7); Neutrophils % (A) 94 %; Platelet Count 307 k/uL (150-450); RBC 3.37 m/uL (3.80-5.40); RDW 15.6 % (11.5-15.5); WBC 19.3 k/uL (3.8-10.6)
[2019-02-22 04:45] LABS: Albumin 3.1 g/dL (3.5-5.0); Calcium 8.1 mg/dL (8.4-10.2); Magnesium 1.5 mg/dL (1.6-2.3); Phosphorus 5.1 mg/dL (2.5-4.5); Total Bilirubin 0.4 mg/dL (0.2-1.3); Total Protein 5.9 g/dL (6.3-8.2)
[2019-02-22] MEDS: DIALYSIS (PERIT 2.5%) 2,500 ML 62.5 G/2,500 ML BAG INTRAPERIT SCH ×2 (06:25→18:22)
[2019-02-22 06:43] LABS: Glucose,Whole Blood 162 mg/dL (75-99)
[2019-02-22] MEDS: CALCIUM ACETATE 667 MG CAP PO SCH ×3 (06:44→17:53)
[2019-02-22] MEDS: SYMBICORT 160-4.5 MCG INHALER INHALATION SCH ×2 (07:14→20:14)
--- NOTE | 2019-02-22 08:21 | CONS ---
CONSULTATION PULMONARY/CRITICAL CARE CONSULTATION: DATE OF CONSULTATION: February 22, 2019 REASON FOR CONSULTATION: ICU management, mental status changes and hypotension. This is a 73-year-old female who is a resident at [facility] on the [facility]. She apparently presented to the emergency room via EMS with significant altered mental status. Not much history surrounding the current events. I did speak to the ER physician yesterday. She apparently just had declining mental status throughout the day and maybe even for a day or 2. She was apparently unresponsive according to the EMS. She was unable to give any history. She apparently got to the emergency room, where she was placed on oxygen therapy. Her saturations were apparently low on transport. She received fluids in the ER and a central line and she seemed to perk up according to the ER physician. Anyway, she is currently pretty awake and alert. She is not receiving any supplemental oxygen. Her IV is D5W with half-normal saline at 80 mL an hours. She was admitted to the hospital on the . The patient does have history of renal failure for which she does q.6 hour peritoneal dialysis. Again, currently the patient is awake and alert. No particular complaints. We did talk about code status. She does know what it means to be on life support. She clearly does not want to be on the mechanical ventilator and those orders are placed. MEDICATIONS: Her home medications are reviewed. They include Prilosec, Xanax, Tylenol, Eliquis, Pulmicort and updrafts with DuoNeb. She is also apparently on Cordarone, Lopressor, and sodium bicarbonate tablets. ALLERGIES: Allergies are denied. MEDICAL HISTORY: Medical history is positive for atrial fibrillation, COPD/asthma, heart failure, hypertension, CVA, DJD, pneumonia, chronic renal failure requiring peritoneal dialysis, and syncope. Her CVA apparently occurred in 2005. She also apparently was previously on hemodialysis on Thursday, , Thursday. SURGICAL HISTORY: Surgical history includes tonsillectomy, ORIF right ankle, IUD removal, lumbar steroid injections, dental implants, cardioversion, previous placement of dialysis catheter, wrist fracture. SOCIAL HISTORY: Positive for previous tobacco use. Does not smoke currently. No alcohol use. No illicit drug use. Her additional social history includes 34 years of tobacco use. She quit in 2007. She used to drink heavily, but does not drink currently. FAMILY HISTORY: Family history is positive for mother who in her 80s from abdominal aortic aneurysm. Father apparently at a relatively early age from acute myocardial infarction. REVIEW OF SYSTEMS: CONSTITUTIONAL: Negative. NEUROLOGIC: Negative. HEENT: Negative. CARDIOVASCULAR: Negative. PULMONARY: Negative. GI: Negative. : Negative. RHEUMATOLOGIC: Negative. IMMUNOLOGIC: Negative. ENDOCRINOLOGIC: Negative. Currently, as mentioned above, she has no complaints whatsoever. PHYSICAL EXAMINATION: VITAL SIGNS: Current vital signs are reviewed. Temperature 98.2, heart rate 80, respiratory rate 18, blood pressure 117/97, mean 103, room air saturation 96%. GENERAL: She appears in no acute distress. Certainly no respiratory distress. HEENT: Examination is grossly unremarkable. Membranes are moist. No nasal O2 noted. NECK: Supple. Full range of motion. No adenopathy or thyromegaly. Neck veins are flat. CARDIOVASCULAR: Examination reveals regular rhythm and rate. S1, S2 normal. No S3, S4, or murmur. Heart rate 80. LUNGS: Are clear. Breath sounds equal. No wheezes, rhonchi or crackles. ABDOMEN: Soft. Bowel sounds are heard. EXTREMITIES: Are intact. No significant cyanosis, clubbing, or edema. SKIN: Without rash. NEUROLOGIC: Examination appears to be reasonably intact. She is alert and oriented. She is able to answer questions currently. Apparently this was not the case in the emergency room last night. LABS: Labs are reviewed. White count 19.3, hemoglobin 10.6, hematocrit 34.1, platelet count normal. PT, INR normal. PTT 21.9. Sodium 130, potassium 4, chloride 92, CO2 of 20. BUN and creatinine were 63 and 6.76. Anion gap is 18. Her plasma lactic acid was 3.5, now 1.9. The rest of her labs are reviewed. Magnesium 1.5. Troponin 0.358. N terminal proBNP is 124,000. Albumin 3.1. Microbiology is currently negative. Chest x-ray is normal. MEDICATIONS: Medications are reviewed. ASSESSMENT: 1. Possible non ST-segment elevation myocardial infarction. 2. Hypotension, of unclear etiology, resolved. 3. Chronic renal failure with anion gap metabolic acidosis, currently on q.6 hour peritoneal dialysis. 4. Hypotension, resolved. 5. History of atrial fibrillation. 6. History of chronic obstructive pulmonary disease/asthma. 7. History of heart failure. 8. History of cerebrovascular accident. 9. History of hypertension. 10.History of degenerative joint disease. 11.History of pneumonia. 12.Previous history of syncope. PLAN: The patient's medications will be reviewed. Additional recommendations and suggestions are forthcoming. Currently, the patient looks great. She is a NO CODE. We did discuss this with her at the bedside. She is alert and oriented. She is able to have those discussions. The brain CT shows previous old right parietal cortical infarct. This occurred apparently back in the mid . Additional recommendations and suggestions are forthcoming. The patient could be transferred out to the general medical floor. MMODL / IJN: [id number] /
--- NOTE | 2019-02-22 08:33 | XR ---
EXAMINATION TYPE: XR chest 1V DATE OF EXAM: 02/22/2019 COMPARISON: 03/03/2019 HISTORY: Shortness of breath TECHNIQUE: Single frontal view of the chest is obtained. FINDINGS: Right-sided internal jugular approach central venous catheter has been inserted terminatin g in the high right atrium. Retraction of approximately 3.5 cm could be considered. Is no focal air s pace opacity, pleural effusion, or pneumothorax seen. The cardiac silhouette size is mildly enlarged but stable. There is diffuse osseous demineralization. The osseous structures are intact. Extensive atherosclerosis is seen of the visualized upper extremity vasculature. Chronic right acromioclavicul ar joint separation. Nodular density at the right lung base likely represents the patient's nipple sh adow although this was not present on the prior. Attention on follow-up exams. IMPRESSION: 1. New right-sided internal jugular approach central venous catheter terminating in the high right at rium. Retraction of approximately 3.5 cm could be considered. 2. Nodular density at the right lung base likely represents the patient's nipple shadow, however this is not seen on the prior. Attention on follow up exams.
[2019-02-22] MEDS ORDERED: APIXABAN 5 MG TAB PO SCH (09:00)
[2019-02-22] MEDS ORDERED: NON FORMULARY DRUG (Omeprazole 20 MG) PO SCH (09:00)
[2019-02-22] MEDS: ACETAMINOPHEN TAB 325 MG TAB PO SCH ×3 (09:14→21:31)
[2019-02-22] MEDS: AMIODARONE 200 MG TAB PO SCH ×3 (09:15→21:31)
[2019-02-22] MEDS: PANTOPRAZOLE 40 MG/10 ML VIAL IV SCH (09:15)
[2019-02-22] MEDS: GENTAMICIN 0.1% CREAM 15 GM TUBE TOPICAL SCH ×3 (09:15→21:35)
[2019-02-22] MEDS: METOPROLOL TARTRATE 50 MG TAB PO SCH ×2 (09:15→21:31)
[2019-02-22] MEDS: DEXTROSE 5%-0.45% NACL 1,000 ML IV SCH (09:15)
--- NOTE | 2019-02-22 10:05 | CONS ---
CONSULTATION Brittany Levin is a 73-year-old lady with end-stage renal disease on peritoneal dialysis, who has been in and out of the hospital a lot. She was discharged on January 19 after being here in the hospital with multiple comorbid conditions. At that time, Dr. Sampson had seen her from a cardiology standpoint. She had what seems to be a persistent atrial fibrillation with rapid ventricular rate, end-stage renal disease with peritoneal dialysis, mild elevation of troponin and chronically elevated BNP. An echocardiogram on that visit initially on December 28 revealed significant LV dysfunction, but a limited study on January 03 showed remarkable improvement in LV function, almost 50% ejection fraction. There was no pericardial effusion. This hospitalization was for what seems to be a transfer actually from [facility] with altered mental status, shortness of breath and being unresponsive. No meaningful history is available. After arrival and some hydration, she actually feels better and responds to questions. Denies any chest pain. Indicates to me that her shortness of breath is the same. She did have some peritoneal dialysis done through the night. She is resting comfortably without symptoms. PAST MEDICAL HISTORY: Remarkable for persistent atrial fibrillation, bronchial asthma, history of previous CVA, hypertension, end-stage renal disease on peritoneal dialysis. ALLERGIES: None. MEDICATIONS: Medications include amiodarone 200 mg b.i.d., metoprolol 75 mg b.i.d., sodium bicarbonate tablets, Eliquis 2.5 mg b.i.d., Pulmicort inhaler, and omeprazole. EKG revealed atrial fibrillation with moderate ventricular rate. Chest x-ray revealed that there was enlarged cardiac silhouette without significant pulmonary vascular congestion. Laboratory data revealed that the BNP was elevated. Troponin was 0.3. The pH was down to 7.27. ProBNP was significantly elevated. PHYSICAL EXAMINATION: On examination, blood pressure is 120/78, pulse rate is about 90 to 100, irregular. HEENT: Unremarkable. Fundus was not examined by me. Neck is supple. There is JVD. There is no carotid bruit. Heart exam reveals S1, S2 heard normally with a short systolic murmur. Lungs reveal diminished air entry on both bases. Abdomen is soft. Lower extremities reveal diminished pulses. Central nervous system grossly no focal deficits, but I did not do a detailed examination. IMPRESSION: 1. Rule out sepsis. 2. Altered mentation. 3. End-stage renal disease, on peritoneal dialysis. 4. Persistent atrial fibrillation with moderate ventricular rate. 5. History of hypertension. 6. History of previous cerebrovascular accident. RECOMMENDATIONS: I am recommending that we add Eliquis 2.5 mg b.i.d. Continue all her other medications as before. The patient has been hydrated. Her lactic acid levels have improved. Rate control is fair. I will resume Eliquis. Continue all other medications including beta jil. For elevated troponin, no intervention is necessary and does not reflect any myocardial injury. Thank you very much for the consult. MMODL / IJN: [id number] /
[2019-02-22 11:21] VITALS: BMI 23.8
--- NOTE | 2019-02-22 11:33 | P.HPIM ---
History of Present Illness H&P Date: 02/22/19 This is a 73-year-old female patient of Dr. Latham residing at [facility] with past medical history of atrial fibrillation on eliquis, chronic diastolic heart failure, end-stage renal disease on CAPD, hypertension, COPD, history of tobacco use and dependence and quit in 2007, h istory of alcohol abuse, CVA in 2005. Patient was last admitted on January 28 at which time she presented with difficulty breathing and mental status changes found on CAT scan of the brain to have 7 mm focus of acute intraparenchymal hemorrhage right mid cerebellar hemisphere. No midline shift. Background mild to moderate diffuse cerebral atrophy and advanced chronic small vessel ischemic change with old right frontal lobe infarct. Patient was transferred to [facility] and was therefore 7 days, discharged to [facility] for subacute rehab. Patient was transferred by EMS from [facility] for altered mental status and apparently unresponsive yesterday. Pulse ox also was apparently low at the snf. Patient was brought into [facility] emergency patient. She was afebrile, heart rate 86, blood pressure 102/32, pulse ox 100% on 100% nonrebreat her but her blood pressure dropped down to 87/61. White count 19.3, hemoglobin 10.6. Sodium 1:30, potassium 4.0, chloride 92, CO2 20, BUN 63, creatinine 6.76, blood sugar 193. Lactic acid was 4.5, ammonia less than 9, AST 49, ALT 43, alkaline phosphatase 121. ProBNP 124,000, troponin 0.358. EKG atrial flutter CAT scan of the brain showe cerebral atrophy and chronic small vessel ischemic. Old right parietal cortical infarct. No acute abnormality. No change. Chest x-rayReveals no acute cardiopulmonary disease area and no change. Right IJ line was placed. Peritoneal fluid culture, blood culture and urine culture have been obtained. Review of Systems ROS unobtainable: due to mental status Past Medical History Past Medical History: Atrial Fibrillation, Asthma, Heart Failure, COPD, CVA/TIA, Dialysis, Eye Disorder, Hypertension, Osteoarthritis (OA), Pneumonia, Renal Disease, Syncope Additional Past Medical History / Comment(s): CVA 2005, ESRD, Dialysis cath inserted 02-02-18 gets dialysis , History of Any Multi-Drug Resistant Organisms: None Reported Past Surgical History: Tonsillectomy Additional Past Surgical History / Comment(s): ORIF rt ankle-[address], IUD removal, lumbar steroid injections, dental implants, cardioversion, dialysis cath. has ocl on l wrist, Past Anesthesia/Blood Transfusion Reactions: No Reported Reaction Additional Past Anesthesia/Blood Transfusion Reaction / Comment(s): Past blood transfusions - no reaction Past Psychological History: Anxiety Smoking Status: Former smoker Past Alcohol Use History: None Reported Additional Past Alcohol Use History / Comment(s): Patient smoked one and half packs of cigarettes per day started in 1973 and quit 2007. Patient used to drink heavily-none now Past Drug Use History: None Reported - Past Family History Mother Family Medical History: No Reported History Additional Family Medical History / Comment(s): Mother in her 80s from abdominal aortic aneurysm. Father Family Medical History: Myocardial Infarction (MS) Additional Family Medical History / Comment(s): Father at age 52 from acute MS. Medications and Allergies Home Medications Medication Instructions Recorded Confirmed Type Omeprazole [PriLOSEC] 20 mg PO DAILY 12/28/18 02/21/19 History Amiodarone [Cordarone] 200 mg PO TID tab 01/10/19 02/21/19 Rx ALPRAZolam [Xanax] 0.25 mg PO Q8H PRN 01/27/19 02/21/19 History Ipratropium-Albuterol Nebulize 3 ml INHALATION RT-Q4H 01/27/19 02/21/19 History [Duoneb 0.5 mg-3 mg/3 ml Soln] Acetaminophen [Tylenol Arthritis] 650 mg PO TID 02/21/19 02/21/19 History Budesonide/Formoterol Fumarate 2 puff INHALATION RT-BID 02/21/19 02/21/19 History [Symbicort 160-4.5 Mcg Inhaler] Calcium Acetate [Phoslo] 667 mg PO AC-TID 02/21/19 02/21/19 History Gentamicin 0.1% Cream 1 applic TOPICAL TID 02/21/19 02/21/19 History Melatonin 1 mg PO HS 02/21/19 02/21/19 History Metoprolol Tartrate [Lopressor] 100 mg PO BID 02/21/19 02/21/19 History Allergies Allergy/AdvReac Type Severity Reaction Status Date / Time No Known Allergies Allergy Verified 02/21/19 20:50 Physical Exam Vitals: Vital Signs Temp Pulse Resp BP Pulse Ox 02/22/19 10:00 82 14 108/71 97 02/22/19 09:00 89 17 126/103 97 02/22/19 08:00 98.0 F 87 16 119/99 98 02/22/19 07:00 98.2 F 80 18 117/97 96 02/22/19 06:00 98.2 F 76 16 103/78 95 02/22/19 05:00 105 H 14 124/83 96 02/22/19 04:00 97.8 F 90 14 113/74 95 02/22/19 03:53 92 02/22/19 03:41 101 H 02/22/19 03:00 83 15 126/93 94 L 02/22/19 02:00 90 19 116/92 94 L 02/22/19 01:00 97.7 F 101 H 14 114/75 95 02/22/19 00:37 91 02/22/19 00:18 91 97 02/22/19 00:00 86 14 87/64 96 02/21/19 23:40 96.6 F L 85 13 104/92 94 L 02/21/19 23:10 97.0 F L 84 18 115/67 98 02/21/19 22:43 97.8 F 86 18 87/65 98 02/21/19 22:15 81 16 107/65 98 02/21/19 21:45 81 18 109/68 98 02/21/19 21:41 98.6 F 02/21/19 21:30 82 16 110/70 98 02/21/19 21:15 78 16 112/67 98 02/21/19 21:00 72 16 117/69 98 02/21/19 20:55 78 16 123/69 98 02/21/19 20:50 84 15 113/69 98 02/21/19 20:35 80 15 87/61 98 02/21/19 20:30 80 14 91/71 98 02/21/19 20:29 12 02/21/19 20:25 81 14 132/55 96 02/21/19 20:09 81 12 80/28 97 02/21/19 20:04 86 18 81/48 96 02/21/19 19:45 98.6 F 86 18 102/32 100 Intake and Output 02/21/19 02/22/19 02/22/19 22:59 06:59 14:59 Intake Total 640 320 Balance 640 320 Intake: IV 640 320 Dextrose 5%-0.45% NaCl 1, 640 320 000 ml @ 80 mls/hr IV . [id number] SIMON Rx#:[id number] Other: # Bowel Movements 1 1 Weight 58.014 kg 53.4 kg Gen: This is within 73-year-old female. Patient is in the ICU bed appears in no acute distress. HEENT: Head is atraumatic, normocephalic. Pupils right pupil larger than left, round. Sclerae is anicteric. NECK: Supple. No JVD. No lymphadenopathy. No thyromegaly. LUNGS: Diminished breath sounds with scattered rhonchi. No intercostal retractions. HEART: Irreggular rate and rhythm. Systolic murmur. night monitor atrial fibrillation with controlled rate ABDOMEN: Soft. Bowel sounds are present. No masses. No tenderness. Peritoneal catheter in place. EXTREMITIES: No pedal edema. No calf tenderness. Dorsalis pedis palpable. NEUROLOGICAL: Patient is lethargic, oriented to person. Patient opens eyes to verbal stimuli. Severe generalized weakness Results CBC & Chem 7: 02/22/19 04:20 02/22/19 04:20 Labs: Abnormal Lab Results - Last 24 Hours (Table) 02/21/19 02/21/19 02/21/19 Range/Units 20:00 20:00 20:00 WBC 15.1 H (3.8-10.6) k/uL RBC (3.80-5.40) m/uL Hgb (11.4-16.0) gm/dL MCV (80.0-100.0) fL RDW (11.5-15.5) % Neutrophils # 13.2 H (1.3-7.7) k/uL Lymphocytes # 0.8 L (1.0-4.8) k/uL APTT (22.0-30.0) sec Sodium 128 L (137-145) mmol/L Potassium 5.6 H (3.5-5.1) mmol/L Chloride 87 L (98-107) mmol/L Carbon Dioxide 17 L (22-30) mmol/L BUN 70 H (7-17) mg/dL Creatinine 7.27 H* (0.52-1.04) mg/dL Glucose 191 H (74-99) mg/dL POC Glucose (mg/dL) (75-99) mg/dL Plasma Lactic Acid Erich 4.5 H* (0.7-2.0) mmol/L Calcium (8.4-10.2) mg/dL Phosphorus 7.3 H (2.5-4.5) mg/dL Magnesium (1.6-2.3) mg/dL AST 49 H (14-36) U/L ALT (9-52) U/L Troponin I (0.000-0.034) ng/mL Total Protein (6.3-8.2) g/dL Albumin (3.5-5.0) g/dL 02/21/19 02/21/19 02/21/19 Range/Units 20:00 20:00 23:20 WBC (3.8-10.6) k/uL RBC (3.80-5.40) m/uL Hgb (11.4-16.0) gm/dL MCV (80.0-100.0) fL RDW (11.5-15.5) % Neutrophils # (1.3-7.7) k/uL Lymphocytes # (1.0-4.8) k/uL APTT 21.9 L (22.0-30.0) sec Sodium (137-145) mmol/L Potassium (3.5-5.1) mmol/L Chloride (98-107) mmol/L Carbon Dioxide (22-30) mmol/L BUN (7-17) mg/dL Creatinine (0.52-1.04) mg/dL Glucose (74-99) mg/dL POC Glucose (mg/dL) 122 H (75-99) mg/dL Plasma Lactic Acid Erich (0.7-2.0) mmol/L Calcium (8.4-10.2) mg/dL Phosphorus (2.5-4.5) mg/dL Magnesium (1.6-2.3) mg/dL AST (14-36) U/L ALT (9-52) U/L Troponin I 0.358 H* (0.000-0.034) ng/mL Total Protein (6.3-8.2) g/dL Albumin (3.5-5.0) g/dL 02/21/19 02/22/19 02/22/19 Range/Units 23:49 04:20 04:20 WBC 19.3 H (3.8-10.6) k/uL RBC 3.37 L (3.80-5.40) m/uL Hgb 10.6 L (11.4-16.0) gm/dL MCV 101.1 H (80.0-100.0) fL RDW 15.6 H (11.5-15.5) % Neutrophils # 18.1 H (1.3-7.7) k/uL Lymphocytes # 0.3 L (1.0-4.8) k/uL APTT (22.0-30.0) sec Sodium 130 L (137-145) mmol/L Potassium (3.5-5.1) mmol/L Chloride 92 L (98-107) mmol/L Carbon Dioxide 20 L (22-30) mmol/L BUN 63 H (7-17) mg/dL Creatinine 6.76 H (0.52-1.04) mg/dL Glucose 193 H (74-99) mg/dL POC Glucose (mg/dL) (75-99) mg/dL Plasma Lactic Acid Erich 3.5 H* (0.7-2.0) mmol/L Calcium 8.1 L (8.4-10.2) mg/dL Phosphorus 5.1 H (2.5-4.5) mg/dL Magnesium 1.5 L (1.6-2.3) mg/dL AST 51 H (14-36) U/L ALT 60 H (9-52) U/L Troponin I (0.000-0.034) ng/mL Total Protein 5.9 L (6.3-8.2) g/dL Albumin 3.1 L (3.5-5.0) g/dL 02/22/19 Range/Units 06:40 WBC (3.8-10.6) k/uL RBC (3.80-5.40) m/uL Hgb (11.4-16.0) gm/dL MCV (80.0-100.0) fL RDW (11.5-15.5) % Neutrophils # (1.3-7.7) k/uL Lymphocytes # (1.0-4.8) k/uL APTT (22.0-30.0) sec Sodium (137-145) mmol/L Potassium (3.5-5.1) mmol/L Chloride (98-107) mmol/L Carbon Dioxide (22-30) mmol/L BUN (7-17) mg/dL Creatinine (0.52-1.04) mg/dL Glucose (74-99) mg/dL POC Glucose (mg/dL) 162 H (75-99) mg/dL Plasma Lactic Acid Erich (0.7-2.0) mmol/L Calcium (8.4-10.2) mg/dL Phosphorus (2.5-4.5) mg/dL Magnesium (1.6-2.3) mg/dL AST (14-36) U/L ALT (9-52) U/L Troponin I (0.000-0.034) ng/mL Total Protein (6.3-8.2) g/dL Albumin (3.5-5.0) g/dL Microbiology - Last 24 Hours (Table) 02/22/19 02:35 Body Fluid Culture - Preliminary Peritoneal Fluid Thrombosis Risk Factor Assmnt - DVT/VTE Prophylaxis DVT/VTE Prophylaxis: Mechanical Prophylaxis ordered - Choose All That Apply Any of the Below Risk Factors Present?: Yes Each Factor Represents 1 point: Abnormal pulmonary function (COPD) Other Risk Factors: Yes Each Risk Factor Represents 2 Points: Age 61-74 years Thrombosis Risk Factor Assessment Total Risk Factor Score: 3 Thrombosis Risk Factor Assessment Level: Moderate Risk Assessment and Plan Plan: 1. Hypotension of unclear etiology, rule out sepsis. Peritoneal fluid, urine and blood cultures in progress. Continue Rocephin. 2. Acute transient hypoxic respiratory failure requiring nonrebreather currently on room air and pulse ox seen 97%. Symptoms completely resolved. 3. Metabolic encephalopathy possibly related to sepsis and underlying dementia. 4. History of acute intraparenchymal hemorrhage in the right mid cerebral hemisphere on February 03 requiring transfer to [facility], stable. Patient did not undergo any surgical intervention according to the . 5. COPD, without exacerbation. Continue DuoNeb treatments, Symbicort. 6. Chronic diastolic heart failure. Continue CAPD. Nephrology on consult. 7. End-stage renal disease on CAPD. Nephrology consult. Continue CAPD per nephrology, sodium bicarb 8. Chronic atrial fibrillation. Continue amiodarone 200 mg 3 times daily, Lopressor 100 mg twice daily. Patient is off eliquis since she had intracranial bleed on 01/28/2019. Continue to hold for now. 9. History of CVA in 2005. 10. Hypertension. Continue metoprolol. 11. Gastroesophageal reflux disease. Continue Protonix. 12. Generalized anxiety disorder. Continue Xanax as needed. 13. DVT prophylaxis. Eliquis will be placed on hold due to bleed. CODE STATUS: Full code per her 's wishes. Patient will be admitted to the hospital for a minimum of 2 night stay. Discharge plan: Return to [facility]. Impression and plan of care have been directed as dictated by the signing physician. Holly Mancia nurse practitioner acting as scribe for signing physician.
[2019-02-22] MEDS: MAGNESIUM SULFATE-D5W PMX 1 GM in DEXTROSE/WATER 1 100ML.BAG IVPB SCH ×2 (11:52→12:53)
[2019-02-22] MEDS: INSULIN ASPART (NovoLOG) 100 UNIT/ML VIAL SQ SCH ×3 (11:52→20:53)
[2019-02-22 12:02] LABS: Glucose,Whole Blood 193 mg/dL (75-99)
[2019-02-22 14:40] LABS: Bilirubin,Urine 2+ (Negative); Leukocyte Esterase,Urine Moderate (Negative)
[2019-02-22 14:41] LABS: Appearance,Urine Clear (Clear); Color,Urine Dark Yellow
[2019-02-22 14:42] LABS: Blood,Urine Negative (Negative); Glucose,Urine (UA) Negative (Negative); Ketones,Urine Negative (Negative); Nitrite,Urine Negative (Negative); Protein,Urine Negative (Negative); Urobilinogen,Urine <2.0 mg/dL (<2.0)
[2019-02-22 14:48] LABS: RBC,Urine 1 /hpf (0-5); Squamous Epithelial Cell,Urine 1 /hpf (0-4)
[2019-02-22 14:49] LABS: Amorphous Sediment,Urine Few /hpf; Bacteria,Urine Occasional /hpf
[2019-02-22 16:57] LABS: Glucose,Whole Blood 145 mg/dL (75-99)
[2019-02-22 20:33] LABS: Glucose,Whole Blood 136 mg/dL (75-99)
--- NOTE | 2019-02-22 20:51 | CONS ---
CONSULTATION REASON FOR CONSULT: End-stage renal disease. HISTORY OF PRESENT ILLNESS: Patient is a 73-year-old female with end-stage renal disease, on peritoneal dialysis. She currently resides at [facility]. She was admitted with mental status changes and an episode of unresponsiveness. Recently patient had intracranial bleed in the right mid cerebellar hemisphere last month. She was at [facility] and was discharged to rehab from there. Currently patient denies any nausea, vomiting, abdominal pain or diarrhea. She has been tolerating peritoneal dialysis fairly well. She denies any chest pains or shortness of breath. PAST MEDICAL HISTORY: 1. Atrial fibrillation. 2. Asthma. 3. COPD. 4. CVA/TIA. 5. End-stage renal disease. 6. Hypertension. 7. Osteoarthritis. 8. Syncope. 9. Bilateral renal artery stenosis. PAST SURGICAL HISTORY: 1. Tonsillectomy. 2. ORIF. 3. IUD removal. 4. Lumbar steroid injections. 5. Cardioversion. 6. Dialysis catheter placement. 7. Dental implants. SOCIAL HISTORY: Patient is a former smoker. No history of drug abuse or alcohol abuse. She currently resides at [facility]. MEDICATIONS: Medications prior to admission included: 1. Prilosec. 2. Cordarone. 3. Xanax. 4. Tylenol. 5. PhosLo. 6. Melatonin. 7. Lopressor. ALLERGIES: NONE. REVIEW OF SYSTEMS: As per HPI. Other systems negative. PHYSICAL EXAMINATION: Patient is comfortable, awake, not in any acute distress. She is alert and oriented x3. Blood pressure this morning 126/103, heart rate 89 per minute. She is afebrile. EXAMINATION OF THE HEART: S1 and S2. EXAMINATION OF LUNGS: Bilateral breath sounds are heard. ABDOMEN: Soft, non-tender. Examination of lower extremities shows no evidence of edema. CABLE MAKER exam is grossly intact. LABS: Sodium 130, potassium 4.0, BUN 63, serum creatinine 6.76, hemoglobin 10.6 g/dL. UA is unremarkable. ASSESSMENT: 1. End-stage renal disease, on peritoneal dialysis, maintained on 2.5% solution alternating with 1.25% solution. Patient is tolerating her treatment fairly well. 2. Atrial fibrillation with controlled ventricular response, being followed by Cardiology. 3. Mental status changes seem to have resolved. 4. Bilateral renal artery stenosis with controlled blood pressures currently. 5. Recent history of cerebrovascular accidents with intracranial bleed, currently not on anticoagulation. 6. Chronic kidney disease mineral bone disorder, maintained on PhosLo. PLAN: Continue current PD exchanges. Encourage increased oral intake. Send PD fluid for cell count. MMODL / IJN: [id number] /
[2019-02-22] MEDS ORDERED: MELATONIN 1 MG TAB PO SCH (21:00)
[2019-02-23] MEDS: DIALYSIS (PERIT 1.5%) 2,500 ML 37.5 G/2,500 ML BAG INTRAPERIT SCH ×2 (00:14→11:58)
[2019-02-23] MEDS: DIALYSIS (PERIT 2.5%) 2,500 ML 62.5 G/2,500 ML BAG INTRAPERIT SCH (06:33)
[2019-02-23 07:07] LABS: Glucose,Whole Blood 142 mg/dL (75-99)
[2019-02-23] MEDS: CALCIUM ACETATE 667 MG CAP PO SCH ×2 (07:10→11:58)
[2019-02-23] MEDS: INSULIN ASPART (NovoLOG) 100 UNIT/ML VIAL SQ SCH ×2 (07:10→11:58)
[2019-02-23] MEDS: SYMBICORT 160-4.5 MCG INHALER INHALATION SCH (08:07)
[2019-02-23] MEDS: IPRATROPIUM-ALBUTEROL 3 ML NEB INHALATION SCH ×2 (08:07→11:27)
--- NOTE | 2019-02-23 08:10 | PN ---
PROGRESS NOTE PULMONARY/CRITICAL CARE PROGRESS NOTE: DATE OF SERVICE: 02/23/2019 This is a patient who was seen in consultation yesterday. She came into the emergency room with lethargy, mental status changes and mild hypotension. She was basically just fluid resuscitated and given oxygen therapy and she really came around very nicely. She is thought to have a possible non ST-segment elevation myocardial infarction, hypotension which is resolved, chronic renal failure, currently on q.6 hour peritoneal dialysis, atrial fibrillation, COPD, heart failure, CVA, hypertension, DJD, pneumonia, and syncope. Currently, she is doing reasonably well. She is resting comfortably in bed. She is not receiving any supplemental oxygen. Her IV saline at 20 mL an hour. Current vital signs are reviewed, temperature is 97.6, heart rate 78, respiratory rate 15, blood pressure 131/81 mean 97, saturations are 95% on room air. Appears in no acute distress. No respiratory distress. HEENT: Examination is grossly unremarkable. Mucous membranes are moist. NECK: Supple. Full range of motion. No adenopathy or thyromegaly. Neck veins are flat. There is a right-sided central line. That could be removed. CARDIOVASCULAR examination reveals regular rhythm rate. S1, S2 normal. No S3, S4, or murmur. Heart rate is 78. LUNGS: Reveal clear breath sounds. No wheezes or rhonchi. Breath sounds equal bilaterally. No crackles. ABDOMEN: Soft. Bowel sounds are heard. EXTREMITIES: Intact. No cyanosis, clubbing, or edema. SKIN: Without rash. NEUROLOGIC: Examination is brief but nonfocal. Peritoneal fluid analysis was negative. Blood cultures are negative. LABS: Reviewed. Nothing new from today. Chest x-ray was normal. Repeat chest x-ray again is essentially unremarkable. MEDICATIONS: Reviewed. Her medications include Tylenol, Xanax, Cordarone, Symbicort, PhosLo, Rocephin, her peritoneal dialysis fluid, updrafts, insulin melatonin, metoprolol, Narcan and Protonix. The antibiotics could be discontinued. ASSESSMENT: 1. Possible non ST-segment elevation myocardial infarction. 2. Transient hypotension, resolved with fluid administration. 3. Chronic renal failure with anion gap metabolic acidosis, currently on every 6 hour peritoneal dialysis. 4. Hypotension, resolved. 5. History of chronic atrial fibrillation. 6. History of chronic obstructive pulmonary disease/asthma, stable. 7. History of congestive heart failure, stable. 8. History of cerebrovascular accident. 9. Hypertension by history. 10.Degenerative joint disease. 11.History of pneumonia. 12.Prior history of syncope. PLAN: Again code status needs to be addressed. She is adamant about not being on life support. Apparently a family member disagrees with that. The patient is lucid and is able to make decisions for herself. The antibiotic. We discontinued in my opinion. From my perspective the patient could be transferred back to [facility] the [facility]. We will clarify that with the primary service. Antibiotic is discontinued. Her respiratory status is stable. Hemodynamically, she is stable. If she is not discharged back to [facility] on the [facility], in my opinion, she could go to the general medical floor. YRN / TRINAN: [id number] /
[2019-02-23] MEDS: ACETAMINOPHEN TAB 325 MG TAB PO SCH (08:27)
[2019-02-23] MEDS: PANTOPRAZOLE 40 MG/10 ML VIAL IV SCH (08:28)
[2019-02-23] MEDS: AMIODARONE 200 MG TAB PO SCH (08:28)
[2019-02-23] MEDS: GENTAMICIN 0.1% CREAM 15 GM TUBE TOPICAL SCH (08:28)
[2019-02-23] MEDS: METOPROLOL TARTRATE 50 MG TAB PO SCH (08:28)
[2019-02-23 10:55] LABS: HCT 31.4 % (34.0-46.0); HGB 10.4 gm/dL (11.4-16.0); MCH 33.2 pg (25.0-35.0); MCHC 33.2 g/dL (31.0-37.0); Macrocytosis Slight; Mean Platelet Volume 6.3; Platelet Count 303 k/uL (150-450); RBC 3.14 m/uL (3.80-5.40); RDW 15.7 % (11.5-15.5); WBC 17.9 k/uL (3.8-10.6)
--- NOTE | 2019-02-23 11:07 | PN ---
PROGRESS NOTE This is a 73-year-old lady who came in with some altered mentation and also has end- stage renal disease on peritoneal dialysis. Apparently, she had intracranial bleed previously and therefore, Eliquis has been discontinued. This bleed apparently happened within the last 6 weeks. This was an intracranial hemorrhagic stroke. Vitals are stable. She is feeling well, S1-S2 heard normally, irregular rhythm noted, short systolic murmur noted. Lungs revealed decent air entry. Abdomen and lower extremity exam is unchanged. I will continue to see the patient as needed. MMODL / IJN: [id number] /
[2019-02-23 11:45] LABS: Glucose,Whole Blood 160 mg/dL (75-99)
--- NOTE | 2019-02-23 11:53 | P.DS ---
Providers Date of admission: 02/21/19 20:49 Expected date of discharge: 02/23/19 Attending physician: Irving Latham Consults: 02/21/19 20:46 Consult Physician Routine Consulting Provider: Tessy Parmar Consult Reason/Comments: icu Do you want consulting provider notified?: Yes Consult Physician Urgent Consulting Provider: Hemanth Sampson Consult Reason/Comments: nstemi Do you want consulting provider notified?: Yes Consult Physician Urgent Consulting Provider: Kaela Vargas Consult Reason/Comments: known Do you want consulting provider notified?: Yes [facility] This is a 73-year-old female patient of Dr. Latham residing at [facility] with past medical history of atrial fibrillation on eliquis, chronic diastolic heart failure, end-stage renal disease on CAPD, hypertension, COPD, history of tobacco use and dependence and quit in 2007, history of alcohol abuse, CVA in 2005. Patient was last admitted on January 28 at which time she presented with difficulty breathing and mental status changes found on CAT scan of the brain to have 7 mm focus of acute intraparenchymal hemorrhage right mid cerebellar hemisphere. No midline shift. Background mild to moderate diffuse cerebral atrophy and advanced chronic small vessel ischemic change with old right frontal lobe infarct. Patient was transferred to [facility] and was therefore 7 days, discharged to [facility] for subacute rehab. Patient was transferred by EMS from [facility] for altered mental status and apparently unresponsive yesterday. Pulse ox also was apparently low at the shelter. Patient was brought into [facility] emergency patient. She was afebrile, heart rate 86, blood pressure 102/32, pulse ox 100% on 100% nonrebreather but her blood pressure dropped down to 87/61. White count 19.3, hemoglobin 10.6. Sodium 1:30, potassium 4.0, chloride 92, CO2 20, BUN 63, creatinine 6.76, blood sugar 193. Lactic acid was 4.5, ammonia less than 9, AST 49, ALT 43, alkaline phosphatase 121. ProBNP 124,000, troponin 0.358. EKG atrial flutter CAT scan of the brain showe cerebral atrophy and chronic small vessel ischemic. Old right parietal cortical infarct. No acute abnormality. No change. Chest x-rayReveals no acute cardiopulmonary disease area and no change. Right IJ line was placed. Peritoneal fluid culture, blood culture and urine culture have been obtained. 02/23: Patient remains in intensive care unit waiting for MedSur bed. Patient was seen by nephrology with continued plan for PD exchanges. Fluid culture is in progress and blood culture no growth at 24 hours. She has been seen by Dr. Pineda this morning and cleared for discharge back to shelter. Patient was also seen by Dr. WILMAN Andrade. We are holding eliquis due to recent intracranial bleed. Long discussion with the patient's regarding palliative or hospice care. He is open to information about this but does not want to pursue it at this moment. manager web updated and will arrange for informational meeting. Patient will be discharged back to [facility] today in stable condition. Discharge diagnoses: 1. Hypotension of unclear etiology, rule out sepsis. 2. Acute transient hypoxic respiratory failure requiring nonrebreather currently on room air and pulse ox seen 97%. Symptoms completely resolved. 3. Metabolic encephalopathy possibly related to sepsis and underlying dementia. 4. History of acute intraparenchymal hemorrhage in the right mid cerebral hemisphere on February 03 requiring transfer to [facility], stable. 5. COPD, without exacerbation. 6. Chronic diastolic heart failure. 7. End-stage renal disease on CAPD. 8. Chronic atrial fibrillation. 9. History of CVA in 2005. 10. Hypertension. 11. Gastroesophageal reflux disease. 12. Generalized anxiety disorder. Discharge plan: Return to [facility] under the service of Dr. Hinson. Impression and plan of care have been directed as dictated by the signing physician. Holly Mancia nurse practitioner acting as scribe for signing physician. Patient Condition at Discharge: Good Plan - Discharge Summary Discharge Rx Participant: Yes New Discharge Prescriptions: New Cefuroxime [Ceftin] 250 mg PO BID #14 tablet Continue Omeprazole [PriLOSEC] 20 mg PO DAILY Amiodarone [Cordarone] 200 mg PO TID tab Ipratropium-Albuterol Nebulize [Duoneb 0.5 mg-3 mg/3 ml Soln] 3 ml INHALATION RT-Q4H Melatonin 1 mg PO HS Gentamicin 0.1% Cream 1 applic TOPICAL TID Calcium Acetate [PhosLo] 667 mg PO AC-TID Metoprolol Tartrate [Lopressor] 100 mg PO BID Acetaminophen [Tylenol Arthritis] 650 mg PO TID Budesonide/Formoterol Fumarate [Symbicort 160-4.5 Mcg Inhaler] 2 puff INHALATION RT-BID ALPRAZolam [Xanax] 0.25 mg PO Q8H PRN #9 tab PRN Reason: Anxiety Discharge Medication List Omeprazole [PriLOSEC] 20 mg PO DAILY 12/28/18 [History] Amiodarone [Cordarone] 200 mg PO TID tab 01/10/19 [Rx] Ipratropium-Albuterol Nebulize [Duoneb 0.5 mg-3 mg/3 ml Soln] 3 ml INHALATION RT-Q4H 01/27/19 [History] Acetaminophen [Tylenol Arthritis] 650 mg PO TID 02/21/19 [History] Budesonide/Formoterol Fumarate [Symbicort 160-4.5 Mcg Inhaler] 2 puff INHALATION RT-BID 02/21/19 [History] Calcium Acetate [PhosLo] 667 mg PO AC-TID 02/21/19 [History] Gentamicin 0.1% Cream 1 applic TOPICAL TID 02/21/19 [History] Melatonin 1 mg PO HS 02/21/19 [History] Metoprolol Tartrate [Lopressor] 100 mg PO BID 02/21/19 [History] ALPRAZolam [Xanax] 0.25 mg PO Q8H PRN #9 tab 02/23/19 [Rx] Cefuroxime [Ceftin] 250 mg PO BID #14 tablet 02/23/19 [Rx] Follow up Appointment(s)/Referral(s): Dayton Hinson DO [STAFF PHYSICIAN] - 1 Week (at [facility]) Discharge Disposition: TRANSFER TO [facility]
[2019-02-23 12:34] LABS: Appearance,BF Clear; Nucleated Cells, Body Fluid 2 /uL; RBC, Body Fluid 0 /uL
[2019-02-23 12:39] VITALS: RESP 16
[2019-02-23 15:03] VITALS: BP 95/67; PULSE 68; TEMP 97.8
--- NOTE | 2019-02-23 20:10 | PN ---
PROGRESS NOTE Patient is seen for followup for end-stage renal disease. She is currently seen in the ICU. The patient was admitted with hypotension. Troponin was elevated at 0.358. Lactic acid was also elevated. It has now decreased. No obvious source of infection identified. Blood cultures have been negative. Fluid culture is negative. PD fluid cell count is not elevated. There are plans for possible discharge today. Patient is eating well. She is tolerating her peritoneal dialysis very well. PHYSICAL EXAMINATION: On examination today, blood pressure was 102/70, heart rate 62 per minute, patient is afebrile. Examination of the heart S1, S2. Examination of the lungs, bilateral breath sounds are heard. ABDOMEN: Soft, nontender. Examination of lower extremities shows no evidence of edema. [facility] exam grossly intact. LABS SHOW: Hemoglobin 10.4 g/dL today. Potassium was 4.0 yesterday. ASSESSMENT: 1. End-stage renal disease, on peritoneal dialysis continue current PD exchanges. 2. Elevated troponin. Currently not complaining of any chest pain. 3. Hypotension. Blood pressure is staying slightly on the lower side. The patient is not on any of her antihypertensive medications except the Lopressor. 4. Atrial fibrillation with controlled ventricular response. PLAN: Patient is stable for discharge from Nephrology standpoint. Continue with the peritoneal dialysis as outpatient. MMODL / IJN: [id number] /
[2019-02-24] MEDS ORDERED: PANTOPRAZOLE 40 MG TABLET PO SCH (07:30)
--- NOTE | 2019-03-01 08:32 | CDI ---
Documentation Clarification Form Date: 03/01/2019 From: Aracelis Mary Phone: If questions call Martha Baca @ [phone], Hours-8:30 am & 5 pm Swati Morillo Admit Date: 02/21/2019 8:49:00 PM Patient Name: Brittany Levin Visit Number: [id number] Discharge Date: 02/23/2019 3:36:00 PM ATTENTION: The Clinical Documentation Specialists (CDI) and [facility] Coding Staff appreciate your assistance in clarifying documentation. Please respond to the clarification below the line at the bottom and electronically sign. The CDI & [facility] Coding staff will review the response and follow-up if needed. Please note: Queries are made part of the Legal Health Record. If you have any questions, please contact the author of this message via ITS. Dr. Paco Mccoy Per H&P & DS states hypotension of unclear etiology, rule out sepsis and metabolic encephalopathy possibly related to sepsis and underlying dementia. Dr Andrade's consult states rule out sepsis. History/Risk Factors: HTN w chronic diastolic CHF w ESRD on peritoneal dialysis, acidosis WBC: 15.1 Neutrophils: 13.2 Lactic acid: 4.5 Lactic acid Sepsis Rflx: Y Bilirubin: 0.8 Blood cultures: no growth Vitals signs on admission: T-98.6, P-84, R-15, BP-87/61, O2 sat-98% ID Consult: No Antibiotics: IV Rocephin. IV Bolus: Dextrose 5%-0.45% NaCl ...1000ml IV 80mls/hr In your professional opinion, please clarify if these findings signify one of the following conditions, whether the condition is POA, and cause, if known: Condition Sepsis ruled out SIRS, without underlying infectious process Sepsis Severe Sepsis Septic Shock Other, please specify Unable to determine Present on Admission Yes No no sepsis, see dc summary MTDD
--- NOTE | 2019-03-01 08:55 | CDI ---
Documentation Clarification Form Date: 03/01/2019 From: Aracelis Mary Phone: If questions call Martha Baca @ [phone], Hours-8:30 am & 5 pm M- Yisel Admit Date: 02/21/2019 8:49:00 PM Patient Name: Brittany Levin Visit Number: [id number] Discharge Date: 02/23/2019 3:36:00 PM ATTENTION: The Clinical Documentation Specialists (CDI) and [facility] Coding Staff appreciate your assistance in clarifying documentation. Please respond to the clarification below the line at the bottom and electronically sign. The CDI & [facility] Coding staff will review the response and follow-up if needed. Please note: Queries are made part of the Legal Health Record. If you have any questions, please contact the author of this message via ITS. Dr. Paco Mccoy The diagnosis NSTEMI was documented in the ED note & in DS under consult reason, but is not noted in subsequent documentation. History/Risk Factors: possible sepsis, metabolic encephalopathy, HTN w chronic diastolic CHF w ESRD, CAPD, atrial flutter/fibrillation Clinical Indicators: Troponin I-0.358, BNP - [id number] Cardiology Consult : no mention of NSTEMI Please clarify if the NSTEMI was Present/active/treated this admission Ruled out Other, please specify Clinically unable to determine no mi. see cardiology notes MTDD
--- NOTE | 2019-03-01 09:05 | CDI ---
Documentation Clarification Form Date: 03/01/2019 From: Aracelis Mary Phone: If questions call Martha Baca @ [phone], Hours-8:30 am & 5 pm M- Yisel Admit Date: 02/21/2019 8:49:00 PM Patient Name: Brittany Levin Visit Number: [id number] Discharge Date: 02/23/2019 3:36:00 PM ATTENTION: The Clinical Documentation Specialists (CDI) and [facility] Coding Staff appreciate your assistance in clarifying documentation. Please respond to the clarification below the line at the bottom and electronically sign. The CDI & [facility] Coding staff will review the response and follow-up if needed. Please note: Queries are made part of the Legal Health Record. If you have any questions, please contact the author of this message via ITS. Dr. Irving Latham Conflicting documentation has been found in the medical record: Persistent atrial fibrillation was documented in Dr Andrade's consult. Chronic atrial fibrillation was documented in the H&P, DS and 02/[address] Pineda. History/Risk Factors: poss sepsis, HTN w chronic diastolic CHF w ESRD, CAPD EKG: Atrial flutter with variable AV block Treatment: Amiodarone 200 mg po TID, Apixaban 2.5 mg po BID In your opinion, what is the most clinically appropriate diagnosis for this patient? Chronic atrial fibrillation Persistent atrial fibrillation Other explanation of clinical findings Unable to determine (no explanation for clinical findings) chronic atrial fibrillation is documented. see dc summary. MTDD
--- NOTE | 2019-03-01 09:10 | CDI ---
Documentation Clarification Form Date: 03/01/19 From: Aracelis Mary Phone: If questions call Martha Baca @ [phone], Hours-8:30 am & 5 pm Swati Morillo Admit Date: 02/21/2019 8:49:00 PM Patient Name: Brittany Levin Visit Number: [id number] Discharge Date: 02/23/2019 3:36:00 PM ATTENTION: The Clinical Documentation Specialists (CDI) and [facility] Coding Staff appreciate your assistance in clarifying documentation. Please respond to the clarification below the line at the bottom and electronically sign. The CDI & [facility] Coding staff will review the response and follow-up if needed. Please note: Queries are made part of the Legal Health Record. If you have any questions, please contact the author of this message via ITS. Dr. Paco Mccoy Atrial Flutter is documented in the H&P and DS. History/Risk factors: poss sepsis, HTN w chronic diastolic CHF w ESRD, CAPD EKG/telemetry: Atrial flutter with variable AV block Treatment: Amiodarone 200 mg po TID, Apixaban 2.5 mg po BID In your professional opinion, in order to capture the severity of condition; can you please clarify the type of Atrial Flutter if known? Typical/Type I Atypical/Type II Other, please specify Unable to determine atrial fibrillation MTDD
== END 2019-02-23 15:36 | DRG 314 ==
LOC: EC 19:37 → 2SICU 20:49
PROVIDERS: ADMIT Internal Medicine; ATTEND Internal Medicine
PROC: 02H633Z Insertion of Infusion Device into Right Atrium, Percutaneous Approach (ICD-10-PCS; principal; 2019-02-21)
PROC: 3E1M39Z Irrigation of Peritoneal Cavity using Dialysate, Percutaneous Approach (ICD-10-PCS; 2019-02-22)
DX: I95.9 Hypotension, unspecified (principal); N18.6 End stage renal disease; J96.01 Acute respiratory failure with hypoxia; G93.41 Metabolic encephalopathy; I13.2 Hypertensive heart and chronic kidney disease with heart failure and with stage 5 chronic kidney disease, or end stage renal disease; E87.2 Acidosis; I50.32 Chronic diastolic (congestive) heart failure; E87.1 Hypo-osmolality and hyponatremia; I48.20 Chronic atrial fibrillation, unspecified; J44.9 Chronic obstructive pulmonary disease, unspecified; I70.1 Atherosclerosis of renal artery; E83.9 Disorder of mineral metabolism, unspecified; F03.90 Unspecified dementia, unspecified severity, without behavioral disturbance, psychotic disturbance, mood disturbance, and anxiety; K21.9 Gastro-esophageal reflux disease without esophagitis; F41.1 Generalized anxiety disorder; M19.90 Unspecified osteoarthritis, unspecified site; F10.11 Alcohol abuse, in remission; Z79.51 Long term (current) use of inhaled steroids; Z79.899 Other long term (current) drug therapy; Z86.73 Personal history of transient ischemic attack (TIA), and cerebral infarction without residual deficits; Z99.2 Dependence on renal dialysis; Z87.01 Personal history of pneumonia (recurrent); Z98.890 Other specified postprocedural states; Z87.81 Personal history of (healed) traumatic fracture; Z96.5 Presence of tooth-root and mandibular implants; Z86.79 Personal history of other diseases of the circulatory system; Z87.891 Personal history of nicotine dependence; Z82.49 Family history of ischemic heart disease and other diseases of the circulatory system; Z86.69 Personal history of other diseases of the nervous system and sense organs
CPT/HCPCS: 36415; 36556; 70450; 71045; 71046; 80053; 81001; 82140; 82550; 83605; 83735; 83880; 84100; 84484; 85025; 85027; 85610; 85730; 87040; 87070; 87205; 89050; 93005; 94640; 96365; 96375; 99291

== ENCOUNTER 2019-03-08 10:29 | Inpatient (IN) | payer MEDICARE, BC ==
[2019-03-08 11:41] LABS: Anisocytosis Slight; Basophils # (A) 0.1 k/uL (0-0.2); Basophils % (A) 1 %; Eosinophils # (A) 0.1 k/uL (0-0.7); Eosinophils % (A) 1 %; HGB 10.5 gm/dL (11.4-16.0); Lymphocytes # (A) 0.3 k/uL (1.0-4.8); Lymphocytes % (A) 2 %; MCH 32.7 pg (25.0-35.0); MCHC 32.9 g/dL (31.0-37.0); MCV 99.4 fL (80.0-100.0); Macrocytosis Slight; Mean Platelet Volume 6.1; Monocytes # (A) 0.8 k/uL (0-1.0); Monocytes % (A) 6 %; Neutrophils # (A) 13.1 k/uL (1.3-7.7); Neutrophils % (A) 88 %; Platelet Count 211 k/uL (150-450); RBC 3.22 m/uL (3.80-5.40); RDW 16.5 % (11.5-15.5); WBC 14.9 k/uL (3.8-10.6)
[2019-03-08 11:50] LABS: Albumin 3.3 g/dL (3.5-5.0); Calcium 9.2 mg/dL (8.4-10.2); Potassium 5.5 mmol/L (3.5-5.1); Total Bilirubin 0.4 mg/dL (0.2-1.3)
[2019-03-08] MEDS ORDERED: SODIUM CHLORIDE 0.9% 500 ML 500 ML IV STA (11:56)
--- NOTE | 2019-03-08 12:01 | ED ---
General Adult HPI - General Chief complaint: Eye Problems Stated complaint: Loss of Vision Time Seen by Provider: 03/08/19 11:00 Source: EMS, RN notes reviewed Mode of arrival: EMS Limitations: altered mental status - History of Present Illness Initial comments: This is a 73-year-old female presents emergency department from a skilled nursing because she's unable to see out of either eye. Patient's skilled nursing stated that this started yesterday morning and today she was claiming she couldn't see at all. Patient denies headache patient denies any numbness or weakness in her extremities. Patient is extremely poor historian and the has no in formation to contribute as well. Patient denies any chest pain or palpitations. Patient denies any abdominal pain patient denies any fever chills. Patient denies any other problems at this time other than she cannot see. - Related Data Home Medications Medication Instructions Recorded Confirmed Omeprazole [PriLOSEC] 20 mg PO DAILY@0800 12/28/18 03/08/19 Ipratropium-Albuterol Nebulize 3 ml INHALATION RT-Q4H 01/27/19 03/08/19 [Duoneb 0.5 mg-3 mg/3 ml Soln] Budesonide/Formoterol Fumarate 2 puff INHALATION RT-BID 02/21/19 03/08/19 [Symbicort 160-4.5 Mcg Inhaler] Calcium Acetate [PhosLo] 667 mg PO AC-TID 02/21/19 03/08/19 Gentamicin 0.1% Cream 1 applic TOPICAL TID 02/21/19 03/08/19 Melatonin 1 mg PO HS 02/21/19 03/08/19 Acetaminophen Tab [Tylenol Tab] 650 mg PO TID 03/08/19 03/08/19 Amiodarone [Cordarone] 200 mg PO TID@0800,1200,1800 03/08/19 03/08/19 Metoprolol Tartrate [Lopressor] 75 mg PO BID 03/08/19 03/08/19 Previous Rx's Medication Instructions Recorded ALPRAZolam [Xanax] 0.25 mg PO Q8H PRN #9 tab 02/23/19 Allergies Allergy/AdvReac Type Severity Reaction Status Date / Time No Known Allergies Allergy Verified 03/08/19 10:49 Review of Systems ROS Statement: Those systems with pertinent positive or pertinent negative responses have been documented in the HPI. ROS Other: All systems not noted in ROS Statement are negative. Past Medical History Past Medical History: Atrial Fibrillation, Asthma, Heart Failure, COPD, CVA/TIA, Dementia, Dialysis, Eye Disorder, Hypertension, Osteoarthritis (OA), Pneumonia, Renal Disease, Syncope Additional Past Medical History / Comment(s): CVA 2005, ESRD, Dialysis cath inserted 02-02-18 gets dialysis , hemorrhagic stroke 2018 History of Any Multi-Drug Resistant Organisms: None Reported Past Surgical History: Tonsillectomy Additional Past Surgical History / Comment(s): ORIF rt ankle-[address], IUD removal, lumbar steroid injections, dental implants, cardioversion, dialysis cath. has ocl on l wrist, Past Anesthesia/Blood Transfusion Reactions: No Reported Reaction Additional Past Anesthesia/Blood Transfusion Reaction / Comment(s): Past blood transfusions - no reaction Past Psychological History: Anxiety Smoking Status: Former smoker Past Alcohol Use History: None Reported Past Drug Use History: None Reported - Past Family History Mother Family Medical History: No Reported History Additional Family Medical History / Comment(s): Mother in her 80s from abdominal aortic aneurysm. Father Family Medical History: Myocardial Infarction (MD) Additional Family Medical History / Comment(s): Father at age 52 from acute MD. General Exam - General Exam Comments Initial Comments: GENERAL: Patient is well-developed and well-nourished. Patient is nontoxic and well- hydrated and is in no acute distress. ENT: Neck is soft and supple. No significant lymphadenopathy is noted. Oropharynx is clear. Moist mucous membranes. Neck has full range of motion without eliciting any pain. EYES: The sclera were anicteric and conjunctiva were pink and moist. Eyelids were unremarkable. PULMONARY: Unlabored respirations. Good breath sounds bilaterally. No audible rales rhonchi or wheezing was noted. CARDIOVASCULAR: There is a regular rate and rhythm without any murmurs gallops or rubs. ABDOMEN: Soft and nontender with normal bowel sounds. No palpable organomegaly was noted. There is no palpable pulsatile mass. SKIN: Skin is clear with no lesions or rashes and otherwise unremarkable. NEUROLOGIC: Patient is alert and oriented 1. Patient is unable to follow my fingers with her eyes. Motor and sensory are also intact. Normal speech, volume and content. Symmetrical smile. Patient is unable to see out of either eye MUSCULOSKELETAL: Normal extremities with adequate strength and full range of motion. No lower extremity swelling or edema. No calf tenderness. LYMPHATICS: No significant lymphadenopathy is noted PSYCHIATRIC: Normal psychiatric evaluation. Limitations: altered mental status Course Vital Signs 03/08/19 03/08/19 03/08/19 10:41 11:30 11:36 Temperature 98.2 F Pulse Rate 111 H 69 98 Respiratory 18 19 22 Rate Blood Pressure 91/74 103/68 103/68 O2 Sat by Pulse 100 97 100 Oximetry Medical Decision Making - Medical Decision Making EKG shows atrial flutter at 92 bpm QRS is 126 QT interval 370 QTC is 457. Patient's EKG has significant ST segment depression with T-wave inversions in the leads V4 V5 and V6 which was seen on previous EKG. Patient had a CAT scan it showed a subacute left occipital areas stroke. I spoke with Dr. Bhandari and he was going to see look at the CT and CTA himself. I spoke with Dr. Hudson agreed to admit the patient admitted the patient I wrote admitting orders. Dr. Bhandari called back after he reviewed the CAT scan and CTA and he wanted the patient admitted and have an echo. Patient can also follow-up with him when she is discharged according to Dr. Bhandari - Lab Data Result diagrams: 03/08/19 11:13 03/08/19 11:13 Lab Results 03/08/19 03/08/19 03/08/19 Range/Units 11:13 11:13 11:13 WBC 14.9 H (3.8-10.6) k/uL RBC 3.22 L (3.80-5.40) m/uL Hgb 10.5 L (11.4-16.0) gm/dL Hct 32.0 L (34.0-46.0) % MCV 99.4 (80.0-100.0) fL MCH 32.7 (25.0-35.0) pg MCHC 32.9 (31.0-37.0) g/dL RDW 16.5 H (11.5-15.5) % Plt Count 211 (150-450) k/uL Neutrophils % 88 % Lymphocytes % 2 % Monocytes % 6 % Eosinophils % 1 % Basophils % 1 % Neutrophils # 13.1 H (1.3-7.7) k/uL Lymphocytes # 0.3 L (1.0-4.8) k/uL Monocytes # 0.8 (0-1.0) k/uL Eosinophils # 0.1 (0-0.7) k/uL Basophils # 0.1 (0-0.2) k/uL Anisocytosis Slight Macrocytosis Slight PT 9.8 (9.0-12.0) sec INR 0.9 (<1.2) APTT 24.4 (22.0-30.0) sec Sodium 125 L (137-145) mmol/L Potassium 5.5 H (3.5-5.1) mmol/L Chloride 86 L (98-107) mmol/L Carbon Dioxide 20 L (22-30) mmol/L Anion Gap 19 mmol/L BUN 71 H (7-17) mg/dL Creatinine 5.95 H (0.52-1.04) mg/dL Est GFR (CKD-EPI)AfAm 8 (>60 ml/min/1.73 sqM) Est GFR (CKD-EPI)NonAf 7 (>60 ml/min/1.73 sqM) Glucose 122 H (74-99) mg/dL Calcium 9.2 (8.4-10.2) mg/dL Total Bilirubin 0.4 (0.2-1.3) mg/dL AST 28 (14-36) U/L ALT 46 (9-52) U/L Alkaline Phosphatase 137 H (38-126) U/L Troponin I (0.000-0.034) ng/mL Total Protein 6.0 L (6.3-8.2) g/dL Albumin 3.3 L (3.5-5.0) g/dL 03/08/19 Range/Units 11:13 WBC (3.8-10.6) k/uL RBC (3.80-5.40) m/uL Hgb (11.4-16.0) gm/dL Hct (34.0-46.0) % MCV (80.0-100.0) fL MCH (25.0-35.0) pg MCHC (31.0-37.0) g/dL RDW (11.5-15.5) % Plt Count (150-450) k/uL Neutrophils % % Lymphocytes % % Monocytes % % Eosinophils % % Basophils % % Neutrophils # (1.3-7.7) k/uL Lymphocytes # (1.0-4.8) k/uL Monocytes # (0-1.0) k/uL Eosinophils # (0-0.7) k/uL Basophils # (0-0.2) k/uL Anisocytosis Macrocytosis PT (9.0-12.0) sec INR (<1.2) APTT (22.0-30.0) sec Sodium (137-145) mmol/L Potassium (3.5-5.1) mmol/L Chloride (98-107) mmol/L Carbon Dioxide (22-30) mmol/L Anion Gap mmol/L BUN (7-17) mg/dL Creatinine (0.52-1.04) mg/dL Est GFR (CKD-EPI)AfAm (>60 ml/min/1.73 sqM) Est GFR (CKD-EPI)NonAf (>60 ml/min/1.73 sqM) Glucose (74-99) mg/dL Calcium (8.4-10.2) mg/dL Total Bilirubin (0.2-1.3) mg/dL AST (14-36) U/L ALT (9-52) U/L Alkaline Phosphatase (38-126) U/L Troponin I 0.215 H* (0.000-0.034) ng/mL Total Protein (6.3-8.2) g/dL Albumin (3.5-5.0) g/dL Disposition Clinical Impression: CVA (cerebral vascular accident) Disposition: ADMITTED IP TO THIS [facility] Referrals: Soren Desai MD [Primary Care Provider] - 1-2 days Time of Disposition: 14:15
[2019-03-08 12:10] LABS: INR 0.9 (<1.2); Partial Thromboplastin Time 24.4 sec (22.0-30.0); Prothrombin Time 9.8 sec (9.0-12.0)
--- NOTE | 2019-03-08 12:31 | CT ---
EXAMINATION TYPE: CT brain wo con for TPA DATE OF EXAM: 03/08/2019 COMPARISON: 02/21/2019 HISTORY: 73-year-old female vision loss TECHNIQUE: Examination was done in axial plane without intravenous contrast. Coronal reconstructions performed. CT DLP: 1094.4 mGycm Automated exposure control for dose reduction was used. FINDINGS: New cortical and subcortical hypodensity within the left occipital lobe and left parieto-occipital ju nction with associated sulcal effacement. Old encephalomalacia anterior right frontal lobe related to prior infarct. Severe confluent white mat ter hypodensities persist in both cerebral hemispheres. No acute intracranial hemorrhage or midline shift. There is no evidence of acute intracranial hemorrhage, mass, or extra-axial fluid collection. There is no effacement of cerebral sulci or basal subarachnoid cisterns. There is no hydrocephalus. Ther e is no midline shift. Jaeger-white matter distinction is preserved. Calcifications right cerebellar h emisphere. Visualized paranasal sinuses and mastoid air cells are well pneumatized. Orbits and globes appear int act. IMPRESSION: 1. Acute left occipital lobe and left occipitoparietal junction infarct. The degree of hypodensity mccoy ggests that this is greater than 6 hours in duration. Clinically correlate. No hemorrhagic transforma tion or midline shift. 2. Old right frontal lobe infarct and severe confluent changes of chronic small vessel ischemic disea se.
--- NOTE | 2019-03-08 12:32 | XR ---
EXAMINATION TYPE: XR chest 2V DATE OF EXAM: 03/08/2019 COMPARISON: 02/22/2019 HISTORY: 73-year-old female with confusion, altered mental status TECHNIQUE: The and lateral views FINDINGS: Heart mildly enlarged. Mild interstitial prominence is unchanged. Redemonstrated nodule at the right base which seems to correspond to nipple shadow. No consolidation or pleural effusion. Some pleural p arenchymal scarring at the left apex is unchanged. IMPRESSION: Mild cardiomegaly and chronic appearing changes. Suspect right basilar nipple shadow. No acute proces s seen.
--- NOTE | 2019-03-08 14:02 | CT ---
EXAMINATION TYPE: CT angio head neck DATE OF EXAM: 03/08/2019 COMPARISON: CT brain same day HISTORY: 73-year-old female acute stroke per scan today TECHNIQUE: Contiguous axial scanning of the head and neck performed with IV Contrast, patient injecte d with 65 mL of Isovue 370. Coronal/sagittal MIP reconstructions performed. 3-D reconstructions gener ated on a dedicated independent workstation. CT DLP: 355.4 mGycm Automated exposure control for dose reduction was used. FINDINGS: Neck: Emphysema in the visualized upper lungs. Ectatic aortic arch is 3.5 cm. Scattered moderate to severe atherosclerotic calcifications are present throughout. There is variant direct takeoff of the left vertebral artery directly from the aortic arch with segme ntal areas of moderate atherosclerotic narrowing of the proximal portion. Additional moderate atheros clerotic calcification at the C1/C2 junction left vertebral artery. The origin of the brachiocephalic artery and left common carotid artery is excluded from view and not evaluated. Moderate atherosclerotic narrowing at the proximal right subclavian artery. Mild to moderate atherosclerotic plaque and calcification throughout the left common carotid artery w ith approximately 50% stenosis of the distal left common carotid artery. Additional atherosclerotic c hange at the bifurcation with a moderate, approximately 60% stenosis at the level of the left carotid bulb. Right common carotid artery shows mild atelectatic calcifications throughout and more extensive ather osclerotic plaque and calcification at the bifurcation resulting in a 70% stenosis at the level of th e right carotid bulb. The bifurcation is located approximately 2.8 cm below the angle of the mandible . However, it has a retropharyngeal location. Head: Scattered mild atherosclerotic calcifications within the vertebral arteries. Both vertebral and basil ar arteries are patent. Persistent origin of the right posterior cerebral artery. Moderate atherosclerotic calcifications within the bilateral carotid siphons. No significant stenosis or arterial occlusion is seen within the anterior posterior circulation. No aneurysmal change. IMPRESSION: NECK: 1. Note that the origin of the brachiocephalic and left common carotid arteries are excluded from vie w. 2. Variant direct takeoff of the left vertebral artery directly from the aortic arch with segments of moderate atherosclerotic narrowing along its proximal portion. 3. Mild to moderate atherosclerotic change throughout the bilateral carotid systems. On the left, the re is a 50% stenosis in the distal left common carotid artery. There is also a moderate, approximatel y 60% stenosis in the left carotid bulb. 4. More extensive atherosclerotic change at the right bifurcation with a severe, just over 70% stenos is at the right carotid bulb. Note that the right carotid bifurcation has a retropharyngeal location. HEAD: 1. Normal variation anatomy with persistent origin of the right posterior cerebral artery. 2. Moderate atherosclerotic calcifications within the bilateral carotid siphons. 3. No large vessel intracranial arterial occlusion or aneurysmal change.
[2019-03-08] MEDS ORDERED: ASPIRIN 325 MG TAB PO STA (14:15)
[2019-03-08] MEDS ORDERED: CLOPIDOGREL 75 MG TAB PO STA (14:30)
[2019-03-08] MEDS ORDERED: ATORVASTATIN 80 MG TAB PO STA (14:30)
[2019-03-08] MEDS: IPRATROPIUM-ALBUTEROL 3 ML NEB INHALATION SCH ×3 (17:02→19:37)
[2019-03-08 17:42] VITALS: BMI 21.3
[2019-03-08] MEDS: CALCIUM ACETATE 667 MG CAP PO SCH (19:01)
[2019-03-08] MEDS: ACETAMINOPHEN TAB 325 MG TAB PO SCH ×2 (19:02→23:45)
[2019-03-08] MEDS: AMIODARONE 200 MG TAB PO SCH (19:02)
[2019-03-08] MEDS: SYMBICORT 160-4.5 MCG INHALER INHALATION SCH (19:37)
[2019-03-08] MEDS: ALPRAZolam 0.25 MG TAB PO PRN (20:20)
[2019-03-08] MEDS: METOPROLOL TARTRATE 25 MG TAB PO SCH (20:20)
[2019-03-08] MEDS: MELATONIN 1 MG TAB PO SCH (23:45)
--- NOTE | 2019-03-08 23:54 | P.HPIM ---
History of Present Illness H&P Date: 03/08/19 Chief Complaint: Unable to see History of presenting complaint: This is a 73-year-old patient with extensive medical history as chronic stable medical conditions include COPD, end-stage kidney disease on peritoneal dialysis, hypertensive heart disease, proximal atrial fibrillation, chronic rheumatoid arthritis, hyperlipidemia, mineral bone disease from chronic kidney disease, anemia of chronic kidney disease, secondary pulmonary hypertension, lateral chronic renal artery stenosis, chronic congestive heart failure from diastolic dysfunction EF 55-60%. Patient also had acute intraparenchymal hemorrhage in the right mid cerebral hemisphere on February 03 requiring tra nsfer to [facility],. Patientis currently a resident of [facility]. Patient presented after she suddenly could not see. Can only see some hand movements. Unable to see any light. Denies any headache. No focal weakness. Practically ER. Computed tomography scan of the brain showed acute left occipital lobe and left occipital parietal junction infarct. Does no hemorr hagic transformation. Neurology was consulted. at the bedside. Review of systems cannot be done. As patient cannot communicate much. Past medical history to include as above Social history: Currently a resident of [facility]. Patient smoked a pack and half of cigarettes from 1973 through 2007. Patient did drink heavily in the past. . Physical examination: VITAL SIGNS: 98.2, 69, 90, 103/68, 97% on 2 L,] GENERAL: BMI 21.3, laying in bed, but anxious. EYES: Pupils equal. Conjunctiva normal. HEENT: External appearance of nose and ears normal, oral cavity grossly normal. NECK: JVD unable to assess; masses not palpable. HEART: First and second heart sounds are normal; no edema. LUNGS: Respiratory rate normal; decreased breath sound. ABDOMEN: Soft, PT catheter in place, nontender, liver spleen not palpable, no masses palpable. PSYCH: [Patient answering some questions l. NEUROLOGICAL: Patient's vision is down to move out of the hands, otherwise going all 4 limbs sensation grossly preserved. LYMPHATICS: No lymph nodes palpable in the axilla and neck INVESTIGATIONS, reviewed in the clinical context: White count 14.8 hemoglobin 10.5 potassium 5.5 bun 71 creatine 5.95 EKG tracing personally reviewed by me--personally reviewed by me shows atrial flutter with some ST segment changes CT angiogram of the brain-possible stenosis of the carotid arteries Chest x-ray film personally reviewed by me-lung caceres are clear some cardiomegaly Computed tomography scan of brain-acute left occipital lobe and left occipitoparietal junction infarct. Assessment: -Acute stroke possibly embolic in the left occipital lobe and left occipitoparietal junction infarct -COPD in an ex-smoker, -end-stage kidney disease on peritoneal dialysis, - hypertensive heart disease, -Paroxysmal atrial flutter atrial fibrillation, - chronic rheumatoid arthritis, - hyperlipidemia, - mineral bone disease from chronic kidney disease, - anemia of chronic kidney disease, - secondary pulmonary hypertension, -Bilateral chronic renal artery stenosis, -chronic congestive heart failure from diastolic dysfunction EF 55-60%. - acute intraparenchymal hemorrhage in the right mid cerebral hemisphere on February 03 requiring transfer to [facility], -Code full Plan: Home medications resumed. Care was discussed with the at the bedside. Prognosis guarded. Patient cannot be on anticoagulation because of recent cerebral bleed. Neurology was consulted. Neuro checks in place. Did talk to patient . CODE STATUS is full code. Nephrology consulted for PD dialysis orders. Past Medical History Past Medical History: Atrial Fibrillation, Asthma, Heart Failure, COPD, CVA/TIA, Dementia, Dialysis, Eye Disorder, Hypertension, Osteoarthritis (OA), Pneumonia, Renal Disease, Syncope Additional Past Medical History / Comment(s): CVA 2005, ESRD, Dialysis cath inserted 02-02-18 gets dialysis , hemorrhagic stroke 2018 History of Any Multi-Drug Resistant Organisms: None Reported Past Surgical History: Tonsillectomy Additional Past Surgical History / Comment(s): ORIF rt ankle-[address], IUD removal, lumbar steroid injections, dental implants, cardioversion, dialysis cath. has ocl on l wrist, Past Anesthesia/Blood Transfusion Reactions: No Reported Reaction Additional Past Anesthesia/Blood Transfusion Reaction / Comment(s): Past blood transfusions - no reaction Past Psychological History: Anxiety Smoking Status: Former smoker Past Alcohol Use History: None Reported Additional Past Alcohol Use History / Comment(s): Patient smoked one and half packs of cigarettes per day started in 1973 and quit 2007. Patient used to drink heavily-none now Past Drug Use History: None Reported - Past Family History Mother Family Medical History: No Reported History Additional Family Medical History / Comment(s): Mother in her 80s from abdominal aortic aneurysm. Father Family Medical History: Myocardial Infarction ([place]) Additional Family Medical History / Comment(s): Father at age 52 from acute [place]. Medications and Allergies Home Medications Medication Instructions Recorded Confirmed Type Omeprazole [PriLOSEC] 20 mg PO DAILY@0800 12/28/18 03/08/19 History Ipratropium-Albuterol Nebulize 3 ml INHALATION RT-Q4H 01/27/19 03/08/19 History [Duoneb 0.5 mg-3 mg/3 ml Soln] Budesonide/Formoterol Fumarate 2 puff INHALATION RT-BID 02/21/19 03/08/19 History [Symbicort 160-4.5 Mcg Inhaler] Calcium Acetate [PhosLo] 667 mg PO AC-TID 02/21/19 03/08/19 History Gentamicin 0.1% Cream 1 applic TOPICAL TID 02/21/19 03/08/19 History Melatonin 1 mg PO HS 02/21/19 03/08/19 History ALPRAZolam [Xanax] 0.25 mg PO Q8H PRN #9 tab 02/23/19 03/08/19 Rx Acetaminophen Tab [Tylenol Tab] 650 mg PO TID 03/08/19 03/08/19 History Amiodarone [Cordarone] 200 mg PO TID@0800,1200,1800 03/08/19 03/08/19 History Metoprolol Tartrate [Lopressor] 75 mg PO BID 03/08/19 03/08/19 History Allergies Allergy/AdvReac Type Severity Reaction Status Date / Time No Known Allergies Allergy Verified 03/08/19 10:49 Physical Exam Vitals: Vital Signs Temp Pulse Pulse Resp BP BP Pulse Ox 03/08/19 20:00 97.1 F L 67 18 110/58 100 03/08/19 19:04 66 22 110/58 100 03/08/19 16:00 73 20 102/73 98 03/08/19 15:00 98.0 F 82 18 102/73 99 03/08/19 14:23 64 17 132/82 99 03/08/19 14:01 70 18 117/82 100 03/08/19 13:30 80 18 105/66 99 03/08/19 12:30 82 17 110/72 99 03/08/19 11:36 98 22 103/68 100 03/08/19 11:30 69 19 103/68 97 03/08/19 10:41 98.2 F 111 H 18 91/74 100 Intake and Output 03/08/19 03/08/19 03/09/19 14:59 22:59 06:59 Other: Voiding Method CAPD # Voids 0 Weight 52.844 kg Results CBC & Chem 7: 03/08/19 11:13 03/08/19 11:13 Labs: Abnormal Lab Results - Last 24 Hours (Table) 03/08/19 03/08/19 03/08/19 Range/Units 11:13 11:13 11:13 WBC 14.9 H (3.8-10.6) k/uL RBC 3.22 L (3.80-5.40) m/uL Hgb 10.5 L (11.4-16.0) gm/dL Hct 32.0 L (34.0-46.0) % RDW 16.5 H (11.5-15.5) % Neutrophils # 13.1 H (1.3-7.7) k/uL Lymphocytes # 0.3 L (1.0-4.8) k/uL Sodium 125 L (137-145) mmol/L Potassium 5.5 H (3.5-5.1) mmol/L Chloride 86 L (98-107) mmol/L Carbon Dioxide 20 L (22-30) mmol/L BUN 71 H (7-17) mg/dL Creatinine 5.95 H (0.52-1.04) mg/dL Glucose 122 H (74-99) mg/dL Alkaline Phosphatase 137 H (38-126) U/L Troponin I 0.215 H* (0.000-0.034) ng/mL Total Protein 6.0 L (6.3-8.2) g/dL Albumin 3.3 L (3.5-5.0) g/dL Thrombosis Risk Factor Assmnt - Choose All That Apply Each Factor Represents 1 point: Abnormal pulmonary function (COPD), Heart failure (<1month), Medical pt on bed rest Each Risk Factor Represents 2 Points: Age 61-74 years Other congenital or acquired thrombophilia - If yes, enter type in comment: No Thrombosis Risk Factor Assessment Total Risk Factor Score: 5 Thrombosis Risk Factor Assessment Level: High Risk
[2019-03-08] MEDS: DIALYSIS (PERIT 1.5%) 2,000 ML 30 G/2,000 ML BAG INTRAPERIT SCH (23:56)
[2019-03-09] MEDS: IPRATROPIUM-ALBUTEROL 3 ML NEB INHALATION SCH ×7 (01:10→23:35)
[2019-03-09] MEDS: DIALYSIS (PERIT 1.5%) 2,000 ML 30 G/2,000 ML BAG INTRAPERIT SCH ×3 (05:06→17:41)
[2019-03-09] MEDS: CALCIUM ACETATE 667 MG CAP PO SCH ×3 (06:07→18:48)
[2019-03-09] MEDS: SYMBICORT 160-4.5 MCG INHALER INHALATION SCH ×2 (07:08→20:35)
[2019-03-09 09:10] LABS: Cholesterol 160 mg/dL (<200); HDL Cholesterol 51 mg/dL (40-60); LDL Cholesterol,Calculated 74 mg/dL (0-99); Triglycerides 177 mg/dL (<150)
--- NOTE | 2019-03-09 10:01 | ECHOF ---
Referral Reason:Stroke MEASUREMENTS -------- HEIGHT: 157.5 cm WEIGHT: 52.6 kg BP: 128/85 RVIDd: 2.7 cm (< 3.3) IVSd: 1.4 cm (0.6 - 1.1) LVIDd: 3.9 cm (3.9 - 5.3) LVPWd: 1.4 cm (0.6 - 1.1) IVSs: 1.9 cm LVIDs: 2.4 cm LVPWs: 1.7 cm LA Diam: 3.7 cm (2.7 - 3.8) Ao Diam: 3.1 cm (2.0 - 3.7) AV Cusp: 1.6 cm (1.5 - 2.6) MV EXCURSION: 15.488 mm (> 18.000) MV EF SLOPE: 90 mm/s (70 - 150) EPSS: 0.4 cm RAP: 5.00 mmHg RVSP: 34.67 mmHg FINDINGS -------- Undetermined rhythm. This was a technically good study. The left ventricular size is normal. There is moderate concentric left ventricular hypertrophy. O verall left ventricular systolic function is low-normal with, an EF between 50 - 55 %. The right ventricle is normal in size. The left atrial size is normal. The right atrium is normal in size. Interatrial and interventricular septum intact. Aortic valve is trileaflet and is moderately thickened. The mitral valve leaflets are mildly thickened. Mild mitral regurgitation is present. Mild tricuspid regurgitation present. There is mild pulmonary hypertension. The right ventricular systolic pressure, as measured by Doppler, is 34.67mmHg. Trace/mild (physiologic) pulmonic regurgitation. The aortic root size is normal. Normal inferior vena cava with normal inspiratory collapse consistent with estimated right atrial pre ssure of 5 mmHg. There is no pericardial effusion. CONCLUSIONS -------- 1. Undetermined rhythm. 2. This was a technically good study. 3. The left ventricular size is normal. 4. There is moderate concentric left ventricular hypertrophy. 5. Overall left ventricular systolic function is low-normal with, an EF between 50 - 55 %. 6. The right ventricle is normal in size. 7. The left atrial size is normal. 8. The right atrium is normal in size. 9. Interatrial and interventricular septum intact. 10. Aortic valve is trileaflet and is moderately thickened. 11. The mitral valve leaflets are mildly thickened. 12. Mild mitral regurgitation is present. 13. Mild tricuspid regurgitation present. 14. There is mild pulmonary hypertension. 15. The right ventricular systolic pressure, as measured by Doppler, is 34.67mmHg. 16. Trace/mild (physiologic) pulmonic regurgitation. 17. The aortic root size is normal. 18. Normal inferior vena cava with normal inspiratory collapse consistent with estimated right atrial pressure of 5 mmHg. 19. There is no pericardial effusion. INJECTION MOLDING MACHINE TENDER: Simran Faulkner RDCS
--- NOTE | 2019-03-09 10:44 | P.NPCON ---
History of Present Illness - Reason for Consult end stage renal disease - History of Present Illness Reason for consultation: End-stage renal disease History of present illness: Patient is a 73-year-old female seen in consultation for end-stage renal disease. She is maintained on peritoneal dialysis. Patient presented from an extended care facility due to impaired vision. Patient states she wasn't able to see from either eye. Currently she feels better and states that she does have vision. Patient's brain CT revealed acute left occipital and left occipitoparietal junction infarct. She also underwent angiogram of the head and neck which revealed atherosclerotic calcifications. Echocardiogram revealed preserved ejection fraction. No evidence of fluid overload noted on chest x- ray. Hemodynamically she's been stable. Blood pressure is well controlled. No fever or chills. No vomiting or diarrhea. No issues with peritoneal dialysis. Vital signs are stable. General: The patient appeared well nourished and normally developed. HEENT: Head exam is unremarkable. Neck is without jugular venous distension. LUNGS: Lungs are clear to auscultation and percussion. Breath sounds decreased. HEART: Rate and Rhythm are regular. First and second heart sounds normal. No murmurs, rubs or gallops. ABDOMEN: Abdominal exam reveals normal bowel sounds. Non-tender and non- distended. No evidence of peritonitis. EXTREMITITES: No clubbing, cyanosis, or edema. Past Medical History Past Medical History: Atrial Fibrillation, Asthma, Heart Failure, COPD, CVA/TIA, Dementia, Dialysis, Eye Disorder, Hypertension, Osteoarthritis (OA), Pneumonia, Renal Disease, Syncope Additional Past Medical History / Comment(s): CVA 2005, ESRD, Dialysis cath inserted 02-02-18 gets dialysis , hemorrhagic stroke 2018 History of Any Multi-Drug Resistant Organisms: None Reported Past Surgical History: Tonsillectomy Additional Past Surgical History / Comment(s): ORIF rt ankle-[address], IUD removal, lumbar steroid injections, dental implants, cardioversion, dialysis cath. has ocl on l wrist, Past Anesthesia/Blood Transfusion Reactions: No Reported Reaction Additional Past Anesthesia/Blood Transfusion Reaction / Comment(s): Past blood transfusions - no reaction Past Psychological History: Anxiety Smoking Status: Former smoker Past Alcohol Use History: None Reported Additional Past Alcohol Use History / Comment(s): Patient smoked one and half packs of cigarettes per day started in 1973 and quit 2007. Patient used to drink heavily-none now Past Drug Use History: None Reported - Past Family History Mother Family Medical History: No Reported History Additional Family Medical History / Comment(s): Mother in her 80s from abdominal aortic aneurysm. Father Family Medical History: Myocardial Infarction ([place]) Additional Family Medical History / Comment(s): Father at age 52 from acute [place]. Medications and Allergies Home Medications Medication Instructions Recorded Confirmed Type Omeprazole [PriLOSEC] 20 mg PO DAILY@0800 12/28/18 03/08/19 History Ipratropium-Albuterol Nebulize 3 ml INHALATION RT-Q4H 01/27/19 03/08/19 History [Duoneb 0.5 mg-3 mg/3 ml Soln] Budesonide/Formoterol Fumarate 2 puff INHALATION RT-BID 02/21/19 03/08/19 History [Symbicort 160-4.5 Mcg Inhaler] Calcium Acetate [PhosLo] 667 mg PO AC-TID 02/21/19 03/08/19 History Gentamicin 0.1% Cream 1 applic TOPICAL TID 02/21/19 03/08/19 History Melatonin 1 mg PO HS 02/21/19 03/08/19 History ALPRAZolam [Xanax] 0.25 mg PO Q8H PRN #9 tab 02/23/19 03/08/19 Rx Acetaminophen Tab [Tylenol Tab] 650 mg PO TID 03/08/19 03/08/19 History Amiodarone [Cordarone] 200 mg PO TID@0800,1200,1800 03/08/19 03/08/19 History Metoprolol Tartrate [Lopressor] 75 mg PO BID 03/08/19 03/08/19 History Allergies Allergy/AdvReac Type Severity Reaction Status Date / Time No Known Allergies Allergy Verified 03/08/19 10:49 Physical Exam Vitals: Vital Signs Temp Pulse Pulse Resp BP BP Pulse Ox 03/09/19 08:12 98.2 F 73 16 115/80 03/09/19 07:20 66 03/09/19 07:10 65 03/09/19 04:00 97.8 F 82 17 128/85 100 03/09/19 00:00 97.8 F 65 17 118/74 99 03/08/19 23:23 98.0 F 65 17 118/74 99 03/08/19 21:23 97.1 F L 67 18 110/58 100 03/08/19 20:00 97.1 F L 67 18 115/62 100 03/08/19 19:04 66 22 110/58 100 03/08/19 16:00 73 20 102/73 98 03/08/19 15:00 98.0 F 82 18 102/73 99 03/08/19 14:23 64 17 132/82 99 03/08/19 14:01 70 18 117/82 100 03/08/19 13:30 80 18 105/66 99 03/08/19 12:30 82 17 110/72 99 03/08/19 11:36 98 22 103/68 100 03/08/19 11:30 69 19 103/68 97 03/08/19 10:41 98.2 F 111 H 18 91/74 100 Intake and Output 03/08/19 03/09/19 03/09/19 22:59 06:59 14:59 Other: Voiding Method CAPD CAPD CAPD # Voids 0 0 Results - Lab Results Most recent lab results Calcium 9.2 mg/dL (8.4-10.2) 03/08/19 11:13 03/08/19 11:13 03/08/19 11:13 Assessment and Plan Plan: Assessment: 1. End-stage renal disease maintained on peritoneal dialysis. 2. Acute left occipital lobe and left occipitoparietal junction infarct. Currently on aspirin and Plavix and statin. Neurology consulted. 3. Hypertension with chronic kidney disease. Controlled. 4. Chronic kidney disease mineral bone disease maintained on PhosLo. 5. Hyponatremia secondary to chronic disease. 6. Metabolic acidosis secondary to chronic kidney disease. 7. Anemia of chronic kidney disease. Hemoglobin at goal. 8. Chronic A. fib. Plan: Maintain current peritoneal dialysis exchanges. Check labs today. Thank you for the consultation. I will continue to follow the patient with you during her hospital stay.
[2019-03-09] MEDS: METOPROLOL TARTRATE 25 MG TAB PO SCH ×2 (11:13→21:01)
[2019-03-09] MEDS: PANTOPRAZOLE 40 MG TABLET PO SCH (11:13)
[2019-03-09] MEDS: CLOPIDOGREL 75 MG TAB PO SCH (11:14)
[2019-03-09] MEDS: ASPIRIN 325 MG TAB PO SCH (11:14)
[2019-03-09] MEDS: ATORVASTATIN 80 MG TAB PO SCH (11:14)
[2019-03-09] MEDS: AMIODARONE 200 MG TAB PO SCH ×3 (11:14→21:01)
[2019-03-09] MEDS: ACETAMINOPHEN TAB 325 MG TAB PO SCH ×2 (11:15→16:24)
[2019-03-09 11:52] LABS: Glucose,Whole Blood 103 mg/dL (75-99)
[2019-03-09 12:20] LABS: Calcium 8.6 mg/dL (8.4-10.2); Potassium 5.5 mmol/L (3.5-5.1)
--- NOTE | 2019-03-09 12:45 | P.CNNES ---
History of Present Illness Consult date: 03/09/19 Requesting physician: Darío Zapata Reason for Consult: CVA History of Present Illness: Patient is a 73-year-old female with history of dementia, currently living at [facility] was brought to the hospital yesterday morning after she was noted to have decreased vision. According to electronic medical records, it was reported her symptoms started 1 day prior to arrival to the ER, but got worse on the day of arrival. However patient states that she has been having problems with her vision for almost a week, she did not tell anybody. Yesterday it got worse. Patient underwent CT of the head, which revealed acute left occipital lobe and left occipital parietal junction infarct. The degree of hypodensity suggested us is greater than 6 hours in duration. No hemorrhagic transformation or midline shift. Old right frontal lobe infarct and severe confluent changes of chronic small vessel ischemic disease. CTA of the head showed normal variation anatomy with persistent origin of the right [employer] EQU[employer]MENT REPA[employer]ER. Moderate atherosclerotic calcifications within the bilateral carotid siphons. No large vessel intracranial arterial occlusion or aneurysmal change. CTA of the neck showed variant direct takeoff of the left vertebral artery directly from the aortic arch with segments of moderate atherosclerotic narrowing along his proximal portion. Mild to moderate atherosclerotic changes throughout the bilateral carotid system. On the left, there is 50% stenosis in the distal left common carotid artery. There is also a moderate, approximately 60% stenosis in the left carotid bulb. Moderate extensive atherosclerotic change at the right bifurcation with severe, just over 70% stenosis at the right carotid bulb. Note that the right carotid bifurcation has a retropharyngeal location. Patient underwent 2-D echo which revealed undetermined rhythm. EF is 50-55%. Moderate concentric LVH. Left atrial size is normal. EKG showed atrial flutter with variable AV block. Left ventricle hypertrophy with QRS widening and repolarization abnormality. Chest x-ray showed mild cardiomegaly and chronic a ppearing changes. Suspect right basilar nipple shadow. No acute process seen. Patient recently suffered from small intraparenchymal hemorrhage on 01/28/2019, involving the right mid cerebellar hemisphere measuring 7 mm with no midline shift. Patient was transferred to [facility]. On reviewing records, patient was on Apixaban 2.5 mg twice a day at that time. Patient was readmitted on 02/22/2019, and apparently at that time she was not on any anticoagulants or any antiplatelet medication. Her current home medications also does not list any antiplatelets or anticoagulants. Patient's carotid Doppler from 06/01/2018 showed severe atherosclerotic change bilaterally, suspected bilateral hemodynamically clinically significant stenosis. Advised CTA or MRA of the neck. Review of Systems Denies headache. Complains of vision loss. Arthritis. Denies chest pain shortness of breath. Denies nausea vomiting diarrhea. Denies abdominal pain. All other review of systems noncontributory. Past Medical History Past Medical History: Atrial Fibrillation, Asthma, Heart Failure, COPD, CVA/TIA, Dementia, Dialysis, Eye Disorder, Hypertension, Osteoarthritis (OA), Pneumonia, Renal Disease, Syncope Additional Past Medical History / Comment(s): CVA 2005, ESRD, Dialysis cath inserted 02-02-18 gets dialysis , hemorrhagic stroke 2018 History of Any Multi-Drug Resistant Organisms: None Reported Past Surgical History: Tonsillectomy Additional Past Surgical History / Comment(s): ORIF rt ankle-[address], IUD removal, lumbar steroid injections, dental implants, cardioversion, dialysis cath. has ocl on l wrist, Past Anesthesia/Blood Transfusion Reactions: No Reported Reaction Additional Past Anesthesia/Blood Transfusion Reaction / Comment(s): Past blood transfusions - no reaction Past Psychological History: Anxiety Smoking Status: Former smoker Past Alcohol Use History: None Reported Additional Past Alcohol Use History / Comment(s): Patient smoked one and half packs of cigarettes per day started in 1973 and quit 2007. Patient used to drink heavily-none now Past Drug Use History: None Reported - Past Family History Mother Family Medical History: No Reported History Additional Family Medical History / Comment(s): Mother in her 80s from abdominal aortic aneurysm. Father Family Medical History: Myocardial Infarction (MD) Additional Family Medical History / Comment(s): Father at age 52 from acute MD. Medications and Allergies Home Medications Medication Instructions Recorded Confirmed Type Omeprazole [PriLOSEC] 20 mg PO DAILY@0800 12/28/18 03/08/19 History Ipratropium-Albuterol Nebulize 3 ml INHALATION RT-Q4H 01/27/19 03/08/19 History [Duoneb 0.5 mg-3 mg/3 ml Soln] Budesonide/Formoterol Fumarate 2 puff INHALATION RT-BID 02/21/19 03/08/19 History [Symbicort 160-4.5 Mcg Inhaler] Calcium Acetate [PhosLo] 667 mg PO AC-TID 02/21/19 03/08/19 History Gentamicin 0.1% Cream 1 applic TOPICAL TID 02/21/19 03/08/19 History Melatonin 1 mg PO HS 02/21/19 03/08/19 History ALPRAZolam [Xanax] 0.25 mg PO Q8H PRN #9 tab 02/23/19 03/08/19 Rx Acetaminophen Tab [Tylenol Tab] 650 mg PO TID 03/08/19 03/08/19 History Amiodarone [Cordarone] 200 mg PO TID@0800,1200,1800 03/08/19 03/08/19 History Metoprolol Tartrate [Lopressor] 75 mg PO BID 03/08/19 03/08/19 History Allergies Allergy/AdvReac Type Severity Reaction Status Date / Time No Known Allergies Allergy Verified 03/08/19 10:49 Physical Examination - Vital Signs Vital Signs: Vital Signs Temp Pulse Pulse Resp BP BP Pulse Ox 03/09/19 08:12 98.2 F 73 16 115/80 03/09/19 07:20 66 03/09/19 07:10 65 03/09/19 04:00 97.8 F 82 17 128/85 100 03/09/19 00:00 97.8 F 65 17 118/74 99 03/08/19 23:23 98.0 F 65 17 118/74 99 03/08/19 21:23 97.1 F L 67 18 110/58 100 03/08/19 20:00 97.1 F L 67 18 115/62 100 03/08/19 19:04 66 22 110/58 100 03/08/19 16:00 73 20 102/73 98 03/08/19 15:00 98.0 F 82 18 102/73 99 03/08/19 14:23 64 17 132/82 99 03/08/19 14:01 70 18 117/82 100 03/08/19 13:30 80 18 105/66 99 03/08/19 12:30 82 17 110/72 99 Intake and Output 03/08/19 03/09/19 03/09/19 22:59 06:59 14:59 Other: Voiding Method CAPD CAPD CAPD # Voids 0 0 On examination patient is an elderly female, laying comfortably in the bed, although her back is itching constantly. Patient thinks it is August, and could not tell the year or the state or city she lives in. She thinks she is in her home right now. When I prompt given prompts, she was able to tell she is in the state of [place] but the city is [place]. She was able to tell name of the current president Mr. Becerril. Speech and language functions appears normal. Patient has bilaterally positive palmomental reflex. On cranial nerve examination pupils are round and reacting. Patient is legally blind, with bilateral hemianopsia. Face is symmetric and tongue protrudes the midline. Muscle strength shows mild weakness on the left as compared to the right. Reflexes are 1 in the right side, 2+ on the left. Patient has Babinski only on the left side. Tone is slightly increased in the left. Bulk of muscles overall decreased. Results Patient's INR is 0.9, PTT 24.4. Hemoglobin A1c 5.7 on 01/25/2019. Liver panel normal. Ammonia normal. Troponin is mildly elevated 0.215. Total cholesterol 160, LDL 74, HDL 51. B12 is 493. RBC folate normal. - Laboratory Findings CBC and BMP: 03/08/19 11:13 03/08/19 11:13 Abnormal Lab Findings: Abnormal Labs 03/08/19 03/08/19 03/08/19 11:13 11:13 11:13 WBC 14.9 H RBC 3.22 L Hgb 10.5 L Hct 32.0 L RDW 16.5 H Neutrophils # 13.1 H Lymphocytes # 0.3 L Sodium 125 L Potassium 5.5 H Chloride 86 L Carbon Dioxide 20 L BUN 71 H Creatinine 5.95 H Glucose 122 H POC Glucose (mg/dL) Alkaline Phosphatase 137 H Troponin I 0.215 H* Total Protein 6.0 L Albumin 3.3 L Triglycerides 03/09/19 03/09/19 05:36 11:50 WBC RBC Hgb Hct RDW Neutrophils # Lymphocytes # Sodium Potassium Chloride Carbon Dioxide BUN Creatinine Glucose POC Glucose (mg/dL) 103 H Alkaline Phosphatase Troponin I Total Protein Albumin Triglycerides 177 H Assessment and Plan Assessment: * Acute to subacute ischemic stroke involving the left occipital lobe and left occipitoparietal junction. Her stroke would be cardioembolic from atrial fi brillation, but could also be thromboembolic from significant vertebral artery atherosclerotic disease. 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 * Right ICA stenosis just over 70%, per CTA report. * Atrial fibrillation, currently not on anticoagulation. * Recent history of right cerebellar hemorrhage on 01/28/2019, requiring no surgical treatment. * Vascular dementia Plan: * Agree with starting aspirin and Plavix for stroke prevention. Anticoagulation relatively contraindicated because of recent history of intraparenchymal hemorrhage on 01/28/2019, while being on Apixaban 2.5 mg twice a day. * Patient had a 2-D echo performed today, which revealed no obvious embolic so urce, although patient does have atrial fibrillation, which is a stroke risk factor. At this time anticoagulation poses more risk than benefits due to recent intracranial hemorrhage. * Discussed with patient's in detail, who is agreeing with the management. * Neurology will follow. * Thank you very much for allowing me to participate in care of your patient.
--- NOTE | 2019-03-09 21:57 | P.PN ---
Progress Note - Text Progress Note Date: 03/09/19 Chief Complaint: Unable to see History of presenting complaint: This is a 73-year-old patient with extensive medical history as chronic stable medical conditions include COPD, end-stage kidney disease on peritoneal dialysis, hypertensive heart disease, proximal atrial fibrillation, chronic rheumatoid arthritis, hyperlipidemia, mineral bone disease from chronic kidney disease, anemia of chronic kidney disease, secondary pulmonary hypertension, lateral chronic renal artery stenosis, chronic congestive heart failure from diastolic dysfunction EF 55-60%. Patient also had acute intraparenchymal hemorrhage in the right mid cerebral hemisphere on February 03 requiring transfer to [facility],. Patientis currently a resident of [facility]. Patient presented after she suddenly could not see. Can only see some hand movements. Unable to see any light. Denies any headache. No focal weakness. Practically ER. Computed tomography scan of the brain showed acute left occipital lobe and left occipital parietal junction infarct. Does no h emorrhagic transformation. Today-as an overflow in the ICU. Patient is still poor. She eats small amounts. Getting peritoneal dialysis. Review of systems was attempted for cost recurrent dysphagia appropriate.. Active Medications Acetaminophen (Tylenol Tab) 650 mg PO TID [facility] Last Admin: 03/09/19 16:24 Dose: 650 mg Documented by: Albuterol/Ipratropium (Duoneb 0.5 Mg-3 Mg/3 Ml Soln) 3 ml INHALATION RT-Q4H [facility] Last Admin: 03/09/19 20:35 Dose: Not Given Documented by: Alprazolam (Xanax) 0.25 mg PO Q8H PRN PRN Reason: Anxiety Last Admin: 03/08/19 20:20 Dose: 0.25 mg Documented by: Amiodarone HCl (Cordarone) 200 mg PO TID@0800,1200,1800 [facility] Last Admin: 03/09/19 21:01 Dose: 200 mg Documented by: Aspirin (Aspirin) 325 mg PO DAILY [facility] Last Admin: 03/09/19 11:14 Dose: 325 mg Documented by: Atorvastatin Calcium (Lipitor) 80 mg PO DAILY [facility] Last Admin: 03/09/19 11:14 Dose: 80 mg Documented by: Budesonide/Formoterol Fumarate (Symbicort 160-4.5 Mcg Inhaler) 2 puff INHALATION RT-BID [facility] Last Admin: 03/09/19 20:35 Dose: Not Given Documented by: Calcium Acetate (Phoslo) 667 mg PO AC-TID [facility] Last Admin: 03/09/19 18:48 Dose: 667 mg Documented by: Clopidogrel Bisulfate (Plavix) 75 mg PO DAILY [facility] Last Admin: 03/09/19 11:14 Dose: 75 mg Documented by: Peritoneal Dialysis Solution (Delflex With 1.5% Dextrose (2,000 Ml)) 30 g in 2,000 mls @ 0 mls/hr INTRAPERIT Q6HR [facility]; Protocol Last Admin: 03/09/19 17:41 Dose: 2,000 mls/hr Documented by: Melatonin (Melatonin) 1 mg PO HS [facility] Last Admin: 03/08/19 23:45 Dose: Not Given Documented by: Metoprolol Tartrate (Lopressor) 75 mg PO BID [facility] Last Admin: 03/09/19 21:01 Dose: 75 mg Documented by: Pantoprazole Sodium (Protonix) 40 mg PO DAILY@0800 [facility] Last Admin: 03/09/19 11:13 Dose: 40 mg Documented by: Physical examination: VITAL: 97.5, 64, 17, 103/86, 99% room air GENERAL: BMI 21.3, laying in bed, anxious. EYES: Pupils equal. Conjunctiva normal. HEENT: External appearance of nose and ears normal, oral cavity grossly normal. NECK: JVD unable to assess; masses not palpable. HEART: First and second heart sounds are normal; no edema. LUNGS: Respiratory rate normal; decreased breath sound. ABDOMEN: Soft, PT catheter in place, nontender, liver spleen not palpable, no masses palpable. PSYCH: [Patient answering some questions l. NEUROLOGICAL: Patient's vision is down to move out of the hands, no other change LYMPHATICS: No lymph nodes palpable in the axilla and neck INVESTIGATIONS, reviewed in the clinical context: Sodium 124 potassium 5.5 2-D echo-EF 50-55%, moderate concentric left ventricular hypertrophy, no thrombus reported Previous testing White count 14.8 hemoglobin 10.5 potassium 5.5 bun 71 creatine 5.95 EKG tracing personally reviewed by me--personally reviewed by me shows atrial flutter with some ST segment changes CT angiogram of the brain-possible stenosis of the carotid arteries Chest x-ray film personally reviewed by me-lung caceres are clear some cardiomegaly Computed tomography scan of brain-acute left occipital lobe and left occipitoparietal junction infarct. Assessment: -Acute stroke possibly embolic in the left occipital lobe and left occipitoparietal junction infarct, affecting the vision -COPD in an ex-smoker, -Hyponatremia suspect hypoosmolar -end-stage kidney disease on peritoneal dialysis, - hypertensive heart disease, -Paroxysmal atrial flutter atrial fibrillation, - chronic rheumatoid arthritis, - hyperlipidemia, - mineral bone disease from chronic kidney disease, - anemia of chronic kidney disease, - secondary pulmonary hypertension, -Bilateral chronic renal artery stenosis, -chronic congestive heart failure from diastolic dysfunction EF 55-60%. - acute intraparenchymal hemorrhage in the right mid cerebral hemisphere on February 03 requiring transfer to [facility], -Code full Plan: Per neurology to resume aspirin and Plavix. Peritoneal dialysis to continue. Prognosis remains guarded. Eating small amounts. No family at the bedside.
[2019-03-10] MEDS: ACETAMINOPHEN TAB 325 MG TAB PO SCH ×3 (00:07→16:25)
[2019-03-10] MEDS: MELATONIN 1 MG TAB PO SCH (00:07)
[2019-03-10] MEDS: DIALYSIS (PERIT 1.5%) 2,000 ML 30 G/2,000 ML BAG INTRAPERIT SCH ×5 (00:12→23:16)
[2019-03-10] MEDS: ALPRAZolam 0.25 MG TAB PO PRN ×2 (01:51→22:45)
[2019-03-10] MEDS: IPRATROPIUM-ALBUTEROL 3 ML NEB INHALATION SCH ×5 (03:13→20:13)
[2019-03-10 04:45] LABS: Anisocytosis Slight; Basophils # (A) 0.1 k/uL (0-0.2); Basophils % (A) 1 %; Eosinophils # (A) 0.3 k/uL (0-0.7); Eosinophils % (A) 2 %; HCT 31.6 % (34.0-46.0); HGB 10.4 gm/dL (11.4-16.0); Lymphocytes # (A) 0.4 k/uL (1.0-4.8); Lymphocytes % (A) 3 %; MCH 32.6 pg (25.0-35.0); MCV 98.7 fL (80.0-100.0); Macrocytosis Slight; Monocytes # (A) 0.7 k/uL (0-1.0); Monocytes % (A) 6 %; Neutrophils # (A) 10.3 k/uL (1.3-7.7); Neutrophils % (A) 84 %; Platelet Count 179 k/uL (150-450); RDW 16.5 % (11.5-15.5); WBC 12.3 k/uL (3.8-10.6)
[2019-03-10 05:19] LABS: Calcium 9.2 mg/dL (8.4-10.2)
[2019-03-10] MEDS: ASPIRIN 325 MG TAB PO SCH (09:44)
[2019-03-10] MEDS: CALCIUM ACETATE 667 MG CAP PO SCH ×3 (09:44→18:08)
[2019-03-10] MEDS: ATORVASTATIN 80 MG TAB PO SCH (09:44)
[2019-03-10] MEDS: PANTOPRAZOLE 40 MG TABLET PO SCH (09:44)
[2019-03-10] MEDS: METOPROLOL TARTRATE 25 MG TAB PO SCH ×2 (09:44→22:45)
[2019-03-10] MEDS: AMIODARONE 200 MG TAB PO SCH ×3 (09:45→22:45)
[2019-03-10] MEDS: CLOPIDOGREL 75 MG TAB PO SCH (09:45)
--- NOTE | 2019-03-10 09:48 | P.PN ---
Subjective Patient is seen in follow-up for end-stage renal disease. She is maintained on peritoneal dialysis. Patient presented an acute CVA. Does admit to dyspnea. Oral intake is fair. Vital signs are stable. General: The patient appeared well nourished and normally developed. HEENT: Head exam is unremarkable. Neck is without jugular venous distension. LUNGS: Breath sounds decreased. HEART: Rate and Rhythm are regular. First and second heart sounds normal. No murmurs, rubs or gallops. ABDOMEN: Abdominal exam reveals normal bowel sounds. Non-tender and non- distended. No evidence of peritonitis. EXTREMITITES: No clubbing, cyanosis, or edema. Objective - Vital Signs Vital signs: Vital Signs Temp 97.8 F 03/10/19 08:00 Pulse 80 03/10/19 08:00 Resp 12 03/10/19 08:00 BP 111/69 03/10/19 08:00 Pulse Ox 97 03/10/19 08:00 Intake & Output 03/09/19 03/10/19 03/10/19 18:59 06:59 18:59 Intake Total 100 120 Output Total 0 Balance 100 120 Weight 53 kg Intake: Oral 100 120 Output: Urine 0 Other: Voiding Method CAPD CAPD # Bowel Movements 1 - Labs CBC & Chem 7: 03/10/19 04:30 03/10/19 04:30 Labs: Abnormal Lab Results - Last 24 Hours (Table) 03/09/19 03/09/19 03/09/19 Range/Units 11:30 11:50 18:07 WBC (3.8-10.6) k/uL RBC (3.80-5.40) m/uL Hgb (11.4-16.0) gm/dL Hct (34.0-46.0) % RDW (11.5-15.5) % Neutrophils # (1.3-7.7) k/uL Lymphocytes # (1.0-4.8) k/uL Sodium 124 L (137-145) mmol/L Potassium 5.5 H 5.4 H (3.5-5.1) mmol/L Chloride 85 L (98-107) mmol/L BUN 76 H (7-17) mg/dL Creatinine 6.11 H (0.52-1.04) mg/dL POC Glucose (mg/dL) 103 H (75-99) mg/dL 03/10/19 03/10/19 Range/Units 04:30 04:30 WBC 12.3 H (3.8-10.6) k/uL RBC 3.20 L (3.80-5.40) m/uL Hgb 10.4 L (11.4-16.0) gm/dL Hct 31.6 L (34.0-46.0) % RDW 16.5 H (11.5-15.5) % Neutrophils # 10.3 H (1.3-7.7) k/uL Lymphocytes # 0.4 L (1.0-4.8) k/uL Sodium 126 L (137-145) mmol/L Potassium (3.5-5.1) mmol/L Chloride 87 L (98-107) mmol/L BUN 72 H (7-17) mg/dL Creatinine 6.25 H (0.52-1.04) mg/dL POC Glucose (mg/dL) (75-99) mg/dL Assessment and Plan Plan: Assessment: 1. End-stage renal disease maintained on peritoneal dialysis. 2. Acute left occipital lobe and left occipitoparietal junction infarct. Currently on aspirin, Plavix and statin. Neurology following. 3. Hypertension with chronic kidney disease. Controlled. 4. Chronic kidney disease mineral bone disease maintained on PhosLo. 5. Hyponatremia secondary to chronic disease. 6. Metabolic acidosis secondary to chronic kidney disease. Better. 7. Anemia of chronic kidney disease. Hemoglobin at goal. 8. Chronic A. fib. Plan: Maintain current peritoneal dialysis exchanges. 1200 mL fluid restriction. Encouraged oral intake, particularly protein. Add ensure. Check chest x-ray.
--- NOTE | 2019-03-10 09:56 | XR ---
EXAMINATION TYPE: XR chest 1V portable DATE OF EXAM: 03/10/2019 COMPARISON: 03/08/2019 HISTORY: Shortness of breath TECHNIQUE: Frontal and lateral views of the chest are obtained. FINDINGS: Scattered senescent parenchymal changes noted. Hyperinflation compatible with COPD. No evidence for infiltrate. No evidence for atelectasis. Nodular density right lower lobe persists ho wever is likely reflective of nipple shadow. Heart size is stable. Mediastinal structures are stable and grossly unremarkable. No evidence for hilar prominence. Degenerative changes dorsal spine. IMPRESSION: 1. No evidence for acute pulmonary disease.
[2019-03-10] MEDS: SYMBICORT 160-4.5 MCG INHALER INHALATION SCH ×2 (10:07→20:13)
[2019-03-10 11:45] LABS: Glucose,Whole Blood 155 mg/dL (75-99)
--- NOTE | 2019-03-10 13:07 | P.PN ---
Subjective Progress Note Date: 03/10/19 Patient is laying comfortably in the bed. Patient states her vision has recovered. Patient at times becomes agitated, yells. No new focal neurological symptoms. Patient's chest x-ray showed no acute process. Hemoglobin A1c 5.7. Sodium 126, potassium 5.0. BUN 72, creatinine 6.25. WBC 12.3 hemoglobin 10.4 and platelets 179. Her cholesterol is 160, LDL 74, HDL 51. Vitamin B12 493. Objective - Vital Signs Vital signs: Vital Signs Temp 97.6 F 03/10/19 12:01 Pulse 55 L 03/10/19 12:01 Resp 12 03/10/19 12:01 BP 97/61 03/10/19 12:01 Pulse Ox 94 L 03/10/19 12:01 Intake & Output 03/09/19 03/10/19 03/10/19 18:59 06:59 18:59 Intake Total 100 120 Output Total 0 Balance 100 120 Weight 53 kg Intake: Oral 100 120 Output: Urine 0 Other: Voiding Method CAPD CAPD CAPD # Bowel Movements 1 - Exam Patient is alert and awake in no distress. She does cries, and yells at times. Patient has advanced dementia. Patient states she is able to see. However patient clearly has right homonymous hemianopia. She has relatively better vision on the left visual field. Patient not able to count fingers. She always states "2 fingers", although I could be presenting with 5 fingers, 10 fingers are 1, she only answers "2 fingers". Patient's face is symmetric. Muscle strength appears normal. - Labs CBC & Chem 7: 03/10/19 04:30 03/10/19 04:30 Labs: Abnormal Lab Results - Last 24 Hours (Table) 03/09/19 03/10/19 03/10/19 Range/Units 18:07 04:30 04:30 WBC 12.3 H (3.8-10.6) k/uL RBC 3.20 L (3.80-5.40) m/uL Hgb 10.4 L (11.4-16.0) gm/dL Hct 31.6 L (34.0-46.0) % RDW 16.5 H (11.5-15.5) % Neutrophils # 10.3 H (1.3-7.7) k/uL Lymphocytes # 0.4 L (1.0-4.8) k/uL Sodium 126 L (137-145) mmol/L Potassium 5.4 H (3.5-5.1) mmol/L Chloride 87 L (98-107) mmol/L BUN 72 H (7-17) mg/dL Creatinine 6.25 H (0.52-1.04) mg/dL POC Glucose (mg/dL) (75-99) mg/dL 03/10/19 Range/Units 11:42 WBC (3.8-10.6) k/uL RBC (3.80-5.40) m/uL Hgb (11.4-16.0) gm/dL Hct (34.0-46.0) % RDW (11.5-15.5) % Neutrophils # (1.3-7.7) k/uL Lymphocytes # (1.0-4.8) k/uL Sodium (137-145) mmol/L Potassium (3.5-5.1) mmol/L Chloride (98-107) mmol/L BUN (7-17) mg/dL Creatinine (0.52-1.04) mg/dL POC Glucose (mg/dL) 155 H (75-99) mg/dL Assessment and Plan Assessment: * Acute to subacute ischemic stroke involving the left occipital lobe and left occipitoparietal junction. Her stroke could be cardioembolic from atrial fibrillation, but could also be thromboembolic from significant vertebral artery atherosclerotic disease. 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 * Right ICA stenosis just over 70%, per CTA report. * Atrial fibrillation, currently not on anticoagulation. * Recent history of right cerebellar hemorrhage on 01/28/2019, requiring no surgical treatment. * Vascular dementia Plan: * Continue aspirin and Plavix for stroke prevention. Anticoagulation relatively contraindicated because of recent history of intraparenchymal hemorrhage on 01/28/2019, while being on Apixaban 2.5 mg twice a day. Patient on Protonix 40 mg for gastric ulcer prophylaxis. * Patient had a 2-D echo performed 03/09/2019, which revealed no obvious embolic source, although patient does have atrial fibrillation, which is a stroke risk factor. At this time anticoagulation poses more risk than benefits due to recent intracranial hemorrhage. * Supportive care. * Neurologically clear otherwise. May follow up with clinique counter manager as an outpatient for follow-up on the visual caceres testing.
[2019-03-10] MEDS ORDERED: SODIUM CHLORIDE 0.9% 1,000 ML IV ONE (16:15)
--- NOTE | 2019-03-10 17:43 | P.PN ---
Progress Note - Text Progress Note Date: 03/10/19 Chief Complaint: Unable to see Interval history: This is a 73-year-old patient with extensive medical history as chronic stable medical conditions include COPD, end-stage kidney disease on peritoneal dialysis, hypertensive heart disease, proximal atrial fibrillation, chronic rheumatoid arthritis, hyperlipidemia, mineral bone disease from chronic kidney disease, anemia of chronic kidney disease, secondary pulmonary hypertension, lateral chronic renal artery stenosis, chronic congestive heart failure from diastolic dysfunction EF 55-60%. Patient also had acute intraparenchymal hemorrhage in the right mid cerebral hemisphere on February 03 requiring transfer to [facility],. [facility] [place] Patient presented after she suddenly could not see. Can only see some hand movements. Unable to see any light. Denies any headache. No focal weakness. Practically ER. Computed tomography scan of the brain showed acute left occipital lobe and left occipital parietal junction infarct. Does no hemorrhagic transformation. Today-moved out of the ICU. Still vision is poor. Oral intake is fine. Getting peritoneal dialysis.. Review of systems: Was done for constitutional, cardiovascular, GI, pulmonary. Neurological relevant finding as above Active Medications Acetaminophen (Tylenol Tab) 650 mg PO TID [facility] Last Admin: 03/10/19 16:25 Dose: 650 mg Documented by: Albuterol/Ipratropium (Duoneb 0.5 Mg-3 Mg/3 Ml Soln) 3 ml INHALATION RT-Q4H [facility] Last Admin: 03/10/19 16:30 Dose: Not Given Documented by: Alprazolam (Xanax) 0.25 mg PO Q8H PRN PRN Reason: Anxiety Last Admin: 03/10/19 01:51 Dose: 0.25 mg Documented by: Amiodarone HCl (Cordarone) 200 mg PO BID [facility] Aspirin (Aspirin) 325 mg PO DAILY [facility] Last Admin: 03/10/19 09:44 Dose: 325 mg Documented by: Atorvastatin Calcium (Lipitor) 80 mg PO DAILY [facility] Last Admin: 03/10/19 09:44 Dose: 80 mg Documented by: Budesonide/Formoterol Fumarate (Symbicort 160-4.5 Mcg Inhaler) 2 puff INHALATION RT-BID [facility] Last Admin: 03/10/19 10:07 Dose: Not Given Documented by: Calcium Acetate (Phoslo) 667 mg PO AC-TID [facility] Last Admin: 03/10/19 13:36 Dose: 667 mg Documented by: Clopidogrel Bisulfate (Plavix) 75 mg PO DAILY [facility] Last Admin: 03/10/19 09:45 Dose: 75 mg Documented by: Peritoneal Dialysis Solution (Delflex With 1.5% Dextrose (2,000 Ml)) 30 g in 2,000 mls @ 0 mls/hr INTRAPERIT Q6HR [facility]; Protocol Last Admin: 03/10/19 13:21 Dose: 2,000 mls/hr Documented by: Sodium Chloride (Saline 0.9%) 1,000 mls @ 500 mls/hr IV .Q2H ONE Stop: 03/10/19 18:14 Last Admin: 03/10/19 16:39 Dose: Not Given Documented by: Melatonin (Melatonin) 1 mg PO HS [facility] Last Admin: 03/10/19 00:07 Dose: 1 mg Documented by: Metoprolol Tartrate (Lopressor) 75 mg PO BID [facility] Last Admin: 03/10/19 09:44 Dose: 75 mg Documented by: Pantoprazole Sodium (Protonix) 40 mg PO DAILY@0800 [facility] Last Admin: 03/10/19 09:44 Dose: 40 mg Documented by: Physical examination: VITAL: 97.6, 55, 12, 37/61, 94% room air GENERAL: Laying in bed, EYES: Pupils equal. Conjunctiva normal. HEENT: External appearance of nose and ears normal, oral cavity grossly normal. NECK: JVD unable to assess; masses not palpable. HEART: First and second heart sounds are normal; no edema. LUNGS: Respiratory rate normal; decreased breath sound. ABDOMEN: Soft, dialysis catheter in place, nontender, liver spleen not palpable, no masses palpable. PSYCH: [Patient answering some questions l. NEUROLOGICAL: Patient states not able to see anything INVESTIGATIONS, reviewed in the clinical context: White count 12.3 hemoglobin 10.4 potassium 5 sodium 126 Previous testing White count 14.8 hemoglobin 10.5 potassium 5.5 bun 71 creatine 5.95 EKG tracing personally reviewed by me--personally reviewed by me shows atrial flutter with some ST segment changes CT angiogram of the brain-possible stenosis of the carotid arteries Chest x-ray film personally reviewed by me-lung caceres are clear some cardiomegaly Computed tomography scan of brain-acute left occipital lobe and left occipitoparietal junction infarct. 2-D echo-EF 50-55%, moderate concentric left ventricular hypertrophy, no thrombus reported Assessment: -Acute stroke possibly embolic in the left occipital lobe and left occipitoparietal junction infarct, affecting the vision, with no improvement -COPD in an ex-smoker, -Hyponatremia suspect hypoosmolar -end-stage kidney disease on peritoneal dialysis, - hypertensive heart disease, -Paroxysmal atrial flutter atrial fibrillation, - chronic rheumatoid arthritis, - hyperlipidemia, - mineral bone disease from chronic kidney disease, - anemia of chronic kidney disease, - secondary pulmonary hypertension, -Bilateral chronic renal artery stenosis, -chronic congestive heart failure from diastolic dysfunction EF 55-60%. - acute intraparenchymal hemorrhage in the right mid cerebral hemisphere on February 03 requiring transfer to [facility], -Code full Plan: Discussed with the at bedside. Prognosis not good. Patient has multiple comorbidities. Peritoneal dialysis to continue. Should be able to go back to the rehab tomorrow.
[2019-03-11] MEDS: IPRATROPIUM-ALBUTEROL 3 ML NEB INHALATION SCH ×4 (00:11→12:13)
[2019-03-11] MEDS: MELATONIN 1 MG TAB PO SCH (06:05)
[2019-03-11] MEDS: ACETAMINOPHEN TAB 325 MG TAB PO SCH ×2 (06:06→08:47)
[2019-03-11] MEDS: DIALYSIS (PERIT 1.5%) 2,000 ML 30 G/2,000 ML BAG INTRAPERIT SCH ×3 (06:06→12:10)
[2019-03-11] MEDS: CALCIUM ACETATE 667 MG CAP PO SCH ×2 (06:56→12:13)
--- NOTE | 2019-03-11 08:18 | P.PN ---
Subjective Patient is seen in follow-up for end-stage renal disease. She is maintained on peritoneal dialysis. Patient presented an acute CVA. She has been transferred out of the intensive care unit. Denies any chest pain or shortness of breath at this time. Patient's blood pressure was low yesterday and she received a 500 mL bolus of normal saline. Vital signs are stable. General: The patient appeared well nourished and normally developed. HEENT: Head exam is unremarkable. Neck is without jugular venous distension. LUNGS: Breath sounds decreased. HEART: Rate and Rhythm are regular. First and second heart sounds normal. No murmurs, rubs or gallops. ABDOMEN: Abdominal exam reveals normal bowel sounds. Non-tender and non- distended. No evidence of peritonitis. EXTREMITITES: No clubbing, cyanosis, or edema. Objective - Vital Signs Vital signs: Vital Signs Temp 98.2 F 03/11/19 07:43 Pulse 94 03/11/19 07:43 Resp 20 03/11/19 07:43 BP 86/58 03/11/19 07:43 Pulse Ox 94 L 03/11/19 07:43 Intake & Output 03/10/19 03/11/19 03/11/19 18:59 06:59 18:59 Intake Total 0 Output Total 0 Balance 0 0 Weight 114 kg Intake: Oral 0 Output: Urine 0 Other: Voiding Method CAPD CAPD # Voids 0 0 # Bowel Movements 0 0 - Labs CBC & Chem 7: 03/10/19 04:30 03/10/19 04:30 Labs: Abnormal Lab Results - Last 24 Hours (Table) 03/10/19 Range/Units 11:42 POC Glucose (mg/dL) 155 H (75-99) mg/dL Assessment and Plan Plan: Assessment: 1. End-stage renal disease maintained on peritoneal dialysis. 2. Acute left occipital lobe and left occipitoparietal junction infarct. Currently on aspirin, Plavix and statin. Neurology following. 3. Hypertension with chronic kidney disease. Blood pressures on the lower side. 4. Chronic kidney disease mineral bone disease maintained on PhosLo. 5. Hyponatremia secondary to chronic disease. 6. Metabolic acidosis secondary to chronic kidney disease. Better. 7. Anemia of chronic kidney disease. Hemoglobin at goal. 8. Chronic A. fib. Plan: Maintain current peritoneal dialysis exchanges. 1200 mL fluid restriction. Encouraged oral intake, particularly protein. Added ensure. Follow-up morning labs. May repeat 500 mL bolus of normal saline if remains persistently hypotensive.
[2019-03-11] MEDS: SYMBICORT 160-4.5 MCG INHALER INHALATION SCH (08:43)
[2019-03-11] MEDS: PANTOPRAZOLE 40 MG TABLET PO SCH (08:47)
[2019-03-11] MEDS: ALPRAZolam 0.25 MG TAB PO PRN (08:47)
[2019-03-11] MEDS: AMIODARONE 200 MG TAB PO SCH (08:47)
[2019-03-11] MEDS: CLOPIDOGREL 75 MG TAB PO SCH (08:48)
[2019-03-11] MEDS: ASPIRIN 325 MG TAB PO SCH (08:48)
[2019-03-11] MEDS: ATORVASTATIN 80 MG TAB PO SCH (08:48)
[2019-03-11] MEDS ORDERED: METOPROLOL TARTRATE 50 MG TAB PO SCH (09:00)
[2019-03-11 09:08] LABS: Calcium 8.9 mg/dL (8.4-10.2); Potassium 4.6 mmol/L (3.5-5.1)
[2019-03-11 11:47] VITALS: BP 100/40; PULSE 104; RESP 16
--- NOTE | 2019-03-11 11:55 | P.PN ---
Subjective Progress Note Date: 03/11/19 Patient is sitting in the chair. Patient today mentions that her vision has not returned. Patient appears somewhat groggy, sleepy and did not want to be examined. Did not answer questions. Patient's chest x-ray showed no acute process. Hemoglobin A1c 5.7. Sodium 126, potassium 5.0. BUN 72, creatinine 6.25. WBC 12.3 hemoglobin 10.4 and platelets 179. Her cholesterol is 160, LDL 74, HDL 51. Vitamin B12 493. Objective - Vital Signs Vital signs: Vital Signs Temp 98.1 F 03/11/19 08:21 Pulse 104 H 03/11/19 11:46 Resp 16 03/11/19 11:46 BP 100/40 03/11/19 11:46 Pulse Ox 97 03/11/19 11:46 Intake & Output 03/10/19 03/11/19 03/11/19 18:59 06:59 18:59 Intake Total 0 120 Output Total 0 Balance 0 0 120 Weight 114 kg Intake: Oral 0 120 Output: Urine 0 Other: Voiding Method CAPD CAPD Diaper # Voids 0 0 # Bowel Movements 0 0 1 - Exam Patient is very somnolent, would not let examined. 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 - Labs CBC & Chem 7: 03/10/19 04:30 03/11/19 08:35 Labs: Abnormal Lab Results - Last 24 Hours (Table) 03/11/19 Range/Units 08:35 Sodium 131 L (137-145) mmol/L Chloride 90 L (98-107) mmol/L BUN 63 H (7-17) mg/dL Creatinine 5.93 H (0.52-1.04) mg/dL Assessment and Plan Assessment: * Acute to subacute ischemic stroke involving the left occipital lobe and left occipitoparietal junction. Her stroke could be cardioembolic from atrial fibrillation, but could also be thromboembolic from significant vertebral artery atherosclerotic disease. 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 * Right ICA stenosis just over 70%, per CTA report. * Atrial fibrillation, currently not on anticoagulation. * Recent history of right cerebellar hemorrhage on 01/28/2019, requiring no surgical treatment. * Vascular dementia Plan: * Continue aspirin and Plavix for stroke prevention. Anticoagulation relatively contraindicated because of recent history of intraparenchymal hemorrhage on 01/28/2019, while being on Apixaban 2.5 mg twice a day. Patient on Protonix 40 mg for gastric ulcer prophylaxis. * Patient had a 2-D echo performed 03/09/2019, which revealed no obvious embolic source, although patient does have atrial fibrillation, which is a stroke risk factor. At this time anticoagulation poses more risk than benefits due to re cent intracranial hemorrhage. * Supportive care. Patient's also did not want her to go back on Eloquis. * Neurologically clear otherwise. May follow up with airport maintenance chief as an outpatient for follow-up on the visual caceres testing. * Neurology coverage not available on the weekend.
[2019-03-11 12:06] VITALS: TEMP 97.9
--- NOTE | 2019-03-11 13:17 | P.DS ---
Providers Date of admission: 03/08/19 14:16 Expected date of discharge: 03/11/19 Attending physician: Steve [place] Consults: 03/08/19 14:22 Consult Physician Routine Consulting Provider: Dolly Hall Consult Reason/Comments: CVA Do you want consulting provider notified?: Yes 03/08/19 15:20 Consult Physician Routine Consulting Provider: Alfredo Wilde Consult Reason/Comments: On peritoneal dialisis. Do you want consulting provider notified?: Yes Primary care physician: [place] Hospital Course: Chief Complaint: Unable to see Hospital course: This is a 73-year-old patient with extensive medical history as chronic stable medical conditions include COPD, end-stage kidney disease on peritoneal dialysis, hypertensive heart disease, proximal atrial fibrillation, chronic rheumatoid arthritis, hyperlipidemia, mineral bone disease from chronic kidney disease, anemia of chronic kidney disease, secondary pulmonary hypertension, lateral chronic renal artery stenosis, chronic congestive heart failure from diastolic dysfunction EF 55-60%. Patient also had acute intraparenchymal hemorrhage in the right mid cerebral hemisphere on February 03 requiring transfer to [facility],. Patientis currently a resident of [facility]. Patient presented after she suddenly could not see. Can only see some hand movements. Unable to see any light. Denies any headache. No focal weakness. Practically ER. Computed tomography scan of the brain showed acute left occipital lobe and left occipital parietal junction infarct. no hemorrhagic transformation. Antiplatelet agents were okay to be placed back by neurology. Because of lower heart rate dose beta jil was cut back. Dose of amiodarone was reduced. Today-laying in bed. Vision remains poor. Tolerating diet. Getting her peritoneal dialysis. Consultation: Dr. Daugherty from neurology Dr. Wilde from nephrology Physical examination: VITAL: 97.9, 104, 16, 100/40, 97% room air GENERAL: Laying in bed, awake. EYES: Pupils equal. Conjunctiva normal. HEENT: External appearance of nose and ears normal, oral cavity grossly normal. NECK: JVD unable to assess; masses not palpable. HEART: First and second heart sounds are normal; no edema. LUNGS: Respiratory rate normal; decreased breath sound. ABDOMEN: Soft, dialysis catheter in place, nontender, liver spleen not palpable, no masses palpable. PSYCH: [Patient answering some questions NEUROLOGICAL: Patient states not able to see anything INVESTIGATIONS, reviewed in the clinical context: White count 12.3 hemoglobin 10.4 potassium 5 sodium 126 Previous testing White count 14.8 hemoglobin 10.5 potassium 5.5 bun 71 creatine 5.95 EKG tracing personally reviewed by me--personally reviewed by me shows atrial flutter with some ST segment changes CT angiogram of the brain-possible stenosis of the carotid arteries Chest x-ray film personally reviewed by me-lung caceres are clear some card iomegaly Computed tomography scan of brain-acute left occipital lobe and left occipitoparietal junction infarct. 2-D echo-EF 50-55%, moderate concentric left ventricular hypertrophy, no thrombus reported Assessment: -Acute stroke possibly embolic in the left occipital lobe and left occipitoparietal junction infarct, affecting the vision, with no improvement, POA Acute cortical blindness from above -COPD in an ex-smoker, -Hyponatremia suspect hypoosmolar -end-stage kidney disease on peritoneal dialysis, - hypertensive heart disease, -Paroxysmal atrial flutter atrial fibrillation, - chronic rheumatoid arthritis, - hyperlipidemia, - mineral bone disease from chronic kidney disease, - anemia of chronic kidney disease, - secondary pulmonary hypertension, -Bilateral chronic renal artery stenosis, -chronic congestive heart failure from diastolic dysfunction EF 55-60%. - acute intraparenchymal hemorrhage in the right mid cerebral hemisphere on February 03 requiring transfer to [facility], -Code full disposition: [facility] Patient Condition at Discharge: Undetermined Plan - Discharge Summary Discharge Rx Participant: Yes New Discharge Prescriptions: New Aspirin 81 mg PO DAILY #1 chewable Atorvastatin [Lipitor] 80 mg PO DAILY tab Metoprolol Tartrate [Lopressor] 50 mg PO BID tab Clopidogrel [Plavix] 75 mg PO DAILY tab Continue Omeprazole [PriLOSEC] 20 mg PO DAILY@0800 Ipratropium-Albuterol Nebulize [Duoneb 0.5 mg-3 mg/3 ml Soln] 3 ml INHALATION RT-Q4H Melatonin 1 mg PO HS Gentamicin 0.1% Cream 1 applic TOPICAL TID Calcium Acetate [PhosLo] 667 mg PO AC-TID Budesonide/Formoterol Fumarate [Symbicort 160-4.5 Mcg Inhaler] 2 puff INHALATION RT-BID Acetaminophen Tab [Tylenol] 650 mg PO TID ALPRAZolam [Xanax] 0.25 mg PO Q8H PRN #9 tab PRN Reason: Anxiety Changed Amiodarone [Cordarone] 200 mg PO DAILY #0 Discontinued Metoprolol Tartrate [Lopressor] 75 mg PO BID Discharge Medication List Omeprazole [PriLOSEC] 20 mg PO DAILY@0800 12/28/18 [History] Ipratropium-Albuterol Nebulize [Duoneb 0.5 mg-3 mg/3 ml Soln] 3 ml INHALATION RT-Q4H 01/27/19 [History] Budesonide/Formoterol Fumarate [Symbicort 160-4.5 Mcg Inhaler] 2 puff INHALATION RT-BID 02/21/19 [History] Calcium Acetate [PhosLo] 667 mg PO AC-TID 02/21/19 [History] Gentamicin 0.1% Cream 1 applic TOPICAL TID 02/21/19 [History] Melatonin 1 mg PO HS 02/21/19 [History] Acetaminophen Tab [Tylenol] 650 mg PO TID 03/08/19 [History] ALPRAZolam [Xanax] 0.25 mg PO Q8H PRN #9 tab 03/11/19 [Rx] Amiodarone [Cordarone] 200 mg PO DAILY #0 03/11/19 [Rx] Aspirin 81 mg PO DAILY #1 chewable 03/11/19 [Rx] Atorvastatin [Lipitor] 80 mg PO DAILY tab 03/11/19 [Rx] Clopidogrel [Plavix] 75 mg PO DAILY tab 03/11/19 [Rx] Metoprolol Tartrate [Lopressor] 50 mg PO BID tab 03/11/19 [Rx] Follow up Appointment(s)/Referral(s): Soren Desai MD [Primary Care Provider] - 1-2 days
--- NOTE | 2019-03-16 13:52 | CDI ---
Documentation Clarification Form Date: 03/16/19 From: Aracelis Mary Phone: If you have a question about this query, please contact Martha Baca, Pesticide Applicator at [phone] between 8am and 5pm. Admit Date: 03/08/19 Discharge Date: 03/11/19 Patient Name: Brittany Levin Visit Number: [id number] ATTENTION: The Clinical Documentation Specialists (CDI) and [facility] Coding Staff appreciate your assistance in clarifying documentation. Please respond to the clarification below the line at the bottom and electronically sign. The CDI & [facility] Coding staff will review the response and follow-up if needed. Please note: Queries are made part of the Legal Health Record. If you have any questions, please contact the author of this message via ITS. Dear Dr Steve [place], Atrial Flutter is documented in the ED note, H&P, Dr Hall's consult, your PNs 03/09 & 03/10 and your DS. History/Risk factors: hx of CVA, End stage renal disease, HTN, chronic diastolic CHF, paroxysmal atrial fibrillation, hyponatremia, cortical blindness, left , Clinical Indicators: Suddenly could not see. EKG/telemetry: atrial flutter at 92 bpm QRS is 126 QT interval 370 QTC is 457 Treatment: IV Plavix, ASA In your professional opinion, in order to capture the severity of condition; can you please clarify the type of Atrial Flutter if known? Typical/Type I Atypical/Type II Other, please specify Unable to determine Unable to determine MTDD
== END 2019-03-11 15:13 | DRG 64 ==
LOC: EC 10:29 → 3SCARD 14:16 → 2SICU 03-09 10:10 → 3SCARD 03-10 12:58
PROVIDERS: ADMIT Hospitalist; ATTEND Hospitalist
PROC: 3E1M39Z Irrigation of Peritoneal Cavity using Dialysate, Percutaneous Approach (ICD-10-PCS; principal; 2019-03-08)
DX: I63.40 Cerebral infarction due to embolism of unspecified cerebral artery (principal); N18.6 End stage renal disease; I13.2 Hypertensive heart and chronic kidney disease with heart failure and with stage 5 chronic kidney disease, or end stage renal disease; E87.2 Acidosis; I50.32 Chronic diastolic (congestive) heart failure; E87.1 Hypo-osmolality and hyponatremia; I48.92 Unspecified atrial flutter; H47.612 Cortical blindness, left side of brain; I27.29 Other secondary pulmonary hypertension; E83.9 Disorder of mineral metabolism, unspecified; I48.0 Paroxysmal atrial fibrillation; I70.1 Atherosclerosis of renal artery; F01.50 Vascular dementia, unspecified severity, without behavioral disturbance, psychotic disturbance, mood disturbance, and anxiety; I65.23 Occlusion and stenosis of bilateral carotid arteries; R40.2363 Coma scale, best motor response, obeys commands, at hospital admission; R40.2133 Coma scale, eyes open, to sound, at hospital admission; R40.2243 Coma scale, best verbal response, confused conversation, at hospital admission; R29.702 NIHSS score 2; J44.9 Chronic obstructive pulmonary disease, unspecified; D63.1 Anemia in chronic kidney disease; M06.9 Rheumatoid arthritis, unspecified; I44.30 Unspecified atrioventricular block; F41.9 Anxiety disorder, unspecified; M19.90 Unspecified osteoarthritis, unspecified site; E78.5 Hyperlipidemia, unspecified; Z79.51 Long term (current) use of inhaled steroids; Z79.899 Other long term (current) drug therapy; Z99.2 Dependence on renal dialysis; Z86.73 Personal history of transient ischemic attack (TIA), and cerebral infarction without residual deficits; Z87.891 Personal history of nicotine dependence; Z87.01 Personal history of pneumonia (recurrent); Z98.890 Other specified postprocedural states; Z82.49 Family history of ischemic heart disease and other diseases of the circulatory system
CPT/HCPCS: 36415; 70450; 70496; 70498; 71045; 71046; 80048; 80053; 80061; 84132; 84484; 85025; 85610; 85730; 93005; 93306; 94640; 94760; 96360; 96361; 99285

== ENCOUNTER 2019-03-25 10:15 | Inpatient (IN) | payer MEDICARE, BC ==
[2019-03-25] MEDS ORDERED: SODIUM CHLORIDE 0.9% 1,000 ML IV STA ×3 (10:26→14:52)
[2019-03-25] MEDS ORDERED: MIDAZOLAM 1 MG/ML 5 ML VIAL IV STA ×2 (10:40→11:12)
[2019-03-25] MEDS ORDERED: SUCCINYLCHOLINE CHLORIDE VIAL 200 MG/10 ML VIAL IV STA (10:45)
[2019-03-25] MEDS ORDERED: cefTRIAXone IN SWFI 1,000 MG/10 ML SYRINGE IVP STA (10:47)
[2019-03-25] MEDS ORDERED: PROPOFOL 1,000 MG in EMPTY BAG 1 BAG IV ONE (10:57)
--- NOTE | 2019-03-25 10:57 | XR ---
EXAMINATION TYPE: XR chest 1V DATE OF EXAM: 03/25/2019 COMPARISON: 03/10/2019 HISTORY: Difficulty breathing TECHNIQUE: Single frontal view of the chest is obtained. FINDINGS: There are new patchy multifocal right-sided consolidations. Minimal left infrahilar probab le atelectasis. Overall left lung remains well aerated. Endotracheal tube has been inserted terminati ng approximately 2.2 cm from the sonam. There is rotation of the mediastinum. Diffuse osseous demine ralization seen. IMPRESSION: New multifocal right lung consolidations most compatible with multifocal pneumonia. Endo tracheal tube appears satisfactory in position.
[2019-03-25 11:05] LABS: Partial Thromboplastin Time 22.4 sec (22.0-30.0); Prothrombin Time 10.3 sec (9.0-12.0)
[2019-03-25 11:10] LABS: Albumin 2.7 g/dL (3.5-5.0); Magnesium 1.6 mg/dL (1.6-2.3); Potassium 5.1 mmol/L (3.5-5.1); Total Bilirubin 0.5 mg/dL (0.2-1.3); Total Protein 5.5 g/dL (6.3-8.2)
[2019-03-25 11:26] LABS: Anisocytosis Slight; HCT 34.6 % (34.0-46.0); Hypochromasia Slight; MCH 33.2 pg (25.0-35.0); MCHC 31.7 g/dL (31.0-37.0); Macrocytosis Moderate; Mean Platelet Volume 7.1; Platelet Count 156 k/uL (150-450); RDW 17.3 % (11.5-15.5); WBC 22.8 k/uL (3.8-10.6)
[2019-03-25 11:39] LABS: MCV 104.8 fL (80.0-100.0)
[2019-03-25 11:48] LABS: ABG HCO3 20 mmol/L (21-25); ABG Oxygen Saturation 99.4 % (94-97); ABG PCO2 40 mmHg (35-45); ABG PH 7.31 (7.35-7.45); ABG PO2 >400 mmHg (83-108); ABG TCO2 21 mmol/L (19-24); Allen Test Performed? Yes
[2019-03-25 12:09] LABS: Band Neutrophils % 5 %; Eosinophils # (M) 0.23 k/uL (0-0.7); Lymphocytes # (M) 0.23 k/uL (1.0-4.8); Metamyelocytes # (M) 0.23 k/uL (0); Metamyelocytes % 1 %; Monocytes # (M) 0.46 k/uL (0-1.0); Myelocytes # (M) 0.23 k/uL (0); Myelocytes % 1 %; Neutrophils % (M) 90 %; Nucleated Red Blood Cells 0 /100 WBC (0-0); Total Cells Counted 200
[2019-03-25 12:10] LABS: Polychromasia Present; Toxic Vacuolation Present
[2019-03-25] MEDS ORDERED: NOREPINEPHRINE 4 MG in SODIUM CHLORIDE 0.9% 250 ML IV SCH (13:15)
--- NOTE | 2019-03-25 13:17 | XR ---
EXAMINATION TYPE: XR chest 1V confirm line [facility] DATE OF EXAM: 03/25/2019 COMPARISON: NONE HISTORY: Line placement TECHNIQUE: Single frontal view of the chest is obtained. FINDINGS: Multifocal consolidations in the right lung are again seen appearing masslike in the right upper lung and left lung remains well aerated. Endotracheal tube is again satisfactory with enteric tube placement also. Satisfactory occurring in the interim. Right-sided PICC terminates near the cavo atrial junction within the distal superior vena cava, also appropriate. Generalized osseous demineral ization. No sizable pneumothorax or pleural effusion. IMPRESSION: Appropriately placed right PICC, enteric tube, and endotracheal tube in this patient wit h multifocal pneumonia. Follow-up to resolution recommended.
[2019-03-25] MEDS ORDERED: CEFEPIME 2 GM in SODIUM CHLORIDE 0.9% 100 ML IVPB STA (13:24)
--- NOTE | 2019-03-25 14:21 | ED ---
SOB HPI - General Chief Complaint: Shortness of Breath Stated Complaint: Sob Time Seen by Provider: 03/25/19 10:15 Source: patient, family, EMS, RN notes reviewed, old records reviewed Mode of arrival: EMS Limitations: altered mental status - History of Present Illness Initial Comments: This is a 73-year-old female history of COPD also end-stage renal disease on CAPD dialysis who presents by EMS with complaints of shortness of breath today. She currently had weakness chills. Per paramedics he had decreased breath sounds with rhonchi. MD Complaint: shortness of breath - Related Data Home Medications Medication Instructions Recorded Confirmed Omeprazole [PriLOSEC] 20 mg PO DAILY 12/28/18 03/25/19 Ipratropium-Albuterol Nebulize 3 ml INHALATION RT-Q4H 01/27/19 03/25/19 [Duoneb 0.5 mg-3 mg/3 ml Soln] Budesonide/Formoterol Fumarate 2 puff INHALATION RT-BID 02/21/19 03/25/19 [Symbicort 160-4.5 Mcg Inhaler] Calcium Acetate [PhosLo] 667 mg PO AC-TID 02/21/19 03/25/19 Melatonin 1 mg PO HS 02/21/19 03/25/19 Acetaminophen Tab [Tylenol] 650 mg PO TID 03/08/19 03/25/19 Atorvastatin [Lipitor] 80 mg PO DAILY@199903/25/19 03/25/19 Sertraline HCl [Zoloft] 25 mg PO DAILY 03/25/19 03/25/19 Previous Rx's Medication Instructions Recorded ALPRAZolam [Xanax] 0.25 mg PO Q8H PRN #9 tab 03/11/19 Amiodarone [Cordarone] 200 mg PO DAILY #0 03/11/19 Aspirin 81 mg PO DAILY #1 chewable 03/11/19 Clopidogrel [Plavix] 75 mg PO DAILY tab 03/11/19 Metoprolol Tartrate [Lopressor] 50 mg PO BID tab 03/11/19 Allergies Allergy/AdvReac Type Severity Reaction Status Date / Time No Known Allergies Allergy Verified 03/25/19 11:51 Review of Systems ROS Statement: Those systems with pertinent positive or pertinent negative responses have been documented in the HPI. ROS Other: All systems not noted in ROS Statement are negative. Past Medical History Past Medical History: Atrial Fibrillation, Asthma, Heart Failure, COPD, CVA/TIA, Dementia, Dialysis, Eye Disorder, Hypertension, Osteoarthritis (OA), Pneumonia, Renal Disease, Syncope Additional Past Medical History / Comment(s): CVA 2006, ESRD, Dialysis cath inserted 02-02-18 gets dialysis , hemorrhagic stroke 2018 History of Any Multi-Drug Resistant Organisms: None Reported Past Surgical History: Tonsillectomy Additional Past Surgical History / Comment(s): ORIF rt ankle-[address], IUD removal, lumbar steroid injections, dental implants, cardioversion, dialysis cath. has ocl on l wrist, Past Anesthesia/Blood Transfusion Reactions: No Reported Reaction Additional Past Anesthesia/Blood Transfusion Reaction / Comment(s): Past blood transfusions - no reaction Past Psychological History: Anxiety Smoking Status: Former smoker Past Alcohol Use History: None Reported Additional Past Alcohol Use History / Comment(s): Patient smoked one and half packs of cigarettes per day started in 1973 and quit 2007. Patient used to drink heavily-none now Past Drug Use History: None Reported - Past Family History Mother Family Medical History: No Reported History Additional Family Medical History / Comment(s): Mother in her 80s from abdominal aortic aneurysm. Father Family Medical History: Myocardial Infarction ([place]) Additional Family Medical History / Comment(s): Father at age 52 from acute [place]. General Exam - General Exam Comments Initial Comments: Is a well-developed asthenic appearing female who is awake and alert but somewhat lethargic and does appear to be in obvious respiratory distress with tachypnea. October breathing and shallow breathing. Limitations: altered mental status General appearance: alert, anxious, lethargic, in distress Head exam: Present: atraumatic, normocephalic, normal inspection Eye exam: Present: normal appearance, PERRL, EOMI. Absent: scleral icterus, conjunctival injection, periorbital swelling ENT exam: Present: mucous membranes dry Neck exam: Present: normal inspection. Absent: tenderness, meningismus, lymphadenopathy Respiratory exam: Present: respiratory distress, wheezes, rhonchi, accessory muscle use, decreased breath sounds. Absent: rales, stridor Cardiovascular Exam: Present: tachycardia, irregular rhythm. Absent: systolic murmur, diastolic murmur, rubs, gallop, clicks GI/Abdominal exam: Present: soft, normal bowel sounds. Absent: distended, tenderness, guarding, rebound, rigid Extremities exam: Present: normal inspection, full ROM, normal capillary refill. Absent: tenderness, pedal edema, joint swelling, calf tenderness Back exam: Present: normal inspection Neurological exam: Present: alert, oriented X3, CN II-XII intact Psychiatric exam: Present: anxious Skin exam: Present: warm, dry, intact, normal color. Absent: rash Course Vital Signs 03/25/19 03/25/19 03/25/19 10:20 10:40 10:48 Temperature 100.1 F H Pulse Rate 120 H 120 H 115 H Respiratory 39 H 39 H 16 Rate Blood Pressure 65/35 86/52 90/52 O2 Sat by Pulse 91 L 91 L 100 Oximetry 03/25/19 03/25/19 03/25/19 11:15 11:22 11:38 Temperature Pulse Rate 98 96 Respiratory 18 18 39 H Rate Blood Pressure 87/56 76/60 O2 Sat by Pulse 100 100 Oximetry 03/25/19 03/25/19 03/25/19 11:47 12:30 12:40 Temperature Pulse Rate 91 110 H 109 H Respiratory 30 H 27 H 30 H Rate Blood Pressure 82/68 85/46 80/57 O2 Sat by Pulse 100 100 100 Oximetry 03/25/19 03/25/19 03/25/19 13:00 13:10 13:30 Temperature Pulse Rate 105 H 108 H 110 H Respiratory 28 H 18 30 H Rate Blood Pressure 92/55 108/80 78/40 O2 Sat by Pulse 100 100 Oximetry - Reevaluation(s) Reevaluation #1: 03/25/19 14:19 Patient did require intubation was intubated by me with rapid sequence intubation. She did demonstrate a Mallampati score of 1 Reevaluation #2: 03/25/19 14:24 I did reevaluate patient on multiple occasions and did discuss the findings with the patient's on several occasions Procedures - Central Line Placement Right SC Consent Obtained: emergent situation Patient Placed on Monitor/Pulse Ox: Yes Prep: mask, gown, gloves, other Central Line Prep: Chlorhexidine scrub, sterile drapes applied Local Anesthesia Used: Lidocaine 1% Ultrasound Used for Placement: No Central Line Lumen Inserted: triple Central Line Position: good blood return, all ports aspirated, flushed, capped, sutured in place with 2-0 silk Dressing Applied: Tegaderm Post Procedure X-Ray: tip of catheter in good position Patient Tolerated Procedure: well Complications: none - Intubation Sedative: Versed Mg Given: 2 Paralytic: Succinylcholine Mg Given: 80 Laryngoscope: Basilio Size: 3 ET Tube Size: 7.5 ET Tube Uncuffed: No Tube Secured Depth (cm): 23 Tube Secured Location: lips Tube Placement Confirmation: visualized tube passing through cords, equal breath sounds bilaterally, confirmation by capnometry Patient Tolerated Procedure: well Intubation Complications: none Medical Decision Making - Medical Decision Making I did discuss findings the patient's . Patient is a full code. Patient will be admitted ICU. The case was discussed with Dr. Hudson as well as Dr. Parmar. - Lab Data Result diagrams: 03/25/19 10:35 03/25/19 10:35 Lab Results 03/25/19 03/25/19 03/25/19 Range/Units 10:35 10:35 10:35 WBC 22.8 H (3.8-10.6) k/uL RBC 3.30 L (3.80-5.40) m/uL Hgb 11.0 L (11.4-16.0) gm/dL Hct 34.6 (34.0-46.0) % MCV 104.8 H D (80.0-100.0) fL MCH 33.2 (25.0-35.0) pg MCHC 31.7 (31.0-37.0) g/dL RDW 17.3 H (11.5-15.5) % Plt Count 156 (150-450) k/uL Neutrophils % (Manual) 90 % Band Neutrophils % 5 % Lymphocytes % (Manual) 1 % Monocytes % (Manual) 2 % Eosinophils % (Manual) 1 % Metamyelocytes % 1 % Myelocytes % 1 % Neutrophils # (Manual) 21.60 H (1.3-7.7) k/uL Lymphocytes # (Manual) 0.23 L (1.0-4.8) k/uL Monocytes # (Manual) 0.46 (0-1.0) k/uL Eosinophils # (Manual) 0.23 (0-0.7) k/uL Metamyelocytes # (Man) 0.23 H (0) k/uL Myelocytes # (Manual) 0.23 H (0) k/uL Nucleated RBCs 0 (0-0) /100 WBC Manual Slide Review Performed Toxic Vacuolation Present Polychromasia Present Hypochromasia Slight Anisocytosis Slight Macrocytosis Moderate PT (9.0-12.0) sec INR (<1.2) APTT (22.0-30.0) sec Sample Site ABG pH (7.35-7.45) ABG pCO2 (35-45) mmHg ABG pO2 (83-108) mmHg ABG HCO3 (21-25) mmol/L ABG Total CO2 (19-24) mmol/L ABG O2 Saturation (94-97) % ABG Base Excess mmol/L Joaquim Test FiO2 % Sodium 130 L (137-145) mmol/L Potassium 5.1 (3.5-5.1) mmol/L Chloride 91 L (98-107) mmol/L Carbon Dioxide 19 L (22-30) mmol/L Anion Gap 20 mmol/L BUN 63 H (7-17) mg/dL Creatinine 5.60 H (0.52-1.04) mg/dL Est GFR (CKD-EPI)AfAm 8 (>60 ml/min/1.73 sqM) Est GFR (CKD-EPI)NonAf 7 (>60 ml/min/1.73 sqM) Glucose 129 H (74-99) mg/dL Lactic Ac Sepsis Rflx Plasma Lactic Acid Erich (0.7-2.0) mmol/L Calcium 9.0 (8.4-10.2) mg/dL Magnesium 1.6 (1.6-2.3) mg/dL Total Bilirubin 0.5 (0.2-1.3) mg/dL AST 74 H (14-36) U/L ALT 117 H (9-52) U/L Alkaline Phosphatase 239 H (38-126) U/L Creatine Kinase 80 (30-135) U/L Troponin I (0.000-0.034) ng/mL NT-Pro-B Natriuret Pep 33201 pg/mL Total Protein 5.5 L (6.3-8.2) g/dL Albumin 2.7 L (3.5-5.0) g/dL 03/25/19 03/25/19 03/25/19 Range/Units 10:35 10:35 10:35 WBC (3.8-10.6) k/uL RBC (3.80-5.40) m/uL Hgb (11.4-16.0) gm/dL Hct (34.0-46.0) % MCV (80.0-100.0) fL MCH (25.0-35.0) pg MCHC (31.0-37.0) g/dL RDW (11.5-15.5) % Plt Count (150-450) k/uL Neutrophils % (Manual) % Band Neutrophils % % Lymphocytes % (Manual) % Monocytes % (Manual) % Eosinophils % (Manual) % Metamyelocytes % % Myelocytes % % Neutrophils # (Manual) (1.3-7.7) k/uL Lymphocytes # (Manual) (1.0-4.8) k/uL Monocytes # (Manual) (0-1.0) k/uL Eosinophils # (Manual) (0-0.7) k/uL Metamyelocytes # (Man) (0) k/uL Myelocytes # (Manual) (0) k/uL Nucleated RBCs (0-0) /100 WBC Manual Slide Review Toxic Vacuolation Polychromasia Hypochromasia Anisocytosis Macrocytosis PT 10.3 (9.0-12.0) sec INR 1.0 (<1.2) APTT 22.4 (22.0-30.0) sec Sample Site ABG pH (7.35-7.45) ABG pCO2 (35-45) mmHg ABG pO2 (83-108) mmHg ABG HCO3 (21-25) mmol/L ABG Total CO2 (19-24) mmol/L ABG O2 Saturation (94-97) % ABG Base Excess mmol/L Joaquim Test FiO2 % Sodium (137-145) mmol/L Potassium (3.5-5.1) mmol/L Chloride (98-107) mmol/L Carbon Dioxide (22-30) mmol/L Anion Gap mmol/L BUN (7-17) mg/dL Creatinine (0.52-1.04) mg/dL Est GFR (CKD-EPI)AfAm (>60 ml/min/1.73 sqM) Est GFR (CKD-EPI)NonAf (>60 ml/min/1.73 sqM) Glucose (74-99) mg/dL Lactic Ac Sepsis Rflx Plasma Lactic Acid Erich 2.8 H* (0.7-2.0) mmol/L Calcium (8.4-10.2) mg/dL Magnesium (1.6-2.3) mg/dL Total Bilirubin (0.2-1.3) mg/dL AST (14-36) U/L ALT (9-52) U/L Alkaline Phosphatase (38-126) U/L Creatine Kinase (30-135) U/L Troponin I 2.010 H* (0.000-0.034) ng/mL NT-Pro-B Natriuret Pep pg/mL Total Protein (6.3-8.2) g/dL Albumin (3.5-5.0) g/dL 03/25/19 03/25/19 Range/Units 11:13 11:43 WBC (3.8-10.6) k/uL RBC (3.80-5.40) m/uL Hgb (11.4-16.0) gm/dL Hct (34.0-46.0) % MCV (80.0-100.0) fL MCH (25.0-35.0) pg MCHC (31.0-37.0) g/dL RDW (11.5-15.5) % Plt Count (150-450) k/uL Neutrophils % (Manual) % Band Neutrophils % % Lymphocytes % (Manual) % Monocytes % (Manual) % Eosinophils % (Manual) % Metamyelocytes % % Myelocytes % % Neutrophils # (Manual) (1.3-7.7) k/uL Lymphocytes # (Manual) (1.0-4.8) k/uL Monocytes # (Manual) (0-1.0) k/uL Eosinophils # (Manual) (0-0.7) k/uL Metamyelocytes # (Man) (0) k/uL Myelocytes # (Manual) (0) k/uL Nucleated RBCs (0-0) /100 WBC Manual Slide Review Toxic Vacuolation Polychromasia Hypochromasia Anisocytosis Macrocytosis PT (9.0-12.0) sec INR (<1.2) APTT (22.0-30.0) sec Sample Site RRAD ABG pH 7.31 L (7.35-7.45) ABG pCO2 40 (35-45) mmHg ABG pO2 >400 H (83-108) mmHg ABG HCO3 20 L (21-25) mmol/L ABG Total CO2 21 (19-24) mmol/L ABG O2 Saturation 99.4 H (94-97) % ABG Base Excess -6.0 mmol/L Joaquim Test Yes FiO2 100 % Sodium (137-145) mmol/L Potassium (3.5-5.1) mmol/L Chloride (98-107) mmol/L Carbon Dioxide (22-30) mmol/L Anion Gap mmol/L BUN (7-17) mg/dL Creatinine (0.52-1.04) mg/dL Est GFR (CKD-EPI)AfAm (>60 ml/min/1.73 sqM) Est GFR (CKD-EPI)NonAf (>60 ml/min/1.73 sqM) Glucose (74-99) mg/dL Lactic Ac Sepsis Rflx Y Plasma Lactic Acid Erich (0.7-2.0) mmol/L Calcium (8.4-10.2) mg/dL Magnesium (1.6-2.3) mg/dL Total Bilirubin (0.2-1.3) mg/dL AST (14-36) U/L ALT (9-52) U/L Alkaline Phosphatase (38-126) U/L Creatine Kinase (30-135) U/L Troponin I (0.000-0.034) ng/mL NT-Pro-B Natriuret Pep pg/mL Total Protein (6.3-8.2) g/dL Albumin (3.5-5.0) g/dL - EKG Data -: EKG Interpreted by Me (Sinus tachycardia of 121. Interval 214 QRS 126 QT since QTC 344/48 right a) 03/25/19 14:24 Sinus tachycardia first 3 AV block rate of 121. Interval 214 QRS duration 126 QT/QTC 344/48 right atrial enlargement nonspecific interventricular block - Radiology Data Radiology results: report reviewed (I did review the imaging and reports the initial endotracheal tube was in good position. There is evidence of multilobar right-sided pneumonia. Additionally the central line showed good positioning no evidence of pneumothorax), image reviewed Critical Care Time Critical Care Time: Yes Critical Care Time: 59 minutes of critical care time which does not include intubation or line placement. This does include initial presentation with history physical labs x- rays multiple re-evaluations the patient. Multiple discussion with the patient's family discussed with paramedics on arrival. Review of old charting was available discussed with the admitting physician and ICU physician. Admission orders sec mentation the above Disposition Clinical Impression: Acute respiratory distress syndrome in adult, Respiratory failure, Febrile illness, acute, Pneumonia, Hypotension, Sepsis, Acute exacerbation of chronic obstructive airways disease, Lactic acidosis, End stage renal disease Disposition: ADMITTED IP TO THIS HOSP Condition: Critical Referrals: Dayton Hinson DO [Primary Care Provider] - 1-2 days
[2019-03-25 14:37] LABS: Appearance,Urine Turbid (Clear); Bacteria,Urine Many /hpf; Bilirubin,Urine Negative (Negative); Blood,Urine Moderate (Negative); Color,Urine Light Red; Glucose,Urine (UA) Negative (Negative); Ketones,Urine Negative (Negative); Leukocyte Esterase,Urine Large (Negative); Mucus,Urine Many /hpf; Nitrite,Urine Negative (Negative); PH, Urine 5.5 (5.0-8.0); Protein,Urine 1+ (Negative); RBC,Urine 37 /hpf (0-5); Specific Gravity,Urine 1.019 (1.001-1.035); Urobilinogen,Urine <2.0 mg/dL (<2.0)
[2019-03-25] MEDS ORDERED: NALOXONE 0.4 MG/ML 1 ML VIAL IV PRN (14:48)
[2019-03-25] MEDS ORDERED: SODIUM CHLORIDE 0.9% 1,000 ML IV SCH (15:00)
[2019-03-25 15:58] LABS: Glucose,Whole Blood 89 mg/dL (75-99)
--- NOTE | 2019-03-25 16:19 | P.CNPUL ---
History of Present Illness Consult date: 03/25/19 Reason for consult: dyspnea, pneumonia History of present illness: This is a 71-year-old female patient, with multiple medical problems and comor bidities. The patient came into the emergency department today with complaints of shortness of breath. She was very weak and she was in respiratory failure. The patient was intubated in the emergency department as the patient was diagnosed having a multilobar right lung pneumonia. The patient was brought into the intensive care unit intubated on a mechanical ventilator. She has already received a dose of cefepime. This patient has extensive history. 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 Subsequently the patient presented back into the hospital for difficulties with vision and the patient was diagnosed having an acute to subacute ischemic stroke involving the left occipital lobe and the left occipitoparietal junction. 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 She was also found to have a right ICA stenosis just above 70%. She has vascular dementia. In addition to that she has end- stage renal disease and she is on peritoneal dialysis. She suffers from chronic atrial fibrillation and anticoagulants. She has hypertension, COPD with a baseline FEV1 of 42% of predicted, diastolic heart failure, hypertension, and rheumatoid arthritis in addition to chronic anemia and hyperlipidemia. The patient has had multiple hospitalizations most recent of which was approximately 10 days ago. Currently she is sedated with propofol and she is calm and comfortable. She has received a total of 2 L of IV fluids. She is currently on assist control mode of ventilation at the rate of 16 him a tidal volume of 450, FiO2 of 50% with a PEEP of 5. She is in atrial fibrillation. She is on norepinephrine infusion running at 0.075 g per KG per minute. She has a triple-lumen catheter in the right subclavian. She had an abnormal UA with a white cell count of more than 182 with many bacteria and white cell clumps. Her white cell count is 22.8. Her creatinine is at 5.6 with a mean of 63. The patient's sodium is at 130. Lactic acid level is at 2.6. The patient's echocardiogram showed ejection fraction of 50-55%. Review of Systems ROS unobtainable: due to endotracheal tube Past Medical History Past Medical History: Atrial Fibrillation, Asthma, Heart Failure (Diastolic heart failure), COPD, CVA/TIA, Dementia, Dialysis, Eye Disorder, GERD/Reflux, Hypertension, Osteoarthritis (OA), Pneumonia, Renal Disease, Rheumatoid Arthritis (RA), Syncope, Thyroid Disorder Additional Past Medical History / Comment(s): COPD, history of hemorrhagic cerebellar CVA on the right requiring neurosurgical intervention, right ICA stenosis in the order of 70%, history of stroke involving the left occipital and occipital lobe parietal junction with secondary cortical blindness, chronic atrial fibrillation, prior CVA back in 2005, chronic hypoxic respiratory failure, end-stage renal disease and the patient is currently on peritoneal dialysis, chronic anemia, moderate arthritis, hypertension, hyperlipidemia, hypothyroidism History of Any Multi-Drug Resistant Organisms: None Reported Past Surgical History: Tonsillectomy Additional Past Surgical History / Comment(s): ORIF rt ankle-[address], IUD removal, lumbar steroid injections, dental implants, cardioversion, dialysis cath. Past Anesthesia/Blood Transfusion Reactions: No Reported Reaction Additional Past Anesthesia/Blood Transfusion Reaction / Comment(s): Past blood transfusions - no reaction Smoking Status: Former smoker - Past Family History Mother Family Medical History: Vascular Disorder Additional Family Medical History / Comment(s): Mother in her 80s from abdominal aortic aneurysm. Father Family Medical History: Myocardial Infarction ([place]) Additional Family Medical History / Comment(s): Father at age 52 from acute [place]. Medications and Allergies Home Medications Medication Instructions Recorded Confirmed Type Omeprazole [PriLOSEC] 20 mg PO DAILY 12/28/18 03/25/19 History Ipratropium-Albuterol Nebulize 3 ml INHALATION RT-Q4H 01/27/19 03/25/19 History [Duoneb 0.5 mg-3 mg/3 ml Soln] Budesonide/Formoterol Fumarate 2 puff INHALATION RT-BID 02/21/19 03/25/19 History [Symbicort 160-4.5 Mcg Inhaler] Calcium Acetate [PhosLo] 667 mg PO AC-TID 02/21/19 03/25/19 History Melatonin 1 mg PO HS 02/21/19 03/25/19 History Acetaminophen Tab [Tylenol] 650 mg PO TID 03/08/19 03/25/19 History ALPRAZolam [Xanax] 0.25 mg PO Q8H PRN #9 tab 03/11/19 03/25/19 Rx Amiodarone [Cordarone] 200 mg PO DAILY #0 03/11/19 03/25/19 Rx Aspirin 81 mg PO DAILY #1 chewable 03/11/19 03/25/19 Rx Clopidogrel [Plavix] 75 mg PO DAILY tab 03/11/19 03/25/19 Rx Metoprolol Tartrate [Lopressor] 50 mg PO BID tab 03/11/19 03/25/19 Rx Atorvastatin [Lipitor] 80 mg PO DAILY@199903/25/19 03/25/19 History Sertraline HCl [Zoloft] 25 mg PO DAILY 03/25/19 03/25/19 History Allergies Allergy/AdvReac Type Severity Reaction Status Date / Time No Known Allergies Allergy Verified 03/25/19 11:51 Physical Exam Vitals: Vital Signs Temp Pulse Resp BP Pulse Ox 03/25/19 15:55 98 F 03/25/19 15:23 119 H 32 H 114/80 100 03/25/19 15:11 123 H 32 H 94/83 100 03/25/19 14:45 111 H 30 H 87/52 100 03/25/19 14:20 113 H 18 82/67 100 03/25/19 13:30 110 H 30 H 78/40 100 03/25/19 13:10 108 H 18 108/80 03/25/19 13:00 105 H 28 H 92/55 100 03/25/19 12:40 109 H 30 H 80/57 100 03/25/19 12:30 110 H 27 H 85/46 100 03/25/19 11:47 91 30 H 82/68 100 03/25/19 11:38 39 H 03/25/19 11:22 96 18 76/60 100 03/25/19 11:15 98 18 87/56 100 03/25/19 10:48 115 H 16 90/52 100 03/25/19 10:40 120 H 39 H 86/52 91 L 03/25/19 10:20 100.1 F H 120 H 39 H 65/35 91 L Intake and Output 03/25/19 03/25/19 03/25/19 06:59 14:59 22:59 Intake Total 13.328 Balance 13.328 Intake: Intake, IV Titration 13.328 Amount Norepinephrine 4 mg In 13.328 Sodium Chloride 0.9% 250 ml @ 0.05 MCG/KG/MIN 12. 154 mls/hr IV .[id number] [facility] Rx#:[id number] Other: Weight 63.796 kg Gen. appearance the patient is quite debilitated currently sedated and intubated on a mechanical ventilator Head exam was generally normal. There was no scleral icterus or corneal arcus. Mucous membranes were moist. Neck was supple and without jugular venous distension, thyromegaly, or carotid bruits. Carotids were easily palpable bilaterally. There was no adenopathy. The patient has a right subclavian triple lumen catheter in place Lungs sounds are diminished bilaterally along with scattered rhonchi heard throughout the lung. The right along with scattered expiratory wheeze. Cardiac exam revealed the PMI to be normally situated and sized. The rhythm was irregular consistent with atrial fibrillation and no extrasystoles were noted during several minutes of auscultation. The first and second heart sounds were irregular and physiologic splitting of the second heart sound was noted. There were no murmurs, rubs, clicks, or gallops. Abdominal exam revealed normal bowel sounds. The abdomen was soft, non-tender, and without masses, organomegaly, or appreciable enlargement of the abdominal aorta. The patient has a peritoneal catheter in place without any abnormalities a day exit site or any discharge or irritation. Examination of the extremities revealed easily palpable radial, femoral and pedal pulses. There was no cyanosis, clubbing or edema. Centimeters are quite atrophic muscles and there is no open wounds or sores. Examination of the skin revealed no evidence of significant rashes, suspicious appearing nevi or other concerning lesions. Neurologically the patient is sedated. An accurate neurologic evaluation cannot be done. No facial asymmetry. Pupils are equal and reactive to light. Positive cough and gag. There is adequate with old to painful stimulation. Results - Laboratory Findings CBC and BMP: 03/25/19 10:35 03/25/19 10:35 ABG ABG pH 7.31 (7.35-7.45) L 03/25/19 11:43 ABG pCO2 40 mmHg (35-45) 03/25/19 11:43 ABG pO2 >400 mmHg (83-108) H 03/25/19 11:43 ABG O2 Saturation 99.4 % (94-97) H 03/25/19 11:43 PT/INR, D-dimer PT 10.3 sec (9.0-12.0) 03/25/19 10:35 INR 1.0 (<1.2) 03/25/19 10:35 Abnormal lab findings: Abnormal Labs 03/25/19 03/25/19 03/25/19 10:35 10:35 10:35 WBC 22.8 H RBC 3.30 L Hgb 11.0 L MCV 104.8 H D RDW 17.3 H Neutrophils # (Manual) 21.60 H Lymphocytes # (Manual) 0.23 L Metamyelocytes # (Man) 0.23 H Myelocytes # (Manual) 0.23 H ABG pH ABG pO2 ABG HCO3 ABG O2 Saturation Sodium 130 L Chloride 91 L Carbon Dioxide 19 L BUN 63 H Creatinine 5.60 H Glucose 129 H Plasma Lactic Acid Erich AST 74 H ALT 117 H Alkaline Phosphatase 239 H Troponin I 2.010 H* Total Protein 5.5 L Albumin 2.7 L Urine Appearance Urine Protein Urine Blood Ur Leukocyte Esterase Urine RBC Urine WBC Urine WBC Clumps Urine Bacteria Urine Mucus 03/25/19 03/25/19 03/25/19 10:35 10:57 11:43 WBC RBC Hgb MCV RDW Neutrophils # (Manual) Lymphocytes # (Manual) Metamyelocytes # (Man) Myelocytes # (Manual) ABG pH 7.31 L ABG pO2 >400 H ABG HCO3 20 L ABG O2 Saturation 99.4 H Sodium Chloride Carbon Dioxide BUN Creatinine Glucose Plasma Lactic Acid Erich 2.8 H* AST ALT Alkaline Phosphatase Troponin I Total Protein Albumin Urine Appearance Turbid H Urine Protein 1+ H Urine Blood Moderate H Ur Leukocyte Esterase Large H Urine RBC 37 H Urine WBC >182 H Urine WBC Clumps Many H Urine Bacteria Many H Urine Mucus Many H 03/25/19 15:10 WBC RBC Hgb MCV RDW Neutrophils # (Manual) Lymphocytes # (Manual) Metamyelocytes # (Man) Myelocytes # (Manual) ABG pH ABG pO2 ABG HCO3 ABG O2 Saturation Sodium Chloride Carbon Dioxide BUN Creatinine Glucose Plasma Lactic Acid Erich 2.6 H* AST ALT Alkaline Phosphatase Troponin I Total Protein Albumin Urine Appearance Urine Protein Urine Blood Ur Leukocyte Esterase Urine RBC Urine WBC Urine WBC Clumps Urine Bacteria Urine Mucus - Diagnostic Findings Chest x-ray: image reviewed Assessment and Plan Plan: 1 multilevel right lung pneumonia, consider hospital-acquired. Consider aspiration. Consider healthcare associate pneumonia the patient has been hospitalized on multiple occasions over the past few months. 2 acute hypoxic respiratory failure currently intubated on a mechanical ventilator. 3 . Sepsis secondary to pneumonia currently hypotensive on pressors 4 leukocytosis secondary to above 5 End stage renal disease currently on peritoneal dialysis 6 urinary tract infection 7 COPD with a baseline FEV1 of 42% of predicted 8 chronic hypoxic respiratory failure secondary to COPD 9 acute/subacute ischemic stroke involving the left occipital lobe and left parietal occipital junction. These toes could've been related to atrial fibrillation but possibility of thrombotic stroke involving the posterior ci rculation cannot be completely excluded. 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 Obtain sputum culture. Obtain cultures from the peritoneal fluid. Obtain a urine culture. Cover the patient with a combination of Zosyn and vancomycin. Give additional 2 L of IV fluids and keep her on a maintenance fluid of 100 mL an hour. Insert an outlying catheter. Monitor CVP. Wean off pressors if possible. Continue aspirin and Plavix. Continue oral amiodarone and will increase the dose up to 200 mg twice a day. Hold metoprolol for another the patient's blood pressures is more stable. Will monitor the blood gases necessary ventilator changes will be done. We'll monitor blood work and electrolytes. We'll continue to follow make further recommendations based on the patient's progress. Condition is critical. We'll discuss this with the family.
[2019-03-25] MEDS ORDERED: VANCOMYCIN IV PER PHARMACY 1 EACH MISC MISCELLANE PRN (16:20)
[2019-03-25] MEDS: IPRATROPIUM-ALBUTEROL 3 ML NEB INHALATION SCH ×2 (16:25→19:58)
[2019-03-25] MEDS: SODIUM CHLORIDE 0.9% 1,000 ML IV SCH ×3 (16:39→17:55)
[2019-03-25] MEDS ORDERED: IPRATROPIUM-ALBUTEROL 3 ML NEB INHALATION PRN (16:44)
[2019-03-25] MEDS ORDERED: VANCOMYCIN 1,250 MG in SODIUM CHLORIDE 0.9% 250 ML IVPB ONE (16:45)
[2019-03-25] MEDS: NOREPINEPHRINE 32 MG in SODIUM CHLORIDE 0.9% 218 ML IV SCH (17:43)
[2019-03-25] MEDS: ENOXAPARIN 30 MG/0.3 ML SYRINGE SQ SCH (17:43)
--- NOTE | 2019-03-25 17:43 | P.HPIM ---
History of Present Illness H&P Date: 03/25/19 Chief Complaint: Short of breath History of presenting complaint: This is a 73-year-old patient with extensive medical history as chronic stable medical conditions include COPD, end-stage kidney disease on peritoneal dialysis, hypertensive heart disease, proximal atrial fibrillation, chronic rheumatoid arthritis, hyperlipidemia, mineral bone disease from chronic kidney disease, anemia of chronic kidney disease, secondary pulmonary hypertension, lateral chronic renal artery stenosis, chronic congestive heart failure from diastolic dysfunction EF 55-60%. Patient also had acute intraparenchymal hemorrhage in the right mid cerebral hemisphere on February 03 requiring t johanasfer to [facility],. Patientis currently a resident of [facility]. Patient was recently the hospital from March 08 through March 11. Presented with unable to see. Computed tomography scan of the brain did confirm a acute left occipital lobe and acute occipitoparietal junction infarct. Patient today presents from the [facility]. Increasing short of breath. As per the patient oral intake for last couple of days at gone down. Feeling more and more tired. Patient followed pneumonia in the ER. Probably right side. As patient is in respiratory distress she had to be intubated. FiO2 50 and PEEP of 5. Also requiring levo fed drip. Admitted to the ICU Review of systems cannot be done. Patient intubated Past medical history to include as above Social history: Currently a resident of [facility]. Patient smoked a pack and half of cigarettes from 1973 through 2007. Patient did drink heavily in the past. . Physical examination: VITAL SIGNS: 100.1, 120, 39, 65/35, 91% on 2 L-upon presentation GENERAL: BMI 24.1, laying in bed intubated. EYES: Pupils equal. Conjunctiva normal. HEENT: External appearance of nose and ears normal, oral cavity grossly normal. Endotracheal tube in place NECK: JVD unable to assess; masses not palpable. HEART: Heart sounds irregular; no edema. LUNGS: Respiratory rate increased; decreased breath sound. ABDOMEN: Soft, PT catheter in place, nontender, liver spleen not palpable, no masses palpable. PSYCH: Unable to assess as patient intubated NEUROLOGICAL: Pupils equal, spontaneous movement of limbs. LYMPHATICS: No lymph nodes palpable in the axilla and neck INVESTIGATIONS, reviewed in the clinical context: White count 22.8 hemoglobin 11 sodium 1:30 progression 5.1 bun 63 creatinine 5.6 Troponin I 2.0 albumin 2.7 EKG tracing personally reviewed by me-shows diffuse ST segment changes Chest x-ray film personally reviewed by me-diffuse right-sided infiltrates Assessment: -Right-sided multilobar pneumonia suspect gram-negative organism -Acute hypoxic respiratory failure, causing respiratory distress requiring ventilator support -Recent Acute stroke possibly embolic in the left occipital lobe and left occipitoparietal junction infarct -Positive troponin likely hemodynamically mismatch, cannot rule out acute [place] -COPD in an ex-smoker, -end-stage kidney disease on peritoneal dialysis, - hypertensive heart disease, -Paroxysmal atrial flutter atrial fibrillation, - chronic rheumatoid arthritis, - hyperlipidemia, - mineral bone disease from chronic kidney disease, - anemia of chronic kidney disease, - secondary pulmonary hypertension, -Bilateral chronic renal artery stenosis, -chronic congestive heart failure from diastolic dysfunction EF 55-60%. - acute intraparenchymal hemorrhage in the right mid cerebral hemisphere on February 03 requiring transfer to [facility], -Code full Plan: Care was discussed with the patient and the bedside. Did explain the poor prognosis. Patient remains to be a full code. Admitted to the ICU. Home medications resumed. On levo fed drip. Peritoneal dialysis to continue. Patient is on vancomycin. Will add cefepime. Consultation will need to nephrology and cardiology. Past Medical History Past Medical History: Atrial Fibrillation, Asthma, Heart Failure (Diastolic heart failure), COPD, CVA/TIA, Dementia, Dialysis, Eye Disorder, GERD/Reflux, Hypertension, Osteoarthritis (OA), Pneumonia, Renal Disease, Rheumatoid Arthritis (RA), Syncope, Thyroid Disorder Additional Past Medical History / Comment(s): COPD, history of hemorrhagic cerebellar CVA on the right requiring neurosurgical intervention, right ICA stenosis in the order of 70%, history of stroke involving the left occipital and occipital lobe parietal junction with secondary cortical blindness, chronic atrial fibrillation, prior CVA back in 2005, chronic hypoxic respiratory failure, end-stage renal disease and the patient is currently on peritoneal dialysis, chronic anemia, moderate arthritis, hypertension, hyperlipidemia, hypothyroidism History of Any Multi-Drug Resistant Organisms: None Reported Past Surgical History: Tonsillectomy Additional Past Surgical History / Comment(s): ORIF rt ankle-[address], IUD removal, lumbar steroid injections, dental implants, cardioversion, dialysis cath. Past Anesthesia/Blood Transfusion Reactions: No Reported Reaction Additional Past Anesthesia/Blood Transfusion Reaction / Comment(s): Past blood transfusions - no reaction Smoking Status: Former smoker - Past Family History Mother Family Medical History: Vascular Disorder Additional Family Medical History / Comment(s): Mother in her 80s from abdominal aortic aneurysm. Father Family Medical History: Myocardial Infarction ([place]) Additional Family Medical History / Comment(s): Father at age 52 from acute [place]. Medications and Allergies Home Medications Medication Instructions Recorded Confirmed Type Omeprazole [PriLOSEC] 20 mg PO DAILY 12/28/18 03/25/19 History Ipratropium-Albuterol Nebulize 3 ml INHALATION RT-Q4H 01/27/19 03/25/19 History [Duoneb 0.5 mg-3 mg/3 ml Soln] Budesonide/Formoterol Fumarate 2 puff INHALATION RT-BID 02/21/19 03/25/19 History [Symbicort 160-4.5 Mcg Inhaler] Calcium Acetate [PhosLo] 667 mg PO AC-TID 02/21/19 03/25/19 History Melatonin 1 mg PO HS 02/21/19 03/25/19 History Acetaminophen Tab [Tylenol] 650 mg PO TID 03/08/19 03/25/19 History ALPRAZolam [Xanax] 0.25 mg PO Q8H PRN #9 tab 03/11/19 03/25/19 Rx Amiodarone [Cordarone] 200 mg PO DAILY #0 03/11/19 03/25/19 Rx Aspirin 81 mg PO DAILY #1 chewable 03/11/19 03/25/19 Rx Clopidogrel [Plavix] 75 mg PO DAILY tab 03/11/19 03/25/19 Rx Metoprolol Tartrate [Lopressor] 50 mg PO BID tab 03/11/19 03/25/19 Rx Atorvastatin [Lipitor] 80 mg PO DAILY@199903/25/19 03/25/19 History Sertraline HCl [Zoloft] 25 mg PO DAILY 03/25/19 03/25/19 History Allergies Allergy/AdvReac Type Severity Reaction Status Date / Time No Known Allergies Allergy Verified 03/25/19 11:51 Physical Exam Vitals: Vital Signs Temp Pulse Resp BP Pulse Ox 03/25/19 17:15 94 22 111/68 96 03/25/19 17:00 84 23 91/63 96 03/25/19 16:45 85 19 91/63 96 03/25/19 16:44 91 03/25/19 16:30 94 14 91/63 98 03/25/19 16:25 96 27 H 91/63 98 03/25/19 15:55 98 F 03/25/19 15:23 119 H 32 H 114/80 100 03/25/19 15:11 123 H 32 H 94/83 100 03/25/19 14:45 111 H 30 H 87/52 100 03/25/19 14:20 113 H 18 82/67 100 03/25/19 13:30 110 H 30 H 78/40 100 03/25/19 13:10 108 H 18 108/80 03/25/19 13:00 105 H 28 H 92/55 100 03/25/19 12:40 109 H 30 H 80/57 100 03/25/19 12:30 110 H 27 H 85/46 100 03/25/19 11:47 91 30 H 82/68 100 03/25/19 11:38 39 H 03/25/19 11:22 96 18 76/60 100 03/25/19 11:15 98 18 87/56 100 03/25/19 10:48 115 H 16 90/52 100 03/25/19 10:40 120 H 39 H 86/52 91 L 03/25/19 10:20 100.1 F H 120 H 39 H 65/35 91 L Intake and Output 03/25/19 03/25/19 03/25/19 06:59 14:59 22:59 Intake Total 13.328 1999 Output Total 0 Balance 13.328 1999 Intake: IV 1999 Sodium Chloride 0.9% 1, 1999 000 ml @ 999 mls/hr IV . Q1H1M [facility] Rx#:[id number] Intake, IV Titration 13.328 Amount Norepinephrine 4 mg In 13.328 Sodium Chloride 0.9% 250 ml @ 0.05 MCG/KG/MIN 12. 154 mls/hr IV .[id number] [facility] Rx#:[id number] Output: Urine 0 Other: Weight 63.796 kg ABP, PAP, CO, CI - Last 8 Hours Arterial Blood Pressure 124/60 Arterial Blood Pressure 115/62 Arterial Blood Pressure 119/61 Arterial Blood Pressure 100/54 Arterial Blood Pressure 102/53 Results CBC & Chem 7: 03/25/19 10:35 03/25/19 10:35 Labs: Abnormal Lab Results - Last 24 Hours (Table) 03/25/19 03/25/19 03/25/19 Range/Units 10:35 10:35 10:35 WBC 22.8 H (3.8-10.6) k/uL RBC 3.30 L (3.80-5.40) m/uL Hgb 11.0 L (11.4-16.0) gm/dL MCV 104.8 H D (80.0-100.0) fL RDW 17.3 H (11.5-15.5) % Neutrophils # (Manual) 21.60 H (1.3-7.7) k/uL Lymphocytes # (Manual) 0.23 L (1.0-4.8) k/uL Metamyelocytes # (Man) 0.23 H (0) k/uL Myelocytes # (Manual) 0.23 H (0) k/uL ABG pH (7.35-7.45) ABG pO2 (83-108) mmHg ABG HCO3 (21-25) mmol/L ABG O2 Saturation (94-97) % Sodium 130 L (137-145) mmol/L Chloride 91 L (98-107) mmol/L Carbon Dioxide 19 L (22-30) mmol/L BUN 63 H (7-17) mg/dL Creatinine 5.60 H (0.52-1.04) mg/dL Glucose 129 H (74-99) mg/dL Plasma Lactic Acid Erich (0.7-2.0) mmol/L AST 74 H (14-36) U/L ALT 117 H (9-52) U/L Alkaline Phosphatase 239 H (38-126) U/L Troponin I 2.010 H* (0.000-0.034) ng/mL Total Protein 5.5 L (6.3-8.2) g/dL Albumin 2.7 L (3.5-5.0) g/dL Urine Appearance (Clear) Urine Protein (Negative) Urine Blood (Negative) Ur Leukocyte Esterase (Negative) Urine RBC (0-5) /hpf Urine WBC (0-5) /hpf Urine WBC Clumps (None) /hpf Urine Bacteria (None) /hpf Urine Mucus (None) /hpf 03/25/19 03/25/19 03/25/19 Range/Units 10:35 10:57 11:43 WBC (3.8-10.6) k/uL RBC (3.80-5.40) m/uL Hgb (11.4-16.0) gm/dL MCV (80.0-100.0) fL RDW (11.5-15.5) % Neutrophils # (Manual) (1.3-7.7) k/uL Lymphocytes # (Manual) (1.0-4.8) k/uL Metamyelocytes # (Man) (0) k/uL Myelocytes # (Manual) (0) k/uL ABG pH 7.31 L (7.35-7.45) ABG pO2 >400 H (83-108) mmHg ABG HCO3 20 L (21-25) mmol/L ABG O2 Saturation 99.4 H (94-97) % Sodium (137-145) mmol/L Chloride (98-107) mmol/L Carbon Dioxide (22-30) mmol/L BUN (7-17) mg/dL Creatinine (0.52-1.04) mg/dL Glucose (74-99) mg/dL Plasma Lactic Acid Erich 2.8 H* (0.7-2.0) mmol/L AST (14-36) U/L ALT (9-52) U/L Alkaline Phosphatase (38-126) U/L Troponin I (0.000-0.034) ng/mL Total Protein (6.3-8.2) g/dL Albumin (3.5-5.0) g/dL Urine Appearance Turbid H (Clear) Urine Protein 1+ H (Negative) Urine Blood Moderate H (Negative) Ur Leukocyte Esterase Large H (Negative) Urine RBC 37 H (0-5) /hpf Urine WBC >182 H (0-5) /hpf Urine WBC Clumps Many H (None) /hpf Urine Bacteria Many H (None) /hpf Urine Mucus Many H (None) /hpf 03/25/19 Range/Units 15:10 WBC (3.8-10.6) k/uL RBC (3.80-5.40) m/uL Hgb (11.4-16.0) gm/dL MCV (80.0-100.0) fL RDW (11.5-15.5) % Neutrophils # (Manual) (1.3-7.7) k/uL Lymphocytes # (Manual) (1.0-4.8) k/uL Metamyelocytes # (Man) (0) k/uL Myelocytes # (Manual) (0) k/uL ABG pH (7.35-7.45) ABG pO2 (83-108) mmHg ABG HCO3 (21-25) mmol/L ABG O2 Saturation (94-97) % Sodium (137-145) mmol/L Chloride (98-107) mmol/L Carbon Dioxide (22-30) mmol/L BUN (7-17) mg/dL Creatinine (0.52-1.04) mg/dL Glucose (74-99) mg/dL Plasma Lactic Acid Erich 2.6 H* (0.7-2.0) mmol/L AST (14-36) U/L ALT (9-52) U/L Alkaline Phosphatase (38-126) U/L Troponin I (0.000-0.034) ng/mL Total Protein (6.3-8.2) g/dL Albumin (3.5-5.0) g/dL Urine Appearance (Clear) Urine Protein (Negative) Urine Blood (Negative) Ur Leukocyte Esterase (Negative) Urine RBC (0-5) /hpf Urine WBC (0-5) /hpf Urine WBC Clumps (None) /hpf Urine Bacteria (None) /hpf Urine Mucus (None) /hpf Microbiology - Last 24 Hours (Table) 03/25/19 11:05 Sputum Culture - Preliminary Sputum Thrombosis Risk Factor Assmnt - Choose All That Apply Any of the Below Risk Factors Present?: Yes Each Factor Represents 1 point: Abnormal pulmonary function (COPD), Medical pt on bed rest, Sepsis (< 1month), Serious lung disease incl. pneumonia (< 1month) Other Risk Factors: Yes Each Risk Factor Represents 2 Points: Age 61-74 years, Central venous access, Patient confined to bed Other congenital or acquired thrombophilia - If yes, enter type in comment: No Thrombosis Risk Factor Assessment Total Risk Factor Score: 10 Thrombosis Risk Factor Assessment Level: High Risk
[2019-03-25] MEDS: PROPOFOL 1,000 MG in EMPTY BAG 1 BAG IV SCH (17:44)
[2019-03-25] MEDS: DIALYSIS (PERIT 1.5%) 2,500 ML 37.5 G/2,500 ML BAG INTRAPERIT SCH (17:55)
[2019-03-25] MEDS: CHLORHEXIDINE GLUCONATE 15 ML CUP MUCOUS MEM SCH (20:27)
[2019-03-25] MEDS: PIPERACILLIN-TAZOBACTAM 3.375 GM in SODIUM CHLORIDE 0.9% 100 ML IVPB SCH (20:27)
[2019-03-25 21:02] LABS: Appearance,BF Hazy; Color,BF Colorless; Nucleated Cells, Body Fluid 91 /uL; RBC, Body Fluid 262 /uL
[2019-03-25 21:10] LABS: Mononuclear WBC,Body Fluid 1 %; Polynuclear WBC,Body Fluid 99 %; Total Cells Counted,Body Fluid 100
--- NOTE | 2019-03-25 23:24 | PCN ---
PROCEDURE NOTE ARTERIAL LINE PLACEMENT: Indications: Hemodynamic monitoring. A time-out was completed verifying correct patient, procedure, site, positioning, and implant(s) or special equipment if applicable. Joaquim's test was performed to ensure adequate perfusion. The patient's right wrist was prepped and draped in sterile fashion. 1% Lidocaine was used to anesthetize the area. An 18G Arrow arterial line was introduced into the radial artery. The catheter was threaded over the guide wire and the needle was removed with appropriate pulsatile blood return. Blood loss was minimal. The catheter was then sutured in place to the skin and a sterile dressing applied. Perfusion to the extremity distal to the point of catheter insertion was checked and found to be adequate. The patient tolerated the procedure well and there were no complications. No complications or bleeding. MMODL / IJN: [id number] /
[2019-03-26 00:12] LABS: Glucose,Whole Blood 118 mg/dL (75-99)
[2019-03-26] MEDS: PROPOFOL 1,000 MG in EMPTY BAG 1 BAG IV SCH ×3 (00:25→19:51)
[2019-03-26] MEDS: DIALYSIS (PERIT 1.5%) 2,500 ML 37.5 G/2,500 ML BAG INTRAPERIT SCH ×4 (00:34→18:17)
[2019-03-26] MEDS: IPRATROPIUM-ALBUTEROL 3 ML NEB INHALATION SCH ×6 (01:12→19:52)
[2019-03-26 04:53] LABS: ABG Base Excess -8.8 mmol/L; ABG HCO3 17 mmol/L (21-25); ABG Oxygen Saturation 98.8 % (94-97); ABG PCO2 34 mmHg (35-45); ABG PH 7.32 (7.35-7.45); ABG PO2 191 mmHg (83-108); ABG TCO2 18 mmol/L (19-24); Allen Test Performed? Yes
[2019-03-26 05:02] LABS: Calcium 7.2 mg/dL (8.4-10.2)
[2019-03-26 05:06] LABS: Anisocytosis Slight; HCT 28.3 % (34.0-46.0); Hypochromasia Moderate; MCH 33.1 pg (25.0-35.0); MCHC 31.2 g/dL (31.0-37.0); MCV 106.2 fL (80.0-100.0); Macrocytosis Marked; Mean Platelet Volume 7.8; Platelet Count 110 k/uL (150-450); RBC 2.66 m/uL (3.80-5.40); RDW 17.6 % (11.5-15.5); WBC 24.4 k/uL (3.8-10.6)
[2019-03-26 05:07] LABS: Potassium 5.2 mmol/L (3.5-5.1)
[2019-03-26 05:09] LABS: HGB 8.8 gm/dL (11.4-16.0)
[2019-03-26 05:37] LABS: Band Neutrophils % 46 %; Lymphocytes # (M) 0.98 k/uL (1.0-4.8); Monocytes # (M) 0.73 k/uL (0-1.0); Neutrophils % (M) 47 %; Nucleated Red Blood Cells 0 /100 WBC (0-0); Total Cells Counted 100
[2019-03-26 05:38] LABS: Polychromasia Present; Target Cells Present
[2019-03-26] MEDS: SODIUM CHLORIDE 0.9% 1,000 ML IV SCH (05:46)
--- NOTE | 2019-03-26 06:30 | XR ---
EXAMINATION TYPE: XR chest 1V portable DATE OF EXAM: 03/26/2019 HISTORY: Tube placement. REFERENCE: Previous study dated 03/25/2019. FINDINGS: The patient's NG tube, ET tube and left subclavian catheter remain in place, unchanged in a ppearance. There is continuing right upper lobe airspace disease. There is patchy airspace disease throughout th e right lung and developing in the left lung. I suspect a small right effusion. The heart is not enla rged. IMPRESSION: 1. PATCHY RIGHT-SIDED AIRSPACE DISEASE. 2. DEVELOPING LEFT-SIDED AIRSPACE DISEASE.
[2019-03-26] MEDS: PIPERACILLIN-TAZOBACTAM 3.375 GM in SODIUM CHLORIDE 0.9% 100 ML IVPB SCH ×2 (09:22→19:52)
[2019-03-26] MEDS: CHLORHEXIDINE GLUCONATE 15 ML CUP MUCOUS MEM SCH ×2 (09:23→19:52)
[2019-03-26] MEDS: PANTOPRAZOLE 40 MG/10 ML VIAL IV SCH (09:23)
--- NOTE | 2019-03-26 09:37 | P.PN ---
Subjective Progress Note Date: 03/26/19 This is a 71-year-old female patient, with multiple medical problems and comorbidities. The patient came into the emergency department today with complaints of shortness of breath. She was very weak and she was in respiratory failure. The patient was intubated in the emergency department as the patient was diagnosed having a multilobar right lung pneumonia. The patient was brought into the intensive care unit intubated on a mechanical ventilator. She has already received a dose of cefepime. This patient has extensive history. 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 Subsequently the patient presented back into the hospital for difficulties with vision and the patient was diagnosed having an acute to subacute ischemic stroke involving the left occipital lobe and the left occipitoparietal junction. 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 She was also found to have a right ICA stenosis just above 70%. She has vascular dementia. In addition to that she has end- stage renal disease and she is on peritoneal dialysis. She suffers from chronic atrial fibrillation and anticoagulants. She has hypertension, COPD with a baseline FEV1 of 42% of predicted, diastolic heart failure, hypertension, and rheumatoid arthritis in addition to chronic anemia and hyperlipidemia. The patient has had multiple hospitalizations most recent of which was approximately 10 days ago. Currently she is sedated with propofol and she is calm and comfortable. She has received a total of 2 L of IV fluids. She is currently on assist control mode of ventilation at the rate of 16 him a tidal volume of 450, FiO2 of 50% with a PEEP of 5. She is in atrial fibrillation. She is on norepinephrine infusion running at 0.075 g per KG per minute. She has a triple-lumen catheter in the right subclavian. She had an abnormal UA with a white cell count of more than 182 with many bacteria and white cell clumps. Her white cell count is 22.8. Her creatinine is at 5.6 with a mean of 63. The patient's sodium is at 130. Lactic acid level is at 2.6. The patient's echocardiogram showed ejection fraction of 50-55%. Today's evaluation of 03/26/2019 I'm seeing this patient for a follow-up. The patient remains sedated with propofol which is currently running at 25 g per KG per minute. She is was sedated and she is calm and comfortable. She remains on a mechanical ventilator. She is an assist-control mode at the rate of 40 with a tidal volume of 450 and FiO2 of 40% with a PEEP of 5. Her chest x-ray showed a right upper and right perihilar pneumonia and today's chest x-ray shows improvement in the right lower lobe pneumonia and she still has a consolidation in the right upper lobe. ET tube is in a good location. She has a triple-lumen catheter in place. No significant orotracheal secretions and cultures are still pending for now. Meanwhile, the patient was covered with a combination of Zosyn and vancomycin. Her blood pressures improved. She remains in atrial fibrillation. On today's evaluation, she was weaned off the Levothroid earlier this morning and levo fed was discontinued probably 30 minutes ago. She does not make much urine. She undergoes peritoneal dialysis. Peritoneal fluid was also sent for cultures. The patient is receiving IV fluid rate of 100 mL an hour. She is afebrile. White cell count remains elevated. There has been drop in hemoglobin down to 8.8, however there is no signs of any acute bleeding. BUN is at 54, creatinine is at 3.6, lactic acid level is down to 3.1. The blood gas es from today showed a pH of 7.32 with a pCO2 of 34 and pO2 of 191 and this was done and FiO2 of 50% and accordingly the FiO2 has been drop down to 40%. Objective - Vital Signs Vital signs: Vital Signs Temp 97.5 F L 03/26/19 08:00 Pulse 81 03/26/19 09:15 Resp 4 L 03/26/19 09:15 BP 117/77 03/26/19 09:15 Pulse Ox 100 03/26/19 09:15 Intake & Output 03/25/19 03/26/19 03/26/19 18:59 06:59 18:59 Intake Total 2247.388 1476.910 350.785 Output Total 0 0 0 Balance 2247.388 1476.910 350.785 Weight 63.796 kg 56.4 kg Intake: IV 2225 1230 309 Sodium Chloride 0.9% 1, 100 1200 300 000 ml @ 100 mls/hr IV . Q10H [facility] Rx#:[id number] Sodium Chloride 0.9% 1, 2000 000 ml @ 999 mls/hr IV . Q1H1M [facility] Rx#:[id number] Vancomycin 1,250 mg In 125 Sodium Chloride 0.9% 250 ml @ 125 mls/hr IVPB ONCE ONE Rx#:[id number] art line 30 9 Intake, IV Titration 22.388 246.910 41.785 Amount Norepinephrine 32 mg In 22.510 5.039 Sodium Chloride 0.9% 218 ml @ 0.05 MCG/KG/MIN 1. 495 mls/hr IV .Q24H [facility] Rx#:[id number] Norepinephrine 4 mg In 13.328 Sodium Chloride 0.9% 250 ml @ 0.05 MCG/KG/MIN 12. 154 mls/hr IV .[id number] [facility] Rx#:[id number] Piperacillin-Tazobactam 3 100 .375 gm In Sodium Chloride 0.9% 100 ml @ 25 mls/hr IVPB Q12HR [facility] Rx #:[id number] Propofol 1,000 mg In 9.06 124.400 36.746 Empty Bag 1 bag @ Titrate IV .Q0M [facility] Rx#: [id number] Output: Urine 0 0 0 Other: Voiding Method Indwelling Catheter Indwelling Catheter ABP, PAP, CO, CI - Last Documented Arterial Blood Pressure 117/56 - Exam Gen. appearance the patient is quite debilitated currently sedated and intubated on a mechanical ventilator Head exam was generally normal. There was no scleral icterus or corneal arcus. Mucous membranes were moist. Neck was supple and without jugular venous distension, thyromegaly, or carotid bruits. Carotids were easily palpable bilaterally. There was no adenopathy. The patient has a right subclavian triple lumen catheter in place Lungs sounds are diminished bilaterally along with scattered rhonchi heard throughout the lung. The right along with scattered expiratory wheeze. Cardiac exam revealed the PMI to be normally situated and sized. The rhythm was irregular consistent with atrial fibrillation and no extrasystoles were noted during several minutes of auscultation. The first and second heart sounds were irregular and physiologic splitting of the second heart sound was noted. There were no murmurs, rubs, clicks, or gallops. Abdominal exam revealed normal bowel sounds. The abdomen was soft, non-tender, and without masses, organomegaly, or appreciable enlargement of the abdominal aorta. The patient has a peritoneal catheter in place without any abnormalities a day exit site or any discharge or irritation. Examination of the extremities revealed easily palpable radial, femoral and pedal pulses. There was no cyanosis, clubbing or edema. Centimeters are quite atrophic muscles and there is no open wounds or sores. Examination of the skin revealed no evidence of significant rashes, suspicious appearing nevi or other concerning lesions. Neurologically the patient is sedated. An accurate neurologic evaluation cannot be done. No facial asymmetry. Pupils are equal and reactive to light. Positive cough and gag. There is adequate with old to painful stimulation. - Labs CBC & Chem 7: 03/26/19 04:40 03/26/19 05:24 Labs: Abnormal Lab Results - Last 24 Hours (Table) 03/25/19 03/25/19 03/25/19 Range/Units 10:35 10:35 10:35 WBC 22.8 H (3.8-10.6) k/uL RBC 3.30 L (3.80-5.40) m/uL Hgb 11.0 L (11.4-16.0) gm/dL Hct (34.0-46.0) % MCV 104.8 H D (80.0-100.0) fL RDW 17.3 H (11.5-15.5) % Plt Count (150-450) k/uL Neutrophils # (Manual) 21.60 H (1.3-7.7) k/uL Lymphocytes # (Manual) 0.23 L (1.0-4.8) k/uL Metamyelocytes # (Man) 0.23 H (0) k/uL Myelocytes # (Manual) 0.23 H (0) k/uL Macrocytosis ABG pH (7.35-7.45) ABG pCO2 (35-45) mmHg ABG pO2 (83-108) mmHg ABG HCO3 (21-25) mmol/L ABG Total CO2 (19-24) mmol/L ABG O2 Saturation (94-97) % Sodium 130 L (137-145) mmol/L Potassium (3.5-5.1) mmol/L Chloride 91 L (98-107) mmol/L Carbon Dioxide 19 L (22-30) mmol/L BUN 63 H (7-17) mg/dL Creatinine 5.60 H (0.52-1.04) mg/dL Glucose 129 H (74-99) mg/dL POC Glucose (mg/dL) (75-99) mg/dL Plasma Lactic Acid Erich (0.7-2.0) mmol/L Calcium (8.4-10.2) mg/dL AST 74 H (14-36) U/L ALT 117 H (9-52) U/L Alkaline Phosphatase 239 H (38-126) U/L Troponin I 2.010 H* (0.000-0.034) ng/mL Total Protein 5.5 L (6.3-8.2) g/dL Albumin 2.7 L (3.5-5.0) g/dL Urine Appearance (Clear) Urine Protein (Negative) Urine Blood (Negative) Ur Leukocyte Esterase (Negative) Urine RBC (0-5) /hpf Urine WBC (0-5) /hpf Urine WBC Clumps (None) /hpf Urine Bacteria (None) /hpf Urine Mucus (None) /hpf 03/25/19 03/25/19 03/25/19 Range/Units 10:35 10:57 11:43 WBC (3.8-10.6) k/uL RBC (3.80-5.40) m/uL Hgb (11.4-16.0) gm/dL Hct (34.0-46.0) % MCV (80.0-100.0) fL RDW (11.5-15.5) % Plt Count (150-450) k/uL Neutrophils # (Manual) (1.3-7.7) k/uL Lymphocytes # (Manual) (1.0-4.8) k/uL Metamyelocytes # (Man) (0) k/uL Myelocytes # (Manual) (0) k/uL Macrocytosis ABG pH 7.31 L (7.35-7.45) ABG pCO2 (35-45) mmHg ABG pO2 >400 H (83-108) mmHg ABG HCO3 20 L (21-25) mmol/L ABG Total CO2 (19-24) mmol/L ABG O2 Saturation 99.4 H (94-97) % Sodium (137-145) mmol/L Potassium (3.5-5.1) mmol/L Chloride (98-107) mmol/L Carbon Dioxide (22-30) mmol/L BUN (7-17) mg/dL Creatinine (0.52-1.04) mg/dL Glucose (74-99) mg/dL POC Glucose (mg/dL) (75-99) mg/dL Plasma Lactic Acid Erich 2.8 H* (0.7-2.0) mmol/L Calcium (8.4-10.2) mg/dL AST (14-36) U/L ALT (9-52) U/L Alkaline Phosphatase (38-126) U/L Troponin I (0.000-0.034) ng/mL Total Protein (6.3-8.2) g/dL Albumin (3.5-5.0) g/dL Urine Appearance Turbid H (Clear) Urine Protein 1+ H (Negative) Urine Blood Moderate H (Negative) Ur Leukocyte Esterase Large H (Negative) Urine RBC 37 H (0-5) /hpf Urine WBC >182 H (0-5) /hpf Urine WBC Clumps Many H (None) /hpf Urine Bacteria Many H (None) /hpf Urine Mucus Many H (None) /hpf 03/25/19 03/25/19 03/25/19 Range/Units 15:10 19:09 23:25 WBC (3.8-10.6) k/uL RBC (3.80-5.40) m/uL Hgb (11.4-16.0) gm/dL Hct (34.0-46.0) % MCV (80.0-100.0) fL RDW (11.5-15.5) % Plt Count (150-450) k/uL Neutrophils # (Manual) (1.3-7.7) k/uL Lymphocytes # (Manual) (1.0-4.8) k/uL Metamyelocytes # (Man) (0) k/uL Myelocytes # (Manual) (0) k/uL Macrocytosis ABG pH (7.35-7.45) ABG pCO2 (35-45) mmHg ABG pO2 (83-108) mmHg ABG HCO3 (21-25) mmol/L ABG Total CO2 (19-24) mmol/L ABG O2 Saturation (94-97) % Sodium (137-145) mmol/L Potassium (3.5-5.1) mmol/L Chloride (98-107) mmol/L Carbon Dioxide (22-30) mmol/L BUN (7-17) mg/dL Creatinine (0.52-1.04) mg/dL Glucose (74-99) mg/dL POC Glucose (mg/dL) (75-99) mg/dL Plasma Lactic Acid Erich 2.6 H* 3.8 H* 3.8 H* (0.7-2.0) mmol/L Calcium (8.4-10.2) mg/dL AST (14-36) U/L ALT (9-52) U/L Alkaline Phosphatase (38-126) U/L Troponin I (0.000-0.034) ng/mL Total Protein (6.3-8.2) g/dL Albumin (3.5-5.0) g/dL Urine Appearance (Clear) Urine Protein (Negative) Urine Blood (Negative) Ur Leukocyte Esterase (Negative) Urine RBC (0-5) /hpf Urine WBC (0-5) /hpf Urine WBC Clumps (None) /hpf Urine Bacteria (None) /hpf Urine Mucus (None) /hpf 03/26/19 03/26/19 03/26/19 Range/Units 00:00 03:20 04:40 WBC 24.4 H (3.8-10.6) k/uL RBC 2.66 L (3.80-5.40) m/uL Hgb 8.8 L D (11.4-16.0) gm/dL Hct 28.3 L (34.0-46.0) % MCV 106.2 H (80.0-100.0) fL RDW 17.6 H (11.5-15.5) % Plt Count 110 L (150-450) k/uL Neutrophils # (Manual) 22.60 H (1.3-7.7) k/uL Lymphocytes # (Manual) 0.98 L (1.0-4.8) k/uL Metamyelocytes # (Man) (0) k/uL Myelocytes # (Manual) (0) k/uL Macrocytosis Marked A ABG pH (7.35-7.45) ABG pCO2 (35-45) mmHg ABG pO2 (83-108) mmHg ABG HCO3 (21-25) mmol/L ABG Total CO2 (19-24) mmol/L ABG O2 Saturation (94-97) % Sodium (137-145) mmol/L Potassium (3.5-5.1) mmol/L Chloride (98-107) mmol/L Carbon Dioxide (22-30) mmol/L BUN (7-17) mg/dL Creatinine (0.52-1.04) mg/dL Glucose (74-99) mg/dL POC Glucose (mg/dL) 118 H (75-99) mg/dL Plasma Lactic Acid Erich 3.8 H* (0.7-2.0) mmol/L Calcium (8.4-10.2) mg/dL AST (14-36) U/L ALT (9-52) U/L Alkaline Phosphatase (38-126) U/L Troponin I (0.000-0.034) ng/mL Total Protein (6.3-8.2) g/dL Albumin (3.5-5.0) g/dL Urine Appearance (Clear) Urine Protein (Negative) Urine Blood (Negative) Ur Leukocyte Esterase (Negative) Urine RBC (0-5) /hpf Urine WBC (0-5) /hpf Urine WBC Clumps (None) /hpf Urine Bacteria (None) /hpf Urine Mucus (None) /hpf 03/26/19 03/26/19 03/26/19 Range/Units 04:40 04:50 07:04 WBC (3.8-10.6) k/uL RBC (3.80-5.40) m/uL Hgb (11.4-16.0) gm/dL Hct (34.0-46.0) % MCV (80.0-100.0) fL RDW (11.5-15.5) % Plt Count (150-450) k/uL Neutrophils # (Manual) (1.3-7.7) k/uL Lymphocytes # (Manual) (1.0-4.8) k/uL Metamyelocytes # (Man) (0) k/uL Myelocytes # (Manual) (0) k/uL Macrocytosis ABG pH 7.32 L (7.35-7.45) ABG pCO2 34 L (35-45) mmHg ABG pO2 191 H (83-108) mmHg ABG HCO3 17 L (21-25) mmol/L ABG Total CO2 18 L (19-24) mmol/L ABG O2 Saturation 98.8 H (94-97) % Sodium 132 L (137-145) mmol/L Potassium 5.2 H (3.5-5.1) mmol/L Chloride (98-107) mmol/L Carbon Dioxide 17 L (22-30) mmol/L BUN 54 H (7-17) mg/dL Creatinine 3.65 H (0.52-1.04) mg/dL Glucose 120 H (74-99) mg/dL POC Glucose (mg/dL) (75-99) mg/dL Plasma Lactic Acid Erich 3.1 H* (0.7-2.0) mmol/L Calcium 7.2 L (8.4-10.2) mg/dL AST (14-36) U/L ALT (9-52) U/L Alkaline Phosphatase (38-126) U/L Troponin I (0.000-0.034) ng/mL Total Protein (6.3-8.2) g/dL Albumin (3.5-5.0) g/dL Urine Appearance (Clear) Urine Protein (Negative) Urine Blood (Negative) Ur Leukocyte Esterase (Negative) Urine RBC (0-5) /hpf Urine WBC (0-5) /hpf Urine WBC Clumps (None) /hpf Urine Bacteria (None) /hpf Urine Mucus (None) /hpf Microbiology - Last 24 Hours (Table) 03/25/19 18:25 Gram Stain - Preliminary Peritoneal Fluid Body Fluid Culture - Preliminary 03/25/19 10:57 Urine Culture - Preliminary Urine,Voided 03/25/19 11:05 Sputum Culture - Preliminary Sputum Assessment and Plan Plan: 1 multilobar right lung pneumonia, consider hospital-acquired. Consider aspiration. Consider healthcare associate pneumonia the patient has been hospitalized on multiple occasions over the past few months. The patient's x- ray from today's improved and there is still a right upper lobe consolidation in the right lower lobe consolidations improving. Cultures still pending for now. FiO2 has been drop down to 40%. 2 acute hypoxic respiratory failure currently intubated on a mechanical ventilator. 3 Sepsis secondary to pneumonia currently hypotensive and currently the patient has been off pressors and she's been off pressors for the past 30 minutes and we are monitoring the blood pressure for now. White 4 leukocytosis secondary to above, still elevated 5 End stage renal disease currently on peritoneal dialysis she is undergoing peritoneal dialysis every 6 hours with a 1.5% solution 6 urinary tract infection awaiting urine cultures 7 COPD with a baseline FEV1 of 42% of predicted 8 chronic hypoxic respiratory failure secondary to COPD 9 acute/subacute ischemic stroke involving the left occipital lobe and left parietal occipital junction. These toes could've been related to atrial fibrillation but possibility of thrombotic stroke involving the posterior circ ulation cannot be completely excluded. 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 If the patient recovers neurologically and she shows adequate neurologic function, we'll may proceed with weaning trials that she has a good weaning parameters. Abdomen neurologic function is impaired, I think she would deserve a CAT scan of the head to make sure there is no acute abnormalities on top of her old CVAs and INTRACRANIAL bleed. She is on a combination of aspirin and Plavix for now. This will be continued. It final decision on the CAT scan of the head will be done based on her neurologic exam was she's taken off sedation. Continue Zosyn. Continue vancomycin. Pulse pressors for now. Continue peritoneal dialysis. Monitor hemoglobin. Monitor white count. Awaiting final cultures. Condition is still critical. Triple-lumen cath is present in the right subclavian. Insert a CVP monitor. If extubation is considered, I may give her a few amps of bicarb to improve her acid base status prior to considering removing the tube. However the final decision has not been done yet and this will largely depend on her neurologic function and ability to wean and readiness to wean based on her respiratory parameters. We'll continue to follow. Critical care evaluation, more than 30 minutes. Time with Patient: Greater than 30
[2019-03-26] MEDS ORDERED: DEXTROSE 5% IN WATER 1,000 ML with SODIUM BICARB (1 MEQ/ML) 150 ML IV SCH (10:00)
[2019-03-26] MEDS ORDERED: VANCOMYCIN 1,000 MG in SODIUM CHLORIDE 0.9% 250 ML IVPB ONE (10:00)
[2019-03-26] MEDS: CLOPIDOGREL 75 MG TAB PO SCH (10:03)
[2019-03-26] MEDS: ASPIRIN 81 MG PO SCH (10:03)
[2019-03-26] MEDS: ENOXAPARIN 30 MG/0.3 ML SYRINGE SQ SCH (10:03)
[2019-03-26] MEDS ORDERED: HEPARIN SODIUM,PORCINE 5,000 UNIT/ML 1 ML VIAL IV PRN (11:57)
[2019-03-26] MEDS ORDERED: HEPARIN SOD,PORK IN 0.45% NACL 25,000 UNIT in 0.45% NACL 1 250ML.BAG IV SCH (12:00)
[2019-03-26 12:37] LABS: Glucose,Whole Blood 126 mg/dL (75-99)
[2019-03-26] MEDS: AMIODARONE 200 MG TAB PO SCH (12:40)
[2019-03-26] MEDS: METOPROLOL TARTRATE 25 MG TAB PO SCH ×2 (12:40→22:00)
[2019-03-26 12:48] LABS: INR 1.1 (<1.2); Partial Thromboplastin Time 33.9 sec (22.0-30.0); Prothrombin Time 11.6 sec (9.0-12.0)
[2019-03-26 12:51] LABS: Anisocytosis Slight; HCT 26.7 % (34.0-46.0); HGB 8.3 gm/dL (11.4-16.0); Hypochromasia Moderate; MCH 33.2 pg (25.0-35.0); MCHC 31.2 g/dL (31.0-37.0); MCV 106.1 fL (80.0-100.0); Macrocytosis Marked; Platelet Count 101 k/uL (150-450); RBC 2.51 m/uL (3.80-5.40); RDW 17.7 % (11.5-15.5); WBC 24.5 k/uL (3.8-10.6)
[2019-03-26 13:49] LABS: Band Neutrophils % 19 %; Eosinophils # (M) 0.25 k/uL (0-0.7); Lymphocytes # (M) 0.74 k/uL (1.0-4.8); Monocytes # (M) 0.98 k/uL (0-1.0); Neutrophils % (M) 73 %; Nucleated Red Blood Cells 0 /100 WBC (0-0); Total Cells Counted 100
[2019-03-26 14:00] LABS: Toxic Vacuolation Present
--- NOTE | 2019-03-26 14:18 | CT ---
EXAMINATION TYPE: CT brain wo con DATE OF EXAM: 03/26/2019 COMPARISON: 03/26/2019 HISTORY: AMS CT DLP: 1070.4 mGycm Automated exposure control for dose reduction was used. FINDINGS: There is moderate cerebral cortical atrophy. There is extensive hypodensity in the periventricular wh ite matter in both cerebral hemispheres. There is 4 cm area of hypodensity left occipital lobe relate d to old cortical infarct. There is no mass effect nor midline shift. There is no sign of intracrania l hemorrhage. There is hypodensity in the cortex right posterior frontal lobe that measures 3 x 2 cm consistent with old cortical infarct. IMPRESSION: CEREBRAL ATROPHY. OLD CORTICAL INFARCTS. NO ACUTE INTRACRANIAL ABNORMALITY. CHRONIC SMALL VESSEL ISCH EMIA. NO CHANGE.
--- NOTE | 2019-03-26 14:28 | P.PN ---
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 Vitas looks stable. However patient had fever of 100.1 on presentation. Labs s how leukocytosis of 20 4.4K, hemoglobin dropped to 8.8, platelets 110. Sodium 132, potassium 4.3, lactic acid is elevated but trending down 3.8 and 3.1. Creatinine 3.6. Liver enzymes mildly elevated with AST at 74 1 ALT 117, troponin is elevated at 2.0. Urine suspicious for infection Patient currently on vancomycin and Zosyn, also she is on normal saline at 100 mL per hour Review of systems CONSTITUTIONAL: No fever, no malaise, no fatigue. HEENT: No recent visual problems or hearing problems. Denied any sore throat. CARDIOVASCULAR: No orthopnea, PND, no palpitations, no syncope. PULMONARY: No shortness of breath, no cough, no hemoptysis. GASTROINTESTINAL: No diarrhea, no nausea, no vomiting, no abdominal pain. Normoactive bowel sounds. NEUROLOGICAL: No headaches, no weakness, no numbness. HEMATOLOGICAL: Denies any bleeding or petechiae. GENITOURINARY: Denies any burning micturition, frequency, or urgency. MUSCULOSKELETAL/RHEUMATOLOGICAL: Denies any joint pain, swelling, or any muscle pain. ENDOCRINE: Denies any polyuria or polydipsia. Objective - Vital Signs Vital signs: Vital Signs Temp 97.9 F 03/26/19 06:00 Pulse 86 03/26/19 08:05 Resp 13 03/26/19 07:00 BP 137/98 03/26/19 06:00 Pulse Ox 99 03/26/19 07:00 Intake & Output 03/25/19 03/26/19 03/26/19 18:59 06:59 18:59 Intake Total 2247.388 1476.910 144.600 Output Total 0 0 Balance 2247.388 1476.910 144.600 Weight 63.796 kg 56.4 kg Intake: IV 2225 1230 103 Sodium Chloride 0.9% 1, 100 1200 100 000 ml @ 100 mls/hr IV . Q10H [facility] Rx#:[id number] Sodium Chloride 0.9% 1, 2000 000 ml @ 999 mls/hr IV . Q1H1M [facility] Rx#:[id number] Vancomycin 1,250 mg In 125 Sodium Chloride 0.9% 250 ml @ 125 mls/hr IVPB ONCE ONE Rx#:[id number] art line 30 3 Intake, IV Titration 22.388 246.910 41.600 Amount Norepinephrine 32 mg In 22.510 4.854 Sodium Chloride 0.9% 218 ml @ 0.05 MCG/KG/MIN 1. 495 mls/hr IV .Q24H [facility] Rx#:[id number] Norepinephrine 4 mg In 13.328 Sodium Chloride 0.9% 250 ml @ 0.05 MCG/KG/MIN 12. 154 mls/hr IV .[id number] [facility] Rx#:[id number] Piperacillin-Tazobactam 3 100 .375 gm In Sodium Chloride 0.9% 100 ml @ 25 mls/hr IVPB Q12HR [facility] Rx #:[id number] Propofol 1,000 mg In 9.06 124.400 36.746 Empty Bag 1 bag @ Titrate IV .Q0M [facility] Rx#: [id number] Output: Urine 0 0 Other: Voiding Method Indwelling Catheter Indwelling Catheter ABP, PAP, CO, CI - Last Documented Arterial Blood Pressure 136/68 - Exam GENERAL: The patient is alert and oriented x3, not in any acute distress. Well developed, well nourished. HEENT: Pupils are round and equally reacting to light. EOMI. No scleral icterus. No conjunctival pallor. Normocephalic, atraumatic. No pharyngeal erythema. No thyromegaly. CARDIOVASCULAR: S1 and S2 present. No murmurs, rubs, or gallops. PULMONARY: Chest is clear to auscultation, no wheezing or crackles. ABDOMEN: Soft, nontender, nondistended, normoactive bowel sounds. No palpable organomegaly. MUSCULOSKELETAL: No joint swelling or deformity. EXTREMITIES: No cyanosis, clubbing, or pedal edema. NEUROLOGICAL: Gross neurological examination did not reveal any focal deficits. SKIN: No rashes. no petechiae. - Labs CBC & Chem 7: 03/26/19 12:05 03/26/19 05:24 Labs: Abnormal Lab Results - Last 24 Hours (Table) 1103/25/19 03/25/19 Range/Units 10:35 10:35 10:35 WBC 22.8 H (3.8-10.6) k/uL RBC 3.30 L (3.80-5.40) m/uL Hgb 11.0 L (11.4-16.0) gm/dL Hct (34.0-46.0) % MCV 104.8 H D (80.0-100.0) fL RDW 17.3 H (11.5-15.5) % Plt Count (150-450) k/uL Neutrophils # (Manual) 21.60 H (1.3-7.7) k/uL Lymphocytes # (Manual) 0.23 L (1.0-4.8) k/uL Metamyelocytes # (Man) 0.23 H (0) k/uL Myelocytes # (Manual) 0.23 H (0) k/uL Macrocytosis ABG pH (7.35-7.45) ABG pCO2 (35-45) mmHg ABG pO2 (83-108) mmHg ABG HCO3 (21-25) mmol/L ABG Total CO2 (19-24) mmol/L ABG O2 Saturation (94-97) % Sodium 130 L (137-145) mmol/L Potassium (3.5-5.1) mmol/L Chloride 91 L (98-107) mmol/L Carbon Dioxide 19 L (22-30) mmol/L BUN 63 H (7-17) mg/dL Creatinine 5.60 H (0.52-1.04) mg/dL Glucose 129 H (74-99) mg/dL POC Glucose (mg/dL) (75-99) mg/dL Plasma Lactic Acid Erich (0.7-2.0) mmol/L Calcium (8.4-10.2) mg/dL AST 74 H (14-36) U/L ALT 117 H (9-52) U/L Alkaline Phosphatase 239 H (38-126) U/L Troponin I 2.010 H* (0.000-0.034) ng/mL Total Protein 5.5 L (6.3-8.2) g/dL Albumin 2.7 L (3.5-5.0) g/dL Urine Appearance (Clear) Urine Protein (Negative) Urine Blood (Negative) Ur Leukocyte Esterase (Negative) Urine RBC (0-5) /hpf Urine WBC (0-5) /hpf Urine WBC Clumps (None) /hpf Urine Bacteria (None) /hpf Urine Mucus (None) /hpf 03/25/19 03/25/19 03/25/19 Range/Units 10:35 10:57 11:43 WBC (3.8-10.6) k/uL RBC (3.80-5.40) m/uL Hgb (11.4-16.0) gm/dL Hct (34.0-46.0) % MCV (80.0-100.0) fL RDW (11.5-15.5) % Plt Count (150-450) k/uL Neutrophils # (Manual) (1.3-7.7) k/uL Lymphocytes # (Manual) (1.0-4.8) k/uL Metamyelocytes # (Man) (0) k/uL Myelocytes # (Manual) (0) k/uL Macrocytosis ABG pH 7.31 L (7.35-7.45) ABG pCO2 (35-45) mmHg ABG pO2 >400 H (83-108) mmHg ABG HCO3 20 L (21-25) mmol/L ABG Total CO2 (19-24) mmol/L ABG O2 Saturation 99.4 H (94-97) % Sodium (137-145) mmol/L Potassium (3.5-5.1) mmol/L Chloride (98-107) mmol/L Carbon Dioxide (22-30) mmol/L BUN (7-17) mg/dL Creatinine (0.52-1.04) mg/dL Glucose (74-99) mg/dL POC Glucose (mg/dL) (75-99) mg/dL Plasma Lactic Acid Erich 2.8 H* (0.7-2.0) mmol/L Calcium (8.4-10.2) mg/dL AST (14-36) U/L ALT (9-52) U/L Alkaline Phosphatase (38-126) U/L Troponin I (0.000-0.034) ng/mL Total Protein (6.3-8.2) g/dL Albumin (3.5-5.0) g/dL Urine Appearance Turbid H (Clear) Urine Protein 1+ H (Negative) Urine Blood Moderate H (Negative) Ur Leukocyte Esterase Large H (Negative) Urine RBC 37 H (0-5) /hpf Urine WBC >182 H (0-5) /hpf Urine WBC Clumps Many H (None) /hpf Urine Bacteria Many H (None) /hpf Urine Mucus Many H (None) /hpf 03/25/19 03/25/19 03/25/19 Range/Units 15:10 19:09 23:25 WBC (3.8-10.6) k/uL RBC (3.80-5.40) m/uL Hgb (11.4-16.0) gm/dL Hct (34.0-46.0) % MCV (80.0-100.0) fL RDW (11.5-15.5) % Plt Count (150-450) k/uL Neutrophils # (Manual) (1.3-7.7) k/uL Lymphocytes # (Manual) (1.0-4.8) k/uL Metamyelocytes # (Man) (0) k/uL Myelocytes # (Manual) (0) k/uL Macrocytosis ABG pH (7.35-7.45) ABG pCO2 (35-45) mmHg ABG pO2 (83-108) mmHg ABG HCO3 (21-25) mmol/L ABG Total CO2 (19-24) mmol/L ABG O2 Saturation (94-97) % Sodium (137-145) mmol/L Potassium (3.5-5.1) mmol/L Chloride (98-107) mmol/L Carbon Dioxide (22-30) mmol/L BUN (7-17) mg/dL Creatinine (0.52-1.04) mg/dL Glucose (74-99) mg/dL POC Glucose (mg/dL) (75-99) mg/dL Plasma Lactic Acid Erich 2.6 H* 3.8 H* 3.8 H* (0.7-2.0) mmol/L Calcium (8.4-10.2) mg/dL AST (14-36) U/L ALT (9-52) U/L Alkaline Phosphatase (38-126) U/L Troponin I (0.000-0.034) ng/mL Total Protein (6.3-8.2) g/dL Albumin (3.5-5.0) g/dL Urine Appearance (Clear) Urine Protein (Negative) Urine Blood (Negative) Ur Leukocyte Esterase (Negative) Urine RBC (0-5) /hpf Urine WBC (0-5) /hpf Urine WBC Clumps (None) /hpf Urine Bacteria (None) /hpf Urine Mucus (None) /hpf 03/26/19 03/26/19 03/26/19 Range/Units 00:00 03:20 04:40 WBC 24.4 H (3.8-10.6) k/uL RBC 2.66 L (3.80-5.40) m/uL Hgb 8.8 L D (11.4-16.0) gm/dL Hct 28.3 L (34.0-46.0) % MCV 106.2 H (80.0-100.0) fL RDW 17.6 H (11.5-15.5) % Plt Count 110 L (150-450) k/uL Neutrophils # (Manual) 22.60 H (1.3-7.7) k/uL Lymphocytes # (Manual) 0.98 L (1.0-4.8) k/uL Metamyelocytes # (Man) (0) k/uL Myelocytes # (Manual) (0) k/uL Macrocytosis Marked A ABG pH (7.35-7.45) ABG pCO2 (35-45) mmHg ABG pO2 (83-108) mmHg ABG HCO3 (21-25) mmol/L ABG Total CO2 (19-24) mmol/L ABG O2 Saturation (94-97) % Sodium (137-145) mmol/L Potassium (3.5-5.1) mmol/L Chloride (98-107) mmol/L Carbon Dioxide (22-30) mmol/L BUN (7-17) mg/dL Creatinine (0.52-1.04) mg/dL Glucose (74-99) mg/dL POC Glucose (mg/dL) 118 H (75-99) mg/dL Plasma Lactic Acid Erich 3.8 H* (0.7-2.0) mmol/L Calcium (8.4-10.2) mg/dL AST (14-36) U/L ALT (9-52) U/L Alkaline Phosphatase (38-126) U/L Troponin I (0.000-0.034) ng/mL Total Protein (6.3-8.2) g/dL Albumin (3.5-5.0) g/dL Urine Appearance (Clear) Urine Protein (Negative) Urine Blood (Negative) Ur Leukocyte Esterase (Negative) Urine RBC (0-5) /hpf Urine WBC (0-5) /hpf Urine WBC Clumps (None) /hpf Urine Bacteria (None) /hpf Urine Mucus (None) /hpf 03/26/19 03/26/19 03/26/19 Range/Units 04:40 04:50 07:04 WBC (3.8-10.6) k/uL RBC (3.80-5.40) m/uL Hgb (11.4-16.0) gm/dL Hct (34.0-46.0) % MCV (80.0-100.0) fL RDW (11.5-15.5) % Plt Count (150-450) k/uL Neutrophils # (Manual) (1.3-7.7) k/uL Lymphocytes # (Manual) (1.0-4.8) k/uL Metamyelocytes # (Man) (0) k/uL Myelocytes # (Manual) (0) k/uL Macrocytosis ABG pH 7.32 L (7.35-7.45) ABG pCO2 34 L (35-45) mmHg ABG pO2 191 H (83-108) mmHg ABG HCO3 17 L (21-25) mmol/L ABG Total CO2 18 L (19-24) mmol/L ABG O2 Saturation 98.8 H (94-97) % Sodium 132 L (137-145) mmol/L Potassium 5.2 H (3.5-5.1) mmol/L Chloride (98-107) mmol/L Carbon Dioxide 17 L (22-30) mmol/L BUN 54 H (7-17) mg/dL Creatinine 3.65 H (0.52-1.04) mg/dL Glucose 120 H (74-99) mg/dL POC Glucose (mg/dL) (75-99) mg/dL Plasma Lactic Acid Erich 3.1 H* (0.7-2.0) mmol/L Calcium 7.2 L (8.4-10.2) mg/dL AST (14-36) U/L ALT (9-52) U/L Alkaline Phosphatase (38-126) U/L Troponin I (0.000-0.034) ng/mL Total Protein (6.3-8.2) g/dL Albumin (3.5-5.0) g/dL Urine Appearance (Clear) Urine Protein (Negative) Urine Blood (Negative) Ur Leukocyte Esterase (Negative) Urine RBC (0-5) /hpf Urine WBC (0-5) /hpf Urine WBC Clumps (None) /hpf Urine Bacteria (None) /hpf Urine Mucus (None) /hpf Microbiology - Last 24 Hours (Table) 03/25/19 18:25 Gram Stain - Preliminary Peritoneal Fluid Body Fluid Culture - Preliminary 03/25/19 10:57 Urine Culture - Preliminary Urine,Voided 03/25/19 11:05 Sputum Culture - Preliminary Sputum Assessment and Plan Assessment: sepsis secondary to urinary tract infection and right lung pneumonia suspicious for aspiration versus hospital-acquired pneumonia. Patient has SIRS with leukocytosis and fever on presentation Acute hypoxic respiratory failure needing mechanical ventilation and intubation Bicytopenia with low hemoglobin and thrombocytopenia elevated lactic acid Elevated troponin Mildly elevated liver enzymes Chronic atrial fibrillation Congestive heart failure End-stage renal disease on peritoneal dialysis Chronic leukocytosis COPD/asthma History of CVA/TIA, with history of hemorrhagic cerebellar stroke requiring surgical intervention Dimension GERD Hypertension History arthritis Rheumatoid arthritis Hypothyroidism History of right ICA stenosis about 70% Plan: This is a pleasant 74 years old female who presents because of severe sepsis secondary to pneumonia. Continue with antibiotics and IV fluids. Follow-up recommendation from pulmonary/critical care service. Monitor hemoglobin and platelet count as well as WBC. Continue with antibiotics and follow-up culture results Labs and medication were reviewed.. Continue same treatment. Continue with symptomatic treatment. Resume home medication. Monitor lytes and vitals. DVT and GI prophylaxis. Further recommendations of the clinical course of the patient DVT prophylaxis: Subcutaneous Lovenox GI Prophylaxis:Protonix Prognosis is guarded
[2019-03-26] MEDS ORDERED: DARBEPOETIN ALFA 60 MCG/0.3 ML SYRINGE SQ SCH (14:30)
--- NOTE | 2019-03-26 15:01 | ECHOF ---
Referral Reason:Assess LV Function MEASUREMENTS -------- HEIGHT: 162.6 cm WEIGHT: 56.2 kg BP: IVSd: 1.3 cm (0.6 - 1.1) LVIDd: 3.0 cm (3.9 - 5.3) LVPWd: 1.3 cm (0.6 - 1.1) IVSs: 1.4 cm LVIDs: 2.0 cm LVPWs: 1.5 cm RAP: 5.00 mmHg RVSP: 31.46 mmHg FINDINGS -------- Sinus rhythm. Limited Study The left ventricular size is normal. There is mild concentric left ventricular hypertrophy. Overa ll left ventricular systolic function is normal with, an EF between 55 - 60 %. The tricuspid valve appears structurally normal. Mild tricuspid regurgitation present. Right vent ricular systolic pressure is normal at < 35 mmHg. There is no pericardial effusion. CONCLUSIONS -------- 1. Sinus rhythm. 2. Limited Study 3. The left ventricular size is normal. 4. There is mild concentric left ventricular hypertrophy. 5. Overall left ventricular systolic function is normal with, an EF between 55 - 60 %. 6. The tricuspid valve appears structurally normal. 7. Mild tricuspid regurgitation present. 8. Right ventricular systolic pressure is normal at < 35 mmHg. 9. There is no pericardial effusion. PSYCHOLOGICAL TESTS SALES AGENT: Ghazala Mehta RDCS
[2019-03-26] MEDS: NOREPINEPHRINE 32 MG in SODIUM CHLORIDE 0.9% 218 ML IV SCH (15:50)
[2019-03-26 17:59] LABS: Appearance,BF Clear; Color,BF Colorless; Nucleated Cells, Body Fluid 89 /uL; RBC, Body Fluid 10 /uL
[2019-03-26 18:02] LABS: Mononuclear WBC,Body Fluid 9 %; Polynuclear WBC,Body Fluid 91 %; Total Cells Counted,Body Fluid 100
--- NOTE | 2019-03-26 18:02 | CONS ---
CONSULTATION CHIEF COMPLAINT: Elevated troponin. This is a 73-year-old lady with multiple recent hospitalizations and complex cardiac and medical history, whom I have seen on and off in the outpatient setting. Comes to hospital with shortness of breath. She has history of end-stage renal disease on peritoneal dialysis, hypertensive heart disease, paroxysmal atrial fibrillation, chronic rheumatoid arthritis, dyslipidemia, anemia, pulmonary hypertension, chronic diastolic heart failure, intracranial bleed. She is currently a resident of [facility]. Presents to the hospital with increasing shortness of breath. She had to be intubated and is currently on vent. We have been consulted because of elevated troponins. At the time of my evaluation she is intubated on vent. She is not a candidate for intravenous heparin because of intracranial bleed. PAST MEDICAL HISTORY: Significant for atrial fibrillation, hypertension, COPD. MEDICATIONS: Medications at home included Xanax, DuoNeb, PhosLo, Tylenol, Lopressor 50 b.i.d., Zoloft, Prilosec, Plavix Lipitor, aspirin, Cordarone. ALLERGIES: There are no known drug allergies. FAMILY HISTORY: Negative for premature coronary artery disease. SOCIAL HISTORY: Negative for current smoking, EtOH abuse, or drug abuse. REVIEW OF SYSTEMS: Unable to obtain. The patient is intubated on vent. On exam afebrile heart rate is 90 beats per minute, blood pressure is 132/61, respiratory is 22, O2 sat is 100%. Chest exam reveals diminished air entry bilaterally. Heart exam reveals first and second heart sounds. No gallop. Examination of the abdomen is soft, nontender. Exam of extremities did not reveal any edema. Peripheral pulses are palpable. EKG shows sinus tachycardia with left bundle branch block and secondary ST-T wave changes. LABS: Show a hemoglobin of 8.3. Troponin today was 2 on admission, it is 1.6 today. Lactic acid is elevated at 2. Potassium is 5.2, BUN is 54, creatinine is 3.6. ASSESSMENT: 1. Elevated troponin secondary to acute non ST-segment elevation myocardial infarction. 2. Respiratory failure. 3. End-stage renal disease on peritoneal dialysis. 4. Paroxysmal atrial fibrillation. 5. History of intracranial bleed. PLAN: She is not a candidate for anticoagulation or invasive procedures. Prognosis is guarded and treatment is going to be supportive. Thank you for allowing us to participate in the care of this pleasant lady. I will obtain a 2D echo to document her LV function. YRN / GEE: [id number] /
[2019-03-26 18:15] LABS: Glucose,Whole Blood 114 mg/dL (75-99)
--- NOTE | 2019-03-26 18:32 | CONS ---
CONSULTATION REASON FOR CONSULT: End-stage renal disease. HISTORY OF PRESENT ILLNESS: The patient is a 73-year-old female with end-stage renal disease on peritoneal dialysis, who was admitted to the hospital with shortness of breath. The patient was also increasingly weak. She was intubated in the emergency room. She is currently on the vent. Patient was hypotensive and is maintained on pressors. Her chest x-ray shows patchy opacities suggestive of pneumonia. Patient's lactic acid was also elevated at 3.8. It is now down to 2.2. The patient is tolerating her dialysis. Her PD cell count was mildly elevated at 91 for WBCs, although she had a large amount of RBCs as well. Gram stain and culture are currently pending. Patient is maintained on empiric antibiotics. She is awake, on the vent. PAST MEDICAL HISTORY: End-stage renal disease, bilateral renal artery stenosis, history of coronary artery disease, history of hypertension, history of cerebellar hemorrhagic stroke in January, history of atrial fibrillation, COPD, gastroesophageal reflux disease, osteoarthritis, pneumonia, rheumatoid arthritis, history of carotid artery stenosis, anemia of chronic disease, hyperlipidemia. PAST SURGICAL HISTORY: ORIF right ankle, IUD removal, dental implants, cardioversion, dialysis catheter placement removal and the PD catheter placement. SOCIAL HISTORY: Patient is a former smoker. No history of drug abuse or alcohol abuse. MEDICATIONS: Included Prilosec, Symbicort, DuoNeb, PhosLo, melatonin, Tylenol, Xanax, Cordarone, Plavix, Lopressor, Lipitor, Zoloft. ALLERGIES: None. EXAMINATION: Patient is comfortable. She is currently on the vent. She is awake, not in any acute distress. Blood pressure this morning was 128/62, heart rate 90 per minute, patient is afebrile. Examination of the heart S1, S2. Examination of the lungs, bilateral breath sounds are heard. Abdomen is soft, nontender. Examination lower extremities shows no evidence of edema. SPD TECH exam cannot be assessed, however, patient is moving all 4 extremities. LABS: Show hemoglobin 8.3, sodium 132, potassium 5.2, chloride 104, CO2 17, BUN 54, serum creatinine 3.65, lactic acid 3.1. ASSESSMENT: 1. End-stage renal disease, on peritoneal dialysis. Continue with the current exchanges of 1.5% solution so that we do not pull off much fluid. 2. Sepsis, most likely from pneumonia. PD fluid cell count is mildly elevated. However, I doubt significant peritonitis. We will repeat another fluid cell count. She did have a lot of RBCs as well, which may be associated with falsely elevated white cell count. 3. Metabolic acidosis associated with lactic acidosis, maintained on bicarb drip. Lactic acid is decreasing. We can DC the bicarb drip by tomorrow. 4. Atrial fibrillation with controlled ventricular response, maintained on amiodarone. 5. History of bilateral renal artery stenosis. Blood pressure is not elevated. 6. Dyslipidemia. 7. History of coronary artery disease. 8. Anemia of chronic disease. PLAN: Add Aranesp, repeat cell count and repeat labs in a.m. We can likely discontinue the sodium bicarb drip tomorrow. MMODL / IJN: [id number] /
[2019-03-26] MEDS: ATORVASTATIN 80 MG TAB PO SCH (19:52)
[2019-03-27 00:08] LABS: Glucose,Whole Blood 89 mg/dL (75-99)
[2019-03-27] MEDS: IPRATROPIUM-ALBUTEROL 3 ML NEB INHALATION SCH ×7 (00:33→22:37)
[2019-03-27] MEDS: DIALYSIS (PERIT 1.5%) 2,500 ML 37.5 G/2,500 ML BAG INTRAPERIT SCH ×5 (00:36→23:46)
[2019-03-27 01:51] LABS: ABG Base Excess -1.3 mmol/L; ABG HCO3 23 mmol/L (21-25); ABG Oxygen Saturation 98.6 % (94-97); ABG PCO2 31 mmHg (35-45); ABG PH 7.47 (7.35-7.45); ABG PO2 150 mmHg (83-108); ABG TCO2 23 mmol/L (19-24); Allen Test Performed? Yes
[2019-03-27 05:01] LABS: Anisocytosis Slight; Basophils % (A) 0 %; Eosinophils # (A) 0.1 k/uL (0-0.7); Eosinophils % (A) 0 %; HCT 22.5 % (34.0-46.0); HGB 7.5 gm/dL (11.4-16.0); Hypochromasia Slight; Lymphocytes # (A) 0.4 k/uL (1.0-4.8); Lymphocytes % (A) 2 %; MCHC 33.1 g/dL (31.0-37.0); MCV 102.6 fL (80.0-100.0); Macrocytosis Moderate; Mean Platelet Volume 7.9; Monocytes # (A) 0.8 k/uL (0-1.0); Monocytes % (A) 4 %; Neutrophils # (A) 20.7 k/uL (1.3-7.7); Neutrophils % (A) 93 %; Poikilocytosis Slight; RBC 2.19 m/uL (3.80-5.40); RDW 17.8 % (11.5-15.5); WBC 22.2 k/uL (3.8-10.6)
[2019-03-27 05:27] LABS: Calcium 6.9 mg/dL (8.4-10.2); Potassium 3.3 mmol/L (3.5-5.1)
[2019-03-27 05:31] LABS: Vancomycin,Random 20.2 ug/mL
[2019-03-27 05:39] LABS: Platelet Count 83 k/uL (150-450); Polychromasia Present
[2019-03-27 05:48] LABS: Glucose,Whole Blood 102 mg/dL (75-99)
--- NOTE | 2019-03-27 07:28 | XR ---
EXAMINATION TYPE: XR chest 1V portable DATE OF EXAM: 03/27/2019 HISTORY: Tube placement. REFERENCE: Previous study dated 03/26/2019. FINDINGS: Unfortunately, the patient's head projects over the chest. The patient is ET tube, NG tube and right basilic PICC line remain in place, unchanged in appearance. The heart is enlarged. There is continuing right-sided airspace disease and developing left-sided air space disease. Pleural spaces appear clear. IMPRESSION: WORSENING BILATERAL PNEUMONIAS.
[2019-03-27] MEDS ORDERED: POTASSIUM BICARBONATE/CIT AC 20 MEQ TABLET.EFF PO ONE (08:30)
--- NOTE | 2019-03-27 08:52 | P.PN ---
Subjective Progress Note Date: 03/27/19 This is a 71-year-old female patient, with multiple medical problems and comorbidities. The patient came into the emergency department today with complaints of shortness of breath. She was very weak and she was in respiratory failure. The patient was intubated in the emergency department as the patient was diagnosed having a multilobar right lung pneumonia. The patient was brought into the intensive care unit intubated on a mechanical ventilator. She has already received a dose of cefepime. This patient has extensive history. 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 Subsequently the patient presented back into the hospital for difficulties with vision and the patient was diagnosed having an acute to subacute ischemic stroke involving the left occipital lobe and the left occipitoparietal junction. 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 She was also found to have a right ICA stenosis just above 70%. She has vascular dementia. In addition to that she has end- stage renal disease and she is on peritoneal dialysis. She suffers from chronic atrial fibrillation and anticoagulants. She has hypertension, COPD with a baseline FEV1 of 42% of predicted, diastolic heart failure, hypertension, and rheumatoid arthritis in addition to chronic anemia and hyperlipidemia. The patient has had multiple hospitalizations most recent of which was approximately 10 days ago. Currently she is sedated with propofol and she is calm and comfortable. She has received a total of 2 L of IV fluids. She is currently on assist control mode of ventilation at the rate of 16 him a tidal volume of 450, FiO2 of 50% with a PEEP of 5. She is in atrial fibrillation. She is on norepinephrine infusion running at 0.075 g per KG per minute. She has a triple-lumen catheter in the right subclavian. She had an abnormal UA with a white cell count of more than 182 with many bacteria and white cell clumps. Her white cell count is 22.8. Her creatinine is at 5.6 with a mean of 63. The patient's sodium is at 130. Lactic acid level is at 2.6. The patient's echocardiogram showed ejection fraction of 50-55%. Today's evaluation of 03/26/2019 I'm seeing this patient for a follow-up. The patient remains sedated with propofol which is currently running at 25 g per KG per minute. She is was sedated and she is calm and comfortable. She remains on a mechanical ventilator. She is an assist-control mode at the rate of 40 with a tidal volume of 450 and FiO2 of 40% with a PEEP of 5. Her chest x-ray showed a right upper and right perihilar pneumonia and today's chest x-ray shows improvement in the right lower lobe pneumonia and she still has a consolidation in the right upper lobe. ET tube is in a good location. She has a triple-lumen catheter in place. No significant orotracheal secretions and cultures are still pending for now. Meanwhile, the patient was covered with a combination of Zosyn and vancomycin. Her blood pressures improved. She remains in atrial fibrillation. On today's evaluation, she was weaned off the Levothroid earlier this morning and levo fed was discontinued probably 30 minutes ago. She does not make much urine. She undergoes peritoneal dialysis. Peritoneal fluid was also sent for cultures. The patient is receiving IV fluid rate of 100 mL an hour. She is afebrile. White cell count remains elevated. There has been drop in hemoglobin down to 8.8, however there is no signs of any acute bleeding. BUN is at 54, creatinine is at 3.6, lactic acid level is down to 3.1. The blood gas es from today showed a pH of 7.32 with a pCO2 of 34 and pO2 of 191 and this was done and FiO2 of 50% and accordingly the FiO2 has been drop down to 40%. On 03/27/2019, I'm seeing this patient for a follow-up. The patient had a very busy day yesterday where she was taken off the sedation and mental status was monitored for a total of 3 hours while her being off the propofol. We will check in on her periodically in with did not feel that the patient was alert nor she regained back her alertness during this 3 hour sedation holiday. Upon stimulation, she would bite on the tube and based on that day tube bite block was inserted. No seizure activity was noted. I sent this patient for a CAT s can of the brain and the CAT scan essentially showed old findings which included cerebral atrophy, an old cortical infarct measuring 3 x 2 cm in size in the right was treated frontal lobe. There was also periventricular white matter disease and 4 cm hypodense area in the left occipital lobe related to old infarct. There was no evidence of any acute bleeding. This morning, the patient remains sedated with propofol which is currently running at 30 g per KG per minute. She is calm and comfortable. She withdraws to deep painful stimulation. She remains in atrial fibrillation. Rate is controlled for now. She is on no anticoagulation based on the fact that the patient has had any sensory cerebellar bleed. She remains on a mechanical ventilator on assist control mode at the rate of 14 with a tidal volume of 450 and the rate of 14 with an FiO2 of 40% and a PEEP of 5. The blood gases from today showed a pH of 7.47 with a pCO2 of 31 and a pO2 of 150 and this was on FiO2 of 40% and a chest x-ray from today showed persistent consolidation of the right upper lobe and there was a right upper lobe airspace disease in addition to development of some left-sided airspace disease. The patient's sputum is showing gram-negative bacillus. Final cultures and sensitivities are still pending. Meanwhile, the patient is still on a combination of Zosyn and vancomycin. No significant orotracheal secretions. No pressors. The patient undergoing periodic peritoneal dialysis. We have noted a drop in hemoglobin down to 7.5. She is on Aranesp. No signs of any external bleeding at this point in time. She remains nothing by mouth. Objective - Vital Signs Vital signs: Vital Signs Temp 97.0 F L 03/27/19 05:54 Pulse 92 03/27/19 08:00 Resp 11 L 03/27/19 08:00 BP 89/65 03/27/19 08:00 Pulse Ox 100 03/27/19 08:00 Intake & Output 03/26/19 03/27/19 03/27/19 18:59 06:59 18:59 Intake Total 1266.420 741.316 62 Output Total 200 500 Balance 1066.420 241.316 62 Weight 56.4 kg 54 kg Intake: IV 1197 672 62 Dextrose 5% in Water 1, 350 600 50 000 ml @ 50 mls/hr IV . Q23H [facility] with Sodium Bicarb (1 Meq/ml) 150 ml Rx#:[id number] Piperacillin-Tazobactam 3 100 .375 gm In Sodium Chloride 0.9% 100 ml @ 25 mls/hr IVPB Q12HR [facility] Rx #:[id number] Sodium Chloride 0.9% 1, 440 000 ml @ 100 mls/hr IV . Q10H [facility] Rx#:[id number] Vancomycin 1,000 mg In 250 Sodium Chloride 0.9% 250 ml @ 125 mls/hr IVPB ONCE ONE Rx#:[id number] art line 57 72 12 Intake, IV Titration 69.420 69.316 Amount Norepinephrine 32 mg In 5.039 Sodium Chloride 0.9% 218 ml @ 0.05 MCG/KG/MIN 1. 495 mls/hr IV .Q24H [facility] Rx#:[id number] Propofol 1,000 mg In 64.381 69.316 Empty Bag 1 bag @ Titrate IV .Q0M [facility] Rx#: [id number] Output: Gastric Drainage 500 Urine 0 Other 200 Other: Voiding Method Indwelling Catheter ABP, PAP, CO, CI - Last Documented Arterial Blood Pressure 108/57 - Exam Gen. appearance the patient is quite debilitated currently sedated and intubated on a mechanical ventilator Head exam was generally normal. There was no scleral icterus or corneal arcus. Mucous membranes were moist. Neck was supple and without jugular venous distension, thyromegaly, or carotid bruits. Carotids were easily palpable bilaterally. There was no adenopathy. The patient has a right subclavian triple lumen catheter in place Lungs sounds are diminished bilaterally along with scattered rhonchi heard throughout the lung. The right along with scattered expiratory wheeze. Cardiac exam revealed the PMI to be normally situated and sized. The rhythm was irregular consistent with atrial fibrillation and no extrasystoles were noted during several minutes of auscultation. The first and second heart sounds were irregular and physiologic splitting of the second heart sound was noted. There were no murmurs, rubs, clicks, or gallops. Abdominal exam revealed normal bowel sounds. The abdomen was soft, non-tender, and without masses, organomegaly, or appreciable enlargement of the abdominal aorta. The patient has a peritoneal catheter in place without any abnormalities a day exit site or any discharge or irritation. Examination of the extremities revealed easily palpable radial, femoral and pedal pulses. There was no cyanosis, clubbing or edema. Centimeters are quite atrophic muscles and there is no open wounds or sores. Examination of the skin revealed no evidence of significant rashes, suspicious appearing nevi or other concerning lesions. Neurologically the patient is sedated. An accurate neurologic evaluation cannot be done. No facial asymmetry. Pupils are equal and reactive to light. Positive cough and gag. There is adequate with old to painful stimulation. Patient withdraws to deep atrial fibrillation. - Labs CBC & Chem 7: 03/27/19 04:45 03/27/19 04:45 Labs: Abnormal Lab Results - Last 24 Hours (Table) 03/26/19 03/26/19 03/26/19 Range/Units 10:45 12:05 12:05 WBC 24.5 H (3.8-10.6) k/uL RBC 2.51 L (3.80-5.40) m/uL Hgb 8.3 L (11.4-16.0) gm/dL Hct 26.7 L (34.0-46.0) % MCV 106.1 H (80.0-100.0) fL RDW 17.7 H (11.5-15.5) % Plt Count 101 L (150-450) k/uL Neutrophils # (1.3-7.7) k/uL Neutrophils # (Manual) 22.50 H (1.3-7.7) k/uL Lymphocytes # (1.0-4.8) k/uL Lymphocytes # (Manual) 0.74 L (1.0-4.8) k/uL Macrocytosis Marked A APTT (22.0-30.0) sec ABG pH (7.35-7.45) ABG pCO2 (35-45) mmHg ABG pO2 (83-108) mmHg ABG O2 Saturation (94-97) % Sodium (137-145) mmol/L Potassium (3.5-5.1) mmol/L BUN (7-17) mg/dL Creatinine (0.52-1.04) mg/dL Glucose (74-99) mg/dL POC Glucose (mg/dL) (75-99) mg/dL Plasma Lactic Acid Erich 2.2 H* (0.7-2.0) mmol/L Calcium (8.4-10.2) mg/dL Troponin I 1.610 H* (0.000-0.034) ng/mL 03/26/19 03/26/19 03/26/19 Range/Units 12:05 12:08 18:03 WBC (3.8-10.6) k/uL RBC (3.80-5.40) m/uL Hgb (11.4-16.0) gm/dL Hct (34.0-46.0) % MCV (80.0-100.0) fL RDW (11.5-15.5) % Plt Count (150-450) k/uL Neutrophils # (1.3-7.7) k/uL Neutrophils # (Manual) (1.3-7.7) k/uL Lymphocytes # (1.0-4.8) k/uL Lymphocytes # (Manual) (1.0-4.8) k/uL Macrocytosis APTT 33.9 H (22.0-30.0) sec ABG pH (7.35-7.45) ABG pCO2 (35-45) mmHg ABG pO2 (83-108) mmHg ABG O2 Saturation (94-97) % Sodium (137-145) mmol/L Potassium (3.5-5.1) mmol/L BUN (7-17) mg/dL Creatinine (0.52-1.04) mg/dL Glucose (74-99) mg/dL POC Glucose (mg/dL) 126 H 114 H (75-99) mg/dL Plasma Lactic Acid Erich (0.7-2.0) mmol/L Calcium (8.4-10.2) mg/dL Troponin I (0.000-0.034) ng/mL 03/27/19 03/27/19 03/27/19 Range/Units 01:49 04:45 04:45 WBC 22.2 H (3.8-10.6) k/uL RBC 2.19 L (3.80-5.40) m/uL Hgb 7.5 L (11.4-16.0) gm/dL Hct 22.5 L (34.0-46.0) % MCV 102.6 H (80.0-100.0) fL RDW 17.8 H (11.5-15.5) % Plt Count 83 L (150-450) k/uL Neutrophils # 20.7 H (1.3-7.7) k/uL Neutrophils # (Manual) (1.3-7.7) k/uL Lymphocytes # 0.4 L (1.0-4.8) k/uL Lymphocytes # (Manual) (1.0-4.8) k/uL Macrocytosis APTT (22.0-30.0) sec ABG pH 7.47 H (7.35-7.45) ABG pCO2 31 L (35-45) mmHg ABG pO2 150 H (83-108) mmHg ABG O2 Saturation 98.6 H (94-97) % Sodium 132 L (137-145) mmol/L Potassium 3.3 L (3.5-5.1) mmol/L BUN 49 H (7-17) mg/dL Creatinine 3.17 H (0.52-1.04) mg/dL Glucose 105 H (74-99) mg/dL POC Glucose (mg/dL) (75-99) mg/dL Plasma Lactic Acid Erich (0.7-2.0) mmol/L Calcium 6.9 L (8.4-10.2) mg/dL Troponin I (0.000-0.034) ng/mL 03/27/19 Range/Units 05:37 WBC (3.8-10.6) k/uL RBC (3.80-5.40) m/uL Hgb (11.4-16.0) gm/dL Hct (34.0-46.0) % MCV (80.0-100.0) fL RDW (11.5-15.5) % Plt Count (150-450) k/uL Neutrophils # (1.3-7.7) k/uL Neutrophils # (Manual) (1.3-7.7) k/uL Lymphocytes # (1.0-4.8) k/uL Lymphocytes # (Manual) (1.0-4.8) k/uL Macrocytosis APTT (22.0-30.0) sec ABG pH (7.35-7.45) ABG pCO2 (35-45) mmHg ABG pO2 (83-108) mmHg ABG O2 Saturation (94-97) % Sodium (137-145) mmol/L Potassium (3.5-5.1) mmol/L BUN (7-17) mg/dL Creatinine (0.52-1.04) mg/dL Glucose (74-99) mg/dL POC Glucose (mg/dL) 102 H (75-99) mg/dL Plasma Lactic Acid Erich (0.7-2.0) mmol/L Calcium (8.4-10.2) mg/dL Troponin I (0.000-0.034) ng/mL Microbiology - Last 24 Hours (Table) 03/25/19 10:57 Urine Culture - Final Urine,Voided 03/25/19 18:25 Gram Stain - Preliminary Peritoneal Fluid Body Fluid Culture - Preliminary 03/25/19 11:05 Sputum Culture - Preliminary Sputum Gram Neg Bacilli 03/25/19 11:15 Blood Culture - Preliminary Blood No Growth after 24 hours Assessment and Plan Plan: 1 multilobar right lung pneumonia, consider hospital-acquired. Consider aspiration. Consider healthcare associate pneumonia the patient has been hospi talized on multiple occasions over the past few months. The patient's showing a right lung consolidation maintained upper lobe and there is a new infiltrate in the left lower lobe. The sputum is showing gram-negative bacillus. The patient remains on a combination of Zosyn and vancomycin. No significant orotracheal secretions. The patient's FiO2 has been cut down to 40% and the patient has dem onstrated adequate oxygenation on her blood gas. PO2 is above 150. 2 acute hypoxic respiratory failure currently intubated on a mechanical ventilator. 3 Sepsis secondary to pneumonia currently hypotensive and currently the patient is off pressors for now and the patient received bicarb infusion which was discontinued and currently she is on no fluid maintenance. 4 leukocytosis secondary to above, still elevated 5 End stage renal disease currently on peritoneal dialysis she is undergoing per itoneal dialysis every 6 hours with a 1.5% solution 6 acute non-STEMI with a troponin max of 2.0, improving the patient is not a candidate for any intervention at this point in time echocardiac Eamon showed a preserved LV function with hypertensive heart disease and concentric LVH. 7 COPD with a baseline FEV1 of 42% of predicted 8 chronic hypoxic respiratory failure secondary to COPD 9 acute/subacute ischemic stroke involving the left occipital lobe and left parietal occipital junction. These toes could've been related to atrial fibrillation but possibility of thrombotic stroke involving the posterior circulation cannot be completely excluded. A repeat CAT scan of the brain was done and showed old infarcts involving the left occipital region measuring 4 cm in the right frontal region is also old measuring 3 x 2 cm in size. No evidence of any acute bleeds. 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 17 history of rheumatoid arthritis Plan Patient failed a sedation holiday yesterday. The CAT scan of the brain showed old strokes. She may be encephalopathic related to infection/pneumonia/sepsis. Based on that, we'll continue the antibiotic treatment. Awaiting further cultures and sensitivities. Continue Zosyn and vancomycin. Give the patient had a sedation holiday today and check weaning parameters if she demonstrates adequate level of alertness and arousals once off sedation. Overall, she is doing well. She is well-documented in a mechanical ventilator. She is hemodynamically stable. She is undergoing periodic peritoneal dialysis. We are going to initiate tube feeds. We'll make further recommendations based on her progress. Condition is still critical. Not sure whether she is a wean of a candidate today unless she demonstrates adequate level of alertness and arousal with good weaning parameters once off sedation. We'll continue to follow. This examination was on a more than 30 minutes. Is a critically care evaluation. Time with Patient: Greater than 30
[2019-03-27] MEDS ORDERED: CEFEPIME 2 GM in SODIUM CHLORIDE 0.9% 100 ML IVPB SCH (09:00)
[2019-03-27] MEDS: PROPOFOL 1,000 MG in EMPTY BAG 1 BAG IV SCH (09:05)
[2019-03-27] MEDS: PANTOPRAZOLE 40 MG/10 ML VIAL IV SCH (09:48)
[2019-03-27] MEDS: CHLORHEXIDINE GLUCONATE 15 ML CUP MUCOUS MEM SCH ×2 (09:48→20:08)
[2019-03-27] MEDS: ASPIRIN 81 MG PO SCH (09:48)
[2019-03-27] MEDS: ENOXAPARIN 30 MG/0.3 ML SYRINGE SQ SCH (09:48)
[2019-03-27] MEDS: PIPERACILLIN-TAZOBACTAM 3.375 GM in SODIUM CHLORIDE 0.9% 100 ML IVPB SCH ×2 (09:48→20:08)
[2019-03-27] MEDS: METOPROLOL TARTRATE 25 MG TAB PO SCH ×2 (09:48→20:08)
[2019-03-27] MEDS: CLOPIDOGREL 75 MG TAB PO SCH (09:48)
[2019-03-27] MEDS: AMIODARONE 200 MG TAB PO SCH (09:48)
--- NOTE | 2019-03-27 10:11 | PN ---
PROGRESS NOTE Patient is seen for followup for end-stage renal disease. She remains on the vent. The patient sedation was held yesterday. However, she did not have any significant improvement in mentation. CAT scan of the brain has been negative. Patient is maintained on 1.5% solution exchanges for peritoneal dialysis. She remains off Levophed. Patient is maintained on bicarb drip at 50 mL an hour. PHYSICAL EXAMINATION: On examination, patient is comfortable. Blood pressure was 109/57, heart rate of 101 per minute. She is afebrile. Examination of the heart S1, S2. Examination of the lungs, decreased breath sounds at bases. Abdomen is soft, nontender. Examination of lower extremities shows no evidence of edema. [employer] exam cannot be performed. LABS SHOW: Hemoglobin 7.5 sodium 132, potassium 3.3, BUN 49, creatinine 3.17. ASSESSMENT: 1. End-stage renal disease maintained on peritoneal dialysis. We will continue current PD exchanges. 2. Hypokalemia, will replace. 3. Vent-dependent respiratory failure associated with most likely underlying pneumonia. 4. Anemia with no active bleeding noted maintained on Aranesp. 5. History of atrial fibrillation. 6. Coronary artery disease. 7. History of recent stroke. 8. Acute myocardial infarction, troponin peaked at 2.0 currently down to 0.0. PLAN: Continue current exchanges with minimal ultrafiltration. Replace potassium. Continue Aranesp. Continue empiric antibiotics. MMODL / IJN: [id number] /
--- NOTE | 2019-03-27 11:11 | P.PN ---
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 Vitas looks stable. However patient had fever of 100.1 on presentation. Labs s how leukocytosis of 20 4.4K, hemoglobin dropped to 8.8, platelets 110. Sodium 132, potassium 4.3, lactic acid is elevated but trending down 3.8 and 3.1. Creatinine 3.6. Liver enzymes mildly elevated with AST at 74 1 ALT 117, troponin is elevated at 2.0. Urine suspicious for infection Patient currently on vancomycin and Zosyn, also she is on normal saline at 100 mL per hour 03/27/2019 Patient remains intubated and on mechanical ventilation, however she still unresponsive, CAT scan of the head is negative. She is already on aspirin and Plavix and Lovenox has been added for DVT prophylaxis. Here sputum culture is growing E. coli and she is being covered by Zosyn and vancomycin. Cardiology evaluation is appreciated most likely patient has non-STEMI and atrial fibrillation however she is not a candidate for anticoagulation as per law firm partner evaluation. Ejection fraction is 55-60%. She has no urine output. A stable stroke per pulmonary evaluation. Vitas looks stable with a blood pressure is 117/68. WBC is 22.2. Hemoglobin is 7.5, platelets is 83 Prognosis is still guarded Review of systems: n/a Active Medications Generic Name Dose Route Start Last Admin Trade Name Freq PRN Reason Stop Dose Admin Albuterol/Ipratropium 3 ml 03/25/19 16:00 03/27/19 07:15 Duoneb 0.5 Mg-3 Mg/3 Ml Soln INHALATION 3 ml RT-Q4H SIMON Administration Albuterol/Ipratropium 3 ml 03/25/19 16:44 Duoneb 0.5 Mg-3 Mg/3 Ml Soln INHALATION RT-Q2H PRN Shortness Of Breath Or Wheezing Amiodarone HCl 200 mg 03/26/19 12:00 03/27/19 09:48 Cordarone PO 200 mg DAILY SIMON Administration Aspirin 81 mg 03/26/19 09:00 03/27/19 09:48 Aspirin PO 81 mg DAILY SIMON Administration Atorvastatin Calcium 80 mg 03/26/19 21:00 03/26/19 19:52 Lipitor PO 80 mg HS SIMON Administration Chlorhexidine Gluconate 15 ml 03/25/19 21:00 03/27/19 09:48 Peridex MUCOUS MEM 15 ml BID SIMON Administration Clopidogrel Bisulfate 75 mg 03/26/19 09:00 03/27/19 09:48 Plavix PO 75 mg DAILY SIMON Administration Darbepoetin Zhou 60 mcg 03/26/19 14:30 03/26/19 15:51 Aranesp SQ 60 mcg Q7D SIMON Administration Enoxaparin Sodium 30 mg 03/27/19 09:00 03/27/19 09:48 Lovenox SQ 30 mg DAILY SIMON Administration Hydromorphone HCl 0.5 mg 03/25/19 14:48 Dilaudid IVP Q2HR PRN Pain Scale 4 to 5 Piperacillin Sod/Tazobactam 100 mls @ 25 mls/hr 03/25/19 21:00 03/27/19 09:48 Sod 3.375 gm/ Sodium Chloride IVPB 25 mls/hr Q12HR [facility] Administration Norepinephrine Bitartrate 32 250 mls @ 1.495 mls/hr 03/25/19 16:45 03/26/19 15:50 mg/ Sodium Chloride IV Not Given .Q24H [facility]ON Protocol 0.05 MCG/KG/MIN Propofol 1,000 mg/ IV Solution 100 mls @ 0 mls/hr 03/25/19 16:45 03/27/19 10:00 IV 0 mcg/kg/min .Q0M SIMON 0 mls/hr Titration Protocol Titrate Peritoneal Dialysis Solution 37.5 g in 2,500 mls @ 0 mls/hr 03/25/19 18:00 03/27/19 05:22 Delflex With 1.5% Dextrose (2,500 Ml) INTRAPERIT 2,500 mls/hr Q6HR SIMON Administration Protocol As Directed Vancomycin HCl 1,000 mg/ 250 mls @ 125 mls/hr 03/27/19 14:00 Sodium Chloride IVPB 03/27/19 15:59 ONCE ONE Metoprolol Tartrate 25 mg 03/26/19 12:00 03/27/19 09:48 Lopressor PO 25 mg BID SIMON Administration Miscellaneous Information 1 each 03/25/19 16:20 Pharmacy To Dose Iv Vancomycin MISCELLANE DIRECTED PRN Per Protocol Naloxone HCl 0.2 mg 03/25/19 14:48 Narcan IV Q2M PRN Opioid Reversal Pantoprazole Sodium 40 mg 03/26/19 09:00 03/27/19 09:48 Protonix IV 40 mg DAILY SIMON Administration Objective - Vital Signs Vital signs: Vital Signs Temp 97.4 F L 03/27/19 08:15 Pulse 111 H 03/27/19 10:00 Resp 14 03/27/19 10:00 BP 89/65 03/27/19 09:15 Pulse Ox 99 03/27/19 10:00 Intake & Output 03/26/19 03/27/19 03/27/19 18:59 06:59 18:59 Intake Total 1266.420 741.316 252.110 Output Total 200 500 0 Balance 1066.420 241.316 252.110 Weight 56.4 kg 54 kg Intake: IV 1197 672 199 Dextrose 5% in Water 1, 350 600 150 000 ml @ 50 mls/hr IV . Q23H [facility]ON with Sodium Bicarb (1 Meq/ml) 150 ml Rx#:[id number] Piperacillin-Tazobactam 3 100 25 .375 gm In Sodium Chloride 0.9% 100 ml @ 25 mls/hr IVPB Q12HR [facility] Rx #:[id number] Sodium Chloride 0.9% 1, 440 000 ml @ 100 mls/hr IV . Q10H [facility] Rx#:[id number] Vancomycin 1,000 mg In 250 Sodium Chloride 0.9% 250 ml @ 125 mls/hr IVPB ONCE ONE Rx#:[id number] art line 57 72 24 Intake, IV Titration 69.420 69.316 53.110 Amount Norepinephrine 32 mg In 5.039 Sodium Chloride 0.9% 218 ml @ 0.05 MCG/KG/MIN 1. 495 mls/hr IV .Q24H [facility] Rx#:[id number] Propofol 1,000 mg In 64.381 69.316 53.110 Empty Bag 1 bag @ Titrate IV .Q0M [facility] Rx#: [id number] Output: Gastric Drainage 500 Urine 0 0 Other 200 Other: Voiding Method Indwelling Catheter ABP, PAP, CO, CI - Last Documented Arterial Blood Pressure 110/63 - Exam GENERAL: The patient is alert and oriented x3, not in any acute distress. Well developed, well nourished. HEENT: Pupils are round and equally reacting to light. EOMI. No scleral icterus. No conjunctival pallor. Normocephalic, atraumatic. No pharyngeal erythema. No thyromegaly. CARDIOVASCULAR: S1 and S2 present. No murmurs, rubs, or gallops. PULMONARY: Chest is clear to auscultation, no wheezing or crackles. ABDOMEN: Soft, nontender, nondistended, normoactive bowel sounds. No palpable organomegaly. MUSCULOSKELETAL: No joint swelling or deformity. EXTREMITIES: No cyanosis, clubbing, or pedal edema. NEUROLOGICAL: Gross neurological examination did not reveal any focal deficits. SKIN: No rashes. no petechiae. - Labs CBC & Chem 7: 03/27/19 04:45 03/27/19 04:45 Labs: Abnormal Lab Results - Last 24 Hours (Table) 03/26/19 03/26/19 03/26/19 Range/Units 10:45 12:05 12:05 WBC 24.5 H (3.8-10.6) k/uL RBC 2.51 L (3.80-5.40) m/uL Hgb 8.3 L (11.4-16.0) gm/dL Hct 26.7 L (34.0-46.0) % MCV 106.1 H (80.0-100.0) fL RDW 17.7 H (11.5-15.5) % Plt Count 101 L (150-450) k/uL Neutrophils # (1.3-7.7) k/uL Neutrophils # (Manual) 22.50 H (1.3-7.7) k/uL Lymphocytes # (1.0-4.8) k/uL Lymphocytes # (Manual) 0.74 L (1.0-4.8) k/uL Macrocytosis Marked A APTT (22.0-30.0) sec ABG pH (7.35-7.45) ABG pCO2 (35-45) mmHg ABG pO2 (83-108) mmHg ABG O2 Saturation (94-97) % Sodium (137-145) mmol/L Potassium (3.5-5.1) mmol/L BUN (7-17) mg/dL Creatinine (0.52-1.04) mg/dL Glucose (74-99) mg/dL POC Glucose (mg/dL) (75-99) mg/dL Plasma Lactic Acid Erich 2.2 H* (0.7-2.0) mmol/L Calcium (8.4-10.2) mg/dL Troponin I 1.610 H* (0.000-0.034) ng/mL 03/26/19 03/26/19 03/26/19 Range/Units 12:05 12:08 18:03 WBC (3.8-10.6) k/uL RBC (3.80-5.40) m/uL Hgb (11.4-16.0) gm/dL Hct (34.0-46.0) % MCV (80.0-100.0) fL RDW (11.5-15.5) % Plt Count (150-450) k/uL Neutrophils # (1.3-7.7) k/uL Neutrophils # (Manual) (1.3-7.7) k/uL Lymphocytes # (1.0-4.8) k/uL Lymphocytes # (Manual) (1.0-4.8) k/uL Macrocytosis APTT 33.9 H (22.0-30.0) sec ABG pH (7.35-7.45) ABG pCO2 (35-45) mmHg ABG pO2 (83-108) mmHg ABG O2 Saturation (94-97) % Sodium (137-145) mmol/L Potassium (3.5-5.1) mmol/L BUN (7-17) mg/dL Creatinine (0.52-1.04) mg/dL Glucose (74-99) mg/dL POC Glucose (mg/dL) 126 H 114 H (75-99) mg/dL Plasma Lactic Acid Erich (0.7-2.0) mmol/L Calcium (8.4-10.2) mg/dL Troponin I (0.000-0.034) ng/mL 03/27/19 03/27/19 03/27/19 Range/Units 01:49 04:45 04:45 WBC 22.2 H (3.8-10.6) k/uL RBC 2.19 L (3.80-5.40) m/uL Hgb 7.5 L (11.4-16.0) gm/dL Hct 22.5 L (34.0-46.0) % MCV 102.6 H (80.0-100.0) fL RDW 17.8 H (11.5-15.5) % Plt Count 83 L (150-450) k/uL Neutrophils # 20.7 H (1.3-7.7) k/uL Neutrophils # (Manual) (1.3-7.7) k/uL Lymphocytes # 0.4 L (1.0-4.8) k/uL Lymphocytes # (Manual) (1.0-4.8) k/uL Macrocytosis APTT (22.0-30.0) sec ABG pH 7.47 H (7.35-7.45) ABG pCO2 31 L (35-45) mmHg ABG pO2 150 H (83-108) mmHg ABG O2 Saturation 98.6 H (94-97) % Sodium 132 L (137-145) mmol/L Potassium 3.3 L (3.5-5.1) mmol/L BUN 49 H (7-17) mg/dL Creatinine 3.17 H (0.52-1.04) mg/dL Glucose 105 H (74-99) mg/dL POC Glucose (mg/dL) (75-99) mg/dL Plasma Lactic Acid Erich (0.7-2.0) mmol/L Calcium 6.9 L (8.4-10.2) mg/dL Troponin I (0.000-0.034) ng/mL 03/27/19 Range/Units 05:37 WBC (3.8-10.6) k/uL RBC (3.80-5.40) m/uL Hgb (11.4-16.0) gm/dL Hct (34.0-46.0) % MCV (80.0-100.0) fL RDW (11.5-15.5) % Plt Count (150-450) k/uL Neutrophils # (1.3-7.7) k/uL Neutrophils # (Manual) (1.3-7.7) k/uL Lymphocytes # (1.0-4.8) k/uL Lymphocytes # (Manual) (1.0-4.8) k/uL Macrocytosis APTT (22.0-30.0) sec ABG pH (7.35-7.45) ABG pCO2 (35-45) mmHg ABG pO2 (83-108) mmHg ABG O2 Saturation (94-97) % Sodium (137-145) mmol/L Potassium (3.5-5.1) mmol/L BUN (7-17) mg/dL Creatinine (0.52-1.04) mg/dL Glucose (74-99) mg/dL POC Glucose (mg/dL) 102 H (75-99) mg/dL Plasma Lactic Acid Erich (0.7-2.0) mmol/L Calcium (8.4-10.2) mg/dL Troponin I (0.000-0.034) ng/mL Microbiology - Last 24 Hours (Table) 03/25/19 11:05 Sputum Culture - Preliminary Sputum Escherichia coli 03/25/19 10:57 Urine Culture - Final Urine,Voided 03/25/19 18:25 Gram Stain - Preliminary Peritoneal Fluid Body Fluid Culture - Preliminary 03/25/19 11:15 Blood Culture - Preliminary Blood No Growth after 24 hours Assessment and Plan Assessment: sepsis secondary to urinary tract infection and right lung pneumonia suspicious for aspiration versus hospital-acquired pneumonia. Patient has SIRS with leukocytosis and fever on presentation Acute hypoxic respiratory failure needing mechanical ventilation and intubation Unresponsiveness, with negative CAT scan of the head. Possible stroke in view of her atrial fibrillation. Patient is already on aspirin Plavix and Lovenox been added Bicytopenia with low hemoglobin and thrombocytopenia elevated lactic acid None STEMI with Elevated troponin. Evaluated by law firm partner and found not a candidate for anticoagulation Mildly elevated liver enzymes Chronic atrial fibrillation Congestive heart failure End-stage renal disease on peritoneal dialysis Chronic leukocytosis COPD/asthma History of CVA/TIA, with history of hemorrhagic cerebellar stroke requiring surgical intervention Dimension GERD Hypertension History arthritis Rheumatoid arthritis Hypothyroidism History of right ICA stenosis about 70% Plan: This is a pleasant 74 years old female who presents because of severe sepsis secondary to pneumonia. Continue with antibiotics and IV fluids. Follow-up recommendation from pulmonary/critical care service. Monitor hemoglobin and platelet count as well as WBC. Continue with antibiotics and follow-up culture results Labs and medication were reviewed.. Continue same treatment. Continue with symptomatic treatment. Resume home medication. Monitor lytes and vitals. DVT and GI prophylaxis. Further recommendations of the clinical course of the patient DVT prophylaxis: Subcutaneous Lovenox GI Prophylaxis:Protonix Prognosis is guarded As per staff still wants patient for code although of her multiple comorbidity and guarded prognosis
--- NOTE | 2019-03-27 13:12 | PN ---
PROGRESS NOTE Brittany is a 73-year-old lady that is admitted to the hospital with respiratory failure, currently intubated on the vent. Had elevated troponin. She is not a candidate for anticoagulation because of intracranial bleed that she had not too long ago. On exam patient is comfortable at rest. Heart rate is 90 beats per minute. Blood pressure is 117/68, respiratory rate is 20. Chest exam reveals diminished air entry at the bases. Heart exam reveals first and second heart sounds and a systolic murmur at the left lower sternal border. Exam of the extremities reveals mild edema. Peripheral pulses are felt. Labs show a hemoglobin of 7.5. Potassium is 3.3, BUN is 49, creatinine is 3.17. ASSESSMENT: 1. Elevated troponin. 2. Respiratory failure. 3. End-stage renal disease, on peritoneal dialysis. 4. Paroxysmal atrial fibrillation. 5. History of intracranial bleed. Continue current measures. The patient had an echo done yesterday that showed normal LV function. MMODL / IJN: [id number] /
[2019-03-27] MEDS ORDERED: VANCOMYCIN 1,000 MG in SODIUM CHLORIDE 0.9% 250 ML IVPB ONE (14:00)
[2019-03-27 14:01] LABS: Glucose,Whole Blood 89 mg/dL (75-99)
[2019-03-27] MEDS: NOREPINEPHRINE 32 MG in SODIUM CHLORIDE 0.9% 218 ML IV SCH (15:24)
[2019-03-27 18:28] LABS: Glucose,Whole Blood 88 mg/dL (75-99)
[2019-03-27] MEDS: ATORVASTATIN 80 MG TAB PO SCH (20:08)
[2019-03-28] MEDS ORDERED: DEXTROSE 10 % IN WATER 250 ML IV ONE (00:29)
[2019-03-28 00:34] LABS: Glucose,Whole Blood 67 mg/dL (75-99)
[2019-03-28 01:09] LABS: Glucose,Whole Blood 156 mg/dL (75-99)
[2019-03-28] MEDS: NOREPINEPHRINE 32 MG in SODIUM CHLORIDE 0.9% 218 ML IV SCH ×2 (03:04→23:40)
[2019-03-28] MEDS: IPRATROPIUM-ALBUTEROL 3 ML NEB INHALATION SCH ×6 (03:35→23:03)
[2019-03-28] MEDS: PROPOFOL 1,000 MG in EMPTY BAG 1 BAG IV SCH ×3 (04:15→23:33)
[2019-03-28 05:00] LABS: ABG Base Excess 2.3 mmol/L; ABG HCO3 26 mmol/L (21-25); ABG Oxygen Saturation 98.7 % (94-97); ABG PCO2 35 mmHg (35-45); ABG PH 7.48 (7.35-7.45); ABG PO2 171 mmHg (83-108); ABG TCO2 27 mmol/L (19-24)
[2019-03-28 05:03] LABS: Allen Test Performed? no
[2019-03-28 05:15] LABS: Anisocytosis Slight; Basophils % (A) 0 %; Eosinophils # (A) 0.1 k/uL (0-0.7); Eosinophils % (A) 0 %; HCT 23.8 % (34.0-46.0); HGB 7.7 gm/dL (11.4-16.0); Hypochromasia Slight; Lymphocytes # (A) 0.5 k/uL (1.0-4.8); Lymphocytes % (A) 2 %; MCH 33.4 pg (25.0-35.0); MCHC 32.1 g/dL (31.0-37.0); MCV 103.9 fL (80.0-100.0); Macrocytosis Moderate; Mean Platelet Volume 7.7; Monocytes # (A) 0.8 k/uL (0-1.0); Monocytes % (A) 3 %; Neutrophils # (A) 23.4 k/uL (1.3-7.7); Neutrophils % (A) 93 %; Poikilocytosis Slight; RBC 2.29 m/uL (3.80-5.40); RDW 17.8 % (11.5-15.5); WBC 25.1 k/uL (3.8-10.6)
[2019-03-28 05:20] LABS: Platelet Count 96 k/uL (150-450)
[2019-03-28 05:26] LABS: Potassium 3.3 mmol/L (3.5-5.1)
[2019-03-28] MEDS: DIALYSIS (PERIT 1.5%) 2,500 ML 37.5 G/2,500 ML BAG INTRAPERIT SCH ×4 (05:41→23:58)
[2019-03-28] MEDS ORDERED: POTASSIUM BICARBONATE/CIT AC 20 MEQ TABLET.EFF NG-TUBE SCH ×2 (07:00→08:00)
[2019-03-28 07:06] LABS: Glucose,Whole Blood 105 mg/dL (75-99)
--- NOTE | 2019-03-28 07:12 | P.PN ---
Subjective Progress Note Date: 03/28/19 Principal diagnosis: Acute non-ST patient myocardial infarction This is a pleasant 73-year-old female patient with a past medical history significant for long-standing persistent atrial fibrillation, end stage renal disease on peritoneal dialysis, chronic obstructive pulmonary disease, as well as multiple comorbid conditions including carotid disease, was admitted to the hospital with acute hypoxic respiratory failure secondary to multilobar pneumonia. The patient was intubated and currently she is on mechanical ventilation. We involved in the care of the patient for the management of atrial fibrillation as well as abnormal troponin which was above 2. We recommended conservative medical approach. Initially the patient was weaned off the vasopressors but she was started back on vasopressors yesterday. The limited echocardiogram was performed and revealed normal LV function with EF around 50-55%. On follow-up with her today, the patient continues to be intubated on mechanical ventilation. She is back on nor epinephrine because of blood pressure dropped down. She is in atrial fibrillation with slightly uncontrolled heart rate. Currently she is on amiodarone by mouth at 200 mg daily as well as metoprolol by mouth at 25 mg by mouth twice a day. She is not on any oral anticoagulation because of history of intracranial bleeding, she is on antiplatelet with Plavix. I am going to DC the metoprolol and increase the dose of amiodarone in view of the low blood pressure requiring vasopressors. The chest x-ray was reviewed today as well. Eventually, the patient need to undergo a heart catheterization to rule out any severe underlying coronary artery disease could be contributing to her low blood pressure. Objective - Vital Signs Vital signs: Vital Signs Temp 97.5 F L 03/28/19 05:42 Pulse 109 H 03/28/19 07:00 Resp 12 03/28/19 07:00 BP 81/49 03/28/19 06:45 Pulse Ox 94 L 03/28/19 07:00 Intake & Output 03/27/19 03/28/19 03/28/19 18:59 06:59 18:59 Intake Total 542.135 949.543 28 Output Total 100 600 0 Balance 442.135 349.543 28 Weight 54 kg 56.3 kg Intake: IV 447 384 28 0.9 NS Carrier 220 20 Dextrose 5% in Water 1, 50 000 ml @ 50 mls/hr IV . Q23H [facility]ON with Sodium Bicarb (1 Meq/ml) 150 ml Rx#:[id number] Piperacillin-Tazobactam 3 75 100 .375 gm In Sodium Chloride 0.9% 100 ml @ 25 mls/hr IVPB Q12HR [facility] Rx #:[id number] Vancomycin 1,000 mg In 250 Sodium Chloride 0.9% 250 ml @ 125 mls/hr IVPB ONCE ONE Rx#:[id number] art line 72 64 8 Intake, IV Titration 55.135 325.543 Amount Dextrose 10 % in Water 250 250 ml @ 999 mls/hr IV ONCE ONE Rx#:[id number] Norepinephrine 32 mg In 0.888 Sodium Chloride 0.9% 218 ml @ 0.05 MCG/KG/MIN 1. 495 mls/hr IV .Q24H [facility] Rx#:[id number] Propofol 1,000 mg In 55.135 74.655 Empty Bag 1 bag @ Titrate IV .Q0M [facility] Rx#: [id number] Tube Feeding 40 180 Other 60 Output: Urine 0 0 0 Other 100 600 Other: # Bowel Movements 1 ABP, PAP, CO, CI - Last Documented Arterial Blood Pressure 117/70 - Constitutional General appearance: Present: no acute distress - Respiratory Respiratory: bilateral: CTA - Cardiovascular Rhythm: irregularly irregular Heart sounds: normal: S1, S2 - Labs CBC & Chem 7: 03/28/19 04:05 03/28/19 04:05 Labs: Abnormal Lab Results - Last 24 Hours (Table) 03/28/19 03/28/19 03/28/19 Range/Units 00:22 00:58 04:05 WBC 25.1 H (3.8-10.6) k/uL RBC 2.29 L (3.80-5.40) m/uL Hgb 7.7 L (11.4-16.0) gm/dL Hct 23.8 L (34.0-46.0) % MCV 103.9 H (80.0-100.0) fL RDW 17.8 H (11.5-15.5) % Plt Count 96 L (150-450) k/uL Neutrophils # 23.4 H (1.3-7.7) k/uL Lymphocytes # 0.5 L (1.0-4.8) k/uL ABG pH (7.35-7.45) ABG pO2 (83-108) mmHg ABG HCO3 (21-25) mmol/L ABG Total CO2 (19-24) mmol/L ABG O2 Saturation (94-97) % Sodium (137-145) mmol/L Potassium (3.5-5.1) mmol/L Chloride (98-107) mmol/L BUN (7-17) mg/dL Creatinine (0.52-1.04) mg/dL Glucose (74-99) mg/dL POC Glucose (mg/dL) 67 L 156 H (75-99) mg/dL Calcium (8.4-10.2) mg/dL 03/28/19 03/28/19 03/28/19 Range/Units 04:05 04:53 06:55 WBC (3.8-10.6) k/uL RBC (3.80-5.40) m/uL Hgb (11.4-16.0) gm/dL Hct (34.0-46.0) % MCV (80.0-100.0) fL RDW (11.5-15.5) % Plt Count (150-450) k/uL Neutrophils # (1.3-7.7) k/uL Lymphocytes # (1.0-4.8) k/uL ABG pH 7.48 H (7.35-7.45) ABG pO2 171 H (83-108) mmHg ABG HCO3 26 H (21-25) mmol/L ABG Total CO2 27 H (19-24) mmol/L ABG O2 Saturation 98.7 H (94-97) % Sodium 132 L (137-145) mmol/L Potassium 3.3 L (3.5-5.1) mmol/L Chloride 97 L (98-107) mmol/L BUN 44 H (7-17) mg/dL Creatinine 3.13 H (0.52-1.04) mg/dL Glucose 110 H (74-99) mg/dL POC Glucose (mg/dL) 105 H (75-99) mg/dL Calcium 7.0 L (8.4-10.2) mg/dL Microbiology - Last 24 Hours (Table) 03/25/19 18:25 Gram Stain - Preliminary Peritoneal Fluid Body Fluid Culture - Preliminary 03/25/19 11:05 Sputum Culture - Preliminary Sputum Escherichia coli 03/25/19 11:15 Blood Culture - Preliminary Blood No Growth after 48 hours Assessment and Plan Assessment: Assessment #1 multilobe pneumonia #2 sepsis secondary to the above #3 acute non-ST deviation myocardial infarction #4 long-standing persistent atrial fibrillation #5 chronic obstructive pulmonary disease #6 carotid disease Plan #1 DC the metoprolol and increase the dose of amiodarone in view of the low blood pressure #2 continue antiplatelet using Plavix #3 the echocardiogram was reviewed and revealed normal left ventricular systolic function #4 eventually I would recommend the patient undergo a coronary angiogram
--- NOTE | 2019-03-28 07:27 | XR ---
EXAMINATION TYPE: XR chest 1V portable DATE OF EXAM: 03/28/2019 COMPARISON: 03/27/2019 HISTORY: Ventilatory dependent respiratory failure. TECHNIQUE: Single frontal view of the chest is obtained. FINDINGS: Slight improved aeration of the right lung on the multifocal patchy opacities remain. Left lung is overall well aerated other than minimal left basilar linear atelectasis. Generalized osseous demineralization, extensive vascular calcifications, stable lines and tubes, and upper limits of nor mal size of the cardiomediastinal silhouette are again noted. IMPRESSION: Slight improved aeration of the right midlung. Multifocal opacities do remain most radio graphically compatible with multifocal pneumonia. Minimal left basilar atelectasis.
[2019-03-28] MEDS: AMIODARONE 200 MG TAB PO SCH ×2 (08:39→20:18)
[2019-03-28] MEDS: CLOPIDOGREL 75 MG TAB PO SCH (08:39)
[2019-03-28] MEDS: PANTOPRAZOLE 40 MG/10 ML VIAL IV SCH (08:39)
[2019-03-28] MEDS: ENOXAPARIN 30 MG/0.3 ML SYRINGE SQ SCH (08:39)
[2019-03-28] MEDS: ASPIRIN 81 MG PO SCH (08:39)
[2019-03-28] MEDS: CHLORHEXIDINE GLUCONATE 15 ML CUP MUCOUS MEM SCH ×2 (08:39→20:18)
[2019-03-28] MEDS: PIPERACILLIN-TAZOBACTAM 3.375 GM in SODIUM CHLORIDE 0.9% 100 ML IVPB SCH (08:39)
--- NOTE | 2019-03-28 10:34 | P.PN ---
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 Vitas looks stable. However patient had fever of 100.1 on presentation. Labs s how leukocytosis of 20 4.4K, hemoglobin dropped to 8.8, platelets 110. Sodium 132, potassium 4.3, lactic acid is elevated but trending down 3.8 and 3.1. Creatinine 3.6. Liver enzymes mildly elevated with AST at 74 1 ALT 117, troponin is elevated at 2.0. Urine suspicious for infection Patient currently on vancomycin and Zosyn, also she is on normal saline at 100 mL per hour 03/27/2019 Patient remains intubated and on mechanical ventilation, however she still unresponsive, CAT scan of the head is negative. She is already on aspirin and Plavix and Lovenox has been added for DVT prophylaxis. Here sputum culture is growing E. coli and she is being covered by Zosyn and vancomycin. Cardiology evaluation is appreciated most likely patient has non-STEMI and atrial fibrillation however she is not a candidate for anticoagulation as per breeder hen service technician evaluation. Ejection fraction is 55-60%. She has no urine output. A stable stroke per pulmonary evaluation. Vitas looks stable with a blood pressure is 117/68. WBC is 22.2. Hemoglobin is 7.5, platelets is 83 Prognosis is still guarded 03/28/2019 Patient remains unresponsive and intubated in the ICU. Vitas looks stable with blood pressure 111/60 and heart rate of 94. Patient is afebrile. Persistent Leukocytosis of 20 5.1K, despite Patient Being on Broad-Spectrum Antibiotics with Zosyn and Vancomycin. Sodium Is 132, Potassium 3.3, Creatinine 3.23 Which Is a Slightly Improving Compared to 5.6 on Admission. Sputum Culture Is Growing E. coli Which Is Sensitive to Zosyn. Repeat Chest X-Ray, Showing Slight Improvement Radiation of the Right Mid Lung While the Remaining Multifocal Opacity Compatible with Multifocal Pneumonia. Metoprolol Was Stopped by Assembler Filters and Placed on Amiodarone, Continue with Plavix. Assembler Filters Recommended Coronary Angiogram for the Patient. Neurologist Been Consulted for Her Mental Status is not improving. Review of systems: n/a Active Medications Generic Name Dose Route Start Last Admin Trade Name Freq PRN Reason Stop Dose Admin Albuterol/Ipratropium 3 ml 03/25/19 16:00 03/28/19 07:49 Duoneb 0.5 Mg-3 Mg/3 Ml Soln INHALATION 3 ml RT-Q4H SIMON Administration Albuterol/Ipratropium 3 ml 03/25/19 16:44 Duoneb 0.5 Mg-3 Mg/3 Ml Soln INHALATION RT-Q2H PRN Shortness Of Breath Or Wheezing Amiodarone HCl 400 mg 03/28/19 09:00 03/28/19 08:39 Cordarone PO 400 mg BID SIMON Administration Aspirin 81 mg 03/26/19 09:00 03/28/19 08:39 Aspirin PO 81 mg DAILY SIMON Administration Atorvastatin Calcium 80 mg 03/26/19 21:00 03/27/19 20:08 Lipitor PO 80 mg HS SIMON Administration Chlorhexidine Gluconate 15 ml 03/25/19 21:00 03/28/19 08:39 Peridex MUCOUS MEM 15 ml BID SIMON Administration Clopidogrel Bisulfate 75 mg 03/26/19 09:00 03/28/19 08:39 Plavix PO 75 mg DAILY SIMON Administration Darbepoetin Zhou 60 mcg 03/26/19 14:30 03/26/19 15:51 Aranesp SQ 60 mcg Q7D SIMON Administration Enoxaparin Sodium 30 mg 03/27/19 09:00 03/28/19 08:39 Lovenox SQ 30 mg DAILY SIMON Administration Hydromorphone HCl 0.5 mg 03/25/19 14:48 Dilaudid IVP Q2HR PRN Pain Scale 4 to 5 Piperacillin Sod/Tazobactam 100 mls @ 25 mls/hr 03/25/19 21:00 03/28/19 08:39 Sod 3.375 gm/ Sodium Chloride IVPB 25 mls/hr Q12HR SIMON Administration Norepinephrine Bitartrate 32 250 mls @ 1.495 mls/hr 03/25/19 16:45 03/28/19 09:13 mg/ Sodium Chloride IV 0.02 mcg/kg/min .Q24H SIMON 0.598 mls/hr Titration Protocol 0.05 MCG/KG/MIN Propofol 1,000 mg/ IV Solution 100 mls @ 0 mls/hr 03/25/19 16:45 03/28/19 09:14 IV 5 mcg/kg/min .Q0M SIMON 1.689 mls/hr Titration Protocol Titrate Peritoneal Dialysis Solution 37.5 g in 2,500 mls @ 0 mls/hr 03/25/19 18:00 03/28/19 05:41 Delflex With 1.5% Dextrose (2,500 Ml) INTRAPERIT 2,500 mls/hr Q6HR SIMON Administration Protocol As Directed Miscellaneous Information 1 each 03/25/19 16:20 Pharmacy To Dose Iv Vancomycin MISCELLANE DIRECTED PRN Per Protocol Naloxone HCl 0.2 mg 03/25/19 14:48 Narcan IV Q2M PRN Opioid Reversal Pantoprazole Sodium 40 mg 03/26/19 09:00 03/28/19 08:39 Protonix IV 40 mg DAILY SIMON Administration Objective - Vital Signs Vital signs: Vital Signs Temp 97.5 F L 03/28/19 08:00 Pulse 94 03/28/19 09:00 Resp 16 03/28/19 09:00 BP 114/88 03/28/19 08:00 Pulse Ox 99 03/28/19 09:00 Intake & Output 03/27/19 03/28/19 03/28/19 18:59 06:59 18:59 Intake Total 542.135 949.543 353.645 Output Total 100 600 0 Balance 442.135 349.543 353.645 Weight 54 kg 56.3 kg Intake: IV 447 384 100 0.9 NS Carrier 220 30 Dextrose 5% in Water 1, 50 000 ml @ 50 mls/hr IV . Q23H SIMON with Sodium Bicarb (1 Meq/ml) 150 ml Rx#:[id number] Piperacillin-Tazobactam 3 75 100 50 .375 gm In Sodium Chloride 0.9% 100 ml @ 25 mls/hr IVPB Q12HR SIMON Rx #:[id number] Vancomycin 1,000 mg In 250 Sodium Chloride 0.9% 250 ml @ 125 mls/hr IVPB ONCE ONE Rx#:[id number] art line 72 64 20 Intake, IV Titration 55.135 325.543 43.645 Amount Dextrose 10 % in Water 250 250 ml @ 999 mls/hr IV ONCE ONE Rx#:[id number] Norepinephrine 32 mg In 0.888 4.829 Sodium Chloride 0.9% 218 ml @ 0.05 MCG/KG/MIN 1. 495 mls/hr IV .Q24H SIMON Rx#:[id number] Propofol 1,000 mg In 55.135 74.655 38.816 Empty Bag 1 bag @ Titrate IV .Q0M SIMON Rx#: [id number] Tube Feeding 40 180 120 Other 60 90 Output: Urine 0 0 0 Other 100 600 Other: # Bowel Movements 1 ABP, PAP, CO, CI - Last Documented Arterial Blood Pressure 111/60 - Exam GENERAL: The patient is alert and oriented x3, not in any acute distress. Well developed, well nourished. HEENT: Pupils are round and equally reacting to light. EOMI. No scleral icterus. No conjunctival pallor. Normocephalic, atraumatic. No pharyngeal erythema. No thyromegaly. CARDIOVASCULAR: S1 and S2 present. No murmurs, rubs, or gallops. PULMONARY: Chest is clear to auscultation, no wheezing or crackles. ABDOMEN: Soft, nontender, nondistended, normoactive bowel sounds. No palpable organomegaly. MUSCULOSKELETAL: No joint swelling or deformity. EXTREMITIES: No cyanosis, clubbing, or pedal edema. NEUROLOGICAL: Gross neurological examination did not reveal any focal deficits. SKIN: No rashes. no petechiae. - Labs CBC & Chem 7: 03/28/19 04:05 03/28/19 04:05 Labs: Abnormal Lab Results - Last 24 Hours (Table) 03/28/19 03/28/19 03/28/19 Range/Units 00:22 00:58 04:05 WBC 25.1 H (3.8-10.6) k/uL RBC 2.29 L (3.80-5.40) m/uL Hgb 7.7 L (11.4-16.0) gm/dL Hct 23.8 L (34.0-46.0) % MCV 103.9 H (80.0-100.0) fL RDW 17.8 H (11.5-15.5) % Plt Count 96 L (150-450) k/uL Neutrophils # 23.4 H (1.3-7.7) k/uL Lymphocytes # 0.5 L (1.0-4.8) k/uL ABG pH (7.35-7.45) ABG pO2 (83-108) mmHg ABG HCO3 (21-25) mmol/L ABG Total CO2 (19-24) mmol/L ABG O2 Saturation (94-97) % Sodium (137-145) mmol/L Potassium (3.5-5.1) mmol/L Chloride (98-107) mmol/L BUN (7-17) mg/dL Creatinine (0.52-1.04) mg/dL Glucose (74-99) mg/dL POC Glucose (mg/dL) 67 L 156 H (75-99) mg/dL Calcium (8.4-10.2) mg/dL 03/28/19 03/28/19 03/28/19 Range/Units 04:05 04:53 06:55 WBC (3.8-10.6) k/uL RBC (3.80-5.40) m/uL Hgb (11.4-16.0) gm/dL Hct (34.0-46.0) % MCV (80.0-100.0) fL RDW (11.5-15.5) % Plt Count (150-450) k/uL Neutrophils # (1.3-7.7) k/uL Lymphocytes # (1.0-4.8) k/uL ABG pH 7.48 H (7.35-7.45) ABG pO2 171 H (83-108) mmHg ABG HCO3 26 H (21-25) mmol/L ABG Total CO2 27 H (19-24) mmol/L ABG O2 Saturation 98.7 H (94-97) % Sodium 132 L (137-145) mmol/L Potassium 3.3 L (3.5-5.1) mmol/L Chloride 97 L (98-107) mmol/L BUN 44 H (7-17) mg/dL Creatinine 3.13 H (0.52-1.04) mg/dL Glucose 110 H (74-99) mg/dL POC Glucose (mg/dL) 105 H (75-99) mg/dL Calcium 7.0 L (8.4-10.2) mg/dL Microbiology - Last 24 Hours (Table) 03/25/19 11:05 Gram Stain - Final Sputum Sputum Culture - Final Escherichia coli 03/25/19 18:25 Gram Stain - Preliminary Peritoneal Fluid Body Fluid Culture - Preliminary 03/25/19 11:15 Blood Culture - Preliminary Blood No Growth after 48 hours Assessment and Plan Assessment: sepsis secondary to urinary tract infection and right lung multifocal pneumonia suspicious for aspiration versus hospital-acquired pneumonia. Patient has SIRS with leukocytosis and fever on presentation Acute hypoxic respiratory failure needing mechanical ventilation and intubation Unresponsiveness, with negative CAT scan of the head. Possible stroke in view of her atrial fibrillation. Patient is already on aspirin Plavix and Lovenox been added Bicytopenia with low hemoglobin and thrombocytopenia elevated lactic acid None STEMI with Elevated troponin. Evaluated by breeder hen service technician and found not a candidate for anticoagulation. Mildly elevated liver enzymes Chronic atrial fibrillation Congestive heart failure End-stage renal disease on peritoneal dialysis Chronic leukocytosis COPD/asthma History of CVA/TIA, with history of hemorrhagic cerebellar stroke requiring surgical intervention Dimension GERD Hypertension History arthritis Rheumatoid arthritis Hypothyroidism History of right ICA stenosis about 70% Plan: This is a pleasant 74 years old female who presents because of severe sepsis secondary to pneumonia. Continue with antibiotics and IV fluids. Follow-up recommendation from pulmonary/critical care service. Monitor hemoglobin and platelet count as well as WBC. Continue with antibiotics and follow-up culture results. Consult neurologist. Continue with Plavix and breeder hen service technician recommended coronary angiogram. Discontinue metoprolol and continue with amiodarone Labs and medication were reviewed.. Continue same treatment. Continue with symptomatic treatment. Resume home medication. Monitor lytes and vitals. DVT and GI prophylaxis. Further recommendations of the clinical course of the patient DVT prophylaxis: Subcutaneous Lovenox GI Prophylaxis:Protonix Prognosis is guarded As per staff still wants patient for code although of her multiple comorbidity and guarded prognosis
--- NOTE | 2019-03-28 11:29 | P.PN ---
Subjective Progress Note Date: 03/28/19 Principal diagnosis: Acute hypoxic respiratory failure secondary to multilobar pneumonia, possibly hospital acquired. Could also be aspiration pneumonia. This is a 71-year-old female patient, with multiple medical problems and comorbidities. The patient came into the emergency department today with complaints of shortness of breath. She was very weak and she was in respiratory failure. The patient was intubated in the emergency department as the patient was diagnosed having a multilobar right lung pneumonia. The patient was brought into the intensive care unit intubated on a mechanical ventilator. She has already received a dose of cefepime. This patient has extensive history. 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 Subsequently the patient presented back into the hospital for difficulties with vision and the patient was diagnosed having an acute to subacute ischemic stroke involving the left occipital lobe and the left occipitoparietal junction. 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 She was also found to have a right ICA stenosis just above 70%. She has vascular dementia. In addition to that she has end- stage renal disease and she is on peritoneal dialysis. She suffers from chronic atrial fibrillation and anticoagulants. She has hypertension, COPD with a baseline FEV1 of 42% of predicted, diastolic heart failure, hypertension, and rheumatoid arthritis in addition to chronic anemia and hyperlipidemia. The patient has had multiple hospitalizations most recent of which was approximately 10 days ago. Currently she is sedated with propofol and she is calm and comfortable. She has received a total of 2 L of IV fluids. She is currently on assist control mode of ventilation at the rate of 16 him a tidal volume of 450, FiO2 of 50% with a PEEP of 5. She is in atrial fibrillation. She is on norepinephrine infusion running at 0.075 g per KG per minute. She has a triple-lumen catheter in the right subclavian. She had an abnormal UA with a white cell count of more than 182 with many bacteria and white cell clumps. Her white cell count is 22.8. Her creatinine is at 5.6 with a mean of 63. The patient's sodium is at 130. Lactic acid level is at 2.6. The patient's echocardiogram showed ejection fraction of 50-55%. Today's evaluation of 03/26/2019 I'm seeing this patient for a follow-up. The patient remains sedated with propofol which is currently running at 25 g per KG per minute. She is was sedated and she is calm and comfortable. She remains on a mechanical ventilator. She is an assist-control mode at the rate of 40 with a tidal volume of 450 and FiO2 of 40% with a PEEP of 5. Her chest x-ray showed a right upper and right perihilar pneumonia and today's chest x-ray shows improvement in the right lower lobe pneumonia and she still has a consolidation in the right upper lobe. ET tube is in a good location. She has a triple-lumen catheter in place. No significant orotracheal secretions and cultures are still pending for now. Meanwhile, the patient was covered with a combination of Zosyn and vancomycin. Her blood pressures improved. She remains in atrial fibrillation. On today's evaluation, she was weaned off the Levothroid earlier this morning and levo fed was discontinued probably 30 minutes ago. She does not make much urine. She undergoes peritoneal dialysis. Peritoneal fluid was also sent for cultures. The patient is receiving IV fluid rate of 100 mL an hour. She is afebrile. White cell count remains elevated. There has been drop in hemoglobin down to 8.8, however there is no signs of any acute bleeding. BUN is at 54, creatinine is at 3.6, lactic acid level is down to 3.1. The blood gases from today showed a pH of 7.32 with a pCO2 of 34 and pO2 of 191 and this was done and FiO2 of 50% and accordingly the FiO2 has been drop down to 40%. On 03/27/2019, I'm seeing this patient for a follow-up. The patient had a very busy day yesterday where she was taken off the sedation and mental status was monitored for a total of 3 hours while her being off the propofol. We will check in on her periodically in with did not feel that the patient was alert nor she regained back her alertness during this 3 hour sedation holiday. Upon stimulation, she would bite on the tube and based on that day tube bite block was inserted. No seizure activity was noted. I sent this patient for a CAT scan of the brain and the CAT scan essentially showed old findings which included cerebral atrophy, an old cortical infarct measuring 3 x 2 cm in size in the right was treated frontal lobe. There was also periventricular white matter disease and 4 cm hypodense area in the left occipital lobe related to old infarct. There was no evidence of any acute bleeding. This morning, the patient remains sedated with propofol which is currently running at 30 g per KG per minute. She is calm and comfortable. She withdraws to deep painful stimulation. She remains in atrial fibrillation. Rate is controlled for now. She is on no anticoagulation based on the fact that the patient has had any sensory cerebellar bleed. She remains on a mechanical ventilator on assist control mode at the rate of 14 with a tidal volume of 450 and the rate of 14 with an FiO2 of 40% and a PEEP of 5. The blood gases from today showed a pH of 7.47 with a pCO2 of 31 and a pO2 of 150 and this was on FiO2 of 40% and a chest x-ray from today showed persistent consolidation of the right upper lobe and there was a right upper lobe airspace disease in addition to development of some left-sided airspace disease. The patient's sputum is showing gram-negative bacillus. Final cultures and sensitivities are still pending. Meanwhile, the p atient is still on a combination of Zosyn and vancomycin. No significant orotracheal secretions. No pressors. The patient undergoing periodic peritoneal dialysis. We have noted a drop in hemoglobin down to 7.5. She is on Aranesp. No signs of any external bleeding at this point in time. She remains nothing by mouth. Patient was reevaluated on 03/28/2019, remains in the intensive care unit, intubated, mechanically ventilated. Her ventilator settings are assist control rate of 14 tidal volume 450 FiO2 40% and PEEP of 5. Patient is on propofol at 25 mcg/kg/m, and she is on norepinephrine at 0.01 mcg/kg/m. I plan to give the patient is sedation holiday and addressed mental status today. Apparently she was biting on the tube yesterday as per Dr. Parmar's note. Patient is presently calm, withdraws to deep painful stimulation. And she remains in atrial fibrillation. But rate seems to be fairly well controlled. Patient remains on periodic peritoneal dialysis. ABG today showed a pO2 of 171 pCO2 of 35 pH of 7.48, hence FiO2 was cut down to 35%. WBC count is 25.1 hemoglobin is 7.7 platelets are 96,000. Electrolytes showed low potassium of 3.3 BUN is 44 creatinine 3.13. Chest x-ray showed multifocal opacities compatible with multifocal pneumonia and minimal left basilar atelectasis. Sputum cultures have been positive mostly for E. coli./ESBL, hence we'll switch the patient to Merrem. Objective - Vital Signs Vital signs: Vital Signs Temp 97.5 F L 03/28/19 08:00 Pulse 93 03/28/19 10:30 Resp 17 03/28/19 10:30 BP 102/60 03/28/19 10:15 Pulse Ox 100 03/28/19 10:30 Intake & Output 03/27/19 03/28/19 03/28/19 18:59 06:59 18:59 Intake Total 542.135 949.543 420.095 Output Total 100 600 0 Balance 442.135 349.543 420.095 Weight 54 kg 56.3 kg Intake: IV 447 384 136 0.9 NS Carrier 220 35 Dextrose 5% in Water 1, 50 000 ml @ 50 mls/hr IV . Q23H SIMON with Sodium Bicarb (1 Meq/ml) 150 ml Rx#:[id number] Piperacillin-Tazobactam 3 75 100 75 .375 gm In Sodium Chloride 0.9% 100 ml @ 25 mls/hr IVPB Q12HR SIMON Rx #:[id number] Vancomycin 1,000 mg In 250 Sodium Chloride 0.9% 250 ml @ 125 mls/hr IVPB ONCE ONE Rx#:[id number] art line 72 64 26 Intake, IV Titration 55.135 325.543 44.095 Amount Dextrose 10 % in Water 250 250 ml @ 999 mls/hr IV ONCE ONE Rx#:[id number] Norepinephrine 32 mg In 0.888 4.829 Sodium Chloride 0.9% 218 ml @ 0.05 MCG/KG/MIN 1. 495 mls/hr IV .Q24H SIMON Rx#:[id number] Propofol 1,000 mg In 55.135 74.655 39.266 Empty Bag 1 bag @ Titrate IV .Q0M SIMON Rx#: [id number] Tube Feeding 40 180 150 Other 60 90 Output: Urine 0 0 0 Other 100 600 Other: # Bowel Movements 1 ABP, PAP, CO, CI - Last Documented Arterial Blood Pressure 117/63 - Exam Physical Exam: Revealed a 73-year-old female intubated, mechanically ventilated, in no distress, sedated. Head: Atraumatic, normocephalic. HEENT:[Neck is supple.] [No neck masses.] [No thyromegaly.] [No JVD.] PERRLA, EOMI, moist mucous membranes, or gastric tube and endotracheal tube are intact Chest: [Crackles and rhonchi noted bilaterally, symmetrical chest expansion noted..] Cardiac Exam: [Irregular irregular rhythm Normal S1 and S2, no S3 gallop, no murmur.] Abdomen: [Soft, nontender, no megaly, no rebound, no guarding, normal bowel sounds.] Peritoneal catheter is noted. Unremarkable. Extremities: [No clubbing, no edema, no cyanosis.] Good pulses bilaterally. Atrophy of muscles noted bilaterally. Neurological Exam: [Patient is sedated, neurological exam could not be performed, no facial asymmetry, pupils are equal and reactive to light, positive gag reflex. Does not respond to painful stimuli. Psychiatric: Could not be assessed. Skin: No rashes. Lymphatics: No lymphadenopathy. - Labs CBC & Chem 7: 03/28/19 04:05 03/28/19 04:05 Labs: Abnormal Lab Results - Last 24 Hours (Table) 03/28/19 03/28/19 03/28/19 Range/Units 00:22 00:58 04:05 WBC 25.1 H (3.8-10.6) k/uL RBC 2.29 L (3.80-5.40) m/uL Hgb 7.7 L (11.4-16.0) gm/dL Hct 23.8 L (34.0-46.0) % MCV 103.9 H (80.0-100.0) fL RDW 17.8 H (11.5-15.5) % Plt Count 96 L (150-450) k/uL Neutrophils # 23.4 H (1.3-7.7) k/uL Lymphocytes # 0.5 L (1.0-4.8) k/uL ABG pH (7.35-7.45) ABG pO2 (83-108) mmHg ABG HCO3 (21-25) mmol/L ABG Total CO2 (19-24) mmol/L ABG O2 Saturation (94-97) % Sodium (137-145) mmol/L Potassium (3.5-5.1) mmol/L Chloride (98-107) mmol/L BUN (7-17) mg/dL Creatinine (0.52-1.04) mg/dL Glucose (74-99) mg/dL POC Glucose (mg/dL) 67 L 156 H (75-99) mg/dL Calcium (8.4-10.2) mg/dL 03/28/19 03/28/19 03/28/19 Range/Units 04:05 04:53 06:55 WBC (3.8-10.6) k/uL RBC (3.80-5.40) m/uL Hgb (11.4-16.0) gm/dL Hct (34.0-46.0) % MCV (80.0-100.0) fL RDW (11.5-15.5) % Plt Count (150-450) k/uL Neutrophils # (1.3-7.7) k/uL Lymphocytes # (1.0-4.8) k/uL ABG pH 7.48 H (7.35-7.45) ABG pO2 171 H (83-108) mmHg ABG HCO3 26 H (21-25) mmol/L ABG Total CO2 27 H (19-24) mmol/L ABG O2 Saturation 98.7 H (94-97) % Sodium 132 L (137-145) mmol/L Potassium 3.3 L (3.5-5.1) mmol/L Chloride 97 L (98-107) mmol/L BUN 44 H (7-17) mg/dL Creatinine 3.13 H (0.52-1.04) mg/dL Glucose 110 H (74-99) mg/dL POC Glucose (mg/dL) 105 H (75-99) mg/dL Calcium 7.0 L (8.4-10.2) mg/dL Microbiology - Last 24 Hours (Table) 03/25/19 11:05 Gram Stain - Final Sputum Sputum Culture - Final Escherichia coli 03/25/19 18:25 Gram Stain - Preliminary Peritoneal Fluid Body Fluid Culture - Preliminary 03/25/19 11:15 Blood Culture - Preliminary Blood No Growth after 48 hours Assessment and Plan Assessment: Impression: 1 acute on chronic hypoxic respiratory failure secondary to multilobar pneumonia secondary to ESBL E. coli. And secondary to underlying COPD 2 acute sepsis and septic shock requiring pressors. This is secondary to pneumonia. 3 end-stage renal disease, patient is on peritoneal dialysis 4 acute non-ST elevation myocardial infarction 5 severe COPD FEV1 in the range of 42% of predicted. 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 Recommendation: Continue ventilatory support. Continue hemodynamic support. Continue antibiotics. Change Zosyn to Merrem and I will discontinue vancomycin Continue nutritional support. Continue GI and DVT prophylaxis. Continue peritoneal dialysis Continue daily assessment of mental status off sedation continue daily assessment for possible weaning and extubation Continue bronchodilators for underlying COPD Continue aranesp Overall prognosis remains extremely poor and guarded, may have to eventually considered tracheostomy in this patient. Patient remains full code, and I will address her CODE STATUS again with the . Critical care time is 40 minutes. Time with Patient: Greater than 30
[2019-03-28 12:09] LABS: Glucose,Whole Blood 144 mg/dL (75-99)
--- NOTE | 2019-03-28 12:31 | P.CNNES ---
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 Patient was placed on aspirin and Plavix at that time. The anticoagulation has been held from a prior admission, when she had small right cerebellar hemorrhage documented. Patient has history of COPD, also with end-stage renal disease on CAPD dialysis, who came to the ER on 03/25/2019 with shortness of breath. Patient has altered mental status and was intubated in the ER. 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 There is evidence of old calcification in the right cerebellum. Patient at present is intubated, unresponsive, not on sedatives since 10 AM. Patient significantly obtunded, does not follow commands. Please refer to examination below. Chest x-ray showed multifocal opacities consistent with multifocal pneumonia. Minimal left basilar atelectasis. 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, right ICA stenosis in the order of 70%, history of stroke involving the left occipital and occipital lobe parietal junction with secondary cortical blindness, chronic atrial fibrillation, prior CVA back in 2005, chronic hypoxic respiratory failure, end-stage renal disease and the patient is currently on peritoneal dialysis, chronic anemia, moderate arthritis, hypertension, hyperlipidemia, hyp othyroidism History of Any Multi-Drug Resistant Organisms: None Reported Past Surgical History: Tonsillectomy Additional Past Surgical History / Comment(s): ORIF rt ankle-[address], IUD removal, lumbar steroid injections, dental implants, cardioversion, dialysis cath. Past Anesthesia/Blood Transfusion Reactions: No Reported Reaction Additional Past Anesthesia/Blood Transfusion Reaction / Comment(s): Past blood transfusions - no reaction Smoking Status: Former smoker - Past Family History Mother Family Medical History: Vascular Disorder Additional Family Medical History / Comment(s): Mother in her 80s from abdominal aortic aneurysm. Father Family Medical History: Myocardial Infarction (NE) Additional Family Medical History / Comment(s): Father at age 52 from acute NE. Medications and Allergies Home Medications Medication Instructions Recorded Confirmed Type Omeprazole [PriLOSEC] 20 mg PO DAILY 12/28/18 03/25/19 History Ipratropium-Albuterol Nebulize 3 ml INHALATION RT-Q4H 01/27/19 03/25/19 History [Duoneb 0.5 mg-3 mg/3 ml Soln] Budesonide/Formoterol Fumarate 2 puff INHALATION RT-BID 02/21/19 03/25/19 History [Symbicort 160-4.5 Mcg Inhaler] Calcium Acetate [PhosLo] 667 mg PO AC-TID 02/21/19 03/25/19 History Melatonin 1 mg PO HS 02/21/19 03/25/19 History Acetaminophen Tab [Tylenol] 650 mg PO TID 03/08/19 03/25/19 History ALPRAZolam [Xanax] 0.25 mg PO Q8H PRN #9 tab 03/11/19 03/25/19 Rx Amiodarone [Cordarone] 200 mg PO DAILY #0 03/11/19 03/25/19 Rx Aspirin 81 mg PO DAILY #1 chewable 03/11/19 03/25/19 Rx Clopidogrel [Plavix] 75 mg PO DAILY tab 03/11/19 03/25/19 Rx Metoprolol Tartrate [Lopressor] 50 mg PO BID tab 03/11/19 03/25/19 Rx Atorvastatin [Lipitor] 80 mg PO DAILY@199903/25/19 03/25/19 History Sertraline HCl [Zoloft] 25 mg PO DAILY 03/25/19 03/25/19 History Allergies Allergy/AdvReac Type Severity Reaction Status Date / Time No Known Allergies Allergy Verified 03/25/19 11:51 Physical Examination - Vital Signs Vital Signs: Vital Signs Temp Pulse Resp BP Pulse Ox 03/28/19 11:40 105 H 03/28/19 11:21 100 03/28/19 11:00 105 H 14 99 03/28/19 10:45 101 H 14 100 03/28/19 10:30 93 17 100 03/28/19 10:15 114 H 20 102/60 100 03/28/19 10:00 112 H 20 100 03/28/19 09:45 105 H 20 100 03/28/19 09:30 103 H 20 100 03/28/19 09:15 101 H 19 100 03/28/19 09:00 94 16 99 03/28/19 08:45 101 H 15 100 03/28/19 08:30 101 H 16 99 03/28/19 08:19 112 H 03/28/19 08:15 98 17 100 03/28/19 08:00 97.5 F L 103 H 16 114/88 100 03/28/19 07:49 102 H 03/28/19 07:45 103 H 16 100 03/28/19 07:30 87 16 100 03/28/19 07:15 100 16 100 03/28/19 07:00 109 H 12 94 L 03/28/19 06:45 97 22 81/49 96 03/28/19 06:30 108 H 13 95 03/28/19 06:15 93 12 81/49 96 03/28/19 06:00 93 16 94 L 03/28/19 05:45 101 H 14 98 03/28/19 05:42 97.5 F L 96 18 116/72 98 03/28/19 05:30 91 14 98 03/28/19 05:15 104 H 14 86/65 03/28/19 05:00 117 H 13 95 03/28/19 04:45 89 13 119/88 03/28/19 04:30 90 14 89/64 96 03/28/19 04:15 92 13 89/64 100 03/28/19 04:00 97.6 F 82 14 87/64 100 03/28/19 03:45 100 16 87/64 94 L 03/28/19 03:40 93 03/28/19 03:30 98 13 87/64 03/28/19 03:15 92 16 81/55 96 03/28/19 03:00 86 13 82/58 100 03/28/19 02:45 98 13 100 03/28/19 02:30 96 17 100 03/28/19 02:15 87 12 101/63 100 03/28/19 02:00 94 21 101/63 99 03/28/19 01:45 90 19 03/28/19 01:30 105 H 20 03/28/19 01:15 98 12 104/68 03/28/19 01:00 94 12 82/62 94 L 03/28/19 00:45 90 14 95 03/28/19 00:30 101 H 14 94 L 03/28/19 00:15 101 H 14 82/62 95 03/28/19 00:00 97.6 F 98 14 89/65 98 03/27/19 23:56 97.6 F 92 14 89/65 98 03/27/19 23:50 99 14 72/57 98 03/27/19 23:45 93 14 98 03/27/19 23:30 104 H 14 99 03/27/19 23:15 99 14 80/60 98 03/27/19 23:00 101 H 14 92 L 03/27/19 22:51 103 H 21 03/27/19 22:45 98 14 99 03/27/19 22:42 93 20 03/27/19 22:30 86 14 100 03/27/19 22:15 92 14 03/27/19 22:00 98 14 87/68 100 03/27/19 21:45 84 14 03/27/19 21:30 89 14 03/27/19 21:15 88 18 80/59 98 03/27/19 21:00 98 14 89/63 03/27/19 20:45 102 H 14 100/65 03/27/19 20:30 91 14 100/65 98 03/27/19 20:15 115 H 15 100/65 03/27/19 20:00 97.6 F 103 H 15 100/65 95 03/27/19 19:45 95 20 03/27/19 19:36 106 H 03/27/19 19:30 92 19 100 03/27/19 19:16 106 H 03/27/19 19:15 91 22 94 L 03/27/19 19:00 104 H 19 100 03/27/19 18:45 109 H 17 100 03/27/19 18:30 98 20 100 03/27/19 18:15 105 H 14 96/70 100 03/27/19 18:14 97.7 F 94 19 94/54 100 11/10/19 18:00 110 H 18 100 03/27/19 17:45 89 19 100 03/27/19 17:30 87 16 100 03/27/19 17:15 100 18 100/72 100 03/27/19 17:00 103 H 15 100 03/27/19 16:45 96 17 100 03/27/19 16:30 101 H 19 100 03/27/19 16:15 97 15 91/64 100 03/27/19 16:00 97.5 F L 97 15 93/67 100 03/27/19 15:45 109 H 17 100 03/27/19 15:32 106 H 03/27/19 15:30 93 15 99 03/27/19 15:15 115 H 21 95 03/27/19 15:13 111 H 03/27/19 15:00 105 H 15 99 03/27/19 14:45 103 H 19 98 03/27/19 14:30 100 12 99 03/27/19 14:15 101 H 20 92 L 03/27/19 14:00 100 19 99 03/27/19 13:45 97.5 F L 98 20 104/58 100 03/27/19 13:30 110 H 18 99 03/27/19 13:15 94 18 92 L 03/27/19 13:00 105 H 14 98 03/27/19 12:45 99 13 100 03/27/19 12:30 95 22 100 03/27/19 12:15 82 19 100 Intake and Output 03/27/19 03/28/19 03/28/19 22:59 06:59 14:59 Intake Total 576 687.543 546.095 Output Total 200 400 0 Balance 376 287.543 546.095 Intake: IV 446 212 172 0.9 NS Carrier 60 160 40 Piperacillin-Tazobactam 3 100 100 .375 gm In Sodium Chloride 0.9% 100 ml @ 25 mls/hr IVPB Q12HR [facility] Rx #:[id number] Vancomycin 1,000 mg In 250 Sodium Chloride 0.9% 250 ml @ 125 mls/hr IVPB ONCE ONE Rx#:[id number] art line 36 52 32 Intake, IV Titration 325.543 44.095 Amount Dextrose 10 % in Water 250 250 ml @ 999 mls/hr IV ONCE ONE Rx#:[id number] Norepinephrine 32 mg In 0.888 4.829 Sodium Chloride 0.9% 218 ml @ 0.05 MCG/KG/MIN 1. 495 mls/hr IV .Q24H [facility] Rx#:[id number] Propofol 1,000 mg In 74.655 39.266 Empty Bag 1 bag @ Titrate IV .Q0M [facility] Rx#: [id number] Tube Feeding 100 120 240 Other 30 30 90 Output: Urine 0 0 0 Other 200 400 Other: # Bowel Movements 1 Weight 56.3 kg ABP, PAP, CO, CI - Last 8 Hours Arterial Blood Pressure 115/63 Arterial Blood Pressure 110/64 Arterial Blood Pressure 117/63 Arterial Blood Pressure 109/62 Arterial Blood Pressure 118/66 Arterial Blood Pressure 109/61 Arterial Blood Pressure 112/64 Arterial Blood Pressure 115/64 Arterial Blood Pressure 111/60 Arterial Blood Pressure 90/53 Arterial Blood Pressure 110/65 Arterial Blood Pressure 107/59 Arterial Blood Pressure 120/69 Arterial Blood Pressure 114/70 Arterial Blood Pressure 121/68 Arterial Blood Pressure 110/65 Arterial Blood Pressure 117/70 Arterial Blood Pressure 112/64 Arterial Blood Pressure 113/65 Arterial Blood Pressure 125/77 Arterial Blood Pressure 109/65 Arterial Blood Pressure 123/71 Arterial Blood Pressure 101/59 Arterial Blood Pressure 112/66 Arterial Blood Pressure 97/59 Arterial Blood Pressure 136/73 Arterial Blood Pressure 80/41 Arterial Blood Pressure 110/57 On examination patient is an elderly female, who is obtunded, intubated on mechanical ventilation. Patient is not on any sedatives. Patient's pupils are round and reacting. Patient has slight gaze deviation to the right at times. Face cannot be assessed. Patient is hemiplegic on the left side. Her right arm appears definitely better, and sometimes she moves it up spontaneously. Patient has obvious Babinski on the left side, and possibly on the right also. Tone is increased in the left. Reflexes are brisk on the left. Results Patient has significant leukocytosis, anemia, platelets have dropped to 96. Patient's sodium was 130 on arrival. BUN was 63, but not improved to 44. AST is elevated 74, ALT 117. TSH is normal. Vitamin B12 493 on 12/28/2018, folate 1063. - Laboratory Findings CBC and BMP: 03/28/19 04:05 03/28/19 04:05 Abnormal Lab Findings: Abnormal Labs 1103/25/19 03/25/19 10:35 10:35 10:35 WBC 22.8 H RBC 3.30 L Hgb 11.0 L Hct MCV 104.8 H D RDW 17.3 H Plt Count Neutrophils # Neutrophils # (Manual) 21.60 H Lymphocytes # Lymphocytes # (Manual) 0.23 L Metamyelocytes # (Man) 0.23 H Myelocytes # (Manual) 0.23 H Macrocytosis APTT ABG pH ABG pCO2 ABG pO2 ABG HCO3 ABG Total CO2 ABG O2 Saturation Sodium 130 L Potassium Chloride 91 L Carbon Dioxide 19 L BUN 63 H Creatinine 5.60 H Glucose 129 H POC Glucose (mg/dL) Plasma Lactic Acid Erich Calcium AST 74 H ALT 117 H Alkaline Phosphatase 239 H Troponin I 2.010 H* Total Protein 5.5 L Albumin 2.7 L Urine Appearance Urine Protein Urine Blood Ur Leukocyte Esterase Urine RBC Urine WBC Urine WBC Clumps Urine Bacteria Urine Mucus 03/25/19 03/25/19 03/25/19 10:35 10:57 11:43 WBC RBC Hgb Hct MCV RDW Plt Count Neutrophils # Neutrophils # (Manual) Lymphocytes # Lymphocytes # (Manual) Metamyelocytes # (Man) Myelocytes # (Manual) Macrocytosis APTT ABG pH 7.31 L ABG pCO2 ABG pO2 >400 H ABG HCO3 20 L ABG Total CO2 ABG O2 Saturation 99.4 H Sodium Potassium Chloride Carbon Dioxide BUN Creatinine Glucose POC Glucose (mg/dL) Plasma Lactic Acid Erich 2.8 H* Calcium AST ALT Alkaline Phosphatase Troponin I Total Protein Albumin Urine Appearance Turbid H Urine Protein 1+ H Urine Blood Moderate H Ur Leukocyte Esterase Large H Urine RBC 37 H Urine WBC >182 H Urine WBC Clumps Many H Urine Bacteria Many H Urine Mucus Many H 03/25/19 03/25/19 03/25/19 15:10 19:09 23:25 WBC RBC Hgb Hct MCV RDW Plt Count Neutrophils # Neutrophils # (Manual) Lymphocytes # Lymphocytes # (Manual) Metamyelocytes # (Man) Myelocytes # (Manual) Macrocytosis APTT ABG pH ABG pCO2 ABG pO2 ABG HCO3 ABG Total CO2 ABG O2 Saturation Sodium Potassium Chloride Carbon Dioxide BUN Creatinine Glucose POC Glucose (mg/dL) Plasma Lactic Acid Erich 2.6 H* 3.8 H* 3.8 H* Calcium AST ALT Alkaline Phosphatase Troponin I Total Protein Albumin Urine Appearance Urine Protein Urine Blood Ur Leukocyte Esterase Urine RBC Urine WBC Urine WBC Clumps Urine Bacteria Urine Mucus 03/26/19 03/26/19 03/26/19 00:00 03:20 04:40 WBC 24.4 H RBC 2.66 L Hgb 8.8 L D Hct 28.3 L MCV 106.2 H RDW 17.6 H Plt Count 110 L Neutrophils # Neutrophils # (Manual) 22.60 H Lymphocytes # Lymphocytes # (Manual) 0.98 L Metamyelocytes # (Man) Myelocytes # (Manual) Macrocytosis Marked A APTT ABG pH ABG pCO2 ABG pO2 ABG HCO3 ABG Total CO2 ABG O2 Saturation Sodium Potassium Chloride Carbon Dioxide BUN Creatinine Glucose POC Glucose (mg/dL) 118 H Plasma Lactic Acid Erich 3.8 H* Calcium AST ALT Alkaline Phosphatase Troponin I Total Protein Albumin Urine Appearance Urine Protein Urine Blood Ur Leukocyte Esterase Urine RBC Urine WBC Urine WBC Clumps Urine Bacteria Urine Mucus 03/26/19 03/26/19 03/26/19 04:40 04:50 07:04 WBC RBC Hgb Hct MCV RDW Plt Count Neutrophils # Neutrophils # (Manual) Lymphocytes # Lymphocytes # (Manual) Metamyelocytes # (Man) Myelocytes # (Manual) Macrocytosis APTT ABG pH 7.32 L ABG pCO2 34 L ABG pO2 191 H ABG HCO3 17 L ABG Total CO2 18 L ABG O2 Saturation 98.8 H Sodium 132 L Potassium 5.2 H Chloride Carbon Dioxide 17 L BUN 54 H Creatinine 3.65 H Glucose 120 H POC Glucose (mg/dL) Plasma Lactic Acid Erich 3.1 H* Calcium 7.2 L AST ALT Alkaline Phosphatase Troponin I Total Protein Albumin Urine Appearance Urine Protein Urine Blood Ur Leukocyte Esterase Urine RBC Urine WBC Urine WBC Clumps Urine Bacteria Urine Mucus 03/26/19 03/26/19 03/26/19 10:45 12:05 12:05 WBC 24.5 H RBC 2.51 L Hgb 8.3 L Hct 26.7 L MCV 106.1 H RDW 17.7 H Plt Count 101 L Neutrophils # Neutrophils # (Manual) 22.50 H Lymphocytes # Lymphocytes # (Manual) 0.74 L Metamyelocytes # (Man) Myelocytes # (Manual) Macrocytosis Marked A APTT ABG pH ABG pCO2 ABG pO2 ABG HCO3 ABG Total CO2 ABG O2 Saturation Sodium Potassium Chloride Carbon Dioxide BUN Creatinine Glucose POC Glucose (mg/dL) Plasma Lactic Acid Erich 2.2 H* Calcium AST ALT Alkaline Phosphatase Troponin I 1.610 H* Total Protein Albumin Urine Appearance Urine Protein Urine Blood Ur Leukocyte Esterase Urine RBC Urine WBC Urine WBC Clumps Urine Bacteria Urine Mucus 03/26/19 03/26/19 03/26/19 12:05 12:08 18:03 WBC RBC Hgb Hct MCV RDW Plt Count Neutrophils # Neutrophils # (Manual) Lymphocytes # Lymphocytes # (Manual) Metamyelocytes # (Man) Myelocytes # (Manual) Macrocytosis APTT 33.9 H ABG pH ABG pCO2 ABG pO2 ABG HCO3 ABG Total CO2 ABG O2 Saturation Sodium Potassium Chloride Carbon Dioxide BUN Creatinine Glucose POC Glucose (mg/dL) 126 H 114 H Plasma Lactic Acid Erich Calcium AST ALT Alkaline Phosphatase Troponin I Total Protein Albumin Urine Appearance Urine Protein Urine Blood Ur Leukocyte Esterase Urine RBC Urine WBC Urine WBC Clumps Urine Bacteria Urine Mucus 03/27/19 03/27/19 03/27/19 01:49 04:45 04:45 WBC 22.2 H RBC 2.19 L Hgb 7.5 L Hct 22.5 L MCV 102.6 H RDW 17.8 H Plt Count 83 L Neutrophils # 20.7 H Neutrophils # (Manual) Lymphocytes # 0.4 L Lymphocytes # (Manual) Metamyelocytes # (Man) Myelocytes # (Manual) Macrocytosis APTT ABG pH 7.47 H ABG pCO2 31 L ABG pO2 150 H ABG HCO3 ABG Total CO2 ABG O2 Saturation 98.6 H Sodium 132 L Potassium 3.3 L Chloride Carbon Dioxide BUN 49 H Creatinine 3.17 H Glucose 105 H POC Glucose (mg/dL) Plasma Lactic Acid Erich Calcium 6.9 L AST ALT Alkaline Phosphatase Troponin I Total Protein Albumin Urine Appearance Urine Protein Urine Blood Ur Leukocyte Esterase Urine RBC Urine WBC Urine WBC Clumps Urine Bacteria Urine Mucus 03/27/19 03/28/19 03/28/19 05:37 00:22 00:58 WBC RBC Hgb Hct MCV RDW Plt Count Neutrophils # Neutrophils # (Manual) Lymphocytes # Lymphocytes # (Manual) Metamyelocytes # (Man) Myelocytes # (Manual) Macrocytosis APTT ABG pH ABG pCO2 ABG pO2 ABG HCO3 ABG Total CO2 ABG O2 Saturation Sodium Potassium Chloride Carbon Dioxide BUN Creatinine Glucose POC Glucose (mg/dL) 102 H 67 L 156 H Plasma Lactic Acid Erich Calcium AST ALT Alkaline Phosphatase Troponin I Total Protein Albumin Urine Appearance Urine Protein Urine Blood Ur Leukocyte Esterase Urine RBC Urine WBC Urine WBC Clumps Urine Bacteria Urine Mucus 03/28/19 03/28/19 03/28/19 04:05 04:05 04:53 WBC 25.1 H RBC 2.29 L Hgb 7.7 L Hct 23.8 L MCV 103.9 H RDW 17.8 H Plt Count 96 L Neutrophils # 23.4 H Neutrophils # (Manual) Lymphocytes # 0.5 L Lymphocytes # (Manual) Metamyelocytes # (Man) Myelocytes # (Manual) Macrocytosis APTT ABG pH 7.48 H ABG pCO2 ABG pO2 171 H ABG HCO3 26 H ABG Total CO2 27 H ABG O2 Saturation 98.7 H Sodium 132 L Potassium 3.3 L Chloride 97 L Carbon Dioxide BUN 44 H Creatinine 3.13 H Glucose 110 H POC Glucose (mg/dL) Plasma Lactic Acid Erich Calcium 7.0 L AST ALT Alkaline Phosphatase Troponin I Total Protein Albumin Urine Appearance Urine Protein Urine Blood Ur Leukocyte Esterase Urine RBC Urine WBC Urine WBC Clumps Urine Bacteria Urine Mucus 03/28/19 06:55 WBC RBC Hgb Hct MCV RDW Plt Count Neutrophils # Neutrophils # (Manual) Lymphocytes # Lymphocytes # (Manual) Metamyelocytes # (Man) Myelocytes # (Manual) Macrocytosis APTT ABG pH ABG pCO2 ABG pO2 ABG HCO3 ABG Total CO2 ABG O2 Saturation Sodium Potassium Chloride Carbon Dioxide BUN Creatinine Glucose POC Glucose (mg/dL) 105 H Plasma Lactic Acid Erich Calcium AST ALT Alkaline Phosphatase Troponin I Total Protein Albumin Urine Appearance Urine Protein Urine Blood Ur Leukocyte Esterase Urine RBC Urine WBC Urine WBC Clumps Urine Bacteria Urine Mucus Assessment and Plan Assessment: * Altered mental status, probably due to toxic metabolic encephalopathy. Patient has multifocal pneumonia, renal insufficiency, and anemia, electrolyte imbalance. * Patient with left hemiplegia. Her examination appears to be worse than previous exam. Rule out acute to subacute CVA. * History of acute to subacute ischemic stroke involving left occipital and left occipital parietal junction 03/09/2019 * Right ICA stenosis 70% per CTA report * Atrial fibrillation, not on anticoagulation due to recent history of right cerebellar hemorrhage 01/28/2019. * Vascular dementia Plan: * Patient appears significantly obtunded. This could be toxic metabolic. However her examination appears to be somewhat worse than before. We will repeat computed tomography scan of the head. * If no evidence of hemorrhage, then patient will be clear for starting heparin or Apixaban at the recommended dose. * Your medical management.
[2019-03-28] MEDS: MEROPENEM 1 GM in SODIUM CHLORIDE 0.9% 100 ML IVPB SCH ×2 (12:55→19:41)
--- NOTE | 2019-03-28 13:11 | PN ---
PROGRESS NOTE Patient is seen for followup for end-stage renal disease. She was started on a low dose of Levophed as blood pressure remained low. Patient remains on the vent. On examination this morning blood pressure was 109/61, heart rate of 102 per minute, she is afebrile. Examination of the heart S1, S2. Examination of the lungs, bilateral breath sounds are heard. Decreased breath sounds at bases, abdomen is soft. Examination of the lower extremities shows no evidence of edema. BURIAL AGENT exam cannot be performed. LABS: Show sodium 132, potassium 3.3, BUN 44, creatinine 3.13, calcium 7.0, hemoglobin 7.7 g/dL. ASSESSMENT: 1. End-stage renal disease maintained on peritoneal dialysis, continue current PD exchanges. 2. Ventilator-dependent respiratory failure associated with pneumonia maintained on antibiotics. 3. Hypotension associated with sepsis pneumonia restarted on low-dose Levophed. 4. History of cerebrovascular accident, status post evaluation by Neurology. She does have left hemiparesis. 5. Right carotid artery stenosis. 6. History of atrial fibrillation not on anticoagulation due to recent right cerebellar hemorrhage. 7. History of bilateral renal artery stenosis with uncontrolled hypertension previously. PLAN: Continue current PD exchanges. Overall prognosis is poor. MMODL / IJN: [id number] /
--- NOTE | 2019-03-28 13:31 | CT ---
EXAMINATION TYPE: CT brain wo con DATE OF EXAM: 03/28/2019 COMPARISON: 03/26/2019 HISTORY: rule out new cva. Altered mental status. CT DLP: 2100.4 mGycm Automated exposure control for dose reduction was used. FINDINGS: Left occipital lobe and right frontal encephalomalacia are similar to the prior. Confluent areas of h ypoattenuation in the periventricular and subcortical white matter are redemonstrated. No acute intra cranial hemorrhage or midline shift. Sulcal and ventricular prominence are symmetric and most commonl y on the basis of age-related volume loss. Advanced atherosclerosis of the intracranial vasculature. Calvarium is intact. Paranasal sinuses and mastoid air cells are well. IMPRESSION: OLD INFARCTS IN THE RIGHT FRONTAL LOBE AND LEFT OCCIPITAL LOBE. THERE IS EXTENSIVE BACKGROUND NONSPEC IFIC WHITE MATTER CHANGE, LIMITING EVALUATION FOR NEW LACUNAR INJURY. IF THERE IS FURTHER CONCERN FOR ACUTE CVA MRI WOULD BE RECOMMENDED. NO ACUTE INTRACRANIAL HEMORRHAGE.
--- NOTE | 2019-03-28 13:49 | P.CON ---
Consult Note - . Consult date: 03/28/19 Assessment/Plan:: This is a 73-year-old female who is being seen for pressure ulcerations that patient had prior to arrival. Patient has ulcerations on the sacrum stage II, and left lateral ankle stage II. Patient is a resident of an extended care facility she came in with the ulcerations prior to hospitalization. Patient is unable to discuss any treatment options due to being intubated. Ulceration to sacrum shows erythema and excoriation, multiple open ulcerations with granulation noted, left lateral ankle shows ulceration with significant amount of adherent Slough and minimal granulation seen in the wound bed. The lateral ulceration is being treated with foam, the sacral ulceration is being treated with barrier cream. Review of systems: Integumentary: Unable to respond due to intubation Physical exam: Integumentary: See HPI Assessment/plan: 1. Nonhealing pressure ulcer stage II coccyx. Barrier cream to site, continue to offload. 2. Nonhealing pressure ulcer stage II left lateral malleolus. Apply honey alginate, feeling like gauze, foam to site. Continue with foam boots. Thank you kindly for the consult. Any questions please contact the wound care center. DNP note has been reviewed and discussed with Dr. Glasgow and the impression and plan of care has been directed as dictated.
[2019-03-28 18:17] LABS: Glucose,Whole Blood 134 mg/dL (75-99)
[2019-03-28] MEDS: ATORVASTATIN 80 MG TAB PO SCH (20:18)
[2019-03-28] MEDS: APIXABAN 2.5 MG TABLET PO SCH (20:18)
[2019-03-29 00:08] LABS: Glucose,Whole Blood 134 mg/dL (75-99)
[2019-03-29] MEDS: IPRATROPIUM-ALBUTEROL 3 ML NEB INHALATION SCH ×6 (02:13→20:21)
[2019-03-29] MEDS: MEROPENEM 1 GM in SODIUM CHLORIDE 0.9% 100 ML IVPB SCH (03:16)
[2019-03-29 04:56] LABS: Anisocytosis Slight; Basophils % (A) 0 %; Eosinophils # (A) 0.1 k/uL (0-0.7); Eosinophils % (A) 1 %; HCT 23.9 % (34.0-46.0); HGB 7.5 gm/dL (11.4-16.0); Hypochromasia Slight; Lymphocytes # (A) 0.4 k/uL (1.0-4.8); Lymphocytes % (A) 2 %; MCH 32.8 pg (25.0-35.0); MCHC 31.4 g/dL (31.0-37.0); MCV 104.7 fL (80.0-100.0); Macrocytosis Moderate; Mean Platelet Volume 7.4; Monocytes # (A) 0.6 k/uL (0-1.0); Monocytes % (A) 4 %; Neutrophils # (A) 16.9 k/uL (1.3-7.7); Neutrophils % (A) 92 %; Platelet Count 129 k/uL (150-450); Poikilocytosis Slight; RBC 2.29 m/uL (3.80-5.40); RDW 17.8 % (11.5-15.5); WBC 18.4 k/uL (3.8-10.6)
[2019-03-29 05:09] LABS: Calcium 6.6 mg/dL (8.4-10.2); Potassium 3.4 mmol/L (3.5-5.1)
[2019-03-29] MEDS: DIALYSIS (PERIT 1.5%) 2,500 ML 37.5 G/2,500 ML BAG INTRAPERIT SCH ×3 (05:52→18:41)
[2019-03-29 06:24] LABS: Glucose,Whole Blood 135 mg/dL (75-99)
--- NOTE | 2019-03-29 07:13 | P.PN ---
Subjective Progress Note Date: 03/29/19 Principal diagnosis: Acute non-ST patient myocardial infarction This is a pleasant 73-year-old female patient with a past medical history significant for long-standing persistent atrial fibrillation, end stage renal disease on peritoneal dialysis, chronic obstructive pulmonary disease, as well as multiple comorbid conditions including carotid disease, was admitted to the hospital with acute hypoxic respiratory failure secondary to multilobar pneumonia. The patient was intubated and currently she is on mechanical ventilation. We involved in the care of the patient for the management of atrial fibrillation as well as abnormal troponin which was above 2. We recommended conservative medical approach. Initially the patient was weaned off the vasopressors but she was started back on vasopressors yesterday. The limited echocardiogram was performed and revealed normal LV function with EF around 50-55%. On follow-up with the patient today, 03/29/2019, the patient continues to be intubated on mechanical ventilation. She continues to be in atrial fibrillation with a relatively controlled heart rate. Yesterday I did increase the dose of amiodarone and stopped the metoprolol in view of the marginally low blood pressure sometimes requiring vasopressors. Initially we thought that the patient has history of intracranial bleeding and because of that she was not sta rted on oral anticoagulation but we were told by the neurologist on service that there is no history of intracranial bleeding. Because of the the aspirin was stopped and she was started on oral anticoagulation with Eliquis. I still believe that the patient might benefit from coronary angiogram down the line and I will touch base with the intensive care team. The hemoglobin this morning is 7.5. The creatinine is stable. The chest x-ray was reviewed and continues to show infiltrate. Objective - Vital Signs Vital signs: Vital Signs Temp 98.0 F 03/29/19 05:53 Pulse 108 H 03/29/19 07:00 Resp 21 03/29/19 07:00 BP 103/84 03/29/19 07:00 Pulse Ox 100 03/29/19 07:00 Intake & Output 03/28/19 03/29/19 03/29/19 18:59 06:59 18:59 Intake Total 7429.317 0333.027 48 Output Total 0 500 Balance 1104.005 668.027 48 Weight 58.6 kg Intake: IV 399 357 11 0.9 NS Carrier 100 85 5 Meropenem 1 gm In Sodium 100 200 Chloride 0.9% 100 ml @ 200 mls/hr IVPB Q8H [facility] Rx#:[id number] Piperacillin-Tazobactam 3 125 .375 gm In Sodium Chloride 0.9% 100 ml @ 25 mls/hr IVPB Q12HR [facility] Rx #:[id number] art line 74 72 6 Intake, IV Titration 47.005 129.027 Amount Meropenem 1 gm In Sodium 100 Chloride 0.9% 100 ml @ 200 mls/hr IVPB Q8H [facility] Rx#:[id number] Norepinephrine 32 mg In 7.739 10.758 Sodium Chloride 0.9% 218 ml @ 0.05 MCG/KG/MIN 1. 495 mls/hr IV .Q24H [facility] Rx#:[id number] Propofol 1,000 mg In 39.266 18.269 Empty Bag 1 bag @ Titrate IV .Q0M SIMON Rx#: [id number] Tube Feeding 508 592 37 Other 150 90 Output: Urine 0 0 Other 500 Other: Voiding Method Indwelling Catheter # Bowel Movements 1 1 ABP, PAP, CO, CI - Last Documented Arterial Blood Pressure 119/65 - Constitutional General appearance: Present: no acute distress - Respiratory Respiratory: bilateral: CTA - Cardiovascular Rhythm: irregularly irregular Heart sounds: normal: S1, S2 - Labs CBC & Chem 7: 03/29/19 04:20 03/29/19 04:20 Labs: Abnormal Lab Results - Last 24 Hours (Table) 03/28/19 03/28/19 03/28/19 Range/Units 11:50 18:06 23:56 WBC (3.8-10.6) k/uL RBC (3.80-5.40) m/uL Hgb (11.4-16.0) gm/dL Hct (34.0-46.0) % MCV (80.0-100.0) fL RDW (11.5-15.5) % Plt Count (150-450) k/uL Neutrophils # (1.3-7.7) k/uL Lymphocytes # (1.0-4.8) k/uL Sodium (137-145) mmol/L Potassium (3.5-5.1) mmol/L Chloride (98-107) mmol/L BUN (7-17) mg/dL Creatinine (0.52-1.04) mg/dL Glucose (74-99) mg/dL POC Glucose (mg/dL) 144 H 134 H 134 H (75-99) mg/dL Calcium (8.4-10.2) mg/dL 03/29/19 03/29/19 03/29/19 Range/Units 04:20 04:20 06:04 WBC 18.4 H (3.8-10.6) k/uL RBC 2.29 L (3.80-5.40) m/uL Hgb 7.5 L (11.4-16.0) gm/dL Hct 23.9 L (34.0-46.0) % MCV 104.7 H (80.0-100.0) fL RDW 17.8 H (11.5-15.5) % Plt Count 129 L (150-450) k/uL Neutrophils # 16.9 H (1.3-7.7) k/uL Lymphocytes # 0.4 L (1.0-4.8) k/uL Sodium 133 L (137-145) mmol/L Potassium 3.4 L (3.5-5.1) mmol/L Chloride 97 L (98-107) mmol/L BUN 46 H (7-17) mg/dL Creatinine 2.83 H (0.52-1.04) mg/dL Glucose 139 H (74-99) mg/dL POC Glucose (mg/dL) 135 H (75-99) mg/dL Calcium 6.6 L (8.4-10.2) mg/dL Microbiology - Last 24 Hours (Table) 03/25/19 18:25 Gram Stain - Preliminary Peritoneal Fluid Body Fluid Culture - Preliminary 03/25/19 11:15 Blood Culture - Preliminary Blood No Growth after 72 hours 03/25/19 11:05 Gram Stain - Final Sputum Sputum Culture - Final Escherichia coli Assessment and Plan Assessment: Assessment #1 multilobe pneumonia #2 sepsis secondary to the above #3 acute non-ST deviation myocardial infarction #4 long-standing persistent atrial fibrillation #5 chronic obstructive pulmonary disease #6 carotid disease Plan #1 continue the current medical regimen including amiodarone by mouth #2 continue oral anticoagulation in combination was antiplatelet with Plavix #3 continue monitor the kidney function and electrolytes #4 coronary angiogram down the line. I will touch base with the intensive care team #5 follow-up with the patient
[2019-03-29 07:27] LABS: ABG Base Excess 3.6 mmol/L; ABG HCO3 27 mmol/L (21-25); ABG Oxygen Saturation 98.6 % (94-97); ABG PCO2 33 mmHg (35-45); ABG PH 7.51 (7.35-7.45); ABG PO2 145 mmHg (83-108); ABG TCO2 28 mmol/L (19-24); Allen Test Performed? Yes
--- NOTE | 2019-03-29 07:48 | XR ---
EXAMINATION TYPE: XR chest 1V portable DATE OF EXAM: 03/29/2019 COMPARISON: 03/28/2019 HISTORY: Tube placement TECHNIQUE: Single frontal view of the chest is obtained. FINDINGS: Bilateral airspace disease is stable. Neoplastic process right upper lobe not excluded. Un derlying COPD noted. Biapical pleural thickening. Diffuse osteopenia. ET tube, NG tube and central li ne stable. IMPRESSION: Stable bilateral airspace disease with most marked changes involving the right upper lob e. Underlying neoplasm in the differential diagnosis. Correlate clinically for pneumonia
[2019-03-29] MEDS ORDERED: POTASSIUM BICARBONATE/CIT AC 20 MEQ TABLET.EFF NG-TUBE SCH ×3 (08:00→09:00)
[2019-03-29] MEDS: CHLORHEXIDINE GLUCONATE 15 ML CUP MUCOUS MEM SCH ×2 (08:21→23:57)
[2019-03-29] MEDS: APIXABAN 2.5 MG TABLET PO SCH ×2 (08:21→20:49)
[2019-03-29] MEDS: AMIODARONE 200 MG TAB PO SCH ×2 (08:21→20:48)
[2019-03-29] MEDS: PANTOPRAZOLE 40 MG/10 ML VIAL IV SCH (08:22)
[2019-03-29] MEDS: CLOPIDOGREL 75 MG TAB PO SCH (08:22)
[2019-03-29 11:38] LABS: Glucose,Whole Blood 133 mg/dL (75-99)
--- NOTE | 2019-03-29 12:31 | P.PN ---
Subjective Progress Note Date: 03/29/19 Principal diagnosis: Acute hypoxic respiratory failure secondary to multilobar pneumonia, possibly hospital acquired. Could also be aspiration pneumonia. This is a 71-year-old female patient, with multiple medical problems and comorbidities. The patient came into the emergency department today with complaints of shortness of breath. She was very weak and she was in respiratory failure. The patient was intubated in the emergency department as the patient was diagnosed having a multilobar right lung pneumonia. The patient was brought into the intensive care unit intubated on a mechanical ventilator. She has already received a dose of cefepime. This patient has extensive history. 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 Subsequently the patient presented back into the hospital for difficulties with vision and the patient was diagnosed having an acute to subacute ischemic stroke involving the left occipital lobe and the left occipitoparietal junction. 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 She was also found to have a right ICA stenosis just above 70%. She has vascular dementia. In addition to that she has end- stage renal disease and she is on peritoneal dialysis. She suffers from chronic atrial fibrillation and anticoagulants. She has hypertension, COPD with a baseline FEV1 of 42% of predicted, diastolic heart failure, hypertension, and rheumatoid arthritis in addition to chronic anemia and hyperlipidemia. The patient has had multiple hospitalizations most recent of which was approximately 10 days ago. Currently she is sedated with propofol and she is calm and comfortable. She has received a total of 2 L of IV fluids. She is currently on assist control mode of ventilation at the rate of 16 him a tidal volume of 450, FiO2 of 50% with a PEEP of 5. She is in atrial fibrillation. She is on norepinephrine infusion running at 0.075 g per KG per minute. She has a triple-lumen catheter in the right subclavian. She had an abnormal UA with a white cell count of more than 182 with many bacteria and white cell clumps. Her white cell count is 22.8. Her creatinine is at 5.6 with a mean of 63. The patient's sodium is at 130. Lactic acid level is at 2.6. The patient's echocardiogram showed ejection fraction of 50-55%. Today's evaluation of 03/26/2019 I'm seeing this patient for a follow-up. The patient remains sedated with propofol which is currently running at 25 g per KG per minute. She is was sedated and she is calm and comfortable. She remains on a mechanical ventilator. She is an assist-control mode at the rate of 40 with a tidal volume of 450 and FiO2 of 40% with a PEEP of 5. Her chest x-ray showed a right upper and right perihilar pneumonia and today's chest x-ray shows improvement in the right lower lobe pneumonia and she still has a consolidation in the right upper lobe. ET tube is in a good location. She has a triple-lumen catheter in place. No significant orotracheal secretions and cultures are still pending for now. Meanwhile, the patient was covered with a combination of Zosyn and vancomycin. Her blood pressures improved. She remains in atrial fibrillation. On today's evaluation, she was weaned off the Levothroid earlier this morning and levo fed was discontinued probably 30 minutes ago. She does not make much urine. She undergoes peritoneal dialysis. Peritoneal fluid was also sent for cultures. The patient is receiving IV fluid rate of 100 mL an hour. She is afebrile. White cell count remains elevated. There has been drop in hemoglobin down to 8.8, however there is no signs of any acute bleeding. BUN is at 54, creatinine is at 3.6, lactic acid level is down to 3.1. The blood gases from today showed a pH of 7.32 with a pCO2 of 34 and pO2 of 191 and this was done and FiO2 of 50% and accordingly the FiO2 has been drop down to 40%. On 03/27/2019, I'm seeing this patient for a follow-up. The patient had a very busy day yesterday where she was taken off the sedation and mental status was monitored for a total of 3 hours while her being off the propofol. We will check in on her periodically in with did not feel that the patient was alert nor she regained back her alertness during this 3 hour sedation holiday. Upon stimulation, she would bite on the tube and based on that day tube bite block was inserted. No seizure activity was noted. I sent this patient for a CAT scan of the brain and the CAT scan essentially showed old findings which included cerebral atrophy, an old cortical infarct measuring 3 x 2 cm in size in the right was treated frontal lobe. There was also periventricular white matter disease and 4 cm hypodense area in the left occipital lobe related to old infarct. There was no evidence of any acute bleeding. This morning, the patient remains sedated with propofol which is currently running at 30 g per KG per minute. She is calm and comfortable. She withdraws to deep painful stimulation. She remains in atrial fibrillation. Rate is controlled for now. She is on no anticoagulation based on the fact that the patient has had any sensory cerebellar bleed. She remains on a mechanical ventilator on assist control mode at the rate of 14 with a tidal volume of 450 and the rate of 14 with an FiO2 of 40% and a PEEP of 5. The blood gases from today showed a pH of 7.47 with a pCO2 of 31 and a pO2 of 150 and this was on FiO2 of 40% and a chest x-ray from today showed persistent consolidation of the right upper lobe and there was a right upper lobe airspace disease in addition to development of some left-sided airspace disease. The patient's sputum is showing gram-negative bacillus. Final cultures and sensitivities are still pending. Meanwhile, the p atient is still on a combination of Zosyn and vancomycin. No significant orotracheal secretions. No pressors. The patient undergoing periodic peritoneal dialysis. We have noted a drop in hemoglobin down to 7.5. She is on Aranesp. No signs of any external bleeding at this point in time. She remains nothing by mouth. Patient was reevaluated on 03/28/2019, remains in the intensive care unit, intubated, mechanically ventilated. Her ventilator settings are assist control rate of 14 tidal volume 450 FiO2 40% and PEEP of 5. Patient is on propofol at 25 mcg/kg/m, and she is on norepinephrine at 0.01 mcg/kg/m. I plan to give the patient is sedation holiday and addressed mental status today. Apparently she was biting on the tube yesterday as per Dr. Parmar's note. Patient is presently calm, withdraws to deep painful stimulation. And she remains in atrial fibrillation. But rate seems to be fairly well controlled. Patient remains on periodic peritoneal dialysis. ABG today showed a pO2 of 171 pCO2 of 35 pH of 7.48, hence FiO2 was cut down to 35%. WBC count is 25.1 hemoglobin is 7.7 platelets are 96,000. Electrolytes showed low potassium of 3.3 BUN is 44 creatinine 3.13. Chest x-ray showed multifocal opacities compatible with multifocal pneumonia and minimal left basilar atelectasis. Sputum cultures have been positive mostly for E. coli./ESBL, hence we'll switch the patient to Merrem. Reevaluated today on 03/29/2019, patient remains in the ICU, intubated, mechanically ventilated. Her ventilator settings today are assist control rate of 14 tidal volume of 450 FiO2 35% and PEEP of 5. No drips at present, patient is only on 0.9 normal saline. She is off pressors. Remains on antibiotics in the form of Merrem. Chest x-ray continues to show significant bilateral airspace disease. Underlying neoplasm in the right upper lobe is not entirely ruled out. ABG today showed a pO2 of 145 pCO2 of 33 pH of 7.51. CBC showed leukocytosis with WBC count of 18.4 hemoglobin is 7.5. Basic metabolic profile is normal potassium is a bit low at 3.4 BUN is 46 creatinine is 2.83, steadily improving compared to creatinine of 5.60 on presentation. This was on 03/25/2019. Patient is now off sedatives and narcotics, she is arousable, opens her eyes, follows very simple instructions like squeezing hands and wiggling toes. Does not maintain a good eye contact. Objective - Vital Signs Vital signs: Vital Signs Temp 98 F 03/29/19 08:00 Pulse 115 H 03/29/19 11:55 Resp 17 03/29/19 10:00 BP 103/84 03/29/19 07:00 Pulse Ox 97 03/29/19 10:00 Intake & Output 03/28/19 03/29/19 03/29/19 18:59 06:59 18:59 Intake Total 1886.210 6895.027 235.596 Output Total 0 500 Balance 1104.005 668.027 235.596 Weight 58.6 kg Intake: IV 399 357 44 0.9 NS Carrier 100 85 20 Meropenem 1 gm In Sodium 100 200 Chloride 0.9% 100 ml @ 200 mls/hr IVPB Q8H [facility] Rx#:[id number] Piperacillin-Tazobactam 3 125 .375 gm In Sodium Chloride 0.9% 100 ml @ 25 mls/hr IVPB Q12HR [facility] Rx #:[id number] art line 74 72 24 Intake, IV Titration 47.005 129.027 13.596 Amount Meropenem 1 gm In Sodium 100 Chloride 0.9% 100 ml @ 200 mls/hr IVPB Q8H [facility] Rx#:[id number] Norepinephrine 32 mg In 7.739 10.758 Sodium Chloride 0.9% 218 ml @ 0.05 MCG/KG/MIN 1. 495 mls/hr IV .Q24H [facility] Rx#:[id number] Propofol 1,000 mg In 39.266 18.269 13.596 Empty Bag 1 bag @ Titrate IV .Q0M [facility] Rx#: [id number] Tube Feeding 508 592 148 Other 150 90 30 Output: Urine 0 0 Other 500 Other: Voiding Method Indwelling Catheter # Bowel Movements 1 1 ABP, PAP, CO, CI - Last Documented Arterial Blood Pressure 117/65 - Exam Physical Exam: Revealed a 73-year-old female intubated, mechanically ventilated, in no distress, awake and responsive. Head: Atraumatic, normocephalic. HEENT:[Neck is supple.] [No neck masses.] [No thyromegaly.] [No JVD.] PERRLA, EOMI, moist mucous membranes, or gastric tube and endotracheal tube are intact Chest: [Crackles and rhonchi noted bilaterally, symmetrical chest expansion noted..] Cardiac Exam: [Irregular irregular rhythm Normal S1 and S2, no S3 gallop, no murmur.] Abdomen: [Soft, nontender, no megaly, no rebound, no guarding, normal bowel sounds.] Peritoneal catheter is noted. Unremarkable. Extremities: [No clubbing, no edema, no cyanosis.] Good pulses bilaterally. Atrophy of muscles noted bilaterally. Neurological Exam: Arousable, opens eyes, follows simple instructions, does not maintain any eye contact. Psychiatric: Depressed mood, blunt affect, cannot assess mental status. Skin: No rashes. Lymphatics: No lymphadenopathy. - Labs CBC & Chem 7: 03/29/19 04:20 03/29/19 04:20 Labs: Abnormal Lab Results - Last 24 Hours (Table) 03/28/19 03/28/19 03/29/19 Range/Units 18:06 23:56 04:20 WBC 18.4 H (3.8-10.6) k/uL RBC 2.29 L (3.80-5.40) m/uL Hgb 7.5 L (11.4-16.0) gm/dL Hct 23.9 L (34.0-46.0) % MCV 104.7 H (80.0-100.0) fL RDW 17.8 H (11.5-15.5) % Plt Count 129 L (150-450) k/uL Neutrophils # 16.9 H (1.3-7.7) k/uL Lymphocytes # 0.4 L (1.0-4.8) k/uL ABG pH (7.35-7.45) ABG pCO2 (35-45) mmHg ABG pO2 (83-108) mmHg ABG HCO3 (21-25) mmol/L ABG Total CO2 (19-24) mmol/L ABG O2 Saturation (94-97) % Sodium (137-145) mmol/L Potassium (3.5-5.1) mmol/L Chloride (98-107) mmol/L BUN (7-17) mg/dL Creatinine (0.52-1.04) mg/dL Glucose (74-99) mg/dL POC Glucose (mg/dL) 134 H 134 H (75-99) mg/dL Calcium (8.4-10.2) mg/dL 03/29/19 03/29/19 03/29/19 Range/Units 04:20 06:04 07:25 WBC (3.8-10.6) k/uL RBC (3.80-5.40) m/uL Hgb (11.4-16.0) gm/dL Hct (34.0-46.0) % MCV (80.0-100.0) fL RDW (11.5-15.5) % Plt Count (150-450) k/uL Neutrophils # (1.3-7.7) k/uL Lymphocytes # (1.0-4.8) k/uL ABG pH 7.51 H (7.35-7.45) ABG pCO2 33 L (35-45) mmHg ABG pO2 145 H (83-108) mmHg ABG HCO3 27 H (21-25) mmol/L ABG Total CO2 28 H (19-24) mmol/L ABG O2 Saturation 98.6 H (94-97) % Sodium 133 L (137-145) mmol/L Potassium 3.4 L (3.5-5.1) mmol/L Chloride 97 L (98-107) mmol/L BUN 46 H (7-17) mg/dL Creatinine 2.83 H (0.52-1.04) mg/dL Glucose 139 H (74-99) mg/dL POC Glucose (mg/dL) 135 H (75-99) mg/dL Calcium 6.6 L (8.4-10.2) mg/dL 03/29/19 Range/Units 11:26 WBC (3.8-10.6) k/uL RBC (3.80-5.40) m/uL Hgb (11.4-16.0) gm/dL Hct (34.0-46.0) % MCV (80.0-100.0) fL RDW (11.5-15.5) % Plt Count (150-450) k/uL Neutrophils # (1.3-7.7) k/uL Lymphocytes # (1.0-4.8) k/uL ABG pH (7.35-7.45) ABG pCO2 (35-45) mmHg ABG pO2 (83-108) mmHg ABG HCO3 (21-25) mmol/L ABG Total CO2 (19-24) mmol/L ABG O2 Saturation (94-97) % Sodium (137-145) mmol/L Potassium (3.5-5.1) mmol/L Chloride (98-107) mmol/L BUN (7-17) mg/dL Creatinine (0.52-1.04) mg/dL Glucose (74-99) mg/dL POC Glucose (mg/dL) 133 H (75-99) mg/dL Calcium (8.4-10.2) mg/dL Microbiology - Last 24 Hours (Table) 03/25/19 18:25 Gram Stain - Preliminary Peritoneal Fluid Body Fluid Culture - Preliminary 03/25/19 11:15 Blood Culture - Preliminary Blood No Growth after 72 hours 03/25/19 11:05 Gram Stain - Final Sputum Sputum Culture - Final Escherichia coli Assessment and Plan Assessment: Impression: 1 acute on chronic hypoxic respiratory failure secondary to multilobar pneumonia secondary to ESBL E. coli. And secondary to underlying COPD 2 acute sepsis and septic shock requiring pressors. This is secondary to pneumonia. 3 end-stage renal disease, patient is on peritoneal dialysis 4 acute non-ST elevation myocardial infarction 5 severe COPD FEV1 in the range of 42% of predicted. 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 Recommendation: Continue ventilatory support. However I plan to give the patient a weaning trial today, she is presently off narcotics and sedatives, she was placed on pressure support of 8 and CPAP, plan to repeat her ABG. Off pressors not requiring any hemodynamic support at present. Continue antibiotics. Continue Merrem Continue nutritional support. Continue GI and DVT prophylaxis. Continue peritoneal dialysis Hospital weaning trial today on pressure support and CPAP. Continue bronchodilators for underlying COPD Patient was placed on pressure support and CPAP, plan to repeat ABG in the next couple of hours, her pressure support is presently at 8 and she is on CPAP. Not quite certain that the patient will tolerate weaning or extubation at this point, but we'll continue to try on a daily basis. Prognosis remains extremely poor and guarded. Critical care time is 35 minutes. Time with Patient: Greater than 30
[2019-03-29 12:41] LABS: ABG Base Excess 6.6 mmol/L; ABG HCO3 29 mmol/L (21-25); ABG Oxygen Saturation 98.7 % (94-97); ABG PCO2 34 mmHg (35-45); ABG PH 7.54 (7.35-7.45); ABG PO2 146 mmHg (83-108); ABG TCO2 30 mmol/L (19-24); Allen Test Performed? Yes
--- NOTE | 2019-03-29 12:42 | P.PN ---
Subjective Progress Note Date: 03/29/19 Patient intubated, but much more awake, but does not follow commands. Objective - Vital Signs Vital signs: Vital Signs Temp 98 F 03/29/19 08:00 Pulse 115 H 03/29/19 11:55 Resp 17 03/29/19 10:00 BP 103/84 03/29/19 07:00 Pulse Ox 97 03/29/19 10:00 Intake & Output 03/28/19 03/29/19 03/29/19 18:59 06:59 18:59 Intake Total 1420.179 8677.027 235.596 Output Total 0 500 Balance 1104.005 668.027 235.596 Weight 58.6 kg Intake: IV 399 357 44 0.9 NS Carrier 100 85 20 Meropenem 1 gm In Sodium 100 200 Chloride 0.9% 100 ml @ 200 mls/hr IVPB Q8H [facility] Rx#:[id number] Piperacillin-Tazobactam 3 125 .375 gm In Sodium Chloride 0.9% 100 ml @ 25 mls/hr IVPB Q12HR [facility] Rx #:[id number] art line 74 72 24 Intake, IV Titration 47.005 129.027 13.596 Amount Meropenem 1 gm In Sodium 100 Chloride 0.9% 100 ml @ 200 mls/hr IVPB Q8H [facility] Rx#:[id number] Norepinephrine 32 mg In 7.739 10.758 Sodium Chloride 0.9% 218 ml @ 0.05 MCG/KG/MIN 1. 495 mls/hr IV .Q24H [facility] Rx#:[id number] Propofol 1,000 mg In 39.266 18.269 13.596 Empty Bag 1 bag @ Titrate IV .Q0M [facility] Rx#: [id number] Tube Feeding 508 592 148 Other 150 90 30 Output: Urine 0 0 Other 500 Other: Voiding Method Indwelling Catheter # Bowel Movements 1 1 ABP, PAP, CO, CI - Last Documented Arterial Blood Pressure 117/65 - Exam Patient is more awake, still slightly groggy, does open eyes, and makes eye contact. Patient is hemiparetic on the left side. Patient moves right arm better than the left. She did not cooperate with testing of the lower extremities. Exam limited because of patient being intubated. - Labs CBC & Chem 7: 03/29/19 04:20 03/29/19 04:20 Labs: Abnormal Lab Results - Last 24 Hours (Table) 03/28/19 03/28/19 03/29/19 Range/Units 18:06 23:56 04:20 WBC 18.4 H (3.8-10.6) k/uL RBC 2.29 L (3.80-5.40) m/uL Hgb 7.5 L (11.4-16.0) gm/dL Hct 23.9 L (34.0-46.0) % MCV 104.7 H (80.0-100.0) fL RDW 17.8 H (11.5-15.5) % Plt Count 129 L (150-450) k/uL Neutrophils # 16.9 H (1.3-7.7) k/uL Lymphocytes # 0.4 L (1.0-4.8) k/uL ABG pH (7.35-7.45) ABG pCO2 (35-45) mmHg ABG pO2 (83-108) mmHg ABG HCO3 (21-25) mmol/L ABG Total CO2 (19-24) mmol/L ABG O2 Saturation (94-97) % Sodium (137-145) mmol/L Potassium (3.5-5.1) mmol/L Chloride (98-107) mmol/L BUN (7-17) mg/dL Creatinine (0.52-1.04) mg/dL Glucose (74-99) mg/dL POC Glucose (mg/dL) 134 H 134 H (75-99) mg/dL Calcium (8.4-10.2) mg/dL 03/29/19 03/29/19 03/29/19 Range/Units 04:20 06:04 07:25 WBC (3.8-10.6) k/uL RBC (3.80-5.40) m/uL Hgb (11.4-16.0) gm/dL Hct (34.0-46.0) % MCV (80.0-100.0) fL RDW (11.5-15.5) % Plt Count (150-450) k/uL Neutrophils # (1.3-7.7) k/uL Lymphocytes # (1.0-4.8) k/uL ABG pH 7.51 H (7.35-7.45) ABG pCO2 33 L (35-45) mmHg ABG pO2 145 H (83-108) mmHg ABG HCO3 27 H (21-25) mmol/L ABG Total CO2 28 H (19-24) mmol/L ABG O2 Saturation 98.6 H (94-97) % Sodium 133 L (137-145) mmol/L Potassium 3.4 L (3.5-5.1) mmol/L Chloride 97 L (98-107) mmol/L BUN 46 H (7-17) mg/dL Creatinine 2.83 H (0.52-1.04) mg/dL Glucose 139 H (74-99) mg/dL POC Glucose (mg/dL) 135 H (75-99) mg/dL Calcium 6.6 L (8.4-10.2) mg/dL 03/29/19 Range/Units 11:26 WBC (3.8-10.6) k/uL RBC (3.80-5.40) m/uL Hgb (11.4-16.0) gm/dL Hct (34.0-46.0) % MCV (80.0-100.0) fL RDW (11.5-15.5) % Plt Count (150-450) k/uL Neutrophils # (1.3-7.7) k/uL Lymphocytes # (1.0-4.8) k/uL ABG pH (7.35-7.45) ABG pCO2 (35-45) mmHg ABG pO2 (83-108) mmHg ABG HCO3 (21-25) mmol/L ABG Total CO2 (19-24) mmol/L ABG O2 Saturation (94-97) % Sodium (137-145) mmol/L Potassium (3.5-5.1) mmol/L Chloride (98-107) mmol/L BUN (7-17) mg/dL Creatinine (0.52-1.04) mg/dL Glucose (74-99) mg/dL POC Glucose (mg/dL) 133 H (75-99) mg/dL Calcium (8.4-10.2) mg/dL Microbiology - Last 24 Hours (Table) 03/25/19 18:25 Gram Stain - Preliminary Peritoneal Fluid Body Fluid Culture - Preliminary 03/25/19 11:15 Blood Culture - Preliminary Blood No Growth after 72 hours 03/25/19 11:05 Gram Stain - Final Sputum Sputum Culture - Final Escherichia coli Assessment and Plan Assessment: * Altered mental status, probably due to toxic metabolic encephalopathy. Patient has multifocal pneumonia, renal insufficiency, and anemia, electrolyte imbalance. * Patient with left hemiplegia. Her examination appears to be worse than previous exam. No evidence of new CVA on the current CT head from 03/28/2019. * History of ischemic stroke involving left occipital and left occipital parietal junction 03/09/2019 * Right ICA stenosis 70% per CTA report * Atrial fibrillation. * No history of intracranial hemorrhage. Right cerebellar hypodensity was calcification, not a hemorrhage. * Vascular dementia Plan: * Patient has been started again on Apixaban 2.5 mg twice a day for stroke prevention related to atrial fibrillation. * Patient is also on Plavix 75 mg daily also for stroke prevention related to carotid atherosclerotic disease. * Your medical management.
[2019-03-29] MEDS: MIDODRINE 5 MG TAB PO SCH ×2 (13:13→19:06)
--- NOTE | 2019-03-29 13:16 | P.PN ---
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 Vitas looks stable. However patient had fever of 100.1 on presentation. Labs s how leukocytosis of 20 4.4K, hemoglobin dropped to 8.8, platelets 110. Sodium 132, potassium 4.3, lactic acid is elevated but trending down 3.8 and 3.1. Creatinine 3.6. Liver enzymes mildly elevated with AST at 74 1 ALT 117, troponin is elevated at 2.0. Urine suspicious for infection Patient currently on vancomycin and Zosyn, also she is on normal saline at 100 mL per hour 03/27/2019 Patient remains intubated and on mechanical ventilation, however she still unresponsive, CAT scan of the head is negative. She is already on aspirin and Plavix and Lovenox has been added for DVT prophylaxis. Here sputum culture is growing E. coli and she is being covered by Zosyn and vancomycin. Cardiology evaluation is appreciated most likely patient has non-STEMI and atrial fibrillation however she is not a candidate for anticoagulation as per vice president of talent management evaluation. Ejection fraction is 55-60%. She has no urine output. A stable stroke per pulmonary evaluation. Vitas looks stable with a blood pressure is 117/68. WBC is 22.2. Hemoglobin is 7.5, platelets is 83 Prognosis is still guarded 03/28/2019 Patient remains unresponsive and intubated in the ICU. Vitas looks stable with blood pressure 111/60 and heart rate of 94. Patient is afebrile. Persistent Leukocytosis of 20 5.1K, despite Patient Being on Broad-Spectrum Antibiotics with Zosyn and Vancomycin. Sodium Is 132, Potassium 3.3, Creatinine 3.23 Which Is a Slightly Improving Compared to 5.6 on Admission. Sputum Culture Is Growing E. coli Which Is Sensitive to Zosyn. Repeat Chest X-Ray, Showing Slight Improvement Radiation of the Right Mid Lung While the Remaining Multifocal Opacity Compatible with Multifocal Pneumonia. Metoprolol Was Stopped by Catering Truck Driver and Placed on Amiodarone, Continue with Plavix. Catering Truck Driver Recommended Coronary Angiogram for the Patient. Neurologist Been Consulted for Her Mental Status is not improving. 03/29/2019 Patient remains in the ICU intubated however she started waking up as she follows commands when simply instructed her. Patient undergoing units tried by pulmonary/critical care team. Leukocytosis is improving too 18.4. And creatinine is trending down to 2.83. She still mildly tachycardic but her blood pressure is acceptable at 117/65. Patient is on Eliquis 2.5 mg and Plavix 75 mg. Review of systems: n/a Active Medications Generic Name Dose Route Start Last Admin Trade Name Freq PRN Reason Stop Dose Admin Albuterol/Ipratropium 3 ml 03/25/19 16:00 03/29/19 11:39 Duoneb 0.5 Mg-3 Mg/3 Ml Soln INHALATION 3 ml RT-Q4H [facility] Administration Albuterol/Ipratropium 3 ml 03/25/19 16:44 Duoneb 0.5 Mg-3 Mg/3 Ml Soln INHALATION RT-Q2H PRN Shortness Of Breath Or Wheezing Amiodarone HCl 400 mg 03/28/19 09:00 03/29/19 08:21 Cordarone PO 400 mg BID [facility] Administration Apixaban 2.5 mg 03/28/19 21:00 03/29/19 08:21 Eliquis PO 2.5 mg BID SIOMN Administration Atorvastatin Calcium 80 mg 03/26/19 21:00 03/28/19 20:18 Lipitor PO 80 mg HS SIMON Administration Chlorhexidine Gluconate 15 ml 03/25/19 21:00 03/29/19 08:21 Peridex MUCOUS MEM 15 ml BID [facility] Administration Clopidogrel Bisulfate 75 mg 03/26/19 09:00 03/29/19 08:22 Plavix PO 75 mg DAILY [facility] Administration Darbepoetin Zhou 60 mcg 03/26/19 14:30 03/26/19 15:51 Aranesp SQ 60 mcg Q7D [facility] Administration Hydromorphone HCl 0.5 mg 03/25/19 14:48 Dilaudid IVP Q2HR PRN Pain Scale 4 to 5 Norepinephrine Bitartrate 32 250 mls @ 1.495 mls/hr 03/25/19 16:45 03/29/19 04:40 mg/ Sodium Chloride IV 0 mcg/kg/min .Q24H [facility] 0 mls/hr Titration Protocol 0.05 MCG/KG/MIN Propofol 1,000 mg/ IV Solution 100 mls @ 0 mls/hr 03/25/19 16:45 03/29/19 07:45 IV 0 mcg/kg/min .Q0M [facility] 0 mls/hr Titration Protocol Titrate Peritoneal Dialysis Solution 37.5 g in 2,500 mls @ 0 mls/hr 03/25/19 18:00 03/29/19 11:49 Delflex With 1.5% Dextrose (2,500 Ml) INTRAPERIT 2,500 mls/hr Q6HR [facility] Administration Protocol As Directed Meropenem 500 mg/ Sodium 100 mls @ 200 mls/hr 03/29/19 16:00 Chloride IVPB Q12H [facility] Midodrine 10 mg 03/29/19 12:30 03/29/19 13:13 Proamatine PO Not Given [facility] Naloxone HCl 0.2 mg 03/25/19 14:48 Narcan IV Q2M PRN Opioid Reversal Pantoprazole Sodium 40 mg 03/26/19 09:00 03/29/19 08:22 Protonix IV 40 mg DAILY [facility] Administration Objective - Vital Signs Vital signs: Vital Signs Temp 98 F 03/29/19 08:00 Pulse 115 H 03/29/19 11:55 Resp 17 03/29/19 10:00 BP 103/84 03/29/19 07:00 Pulse Ox 97 03/29/19 10:00 Intake & Output 03/28/19 03/29/19 03/29/19 18:59 06:59 18:59 Intake Total 8023.814 2271.027 235.596 Output Total 0 500 Balance 1104.005 668.027 235.596 Weight 58.6 kg Intake: IV 399 357 44 0.9 NS Carrier 100 85 20 Meropenem 1 gm In Sodium 100 200 Chloride 0.9% 100 ml @ 200 mls/hr IVPB Q8H [facility] Rx#:[id number] Piperacillin-Tazobactam 3 125 .375 gm In Sodium Chloride 0.9% 100 ml @ 25 mls/hr IVPB Q12HR [facility] Rx #:[id number] art line 74 72 24 Intake, IV Titration 47.005 129.027 13.596 Amount Meropenem 1 gm In Sodium 100 Chloride 0.9% 100 ml @ 200 mls/hr IVPB Q8H [facility] Rx#:[id number] Norepinephrine 32 mg In 7.739 10.758 Sodium Chloride 0.9% 218 ml @ 0.05 MCG/KG/MIN 1. 495 mls/hr IV .Q24H [facility] Rx#:[id number] Propofol 1,000 mg In 39.266 18.269 13.596 Empty Bag 1 bag @ Titrate IV .Q0M [facility] Rx#: [id number] Tube Feeding 508 592 148 Other 150 90 30 Output: Urine 0 0 Other 500 Other: Voiding Method Indwelling Catheter # Bowel Movements 1 1 ABP, PAP, CO, CI - Last Documented Arterial Blood Pressure 117/65 - Exam GENERAL: The patient is alert and oriented x3, not in any acute distress. Well developed, well nourished. HEENT: Pupils are round and equally reacting to light. EOMI. No scleral icterus. No conjunctival pallor. Normocephalic, atraumatic. No pharyngeal erythema. No thyromegaly. CARDIOVASCULAR: S1 and S2 present. No murmurs, rubs, or gallops. PULMONARY: Chest is clear to auscultation, no wheezing or crackles. ABDOMEN: Soft, nontender, nondistended, normoactive bowel sounds. No palpable organomegaly. MUSCULOSKELETAL: No joint swelling or deformity. EXTREMITIES: No cyanosis, clubbing, or pedal edema. NEUROLOGICAL: Gross neurological examination did not reveal any focal deficits. SKIN: No rashes. no petechiae. - Labs CBC & Chem 7: 03/29/19 04:20 03/29/19 04:20 Labs: Abnormal Lab Results - Last 24 Hours (Table) 03/28/19 03/28/19 03/29/19 Range/Units 18:06 23:56 04:20 WBC 18.4 H (3.8-10.6) k/uL RBC 2.29 L (3.80-5.40) m/uL Hgb 7.5 L (11.4-16.0) gm/dL Hct 23.9 L (34.0-46.0) % MCV 104.7 H (80.0-100.0) fL RDW 17.8 H (11.5-15.5) % Plt Count 129 L (150-450) k/uL Neutrophils # 16.9 H (1.3-7.7) k/uL Lymphocytes # 0.4 L (1.0-4.8) k/uL ABG pH (7.35-7.45) ABG pCO2 (35-45) mmHg ABG pO2 (83-108) mmHg ABG HCO3 (21-25) mmol/L ABG Total CO2 (19-24) mmol/L ABG O2 Saturation (94-97) % Sodium (137-145) mmol/L Potassium (3.5-5.1) mmol/L Chloride (98-107) mmol/L BUN (7-17) mg/dL Creatinine (0.52-1.04) mg/dL Glucose (74-99) mg/dL POC Glucose (mg/dL) 134 H 134 H (75-99) mg/dL Calcium (8.4-10.2) mg/dL 03/29/19 03/29/19 03/29/19 Range/Units 04:20 06:04 07:25 WBC (3.8-10.6) k/uL RBC (3.80-5.40) m/uL Hgb (11.4-16.0) gm/dL Hct (34.0-46.0) % MCV (80.0-100.0) fL RDW (11.5-15.5) % Plt Count (150-450) k/uL Neutrophils # (1.3-7.7) k/uL Lymphocytes # (1.0-4.8) k/uL ABG pH 7.51 H (7.35-7.45) ABG pCO2 33 L (35-45) mmHg ABG pO2 145 H (83-108) mmHg ABG HCO3 27 H (21-25) mmol/L ABG Total CO2 28 H (19-24) mmol/L ABG O2 Saturation 98.6 H (94-97) % Sodium 133 L (137-145) mmol/L Potassium 3.4 L (3.5-5.1) mmol/L Chloride 97 L (98-107) mmol/L BUN 46 H (7-17) mg/dL Creatinine 2.83 H (0.52-1.04) mg/dL Glucose 139 H (74-99) mg/dL POC Glucose (mg/dL) 135 H (75-99) mg/dL Calcium 6.6 L (8.4-10.2) mg/dL 03/29/19 03/29/19 Range/Units 11:26 12:39 WBC (3.8-10.6) k/uL RBC (3.80-5.40) m/uL Hgb (11.4-16.0) gm/dL Hct (34.0-46.0) % MCV (80.0-100.0) fL RDW (11.5-15.5) % Plt Count (150-450) k/uL Neutrophils # (1.3-7.7) k/uL Lymphocytes # (1.0-4.8) k/uL ABG pH 7.54 H (7.35-7.45) ABG pCO2 34 L (35-45) mmHg ABG pO2 146 H (83-108) mmHg ABG HCO3 29 H (21-25) mmol/L ABG Total CO2 30 H (19-24) mmol/L ABG O2 Saturation 98.7 H (94-97) % Sodium (137-145) mmol/L Potassium (3.5-5.1) mmol/L Chloride (98-107) mmol/L BUN (7-17) mg/dL Creatinine (0.52-1.04) mg/dL Glucose (74-99) mg/dL POC Glucose (mg/dL) 133 H (75-99) mg/dL Calcium (8.4-10.2) mg/dL Microbiology - Last 24 Hours (Table) 03/25/19 18:25 Gram Stain - Preliminary Peritoneal Fluid Body Fluid Culture - Preliminary 03/25/19 11:15 Blood Culture - Preliminary Blood No Growth after 72 hours 03/25/19 11:05 Gram Stain - Final Sputum Sputum Culture - Final Escherichia coli Assessment and Plan Assessment: sepsis secondary to urinary tract infection and right lung multifocal pneumonia suspicious for aspiration versus hospital-acquired pneumonia. Patient has SIRS with leukocytosis and fever on presentation Acute hypoxic respiratory failure needing mechanical ventilation and intubation Unresponsiveness, with negative CAT scan of the head. Possible stroke in view of her atrial fibrillation. Patient is already on aspirin Plavix and Lovenox been added Bicytopenia with low hemoglobin and thrombocytopenia elevated lactic acid None STEMI with Elevated troponin. Evaluated by vice president of talent management and found not a candidate for anticoagulation. Mildly elevated liver enzymes Chronic atrial fibrillation Congestive heart failure End-stage renal disease on peritoneal dialysis Chronic leukocytosis COPD/asthma History of CVA/TIA, with history of hemorrhagic cerebellar stroke requiring surgical intervention Dimension GERD Hypertension History arthritis Rheumatoid arthritis Hypothyroidism History of right ICA stenosis about 70% Plan: This is a pleasant 74 years old female who presents because of severe sepsis secondary to pneumonia. Continue with antibiotics and IV fluids. Follow-up recommendation from pulmonary/critical care service. Monitor hemoglobin and platelet count as well as WBC. Continue with antibiotics and follow-up culture results. Consult neurologist. Continue with Plavix and vice president of talent management recommended coronary angiogram. Discontinue metoprolol and con tinue with amiodarone Labs and medication were reviewed.. Continue same treatment. Continue with s ymptomatic treatment. Resume home medication. Monitor lytes and vitals. DVT and GI prophylaxis. Further recommendations of the clinical course of the patient DVT prophylaxis: Subcutaneous Lovenox GI Prophylaxis:Protonix Prognosis is guarded As per staff still wants patient for code although of her multiple comorbidity and guarded prognosis
--- NOTE | 2019-03-29 14:08 | PN ---
PROGRESS NOTE Patient is seen for followup for end-stage renal disease. She is currently on the vent, although was on CPAP trial. Patient needed Levophed overnight. However, she is currently off of Levophed. She remains with 1.5% dialysis exchanges, tolerating her treatment well with occasional hypotension during dialysis. She has not had significant ultrafiltration with the exchanges. PHYSICAL EXAMINATION: This morning blood pressure was 115/62, heart rate of 115 per minute, she is afebrile. Examination of the heart, S1, S2. Examination of the lungs, decreased breath sounds bases. Abdomen is soft, nontender. Examination of the lower extremities shows no evidence of edema. STOCK BROKER exam shows patient is not moving left arm and leg. LABS: Show sodium 133, potassium 3.4, BUN 46, creatinine 2.8. ASSESSMENT: 1. End-stage renal disease, on peritoneal dialysis, continue current PD exchanges. Add midodrine if blood pressure remains low. 2. Hypokalemia associated with peritoneal dialysis, maintained on supplementation. 3. Ventilator-dependent respiratory failure, undergoing weaning trial. 4. Cerebrovascular accident with left hemiparesis. 5. History of cerebellar hemorrhagic stroke as well. 6. Anemia of chronic disease, maintained on Aranesp. No active bleeding noted. 7. Sepsis most likely from pneumonia, maintained on antibiotics. 8. History of atrial fibrillation with controlled ventricular response. PLAN: Add midodrine if blood pressure continues to remain low and continue to replace potassium. Overall prognosis is guarded. MMODL / IJN: [id number] /
[2019-03-29] MEDS: MEROPENEM 500 MG in SODIUM CHLORIDE 0.9% 100 ML IVPB SCH (15:51)
[2019-03-29 18:15] LABS: Glucose,Whole Blood 77 mg/dL (75-99)
[2019-03-29] MEDS: ATORVASTATIN 80 MG TAB PO SCH (20:49)
[2019-03-30 00:11] LABS: Glucose,Whole Blood 95 mg/dL (75-99)
[2019-03-30] MEDS: DIALYSIS (PERIT 1.5%) 2,500 ML 37.5 G/2,500 ML BAG INTRAPERIT SCH ×2 (00:21→06:18)
[2019-03-30] MEDS: IPRATROPIUM-ALBUTEROL 3 ML NEB INHALATION SCH ×7 (00:32→23:04)
[2019-03-30] MEDS: MEROPENEM 500 MG in SODIUM CHLORIDE 0.9% 100 ML IVPB SCH ×2 (04:04→16:44)
[2019-03-30 05:34] LABS: Glucose,Whole Blood 96 mg/dL (75-99)
[2019-03-30 05:42] LABS: Anisocytosis Slight; Basophils # (A) 0.1 k/uL (0-0.2); Basophils % (A) 1 %; Eosinophils % (A) 0 %; HCT 24.6 % (34.0-46.0); HGB 7.6 gm/dL (11.4-16.0); Hypochromasia Slight; Lymphocytes # (A) 0.3 k/uL (1.0-4.8); Lymphocytes % (A) 2 %; MCH 32.2 pg (25.0-35.0); MCHC 31.1 g/dL (31.0-37.0); MCV 103.6 fL (80.0-100.0); Macrocytosis Moderate; Mean Platelet Volume 8.2; Monocytes # (A) 0.6 k/uL (0-1.0); Monocytes % (A) 4 %; Neutrophils # (A) 13.1 k/uL (1.3-7.7); Neutrophils % (A) 91 %; Platelet Count 129 k/uL (150-450); RBC 2.38 m/uL (3.80-5.40); RDW 17.7 % (11.5-15.5); WBC 14.4 k/uL (3.8-10.6)
[2019-03-30 05:45] LABS: Glucose,Whole Blood 96 mg/dL (75-99)
[2019-03-30 05:53] LABS: Potassium 3.7 mmol/L (3.5-5.1)
[2019-03-30] MEDS: MIDODRINE 5 MG TAB PO SCH ×3 (06:37→18:42)
--- NOTE | 2019-03-30 07:17 | XR ---
EXAMINATION TYPE: XR chest 1V portable DATE OF EXAM: 03/30/2019 COMPARISON: 03/29/2019 HISTORY: Extubation TECHNIQUE: Single frontal view of the chest is obtained. FINDINGS: The patient has been extubated and there is removal of the enteric tube. Right subclavian approach PICC remains. Multifocal right lung opacities are similar. Interstitial prominence on the le ft without focal consolidation. Advanced atherosclerosis and diffuse osseous demineralization seen. C ardia mediastinal silhouette is again enlarged. IMPRESSION: Stable multifocal right sided opacities. Interval extubation and removal of the enteric tube.
--- NOTE | 2019-03-30 07:27 | P.PN ---
Subjective Progress Note Date: 03/30/19 Principal diagnosis: Acute non-ST patient myocardial infarction This is a pleasant 73-year-old female patient with a past medical history significant for long-standing persistent atrial fibrillation, end stage renal disease on peritoneal dialysis, chronic obstructive pulmonary disease, as well as multiple comorbid conditions including carotid disease, was admitted to the hospital with acute hypoxic respiratory failure secondary to multilobar pneumonia. The patient was intubated and currently she is on mechanical ventilation. We involved in the care of the patient for the management of atrial fibrillation as well as abnormal troponin which was above 2. We recommended conservative medical approach. Initially the patient was weaned off the vasopressors but she was started back on vasopressors yesterday. The limited echocardiogram was performed and revealed normal LV function with EF around 50-55%. On follow-up with the patient today, March 302018, she was extubated yesterday. She continues to be in atrial fibrillation with slightly uncontrolled heart rate but the pressure has improved. Because of that I am going to start the patient back on metoprolol 25 mg by mouth twice a day. She is not on any vasopressors at this point. Beside that I will continue the amiodarone by mouth. Continue oral anticoagulation. And follow-up with the patient. Objective - Vital Signs Vital signs: Vital Signs Temp 97.3 F L 03/30/19 06:21 Pulse 112 H 03/30/19 07:00 Resp 16 03/30/19 07:00 BP 108/81 03/30/19 07:00 Pulse Ox 100 03/30/19 06:21 Intake & Output 03/29/19 03/30/19 03/30/19 18:59 06:59 18:59 Intake Total 464.596 132 11 Balance 464.596 132 11 Weight 57 kg Intake: IV 132 132 11 0.9 NS Carrier 60 60 5 art line 72 72 6 Intake, IV Titration 13.596 Amount Propofol 1,000 mg In 13.596 Empty Bag 1 bag @ Titrate IV .Q0M [facility] Rx#: [id number] Tube Feeding 259 Other 60 Other: # Bowel Movements 1 ABP, PAP, CO, CI - Last Documented Arterial Blood Pressure 147/83 - Constitutional General appearance: Present: no acute distress - Respiratory Respiratory: bilateral: rales - Cardiovascular Rhythm: irregularly irregular Heart sounds: normal: S1, S2 - Labs CBC & Chem 7: 03/30/19 05:10 03/30/19 05:10 Labs: Abnormal Lab Results - Last 24 Hours (Table) 03/29/19 03/29/19 03/29/19 Range/Units 07:25 11:26 12:39 WBC (3.8-10.6) k/uL RBC (3.80-5.40) m/uL Hgb (11.4-16.0) gm/dL Hct (34.0-46.0) % MCV (80.0-100.0) fL RDW (11.5-15.5) % Plt Count (150-450) k/uL Neutrophils # (1.3-7.7) k/uL Lymphocytes # (1.0-4.8) k/uL ABG pH 7.51 H 7.54 H (7.35-7.45) ABG pCO2 33 L 34 L (35-45) mmHg ABG pO2 145 H 146 H (83-108) mmHg ABG HCO3 27 H 29 H (21-25) mmol/L ABG Total CO2 28 H 30 H (19-24) mmol/L ABG O2 Saturation 98.6 H 98.7 H (94-97) % Sodium (137-145) mmol/L BUN (7-17) mg/dL Creatinine (0.52-1.04) mg/dL POC Glucose (mg/dL) 133 H (75-99) mg/dL Calcium (8.4-10.2) mg/dL 03/30/19 03/30/19 Range/Units 05:10 05:10 WBC 14.4 H (3.8-10.6) k/uL RBC 2.38 L (3.80-5.40) m/uL Hgb 7.6 L (11.4-16.0) gm/dL Hct 24.6 L (34.0-46.0) % MCV 103.6 H (80.0-100.0) fL RDW 17.7 H (11.5-15.5) % Plt Count 129 L (150-450) k/uL Neutrophils # 13.1 H (1.3-7.7) k/uL Lymphocytes # 0.3 L (1.0-4.8) k/uL ABG pH (7.35-7.45) ABG pCO2 (35-45) mmHg ABG pO2 (83-108) mmHg ABG HCO3 (21-25) mmol/L ABG Total CO2 (19-24) mmol/L ABG O2 Saturation (94-97) % Sodium 136 L (137-145) mmol/L BUN 46 H (7-17) mg/dL Creatinine 2.94 H (0.52-1.04) mg/dL POC Glucose (mg/dL) (75-99) mg/dL Calcium 7.0 L (8.4-10.2) mg/dL Microbiology - Last 24 Hours (Table) 03/25/19 18:25 Gram Stain - Final Peritoneal Fluid Body Fluid Culture - Final 03/25/19 11:15 Blood Culture - Preliminary Blood No Growth after 96 hours Assessment and Plan Assessment: Assessment #1 multilobe pneumonia #2 sepsis secondary to the above #3 acute non-ST deviation myocardial infarction #4 long-standing persistent atrial fibrillation #5 chronic obstructive pulmonary disease #6 carotid disease Plan #1 continue the current medical regimen including amiodarone by mouth #2 continue oral anticoagulation in combination was antiplatelet with Plavix #3 restart the patient back on metoprolol at 25 mg by mouth twice a day #4 consider coronary angiogram
[2019-03-30] MEDS: AMIODARONE 200 MG TAB PO SCH ×2 (08:52→20:15)
[2019-03-30] MEDS: PANTOPRAZOLE 40 MG/10 ML VIAL IV SCH (08:52)
[2019-03-30] MEDS: METOPROLOL TARTRATE 25 MG TAB PO SCH ×2 (08:52→20:14)
[2019-03-30] MEDS: CLOPIDOGREL 75 MG TAB PO SCH (08:52)
[2019-03-30] MEDS: APIXABAN 2.5 MG TABLET PO SCH ×2 (08:52→20:14)
--- NOTE | 2019-03-30 11:06 | PN ---
PROGRESS NOTE Patient is seen for followup for end-stage renal disease. She was extubated yesterday. The patient is comfortable. However, she has been mildly short of breath. She had been on BiPAP initially, but this was now discontinued. She is not eating much. We are getting about 250 to 500 mL of extra fluid with her dialysis. Blood pressure is actually running on the higher side. Patient has not needed the midodrine. PHYSICAL EXAMINATION: On examination today, blood pressure was 128/93, heart rate 128 per minute. She is afebrile. EXAMINATION OF THE HEART: S1, S2. EXAMINATION OF THE LUNGS: Decreased breath sounds at the bases. Bilateral basal crackles are heard. Abdomen is soft, nontender. Examination of lower extremities shows no significant edema. LABS: Labs show sodium 136, potassium 3.7, BUN 46, creatinine 2.9. Hemoglobin 7.6 g/dL. ASSESSMENT: 1. End-stage renal disease, on peritoneal dialysis. 2. Ventilator-dependent respiratory failure, status post extubation. 3. Volume overload. We will increase the dialysis to 2.5% solution. 4. , partly volume sensitive. 5. Anemia of chronic disease. 6. Cerebrovascular accident with left hemiparesis. 7. Atrial fibrillation with heart rate staying slightly on the lower side. Restarted on beta blockers. PLAN: Change dialysis to 2.5% solution q.6 hours. Continue to encourage increased oral intake and resume antihypertensive medication if blood pressure remains elevated, particularly ZO inhibitors. MMODL / IJN: [id number] /
[2019-03-30] MEDS: DIALYSIS (PERIT 2.5%) 2,500 ML 62.5 G/2,500 ML BAG INTRAPERIT SCH ×3 (11:32→23:51)
--- NOTE | 2019-03-30 11:55 | P.PN ---
Subjective Progress Note Date: 03/30/19 Principal diagnosis: Acute hypoxic respiratory failure secondary to multilobar pneumonia, possibly hospital acquired. Could also be aspiration pneumonia. This is a 71-year-old female patient, with multiple medical problems and comorbidities. The patient came into the emergency department today with complaints of shortness of breath. She was very weak and she was in respiratory failure. The patient was intubated in the emergency department as the patient was diagnosed having a multilobar right lung pneumonia. The patient was brought into the intensive care unit intubated on a mechanical ventilator. She has already received a dose of cefepime. This patient has extensive history. 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 Subsequently the patient presented back into the hospital for difficulties with vision and the patient was diagnosed having an acute to subacute ischemic stroke involving the left occipital lobe and the left occipitoparietal junction. 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 She was also found to have a right ICA stenosis just above 70%. She has vascular dementia. In addition to that she has end- stage renal disease and she is on peritoneal dialysis. She suffers from chronic atrial fibrillation and anticoagulants. She has hypertension, COPD with a baseline FEV1 of 42% of predicted, diastolic heart failure, hypertension, and rheumatoid arthritis in addition to chronic anemia and hyperlipidemia. The patient has had multiple hospitalizations most recent of which was approximately 10 days ago. Currently she is sedated with propofol and she is calm and comfortable. She has received a total of 2 L of IV fluids. She is currently on assist control mode of ventilation at the rate of 16 him a tidal volume of 450, FiO2 of 50% with a PEEP of 5. She is in atrial fibrillation. She is on norepinephrine infusion running at 0.075 g per KG per minute. She has a triple-lumen catheter in the right subclavian. She had an abnormal UA with a white cell count of more than 182 with many bacteria and white cell clumps. Her white cell count is 22.8. Her creatinine is at 5.6 with a mean of 63. The patient's sodium is at 130. Lactic acid level is at 2.6. The patient's echocardiogram showed ejection fraction of 50-55%. Today's evaluation of 03/26/2019 I'm seeing this patient for a follow-up. The patient remains sedated with propofol which is currently running at 25 g per KG per minute. She is was sedated and she is calm and comfortable. She remains on a mechanical ventilator. She is an assist-control mode at the rate of 40 with a tidal volume of 450 and FiO2 of 40% with a PEEP of 5. Her chest x-ray showed a right upper and right perihilar pneumonia and today's chest x-ray shows improvement in the right lower lobe pneumonia and she still has a consolidation in the right upper lobe. ET tube is in a good location. She has a triple-lumen catheter in place. No significant orotracheal secretions and cultures are still pending for now. Meanwhile, the patient was covered with a combination of Zosyn and vancomycin. Her blood pressures improved. She remains in atrial fibrillation. On today's evaluation, she was weaned off the Levothroid earlier this morning and levo fed was discontinued probably 30 minutes ago. She does not make much urine. She undergoes peritoneal dialysis. Peritoneal fluid was also sent for cultures. The patient is receiving IV fluid rate of 100 mL an hour. She is afebrile. White cell count remains elevated. There has been drop in hemoglobin down to 8.8, however there is no signs of any acute bleeding. BUN is at 54, creatinine is at 3.6, lactic acid level is down to 3.1. The blood gases from today showed a pH of 7.32 with a pCO2 of 34 and pO2 of 191 and this was done and FiO2 of 50% and accordingly the FiO2 has been drop down to 40%. On 03/27/2019, I'm seeing this patient for a follow-up. The patient had a very busy day yesterday where she was taken off the sedation and mental status was monitored for a total of 3 hours while her being off the propofol. We will check in on her periodically in with did not feel that the patient was alert nor she regained back her alertness during this 3 hour sedation holiday. Upon stimulation, she would bite on the tube and based on that day tube bite block was inserted. No seizure activity was noted. I sent this patient for a CAT scan of the brain and the CAT scan essentially showed old findings which included cerebral atrophy, an old cortical infarct measuring 3 x 2 cm in size in the right was treated frontal lobe. There was also periventricular white matter disease and 4 cm hypodense area in the left occipital lobe related to old infarct. There was no evidence of any acute bleeding. This morning, the patient remains sedated with propofol which is currently running at 30 g per KG per minute. She is calm and comfortable. She withdraws to deep painful stimulation. She remains in atrial fibrillation. Rate is controlled for now. She is on no anticoagulation based on the fact that the patient has had any sensory cerebellar bleed. She remains on a mechanical ventilator on assist control mode at the rate of 14 with a tidal volume of 450 and the rate of 14 with an FiO2 of 40% and a PEEP of 5. The blood gases from today showed a pH of 7.47 with a pCO2 of 31 and a pO2 of 150 and this was on FiO2 of 40% and a chest x-ray from today showed persistent consolidation of the right upper lobe and there was a right upper lobe airspace disease in addition to development of some left-sided airspace disease. The patient's sputum is showing gram-negative bacillus. Final cultures and sensitivities are still pending. Meanwhile, the p atient is still on a combination of Zosyn and vancomycin. No significant orotracheal secretions. No pressors. The patient undergoing periodic peritoneal dialysis. We have noted a drop in hemoglobin down to 7.5. She is on Aranesp. No signs of any external bleeding at this point in time. She remains nothing by mouth. Patient was reevaluated on 03/28/2019, remains in the intensive care unit, intubated, mechanically ventilated. Her ventilator settings are assist control rate of 14 tidal volume 450 FiO2 40% and PEEP of 5. Patient is on propofol at 25 mcg/kg/m, and she is on norepinephrine at 0.01 mcg/kg/m. I plan to give the patient is sedation holiday and addressed mental status today. Apparently she was biting on the tube yesterday as per Dr. Parmar's note. Patient is presently calm, withdraws to deep painful stimulation. And she remains in atrial fibrillation. But rate seems to be fairly well controlled. Patient remains on periodic peritoneal dialysis. ABG today showed a pO2 of 171 pCO2 of 35 pH of 7.48, hence FiO2 was cut down to 35%. WBC count is 25.1 hemoglobin is 7.7 platelets are 96,000. Electrolytes showed low potassium of 3.3 BUN is 44 creatinine 3.13. Chest x-ray showed multifocal opacities compatible with multifocal pneumonia and minimal left basilar atelectasis. Sputum cultures have been positive mostly for E. coli./ESBL, hence we'll switch the patient to Merrem. Reevaluated today on 03/29/2019, patient remains in the ICU, intubated, mechanically ventilated. Her ventilator settings today are assist control rate of 14 tidal volume of 450 FiO2 35% and PEEP of 5. No drips at present, patient is only on 0.9 normal saline. She is off pressors. Remains on antibiotics in the form of Merrem. Chest x-ray continues to show significant bilateral airspace disease. Underlying neoplasm in the right upper lobe is not entirely ruled out. ABG today showed a pO2 of 145 pCO2 of 33 pH of 7.51. CBC showed leukocytosis with WBC count of 18.4 hemoglobin is 7.5. Basic metabolic profile is normal potassium is a bit low at 3.4 BUN is 46 creatinine is 2.83, steadily improving compared to creatinine of 5.60 on presentation. This was on 03/25/2019. Patient is now off sedatives and narcotics, she is arousable, opens her eyes, follows very simple instructions like squeezing hands and wiggling toes. Does not maintain a good eye contact. Patient was reevaluated today on 03/30/2019, patient was extubated yesterday uneventfully. She had basically successful extubation, patient is on 2 L nasal cannula. Her overall pulmonary status seems to be improving. However her mental status is questionable. Patient keeps repeating the same words over and over, and she does not follow while all simple instructions. She does wiggle her toes, she seems to have some left upper extremity weakness, she remains in atrial fibrillation and that being addressed by cardiology. She is on oral amiodarone. She is not requiring any vasopressors at this point. Labs were reviewed, WBC is 14.4 hemoglobin is 7.6 electrolytes are normal BUN is 46 creatinine is 2.94. Basically about the same as it was yesterday. Slightly worse her baseline creatinine on admission was 5.6 Objective - Vital Signs Vital signs: Vital Signs Temp 97.4 F L 03/30/19 08:00 Pulse 107 H 03/30/19 11:28 Resp 21 03/30/19 09:00 BP 128/93 03/30/19 09:00 Pulse Ox 100 03/30/19 09:00 Intake & Output 03/29/19 03/30/19 03/30/19 18:59 06:59 18:59 Intake Total 464.596 132 27 Output Total 0 Balance 464.596 132 27 Weight 57 kg 57 kg Intake: IV 132 132 27 0.9 NS Carrier 60 60 15 art line 72 72 12 Intake, IV Titration 13.596 Amount Propofol 1,000 mg In 13.596 Empty Bag 1 bag @ Titrate IV .Q0M [facility] Rx#: [id number] Tube Feeding 259 Other 60 Output: Urine 0 Other: # Bowel Movements 1 1 ABP, PAP, CO, CI - Last Documented Arterial Blood Pressure 137/75 - Exam Physical Exam: Revealed a 73-year-old female, on 2 L nasal cannula, in no form of respiratory distress. Head: Atraumatic, normocephalic. HEENT:[Neck is supple.] [No neck masses.] [No thyromegaly.] [No JVD.] PERRLA, EOMI, moist mucous membranes, Chest: [Crackles and rhonchi noted bilaterally, symmetrical chest expansion noted..] Cardiac Exam: [Irregular irregular rhythm Normal S1 and S2, no S3 gallop, no mu rmur.] Abdomen: [Soft, nontender, no megaly, no rebound, no guarding, normal bowel sounds.] Peritoneal catheter is noted. Unremarkable. Extremities: [No clubbing, no edema, no cyanosis.] Good pulses bilaterally. Atrophy of muscles noted bilaterally. Neurological Exam: Patient is awake, follows very minimal simple instructions, seems to ignore her left upper extremity, possible left-sided hemiplegia. keeps repeating the same words over and over again. Supposedly that's about her baseline mental status prior to this presentation. Psychiatric: Blunted affect, depressed mood, questionable mental status. Skin: No rashes. Lymphatics: No lymphadenopathy. - Labs CBC & Chem 7: 03/30/19 05:10 03/30/19 05:10 Labs: Abnormal Lab Results - Last 24 Hours (Table) 03/29/19 03/30/19 03/30/19 Range/Units 12:39 05:10 05:10 WBC 14.4 H (3.8-10.6) k/uL RBC 2.38 L (3.80-5.40) m/uL Hgb 7.6 L (11.4-16.0) gm/dL Hct 24.6 L (34.0-46.0) % MCV 103.6 H (80.0-100.0) fL RDW 17.7 H (11.5-15.5) % Plt Count 129 L (150-450) k/uL Neutrophils # 13.1 H (1.3-7.7) k/uL Lymphocytes # 0.3 L (1.0-4.8) k/uL ABG pH 7.54 H (7.35-7.45) ABG pCO2 34 L (35-45) mmHg ABG pO2 146 H (83-108) mmHg ABG HCO3 29 H (21-25) mmol/L ABG Total CO2 30 H (19-24) mmol/L ABG O2 Saturation 98.7 H (94-97) % Sodium 136 L (137-145) mmol/L BUN 46 H (7-17) mg/dL Creatinine 2.94 H (0.52-1.04) mg/dL Calcium 7.0 L (8.4-10.2) mg/dL Microbiology - Last 24 Hours (Table) 03/25/19 11:05 Gram Stain - Final Sputum Sputum Culture - Final Escherichia coli 03/25/19 18:25 Gram Stain - Final Peritoneal Fluid Body Fluid Culture - Final 03/25/19 11:15 Blood Culture - Preliminary Blood No Growth after 96 hours Assessment and Plan Assessment: Impression: 1 acute on chronic hypoxic respiratory failure secondary to multilobar pneumonia secondary to ESBL E. coli. And secondary to underlying COPD 2 acute sepsis and septic shock, resolved. 3 end-stage renal disease, patient is on peritoneal dialysis 4 acute non-ST elevation myocardial infarction 5 severe COPD FEV1 in the range of 42% of predicted. 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 15 successful extubation on 03/29/2019. Recommendation: Continue to observe the patient in the intensive care unit. Continue antibiotics and bronchodilators. Discontinue all narcotics and sedatives. Address swallowing, patient was seen by speech pathology and will likely start oral feeding in the next 24 hours. Continue GI and DVT prophylaxis. Patient will definitely needs placement in ECF considering her overall neurological status. Long-term prognosis remains extremely poor and guarded. We will continue to follow. Time with Patient: Less than 30
[2019-03-30 12:01] LABS: Glucose,Whole Blood 130 mg/dL (75-99)
--- NOTE | 2019-03-30 15:31 | P.PN ---
Subjective Progress Note Date: 03/30/19 Patient extubated, much more awake, appears obviously depressed. Patient offers no complaints. Objective - Vital Signs Vital signs: Vital Signs Temp 98.2 F 03/30/19 12:00 Pulse 109 H 03/30/19 15:13 Resp 40 H 03/30/19 15:00 BP 85/54 03/30/19 15:00 Pulse Ox 98 03/30/19 13:00 Intake & Output 03/29/19 03/30/19 03/30/19 18:59 06:59 18:59 Intake Total 464.596 132 81 Output Total 0 Balance 464.596 132 81 Weight 57 kg 57 kg Intake: IV 132 132 81 0.9 NS Carrier 60 60 45 art line 72 72 36 Intake, IV Titration 13.596 Amount Propofol 1,000 mg In 13.596 Empty Bag 1 bag @ Titrate IV .Q0M [facility] Rx#: [id number] Tube Feeding 259 Other 60 Output: Urine 0 Other: # Bowel Movements 1 1 ABP, PAP, CO, CI - Last Documented Arterial Blood Pressure 104/49 - Exam Patient is more awake, more alert, makes eye contact. Patient is hemiparetic on the left side. Patient moves right arm better than the left. She did not cooperate with testing of the lower extremities. Exam limited because of patient noncooperation. Patient states that her vision has not improved. - Labs CBC & Chem 7: 03/30/19 05:10 03/30/19 05:10 Labs: Abnormal Lab Results - Last 24 Hours (Table) 03/30/19 03/30/19 03/30/19 Range/Units 05:10 05:10 11:50 WBC 14.4 H (3.8-10.6) k/uL RBC 2.38 L (3.80-5.40) m/uL Hgb 7.6 L (11.4-16.0) gm/dL Hct 24.6 L (34.0-46.0) % MCV 103.6 H (80.0-100.0) fL RDW 17.7 H (11.5-15.5) % Plt Count 129 L (150-450) k/uL Neutrophils # 13.1 H (1.3-7.7) k/uL Lymphocytes # 0.3 L (1.0-4.8) k/uL Sodium 136 L (137-145) mmol/L BUN 46 H (7-17) mg/dL Creatinine 2.94 H (0.52-1.04) mg/dL POC Glucose (mg/dL) 130 H (75-99) mg/dL Calcium 7.0 L (8.4-10.2) mg/dL Microbiology - Last 24 Hours (Table) 03/25/19 11:15 Blood Culture - Preliminary Blood No Growth after 120 hours 03/25/19 11:05 Gram Stain - Final Sputum Sputum Culture - Final Escherichia coli 03/25/19 18:25 Gram Stain - Final Peritoneal Fluid Body Fluid Culture - Final Assessment and Plan Assessment: * Altered mental status, probably due to toxic metabolic encephalopathy. [place] has multifocal pneumonia, renal insufficiency, and anemia, electrolyte imbalance. * Patient with left hemiplegia. No evidence of new CVA on the current CT head from 03/28/2019. * History of ischemic stroke involving left occipital and left occipital parietal junction 03/09/2019 * Right ICA stenosis 70% per CTA report * Atrial fibrillation. * No history of intracranial hemorrhage. Right cerebellar hypodensity was calcification, not a hemorrhage. * Vascular dementia Plan: * Patient has been started again on Apixaban 2.5 mg twice a day for stroke prevention related to atrial fibrillation. * Patient is also on Plavix 75 mg daily also for stroke prevention related to carotid atherosclerotic disease. * Your medical management. * We will sign off. Please call neurology if any concerns.
[2019-03-30] MEDS: NOREPINEPHRINE 32 MG in SODIUM CHLORIDE 0.9% 218 ML IV SCH ×2 (16:47→23:26)
--- NOTE | 2019-03-30 17:44 | P.PN ---
Progress Note - Text Progress Note Date: 03/30/19 Chief Complaint: Short of breath History of presenting complaint: This is a 73-year-old patient with extensive medical history as chronic stable medical conditions include COPD, end-stage kidney disease on peritoneal dialysis, hypertensive heart disease, proximal atrial fibrillation, chronic rheumatoid arthritis, hyperlipidemia, mineral bone disease from chronic kidney disease, anemia of chronic kidney disease, secondary pulmonary hypertension, lateral chronic renal artery stenosis, chronic congestive heart failure from diastolic dysfunction EF 55-60%. Patient also had acute intraparenchymal hemorrhage in the right mid cerebral hemisphere on February 03 requiring transfer to [facility],. Patientis currently a resident of [facility] [place]. Patient was recently the hospital from March 08 through March 11. Presented with unable to see. Computed tomography scan of the brain did confirm a acute left occipital lobe and acute occipitoparietal junction infarct. Patient presents from the [facility]. Increasing short of breath. As per the patient oral intake for last couple of days at gone down. Feeling more and more tired. Diagnosed pneumonia in the ER. Probably right side. Went into respiratory distress she had to be intubated. Admitted to the ICU. Patient was extubated on March 29. She had been on pressors. IV antibiotics. Has remained in atrial fibrillation with a variable rate. Blood pressures been fluctuating. Today-in the ICU. Off any drips. Getting peritoneal dialysis. Blood pressures has been up and down. Somewhat delirious. Not really following commands. Review of systems cannot be done. Patient delirious Active Medications Albuterol/Ipratropium (Duoneb 0.5 Mg-3 Mg/3 Ml Soln) 3 ml INHALATION RT-Q4H [facility] Last Admin: 03/30/19 15:12 Dose: 3 ml Documented by: Albuterol/Ipratropium (Duoneb 0.5 Mg-3 Mg/3 Ml Soln) 3 ml INHALATION RT-Q2H PRN PRN Reason: Shortness Of Breath Or Wheezing Amiodarone HCl (Cordarone) 400 mg PO BID [facility] Last Admin: 03/30/19 08:52 Dose: 400 mg Documented by: Apixaban (Eliquis) 2.5 mg PO BID [facility] Last Admin: 03/30/19 08:52 Dose: 2.5 mg Documented by: Atorvastatin Calcium (Lipitor) 80 mg PO HS [facility] Last Admin: 03/29/19 20:49 Dose: 80 mg Documented by: Clopidogrel Bisulfate (Plavix) 75 mg PO DAILY [facility] Last Admin: 03/30/19 08:52 Dose: 75 mg Documented by: Darbepoetin Zhou (Aranesp) 60 mcg SQ Q7D [facility] Last Admin: 03/26/19 15:51 Dose: 60 mcg Documented by: Hydromorphone HCl (Dilaudid) 0.5 mg IVP Q2HR PRN PRN Reason: Pain Scale 4 to 5 Norepinephrine Bitartrate 32 (mg/ Sodium Chloride) 250 mls @ 1.495 mls/hr IV .Q24H [facility]; Protocol Last Admin: 03/30/19 16:47 Dose: Not Given Documented by: Propofol 1,000 mg/ IV Solution 100 mls @ 0 mls/hr IV .Q0M [facility]; Protocol Last Titration: 03/29/19 07:45 Dose: 0 mcg/kg/min, 0 mls/hr Documented by: Meropenem 500 mg/ Sodium (Chloride) 100 mls @ 200 mls/hr IVPB Q12H [facility] Last Admin: 03/30/19 16:44 Dose: 200 mls/hr Documented by: Peritoneal Dialysis Solution (Delflex With 2.5% Dextrose (2,500 Ml)) 62.5 g in 2,500 mls @ 0 mls/hr INTRAPERIT Q6HR [facility]; Protocol Last Admin: 03/30/19 11:32 Dose: 2,500 mls/hr Documented by: Metoprolol Tartrate (Lopressor) 25 mg PO BID [facility] Last Admin: 03/30/19 08:52 Dose: 25 mg Documented by: Midodrine (Proamatine) 10 mg PO AC-TID [facility] Last Admin: 03/30/19 15:31 Dose: Not Given Documented by: Naloxone HCl (Narcan) 0.2 mg IV Q2M PRN PRN Reason: Opioid Reversal Pantoprazole Sodium (Protonix) 40 mg IV DAILY [facility] Last Admin: 03/30/19 08:52 Dose: 40 mg Documented by: Physical examination: VITAL SIGNS: Afebrile, 113, 30, 104/72, 98% on 2 L GENERAL: Laying in bed, lethargic but arousable. Sometimes will speak out words EYES: Pupils equal. Conjunctiva normal. HEENT: External appearance of nose and ears normal, oral cavity grossly normal. NECK: JVD unable to assess; masses not palpable. HEART: Heart sounds irregular; no edema. LUNGS: Respiratory rate increased; decreased breath sound. ABDOMEN: Soft, PT catheter in place, nontender, liver spleen not palpable, no masses palpable. PSYCH: Patient appears delirious NEUROLOGICAL: Pupils equal, spontaneous movement of limbs. Not really following commands. INVESTIGATIONS, reviewed in the clinical context: White count 14.4 hemoglobin 7.6 platelets 129 progression 3.7 bun 46 creatinine 2.94 Chest x-ray film personally reviewed by [id number] infiltrates Previous testing White count 22.8 hemoglobin 11 sodium 1:30 progression 5.1 bun 63 creatinine 5.6 Troponin I 2.0 albumin 2.7 EKG tracing personally reviewed by me-shows diffuse ST segment changes Chest x-ray film personally reviewed by me-diffuse right-sided infiltrates Computed tomography scan brain-old infarct in the right frontal lobe and left occipital lobe extensive background nonspecific white matter changes. No acute otherwise. Sputum showing E. coli, blood culture, negative. Peritoneal fluid, negative 2-D echo-EF 55-60% Assessment: -Right-sided multilobar pneumonia suspect gram-negative organism, POA -Sepsis secondary to pneumonia, POA -Acute hypoxic respiratory failure, causing respiratory distress requiring ventilator support, extubated on March 29, POA -Acute delirium and Toxic metabolic encephalopathy, POA, uncontrolled -Recent Acute stroke possibly embolic in the left occipital lobe and left occipitoparietal junction infarct -Acute non-ST elevation [place], POA -COPD in an ex-smoker, -end-stage kidney disease on peritoneal dialysis, - hypertensive heart disease, -Paroxysmal atrial flutter atrial fibrillation uncontrolled., - chronic rheumatoid arthritis, - hyperlipidemia, - mineral bone disease from chronic kidney disease, - anemia of chronic kidney disease, - secondary pulmonary hypertension, -Bilateral chronic renal artery stenosis, -chronic congestive heart failure from diastolic dysfunction EF 55-60%. - acute intraparenchymal hemorrhage in the right mid cerebral hemisphere on February 03 requiring transfer to [facility], -Code full Plan: This is on by mouth amiodarone, eliquis, IV meropenem, off levo fed. Heart rate remains uncontrolled and blood pressures fluctuating. Prognosis guarded.
[2019-03-30 17:52] LABS: Glucose,Whole Blood 110 mg/dL (75-99)
[2019-03-30] MEDS: ATORVASTATIN 80 MG TAB PO SCH (20:14)
[2019-03-31 00:06] LABS: Glucose,Whole Blood 152 mg/dL (75-99)
[2019-03-31] MEDS: HYDROmorphone 0.5 MG/0.5 ML SYRINGE IVP PRN ×4 (00:26→21:03)
[2019-03-31] MEDS: MEROPENEM 500 MG in SODIUM CHLORIDE 0.9% 100 ML IVPB SCH ×2 (03:26→16:21)
[2019-03-31] MEDS: IPRATROPIUM-ALBUTEROL 3 ML NEB INHALATION SCH ×5 (04:24→19:31)
[2019-03-31 04:35] LABS: Anisocytosis Slight; Basophils # (A) 0.2 k/uL (0-0.2); Basophils % (A) 1 %; Eosinophils # (A) 0.1 k/uL (0-0.7); Eosinophils % (A) 0 %; HCT 26.3 % (34.0-46.0); HGB 7.9 gm/dL (11.4-16.0); Hypochromasia Slight; Lymphocytes # (A) 0.3 k/uL (1.0-4.8); Lymphocytes % (A) 2 %; MCH 31.5 pg (25.0-35.0); MCHC 30.1 g/dL (31.0-37.0); MCV 104.8 fL (80.0-100.0); Macrocytosis Moderate; Mean Platelet Volume 8.3; Monocytes # (A) 0.8 k/uL (0-1.0); Monocytes % (A) 5 %; Neutrophils # (A) 13.3 k/uL (1.3-7.7); Neutrophils % (A) 89 %; Platelet Count 164 k/uL (150-450); RBC 2.51 m/uL (3.80-5.40); RDW 17.5 % (11.5-15.5)
[2019-03-31 04:51] LABS: Calcium 7.4 mg/dL (8.4-10.2); Potassium 3.2 mmol/L (3.5-5.1)
[2019-03-31] MEDS: DIALYSIS (PERIT 2.5%) 2,500 ML 62.5 G/2,500 ML BAG INTRAPERIT SCH ×2 (06:08→12:46)
[2019-03-31 06:21] LABS: Glucose,Whole Blood 136 mg/dL (75-99)
[2019-03-31] MEDS: MIDODRINE 5 MG TAB PO SCH ×3 (06:38→18:46)
[2019-03-31] MEDS ORDERED: Potassium Replacement Protocol 1 EACH MISC MISCELLANE PRN (06:39)
--- NOTE | 2019-03-31 07:23 | P.PN ---
Subjective Progress Note Date: 03/31/19 Principal diagnosis: Acute non-ST patient myocardial infarction This is a pleasant 73-year-old female patient with a past medical history significant for long-standing persistent atrial fibrillation, end stage renal disease on peritoneal dialysis, chronic obstructive pulmonary disease, as well as multiple comorbid conditions including carotid disease, was admitted to the hospital with acute hypoxic respiratory failure secondary to multilobar pneumonia. The patient was intubated and currently she is on mechanical ventilation. We involved in the care of the patient for the management of atrial fibrillation as well as abnormal troponin which was above 2. We recommended conservative medical approach. Initially the patient was weaned off the vasopressors but she was started back on vasopressors yesterday. The limited echocardiogram was performed and revealed normal LV function with EF around 50-55%. I did see the patient today March [id number], the patient was extubated the day before yesterday. She remains hemodynamically stable beside the heart rate which is slightly on the upper side. When she was seen this morning she was having peritoneal dialysis. I would wait until after the dialysis, if she continues to be tachycardic I might be increasing the dose of metoprolol to 3 times a day. Meanwhile continue the current medical regimen with amiodarone as well as oral anticoagulation. Objective - Vital Signs Vital signs: Vital Signs Temp 97.5 F L 03/31/19 06:00 Pulse 123 H 03/31/19 06:00 Resp 18 03/31/19 06:00 BP 124/65 03/31/19 06:00 Pulse Ox 98 03/31/19 06:00 Intake & Output 03/30/19 03/31/19 03/31/19 18:59 06:59 18:59 Intake Total 225 124.593 11 Output Total 0 0 0 Balance 225 124.593 11 Weight 57 kg 55.8 kg Intake: IV 125 121 11 0.9 NS Carrier 65 55 5 art line 60 66 6 Intake, IV Titration 100 3.593 Amount Meropenem 500 mg In 100 Sodium Chloride 0.9% 100 ml @ 200 mls/hr IVPB Q12H [facility]ON Rx#:[id number] Norepinephrine 32 mg In 3.593 Sodium Chloride 0.9% 218 ml @ 0.05 MCG/KG/MIN 1. 495 mls/hr IV .Q24H SIMON Rx#:[id number] Output: Urine 0 0 0 Other: # Voids 1 # Bowel Movements 1 ABP, PAP, CO, CI - Last Documented Arterial Blood Pressure 122/65 - Constitutional General appearance: Present: no acute distress - Respiratory Respiratory: bilateral: diminished - Cardiovascular Rhythm: irregularly irregular Heart sounds: normal: S1, S2 - Labs CBC & Chem 7: 03/31/19 04:10 03/31/19 04:10 Labs: Abnormal Lab Results - Last 24 Hours (Table) 03/30/19 03/30/19 03/30/19 Range/Units 11:50 17:41 23:51 WBC (3.8-10.6) k/uL RBC (3.80-5.40) m/uL Hgb (11.4-16.0) gm/dL Hct (34.0-46.0) % MCV (80.0-100.0) fL MCHC (31.0-37.0) g/dL RDW (11.5-15.5) % Neutrophils # (1.3-7.7) k/uL Lymphocytes # (1.0-4.8) k/uL Potassium (3.5-5.1) mmol/L BUN (7-17) mg/dL Creatinine (0.52-1.04) mg/dL Glucose (74-99) mg/dL POC Glucose (mg/dL) 130 H 110 H 152 H (75-99) mg/dL Calcium (8.4-10.2) mg/dL 03/31/19 03/31/19 03/31/19 Range/Units 04:10 04:10 06:19 WBC 15.0 H (3.8-10.6) k/uL RBC 2.51 L (3.80-5.40) m/uL Hgb 7.9 L (11.4-16.0) gm/dL Hct 26.3 L (34.0-46.0) % MCV 104.8 H (80.0-100.0) fL MCHC 30.1 L (31.0-37.0) g/dL RDW 17.5 H (11.5-15.5) % Neutrophils # 13.3 H (1.3-7.7) k/uL Lymphocytes # 0.3 L (1.0-4.8) k/uL Potassium 3.2 L (3.5-5.1) mmol/L BUN 41 H (7-17) mg/dL Creatinine 2.89 H (0.52-1.04) mg/dL Glucose 134 H (74-99) mg/dL POC Glucose (mg/dL) 136 H (75-99) mg/dL Calcium 7.4 L (8.4-10.2) mg/dL Microbiology - Last 24 Hours (Table) 03/25/19 11:15 Blood Culture - Preliminary Blood No Growth after 120 hours 03/25/19 11:05 Gram Stain - Final Sputum Sputum Culture - Final Escherichia coli Assessment and Plan Assessment: Assessment #1 multilobe pneumonia #2 sepsis secondary to the above #3 acute non-ST deviation myocardial infarction #4 long-standing persistent atrial fibrillation #5 chronic obstructive pulmonary disease #6 carotid disease Plan #1 continue the current medical regimen #2 possible increase the dose of metoprolol to 3 times a day if the blood pressure allow #3 continue oral anticoagulation #4 follow-up the patient
[2019-03-31] MEDS: POTASSIUM CHLORIDE 20 MEQ in WATER FOR INJECTION 1 100ML.BAG IVPB SCH ×2 (07:32→08:13)
--- NOTE | 2019-03-31 07:32 | XR ---
EXAMINATION TYPE: XR chest 1V portable DATE OF EXAM: 03/31/2019 HISTORY: Shortness of breath. COMPARISON: 03/30/2019 TECHNIQUE: Single view of the chest is submitted. FINDINGS: Demonstrated are scattered senescent parenchymal change. Right subclavian line is unchanged in posit ion. Masslike opacity right upper lobe and more confluent infiltrate right lower lobe persist. Correlate f or pneumonia. Infiltrate of other etiology not excluded. The heart is stable. Hilar and mediastinal structures are within normal limits. Degenerative changes are seen of the dorsal spine. IMPRESSION: 1. Masslike opacity right upper lobe and more confluent infiltrate right lower lobe persist. Correla te for pneumonia. Infiltrate of other etiology not excluded.
[2019-03-31] MEDS: CLOPIDOGREL 75 MG TAB PO SCH (08:03)
[2019-03-31] MEDS: PANTOPRAZOLE 40 MG/10 ML VIAL IV SCH (08:03)
[2019-03-31] MEDS: APIXABAN 2.5 MG TABLET PO SCH ×2 (08:04→21:03)
[2019-03-31] MEDS: AMIODARONE 200 MG TAB PO SCH ×2 (08:04→21:02)
[2019-03-31] MEDS: METOPROLOL TARTRATE 25 MG TAB PO SCH ×2 (08:05→21:03)
[2019-03-31] MEDS ORDERED: POTASSIUM BICARBONATE/CIT AC 20 MEQ TABLET.EFF NG-TUBE SCH ×2 (09:00)
[2019-03-31 11:48] LABS: Glucose,Whole Blood 157 mg/dL (75-99)
--- NOTE | 2019-03-31 12:35 | P.PN ---
Subjective Progress Note Date: 03/31/19 Principal diagnosis: Acute hypoxic respiratory failure secondary to multilobar pneumonia, possibly hospital acquired. Could also be aspiration pneumonia. This is a 71-year-old female patient, with multiple medical problems and comorbidities. The patient came into the emergency department today with complaints of shortness of breath. She was very weak and she was in respiratory failure. The patient was intubated in the emergency department as the patient was diagnosed having a multilobar right lung pneumonia. The patient was brought into the intensive care unit intubated on a mechanical ventilator. She has already received a dose of cefepime. This patient has extensive history. 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 Subsequently the patient presented back into the hospital for difficulties with vision and the patient was diagnosed having an acute to subacute ischemic stroke involving the left occipital lobe and the left occipitoparietal junction. 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 She was also found to have a right ICA stenosis just above 70%. She has vascular dementia. In addition to that she has end- stage renal disease and she is on peritoneal dialysis. She suffers from chronic atrial fibrillation and anticoagulants. She has hypertension, COPD with a baseline FEV1 of 42% of predicted, diastolic heart failure, hypertension, and rheumatoid arthritis in addition to chronic anemia and hyperlipidemia. The patient has had multiple hospitalizations most recent of which was approximately 10 days ago. Currently she is sedated with propofol and she is calm and comfortable. She has received a total of 2 L of IV fluids. She is currently on assist control mode of ventilation at the rate of 16 him a tidal volume of 450, FiO2 of 50% with a PEEP of 5. She is in atrial fibrillation. She is on norepinephrine infusion running at 0.075 g per KG per minute. She has a triple-lumen catheter in the right subclavian. She had an abnormal UA with a white cell count of more than 182 with many bacteria and white cell clumps. Her white cell count is 22.8. Her creatinine is at 5.6 with a mean of 63. The patient's sodium is at 130. Lactic acid level is at 2.6. The patient's echocardiogram showed ejection fraction of 50-55%. Today's evaluation of 03/26/2019 I'm seeing this patient for a follow-up. The patient remains sedated with propofol which is currently running at 25 g per KG per minute. She is was sedated and she is calm and comfortable. She remains on a mechanical ventilator. She is an assist-control mode at the rate of 40 with a tidal volume of 450 and FiO2 of 40% with a PEEP of 5. Her chest x-ray showed a right upper and right perihilar pneumonia and today's chest x-ray shows improvement in the right lower lobe pneumonia and she still has a consolidation in the right upper lobe. ET tube is in a good location. She has a triple-lumen catheter in place. No significant orotracheal secretions and cultures are still pending for now. Meanwhile, the patient was covered with a combination of Zosyn and vancomycin. Her blood pressures improved. She remains in atrial fibrillation. On today's evaluation, she was weaned off the Levothroid earlier this morning and levo fed was discontinued probably 30 minutes ago. She does not make much urine. She undergoes peritoneal dialysis. Peritoneal fluid was also sent for cultures. The patient is receiving IV fluid rate of 100 mL an hour. She is afebrile. White cell count remains elevated. There has been drop in hemoglobin down to 8.8, however there is no signs of any acute bleeding. BUN is at 54, creatinine is at 3.6, lactic acid level is down to 3.1. The blood gases from today showed a pH of 7.32 with a pCO2 of 34 and pO2 of 191 and this was done and FiO2 of 50% and accordingly the FiO2 has been drop down to 40%. On 03/27/2019, I'm seeing this patient for a follow-up. The patient had a very busy day yesterday where she was taken off the sedation and mental status was monitored for a total of 3 hours while her being off the propofol. We will check in on her periodically in with did not feel that the patient was alert nor she regained back her alertness during this 3 hour sedation holiday. Upon stimulation, she would bite on the tube and based on that day tube bite block was inserted. No seizure activity was noted. I sent this patient for a CAT scan of the brain and the CAT scan essentially showed old findings which included cerebral atrophy, an old cortical infarct measuring 3 x 2 cm in size in the right was treated frontal lobe. There was also periventricular white matter disease and 4 cm hypodense area in the left occipital lobe related to old infarct. There was no evidence of any acute bleeding. This morning, the patient remains sedated with propofol which is currently running at 30 g per KG per minute. She is calm and comfortable. She withdraws to deep painful stimulation. She remains in atrial fibrillation. Rate is controlled for now. She is on no anticoagulation based on the fact that the patient has had any sensory cerebellar bleed. She remains on a mechanical ventilator on assist control mode at the rate of 14 with a tidal volume of 450 and the rate of 14 with an FiO2 of 40% and a PEEP of 5. The blood gases from today showed a pH of 7.47 with a pCO2 of 31 and a pO2 of 150 and this was on FiO2 of 40% and a chest x-ray from today showed persistent consolidation of the right upper lobe and there was a right upper lobe airspace disease in addition to development of some left-sided airspace disease. The patient's sputum is showing gram-negative bacillus. Final cultures and sensitivities are still pending. Meanwhile, the p atient is still on a combination of Zosyn and vancomycin. No significant orotracheal secretions. No pressors. The patient undergoing periodic peritoneal dialysis. We have noted a drop in hemoglobin down to 7.5. She is on Aranesp. No signs of any external bleeding at this point in time. She remains nothing by mouth. Patient was reevaluated on 03/28/2019, remains in the intensive care unit, intubated, mechanically ventilated. Her ventilator settings are assist control rate of 14 tidal volume 450 FiO2 40% and PEEP of 5. Patient is on propofol at 25 mcg/kg/m, and she is on norepinephrine at 0.01 mcg/kg/m. I plan to give the patient is sedation holiday and addressed mental status today. Apparently she was biting on the tube yesterday as per Dr. Parmar's note. Patient is presently calm, withdraws to deep painful stimulation. And she remains in atrial fibrillation. But rate seems to be fairly well controlled. Patient remains on periodic peritoneal dialysis. ABG today showed a pO2 of 171 pCO2 of 35 pH of 7.48, hence FiO2 was cut down to 35%. WBC count is 25.1 hemoglobin is 7.7 platelets are 96,000. Electrolytes showed low potassium of 3.3 BUN is 44 creatinine 3.13. Chest x-ray showed multifocal opacities compatible with multifocal pneumonia and minimal left basilar atelectasis. Sputum cultures have been positive mostly for E. coli./ESBL, hence we'll switch the patient to Merrem. Reevaluated today on 03/29/2019, patient remains in the ICU, intubated, mechanically ventilated. Her ventilator settings today are assist control rate of 14 tidal volume of 450 FiO2 35% and PEEP of 5. No drips at present, patient is only on 0.9 normal saline. She is off pressors. Remains on antibiotics in the form of Merrem. Chest x-ray continues to show significant bilateral airspace disease. Underlying neoplasm in the right upper lobe is not entirely ruled out. ABG today showed a pO2 of 145 pCO2 of 33 pH of 7.51. CBC showed leukocytosis with WBC count of 18.4 hemoglobin is 7.5. Basic metabolic profile is normal potassium is a bit low at 3.4 BUN is 46 creatinine is 2.83, steadily improving compared to creatinine of 5.60 on presentation. This was on 03/25/2019. Patient is now off sedatives and narcotics, she is arousable, opens her eyes, follows very simple instructions like squeezing hands and wiggling toes. Does not maintain a good eye contact. Patient was reevaluated today on 03/30/2019, patient was extubated yesterday uneventfully. She had basically successful extubation, patient is on 2 L nasal cannula. Her overall pulmonary status seems to be improving. However her mental status is questionable. Patient keeps repeating the same words over and over, and she does not follow while all simple instructions. She does wiggle her toes, she seems to have some left upper extremity weakness, she remains in atrial fibrillation and that being addressed by cardiology. She is on oral amiodarone. She is not requiring any vasopressors at this point. Labs were reviewed, WBC is 14.4 hemoglobin is 7.6 electrolytes are normal BUN is 46 creatinine is 2.94. Basically about the same as it was yesterday. Slightly worse her baseline creatinine on admission was 5.6 Patient was reevaluated today on 03/31/2019, remains in the ICU, she was extubated 2 days ago, and continues to tolerate the extubation quite well. Patient is quite confused, has no idea where she is, and she keeps mumbling different words, and does not seem to be oriented to place or person or time. Continues to have left sided hemiparesis. Moves the right side better than the left side. Chest x-ray continues to show significant infiltrate in the right upper lobe and right lower lobe this was not present as of September 16. Hence malignancy is less likely. Labs were reviewed potassium is a bit low, renal profile is abnormal but the patient is on CAPD. Objective - Vital Signs Vital signs: Vital Signs Temp 97.6 F 03/31/19 08:00 Pulse 118 H 03/31/19 11:27 Resp 25 H 03/31/19 10:00 BP 116/77 03/31/19 08:00 Pulse Ox 96 03/31/19 10:00 Intake & Output 03/30/19 03/31/19 03/31/19 18:59 06:59 18:59 Intake Total 225 124.593 122 Output Total 0 0 0 Balance 225 124.593 122 Weight 57 kg 55.8 kg Intake: IV 125 121 22 0.9 NS Carrier 65 55 10 art line 60 66 12 Intake, IV Titration 100 3.593 100 Amount Meropenem 500 mg In 100 Sodium Chloride 0.9% 100 ml @ 200 mls/hr IVPB Q12H [facility] Rx#:[id number] Norepinephrine 32 mg In 3.593 Sodium Chloride 0.9% 218 ml @ 0.05 MCG/KG/MIN 1. 495 mls/hr IV .Q24H [facility] Rx#:[id number] Potassium Chloride 20 meq 100 In Water For Injection 1 100ml.bag @ 50 mls/hr IVPB Q2H [facility]NO Rx#: [id number] Output: Urine 0 0 0 Other: # Voids 1 # Bowel Movements 1 ABP, PAP, CO, CI - Last Documented Arterial Blood Pressure 111/67 - Exam Physical Exam: Revealed a 73-year-old female, on 2 L nasal cannula, in no form of respiratory distress. Confused and disoriented. Head: Atraumatic, normocephalic. HEENT:[Neck is supple.] [No neck masses.] [No thyromegaly.] [No JVD.] PERRLA, EOMI, moist mucous membranes, Chest: [Crackles and rhonchi noted bilaterally, symmetrical chest expansion noted..] Cardiac Exam: [Irregular irregular rhythm Normal S1 and S2, no S3 gallop, no murmur.] Abdomen: [Soft, nontender, no megaly, no rebound, no guarding, normal bowel sounds.] Peritoneal catheter is noted. Unremarkable. Extremities: [No clubbing, no edema, no cyanosis.] Good pulses bilaterally. Atrophy of muscles noted bilaterally. Neurological Exam: Patient is awake, confused, disoriented, and continues to mumble a few words. Sometimes yelling out loud. Psychiatric: Blunted affect, depressed mood, questionable mental status. Skin: No rashes. Lymphatics: No lymphadenopathy. - Labs CBC & Chem 7: 03/31/19 04:10 03/31/19 04:10 Labs: Abnormal Lab Results - Last 24 Hours (Table) 03/30/19 03/30/19 03/31/19 Range/Units 17:41 23:51 04:10 WBC 15.0 H (3.8-10.6) k/uL RBC 2.51 L (3.80-5.40) m/uL Hgb 7.9 L (11.4-16.0) gm/dL Hct 26.3 L (34.0-46.0) % MCV 104.8 H (80.0-100.0) fL MCHC 30.1 L (31.0-37.0) g/dL RDW 17.5 H (11.5-15.5) % Neutrophils # 13.3 H (1.3-7.7) k/uL Lymphocytes # 0.3 L (1.0-4.8) k/uL Potassium (3.5-5.1) mmol/L BUN (7-17) mg/dL Creatinine (0.52-1.04) mg/dL Glucose (74-99) mg/dL POC Glucose (mg/dL) 110 H 152 H (75-99) mg/dL Calcium (8.4-10.2) mg/dL 03/31/19 03/31/19 03/31/19 Range/Units 04:10 06:19 11:46 WBC (3.8-10.6) k/uL RBC (3.80-5.40) m/uL Hgb (11.4-16.0) gm/dL Hct (34.0-46.0) % MCV (80.0-100.0) fL MCHC (31.0-37.0) g/dL RDW (11.5-15.5) % Neutrophils # (1.3-7.7) k/uL Lymphocytes # (1.0-4.8) k/uL Potassium 3.2 L (3.5-5.1) mmol/L BUN 41 H (7-17) mg/dL Creatinine 2.89 H (0.52-1.04) mg/dL Glucose 134 H (74-99) mg/dL POC Glucose (mg/dL) 136 H 157 H (75-99) mg/dL Calcium 7.4 L (8.4-10.2) mg/dL Microbiology - Last 24 Hours (Table) 03/25/19 11:15 Blood Culture - Preliminary Blood No Growth after 120 hours 03/25/19 11:05 Gram Stain - Final Sputum Sputum Culture - Final Escherichia coli Assessment and Plan Assessment: Impression: 1 acute on chronic hypoxic respiratory failure secondary to multilobar pneumonia secondary to ESBL E. coli. And secondary to underlying COPD 2 acute sepsis and septic shock, resolved. 3 end-stage renal disease, patient is on peritoneal dialysis 4 acute non-ST elevation myocardial infarction 5 severe COPD FEV1 in the range of 42% of predicted. 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 15 successful extubation on 03/29/2019. Recommendation: Continue antibiotics and bronchodilators. Patient passes swallow evaluation today. Hence we will feed as per the speech pathology recommendations. Continue GI and DVT prophylaxis. Patient will definitely needs placement in ECF considering her overall neurological status. Long-term prognosis remains extremely poor and guarded. I believe the CODE STATUS needs to be addressed with the once he is available. Long-term prognosis is extremely poor. We will continue to monitor in the ICU for one more day, and possibly transfer out of the ICU tomorrow. We will continue to follow. Time with Patient: Less than 30
--- NOTE | 2019-03-31 18:11 | P.PN ---
Progress Note - Text Progress Note Date: 03/31/19 Chief Complaint: Short of breath Interval history: This is a 73-year-old patient with extensive medical history as chronic stable medical conditions include COPD, end-stage kidney disease on peritoneal dialysis, hypertensive heart disease, proximal atrial fibrillation, chronic rheumatoid arthritis, hyperlipidemia, mineral bone disease from chronic kidney disease, anemia of chronic kidney disease, secondary pulmonary hypertension, lateral chronic renal artery stenosis, chronic congestive heart failure from diastolic dysfunction EF 55-60%. Patient also had acute intraparenchymal hemorrhage in the right mid cerebral hemisphere on February 03 requiring transfer to [facility],. Patientis currently a resident of [facility] [place]. Patient was recently the hospital from March 08 through March 11. Presented with unable to see. Computed tomography scan of the brain did confirm a acute left occipital lobe and acute occipitoparietal junction infarct. Patient presents from the [facility]. Increasing short of breath. As per the patient oral intake for last couple of days at gone down. Feeling more and more tired. Diagnosed pneumonia in the ER. Probably right side. Went into respiratory distress she had to be intubated. Admitted to the ICU. Patient was extubated on March 29. She had been on pressors. IV antibiotics. Has remained in atrial fibrillation with a variable rate. Blood pressures been fluctuating. Today-in the ICU. Still remains a delirious. Speaking out at times. Eating some. Tired. Small amounts at the bedside.. Review of systems cannot be done. Patient delirious Active Medications Albuterol/Ipratropium (Duoneb 0.5 Mg-3 Mg/3 Ml Soln) 3 ml INHALATION RT-Q4H ON LICENSE OF [facility] Last Admin: 03/31/19 15:39 Dose: 3 ml Documented by: Albuterol/Ipratropium (Duoneb 0.5 Mg-3 Mg/3 Ml Soln) 3 ml INHALATION RT-Q2H PRN PRN Reason: Shortness Of Breath Or Wheezing Amiodarone HCl (Cordarone) 400 mg PO BID ON LICENSE OF [facility] Last Admin: 03/31/19 08:04 Dose: 400 mg Documented by: Apixaban (Eliquis) 2.5 mg PO BID ON LICENSE OF [facility] Last Admin: 03/31/19 08:04 Dose: 2.5 mg Documented by: Atorvastatin Calcium (Lipitor) 80 mg PO HS ON LICENSE OF [facility] Last Admin: 03/30/19 20:14 Dose: 80 mg Documented by: Clopidogrel Bisulfate (Plavix) 75 mg PO DAILY ON LICENSE OF [facility] Last Admin: 03/31/19 08:03 Dose: 75 mg Documented by: Darbepoetin Zhou (Aranesp) 60 mcg SQ Q7D ON LICENSE OF [facility] Last Admin: 03/26/19 15:51 Dose: 60 mcg Documented by: Hydromorphone HCl (Dilaudid) 0.5 mg IVP Q2HR PRN PRN Reason: Pain Scale 4 to 5 Last Admin: 03/31/19 15:31 Dose: 0.5 mg Documented by: Norepinephrine Bitartrate 32 (mg/ Sodium Chloride) 250 mls @ 1.495 mls/hr IV .Q24H ON LICENSE OF [facility]; Protocol Last Titration: 03/31/19 04:40 Dose: 0 mcg/kg/min, 0 mls/hr Documented by: Propofol 1,000 mg/ IV Solution 100 mls @ 0 mls/hr IV .Q0M ON LICENSE OF [facility]; Protocol Last Titration: 03/29/19 07:45 Dose: 0 mcg/kg/min, 0 mls/hr Documented by: Meropenem 500 mg/ Sodium (Chloride) 100 mls @ 200 mls/hr IVPB Q12H ON LICENSE OF [facility] Last Admin: 03/31/19 16:21 Dose: 200 mls/hr Documented by: Peritoneal Dialysis Solution (Delflex With 1.5% Dextrose (2,500 Ml)) 37.5 g in 2,500 mls @ 0 mls/hr INTRAPERIT Q12H ON LICENSE OF [facility]; Protocol Peritoneal Dialysis Solution (Delflex With 2.5% Dextrose (2,500 Ml)) 62.5 g in 2,500 mls @ 0 mls/hr INTRAPERIT Q12H ON LICENSE OF [facility]; Protocol Metoprolol Tartrate (Lopressor) 25 mg PO BID ON LICENSE OF [facility] Last Admin: 03/31/19 08:05 Dose: 25 mg Documented by: Midodrine (Proamatine) 10 mg PO AC-TID ON LICENSE OF [facility] Last Admin: 03/31/19 12:31 Dose: 10 mg Documented by: Miscellaneous Information (Potassium Per Protocol) 1 each MISCELLANE DAILY PRN; Protocol PRN Reason: Per Protocol Naloxone HCl (Narcan) 0.2 mg IV Q2M PRN PRN Reason: Opioid Reversal Pantoprazole Sodium (Protonix) 40 mg IV DAILY ON LICENSE OF [facility] Last Admin: 03/31/19 08:03 Dose: 40 mg Documented by: Physical examination: VITAL SIGNS: 97.8, 56, 20, 89/50, 95% room air GENERAL: Laying in bed, lethargic but arousable. Sometimes will speak out words EYES: Pupils equal. Conjunctiva normal. HEENT: External appearance of nose and ears normal, oral cavity grossly normal. NECK: JVD unable to assess; masses not palpable. HEART: Heart sounds irregular; no edema. LUNGS: Respiratory rate increased; decreased breath sound. ABDOMEN: Soft, PT catheter in place, nontender, liver spleen not palpable, no masses palpable. PSYCH: Unable to assess, delirious NEUROLOGICAL: Pupils equal, spontaneous movement of limbs. Not really following commands. INVESTIGATIONS, reviewed in the clinical context: White count 14.4 hemoglobin 7.6 platelets 129 progression 3.7 bun 46 creatinine 2.94 Chest x-ray film personally reviewed by [id number] infiltrates Previous testing White count 8 hemoglobin 8 platelets 259 progression 3.9 Previous testing White count 22.8 hemoglobin 11 sodium 1:30 progression 5.1 bun 63 creatinine 5.6 Troponin I 2.0 albumin 2.7 EKG tracing personally reviewed by me-shows diffuse ST segment changes Chest x-ray film personally reviewed by me-diffuse right-sided infiltrates Computed tomography scan brain-old infarct in the right frontal lobe and left occipital lobe extensive background nonspecific white matter changes. No acute otherwise. Sputum showing E. coli, blood culture, negative. Peritoneal fluid, negative 2-D echo-EF 55-60% Assessment: -Right-sided multilobar pneumonia suspect gram-negative organism, POA -Sepsis secondary to pneumonia, POA -Acute hypoxic respiratory failure, causing respiratory distress requiring ventilator support, extubated on March 29, POA -Acute delirium and Toxic metabolic encephalopathy, POA, uncontrolled -Recent Acute stroke possibly embolic in the left occipital lobe and left occipitoparietal junction infarct -Acute non-ST elevation [place], POA -COPD in an ex-smoker, -end-stage kidney disease on peritoneal dialysis, - hypertensive heart disease, -Paroxysmal atrial flutter atrial fibrillation uncontrolled., - chronic rheumatoid arthritis, - hyperlipidemia, - mineral bone disease from chronic kidney disease, - anemia of chronic kidney disease, - secondary pulmonary hypertension, -Bilateral chronic renal artery stenosis, -chronic congestive heart failure from diastolic dysfunction EF 55-60%. - acute intraparenchymal hemorrhage in the right mid cerebral hemisphere on February 03 requiring transfer to [facility], -DO NOT RESUSCITATE Plan: Continue current medication treatment plan. Feeding with assistance. Prognosis not good. Advanced care planning: Spoke to patient's and the ICU. Did describe patient's overall clinical situation. He does understand the patient is [id number] is very compromised. She is not really able to correspond with the surroundings. She is rather uncomfortable. Eating limited about. Blood pressures been fluctuating. Did talk about possible hospice. He said he was called to speak to his daughter was in [place]. Other questions were answered. Did have him have his daughter come up here and see the patient. Later was called. At the decided about getting hospice consult. Hospice was consulted for informational visit. Hoping for patient to go back to her ECF with hospice. Supple feeding to continue. Total time spent for this was about 25 minutes
[2019-03-31] MEDS: DIALYSIS (PERIT 1.5%) 2,500 ML 37.5 G/2,500 ML BAG INTRAPERIT SCH (18:55)
--- NOTE | 2019-03-31 19:47 | PN ---
PROGRESS NOTE Patient is seen for followup for end-stage renal disease. She was mildly volume- overloaded yesterday and PD fluid exchanges were changed to 2.5% solution. The patient has had about 400 to 500 mL of ultrafiltration with each exchange. This morning her blood pressure was noted to be low, and a dose of midodrine was administered. PHYSICAL EXAMINATION: This morning blood pressure was 90/60, heart rate about 105 per minute. Patient is afebrile. EXAMINATION OF THE HEART: S1 and S2. EXAMINATION OF LUNGS: Decreased breath sounds at bases. ABDOMEN: Soft, non-tender. Examination of lower extremities shows no evidence of edema. Patient has left hemiparesis. LABS: Hemoglobin 7.9, sodium 138, potassium 3.2, BUN 41, creatinine 2.89. ASSESSMENT: 1. End-stage renal disease, on peritoneal dialysis. I will change the PD fluid to 1.5% solution alternating with 2.5%. We will hold the noon exchange for now. Continue with midodrine. 2. Mild volume overload, currently improved. 3. Atrial fibrillation, maintained on amiodarone and Eliquis. 4. Anemia of chronic disease, maintained on Aranesp. 5. Sepsis, most likely from pneumonia. Sputum culture grew E coli. Patient is maintained on antibiotics. 6. Hypoxic respiratory failure, status post extubation. 7. Cerebrovascular accident with right hemiparesis, previous history of cerebellar hemorrhage as well. PLAN: Change PD fluid: Exchange it to 1.5% solution alternating with 2.5% solutions. If she remains hypotensive, we will maintain all 1.5% solutions. Continue with the midodrine for low blood pressure. MMODL / IJN: [id number] /
[2019-03-31] MEDS: ATORVASTATIN 80 MG TAB PO SCH (21:03)
[2019-04-01 00:03] LABS: Glucose,Whole Blood 76 mg/dL (75-99)
[2019-04-01] MEDS: IPRATROPIUM-ALBUTEROL 3 ML NEB INHALATION SCH ×5 (00:22→15:25)
[2019-04-01] MEDS: DIALYSIS (PERIT 2.5%) 2,500 ML 62.5 G/2,500 ML BAG INTRAPERIT SCH ×2 (00:30→13:17)
[2019-04-01] MEDS: MEROPENEM 500 MG in SODIUM CHLORIDE 0.9% 100 ML IVPB SCH (04:27)
[2019-04-01 06:40] VITALS: TEMP 97.6
[2019-04-01] MEDS: DIALYSIS (PERIT 1.5%) 2,500 ML 37.5 G/2,500 ML BAG INTRAPERIT SCH (06:51)
--- NOTE | 2019-04-01 07:30 | P.PN ---
Subjective Progress Note Date: 04/01/19 Principal diagnosis: Acute non-ST patient myocardial infarction This is a pleasant 73-year-old female patient with a past medical history significant for long-standing persistent atrial fibrillation, end stage renal disease on peritoneal dialysis, chronic obstructive pulmonary disease, as well as multiple comorbid conditions including carotid disease, was admitted to the hospital with acute hypoxic respiratory failure secondary to multilobar pneumonia. The patient was intubated and currently she is on mechanical ventilation. We involved in the care of the patient for the management of atrial fibrillation as well as abnormal troponin which was above 2. We recommended conservative medical approach. Initially the patient was weaned off the vasopressors but she was started back on vasopressors yesterday. The limited echocardiogram was performed and revealed normal LV function with EF around 50-55%. On follow-up with the patient today, 04/01/2019, the patient continues to be confused and agitated. Hemodynamically the pressure has been marginally low but the heart rate has been around 100 beats per minutes. She continues to be on amiodarone as well as metoprolol as well as oral anticoagulation. The plan is to transfer the patient to extended care facility for possible hospice later on today. Objective - Vital Signs Vital signs: Vital Signs Temp 97.6 F 04/01/19 04:00 Pulse 120 H 04/01/19 06:00 Resp 12 04/01/19 06:00 BP 82/57 04/01/19 06:00 Pulse Ox 95 04/01/19 06:00 Intake & Output 03/31/19 04/01/19 04/01/19 18:59 06:59 18:59 Intake Total 302 8 Output Total 0 Balance 302 8 Weight 53.4 kg Intake: IV 202 8 0.9 NS Carrier 60 5 Meropenem 1 gm In Sodium 100 Chloride 0.9% 100 ml @ 200 mls/hr IVPB Q8H SIMON Rx#:[id number] art line 42 3 Intake, IV Titration 100 Amount Potassium Chloride 20 meq 100 In Water For Injection 1 100ml.bag @ 50 mls/hr IVPB Q2H [facility] Rx#: [id number] Output: Urine 0 Other: # Voids 0 # Bowel Movements 1 ABP, PAP, CO, CI - Last Documented Arterial Blood Pressure 122/64 - Constitutional General appearance: Present: no acute distress - Respiratory Respiratory: bilateral: diminished - Cardiovascular Rhythm: irregularly irregular Heart sounds: normal: S1, S2 - Labs CBC & Chem 7: 03/31/19 04:10 03/31/19 04:10 Labs: Abnormal Lab Results - Last 24 Hours (Table) 03/31/19 Range/Units 11:46 POC Glucose (mg/dL) 157 H (75-99) mg/dL Microbiology - Last 24 Hours (Table) 03/25/19 11:15 Blood Culture - Final Blood No Growth after 144 hours Assessment and Plan Assessment: Assessment #1 multilobe pneumonia #2 sepsis secondary to the above #3 acute non-ST deviation myocardial infarction #4 long-standing persistent atrial fibrillation #5 chronic obstructive pulmonary disease #6 carotid disease Plan #1 continue the current medical regimen #2 the patient possibly is going to be transferred to extended care facility
[2019-04-01] MEDS: PANTOPRAZOLE 40 MG/10 ML VIAL IV SCH ×2 (08:42→08:57)
[2019-04-01] MEDS: APIXABAN 2.5 MG TABLET PO SCH ×2 (08:42→08:56)
[2019-04-01] MEDS: MIDODRINE 5 MG TAB PO SCH ×3 (08:42→13:18)
[2019-04-01] MEDS: CLOPIDOGREL 75 MG TAB PO SCH ×2 (08:42→08:56)
[2019-04-01] MEDS: AMIODARONE 200 MG TAB PO SCH ×2 (08:42→08:54)
[2019-04-01] MEDS: METOPROLOL TARTRATE 25 MG TAB PO SCH ×2 (08:42→08:56)
[2019-04-01] MEDS ORDERED: LORazepam 2 MG/ML INJ IV PRN (09:53)
[2019-04-01] MEDS ORDERED: MORPHINE SULFATE 4 MG/ML SYRINGE IV PRN (09:53)
[2019-04-01] MEDS ORDERED: MORPHINE SULFATE 2 MG/ML SYRINGE IV PRN (09:53)
[2019-04-01] MEDS ORDERED: MORPHINE SULFATE (100 MG/2 ML) 100 MG in SODIUM CHLORIDE 0.9% 100 ML IV SCH (10:00)
[2019-04-01 13:02] VITALS: BMI 20.2
[2019-04-01 15:27] VITALS: BP 54/42; PULSE 133; RESP 22
--- NOTE | 2019-04-01 19:17 | P.DS ---
Providers Date of admission: 03/25/19 14:49 Expected date of discharge: 04/01/19 Attending physician: Steve Hudson Consults: 03/25/19 14:48 Consult Physician Urgent Consulting Provider: Kaela Vargas Consult Reason/Comments: End-stage renal disease Do you want consulting provider notified?: Yes 03/25/19 14:49 Consult Physician Stat Consulting Provider: Tessy Parmar Consult Reason/Comments: ICU management, ventilator management Do you want consulting provider notified?: Already Contacted 03/25/19 17:44 Consult Physician Routine Consulting Provider: Henry Curry Consult Reason/Comments: ACS Do you want consulting provider notified?: Yes 03/28/19 08:56 Consult Physician Urgent Consulting Provider: Dolly Hall Consult Reason/Comments: Mental status change Do you want consulting provider notified?: Yes Primary care physician: [facility] Hospital Course: Chief Complaint: Short of breath Interval history: This is a 73-year-old patient with extensive medical history as chronic stable medical conditions include COPD, end-stage kidney disease on peritoneal dialysis, hypertensive heart disease, proximal atrial fibrillation, chronic rheumatoid arthritis, hyperlipidemia, mineral bone disease from chronic kidney disease, anemia of chronic kidney disease, secondary pulmonary hypertension, lateral chronic renal artery stenosis, chronic congestive heart failure from diastolic dysfunction EF 55-60%. Patient also had acute intraparenchymal hemorrhage in the right mid cerebral hemisphere on February 03 requiring transfer to [facility],. Patientis currently a resident of [facility] [place]. Patient was recently the hospital from March 08 through March 11. Presented with unable to see. Computed tomography scan of the brain did confirm a acute left occipital lobe and acute occipitoparietal junction infarct. Patient presents from the [facility]. Increasing short of breath. As per the patient oral intake for last couple of days at gone down. Feeling more and more tired. Diagnosed pneumonia in the ER. Probably right side. Went into respiratory distress she had to be intubated. Admitted to the ICU. Patient was extubated on March 29. She had been on pressors. IV antibiotics. Has remained in atrial fibrillation with a variable rate. Blood pressures been fluctuating. Patient continued to be delirious. According well. Yesterday but hospice was consulted for informational visit. Today-patient further deteriorated and patient is being comfortable and patient . and family were present. Consultation: Cardiology associates Dr. Vargas from nephrology Dr. Daugherty from neurology Dr. Glasgow from vascular Dr. Talbot at all from critical care INVESTIGATIONS, White count 14.4 hemoglobin 7.6 platelets 129 progression 3.7 bun 46 creatinine 2.94 Chest x-ray film personally reviewed by [id number] infiltrates Previous testing White count 22.8 hemoglobin 11 sodium 1:30 progression 5.1 bun 63 creatinine 5.6 Troponin I 2.0 albumin 2.7 EKG tracing personally reviewed by me-shows diffuse ST segment changes Chest x-ray film personally reviewed by me-diffuse right-sided infiltrates Computed tomography scan brain-old infarct in the right frontal lobe and left occipital lobe extensive background nonspecific white matter changes. No acute otherwise. Sputum showing E. coli, blood culture, negative. Peritoneal fluid, negative 2-D echo-EF 55-60% Cause of : Pneumonia Assessment: -Right-sided multilobar pneumonia suspect gram-negative organism, POA -Sepsis secondary to pneumonia, POA -Acute hypoxic respiratory failure, causing respiratory distress requiring ventilator support, extubated on March 29, POA -Acute delirium and Toxic metabolic encephalopathy, POA, uncontrolled -Recent Acute stroke possibly embolic in the left occipital lobe and left occipitoparietal junction infarct -Acute non-ST elevation [place], POA -COPD in an ex-smoker, -end-stage kidney disease on peritoneal dialysis, - hypertensive heart disease, -Paroxysmal atrial flutter atrial fibrillation uncontrolled., - chronic rheumatoid arthritis, - hyperlipidemia, - mineral bone disease from chronic kidney disease, - anemia of chronic kidney disease, - secondary pulmonary hypertension, -Bilateral chronic renal artery stenosis, -chronic congestive heart failure from diastolic dysfunction EF 55-60%. - acute intraparenchymal hemorrhage in the right mid cerebral hemisphere on February 03 requiring transfer to [facility], -DO NOT RESUSCITATE Disposition: Patient Plan - Discharge Summary Discharge Rx Participant: No New Discharge Prescriptions: No Action Omeprazole [PriLOSEC] 20 mg PO DAILY Ipratropium-Albuterol Nebulize [Duoneb 0.5 mg-3 mg/3 ml Soln] 3 ml INHALATION RT-Q4H Melatonin 1 mg PO HS Calcium Acetate [PhosLo] 667 mg PO AC-TID Budesonide/Formoterol Fumarate [Symbicort 160-4.5 Mcg Inhaler] 2 puff INHALATION RT-BID Acetaminophen Tab [Tylenol] 650 mg PO TID Aspirin 81 mg PO DAILY #1 chewable Metoprolol Tartrate [Lopressor] 50 mg PO BID tab Clopidogrel [Plavix] 75 mg PO DAILY tab Amiodarone [Cordarone] 200 mg PO DAILY #0 ALPRAZolam [Xanax] 0.25 mg PO Q8H PRN #9 tab PRN Reason: Anxiety Sertraline HCl [Zoloft] 25 mg PO DAILY Atorvastatin [Lipitor] 80 mg PO DAILY@1999 Discharge Medication List Omeprazole [PriLOSEC] 20 mg PO DAILY 12/28/18 [History] Ipratropium-Albuterol Nebulize [Duoneb 0.5 mg-3 mg/3 ml Soln] 3 ml INHALATION RT-Q4H 01/27/19 [History] Budesonide/Formoterol Fumarate [Symbicort 160-4.5 Mcg Inhaler] 2 puff INHALATION RT-BID 02/21/19 [History] Calcium Acetate [PhosLo] 667 mg PO AC-TID 02/21/19 [History] Melatonin 1 mg PO HS 02/21/19 [History] Acetaminophen Tab [Tylenol] 650 mg PO TID 03/08/19 [History] ALPRAZolam [Xanax] 0.25 mg PO Q8H PRN #9 tab 03/11/19 [Rx] Amiodarone [Cordarone] 200 mg PO DAILY #0 03/11/19 [Rx] Aspirin 81 mg PO DAILY #1 chewable 03/11/19 [Rx] Clopidogrel [Plavix] 75 mg PO DAILY tab 03/11/19 [Rx] Metoprolol Tartrate [Lopressor] 50 mg PO BID tab 03/11/19 [Rx] Atorvastatin [Lipitor] 80 mg PO DAILY@199903/25/19 [History] Sertraline HCl [Zoloft] 25 mg PO DAILY 03/25/19 [History] Follow up Appointment(s)/Referral(s): Dayton Hinson DO [Primary Care Provider] - 1-2 days [facility], [NON-STAFF] - As Needed [facility] [NON-STAFF] - As Needed (as needed) Discharge Disposition: - Preliminary Cause of Preliminary Cause of : Pneumonia
== END 2019-04-01 15:29 | disposition expired | DRG 870 ==
LOC: EC 10:15 → 2SICU 14:49
PROVIDERS: ADMIT Hospitalist; ATTEND Hospitalist
PROC: 0BH17EZ Insertion of Endotracheal Airway into Trachea, Via Natural or Artificial Opening (ICD-10-PCS; principal; 2019-03-25)
PROC: 5A1955Z Respiratory Ventilation, Greater than 96 Consecutive Hours (ICD-10-PCS; principal; 2019-03-25)
PROC: 05H533Z Insertion of Infusion Device into Right Subclavian Vein, Percutaneous Approach (ICD-10-PCS; 2019-03-25)
PROC: 02HV33Z Insertion of Infusion Device into Superior Vena Cava, Percutaneous Approach (ICD-10-PCS; 2019-03-25)
PROC: 3E0336Z Introduction of Nutritional Substance into Peripheral Vein, Percutaneous Approach (ICD-10-PCS; 2019-03-25)
PROC: 5A09457 Assistance with Respiratory Ventilation, 24-96 Consecutive Hours, Continuous Positive Airway Pressure (ICD-10-PCS; 2019-03-29)
PROC: 3E1M39Z Irrigation of Peritoneal Cavity using Dialysate, Percutaneous Approach (ICD-10-PCS; 2019-03-29)
DX: A41.51 Sepsis due to Escherichia coli [E. coli] (principal); N18.6 End stage renal disease; J96.21 Acute and chronic respiratory failure with hypoxia; I21.4 Non-ST elevation (NSTEMI) myocardial infarction; R65.21 Severe sepsis with septic shock; J96.01 Acute respiratory failure with hypoxia; J15.5 Pneumonia due to Escherichia coli; G92 Toxic encephalopathy; J44.0 Chronic obstructive pulmonary disease with (acute) lower respiratory infection; J44.1 Chronic obstructive pulmonary disease with (acute) exacerbation; I13.2 Hypertensive heart and chronic kidney disease with heart failure and with stage 5 chronic kidney disease, or end stage renal disease; E87.2 Acidosis; I48.11 Longstanding persistent atrial fibrillation; Z99.11 Dependence on respirator [ventilator] status; I69.354 Hemiplegia and hemiparesis following cerebral infarction affecting left non-dominant side; F05 Delirium due to known physiological condition; F01.51 Vascular dementia, unspecified severity, with behavioral disturbance; I50.32 Chronic diastolic (congestive) heart failure; Z66 Do not resuscitate; Z51.5 Encounter for palliative care; D69.6 Thrombocytopenia, unspecified; E03.9 Hypothyroidism, unspecified; I70.1 Atherosclerosis of renal artery; L89.152 Pressure ulcer of sacral region, stage 2; M06.9 Rheumatoid arthritis, unspecified; E78.5 Hyperlipidemia, unspecified; I27.29 Other secondary pulmonary hypertension; D63.1 Anemia in chronic kidney disease; M89.8X9 Other specified disorders of bone, unspecified site; I25.10 Atherosclerotic heart disease of native coronary artery without angina pectoris; M19.90 Unspecified osteoarthritis, unspecified site; K21.9 Gastro-esophageal reflux disease without esophagitis; F41.9 Anxiety disorder, unspecified; H47.619 Cortical blindness, unspecified side of brain; E87.70 Fluid overload, unspecified; L89.522 Pressure ulcer of left ankle, stage 2; I65.21 Occlusion and stenosis of right carotid artery; E87.6 Hypokalemia; B96.89 Other specified bacterial agents as the cause of diseases classified elsewhere; Z87.01 Personal history of pneumonia (recurrent); Z79.82 Long term (current) use of aspirin; Z79.51 Long term (current) use of inhaled steroids; Z79.02 Long term (current) use of antithrombotics/antiplatelets; Z79.01 Long term (current) use of anticoagulants; Z79.899 Other long term (current) drug therapy; Z90.89 Acquired absence of other organs; Z98.890 Other specified postprocedural states; Z98.818 Other dental procedure status; Z87.891 Personal history of nicotine dependence; Z82.49 Family history of ischemic heart disease and other diseases of the circulatory system; Z99.2 Dependence on renal dialysis
CPT/HCPCS: 31500; 36415; 36556; 36600; 70450; 71045; 80048; 80053; 80202; 81001; 82550; 82805; 83605; 83735; 83880; 84132; 84484; 85025; 85610; 85730; 87040; 87070; 87077; 87086; 87186; 87205; 87324; 89050; 93005; 93308; 94002; 94003; 94640; 94660; 96361; 96365; 96366; 96368; 96374; 99291